=== PATIENT | female | born 1955 | race African-American/Black ===

== ENCOUNTER 2019-10-23 11:31 | Emergency (ER) | payer MEDICARE, SELFPAY ==
--- NOTE | ~2019-10-23 | XR_ITS ---
EXAMINATION: XR chest 2V DATE: 10/23/2019 12:40 INDICATION: Shortness of breath and chest pain. TECHNIQUE: Frontal and lateral views of the chest were obtained. COMPARISON: Chest 2 views 02/18/2019, chest CT 11/13/2018 FINDINGS: Again seen is a 5 mm nodule in right lower lobe, likely benign. There is mild atelectasis i n left lower lung zone. No pleural effusion or pneumothorax. The heart size is normal. There are craven ges of anterior fusion procedure in cervical spine. IMPRESSION: 1. Mild atelectasis in left lower lung zone. Reviewed, dictated and finalized at location A.
--- NOTE | ~2019-10-23 | NM_ITS ---
EXAMINATION: NM lung vent and perfusion DATE: 10/23/2019 14:29 INDICATION: Shortness of breath. TECHNIQUE: The patient breathed 15 mCi xenon-133 for ventilation images. 5.4 mCi Tc-99m MAA was admin istered intravenously for perfusion images. Scintigraphic images of the chest were obtained. COMPARISON: Chest 2 views 10/23/2019, ventilation perfusion scintigraphy 12/12/2018 FINDINGS: The single breath ventilation image demonstrates small defects in the upper lobes and lower lobes. Th ere is a moderate-sized defect in apicoposterior segment left upper lobe. Ventilation washout images show diffuse retention. Perfusion images show small defects in the upper lobes and lower lobes. Ther e is a moderate-sized defect in apicoposterior segment left upper lobe.. ] IMPRESSION: 1. Low probability for pulmonary embolism. Reviewed, dictated and finalized at location A.
[2019-10-23 11:34] VITALS: BP 146/74; PULSE 100; RESP 27; TEMP 36.4; O2SAT 96
--- NOTE | 2019-10-23 11:39 | ECG_ITS ---
Measurements Intervals [place] Rate: 92 P: 54 AR: 146 QRS: 39 QRSD: 88 T: 102 QT: 281 QTc: 348 Interpretive Statements SINUS RHYTHM VENTRICULAR PREMATURE COMPLEX BORDERLINE ST-T WAVE ABNORMALITY- ANT/INF LEADS BASELINE ARTIFACT- I, II, III, AVR, AVL, AVF BORDERLINE ECG Electronically Signed On 10-23-2019 11:48:45 CDT by Simeon Mistry D.O.
--- NOTE | 2019-10-23 11:43 | ED.SOB ---
HPI - SOB/Dyspnea General Chief Complaint: Shortness of Breath/Dyspnea Stated Complaint: chest pain Time Seen by Provider: 10/23/19 11:41 Source: patient Mode of arrival: ambulatory Limitations: no limitations History of Present Illness HPI Narrative: A 64 y/o female presents to the ED with c/o SOB. Pt states that she was getting dressed this morning when she suddenly had CP and was SOB. She used Symbicort and an inhaler with no relief. Pt is on home O2 when needed, but did not use her oxygen today. The CP is resolved in the ED, but she reports slight chest discomfort. She had a similar episode in November and was told it was an asthma attack. She has a PMHx of chronic seasonal allergies, COPD, asthma, and anxiety. Pt notes that her symptoms may be an anxiety attack. MD elicited complaint: shortness of breath Pertinent past history: COPD and asthma Onset (ago): hour(s) (Today) Timing: constant Severity: similar to previous episodes Relieving factors: nothing Known history of: COPD and asthma Associated symptoms: chest pain (Resolved) and other (Chest discomfort) Treatment prior to arrival: bronchodilator Related Data Home Medications Medication Instructions Recorded Confirmed albuterol sulfate 90 mcg/actuation 1 inhalation INHALATION Q4H 07/29/19 aerosol inhaler alprazolam 1 mg tablet 1 mg PO DAILY 07/29/19 budesonide-formoterol HFA 160 2 puff INHALATION Q12H 07/29/19 mcg-4.5 mcg/actuation aerosol inhaler cyclobenzaprine 10 mg tablet 10 mg PO TID 07/29/19 fluticasone propionate 50 1 spray NASAL DAILY 07/29/19 mcg/actuation nasal spray,suspension hydrochlorothiazide 25 mg tablet 25 mg PO DAILY 07/29/19 ibuprofen 800 mg tablet 800 mg PO TID 07/29/19 quinapril 40 mg tablet 40 mg PO DAILY 07/29/19 sertraline 50 mg tablet 50 mg PO DAILY 07/29/19 simvastatin 20 mg tablet 20 mg PO DAILY 07/29/19 ascorbate calcium (vitamin C) 500 500 mg PO DAILY 07/30/19 mg tablet herbal complex no.205 548 mg-558 tablet PO 07/30/19 mg tablet multivitamin 1 tablet PO DAILY 07/30/19 vitamin B complex 1 tablet PO DAILY 07/30/19 Allergies Allergy/AdvReac Type Severity Reaction Status Date / Time Macrolide Antibiotics Allergy Intermediate ITCHING Verified 10/23/19 11:40 amoxicillin Allergy Unknown ukn Verified 10/23/19 11:40 erythromycin base Allergy Unknown unk Verified 10/23/19 11:40 Penicillins Allergy Unknown unk Verified 10/23/19 11:40 Sulfa (Sulfonamide Allergy Unknown unk Verified 10/23/19 11:40 Antibiotics) iohexol Allergy Itching Verified 10/23/19 12:28 [From contrast - CT, X-RAY] Contrast Media Allergy Intermediate ITCHING Uncoded 02/18/19 15:39 NAPROXEN SODIUM Allergy Unknown rash Uncoded 02/18/19 15:39 Review of Systems Review of Systems: All systems reviewed & are unremarkable except as noted in HPI and below Constitutional: Constitutional: Denies chills, Denies fever(s) and Denies weakness Cardiovascular: Cardiovascular: Reports chest pain (Resolved) and Reports other (Chest discomfort) Respiratory: Respiratory: Reports dyspnea Psychiatric: Psychiatric: Reports anxiety PMFSH Past Medical History Medical History (Updated 10/23/19 @ 15:46 by Rosa Johnson MD) Anxiety Arthritis Asthma Bronchitis Chronic back pain Chronic obstructive pulmonary disease DDD (degenerative disc disease) Depression Essential hypertension Fibroids GERD (gastroesophageal reflux disease) Hiatal hernia Hyperlipidemia Hypoxia Ocular hypertension, unspecified eye On home O2 BETTY (obstructive sleep apnea) Post-menopausal Pulmonary embolism without acute cor pulmonale Pulmonary hypertension Seasonal allergies Sleep apnea Surgical History Surgical History (Updated 10/23/19 @ 11:52 by Alondra Cooley) History of cardiac catheterization History of dilatation and curettage History of hysterectomy History of spinal surgery Cervical fusion History of thyroidectomy Goiter removed History of tubal ligat
[2019-10-23 11:47] LABS: Basophils Percent Auto 0.5 % (0.2-1.2); Eosinophils Absolute Auto 0.2 K/mm3 (0-0.3); Eosinophils Percent Auto 2.8 % (0-4.4); Hematocrit 39.9 % (37.0-47.0); Hemoglobin 12.8 g/dL (12.0-15.0); Immature Granulocyte Absolute 0.01 K/mm3 (0.00-0.031); Immature Granulocyte Percent A 0.2 % (0-0.5); Lymphocytes Absolute Auto 2.65 K/mm3 (0.9-3.2); Mean Corpuscular HGB Conc 32.1 g/dl (32-36); Mean Corpuscular Hemoglobin 26.7 pg (26-34); Mean Corpuscular Volume 83.1 fl (80-100); Mean Platelet Volume 9.8 fl (7.4-10.4); Monocytes Absolute Auto 0.4 K/mm3 (0.1-0.6); Monocytes Percent Auto 6.1 % (2.6-8.5); Neutrophils Absolute Auto 2.8 K/mm3 (1.3-6.7); Neutrophils Percent Auto 46.4 % (45.5-73.1); Platelet Count Result 286 k/mm3 (150-375); Red Cell Distribution Width 13.7 % (11.5-14.5)
--- NOTE | 2019-10-23 11:56 | PC.NURSE ---
Called lab to add on Pt PTT INR D-Dimer. Called lab to add on Trop I Baseline BNP.
[2019-10-23 11:58] LABS: Blood Urea Nitrogen 20 mg/dL (7-17); Calcium 10.3 mg/dL (8.4-10.2); Carbon Dioxide 28 mmol/L (22-30); Chloride 99 mmol/L (98-107); Estimated CRCL calculation 44 ml/min; Estimated Glomerular Filt Rate > 60; Glucose 138 mg/dL (65-105); Potassium 3.1 mmol/L (3.4-5.0); Sodium 141 mmol/L (137-145)
[2019-10-23 12:12] LABS: Partial Thromboplastin Time 27.2 SECONDS (22.3-36.8); Prothrombin Time 12.5 Seconds (11.1-14.7)
[2019-10-23 12:15] LABS: D Dimer 0.53 ug/mL (<0.48)
[2019-10-23 12:19] LABS: NT Pro B Type Natriuretic Pept 21 PG/ML (5-100); Troponin I < 0.012 ng/mL (0.000-0.034)
[2019-10-23 12:22] LABS: Base Excess ABG 2.4 mEq/l (+/-2.0); Carboxyhemoglobin 0.3 % THb (0-2.0); Fractional Inspired Oxygen 21 %; HCO3 ABG 25.6 mEq/l (22.0-26.0); Methemoglobin ABG 0.2 %THb (0-1.5); Oxygen Saturation ABG 95.6 % (95.0-100.0); Oxyhemoglobin 94.1 % THb (90.0-100.0); PCO2 ABG 35.3 mmHg (35.0-45.0); PO2 ABG 72.5 mmHg (80.0-100.0); PO2 FiO2 Ratio Arterial Blood 3.45 %; Reduced Hemoglobin 5.4 %THb (0-5.0); Total Hemoglobin 12.8 g/dL (12.0-18.0); pH ABG 7.479 (7.350-7.450)
[2019-10-23 12:23] VITALS: BP 127/74; PULSE 89; RESP 12; O2SAT 96
[2019-10-23 12:23] LABS: Device ROOM AIR; Modified Allen's Test Pass; Site Drawn LEFT RADIAL
[2019-10-23] MEDS: LORAZEPAM INJ 2 MG/ML VIAL 0.5 MG IV PUSH (13:12)
[2019-10-23 15:10] VITALS: PULSE 91; RESP 11; O2SAT 97
[2019-10-23 15:11] LABS: Troponin I < 0.012 ng/mL (0.000-0.034)
== END 2019-10-23 16:11 | disposition home or self-care (01) ==
PROVIDERS: Emergency Provider General Practice; PCP Family Medicine
DX: R06.02 Shortness of breath (principal); J44.9 Chronic obstructive pulmonary disease, unspecified; F41.9 Anxiety disorder, unspecified; M19.90 Unspecified osteoarthritis, unspecified site; F32.9 Major depressive disorder, single episode, unspecified; K21.9 Gastro-esophageal reflux disease without esophagitis; I10 Essential (primary) hypertension; E78.5 Hyperlipidemia, unspecified; Z99.81 Dependence on supplemental oxygen; G47.33 Obstructive sleep apnea (adult) (pediatric); I27.20 Pulmonary hypertension, unspecified; H40.059 Ocular hypertension, unspecified eye; Z98.1 Arthrodesis status; E89.0 Postprocedural hypothyroidism; I49.3 Ventricular premature depolarization; R94.31 Abnormal electrocardiogram [ECG] [EKG]
CPT/HCPCS: 36415; 36600; 71046; 78582; 80048; 82375; 82805; 83050; 83880; 84484; 85025; 85380; 85610; 85730; 93005; 96374; 99284; A9540; A9558; J2060

== ENCOUNTER 2020-01-28 09:35 | Outpatient (CLI) | payer MEDICARE, SELFPAY ==
--- NOTE | ~2020-01-28 | XR_ITS ---
EXAMINATION: XR wrist LT min 3V DATE: 01/28/2020 10:14 INDICATION: Left wrist pain. TECHNIQUE: 4 views of left wrist were obtained. COMPARISON: Left wrist radiographs 12/10/2017 FINDINGS: Bone alignment is normal. No fracture. There is moderate osteoarthritis of triscaphe joint and mild osteoarthritis of first carpometacarpal joint. There is mild osteoarthritis of second throug h fifth metacarpophalangeal joints. IMPRESSION: 1. Stable polyarticular osteoarthritis. Reviewed, dictated and finalized at location A.
[2020-01-28 10:34] LABS: Alanine Aminotransferase 21 U/L (4-35); Albumin Level 4.7 g/dL (3.5-5.1); Alkaline Phosphatase 82 U/L (38-126); Aspartate Amino Transferase 29 U/L (14-36); Bilirubin,Total 0.4 mg/dL (0.2-1.3); Blood Urea Nitrogen 22 mg/dL (7-17); Calcium 9.7 mg/dL (8.4-10.2); Carbon Dioxide 33 mmol/L (22-30); Chloride 101 mmol/L (98-107); Cholesterol 196 mg/dL (0-200); Estimated Glomerular Filt Rate > 60; Glucose 103 mg/dL (65-105); HDL Direct 42 mg/dL; Potassium 3.7 mmol/L (3.4-5.0); Sodium 140 mmol/L (137-145); Triglycerides 139 mg/dL (<150)
[2020-01-28 10:45] LABS: LDL Cholesterol Direct 112 mg/dL
== END 2020-01-28 09:36 | disposition home or self-care (01) ==
LOC: ANHLAB 09:42
PROVIDERS: PCP Family Medicine; Visit Provider Family Medicine
DX: M19.032 Primary osteoarthritis, left wrist (principal); Z13.220 Encounter for screening for lipoid disorders; I10 Essential (primary) hypertension
CPT/HCPCS: 36415; 73110; 80053; 80061

== ENCOUNTER 2020-04-20 12:22 | Outpatient (CLI) | payer MEDICARE, SELFPAY ==
--- NOTE | ~2020-04-20 | DEXA_ITS ---
Bone Density Report Name: Krissy Oneal Age: 64 Sex: Female Ethnicity: Black Date of : 1955 Indication: postmenopausal; asthma or emphysema; hysterectomy; Referring Provider: Micha, Rosibel Lama Study: Bone densitometry was performed. Exam Date: April 20, 2020 Accession number: [id number] Bone Density: Region BMD T-score Z-score Classification AP Spine (L1, L2, L3) 1.129 1.0 2.1 Normal Femoral Neck (Left) 0.811 -0.3 0.3 Normal Total Hip (Left) 1.005 0.5 0.9 Normal Total Hip Bilateral Avg 1.008 0.6 0.9 Normal Femoral Neck (Right) 0.826 -0.2 0.4 Normal Total Hip (Right) 1.010 0.6 0.9 Normal World Health Organization criteria for BMD impression classify patients as: Normal (T-score at or above -1.0), Osteopenia (T-score between -1.0 and -2.5), or Osteoporosis (T-score at or below -2.5). 10-year Fracture Risk: FRAX not reported because: All T-scores for Spine Total, Hip Total, Femoral Neck at or above -1.0 Clinical Information Provided by Patient: Has used the following medications: Vitamin D Has the following medical conditions: Asthma or Emphysema, Hysterectomy Patient maximum height was 62 Menopause Age: 45 No regular weight bearing exercise Drinks caffeinated beverages Onset of menses at age 12 Number of children 2 Impression: The patient has normal bone mass. Discussion: BONE DENSITY IS ABOVE THE MINIMUM DESIRABLE LEVEL AT ALL SKELETAL SITES TESTED. This patient?s bone mineral density is above the minimum desirable level (T-score -1.0 or better) at all sites measured. The patient should follow a healthful lifestyle (good nutrition with adequate calcium and vitamin D, and appropriate weight-bearing exercise). Follow-Up: Consider repeating this study in 5 years or sooner if there is some new clinical indication. Reported by: ARIELLA on 04/20/2020 12:55:00 PM. Reviewed, dictated and finalized at location AAlina HU
--- NOTE | ~2020-04-20 | MM_ITS ---
EXAMINATION: MM screening [facility] BI w grady HISTORY: Screening TECHNIQUE: Craniocaudal and mediolateral oblique 3-D tomosynthesis images were obtained and synthetic 2-D images were generated. CAD analysis was submitted and interpreted. COMPARISON: Comparison to multiple prior studies sequentially, with oldest reviewed study dated 09/05. BREAST PARENCHYMAL COMPOSITION: There are scattered areas of fibroglandular density. FINDINGS: Stable appearance to bilateral breast masses. There is no evidence of suspicious mass, calc ification, or architectural distortion to suggest malignancy in either breast. There has been no susp icious interval change. IMPRESSION: 1. No mammographic evidence of malignancy. 2. Recommend routine screening mammography in one year. BI-RADS Category 2: Benign finding(s). Reviewed, dictated and finalized at location A.
== END 2020-04-20 12:23 | disposition home or self-care (01) ==
LOC: ANHIMG 12:24
PROVIDERS: PCP Family Medicine; Visit Provider Family Medicine
DX: Z12.31 Encounter for screening mammogram for malignant neoplasm of breast (principal); Z13.820 Encounter for screening for osteoporosis; M81.0 Age-related osteoporosis without current pathological fracture; Z78.0 Asymptomatic menopausal state
CPT/HCPCS: 77063; 77067; 77080

== ENCOUNTER 2020-09-11 12:31 | Emergency (ER) | payer MEDICARE, SELFPAY ==
[2020-09-11] VITALS (17 sets, daily range): BP systolic 111–135; BP diastolic 77–87; PULSE 78–94; RESP 14–31; TEMP 36.4; O2SAT 98–100
--- NOTE | ~2020-09-11 | XR_ITS ---
EXAMINATION: XR chest 1V DATE: 09/11/2020 14:10 INDICATION: Shortness of breath TECHNIQUE: frontal view of the chest was obtained. COMPARISON: Chest radiograph dated 10/23/2019 FINDINGS: The lungs are clear with no focal airspace opacities, pulmonary edema, pleural effusion or pneumothor ax. The cardiomediastinal silhouette is normal. Mild S-shaped curvature of the thoracolumbar spine wi th mild spondylosis. IMPRESSION: 1. No acute cardiopulmonary disease. Reviewed, dictated and finalized at location A. 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
--- NOTE | 2020-09-11 13:14 | ED.GENADULT ---
HPI - General Adult General Chief complaint: Upper Respiratory Infection <Jeanne Duarte PA-C - Last Filed: 09/11/20 15:26> Stated complaint: cough, dizzy <Jeanne Duarte PA-C - Last Filed: 09/11/20 15:26> Time Seen by Provider: 09/11/20 12:44 <Jeanne Duarte PA-C - Last Filed: 09/11/20 15:26> Source: patient <LUZ MARINA Louie Last Filed: 09/11/20 15:26> Mode of arrival: ambulatory <LUZ MARINA Louie Last Filed: 09/11/20 15:26> Limitations: no limitations <LUZ MARINA Louie Last Filed: 09/11/20 15:26> History of Present Illness HPI narrative: 65-year-old female who is here for evaluation of worsening shortness of breath. Started last week and became worse on Saturday. She has a history of asthma and has intermittent oxygen use at home. She states that she has a persistent cough, and is now unable to really walk across her small home without becoming short of breath. She also has loss of taste. Her was recently released from the hospital after having Covid, and her son-in-law is at home being treated for Covid. <Jeanne Duarte PA-C - Last Filed: 09/11/20 15:26> Onset (ago): day(s) <LUZ MARINA Louie Last Filed: 09/11/20 15:26> Associated symptoms: denies other symptoms <LUZ MARINA Louie Last Filed: 09/11/20 15:26> Related Data Home medications: Home Medications Medication Instructions Recorded Confirmed albuterol sulfate 90 mcg/actuation 1 inhalation INHALATION Q4H 07/29/19 01/28/20 aerosol inhaler alprazolam 1 mg tablet 1 mg PO DAILY 07/29/19 01/28/20 cyclobenzaprine 10 mg tablet 10 mg PO TID 07/29/19 01/28/20 fluticasone propionate 50 1 spray NASAL DAILY 07/29/19 01/28/20 mcg/actuation nasal spray,suspension hydrochlorothiazide 25 mg tablet 25 mg PO DAILY 07/29/19 01/28/20 ibuprofen 800 mg tablet 800 mg PO TID 07/29/19 01/28/20 quinapril 40 mg tablet 40 mg PO DAILY 07/29/19 01/28/20 sertraline 50 mg tablet 50 mg PO DAILY 07/29/19 01/28/20 simvastatin 20 mg tablet 20 mg PO DAILY 07/29/19 01/28/20 ascorbate calcium (vitamin C) 500 500 mg PO DAILY 07/30/19 01/28/20 mg tablet herbal complex no.205 548 mg-558 tablet PO 07/30/19 01/28/20 mg tablet multivitamin 1 tablet PO DAILY 07/30/19 01/28/20 vitamin B complex 1 tablet PO DAILY 07/30/19 01/28/20 <Jeanne Duarte PA-C - Last Filed: 09/11/20 15:26> Allergies/adverse reactions: Allergies Allergy/AdvReac Type Severity Reaction Status Date / Time Macrolide Antibiotics Allergy Intermediate ITCHING Verified 09/11/20 13:47 amoxicillin Allergy Unknown ukn Verified 09/11/20 13:47 erythromycin base Allergy Unknown unk Verified 09/11/20 13:47 naproxen Allergy Unknown Rash Verified 09/11/20 13:47 Penicillins Allergy Unknown unk Verified 09/11/20 13:47 Sulfa (Sulfonamide Allergy Unknown unk Verified 09/11/20 13:47 Antibiotics) iohexol Allergy Itching Verified 09/11/20 13:47 [From contrast - CT, X-RAY] Contrast Media Allergy Intermediate ITCHING Uncoded 01/28/20 11:05 <Jeanne Duarte PA-C - Last Filed: 09/11/20 15:26> Review of Systems Review of Systems: All systems reviewed & are unremarkable except as noted in HPI and below <Jeanne Duarte PA-C - Last Filed: 09/11/20 15:26> PMFSH Past Medical History Medical History: Medical History Anxiety Arthritis Asthma Bronchitis Chronic back pain Chronic obstructive pulmonary disease DDD (degenerative disc disease) Depression Essential hypertension Fibroids GERD (gastroesophageal reflux disease) Hiatal hernia Hyperlipidemia Hypoxia Ocular hypertension, unspecified eye On home O2 BETTY (obstructive sleep apnea) Post-menopausal Pulmonary embolism without acute cor pulmonale Pulmonary hypertension Seasonal allergies Sleep apnea <Jeanne Duarte PA-C - Last Filed: 09/11/20 15:26> Surgical History Surgical History: [place]
[2020-09-11] MEDS: ALBUTEROL SULFATE (*SP) AEROSOL 1 PUFF 4 PUFF INHALATION (13:53)
[2020-09-11] MEDS: ALBUTEROL SULFATE (*SP) INHALER 1 PUFF (13:53)
[2020-09-11 14:07] LABS: Basophils Percent Auto 0.4 % (0.2-1.2); Eosinophils Absolute Auto 0.1 K/mm3 (0-0.3); Eosinophils Percent Auto 2.1 % (0-4.4); Hematocrit 38.1 % (37.0-47.0); Hemoglobin 12.6 g/dL (12.0-15.0); Immature Granulocyte Absolute 0.03 K/mm3 (0.00-0.031); Immature Granulocyte Percent A 0.4 % (0-0.5); Lymphocytes Absolute Auto 2.19 K/mm3 (0.9-3.2); Lymphocytes Percent Auto 32.3 % (18.3-44.2); Mean Corpuscular HGB Conc 33.1 g/dl (32-36); Mean Corpuscular Volume 84.7 fl (80-100); Mean Platelet Volume 9.2 fl (7.4-10.4); Monocytes Absolute Auto 0.4 K/mm3 (0.1-0.6); Monocytes Percent Auto 5.9 % (2.6-8.5); Neutrophils Percent Auto 58.9 % (45.5-73.1); Platelet Count Result 302 k/mm3 (150-375); Red Cell Distribution Width 13.4 % (11.5-14.5); White Blood Count 6.8 K/mm3 (4.5-10.0)
[2020-09-11 14:19] LABS: Anion Gap 7 mmol/L (8-16); Blood Urea Nitrogen 14 mg/dL (7-17); Calcium 10.2 mg/dL (8.4-10.2); Carbon Dioxide 30 mmol/L (22-30); Chloride 98 mmol/L (98-107); Estimated CRCL calculation 55 ml/min; Estimated Glomerular Filt Rate > 60; Glucose 107 mg/dL (65-105); Potassium 3.3 mmol/L (3.4-5.0); Sodium 135 mmol/L (137-145)
[2020-09-13 19:18] LABS: SARS-CoV-2 RNA PCR Positive
== END 2020-09-11 16:02 | disposition home or self-care (01) ==
PROVIDERS: Physician Assistant; Emergency Provider General Practice; PCP Family Medicine
DX: U07.1 COVID-19 (principal); J32.9 Chronic sinusitis, unspecified; M19.90 Unspecified osteoarthritis, unspecified site; J44.9 Chronic obstructive pulmonary disease, unspecified; F32.9 Major depressive disorder, single episode, unspecified; F41.9 Anxiety disorder, unspecified; I10 Essential (primary) hypertension; K21.9 Gastro-esophageal reflux disease without esophagitis; E78.5 Hyperlipidemia, unspecified; G47.33 Obstructive sleep apnea (adult) (pediatric); Z86.711 Personal history of pulmonary embolism; H40.059 Ocular hypertension, unspecified eye; I27.20 Pulmonary hypertension, unspecified; Z98.1 Arthrodesis status; Z87.891 Personal history of nicotine dependence
CPT/HCPCS: 36415; 71045; 80048; 85025; 99283; A9270; C9803; U0003; U0005

== ENCOUNTER 2020-10-24 17:30 | Outpatient (CLI) | payer MEDICARE, SELFPAY | END 2020-10-24 17:31 | disposition home or self-care (01) | LOC: ANHCOVIDVC 17:31 | PROVIDERS: PCP Family Medicine | DX: Z23 Encounter for immunization (principal) | CPT/HCPCS: 0001A; 91300 ==

== ENCOUNTER 2020-11-14 17:21 | Outpatient (CLI) | payer MEDICARE, SELFPAY | END 2020-11-14 17:22 | disposition home or self-care (01) | LOC: ANHCOVIDVC 17:21 | PROVIDERS: PCP Family Medicine | DX: Z23 Encounter for immunization (principal) | CPT/HCPCS: 0002A; 91300 ==

== ENCOUNTER 2021-01-01 13:54 | Emergency (ER) | payer MEDICARE, SELFPAY ==
[2021-01-01 13:57] VITALS: BP 131/60; PULSE 97; RESP 16; TEMP 36.7; O2SAT 100
--- NOTE | 2021-01-01 13:58 | ED.EYEPROB ---
HPI - Eye Problem General Chief complaint: Eye Problems Stated complaint: R EYELID REDNESS/SWELLING Time Seen by Provider: 01/01/21 14:04 Source: patient and RN notes reviewed Mode of arrival: ambulatory Limitations: no limitations History of Present Illness HPI Narrative: 65 year old female presents with concern for right upper eyelid swelling. She reports a stye for which she has been using warm moist compresses and OTC stye medication, but the area keeps getting bigger. She denies any vision changes or drainage. She denies fever. MD chief complaint: eye redness Related Data Home Medications Medication Instructions Recorded Confirmed albuterol sulfate 90 mcg/actuation 1 inhalation INHALATION Q4H PRN 07/29/19 01/01/21 aerosol inhaler alprazolam 1 mg tablet 1 mg PO DAILY 07/29/19 01/01/21 cyclobenzaprine 10 mg tablet 10 mg PO TID 07/29/19 01/01/21 fluticasone propionate 50 1 spray NASAL DAILY 07/29/19 01/01/21 mcg/actuation nasal spray,suspension hydrochlorothiazide 25 mg tablet 25 mg PO DAILY 07/29/19 01/01/21 ibuprofen 800 mg tablet 800 mg PO TID 07/29/19 01/01/21 quinapril 40 mg tablet 40 mg PO DAILY 07/29/19 01/01/21 sertraline 50 mg tablet 50 mg PO DAILY 07/29/19 01/01/21 simvastatin 20 mg tablet 20 mg PO DAILY 07/29/19 01/01/21 ascorbate calcium (vitamin C) 500 500 mg PO DAILY 07/30/19 01/01/21 mg tablet multivitamin 1 tablet PO DAILY 07/30/19 01/01/21 vitamin B complex 1 tablet PO DAILY 07/30/19 01/01/21 Allergies Allergy/AdvReac Type Severity Reaction Status Date / Time Macrolide Antibiotics Allergy Intermediate ITCHING Verified 01/01/21 14:01 amoxicillin Allergy Unknown ukn Verified 01/01/21 14:01 erythromycin base Allergy Unknown unk Verified 01/01/21 14:01 naproxen Allergy Unknown Rash Verified 01/01/21 14:01 Penicillins Allergy Unknown unk Verified 01/01/21 14:01 Sulfa (Sulfonamide Allergy Unknown unk Verified 01/01/21 14:01 Antibiotics) iohexol Allergy Itching Verified 01/01/21 14:01 [From contrast - CT, X-RAY] Contrast Media Allergy Intermediate ITCHING Uncoded 01/01/21 14:01 Review of Systems Review of Systems: Narrative: CONSTITUTIONAL: Denies malaise, chills, sweats, or fever. EYES: Denies visual changes or discharge. She reports a stye on her right upper eyelid and eye redness. ENT: Denies rhinorrhea, congestion, sinus pain, otalgia or sore throat. CARDIOVASCULAR: Denies chest pain, palpitations, or edema. RESPIRATORY: Denies cough or dyspnea. SKIN: Denies rash or itching. MUSCULOSKELETAL: Denies myalgia. NEUROLOGIC: Denies headache. All systems reviewed & are unremarkable except as noted in HPI and below PMFSH Past Medical History Medical History Anxiety Arthritis Asthma Bronchitis Chronic back pain Chronic obstructive pulmonary disease DDD (degenerative disc disease) Depression Essential hypertension Fibroids GERD (gastroesophageal reflux disease) Hiatal hernia Hyperlipidemia Hypoxia Ocular hypertension, unspecified eye On home O2 BETTY (obstructive sleep apnea) Post-menopausal Pulmonary embolism without acute cor pulmonale Pulmonary hypertension Seasonal allergies Sleep apnea Surgical History Surgical History History of cardiac catheterization History of dilatation and curettage History of hysterectomy History of spinal surgery Cervical fusion History of thyroidectomy Goiter removed History of tubal ligation Family History Family History Father Family history of malignant neoplasm Mother Family history of kidney disease Social History Social History Years smoked: 30 Smoking status: Former smoker Tobacco type: cigarettes Second hand tobacco smoke exposure: No Smoking end date: 08/12/03 Gender identity (if verbalized by the
== END 2021-01-01 14:30 | disposition home or self-care (01) ==
PROVIDERS: Emergency Provider Nurse Practitioner; PCP Family Medicine
DX: H00.021 Hordeolum internum right upper eyelid (principal); Z87.891 Personal history of nicotine dependence; F41.9 Anxiety disorder, unspecified; M19.90 Unspecified osteoarthritis, unspecified site; J44.9 Chronic obstructive pulmonary disease, unspecified; F32.9 Major depressive disorder, single episode, unspecified; I10 Essential (primary) hypertension; K21.9 Gastro-esophageal reflux disease without esophagitis; E78.5 Hyperlipidemia, unspecified; G47.33 Obstructive sleep apnea (adult) (pediatric); Z86.711 Personal history of pulmonary embolism; Z99.81 Dependence on supplemental oxygen; E89.0 Postprocedural hypothyroidism
CPT/HCPCS: 99213; G0463

== ENCOUNTER 2021-03-07 10:11 | Emergency (ER) | payer MEDICARE, SELFPAY ==
--- NOTE | ~2021-03-07 | XR_ITS ---
XR finger 4th RT min 2V 03/07/2021 10:56 Indication: Right fourth finger pain Procedure: 4 views right fourth finger Comparison: No prior studies for comparison. Findings: There is a minimally displaced fracture dorsal base right fourth distal phalanx. Mild polya rticular osteoarthritis. Mild soft tissue swelling. No foreign bodies. Impression: 1: Minimally displaced fracture dorsal base right fourth distal phalanx. Reviewed, dictated and finalized at location A. Impression: 1: Minimally displaced fracture dorsal base right fourth distal phalanx.
[2021-03-07 10:36] VITALS: BP 123/81; PULSE 65; RESP 16; TEMP 36.2; O2SAT 100
--- NOTE | 2021-03-07 10:50 | ED.UPPEXIN ---
HPI - Extremity Injury (Upper) General Chief Complaint: Extremity Injury, Upper Stated Complaint: INJURED FINGER Time Seen by Provider: 03/07/21 11:28 Source: patient and RN notes reviewed Mode of arrival: ambulatory Limitations: no limitations History of Present Illness HPI narrative: 65-year-old female presents with concern for injury, pain to the fourth digit of the right hand. Reports 1 month ago she hit the finger on a trunk of a car, causing pain. Reports she had pain throughout the month. Reports she had the finger again on Saturday causing more pain and swelling. She reports difficulty bending the finger. She denies intervention. She denies decreased sensation, strength. Reports decreased range of motion. MD complaint: injury to: right and finger Related Data Home Medications Medication Instructions Recorded Confirmed albuterol sulfate 90 mcg/actuation 1 inhalation INHALATION Q4H PRN 07/29/19 01/01/21 aerosol inhaler alprazolam 1 mg tablet 1 mg PO DAILY 07/29/19 01/01/21 cyclobenzaprine 10 mg tablet 10 mg PO TID 07/29/19 01/01/21 fluticasone propionate 50 1 spray NASAL DAILY 07/29/19 01/01/21 mcg/actuation nasal spray,suspension hydrochlorothiazide 25 mg tablet 25 mg PO DAILY 07/29/19 01/01/21 ibuprofen 800 mg tablet 800 mg PO TID 07/29/19 01/01/21 quinapril 40 mg tablet 40 mg PO DAILY 07/29/19 01/01/21 sertraline 50 mg tablet 50 mg PO DAILY 07/29/19 01/01/21 simvastatin 20 mg tablet 20 mg PO DAILY 07/29/19 01/01/21 ascorbate calcium (vitamin C) 500 500 mg PO DAILY 07/30/19 01/01/21 mg tablet multivitamin 1 tablet PO DAILY 07/30/19 01/01/21 vitamin B complex 1 tablet PO DAILY 07/30/19 01/01/21 Allergies Allergy/AdvReac Type Severity Reaction Status Date / Time Macrolide Antibiotics Allergy Intermediate ITCHING Verified 01/01/21 14:01 amoxicillin Allergy Unknown ukn Verified 01/01/21 14:01 erythromycin base Allergy Unknown unk Verified 01/01/21 14:01 naproxen Allergy Unknown Rash Verified 01/01/21 14:01 Penicillins Allergy Unknown unk Verified 05/23/21 14:01 Sulfa (Sulfonamide Allergy Unknown unk Verified 01/01/21 14:01 Antibiotics) iohexol Allergy Itching Verified 01/01/21 14:01 [From contrast - CT, X-RAY] Contrast Media Allergy Intermediate ITCHING Uncoded 01/01/21 14:01 Review of Systems Review of Systems: Narrative: CONSTITUTIONAL: Denies malaise, chills, sweats, or fever. SKIN: Denies abrasions, abrasions MUSCULOSKELETAL: Reports pain, swelling, decreased range of motion to the distal fourth right digit NEUROLOGIC: Denies numbness, weakness All systems reviewed & are unremarkable except as noted in HPI and below PMFSH Past Medical History Medical History Anxiety Arthritis Asthma Bronchitis Chronic back pain Chronic obstructive pulmonary disease DDD (degenerative disc disease) Depression Essential hypertension Fibroids GERD (gastroesophageal reflux disease) Hiatal hernia Hyperlipidemia Hypoxia Ocular hypertension, unspecified eye On home O2 BETTY (obstructive sleep apnea) Post-menopausal Pulmonary embolism without acute cor pulmonale Pulmonary hypertension Seasonal allergies Sleep apnea Surgical History Surgical History History of cardiac catheterization History of dilatation and curettage History of hysterectomy History of spinal surgery Cervical fusion History of thyroidectomy Goiter removed History of tubal ligation Family History Family History Father Family history of malignant neoplasm Mother Family history of kidney disease Social History Social History Years smoked: 30 Smoking status: Former smoker Tobacco type: cigarettes Second hand tobacco smoke exposure: No Smoking end date: 08/12/03 Gender identity (if verbalized by the patie
== END 2021-03-07 11:43 | disposition home or self-care (01) ==
PROVIDERS: Emergency Provider Nurse Practitioner; PCP Family Medicine
DX: S62.634A Displaced fracture of distal phalanx of right ring finger, initial encounter for closed fracture (principal); W22.8XXA Striking against or struck by other objects, initial encounter; Z87.891 Personal history of nicotine dependence; F41.9 Anxiety disorder, unspecified; M19.90 Unspecified osteoarthritis, unspecified site; J44.9 Chronic obstructive pulmonary disease, unspecified; F32.9 Major depressive disorder, single episode, unspecified; I10 Essential (primary) hypertension; K21.9 Gastro-esophageal reflux disease without esophagitis; E78.5 Hyperlipidemia, unspecified; G47.33 Obstructive sleep apnea (adult) (pediatric); Z86.711 Personal history of pulmonary embolism; H40.059 Ocular hypertension, unspecified eye; I27.20 Pulmonary hypertension, unspecified
CPT/HCPCS: 29130; 73140; 99214; G0463

== ENCOUNTER 2021-03-12 13:11 | Emergency (ER) | payer MEDICARE, SELFPAY ==
[2021-03-12 13:14] VITALS: BP 107/76; PULSE 81; RESP 16; TEMP 36.8; O2SAT 100
--- NOTE | 2021-03-12 13:47 | ED.URI ---
HPI - URI/Sore Throat General Chief Complaint: Upper Respiratory Infection Stated Complaint: head congestion/cough Time Seen by Provider: 03/12/21 13:29 Source: patient and RN notes reviewed Mode of arrival: ambulatory Limitations: no limitations History of Present Illness HPI Narrative: Patient presents today complaining of a cough x10 days as been worsening since onset, postnasal drip. Patient believes the cough is worsened due to the postnasal drip. Denies shortness of breath. She does report some mild nasal congestion as well. She has been taking sinus medication as well as nasal spray, which does help her symptoms. History of asthma for which she uses Symbicort. She does have a rescue inhaler, but has not been using it. Denies fever. She has been vaccinated against COVID-19. MD elicited complaint: cough Related Data Home Medications Medication Instructions Recorded Confirmed albuterol sulfate 90 mcg/actuation 1 inhalation INHALATION Q4H PRN 07/29/19 03/12/21 aerosol inhaler alprazolam 1 mg tablet 1 mg PO DAILY 07/29/19 03/12/21 cyclobenzaprine 10 mg tablet 10 mg PO TID 07/29/19 03/12/21 fluticasone propionate 50 1 spray NASAL DAILY 07/29/19 03/12/21 mcg/actuation nasal spray,suspension hydrochlorothiazide 25 mg tablet 25 mg PO DAILY 07/29/19 03/12/21 ibuprofen 800 mg tablet 800 mg PO TID 07/29/19 03/12/21 quinapril 40 mg tablet 40 mg PO DAILY 07/29/19 03/12/21 sertraline 50 mg tablet 50 mg PO DAILY 07/29/19 03/12/21 simvastatin 20 mg tablet 20 mg PO DAILY 07/29/19 03/12/21 ascorbate calcium (vitamin C) 500 500 mg PO DAILY 07/30/19 03/12/21 mg tablet multivitamin 1 tablet PO DAILY 07/30/19 03/12/21 vitamin B complex 1 tablet PO DAILY 07/30/19 03/12/21 Allergies Allergy/AdvReac Type Severity Reaction Status Date / Time Macrolide Antibiotics Allergy Intermediate ITCHING Verified 03/08/21 14:18 amoxicillin Allergy Unknown ukn Verified 03/08/21 14:18 erythromycin base Allergy Unknown unk Verified 03/08/21 14:18 naproxen Allergy Unknown Rash Verified 03/08/21 14:18 Penicillins Allergy Unknown unk Verified 03/08/21 14:18 Sulfa (Sulfonamide Allergy Unknown unk Verified 03/08/21 14:18 Antibiotics) iohexol Allergy Itching Verified 03/08/21 14:18 [From contrast - CT, X-RAY] Contrast Media Allergy Intermediate ITCHING Uncoded 03/08/21 14:18 Review of Systems Review of Systems: CONSTITUTIONAL: Denies body aches, fever, chills, or sweats. EYES: Denies visual changes, redness, or discharge. ENT: Denies rhinorrhea, sore throat, or otalgia. + Congestion, postnasal drip CARDIOVASCULAR: Denies chest pain, palpitations, or edema. RESPIRATORY: Denies dyspnea. + Cough GASTROINTESTINAL: Denies abdominal pain, nausea, vomiting, or diarrhea. GENITOURINARY: Denies dysuria or hematuria. SKIN: Denies rash, itching, or wounds. MUSCULOSKELETAL: Denies back pain, joint pain, or myalgia. NEUROLOGIC: Denies headache, numbness, tingling, or weakness. PSYCH: Denies depression or anxiety. [facility] Past Medical History Medical History (Updated 03/12/21 @ 13:49 by Tressa Winkler, [facility], ) Anxiety Arthritis Asthma Bronchitis Chronic back pain Chronic obstructive pulmonary disease Coughing DDD (degenerative disc disease) Depression Essential hypertension Fibroids GERD (gastroesophageal reflux disease) Hiatal hernia High cholesterol Hyperlipidemia Hypertension Hypoxia Ocular hypertension, unspecified eye On home O2 BETTY (obstructive sleep apnea) Post-menopausal Pulmonary embolism without acute cor pulmonale Pulmonary hypertension Seasonal allergies Sleep apnea Wears glasses Surgical History Surgical History (Updated 03/08/21 @ 14:45 by Justina Baird, RT(R)) History of cardiac catheterization History of dilatation and curettage History of hysterectomy History of sinus surgery History of spinal surgery Cervical fusion History of thyroidectomy Goiter removed History of tubal ligation Family H
== END 2021-03-12 13:49 | disposition home or self-care (01) ==
PROVIDERS: Emergency Provider Nurse Practitioner; PCP Family Medicine
DX: J06.9 Acute upper respiratory infection, unspecified (principal); J45.901 Unspecified asthma with (acute) exacerbation; Z20.822 Contact with and (suspected) exposure to COVID-19; Z87.891 Personal history of nicotine dependence; M19.90 Unspecified osteoarthritis, unspecified site; J44.9 Chronic obstructive pulmonary disease, unspecified; I10 Essential (primary) hypertension; K21.9 Gastro-esophageal reflux disease without esophagitis; E78.00 Pure hypercholesterolemia, unspecified; E78.5 Hyperlipidemia, unspecified; H40.059 Ocular hypertension, unspecified eye; G47.33 Obstructive sleep apnea (adult) (pediatric); Z86.711 Personal history of pulmonary embolism; I27.20 Pulmonary hypertension, unspecified; F41.9 Anxiety disorder, unspecified; F32.9 Major depressive disorder, single episode, unspecified
CPT/HCPCS: 87426; 99213; C9803; G0463

== ENCOUNTER 2021-04-07 11:35 | Outpatient (CLI) | payer MEDICARE, SELFPAY ==
[2021-04-07 12:10] LABS: Basophils Percent Auto 0.7 % (0.2-1.2); Eosinophils Absolute Auto 0.2 K/mm3 (0-0.3); Eosinophils Percent Auto 2.8 % (0-4.4); Hematocrit 38.1 % (37.0-47.0); Hemoglobin 12.1 g/dL (12.0-15.0); Immature Granulocyte Absolute 0.02 K/mm3 (0.00-0.031); Immature Granulocyte Percent A 0.3 % (0-0.5); Lymphocytes Absolute Auto 2.17 K/mm3 (0.9-3.2); Lymphocytes Percent Auto 35.8 % (18.3-44.2); Mean Corpuscular HGB Conc 31.8 g/dl (32-36); Mean Corpuscular Hemoglobin 27.3 pg (26-34); Mean Platelet Volume 9.4 fl (7.4-10.4); Monocytes Absolute Auto 0.5 K/mm3 (0.1-0.6); Monocytes Percent Auto 7.4 % (2.6-8.5); Neutrophils Absolute Auto 3.2 K/mm3 (1.3-6.7); Platelet Count Result 308 k/mm3 (150-375); Red Blood Count 4.43 M/mm3 (4.2-5.4); Red Cell Distribution Width 13.5 % (11.5-14.5); White Blood Count 6.1 K/mm3 (4.5-10.0)
[2021-04-07 12:32] LABS: Alanine Aminotransferase 25 U/L (4-35); Albumin Level 4.8 g/dL (3.5-5.1); Alkaline Phosphatase 78 U/L (38-126); Anion Gap 9 mmol/L (8-16); Aspartate Amino Transferase 33 U/L (14-36); Bilirubin,Total 0.5 mg/dL (0.2-1.3); Blood Urea Nitrogen 17 mg/dL (7-17); Calcium 9.7 mg/dL (8.4-10.2); Carbon Dioxide 30 mmol/L (22-30); Chloride 96 mmol/L (98-107); Estimated Glomerular Filt Rate > 60; Glucose 114 mg/dL (65-110); Lipase 171 U/L (23-300); Potassium 4.2 mmol/L (3.4-5.0); Sodium 135 mmol/L (137-145)
== END 2021-04-07 11:36 | disposition home or self-care (01) ==
PROVIDERS: PCP Family Medicine; Visit Provider Family Medicine
DX: R19.7 Diarrhea, unspecified (principal); R10.13 Epigastric pain
CPT/HCPCS: 36415; 80053; 83690; 85025

== ENCOUNTER 2021-04-08 09:12 | Outpatient (CLI) | payer MEDICARE, SELFPAY | END 2021-04-08 09:13 | disposition home or self-care (01) | PROVIDERS: PCP Family Medicine; Visit Provider Family Medicine | DX: R19.7 Diarrhea, unspecified (principal) | CPT/HCPCS: 87045; 87324; 87427 ==

== ENCOUNTER 2021-04-12 10:28 | Outpatient (CLI) | payer MEDICARE, SELFPAY ==
[2021-04-15 04:48] LABS: H pylori Ag Stool Detected (Not Detected)
== END 2021-04-12 10:29 | disposition home or self-care (01) ==
PROVIDERS: PCP Family Medicine; Visit Provider Nurse Practitioner Family
DX: R76.8 Other specified abnormal immunological findings in serum (principal)
CPT/HCPCS: 87338

== ENCOUNTER 2021-05-18 13:36 | Inpatient (IN) | payer MEDICARE, SELFPAY ==
--- NOTE | ~2021-05-18 | CT_ITS ---
EXAMINATION: CT abdomen pelvis wo con DATE: 05/18/2021 15:25 INDICATION: Abdominal pain TECHNIQUE: Computed tomography (CT) of the abdomen and pelvis was performed without intravenous contr ast. Automated exposure control and iterative reconstruction technique were employed. The dose-length product was 444.48 mGy-cm. COMPARISON: None FINDINGS: Mild discoid atelectasis at the lingula. 7 mm nodule along the basilar left lower lobe. Heart size is normal. No pericardial or pleural effusion. There are a few fluid attenuation lesions, the 2 largest the right hepatic lobe measuring 4.2 cm and 3.2 cm most consistent with hepatic cysts or hemangiomas . There is intra and extra hepatic biliary ductal dilation with common bile duct measuring up to 1.7 cm in maximal diameter. Gallbladder mildly dilated to 3.5 cm in maximal diameter containing greater t west fluid attenuation bile and/or sludge. No pericholecystic inflammatory stranding to suggest acute cholecystitis. Pancreas, spleen, bilateral adrenal glands and kidneys are normal. Bowels including th e appendix are normal. Bladder is normal. The uterus is not identified and has likely been surgically resected. Minimal free fluid in the deep pelvis. No abscess or free intraperitoneal gas. No patholog ically enlarged abdominal or pelvic lymphadenopathy. Mild lumbar levoscoliosis with severe spondylosi s at L4-L5, otherwise mild thoracolumbar spondylosis. IMPRESSION: 1. Intra and extra hepatic biliary ductal dilation of indeterminate etiology. Correlate with liver fu nction tests and consider MRCP for further evaluation. 2. Indeterminate 7 mm nodule at the left lung base. Recommend 6-12 month follow-up low-dose noncontra st chest CT. Reviewed, dictated and finalized at location B. IMPRESSION: 1. Intra and extra hepatic biliary ductal dilation of indeterminate etiology. C orrelate with liver function tests and consider MRCP for further evaluation. 2. Indeterminate 7 mm nodule at the left lung base. Recommend 6-12 month follow -up low-dose noncontrast chest CT.
--- NOTE | ~2021-05-18 | MR_ITS ---
EXAMINATION: MR MRCP wo/w con/w 3D wo ind DATE: 05/19/2021 12:55 INDICATION: Acute pancreatitis. Dilated common duct. TECHNIQUE: Magnetic resonance imaging (MRI) of the abdomen was performed without and with 13 mL Multi Beena intravenous contrast. Sequences included coronal T2-weighted FS FSE, coronal T2-weighted FSE, a xial T1-weighted LAVA, coronal FS FIESTA, axial dual-echo T1-weighted SPGR, coronal lava-FLEX, sagitt al T2-weighted FSE, axial T2-weighted FSE, and axial DWI. Thick-slab T2-weighted FSE images were obta ined for magnetic resonance cholangiopancreatography (MRCP). Maximum intensity projection 3-D reconst ructions of the volumetric data were created by the technologist. Postcontrast sequences included cor onal LAVA-flex and time course of axial T1-weighted LAVA. COMPARISON: CT abdomen and pelvis 05/18/2021, ultrasound 05/19/2021 FINDINGS: ABDOMEN MRI: There are cysts in the liver measuring up to 3.9 cm. There is severe intrahepatic biliar y duct dilatation. The gallbladder is distended and contains sludge. No gallbladder wall thickening. There is extrahepatic biliary duct dilatation. The pancreatic duct is dilated to 6 mm. There is dilat ation of pancreatic duct sidechains. There is a 5 mm cystic lesion in the tail of the pancreas that l ikely communicates with the main duct. There is a 4.0 cm mass at the ampulla. There is an 11 mm cyst in the spleen. The adrenal glands are normal. There are cysts in the kidneys measuring up to 3 mm. Th ere are no dilated loops of bowel. ABDOMEN MRCP: The common duct is dilated to 1.7 cm. No choledocholithiasis. There is a mass in the paula ngs. IMPRESSION: 1. 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 Endoscopy is recommended. 2. 5 mm cystic lesion in the tail of the pancreas. The differential diagnosis includes pseudocyst, in traductal papillary mucinous neoplasm (IPMN), mucinous cystic neoplasm (MCN), serous cystadenoma, and neuroendocrine tumor. Consider abdomen MRI without and with contrast in one year. Reviewed, dictated and finalized at location A. IMPRESSION: 1. 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 Endoscopy is recommended. 2. 5 mm cystic lesion in the tail of the pancreas. The differential diagnosis i ncludes pseudocyst, intraductal papillary mucinous neoplasm (IPMN), mucinous cy stic neoplasm (MCN), serous cystadenoma, and neuroendocrine tumor. Consider abd omen MRI without and with contrast in one year.
--- NOTE | ~2021-05-18 | US_ITS ---
EXAMINATION: US abdomen limited EXAM DATE: 05/19/2021 11:47 INDICATION: Abdominal pain dilated gallbladder. TECHNIQUE: Multiple grayscale and Doppler images of the abdomen right upper quadrant were obtained (b y a technologist who performed the scan) and subsequently reviewed. Correlation is made to 05/18/2021. FINDINGS: Pancreatic body demonstrates mildly dilated pancreatic duct. The head and tail poorly visualized.. T he liver has normal echogenicity and contour. There are 2 liver lesions which are anechoic, consiste nt with cysts, measuring up to 3.8 cm. There is no evidence of intrahepatic biliary duct dilation. Portal venous flow was seen in the hepatopedal, normal direction and has normal Doppler waveform. No right-sided hydronephrosis. Common bile duct measures 18 mm, which is with severely distended. The gallbladder wall is normal in thickness, with expected amount of distention. No sonographic evidence of pericholecystic fluid. Th ere is no cholelithiases. Technologist performing exam reports patient did not demonstrate sonographi c May's sign. Please note that this sign is less reliable in patients who have received pain medi cation. IMPRESSION: Severely distended common bile duct. Mildly dilated pancreatic duct. Correlate with MRCP for possible pancreatic head mass. Reviewed, dictated and finalized at location G. IMPRESSION: Severely distended common bile duct. Mildly dilated pancreatic duct . Correlate with MRCP for possible pancreatic head mass.
[2021-05-18 13:39] VITALS: BP 116/78; PULSE 83; RESP 16; TEMP 36.8; O2SAT 100
[2021-05-18 14:00] LABS: Basophils Percent Auto 0.4 % (0.2-1.2); Eosinophils Absolute Auto 0.1 K/mm3 (0-0.3); Eosinophils Percent Auto 1.3 % (0-4.4); Hematocrit 36.1 % (37.0-47.0); Hemoglobin 11.7 g/dL (12.0-15.0); Immature Granulocyte Absolute 0.02 K/mm3 (0.00-0.031); Immature Granulocyte Percent A 0.3 % (0-0.5); Lymphocytes Absolute Auto 1.62 K/mm3 (0.9-3.2); Lymphocytes Percent Auto 21.8 % (18.3-44.2); Mean Corpuscular HGB Conc 32.4 g/dl (32-36); Mean Corpuscular Hemoglobin 27.3 pg (26-34); Mean Corpuscular Volume 84.1 fl (80-100); Mean Platelet Volume 9.1 fl (7.4-10.4); Monocytes Absolute Auto 0.5 K/mm3 (0.1-0.6); Monocytes Percent Auto 6.7 % (2.6-8.5); Neutrophils Absolute Auto 5.2 K/mm3 (1.3-6.7); Neutrophils Percent Auto 69.5 % (45.5-73.1); Platelet Count Result 355 k/mm3 (150-375); Red Blood Count 4.29 M/mm3 (4.2-5.4); Red Cell Distribution Width 13.6 % (11.5-14.5); White Blood Count 7.4 K/mm3 (4.5-10.0)
[2021-05-18 14:05] LABS: Alanine Aminotransferase 29 U/L (4-35); Albumin Level 5.1 g/dL (3.5-5.1); Alkaline Phosphatase 253 U/L (38-126); Anion Gap 12 mmol/L (8-16); Aspartate Amino Transferase 37 U/L (14-36); Bilirubin,Total 0.6 mg/dL (0.2-1.3); Blood Urea Nitrogen 11 mg/dL (7-17); Calcium 10.1 mg/dL (8.4-10.2); Carbon Dioxide 31 mmol/L (22-30); Chloride 98 mmol/L (98-107); Estimated CRCL calculation 48 ml/min; Estimated Glomerular Filt Rate > 60; Glucose 122 mg/dL (65-110); Potassium 2.9 mmol/L (3.4-5.0); Sodium 141 mmol/L (137-145)
[2021-05-18 14:35] LABS: Lipase 13689 U/L (23-300)
[2021-05-18 14:43] LABS: Add Urine Microscopic? NO; Appearance Urine Clear (Clear); Bilirubin Urine Negative (Negative); Blood Urine Negative (Negative); Color Urine Yellow (Yellow); Glucose Urine UA Negative (Negative); Ketones Urine Negative (Negative); Leukocyte Esterase Ur Negative LEU/UL (Negative); Nitrate Urine Negative (Negative); Protein Urine Negative (Negative); Specific Grav Ur 1.015 (1.001-1.035); Urobilinogen Urine Negative mg/dL (<2.0)
--- NOTE | 2021-05-18 15:04 | ED.ABDPAIN ---
HPI - Abdominal Pain General Chief Complaint: Abdominal Pain Stated Complaint: nausea, abd pain, diarrhea Time Seen by Provider: 05/18/21 15:00 Source: RN notes reviewed History of Present Illness HPI narrative: Patient presents emergency department from home for abdominal pain diarrhea. Patient she has had ongoing issues with abdominal pain for the past 6 months and is currently being followed by GI. She states that that for the past 4 days she has been having increasing diarrhea and that whenever she eats anything it goes straight through her as well as having abdominal pain in the epigastric region she denies any fevers or chills notes intermittent nausea but denies any vomiting denies any chest pain or shortness of breath Related Data Home Medications Medication Instructions Recorded Confirmed albuterol sulfate 90 mcg/actuation 1 inhalation INHALATION Q4H PRN 07/29/19 05/09/21 aerosol inhaler alprazolam 1 mg tablet 1 mg PO DAILY 07/29/19 05/09/21 fluticasone propionate 50 1 spray NASAL DAILY 07/29/19 05/09/21 mcg/actuation nasal spray,suspension hydrochlorothiazide 25 mg tablet 25 mg PO DAILY 07/29/19 05/09/21 ibuprofen 800 mg tablet 800 mg PO TID 07/29/19 05/09/21 quinapril 40 mg tablet 40 mg PO DAILY 07/29/19 05/09/21 sertraline 50 mg tablet 50 mg PO DAILY 07/29/19 05/09/21 simvastatin 20 mg tablet 20 mg PO DAILY 07/29/19 05/09/21 multivitamin 1 tablet PO DAILY 07/30/19 05/09/21 vitamin B complex 1 tablet PO DAILY 07/30/19 05/09/21 Allergies Allergy/AdvReac Type Severity Reaction Status Date / Time Macrolide Antibiotics Allergy Intermediate ITCHING Verified 05/18/21 14:59 amoxicillin Allergy Unknown ukn Verified 05/18/21 14:59 erythromycin base Allergy Unknown unk Verified 05/18/21 14:59 naproxen Allergy Unknown Rash Verified 05/18/21 14:59 Penicillins Allergy Unknown unk Verified 05/18/21 14:59 Sulfa (Sulfonamide Allergy Unknown unk Verified 05/18/21 14:59 Antibiotics) iohexol Allergy Itching Verified 05/18/21 14:59 [From contrast - CT, X-RAY] Contrast Media Allergy Intermediate ITCHING Uncoded 05/18/21 14:59 Review of Systems Review of Systems: Gen.: Denies fevers or chills ENT: Denies congestion Respiratory: Denies shortness of breath or cough CV: Denies chest pain or palpitations GI: See HPI denies burning, urgency, frequency or hematuria Musculoskeletal: Denies back pain or muscle pain Neuro: Denies numbness, tingling, weakness or focal weakness Skin: Denies rash Except as documented, all other systems reviewed and negative [facility] Past Medical History Medical History Abdominal bloating Anxiety Arthritis Asthma Bronchitis Chronic back pain Chronic obstructive pulmonary disease Coughing DDD (degenerative disc disease) Depression Essential hypertension Fibroids GERD (gastroesophageal reflux disease) Hiatal hernia High cholesterol Hyperlipidemia Hypertension Hypoxia Ocular hypertension, unspecified eye On home O2 BETTY (obstructive sleep apnea) Overweight (BMI 25.0-29.9) Post-menopausal Pulmonary embolism without acute cor pulmonale Pulmonary hypertension Seasonal allergies Sleep apnea Wears glasses Surgical History Surgical History History of cardiac catheterization History of dilatation and curettage History of hysterectomy History of sinus surgery History of spinal surgery Cervical fusion History of thyroidectomy Goiter removed History of tubal ligation Family History Family History Father Family history of malignant neoplasm Mother Family history of kidney disease Other Arthritis Hypertension Leukemia Social History Social History Years smoked: 30 Tobacco type: cigarettes Second hand tobacco smoke exposure: No Smoking end d
[2021-05-18 15:30] LABS: Magnesium 2.1 mg/dL (1.6-2.3)
[2021-05-18] MEDS: SODIUM CHLORIDE 0.9% IV 1,000 ML 999 ML IV CONT (15:46)
--- NOTE | 2021-05-18 17:15 | PM.IMHP ---
H&P: HPI History of Present Illness Date/Time: 05/18/21 17:15 [facility] Past Medical History Medical History (Updated 05/18/21 @ 17:16 by Taylor Rendon NP) Abdominal bloating Anxiety Arthritis Asthma Bronchitis Chronic back pain Coughing DDD (degenerative disc disease) Depression Essential hypertension Fibroids GERD (gastroesophageal reflux disease) Hiatal hernia High cholesterol Hyperlipidemia Hypertension Hypoxia On home O2 BETTY (obstructive sleep apnea) Overweight (BMI 25.0-29.9) Post-menopausal Pulmonary hypertension Seasonal allergies Sleep apnea Wears glasses Surgical History Surgical History History of cardiac catheterization History of dilatation and curettage History of hysterectomy History of sinus surgery History of spinal surgery Cervical fusion History of thyroidectomy Goiter removed History of tubal ligation Family History Family History Father Family history of malignant neoplasm Mother Family history of kidney disease Other Arthritis Hypertension Leukemia Social History Social History Years smoked: 30 Tobacco type: cigarettes Second hand tobacco smoke exposure: No Smoking end date: 08/12/03 Gender identity (if verbalized by the patient): Female Meds Home Medications and Allergies Home Medications Medication Instructions Recorded Confirmed Type albuterol sulfate 90 mcg/actuation 1 inhalation INHALATION Q4H PRN 07/29/19 05/09/21 History aerosol inhaler alprazolam 1 mg tablet 1 mg PO DAILY 07/29/19 05/09/21 History fluticasone propionate 50 1 spray NASAL DAILY 07/29/19 05/09/21 History mcg/actuation nasal spray,suspension hydrochlorothiazide 25 mg tablet 25 mg PO DAILY 07/29/19 05/09/21 History ibuprofen 800 mg tablet 800 mg PO TID 07/29/19 05/09/21 History quinapril 40 mg tablet 40 mg PO DAILY 07/29/19 05/09/21 History sertraline 50 mg tablet 50 mg PO DAILY 07/29/19 05/09/21 History simvastatin 20 mg tablet 20 mg PO DAILY 07/29/19 05/09/21 History multivitamin 1 tablet PO DAILY 07/30/19 05/09/21 History vitamin B complex 1 tablet PO DAILY 07/30/19 05/09/21 History budesonide-formoterol HFA 160 2 puff INHALATION Q12H #10.2 gm 01/28/20 05/09/21 Rx mcg-4.5 mcg/actuation aerosol inhaler omeprazole 40 mg capsule,delayed 40 mg PO DAILY #30 cap 04/11/21 05/09/21 Rx release Allergies Allergy/AdvReac Type Severity Reaction Status Date / Time Macrolide Antibiotics Allergy Intermediate ITCHING Verified 05/18/21 14:59 amoxicillin Allergy Unknown ukn Verified 05/18/21 14:59 erythromycin base Allergy Unknown unk Verified 05/18/21 14:59 naproxen Allergy Unknown Rash Verified 05/18/21 14:59 Penicillins Allergy Unknown unk Verified 05/18/21 14:59 Sulfa (Sulfonamide Allergy Unknown unk Verified 05/18/21 14:59 Antibiotics) iohexol Allergy Itching Verified 05/18/21 14:59 [From contrast - CT, X-RAY] Contrast Media Allergy Intermediate ITCHING Uncoded 05/18/21 14:59 Vital Signs Vital Signs - 24 hr 05/18/21 13:39 Temperature 36.8 C Pulse Rate 83 Respiratory Rate 16 Blood Pressure 116/78 Pulse Oximetry 100 H&P: Results Labs Labs: Short CBC 05/18/21 Range/Units 13:45 WBC 7.4 (4.5-10.0) K/mm3 Hgb 11.7 L (12.0-15.0) g/dL Hct 36.1 L (37.0-47.0) % Plt Count 355 (150-375) k/mm3 BMP 05/18/21 13:45 Sodium 141 Potassium 2.9 L Chloride 98 Carbon Dioxide 31 H BUN 11 D Creatinine 0.90 Glucose 122 H Calcium 10.1 Liver Function 05/18/21 Range/Units 13:45 Total Bilirubin 0.6 (0.2-1.3) mg/dL AST 37 H (14-36) U/L ALT 29 (4-35) U/L Alkaline Phosphatase 253 H (38-126) U/L Albumin 5.1 (3.5-5.1) g/dL Urine 05/18/21 Range/Units 14:22 Urine Color Yellow (Yellow) Urine Appearance Clear (Ashlie
[2021-05-18 17:42] VITALS: BP 112/78; PULSE 70; RESP 16; O2SAT 98
--- NOTE | 2021-05-18 17:46 | ADMGEN ---
This patient, Krissy Oneal, was admitted to Medical Room 349-01. Patient/family oriented to hospital policies and general routines including ID bracelet, bed and alarms, visiting hours, pain management, procedures, bathroom and other care routines, personal items, smoking policy, room service/diet, and visiting hours. Information on how to activate the Rapid Response Team has been discussed. Patient/Family are encouraged to report perceived risks to care and to ask questions if they do not understand what they are told or what they should do.
[2021-05-18 18:23] VITALS: BP 107/82; PULSE 80; RESP 18; TEMP 36.5
--- NOTE | 2021-05-18 19:16 | PM.IMHP ---
H&P: HPI History of Present Illness Date/Time: 05/18/21 19:16 this is a 65-year-old female patient who came to the emergency room due to nausea abdominal pain and diarrhea. The patient stated that she has been having issues for over 6 months. She stated that she was supposed to get scheduled for a colonoscopy and an EGD. The patient stated that she has been treated for possible H pylori eye. The patient stated over the last 4 days she has been having increasing diarrhea. She stated that every time she eats she has to go to the bathroom have diarrhea no matter what she eats. The patient is having some epigastric discomfort. She also feels very bloated. The patient stated that she has p.r.n. oxygen at home but does not use it very often. Abdominal CT was read as the following 1. Intra and extra hepatic biliary ductal dilation of indeterminate etiology. Correlate with liver function tests and consider MRCP for further evaluation. 2. Indeterminate 7 mm nodule at the left lung base. Recommend 6-12 month follow-up low-dose noncontrast chest CT. GI has been consulted. The patient was given IV fluids and supplement with potassium. Potassium 2.9. Alkaline phosphatase 253. Lipase 13,689. Potassium 2.9. Patient is admitted to observation status the date of service of 05/18/2021 Chief Complaint: =ABD PAIN Review of Systems Review of Systems: All systems reviewed & are unremarkable except as noted in HPI and below Constitutional: Constitutional: Reports as per HPI and Reports no additional constitutional complaints Eyes: Eyes: Reports as per HPI and Reports no additional eye complaints ENT: Reports system reviewed and no additional complaints, except as documented and Reports Normal hearing present Cardiovascular: Cardiovascular: Reports no additional cardiovascular complaints Respiratory: Respiratory: Reports no additional respiratory complaints and Reports no additional respiratory complaints Gastrointestinal: Gastrointestinal: Reports as per HPI and Reports no additional gastrointestinal complaints Musculoskeletal: Musculoskeletal: Reports no additional musculoskeletal complaints Integumentary/Breasts: Skin/Breast: Reports system reviewed and no additional complaints, except as docu and Reports as per HPI Neurologic: Reports system reviewed and no additional complaints, except as documented, Reports as per HPI and Reports Normal hearing present Psychiatric: Psychiatric: Reports no additional psychiatric complaints and Reports as per HPI Endocrine: Endocrine: Reports no additional endocrine complaints Hematologic/Lymphatic: Hematologic/Lymphatic: Reports no additional hematologic/lymphatic complaints Allergic/Immunologic: Allergic/Immunologic: Reports no additional allergic/immunologic complaints [facility] Past Medical History Medical History (Updated 05/18/21 @ 19:39 by Taylor Rendon NP) Abdominal bloating Anxiety Arthritis Asthma Bronchitis Chronic back pain Coughing DDD (degenerative disc disease) Depression Essential hypertension Fibroids GERD (gastroesophageal reflux disease) Hiatal hernia High cholesterol Hyperlipidemia Hypertension Hypoxia On home O2 BETTY (obstructive sleep apnea) No longer uses CPAP Overweight (BMI 25.0-29.9) Post-menopausal Pulmonary hypertension Seasonal allergies Sleep apnea Wears glasses Surgical History Surgical History History of cardiac catheterization History of dilatation and curettage History of hysterectomy History of sinus surgery History of spinal surgery Cervical fusion History of thyroidectomy Goiter removed History of tubal ligation Family History Family History Father Family history of malignant neoplasm Mother Family history of kidney disease Other Arthritis Hypertension Leukemia Social History Social History (Updated 05/18/21 @ 19:35 by Kassi
[2021-05-18 20:13] VITALS: BP 119/64; PULSE 68; RESP 18; TEMP 36.2; O2SAT 99
[2021-05-18] MEDS: MORPHINE SULFATE (*CRX) 2 MG/ML INJ IV PUSH (20:23)
[2021-05-18] MEDS: SODIUM CHLORIDE 0.9% IV 1,000 ML 125 ML IV CONT (22:31)
[2021-05-18] MEDS: LORazepam INJ (*CRX) 2 MG/ML VIAL 0.5 MG IV PUSH (22:32)
[2021-05-18 22:56] LABS: Anion Gap 10 mmol/L (8-16); Blood Urea Nitrogen 10 mg/dL (7-17); Calcium 9.7 mg/dL (8.4-10.2); Carbon Dioxide 25 mmol/L (22-30); Chloride 102 mmol/L (98-107); Estimated CRCL calculation 60 ml/min; Estimated Glomerular Filt Rate > 60; Glucose 121 mg/dL (65-110); Potassium 3.1 mmol/L (3.4-5.0); Sodium 137 mmol/L (137-145)
[2021-05-18 23:43] VITALS: O2SAT 97
[2021-05-19 03:52] VITALS: BP 119/70; PULSE 77; RESP 16; TEMP 36.3; O2SAT 99
[2021-05-19 05:55] LABS: Basophils Percent Auto 0.3 % (0.2-1.2); Eosinophils Absolute Auto 0.1 K/mm3 (0-0.3); Eosinophils Percent Auto 1.8 % (0-4.4); Hematocrit 30.7 % (37.0-47.0); Immature Granulocyte Absolute 0.02 K/mm3 (0.00-0.031); Immature Granulocyte Percent A 0.3 % (0-0.5); Lymphocytes Absolute Auto 1.52 K/mm3 (0.9-3.2); Lymphocytes Percent Auto 24.6 % (18.3-44.2); Mean Corpuscular HGB Conc 32.6 g/dl (32-36); Mean Corpuscular Hemoglobin 27.1 pg (26-34); Mean Corpuscular Volume 83.2 fl (80-100); Monocytes Absolute Auto 0.5 K/mm3 (0.1-0.6); Monocytes Percent Auto 7.3 % (2.6-8.5); Neutrophils Absolute Auto 4.1 K/mm3 (1.3-6.7); Neutrophils Percent Auto 65.7 % (45.5-73.1); Platelet Count Result 318 k/mm3 (150-375); Red Blood Count 3.69 M/mm3 (4.2-5.4); Red Cell Distribution Width 13.4 % (11.5-14.5); White Blood Count 6.2 K/mm3 (4.5-10.0)
[2021-05-19 06:04] LABS: Lactic Acid Reflex 0.6 mmol/L (0.7-2.1)
[2021-05-19 06:43] LABS: Alanine Aminotransferase 23 U/L (4-35); Albumin Level 4.1 g/dL (3.5-5.1); Alkaline Phosphatase 205 U/L (38-126); Anion Gap 8 mmol/L (8-16); Aspartate Amino Transferase 28 U/L (14-36); Bilirubin,Total 0.8 mg/dL (0.2-1.3); Blood Urea Nitrogen 8 mg/dL (7-17); Calcium 9.2 mg/dL (8.4-10.2); Carbon Dioxide 26 mmol/L (22-30); Chloride 104 mmol/L (98-107); Estimated CRCL calculation 60 ml/min; Estimated Glomerular Filt Rate > 60; Glucose 114 mg/dL (65-110); Lactate Dehydrogenase 302 U/L (313-618); Magnesium 1.7 mg/dL (1.6-2.3); Potassium 3.1 mmol/L (3.4-5.0); Sodium 138 mmol/L (137-145)
[2021-05-19 07:09] LABS: Lipase 9583 U/L (23-300)
[2021-05-19] MEDS: SODIUM CHLORIDE 0.9% IV 1,000 ML 125 ML IV CONT ×2 (08:40→08:41)
[2021-05-19 09:00] VITALS: O2SAT 92
--- NOTE | 2021-05-19 10:21 | PM.IMPN ---
Progress Note: A&P Assessment and Plan (1) Acute pancreatitis: Code(s): K85.90 - Acute pancreatitis without necrosis or infection, unspecified Status: Acute Assessment and Plan: Lipase [address]284-->9583 CT of the abdomen-->intra and extra hepatic biliary ductal dilation of indeterminate etiology Patient remains NPO at this time. Continue with anti nausea and pain medication GI following, recommendations appreciated MRCP-->mrcp revealed mass in ampulla but also extending into lumen. plan for EGD on Saturday may need ercp as well Clears (2) Acute hypokalemia: Code(s): E87.6 - Hypokalemia Status: Acute Assessment and Plan: K+ 3.1 Will replace Monitor an replace as necessary (3) BETTY (obstructive sleep apnea): Code(s): G47.33 - Obstructive sleep apnea (adult) (pediatric) Status: Acute Assessment and Plan: No longer uses a CPAP (4) Asthma: Code(s): J45.909 - Unspecified asthma, uncomplicated Status: Acute Assessment and Plan: Continue with home inhaler (5) Hyperlipidemia: Code(s): E78.5 - Hyperlipidemia, unspecified Status: Acute Assessment and Plan: Resume simvastatin (6) Hypertension: Code(s): I10 - Essential (primary) hypertension Status: Chronic Assessment and Plan: BP stable Resume home meds Monitor (7) Anxiety: Code(s): F41.9 - Anxiety disorder, unspecified Status: Chronic Assessment and Plan: P.r.n. Ativan Supportive care Subjective Date/time seen: 05/19/21 10:21 Review of Systems Review of Systems: All systems reviewed & are unremarkable except as noted in HPI and below Exam Const: General: no acute distress, alert and awake Orientation/consciousness: patient oriented x3 HENMT: Head: normocephalic and atraumatic Ears: hearing grossly normal bilaterally and external ears normal Face and sinus: face symmetric Mouth: Yes Normal oral and palatal mucosa present Neck: Neck: full ROM, trachea midline and no JVD Chest: Chest palpation & inspection: normal inspection of the chest Resp: Effort & Inspection: normal respiratory effort Auscultation: clear to auscultation bilaterally Cardio: Jugular venous distension: no JVD Rate: regular rate Rhythm: regular rhythm Heart sounds: S1 normal heart sound present and S2 normal heart sound present GI: GI Palp: Yes abdominal tenderness and Yes Soft to palpation Auscultation: normal bowel sounds Rectal Exam: deferred : General: Yes no CVA tenderness Back/Spine/Pelvis: Back: no CVA tenderness Skin: General skin exam: normal color Rashes: no rashes Neuro: General: patient oriented x3 and CN's II-XI intact bilaterally Speech: normal speech Psych: Appearance: grossly normal Affect: normal affect Judgement: Good judgement present (Psych) Objective Data Vital Signs Vital Signs: Vital Signs - 24 hr 05/18/21 13:39 05/18/21 17:42 05/18/21 18:23 Temperature 36.8 C 36.5 C Pulse Rate 83 70 80 Respiratory Rate 16 16 18 Blood Pressure 116/78 112/78 107/82 Pulse Oximetry 100 98 05/18/21 20:13 05/18/21 23:43 05/19/21 03:52 Temperature 36.2 C L 36.3 C L Pulse Rate 68 77 Respiratory Rate 18 16 Blood Pressure 119/64 119/70 Pulse Oximetry 99 97 99 05/19/21 09:00 Temperature Pulse Rate Respiratory Rate Blood Pressure Pulse Oximetry 92 Intake/Output Intake/Output: Intake & Output 05/16/21 05/17/21 05/18/21 05/19/21 23:59 23:59 23:59 23:59 Intake Total 1999 Balance 1999 Meds/Results Medications: Active Medications Generic Name Dose Route Start Last Admin Trade Name Freq PRN Reason Stop Dose Admin Albuterol 1 puff 05/18/21 21:57 Albuterol Sulfate (*Sp) Aerosol 1 Puff INHALATION Q4H PRN Shortness Of Breath Budesonide/Formoterol Fumarate 2 puff 05/19/21 08:00 05/19/21 08:57 Budesonide/Form 160-4.5 Mcg (*Sp) INHALATION 2 puff Q12HRT ETELVINA Administr
[2021-05-19 13:00] VITALS: BMI 27.0
[2021-05-19 14:00] VITALS: BP 138/70; PULSE 68; RESP 18; TEMP 36.8; O2SAT 94
--- NOTE | 2021-05-19 14:24 | WPDGICN ---
Assessment and Plan Assessment and plan (1) Acute pancreatitis: Code(s): K85.90 - Acute pancreatitis without necrosis or infection, unspecified Status: Acute Assessment and Plan: first episode, she has been symptomatic for over 3 months never had pancreatitis imaging mrcp revealed mass in ampulla but also extending into lumen. 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 pylori): Code(s): A04.8 - Other specified bacterial intestinal infections Status: Acute GI Consult Note Consult date/time: 05/19/21 14:24 Reason for consult: diarrhea, abdominal pain, pancreatitis, dilated bile duct HPI: Krissy Oneal is a 65 year old female who saw our nurse practitioner in the office about 10 days ago because epigastric pain and bloating that has been going on for more than three months. She also was having some nausea and vague upper abdominal pain, her PCP checked serology for H pylori that was positive also she used Pepto-bismo, tums and gasx with no relief and finally came to see us. We ordered stool antigen for H pylori that was positive and she completed 10 days therapy with Tetracycline, flagyl and bismuth along with omeprazole 40 mg daily. Her last EGD in 2019 with gastritis and duodenitis, colonoscopy 2013. She came here because diarrhea that started after she completed her treatment but also some nausea and still abdominal discomfort. Blood work revealed lipase 13k, transaminases 20-30, AP 200. She denies alcohol abuse, previous history of pancreatitis or liver disease. She had CT scan a/p that was reviewed and showed intra and extra hepatic biliary ductal dilation of indeterminate etiology and just completed MRCP. Review of Systems Constitutional: Constitutional: Denies chills Eyes: Eyes: Reports no additional eye complaints ENT: Reports Normal hearing present Cardiovascular: Cardiovascular: Reports no additional cardiovascular complaints Respiratory: Respiratory: Reports no additional respiratory complaints Gastrointestinal: Gastrointestinal: Reports abdominal pain and Reports nausea Genitourinary: Genitourinary: Denies hematuria Musculoskeletal: Musculoskeletal: Denies neck pain Integumentary/Breasts: Skin/Breast: Denies dry skin Neurologic: Reports system reviewed and no additional complaints, except as documented Psychiatric: Psychiatric: Reports no additional psychiatric complaints [facility] Past Medical History Medical History (Updated 05/19/21 @ 14:40 by Leeroy Lyle MD) Abdominal bloating Anxiety Arthritis Asthma Bronchitis Chronic back pain Coughing DDD (degenerative disc disease) Depression Diarrhea Essential hypertension Fibroids GERD (gastroesophageal reflux disease) Helicobacter pylori (H. pylori) Hiatal hernia High cholesterol Hyperlipidemia Hypertension Hypoxia Nausea On home O2 BETTY (obstructive sleep apnea) No longer uses CPAP Overweight (BMI 25.0-29.9) Ana-ampullary neoplasm Post-menopausal Pulmonary hypertension Seasonal allergies Sleep apnea Upper abdominal pain Wears glasses Surgical History Surgical History History of cardiac catheterization Histor
[2021-05-19] MEDS: SIMVASTATIN 20 MG TABLET PO (20:30)
[2021-05-19] MEDS: ALPRAZolam (*CRX) 0.5 MG TABLET 1 MG PO (20:31)
[2021-05-19] MEDS: SERTRALINE HCL 50 MG TABLET PO (20:31)
[2021-05-19 20:59] VITALS: BP 136/81; PULSE 72; RESP 16; TEMP 36.4; O2SAT 100
[2021-05-19 23:18] VITALS: O2SAT 94
[2021-05-20] MEDS: SODIUM CHLORIDE 0.9% IV 1,000 ML 125 ML IV CONT ×3 (01:40→18:15)
[2021-05-20 05:47] LABS: Hematocrit 30.4 % (37.0-47.0); Hemoglobin 9.9 g/dL (12.0-15.0); Mean Corpuscular HGB Conc 32.6 g/dl (32-36); Mean Corpuscular Hemoglobin 26.8 pg (26-34); Mean Corpuscular Volume 82.4 fl (80-100); Mean Platelet Volume 9.4 fl (7.4-10.4); Platelet Count Result 344 k/mm3 (150-375); Red Blood Count 3.69 M/mm3 (4.2-5.4); Red Cell Distribution Width 13.6 % (11.5-14.5); White Blood Count 5.5 K/mm3 (4.5-10.0)
[2021-05-20 05:55] VITALS: BP 139/73; PULSE 76; RESP 16; TEMP 36.2; O2SAT 99
[2021-05-20 07:18] LABS: Anion Gap 9 mmol/L (8-16); Blood Urea Nitrogen 5 mg/dL (7-17); Calcium 9.3 mg/dL (8.4-10.2); Carbon Dioxide 24 mmol/L (22-30); Chloride 110 mmol/L (98-107); Estimated CRCL calculation 60 ml/min; Estimated Glomerular Filt Rate > 60; Glucose 109 mg/dL (65-110); Potassium 3.4 mmol/L (3.4-5.0); Sodium 143 mmol/L (137-145)
[2021-05-20 07:32] LABS: Lipase 12227 U/L (23-300)
[2021-05-20] MEDS: FLUTICASONE PROPIONATE 0.05% NA SPR 16 GM BTL (*BKC) 1 SPRAY NASAL (08:28)
--- NOTE | 2021-05-20 10:35 | PM.IMPN ---
Progress Note: A&P Assessment and Plan (1) Acute pancreatitis: Code(s): K85.90 - Acute pancreatitis without necrosis or infection, unspecified Status: Acute Assessment and Plan: Lipase 58316-->9583-->11522 CT of the abdomen-->intra and extra hepatic biliary ductal dilation of indeterminate etiology Continue with anti nausea and pain medication GI following, recommendations appreciated MRCP-->mrcp revealed mass in ampulla but also extending into lumen. plan for EGD on Saturday may need ercp as well Clears (2) Acute hypokalemia: Code(s): E87.6 - Hypokalemia Status: Acute Assessment and Plan: K+ 3.1-->3.4 today Will replace Monitor an replace as necessary (3) BETTY (obstructive sleep apnea): Code(s): G47.33 - Obstructive sleep apnea (adult) (pediatric) Status: Acute Assessment and Plan: No longer uses a CPAP (4) Asthma: Code(s): J45.909 - Unspecified asthma, uncomplicated Status: Acute Assessment and Plan: Continue with home inhaler (5) Hyperlipidemia: Code(s): E78.5 - Hyperlipidemia, unspecified Status: Acute Assessment and Plan: Resume simvastatin (6) Hypertension: Code(s): I10 - Essential (primary) hypertension Status: Chronic Assessment and Plan: BP stable Resume home meds Monitor (7) Anxiety: Code(s): F41.9 - Anxiety disorder, unspecified Status: Chronic Assessment and Plan: P.r.n. Ativan Supportive care Subjective Date/time seen: 05/20/21 10:35 Interval history: 05/19 pt seen and evaluated; VS, labs and diagnostic reports reviewed; no acute events overnight; complains of abdominal tenderness, nausea and diarrhea / pt seen this a.m.; still complaints of mild abdominal tenderness; +nausea and diarrhea Review of Systems Review of Systems: All systems reviewed & are unremarkable except as noted in HPI and below Exam Const: General: no acute distress, alert and awake Orientation/consciousness: patient oriented x3 HENMT: Head: normocephalic and atraumatic Ears: hearing grossly normal bilaterally and external ears normal Face and sinus: face symmetric Mouth: Yes Normal oral and palatal mucosa present Neck: Neck: full ROM, trachea midline and no JVD Chest: Chest palpation & inspection: normal inspection of the chest Resp: Effort & Inspection: normal respiratory effort Auscultation: clear to auscultation bilaterally Cardio: Jugular venous distension: no JVD Rate: regular rate Rhythm: regular rhythm Heart sounds: S1 normal heart sound present and S2 normal heart sound present GI: Auscultation: normal bowel sounds Rectal Exam: deferred : General: Yes no CVA tenderness Back/Spine/Pelvis: Back: no CVA tenderness Skin: General skin exam: normal color Rashes: no rashes Neuro: General: patient oriented x3 and CN's II-XI intact bilaterally Speech: normal speech Psych: Appearance: grossly normal Affect: normal affect Judgement: Good judgement present (Psych) Objective Data Vital Signs Vital Signs: Vital Signs - 24 hr 05/19/21 14:00 05/19/21 20:59 05/19/21 23:18 Temperature 36.8 C 36.4 C L Pulse Rate 68 72 Respiratory Rate 18 16 Blood Pressure 138/70 136/81 Pulse Oximetry 94 100 94 05/20/21 05:55 Temperature 36.2 C L Pulse Rate 76 Respiratory Rate 16 Blood Pressure 139/73 Pulse Oximetry 99 Intake/Output Intake/Output: Intake & Output 05/17/21 05/18/21 05/19/21 05/20/21 23:59 23:59 23:59 23:59 Intake Total 2600 1560 Balance 2600 1560 Meds/Results Medications: Active Medications Generic Name Dose Route Start Last Admin Trade Name Freq PRN Reason Stop Dose Admin Albuterol 1 puff 05/18/21 21:57 Albuterol Sulfate (*Sp) Aerosol 1 Puff INHALATION Q4H PRN Shortness Of Breath Alprazolam 1 mg 05/19/21 21:00 05/19/21 20:31 Alprazolam (*Crx) 0.5 Mg Tablet PO 1 mg HS ETELVINA Administration Bu
[2021-05-20 14:00] VITALS: BP 130/70; PULSE 78; RESP 18; TEMP 36.6; O2SAT 100
[2021-05-20] MEDS: MORPHINE SULFATE (*CRX) 2 MG/ML INJ IV PUSH ×3 (14:06→23:27)
[2021-05-20] MEDS: LOPERAMIDE HCL 2 MG CAPSULE PO ×2 (17:05→23:27)
[2021-05-20 19:28] VITALS: BP 143/89; PULSE 69; RESP 16; TEMP 36.4; O2SAT 100
[2021-05-20] MEDS: SIMVASTATIN 20 MG TABLET PO (20:38)
[2021-05-20] MEDS: ALPRAZolam (*CRX) 0.5 MG TABLET 1 MG PO (20:38)
[2021-05-20] MEDS: SERTRALINE HCL 50 MG TABLET PO (20:38)
[2021-05-20 20:55] VITALS: O2SAT 99
[2021-05-21] MEDS: SODIUM CHLORIDE 0.9% IV 1,000 ML 125 ML IV CONT ×3 (01:54→19:52)
[2021-05-21] MEDS: MORPHINE SULFATE (*CRX) 2 MG/ML INJ IV PUSH ×3 (04:11→17:30)
[2021-05-21 06:00] VITALS: BP 140/77; PULSE 88; RESP 16; TEMP 36.4; O2SAT 100
[2021-05-21] MEDS: LOPERAMIDE HCL 2 MG CAPSULE PO ×2 (06:00→12:08)
[2021-05-21 06:04] LABS: Hematocrit 28.5 % (37.0-47.0); Hemoglobin 9.3 g/dL (12.0-15.0); Mean Corpuscular HGB Conc 32.6 g/dl (32-36); Mean Corpuscular Volume 82.6 fl (80-100); Mean Platelet Volume 8.9 fl (7.4-10.4); Platelet Count Result 303 k/mm3 (150-375); Red Blood Count 3.45 M/mm3 (4.2-5.4); Red Cell Distribution Width 13.7 % (11.5-14.5); White Blood Count 6.5 K/mm3 (4.5-10.0)
[2021-05-21 06:52] LABS: Anion Gap 7 mmol/L (8-16); Calcium 8.8 mg/dL (8.4-10.2); Carbon Dioxide 22 mmol/L (22-30); Chloride 111 mmol/L (98-107); Estimated CRCL calculation 69 ml/min; Estimated Glomerular Filt Rate > 60; Glucose 105 mg/dL (65-110); Potassium 3.4 mmol/L (3.4-5.0); Sodium 140 mmol/L (137-145)
[2021-05-21 06:57] LABS: Blood Urea Nitrogen < 2 mg/dL (7-17); Lipase 6463 U/L (23-300)
[2021-05-21 08:08] VITALS: PULSE 85; RESP 16; O2SAT 95
[2021-05-21] MEDS: FLUTICASONE PROPIONATE 0.05% NA SPR 16 GM BTL (*BKC) 1 SPRAY NASAL (09:08)
--- NOTE | 2021-05-21 09:39 | PM.IMPN ---
Progress Note: A&P Assessment and Plan (1) Acute pancreatitis: Code(s): K85.90 - Acute pancreatitis without necrosis or infection, unspecified Status: Acute Assessment and Plan: Lipase 98770-->9583 CT of the abdomen-->intra and extra hepatic biliary ductal dilation of indeterminate etiology Patient remains NPO at this time. Continue with anti nausea and pain medication GI following, recommendations appreciated MRCP-->mrcp revealed mass in ampulla but also extending into lumen. plan for EGD on Saturday may need ercp as well Clears Pain management Supporitive care (2) Acute hypokalemia: Code(s): E87.6 - Hypokalemia Status: Acute Assessment and Plan: K+ 3.1 Will replace Monitor an replace as necessary (3) BETTY (obstructive sleep apnea): Code(s): G47.33 - Obstructive sleep apnea (adult) (pediatric) Status: Acute Assessment and Plan: No longer uses a CPAP (4) Asthma: Code(s): J45.909 - Unspecified asthma, uncomplicated Status: Acute Assessment and Plan: Continue with home inhaler (5) Hyperlipidemia: Code(s): E78.5 - Hyperlipidemia, unspecified Status: Acute Assessment and Plan: Resume simvastatin (6) Hypertension: Code(s): I10 - Essential (primary) hypertension Status: Chronic Assessment and Plan: BP stable Resume home meds Monitor (7) Anxiety: Code(s): F41.9 - Anxiety disorder, unspecified Status: Chronic Assessment and Plan: P.r.n. Ativan Supportive care Subjective Date/time seen: 05/21/21 09:39 Interval history: 05/19 pt seen and evaluated; VS, labs and diagnostic reports reviewed; no acute events overnight; complains of abdominal tenderness, nausea and diarrhea 05/20 pt seen this a.m.; still complaints of mild abdominal tenderness; +nausea and diarrhea / pt reports increased pain and diarrhea last evening; this a.m. pain is controlled lipase trending down Review of Systems Review of Systems: All systems reviewed & are unremarkable except as noted in HPI and below Exam Const: General: no acute distress, alert and awake Orientation/consciousness: patient oriented x3 HENMT: Head: normocephalic and atraumatic Ears: hearing grossly normal bilaterally and external ears normal Face and sinus: face symmetric Mouth: Yes Normal oral and palatal mucosa present Neck: Neck: full ROM, trachea midline and no JVD Chest: Chest palpation & inspection: normal inspection of the chest Resp: Effort & Inspection: normal respiratory effort Auscultation: clear to auscultation bilaterally Cardio: Jugular venous distension: no JVD Rate: regular rate Rhythm: regular rhythm Heart sounds: S1 normal heart sound present and S2 normal heart sound present GI: Auscultation: normal bowel sounds Rectal Exam: deferred : General: Yes no CVA tenderness Back/Spine/Pelvis: Back: no CVA tenderness Skin: General skin exam: normal color Rashes: no rashes Neuro: General: patient oriented x3 and CN's II-XI intact bilaterally Speech: normal speech Psych: Appearance: grossly normal Affect: normal affect Judgement: Good judgement present (Psych) Objective Data Vital Signs Vital Signs: Vital Signs - 24 hr 05/20/21 14:00 05/20/21 19:28 05/20/21 20:55 Temperature 36.6 C 36.4 C L Pulse Rate 78 69 Respiratory Rate 18 16 Blood Pressure 130/70 143/89 H Pulse Oximetry 100 100 99 05/21/21 06:00 05/21/21 08:08 Temperature 36.4 C L Pulse Rate 88 85 Respiratory Rate 16 16 Blood Pressure 140/77 Pulse Oximetry 100 95 Intake/Output Intake/Output: Intake & Output 05/18/21 05/19/21 05/20/21 05/21/21 23:59 23:59 23:59 23:59 Intake Total 2600 4630 1000 Output Total 600 900 Balance 2600 4030 100 Meds/Results Medications: Active Medications Generic Name Dose Route Start Last Admin Trade Name Freq PRN Reason Stop Dose Admin Albuterol 1 puff 05/18/21
--- NOTE | 2021-05-21 13:28 | WPDGIPROGNO ---
Progress Note: A&P Additional Plan GI Bradly for Jed 21 May 2021 Denies AP, N, V. Diarrhea persists VSS soft/NT Hct 29. Lipase 12,227-> 6,463 Tumor markers and stool pending A/P A. Abnormal imaging-pancreas: - Concern for neoplasm - Await CA 19-9 - Lipase decreasing - ERCP tomorrow by Dr. Jed Mora. Chronic blood loss anemia: - No active bleed - Follow H+H; transfuse prn C. Altered bowel habits-diarrhea: - DDx extensive - Stool studies pending - Possibly due to meds - No improvement with Imodium overnight The procedure of ERCP, its indications, alternatives of barium studies/surgery and risks including perforation, bleeding, infection, reaction to medication as well as the possible need for blood or surgery and up to 10% risk of pancreatitis were discussed with the patient prior to the procedure. Patient voices understanding, agrees to proceed and provides informed consent. Further recommendations per Dr. Adkins Thanks, [facility] [phone] Subjective Date/time seen: 05/21/21 13:28 Objective Data Vital Signs Vital Signs: Vital Signs - 24 hr 05/20/21 14:00 05/20/21 19:28 05/20/21 20:55 Temperature 36.6 C 36.4 C L Pulse Rate 78 69 Respiratory Rate 18 16 Blood Pressure 130/70 143/89 H Pulse Oximetry 100 100 99 05/21/21 06:00 05/21/21 08:08 Temperature 36.4 C L Pulse Rate 88 85 Respiratory Rate 16 16 Blood Pressure 140/77 Pulse Oximetry 100 95 Intake/Output Intake/Output: Intake & Output 05/18/21 05/19/21 05/20/21 05/21/21 23:59 23:59 23:59 23:59 Intake Total 2600 4630 2660 Output Total 600 900 Balance 2600 4030 1760 Meds/Results Medications: Active Medications Generic Name Dose Route Start Last Admin Trade Name Freq PRN Reason Stop Dose Admin Albuterol 1 puff 05/18/21 21:57 Albuterol Sulfate (*Sp) Aerosol 1 Puff INHALATION Q4H PRN Shortness Of Breath Alprazolam 1 mg 05/19/21 21:00 05/20/21 20:38 Alprazolam (*Crx) 0.5 Mg Tablet PO 1 mg HS ETELVINA Administration Budesonide/Formoterol Fumarate 2 puff 05/19/21 08:00 05/21/21 08:07 Budesonide/Form 160-4.5 Mcg (*Sp) INHALATION 2 puff Q12HRT ETELVINA Administration Fluticasone Propionate 1 spray 05/19/21 09:00 05/21/21 09:08 Fluticasone Propionate 0.05% Na Spr 16 Gm Btl (*Bkc) NASAL 1 spray DAILY ETELVINA Administration Hydralazine HCl 10 mg 05/18/21 19:43 Hydralazine Hcl 20 Mg/Ml Vial IV PUSH Q8H PRN Blood Pressure - High Sodium Chloride 1,000 mls @ 125 mls/hr 05/18/21 15:55 05/21/21 10:50 Normal Saline Iv IV CONT 125 mls/hr .Q8H ETELVINA Administration Lorazepam 0.5 mg 05/18/21 19:45 05/18/21 22:32 Lorazepam Inj (*Crx) 2 Mg/Ml Vial IV PUSH 0.5 mg Q6H PRN Administration Anxiety Morphine Sulfate 2 mg 05/18/21 19:47 05/21/21 09:08 Morphine Sulfate (*Crx) 2 Mg/Ml Inj IV PUSH 2 mg Q4H PRN Administration Pain Rated 7-10 Ondansetron HCl 4 mg 05/21/21 10:30 Ondansetron Inj 4 Mg/2 Ml Vial IV PUSH Q6H PRN Nausea And Vomiting Sertraline HCl 50 mg 05/19/21 21:00 05/20/21 20:38 Sertraline Hcl 50 Mg Tablet PO 50 mg HS ETELVINA Administration Simvastatin 20 mg 05/19/21 21:00 05/20/21 20:38 Simvastatin 20 Mg Tablet PO 20 mg HS ETELVINA Administration Radiology Results: ITS Impressions Abdomen/Pelvis CT 05/18/21 15:28 IMPRESSION: 1. Intra and extra hepatic biliary ductal dilation of indeterminate etiology. Correlate with liver function tests and consider MRCP for further evaluation. 2. Indeterminate 7 mm nodule at the left lung base. Recommend 6-12 month follow-up low-dose noncontrast chest CT. Abdomen Ultrasound 05/19/21 11:50 IMPRESSION: Severely distended common bile duct. Mildly dilated pancreatic duct. Correlate with MRCP for possible pancreatic head mass. MRCP 05/19/21 12:56 IMPRESSION: 1. 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
[2021-05-21 14:00] VITALS: BP 145/82; PULSE 83; RESP 18; TEMP 37; O2SAT 99
[2021-05-21 19:59] VITALS: PULSE 80; RESP 18; O2SAT 97
[2021-05-21] MEDS: ALPRAZolam (*CRX) 0.5 MG TABLET 1 MG PO (20:02)
[2021-05-21] MEDS: SERTRALINE HCL 50 MG TABLET PO (20:02)
[2021-05-21] MEDS: SIMVASTATIN 20 MG TABLET PO (20:02)
[2021-05-21 22:00] VITALS: BP 156/90; PULSE 76; RESP 18; TEMP 36.9; O2SAT 98
[2021-05-22] VITALS (7 sets, daily range): BP systolic 127–159; BP diastolic 77–101; PULSE 74–100; RESP 17–28; TEMP 36.5–36.9; O2SAT 96–100
[2021-05-22] MEDS: SODIUM CHLORIDE 0.9% IV 1,000 ML 125 ML IV CONT ×3 (04:02→23:10)
[2021-05-22] MEDS: MORPHINE SULFATE (*CRX) 2 MG/ML INJ IV PUSH ×2 (04:04→20:27)
[2021-05-22 05:44] LABS: Anion Gap 9 mmol/L (8-16); Calcium 8.6 mg/dL (8.4-10.2); Carbon Dioxide 21 mmol/L (22-30); Chloride 111 mmol/L (98-107); Estimated CRCL calculation 69 ml/min; Estimated Glomerular Filt Rate > 60; Glucose 103 mg/dL (65-110); Potassium 3.1 mmol/L (3.4-5.0); Sodium 141 mmol/L (137-145)
[2021-05-22 05:53] LABS: Blood Urea Nitrogen < 2 mg/dL (7-17)
[2021-05-22] MEDS: FLUTICASONE PROPIONATE 0.05% NA SPR 16 GM BTL (*BKC) 1 SPRAY NASAL (09:23)
[2021-05-22 09:30] LABS: Lipase 3703 U/L (23-300)
--- NOTE | 2021-05-22 11:16 | PCNFU ---
Nutrition Follow-Up Complete: Altered GI function as related to Possible pancreatitis as evidenced by NPO Goal: Meet estimated nutritional needs Patient has limited progress towards goal. We will continue current goal. Pt current nutrition is NPO x 5 days. Last recorded weight is 67 kg, no new weight to report. Bowel Motility:+BM reported 05/22 Labs Reviewed:Cr 0.6, K 3.1 Meds Noted:NS,Zoloft, Symbicort,Morphine. Additional Notes: Patient seen today for nutrition follow up. Plans for EGD/ERCP today. Increased nutritional risk. If patient remains NPO greater than 7 days would recommend started IV nutrition. Monitoring: Will monitor every 3 days.
--- NOTE | 2021-05-22 12:32 | PM.IMPN ---
Progress Note: A&P Assessment and Plan (1) Acute pancreatitis: Code(s): K85.90 - Acute pancreatitis without necrosis or infection, unspecified Status: Acute Assessment and Plan: Lipase 37738-->9583-->69024-->6463-->3703 CT of the abdomen-->intra and extra hepatic biliary ductal dilation of indeterminate etiology Patient remains NPO at this time. Continue with anti nausea and pain medication GI following, recommendations appreciated MRCP-->mrcp revealed mass in ampulla but also extending into lumen. plan for EGD on Saturday may need ercp as well Clears Pain management Supportive care (2) Acute hypokalemia: Code(s): E87.6 - Hypokalemia Status: Acute Assessment and Plan: K+ 3.1-->3.4-->3.1 today Will replace Monitor an replace as necessary (3) BETTY (obstructive sleep apnea): Code(s): G47.33 - Obstructive sleep apnea (adult) (pediatric) Status: Acute Assessment and Plan: No longer uses a CPAP (4) Asthma: Code(s): J45.909 - Unspecified asthma, uncomplicated Status: Acute Assessment and Plan: Continue with home inhaler (5) Hyperlipidemia: Code(s): E78.5 - Hyperlipidemia, unspecified Status: Acute Assessment and Plan: Resume simvastatin (6) Hypertension: Code(s): I10 - Essential (primary) hypertension Status: Chronic Assessment and Plan: BP stable Resume home meds Monitor (7) Anxiety: Code(s): F41.9 - Anxiety disorder, unspecified Status: Chronic Assessment and Plan: P.r.n. Ativan Supportive care Subjective Date/time seen: 05/22/21 12:32 Interval history: 05/19 pt seen and evaluated; VS, labs and diagnostic reports reviewed; no acute events overnight; complains of abdominal tenderness, nausea and diarrhea 05/20 pt seen this a.m.; still complaints of mild abdominal tenderness; +nausea and diarrhea / pt reports increased pain and diarrhea last evening; this a.m. pain is controlled lipase trending down 05/22 pt seen and evaluated; no new complaints; plan for EGD and ERCP today Review of Systems Review of Systems: All systems reviewed & are unremarkable except as noted in HPI and below Exam Const: General: no acute distress, alert and awake Orientation/consciousness: patient oriented x3 HENMT: Head: normocephalic and atraumatic Ears: hearing grossly normal bilaterally and external ears normal Face and sinus: face symmetric Mouth: Yes Normal oral and palatal mucosa present Neck: Neck: full ROM, trachea midline and no JVD Chest: Chest palpation & inspection: normal inspection of the chest Resp: Effort & Inspection: normal respiratory effort Auscultation: clear to auscultation bilaterally Cardio: Jugular venous distension: no JVD Rate: regular rate Rhythm: regular rhythm Heart sounds: S1 normal heart sound present and S2 normal heart sound present GI: Auscultation: normal bowel sounds Rectal Exam: deferred : General: Yes no CVA tenderness Back/Spine/Pelvis: Back: no CVA tenderness Skin: General skin exam: normal color Rashes: no rashes Neuro: General: patient oriented x3 and CN's II-XI intact bilaterally Speech: normal speech Psych: Appearance: grossly normal Affect: normal affect Judgement: Good judgement present (Psych) Objective Data Vital Signs Vital Signs: Vital Signs - 24 hr 05/21/21 14:00 05/21/21 19:59 05/21/21 22:00 Temperature 37.0 C 36.9 C Pulse Rate 83 80 76 Respiratory Rate 18 18 18 Blood Pressure 145/82 H 156/90 H Pulse Oximetry 99 97 98 05/22/21 04:42 Temperature 36.9 C Pulse Rate 77 Respiratory Rate 18 Blood Pressure 145/81 H Pulse Oximetry 98 Intake/Output Intake/Output: Intake & Output 05/19/21 05/20/21 05/21/21 05/22/21 23:59 23:59 23:59 23:59 Intake Total 3100 4630 4570 1400 Output Total 600 1900 550 Balance 3100 4030 2670 850 Meds/Results Medications: Active Medications Generic Name Do
[2021-05-22] MEDS: LACTATED RINGERS 1,000 ML 150 ML IV CONT (14:02)
--- NOTE | 2021-05-22 14:35 | WPDANESEPPF ---
Anes - Initial Pre Proc Eval Procedure: Operation Date: 05/22/21 14:30 Proposed Procedures p Esophagogastroduodenoscopy - Leeroy Lyle MD Date/Time: 05/22/21 14:35 Surgeon: Erasmo Gorman MD Pre Op Diagnosis: pancreatitis,hypokalemia Patient Data Age: 65 Gender: F Height: 1.57 m Weight: 67 kg Last Vital Signs Temp 36.5 C 05/22/21 13:51 Pulse 74 05/22/21 13:51 Resp 20 05/22/21 13:51 BP 149/101 H 05/22/21 13:51 Pulse Ox 100 05/22/21 13:51 Allergies Allergy/AdvReac Type Severity Reaction Status Date / Time Macrolide Antibiotics Allergy Intermediate ITCHING Verified 05/22/21 13:49 amoxicillin Allergy Unknown ukn Verified 05/22/21 13:49 erythromycin base Allergy Unknown unk Verified 05/22/21 13:49 naproxen Allergy Unknown Rash Verified 05/22/21 13:49 Penicillins Allergy Unknown unk Verified 05/22/21 13:49 Sulfa (Sulfonamide Allergy Unknown unk Verified 05/22/21 13:49 Antibiotics) iohexol Allergy Itching Verified 05/22/21 13:49 [From contrast - CT, X-RAY] Contrast Media Allergy Intermediate ITCHING Uncoded 05/22/21 13:49 Home Medications Medication Instructions Recorded Confirmed Type albuterol sulfate 90 mcg/actuation 1 inhalation INHALATION Q4H PRN 07/29/19 05/18/21 History aerosol inhaler alprazolam 1 mg tablet 1 mg PO HS 07/29/19 05/19/21 History fluticasone propionate 50 1 spray NASAL DAILY 07/29/19 05/18/21 History mcg/actuation nasal spray,suspension hydrochlorothiazide 25 mg tablet 25 mg PO DAILY 07/29/19 05/18/21 History quinapril 40 mg tablet 40 mg PO DAILY 07/29/19 05/18/21 History sertraline 50 mg tablet 50 mg PO HS 07/29/19 05/19/21 History simvastatin 20 mg tablet 20 mg PO HS 07/29/19 05/19/21 History budesonide-formoterol HFA 160 2 puff INHALATION Q12H #10.2 gm 01/28/20 05/18/21 Rx mcg-4.5 mcg/actuation aerosol inhaler omeprazole 40 mg capsule,delayed 40 mg PO DAILY #30 cap 04/11/21 05/18/21 Rx release Laboratory Tests 05/22/21 05/22/21 05:08 05:11 Sodium 141 mmol/L mmol/L (137-145) Potassium 3.1 mmol/L L mmol/L (3.4-5.0) Chloride 111 mmol/L H mmol/L (98-107) Carbon Dioxide 21 mmol/L L mmol/L (22-30) Anion Gap 9 mmol/L mmol/L (8-16) BUN < 2 mg/dL L mg/dL (7-17) Creatinine 0.60 mg/dL L mg/dL (0.7-1.0) Estim Creat Clear Calc 69 ml/min ml/min Estimated GFR > 60 (59 - ) Glucose 103 mg/dL mg/dL (65-110) Calcium 8.6 mg/dL mg/dL (8.4-10.2) Lipase 3703 U/L H U/L (23-300) Patient hx anesthesia problems: none Family hx anesthesia problems: none Results Review: All pre-operative results and documents have been reviewed as part of the pre-operative evaluation. [facility] Past Medical History Medical History Abdominal bloating Anxiety Arthritis Asthma Bronchitis Chronic back pain Coughing DDD (degenerative disc disease) Depression Diarrhea Essential hypertension Fibroids GERD (gastroesophageal reflux disease) Helicobacter pylori (H. pylori) Hiatal hernia High cholesterol Hyperlipidemia Hypertension Hypoxia Nausea On home O2 BETTY (obstructive sleep apnea) No longer uses CPAP Overweight (BMI 25.0-29.9) Ana-ampullary neoplasm Post-menopausal Pulmonary hypertension Seasonal allergies Sleep apnea Upper abdominal pain Wears glasses Surgical History Surgical History History of cardiac catheterization History of dilatation and curettage History of hysterectomy History of sinus surgery History of spinal surgery Cervical fusion History of thyroidectomy Goiter removed History of tubal ligation Family History Family History Father Family history of malignant neoplasm Mother Family history of kidney disease Other Arthritis Hyper
[2021-05-22] MEDS: BENZOCAINE (*SP) 60 ML SPRAY CAN (HURRICAINE) 1 SPRAY MUCOUS MEM (14:50)
[2021-05-22] MEDS: ALPRAZolam (*CRX) 0.5 MG TABLET 1 MG PO (20:18)
[2021-05-22] MEDS: SIMVASTATIN 20 MG TABLET PO (20:19)
[2021-05-22] MEDS: SERTRALINE HCL 50 MG TABLET PO (20:19)
[2021-05-23 02:05] LABS: CA-125 5 U/mL (<35)
[2021-05-23 06:29] LABS: Hematocrit 27.6 % (37.0-47.0); Hemoglobin 9.2 g/dL (12.0-15.0); Mean Corpuscular HGB Conc 33.3 g/dl (32-36); Mean Corpuscular Hemoglobin 27.4 pg (26-34); Mean Corpuscular Volume 82.1 fl (80-100); Mean Platelet Volume 8.9 fl (7.4-10.4); Platelet Count Result 289 k/mm3 (150-375); Red Blood Count 3.36 M/mm3 (4.2-5.4); Red Cell Distribution Width 13.8 % (11.5-14.5); White Blood Count 4.1 K/mm3 (4.5-10.0)
[2021-05-23] MEDS: SODIUM CHLORIDE 0.9% IV 1,000 ML 125 ML IV CONT (06:58)
[2021-05-23 07:10] LABS: Anion Gap 8 mmol/L (8-16); Blood Urea Nitrogen 2 mg/dL (7-17); Calcium 8.7 mg/dL (8.4-10.2); Carbon Dioxide 22 mmol/L (22-30); Chloride 109 mmol/L (98-107); Estimated CRCL calculation 69 ml/min; Estimated Glomerular Filt Rate > 60; Glucose 119 mg/dL (65-110); Potassium 3.3 mmol/L (3.4-5.0); Sodium 139 mmol/L (137-145)
[2021-05-23 07:41] LABS: Lipase 3935 U/L (23-300)
[2021-05-23] MEDS: MORPHINE SULFATE (*CRX) 2 MG/ML INJ IV PUSH (08:19)
[2021-05-23] MEDS: PANTOPRAZOLE SODIUM IV 40 MG VIAL IV PUSH (08:21)
[2021-05-23 08:51] VITALS: PULSE 79; RESP 20; O2SAT 97
[2021-05-23 11:22] LABS: Magnesium 1.3 mg/dL (1.6-2.3)
[2021-05-23] MEDS: POTASSIUM CHLORIDE 20 MEQ TABLET 40 MEQ PO (11:45)
--- NOTE | 2021-05-23 12:34 | PM.IMPN ---
Progress Note: A&P Assessment and Plan (1) Acute pancreatitis: Code(s): K85.90 - Acute pancreatitis without necrosis or infection, unspecified Status: Acute Assessment and Plan: Lipase 13627-->9583-->86612-->6463-->3703--> 3935. CT of the abdomen-->intra and extra hepatic biliary ductal dilation of indeterminate etiology MRCP-->Revealed mass in ampulla but also extending into lumen. EGD showed malignant-appearing duodenal mass Oncology was consulted who evaluated the patient and recommended transfer to [facility] with a consult to Rickie Charles for possible Whipple Procedure. At this time the patient continues to have some pain with eating which is been constant over the last few months. I am trying to transition her to oral narcotics and IV only if severe pain. I have called [facility] who will not speak to me until a bed becomes available. I did explain to them consultation to the surgeon. They will call once a bed is available. Until then we will continue to treat symptoms as needed and appreciate input from specialists Continue monitoring. (2) Acute hypokalemia: Code(s): E87.6 - Hypokalemia Status: Acute Assessment and Plan: K+ 3.1-->3.4-->3.3 today. Mag low at 1.3. Will replenish with IV magnesium 4 g. Given p.o. potassium and will recheck on morning. Monitor an replace as necessary (3) BETTY (obstructive sleep apnea): Code(s): G47.33 - Obstructive sleep apnea (adult) (pediatric) Status: Acute Assessment and Plan: No longer uses a CPAP (4) Asthma: Code(s): J45.909 - Unspecified asthma, uncomplicated Status: Acute Assessment and Plan: Continue with home inhaler (5) Hyperlipidemia: Code(s): E78.5 - Hyperlipidemia, unspecified Status: Acute Assessment and Plan: Resume simvastatin (6) Hypertension: Code(s): I10 - Essential (primary) hypertension Status: Chronic Assessment and Plan: The patient's blood pressure was elevated last night 159/95 at 10:00 p.m. which was last documented in the computer. Continue home meds Monitor (7) Anxiety: Code(s): F41.9 - Anxiety disorder, unspecified Status: Chronic Assessment and Plan: P.r.n. Ativan Supportive care (8) Normocytic anemia: Code(s): D64.9 - Anemia, unspecified Status: Acute Assessment and Plan: Patient's hemoglobin on arrival was 11.7. She received copious IV fluids during her hospitalization the last 5 days and hemoglobin today is 9.2. She has no acute signs of bleeding currently. Will stop IV fluids at this time. Continue monitoring H&H. Time Spent With Patient Time with patient: 25 - 35 minutes Subjective Date/time seen: 05/23/21 12:34 Interval history: Date of Service 05/23/21: The patient continues to have epigastric pain worse with eating and radiates to her back. This is continued since prior to coming in. Denies any worsening symptoms while here. She has had some nausea. No vomiting. She denies any more diarrhea since taking Imodium but she does have some abdominal distension but is passing gas. She denies any fevers, chills, chest pain, shortness of breath, cough, leg swelling, calf pain, or any other symptoms at this time. Review of Systems Review of Systems: All systems reviewed & are unremarkable except as noted in HPI and below Exam Narrative: General: 65-year-old woman sitting up in bed watching TV. Appears comfortable. In no acute distress. Skin: No jaundice or cyanosis. Good skin turgor. Neck: Ful
[2021-05-23] MEDS: MAGNESIUM SULF 4 GM/WATER100ML 4 GM/100 ML BAG IVPB (12:45)
--- NOTE | 2021-05-23 13:00 | PDONCCN ---
HPI - Date of Consult Date/Time: 05/23/21 13:00 Requesting Physician: Diana Mireles PA-C Primary Care Provider: Rosibel MuseMD - Consult Narrative Reason for consult: Ampullary carcinoma Narrative: Krissy Oneal is a 65 year old female with history of hypertension hyperlipidemia and arthritis came into the hospital with intermittent abdominal bloating for 3-4 months duration. She has lost 20 lb weight in that time. She was treated for H pylori infection previously without any improvement. She denies any nausea vomiting and diarrhea. No melena hematochezia. CT abdomen done on May 18 showed intra and extrahepatic biliary ductal dilatation with 7 mm nodule at the lung base. MRCP was done that showed 4 cm mass of the ampulla Vater consistent with primary malignancy with 5 mm 6 lesion in the tail of the pancreas. EGD was done on May 22 that showed malignant-appearing duodenal mass and biopsies were taken. Patient is quite uncomfortable with abdominal pain. Review of Systems - Review of Systems All systems reviewed & are unremarkable except as noted in HPI and bel - Neurologic Reports system reviewed and no additional complaints, except as documented, Reports hearing normal [facility] Medical History: Medical History (Last Reviewed 05/22/21 @ 14:36 by Pavan Horta MD) Abdominal bloating Anxiety Arthritis Asthma Bronchitis Chronic back pain Coughing DDD (degenerative disc disease) Depression Diarrhea Essential hypertension Fibroids GERD (gastroesophageal reflux disease) Helicobacter pylori (H. pylori) Hiatal hernia High cholesterol Hyperlipidemia Hypertension Hypoxia Nausea On home O2 BETTY (obstructive sleep apnea) No longer uses CPAP Overweight (BMI 25.0-29.9) Ana-ampullary neoplasm Post-menopausal Pulmonary hypertension Seasonal allergies Sleep apnea Upper abdominal pain Wears glasses Surgical History: Surgical History (Last Reviewed 05/22/21 @ 14:36 by Pavan Horta MD) History of cardiac catheterization History of dilatation and curettage History of hysterectomy History of sinus surgery History of spinal surgery Cervical fusion History of thyroidectomy Goiter removed History of tubal ligation Family History: Family History (Last Reviewed 05/22/21 @ 14:36 by Pavan Horta MD) Father Family history of malignant neoplasm Mother Family history of kidney disease Other Arthritis Hypertension Leukemia - Social History Social History: Social History (Last Reviewed 05/22/21 @ 14:36 by Pavan Horta MD) Gender Identity: Gender identity (if verbalized by the patient): Female Alcohol Use: Alcohol intake: never Substance Use: Substance use: never Substance use type: does not use Others: Spiritual care concerns: No Oppucation/Education: Occupation/Education: retired Smoking Status: Smoking status: Former smoker Tobacco type: cigarettes Second hand tobacco smoke exposure: No Smoking end date: 08/12/03 Approximate Smoking End Date: 15 years ago Smoking Pack-years: Years smoked: 30 Meds Home Medications Medication Instructions Recorded Confirmed Type albuterol sulfate 90 mcg/actuation 1 inhalation INHALATION Q4H PRN 07/29/19 05/18/21 History aerosol inhaler alprazolam 1 mg tablet 1 mg PO HS 07/29/19 05/19/21 History fluticasone propionate 50 1 spray NASAL DAILY 07/29/19 05/18/21 History mcg/actuation nasal spray,suspension hydrochlorothiazide 25 mg tablet 25 mg PO DAILY 07/29/19 05/18/21 History quinapril 40 mg tablet 40 mg PO DAILY 07/29/19 05/18/21 History sertraline 50 mg tablet 50 mg PO HS 07/29/19 05/19/21 History simvastatin 20 mg tablet 20 mg PO HS 07/29/19 05/19/21 History budesonide-formoterol HFA 160 2 puff INHALATION Q12H #10.2 gm 01/28/20 05/18/21 Rx mcg-4.5 mcg/actuation aerosol inhaler omeprazole 40 mg capsule,delaye
[2021-05-23 13:55] LABS: CA 19-9 28 U/mL (<34)
[2021-05-23 14:00] VITALS: BP 164/94; PULSE 76; RESP 18; TEMP 36.7; O2SAT 100
--- NOTE | 2021-05-23 15:29 | PM.TDS ---
Transfer Discharge Sum: Prov Provider Date of admission: 05/19/21 11:59 Primary care physician: Rosibel Muse, Admitting clinician: Erasmo Gorman MD Consults: 05/18/21 Consult to Physician Routine Comment: Consulting Provider: Leeroy Lyle Reason for consultation: pancreatitis Has provider been notified: Yes 05/22/21 15:40 Consult to Physician Routine Comment: spoke with Dr Newell at 16:09 /[employer]GER Consulting Provider: Royal Newell square dance caller/MD group to consult: oncology Reason for consultation: ampullary mass Has provider been notified: Yes DS: Admitting Diagnosis Discharge Date 05/23/21 Admitting Diagnosis Epigastric pain DS: Discharge Diagnosis Discharge Diagnosis (1) Pancreatic mass: Code(s): K86.89 - Other specified diseases of pancreas Status: Acute Assessment and Plan: The patient is a 65 year old woman with a history of HTN, HLD, COPD, who presented to the ED with 4 months of epigastric pain, nausea and diarrhea concerned for diarrhea. Initial vitals showed stable blood pressure 116/78, normal heart rate, oxygenation on room air, afebrile. Initial labs showed normocytic anemia with a hemoglobin of 11, hematocrit 36%. Normal differential. Hypokalemia at 2.9, normal renal function with a creatinine of 0.9/BUN 11. Slight elevation in AST at 37, and alk-phos at 253. Elevated lipase at 13,689. Normal TSH. Normal urinalysis. CT abdomen pelvis without contrast showed Intra and extra hepatic biliary ductal dilation of indeterminate etiology. Correlate with liver function tests and consider MRCP for further evaluation. Indeterminate 7 mm nodule at the left lung base. Abd US showed Severely distended common bile duct. Mildly dilated pancreatic duct. Correlate with MRCP for possible pancreatic head mass. MRCP showed 4.0 cm mass at the ampulla of Vater, consistent with primary malignancy, with dilatation of the biliary tree and pancreatic duct. Endoscopy is recommended. 5 mm cystic lesion in the tail of the pancreas. The differential diagnosis includes pseudocyst, intraductal papillary mucinous neoplasm (IPMN), mucinous cystic neoplasm (MCN), serous cystadenoma, and neuroendocrine tumor. Patient was admitted to the hospital with a consult to GI who performed an EGD on 05/22/2021 which showed hiatal hernia, malignant appearing duodenal mass. Biopsies were taken. Recommends PPI with Protonix daily. GI consulted Oncology to see if the patient would be a candidate for a Whipple procedure Dr. Newell our oncologist evaluated the patient and called [facility] and talked to Dr Tomasz Charles Surgeon who will see the patient in consultation and determine if she would need a Whipple procedure. I talked to the hospitalist service at [facility] who accepted the patient to Dr. Rodriguez. The patient is going to be discharged in stable condition. Patient understands and agrees the plan all questions answered. Currently advanced to a low-fat diet but still having postprandial abdominal pain. Transition to oral narcotics with [place] p.r.n. and antiemetics p.r.n.. (2) Duodenal mass: Code(s): K31.89 - Other diseases of stomach and duodenum Status: Acute (3) Acute pancreatitis: Code(s): K85.90 - Acute pancreatitis without necrosis or infection, unspecified Status: Acute Assessment and Plan: (4) Acute hypokalemia: Code(s): E87.6 - Hypokalemia Status: Acute Assessment and Plan: K+ 3.1-->3.4-->3.3 today. Mag low at 1.3. Will replenish with IV magnesium 4 g. Given p.o. potassium. Recheck in the morning. (5) BETTY (obstructive sleep apnea): Code(s): G47.33 - Obstructive sleep apnea (adult) (pediatric) Status: Acute Assessment and Plan: No longer uses a CPAP
--- NOTE | 2021-05-23 16:02 | WPDGIPROGNO ---
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 - Neoplasm of unspecified behavior of digestive system Status: Acute Assessment and Plan: plan is to transfer to tertiary hospital to see if she would be a candidate for Whipple procedure given findings and also persistent symptom (3) Acute pancreatitis: Code(s): K85.90 - Acute pancreatitis without necrosis or infection, unspecified Status: Acute Assessment and Plan: from large ampullary lesion advance diet as tolerated (4) Nausea: Code(s): R11.0 - Nausea Status: Acute (5) Upper abdominal pain: Code(s): R10.10 - Upper abdominal pain, unspecified Status: Acute (6) Dilated intrahepatic bile duct: Code(s): K83.8 - Other specified diseases of biliary tract Status: Acute Subjective Date/time seen: 05/23/21 16:02 Interval history: pain improved after she woke up but after eating will have more discomfort. No major changes. Review of Systems Review of Systems: All systems reviewed & are unremarkable except as noted in HPI and below Exam Const: General: comfortable and no acute distress HENMT: General nose exam: Normal nares present Eyes: General: appearance normal, both eyes and all related structures Neck: Neck: no JVD Resp: Auscultation: clear to auscultation bilaterally Cardio: Rate: regular rate Rhythm: regular rhythm GI: Inspection: non-distended GI Palp: Yes Soft to palpation and Yes Tenderness to palpation present (GI) (mild ttp in epigastric, no rebound) Auscultation: normal bowel sounds Skin: General skin exam: normal color Neuro: Speech: normal speech Motor exam (neuro): Normal motor muscle tone present throughout Extrem: General: normal to inspection Psych: Mental Status: mental status grossly normal Objective Data Vital Signs Vital Signs: Vital Signs - 24 hr 05/22/21 20:13 05/22/21 22:00 05/23/21 08:51 Temperature 98.2 F Pulse Rate 75 77 79 Respiratory Rate 18 21 H 20 Blood Pressure 159/95 H Pulse Oximetry 96 100 97 05/23/21 14:00 Temperature 98.0 F Pulse Rate 76 Respiratory Rate 18 Blood Pressure 164/94 H Pulse Oximetry 100 Intake/Output Intake/Output: Intake & Output 05/20/21 05/21/21 05/22/21 05/23/21 23:59 23:59 23:59 23:59 Intake Total 4630 4570 4260 2710 Output Total 600 1900 3050 1000 Balance 4030 2670 1210 1710 Meds/Results Medications: Active Medications Generic Name Dose Route Start Last Admin Trade Name Freq PRN Reason Stop Dose Admin Hydrocodone Bitart/Acetaminophen 1 tab 05/23/21 12:36 Hydrocodone/Acetaminophen (*Crx) 5-325 Mg Tablet PO Q4H PRN Pain Rated 4-6 Hydrocodone Bitart/Acetaminophen 1 tab 05/23/21 12:36 Hydrocodone/Acetaminophen (*Crx) 7.5-325 Mg Tablet PO Q4H PRN Pain Rated 7-10 Albuterol 1 puff 05/18/21 21:57 Albuterol Sulfate (*Sp) Aerosol 1 Puff INHALATION Q4H PRN Shortness Of Breath Alprazolam 1 mg 05/19/21 21:00 05/22/21 20:18 Alprazolam (*Crx) 0.5 Mg Tablet PO 1 mg HS ETELVINA Administration Budesonide/Formoterol Fumarate 2 puff 05/19/21 08:00 05/23/21 08:51 Budesonide/Form 160-4.5 Mcg (*Sp) INHALATION 2 puff Q12HRT ETELVINA Administration Fluticasone Propionate 1 spray 05/19/21 09:00 05/23/21 08:22 Fluticasone Propionate 0.05% Na Spr 16 Gm Btl (*Bkc) NASAL Not Given DAILY ETELVINA Hydralazine HCl 10 mg 05/18/21 19:43 Hydralazine Hcl 20 Mg/Ml Vial IV PUSH Q8H PRN Blood Pressure - High Lorazepam 0.5 mg 05/18/21 19:45 05/18/21 22:32 Lorazepam Inj (*Crx) 2 Mg/Ml Vial IV PUSH 0.5 mg Q6H PRN Administration Anxiety Morphine Sul
[2021-05-23] MEDS: HYDROcodone/acetaminophen (*CRX) 7.5-325 MG TABLET 1 TAB PO (18:04)
--- NOTE | 2021-05-23 18:08 | PC.NURSE ---
Report called to JESSICA Kemp at [facility]
[2021-05-23 20:00] VITALS: PULSE 67; RESP 21; O2SAT 100
[2021-05-23] MEDS: SERTRALINE HCL 50 MG TABLET PO (20:54)
[2021-05-23] MEDS: ALPRAZolam (*CRX) 0.5 MG TABLET 1 MG PO (20:54)
[2021-05-23] MEDS: SIMVASTATIN 20 MG TABLET PO (20:54)
[2021-05-23 21:03] VITALS: PULSE 78; RESP 20; O2SAT 96
[2021-05-23 21:31] VITALS: BP 160/87; PULSE 67; RESP 21; TEMP 37; O2SAT 100
--- NOTE | 2021-05-23 23:22 | PCRCNOTE ---
Pt refused MDI treatment. Pt states the MDI causes a lump in their throat and doesnt want to do the treatment any more. Per patients wishes they ask the treatment be D/C. They dont want to take the treatment at all because they do not like the lump it makes and wishes it to no longer be ordered.
== END 2021-05-24 02:30 | disposition short-term general hospital (02) | DRG 440 ==
LOC: ANHED 16:30 → ANH3MED 16:37
PROVIDERS: Family Medicine; Internal Medicine Gastroenterology; Nurse Practitioner; Nurse Practitioner Adult Health; Admitting Provider Internal Medicine; Emergency Provider Emergency Medicine; PCP Family Medicine; Visit Provider Physician Assistant
PROC: 0DJ08ZZ Inspection of Upper Intestinal Tract, Via Natural or Artificial Opening Endoscopic (ICD-10-PCS; CPT 43235; principal; 2021-05-22 14:30)
DX: K86.89 Other specified diseases of pancreas (principal); K85.90 Acute pancreatitis without necrosis or infection, unspecified; K31.89 Other diseases of stomach and duodenum; K44.9 Diaphragmatic hernia without obstruction or gangrene; D64.9 Anemia, unspecified; E87.6 Hypokalemia; J44.9 Chronic obstructive pulmonary disease, unspecified; E78.5 Hyperlipidemia, unspecified; K21.9 Gastro-esophageal reflux disease without esophagitis; I27.20 Pulmonary hypertension, unspecified; R19.7 Diarrhea, unspecified; I10 Essential (primary) hypertension; F41.9 Anxiety disorder, unspecified; G47.33 Obstructive sleep apnea (adult) (pediatric); Z79.899 Other long term (current) drug therapy; Z87.891 Personal history of nicotine dependence
CPT/HCPCS: 36415; 74176; 74183; 76376; 76705; 80048; 80053; 81003; 81025; 83605; 83615; 83690; 83735; 84443; 85025; 85027; 86301; 86304; 87045; 87324; 87427; 88305; 88342; 89055; 94640; 96361; 96366; 96374; 96375; 99285; A9270; A9577; C9113; G0378; J2060; J2270; J2704; J3475; J3480; J7030; J7120

== ENCOUNTER 2021-06-09 12:26 | Outpatient (CLI) | payer MEDICARE, SELFPAY ==
[2021-06-09 13:12] LABS: Basophils Percent Auto 0.7 % (0.2-1.2); Eosinophils Absolute Auto 0.2 K/mm3 (0-0.3); Eosinophils Percent Auto 2.6 % (0-4.4); Hematocrit 34.1 % (37.0-47.0); Hemoglobin 10.7 g/dL (12.0-15.0); Immature Granulocyte Absolute 0.02 K/mm3 (0.00-0.031); Immature Granulocyte Percent A 0.3 % (0-0.5); Lymphocytes Absolute Auto 2.03 K/mm3 (0.9-3.2); Lymphocytes Percent Auto 34.8 % (18.3-44.2); Mean Corpuscular HGB Conc 31.4 g/dl (32-36); Mean Corpuscular Hemoglobin 26.6 pg (26-34); Mean Corpuscular Volume 84.8 fl (80-100); Mean Platelet Volume 8.2 fl (7.4-10.4); Monocytes Absolute Auto 0.3 K/mm3 (0.1-0.6); Monocytes Percent Auto 5.3 % (2.6-8.5); Neutrophils Absolute Auto 3.3 K/mm3 (1.3-6.7); Neutrophils Percent Auto 56.3 % (45.5-73.1); Platelet Count Result 651 k/mm3 (150-375); Red Blood Count 4.02 M/mm3 (4.2-5.4); Red Cell Distribution Width 14.2 % (11.5-14.5); White Blood Count 5.8 K/mm3 (4.5-10.0)
[2021-06-09 13:35] LABS: Iron 29 ug/dL (37-170)
[2021-06-09 13:37] LABS: Alanine Aminotransferase 24 U/L (4-35); Albumin Level 4.7 g/dL (3.5-5.1); Alkaline Phosphatase 178 U/L (38-126); Anion Gap 9 mmol/L (8-16); Aspartate Amino Transferase 30 U/L (14-36); Bilirubin,Total 0.5 mg/dL (0.2-1.3); Blood Urea Nitrogen 11 mg/dL (7-17); Calcium 10.3 mg/dL (8.4-10.2); Carbon Dioxide 33 mmol/L (22-30); Chloride 96 mmol/L (98-107); Estimated Glomerular Filt Rate > 60; Glucose 110 mg/dL (65-110); Potassium 4.3 mmol/L (3.4-5.0); Sodium 138 mmol/L (137-145)
[2021-06-09 13:44] LABS: Percent Iron Saturation 8 % (20-50)
[2021-06-09 14:30] LABS: Vitamin B12 > 1000.0 pg/mL (239-931)
== END 2021-06-09 12:27 | disposition home or self-care (01) ==
LOC: ANHLAB 12:32
PROVIDERS: PCP Family Medicine; Visit Provider Internal Medicine Hematology & Oncology
DX: C24.1 Malignant neoplasm of ampulla of Vater (principal)
CPT/HCPCS: 36415; 80053; 82607; 82728; 83540; 83550; 85025

== ENCOUNTER 2021-06-19 07:33 | Outpatient (CLI) | payer MEDICARE, SELFPAY ==
[2021-06-19 07:50] LABS: Basophils Absolute Auto 0.1 K/mm3 (0.0-0.1); Basophils Percent Auto 1.1 % (0.2-1.2); Eosinophils Absolute Auto 0.2 K/mm3 (0-0.3); Eosinophils Percent Auto 4.3 % (0-4.4); Hematocrit 34.2 % (37.0-47.0); Hemoglobin 10.8 g/dL (12.0-15.0); Immature Granulocyte Absolute 0.01 K/mm3 (0.00-0.031); Immature Granulocyte Percent A 0.2 % (0-0.5); Lymphocytes Absolute Auto 2.24 K/mm3 (0.9-3.2); Lymphocytes Percent Auto 40.5 % (18.3-44.2); Mean Corpuscular HGB Conc 31.6 g/dl (32-36); Mean Corpuscular Hemoglobin 25.9 pg (26-34); Mean Platelet Volume 8.8 fl (7.4-10.4); Monocytes Absolute Auto 0.4 K/mm3 (0.1-0.6); Monocytes Percent Auto 7.4 % (2.6-8.5); Neutrophils Absolute Auto 2.6 K/mm3 (1.3-6.7); Neutrophils Percent Auto 46.5 % (45.5-73.1); Platelet Count Result 391 k/mm3 (150-375); Red Blood Count 4.17 M/mm3 (4.2-5.4); Red Cell Distribution Width 14.4 % (11.5-14.5); White Blood Count 5.5 K/mm3 (4.5-10.0)
[2021-06-19 08:03] LABS: INR 0.9; Prothrombin Time 12.2 Seconds (11.1-14.7)
[2021-06-19 08:04] LABS: Partial Thromboplastin Time 26.9 SECONDS (22.3-36.8)
== END 2021-06-19 07:34 | disposition home or self-care (01) ==
PROVIDERS: PCP Family Medicine; Visit Provider Surgery
DX: K86.89 Other specified diseases of pancreas (principal); Z01.818 Encounter for other preprocedural examination
CPT/HCPCS: 36415; 85025; 85610; 85730

== ENCOUNTER 2021-06-21 02:51 | Day surgery (SDC) | payer MEDICARE, SELFPAY ==
[2021-06-16 08:24] VITALS: BMI 25.6
--- NOTE | 2021-06-16 08:46 | PC.NURSE ---
Report to the Outpatient Waiting Room, entrance under the green pavilion located off [facility], at time __1000__ on date _06/21/21__. OR Time: __1200__. - You and your visitor will be asked a series of questions to screen for COVID 19 for your protection. - A mask is required within the hospital. - Only one visitor is allowed at this time. Patient visitors will be guided where to wait when not with patient. Preoperative COVID Testing Requirements: No COVID Test needed if: (proof is required; if not received patient will have Rapid Test prior to entry) - Patient has received COVID Vaccine at least 14 days prior to procedure date or - Patient has positive COVID test result within last 90 days of surgery date. COVID Test needed if above criteria is not met If not COVID vaccinated a COVID test must be conducted within 72 hours of surgery and patient is asked to isolate self from time of testing until procedure. You will go to the [facility] for your COVID testing. The [facility] site is located at the corner [address] [facility]. You will only be called if COVID results are positive and your surgeon may reschedule your elective surgery date. Patients may have clear liquids (water, carbonated beverages, clear teas, apple juice) until 3 hours prior to surgery with a maximum of 20 ounces. - No food from midnight until time of surgery - Infants may have breast milk until 4 hours before surgery, infant formula 6 hours prior to surgery. - Children will be allowed to drink immediately following surgery. If applicable, please bring a bottle or sippy cup to assist with drinking. Juice, water, soda, and popsicles are readily available. For infants on formula, please bring formula the day of surgery. Pacifiers are allowed. Take the following medications with a SIP of water the morning of surgery: __INHALER, NASAL SPRAY IF NEEDED Medications to discontinue per physician Date to take last dose Please no make-up, nail greenlandic, hairspray, perfume, deodorant, or body powder the day of surgery. No jewelry (including any body piercings) or valuables the day of surgery, leave them at home. Please take a shower or bath the night before, or the morning of, surgery with an antibacterial soap. Wear comfortable, loose fitting clothing. Children are encouraged to wear pajamas. - Jewelry must be removed prior to entering the operating room. Rings and piercings that are not removed may be cut off. - The hospital will not accept responsibility for valuables. - Please leave all valuables, including medications, at home the day of surgery. If you are going home after surgery, a licensed interstate bus driver must drive you home. - NO public transportation without another adult. - We recommend that an adult stay with you for 24 hours following discharge. - We also recommend that you do not drive, make important decision, drink alcoholic beverages, or take any drugs that were not prescribed by your health care provider for at least 24 hours after your discharge time. For Pediatric surgeries, we recommend two adults accompany the child home (only one inside the building at this time). Follow any additional instructions given to you from your surgeon. Telephone instructions given to ____PT____and asked if any additional questions and then verbalized understanding. Patient advised to call surgeon office or pre surgery nurse liaison [phone] if any additional questions.
--- NOTE | ~2021-06-21 | XR_ITS ---
EXAMINATION: XR fl guide central line place INDICATION: Central line insertion TECHNIQUE: Two intraoperative fluoroscopic images are submitted for review. Total fluoroscopic time w as 42.7 seconds. COMPARISON: None available FINDINGS: There is a right internal jugular Port-A-Cath ending with its tip in the distal superior ve na cava. Please refer to procedure note for full details. IMPRESSION: 1. Right internal jugular Port-A-Cath ending with its tip in the distal superior vena cava. Reviewed, dictated and finalized at location [facility]. BOX ROUTE DRIVER IMPRESSION: 1. Right internal jugular Port-A-Cath ending with its tip in the distal superio r vena cava.
--- NOTE | ~2021-06-21 | XR_ITS ---
EXAMINATION: XR chest port-a-cath/central INDICATION: Port-A-Cath insertion TECHNIQUE: Portable AP chest at 1338 hours COMPARISON: 09/11/2020 FINDINGS: A right internal jugular Port-A-Cath has been inserted which ends with its tip in the dista l superior vena cava. There is no pleural effusion or pneumothorax. The lungs are free of acute opaci ties. The cardiomediastinal silhouette is normal. There are partially imaged changes of fusion proced ure in the lower cervical spine. IMPRESSION: 1. Right internal jugular Port-A-Cath insertion without acute cardiopulmonary abnormality. Reviewed, dictated and finalized at location [facility]. AL SERVICES DESIGNEE IMPRESSION: 1. Right internal jugular Port-A-Cath insertion without acute cardiopulmonary a bnormality.
[2021-06-21] MEDS: LACTATED RINGERS 1,000 ML 30 ML IV CONT (10:35)
--- NOTE | 2021-06-21 11:20 | WPDANESEPPF ---
Anes - Initial Pre Proc Eval Procedure: Operation Date: 06/21/21 12:00 Proposed Procedures p Port Placement - Sharad Pedroza MD Date/Time: 06/21/21 11:20 Surgeon: Sharad Pedroza MD Pre Op Diagnosis: Ampullary Carcinoma Patient Data Age: 65 Gender: F Height: 1.57 m Weight: 65.4 kg Allergies Allergy/AdvReac Type Severity Reaction Status Date / Time Macrolide Antibiotics Allergy Intermediate ITCHING Verified 06/21/21 10:01 amoxicillin Allergy Unknown Itching Verified 06/21/21 10:01 erythromycin base Allergy Unknown Itching Verified 06/21/21 10:01 naproxen Allergy Unknown Rash Verified 06/21/21 10:01 Penicillins Allergy Unknown Itching Verified 06/21/21 10:01 Sulfa (Sulfonamide Allergy Unknown Dizziness Verified 06/21/21 10:01 Antibiotics) iohexol Allergy Itching Verified 06/21/21 10:01 [From contrast - CT, X-RAY] Contrast Media Allergy Intermediate ITCHING Uncoded 06/21/21 10:01 Home Medications Medication Instructions Recorded Confirmed Type albuterol sulfate 90 mcg/actuation 1 inhalation INHALATION Q4H PRN 07/29/19 06/16/21 History aerosol inhaler alprazolam 1 mg tablet 1 mg PO HS 07/29/19 06/21/21 History fluticasone propionate 50 1 spray NASAL DAILY PRN 07/29/19 06/21/21 History mcg/actuation nasal spray,suspension hydrochlorothiazide 25 mg tablet 37.5 mg PO DAILY 07/29/19 06/21/21 History quinapril 40 mg tablet 80 mg PO DAILY 07/29/19 06/21/21 History sertraline 50 mg tablet 50 mg PO HS 07/29/19 06/21/21 History simvastatin 20 mg tablet 20 mg PO HS 07/29/19 06/21/21 History budesonide-formoterol HFA 160 2 puff INHALATION Q12H #10.2 gm 01/28/20 06/16/21 Rx mcg-4.5 mcg/actuation aerosol inhaler hydrocodone-acetaminophen 1 tablet PO Q6H PRN 06/21/21 06/21/21 History Patient hx anesthesia problems: none Family hx anesthesia problems: none Results Review: All pre-operative results and documents have been reviewed as part of the pre-operative evaluation. PMFSH Past Medical History Medical History Abdominal bloating Anxiety Arthritis Asthma Bronchitis Chronic back pain Coughing DDD (degenerative disc disease) Depression Diarrhea Dilated intrahepatic bile duct Essential hypertension Fibroids GERD (gastroesophageal reflux disease) Helicobacter pylori (H. pylori) Hiatal hernia High cholesterol Hyperlipidemia Hypertension Hypoxia Nausea On home O2 BETTY (obstructive sleep apnea) No longer uses CPAP Overweight (BMI 25.0-29.9) Ana-ampullary neoplasm Post-menopausal Pulmonary hypertension Seasonal allergies Sleep apnea Upper abdominal pain Wears glasses Surgical History Surgical History History of cardiac catheterization History of dilatation and curettage History of hysterectomy History of sinus surgery History of spinal surgery Cervical fusion History of thyroidectomy Goiter removed History of tubal ligation Family History Family History Father Family history of malignant neoplasm Mother Family history of kidney disease Other Arthritis Hypertension Leukemia Social History Social History Social History: The patient lives at home with her who is a durable power deputy commonwealth's attorney for healthcare. The patient is a full code. The patient has 2 children. 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 Patient is an ex-smoker she quit in 2003. She does not use any alcohol marijuana or illicit drugs. Years smoked: 30 Smoking status: Former smoker Tobacco type: cigarettes Second hand tobacco smoke exposure: No Smoking end date: 08/12/03 Additional smoking assessment comments: STATES 1PK TO 1 1/2PK/WEEK/30YRS, QUIT 2003 Alcohol intake: never Substance use: never Substance use
--- NOTE | 2021-06-21 11:34 | PM.HPGS ---
History of Present Illness History of Present Illness Consent: Risks, benefits, and alternatives Of placement of a Port-A-Cath have been discussed and questions answered. Patient agrees to proceed with procedure. 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 She has a pancreatic stent in place and is receiving neoadjuvant chemotherapy prior to any consideration for surgical resection of the pancreas/duodenum. Further chemotherapy is planned by Dr. Newell. Patient is gradually feeling better now that the stent is in place and biopsies have been done. Review of Systems Constitutional: Constitutional: Reports no additional constitutional complaints, Reports fatigue, Denies malaise and Reports weight loss Eyes: Eyes: Denies change in vision and Denies loss of vision ENT: Reports Normal hearing present, Denies change in voice, Denies dizziness, Denies hoarseness and Denies sore throat Comments: History of seasonal allergies history of previous thyroid surgery Cardiovascular: Cardiovascular: Denies chest pain, Denies leg edema and Denies dyspnea Comments: history of coronary artery disease History of hyperlipidemia Respiratory: Respiratory: Denies cough, Denies dyspnea and Denies wheezing Comments: History of sleep apnea, however since losing weight does not use the CPAP in longer. History of Asthma Gastrointestinal: Gastrointestinal: Denies hematochezia, Denies change in bowel habits and Denies heartburn Comments: Did have poor appetite but this is improving. With history of GERD History of H pylori positivity in 2020 Genitourinary: Genitourinary: Denies urinary frequency and Denies urinary incontinence Comments: History of uterine fibroids Neurologic: Reports Normal hearing present, Denies confusion, Denies dizziness, Denies loss of vision, Denies memory loss and Denies seizure-like activity Psychiatric: Psychiatric: Denies confusion, Denies depression and Denies memory loss Comments: History of depression. Endocrine: Endocrine: Denies cold intolerance and Reports fatigue Hematologic/Lymphatic: Hematologic/Lymphatic: Denies easy bleeding and Denies easy bruising Allergic/Immunologic: Allergic/Immunologic: Denies wheezing PMFSH Past Medical History Medical History Abdominal bloating Anxiety Arthritis Asthma Bronchitis Chronic back pain Coughing DDD (degenerative disc disease) Depression Diarrhea Dilated intrahepatic bile duct Essential hypertension Fibroids GERD (gastroesophageal reflux disease) Helicobacter pylori (H. pylori) Hiatal hernia High cholesterol Hyperlipidemia Hypertension Hypoxia Nausea On home O2 BETTY (obstructive sleep apnea) No longer uses CPAP Overweight (BMI 25.0-29.9) Ana-ampullary neoplasm Post-menopausal Pulmonary hypertension Seasonal allergies Sleep apnea Upper abdominal pain Wears glasses Surgical History Surgical History History of cardiac catheterization History of dilatation and curettage History of hysterectomy History of sinus surgery History of spinal surgery Cervical fusion History of thyroidectomy Goiter removed History of tubal ligation Family History Family History Father Family history of malignant neoplasm Mother Family history of kidney disease Other Arthritis Hypertension Leukemia Social History Social History Social History: The patient lives at home with her who is a durable power ip attorney for healthcare. The patient is a full code. The patient has 2 children. 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 Patient is an ex-smoker she quit in 2003. She does not use any alcohol
--- NOTE | 2021-06-21 12:12 | WPDHPUPDATE1 ---
History and Physical Update Update Date/Time: 06/21/21 12:12 History and Physical has been reviewed, including an updated exam of the patient. There are NO changes in the patient's condition. Risks, benefits, and alternatives of placement of a Gypsy-cath have been discussed and questions answered. Patient agrees to proceed with procedure.
[2021-06-21] MEDS: ceFAZolin 2 GM/D5W 50 ML 2 GM/50 ML BAG IVPB (12:20)
[2021-06-21] MEDS: HEPARIN SODIUM 5,000 UNITS/ML VIAL 5000 UNITS IRRIGATION (12:37)
[2021-06-21] MEDS: LIDO 2%/EPINEPHRINE 1:100,000 20 ML VIAL INFILTRATE (13:06)
[2021-06-21 13:22] VITALS: BP 120/77; PULSE 85; RESP 16; O2SAT 96
--- NOTE | 2021-06-21 13:42 | W.PM.PROC2 ---
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 She will be undergoing neoadjuvant chemotherapy prior to consideration for a Whipple procedure to remove the tumor and the head of the pancreas. Findings Normal anatomy of the vascular structures in the right neck. Description of Procedure Patient was seen and marked in the pre-op area prior to coming to the OR. Patient was brought to the operating room. Patient was placed supine on the operating table and general IV sedation was induced. The nurse destination specialist provided oxygen and IV sedation. Patient's head was carefully turned to the left side while in the supine position and the patient's entire neck and anterior chest on both sides was prepped and draped in the usual sterile fashion. Following this the appropriate time-out was completed confirming procedure and patient. We confirmed that all the needed equipment was present in the room. Following this the ultrasound probe was draped into the field and using the probe we carefully identified the carotid artery and jugular vein on the right neck. We then took a picture of the vascular anatomy of the neck and transferred from the ultrasound to the 6Waves chart. I marked the skin directly over the Rt. internal jugular vein. I then used an 11 blade knife to make a small nguyen in the skin. Following this, using the continuous ultrasound guidance, a Cook needle was placed through the skin incision and on into this vein. I then was able to draw back good dark blood. Once this was completed a guidewire using a J-tip was advanced through the needle and then the needle and the guidewire cover were withdrawn. C-arm fluoroscopy was used to confirm that the guidewire was nicely in the venous system. Once this was confirmed with the C - arm, I preceded on by making the pocket for the port on the patient's anterior right chest approximately 3 centimeters below the clavicle overlying the chest wall. Local anesthetic was infiltrated into the skin where there was a transverse incision marked out. Incision was made and we made a pocket inferior to the incision with just a little dissection superior. The Bard low-profile port was tried in the pocket and seemed to fit well. Following this the catheter which had been placed on a tunneling device was tunneled from the port site on the anterior right chest up to the right neck where the small incision had been made slightly larger with an #11 blade knife. Then the catheter was pulled through so that we would have 15 centimeters to put into the central venous system once the dilation took place. Following this we placed the dilator and sheath over the guidewire in the jugular vein and carefully dilated the tract into the central venous system. The guidewire and dilator were then removed, carefully covering the end of the sheath to prevent air embolus. The end of the catheter which had been removed from the tunneling device and the tip checked was then inserted into the sheath and into the neck. I then carefully pulled the 2 arms of the tear-away sheath away as the family service assistant held the catheter in position with a DeBakey forceps. Following this we checked the position of the catheter with C-arm fluoroscopy confirming that the tip seemed to be in the distal superior vena cava near the junction with the right atrium. I felt that it was in good position and so the rest of the catheter was pulled down toward the feet into the port site. We then measured to the appropriate position to cut the catheter to attach it to the port stem. Then the connector sea
[2021-06-21 13:50] VITALS: BP 130/78; PULSE 81; RESP 16; O2SAT 96
[2021-06-21 14:20] VITALS: BP 133/81; PULSE 72; RESP 16
== END 2021-06-21 14:30 | disposition home or self-care (01) ==
PROVIDERS: PCP Family Medicine; Visit Provider Surgery
PROC: (CPT 36561; principal; 2021-06-21 12:00)
DX: C24.1 Malignant neoplasm of ampulla of Vater (principal); Z79.51 Long term (current) use of inhaled steroids; I10 Essential (primary) hypertension; E78.5 Hyperlipidemia, unspecified; J45.909 Unspecified asthma, uncomplicated; F41.8 Other specified anxiety disorders; K21.9 Gastro-esophageal reflux disease without esophagitis; G47.33 Obstructive sleep apnea (adult) (pediatric); Z99.81 Dependence on supplemental oxygen; I27.20 Pulmonary hypertension, unspecified; Z98.1 Arthrodesis status; Z87.891 Personal history of nicotine dependence
CPT/HCPCS: 36561; 36415; 76937; 77001; 85025; 85610; 85730; C1788; J0690; J1644; J2250; J2704; J3010; J7030; J7120

== ENCOUNTER 2021-07-13 14:19 | Emergency (ER) | payer MEDICARE, SELFPAY ==
[2021-07-13 14:41] VITALS: BP 95/71; PULSE 106; RESP 20; TEMP 36.1; O2SAT 100
--- NOTE | 2021-07-13 16:40 | ED.NAVMDI ---
HPI - Nausea/Vomiting/Diarrhea General Chief complaint: Nausea/Vomiting/Diarrhea Stated complaint: low blood pressure Time Seen by Provider: 07/13/21 16:19 Source: patient Mode of arrival: ambulatory Limitations: no limitations History of Present Illness HPI Narrative: Patient is a 65-year-old female complaining of nausea and vomiting accompanied by weakness that started this morning. Patient states that she was recently diagnosed with pancreatic CA, had her first chemotherapy yesterday and this morning she started having nausea and vomiting. Patient also complaining of abdominal pain only when she turns a certain position but she states that it has been ongoing for the past 6 months and that is why he did a CT scan last month and found out she had pancreatic cancer. Patient denies chest pain, shortness of breath, diarrhea, urinary symptoms, fever or chills. Related Data Home Medications Medication Instructions Recorded Confirmed albuterol sulfate 90 mcg/actuation 1 inhalation INHALATION Q4H PRN 07/29/19 07/13/21 aerosol inhaler alprazolam 1 mg tablet 1 mg PO HS 07/29/19 07/13/21 fluticasone propionate 50 1 spray NASAL DAILY PRN 07/29/19 07/13/21 mcg/actuation nasal spray,suspension hydrochlorothiazide 25 mg tablet 37.5 mg PO DAILY 07/29/19 07/13/21 quinapril 40 mg tablet 80 mg PO DAILY 07/29/19 07/13/21 sertraline 50 mg tablet 50 mg PO HS 07/29/19 07/13/21 simvastatin 20 mg tablet 20 mg PO HS 07/29/19 07/13/21 hydrocodone-acetaminophen 1 tablet PO Q6H PRN 06/21/21 07/13/21 Allergies Allergy/AdvReac Type Severity Reaction Status Date / Time Macrolide Antibiotics Allergy Intermediate ITCHING Verified 07/13/21 13:38 amoxicillin Allergy Unknown Itching Verified 07/13/21 13:38 erythromycin base Allergy Unknown Itching Verified 07/13/21 13:38 naproxen Allergy Unknown Rash Verified 07/13/21 13:38 Penicillins Allergy Unknown Itching Verified 07/13/21 13:38 Sulfa (Sulfonamide Allergy Unknown Dizziness Verified 07/13/21 13:38 Antibiotics) iohexol Allergy Itching Verified 07/13/21 13:38 [From contrast - CT, X-RAY] Contrast Media Allergy Intermediate ITCHING Uncoded 07/13/21 13:38 Review of Systems Review of Systems: All systems reviewed & are unremarkable except as noted in HPI and below Constitutional: Constitutional: Denies body ache(s), Denies chills, Denies excessive sweating, Denies fatigue, Denies fever(s), Denies headache(s), Denies lethargy, Denies malaise, Denies weakness and Denies weight loss Eyes: Eyes: Denies blurry vision, Denies change in vision and Denies loss of vision ENT: Denies dizziness, Denies ear discharge, Denies headache(s), Denies lip swelling, Denies epistaxis, Denies nasal congestion, Denies neck pain, Denies throat swelling and Denies tongue swelling Cardiovascular: Cardiovascular: Denies chest pain, Denies chest pain at rest, Denies chest pain with activity, Denies diaphoresis, Denies rapid heart rate, Denies edema, Denies irregular heart rhythm, Denies lightheadedness, Denies palpitations, Denies dyspnea and Denies dyspnea on exertion Respiratory: Respiratory: Denies chest congestion, Denies cough, Denies hemoptysis, Denies dyspnea and Denies dyspnea on exertion Gastrointestinal: Gastrointestinal: Denies melena, Denies hematochezia, Denies diarrhea and Denies hematemesis Musculoskeletal: Musculoskeletal: Denies abnormal gait, Denies deformity, Denies joint swelling, Denies limited range of motion, Denies neck pain and Denies numbness Neurologic: Denies Abnormal speech present, Denies abnormal gait, Denies confusion, Denies dizziness, Denies headache(s), Denies focal weakness, Denies loss of vision, Denies numbness, Denies Other visual disturbances, Denies Sensory deficit (Neuro) and Denies weakness Psychiatric: Psychiatric: Denies confusion, Denies depression, Denies auditory hallucinations, Denies homicidal ideation and Denies suicidal ideation Endocrine: Endocrine: Denies cold intoleranc
[2021-07-13] MEDS: LACTATED RINGERS 1,000 ML 999 ML IV CONT (16:43)
[2021-07-13] MEDS: ONDANSETRON INJ 4 MG/2 ML VIAL IV PUSH (16:49)
--- NOTE | 2021-07-13 16:50 | PC.NURSE ---
pt states her first round of chemo was Saturday and she started to feel nauseous today after attempting to take a pain pill, she went to the cancer center today after a medication was completed and they instructed her to come to the ER
[2021-07-13 17:31] LABS: Basophils Percent Auto 0.4 % (0.2-1.2); Eosinophils Absolute Auto 0.1 K/mm3 (0-0.3); Eosinophils Percent Auto 1.1 % (0-4.4); Hematocrit 28.8 % (37.0-47.0); Hemoglobin 9.5 g/dL (12.0-15.0); Immature Granulocyte Absolute 0.01 K/mm3 (0.00-0.031); Immature Granulocyte Percent A 0.2 % (0-0.5); Lymphocytes Absolute Auto 1.21 K/mm3 (0.9-3.2); Lymphocytes Percent Auto 25.7 % (18.3-44.2); Mean Corpuscular Hemoglobin 26.2 pg (26-34); Mean Corpuscular Volume 79.3 fl (80-100); Mean Platelet Volume 8.7 fl (7.4-10.4); Monocytes Absolute Auto 0.2 K/mm3 (0.1-0.6); Monocytes Percent Auto 4.9 % (2.6-8.5); Neutrophils Absolute Auto 3.2 K/mm3 (1.3-6.7); Neutrophils Percent Auto 67.7 % (45.5-73.1); Platelet Count Result 374 k/mm3 (150-375); Red Blood Count 3.63 M/mm3 (4.2-5.4); Red Cell Distribution Width 14.1 % (11.5-14.5); White Blood Count 4.7 K/mm3 (4.5-10.0)
[2021-07-13 17:43] LABS: Alanine Aminotransferase 19 U/L (4-35); Albumin Level 4.2 g/dL (3.5-5.1); Alkaline Phosphatase 81 U/L (38-126); Anion Gap 8 mmol/L (8-16); Aspartate Amino Transferase 27 U/L (14-36); Bilirubin,Total 0.5 mg/dL (0.2-1.3); Blood Urea Nitrogen 14 mg/dL (7-17); Calcium 9.6 mg/dL (8.4-10.2); Carbon Dioxide 27 mmol/L (22-30); Chloride 94 mmol/L (98-107); Estimated CRCL calculation 53 ml/min; Estimated Glomerular Filt Rate > 60; Glucose 111 mg/dL (65-110); Lipase 129 U/L (23-300); Potassium 3.3 mmol/L (3.4-5.0); Sodium 129 mmol/L (137-145)
--- NOTE | 2021-07-13 18:00 | PC.NURSE ---
pt had episode of vomiting,
--- NOTE | 2021-07-13 18:00 | PC.NURSE ---
Dr. Ramirez aware states to hold potassium, ordered Phenergan
[2021-07-13] MEDS: SODIUM CHLORIDE 0.9% IV 1,000 ML 999 ML IV CONT (18:51)
[2021-07-13] MEDS: PROMETHAZINE HCL 25 MG/ML AMPUL 12.5 MG IV PUSH (18:51)
[2021-07-13 19:13] VITALS: BP 146/77; PULSE 80; RESP 14; TEMP 37.3; O2SAT 99
[2021-07-13] MEDS: HEPARIN SODIUM LOCK FLUSH 500 UNITS/5 ML VIAL (20:58)
[2021-07-13] MEDS: POTASSIUM CHLORIDE 20 MEQ TABLET PO (20:58)
[2021-07-13] MEDS: HYDROmorphone HCL INJ (*CRX) 1 MG/ML SYR 0.5 MG IV PUSH (20:58)
[2021-07-13 21:03] VITALS: BP 136/81; PULSE 88; RESP 15; O2SAT 100
== END 2021-07-13 21:06 | disposition home or self-care (01) ==
PROVIDERS: Emergency Provider Emergency Medicine; PCP Family Medicine
DX: E87.6 Hypokalemia (principal); R11.2 Nausea with vomiting, unspecified; C25.9 Malignant neoplasm of pancreas, unspecified; F41.9 Anxiety disorder, unspecified; M19.90 Unspecified osteoarthritis, unspecified site; G89.29 Other chronic pain; F32.A Depression, unspecified; I10 Essential (primary) hypertension; E78.00 Pure hypercholesterolemia, unspecified; E78.5 Hyperlipidemia, unspecified; G47.33 Obstructive sleep apnea (adult) (pediatric); Z87.09 Personal history of other diseases of the respiratory system; Z87.891 Personal history of nicotine dependence
CPT/HCPCS: 36415; 80053; 83690; 85025; 96361; 96374; 96375; 99213; 99284; A9270; G0463; J1170; J1642; J2405; J2550; J7030; J7120

== ENCOUNTER 2021-07-31 10:30 | Outpatient (RCR) | payer MEDICARE, SELFPAY ==
[2021-07-31] MEDS: diphenhydrAMINE HCl CAP 25 MG CAPSULE PO (11:55)
[2021-07-31] MEDS: SODIUM CHLORIDE 0.9% IV 250 ML 30 ML IV CONT (12:55)
[2021-07-31 12:58] VITALS: BP 133/79; PULSE 69; RESP 16; TEMP 36.2; O2SAT 99
[2021-07-31 13:13] VITALS: BP 126/75; PULSE 73; RESP 16; TEMP 36.6; O2SAT 98
[2021-07-31 14:13] VITALS: BP 124/78; BP 128/78; PULSE 67; RESP 17; RESP 18; TEMP 36.7; O2SAT 99
[2021-07-31 15:13] VITALS: BP 143/84; PULSE 74; RESP 16; TEMP 36.6; O2SAT 100
[2021-07-31 16:05] VITALS: BP 146/82; PULSE 73; RESP 16; TEMP 36.6; O2SAT 100
[2021-07-31] MEDS: HEPARIN SODIUM LOCK FLUSH 500 UNITS/5 ML VIAL (16:10)
== END 2021-10-29 23:59 | disposition home or self-care (01) ==
LOC: ANHCPCTRAN 10:30
PROVIDERS: PCP Family Medicine; Visit Provider Internal Medicine Hematology & Oncology
DX: C24.1 Malignant neoplasm of ampulla of Vater (principal)
CPT/HCPCS: 99199; 36415; 36430; 86850; 86900; 86901; 86920; A9270; J1642; J7050; P9016

== ENCOUNTER 2021-09-03 10:52 | Emergency (ER) | payer MEDICARE, MEDICAID, SELFPAY ==
[2021-09-03] VITALS (25 sets, daily range): BP systolic 98–129; BP diastolic 63–89; PULSE 71–118; RESP 13–21; TEMP 37.2; O2SAT 97–100
--- NOTE | ~2021-09-03 | XR_ITS ---
XR chest port-a-cath/central DATE: 09/03/2021 11:25 INDICATION: Port-A-Cath check. Persistent nausea. TECHNIQUE: Portable AP chest on 09/03/2021 at 1116 hours COMPARISON: 06/21/2021 portable AP chest FINDINGS: Right internal jugular Port-A-Cath is noted, catheter tip overlying the superior vena cava, unchanged in appearance since 06/21/2021. Status post lower anterior cervical spine surgical fusion. Normal heart size. No pulmonary infiltrate or consolidation, pleural effusion or pulmonary vascular c ongestion or pneumothorax. IMPRESSION: No active cardiac pulmonary disease Right Port-A-Cath Status post anterior lower cervical spine surgical fusion Reviewed, dictated and finalized at [facility]. Reviewed, dictated and finalized at [facility]. STRIPPER
[2021-09-03 12:07] LABS: Basophils Percent Auto 0.5 % (0.2-1.2); Eosinophils Absolute Auto 0.1 K/mm3 (0-0.3); Eosinophils Percent Auto 0.9 % (0-4.4); Hematocrit 35.9 % (37.0-47.0); Hemoglobin 11.7 g/dL (12.0-15.0); Immature Granulocyte Absolute 0.03 K/mm3 (0.00-0.031); Immature Granulocyte Percent A 0.4 % (0-0.5); Lymphocytes Absolute Auto 1.24 K/mm3 (0.9-3.2); Lymphocytes Percent Auto 15.9 % (18.3-44.2); Mean Corpuscular HGB Conc 32.6 g/dl (32-36); Mean Corpuscular Hemoglobin 26.9 pg (26-34); Mean Corpuscular Volume 82.5 fl (80-100); Mean Platelet Volume 8.7 fl (7.4-10.4); Monocytes Absolute Auto 0.1 K/mm3 (0.1-0.6); Monocytes Percent Auto 1.7 % (2.6-8.5); Neutrophils Absolute Auto 6.3 K/mm3 (1.3-6.7); Neutrophils Percent Auto 80.6 % (45.5-73.1); Platelet Count Result 355 k/mm3 (150-375); Red Blood Count 4.35 M/mm3 (4.2-5.4); Red Cell Distribution Width 15.7 % (11.5-14.5); White Blood Count 7.8 K/mm3 (4.5-10.0)
[2021-09-03 12:25] LABS: Alanine Aminotransferase 27 U/L (4-35); Albumin Level 4.8 g/dL (3.5-5.1); Alkaline Phosphatase 138 U/L (38-126); Anion Gap 12 mmol/L (8-16); Aspartate Amino Transferase 37 U/L (14-36); Bilirubin,Total 0.5 mg/dL (0.2-1.3); Blood Urea Nitrogen 19 mg/dL (7-17); Calcium 10.3 mg/dL (8.4-10.2); Carbon Dioxide 28 mmol/L (22-30); Chloride 96 mmol/L (98-107); Estimated Glomerular Filt Rate > 60; Glucose 113 mg/dL (65-110); Lipase 116 U/L (23-300); Potassium 3.8 mmol/L (3.4-5.0); Sodium 136 mmol/L (137-145)
[2021-09-03] MEDS: SODIUM CHLORIDE 0.9% IV 1,000 ML 999 ML IV CONT (12:33)
[2021-09-03] MEDS: ONDANSETRON INJ 4 MG/2 ML VIAL IV PUSH (12:33)
--- NOTE | 2021-09-03 14:02 | ED.NAVMDI ---
HPI - Nausea/Vomiting/Diarrhea General Chief complaint: Nausea/Vomiting/Diarrhea Stated complaint: chemo tx- n/v/d Time Seen by Provider: 09/03/21 10:59 History of Present Illness HPI Narrative: Patient is a 66-year-old female who presents ER with nausea and vomiting. Ongoing since she received her chemoinfusion 4 days ago. This is typical for her only is lasted longer than expected. She also reports she has developed diarrhea which is abnormal for her. No fevers or chills or sweats. Unable to control her emesis with Zofran at home. No chest pain or chest pressure. No abdominal pain. Patient has pancreatic cancer for which she is being treated by Dr. Newell. Related Data Home Medications Medication Instructions Recorded Confirmed albuterol sulfate 90 mcg/actuation 1 inhalation INHALATION Q4H PRN 07/29/19 08/30/21 aerosol inhaler alprazolam 1 mg tablet 1 mg PO HS 07/29/19 08/30/21 fluticasone propionate 50 1 spray NASAL DAILY PRN 07/29/19 08/30/21 mcg/actuation nasal spray,suspension hydrochlorothiazide 25 mg tablet 37.5 mg PO DAILY 07/29/19 08/30/21 quinapril 40 mg tablet 80 mg PO DAILY 07/29/19 08/30/21 sertraline 50 mg tablet 50 mg PO HS 07/29/19 08/30/21 simvastatin 20 mg tablet 20 mg PO HS 07/29/19 08/30/21 hydrocodone-acetaminophen 1 tablet PO Q6H PRN 06/21/21 08/30/21 prochlorperazine maleate 10 mg PO Q6H PRN 08/30/21 08/30/21 Allergies Allergy/AdvReac Type Severity Reaction Status Date / Time Macrolide Antibiotics Allergy Intermediate ITCHING Verified 08/30/21 08:46 amoxicillin Allergy Unknown Itching Verified 08/30/21 08:46 erythromycin base Allergy Unknown Itching Verified 08/30/21 08:46 naproxen Allergy Unknown Rash Verified 08/30/21 08:46 Penicillins Allergy Unknown Itching Verified 08/30/21 08:46 Sulfa (Sulfonamide Allergy Unknown Dizziness Verified 08/30/21 08:46 Antibiotics) iohexol Allergy Itching Verified 08/30/21 08:46 [From contrast - CT, X-RAY] Contrast Media Allergy Intermediate ITCHING Uncoded 08/30/21 08:46 Review of Systems Review of Systems: All systems reviewed & are unremarkable except as noted in HPI and below Constitutional: Constitutional: Denies chills, Denies fever(s) and Denies weakness ENT: Denies nasal congestion and Denies sore throat Cardiovascular: Cardiovascular: Denies chest pain, Denies rapid heart rate and Denies radiating jaw, neck or arm pain Gastrointestinal: Gastrointestinal: Denies abdominal pain, Reports diarrhea, Reports nausea and Reports vomiting Genitourinary: Genitourinary: Denies nocturia, Denies dysuria and Denies flank pain PMFSH Past Medical History Medical History Abdominal bloating Anxiety Arthritis Asthma Bronchitis Chronic back pain Coughing DDD (degenerative disc disease) Depression Diarrhea Dilated intrahepatic bile duct Essential hypertension Fibroids GERD (gastroesophageal reflux disease) Helicobacter pylori (H. pylori) Hiatal hernia High cholesterol Hyperlipidemia Hypertension Hypoxia Nausea On home O2 BETTY (obstructive sleep apnea) No longer uses CPAP Overweight (BMI 25.0-29.9) Ana-ampullary neoplasm Post-menopausal Pulmonary hypertension Seasonal allergies Sleep apnea Upper abdominal pain Wears glasses Surgical History Surgical History History of cardiac catheterization History of dilatation and curettage History of hysterectomy History of sinus surgery History of spinal surgery Cervical fusion History of thyroidectomy Goiter removed History of tubal ligation Family History Family History Father Family history of malignant neoplasm Mother Family history of kidney disease Other Arthritis Hypertension Leukemia Social History Social History Social History: The patient nevaeh
[2021-09-03] MEDS: PROMETHAZINE HCL 25 MG/ML AMPUL 12.5 MG IV PUSH (14:17)
[2021-09-03] MEDS: BELLADONNA ALK/PHENOB ELIX 10 ML, MAG HYDROX/ALUMINUM HYD/SIMETH 30 ML, LIDOCAINE HCL 2... PO (15:18)
[2021-09-03] MEDS: HEPARIN SODIUM LOCK FLUSH 500 UNITS/5 ML VIAL (16:33)
== END 2021-09-03 16:55 | disposition home or self-care (01) ==
PROVIDERS: Emergency Provider Emergency Medicine; PCP Family Medicine
DX: R11.2 Nausea with vomiting, unspecified (principal); K21.9 Gastro-esophageal reflux disease without esophagitis; C25.9 Malignant neoplasm of pancreas, unspecified; J45.909 Unspecified asthma, uncomplicated; I10 Essential (primary) hypertension; I27.20 Pulmonary hypertension, unspecified; E78.5 Hyperlipidemia, unspecified; K44.9 Diaphragmatic hernia without obstruction or gangrene; G47.33 Obstructive sleep apnea (adult) (pediatric); M19.90 Unspecified osteoarthritis, unspecified site; E66.3 Overweight; F32.A Depression, unspecified; F41.9 Anxiety disorder, unspecified; Z99.81 Dependence on supplemental oxygen; Z98.1 Arthrodesis status; Z87.891 Personal history of nicotine dependence; Z79.899 Other long term (current) drug therapy
CPT/HCPCS: 36415; 80053; 83690; 85025; 96361; 96374; 96375; 99284; A9270; J1642; J2405; J2550; J7030

== ENCOUNTER 2021-11-13 08:31 | Outpatient (CLI) | payer MEDICARE, MEDICAID, SELFPAY ==
--- NOTE | ~2021-11-13 | CT_ITS ---
EXAMINATION: CT chest abdomen pelvis w con EXAM DATE: 11/13/2021 09:01 INDICATION: Ampullary adenocarcinoma. TECHNIQUE: Spiral CT of the chest, abdomen and pelvis was performed following intravenous injection o f 100 mL Omnipaque 350. Axial, coronal and sagittal images chest, abdomen and pelvis were reviewed. Coronal maximum intensity pixel images of chest reviewed. The dose-length product (DLP) for this ex amination was 448.06 mGy-cm. The exposure was tailored according to patient size (auto mA exposure c ontrol), and iterative reconstruction (ASIR) was used as additional dose reduction technique. Compari son is made to prior examination from 05/18/2021. FINDINGS: CHEST: There is a right-sided portacatheter. Previously seen left basilar 7 mm nodule now measures ab out 5 mm, noncalcified granuloma. Several other scattered noncalcified granulomas unchanged, 4 mm or less. There are no pleural or pericardial effusions. Tracheobronchial tree is patent. There is n o mediastinal, hilar or axillary lymphadenopathy. There is no pneumothorax. There is cardiomegaly . There is mild coronary arterial calcification, arterial sclerosis. ABDOMEN PELVIS: Interval placement of a common bile duct and a pancreatic duct stent. Interval develo pment of pneumobilia. Patient's known ampullary cancer is not specifically identified. There are scat tered fluid density liver lesions measuring up to about 4.4 cm. There are several left liver lobe sub centimeter lesions too small to confidently characterize, indicated on axial images 86, 92. Pancreas, spleen, adrenal glands are unremarkable. Gas within the gallbladder but gallbladder otherwise unrema rkable. Portal and splenic veins are patent. Kidneys enhance symmetrically. There is no hydronephr osis. The uterus is not identified and has likely been surgically resected. The bladder is unremar kable. There is no retroperitoneal or pelvic lymphadenopathy. The appendix is normal. The stomach and small bowel are unremarkable. There is expected amount of c olonic stool. No free intraperitoneal gas. There are no osteoblastic or osteolytic lesions identi fied. There is mild lumbar levoscoliosis. IMPRESSION: 1. Couple of left liver lobe lesions which could be cyst but can't exclude metastatic disease. Other Liver Cyst unchanged. 2. Biliary, pancreatic stents in position. 3. Cardiomegaly. Reviewed, dictated and finalized at location A. IMPRESSION: 1. Couple of left liver lobe lesions which could be cyst but can't exclude met astatic disease. Other Liver Cyst unchanged. 2. Biliary, pancreatic stents in position. 3. Cardiomegaly.
== END 2021-11-13 08:32 | disposition home or self-care (01) ==
PROVIDERS: PCP Family Medicine; Visit Provider Internal Medicine Hematology & Oncology
DX: C24.1 Malignant neoplasm of ampulla of Vater (principal); K76.9 Liver disease, unspecified; I51.7 Cardiomegaly; Z96.89 Presence of other specified functional implants
CPT/HCPCS: 71260; 74177; Q9967

== ENCOUNTER 2021-11-30 12:17 | Outpatient (CLI) | payer MEDICARE, MEDICAID, SELFPAY ==
--- NOTE | ~2021-11-30 | MR_ITS ---
EXAMINATION: MR MRCP wo/w con/w 3D wo ind DATE: 11/30/2021 13:26 INDICATION: Pancreatic cyst TECHNIQUE: Magnetic resonance imaging (MRI) of the abdomen was performed without and with 13 mL Multi aguila intravenous contrast. Sequences included coronal T2-weighted SS-FSE, coronal T2-weighted FS SS- FSE, coronal T2-weighted FS FIESTA, axial T2-weighted FS FIESTA, axial T2-weighted FIESTA, sagittal T 2-weighted SS-FSE, axial T1-weighted dual-echo FSPGR, axial T2-weighted SS-FSE, axial T1-weighted LAV A, axial T2-weighted STIR FSE. Thick-slab T2-weighted FRFSE-XL images were obtained for magnetic reso nance cholangiopancreatography (MRCP). Rotating maximum intensity projection 3-D reconstructions of t he volumetric data were created by the technologist. Postcontrast sequences included a time course of axial T1-weighted LAVA. COMPARISON: CT dated 11/13/2021 and MRI dated 05/19/2021 FINDINGS: ABDOMEN MRI: Arch size is normal. No pericardial or pleural effusion. Extensive susceptibility artifact in the sub cutaneous fat at the right axilla corresponding to surgical clip in the prior axillary lymph node dis section. Again seen are multiple T2 hyperintense nonenhancing hepatic cysts, the largest 2 measuring 4.2 cm and 3.8 cm in maximal diameters. Small amount of pneumobilia in the nondependent aspect of the normal gallbladder. There is additional small amount of gas within the stented common bile duct. The re is mild/moderate mildly T2 hyperintense nonenhancing cyst at the tail of the pancreas. The previou sly seen hypoenhancing mass at the ampulla of the pancreas which extend into duodenum is not apprecia germán on the current study. No postoperative changes of Whipple procedure identified in the decreased l ikely reflects response to chemotherapy treatment. Liver, spleen, bilateral adrenal glands and right kidney are normal. 4 mm T2 hyperintense nonenhancing cysts at the upper pole of the left kidney. No p athologically enlarged abdominal adenopathy. The visualized bowels are unremarkable. Mild lumbar levo scoliosis . Severe left-sided predominant disc height loss with fibrofatty degenerative endplate craven ges at L4-L5. Otherwise mild spondylosis. ABDOMEN MRCP: Decreased dilation of the common bile duct which currently measures up to 8-9 mm in maximal diameter. No intrahepatic biliary ductal dilation. Main pancreatic duct is normal in caliber. IMPRESSION: 1. Resolution of prior intrahepatic biliary ductal dilation post stenting of the common bile duct. 2. resolution of a previously seen mass at the ampulla of Vater reportedly an ampullary carcinoma wit hout evident postoperative change of interval Whipple procedure suggesting this represents response t o chemotherapy. No evident residual or metastatic disease. 2. No significant change in a 6 mm cystic lesion at the tail of the pancreas. The differential diagno sis remains pseudocyst, intraductal papillary mucinous neoplasm (IPMN), mucinous cystic neoplasm (MCN ), and the less common serous cystadenoma and neuroendocrine tumor. Correlate for history of pancreat itis. Reviewed, dictated and finalized at location A. IMPRESSION: 1. Resolution of prior intrahepatic biliary ductal dilation post stenting of th e common bile duct. 2. resolution of a previously seen mass at the ampulla of Vater reportedly an a mpullary carcinoma without evident postoperative change of interval Whipple pro cedure suggesting this represents response to chemotherapy. No evident residual or metastatic disease. 2. No significant change in a 6 mm cystic lesion at the tail of the pancreas. T he differential diagnosis remains pseudocyst, intraductal papillary mucinous ne oplasm (IPMN), mucinous cystic neoplasm (MCN), and the less common serous cysta denoma a
== END 2021-11-30 12:18 | disposition home or self-care (01) ==
PROVIDERS: PCP Family Medicine; Visit Provider Internal Medicine Hematology & Oncology
DX: K86.2 Cyst of pancreas (principal)
CPT/HCPCS: 74183; 76376; A9577

== ENCOUNTER 2021-12-19 18:36 | Emergency (ER) | payer MEDICARE, MEDICAID, SELFPAY ==
--- NOTE | ~2021-12-19 | CT_ITS ---
EXAMINATION: CT abdomen pelvis wo con DATE: 12/19/2021 22:18 INDICATION: right flank pain TECHNIQUE: Computed tomography (CT) of the abdomen and pelvis was performed without intravenous contr ast. Automated exposure control and iterative reconstruction technique were employed. The dose-length product was 421.38 mGy-cm. COMPARISON: 11/13/2021 FINDINGS: Lower thorax: Unremarkable Liver: Multiple cysts. Multiple subcentimeter hypodensities are less well seen without contrast but g rossly stable. Pneumobilia. Biliary/Gallbladder: Gas-containing, otherwise normal. Patent biliary stent. Spleen: Normal. Pancreas: No mass or duct dilation. Pancreatic duct stent, in stable position. Adrenals:No mass. Kidneys: No mass, stone, or hydronephrosis. GI tract: No small or large bowel dilation. Normal appendix. Mesentery/Peritoneum: No ascites, mass, or free air. Retroperitoneum: No mass. Pelvis: Uterus is absent. Moderately bladder with wall thickening. Soft Tissues: Soft tissues and body wall unremarkable. Bones: No acute osseous finding. IMPRESSION: Possible cystitis in the appropriate clinical context. Otherwise no acute abdominopelvic process. Reviewed, dictated and finalized at location K. IMPRESSION: Possible cystitis in the appropriate clinical context. Otherwise no acute abdom inopelvic process.
[2021-12-19 18:51] VITALS: BP 140/79; PULSE 112; RESP 20; TEMP 37.6; O2SAT 100
[2021-12-19 20:08] LABS: Basophils Percent Auto 0.4 % (0.2-1.2); Eosinophils Percent Auto 0.4 % (0-4.4); Hematocrit 39.1 % (37.0-47.0); Hemoglobin 12.6 g/dL (12.0-15.0); Immature Granulocyte Absolute 0.04 K/mm3 (0.00-0.031); Immature Granulocyte Percent A 0.4 % (0-0.5); Lymphocytes Absolute Auto 1.31 K/mm3 (0.9-3.2); Lymphocytes Percent Auto 11.9 % (18.3-44.2); Mean Corpuscular HGB Conc 32.2 g/dl (32-36); Mean Corpuscular Hemoglobin 28.1 pg (26-34); Mean Corpuscular Volume 87.3 fl (80-100); Mean Platelet Volume 9.4 fl (7.4-10.4); Monocytes Absolute Auto 0.8 K/mm3 (0.1-0.6); Monocytes Percent Auto 7.1 % (2.6-8.5); Neutrophils Absolute Auto 8.8 K/mm3 (1.3-6.7); Neutrophils Percent Auto 79.8 % (45.5-73.1); Platelet Count Result 228 k/mm3 (150-375); Red Blood Count 4.48 M/mm3 (4.2-5.4); Red Cell Distribution Width 15.9 % (11.5-14.5)
[2021-12-19 20:17] LABS: Lactic Acid Reflex 1.7 mmol/L (0.7-2.0)
[2021-12-19 20:18] LABS: Alanine Aminotransferase 20 U/L (6-35); Albumin Level 4.6 g/dL (3.5-5.1); Alkaline Phosphatase 115 U/L (38-126); Anion Gap 8 mmol/L (8-16); Aspartate Amino Transferase 35 U/L (14-36); Bilirubin,Total 0.2 mg/dL (0.2-1.3); Blood Urea Nitrogen 17 mg/dL (7-17); Calcium 9.4 mg/dL (8.4-10.2); Carbon Dioxide 27 mmol/L (22-30); Chloride 101 mmol/L (98-107); Estimated CRCL calculation 42 ml/min; Estimated Glomerular Filt Rate > 60; Glucose 103 mg/dL (65-110); Lipase 243 U/L (23-300); Potassium 3.9 mmol/L (3.4-5.0); Sodium 136 mmol/L (137-145)
[2021-12-19 20:29] LABS: Appearance Urine Clear (Clear); Bilirubin Urine Negative (Negative); Color Urine Yellow (Yellow); Glucose Urine UA Negative (Negative); Ketones Urine Negative (Negative); Leukocyte Esterase Ur Negative LEU/UL (Negative); Nitrate Urine Negative (Negative); Protein Urine Negative (Negative); Urobilinogen Urine 0.2 mg/dL (<2.0); pH Urine 5.5 (5.0-9.0)
[2021-12-19 20:37] LABS: RBC Urine 0-2 /hpf (0-2)
[2021-12-19 20:41] LABS: Add Urine Microscopic? YES; Blood Urine Trace-Intact (Negative)
[2021-12-19 20:49] VITALS: BP 121/75; PULSE 100; TEMP 38.2; O2SAT 100
[2021-12-19 21:35] VITALS: PULSE 98; RESP 22; O2SAT 97
--- NOTE | 2021-12-19 22:01 | ED.GENADULT ---
HPI - General Adult General Chief complaint: Abdominal Pain Stated complaint: lower abd pain Time Seen by Provider: 12/19/21 21:36 Source: patient, family and RN notes reviewed Mode of arrival: ambulatory Limitations: no limitations History of Present Illness HPI narrative: 66-year-old female with history of pancreatic cancer presenting to the emergency department for evaluation of right flank pain and right-sided abdominal pain. Patient also describes right lower back pain that she feels is muscular in nature. Patient states she was standing by her sink when she had onset of the pain. Patient denies any falls or injuries. Patient denies any associated nausea vomiting or diarrhea. Patient states the pain has been persistent since it started. Patient is following up with Dr. Newell for pancreatic cancer. Patient had her last chemotherapy on October 31. Patient does have pending surgery with Dr. Champagne at [facility] for removal of the tumor. Related Data Home Medications Medication Instructions Recorded Confirmed albuterol sulfate 90 mcg/actuation 1 inhalation INHALATION Q4H PRN 07/29/19 10/31/21 aerosol inhaler alprazolam 1 mg tablet 1 mg PO HS 07/29/19 10/31/21 fluticasone propionate 50 1 spray NASAL DAILY PRN 07/29/19 10/31/21 mcg/actuation nasal spray,suspension hydrochlorothiazide 25 mg tablet 37.5 mg PO DAILY 07/29/19 10/31/21 quinapril 40 mg tablet 80 mg PO DAILY 07/29/19 10/31/21 sertraline 50 mg tablet 50 mg PO HS 07/29/19 10/31/21 simvastatin 20 mg tablet 20 mg PO HS 07/29/19 10/31/21 hydrocodone-acetaminophen 1 tablet PO Q6H PRN 06/21/21 10/31/21 prochlorperazine maleate 10 mg PO Q6H PRN 08/30/21 10/31/21 potassium chloride 20 meq PO DAILY 10/17/21 10/31/21 Allergies Allergy/AdvReac Type Severity Reaction Status Date / Time Macrolide Antibiotics Allergy Intermediate ITCHING Verified 10/31/21 09:13 amoxicillin Allergy Unknown Itching Verified 10/31/21 09:13 erythromycin base Allergy Unknown Itching Verified 10/31/21 09:13 naproxen Allergy Unknown Rash Verified 10/31/21 09:13 Penicillins Allergy Unknown Itching Verified 10/31/21 09:13 Sulfa (Sulfonamide Allergy Unknown Dizziness Verified 10/31/21 09:13 Antibiotics) iohexol Allergy Itching Verified 10/31/21 09:13 [From contrast - CT, X-RAY] Contrast Media Allergy Intermediate ITCHING Uncoded 10/31/21 09:13 Review of Systems Review of Systems: CONSTITUTIONAL: Denies fever, chills, or sweats. EYES: Denies visual changes, redness, or discharge. ENT: Denies rhinorrhea, congestion, sore throat, or otalgia. CARDIOVASCULAR: Denies chest pain, palpitations, or edema. RESPIRATORY: Denies cough or dyspnea. GASTROINTESTINAL: See HPI GENITOURINARY: Denies dysuria or hematuria. SKIN: Denies rash or itching. MUSCULOSKELETAL: Right lower back pain NEUROLOGIC: Denies headache, numbness, or weakness. [facility] Past Medical History Medical History Abdominal bloating Anxiety Arthritis Asthma Bronchitis Chronic back pain Coughing DDD (degenerative disc disease) Depression Diarrhea Dilated intrahepatic bile duct Essential hypertension Fibroids GERD (gastroesophageal reflux disease) Helicobacter pylori (H. pylori) Hiatal hernia High cholesterol Hyperlipidemia Hypertension Hypoxia Nausea On home O2 BETTY (obstructive sleep apnea) No longer uses CPAP Overweight (BMI 25.0-29.9) Ana-ampullary neoplasm Post-menopausal Pulmonary hypertension Seasonal allergies Sleep apnea Upper abdominal pain Wears glasses Surgical History Surgical History History of cardiac catheterization History of dilatation and curettage History of hysterectomy History of sinus surgery History of spinal surgery Cervical fusion History of thyroidectomy Goiter removed History of tubal ligation Family History Family History (Reviewed 07/13/21 @ 16:44 by Jewel Hall
--- NOTE | 2021-12-19 22:20 | PC.NURSE ---
THis RN talked to ED Charge nurse to make sure orders were correct for port access order and placement before use. Patient port accessed with no difficulty and had good pull back and flush at this time.
[2021-12-19 23:00] VITALS: PULSE 93; RESP 17; O2SAT 99
[2021-12-19] MEDS: SODIUM CHLORIDE 0.9% IV 1,000 ML 999 ML IV CONT (23:42)
[2021-12-19] MEDS: HYDROmorphone HCL INJ (*CRX) 1 MG/ML SYR IV PUSH (23:43)
[2021-12-19 23:55] VITALS: PULSE 101; RESP 20; O2SAT 95
[2021-12-20] VITALS (14 sets, daily range): BP systolic 112–132; BP diastolic 68–75; PULSE 72–102; RESP 16–26; O2SAT 93–100
[2021-12-20 01:06] LABS: Influenza A QL RT-PCR Negative (Negative); Influenza B QL RT-PCR Negative (Negative); SARS-CoV-2 RNA PCR Negative
[2021-12-20] MEDS: HEPARIN SODIUM LOCK FLUSH 500 UNITS/5 ML VIAL IV PUSH (02:08)
== END 2021-12-20 02:45 | disposition home or self-care (01) ==
PROVIDERS: Emergency Medicine; Emergency Provider Emergency Medicine; PCP Family Medicine
DX: R10.9 Unspecified abdominal pain (principal); C25.9 Malignant neoplasm of pancreas, unspecified; Z20.822 Contact with and (suspected) exposure to COVID-19; J45.909 Unspecified asthma, uncomplicated; I10 Essential (primary) hypertension; K21.9 Gastro-esophageal reflux disease without esophagitis; E78.5 Hyperlipidemia, unspecified; G47.33 Obstructive sleep apnea (adult) (pediatric); Z99.81 Dependence on supplemental oxygen; I27.20 Pulmonary hypertension, unspecified; E66.3 Overweight; Z68.25 Body mass index [BMI] 25.0-25.9, adult; F41.9 Anxiety disorder, unspecified; F32.A Depression, unspecified; Z92.21 Personal history of antineoplastic chemotherapy
CPT/HCPCS: 36415; 74176; 80053; 81001; 83605; 83690; 85025; 87502; 96361; 96374; 99284; C9803; J1170; J1642; J7030; U0003; U0005

== ENCOUNTER 2022-03-19 07:24 | Outpatient (CLI) | payer MEDICARE, MEDICAID, SELFPAY ==
--- NOTE | ~2022-03-19 | CT_ITS ---
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 Automated exposure control and iterative reconstruction technique were employe d. Exam dose: 383.30 mGy-cm total exam DLP. COMPARISON: 12/19/2021 CT abdomen pelvis FINDINGS: 3.7 mm calcified pleura-based nodule in the right lower lobe (series 4 image 3), likely a c alcified pulmonary granuloma. There is a nearby peripheral lateral right lower lobe 3.5 mm opacity (image 2). 4 mm pleurally-based opacity in the posterolateral right costophrenic gutter with calcification, like ly due to old pulmonary granulomatous disease (image 24). 7 mm calcified nodular density in the posterolateral left lung base, left lower lobe (image 26), like ly a calcified pulmonary granuloma. There is mild atelectasis at the right lung base. Scattered left and right hepatic cysts, measuring up to approximately 5.1 cm maximal dimension. No in terval suspicious hepatic space-occupying mass lesion compared to 12/19/2021 is noted. There is pneumobilia, likely due to Whipple procedure for reported ampulla of water carcinoma. The ga llbladder is surgically absent. The pancreatic head and neck have been resected. There is a stent catheter in the body of the pancrea s. Normal morphology of the adrenal glands. No renal mass lesion or urinary tract calculus or hydroureteronephrosis. There is atherosclerotic calcification but normal caliber of the abdominal aorta. No intraperitoneal or retroperitoneal or pelvic mass lesion or adenopathy or ascites is detected. The urinary bladder is relatively evacuated and not optimally evaluated. Normal appendix. There is a prominent amount of fecal material within the colon but no evidence of dave wel obstruction. Possible 3.5 cm soft tissue mass within the cecum; recommend colon workup if this has not been done r ecently.. There is a wide large left periumbilical hernia containing small bowel, with mild wall thickening. If there is concern for small bowel obstruction, consider small bowel series. Severe degenerative disc disease at L4-5. No suspicious osteolytic or osteoblastic lesions are noted. IMPRESSION: Status post pancreaticoduodenectomy (Whipple procedure) 4 ampulla of Vater carcinoma Status post cholecystectomy Wide left periumbilical hernia containing small bowel with some nonspecific small bowel wall thickeni ng; consider small bowel series Cannot exclude approximately 3 x 5 cm cecal soft tissue mass; recommend barium enema or colonoscopy i f this has not been done recently Multiple hepatic cysts Reviewed, dictated and finalized at Location A. Reviewed, dictated and finalized at location B. IMPRESSION: Status post pancreaticoduodenectomy (Whipple procedure) 4 ampulla of Vater carcinoma Status post cholecystectomy Wide left periumbilical hernia containing small bowel with some nonspecific sma ll bowel wall thickening; consider small bowel series Cannot exclude approximately 3 x 5 cm cecal soft tissue mass; recommend barium enema or colonoscopy if this has not been done recently Multiple hepatic cysts
[2022-03-19 07:57] LABS: Estimated Glomerular Filt Rate > 60
== END 2022-03-19 07:25 | disposition home or self-care (01) ==
PROVIDERS: PCP Family Medicine; Visit Provider Internal Medicine Hematology & Oncology
DX: C24.1 Malignant neoplasm of ampulla of Vater (principal); Z90.49 Acquired absence of other specified parts of digestive tract; K42.9 Umbilical hernia without obstruction or gangrene; K76.89 Other specified diseases of liver
CPT/HCPCS: 74177; Q9967

== ENCOUNTER 2022-04-09 02:02 | Day surgery (SDC) | payer MEDICARE, MEDICAID, SELFPAY ==
[2022-04-03 14:21] VITALS: BMI 27.5
[2022-04-09 09:54] VITALS: BP 137/80; PULSE 73; RESP 20; TEMP 36.1; O2SAT 100; BMI 27.5
--- NOTE | 2022-04-09 09:57 | WPDANESEPPF ---
Anes - Initial Pre Proc Eval Procedure: Operation Date: 04/09/22 10:30 Proposed Procedures p Colonoscopy - Lex Mesa MD Date/Time: 04/09/22 09:58 Surgeon: Lex Mesa MD Pre Op Diagnosis: Abnormal CAT scan Patient Data Age: 66 Gender: F Height: 1.57 m Weight: 68.3 kg Last Vital Signs Temp 36.1 C L 04/09/22 09:54 Pulse 73 04/09/22 09:54 Resp 20 04/09/22 09:54 BP 137/80 04/09/22 09:54 Pulse Ox 100 04/09/22 09:54 O2 Del Method Room Air 04/09/22 09:54 Allergies Allergy/AdvReac Type Severity Reaction Status Date / Time Macrolide Antibiotics Allergy Intermediate ITCHING Verified 04/09/22 09:53 amoxicillin Allergy Unknown Itching Verified 04/09/22 09:53 erythromycin base Allergy Unknown Itching Verified 04/09/22 09:53 naproxen Allergy Unknown Rash Verified 04/09/22 09:53 Penicillins Allergy Unknown Itching Verified 04/09/22 09:53 Sulfa (Sulfonamide Allergy Unknown Dizziness Verified 04/09/22 09:53 Antibiotics) iohexol Allergy Itching Verified 04/09/22 09:53 [From contrast - CT, X-RAY] Contrast Media Allergy Intermediate ITCHING Uncoded 04/09/22 09:53 Home Medications Medication Instructions Recorded Confirmed Type albuterol sulfate 90 mcg/actuation 1 inhalation inhalation Q4H PRN 07/29/19 04/03/22 History aerosol inhaler (ProAir HFA) Shortness Of Breath alprazolam 1 mg tablet 1 mg PO HS 07/29/19 04/03/22 History fluticasone propionate 50 1 spray intranasal DAILY PRN 07/29/19 04/03/22 History mcg/actuation nasal Congestion spray,suspension (Allergy Relief (fluticasone)) hydrochlorothiazide 25 mg tablet 37.5 mg PO DAILY 07/29/19 04/03/22 History quinapril 40 mg tablet 80 mg PO DAILY 07/29/19 04/03/22 History sertraline 50 mg tablet 50 mg PO HS 07/29/19 04/03/22 History simvastatin 20 mg tablet 20 mg PO HS 07/29/19 04/03/22 History budesonide-formoterol HFA 160 2 puff inhalation Q12H #10.2 grams 01/28/20 04/03/22 Rx mcg-4.5 mcg/actuation aerosol inhaler (Symbicort) potassium chloride 20 mEq 20 meq PO DAILY 10/17/21 04/03/22 History tablet,extended release amlodipine 5 mg tablet 5 mg PO DAILY 04/03/22 04/03/22 History Patient hx anesthesia problems: none Family hx anesthesia problems: none Results Review: All pre-operative results and documents have been reviewed as part of the pre-operative evaluation. [facility] Past Medical History Medical History Abdominal bloating Anxiety Arthritis Asthma Bronchitis Chronic back pain Coughing DDD (degenerative disc disease) Depression Diarrhea Dilated intrahepatic bile duct Essential hypertension Fibroids GERD (gastroesophageal reflux disease) Helicobacter pylori (H. pylori) Hiatal hernia High cholesterol Hyperlipidemia Hypertension Hypoxia Nausea On home O2 BETTY (obstructive sleep apnea) No longer uses CPAP Overweight (BMI 25.0-29.9) Ana-ampullary neoplasm Post-menopausal Pulmonary hypertension Seasonal allergies Sleep apnea Upper abdominal pain Wears glasses Surgical History Surgical History History of cardiac catheterization History of dilatation and curettage History of hysterectomy History of sinus surgery History of spinal surgery Cervical fusion History of thyroidectomy Goiter removed History of tubal ligation Family History Family History Father Family history of malignant neoplasm Mother Family history of kidney disease Other Arthritis Hypertension Leukemia Social History Social History (System 02/08/22 @ 14:26 by Kina Cotter) Social History: The patient lives at home with her who is a durable power estate attorney for healthcare. The patient is a full code. The patient has 2 children. 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 Patient is an ex-smoker
--- NOTE | 2022-04-09 10:33 | PM.IMHP ---
H&P: HPI History of Present Illness Date/Time: 04/09/22 10:33 Chief Complaint: Abnormal CT scan. Narrative: This is a 66-year-old female patient presents for colonoscopy. Patient has a history of carcinoma of the ampulla that was identified in spring. She underwent ERCP stent placement and subsequently Whipple's resection of the head of the pancreas in December of 2021. She currently is followed by Oncology. Surveillance CT scan was recently performed raising the question of a cecal colon lesion. Patient presents today for colonoscopy because of this finding. Patient's family history is noncontributory. Most recent colonoscopy 2013 Revealed benign hyperplastic colon polyps. Review of Systems Review of Systems: Review of systems noncontributory. [facility] Past Medical History Medical History Abdominal bloating Anxiety Arthritis Asthma Bronchitis Chronic back pain Coughing DDD (degenerative disc disease) Depression Diarrhea Dilated intrahepatic bile duct Essential hypertension Fibroids GERD (gastroesophageal reflux disease) Helicobacter pylori (H. pylori) Hiatal hernia High cholesterol Hyperlipidemia Hypertension Hypoxia Nausea On home O2 BETTY (obstructive sleep apnea) No longer uses CPAP Overweight (BMI 25.0-29.9) Ana-ampullary neoplasm Post-menopausal Pulmonary hypertension Seasonal allergies Sleep apnea Upper abdominal pain Wears glasses Surgical History Surgical History History of cardiac catheterization History of dilatation and curettage History of hysterectomy History of sinus surgery History of spinal surgery Cervical fusion History of thyroidectomy Goiter removed History of tubal ligation Family History Family History Father Family history of malignant neoplasm Mother Family history of kidney disease Other Arthritis Hypertension Leukemia Social History Social History (System 02/08/22 @ 14:26 by Kina Cotter) Social History: The patient lives at home with her who is a durable power corporate associate attorney for healthcare. The patient is a full code. The patient has 2 children. 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 Patient is an ex-smoker she quit in 2003. She does not use any alcohol marijuana or illicit drugs. Years smoked: 30 Smoking status: Former smoker Tobacco type: cigarettes Second hand tobacco smoke exposure: No Smoking end date: 05/21/03 Additional smoking assessment comments: STATES 1PK TO 1 1/2PK/WEEK/30YRS, QUIT 2003 Alcohol intake: never Substance use: never Substance use type: does not use Living arrangements: with family Gender identity (if verbalized by the patient): Female Spiritual care concerns: No Meds Home Medications and Allergies Home Medications Medication Instructions Recorded Confirmed Type albuterol sulfate 90 mcg/actuation 1 inhalation inhalation Q4H PRN 07/29/19 04/03/22 History aerosol inhaler (ProAir HFA) Shortness Of Breath alprazolam 1 mg tablet 1 mg PO HS 07/29/19 04/09/22 History fluticasone propionate 50 1 spray intranasal DAILY PRN 07/29/19 04/09/22 History mcg/actuation nasal Congestion spray,suspension (Allergy Relief (fluticasone)) hydrochlorothiazide 25 mg tablet 37.5 mg PO DAILY 07/29/19 04/09/22 History quinapril 40 mg tablet 80 mg PO DAILY 07/29/19 04/09/22 History sertraline 50 mg tablet 50 mg PO HS 07/29/19 04/09/22 History simvastatin 20 mg tablet 20 mg PO HS 07/29/19 04/09/22 History budesonide-formoterol HFA 160 2 puff inhalation Q12H #10.2 grams 01/28/20 04/09/22 Rx mcg-4.5 mcg/actuation aerosol inhaler (Symbicort) potassium chloride 20 mEq 20 meq PO DAILY 10/17/21 04/09/22 History tablet,extended release amlodipine 5 mg tablet 5 mg PO DAILY 04/03/22 04/09/22 H
[2022-04-09] MEDS: LACTATED RINGERS 1,000 ML 150 ML IV CONT (10:49)
[2022-04-09 11:12] VITALS: BP 109/64; PULSE 73; RESP 21; O2SAT 100
[2022-04-09 11:22] VITALS: BP 131/72; PULSE 67; RESP 23; O2SAT 100
[2022-04-09 11:32] VITALS: BP 135/77; PULSE 65; RESP 20; O2SAT 100
== END 2022-04-09 11:39 | disposition home or self-care (01) ==
PROVIDERS: PCP Family Medicine; Visit Provider Internal Medicine Gastroenterology
PROC: 0DJD8ZZ Inspection of Lower Intestinal Tract, Via Natural or Artificial Opening Endoscopic (ICD-10-PCS; CPT 45378; principal; 2022-04-09 10:30)
DX: Z12.11 Encounter for screening for malignant neoplasm of colon (principal); K64.8 Other hemorrhoids; F41.9 Anxiety disorder, unspecified; M19.90 Unspecified osteoarthritis, unspecified site; J45.909 Unspecified asthma, uncomplicated; I10 Essential (primary) hypertension; K21.9 Gastro-esophageal reflux disease without esophagitis; E78.00 Pure hypercholesterolemia, unspecified; G47.33 Obstructive sleep apnea (adult) (pediatric); I27.20 Pulmonary hypertension, unspecified; E78.5 Hyperlipidemia, unspecified; F32.A Depression, unspecified; K44.9 Diaphragmatic hernia without obstruction or gangrene; Z87.891 Personal history of nicotine dependence; Z79.51 Long term (current) use of inhaled steroids; Z90.410 Acquired total absence of pancreas
CPT/HCPCS: G0121; J2704; J7120

== ENCOUNTER 2022-07-17 08:57 | Outpatient (CLI) | payer MEDICARE, MEDICAID, SELFPAY ==
--- NOTE | ~2022-07-17 | CT_ITS ---
EXAMINATION: CT chest abdomen pelvis w con DATE: 07/17/2022 10:27 INDICATION: Pancreatic mass TECHNIQUE: Computed tomography (CT) of the chest, abdomen, and pelvis was performed with 100 CC Omnip aque 350 intravenous contrast. Automated exposure control and iterative reconstruction technique were employed. Exam dose: 595.87 mGy-cm total exam DLP. COMPARISON: 03/19/2022 CT abdomen pelvis 11/13/2021 CT chest abdomen pelvis FINDINGS: CHEST CT: Occasional very small peripheral pleural-based opacities are noted on the right, not changed since 03/19/2022. There is mild discoid atelectasis or scarring at the lung bases, primarily on the right. No pulmonary infiltrate or consolidation or suspicious pulmonary mass density is noted. Heart size is within normal range. No thoracic aortic aneurysm or dissection. No hilar or mediastinal mass lesion or lymphadenopathy. No pericardial or pleural effusion. ABDOMEN/PELVIS CT: There are multiple hepatic cysts of variable size, measuring up to 5.1 cm, stable since 03/19/2022. There were 2 indeterminate left hepatic lesions noted on November 13, 2021 CT abdomen pelvis examination. One situated anteriorly in the lateral left hepatic lobe is less circumscribed and well defined, latrice suring roughly 13 mm compared to 8 mm on 11/13/2021. The other left hepatic lesion measures approximate ly 5.5 mm dimension, appearing slightly smaller compared to November 13, 2021. These are indeterminate an d may represent metastatic lesions, with possible improvement considering that the larger lesion has assumed density closer to that of normal hepatic parenchyma and the other lesion appears to be slight ly smaller. Status post cholecystectomy. There is pneumobilia. Postoperative change from Whipple procedure is again noted. Stable approximately 4.2 mm cystic lesion at the tail of the pancreas, unchanged since 11/2021. Normal morphology of the adrenal glands. The kidneys are unremarkable. No urinary tract calculus or hydroureteronephrosis. The urinary bladder is unremarkable. Status post hysterectomy. Normal caliber of the abdominal aorta. No abdominal or pelvic lymphadenopathy or ascites is noted. Nonobstructed transverse colon and small bowel are noted within the wide ventral abdominal wall herni a. Status post lower anterior cervical spine surgical fusion. Degenerative changes of the thoracic and l umbar spine including severe degenerative disc disease at L4-5. No suspicious osteolytic or osteoblastic lesions are noted. IMPRESSION: Probable interval improvement of 2 suspected left hepatic possible metastases since 2021 Status post Whipple procedure Stable 4.2 mm pancreatic tail lesion since 11/13/2021 Wide ventral abdominal wall hernia containing transverse colon and small bowel without strangulation or obstruction Reviewed, dictated and finalized at [facility]. Reviewed, dictated and finalized at location B. WINDER TENDER IMPRESSION: Probable interval improvement of 2 suspected left hepatic possible metastases since 11/13/2021 Status post Whipple procedure Stable 4.2 mm pancreatic tail lesion since 11/13/2021 Wide ventral abdominal wall hernia containing transverse colon and small bowel without strangulation or obstruction
[2022-07-17 09:56] LABS: Estimated Glomerular Filt Rate > 60
== END 2022-07-17 08:58 | disposition home or self-care (01) ==
PROVIDERS: PCP Family Medicine; Visit Provider Internal Medicine Hematology & Oncology
DX: C24.1 Malignant neoplasm of ampulla of Vater (principal); K43.9 Ventral hernia without obstruction or gangrene; R93.5 Abnormal findings on diagnostic imaging of other abdominal regions, including retroperitoneum
CPT/HCPCS: 71260; 74177; Q9967

== ENCOUNTER 2022-08-29 12:35 | Outpatient (CLI) | payer MEDICARE, MEDICAID, SELFPAY ==
--- NOTE | ~2022-08-29 | MR_ITS ---
EXAMINATION: MR MRCP wo/w con/w 3D wo ind DATE: 08/29/2022 14:04 INDICATION: Primary cancer of ampulla of Vater. TECHNIQUE: Magnetic resonance imaging (MRI) of the abdomen was performed without and with 15 mL Multi Beena intravenous contrast. Sequences included coronal T2-weighted FS FSE, coronal T2-weighted FSE, a xial T1-weighted LAVA, coronal FS FIESTA, axial dual-echo T1-weighted SPGR, coronal lava-FLEX, sagitt al T2-weighted FSE, axial T2-weighted FSE, and axial DWI. Thick-slab T2-weighted FSE images were obta ined for magnetic resonance cholangiopancreatography (MRCP). Maximum intensity projection 3-D reconst ructions of the volumetric data were created by the technologist. Postcontrast sequences included cor onal LAVA-flex and time course of axial T1-weighted LAVA. COMPARISON: MRCP 11/30/2021, 05/19/21 FINDINGS: ABDOMEN MRI: There is diffuse hepatic steatosis. There are cysts in the liver measuring up to 5.4 cm. There are changes of Whipple procedure. There is a 6 mm cystic lesion in the tail of pancreas. The s pleen, adrenal glands, and right kidney are normal. There is a 3 mm cyst in left kidney. There is a v entral hernia containing nonobstructed small bowel. There are no pathologically enlarged lymph nodes. There is no free intraperitoneal fluid. ABDOMEN MRCP: There is no choledocholithiasis or abnormal biliary mass. IMPRESSION: 1. 6 mm cystic lesion in the tail of the pancreas, stable from 05/19/2021. The differential diagnosis includes pseudocyst, intraductal papillary mucinous neoplasm (IPMN), mucinous cystic neoplasm (MCN), serous cystadenoma, and neuroendocrine tumor. Abdomen MRI without and with contrast is recommended in 2 years. Reviewed, dictated and finalized at location A. LING SUPERVISOR IMPRESSION: 1. 6 mm cystic lesion in the tail of the pancreas, stable from 05/19/2021. The d ifferential diagnosis includes pseudocyst, intraductal papillary mucinous neopl asm (IPMN), mucinous cystic neoplasm (MCN), serous cystadenoma, and neuroendocr ine tumor. Abdomen MRI without and with contrast is recommended in 2 years.
[2022-09-04 21:16] LABS: CA 19-9 8 U/mL (<34)
== END 2022-08-29 12:36 | disposition home or self-care (01) ==
PROVIDERS: PCP Family Medicine
DX: C24.1 Malignant neoplasm of ampulla of Vater (principal); K86.89 Other specified diseases of pancreas; R97.8 Other abnormal tumor markers
CPT/HCPCS: 36415; 36592; 74183; 76376; 86301; A9577

== ENCOUNTER 2022-10-23 06:46 | Outpatient (CLI) | payer MEDICARE, MEDICAID, SELFPAY ==
--- NOTE | ~2022-10-23 | CT_ITS ---
CT of the Abdomen and Pelvis: Indication: Ampullary carcinoma Technique: 2.5 mm axial scans were obtained through the abdomen and pelvis following intravenous adm inistration of 100 cc of Omnipaque 350. Dose reduction technique was used on this scan by utilizing a utomated exposure control and iterative reconstruction technique. The dose-length product (DLP) was 6 15.29 mGy-cm. COMPARISON: 07/17/2022 Findings: Scans through the lung bases demonstrate stable ovoid left basilar pulmonary nodule (axial image 30).. Multiple hepatic cysts, cholecystectomy clips, and pneumobilia is similar to prior exam. Stable vague subtle hypodense area in the anterior left hepatic lobe (axial image 52 for example). There is a 5 m m cystic lesion in tail the pancreas (axial image 54), probably increased as compared to prior exam. The spleen, adrenals and kidneys are within normal limits. No evidence of aortic aneurysm. No lymph adenopathy. Large ventral hernia contains multiple small bowel loops. No bowel obstruction or bowel wall thickeni ng evident. Evidence of prior bowel surgery, stable from prior exam. Shotty retroperitoneal lymph nod es are stable from prior exam. Images through the pelvis were performed. Urinary bladder unremarkable. Patient is post hysterectomy. No adnexal mass seen. Impression: Subtle hypodense areas in the left hepatic lobe are similar to prior exam. Metastatic lesions are con sideration. Large widemouthed ventral hernia containing multiple small bowel loops. No bowel obstruction or bowel wall thickening. Evidence of prior bowel surgery/post procedure. 5 mm cystic lesion at the tail the pancreas, mildly increased as compared to prior exam. Stable small ovoid left basilar pulmonary nodule. Reviewed, dictated and finalized at location . Impression: Subtle hypodense areas in the left hepatic lobe are similar to prior exam. Andrew static lesions are consideration. Large widemouthed ventral hernia containing multiple small bowel loops. No wale l obstruction or bowel wall thickening. Evidence of prior bowel surgery/post pr ocedure. 5 mm cystic lesion at the tail the pancreas, mildly increased as compared to pr ior exam. Stable small ovoid left basilar pulmonary nodule.
[2022-10-23 07:27] LABS: Basophils Percent Auto 0.2 % (0.2-1.2); Hematocrit 35.8 % (37.0-47.0); Hemoglobin 11.9 g/dL (12.0-15.0); Immature Granulocyte Absolute 0.09 K/mm3 (0.00-0.031); Immature Granulocyte Percent A 0.7 % (0-0.5); Lymphocytes Absolute Auto 1.45 K/mm3 (0.9-3.2); Mean Corpuscular HGB Conc 33.2 g/dl (32-36); Mean Corpuscular Hemoglobin 27.5 pg (26-34); Mean Corpuscular Volume 82.7 fl (80-100); Mean Platelet Volume 9.4 fl (7.4-10.4); Monocytes Absolute Auto 0.2 K/mm3 (0.1-0.6); Monocytes Percent Auto 1.5 % (2.6-8.5); Neutrophils Absolute Auto 10.4 K/mm3 (1.3-6.7); Neutrophils Percent Auto 85.6 % (45.5-73.1); Platelet Count Result 262 k/mm3 (150-375); Red Blood Count 4.33 M/mm3 (4.2-5.4); Red Cell Distribution Width 13.6 % (11.5-14.5); White Blood Count 12.1 K/mm3 (4.5-10.0)
[2022-10-23 07:48] LABS: Alanine Aminotransferase 40 U/L (6-35); Alkaline Phosphatase 117 U/L (38-126); Anion Gap 7 mmol/L (8-16); Aspartate Amino Transferase 32 U/L (14-36); Bilirubin,Total 0.5 mg/dL (0.2-1.3); Blood Urea Nitrogen 13 mg/dL (7-17); Calcium 9.3 mg/dL (8.4-10.2); Carbon Dioxide 29 mmol/L (22-30); Chloride 100 mmol/L (98-107); Estimated Glomerular Filt Rate > 60; Glucose 260 mg/dL (65-110); Potassium 4.1 mmol/L (3.4-5.0); Sodium 136 mmol/L (137-145)
== END 2022-10-23 06:47 | disposition home or self-care (01) ==
PROVIDERS: PCP Family Medicine; Visit Provider Internal Medicine Hematology & Oncology
DX: C24.1 Malignant neoplasm of ampulla of Vater (principal); R91.8 Other nonspecific abnormal finding of lung field
CPT/HCPCS: 36415; 36592; 74177; 80053; 83735; 85025; Q9967

== ENCOUNTER 2022-11-09 09:45 | Outpatient (CLI) | payer MEDICARE, MEDICAID, SELFPAY ==
[2022-11-13 12:20] LABS: CA 19-9 13 U/mL (<34)
== END 2022-11-09 09:46 | disposition home or self-care (01) ==
PROVIDERS: PCP Family Medicine; Visit Provider Internal Medicine Hematology & Oncology
DX: C24.1 Malignant neoplasm of ampulla of Vater (principal)
CPT/HCPCS: 36415; 86301

== ENCOUNTER 2022-12-10 16:26 | Outpatient (CLI) | payer MEDICARE, MEDICAID, SELFPAY ==
--- NOTE | ~2022-12-10 | XR_ITS ---
Lumbosacral Spine: AP and lateral views Clinical History: Pain Findings: There is 25 degree levoscoliosis of the lumbar spine. There is moderate facet joint hypertr ophy throughout the lumbar spine. There is mild to moderate degenerative disc change, most notably at L3-L4 and L4-L5. The intervertebral disc spaces are preserved. The sacroiliac joints are normally o utlined. Impression: 25 degrees levoscoliosis with moderate degenerative change, as detailed above. Reviewed, dictated and finalized at location . Impression: 25 degrees levoscoliosis with moderate degenerative change, as detailed above.
== END 2022-12-10 16:27 | disposition home or self-care (01) ==
PROVIDERS: PCP Family Medicine; Visit Provider Family Medicine
DX: M54.50 Low back pain, unspecified (principal)
CPT/HCPCS: 72100

== ENCOUNTER 2022-12-15 12:29 | Outpatient (CLI) | payer MEDICARE, MEDICAID, SELFPAY ==
--- NOTE | ~2022-12-15 | MR_ITS ---
EXAMINATION: MR lumbar spine wo con DATE: 12/15/2022 13:11 INDICATION: Unspecified osteoarthritis, unspecified site. TECHNIQUE: Magnetic resonance imaging (MRI) of the lumbar spine was performed without intravenous con trast. Sequences included sagittal T2-weighted FSE, sagittal T2-weighted FS FSE, sagittal T1-weighted FSE, and axial T2-weighted FSE. COMPARISON: Lumbar spine MRI 04/05/2018 FINDINGS: There is 22 degrees levoscoliosis of thoracolumbar spine. There is 3 mm anterolisthesis of L3 on L4. Vertebral body heights are normal. There is mildly decreased disc height at L2-L3 and L3-L4 and severely decreased disc height at L4-L5. The distal spinal cord signal intensity is normal. The conus medullaris is at L1-L2. The following disc levels are specifically discussed: L1-L2: The disc does not extend beyond the endplate margin. There is severe right and moderate left f acet joint osteoarthritis. There is mild right neural foraminal stenosis. There is no central canal s tenosis. L2-L3: The disc is bulging and has an annular fissure. There is severe right and moderate left facet joint osteoarthritis. There is mild bilateral neural foraminal stenosis. There is mild central canal stenosis. L3-L4: The disc is bulging and has an annular fissure. There is severe bilateral facet joint osteoart hritis. There is mild bilateral neural foraminal stenosis. There is mild central canal stenosis. L4-L5: The disc is bulging and has an annular fissure. There is severe bilateral facet joint osteoart hritis. There is mild right and moderate left neural foraminal stenosis. There is mild central canal stenosis. L5-S1: The disc does not extend beyond the endplate margin. There is severe bilateral facet joint ost eoarthritis. There is mild bilateral neural foraminal stenosis. There is no central canal stenosis. IMPRESSION: 1. Severe lumbar spondylosis, stable from 04/05/2018. 2. Thoracolumbar levoscoliosis. Reviewed, dictated and finalized at location A.
== END 2022-12-15 12:30 | disposition home or self-care (01) ==
LOC: ANHIMG 12:31
PROVIDERS: PCP Family Medicine; Visit Provider Family Medicine
DX: M19.90 Unspecified osteoarthritis, unspecified site (principal); M47.896 Other spondylosis, lumbar region
CPT/HCPCS: 72148

== ENCOUNTER 2022-12-18 18:07 | Emergency (ER) | payer MEDICARE, MEDICAID, SELFPAY ==
--- NOTE | ~2022-12-18 | CT_ITS ---
EXAMINATION: CT abdomen pelvis wo con DATE: 12/18/2022 21:17 INDICATION: ventral hernia, pain TECHNIQUE: Computed tomography (CT) of the abdomen and pelvis was performed without intravenous contr ast. Automated exposure control and iterative reconstruction technique were employed. The dose-length product was 501.35 mGy-cm. COMPARISON: 10/23/2022, 07/17/2022. FINDINGS: Lower thorax: Stable left lower lobe pulmonary nodule. Liver: Enlarged. Multiple simple cysts. 1.5 cm left lobe lesion, isodense to normal liver but surroun ded by hypodense halo. Heterogeneous liver parenchyma. Stable pneumobilia. Biliary/Gallbladder: Gallbladder is absent. No bile duct dilation. Pancreas: Postoperative changes from a Whipple procedure. Mild atrophy. Stable pancreatic tail cyst. Spleen: Normal. Adrenals:No mass. Kidneys: No mass, stone, or hydronephrosis. GI tract: No small or large bowel dilation. Normal appendix. Mesentery/Peritoneum: No ascites, mass, or free air. Mild central mesenteric edema, a nonspecific fin ding, and unchanged. Unchanged prominent central mesenteric lymph nodes. Retroperitoneum: No mass. Atherosclerotic abdominal aortic and/or arterial calcifications. Pelvis: Surgically absent uterus. Partially distended urinary bladder with wall thickening. Soft Tissues: Large ventral abdominal wall hernia, partially enclosed by mesh. Large and small bowel loops are closely applied to the undersurface of the hernia mesh, without signs of obstruction. Bones: No acute osseous finding. IMPRESSION: 1. Hepatomegaly, with heterogeneous parenchymal density which may represent hepatic edema. Correlate with liver and biliary labs and consider hepatitis and cholangitis in the differential. 2. 1.5 cm left lobe lesion, concerning for metastasis. 3. Large ventral hernia containing large and small bowel, without evidence of obstruction. Reviewed, dictated and finalized at location K. IMPRESSION: 1. Hepatomegaly, with heterogeneous parenchymal density which may represent hep atic edema. Correlate with liver and biliary labs and consider hepatitis and ch olangitis in the differential. 2. 1.5 cm left lobe lesion, concerning for metastasis. 3. Large ventral hernia containing large and small bowel, without evidence of o bstruction.
[2022-12-18 18:25] VITALS: BP 139/78; PULSE 89; RESP 16; TEMP 36.8; O2SAT 100
--- NOTE | 2022-12-18 20:15 | ECG_ITS ---
Measurements Intervals [place] Rate: 77 P: 34 AK: 156 QRS: 3 QRSD: 79 T: 5 QT: 358 QTc: 406 Interpretive Statements SINUS RHYTHM BORDERLINE T WAVE ABNORMALITY- INFERIOR LEADS BORDERLINE ECG COMPARED TO ECG 10/23/2019 11:40:30 NO SIGNIFICANT CHANGES Electronically Signed On 12-18-2022 21:09:01 CDT by Simeon Mistry D.O.
[2022-12-18 20:31] LABS: Appearance Urine Clear (Clear); Bacteria Urine None Seen /hpf; Bilirubin Urine Negative (Negative); Blood Urine Negative (Negative); Color Urine Yellow (Yellow); Glucose Urine UA Negative (Negative); Ketones Urine Negative (Negative); Leukocyte Esterase Ur Trace LEU/UL (Negative); Nitrate Urine Negative (Negative); Non Pathogenic Casts 0-2; Protein Urine Negative (Negative); RBC Urine 0-2 /hpf (0-2); Specific Grav Ur 1.014 (1.001-1.035); Squamous Epithelial Cell Urine None seen /hpf (Few); WBC Urine 0-5 /hpf
[2022-12-18 20:39] LABS: Add Urine Microscopic? YES
[2022-12-18 21:01] LABS: Basophils Percent Auto 0.5 % (0.2-1.2); Eosinophils Absolute Auto 0.2 K/mm3 (0-0.3); Eosinophils Percent Auto 2.4 % (0-4.4); Hematocrit 35.8 % (37.0-47.0); Hemoglobin 11.8 g/dL (12.0-15.0); Immature Granulocyte Absolute 0.02 K/mm3 (0.00-0.031); Immature Granulocyte Percent A 0.3 % (0-0.5); Lymphocytes Absolute Auto 2.74 K/mm3 (0.9-3.2); Lymphocytes Percent Auto 36.7 % (18.3-44.2); Mean Corpuscular Hemoglobin 28.4 pg (26-34); Mean Corpuscular Volume 86.1 fl (80-100); Mean Platelet Volume 9.2 fl (7.4-10.4); Monocytes Absolute Auto 0.6 K/mm3 (0.1-0.6); Monocytes Percent Auto 8.2 % (2.6-8.5); Neutrophils Absolute Auto 3.9 K/mm3 (1.3-6.7); Neutrophils Percent Auto 51.9 % (45.5-73.1); Platelet Count Result 251 k/mm3 (150-375); Red Blood Count 4.16 M/mm3 (4.2-5.4); Red Cell Distribution Width 14.2 % (11.5-14.5); White Blood Count 7.5 K/mm3 (4.5-10.0)
--- NOTE | 2022-12-18 21:14 | ED.ABDPAIN ---
HPI - Abdominal Pain General Chief Complaint: Abdominal Pain Stated Complaint: Abdomen pain Time Seen by Provider: 12/18/22 20:07 Source: patient, RN notes reviewed and old records reviewed Mode of arrival: ambulatory Limitations: no limitations History of Present Illness HPI narrative: This is a 67 year old female with history of pancreatitic CA, s/p whipple procedure 1 year ago who presents for evaluation of right lower abdominal pain. Patient states she had whipple procedure done 12/2021 and she has noticed an enlarging ventral hernia along incision site. Her PCP diagnosed her hernia in July and she was evaluated by a surgeon at [facility]. She states she was scheduled for surgeon in September to repair her hernia but she decided to scheduled. She states she came to ER today because she noticed right lower abdominal pain today but it has resolved. She has been unable to get placed back on schedule to see her surgeon at [facility] regarding her hernia. She denies fever, chills, nausea, vomiting, constipation, dysuria or hematuria. Related Data Home Medications Medication Instructions Recorded Confirmed albuterol sulfate 90 mcg/actuation 1 inhalation inhalation Q4H PRN 07/29/19 04/03/22 aerosol inhaler (ProAir HFA) Shortness Of Breath alprazolam 1 mg tablet 1 mg PO HS 07/29/19 04/09/22 fluticasone propionate 50 1 spray intranasal DAILY PRN 07/29/19 04/09/22 mcg/actuation nasal Congestion spray,suspension (Allergy Relief (fluticasone)) hydrochlorothiazide 25 mg tablet 37.5 mg PO DAILY 07/29/19 04/09/22 quinapril 40 mg tablet 80 mg PO DAILY 07/29/19 04/09/22 sertraline 50 mg tablet 50 mg PO HS 07/29/19 04/09/22 simvastatin 20 mg tablet 20 mg PO HS 07/29/19 04/09/22 potassium chloride 20 mEq 20 meq PO DAILY 10/17/21 04/09/22 tablet,extended release amlodipine 5 mg tablet 5 mg PO DAILY 04/03/22 04/09/22 Allergies Allergy/AdvReac Type Severity Reaction Status Date / Time Macrolide Antibiotics Allergy Intermediate ITCHING Verified 04/09/22 09:53 amoxicillin Allergy Unknown Itching Verified 04/09/22 09:53 erythromycin base Allergy Unknown Itching Verified 04/09/22 09:53 naproxen Allergy Unknown Rash Verified 04/09/22 09:53 Penicillins Allergy Unknown Itching Verified 04/09/22 09:53 Sulfa (Sulfonamide Allergy Unknown Dizziness Verified 04/09/22 09:53 Antibiotics) iohexol Allergy Itching Verified 04/09/22 09:53 [From contrast - CT, X-RAY] Contrast Media Allergy Intermediate ITCHING Uncoded 04/09/22 09:53 Review of Systems Constitutional: Constitutional: Denies weakness Cardiovascular: Cardiovascular: Denies syncope, Denies rapid heart rate, Denies irregular heart rhythm, Denies leg edema and Denies dyspnea Respiratory: Respiratory: Denies chest congestion, Denies hemoptysis, Denies excessive phlegm production and Denies dyspnea Gastrointestinal: Gastrointestinal: Reports abdominal pain, Denies hematochezia, Denies diarrhea and Denies vomiting Genitourinary: Genitourinary: Denies hematuria and Denies dysuria Musculoskeletal: Musculoskeletal: Reports back pain (chronic), Denies joint swelling, Denies loss of height and Denies muscle weakness Neurologic: Denies syncope, Denies focal weakness and Denies weakness [facility] Past Medical History Medical History Abdominal bloating Anxiety Arthritis Asthma Bronchitis Chronic back pain Coughing DDD (degenerative disc disease) Depression Diarrhea Dilated intrahepatic bile duct Essential hypertension Fibroids GERD (gastroesophageal reflux disease) Helicobacter pylori (H. pylori) Hiatal hernia High cholesterol Hyperlipidemia Hypertension Hypoxia Nausea On home O2 BETTY (obstructive sleep apnea) No longer uses CPAP Overweight (BMI 25.0-29.9) Ana-ampullary neoplasm Post-menopausal Pulmonary hypertension Seasonal allergies Sleep apnea Upper abdominal pain Wears glasses Surgical History Surgic
[2022-12-18 21:25] LABS: Alanine Aminotransferase 63 U/L (6-35); Albumin Level 4.8 g/dL (3.5-5.1); Alkaline Phosphatase 122 U/L (38-126); Anion Gap 10 mmol/L (8-16); Aspartate Amino Transferase 59 U/L (14-36); Bilirubin,Total 0.4 mg/dL (0.2-1.3); Blood Urea Nitrogen 17 mg/dL (7-17); Calcium 9.5 mg/dL (8.4-10.2); Carbon Dioxide 27 mmol/L (22-30); Chloride 101 mmol/L (98-107); Estimated CRCL calculation 59 ml/min; Estimated Glomerular Filt Rate > 60; Glucose 115 mg/dL (65-110); Lipase 108 U/L (23-300); Potassium 3.7 mmol/L (3.4-5.0); Sodium 138 mmol/L (137-145)
[2022-12-19 09:29] LABS: Alanine Aminotransferase 60 U/L (6-35); Anion Gap 10 mmol/L (8-16); Aspartate Amino Transferase 49 U/L (14-36); Bilirubin,Total 0.4 mg/dL (0.2-1.3); Blood Urea Nitrogen 17 mg/dL (7-17); Calcium 9.6 mg/dL (8.4-10.2); Carbon Dioxide 26 mmol/L (22-30); Chloride 102 mmol/L (98-107); Estimated CRCL calculation 67 ml/min; Estimated Glomerular Filt Rate > 60; Glucose 120 mg/dL (65-110); Potassium 3.7 mmol/L (3.4-5.0); Sodium 138 mmol/L (137-145)
[2022-12-19 09:30] LABS: Albumin Level 4.6 g/dL (3.5-5.1); Alkaline Phosphatase 105 U/L (38-126); Lipase 86 U/L (23-300); Total Protein 7.5 g/dL (6.3-8.2)
== END 2022-12-19 06:23 | disposition home or self-care (01) ==
PROVIDERS: Family Medicine; Emergency Provider General Practice; PCP Family Medicine
DX: K76.9 Liver disease, unspecified (principal); K43.9 Ventral hernia without obstruction or gangrene; J45.909 Unspecified asthma, uncomplicated; I10 Essential (primary) hypertension; E78.00 Pure hypercholesterolemia, unspecified; I27.20 Pulmonary hypertension, unspecified; G47.33 Obstructive sleep apnea (adult) (pediatric); K21.9 Gastro-esophageal reflux disease without esophagitis; F41.9 Anxiety disorder, unspecified; F32.A Depression, unspecified; Z85.07 Personal history of malignant neoplasm of pancreas; Z99.81 Dependence on supplemental oxygen; Z90.710 Acquired absence of both cervix and uterus; Z98.1 Arthrodesis status; Z87.891 Personal history of nicotine dependence; R16.0 Hepatomegaly, not elsewhere classified
CPT/HCPCS: 36415; 74176; 80053; 81001; 83690; 85025; 93005; 99284; J1642

== ENCOUNTER 2023-02-08 08:32 | Outpatient (CLI) | payer MEDICARE, MEDICAID, SELFPAY ==
--- NOTE | ~2023-02-08 | CT_ITS ---
Clinical Indication: Cancer of ampulla of Vater CT Scan of the Chest, Abdomen, and Pelvis with Contrast: Technique: Contiguous sections were acquired throughout the chest, abdomen, and pelvis after intraven ous administration of 100 cc of Omnipaque 350. Dose reduction technique was used on this scan by uti lizing automated exposure control and iterative reconstruction technique. The dose-length product (DL P) was 908.09 mGy-cm. COMPARISON: 12/18/2022 and 07/17/2022 Findings: There is no evidence of any significant mediastinal, hilar or axillary lymphadenopathy. The mediastin al soft tissues and vascular structures appear normal. There is no evidence of pleural or pericardial effusion. Stable 4 mm left basilar pulmonary nodule (axial image 81). Stable small pleural-based nodule the rig ht lower lobe (axial image 54).. 2 dominant hypodense right hepatic lobe masses are similar to prior exam. There are several additiona l much smaller, subcentimeter hepatic masses, probably also similar to prior exam. There is mild back ground heterogeneity of the hepatic parenchyma otherwise. No intrahepatic biliary dilatation. There i s pneumobilia. Cholecystectomy clips are present. The spleen, adrenals and kidneys are within normal limits. Stable subcentimeter cystic lesion at the tail the pancreas. No evidence of aortic aneurysm. Stable [place] ventral hernia containing multiple small bowel loops. No bowel obstruction or bowel wall thickening evident. Urinary bladder is unremarkable. No pelvic mass evident. No ascites. Impression: Stable dominant cystic-appearing hepatic lesions artifact lobe. This could reflect benign cysts versu s possibly treated or necrotic neoplastic lesions. Additional much smaller hypodense hepatic lesions are similar to prior exam, and could reflect metast atic disease, or possibly cystic change. Background heterogeneous hepatic parenchyma is similar to prior exams. There is stable ventral hernia containing multiple small bowel loops. Stable subcentimeter pulmonary nodules, as above. Reviewed, dictated and finalized at location M. Impression: Stable dominant cystic-appearing hepatic lesions artifact lobe. This could refl ect benign cysts versus possibly treated or necrotic neoplastic lesions. Additional much smaller hypodense hepatic lesions are similar to prior exam, an d could reflect metastatic disease, or possibly cystic change. Background heterogeneous hepatic parenchyma is similar to prior exams. There is stable ventral hernia containing multiple small bowel loops. Stable subcentimeter pulmonary nodules, as above.
[2023-02-08 09:30] LABS: Basophils Percent Auto 0.3 % (0.2-1.2); Hematocrit 36.7 % (37.0-47.0); Hemoglobin 12.1 g/dL (12.0-15.0); Immature Granulocyte Absolute 0.11 K/mm3 (0.00-0.031); Immature Granulocyte Percent A 1.3 % (0-0.5); Lymphocytes Absolute Auto 1.58 K/mm3 (0.9-3.2); Mean Platelet Volume 8.9 fl (7.4-10.4); Monocytes Absolute Auto 0.1 K/mm3 (0.1-0.6); Monocytes Percent Auto 1.6 % (2.6-8.5); Neutrophils Absolute Auto 6.9 K/mm3 (1.3-6.7); Neutrophils Percent Auto 78.8 % (45.5-73.1); Platelet Count Result 254 k/mm3 (150-375); Red Blood Count 4.32 M/mm3 (4.2-5.4); Red Cell Distribution Width 13.7 % (11.5-14.5); White Blood Count 8.8 K/mm3 (4.5-10.0)
[2023-02-08 09:41] LABS: Alanine Aminotransferase 40 U/L (6-35); Alkaline Phosphatase 100 U/L (38-126); Anion Gap 13 mmol/L (8-16); Aspartate Amino Transferase 33 U/L (14-36); Bilirubin,Total 0.4 mg/dL (0.2-1.3); Blood Urea Nitrogen 20 mg/dL (7-17); Calcium 9.7 mg/dL (8.4-10.2); Carbon Dioxide 27 mmol/L (22-30); Chloride 96 mmol/L (98-107); Estimated Glomerular Filt Rate > 60; Glucose 326 mg/dL (65-110); Sodium 136 mmol/L (137-145)
[2023-02-08 09:53] LABS: Estimated Glomerular Filt Rate > 60
[2023-02-13 13:55] LABS: CA 19-9 15 U/mL (<34)
== END 2023-02-08 08:33 | disposition home or self-care (01) ==
PROVIDERS: PCP Family Medicine; Referring Provider Internal Medicine Hematology & Oncology
DX: C24.1 Malignant neoplasm of ampulla of Vater (principal)
CPT/HCPCS: 36415; 36592; 71260; 74177; 80053; 85025; 86301; Q9967

== ENCOUNTER 2023-03-03 09:17 | Emergency (ER) | payer MEDICARE, MEDICAID, SELFPAY ==
[2023-03-03 09:22] VITALS: BP 121/85; PULSE 75; RESP 16; TEMP 36.9; O2SAT 100
--- NOTE | 2023-03-03 11:24 | ED.GENADULT ---
HPI - General Adult General Chief complaint: Dental/Oral Stated complaint: tongue feels funny Time Seen by Provider: 03/03/23 09:27 History of Present Illness HPI narrative: 67-year-old female presented the emergency department for evaluation of dry mouth and sensation of tongue swelling. Patient was in [facility] on Saturday when she had onset of left-sided tongue swelling. Patient did provide a photograph which showed significant tongue swelling. Patient states that she was treated with steroids Benadryl and Pepcid and had significant improvement. Patient has since been on a steroid taper. Patient states that she does have dry mouth and felt like she was having a sensation of tongue swelling but states she does not have any actual tongue swelling. Patient denies any difficulty breathing or swallowing. Patient also states that she has been having the sensation of dry mouth intermittently over the course of the last 3 months. Patient states she did have her blood pressure medications changed and was started on losartan. Patient also states that she does take intermittent Benadryl for itching. Related Data Home Medications Medication Instructions Recorded Confirmed albuterol sulfate 90 mcg/actuation 1 inhalation inhalation Q4H PRN 07/29/19 04/03/22 aerosol inhaler (ProAir HFA) Shortness Of Breath alprazolam 1 mg tablet 1 mg PO HS 07/29/19 04/09/22 fluticasone propionate 50 1 spray intranasal DAILY PRN 07/29/19 04/09/22 mcg/actuation nasal Congestion spray,suspension (Allergy Relief (fluticasone)) hydrochlorothiazide 25 mg tablet 37.5 mg PO DAILY 07/29/19 04/09/22 quinapril 40 mg tablet 80 mg PO DAILY 07/29/19 04/09/22 sertraline 50 mg tablet 50 mg PO HS 07/29/19 04/09/22 simvastatin 20 mg tablet 20 mg PO HS 07/29/19 04/09/22 potassium chloride 20 mEq 20 meq PO DAILY 10/17/21 04/09/22 tablet,extended release amlodipine 5 mg tablet 5 mg PO DAILY 04/03/22 04/09/22 Allergies Allergy/AdvReac Type Severity Reaction Status Date / Time Macrolide Antibiotics Allergy Intermediate ITCHING Verified 04/09/22 09:53 amoxicillin Allergy Unknown Itching Verified 04/09/22 09:53 erythromycin base Allergy Unknown Itching Verified 04/09/22 09:53 naproxen Allergy Unknown Rash Verified 04/09/22 09:53 Penicillins Allergy Unknown Itching Verified 04/09/22 09:53 Sulfa (Sulfonamide Allergy Unknown Dizziness Verified 04/09/22 09:53 Antibiotics) iohexol Allergy Itching Verified 04/09/22 09:53 [From contrast - CT, X-RAY] Contrast Media Allergy Intermediate ITCHING Uncoded 04/09/22 09:53 Review of Systems Review of Systems: All systems reviewed & are unremarkable except as noted in HPI and below PMFSH Past Medical History Medical History Abdominal bloating Anxiety Arthritis Asthma Bronchitis Chronic back pain Coughing DDD (degenerative disc disease) Depression Diarrhea Dilated intrahepatic bile duct Essential hypertension Fibroids GERD (gastroesophageal reflux disease) Helicobacter pylori (H. pylori) Hiatal hernia High cholesterol Hyperlipidemia Hypertension Hypoxia Nausea On home O2 BETTY (obstructive sleep apnea) No longer uses CPAP Overweight (BMI 25.0-29.9) Ana-ampullary neoplasm Post-menopausal Pulmonary hypertension Seasonal allergies Sleep apnea Upper abdominal pain Wears glasses Surgical History Surgical History History of cardiac catheterization History of dilatation and curettage History of hysterectomy History of sinus surgery History of spinal surgery Cervical fusion History of thyroidectomy Goiter removed History of tubal ligation Family History Family History Father Family history of malignant neoplasm Mother Family history of kidney disease Other Arthritis Hypertension Leukemia Social History Social Hist
[2023-03-03 11:28] VITALS: PULSE 74; RESP 18; O2SAT 100
== END 2023-03-03 11:29 | disposition home or self-care (01) ==
PROVIDERS: Emergency Provider Emergency Medicine; PCP Family Medicine
DX: R68.2 Dry mouth, unspecified (principal); J45.909 Unspecified asthma, uncomplicated; I10 Essential (primary) hypertension; I27.20 Pulmonary hypertension, unspecified; E78.00 Pure hypercholesterolemia, unspecified; E89.0 Postprocedural hypothyroidism; E66.3 Overweight; Z68.30 Body mass index [BMI] 30.0-30.9, adult; G47.33 Obstructive sleep apnea (adult) (pediatric); K21.9 Gastro-esophageal reflux disease without esophagitis; M19.90 Unspecified osteoarthritis, unspecified site; F32.A Depression, unspecified; F41.9 Anxiety disorder, unspecified; Z99.81 Dependence on supplemental oxygen; Z87.891 Personal history of nicotine dependence; Z98.1 Arthrodesis status; Z90.710 Acquired absence of both cervix and uterus
CPT/HCPCS: 99281

== ENCOUNTER 2023-03-22 11:00 | Outpatient (RCR) | payer MEDICARE, MEDICAID, SELFPAY ==
--- NOTE | 2023-02-21 11:15 | OPREHPOC ---
Outpatient Therapy Plan of Care This is a Multidisciplinary Plan of Care that may contain components documented by all disciplines (PT, OT, and ST.) PT Problem 1 PT Problem #1 Knowledge Deficit PT Goal 1 Goal Pt to be IND with issued HEP Target Visit 8 PT Problem 2 PT Problem #2 Pain PT Goal 1 Goal Pt to report back pain no greater than 4/10 in the last week. Target Visit 8 PT Goal 2 Goal Pt to report 50% improvement in overall symptoms. PT Problem 3 PT Problem #3 Impaired Gait PT Goal 1 Goal Pt to improve 2min walk distance from 250ft to 320ft without deviations Target Visit 8 PT Goal 2 Goal Pt to be able to ambulate/stand for 30 mins without an increase in pain Target Visit 8 PT Problem 4 PT Problem #4 Impaired Strength PT Goal 1 Goal Pt to improve hip abduction strength to 3+/5 Target Visit 8 PT Goal 2 Goal Pt to demonstrate 5xSTS in less than 15s Target Visit 8
--- NOTE | 2023-02-21 11:15 | PTOPEVAL1 ---
Assessment and note entered by Cem Gordon, PT, DPT Evaluation Information Assessment Status Evaluation Diagnosis lumbar stenosis Onset years Subjective Information Pt states she has completed multiple rounds of therapy for her back in the past. She states she is unable to walk through the grocery store d/t back pain. She reports pain throughout her back and into her L leg, down to her knee. She received an injection and got some relief in her knee but not her back. She states she is limited to 10-15 mins of standing at a time. She reports no pain currently but this is determined by the surface she is sitting on. Pt states she assist with cooking and light household tasks, her does the rests. Reported Pain Level Pain Score 0: Self Report Assessment PT Clinical Summary Krissy presents to therapy today for her initial evaluation with a diagnosis of lumbar stenosis. Today she demonstrates decreased lumbar motion in all directions that is limited by pain, hip weakness, and postural abnormalities. Her gait speed and stair navigations is also affects by her weakness, pain, and mobility. Skilled therapy services are indicated to address the deficits noted above, to manage pain, to improve functional mobility, and to return to [facility]. Plan of Care Interventions Electrical Stimulation,Gait Training,Hot Pack/Cold Pack,Manual Therapy,Neuro Re-education,Patient/ Caregiver Educati,Therapeutic Activities, Therapeutic Exercise PT Services Indicated Yes Treatment Frequency and 2x/wk for 4 wks Duration These treatments will address the objective and functional deficits as defined above. The patient will be advanced safely and appropriately in order for the patient to progress towards his/her prior level of function. Additional exercises will be introduced and as well as a comprehensive home exercise program upon discharge, if needed, ?to ensure carryover of functional gains achieved in the clinic. This treatment plan has been reviewed and agreement upon by the patient.
--- NOTE | 2023-03-01 12:50 | PCPTNOTE ---
Patient called & cancelled scheduled appointment this date due to being out of town.
--- NOTE | 2023-03-13 10:15 | PCPTNOTE ---
Patient called to to cancel appointment this date due to illness.
--- NOTE | 2023-03-22 11:40 | PTOPDC ---
Assessment and note entered by Cem Gordon, PT, DPT Evaluation Information Assessment Status Discharge Diagnosis lumbar stenosis Onset years Subjective Information Pt states overall she is doing pretty good. She states occasionally she will get a little twitch of pain a few times a week. Reported Pain Level Pain Score 0: Self Report Pain Score 0: Self Report Assessment PT Clinical Summary Krissy presents to therapy today for her progress report following 6 visits of skilled therapy to treat her diagnosis of lumbar stenosis. Today she demonstrates improve lumbar ROM in all directions that is no longer limited by pain. She demonstrates improved body awareness, hip strength, and standing tolerance. She has met or progressed well towards her therapy goals and no longer requires skilled services. She will be discharged at this time. Plan of Care PT Services Indicated No
== END 2023-03-22 13:35 | disposition home or self-care (01) ==
LOC: ANHGOSHPT 11:00
PROVIDERS: PCP Family Medicine; Visit Provider Anesthesiology Pain Medicine
DX: M48.061 Spinal stenosis, lumbar region without neurogenic claudication (principal)
CPT/HCPCS: 97110; 97112; 97140; 97161; 97530

== ENCOUNTER 2023-05-10 08:28 | Outpatient (CLI) | payer MEDICARE, MEDICAID, SELFPAY ==
--- NOTE | ~2023-05-10 | CT_ITS ---
EXAMINATION: CT chest abdomen pelvis w con DATE: 05/10/2023 09:55 CDT INDICATION: Ampullary carcinoma. TECHNIQUE: Computed tomography (CT) of the chest, abdomen, and pelvis was performed with 100 cc Omnip aque 350 intravenous contrast. The dose-length product was 574.44 mGy-cm. Automated exposure control and iterative reconstruction technique were employed. COMPARISON: Comparison to multiple prior studies sequentially, with oldest reviewed study dated 10/23. FINDINGS: CHEST CT: Heart size normal. No significant pleural or pericardial effusion. No thoracic lymphadenopathy. There is atherosclerosis of the aorta. Heart size normal. There is a groundglass nodule in the right upper lobe adjacent to the fissure measuring 1.3 x 0.8 cm, new compared with prior examination. There is a new 9 x 6 mm irregular shaped nodule right upper lobe anteriorly, image 53. Central venous catheter tip in the condyle aspect of the SVC. There is lingular and bibasilar dependent atelectasis. There is a left lower lobe nodule measuring 10 x 7 mm compared with 8 x 5 mm on prior examination, image 74. ABDOMEN/PELVIS CT: There is an enlarging irregular shaped hypovascular mass left hepatic lobe, image 96, now measuring 2 .5 cm greatest axial dimension compared with 1.5 cm on 10/23/2022. There are enlarging predominantly c ystic masses in the liver. For example largest mass in the right hepatic lobe measures 5.8 x 4.6 cm g reatest axial dimension compared with 5.5 x 4 cm on prior examination. There are small low-density le sions in the spleen, unchanged from prior examination allowing for differences of technique. There is a ventral abdominal wall hernia containing nonobstructed bowel. There is pneumobilia status post cho lecystectomy, likely secondary to sphincterotomy. The pancreatic duct is mildly prominent. There is a duodenal diverticulum. The adrenal glands and kidneys are unremarkable. Nonobstructive bowel gas pat tern. Colonic diverticulosis without evidence for diverticulitis. No significant vascular abnormality . No lymphadenopathy. IMPRESSION: 1. New and enlarging bilateral pulmonary nodules and left hepatic lobe mass, concerning for metastati c disease. Consider correlation with pet/CT scan. Enlarging cystic masses of the liver may reflect be nign changes, although necrotic metastases are not excluded. Reviewed, dictated and finalized at location B. IMPRESSION: 1. New and enlarging bilateral pulmonary nodules and left hepatic lobe mass, co ncerning for metastatic disease. Consider correlation with pet/CT scan. Enlargi ng cystic masses of the liver may reflect benign changes, although necrotic met astases are not excluded.
[2023-05-10 09:38] LABS: Estimated Glomerular Filt Rate > 60
[2023-05-10 09:58] LABS: Basophils Percent Auto 0.3 % (0.2-1.2); Hematocrit 37.3 % (37.0-47.0); Hemoglobin 12.1 g/dL (12.0-15.0); Immature Granulocyte Absolute 0.25 K/mm3 (0.00-0.031); Immature Granulocyte Percent A 2.3 % (0-0.5); Lymphocytes Absolute Auto 1.61 K/mm3 (0.9-3.2); Lymphocytes Percent Auto 14.7 % (18.3-44.2); Mean Corpuscular HGB Conc 32.4 g/dl (32-36); Mean Corpuscular Hemoglobin 27.8 pg (26-34); Mean Corpuscular Volume 85.7 fl (80-100); Mean Platelet Volume 9.1 fl (7.4-10.4); Monocytes Absolute Auto 0.2 K/mm3 (0.1-0.6); Monocytes Percent Auto 1.4 % (2.6-8.5); Neutrophils Absolute Auto 8.9 K/mm3 (1.3-6.7); Neutrophils Percent Auto 81.3 % (45.5-73.1); Platelet Count Result 333 k/mm3 (150-375); Red Blood Count 4.35 M/mm3 (4.2-5.4); Red Cell Distribution Width 12.7 % (11.5-14.5); White Blood Count 10.9 K/mm3 (4.5-10.0)
[2023-05-10 10:07] LABS: Alkaline Phosphatase 64 U/L (38-126); Anion Gap 15 mmol/L (8-16); Aspartate Amino Transferase 26 U/L (14-36); Bilirubin,Total 0.5 mg/dL (0.2-1.3); Blood Urea Nitrogen 19 mg/dL (7-17); Calcium 9.8 mg/dL (8.4-10.2); Carbon Dioxide 24 mmol/L (22-30); Chloride 97 mmol/L (98-107); Estimated Glomerular Filt Rate > 60; Glucose 215 mg/dL (65-110); Potassium 3.7 mmol/L (3.4-5.0); Sodium 136 mmol/L (137-145)
[2023-05-10 10:13] LABS: Alanine Aminotransferase 33 U/L (6-35)
[2023-05-14 21:29] LABS: CA 19-9 16 U/mL (<34)
== END 2023-05-10 08:29 | disposition home or self-care (01) ==
PROVIDERS: PCP Family Medicine; Referring Provider Internal Medicine; Visit Provider Internal Medicine Hematology & Oncology
DX: C24.1 Malignant neoplasm of ampulla of Vater (principal)
CPT/HCPCS: 36592; 71260; 74177; 80053; 85025; 86301; 99212; G0463; Q9967

== ENCOUNTER 2023-05-28 11:53 | Outpatient (CLI) | payer MEDICARE, MEDICAID, SELFPAY ==
--- NOTE | ~2023-05-28 | PE_ITS ---
EXAMINATION: PET skull to mid thigh DATE: 05/28/2023 14:00 INDICATION: Ampullary carcinoma TECHNIQUE: Blood glucose level was 114 mg/dL. 10.609 mCi of 18-fluorodeoxyglucose (18-FDG) was admini stered i.v. Low dose computed tomography (CT) images were acquired from the base of the brain to the proximal thighs for attenuation correction and anatomic localization. Positron emission tomography (P ET) images were acquired in the same distribution beginning 64 minutes after injection. Images includ ing fused PET/CT images were reconstructed in axial, coronal, and sagittal planes. Automated exposure control technique was employed. The dose-length product was 709.17mGy-cm. COMPARISON: CT dated 05/10/2023 FINDINGS: Head/neck: There is symmetric increased activity in the oral cavity, laryngeal muscles and ocular muscles withou t CT correlate, likely physiologic. No pathologically enlarged cervical lymphadenopathy or suspicious foci of increased FDG uptake in the visualized head or neck. Chest: Right internal jugular central venous port catheter with distal tip at the caudal superior vena cava. The opacities of concern in the right upper lobe parotid sagittal and coronal reconstructions to cor respond to linear bands of discoid atelectasis without associated FDG uptake. There is additional mil d basilar atelectasis in the bilateral lower lobes and linear discoid atelectasis at the lingula. No evident FDG uptake associated with a few <4 mm pleural-based nodules at the periphery of the right mi ddle and lower lobes. No other suspicious pulmonary nodules or FDG avid pulmonary lesions. No pneumon ia, pulmonary edema or pleural effusion. Heart size is normal. No pericardial effusion. Thoracic aort a is normal in caliber. There are 6 FDG avid normal-sized left axillary lymph nodes with FDG value is ranging between 2.3 and 5.8. No other larger or FDG avid thoracic lymphadenopathy. Abdomen/pelvis/proximal thighs: Photopenic defects associated with a couple large cyst in the right hepatic lobe. Larger measuring 6 cm in maximal diameter. Increased FDG uptake with maximal SUV of 17.6 associated with the previous no germán 2.5 cm hypoenhancing nodule in the left hepatic lobe which is more subtle on the current noncontr ast CT images. Cholecystectomy clips the gallbladder fossa. Small amount of pneumobilia likely relate d to prior Whipple procedure with resection of the head of the pancreas. Again seen is a small duoden al diverticulum near the pancreaticoduodenal anastomosis. Pancreas is otherwise unremarkable. Physiol ogic renal accumulation and excretion of FDG activity in the kidneys, bladder and along portions of u reters. The spleen and bilateral adrenal glands are normal. Mild to moderate uptake scattered through out the bowels without radiologic correlate, also likely physiologic. Multiple loops of nonobstructed bowel including both colon and small bowel extend into a large wide mouthed ventral hernia. Linear d ensities at the periphery of the orifice of the hernia suggests prior attempted repair. Normal append ix. The uterus is not identified and has likely been surgically resected. No free intraperitoneal gas or fluid. No other abnormal foci of increased FDG uptake or pathologically enlarged lymphadenopathy in the abdomen, pelvis or proximal thighs. Musculoskeletal: C4-C6 instrumented anterior spinal fusion with anterior plate and screw fixation. Mild thoracolumbar levoscoliosis with moderate to severe lower lumbar spondylosis. No suspicious lytic, blastic or FDG a vid bone lesions. IMPRESSION: 1. Prominent FDG uptake associated with a 2.5 cm hypoenhancing lesion in segment 2 of the left hepati c lobe consistent with metastatic disease. 2. Mild FDG uptake associated with multiple still normal-sized left axillary lymph nodes. Although me tastatic disease cannot be absolutely excluded, the pattern of isolated left axillary lymphadenopathy w
[2023-05-28 12:19] LABS: Glucose Point of Care 114 mg/dl (65-105)
== END 2023-05-28 11:54 | disposition home or self-care (01) ==
PROVIDERS: PCP Family Medicine; Visit Provider Internal Medicine Hematology & Oncology
DX: C24.1 Malignant neoplasm of ampulla of Vater (principal)
CPT/HCPCS: 78815; A9552

== ENCOUNTER 2023-07-23 12:09 | Outpatient (CLI) | payer MEDICARE, MEDICAID, SELFPAY ==
--- NOTE | ~2023-07-23 | MR_ITS ---
EXAMINATION: MR abdomen wo/w con INDICATION: Liver metastases, history of ampullary carcinoma TECHNIQUE: Coronal SSFSE ARC, WATER:coronal LAVA-FLEX, Coronal 2D FIESTA FatSat, Axial SSFSE BH ARC, Axial 3D DualEcho BH, Axial SSFSE-IR, Axial DWI b=500, Axial 2D FIESTA FatSat, pre and dynamic postco ntrast Axial LAVA ARC, postcontrast Coronal In and Opposed phase LAVA FLEX COMPARISON: 08/29/2022; CT, 05/10/2023 CONTRAST: Multihance, 14 cc FINDINGS: There is a T1 hypointense mass with mixed T2 signal intensity in liver segment 2 which finn ures approximately 4.7 x 3.0 cm. The mass demonstrates restricted diffusion and gradual reticular int ernal enhancement after contrast administration. No additional suspicious liver mass is identified. C ysts of the liver measure up to 6.1 cm in the right hepatic lobe. There are changes of Whipple proced ure. There is a stable 6 mm cystic lesion in the tail of the pancreas with differential and follow-up recommendations previously described. The spleen, adrenal glands, and kidneys are normal. No patholo gically enlarged abdominal lymph nodes are identified. There are no dilated loops of bowel. IMPRESSION: 1. Enlarging mass in liver segment II, consistent with metastatic disease. Reviewed, dictated and finalized at location L. 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
== END 2023-07-23 12:10 | disposition home or self-care (01) ==
LOC: ANHIMG 12:22
PROVIDERS: PCP Family Medicine; Visit Provider Radiology Radiation Oncology
DX: C78.7 Secondary malignant neoplasm of liver and intrahepatic bile duct (principal)
CPT/HCPCS: 74183; A9577

== ENCOUNTER 2023-08-19 08:56 | Outpatient (CLI) | payer MEDICARE, MEDICAID, SELFPAY ==
--- NOTE | ~2023-08-19 | CT_ITS ---
Clinical Indication: Primary cancer ampulla of Vater CT Scan of the Chest, Abdomen, and Pelvis with Contrast: Technique: Contiguous sections were acquired throughout the chest, abdomen, and pelvis after intraven ous administration of 100 cc of Omnipaque 350. Dose reduction technique was used on this scan by uti lizing automated exposure control and iterative reconstruction technique. The dose-length product (DL P) was 533.49 mGy-cm. COMPARISON: 05/10/2023 Findings: There is no evidence of any significant mediastinal, hilar or axillary lymphadenopathy. The mediastin al soft tissues and vascular structures appear normal. There is no evidence of pleural or pericardial effusion. Subcentimeter right lower lobe pulmonary nodules are stable to minimally decreased from prior exam. 8 mm left lower lobe pulmonary nodule is similar to prior exam. There is an enlarging hypodense left hepatic lobe mass, now measuring 4.7 x 2.1 cm (axial image 99), suspicious for metastasis. Additional benign, simple appearing cystic hepatic lesions are present, si milar to prior exam. Cholecystectomy clips are present, with small amount of pneumobilia. Small cysti c lesions in the spleen and pancreas are similar appearance to prior exam. The adrenals and kidneys a re within normal limits. There are atherosclerotic calcifications of the aorta. No lymphadenopathy. No bowel obstruction or bowel wall thickening. Ventral/umbilical hernia contains multiple small bowel loops. There is no evidence to suggest acute appendicitis. Urinary bladder is unremarkable. No pelvic mass seen. No ascites. Impression: Enlarging left hepatic lobe metastasis condyle measuring 4.7 x 2.1 cm. Subcentimeter pulmonary nodules, similar to prior exam, indeterminate. Additional probable benign, simple appearing hepatic cysts, similar to prior exam. Ventral hernia containing multiple small bowel loops. No bowel obstruction or bowel wall thickening. There is stable small cystic lesions in the spleen and pancreas. Reviewed, dictated and finalized at location . 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 Subcentimeter pulmonary nodules, similar to prior exam, indeterminate. Additional probable benign, simple appearing hepatic cysts, similar to prior ex am. Ventral hernia containing multiple small bowel loops. No bowel obstruction or b owel wall thickening. There is stable small cystic lesions in the spleen and pa ncreas.
[2023-08-19 10:10] LABS: Estimated Glomerular Filt Rate > 60
[2023-08-21 21:39] LABS: CA 19-9 27 U/mL (<34)
== END 2023-08-19 08:57 | disposition home or self-care (01) ==
PROVIDERS: PCP Family Medicine
DX: C24.1 Malignant neoplasm of ampulla of Vater (principal); R91.8 Other nonspecific abnormal finding of lung field
CPT/HCPCS: 36415; 36591; 71260; 74177; 86301; Q9967

== ENCOUNTER 2023-09-06 16:27 | Outpatient (CLI) | payer MEDICARE, MEDICAID, SELFPAY ==
--- NOTE | ~2023-09-06 | MR_ITS ---
EXAMINATION: MR brain/brain stem wo/w con DATE: 09/06/2023 18:04 INDICATION: New dizziness. TECHNIQUE: Magnetic resonance imaging (MRI) of the brain and brainstem was performed without and with 13 mL MultiHance intravenous contrast. COMPARISON: None. FINDINGS: There are scattered areas of nonspecific increased T2-weighted signal intensity in the cere bral white matter, which is within normal limits for the patient's age. There is no intracranial hemo rrhage, acute infarction, or abnormal intracranial mass lesion. The ventricles are normal in size. Th ere is mild mucosal thickening in the paranasal sinuses. The mastoid air cells are normal. The orbits are normal. IMPRESSION: 1. Normal aging brain. Reviewed, dictated and finalized at location E. ULAR DISTRIBUTOR IMPRESSION: 1. Normal aging brain.
== END 2023-09-06 16:28 | disposition home or self-care (01) ==
PROVIDERS: PCP Family Medicine; Visit Provider Radiology Radiation Oncology
DX: C24.1 Malignant neoplasm of ampulla of Vater (principal)
CPT/HCPCS: 70553; A9577

== ENCOUNTER 2023-11-19 08:43 | Outpatient (CLI) | payer MEDICARE, MEDICAID, SELFPAY ==
[2023-11-19 11:31] LABS: Basophils Percent Auto 0.6 % (0.2-1.2); Eosinophils Absolute Auto 0.1 K/mm3 (0-0.3); Eosinophils Percent Auto 2.7 % (0-4.4); Hematocrit 41.4 % (37.0-47.0); Hemoglobin 13.2 g/dL (12.0-15.0); Immature Granulocyte Absolute 0.01 K/mm3 (0.00-0.031); Immature Granulocyte Percent A 0.2 % (0-0.5); Lymphocytes Absolute Auto 1.29 K/mm3 (0.9-3.2); Mean Corpuscular HGB Conc 31.9 g/dl (32-36); Mean Corpuscular Hemoglobin 27.3 pg (26-34); Mean Corpuscular Volume 85.7 fl (80-100); Mean Platelet Volume 9.5 fl (7.4-10.4); Monocytes Absolute Auto 0.4 K/mm3 (0.1-0.6); Monocytes Percent Auto 7.9 % (2.6-8.5); Neutrophils Absolute Auto 2.9 K/mm3 (1.3-6.7); Neutrophils Percent Auto 61.6 % (45.5-73.1); Platelet Count Result 265 k/mm3 (150-375); Red Blood Count 4.83 M/mm3 (4.2-5.4); White Blood Count 4.8 K/mm3 (4.5-10.0)
[2023-11-19 13:52] LABS: Iron 69 ug/dL (37-170); Percent Iron Saturation 17 % (20-50)
[2023-11-19 15:01] LABS: Folic Acid 7.7 ng/mL (2.76->20); Vitamin B12 > 1000.0 pg/mL (239-931)
== END 2023-11-19 08:44 | disposition home or self-care (01) ==
PROVIDERS: PCP Family Medicine; Visit Provider Internal Medicine Hematology & Oncology
DX: D50.9 Iron deficiency anemia, unspecified (principal)
CPT/HCPCS: 36415; 82607; 82728; 82746; 83540; 83550; 85025

== ENCOUNTER 2023-11-19 08:54 | Outpatient (CLI) | payer MEDICARE, MEDICAID, SELFPAY ==
--- NOTE | ~2023-11-19 | PE_ITS ---
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 9.463 mCi of 18-fluorodeoxyglucose (18-FDG) was adminis tered i.v. Low dose computed tomography (CT) images were acquired from the base of the brain to the p roximal thighs for attenuation correction and anatomic localization. Positron emission tomography (PE T) images were acquired in the same distribution beginning 64 minutes after injection. Images includi ng fused PET/CT images were reconstructed in axial, coronal, and sagittal planes. Automated exposure control technique was employed. The dose-length product was 752.47mGy-cm. COMPARISON: 08/19/2023 FINDINGS: Head/neck: There is symmetric increased activity in the oral cavity, palatine tonsils, parotid glands, submandi bular glands, laryngeal muscles and ocular muscles without CT correlate, likely physiologic. No patho logically enlarged cervical lymphadenopathy or suspicious foci of increased FDG uptake in the visuali zed head or neck. Chest: Right internal jugular central venous port catheter with distal tip at the caudal superior vena cava. Mild discoid atelectasis in the lingula and right lower lobe. No suspicious pulmonary nodules, pneum onia, pulmonary edema or pleural effusion. Heart size is normal. No pericardial effusion. Thoracic ao rta is normal in caliber. Interval decrease in size and resolution of the prior abnormal FDG uptake a ssociated with several left axillary lymph nodes which could represent either resolution of reactive lymphadenopathy or response to treatment of metastatic disease. No pathologically enlarged or FDG nata d thoracic lymphadenopathy. Small focus of contaminant activity on the material external to the patie nt superficial to the left breast. Abdomen/pelvis/proximal thighs: Again seen is some pneumobilia likely related to a prior Whipple procedure for reported ampullary can cer. There are photopenic defects associated with homogeneous fluid attenuation cystic lesions measur ing 6.3 cm the dome of the liver and 5.0 cm in the more caudal right hepatic lobe. Interval decrease in the degree of FDG uptake with current maximal SUV of 5.6 (previously 17.6) associated with a less well-defined approximately 4.3 x 2.2 cm lesion in the lateral segment of the left buttock lobe which is of lower density than the surrounding liver but greater than simple fluid attenuation consistent w ith response to treatment of metastatic disease. Small metallic density at the margin of the lesion w hich is new since the prior PET study potentially either a surgical clip or embolization coil. Cholec ystectomy clips the gallbladder fossa. Spleen, remaining pancreas and bilateral adrenal glands are no rmal. Physiologic renal accumulation and excretion of FDG activity in the kidneys, bladder and along portions of ureters. Mild to moderate uptake scattered throughout the bowels without radiologic corre late, also likely physiologic. Large wide mouthed ventral hernia containing portion of the transverse colon and multiple loops of nonobstructed small bowel. Normal appendix. No other abnormal foci of in creased FDG uptake or pathologically enlarged lymphadenopathy in the abdomen, pelvis or proximal thig hs. Musculoskeletal: C4-C6 instrumented anterior spinal fusion with anterior plate and screw fixation. Severe lower lumbar spondylosis and mild to moderate intervening thoracic spondylosis. No suspicious lytic, blastic or a bnormally FDG avid bone lesions. IMPRESSION: 1. Postoperative change of prior Whipple procedure for reported ampullary cancer. 2. Decrease in degree of elevated FDG uptake associated with a 4.3 x 2.2 cm lesion in the lateral seg ment of the left hepatic lobe consistent with response to treatment of metastatic disease. No other l esions suspicious for metastatic disease identified. 3. Decrease i
[2023-11-19 09:20] LABS: Glucose Point of Care 140 mg/dl (65-105)
== END 2023-11-19 08:55 | disposition home or self-care (01) ==
PROVIDERS: PCP Family Medicine; Visit Provider Radiology Radiation Oncology
DX: C24.1 Malignant neoplasm of ampulla of Vater (principal)
CPT/HCPCS: 36415; 78815; 82607; 82728; 82746; 83540; 83550; 85025; A9552

== ENCOUNTER 2024-01-29 13:14 | Emergency (ER) | payer MEDICARE, MEDICAID, SELFPAY ==
[2024-01-29 13:28] VITALS: BP 113/76; PULSE 82; RESP 18; TEMP 36.6; O2SAT 99
--- NOTE | 2024-01-29 14:17 | ED.GENADULT ---
HPI - General Adult General Chief complaint: Back Pain/Injury Stated complaint: Pain in rib cage Source: patient Mode of arrival: ambulatory Limitations: no limitations History of Present Illness HPI narrative: Patient presents for evaluation of left-sided abdominal pain. Symptom onset 1 week ago. Pain is intermittent, occurring several times per day. She cannot provide me with a frequency in which she is experiencing symptoms. She states that eating, drinking water, and certain movements make her symptoms worse. She tried taking Tylenol occasionally for symptoms. She has experienced chills and nausea without fever or vomiting. No change in bowel pattern. No urinary symptoms. She has an underlying history of pancreatic cancer status post Whipple procedure 2 years ago. She states that she was in remission and then a new lesion was identified on her liver earlier this year. She states she was treated with radiation. She has a planned CT scan of her abdomen and pelvis next month. She rates her pain as 7/10 but cannot provide me with a descriptive quality to the pain. Related Data Home Medications Medication Instructions Recorded Confirmed albuterol sulfate 90 mcg/actuation 1 inhalation inhalation Q4H PRN 07/29/19 01/29/24 aerosol inhaler (ProAir HFA) Shortness Of Breath alprazolam 1 mg tablet 1 mg PO HS 07/29/19 01/29/24 hydrochlorothiazide 25 mg tablet 37.5 mg PO DAILY 07/29/19 01/29/24 sertraline 50 mg tablet 50 mg PO HS 07/29/19 01/29/24 simvastatin 20 mg tablet 20 mg PO HS 07/29/19 01/29/24 potassium chloride 20 mEq 20 meq PO DAILY 10/17/21 01/29/24 tablet,extended release amlodipine 5 mg tablet 5 mg PO DAILY 04/03/22 01/29/24 metformin 500 mg tablet 500 mg PO BID 06/11/23 01/29/24 dapagliflozin propanediol 10 mg 10 mg PO DAILY 01/21/24 01/29/24 tablet (Farxiga) mecobalamin (vitamin B12) 500 mcg 500 mcg PO DAILY 01/21/24 01/29/24 chewable tablet Allergies Allergy/AdvReac Type Severity Reaction Status Date / Time Macrolide Antibiotics Allergy Intermediate ITCHING Verified 01/29/24 13:51 amoxicillin Allergy Unknown Itching Verified 01/29/24 13:51 erythromycin base Allergy Unknown Itching Verified 01/29/24 13:51 naproxen Allergy Unknown Rash Verified 01/29/24 13:51 Penicillins Allergy Unknown Itching Verified 01/29/24 13:51 Sulfa (Sulfonamide Allergy Unknown Dizziness Verified 01/29/24 13:51 Antibiotics) Iodinated Contrast Media Allergy Hives Verified 01/29/24 14:16 iohexol Allergy Itching Verified 01/29/24 13:51 [From contrast - CT, X-RAY] gadobenic acid AdvReac Itching Verified 01/29/24 14:12 [From contrast - MRI] Contrast Media Allergy Intermediate ITCHING Uncoded 01/29/24 13:51 Review of Systems Review of Systems: CONSTITUTIONAL: Reports chills. Denies fever. EYES: Denies visual changes, redness, or discharge. ENT: Denies rhinorrhea, congestion, sore throat, or otalgia. CARDIOVASCULAR: Denies chest pain, palpitations, or edema. RESPIRATORY: Denies cough or dyspnea. GASTROINTESTINAL: Reports abdominal pain and nausea. Denies vomiting or diarrhea. GENITOURINARY: Denies dysuria or hematuria. SKIN: Denies rash or itching. MUSCULOSKELETAL: Denies back pain, joint pain, or myalgia. NEUROLOGIC: Denies headache, numbness, dizziness, or weakness. PSYCHIATRIC: Denies anxiety or depression. [facility] Past Medical History Medical History Abdominal bloating Anxiety Arthritis Asthma Bronchitis Chronic back pain Coughing DDD (degenerative disc disease) Depression Diarrhea Dilated intrahepatic bile duct Essential hypertension Fibroids GERD (gastroesophageal reflux disease) Helicobacter pylori (H. pylori) Hiatal hernia High cholesterol Hyperlipidemia Hypertension Hypoxia Nausea On home O2 BETTY (obstructive sleep apnea) No longer uses CPAP Overweight (BMI 25.0-29.9) Pancreatic cancer Ana-ampullary neoplasm Post-menopau
== END 2024-01-29 14:10 | disposition short-term general hospital (02) ==
PROVIDERS: Emergency Provider Nurse Practitioner; PCP Family Medicine
DX: R10.12 Left upper quadrant pain (principal); Z87.891 Personal history of nicotine dependence; I10 Essential (primary) hypertension; K21.9 Gastro-esophageal reflux disease without esophagitis; E78.00 Pure hypercholesterolemia, unspecified; E78.5 Hyperlipidemia, unspecified; M19.90 Unspecified osteoarthritis, unspecified site; F41.9 Anxiety disorder, unspecified; F32.A Depression, unspecified; Z85.07 Personal history of malignant neoplasm of pancreas; Z85.05 Personal history of malignant neoplasm of liver; Z92.3 Personal history of irradiation
CPT/HCPCS: 99212; G0463

== ENCOUNTER 2024-01-29 14:33 | Emergency (ER) | payer MEDICARE, MEDICAID, SELFPAY ==
--- NOTE | ~2024-01-29 | CT_ITS ---
EXAMINATION: CT abdomen pelvis wo con DATE: 01/29/2024 15:46 INDICATION: Left-sided abdominal pain and nausea TECHNIQUE: Computed tomography (CT) of the abdomen and pelvis was performed without intravenous contr ast. Automated exposure control and iterative reconstruction technique were employed. The dose-length product was 561.80 mGy-cm. COMPARISON: CT dated 08/19/2023 and 12/19/2021 and PET/CT dated 11/29/2023 FINDINGS: Mild emphysema. No interval change since 12/19/2021 in a couple pulmonary nodules in the bilateral low er lobes the largest on the left measuring 6 x 4 mm consistent with sequela of old granulomatous dise ase. Heart size is normal. No pericardial or pleural effusion. Small density seen on the cephalad-mos t images at the superior cavoatrial junction likely representing the tip of a previously seen right i nternal jugular central venous port catheter. Pneumobilia in the nondependent left hepatic lobe likel y related to prior cholecystectomy with surgical clips the gallbladder fossa. Additional postoperativ e changes of Whipple procedure with additional pancreaticoduodenectomy, choledochojejunostomy and gas trojejunostomy. There are several unchanged large low-attenuation well-defined hepatic cysts, the lar gest measuring 8.9 cm. More subtle and less well-defined hypodense lesion in the lateral segment left hepatic lobe consistent with treated metastatic disease which does not appear significantly changed but is more difficult to delineate on the current noncontrast imaging. No interval change in chronic likely benign 8 mm cystic lesions at the spleen and tail of the pancreas. Bilateral adrenal glands an d kidneys are normal. Again seen is a large wide mouthed ventral hernia containing multiple loops of nonobstructed small bowel as well as a portion of the transverse colon. There are postoperative mayfield es with high attenuation suture lines along the peripheral margin of the hernia. Normal appendix. Harpreet dder is normal. The uterus is not identified and has likely been surgically resected. No free intrape ritoneal gas or fluid. No pathologically enlarged abdominal or pelvic lymphadenopathy. Severe lower l umbar spondylosis. IMPRESSION: 1. No acute intra-abdominal/pelvic process. 2. 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 3. No significant interval change accounting for differences in technique in a poorly defined hypoden se mass in the lateral segment left hepatic lobe likely related to treated metastatic disease. 4. Large ventral hernia containing several nonobstructed loops of large and small bowel. Reviewed, dictated and finalized at location A. IMPRESSION: 1. No acute intra-abdominal/pelvic process. 2. Persistent pneumobilia likely related to presence of a choledochojejunostomy performed as part of a Whipple procedure for reported history of the ampulla o f Vater. 3. No significant interval change accounting for differences in technique in a poorly defined hypodense mass in the lateral segment left hepatic lobe likely r elated to treated metastatic disease. 4. Large ventral hernia containing several nonobstructed loops of large and sma ll bowel.
[2024-01-29 14:34] VITALS: BP 119/83; PULSE 78; RESP 17; TEMP 36.7; O2SAT 100
--- NOTE | 2024-01-29 16:41 | ED.GENADULT ---
HPI - General Adult General Chief complaint: Abdominal Pain Stated complaint: abd pain Time Seen by Provider: 01/29/24 14:55 History of Present Illness HPI narrative: patient is a 5-year-old female who presents ER with left-sided abdominal pain. Cramping in nature. Will be sharp and dissipate. Ongoing over last week. No urinary frequency urgency or dysuria. No diarrhea. She is passing gas without issue. Has history of Whipple due to pancreatic cancer. She has had radiation to some liver metastases. Related Data Home Medications Medication Instructions Recorded Confirmed albuterol sulfate 90 mcg/actuation 1 inhalation inhalation Q4H PRN 07/29/19 01/29/24 aerosol inhaler (ProAir HFA) Shortness Of Breath alprazolam 1 mg tablet 1 mg PO HS 07/29/19 01/29/24 hydrochlorothiazide 25 mg tablet 37.5 mg PO DAILY 07/29/19 01/29/24 sertraline 50 mg tablet 50 mg PO HS 07/29/19 01/29/24 simvastatin 20 mg tablet 20 mg PO HS 07/29/19 01/29/24 potassium chloride 20 mEq 20 meq PO DAILY 10/17/21 01/29/24 tablet,extended release amlodipine 5 mg tablet 5 mg PO DAILY 04/03/22 01/29/24 metformin 500 mg tablet 500 mg PO BID 06/11/23 01/29/24 dapagliflozin propanediol 10 mg 10 mg PO DAILY 01/21/24 01/29/24 tablet (Farxiga) mecobalamin (vitamin B12) 500 mcg 500 mcg PO DAILY 01/21/24 01/29/24 chewable tablet Allergies Allergy/AdvReac Type Severity Reaction Status Date / Time Macrolide Antibiotics Allergy Intermediate ITCHING Verified 01/29/24 17:01 amoxicillin Allergy Unknown Itching Verified 01/29/24 17:01 erythromycin base Allergy Unknown Itching Verified 01/29/24 17:01 naproxen Allergy Unknown Rash Verified 01/29/24 17:01 Penicillins Allergy Unknown Itching Verified 01/29/24 17:01 Sulfa (Sulfonamide Allergy Unknown Dizziness Verified 01/29/24 17:01 Antibiotics) Iodinated Contrast Media Allergy Hives Verified 01/29/24 17:01 iohexol Allergy Itching Verified 01/29/24 17:01 [From contrast - CT, X-RAY] gadobenic acid AdvReac Itching Verified 01/29/24 17:01 [From contrast - MRI] Contrast Media Allergy Intermediate ITCHING Uncoded 01/29/24 17:01 Review of Systems Review of Systems: All systems reviewed & are unremarkable except as noted in HPI and below Constitutional: Constitutional: Reports no additional constitutional complaints ENT: Reports system reviewed and no additional complaints, except as documented Cardiovascular: Cardiovascular: Reports no additional cardiovascular complaints Respiratory: Respiratory: Reports no additional respiratory complaints Gastrointestinal: Gastrointestinal: Reports abdominal pain, Denies bloating, Denies constipation, Denies nausea and Denies vomiting Genitourinary: Genitourinary: Reports no additional female genitourinary complaints [facility] Past Medical History Medical History Abdominal bloating Anxiety Arthritis Asthma Bronchitis Chronic back pain Coughing DDD (degenerative disc disease) Depression Diarrhea Dilated intrahepatic bile duct Essential hypertension Fibroids GERD (gastroesophageal reflux disease) Helicobacter pylori (H. pylori) Hiatal hernia High cholesterol Hyperlipidemia Hypertension Hypoxia Nausea On home O2 BETTY (obstructive sleep apnea) No longer uses CPAP Overweight (BMI 25.0-29.9) Pancreatic cancer Ana-ampullary neoplasm Post-menopausal Pulmonary hypertension Seasonal allergies Sleep apnea Upper abdominal pain Wears glasses Surgical History Surgical History History of cardiac catheterization History of dilatation and curettage History of hysterectomy History of sinus surgery History of spinal surgery Cervical fusion History of thyroidectomy Goiter removed History of tubal ligation Family History Family History Father Family history of malignant ne
[2024-01-29 16:48] LABS: Basophils Percent Auto 0.4 % (0.2-1.2); Eosinophils Absolute Auto 0.1 K/mm3 (0-0.3); Eosinophils Percent Auto 0.9 % (0-4.4); Hematocrit 41.3 % (37.0-47.0); Hemoglobin 13.9 g/dL (12.0-15.0); Immature Granulocyte Absolute 0.02 K/mm3 (0.00-0.031); Immature Granulocyte Percent A 0.4 % (0-0.5); Lymphocytes Absolute Auto 1.73 K/mm3 (0.9-3.2); Lymphocytes Percent Auto 30.5 % (18.3-44.2); Mean Corpuscular HGB Conc 33.7 g/dl (32-36); Mean Corpuscular Hemoglobin 28.1 pg (26-34); Mean Corpuscular Volume 83.4 fl (80-100); Mean Platelet Volume 9.7 fl (7.4-10.4); Monocytes Absolute Auto 0.3 K/mm3 (0.1-0.6); Monocytes Percent Auto 5.6 % (2.6-8.5); Neutrophils Absolute Auto 3.5 K/mm3 (1.3-6.7); Neutrophils Percent Auto 62.2 % (45.5-73.1); Platelet Count Result 246 k/mm3 (150-375); Red Blood Count 4.95 M/mm3 (4.2-5.4); Red Cell Distribution Width 13.9 % (11.5-14.5); White Blood Count 5.7 K/mm3 (4.5-10.0)
[2024-01-29 16:51] LABS: Appearance Urine Clear (Clear); Bilirubin Urine Negative (Negative); Blood Urine Negative (Negative); Color Urine Yellow (Yellow); Glucose Urine UA 3+ mg/dL (Negative); Ketones Urine Negative (Negative); Leukocyte Esterase Ur Negative LEU/UL (Negative); Nitrate Urine Negative (Negative); Protein Urine Negative (Negative); Specific Grav Ur 1.015 (1.001-1.035); Urobilinogen Urine 0.2 mg/dL (<2.0)
[2024-01-29 17:11] LABS: Add Urine Microscopic? NO
== END 2024-01-29 18:47 | disposition home or self-care (01) ==
PROVIDERS: Emergency Provider Emergency Medicine; PCP Family Medicine
DX: R10.9 Unspecified abdominal pain (principal); J45.909 Unspecified asthma, uncomplicated; I10 Essential (primary) hypertension; I27.20 Pulmonary hypertension, unspecified; E78.00 Pure hypercholesterolemia, unspecified; E66.3 Overweight; Z68.28 Body mass index [BMI] 28.0-28.9, adult; E89.0 Postprocedural hypothyroidism; G47.33 Obstructive sleep apnea (adult) (pediatric); K44.9 Diaphragmatic hernia without obstruction or gangrene; K21.9 Gastro-esophageal reflux disease without esophagitis; F41.9 Anxiety disorder, unspecified; F32.A Depression, unspecified; Z99.81 Dependence on supplemental oxygen; Z85.07 Personal history of malignant neoplasm of pancreas; Z85.05 Personal history of malignant neoplasm of liver; Z92.3 Personal history of irradiation; Z87.891 Personal history of nicotine dependence; Z90.710 Acquired absence of both cervix and uterus; Z98.1 Arthrodesis status; Z79.84 Long term (current) use of oral hypoglycemic drugs; K43.9 Ventral hernia without obstruction or gangrene
CPT/HCPCS: 36415; 74176; 81003; 85025; 99284

== ENCOUNTER 2024-02-06 11:00 | Outpatient (CLI) | payer MEDICARE, MEDICAID, SELFPAY ==
[2024-02-06 11:41] LABS: Hematocrit 39.3 % (37.0-47.0); Mean Corpuscular HGB Conc 33.1 g/dl (32-36); Mean Corpuscular Hemoglobin 28.1 pg (26-34); Mean Corpuscular Volume 85.1 fl (80-100); Mean Platelet Volume 9.2 fl (7.4-10.4); Platelet Count Result 271 k/mm3 (150-375); Red Blood Count 4.62 M/mm3 (4.2-5.4); White Blood Count 4.6 K/mm3 (4.5-10.0)
[2024-02-06 12:03] LABS: Alanine Aminotransferase 37 U/L (6-35); Alkaline Phosphatase 68 U/L (38-126); Anion Gap 8 mmol/L (4-12); Aspartate Amino Transferase 35 U/L (14-36); Bilirubin,Total 0.4 mg/dL (0.2-1.3); Blood Urea Nitrogen 16 mg/dL (7-17); Calcium 9.9 mg/dL (8.4-10.2); Carbon Dioxide 32 mmol/L (22-30); Chloride 101 mmol/L (98-107); Estimated Glomerular Filt Rate > 60; Glucose 96 mg/dL (65-110); Potassium 4.1 mmol/L (3.4-5.0); Sodium 141 mmol/L (137-145)
[2024-02-06 12:22] LABS: Hemoglobin A1C 6.2 % (<5.7)
== END 2024-02-06 11:01 | disposition home or self-care (01) ==
LOC: ANHLAB 11:03
PROVIDERS: PCP Family Medicine; Visit Provider Family Medicine
DX: D64.9 Anemia, unspecified (principal); E11.9 Type 2 diabetes mellitus without complications; E78.5 Hyperlipidemia, unspecified; I10 Essential (primary) hypertension
CPT/HCPCS: 36415; 80053; 83036; 84443; 85027

== ENCOUNTER 2024-02-18 12:12 | Emergency (ER) | payer MEDICARE, MEDICAID, SELFPAY ==
--- NOTE | ~2024-02-18 | CT_ITS ---
EXAMINATION: CT abdomen pelvis wo con DATE: 02/18/2024 15:43 INDICATION: Abdominal pain. Hernia. TECHNIQUE: Computed tomography (CT) of the abdomen and pelvis was performed without intravenous contr ast. Automated exposure control and iterative reconstruction technique were employed. The dose-length product was 497.43 mGy-cm. COMPARISON: CT abdomen and pelvis 01/29/2024, PET/CT 11/19/23 FINDINGS: The visualized portions of the lung bases and inferior mild atelectasis. No pleural effusio n. The heart size is normal. No pericardial effusion. There is a catheter tip at superior cavoatrial junction. There are cysts in the liver measuring up to 6.9 cm. There is an ill-defined mass in left h epatic lobe measuring 3.9 x 1.9 cm. There are changes of Whipple procedure. The spleen, pancreas, adr enal glands, and kidneys are normal. There is no urolithiasis. There is a large ventral hernia contai brianda nonobstructed small and large bowel and stomach. Body wall edema is noted. Again seen is mild fa t stranding at the root of the small bowel mesentery. There are no pathologically enlarged lymph node s. There is severe lumbar spondylosis and moderate thoracic spondylosis. Thoracolumbar levoscoliosis is noted. IMPRESSION: 1. Stable mass in left hepatic lobe, consistent with metastatic disease. 2. Large ventral hernia containing nonobstructed small and large bowel and stomach. Reviewed, dictated and finalized at location E. IMPRESSION: 1. Stable mass in left hepatic lobe, consistent with metastatic disease. 2. Large ventral hernia containing nonobstructed small and large bowel and stom ach.
[2024-02-18 12:22] VITALS: BP 120/74; PULSE 75; RESP 18; TEMP 36.2; O2SAT 100
--- NOTE | 2024-02-18 15:17 | ECG_ITS ---
Test Date: 2024-02-18 16:04:38 Measurements Intervals [place] Rate: 64 P: 29 DE: 160 QRS: -12 QRSD: 106 T: 3 QT: 314 QTc: 324 Interpretive Statements SINUS RHYTHM DELAYED PRECORDIAL R/S TRANSITION VOLTAGE CRITERIA FOR LVH NONSPECIFIC T-WAVE ABNORMALITY- ANT/INF LEADS BORDERLINE ECG No previous ECG available for comparison Electronically Signed On 02-18-2024 18:29:36 CDT by Simeon Mistry D.O.
[2024-02-18] MEDS: BELLADONNA ALK/PHENOB ELIX 10 ML, MAG HYDROX/ALUMINUM HYD/SIMETH 30 ML, LIDOCAINE HCL 2... PO (15:21)
[2024-02-18] MEDS: FAMOTIDINE 20 MG/2 ML VIAL IV PUSH (15:21)
[2024-02-18 15:23] LABS: Basophils Percent Auto 0.5 % (0.2-1.2); Eosinophils Absolute Auto 0.2 K/mm3 (0-0.3); Eosinophils Percent Auto 3.5 % (0-4.4); Hematocrit 39.8 % (37.0-47.0); Hemoglobin 13.1 g/dL (12.0-15.0); Immature Granulocyte Absolute 0.01 K/mm3 (0.00-0.031); Immature Granulocyte Percent A 0.2 % (0-0.5); Lymphocytes Absolute Auto 1.85 K/mm3 (0.9-3.2); Lymphocytes Percent Auto 32.2 % (18.3-44.2); Mean Corpuscular HGB Conc 32.9 g/dl (32-36); Mean Platelet Volume 9.2 fl (7.4-10.4); Monocytes Absolute Auto 0.4 K/mm3 (0.1-0.6); Monocytes Percent Auto 6.6 % (2.6-8.5); Neutrophils Absolute Auto 3.3 K/mm3 (1.3-6.7); Platelet Count Result 261 k/mm3 (150-375); Red Blood Count 4.68 M/mm3 (4.2-5.4); Red Cell Distribution Width 14.1 % (11.5-14.5); White Blood Count 5.8 K/mm3 (4.5-10.0)
[2024-02-18 15:25] LABS: Appearance Urine Clear (Clear); Bilirubin Urine Negative (Negative); Blood Urine Negative (Negative); Color Urine Yellow (Yellow); Glucose Urine UA 2+ mg/dL (Negative); Ketones Urine Negative (Negative); Leukocyte Esterase Ur Negative LEU/UL (Negative); Nitrate Urine Negative (Negative); Protein Urine Negative (Negative); Specific Grav Ur 1.023 (1.001-1.035); Urobilinogen Urine 0.2 mg/dL (<2.0); pH Urine 5.5 (5.0-9.0)
[2024-02-18 15:28] LABS: Alanine Aminotransferase 31 U/L (6-35); Albumin Level 5.1 g/dL (3.5-5.1); Alkaline Phosphatase 79 U/L (38-126); Anion Gap 11 mmol/L (4-12); Aspartate Amino Transferase 35 U/L (14-36); Bilirubin,Total 0.8 mg/dL (0.2-1.3); Blood Urea Nitrogen 16 mg/dL (7-17); Calcium 9.3 mg/dL (8.4-10.2); Carbon Dioxide 29 mmol/L (22-30); Chloride 100 mmol/L (98-107); Estimated Glomerular Filt Rate > 60; Glucose 95 mg/dL (65-110); Lipase 35 U/L (23-300); Potassium 3.3 mmol/L (3.4-5.0); Sodium 140 mmol/L (137-145)
[2024-02-18 15:30] LABS: Add Urine Microscopic? YES
[2024-02-18 16:04] LABS: Troponin I < 0.012 ng/mL (0.000-0.034)
[2024-02-18 17:23] VITALS: BP 137/83; PULSE 67; RESP 17; O2SAT 99
--- NOTE | 2024-02-18 17:25 | ED.GENADULT ---
HPI - General Adult General Chief complaint: Abdominal Pain Stated complaint: abdominal pain Time Seen by Provider: 02/18/24 14:32 History of Present Illness HPI narrative: This is a 68-year-old female, with history of ventral hernia, pancreatic cancer status post Whipple and recent discovery of suspected metastases, who presents to the emergency department complaining of abdominal pain. The patient states this is occurred off and on for the past several days. She describes pain as sharp, in the epigastrium associated with intermittent swelling of the abdomen. The patient denies associated fevers, nausea or vomiting. She states she is able to pass gas and stool without blood or difficulty. She has no other complaints at this time. Related Data Home Medications Medication Instructions Recorded Confirmed albuterol sulfate 90 mcg/actuation 1 inhalation inhalation Q4H PRN 07/29/19 02/06/24 aerosol inhaler (ProAir HFA) Shortness Of Breath alprazolam 1 mg tablet 1 mg PO HS 07/29/19 02/06/24 hydrochlorothiazide 25 mg tablet 37.5 mg PO DAILY 07/29/19 02/06/24 sertraline 50 mg tablet 50 mg PO HS 07/29/19 02/06/24 simvastatin 20 mg tablet 20 mg PO HS 07/29/19 02/06/24 potassium chloride 20 mEq 20 meq PO DAILY 10/17/21 02/06/24 tablet,extended release amlodipine 5 mg tablet 5 mg PO DAILY 04/03/22 02/06/24 metformin 500 mg tablet 500 mg PO BID 06/11/23 02/06/24 dapagliflozin propanediol 10 mg 10 mg PO DAILY 01/21/24 02/06/24 tablet (Farxiga) mecobalamin (vitamin B12) 500 mcg 500 mcg PO DAILY 01/21/24 02/06/24 chewable tablet Allergies Allergy/AdvReac Type Severity Reaction Status Date / Time Macrolide Antibiotics Allergy Intermediate ITCHING Verified 02/18/24 15:08 amoxicillin Allergy Unknown Itching Verified 02/18/24 15:08 erythromycin base Allergy Unknown Itching Verified 02/18/24 15:08 naproxen Allergy Unknown Rash Verified 02/18/24 15:08 Penicillins Allergy Unknown Itching Verified 02/18/24 15:08 Sulfa (Sulfonamide Allergy Unknown Dizziness Verified 02/18/24 15:08 Antibiotics) Iodinated Contrast Media Allergy Hives Verified 02/18/24 15:08 iohexol Allergy Itching Verified 02/18/24 15:08 [From contrast - CT, X-RAY] gadobenic acid AdvReac Itching Verified 02/18/24 15:08 [From contrast - MRI] Contrast Media Allergy Intermediate ITCHING Uncoded 02/18/24 15:08 Review of Systems Review of Systems: All systems reviewed & are unremarkable except as noted in HPI and below PMFSH Past Medical History Medical History Abdominal bloating Anxiety Arthritis Asthma Bronchitis Chronic back pain Coughing DDD (degenerative disc disease) Depression Diarrhea Dilated intrahepatic bile duct Essential hypertension Fibroids GERD (gastroesophageal reflux disease) Helicobacter pylori (H. pylori) Hiatal hernia High cholesterol Hyperlipidemia Hypertension Hypoxia Nausea On home O2 BETTY (obstructive sleep apnea) No longer uses CPAP Overweight (BMI 25.0-29.9) Pancreatic cancer Ana-ampullary neoplasm Post-menopausal Pulmonary hypertension Seasonal allergies Sleep apnea Upper abdominal pain Wears glasses Surgical History Surgical History History of cardiac catheterization History of dilatation and curettage History of hysterectomy History of sinus surgery History of spinal surgery Cervical fusion History of thyroidectomy Goiter removed History of tubal ligation Family History Family History Father Family history of malignant neoplasm Leukemia Mother Liver cirrhosis Sibling Asthma Malignant neoplasm of prostate Diabetes mellitus Hypertension Other Arthritis Social History Social History Social History: The patient lives at home with her who is a durable power a
== END 2024-02-18 17:57 | disposition home or self-care (01) ==
PROVIDERS: Emergency Provider Preventive Medicine Aerospace Medicine; PCP Family Medicine
DX: K43.9 Ventral hernia without obstruction or gangrene (principal); J45.909 Unspecified asthma, uncomplicated; I10 Essential (primary) hypertension; I27.20 Pulmonary hypertension, unspecified; E78.00 Pure hypercholesterolemia, unspecified; E66.3 Overweight; Z68.28 Body mass index [BMI] 28.0-28.9, adult; E89.0 Postprocedural hypothyroidism; G47.33 Obstructive sleep apnea (adult) (pediatric); K44.9 Diaphragmatic hernia without obstruction or gangrene; K21.9 Gastro-esophageal reflux disease without esophagitis; F41.9 Anxiety disorder, unspecified; F32.A Depression, unspecified; Z99.81 Dependence on supplemental oxygen; Z85.07 Personal history of malignant neoplasm of pancreas; Z85.05 Personal history of malignant neoplasm of liver; Z92.3 Personal history of irradiation; Z87.891 Personal history of nicotine dependence; Z90.710 Acquired absence of both cervix and uterus; Z98.1 Arthrodesis status; Z79.84 Long term (current) use of oral hypoglycemic drugs; Z79.899 Other long term (current) drug therapy; R16.0 Hepatomegaly, not elsewhere classified; R94.31 Abnormal electrocardiogram [ECG] [EKG]
CPT/HCPCS: 36415; 74176; 80053; 81001; 83690; 84484; 85025; 93005; 96374; 99284; A9270

== ENCOUNTER 2024-02-19 12:21 | Outpatient (CLI) | payer MEDICARE, MEDICAID, SELFPAY ==
--- NOTE | ~2024-02-19 | CT_ITS ---
Clinical Indication: Ampullary carcinoma CT Scan of the Chest, Abdomen, and Pelvis with Contrast: Technique: Contiguous sections were acquired throughout the chest, abdomen, and pelvis after intraven ous administration of 100 cc of Omnipaque 350. Dose reduction technique was used on this scan by uti anjelicaing automated exposure control and iterative reconstruction technique. The dose-length product (DL P) was 600.44 mGy-cm. COMPARISON: 08/19/2023 Findings: There is no evidence of any significant mediastinal, hilar or axillary lymphadenopathy. The mediastin al soft tissues appear normal. There is no evidence of pleural or pericardial effusion. Several subcentimeter pulmonary nodules are unchanged, largest at the left lung base measuring 6 mm. Stable simple hepatic cysts are present. There is a hypodense solid mass in the left hepatic lobe, wh ich is decreased in size from prior exam, now measuring 3.4 cm in maximum diameter (4.4 cm on ). Status post cholecystectomy. The spleen, pancreas, adrenals and kidneys are within normal limits. No evidence of aortic aneurysm. No lymphadenopathy. Large umbilical hernia present, containing multiple small bowel loops and mesenteric fat. No bowel ob struction or bowel wall thickening evident. Urinary bladder is unremarkable. No pelvic mass seen. No ascites. Impression: 3.4 cm metastatic lesion left hepatic lobe, which is decreased in size since 08/19/2023, possibly repre senting treated disease. Correlate clinically. Stable postoperative changes. Stable large umbilical hernia containing multiple small bowel loops. No bowel obstruction or bowel wa ll thickening. Several subcentimeter pulmonary nodules are unchanged. Reviewed, dictated and finalized at [facility]. Impression: 3.4 cm metastatic lesion left hepatic lobe, which is decreased in size since 08/19/2023, possibly representing treated disease. Correlate clinically. Stable postoperative changes. Stable large umbilical hernia containing multiple small bowel loops. No bowel o bstruction or bowel wall thickening. Several subcentimeter pulmonary nodules are unchanged.
[2024-02-19 13:01] LABS: Basophils Percent Auto 0.2 % (0.2-1.2); Hematocrit 39.9 % (37.0-47.0); Hemoglobin 13.4 g/dL (12.0-15.0); Immature Granulocyte Absolute 0.04 K/mm3 (0.00-0.031); Immature Granulocyte Percent A 0.5 % (0-0.5); Lymphocytes Absolute Auto 0.94 K/mm3 (0.9-3.2); Lymphocytes Percent Auto 10.9 % (18.3-44.2); Mean Corpuscular HGB Conc 33.6 g/dl (32-36); Mean Corpuscular Hemoglobin 28.2 pg (26-34); Mean Corpuscular Volume 83.8 fl (80-100); Monocytes Absolute Auto 0.1 K/mm3 (0.1-0.6); Monocytes Percent Auto 1.6 % (2.6-8.5); Neutrophils Absolute Auto 7.5 K/mm3 (1.3-6.7); Neutrophils Percent Auto 86.8 % (45.5-73.1); Platelet Count Result 272 k/mm3 (150-375); Red Blood Count 4.76 M/mm3 (4.2-5.4); Red Cell Distribution Width 13.7 % (11.5-14.5); White Blood Count 8.6 K/mm3 (4.5-10.0)
[2024-02-19 13:23] LABS: Alanine Aminotransferase 30 U/L (6-35); Albumin Level 5.2 g/dL (3.5-5.1); Alkaline Phosphatase 80 U/L (38-126); Anion Gap 16 mmol/L (4-12); Aspartate Amino Transferase 28 U/L (14-36); Bilirubin,Total 0.5 mg/dL (0.2-1.3); Blood Urea Nitrogen 17 mg/dL (7-17); Calcium 9.6 mg/dL (8.4-10.2); Carbon Dioxide 26 mmol/L (22-30); Chloride 99 mmol/L (98-107); Estimated Glomerular Filt Rate > 60; Glucose 147 mg/dL (65-110); Potassium 3.5 mmol/L (3.4-5.0); Sodium 141 mmol/L (137-145)
[2024-02-20 15:02] LABS: CA 19-9 34 U/mL (<34)
== END 2024-02-19 12:22 | disposition home or self-care (01) ==
PROVIDERS: PCP Family Medicine; Visit Provider Internal Medicine Hematology & Oncology
DX: C24.1 Malignant neoplasm of ampulla of Vater (principal)
CPT/HCPCS: 36415; 71260; 74177; 80053; 85025; 86301; 99212; G0463; Q9967

== ENCOUNTER 2024-04-30 09:06 | Outpatient (CLI) | payer MEDICARE, MEDICAID, SELFPAY ==
[2024-04-30 10:08] LABS: Basophils Percent Auto 0.1 % (0.2-1.2); Hematocrit 39.3 % (37.0-47.0); Immature Granulocyte Absolute 0.05 K/mm3 (0.00-0.031); Immature Granulocyte Percent A 0.6 % (0-0.5); Lymphocytes Absolute Auto 1.16 K/mm3 (0.9-3.2); Lymphocytes Percent Auto 14.8 % (18.3-44.2); Mean Corpuscular HGB Conc 33.1 g/dl (32-36); Mean Corpuscular Hemoglobin 28.1 pg (26-34); Mean Corpuscular Volume 85.1 fl (80-100); Mean Platelet Volume 9.2 fl (7.4-10.4); Monocytes Absolute Auto 0.2 K/mm3 (0.1-0.6); Monocytes Percent Auto 2.4 % (2.6-8.5); Neutrophils Absolute Auto 6.4 K/mm3 (1.3-6.7); Neutrophils Percent Auto 82.1 % (45.5-73.1); Platelet Count Result 255 k/mm3 (150-375); Red Blood Count 4.62 M/mm3 (4.2-5.4); Red Cell Distribution Width 13.8 % (11.5-14.5); White Blood Count 7.9 K/mm3 (4.5-10.0)
[2024-04-30 10:15] LABS: Alanine Aminotransferase 25 U/L (6-35); Alkaline Phosphatase 71 U/L (38-126); Anion Gap 13 mmol/L (4-12); Aspartate Amino Transferase 26 U/L (14-36); Bilirubin,Total 0.3 mg/dL (0.2-1.3); Blood Urea Nitrogen 18 mg/dL (7-17); Carbon Dioxide 28 mmol/L (22-30); Chloride 98 mmol/L (98-107); Estimated Glomerular Filt Rate > 60; Glucose 156 mg/dL (65-110); Sodium 139 mmol/L (137-145)
[2024-05-01 12:19] LABS: CA 19-9 50 U/mL (<34)
== END 2024-04-30 09:07 | disposition home or self-care (01) ==
LOC: ANHIMG 09:10
PROVIDERS: PCP Family Medicine; Visit Provider Internal Medicine Hematology & Oncology
DX: C24.1 Malignant neoplasm of ampulla of Vater (principal)
CPT/HCPCS: 36415; 36591; 80053; 85025; 86301

== ENCOUNTER 2024-05-04 08:28 | Outpatient (CLI) | payer MEDICARE, MEDICAID, SELFPAY ==
--- NOTE | ~2024-05-04 | CT_ITS ---
Clinical Indication: Ampullary carcinoma CT Scan of the Chest, Abdomen, and Pelvis with Contrast: Technique: Contiguous sections were acquired throughout the chest, abdomen, and pelvis after intraven ous administration of 100 cc of Omnipaque 350. Dose reduction technique was used on this scan by lottie menjivar automated exposure control and iterative reconstruction technique. The dose-length product (DL P) was 579.57 mGy-cm. Comparison: 02/19/2024 Findings: There is no evidence of any significant mediastinal, hilar or axillary lymphadenopathy. The mediastin al soft tissues appear normal. There is no evidence of pleural or pericardial effusion. There is discoid atelectasis or scarring right lower lobe. Stable 6 mm left basilar pulmonary nodule. Stable large right hepatic lobe cysts. Stable hypodense mass in the left hepatic lobe measuring 3.4 x 2.0 cm. Cholecystectomy clips are present. The spleen, pancreas, adrenals and kidneys are within nor mal limits. There are atherosclerotic calcifications of the aorta. No lymphadenopathy. Large ventral hernia contains multiple small bowel loops, mesenteric fat, small portion of the transv erse colon. This is similar to prior exam. No bowel obstruction or bowel wall thickening. Urinary bladder is unremarkable. No pelvic mass seen. Status post hysterectomy. No ascites. Impression: Stable 3.4 x 2.0 cm hypodense solid mass in the left hepatic lobe, compatible with metastatic lesion. Stable large ventral hernia containing small and large bowel and mesenteric fat. No bowel obstruction or bowel wall thickening. Stable 6 mm left basilar pulmonary nodule. Reviewed, dictated and finalized at [facility]. Impression: Stable 3.4 x 2.0 cm hypodense solid mass in the left hepatic lobe, compatible w ith metastatic lesion. Stable large ventral hernia containing small and large bowel and mesenteric fat . No bowel obstruction or bowel wall thickening. Stable 6 mm left basilar pulmonary nodule.
== END 2024-05-04 08:29 | disposition home or self-care (01) ==
LOC: ANHIMG 08:31
PROVIDERS: PCP Family Medicine; Visit Provider Internal Medicine Hematology & Oncology
DX: C24.1 Malignant neoplasm of ampulla of Vater (principal); R91.1 Solitary pulmonary nodule; K43.9 Ventral hernia without obstruction or gangrene
CPT/HCPCS: 71260; 74177; Q9967

== ENCOUNTER 2024-08-10 07:41 | Outpatient (CLI) | payer MEDICARE, SELFPAY ==
--- NOTE | ~2024-08-10 | CT_ITS ---
EXAMINATION: CT chest abdomen pelvis w con DATE: 08/10/2024 09:21 INDICATION: Ampullary carcinoma. TECHNIQUE: Computed tomography (CT) of the chest, abdomen, and pelvis was performed with 100 mL Omnip aque 350 intravenous contrast. Automated exposure control and iterative reconstruction technique were employed. The dose-length product was 460.76 mGy-cm. COMPARISON: CT 05/04/2024, 07/17/22 FINDINGS: CHEST CT: The lungs demonstrate mild atelectasis. There is a 6 mm nodule in left lower lobe, stable from 2, likely benign. No pleural effusion. There is a right internal jugular port with tip at superior ca voatrial junction. The heart size is normal. No pericardial effusion. There are no pathologically enl arged lymph nodes. There is mild thoracic spondylosis. There are changes of anterior fusion procedure in cervical spine. ABDOMEN/PELVIS CT: There are cysts in the liver measuring up to 7.4 cm. There is a 3.7 x 2.0 cm mass in segment II of th e liver that previously measured 3.8 x 1.9 cm. There is new expansile thrombosis of the adjacent port al veins in segment II. Pneumobilia is noted, likely secondary to sphincterotomy. There are changes o f Whipple procedure. There is an 11 mm cyst in the spleen. There is a chronic 5 mm cyst in the pancre as. The adrenal glands, and kidneys are normal. There are no dilated loops of bowel. The appendix is normal. There are no pathologically enlarged lymph nodes. There is no free intraperitoneal fluid. The re is scarring in anterior abdominal wall. There is severe lumbar spondylosis. IMPRESSION: 1. Stable mass in segment II of liver, consistent with metastatic disease. New expansile thrombus of the feeding portal veins in segment II, which may be bland thrombus or tumor thrombus. Reviewed, dictated and finalized at location A. 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 Stable mass in segment II of liver, consistent with metastatic disease. New expansile thrombus of the feeding portal veins in segment II, which may be blan d thrombus or tumor thrombus.
[2024-08-10 08:56] LABS: Basophils Percent Auto 0.3 % (0.2-1.2); Hematocrit 39.3 % (37.0-47.0); Hemoglobin 12.9 g/dL (12.0-15.0); Immature Granulocyte Absolute 0.05 K/mm3 (0.00-0.031); Immature Granulocyte Percent A 0.8 % (0-0.5); Lymphocytes Absolute Auto 1.05 K/mm3 (0.9-3.2); Lymphocytes Percent Auto 17.2 % (18.3-44.2); Mean Corpuscular HGB Conc 32.8 g/dl (32-36); Mean Corpuscular Hemoglobin 27.2 pg (26-34); Mean Corpuscular Volume 82.7 fl (80-100); Mean Platelet Volume 9.2 fl (7.4-10.4); Monocytes Absolute Auto 0.1 K/mm3 (0.1-0.6); Neutrophils Absolute Auto 4.9 K/mm3 (1.3-6.7); Neutrophils Percent Auto 80.7 % (45.5-73.1); Platelet Count Result 271 k/mm3 (150-375); Red Blood Count 4.75 M/mm3 (4.2-5.4); Red Cell Distribution Width 13.6 % (11.5-14.5); White Blood Count 6.1 K/mm3 (4.5-10.0)
[2024-08-10 09:14] LABS: Alanine Aminotransferase 21 U/L (6-35); Alkaline Phosphatase 78 U/L (38-126); Anion Gap 9 mmol/L (4-12); Aspartate Amino Transferase 25 U/L (14-36); Bilirubin,Total 0.5 mg/dL (0.2-1.3); Blood Urea Nitrogen 12 mg/dL (7-17); Calcium 9.9 mg/dL (8.4-10.2); Carbon Dioxide 30 mmol/L (22-30); Chloride 99 mmol/L (98-107); Cholesterol 172 mg/dL (0-200); Estimated Glomerular Filt Rate > 60; Glucose 166 mg/dL (65-110); HDL Direct 53 mg/dL; Sodium 138 mmol/L (137-145); Triglycerides 89 mg/dL (<150)
[2024-08-10 09:16] LABS: Estimated Glomerular Filt Rate > 60
[2024-08-10 09:26] LABS: LDL Cholesterol Direct 82 mg/dL
[2024-08-10 09:39] LABS: Thyroid Stimulating Hormone 0.625 uIU/mL (0.465-4.680)
[2024-08-10 09:42] LABS: Creatinine Urine 251.3 mg/dL
[2024-08-10 10:01] LABS: Vitamin D 25 Hydroxy 17.3 ng/mL
[2024-08-10 10:20] LABS: Hemoglobin A1C 6.1 % (<5.7)
[2024-08-10 10:54] LABS: MALB Creatinine Ratio 327.9 mg/g (0-30); Microalbumin Urine Random 823.9 mg/L (0-16.7)
[2024-08-11 07:13] LABS: CA 19-9 33 U/mL (<34)
--- OUTSIDE RECORDS SUMMARY | 2024-08-17 08:45 | XMS_ITS ---
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 Past Plans No past plan information found. Radiation Treatments * No radiation treatments are documented for this patient in [facility]. Treatments may have been administered in another system. Lifetime Dose Tracking * Chemical Lifetime Dose Automatic Entry Manual Entr y Fluoro Time 0.179 minutes 0.179 minutes 0 minutes Air kerma at the reference point (Ka,r) 3.906 mGy 3 .906 mGy 0 mGy DLP 237 mGycm 237 mGycm 0 mGycm
--- OUTSIDE RECORDS SUMMARY | 2024-08-17 08:45 | XMS_ITS | Clinical Summary ---
Author Organization [facility] Address [address] [place] [address] Care Team Providers Care Furnace Firer Name Role Phone Sabino Luke MD Unavailable [phone] Kathya Orona DO Primary Care Provider [phone] Allergies Active Allergy Reactions Criticality Noted Date Comments Amoxicillin Itching Low 06/02/2018 Iodinated Contrast Media Itching Medium 06/23/2018 Kiwi Itching Low 06/23/2018 Macrolide Antibiotics Itching Low 06/02/2018 Naproxen Sodium Itching Low 06/02/2018 Nitrofurantoin Itching Low 04/21/2013 Itching Penicillins Itching Low 06/02/2018 Sulfadiazine Dizziness Low 06/02/2018 Medications Alcohol Prep Pads pads, medicated 4 Active Accu-Chek Guide test strips strip 4 Active Accu-Chek Softclix Lancets lancets 4 Active oxygenIndicatio ns:Dyspnea Administer 2 L/min into each nostril as needed (SOB) Active ALPRAZolam (XANAX) 0.5 mg tablet Take 1 tablet (0.5 mg total) by mouth 3 (three) times a day as needed for anxiety 10 tablet 4 Active budesonide-form oteroL (SYMBICORT) 160-4.5 mcg/actuation inhalerIndicati ons:Acute Asthma Attack Inhale 2 puffs 2 (two) times a day as needed (SOB) Rinse mouth with water after use. Do not swallow. 1 each 4 Active ciclesonide (Alvesco) 80 mcg/actuation inhalerIndicati ons:Maintenance Therapy for Asthma Inhale 1 puff 2 (two) times a day as needed (SOB) Rinse mouth with water after use. Do not swallow. 6.1 g 11 4 Active dicyclomine (BENTYL) 20 mg tabletIndicatio ns:Abdominal Pain with Cramps Take 1 tablet (20 mg total) by mouth 2 (two) times a day 60 tablet 4 Active Farxiga 10 mg tabletIndicatio ns:type 2 diabetes mellitus Take 1 tablet (10 mg total) by mouth band saw marker before breakfast 30 tablet 4 Active fluticasone propionate (FLONASE) 50 mcg/actuation nasal sprayIndication s:Allergic Rhinitis Administer 1 spray into each nostril daily as needed for allergies 1 each 4 Active hydrOXYzine (ATARAX) 25 mg tablet Take 1 tablet (25 mg total) by mouth every 6 (six) hours as needed for itching 30 tablet 4 Active metFORMIN (GLUCOPHAGE) 500 mg tabletIndicatio ns:type 2 diabetes mellitus Take 1 tablet (500 mg total) by mouth 2 (two) times a day with meals 60 tablet 4 Active albuterol HFA (PROVENTIL HFA,VENTOLIN HFA,PROAIR HFA) 90 mcg/actuation inhalerIndicati ons:Acute Asthma Attack Inhale 2 puffs every 6 (six) hours as needed for wheezing 1 each 4 Active amLODIPine (NORVASC) 10 mg tabletIndicatio ns:hypertension Take 1 tablet (10 mg total) by mouth band saw marker before breakfast 30 tablet 4 Active cyclobenzaprine (FLEXERIL) 10 mg tabletIndicatio ns:Muscle Spasm Take 1 tablet (10 mg total) by mouth 2 (two) times a day as needed for muscle spasms 30 tablet 4 Active hydroCHLOROthia zide (HYDRODIURIL) 25 mg tabletIndicatio ns:hypertension Take 1 tablet (25 mg total) by mouth band saw marker before breakfast 30 tablet 4 Active sertraline (ZOLOFT) 50 mg tabletIndicatio ns:Anxiety with Depression Take 1 tablet (50 mg total) by mouth nightly 30 tablet 4 Active simvastatin (ZOCOR) 20 mg tabletIndicatio ns:hyperlipidem ia Take 1 tablet (20 mg total) by mouth nightly 30 tablet 4 Active acetaminophen (TYLENOL) 500 mg tabletIndicatio ns:Pain Take 2 tablets (1,000 mg total) by mouth every 6 (six) hours as needed for pain 30 tablet 4 Active docusate sodium (COLACE) 100 mg capsuleIndicati ons:constipatio n Take 1 capsule (100 mg total) by mouth 2 (two) times a day 30 capsule 4 Active Active Problems Problem Noted Date Diagnosed Date Incisional hernia of anterio r abdominal wall without obstruction or gangrene 05/11/2024 Incarcerated incisional hernia 02/03/2024 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 Chronic obstructive pulmonar y disease, unspecified COPD type 01/21/2024 Spinal stenosis of lumbar re gion without neurogenic claudication 12/25/2022 Left lumbar radiculitis 12/25/2022 Encounters Date Type Department Care Team Description 07/03/2024 10:15 AM SLED MAKER Office Visit [place] [place] [facility] - [facility] Minimally Invasive Surgery [address], [place] [address] Sabino Luke MD History of incisional hernia repair (Primary Dx) 07/03/2024 Telephone [facility] - [facility] Minimally Invasive Surgery [address], [place] [address] Sabino Luke MD Medical Question/Miscellaneo us 06/26/2024 Telephone [facility]) - [facility] Minimally Invasive Surgery [address], [place] [address] Sabino Luke MD Medical Question/Miscellaneo us 05/27/2024 3:15 PM CDT Office Visit [facility] Minimally Invasive Surgery [address] [place] [address] Sabino Luke MD Postop check (Primary Dx); Incarcerated incisional hernia 05/11/2024 10:34 AM CDT - 05/19/2024 11:42 AM CDT Hospital Encounter [facility] [address] [place] [address] Sabino Luke MD Incarcerated incisional hernia [K43.0] (Primary Dx) Discharge Disposition: Discharge to SNF from Last 3 Months Immunizations Name Administration Dates Next Due Influenza, Trivalent, High D ose, Split, Preservative Free, Intramuscular 05/19/2024 Influenza, Unspecified 05/22/2017 Surgical History Surgery Date Site/Laterality Comments HYSTERECTOMY CERVICAL SPINE SURGERY SINUS SURGERY PANCREATICODUODENECTOMY 12/10/2021 - 01/09/2022 TUBAL LIGATION PORTACATH PLACEMENT Medical History Medical History Date Comments Anxiety Asthma Ear problems Depression Gastric reflux Hypertension Chronic kidney disease Lumbar stenosis Chronic cholecystitis Pancreatic cancer metastasized to liver (HCC) BETTY (obstructive sleep apnea) Family History Medical History Relation Name Comments Cancer Brother Cancer Father Relation Name Status Comments Brother Father Social History Tobacco Use Types Packs/Day Years Used Date Smoking Tobacco: Former Cigarettes 0.2 23 1 978 - 2001 Smokeless Tobacco: Never Tobacco Cessation:Counseling Given: Not Answered Alcohol Use Standard Drinks/Week Comments No 0 (1 standard drink = 0.6 oz pur e alcohol) AUDIT-C Answer Date Recorded Q1: How often do you have a drink containing alcohol? Never 04/16/2024 Q2: How many drinks containi ng alcohol do you have on a typical day when you are drinking? Patient does not drink Q3: How often do you have si x or more drinks on one occasion? Never 04/16/2024 Personal Safety Answer Date Recorded Have you ever been in or are you currently in a harmful physical or emotional relationship or is someone making you feel afraid or unsafe? Denies 05/11/2024 Comments No Sex and Gender Information Value Date Recorded Sex Assigned at Not on file Legal Sex Female 8:15 AM SLED MAKER Gender Identity Not on file Sexual Orientation Not on file Occupation Industry Job Start Date Job End Date Disability Not on file Not on file Not on file Obstetrics History Last Filed Vital Signs Vital Sign Reading Time Taken Comments Blood Pressure 130/86 07/03/2024 10:53 AM SLED MAKER Pulse 85 07/03/2024 10:53 AM SLED MAKER Temperature 36.6 ??C (97.9 ??F) 07/03/2024 10:[address] Respiratory Rate 16 07/03/2024 10:53 AM SLED MAKER Oxygen Saturation 97% 07/03/2024 10:53 AM SLED MAKER Inhaled Oxygen Concentration - - Weight 68.5 kg (151 lb) 07/03/2024 10:53 AM SLED MAKER Height 157.5 cm (5' 2 ) 07/03/2024 10:53 AM SLED MAKER Body Mass Index 27.62 07/03/2024 10:53 AM SLED MAKER Plan of Treatment Health Maintenance Due Date Last Done Comments Breast Cancer Screening-Mammogram 1953 Colon Cancer Screening-Colonoscopy 1955 Depression Screening 1953 Hepatitis C Screening 1953 Osteoporosis Screening-Bone Density Scan 1953 Pneumococcal vaccine 65+ (1 of 2 - PCV) 1959 DTaP/Tdap/Td Vaccine (1 - Tdap) 1964 Hepatitis B Screening 1971 Zoster Vaccine (1 of 2) 1972 Well Visit 65+ 2018 Covid-19 Vaccine (3 - Pfizer risk series) 12/12/2020 11/14/2020, 10/24/2020 Fall Risk Assessment 05/19/2025 05/19/2024, 06/23/2018, 06/02/2018 Influenza Vaccine Completed 05/19/2024, , 05/28/2018, Additional history exists Goals Goal Patient Goal Type Associated Problems Recent Progress Patient-Stated? Author Reduce the likelihood of falling Lifestyle Jeanne Pugh Note: Below are four things you can do to prevent falls: 1. Begin an exercise program to improve your leg strength & balance 2. Ask your doctor or pharmacist to review your medicines 3. Get annual eye check-ups & update your eyeglasses 4. Make your home safer by: ?? Removing clutter & tripping hazards ?? Putting railings on all stairs & adding grab bars in the bathroom ?? Having good lighting, especially on stairs Contact your local community or [facility] for information on exercise, fall prevention programs, or options for improving home safety. Medical Devices Implanted Type Area Director Of Materials Management Device Identifier Shelf Expiration Date Model / Serial / Lot [employer]/C R Bard [id number] Bard [id number] Monofilament Soft Lightweight Low Profile Square - [id number] - [id number] Implanted:Qty: 1 on 05/11/2024 by Sabino Luke MD at [facility] Mesh N/A: Abdomen [employer] Bard [id number] 11/06/2028 [id number] / [id number] / [id number] Procedures Procedure Name Priority Date/Time Associated Diagnosis Comments POCT GLUCOSE DEVICE Routine 05/19/2024 8:12 AM CDT POCT GLUCOSE DEVICE Routine 05/18/2024 8:00 PM CDT POCT GLUCOSE DEVICE Routine 05/18/2024 5:[address] CHEST PE W CONTRAST Timed 05/18/2024 4:15 PM CDT POCT GLUCOSE DEVICE Routine 05/18/2024 12:03 PM CDT POCT GLUCOSE DEVICE Routine 05/18/2024 8:01 AM CDT PEP THERAPY Routine 05/17/2024 10:00 PM CDT POCT GLUCOSE DEVICE Routine 05/17/2024 8:16 PM CDT PEP THERAPY Routine 05/17/2024 6:00 PM CDT POCT GLUCOSE DEVICE Routine 05/17/2024 5:30 PM CDT PEP THERAPY Routine 05/17/2024 1:00 PM CDT POCT GLUCOSE DEVICE Routine 05/17/2024 11:28 AM CDT ECG 12-LEAD Routine 05/17/2024 9:50 AM CDT XR CHEST 1 VIEW IP Routine 05/17/2024 9:14 AM CDT PEP THERAPY Routine 05/17/2024 8:00 AM CDT POCT GLUCOSE DEVICE Routine 05/17/2024 7:48 AM CDT from Last 3 Months Results * POCT glucose (05/19/2024 8:12 AM CDT) Glucose, POC 137 70 - 199 mg/dL Blood 05/19/2024 8:12 AM CDT 05/19/2024 8:12 AM CDT Sabino Luke MD LAB POCT ORDERABLES - DE VICE Final Result Performing Organization Address [facility] Co de Phone Number [facility] [place] [address] * POCT glucose (05/18/2024 8:00 PM CDT) Glucose, POC 192 70 - 199 mg/dL Blood 05/18/2024 8:00 PM CDT 05/18/2024 8:00 PM CDT Sabino Luke MD LAB POCT ORDERABLES - DE VICE Final Result Performing Organization Address City/[facility]/ZIP Co de Phone Number [facility] [place] [address] * POCT glucose (05/18/2024 5:06 PM CDT) Glucose, POC 177 70 - 199 mg/dL Blood 05/18/2024 5:06 PM CDT 05/18/2024 5:06 PM CDT us Sabino Luke MD LAB POCT ORDERABLES - DE VICE Final Result [facility] Department [place] [address] * CT Chest PE (CTA) W Contrast (05/18/2024 4:15 PM CDT) Anatomical Region Laterality Modality Body N/A Computed Tomogra phy 05/18/2024 5:00 PM CDT Impressions 05/18/2024 5:00 PM CDT 1. ??No pulmonary embolism. 2. ??Interval volume loss in the right lower and middle lobes, most consistent with atelectasis. ??Exclusion of underlying pneumonia is difficult given the early phase of contrast. Electronically signed by: William Wyatt M.D. Narrative 05/18/2024 5:00 PM CDT EXAMINATION: CT CHEST PE (CTA) W CONTRAST HISTORY: Suspected pulmonary embolism TECHNIQUE: Computed tomographic images were acquired using a chest angiographic protocol optimized for pulmonary embolism. ??Contrast enhanced transaxial images were obtained following the intravenous administration of 93 ml of nonionic contrast. ??Multiplanar reformatted images and three-dimensional images were obtained on the 3-D workstation and sent to the PACS archival system. ?? COMPARISON: 02/19/2024 FINDINGS: There is no pulmonary embolism. ??The heart is mildly enlarged. ??The thoracic aorta is normal in size. ??There is mild enlargement of the pulmonary arteries. There is no thoracic lymphadenopathy. ??A right internal jugular port catheter terminates at superior cavoatrial junction. There is new consolidation/collapse of the right posterior lower lobe. Given the uniform enhancement on the arterial phase within the collapsed lung, this is favored to represent passive atelectasis. There is mild dilation of the involved airways without filling defects centrally. No new pulmonary nodules are identified. ??Large, hypoattenuating/enhancing lesions in the liver are partially evaluated but grossly unchanged from prior exam. ??There is unchanged diaphragmatic eventration with upward protrusion of the liver on the lower right thorax. No acute or suspicious osseous findings. CT imaging evidence of right heart strain: No Procedure Note William Wyatt MD - 05/18/2024 EXAMINATION: CT CHEST PE (CTA) W CONTRAST HISTORY: Suspected pulmonary embolism TECHNIQUE: Computed tomographic images were acquired using a chest angiographic protocol optimized for pulmonary embolism. Contrast enhanced transaxial images were obtained following the intravenous administration of 93 ml of nonionic contrast. Multiplanar reformatted images and three-dimensional images were obtained on the 3-D workstation and sent to the PACS archival system. COMPARISON: 02/19/2024 FINDINGS: There is no pulmonary embolism. The heart is mildly enlarged. The thoracic aorta is normal in size. There is mild enlargement of the pulmonary arteries. There is no thoracic lymphadenopathy. A right internal jugular port catheter terminates at superior cavoatrial junction. There is new consolidation/collapse of the right posterior lower lobe. Given the uniform enhancement on the arterial phase within the collapsed lung, this is favored to represent passive atelectasis. There is mild dilation of the involved airways without filling defects centrally. No new pulmonary nodules are identified. Large, hypoattenuating/enhancing lesions in the liver are partially evaluated but grossly unchanged from prior exam. There is unchanged diaphragmatic eventration with upward protrusion of the liver on the lower right thorax. No acute or suspicious osseous findings. CT imaging evidence of right heart strain: No IMPRESSION: 1. No pulmonary embolism. 2. Interval volume loss in the right lower and middle lobes, most consistent with atelectasis. Exclusion of underlying pneumonia is difficult given the early phase of contrast. Electronically signed by: William Wyatt M.D. Hope Brito BONE PULLER IMG CT PROCEDURES Final Result * POCT glucose (05/18/2024 12:03 PM CDT) Glucose, POC 149 70 - 199 mg/dL Blood 05/18/2024 12:0 3 PM CDT 05/18/2024 12:03 PM CDT Sabino Luke MD LAB POCT ORDERABLES - [place] [address] * POCT glucose (05/18/2024 8:01 AM CDT) Glucose, POC 134 70 - 199 mg/dL Blood 05/18/2024 8:01 AM CDT 05/18/2024 8:01 AM CDT Sabino Luke MD LAB POCT ORDERABLES - DE VICE Final Result Performing Organization Address City/[facility] [place] [address] * POCT glucose (05/17/2024 8:16 PM CDT) Glucose, POC 131 70 - 199 mg/dL Blood 05/17/2024 8:16 PM CDT 05/17/2024 8:16 PM CDT Sabino Luke MD LAB POCT ORDERABLES - DE VICE Final Result Performing Organization Address City/[facility]/[place] [address] * POCT glucose (05/17/2024 5:30 PM CDT) Glucose, POC 174 70 - 199 mg/dL Blood 05/17/2024 5:30 PM CDT 05/17/2024 5:30 PM CDT Sabino Luke MD LAB POCT ORDERABLES - DE VICE Final Result Performing Organization Address City/[facility]/[place] [address] * POCT glucose (05/17/2024 11:28 AM CDT) Glucose, POC 149 70 - 199 mg/dL Blood 05/17/2024 11:2 8 AM CDT 05/17/2024 11:28 AM CDT Sabino Luke MD LAB POCT ORDERABLES - DE VICE Final Result Performing Organization Address [facility] Co de Phone Number [facility] Department [place] [address] * ECG 12 lead (05/17/2024 9:50 AM CDT) Pathologist [facility] Ventricular Rate EKG/Min [address] [facility] Atrial Rate 113 BPM [facility] DC-Interval (MSEC) 138 ms [facility] QRS-Interval (MSEC) 82 ms [facility] QT-Interval (MSEC) 334 ms [facility] QTc 458 ms [facility] P [place] 33 degrees [facility] R [place] -3 degrees [facility] T [place] 80 degrees [facility] Diagnosis Sinus tachycardia Minimal voltage criteria for LVH, may be normal variant Nonspecific T wave abnormality Abnormal ECG No previous ECGs available Confirmed by ALIREZA COX M.D ([id number]) on 05/19/2024 9:25:15 AM [facility] 05/17/2024 9:50 AM CDT 05/19/2024 9:25 AM CDT Sabino Luke MD ECG ORDERABLES Final Re sult Performing Organization Address [facility] Co de Phone Number [facility] * XR Chest 1 View (05/17/2024 9:14 AM CDT) Anatomical Region Laterality Modality Body, Chest N/A Computed Radiogr aphy 05/17/2024 11:3 1 AM CDT Impressions 05/17/2024 11:31 AM CDT Comparison 05/13/2024. ??Right internal jugular port catheter in place with tip overlying superior vena cava. Lung volumes are small. ??Mild bibasilar atelectasis again noted. ??No focal consolidation or pulmonary edema seen. There may be a small right basilar pleural effusion, unchanged. ??No pneumothorax seen. ??Cardiomediastinal silhouette stable. Electronically signed by: William Draper M.D. Narrative 05/17/2024 11:31 AM CDT EXAMINATION: 1 view chest radiograph Procedure Note William Draper MD - 05/17/2024 EXAMINATION: 1 view chest radiograph IMPRESSION: Comparison 05/13/2024. Right internal jugular port catheter in place with tip overlying superior vena cava. Lung volumes are small. Mild bibasilar atelectasis again noted. No focal consolidation or pulmonary edema seen. There may be a small right basilar pleural effusion, unchanged. No pneumothorax seen. Cardiomediastinal silhouette stable. Electronically signed by: William Draper M.D. Sabino Luke MD IMG XR PROCEDURES Final Result * POCT glucose (05/17/2024 7:48 AM CDT) Glucose, POC 140 70 - 199 mg/dL Blood 05/17/2024 7:48 AM CDT 05/17/2024 7:48 AM CDT Sabino Luke MD LAB POCT ORDERABLES - DE VICE Final Result [facility] Department [place] [address] from Last 3 Months Insurance MEDICARE SOLUTIONS MEDICARE SOLUTIONS IDPA MEDICARE SOLUTIONS IDPA Advance Directives For more information, please contact: [phone] * Full Code (Latest Code Status on File) Date Activated Date Inactivated Comments 05/11/2024 8:24 PM 05/19/2024 3:53 PM Care Teams Furnace Firer Relationship Specialty Start Date End Date Kathya Orona DO [facility] [place] [address] [address] PCP - General Family Medicine 05/12/24 Sabino Luke MD [address] [place] [address] Referring Physician General Surgery 12/06/23
--- OUTSIDE RECORDS SUMMARY | 2024-08-17 08:45 | XMS_ITS | Data Portability ---
Author Organization [facility] [employer], Main Office Address [address] [place] [address] Assessment No assessment recorded. Plan of Treatment Reminders Order Date Submit Date Provider Last Modified By Organization Details Last Modified Time Details Appointments None recorded. 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 Surgeries None recorded. Imaging XR, lumbosacral spine, 2 or 3 view 2022 023 [facility] ([facility]), [address], [place], [address], 3 07:23:32 Medication Orders cyclobenzap rine 10 mg tablet 2022 023 [facility], [address] , [place], [address], 3 15:13:53 metformin ER 500 mg 24 hr tablet,exte nded release (gastric retention) 2022 023 [email or web address] [facility], [address], [place], [address], 3 10:42:15 metformin ER 500 mg 24 hr tablet,exte nded release (gastric retention) 2022 023 [email or web address] [facility], [address], [place], [address], 3 10:42:15 Januvia 100 mg tablet 2022 023 [email or web address] [facility] [address] [facility], [address] [facility], [place], [address], 3 17:01:13 Patient TargetsNo targets recorded. 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 for Chronic urticaria Referring Physician: [facility], Encounter Date: 03/19/2023 Results Created Date Observation Date Name Description Value Unit Range Abnormal Flag Note LastModifiedBy Organization Detail LastModifiedTime 04/01/2004/01/2023 hemog lobin A1C, skip rsluciano k HgbA1C 14 Not Available [address] [place], [place], [address], 04/01/2023 12:27:07 07/17/20 23 07/17/2023 hemog lobin A1C, skip noriega k HgbA1C 7.3% Not Available [address] [place] [address], [place], [address], 07/17/2023 11:45:37 12/12/19 23 12/10/2022 XR, lumbo sacra l spine , 2 or 3 view No observ ation record ed. [address] [address], [place], [address], 12/11/2022 10:23:16 12/16/19 23 12/15/2022 MRI, lumba r spine , w/o contr ast No observ ation record ed. [address] [address], [place], [address], 12/17/2022 09:06:14 12/20/19 23 12/18/2022 CT, abdom en + pelvi s, w/o contr ast No observ ation record ed. [address] [address], [place], [address], 12/19/2022 09:06:54 02/09/20 23 02/08/2023 imagi ng/di agnos tic resul t No observ ation record ed. [address] [address], [place], [address], 02/11/2023 08:33:36 05/10/20 23 05/10/2023 CT, abdom en + pelvi s, w/ contr ast No observ ation record ed. [address] [address], [place], [address], 05/14/2023 09:26:03 05/28/20 23 05/28/2023 PET, skull base to mid-t high No observ ation record ed. [address] [address], [place], [address], 05/29/2023 12:47:13 07/23/20 23 07/23/2023 MRI, abdom en, w/o contr ast No observ ation record ed. [address] [address], [place], [address], 08/21/2023 16:04:02 08/19/19 24 08/19/2023 CT, abdom en + pelvi s, w/ contr ast No observ ation record ed. [address] [address], [place], [address], 08/21/2023 16:04:03 09/06/19 24 09/06/2023 MRI, brain + brain stem, w/wo contr ast No observ ation record ed. [address] [address], [place], [address], 09/10/2023 12:14:57 11/19/19 24 11/19/2023 PET, brain scan, metab olic evalu ation No observ ation record ed. [address] [address], [place], [address], 11/21/2023 10:45:08 Result Notes None recorded. Problems Name Problem SNOMED Code Status Onset Date Resolution Date Notes Provider Name and Address Organization Details Recorded Time Acute sinusitis 36701986 Active Not Available [facility] 3 16:21:40 Anxiety disorder 327627881 Active Not Available [facility] 3 16:21:40 Allergic contact dermatitis 909224215 Active Not Available [facility] 3 16:21:40 Eruption 376573001 Active Not Available [facility] 3 16:21:40 Low back pain 814403312 Active Not Available [facility] 3 16:21:40 Numbness of lower limb 737805463 Active Not Available [facility] 3 16:21:40 Depressive disorder 47536687 Active Not Available [facility] 3 16:21:40 Arthritis 6724946 Active Not Available [facility] 3 16:21:40 Hypertensive disorder 56555327 Active Not Available [facility] 3 16:21:40 Neuropathy 726930873 Active Not Available [facility] 3 16:21:40 Anxiety 39951696 Active Not Available [facility] 3 16:21:40 Hyperlipidemi a 12423667 Active Not Available [facility] 3 16:21:41 Allergic rhinitis 92747223 Active Not Available [facility] 3 16:21:41 Diarrhea 51282101 Active 2021 Not Available [facility] 3 16:21:41 Costal chondritis 91760590 Active 2016 Not Available [facility] 3 16:21:41 Spinal stenosis in cervical region 22451390 Active Not Available [facility] 3 16:21:41 Edema of lower extremity 300799632 Active 2022 Not Available [facility] 3 16:21:40 Ventral incisional hernia 814482235 Active 2022 Not Available [facility] 3 16:21:40 Spinal stenosis of lumbar region 24460393 Active 2022 Not Available [facility] 3 16:21:40 Umbilical hernia 280475526 Active 2022 Not Available [facility] 3 16:21:40 Chronic urticaria 86761012 Active 2022 Not Available [facility] 3 16:21:41 Uncontrolled type 2 diabetes mellitus 154457600 Active 2022 Not Available [facility] 3 16:21:40 Essential hypertension 58181981 Active 2022 Not Available [facility] 3 16:21:41 COVID-19 926669625 Active 2022 Nancy Ashford MD [address] [facility], [facility] [address], [place], [address] , [facility] [employer] [facility] [employer] 3 11:37:11 Type 2 diabetes mellitus 02739419 Active 2023 TRAVIS Samano [address] [facility], [facility] [address], [place], [address] , [employer] [facility] [employer] 4 11:23:31 Notes:Some problems listed i n Documents: #[id number], #[id number] could not be added to this patient's chart. Please review these documents and add these problems to the patient's chart manually as needed. Problem Notes None recorded. Procedures Surgical History None recorded. Imaging Results Imaging Date Name Status LastModified by Organiz ation Details LastModified Time 12/10/2022 XR, lumbosacral spine, 2 or 3 view [address], [address], 12/11/2022 10:23:16 12/15/2022 MRI, lumbar spine, w/o contrast completed [address], [address], 12/17/2022 09:06:14 12/18/2022 CT, abdomen + pelvis, w/o contrast completed [address], [address], 12/19/2022 09:06:54 02/08/2023 imaging/diagnos tic result completed [address], [address], 02/11/2023 08:33:36 05/10/2023 CT, abdomen + pelvis, w/ contrast completed [address], [address], 05/14/2023 09:26:03 05/28/2023 PET, skull base to mid-thigh completed [address], [address], 05/29/2023 12:47:13 07/23/2023 MRI, abdomen, w/o contrast completed [address], [address], 08/21/2023 16:04:02 08/19/2023 CT, abdomen + pelvis, w/ contrast completed [address], [address], 08/21/2023 16:04:03 09/06/2023 MRI, brain + brain stem, w/wo contrast completed [address], [address], 09/10/2023 12:14:57 11/19/2023 PET, brain scan, metabolic evaluation completed [address], [address], 11/21/2023 10:45:08 Procedure Notes None recorded. Medical Equipment None Reported. Allergies Allergen ID Allergen Name Allergen Category Reaction Reaction Severity Criticality Documentation Date Start Date Code Code System Note Provider Name and Address Organization Details Recorded Time 33567 Substance with sulfonami de structure and antibacte rial mechanism of action (substanc e) medicatio n vasculiti s moderate Not available 10/10/2022 15959 8003 SNOMED Not Available [facility] 3 08:53:14 79376 Medicinal product containin g penicilli n and acting as antibacte rial agent (product) medicatio n Not available Not available Not available 10/10/2022 55870 05 SNOMED Not Available [facility] 3 08:53:14 04855 erythromy rae medicatio n Not available Not available Not available 10/10/2022 4053 RxNorm Not Available [facility] 3 08:53:14 25447 amoxicill in medicatio n Not available Not available Not available 10/10/2022 723 RxNorm Not Available [facility] 3 08:53:14 Medications Name Sig Start Date Stop Date Status Note LastModified by Organization Details LastModified Time accu-chek guide w/device kit active Not Available Not Available Not Available tetracycl ine 500 mg capsule 11/16 completed Not Available Not Available Not Available cyclobenz aprine 10 mg tablet TAKE 1 TABLET BY MOUTH ONCE DAILY active Not Available Not Available No t Available fluconazo le 100 mg tablet 11/16 completed Not Available Not Available Not Available metformin 500 mg tablet active Not Available Not Available Not Available Xanax 0.5 mg tablet Take 1 tablet 3 times a day by oral route. active Not Available Not Available No t Available prednison e 10 mg tablet 4 tabs daily x 3 days , 3 tabs daily x 3 days than 2 tabs daily x 3 days then 1 tab daily x 3 days then d/c. 07/17 completed Not Available Not Available Not Available doxycycli ne hyclate 100 mg capsule TAKE 1 CAPSULE BY MOUTH TWICE A DAY 07/17 completed Not Available Not Available Not Available ibuprofen 800 mg tablet TAKE ONE TABLET BY MOUTH THREE TIMES A DAY NEEDED 07/17 completed Not Available Not Available Not Available alprazola m 1 mg tablet TAKE 1 TABLET BY MOUTH 3 TIMES DAILY NEEDED active Not Available Not Available No t Available ofloxacin 0.3 % eye drops 11/16 completed Not Available Not Available Not Available benzonata te 200 mg capsule TAKE 1 CAPSULE BY MOUTH THREE TIMES A DAY NEEDED 04/07 completed Not Available Not Available Not Available hydrocodo ne 5 mg-acetam inophen 325 mg tablet 11/07 completed Not Available Not Available Not Available ondansetr on HCl 8 mg tablet TAKE 1 TABLET BY MOUTH EVERY 6 HOURS NEEDED FOR NAUSEA 11/16 completed Not Available Not Available Not Available meloxicam 15 mg tablet TAKE 1 TABLET BY MOUTH EVERY DAY active Not Available Not Available No t Available ondansetr on HCl 4 mg tablet TAKE 1 TABLET BY MOUTH EVERY 8 HOURS NEEDED FOR NAUSEA AND VOMITING 11/16 completed Not Available Not Available Not Available methylpre dnisolone 32 mg tablet TAKE 1 TABLET BY MOUTH 12 HOURS PRIOR TO SCAN, THEN TAKE 1 TABLET 2 HOURS PRIOR TO SCAN 12/10 completed Not Available Not Available Not Available prednison e 20 mg tablet TAKE 2 TABLETS BY MOUTH DAILY FOR 5 DAYS 04/07 completed Not Available Not Available Not Available Accu-Chek Softclix Lancets USE DIRECTED . TEST ONCE DAILY active Not Available Not Available No t Available metronida zole 500 mg tablet 07/17 completed Not Available Not Available Not Available amlodipin e 5 mg tablet TAKE 1 TABLET BY MOUTH DAILY 04/25 completed Not Available Not Available Not Available prochlorp erazine maleate 10 mg tablet TAKE 1 TABLET BY MOUTH EVERY 6 HOURS NEEDED FOR NAUSEA/E MESIS 11/16 completed Not Available Not Available Not Available ciproflox acin 500 mg tablet Take 1 tablet every 12 hours by oral route for 7 days. active Not Available Not Available No t Available sulfameth oxazole 800 mg-trimet hoprim 160 mg tablet Take 1 tablet every 12 hours by oral route for 7 days. 01/03 completed Not Available Not Available Not Available hydrocodo ne 10 mg-acetam inophen 325 mg tablet TAKE 1 TABLET BY MOUTH EVERY 6 HOURS NEEDED FOR MODERATE PAIN MAX DAILY AMOUNT OF 4 TABLETS 11/16 completed Not Available Not Available Not Available omeprazol e 40 mg capsule,d elayed release TAKE 1 CAPSULE BY MOUTH DAILY active Not Available Not Available No t Available tramadol 50 mg tablet 11/07 completed Not Available Not Available Not Available quinapril 40 mg tablet TAKE 2 TABLETS BY MOUTH ONCE DAILY 12/10 completed Not Available Not Available Not Available ondansetr on 8 mg disintegr ating tablet PLEASE SEE ATTACHED FOR DETAILED DIRECTIO NS 11/16 completed Not Available Not Available Not Available Lipitor 20 mg tablet Take 1 tablet every day by oral route. 02/27 completed Not Available Not Available Not Available Depo-Medr ol 80 mg/mL suspensio n for injection active [facility]#[phone] Not Available Not Available Not Available potassium chloride ER 20 mEq tablet,ex tended release(p art/cryst ) TAKE 1 TABLET BY MOUTH DAILY active Not Available Not Available No t Available amlodipin e 10 mg tablet TAKE 1 TABLET BY MOUTH DAILY active Not Available Not Available No t Available cephalexi n 500 mg capsule 06/08 completed Not Available Not Available Not Available pantopraz ole 40 mg tablet,de layed release TAKE 1 TABLET BY MOUTH AT BEDTIME FOR 4 WEEKS 11/16 completed Not Available Not Available Not Available simvastat in 20 mg tablet TAKE 1 TABLET BY MOUTH DAILY active Not Available Not Available No t Available erythromy rae 5 mg/gram (0.5 %) eye ointment 11/07 completed Not Available Not Available Not Available prednison e 50 mg tablet TAKE 1 TABLET BY MOUTH 12 HOURS BEFORE TEST, 6 HOURS BEFORE TEST, AND 1 HOUR BEFORE TEST. 10/15 completed Not Available Not Available Not Available monteluka st 10 mg tablet active Not Available Not Available Not Available hydrochlo rothiazid e 25 mg tablet TAKE 1 AND 1/2 TABLETS BY MOUTH DAILY active Not Available Not Available No t Available Cheratuss in AC 10 mg-100 mg/5 mL oral liquid Take 10 mL every 4 hours by oral route as needed. 11/07 completed Not Available Not Available Not Available methylpre dnisolone 4 mg tablets in a dose pack 11/07 completed Not Available Not Available Not Available albuterol sulfate HFA 90 mcg/actua tion aerosol inhaler Inhale 2 puffs every 4 hours by inhalati on route as needed. active Not Available Not Available No t Available Zoloft 25 mg tablet Take 1 tablet every day by oral route. active Not Available Not Available No t Available ondansetr on 4 mg disintegr ating tablet PLEASE SEE ATTACHED FOR DETAILED DIRECTIO NS active Not Available Not Available No t Available losartan 100 mg tablet TAKE 1 TABLET BY MOUTH EVERY DAY active Not Available Not Available No t Available fluticaso ne propionat e 50 mcg/actua tion nasal spray,karin pension SPRAY ONE SPRAY INTO EACH NOSTRIL EVERY 12 HOURS 07/17 completed Not Available Not Available Not Available metformin ER 500 mg tablet,ex tended release 24 hr TAKE 2 TABLETS BY MOUTH DAILY active Not Available Not Available No t Available sertralin e 50 mg tablet TAKE 1 TABLET BY MOUTH ONCE DAILY active Not Available Not Available No t Available doxycycli ne hyclate 100 mg tablet TAKE 1 TABLET BY MOUTH TWICE A DAY FOR 7 DAYS 04/07 completed Not Available Not Available Not Available Atarax 25 mg tablet Take 1 tablet 4 times a day by oral route. active Not Available Not Available No t Available oxycodone 5 mg tablet 07/17 completed Not Available Not Available Not Available Lexapro 10 mg tablet Take 1 tablet every day by oral route. active Not Available Not Available No t Available Skelaxin 800 mg tablet Take 1 tablet 3 times a day by oral route. active Not Available Not Available No t Available Alcohol Prep Pads APPLY 1 PAD EVERY DAY BY TOPICAL ROUTE FOR 30 DAYS. active Not Available Not Available No t Available omeprazol e 10/15 completed Not Available Not Available Not Available ondansetr on 10/15 completed prior to radiatio n Not Available Not Available Not Available metformin ER 500 mg 24 hr tablet,ex tended release (gastric retention ) Take 2 tablets every day by oral route for 30 days. 07/22 completed Not Available Not Available Not Available Januvia 100 mg tablet Take 1 tablet every day by oral route in the morning for 30 days. active Not Available Not Available No t Available hydrochlo rothiazid e 12.5 mg tablet Take 1 tablet every day by oral route. 2012 active Not Available Not Available Not Avai lable Symbicort 160 mcg-4.5 mcg/actua tion HFA aerosol inhaler 10/15 completed Not Available Not Available Not Available Alvesco 80 mcg/actua tion aerosol inhaler Inhale 1 puff every day by inhalati on route. 2013 active Not Available Not Available Not Avai lable Alvesco 160 mcg/actua tion aerosol inhaler Inhale 1 puff twice a day by inhalati on route. active Not Available Not Available No t Available GaviLyte- G 236 gram-22.7 4 gram-6.74 gram-5.86 gram oral solution TAKE 240 ML BY MOUTH EVERY 10 MINUTES TAKE DIRECTED 07/17 completed Not Available Not Available Not Available Creon 12,000-38 ,000-60,0 00 unit capsule,d elayed release TAKE 1 CAPSULE BY MOUTH 3 TIMES DAILY WITH MEALS. active Not Available Not Available No t Available Prevnar 13 (PF) 0.5 mL intramusc ular syringe 10/05 completed Not Available Not Available Not Available Banophen 50 mg capsule TAKE 1 CAPSULE BY MOUTH 1 HOUR PRIOR TO SCAN 12/10 completed Not Available Not Available Not Available Farxiga 10 mg tablet TAKE 1 TABLET BY MOUTH DAILY IN THE MORNING active Not Available Not Available No t Available naloxone 4 mg/actuat ion nasal spray active Not Available Not Available Not Available Accu-Chek Guide test strips USE DIRECTED . TEST ONCE DAILY active Not Available Not Available No t Available Accu-Chek Guide Glucose Meter USE DIRECTED TO TEST ONCE DAILY active Not Available Not Available No t Available Fluad 65yr up(PF)45 mcg(15 mcgx3)/0. 5 mL intramusc ular syringe 10/05 completed Not Available Not Available Not Available Fluzone High-Dose Quad (PF) 240 mcg/0.7 mL IM syringe 04/07 completed Not Available Not Available Not Available Paxlovid 300 mg (150 mg x 2)-100 mg tablets in a dose pack PLEASE SEE ATTACHED FOR DETAILED DIRECTIO NS 10/15 completed Not Available Not Available Not Available Vitals Date Recorded Body height Body mass index (BMI) Body weight Body temperature Heart rate Oxygen saturation Oxygen saturation in Arterial blood by Pulse oximetry Systolic blood pressure Diastolic blood pressure Provider Name and Address Organization Details Last Updated DateTime 3 157.48 cm 30.4 kg/m2 90127.3 3 g 97.2 [degF] 112 /min 98 % 98 % 160 mm[Hg] 70 mm[Hg] VERONICA Ro [facility] [employer] [facility] 3 14:52:52 Date Recorded Body height Body mass index (BMI) Body weight Body temperature Heart rate Oxygen saturation Oxygen saturation in Arterial blood by Pulse oximetry Systolic blood pressure Diastolic blood pressure Provider Name and Address Organization Details Last Updated DateTime 3 157.48 cm 29.8 kg/m2 89374.5 6 g 98.1 [degF] 69 /min 97 % 97 % 140 mm[Hg] 86 mm[Hg] VERONICA Ro [facility] [employer] [facility] 3 16:18:55 Date Recorded Body height Body mass index (BMI) Body weight Body temperature Heart rate Oxygen saturation Oxygen saturation in Arterial blood by Pulse oximetry Systolic blood pressure Diastolic blood pressure Provider Name and Address Organization Details Last Updated DateTime 3 157.48 cm 30.2 kg/m2 82958.7 4 g 97.5 [degF] 90 /min 97 % 97 % 110 mm[Hg] 72 mm[Hg] Kayleigh ayon CMA [facility] [employer] [facility] 3 12:12:37 Date Recorded Body height Body mass index (BMI) Body weight Body temperature Heart rate Oxygen saturation Oxygen saturation in Arterial blood by Pulse oximetry Respiratory rate Systolic blood pressure Diastolic blood pressure Provider Name and Address Organization Details Last Updated DateTime 3 157.48 cm 29.3 kg/m2 11124.7 8 g 97.6 [degF] 89 /min 98 % 98 % 16 /min 136 mm[Hg] 84 mm[Hg] Merna Hernandez RN [facility] [employer] [facility] 3 11:30:35 Date Recorded Body height Body mass index (BMI) Body weight Respiratory rate Body temperature Heart rate Oxygen saturation Oxygen saturation in Arterial blood by Pulse oximetry Systolic blood pressure Diastolic blood pressure Provider Name and Address Organization Details Last Updated DateTime 4 157.48 cm 28.3 kg/m2 89924.8 2 g 16 /min 97.3 [degF] 83.99 /min 98 % 98 % 124 mm[Hg] 86 mm[Hg] Merna Hernandez RN [facility] [employer] [facility] 4 11:14:22 Social History None recorded. Functional Status None recorded. Mental Status None recorded. Family History Nothing Reported. Medical History No medical history recorded. Gynecological HistoryNo gynecological history recorded. Obstetrics History GPAL:G 0 P 0 0 0 0 Immunizations Vaccine Type Date Status Note Provider Nam e and Address Organization Details Recorded Time Influenza, split virus, quadrivalent, PF 05/28/2018 completed Not Available [facility] 3 08:53:10 Influenza, split virus, quadrivalent, PF 06/25/2017 completed Not Available [facility] 3 08:53:10 Past Encounters Encounter ID Performer Location Encounter Start Date Encounter Closed Date Diagnosis/Indication Diagnosis SNOMED-CT Code Diagnosis ICD10 Code Diagnosis Note [id number] [facility] [address] [place] [address] 01/03/2021 00:00:00 01/03/2021 20:10:24 [id number] [facility] [place] [address] [facility] [place] [address] 04/07/2021 00:00:00 04/08/2021 10:18:03 [id number] [facility] [place] [address] [facility] [place] [address] 06/08/2021 00:00:00 06/08/2021 13:20:50 [id number] [facility] [place] [address] [place] [address] [place] [address] 11/02/2021 00:00:00 11/02/2021 19:44:37 [id number] [facility] [place] [address] [place] [address] [place] [address] 11/16/2021 00:00:00 11/16/2021 21:32:45 [id number] Rosibel Muse MD [facility] [place] [address] [place] [address] [place] [address] 12/10/2022 14:41:31 12/10/2022 15:20:19 Edema of lower extremity 877124841 R60.0 Compressio n stockings. elevate legs. Watch salt in diet. Low back pain 999384307 M54.50 Ventral in cisional hernia 306294934 K43.2 [id number] Rosibel Muse MD [facility] [place] [address] [place] [address] [place] [address] 03/19/2023 16:12:31 03/19/2023 16:49:01 Chronic urticaria 99932476 L50.8 Use zyrtec. 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 New onset DM2. Will start metformin Will f/u in 3 months. Needs to watch carbs in diet and also pamphlets given out for DM. [id number] TRAVIS Samano [facility] [place] [address] [place] [address] 07/17/2023 11:25:10 07/17/2023 12:00:58 Uncontrolled type 2 diabetes mellitus 754085536 E11.65 [id number] TRAVIS Samano [facility] [place] [address] [place] [address] 10/16/2023 11:06:30 10/16/2023 11:28:23 Type 2 diabetes mellitus 07008141 E11.9 Allergic rhinitis 988786 04 J30.9 Anxiety 08818262 F41.9 Arthritis 6865280 M19.90 Depressive disorder 3548 9007 F32.A Essential hypertension 30348210 I10 Hyperlipidemia 90166953 E78.5 Low back pain 782947705 M54.50 Neuropathy [id number] G62 .9 Health Concerns Section Related Observation LastModified by Organization Detai ls LastModified Time None Recorded Concern Status LastModified by Organization Details LastModified Time None Recorded Advance Directives Directive None Recorded Payers Encounter Date Sequence Insurance Name Policy Number Policy Mcrae Covered Member ID Mcrae Member ID Guarantor Name 12/10/2022 1 [facility] (MEDICARE REPLACEMENT/A DVANTAGE - HMO) [id number] January White [id number] January White 12/10/2022 2 [place] [facility] Krissy White [id number] January White 03/19/2023 1 [facility] (MEDICARE REPLACEMENT/A DVANTAGE - HMO) [id number] January White [id number] January White 03/19/2023 2 [place] [facility] Krissy White [id number] January White 04/01/2023 1 [facility] (MEDICARE REPLACEMENT/A DVANTAGE - HMO) [id number] January White [id number] January White 04/01/2023 2 [place] [facility] Krissy White [id number] January White 07/17/2023 1 [facility] (MEDICARE REPLACEMENT/A DVANTAGE - HMO) [id number] Krissy White [id number] Krissy Oneal 07/17/2023 2 [place] [facility] A[facility] Krissy White [id number] Krissy Oneal 10/16/2023 1 [facility] (MEDICARE REPLACEMENT/A DVANTAGE - HMO) [id number] Krissy Oneal [id number] Krissy Oneal 10/16/2023 2 [place] [facility] Krissy Oneal [id number] Krissy Oneal Notes Date Note Type Note Provider Name and Address Organization Details Recorded Time 12/10/2022 text/html Here today .c/o swelling of ankles. They have been swelling. Taks 1 1/2 pills daily of HCTZ.Has a hernia of abdomen. Surgeon did not feel needed surgery. Has swelling and itching of navel. Has LBP and goes down leg and gets behind knee. Her leg feels numb and trouble walking on it. Going on x a couple of months. Pain is across back and down left leg. Can not walk and trying to deal with it. Is interested in a scooter. Can not use a walker since has back pain. Leg and back will continue to hurt. Has need for xray of L/S. Has a parking placard for LBP. Rosibel Muse MD [address], [place], [address], [employer] network [employer] 12/11/2022 06:23:51 03/19/2023 text/html Is breaking out with hives going on since 02/01. It comes and goes. The bumps do itch. Using benadryl and cortisone cream. Stopped losartan Has been taking 2 amlodipine. Went to ER and was given prednisone and taking benadryl. It makes her drowsy. Rosibel Muse MD [address], [place], [address], [employer] 03/19/2023 20:14:31 04/01/2023 text/html Here today for high BS up to 547 last week. Does not have DM and needs an A1C. Feels fine. Just a little winded. Is a little wobbly has tingling and numbness in feet since chemo for pancreatic cancer. Had a Whipple procedure. There fmhx of DM2. Has excessive thirst and mouth is dry. Has a lot of urination. Gets fatigued a lot. Rosibel Muse MD [address] [facility] [address], [place], [address], [employer] 04/01/2023 20:57:05 07/17/2023 text/html here for f/u TRAVIS Samano [address] [facility] [address] [address], [place], [address], [employer] 07/28/2023 09:50:11 10/16/2023 text/html no changes TRAVIS Samano [address] [address], [place], [address], [employer] 10/26/2023 21:20:45 OBGyn Episode No OBEpisode recorded.
--- OUTSIDE RECORDS SUMMARY | 2024-08-17 08:45 | XMS_ITS | Referral Summary ---
Author Organization [facility] Address [address] [place] [address] Care Team Providers Care Fashion Designer Name Role Phone Sabino Luke MD Unavailable Kathya Orona DO Primary Care Provider [phone] Encounters Date Type Department Care Team Description 07/03/2024 Telephone [facility]) - [facility] Minimally Invasive Surgery [address] [facility] 12th [address], [place] [address] Sabino Luke MD Medical Question/Miscellaneo us 07/03/2024 10:15 AM MULTIPLE SPINDLE ROUTER OPERATOR Office Visit [facility]) [facility] Minimally Invasive Surgery [address] [facility] [address]th [address], [place] [address] Sabino Luke MD History of incisional hernia repair (Primary Dx) 06/26/2024 Telephone [facility]) [facility] Minimally Invasive Surgery [address] [facility] [address], [place] [address] Sabino Luke MD Medical Question/Miscellaneo us 05/27/2024 3:15 PM CDT Office Visit [facility] Minimally Invasive Surgery [address] [facility] [address] [place] [address] Sabino Luke MD Postop check (Primary Dx); Incarcerated incisional hernia 05/11/2024 10:34 AM CDT - 05/19/2024 11:42 AM CDT Hospital Encounter [facility] 1 [facility] [place] [address] Sabino Luke MD Incarcerated incisional hernia [K43.0] (Primary Dx) Discharge Disposition: Discharge to SNF from Last 3 Months Allergies Active Allergy Reactions Criticality Noted Date [...] 1 tablet (10 mg total) by mouth director fundraising before breakfast 30 tablet 4 Active fluticasone [...] 1 tablet (10 mg total) by mouth director fundraising before breakfast 30 tablet 4 Active cyclobenzaprine (FLEXERIL) 10 mg tabletIndicatio ns:Muscle Spasm Take 1 tablet (10 mg total) by mouth 2 (two) times a day as needed for muscle spasms 30 tablet 4 Active hydroCHLOROthia zide (HYDRODIURIL) 25 mg tabletIndicatio ns:hypertension Take 1 tablet (25 mg total) by mouth director fundraising before breakfast 30 tablet 4 Active sertraline [...] neurogenic claudication 12/25/2022 Left lumbar radiculitis 12/25/2022 Immunizations Name Administration Dates Next Due Influenza, Trivalent, High D ose, Split, Preservative Free, Intramuscular 05/19/2024 Influenza, Unspecified 05/22/2017 Social History Tobacco Use Types Packs/Day Years Used Date Smoking Tobacco: Former Cigarettes 0.2 23 1 978 - 2000 Smokeless Tobacco: Never Tobacco Cessation:Counseling Given: Not [...] on file Legal Sex Female 8:15 AM MULTIPLE SPINDLE ROUTER OPERATOR Gender Identity Not on file Sexual Orientation Not on file Occupation Industry Job Start Date Job End Date Disability Not on file Not on file Not on file Last Filed Vital Signs Vital Sign Reading Time Taken Comments Blood Pressure 130/86 07/03/2024 10:53 AM MULTIPLE SPINDLE ROUTER OPERATOR Pulse 85 07/03/2024 10:53 AM MULTIPLE SPINDLE ROUTER OPERATOR Temperature 36.6 ??C (97.9 ??F) 07/03/2024 10:[address] Respiratory Rate 16 07/03/2024 10:53 AM MULTIPLE SPINDLE ROUTER OPERATOR Oxygen Saturation 97% 07/03/2024 10:53 AM MULTIPLE SPINDLE ROUTER OPERATOR Inhaled Oxygen Concentration - - Weight 68.5 kg (151 lb) 07/03/2024 10:53 AM MULTIPLE SPINDLE ROUTER OPERATOR Height 157.5 cm (5' 2 ) 07/03/2024 10:53 AM MULTIPLE SPINDLE ROUTER OPERATOR Body Mass Index 27.62 07/03/2024 10:53 AM MULTIPLE SPINDLE ROUTER OPERATOR Plan of Treatment Not on file Goals Goal Patient Goal Type Associated Problems [...] on stairs Contact your local community or [facility] for information on exercise, fall prevention programs, or options for improving home safety. Medical Devices Implanted Type Area Machine Setup Operator Device Identifier Shelf Expiration Date Model / Serial / Lot [employer]/C R Bard [id number] Bard [id number] Monofilament Soft Lightweight Low Profile Square - [id number] - [id number] Implanted:Qty: 1 on 05/11/2024 by Sabino Luke MD at [facility] Mesh N/A: Abdomen [employer]/C R Bard [id number] 11/06/2028 [id number] / [id number] / [id number] Procedures Procedure Name Priority Date/Time Associated Diagnosis [...] 8:12 AM CDT 05/19/2024 8:12 AM CDT us Sabino Luke MD LAB POCT ORDERABLES - DE VICE Final Result JASMIN [facility] One [facility] Department [place] [address] * POCT glucose (05/18/2024 8:00 PM CDT) Glucose, POC 192 70 - 199 mg/dL Blood 05/18/2024 8:00 PM CDT 05/18/2024 8:00 PM CDT Sabino Luke MD LAB POCT ORDERABLES - DE VICE Final Result Performing Organization Address [facility] Co de Phone Number [facility] Department [place] [address] * POCT glucose (05/18/2024 5:06 PM CDT) Glucose, POC 177 70 - 199 mg/dL Blood 05/18/2024 5:06 PM CDT 05/18/2024 5:06 PM CDT Sabino Luke MD LAB POCT ORDERABLES - DE VICE Final Result Performing Organization Address [facility] Phone Number [facility] [place] [address] * CT Chest PE (CTA) W Contrast [...] signed by: William Wyatt M.D. Hope Brito SENIOR SALES REPRESENTATIVE IMG CT PROCEDURES Final Result * POCT glucose (05/18/2024 12:03 PM CDT) Glucose, POC 149 70 - 199 mg/dL Blood 05/18/2024 12:0 3 PM CDT 05/18/2024 12:03 PM CDT Sabino Luke MD LAB POCT ORDERABLES - DE VICE Final Result Performing Organization Address [facility] Phone Number [facility] [place] [address] * POCT glucose (05/18/2024 8:01 AM CDT) Glucose, POC 134 70 - 199 mg/dL Blood 05/18/2024 8:01 AM CDT 05/18/2024 8:01 AM CDT Sabino Luke MD LAB POCT ORDERABLES - DE VICE Final Result Performing Organization Address [facility] Phone Number [facility] [place] [address] * POCT glucose (05/17/2024 8:16 PM CDT) Glucose, POC 131 70 - 199 mg/dL Blood 05/17/2024 8:16 PM CDT 05/17/2024 8:16 PM CDT Sabino Luke MD LAB POCT ORDERABLES - DE VICE Final Result Performing Organization Address [facility] Phone Number [facility] [place] [address] * POCT glucose (05/17/2024 5:30 PM CDT) Glucose, POC 174 70 - 199 mg/dL Blood 05/17/2024 5:30 PM CDT 05/17/2024 5:30 PM CDT Sabino Luke MD LAB POCT ORDERABLES - DE VICE Final Result Performing Organization Address City[facility] [place] [address] * POCT glucose (05/17/2024 11:28 AM CDT) [facility] Glucose, POC 149 70 - 199 mg/dL Blood 05/17/2024 11:2 8 AM CDT 05/17/2024 11:28 AM CDT Sbaino Luke MD LAB POCT ORDERABLES - DE VICE Final Result Performing Organization Address [facility] Co [place] [address] * ECG 12 lead (05/17/2024 9:50 AM CDT) [facility] Ventricular Rate EKG/Min 113 BPM [facility] Atrial Rate 113 BPM [facility] MN-Interval (MSEC) 138 ms [facility] QRS-Interval (MSEC) 82 ms [facility] QT-Interval (MSEC) 334 ms [facility] QTc 458 ms [facility] P [place] 33 degrees [facility] R [place] -3 degrees [facility] T [place] 80 degrees [facility] Diagnosis Sinus tachycardia Minimal voltage criteria for LVH, may be normal variant Nonspecific T wave abnormality Abnormal ECG No previous ECGs available Confirmed by ALIREZA COX M.D ([id number]) on 05/19/2024 9:25:15 AM [facility] 05/17/2024 9:50 AM CDT 05/19/2024 9:25 AM CDT Sabino Luke MD ECG ORDERABLES Final Re sult [facility] * XR Chest 1 View (05/17/2024 9:14 [...] 7:48 AM CDT 05/17/2024 7:48 AM CDT us Sabino Luke MD LAB POCT ORDERABLES - DE VICE Final Result JASMIN [facility] [place] [address] from Last 3 Months Insurance MEDICARE SOLUTIONS MEDICARE SOLUTIONS IDPA MEDICARE SOLUTIONS IDPA Advance Directives For more information, please contact: [phone] * Full Code (Latest Code Status on File) Date Activated Date Inactivated Comments 05/11/2024 8:24 PM 05/19/2024 3:53 PM Care Teams Fashion Designer Relationship Specialty Start Date End Date Kathya Orona DO [address] [place] [address] [address] PCP - General Family Medicine 05/12/24 Sabino [address] MD [address] [place] [address] Referring Physician General Surgery 12/06/23
--- OUTSIDE RECORDS SUMMARY | 2024-08-17 08:46 | XMS_ITS | Encounter Summary ---
Author Organization [facility] Address [address] [place] [address] Phone Care Team Providers Care Inventory Assistant Name Role Phone Sabino Luke MD Unavailable [phone] Kathya Orona DO Primary Care Provider [phone] Encounter Details Date Type Department Care Team (Late st Contact Info) Description 07/03/2024 10:15 AM BLOOD BANK TECHNOLOGIST Office Visit [facility] Advanced [facility] ([facility]) - [facility] Minimally Invasive Surgery [address] [facility] 12th [address] [place] [address] Sabino Luke MD [address] [place] [address] History of incisional hernia repair (Primary Dx) Social History Tobacco Use Types Packs/Day Years Used Date Smoking Tobacco: Former Cigarettes 0.2 23 1 978 - 2001 Smokeless Tobacco: Never Alcohol Use Standard Drinks/Week Comments No 0 [...] on file Legal Sex Female 8:15 AM BLOOD BANK TECHNOLOGIST Gender Identity Not on file Sexual Orientation Not on file Occupation Industry Job Start Date Job End Date Disability Not on file Not on file Not on file documented as of this encounter Last Filed Vital Signs Vital Sign Reading Time Taken Comments Blood Pressure 130/86 07/03/2024 10:53 AM BLOOD BANK TECHNOLOGIST Pulse 85 07/03/2024 10:53 AM BLOOD BANK TECHNOLOGIST Temperature 36.6 ??C (97.9 ??F) 07/03/2024 10:[address] Respiratory Rate 16 07/03/2024 10:53 AM BLOOD BANK TECHNOLOGIST Oxygen Saturation 97% 07/03/2024 10:53 AM BLOOD BANK TECHNOLOGIST Inhaled Oxygen Concentration - - Weight 68.5 kg (151 lb) 07/03/2024 10:53 AM BLOOD BANK TECHNOLOGIST Height 157.5 cm (5' 2 ) 07/03/2024 10:53 AM BLOOD BANK TECHNOLOGIST Body Mass Index 27.62 07/03/2024 10:53 AM BLOOD BANK TECHNOLOGIST documented in this encounter Patient Instructions * Patient Instructions* Sabino Luke MD - 07/03/2024 10:15 AM BLOOD BANK TECHNOLOGIST Images from the original note were not included. [facility] Were you happy with your care? We appreciate your feedback and review. Follow the steps below to submit an online review. Visit [email or web address] Search for Sabino Luke if doesn't come up (Scan with your phone) Click on Ratings 4. Click on Leave a review Thank you, and we appreciate your time. D BANK TECHNOLOGIST documented in this encounter Progress Notes * Sabino Luke MD - 07/03/2024 10:15 AM CST Images from the original note were not included. [facility] Minimally Invasive Surgery Established Patient Krissy Oneal : 1955 REFERRING PHYSICIAN - Kathya Orona DO PCP - Kathya Orona DO Reason for Visit: Ongoing follow-up Date of last visit: May 27 HPI: Krissy Oneal is a 68 y.o. female who is returning for ongoing follow-up after incisional hernia repair on February 08. She is overall doing well from a hernia standpoint. She is eating and drinking without any difficulty. Her incision is well healed. She is pending a CT scan with oncologist for next week. Her primary complaint is this chronic cough as well as some shortness of breath which is chronic in nature.. Physical Exam: Vitals BP 130/86 Pulse 85 Temp 36.6 ??C (97.9 ??F) Resp 16 Ht 157.5 cm (5' 2 ) Wt 68.5 kg (151 lb) SpO2 97% BMI 27.62 kg/m?? Physical Exam Constitutional: Appearance: She is well-developed. HENT: Nose: Nose normal. Eyes: Conjunctiva/sclera: Conjunctivae normal. Cardiovascular: Rate and Rhythm: Normal rate. Pulmonary: Effort: Pulmonary effort is normal. Abdominal: Palpations: Abdomen is soft. Tenderness: There is no abdominal tenderness. Hernia: No hernia is present. Comments: Well healed surgical scar Musculoskeletal: General: Normal range of motion. Cervical back: Normal range of motion. Skin: General: Skin is warm and dry. Neurological: Mental Status: She is alert and oriented to person, place, and time. Psychiatric: Mood and Affect: Mood normal. Assessment/Plan: 68 y.o. female presenting for ongoing follow-up after abdominal wall reconstruction in April. She is overall doing quite well without any evidence of hernia recurrence. Her incision is well healed. She is okay to continue with activity as tolerated. She is going to follow up with her PCP and oncologist. I will plan to see her back in 1 year sooner if she has any new issues. Sabino Luke MD, FACS Minimally Invasive GI Surgery & Abdominal Wall Reconstruction environmental safety specialist [facility] [phone] D BANK TECHNOLOGIST documented in this encounter Plan of Treatment Not on file documented as of this encounter Goals Goal Patient Goal Type Associated Problems [...] on stairs Contact your local community or [facility] for information on exercise, fall prevention programs, or options for improving home safety. documented as of this encounter Visit Diagnoses Diagnosis History of incisional hernia repair- Primary documented in this encounter Discontinued Medications Medication Sig Discontinue Reason Start Date End Da te polyethylene glycol (MIRALAX) 17 gram/dose bulk powderIndications:consti pation Take 17 g by mouth daily 05/18/2024 07/03/2024 oxyCODONE (ROXICODONE) 5 mg immediate release tabletIndications:Pain Take 1 tablet (5 mg total) by mouth every 4 (four) hours as needed for pain 05/18/2024 07/03/2024 documented as of this encounter Care Teams Inventory Assistant Relationship Specialty Start Date End Date Kathya Orona DO [facility] [address] [address] PCP - General Family Medicine 05/12/24 Sabino Luke MD [facility] [address] [place] [address] Referring Physician General Surgery 12/06/23 documented as of this encounter
--- OUTSIDE RECORDS SUMMARY | 2024-08-17 08:46 | XMS_ITS | Encounter Summary ---
Author Organization [facility] Address [address] [place] [address] Phone Care Team Providers Care Terrazzo Polisher Helper Name Role Phone Sabino Luke MD Unavailable [phone] Kathya Orona DO Primary Care Provider [phone] Reason for Visit * Consultation (Routine) - Pending Review Specialty Diagnoses / Procedures Referred By Contgabriella t Referred To Contact Minimally Invasive Surgery Diagnoses Incarcerated incisional hernia Rosibel Muse MD [address] [place] [address] [place] [address] Phone: tel: fax: Sabino Luke MD [address] [place] [address] Phone: tel: fax: Referral ID Status Reason Start Date Expiration Date Visits Requested Visits Authorized [id number] Pending Review Specialty Services Required 05/08/2024 06/07/2025 3 3 Encounter Details Date Type Department Care Team (Late st Contact Info) Description 05/27/2024 3:15 PM CDT Office Visit [facility] Minimally Invasive Surgery [address] [place] [address] Medical Office Building [address] [place] [address] Sabino Luke MD [address] [place] [address] Postop check (Primary Dx); Incarcerated incisional hernia Social History Tobacco Use Types Packs/Day Years [...] on file Legal Sex Female 8:15 AM PUBLIC TRANSIT SPECIALIST Gender Identity Not on file Sexual Orientation Not on file Occupation Industry Job Start Date Job End Date Disability Not on file Not on file Not on file documented as of this encounter Last Filed Vital Signs Vital Sign Reading Time Taken Comments Blood Pressure 123/84 05/27/2024 2:53 PM CDT Pulse 104 05/27/2024 2:53 PM CDT Temperature 36.4 ??C (97.5 ??F) 05/27/2024 2:53 PM CD T Respiratory Rate - - Oxygen Saturation 97% 05/27/2024 2:53 PM CDT Inhaled Oxygen Concentration - - Weight 68.5 kg (151 lb) 05/27/2024 2:53 PM CDT Height 157.5 cm (5' 2 ) 05/27/2024 2:53 PM CDT Body Mass Index 27.62 05/27/2024 2:53 PM CDT documented in this encounter Patient Instructions * Patient Instructions* Sabino Luke MD - 05/27/2024 3:15 PM CDT Images from the original note were not included. [email or web address] Were you happy with your care? We appreciate your feedback and review. Follow the steps below to submit an online review. Visit [email or web address] Search for Sabino Luke if doesn't come up (Scan with your phone) Click on Ratings 4. Click on Leave a review Thank you, and we appreciate your time. documented in this encounter Progress Notes * Sabino Luke MD - 05/27/2024 3:15 PM CDT Images from the original note were not included. [facility] Minimally Invasive Surgery Post-Operative Note Krissy Oneal : 1955 REFERRING PHYSICIAN - Rosibel Muse MD PCP - Kathya Orona DO DATE OF OPERATION: 05/11/2024 PROCEDURE PERFORMED: Repair Incisional Hernia and Reconstruction Abdominal Wall DATE OF DISCHARGE: 05/19/2024 HISTORY OF PRESENT ILLNESS: The patient is a 68 y.o. female presenting 2 weeks post-op from incisional hernia repair and abdominal wall reconstruction. She is overall doing well. She is tolerating a diet and moving her bowels regularly. Her incision is healing well PHYSICAL EXAM: Vitals BP 123/84 Pulse 104 Temp 36.4 ??C (97.5 ??F) Ht 157.5 cm (5' 2 ) Wt 68.5 kg (151 lb) SpO2 97% BMI 27.62 kg/m?? GENERAL: Well-appearing individual in no acute distress. NEURO: Alert and oriented x3. LUNGS: Breathing comfortably on room air. CARDIO: Regular rate and rhythm. ABDOMEN: Soft, non-tender. No evidence of hernia recurrence INCISION: Well healed without evidence of infection ASSESSMENT AND PLAN: 68 y.o. female who is 2 weeks following Repair Incisional Hernia and Reconstruction Abdominal Wall.We removed their herminia in the office today. She is ok to slowly increase her activity. I will plan to see her back in 1 month. Sabion Luke MD, FACS Minimally Invasive GI Surgery & Abdominal Wall Reconstruction shop steward [facility] [phone] documented in this encounter Plan of Treatment [...] on stairs Contact your local community or [facility] for information on exercise, fall prevention programs, or options for improving home safety. documented as of this encounter Visit Diagnoses Diagnosis Postop check- Primary Follow-up examination, following unspecified surgery Incarcerated incisional hernia Incisional hernia with obstruction documented in this encounter Orders Outpatient Referral Count Last Ordered Date Fir st Ordered Date AMB REFERRAL TO MINIMALLY INVASIVE SURGERY 1 05/27/2024 documented in this encounter Care Teams Terrazzo Polisher Helper Relationship Specialty Start Date End Date Kathya Orona DO [facility] [address] [place] [address] PCP - General Family Medicine 05/12/24 Sabino Luke MD [facility] [address] [place] [address] Referring Physician General Surgery 12/06/23 documented as of this encounter
--- OUTSIDE RECORDS SUMMARY | 2024-08-17 08:46 | XMS_ITS | Encounter Summary ---
Author Organization [facility] Address [address] [place] [address] Phone Care Team Providers Care Eye Surgeon Name Role Phone Sabino Luke MD Unavailable [phone] Kathya Orona DO Primary Care Provider [phone] Reason for Visit * Reason Onset Date Comments Medical Question/Miscellaneous 07/03/2024 Encounter Details Date Type Department Care Team (Late st Contact Info) Description 07/03/[address] [facility] Advanced Medicine ([facility]) - [facility] Minimally Invasive Surgery [address] [facility] Advanced Medicine [address]th Floor, [place] [address] Sabino Luke MD [address] [place] [address] Medical Question/Miscellaneous Social History Tobacco Use Types Packs/Day Years [...] on file Legal Sex Female 8:15 AM RN FIRST ASSISTANT Gender Identity Not on file Sexual Orientation Not on file Occupation Industry Job Start Date Job End Date Disability Not on file Not on file Not on file documented as of this encounter Miscellaneous Notes * Telephone Encounter - Vivian Eisenberg - 07/03/2024 9:41 AM CST Nurse at clinic was notified of message FIRST ASSISTANT * Telephone Encounter - Mp Guerra - 07/03/2024 9:27 AM CST Patient Query: Was an attempt to transfer to the assigned clinical staff or backline? Yes Reason for call?: Patient calling to inform us she may be 15- 20 mins late to her post op appt (Read message back to caller and ask them if there is anything else they'd like to add to the message) Who is the caller: January What is the best number for them to contact for a call back: [phone] FIRST ASSISTANT documented in this encounter Plan of Treatment [...] on stairs Contact your local community or [facility] for information on exercise, fall prevention programs, or options for improving home safety. documented as of this encounter Visit Diagnoses Not on filedocumented in this encounter Care Teams Eye Surgeon Relationship Specialty Start Date End Date Kathya Orona DO [facility] [address] [place] [id number] PCP - General Family Medicine 05/12/24 Sabino Luke MD [address] [place] [address] Referring Physician General Surgery 12/06/23 documented as of this encounter
--- OUTSIDE RECORDS SUMMARY | 2024-08-17 08:46 | XMS_ITS | Encounter Summary ---
Author Organization [facility] Healthcare Address [address] [place] [address] Care Team Providers Care Concrete Foreman Name Role Phone Rosibel Muse MD Primary Care Provider [phone] Sabino Luke MD Unavailable [phone] Kathya Orona DO Primary Care Provider [phone] Reason for Visit * Auth/Cert Specialty Diagnoses / Procedures Referred By Marlenyac t Referred To Contact Diagnoses Incarcerated incisional hernia Incarcerated incisional hernia [K43.0] Procedures [place] RPR AA HERNIA 1ST > 10 CM NCRC8/STRANGULATED [place] [facility] MYOCUTANEOUS/FASCIOCUTANEOUS FLAP TRUNK REPAIR INCISIONAL HERNIA RECONSTRUCTION ABDOMINAL WALL Referral ID Status Reason Start Date Expiration Date Visits Re quested Visits Authorized [id number] 1 1 Encounter Details Date Type Department Care Team (Latest Contact Info) Description 05/11/2024 10:34 AM CDT - 05/19/2024 11:42 AM CDT Hospital Encounter 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 Gender Identity Not on file Sexual Orientation Not on file Occupation Industry Job Start Date Job End Date Disability Not on file Not on file Not on file documented as of this encounter Last Filed Vital Signs Vital Sign Reading Time Taken Comments Blood Pressure 124/90 05/19/2024 8:51 AM CDT Pulse 104 05/19/2024 8:51 AM CDT Temperature 36.8 ??C (98.2 ??F) 05/19/2024 8:51 AM CD T Respiratory Rate 16 05/19/2024 8:51 AM CDT Oxygen Saturation 97% 05/19/2024 8:51 AM CDT Inhaled Oxygen Concentration - - Weight 70.8 kg (156 lb) 05/11/2024 11:34 PM CDT Height 157.5 cm (5' 2 ) 05/11/2024 11:34 PM CDT Body Mass Index 28.53 05/11/2024 11:34 PM CDT documented in this encounter Discharge Summaries * Hope Brito NP - 05/19/2024 8:18 AM CDT Inpatient Discharge Summary BRIEF OVERVIEW Admitting Provider: Sabino Luke MD Discharge Provider: Sabino Luke MD Primary Care Physician at Discharge: Kathya Orona DO [phone] Admission Date: 05/11/2024 Discharge Date: 05/19/2024 Primary Discharge Diagnosis: Incarcerated incisional hernia Secondary Discharge Diagnosis: Principal Problem: Incarcerated incisional hernia Active Problems: Incisional hernia of anterior abdominal wall without obstruction or gangrene Resolved Problems: No resolved hospital problems. DETAILS OF HOSPITAL STAY Presenting Problem/History of Present Illness: Incarcerated incisional hernia Krissy Oneal is a 68 y.o. female who was referred for evaluation of an enlarging increasingly symptomatic incisional hernia. She has a history of an open Whipple performed for pancreatic cancer and developed a large midline incisional hernia that has been increasing in size. She reports significantdiscomfort and impact on her daily living & presents for surgical repair with Dr Luke. Hospital Course: For full operative details, please dictated summary. The patient tolerated the procedure well and post operatively was admitted to the Minimally Invasive Surgery Service for further management. Diet was advanced as tolerated to diabetic diet. Pain was controlled on IV and oral medication. The patient had SOB with ambulation, the patient with an allergy to IV contrast Dye requiring premedication with IV steriods and Benadryl. CT Chest PE protocol was negative for PE. The patient was evaluated by PT/OT who recommended SNF. The patient was then discharged to SNF on postoperative day 8 in stable condition, tolerating a diabetic diet, voiding spontaneously, ambulating well and with pain controlled on oral pain medication. JAIME drains removed on day of discharge. Gypsy cath de- accessed on day of discharge. Active Issues Requiring Follow-up: Follow up with Dr Luke for staple removal Test Results Pending at Discharge: Pending Labs Order Current Status Lipid panel In process Operative Procedures Performed: Procedure(s): REPAIR INCISIONAL HERNIA RECONSTRUCTION ABDOMINAL WALL Other Procedures: See above Pertinent Test Results: See above Discharge Details Physical Exam at Discharge: Discharge Condition: stable Pulse: 104 Resp: 16 BP: 124/90 Temp: 36.8 ??C (98.2 ??F) Weight: 70.8 kg (156 lb) Pertinent Exam Findings at Discharge: Physical Exam: General: in no acute distress, alert HEENT: moist mucous Chest: non-labored breathing Heart: regular rate and rhythm Abdomen: soft, non-distended, appropriate tender Extremity: warm and well perfused Wound: clean, dry and intact Discharge Disposition: Discharge to SNF Code Status at Discharge: full Discharge Instructions: Activity Instructions Discharge Activity: Driving restrictions -Do not drive while taking pain medications. Discharge Activity: Lifting restrictions -Do NOT lift greater than 10 pounds for 4 weeks. Discharge Activity: Stairs -You may climb stairs as tolerated Discharge Activity: Walking -You may walk as tolerated. Diet Instructions Adult Discharge Diet Diet Type: Return to previous diet Diabetic diet Other Instructions Call provider for: increased temperature -Temperature greater than 101 degrees F Call provider for: nausea, vomiting, diarrhea -If you have persistent nausea, vomiting or diarrhea that does not stop Call provider for: redness, tenderness, or signs of infection (pain, swelling, redness, odor or green/yellow discharge around incision site) Call provider for: severe uncontrolled pain Call provider for: any other concerns or questions Call the doctor's officer at for questions or concerns. The office is open Saturday-Saturday from 8:00 AM - 4:00 PM. If you need to talk with a doctor after hours or on a weekend or holiday, call . Call provider if: you feel dizzy, very tired or like you may faint Care Instructions: Abdominal binder -Wear the abdominal binder day/night for 4 week(s). May remove to shower. May remove to wash the binder. Care Instructions: Incentive Spirometer - Continue to use your incentive spirometer Care Instructions: Incisions -Keep incisions clean and dry Care Instructions: No tub baths -No tub baths, whirlpools or swimming until your provider says it's ok. Care Instructions: Shower -You may shower in 2 days after surgery. Discharge Wound Type: Open to air -You may leave your incision open to air Discharge Wound Type: Stitches/Herminia -Stitches/herminia will be removed at your next appointment Special Instructions Use Oxygen O2 2 L NC as needed to keep Oxygen saturation above 90% Special Instructions PT/OT to evaluate and treat per facility protocol Discharge Medications: Your medication list START taking these medications acetaminophen 500 mg tablet Take 2 tablets (1,000 mg total) by mouth every 6 (six) hours as needed for pain Commonly known as: TYLENOL docusate sodium 100 mg capsule Take 1 capsule (100 mg total) by mouth 2 (two) times a day Commonly known as: COLACE oxyCODONE 5 mg immediate release tablet Take 1 tablet (5 mg total) by mouth every 4 (four) hours as needed for pain Commonly known as: ROXICODONE polyethylene glycol 17 gram/dose bulk powder Take 17 g by mouth daily Commonly known as: MIRALAX CHANGE how you take these medications ALPRAZolam 0.5 mg tablet Take 1 tablet (0.5 mg total) by mouth 3 (three) times a day as needed for anxiety Commonly known as: XANAX What changed: medication strength how much to take when to take this Alvesco 80 mcg/actuation inhaler Inhale 1 puff 2 (two) times a day as needed (SOB) Rinse mouth with water after use. Do not swallow. Generic drug: ciclesonide What changed: See the new instructions. budesonide-formoteroL 160-4.5 mcg/actuation inhaler Inhale 2 puffs 2 (two) times a day as needed (SOB) Rinse mouth with water after use. Do not swallow. Commonly known as: SYMBICORT What changed: See the new instructions. hydrOXYzine 25 mg tablet Take 1 tablet (25 mg total) by mouth every 6 (six) hours as needed for itching Commonly known as: ATARAX What changed: See the new instructions. Iron 100 Plus [phone] he-uv-nke-mg tablet Take 1 tablet/chew tab by mouth strapping machine tender before breakfast Generic drug: iron-vit C-vit D14-vptqn acid What changed: medication strength how much to take sertraline 50 mg tablet Take 1 tablet (50 mg total) by mouth nightly Commonly known as: ZOLOFT What changed: when to take this CONTINUE taking these medications Accu-Chek Guide test strips strip Generic drug: blood glucose diagnostic Accu-Chek Softclix Lancets lancets Generic drug: lancets albuterol HFA 90 mcg/actuation inhaler Inhale 2 puffs every 6 (six) hours as needed for wheezing Commonly known as: PROVENTIL HFA,VENTOLIN HFA,PROAIR HFA Alcohol Prep Pads pads, medicated Generic drug: alcohol swabs amLODIPine 10 mg tablet Take 1 tablet (10 mg total) by mouth strapping machine tender before breakfast Commonly known as: NORVASC cyanocobalamin (vitamin B-12) 5,000 mcg/mL drops Place 5,000 mcg under the tongue strapping machine tender before breakfast cyclobenzaprine 10 mg tablet Take 1 tablet (10 mg total) by mouth 2 (two) times a day as needed for muscle spasms Commonly known as: FLEXERIL dicyclomine 20 mg tablet Take 1 tablet (20 mg total) by mouth 2 (two) times a day Commonly known as: BENTYL Farxiga 10 mg tablet Take 1 tablet (10 mg total) by mouth strapping machine tender before breakfast Generic drug: dapagliflozin propanediol fluticasone propionate 50 mcg/actuation nasal spray Administer 1 spray into each nostril daily as needed for allergies Commonly known as: FLONASE hydroCHLOROthiazide 25 mg tablet Take 1 tablet (25 mg total) by mouth strapping machine tender before breakfast Commonly known as: HYDRODIURIL metFORMIN 500 mg tablet Take 1 tablet (500 mg total) by mouth 2 (two) times a day with meals Commonly known as: GLUCOPHAGE oxygen Administer 2 L/min into each nostril as needed (SOB) potassium chloride ER 20 mEq CR tablet Take 1 tablet (20 mEq total) by mouth every other day Commonly known as: KLOR-CON simvastatin 20 mg tablet Take 1 tablet (20 mg total) by mouth nightly Commonly known as: ZOCOR Outpatient Follow-Up: Future Appointments Date Time Provider Department Center 05/27/2024 3:15 PM Sabino Luke MD [id number] [facility] Cosigned by Sabino Luke MD at 05/20/2024 5:50 AM CDT documented in this encounter Medications at Time of Discharge oxygenIndication s:Dyspnea Administer 2 L/min into each nostril as needed (SOB) Accu-Chek Guide test strips strip 04/13/2024 Accu-Chek Softclix Lancets lancets 04/06/2024 acetaminophen (TYLENOL) 500 mg tabletIndication s:Pain Take 2 tablets (1,000 mg total) by mouth every 6 (six) hours as needed for pain 30 tablet 05/18/2024 albuterol HFA (PROVENTIL HFA,VENTOLIN HFA,PROAIR HFA) 90 mcg/actuation inhalerIndicatio ns:Acute Asthma Attack Inhale 2 puffs every 6 (six) hours as needed for wheezing 1 each 05/18/2024 Alcohol Prep Pads pads, medicated 03/30/2024 ALPRAZolam (XANAX) 0.5 mg tablet Take 1 tablet (0.5 mg total) by mouth 3 (three) times a day as needed for anxiety 10 tablet 05/18/2024 amLODIPine (NORVASC) 10 mg tabletIndication s:hypertension Take 1 tablet (10 mg total) by mouth strapping machine tender before breakfast 30 tablet 05/18/2024 budesonide-formo teroL (SYMBICORT) 160-4.5 mcg/actuation inhalerIndicatio ns:Acute Asthma Attack Inhale 2 puffs 2 (two) times a day as needed (SOB) Rinse mouth with water after use. Do not swallow. 1 each 05/18/2024 ciclesonide (Alvesco) 80 mcg/actuation inhalerIndicatio ns:Maintenance Therapy for Asthma Inhale 1 puff 2 (two) times a day as needed (SOB) Rinse mouth with water after use. Do not swallow. 6.1 g 11 05/18/2024 cyclobenzaprine (FLEXERIL) 10 mg tabletIndication s:Muscle Spasm Take 1 tablet (10 mg total) by mouth 2 (two) times a day as needed for muscle spasms 30 tablet 05/18/2024 dicyclomine (BENTYL) 20 mg tabletIndication s:Abdominal Pain with Cramps Take 1 tablet (20 mg total) by mouth 2 (two) times a day 60 tablet 05/18/2024 docusate sodium (COLACE) 100 mg capsuleIndicatio ns:constipation Take 1 capsule (100 mg total) by mouth 2 (two) times a day 30 capsule 05/19/2024 Farxiga 10 mg tabletIndication s:type 2 diabetes mellitus Take 1 tablet (10 mg total) by mouth strapping machine tender before breakfast 30 tablet 05/18/2024 fluticasone propionate (FLONASE) 50 mcg/actuation nasal sprayIndications :Allergic Rhinitis Administer 1 spray into each nostril daily as needed for allergies 1 each 05/18/2024 hydroCHLOROthiaz herman (HYDRODIURIL) 25 mg tabletIndication s:hypertension Take 1 tablet (25 mg total) by mouth strapping machine tender before breakfast 30 tablet 05/18/2024 hydrOXYzine (ATARAX) 25 mg tablet Take 1 tablet (25 mg total) by mouth every 6 (six) hours as needed for itching 30 tablet 05/18/2024 metFORMIN (GLUCOPHAGE) 500 mg tabletIndication s:type 2 diabetes mellitus Take 1 tablet (500 mg total) by mouth 2 (two) times a day with meals 60 tablet 05/18/2024 sertraline (ZOLOFT) 50 mg tabletIndication s:Anxiety with Depression Take 1 tablet (50 mg total) by mouth nightly 30 tablet 05/18/2024 simvastatin (ZOCOR) 20 mg tabletIndication s:hyperlipidemia Take 1 tablet (20 mg total) by mouth nightly 30 tablet 05/18/2024 cyanocobalamin, vitamin B-12, 5,000 mcg/mL dropsIndications :Prevention of Vitamin B12 [address] 5,000 mcg under the tongue strapping machine tender before breakfast 59 mL 05/18/2024 4 iron-vit C-vit E03-skyly acid (Iron 100 Plus) [phone] ik-af-vcq-mg tabletIndication s:supplement Take 1 tablet/chew tab by mouth strapping machine tender before breakfast 30 tablet 05/18/2024 4 potassium chloride ER 20 mEq CR tabletIndication s:supplement Take 1 tablet (20 mEq total) by mouth every other day 15 tablet 05/18/2024 4 oxyCODONE (ROXICODONE) 5 mg immediate release tabletIndication s:Pain Take 1 tablet (5 mg total) by mouth every 4 (four) hours as needed for pain 10 tablet 05/18/2024 4 polyethylene glycol (MIRALAX) 17 gram/dose bulk powderIndication s:constipation Take 17 g by mouth daily 116 g 05/18/2024 4 documented as of this encounter Ordered Prescriptions Prescription Sig Dispense Quantity Refills Last Filled Start Date End Date docusate sodium (COLACE) 100 mg capsuleIndications :constipation Take 1 capsule (100 mg total) by mouth 2 (two) times a day 30 capsule 05/19/2024 acetaminophen (TYLENOL) 500 mg tabletIndications: Pain Take 2 tablets (1,000 mg total) by mouth every 6 (six) hours as needed for pain 30 tablet 05/18/2024 simvastatin (ZOCOR) 20 mg tabletIndications: hyperlipidemia Take 1 tablet (20 mg total) by mouth nightly 30 tablet 05/18/2024 sertraline (ZOLOFT) 50 mg tabletIndications: Anxiety with Depression Take 1 tablet (50 mg total) by mouth nightly 30 tablet 05/18/2024 hydroCHLOROthiazid e (HYDRODIURIL) 25 mg tabletIndications: hypertension Take 1 tablet (25 mg total) by mouth strapping machine tender before breakfast 30 tablet 05/18/2024 cyclobenzaprine (FLEXERIL) 10 mg tabletIndications: Muscle Spasm Take 1 tablet (10 mg total) by mouth 2 (two) times a day as needed for muscle spasms 30 tablet 05/18/2024 amLODIPine (NORVASC) 10 mg tabletIndications: hypertension Take 1 tablet (10 mg total) by mouth strapping machine tender before breakfast 30 tablet 05/18/2024 albuterol HFA (PROVENTIL HFA,VENTOLIN HFA,PROAIR HFA) 90 mcg/actuation inhalerIndications :Acute Asthma Attack Inhale 2 puffs every 6 (six) hours as needed for wheezing 1 each 05/18/2024 metFORMIN (GLUCOPHAGE) 500 mg tabletIndications: type 2 diabetes mellitus Take 1 tablet (500 mg total) by mouth 2 (two) times a day with meals 60 tablet 05/18/2024 hydrOXYzine (ATARAX) 25 mg tablet Take 1 tablet (25 mg total) by mouth every 6 (six) hours as needed for itching 30 tablet 05/18/2024 fluticasone propionate (FLONASE) 50 mcg/actuation nasal sprayIndications:A llergic Rhinitis Administer 1 spray into each nostril daily as needed for allergies 1 each 05/18/2024 Farxiga 10 mg tabletIndications: type 2 diabetes mellitus Take 1 tablet (10 mg total) by mouth strapping machine tender before breakfast 30 tablet 05/18/2024 dicyclomine (BENTYL) 20 mg tabletIndications: Abdominal Pain with Cramps Take 1 tablet (20 mg total) by mouth 2 (two) times a day 60 tablet 05/18/2024 ciclesonide (Alvesco) 80 mcg/actuation inhalerIndications :Maintenance Therapy for Asthma Inhale 1 puff 2 (two) times a day as needed (SOB) Rinse mouth with water after use. Do not swallow. 6.1 g 11 05/18/2024 budesonide-formote roL (SYMBICORT) 160-4.5 mcg/actuation inhalerIndications :Acute Asthma Attack Inhale 2 puffs 2 (two) times a day as needed (SOB) Rinse mouth with water after use. Do not swallow. 1 each 05/18/2024 ALPRAZolam (XANAX) 0.5 mg tablet Take 1 tablet (0.5 mg total) by mouth 3 (three) times a day as needed for anxiety 10 tablet 05/18/2024 polyethylene glycol (MIRALAX) 17 gram/dose bulk powderIndications: constipation Take 17 g by mouth daily 116 g 05/18/2024 4 potassium chloride ER 20 mEq CR tabletIndications: supplement Take 1 tablet (20 mEq total) by mouth every other day 15 tablet 05/18/2024 4 iron-vit C-vit O40-lrgcn acid (Iron 100 Plus) [phone] lq-ju-acm-mg tabletIndications: supplement Take 1 tablet/chew tab by mouth strapping machine tender before breakfast 30 tablet 05/18/2024 4 cyanocobalamin, vitamin B-12, 5,000 mcg/mL dropsIndications:P revention of Vitamin B[address] 5,000 mcg under the tongue strapping machine tender before breakfast 59 mL 05/18/2024 4 ALPRAZolam (XANAX) 0.5 mg tablet Take 1 tablet (0.5 mg total) by mouth 3 (three) times a day as needed for anxiety 10 tablet 05/18/2024 4 oxyCODONE (ROXICODONE) 5 mg immediate release tabletIndications: Pain Take 1 tablet (5 mg total) by mouth every 4 (four) hours as needed for pain 10 tablet 05/18/2024 4 oxyCODONE (ROXICODONE) 5 mg immediate release tabletIndications: Pain Take 1 tablet (5 mg total) by mouth every 4 (four) hours as needed for pain 10 tablet 05/18/2024 4 docusate sodium (COLACE) 100 mg capsuleIndications :constipation Take 1 capsule (100 mg total) by mouth 2 (two) times a day 30 capsule 05/13/2024 4 acetaminophen 500 mg capsuleIndications :Pain Take 2 capsules (1,000 mg total) by mouth every 6 (six) hours as needed for pain 05/13/2024 4 documented in this encounter Discharge Disposition Disposition Code Departure Means Destination Comment s Discharge to SNF [facility] ([place], [place]) documented in this encounter Progress Notes * Germaine Cao RN - 05/19/2024 10:54 AM CDT 05/19/24 1054 Communications Important Message from Medicare notice given to patient? Yes YOUNG letter given? Not Applicable IM letter completed with patient/national account representative at bedside. Patient/national account representative were informed ofthe planned discharge date, the date the beneficiary's financial liability begins, the beneficiary's appeal rights, and how and when to initiate an appeal. Patient/national account representative were provided a copy of the IM letter and IM letter was placed in unit???s designated medical record bin to be uploaded into the patient???s chart. * Germaine Cao RN - 05/19/2024 10:54 AM CDT 05/19/24 1051 Discharge Summary Discharge Disposition intermediate facility (short term care) Specify Facility [facility] Facility Contact Number Mary Jo [phone]Hereah Stock Facility Attending Contact Number Discharge Records Transfer Form Completed Recommended Discharge Level of Care intermediate facility (short term care) Actual Discharge Level of Care intermediate facility (short term care) Does Actual Level of Care Match Care Team Recommendation? Yes Post Acute Care Plan Home Care Services N/A OP Services N/A DME N/A Post Acute Care Facility Yes Referral Status Accepted Accepted Post Acute Care Location and Contact [facility] [phone] [phone]/ Mary Jo [phone] Accepted Post Acute Care Discharge Additional Assistance Financial assistance Other (comment) (No financial needs identified.) Does the patient need discharge transport arranged? No (Pt's daughter to transport home) Post Discharge Care Provider Post Discharge Care Plan DC Summary has been faxed to next level of care provider (see Follow Up Providers) Per medical team, patient is medically stable for discharge at this time. [facility]. CM spoke with the patient/family, admissions, medical team, and RN regarding discharge planning, and all are agreeable to discharge. Post-acute care transfer packet completed and will be sent with the patient. RN provided with report number to nurses station. Room # 515Dprovided by facility. Mode of transport has been discussed with the patient/family, MD, nursing staff. All are agreeable to plan and understand their responsibilities to ensure the safe transfer. * Yaw Yee MD - 05/19/2024 6:38 AM CDT [facility]imally In[facility] Surgery Daily Progress Note SUBJECTIVE: Overnight Events: No acute events overnight Interval History: Patient remains stable. Patient is having appropriate post-surgical pain that is well controlled. No complaints of N/V. BMx3 yesterday. Patient has been ambulating without concern. CT PE without concern for acute pulmonary embolism. OBJECTIVE: Vitals / I/O: 24hr Min/Max: Vitals: 05/18/24 1932 05/18/24 2244 05/19/24 0234 05/19/24 0525 BP: 148/93 120/83 151/95 (S) 133/93 BP Location: Right arm Right arm Right arm Right arm Patient Position: Reclining Reclining Reclining Lying;HOB 30 degrees Pulse: 111 101 80 (S) 104 Resp: 16 16 16 Temp: 36.6 ??C (97.9 ??F) 36.6 ??C (97.9 ??F) 36.5 ??C (97.7 ??F) 36.6 ??C (97.9 ??F) TempSrc: Oral Oral Oral Oral SpO2: 96% 98% 95% 96% Weight: Height: I/O last 3 completed shifts: In: 660 [P.O.:650; I.V.:10] Out: 2133 [Urine:1820; Drains:313] Physical Exam: General NAD, awake, alert, oriented Neuro Moving all extremities, no focal deficits Psych Appropriate mood and affect HEENT EOMI, conjunctiva pink Cardio Regular rate and rhythm Pulm Breathing comfortably on room air no increased work of breathing. GI soft, non-distended, mildly tender Skin Incisions clean,dry, intact, with herminia in place no erythema, no drainage Drains Drains in place with thin serosanguineous output Extremities Warm, well perfused, No edema Labs: Lab Results Component Value Date WBC 7.2 05/15/2024 HGB 11.2 (L) 05/15/2024 HCT 32.9 (L) 05/15/2024 MCV 83.1 05/15/2024 LABPLAT 286 05/15/2024 Chemistry Lab Results Component Value Date SODIUM 132 (L) 05/15/2024 POTASSIUM 3.6 05/15/2024 CHLORIDE 95 (L) 05/15/2024 CO2 29 05/15/2024 ANIONGAP 8 05/15/2024 BUNSER 8 05/15/2024 CREATININE 0.65 05/15/2024 GLUCOSE 125 05/16/2024 CALCIUM 9.4 05/15/2024 BILITOT 0.3 04/16/2024 ALBUMIN 5.3 (H) 04/16/2024 GFRNAA >90 05/15/2024 ALKPHOS 89 04/16/2024 AST 32 04/16/2024 ALT 37 04/16/2024 MAGNESIUM 1.9 05/14/2024 Imaging: CT PE (05/18): 1. No pulmonary embolism. 2. Interval volume loss in the right lower and middle lobes, most consistent with atelectasis. Exclusion of underlying pneumonia is difficult given the early phase of contrast. ASSESSMENT/PLAN: 68 y.o. F with PSHx Whipple, HLD, HTN, s/p open AWR w/ B/L TAR on 05/11 05/19: Remove JAIME drains. Plan to discharge to SNF today. Neuro/Pain - Pain is well controlled on current regimen. Continue Tylenol, IV Dilaudid, and Oxycodone CV - Remains hemodynamically stable. Continue monitoring, no telemetry. Resume/continue home calcium channel ashley, HCTZ for home HTN Pulm - No post-op respiratory insufficiency, stable on RA, cont Q1H incentive spirometry. FEN - heplock IVF, fluid and electrolyte abnormalities being treated, evaluated or monitored are: no electrolyte disorders GI - Normal post-op bowel function/recovery, Carb consistent diet Renal/ - Cr WNL, adequate UOP. Continue strict I/O. Heme - H/H stable, no transfusion indicated ID - no indication for ABX Endo - DM2, sugars well controlled on SSI MSK - OOB with assist, PT/OT ordered PPX - SQH Dispo - DC to SNF per PT, COVID (-) for placement Patient d/w Attending Surgeon Dr Smita Yee MD Plastic & Reconstructive Surgery Resident, PGY1 [facility] in [facility] Cosigned by Sabino Luke MD at 05/20/2024 5:51 AM CDT Associated attestation - Sabino Luke MD - 05/20/2024 5:51 AM CDT The resident/fellow saw and examined the patient, we discussed their findings, and I am in agreement with the plan based on the discussion with the resident/fellow. I did not personally examine the patient. * Yaw Yee MD - 05/18/2024 6:01 AM CDT [facility] Minimally Invasive Surgery Daily Progress Note SUBJECTIVE: Overnight Events: No acute events overnight Interval History: Patient remains stable. Patient is having appropriate post-surgical pain that is well controlled. No complaints of N/V. BMx2 yesterday. Patient has been ambulating without concern. EKG + CXR iso tachycardia unremarkable. She tolerated her carb consistent diet without concern. Sheremains tachycardic but stable on RA. OBJECTIVE: Vitals / I/O: 24hr Min/Max: Vitals: 05/17/24 1653 05/17/24 1948 05/17/24 2310 05/18/24 0547 BP: 125/85 133/79 138/93 127/84 BP Location: Right arm Right arm Right arm Right arm Patient Position: Sitting Pulse: 117 116 108 104 Resp: 18 18 18 16 Temp: 36.8 ??C (98.2 ??F) 36.6 ??C (97.9 ??F) 36.6 ??C (97.9 ??F) 36.8 ??C (98.2 ??F) TempSrc: Oral Oral Oral Oral SpO2: 95% 95% 95% 96% Weight: Height: I/O last 3 completed shifts: In: 660 [P.O.:650; I.V.:10] Out: 2132 [Urine:1820; Drains:313] Physical Exam: General NAD, awake, alert, oriented Neuro Moving all extremities, no focal deficits Psych Appropriate mood and affect HEENT EOMI, conjunctiva pink Cardio Regular rate and rhythm Pulm Breathing comfortably on room air no increased work of breathing. GI soft, non-distended, mildly tender Skin Incisions clean,dry, intact, with herminia in place no erythema, no drainage Drains Drains in place with thin serosanguineous output Extremities Warm, well perfused, No edema Labs: Lab Results Component Value Date WBC 7.2 05/15/2024 HGB 11.2 (L) 05/15/2024 HCT 32.9 (L) 05/15/2024 MCV 83.1 05/15/2024 LABPLAT 286 05/15/2024 Chemistry Lab Results Component Value Date SODIUM 132 (L) 05/15/2024 POTASSIUM 3.6 05/15/2024 CHLORIDE 95 (L) 05/15/2024 CO2 29 05/15/2024 ANIONGAP 8 05/15/2024 BUNSER 8 05/15/2024 CREATININE 0.65 05/15/2024 GLUCOSE 125 05/16/2024 CALCIUM 9.4 05/15/2024 BILITOT 0.3 04/16/2024 ALBUMIN 5.3 (H) 04/16/2024 GFRNAA >90 05/15/2024 ALKPHOS 89 04/16/2024 AST 32 04/16/2024 ALT 37 04/16/2024 MAGNESIUM 1.9 05/14/2024 Imaging: CXR 05/17: Lung volumes are small. Mild bibasilar atelectasis again noted. No focal consolidation orpulmonary edema seen. There may be a small right basilar pleural effusion, unchanged. No pneumothorax seen. Cardiomediastinal silhouette stable. ASSESSMENT/PLAN: 68 y.o. F with PSHx Whipple, HLD, HTN, s/p open AWR w/ B/L TAR on 05/11 05/18: Remove JAIME drains. Plan to discharge to SNF today. Neuro/Pain - Pain is well controlled on current regimen. Continue Tylenol, IV Dilaudid, and Oxycodone CV - Remains hemodynamically stable. Continue monitoring, no telemetry. Resume/continue home calcium channel ashley, HCTZ for home HTN Pulm - No post-op respiratory insufficiency, stable on RA, cont Q1H incentive spirometry. FEN - heplock IVF, fluid and electrolyte abnormalities being treated, evaluated or monitored are: no electrolyte disorders GI - Normal post-op bowel function/recovery, Carb consistent diet Renal/ - Cr WNL, adequate UOP. Continue strict I/O. Heme - H/H stable, no transfusion indicated ID - no indication for ABX Endo - DM2, sugars well controlled on SSI MSK - OOB with assist, PT/OT ordered PPX - SQH Dispo - DC to SNF per LUCIO SAENZ (-) for placement Patient d/w Attending Surgeon Dr Smita Yee MD Plastic & Reconstructive Surgery Resident, PGY1 [facility] in [facility] Cosigned by Sabino Luke MD at 05/18/2024 10:27 AM CDT Associated attestation - Sabino Luke MD - 05/18/2024 10:27 AM CDT I have seen and examined the patient on 05/18/24. I agree with the findings and plan of care as documented in the resident's/fellow's note. Patient continues to report some subjective shortness of breath, especially with ambulating. Given her oncologic history and recent surgery, want to rule out a PE. Will plan CT PE protocol, but will need pre-medicated due to itching associated with contrast dye. * Yaw Yee MD - 05/17/2024 9:34 AM CDT [facility] Minimally Invasive Surgery Daily Progress Note SUBJECTIVE: Overnight Events: No acute events overnight Interval History: Patient remains stable. Patient is having appropriate post-surgical pain that is well controlled. No complaints of N/V. Still awaiting bowel function. Patient has been ambulating with shortness of breath. She is passing flatus. She continues to experience tachypnea and SOB with ambulation. Her O2 saturations remain above 96% during these episodes. COVID (-) for placement. OBJECTIVE: Vitals / I/O: 24hr Min/Max: Vitals: 05/17/24 0437 05/17/24 0527 05/17/24 0758 05/17/24 0800 BP: 134/94 141/98 125/92 BP Location: Right arm Left arm Left arm Patient Position: Lying;HOB 30 degrees Pulse: 111 108 112 108 Resp: 19 18 18 Temp: 36.6 ??C (97.9 ??F) 36.7 ??C (98.1 ??F) 36.8 ??C (98.2 ??F) TempSrc: Oral Oral Oral SpO2: 97% 97% 96% Weight: Height: I/O last 3 completed shifts: In: 660 [P.O.:650; I.V.:10] Out: 2133 [Urine:1820; Drains:313] Physical Exam: General NAD, awake, alert, oriented Neuro Moving all extremities, no focal deficits Psych Appropriate mood and affect HEENT EOMI, conjunctiva pink Cardio Regular rate and rhythm Pulm Breathing comfortably on room air no increased work of breathing. GI soft, non-distended, mildly tender Skin Incisions clean,dry, intact, with herminia in place no erythema, no drainage Drains Drains in place with thin serosanguineous output Extremities Warm, well perfused, No edema Labs: Lab Results Component Value Date WBC 7.2 05/15/2024 HGB 11.2 (L) 05/15/2024 HCT 32.9 (L) 05/15/2024 MCV 83.1 05/15/2024 LABPLAT 286 05/15/2024 Chemistry Lab Results Component Value Date SODIUM 132 (L) 05/15/2024 POTASSIUM 3.6 05/15/2024 CHLORIDE 95 (L) 05/15/2024 CO2 29 05/15/2024 ANIONGAP 8 05/15/2024 BUNSER 8 05/15/2024 CREATININE 0.65 05/15/2024 GLUCOSE 125 05/16/2024 CALCIUM 9.4 05/15/2024 BILITOT 0.3 04/16/2024 ALBUMIN 5.3 (H) 04/16/2024 GFRNAA >90 05/15/2024 ALKPHOS 89 04/16/2024 AST 32 04/16/2024 ALT 37 04/16/2024 MAGNESIUM 1.9 05/14/2024 Imaging: No new images to review. ASSESSMENT/PLAN: 68 y.o. F with PSHx Whipple, HLD, HTN, s/p open AWR w/ B/L TAR on 05/11 05/17: Advanced to carb consistent diet. EKG + CXR iso tachycardia and SOB with ambulation. Neuro/Pain - Pain is well controlled on current regimen. Continue Tylenol, IV Dilaudid, and Oxycodone CV - Remains hemodynamically stable. Continue monitoring, no telemetry. Resume/continue home calcium channel ashley, HCTZ for home HTN Pulm - No post-op respiratory insufficiency, stable on RA, cont Q1H incentive spirometry. FEN - heplock IVF, fluid and electrolyte abnormalities being treated, evaluated or monitored are: no electrolyte disorders GI - Normal post-op bowel function/recovery, Carb consistent diet Renal/ - Cr WNL, adequate UOP. Continue strict I/O. Heme - H/H stable, no transfusion indicated ID - WBC 7.9, no indication for ABX Endo - DM2, sugars well controlled on SSI MSK - OOB with assist, PT/OT ordered PPX - SQH Dispo - cont mgmt on RNF, will dc to SNF per PT, COVID (-) for placement Patient d/w Attending Surgeon Dr Smita Yee MD Plastic & Reconstructive Surgery Resident, PGY1 [facility] in [facility] Cosigned by Alonso Conroy MD at 05/19/2024 7:27 AM CDT Associated attestation - Alonso Conroy MD - 05/19/2024 7:27 AM CDT I have seen and examined the patient on 05/17/24. I agree with the findings and plan of care as documented in the resident's/fellow's note. Patient with some worsening subjective shortness of breath but saturating well on room air. Will obtain an EKG. If tachycardia and SOB continue, consider CT PE scan. Alonso Conroy MD Minimally Invasive Surgery [facility] [employer] * Nancy Llamas MD - 05/16/2024 11:52 AM CDT [facility] Minimally Invasive Surgery Daily Progress Note SUBJECTIVE: Overnight Events: No acute events overnight Interval History: Patient remains stable. Patient is having appropriate post-surgical pain that is well controlled. No complaints of N/V.. Still awaiting bowel function. She still has not passed gas. Patient has ambulating without issues. She has been weaned off N/C, breathing on RA. OBJECTIVE: Vitals / I/O: 24hr Min/Max: Temp Min: 36.3 ??C (97.3 ??F) Max: 36.8 ??C (98.2 ??F) Pulse Min: 99 Max: 128 BP Min: 119/84 Max: 152/91 Resp Min: 16 Max: 22 SpO2 Min: 92 % Max: 99 % Vitals: 05/15/24 2351 05/16/24 0344 05/16/24 0520 05/16/24 0830 BP: 120/93 128/95 152/91 119/84 BP Location: Right arm Left arm Right arm Right arm Patient Position: Lying;HOB 30 degrees Lying;HOB 30 degrees Sitting HOB 30 degrees Pulse: 106 99 117 105 Resp: 20 20 18 Temp: 36.3 ??C (97.3 ??F) 36.5 ??C (97.7 ??F) 36.6 ??C (97.9 ??F) TempSrc: Oral Oral Oral SpO2: 99% 99% 94% Weight: Height: I/O last 3 completed shifts: In: 660 [P.O.:650; I.V.:10] Out: 2133 [Urine:1820; Drains:313] Physical Exam: General NAD, awake, alert, oriented Neuro Moving all extremities, no focal deficits Psych Appropriate mood and affect HEENT EOMI, conjunctiva pink Cardio Regular rate and rhythm Pulm Breathing comfortably on room air no increased work of breathing. GI soft, non-distended, mildly tender Skin Incisions clean,dry, intact, with herminia in place no erythema, no drainage Drains Drains in place with thin serosanguineous output Extremities Warm, well perfused, No edema Labs: Lab Results Component Value Date WBC 7.2 05/15/2024 HGB 11.2 (L) 05/15/2024 HCT 32.9 (L) 05/15/2024 MCV 83.1 05/15/2024 LABPLAT 286 05/15/2024 Chemistry Lab Results Component Value Date SODIUM 132 (L) 05/15/2024 POTASSIUM 3.6 05/15/2024 CHLORIDE 95 (L) 05/15/2024 CO2 29 05/15/2024 ANIONGAP 8 05/15/2024 BUNSER 8 05/15/2024 CREATININE 0.65 05/15/2024 GLUCOSE 125 05/16/2024 CALCIUM 9.4 05/15/2024 BILITOT 0.3 04/16/2024 ALBUMIN 5.3 (H) 04/16/2024 GFRNAA >90 05/15/2024 ALKPHOS 89 04/16/2024 AST 32 04/16/2024 ALT 37 04/16/2024 MAGNESIUM 1.9 05/14/2024 Imaging: No new imaging studies available. ASSESSMENT/PLAN: 68 y.o. F with PSHx Whipple, HLD, HTN, s/p open AWR w/ B/L TAR on 05/11 05/16: Now on RA, AROBF. Maintain FLD - if patient has BM, can ADAT. Neuro/Pain - Pain is well controlled on current regimen. Continue Tylenol, IV Dilaudid, and Oxycodone CV - Remains hemodynamically stable. Continue monitoring, no telemetry. Resume/continue home calcium channel ashley, HCTZ for home HTN Pulm - No post-op respiratory insufficiency, stable on RA, cont Q1H incentive spirometry. FEN - heplock IVF, fluid and electrolyte abnormalities being treated, evaluated or monitored are: no electrolyte disorders GI - Normal post-op bowel function/recovery, FLD Renal/ - Cr WNL, adequate UOP. Continue strict I/O. Heme - H/H stable, no transfusion indicated ID - WBC 7.2, no indication for ABX Endo - DM2, sugars well controlled on SSI MSK - OOB with assist, PT/OT ordered PPX - SQH Dispo - cont mgmt on RNF, will dc to SNF per PT Patient d/w Attending Surgeon Dr Smita Alvarez MS4 MIS Surgery Addendum: This note has been written by the medical student under my supervision. I attest I've read it and made the necessary edits. Nancy Haile MD Cosigned by Alonso Conroy MD at 05/16/2024 4:55 PM CDT Associated attestation - Alonso Conroy MD - 05/16/2024 4:55 PM CDT I have seen and examined the patient on 05/16/24. I agree with the findings and plan of care as documented in the resident's/fellow's note. and as discussed with the resident/fellow. Awaiting return of bowel function. Continue fulls in the meantime. Alonso Conroy MD Minimally Invasive Surgery [facility] [employer] * Bessie Menjivar, PT - 05/15/2024 1:00 PM CDT Physical Therapy Physical Therapy Progress Note NOTE: This is a summary note of the grove components of the treatment session. For full details, review chart for all flowsheets documented on by this physical therapy clinician on this date. Vital signs documented in vital signs flowsheet. Care plan progress documented in Care Plan Activity. For questions, please review the treatment team and contact the PT or MANAGER MARKET DEVELOPMENT currently assigned to this patient. If a physical therapy clinician is not assigned to this patient, please call [phone]. 05/15/24 1300 PT Last Visit Session Type Treatment PT Received On 05/15/24 Safe Environment Arm band checked;Patient found standing in room or hallway (Patient ambulating with RN in hallway) Subjective Agreeable to Therapy Family/Caregiver Present No Precautions Precautions Abdominal;Fall risk;BETTY Activity Tolerance Activity Tolerance Comments Inge: hard Pain Assessment Pain Assessment No/denies pain Pain Score 0 - No pain Cognition Arousal/Alertness Alert;Appropriate responses to stimuli Orientation Oriented X4 (person, place, time, situation) Following Commands Follows all commands and directions without difficulty Safety Judgment Good awareness of safety precautions Compliance/Behavior Easy to engage Balance Balance Yes Static Sitting Balance Static Sitting-Balance Support No upper extremity supported;Feet supported Static Sitting-Sitting Surface Chair Static Sitting-Level of Assistance Independent Dynamic Sitting Balance Dynamic Sitting-Balance Support No upper extremity supported;Feet supported Dynamic Sitting-Balance Lateral lean;Forward lean;Reaching for objects Dynamic Sitting-Sitting Surface Chair Dynamic Sitting-Level of Assistance Distant supervision Dynamic Sitting-Comments safety Static Standing Balance Static Standing-Balance Support Bilateral upper extremity supported (WW) Static Standing-Standing Surface Floor Static Standing-Level of Assistance Distant supervision Static Standing-Comment/# of Minutes safety Dynamic Standing Balance Dynamic Standing-Balance Support Bilateral upper extremity supported (WW) Dynamic Standing-Balance Lateral lean;Forward lean Dynamic Standing-Standing Surface Floor Dynamic Standing-Level of Assistance Close supervision Dynamic Standing-Comments safety Bed Mobility Bed Mobility No (Patient found ambulating in hallway with RN) Transfers Transfer Yes Transfer 1 Transfer From 1 Sit Transfer Type 1 To and from Transfer to 1 Stand Technique 1 Sit to stand;Stand to sit Transfer Device 1 Wheeled walker Transfer Level of Assistance 1 Standby Assist Trials/Comments 1 assist for safety Ambulation Ambulation Yes Ambulation 1 Distance (ft) 1 90 (+90) Surface 1 Level tile Device 1 Wheeled walker Assistance 1 Standby Assist Gait: Requires verbal cues to 1 Utilize appropriate gait sequencing;Pace activity;Utilize pursed lip breathing Gait Deviations 1 Ronald - decreased;Posture - flexed;Step length - decreased Ambulation Comments 1 Patient with one standing rest break during ambulation due to increased dyspnea. Stairs Stairs No Stair Comments Deferred this date due to increased resting HR post ambulation. Other Comments Other PT Comments Patient found ambulating with RN in hallway. Once done ambulating patient notablyshort of breath, returned to room for rest break and vitals check prior to attempting stairs. SPO2 WNL however HR resting between 127-130. Stair negotiation deferred this date 2/2 increased resting HR. Basic Mobility - 6 Click How much difficulty does the patient have: Turning over in bed 4 How much difficulty does the patient currently have: Sitting down and standing up from a chair witharms? 3 How much difficulty does the patient have: Moving from lying on back to sitting on the side of the bed? 3 How much difficulty does the patient have: Moving to and from a bed to a chair including wheelchair? 3 How much help does the patient currently need: Walk in hospital room? 3 How much help from another person does the patient currently need: Climbing 3-5 steps with a railing? 2 Total 6 Click Score (range 6-24) 18 Score Interpretation 41.05 Safe Environment End of Therapy Session Safe Environment End of Therapy Session Patient left in recliner;RN notified;Call light within reach;Overbed table within reach Assessment Prognosis Good Problem List Gait deviations;Decreased endurance;Impaired balance;Decreased mobility Plan Plan Continue with current plan;If this is the last note, consider this the discharge summary Recommendation/Plan PT Recommendation/Plan Care Home Facility Patient at high risk for Falls;Readmission;Injury due to reduced functional status Recommend SNF due to Risk of injury at home;Skilled therapy needed to address functional deficits;Skilled therapy needed for patient to return to prior level of independence PT Frequency during current admission 3-5x/wk Treatment/Interventions during current admission Balance Training;Bed mobility;Endurance training;Equipment eval/education;Functional activity;Functional transfer training;Gait training;Neuromuscularre- education;Stair training;Strengthening;Therapeutic activity;Therapeutic exercise;Transfer training PT Equipment Recommended Other (Comment) (to be assessed at next level of care) Progress during current admission Slow progress, decreased activity tolerance PT - Next Appointment 05/18/24 Time Calculation Start Time 1300 Stop Time 1311 Time Calculation (min) 11 min Multi-Disciplinary Problems (from Physical Therapy) Active Problems Problem: Mobility Start Date: 05/12/24 Goal Start Date Expected End Date End Date LTG - Patient will demonstrate functional mobility with the following level of assist: indep 05/12/24 06/12/24 -- Goal Start Date Expected End Date End Date STG - Patient will ambulate 200 ft with LRAD sba 05/12/24 05/26/24 -- Goal Start Date Expected End Date End Date STG - Patient will ascend and descend a flight of stairs sba 05/12/24 05/26/24 -- Problem: Transfers Start Date: 05/12/24 Goal Start Date Expected End Date End Date STG - Patient to transfer to and from sit to supine sba 05/12/24 05/26/24 -- Goal Start Date Expected End Date End Date STG - Patient will transfer sit to and from stand sba 05/12/24 05/26/24 -- * Paula Andersen RN - 05/15/2024 9:23 AM CDT [facility] Oliver[facility] called, spoke to Bessy, unable to accept patient. Addendum 10:45- Spoke to patient and daughter at bedside, additional referrals sent to [facility]. Addendum: 11:34- Mary Jo with [facility], [place], [place] called ([phone]) to see if they had reviewed referral. She will review and call CM back today. * Yaw Yee MD - 05/15/2024 8:39 AM CDT [facility] Minimally Invasive Surgery Daily Progress Note SUBJECTIVE: Overnight Events: No acute events overnight Interval History: Patient remains stable. Patient is having appropriate post-surgical pain that is well controlled. No complaints of N/V.. Still awaiting bowel function. She is not passing flatus but is belching. Patient has ambulating without issues. K 3.0. Mg 1.9. Remains on 1L NC. OBJECTIVE: Vitals / I/O: 24hr Min/Max: Temp Min: 36.5 ??C (97.7 ??F) Max: 36.9 ??C (98.4 ??F) Pulse Min: 97 Max: 134 BP Min: 133/97 Max: 154/98 Resp Min: 15 Max: 22 SpO2 Min: 90 % Max: 99 % Vitals: 05/15/24 0000 05/15/24 0248 05/15/24 0605 05/15/24 0818 BP: 136/90 136/92 133/97 BP Location: Right arm Right arm Right arm Patient Position: Sitting;Reclining Reclining Reclining Pulse: 98 97 106 Resp: 15 16 Temp: 36.5 ??C (97.7 ??F) 36.6 ??C (97.9 ??F) TempSrc: Oral Oral SpO2: 93% 97% 95% 96% Weight: Height: I/O last 3 completed shifts: In: 1830 [P.O.:1820; I.V.:10] Out: 2429 [Urine:2049; Drains:380] Physical Exam: General NAD, awake, alert, oriented Neuro Moving all extremities, no focal deficits Psych Appropriate mood and affect HEENT EOMI, conjunctiva pink Cardio Regular rate and rhythm Pulm Breathing comfortably on 1L NC no increased work of breathing. GI soft, non-distended, mildly tender Skin Incisions clean,dry, intact, with herminia in place no erythema, no drainage Drains Drains in place with serosanguineous output Extremities Warm, well perfused, No edema Labs: Lab Results Component Value Date WBC 7.2 05/14/2024 HGB 11.1 (L) 05/14/2024 HCT 33.4 (L) 05/14/2024 MCV 83.7 05/14/2024 LABPLAT 260 05/14/2024 Chemistry Lab Results Component Value Date SODIUM 133 (L) 05/14/2024 POTASSIUM 3.0 (L) 05/14/2024 CHLORIDE 91 (L) 05/14/2024 CO2 27 05/14/2024 ANIONGAP 15 05/14/2024 BUNSER 7 05/14/2024 CREATININE 0.56 (L) 05/14/2024 GLUCOSE 146 05/15/2024 CALCIUM 9.1 05/14/2024 BILITOT 0.3 04/16/2024 ALBUMIN 5.3 (H) 04/16/2024 GFRNAA >90 05/14/2024 ALKPHOS 89 04/16/2024 AST 32 04/16/2024 ALT 37 04/16/2024 MAGNESIUM 1.9 05/14/2024 Imaging: No imaging studies available. ASSESSMENT/PLAN: 68 y.o. F with PSHx Whipple, HLD, HTN, s/p open AWR w/ B/L TAR on 05/11 05/15: Repleted Mg + K. AROBF. Maintain FLD - if patient has BM, can ADAT. Encourage IS. Neuro/Pain - Pain is well controlled on current regimen. Continue Tylenol, IV Dilaudid, and Oxycodone CV - Remains hemodynamically stable. Continue monitoring, no telemetry. Resume/continue home calcium channel ashley, HCTZ for home HTN Pulm - No post-op respiratory insufficiency, stable on 1L NC, cont Q1H incentive spirometry. FEN - heplock IVF, fluid and electrolyte abnormalities being treated, evaluated or monitored are: Hypokalemia--potassium replacement Hypomagnesemia--replace and monitor GI - Normal post-op bowel function/recovery, FLD Renal/ - Cr WNL, adequate UOP. Continue strict I/O. Heme - H/H stable, no transfusion indicated ID - WBC 7.2, no indication for ABX Endo - DM2, sugars well controlled on SSI MSK - OOB with assist, PT/OT ordered PPX - SQH Dispo - cont mgmt on RNF Patient d/w Attending Surgeon Dr Smita Yee MD Cosigned by Sabino Luke MD at 05/17/2024 6:02 PM CDT Associated attestation - Sabino Luke MD - 05/17/2024 6:02 PM CDT I have seen and examined the patient on 05/15/2024. I agree with the findings and plan of care as documented in the resident's/fellow's note.. * Kriss Angelo, PT - 05/14/2024 9:39 AM CDT Physical Therapy Physical Therapy Progress Note NOTE: This is a summary note of the grove components of the treatment session. For full details, review chart for all flowsheets documented on by this physical therapy clinician on this date. Vital signs documented in vital signs flowsheet. Care plan progress documented in Care Plan Activity. For questions, please review the treatment team and contact the PT or MANAGER MARKET DEVELOPMENT currently assigned to this patient. If a physical therapy clinician is not assigned to this patient, please call [phone]. 05/14/24 0902 PT Last Visit Session Type Treatment PT Received On 05/14/24 Safe Environment Arm band checked;Patient found in supine;Session completed bedside;Gait belt utilized for all out of bed mobility Subjective Agreeable to Therapy Family/Caregiver Present No Precautions Precautions Fall risk;Abdominal Braces/Orthoses Other (abdominal binder) Precaution Comments Instructed in abdominal binder and abdominal precautions. Will benefit from further instruction Activity Tolerance Activity Tolerance Comments INGE: SH Pain Assessment Pain Assessment 0-10 Pain Score 1 Pain Type Surgical pain Pain Location Abdomen Pain Interventions RN Notified;Therapy Cognition Arousal/Alertness Alert;Appropriate responses to stimuli Orientation Oriented X4 (person, place, time, situation) Following Commands Follows all commands and directions without difficulty Safety Judgment Good awareness of safety precautions Compliance/Behavior Easy to engage Static Sitting Balance Static Sitting-Balance Support No upper extremity supported;Feet supported Static Sitting-Sitting Surface Chair Static Sitting-Level of Assistance Distant supervision Static Sitting-Comment/# of Minutes safety Dynamic Sitting Balance Dynamic Sitting-Balance Support No upper extremity supported;Feet supported Dynamic Sitting-Balance Lateral lean;Forward lean;Head control activities (Comment);Trunk control activities Dynamic Sitting-Sitting Surface Chair Dynamic Sitting-Level of Assistance Distant supervision Dynamic Sitting-Comments safety Static Standing Balance Static Standing-Balance Support Bilateral upper extremity supported;No upper extremity supported Static Standing-Standing Surface Floor Static Standing-Level of Assistance Contact guard Static Standing-Comment/# of Minutes steadyinga sist, balnce,sa fety Dynamic Standing Balance Dynamic Standing-Balance Support Bilateral upper extremity supported (WW) Dynamic Standing-Balance (dynamic gait) Dynamic Standing-Standing Surface Floor Dynamic Standing-Level of Assistance Contact guard Dynamic Standing-Comments steadyaxel thelma constantino sa fety Bed Mobility Bed Mobility No (up in chair at beginning and end of session) Transfer 1 Transfer From 1 Sit Transfer Type 1 To and from Transfer to 1 Stand Technique 1 Sit to stand;Stand to sit Transfer Device 1 Wheeled walker Transfer Level of Assistance 1 Contact Guard Assist Trials/Comments 1 steadying thelma constantino s afety Ambulation 1 Distance (ft) 1 90 Surface 1 Level tile Device 1 Wheeled walker Assistance 1 Contact Guard Assist Gait: Requires assist with 1 Maintaining balance Gait: Requires verbal cues to 1 Use assistive device safely;Follow precautions/weight bearing status;Prevent bumping into environmental barriers (avelar/furniture);Utilize appropriate gait sequencing;Improve upright posture;Increase step length;Pace activity;Increase base of support;Utilize pursed lip breathing Gait Deviations 1 Base of support - decreased;Ronald - decreased;Antalgic;Heel strike - decreased;Posture - flexed;Stance time - decreased;Step length - decreased Quality of Gait 1 decreased ronald, flexed posture,d ecreased step length, cues for sequenicng, pacing Ambulation Comments 1 10 M = 30 sec = 0.33 M/sec, indicates high fall risk. Pt also amb on 2 L O2 with all mobility with PT this date Stairs Stairs No Stair Comments Pt with 10 steps into home, unable to assess this date 22/ uanble to amb to stair well and fatigue with amb Basic Mobility - 6 Click How much difficulty does the patient have: Turning over in bed 3 How much difficulty does the patient currently have: Sitting down and standing up from a chair witharms? 3 How much difficulty does the patient have: Moving from lying on back to sitting on the side of the bed? 3 How much difficulty does the patient have: Moving to and from a bed to a chair including wheelchair? 3 How much help does the patient currently need: Walk in hospital room? 3 How much help from another person does the patient currently need: Climbing 3-5 steps with a railing? 2 Total 6 Click Score (range 6-24) 17 Safe Environment End of Therapy Session Safe Environment End of Therapy Session Patient left in recliner;RN notified;Call light within reach;Overbed table within reach;Bed rails up per protocol;Bed in lowest position with wheels locked Assessment Prognosis Good Problem List Gait deviations;Decreased strength;Decreased range of motion;Decreased endurance;Impaired balance;Decreased mobility;Impaired judgement;Decreased safety awareness;Decreased skin integrity;Pain;Edema Barriers to Discharge Current Mobility Status;Decreased caregiver support;Decreased safety awareness Plan Plan Alter current plan;If this is the last note, consider this the discharge summary Plan Comments update dc rec Recommendation/Plan PT Recommendation/Plan Care Home Facility Patient at high risk for Falls;Readmission;Injury due to decreased ability to care for self;Injury due to reduced functional status;Injury due to impaired cognition;Injury due to balance deficits;Injury at home as patient has not returned to prior level of function;Developing impaired skin integrity;Cognitive decline due to decreased social participation;Mismanagement of medications;Prolonged dependence for self care tasks;Developing secondary complications: poor health management Recommend SNF due to Risk of injury at home;Unable to safely care for self in the home;Skilled therapy needed to address care for self in the home;Skilled therapy needed to address functional deficits;Skilled therapy needed for patient to return to prior level of independence PT Frequency during current admission 3-5x/wk Treatment/Interventions during current admission Balance Training;Bed mobility;Endurance training;Functional activity;Functional transfer training;Gait training;Neuromuscular re-education;Positioning;Parent/caregiver training and education;Range of motion;Stair training;Strengthening;Therapeutic activity;Therapeutic exercise;Transfer training PT Equipment Recommended None Progress during current admission Progressing toward goals PT - Next Appointment 05/15/24 Time Calculation Start Time 901 Stop Time 929 Time Calculation (min) 28 min Multi-Disciplinary Problems (from Physical Therapy) Active Problems Problem: Mobility Start Date: 05/12/24 Goal Start Date Expected End Date End Date LTG - Patient will demonstrate functional mobility with the following level of assist: indep 05/12/24 06/12/24 -- Goal Start Date Expected End Date End Date STG - Patient will ambulate 200 ft with LRAD sba 05/12/24 05/26/24 -- Goal Start Date Expected End Date End Date STG - Patient will ascend and descend a flight of stairs sba 05/12/24 05/26/24 -- Problem: Transfers Start Date: 05/12/24 Goal Start Date Expected End Date End Date STG - Patient to transfer to and from sit to supine sba 05/12/24 05/26/24 -- Goal Start Date Expected End Date End Date STG - Patient will transfer sit to and from stand sba 05/12/24 05/26/24 -- * Teresa Belcher, OT - 05/14/2024 8:04 AM CDT Occupational Therapy Occupational Therapy Progress Note NOTE: This is a summary note of the grove components of the treatment session. For full details, review chart for all flowsheets documented on by this occupational therapy clinician on this date. Vitalsigns documented in vital signs flowsheet. Care plan progress documented in Care Plan Activity. For questions, please review the treatment team and contact the occupational therapist currently assigned to this patient. If an occupational therapist is not assigned to this patient, please call [phone]. 05/14/24 0804 General Session Type Treatment OT Received On 05/14/24 Safe Environment Arm band checked;Patient found in supine;Gait belt not utilized, see comment (surgical site) Subjective Agreeable to Therapy Family/Caregiver Present No Precautions Precautions Abdominal;Fall risk;BETTY Braces/Orthoses Other (Abdominal binder) Precaution Comments Verbally reviewed abdominal precautions. Pt verbalized and demonstrated understanding Pain Assessment Pain Assessment No/denies pain Balance Balance Yes Static Sitting Balance Static Sitting-Balance Support Feet supported Static Sitting-Sitting Surface Bed Static Sitting-Level of Assistance Distant supervision Static Sitting-Comment/# of Minutes for safety Dynamic Sitting Balance Dynamic Sitting-Balance Support Feet supported Dynamic Sitting-Balance Lateral lean;Forward lean;Reaching for objects Dynamic Sitting-Sitting Surface Bed Dynamic Sitting-Level of Assistance Distant supervision Dynamic Sitting-Comments for safety Static Standing Balance Static Standing-Balance Support Bilateral upper extremity supported (on WW) Static Standing-Standing Surface Floor Static Standing-Level of Assistance Contact guard Static Standing-Comment/# of Minutes for safety and balance Dynamic Standing Balance Dynamic Standing-Balance Support Bilateral upper extremity supported (on WW) Dynamic Standing-Balance Lateral lean;Forward lean;Reaching for objects Dynamic Standing-Standing Surface Floor Dynamic Standing-Level of Assistance Contact guard Dynamic Standing-Comments for safety and balance ADL ADLS (WDL) X Grooming Grooming: Where assessed Standing at sink Grooming: Level of assistance Contact Guard Assist Grooming: Assistance with Balance;Safety LE Dressing LE Dressing: Where assessed Edge of bed LE Dressing: Level of assistance Minimum Assist LE Dressing: Assistance with Don/doff R sock;Don/doff L sock;Balance;Safety Toileting Toileting: Where assessed Chair (simulated task) Toileting: Level of assistance Contact Guard Assist Toileting: Assistance with Balance;Safety Room Mobility Room Mobility: Where assessed bed -> sink -> chair Health Management: Equipment Walker Room Mobility: Level of Assistance Contact Guard Assist Room Mobility comment for safety and balance Bed Mobility Bed Mobility Yes Bed Mobility 1 Bed Mobility From 1 Supine Bed Mobility Type 1 To Bed Mobility to 1 Edge of bed Level of Assistance 1 Minimum Assist Bed Mobility Comments 1 via logroll; assist for force production and LE management Transfers Transfer Yes Transfer 1 Transfer From 1 Sit Transfer Type 1 To and from Transfer to 1 Stand Technique 1 Sit to stand;Stand to sit Transfer Device 1 Wheeled walker Transfer Level of Assistance 1 Contact Guard Assist Trials/Comments 1 for safety and balance Toilet Transfers Toilet Transfer From Bed Toilet Transfer Type To Toilet Transfer to Standard bedside commode (simulated with chair) Toilet Transfer Technique Ambulating Toilet Transfer: Equipment Wheeled walker Toilet Transfers Contact guard Toilet Transfers Comments for safety and balance Cognition Arousal/Alertness Alert;Appropriate responses to stimuli Attention Span Appears intact Memory Appears intact Current communication Appears Intact Orientation Oriented X4 (person, place, time, situation) Following Commands Follows all commands and directions without difficulty Safety Judgment Good awareness of safety precautions Awareness of Errors Good awareness of errors made Insight Fully aware of deficits Problem Solving Able to problem solve independently Compliance/Behavior Easy to engage Perseveration Not present Other Comments Comments Pt requires increased time for all mobility tasks 2/2 anxiety. Pt educated on pursed lip breathing technique to control respirations. Daily Activity - 6 Clicks Putting on and taking off regular lower body clothing 3 Bathing 3 Toileting 3 Putting on and taking off upper body clothing 3 Personal Grooming 3 Eating Meals 4 Total Score (range 6-24) 19 Score Interpretation 40.22 Safe Environment End of Therapy Session Safe Environment End of Therapy Session Patient left in recliner;RN notified;Call light within reach;Overbed table within reach Assessment Problem List Decreased endurance;Decreased balance;Decreased functional mobility;Decreased ADL independence;Decreased IADL independence Barriers to Discharge Current Mobility Status;Current ADL Status;Decreased caregiver support Plan Plan Continue with current plan;If this is the last note, consider this the discharge summary Recommendation/Plan OT Recommendation Care Home Facility Patient at high risk for Falls;Readmission;Injury due to decreased ability to care for self;Injury due to reduced functional status;Injury due to balance deficits;Injury at home as patient has not returned to prior level of function Recommend SNF due to Risk of injury at home;Unable to safely care for self in the home;Skilled therapy needed to address care for self in the home;Skilled therapy needed to address functional deficits;Skilled therapy needed for patient to return to prior level of independence OT Frequency during current admission 3-5x/wk Treatment/Interventions during current admission ADL/IADL retraining;Balance Training;Bed mobility;Compensatory technique education;Endurance training;Functional activity;Functional mobility training;Functional transfer training;Relaxation techniques;Strengthening;Therapeutic activity;Therapeutic ex ercise;Transfer training Progress during current admission Progressing toward goals OT - Next Appointment 05/18/24 Time Calculation Start Time 803 Stop Time 830 Time Calculation (min) 27 min Multi-Disciplinary Problems (from Occupational Therapy) Active Problems Problem: Dressings Lower Extremities Start Date: 05/12/24 Goal Start Date Expected End Date End Date STG - Patient to complete lower body dressing with SBA 05/12/24 05/19/24 -- Problem: Grooming Start Date: 05/12/24 Goal Start Date Expected End Date End Date STG - Patient will complete grooming standing with SBA 05/12/24 05/19/24 -- Problem: Toileting Start Date: 05/12/24 Goal Start Date Expected End Date End Date STG - Patient will complete toileting on toilet with SBA 05/12/24 05/19/24 -- Problem: Precautions Start Date: 05/12/24 Goal Start Date Expected End Date End Date STG - Patient will demonstrate precautions consistently during ADL tasks/functional mobility. 05/12/24 05/19/24 -- Problem: OT Misc Start Date: 05/12/24 Goal Start Date Expected End Date End Date Pt will complete all ADLs with supervision 05/12/24 05/19/24 -- * Yaw Yee MD - 05/14/2024 7:10 AM CDT [facility] Daily Progress Note SUBJECTIVE: Overnight Events: No acute events overnight Interval History: Patient remains stable. Patient is having appropriate post-surgical pain that is well controlled. No complaints of N/V.. Still awaiting bowel function. She is not passing flatus but is belching. Patient has ambulating without issues. Patient continues to have episodes of anxiety associated with ambulating. She does not have shortness SOB or chest pain during these episodes. OBJECTIVE: Vitals / I/O: 24hr Min/Max: Temp Min: 36.5 ??C (97.7 ??F) Max: 37.2 ??C (99 ??F) Pulse Min: 97 Max: 121 BP Min: 135/82 Max: 146/92 Resp Min: 20 Max: 22 SpO2 Min: 94 % Max: 98 % Vitals: 05/13/24 1945 05/14/24 0000 05/14/24 0410 05/14/24 0527 BP: 135/82 140/94 139/89 144/99 BP Location: Left arm Left arm Left arm Patient Position: HOB 30 degrees HOB 30 degrees HOB 30 degrees Pulse: 97 99 102 121 Resp: 20 22 Temp: 36.7 ??C (98.1 ??F) 36.8 ??C (98.2 ??F) 36.5 ??C (97.7 ??F) TempSrc: Oral Oral Oral SpO2: 95% 98% 96% Weight: Height: I/O last 3 completed shifts: In: 2389.3 [P.O.:956; I.V.:1433.3] Out: 1969 [Urine:1400; Drains:570] Physical Exam: General NAD, awake, alert, oriented Neuro Moving all extremities, no focal deficits Psych Appropriate mood and affect HEENT EOMI, conjunctiva pink Cardio Regular rate and rhythm Pulm Breathing comfortably on 2L NC no increased work of breathing. GI soft, non-distended, mildly tender Skin Incisions clean,dry, intact, with herminia in place no erythema, no drainage Drains Drains in place with serosanguineous output Extremities Warm, well perfused, No edema Labs: Lab Results Component Value Date WBC 9.0 05/14/2024 HGB 10.6 (L) 05/14/2024 HCT 32.3 (L) 05/14/2024 MCV 85.2 05/14/2024 LABPLAT 206 05/14/2024 Chemistry Lab Results Component Value Date SODIUM 136 05/14/2024 POTASSIUM 3.9 05/14/2024 CHLORIDE 99 05/14/2024 CO2 32 05/14/2024 ANIONGAP 5 05/14/2024 BUNSER 7 05/14/2024 CREATININE 0.55 (L) 05/14/2024 GLUCOSE 119 05/14/2024 CALCIUM 9.0 05/14/2024 BILITOT 0.3 04/16/2024 ALBUMIN 5.3 (H) 04/16/2024 GFRNAA >90 05/14/2024 ALKPHOS 89 04/16/2024 AST 32 04/16/2024 ALT 37 04/16/2024 MAGNESIUM 2.3 05/14/2024 Imaging: No imaging studies available. ASSESSMENT/PLAN: 68 y.o. F with PSHx Whipple, HLD, HTN, s/p open AWR w/ B/L TAR on 05/11 05/14: AROBF. Increase Alprazolam to 0.5mg TID PRN. Encourage IS. Neuro/Pain - Pain is well controlled on current regimen. Continue RADIATION THERAPIST CV - Remains hemodynamically stable. Continue monitoring, no telemetry. Resume/continue home calcium channel ashley, HCTZ for home HTN Pulm - No post-op respiratory insufficiency, stable on 2L NC, cont Q1H incentive spirometry. FEN - heplock IVF, fluid and electrolyte abnormalities being treated, evaluated or monitored are: No fluid or electrolyte disorders GI - Normal post-op bowel function/recovery, FLD Renal/ - Cr WNL, adequate UOP. Continue strict I/O., DC wiggins (05/13_ Heme - H/H stable, no transfusion indicated ID - WBC 9.0, no indication for ABX Endo - DM2, sugars well controlled on SSI MSK - OOB with assist, PT/OT ordered PPX - SQH Dispo - cont mgmt on RNF Patient d/w Attending Surgeon Dr Smita Yee MD Cosigned by Sabino Luke MD at 05/17/2024 6:03 PM CDT * Yaw Yee MD - 05/13/2024 11:01 AM CDT [facility] Daily Progress Note SUBJECTIVE: Overnight Events: No acute events overnight Interval History: Patient remains stable. Patient is having appropriate post-surgical pain that is well controlled. No complaints of N/V.. Still awaiting bowel function. Patient has ambulating without issues. Requested home Xanax (takes 1mg nightly). Given 0.5mg nightly PRN. CXR this AM with underexpanded lungs with mild bilateral atelectasis. OBJECTIVE: Vitals / I/O: 24hr Min/Max: Temp Min: 36.6 ??C (97.9 ??F) Max: 37.2 ??C (99 ??F) Pulse Min: 99 Max: 118 BP Min: 128/78 Max: 159/100 Resp Min: 18 Max: 20 SpO2 Min: 91 % Max: 96 % Vitals: 05/12/24 2015 05/12/24 2340 05/13/24 0415 05/13/24 0827 BP: 143/91 130/92 151/92 144/93 BP Location: Right arm Right arm Patient Position: Sitting Pulse: 113 99 99 106 Resp: 20 20 20 20 Temp: 36.8 ??C (98.2 ??F) 36.8 ??C (98.2 ??F) 36.7 ??C (98.1 ??F) 37.2 ??C (99 ??F) TempSrc: Oral Oral Oral Oral SpO2: 93% 96% 94% 94% Weight: Height: I/O last 3 completed shifts: In: 4886.7 [P.O.:1420; I.V.:3466.7] Out: 1878 [Urine:1185; Drains:693] Physical Exam: General NAD, awake, alert, oriented Neuro Moving all extremities, no focal deficits Psych Appropriate mood and affect HEENT EOMI, conjunctiva pink Cardio Regular rate and rhythm Pulm Breathing comfortably on 1L NC no increased work of breathing. GI soft, non-distended, mildly tender Skin Incisions clean,dry, intact, with herminia in place no erythema, no drainage Drains Drains in place with serosanguineous output Extremities Warm, well perfused, No edema Labs: Lab Results Component Value Date WBC 10.9 (H) 05/12/2024 HGB 11.3 (L) 05/12/2024 HCT 34.9 (L) 05/12/2024 MCV 86.8 05/12/2024 LABPLAT 216 05/12/2024 Chemistry Lab Results Component Value Date SODIUM 139 05/12/2024 POTASSIUM 3.4 05/12/2024 CHLORIDE 101 05/12/2024 CO2 30 05/12/2024 ANIONGAP 8 05/12/2024 BUNSER 9 05/12/2024 CREATININE 0.68 05/12/2024 GLUCOSE 167 05/13/2024 CALCIUM 8.7 05/12/2024 BILITOT 0.3 04/16/2024 ALBUMIN 5.3 (H) 04/16/2024 GFRNAA >90 05/12/2024 ALKPHOS 89 04/16/2024 AST 32 04/16/2024 ALT 37 04/16/2024 MAGNESIUM 2.1 05/12/2024 Imaging: No imaging studies available. ASSESSMENT/PLAN: 68 y.o. F with PSHx Whipple, HLD, HTN, s/p open AWR w/ B/L TAR on 05/11 05/13: ADAT -> full liquids. Transition from RADIATION THERAPIST to oral pain regiment.. Restarted home HCTZ 25mgqAM. Discontinue wiggins. Neuro/Pain - Pain is well controlled on current regimen. Continue RADIATION THERAPIST CV - Remains hemodynamically stable. Continue monitoring, no telemetry. Resume/continue home calcium channel ashley, HCTZ for home HTN Pulm - No post-op respiratory insufficiency, stable on 1L NC, cont Q1H incentive spirometry. FEN - heplock IVF, fluid and electrolyte abnormalities being treated, evaluated or monitored are: No fluid or electrolyte disorders GI - Normal post-op bowel function/recovery, FLD Renal/ - Cr WNL, adequate UOP. Continue strict I/O., DC wiggnis (05/13_ Heme - H/H stable, no transfusion indicated ID - WBC 10.9, no indication for ABX Endo - DM2, sugars well controlled on SSI MSK - OOB with assist, PT/OT ordered PPX - SQH Dispo - cont mgmt on RNF Patient d/w Attending Surgeon Dr Smita Yee MD Cosigned by Sabino Luke MD at 05/17/2024 6:04 PM CDT * Viridiana Hearn - 05/12/2024 2:46 PM CDT Occupational Therapy Evaluation Note NOTE: This is a summary note of the grove components of the evaluation session. For full details, review chart for all flowsheets documented on by this occupational therapy clinician on this date. Vital signs are documented in vital signs flowsheet. For questions, please review the treatment team and contact the occupational therapist currently assigned to this patient. If an occupational therapist is not assigned to this patient, please call [phone]. 05/12/24 144 General Chart Reviewed Yes Session Type Evaluation OT Received On 05/12/24 Safe Environment Arm band checked;Patient found sitting at edge of bed;Gait belt not utilized, see comment (dt surgical incision) Subjective Agreeable to Therapy Family/Caregiver Present Yes () Occupational Therapy-Patient Goal Agreeable to POC Precautions Precautions Abdominal;Fall risk Braces/Orthoses Other (abdominal binder) Precaution Comments Pt. education on abdominal precautions. Pt verbalized understanding Home Living Type of Home House Home Layout One level Home Access Stairs to enter with rails Entrance Stairs-Rails Both Entrance Stairs-Number of Steps 10 Bathroom Shower/Tub Tub/shower unit Bathroom Toilet Standard Home Mobility Equipment-Available Walker;Single point cane Home Mobility Equipment-Currently Using None (uses cart for community outings) Home ADL Equipment-Available None Home ADL Equipment-Currently Using None Prior Function Level of [place] Independent with ADLs;Independent functional transfers;Independent with ambulation Lives With Spouse Receives Help From Spouse/Significant other ( in mornings, daughter/sister as needed) Driving Yes ADL Assistance Independent Instrumental ADL (IADL) Assistance Independent Vocational/Occupation Retired Fall within the last 6 months No ADL ADLS (WDL) X Grooming Grooming: Where assessed Other (Comment) (Sitting in recliner. Baseline standing) Grooming: Level of assistance Moderate Assist (dt sitting) LE Dressing LE Dressing: Where assessed Sitting LE Dressing: Level of assistance Moderate Assist (attempted figure-4 technique. unable to perform dt pain, faitgue, and drowziness) LE Dressing: Assistance with Safety (Min A balance, Dependent task) Toilet Transfers Toilet Transfer From Bed Toilet Transfer Type To Toilet Transfer to Standard bedside commode (simulated) Toilet Transfer Technique Stand and Step Toilet Transfer: Equipment Hand hold Toilet Transfers Minimal assistance Toilet Transfers Comments assist for force production to rise, steading assist when steping to chair, assist to control decent and verbal cues for hand placement on recliner Pain Assessment Pain Assessment 0-10 Pain Score 8 Pain Interventions RN Notified Cognition Overall Cognitive Status WFL Arousal/Alertness Alert;Appropriate responses to stimuli Attention Span Appears intact Memory Appears intact Current communication Appears Intact Orientation Oriented X4 (person, place, time, situation) Following Commands Follows all commands and directions without difficulty Safety Judgment Good awareness of safety precautions Awareness of Errors Good awareness of errors made Insight Fully aware of deficits Problem Solving Able to problem solve independently Compliance/Behavior Easy to engage Perseveration Not present Cognitive Tests Cognitive Tests Yes Short Blessed Test What year is it now? 0 What month is it now? 0 Repeat this name and address after me Lionel Camarena [address] [place] [address] Without looking at the clock, tell me what time it is 3 Count aloud backwards from 20-1 0 Say the months of the year backwards in reverse order 0 Repeat the name and address I asked you to remember 0 Short Blessed Total Score 3 Balance Tests Balance Tests Yes [place] Sitting Balance 1 Arises 1 Attempts to Arise 2 Immediate Standing Balance (First 5 Seconds) 1 Standing Balance 1 Nudged 1 Eyes Closed 0 Turned 360 Degrees: Steadiness 0 Turned 360 Degrees: Continuity of Steps 0 Sitting Down 1 Balance Score 8 Balance Balance Yes Static Sitting Balance Static Sitting-Balance Support Feet supported Static Sitting-Sitting Surface Bed Static Sitting-Level of Assistance Distant supervision Static Sitting-Comment/# of Minutes safety Dynamic Sitting Balance Dynamic Sitting-Balance Support Feet supported Dynamic Sitting-Balance Lateral lean;Forward lean Dynamic Sitting-Sitting Surface Chair Dynamic Sitting-Level of Assistance Distant supervision Dynamic Sitting-Comments safety Static Standing Balance Static Standing-Balance Support Bilateral upper extremity supported Static Standing-Standing Surface Floor Static Standing-Level of Assistance Minimum assistance Static Standing-Comment/# of Minutes steadying assist, balance, safety Dynamic Standing Balance Dynamic Standing-Balance Support Bilateral upper extremity supported Dynamic Standing-Balance Lateral lean;Forward lean Dynamic Standing-Standing Surface Floor Dynamic Standing-Level of Assistance Minimum assistance Dynamic Standing-Comments steadying assist, balance, safety Bed Mobility Bed Mobility No Transfers Transfer Yes Transfer 1 Transfer From 1 Sit Transfer Type 1 To Transfer to 1 Stand Technique 1 Sit to stand Transfer Device 1 Hand held assist Transfer Level of Assistance 1 Minimum Assist Trials/Comments 1 assist for force produciton, steadying assist for balance intitally upon standing Transfers 2 Transfer From 2 Bed Transfer Type 2 To Transfer to 2 Chair with arms Technique 2 Ambulation Transfer Device 2 Hand held assist Transfer Level of Assistance 2 Minimum Assist Trials/Comments 2 for balance, safety, and steadying support RUE Assessment RUE Assessment WFL LUE Assessment LUE Assessment WFL Daily Activity - 6 Clicks Putting on and taking off regular lower body clothing 2 Bathing 3 Toileting 3 Putting on and taking off upper body clothing 3 Personal Grooming 3 Eating Meals 4 Total Score (range 6-24) 18 Score Interpretation 38.66 Safe Environment End of Therapy Session Safe Environment End of Therapy Session Patient left in recliner;RN notified;Call light within reach;Overbed table within reach Assessment Problem List Decreased endurance;Decreased balance;Decreased functional mobility;Decreased ADL independence;Decreased IADL independence;Pain Barriers to Discharge Current Mobility Status;Current ADL Status;Decreased caregiver support Plan Plan Plan of care initiated;If this is the last note, consider this the discharge summary Recommendation/Plan OT Recommendation Care Home Facility Patient at high risk for Falls;Injury due to decreased ability to care for self;Injury due to reduced functional status;Injury due to balance deficits;Injury at home as patient has not returned to prior level of function Recommend SNF due to Skilled therapy needed for patient to return to prior level of independence;Skilled therapy needed to address functional deficits;Skilled therapy needed to address care for self in the home;Unable to safely care for self in the home;Risk of injury at home OT Frequency during current admission 3-5x/wk Treatment/Interventions during current admission ADL/IADL retraining;Balance Training;Bed mobility;Functional activity;Functional mobility training;Functional transfer training;Transfer training OT - Next Appointment 05/13/24 OT - OK to Discharge No OT Evaluation Complete Yes Time Calculation Start Time 1446 Stop Time 1520 Time Calculation (min) 34 min Multi-Disciplinary Problems (from Occupational Therapy) Active Problems Problem: Dressings Lower Extremities Start Date: 05/12/24 Goal Start Date Expected End Date End Date STG - Patient to complete lower body dressing with Sebastian 05/12/24 05/19/24 -- Problem: Grooming Start Date: 05/12/24 Goal Start Date Expected End Date End Date STG - Patient will complete grooming with Sebastian 05/12/24 05/19/24 -- Problem: Toileting Start Date: 05/12/24 Goal Start Date Expected End Date End Date STG - Patient will complete toilet tasks with Sebastian 05/12/24 05/19/24 -- Problem: Transfers Start Date: 05/12/24 Goal Start Date Expected End Date End Date STG - Patient will perform toilet transfer with Sebastian 05/12/24 05/19/24 -- Problem: Precautions Start Date: 05/12/24 Goal Start Date Expected End Date End Date STG - Patient will demonstrate precautions consistently during ADL tasks/functional mobility. 05/12/24 05/19/24 -- Problem: OT Misc Start Date: 05/12/24 Goal Start Date Expected End Date End Date Pt to complete all ADLs with Ariella 05/12/24 05/19/24 -- Cosigned by Manisha Bourne OT at 05/12/2024 4:15 PM CDT * Kriss Angelo, PT - 05/12/2024 10:17 AM CDT Physical Therapy Physical Therapy Evaluation Note NOTE: This is a summary note of the grove components of the evaluation session. For full details, review chart for all flowsheets documented on by this physical therapy clinician on this date. Vital signs are documented in the vital signs flowsheet. For questions, please review the treatment team and contact the PT or MANAGER MARKET DEVELOPMENT currently assigned to this patient. If a physical therapy clinician is not assigned to this patient, please call [phone]. 05/12/24 0815 General Chart Reviewed Yes Session Type Evaluation PT Received On 05/12/24 Safe Environment Arm band checked;Patient found in supine;Session completed bedside;Gait belt utilized for all out of bed mobility Subjective Agreeable to Therapy Family/Caregiver Present No Physical Therapy-Patient Goal to go home Precautions Precautions Fall risk;Abdominal Braces/Orthoses Other (abdominal binder) Precaution Comments Instructed in abodminal precuations. Demoes understnading with Cues. Will benefit from [id number] of educaiton Home Living Type of Home House Home Layout One level;Able to live on main level with bedroom/bathroom;Basement Home Access Stairs to enter with rails Entrance Stairs-Rails Both Entrance Stairs-Number of Steps 10 Bathroom Equipment Other (Comment) (none) Home Mobility Equipment-Available Wheeled walker;Single point cane;Scooter Home Mobility Equipment-Currently Using None Prior Function Level of [place] Independent with ADLs;Independent with ambulation;Independent functional transfers;Independent with homemaking with ambulation Lives With Spouse Receives Help From Spouse/Significant other;Family;wardrobe attendant (dtr paid cg 4 hrs/day, 4 day/wk, spouse, family FT assist) Driving Yes Vocational/Occupation Retired Fall within the last 6 months No Activity Tolerance Activity Tolerance Comments INGE: Hard Pain Assessment Pain Assessment 0-10 Pain Score 7 Pain Type Surgical pain Pain Location Abdomen Pain Interventions RN Notified;Therapy Cognition Arousal/Alertness Appropriate responses to stimuli;Alert Orientation Oriented X4 (person, place, time, situation) Following Commands Follows all commands and directions without difficulty Safety Judgment Decreased awareness of need for assistance Compliance/Behavior Easy to engage Balance Tests Balance Tests Yes [place] Balance Scale 1. Sitting to Standing 1 2. Standing Unsupported 0 3. Sitting with Back Unsupported but Feet Supported on Floor or on a Stool 4 4. Standing to Sitting 0 5. Transfers 1 6. Standing Unsupported with Eyes Closed 0 7. Standing Unsupported with Feet Together 0 8. Reach Forward with Outstretched Arm While Standing 0 9. Crematory Attendant Object from Floor from a Standing Position 0 10. Turning to Look Behind Over Left and Right Shoulders While Standing 0 11. Turn [address] Altern[address] Foot on Step or Stool While Standing Unsupported 0 13. Standing Unsupported One Foot in Front 0 14. Standing on One Leg 0 [place] Balance Score 6 Balance Balance Yes Static Sitting Balance Static Sitting-Balance Support No upper extremity supported;Feet supported Static Sitting-Sitting Surface Bed Static Sitting-Level of Assistance Distant supervision Static Sitting-Comment/# of Minutes safety Dynamic Sitting Balance Dynamic Sitting-Balance Support No upper extremity supported;Feet supported Dynamic Sitting-Balance Lateral lean;Forward lean;Head control activities (Comment);Trunk control activities Dynamic Sitting-Sitting Surface Bed Dynamic Sitting-Level of Assistance Distant supervision Dynamic Sitting-Comments safety Static Standing Balance Static Standing-Balance Support Bilateral upper extremity supported (WW) Static Standing-Standing Surface Floor Static Standing-Level of Assistance Minimum assistance Static Standing-Comment/# of Minutes steadyinga ssist, balance,s afety Dynamic Standing Balance Dynamic Standing-Balance Support Bilateral upper extremity supported (WW) Dynamic Standing-Balance (dynamic gait) Dynamic Standing-Standing Surface Floor Dynamic Standing-Level of Assistance Minimum assistance Dynamic Standing-Comments steayding assist, flaca renee Bed Mobility 1 Bed Mobility From 1 Supine Bed Mobility Type 1 To and from Bed Mobility to 1 Edge of bed Level of Assistance 1 Minimum Assist Bed Mobility Comments 1 assist for log roll, trunk eelvaiton, LEs off EOB Transfer 1 Transfer From 1 Sit Transfer Type 1 To and from Transfer to 1 Stand Technique 1 Sit to stand;Stand to sit Transfer Device 1 Wheeled walker Transfer Level of Assistance 1 Minimum Assist Trials/Comments 1 assist for force connie houston s teayding assist, balance intiiatlly upon stanidng, performed x 3 reps Ambulation 1 Distance (ft) 1 15 (15 ft x2) Surface 1 Level tile Device 1 Wheeled walker Assistance 1 Minimum Assist Gait: Requires assist with 1 Maintaining balance Gait: Requires verbal cues to 1 Utilize pursed lip breathing;Pace activity;Increase base of support;Increase step length;Improve upright posture;Utilize appropriate gait sequencing;Prevent bumping into environmental barriers (avelar/furniture);Follow precautions/weight bearing status;Use assistive device safely Gait Deviations 1 Base of support - decreased;Ronald - decreased;Antalgic;Heel strike - decreased;Posture - flexed;Stance time - decreased;Step length - decreased;Turns - difficulty Quality of Gait 1 decreased ronald, flexed posture, decreased step length, cues for paicng self, Ambulation Comments 1 noted blurry vision and dizziness iwth amb, did not resolve with sitting. returned to supine 2/2 to this. BRAILLE TRANSCRIBER made aware Stairs Stairs No RUE Assessment RUE Assessment WFL LUE Assessment LUE Assessment WFL RLE Assessment RLE Assessment WFL LLE Assessment LLE Assessment WFL Basic Mobility - 6 Click How much difficulty does the patient have: Turning over in bed 3 How much difficulty does the patient currently have: Sitting down and standing up from a chair witharms? 3 How much difficulty does the patient have: Moving from lying on back to sitting on the side of the bed? 3 How much difficulty does the patient have: Moving to and from a bed to a chair including wheelchair? 3 How much help does the patient currently need: Walk in hospital room? 3 How much help from another person does the patient currently need: Climbing 3-5 steps with a railing? 2 Total 6 Click Score (range 6-24) 17 Safe Environment End of Therapy Session Safe Environment End of Therapy Session Patient left supine in bed;RN notified;Call light within reach;Overbed table within reach;Bed in lowest position with wheels locked;Bed rails up per protocol Assessment Prognosis Good Problem List Gait deviations;Decreased strength;Decreased range of motion;Decreased endurance;Impaired balance;Decreased mobility;Impaired judgement;Decreased safety awareness;Decreased skin integrity;Pain;Edema Problem List Comments PT Diagnosis: Pt presents with REPAIR INCISIONAL HERNIA RECONSTRUCTION ABDOMINAL WALL PMH: HTN, T2DM, asthma, BETTY, pancreatic cancer w/mets to liver (s/p whipple, radiation and chemo), anxiety, derpession, HLD, OA, hyperthyroidism results in above listed activity deficits and impairments which prevent full participation in home and community mobility. Barriers to Discharge Current Mobility Status;Decreased caregiver support;Decreased safety awareness Plan Plan Plan of care initiated;If this is the last note, consider this the discharge summary Recommendation/Plan PT Recommendation/Plan Inpatient Rehab Facility Patient at high risk for Falls;Readmission;Injury due to decreased ability to care for self;Injury due to reduced functional status;Injury due to impaired cognition;Injury due to balance deficits;Injury at home as patient has not returned to prior level of function;Developing impaired skin integrity;Cognitive decline due to decreased social participation;Mismanagement of medications;Prolonged dependence for self care tasks;Developing secondary complications: poor health management Recommend Inpatient Rehab/Acute Rehab due to Ability to actively participate in intensive therapy 3hours/day, 5 days/week or 900 minutes per week;Highly motivated to participate in therapy;Not at baseline due to impaired ability to complete ADLs;Impaired ability to complete functional mobility;Likely to return to the community at discharge with support system in place;Requires greater than 25% physical assistance with most mobility tasks;Requires greater than 25% physical assistance with most ADL tasks;Requires multiple therapy disciplines to address functional deficits;Patient and caregiverrequire specialized skilled training due to new level of function/diagnosis;Requires skilled therapy interventions to address neurological deficits PT Frequency during current admission 3-5x/wk Treatment/Interventions during current admission Balance Training;Bed mobility;Endurance training;Functional activity;Functional transfer training;Gait training;Neuromuscular re-education;Positioning;Parent/caregiver training and education;Range of motion;Stair training;Strengthening;Therapeutic activity;Therapeutic exercise;Transfer training PT - Next Appointment 05/13/24 PT - OK to Discharge No PT Evaluation Complete Yes Time Calculation Start Time 0815 Stop Time 0855 Time Calculation (min) 40 min Multi-Disciplinary Problems (from Physical Therapy) Active Problems Problem: Mobility Start Date: 05/12/24 Goal Start Date Expected End Date End Date LTG - Patient will demonstrate functional mobility with the following level of assist: 05/12/24 05/19/24 -- Goal Start Date Expected End Date End Date STG - Patient will ambulate 05/12/24 05/19/24 -- Goal Start Date Expected End Date End Date STG - Patient will ascend and descend a flight of stairs 05/12/24 05/19/24 -- Problem: Transfers Start Date: 05/12/24 Goal Start Date Expected End Date End Date STG - Patient to transfer to and from sit to supine 05/12/24 05/19/24 -- Goal Start Date Expected End Date End Date STG - Patient will transfer sit to and from stand 05/12/24 05/19/24 -- * Yaw Yee MD - 05/12/2024 6:42 AM CDT [facility] Daily Progress Note SUBJECTIVE: Overnight Events: No acute events overnight Interval History: Patient remains stable. Patient is having appropriate post-surgical pain that is well controlled. No complaints of N/V.. Still awaiting bowel function. Patient has ambulating without issues. UOP low post-operatively 235cc. OBJECTIVE: Vitals / I/O: 24hr Min/Max: Temp Min: 36.4 ??C (97.5 ??F) Max: 37.1 ??C (98.8 ??F) Pulse Min: 65 Max: 95 BP Min: 116/82 Max: 133/86 Resp Min: 11 Max: 23 SpO2 Min: 94 % Max: 100 % Vitals: 05/11/24 2334 05/11/24 2335 05/12/24 0214 05/12/24 0548 BP: 120/90 126/84 126/77 BP Location: Right arm Patient Position: Lying Pulse: 95 93 90 Resp: 20 20 Temp: 37 ??C (98.6 ??F) 37.1 ??C (98.7 ??F) TempSrc: Oral Oral SpO2: 98% 94% Weight: 70.8 kg (156 lb) Height: 157.5 cm (5' 2 ) I/O last 3 completed shifts: In: 2600 [I.V.:2600] Out: 330 [Urine:175; Drains:55; Blood:100] Physical Exam: General NAD, awake, alert, oriented Neuro Moving all extremities, no focal deficits Psych Appropriate mood and affect HEENT EOMI, conjunctiva pink Cardio Regular rate and rhythm Pulm Breathing comfortably on 2L NC no increased work of breathing. GI soft, non-distended, mildly tender Skin Incisions clean,dry, intact, with Dermabond in place no erythema, no drainage Drains Drains in place with serosanguineous output Extremities Warm, well perfused, No edema Labs: Lab Results Component Value Date WBC 16.5 (H) 05/11/2024 HGB 12.3 05/11/2024 HCT 38.3 05/11/2024 MCV 85.5 05/11/2024 LABPLAT 251 05/11/2024 Chemistry Lab Results Component Value Date SODIUM 142 05/11/2024 POTASSIUM 3.5 05/11/2024 CHLORIDE 102 05/11/2024 CO2 27 05/11/2024 ANIONGAP 13 05/11/2024 BUNSER 14 05/11/2024 CREATININE 0.81 05/11/2024 GLUCOSE 159 05/11/2024 CALCIUM 8.6 05/11/2024 BILITOT 0.3 04/16/2024 ALBUMIN 5.3 (H) 04/16/2024 GFRNAA 78 05/11/2024 ALKPHOS 89 04/16/2024 AST 32 04/16/2024 ALT 37 04/16/2024 MAGNESIUM 1.5 05/11/2024 Imaging: No imaging studies available. ASSESSMENT/PLAN: 68 y.o. F with PSHx Whipple, HLD, HTN, s/p open AWR w/ B/L TAR on 05/11 05/12: ADAT, DC wiggins in PM if ambulating appropriately, 1L LR bolus for low UOP Neuro/Pain - Pain is well controlled on current regimen. Continue RADIATION THERAPIST CV - Remains hemodynamically stable. Continue monitoring, no telemetry. Resume/continue home calcium channel ashley for home HTN Pulm - No post-op respiratory insufficiency, stable on room 1L, cont Q1H incentive spirometry. FEN - LR 100/h, fluid and electrolyte abnormalities being treated, evaluated or monitored are: Dehydration-- IVF's and other No fluid or electrolyte disorders GI - Normal post-op bowel function/recovery, NPO Renal/ - Cr WNL, adequate UOP. Continue strict I/O., Heme - H/H stable, no transfusion indicated ID - WBC 16.5, no indication for ABX Endo - DM2, sugars well controlled on SSI MSK - OOB with assist, PT/OT ordered PPX - SQH Dispo - cont mgmt on RNF Patient d/w Attending Surgeon Dr Smita Yee MD Cosigned by Sabino Luke MD at 05/14/2024 10:52 AM CDT Associated attestation - Sabino Luke MD - 05/14/2024 10:52 AM CDT I have seen and examined the patient on 05/12/2024. I agree with the findings and plan of care as documented in the resident's/fellow's note.. documented in this encounter H&P Notes * Sabino Luke MD - 05/11/2024 11:55 AM CDT I have reviewed the H&P, examined the patient, and endorse the findings as written. Plan of Care : Based on the above findings, I consider Krissy Oneal to be an acceptable risk for : Procedure(s): REPAIR INCISIONAL HERNIA RECONSTRUCTION ABDOMINAL WALL Source Note - Paige Guaman NP - 04/16/2024 10:14 AM CDT Images from the original note were not included. [facility] Preoperative Assessment and Planning Preoperative Evaluation Record Evaluation type/location: CPAP [facility] Planned procedure site: [facility] PVT OR (Pod 1) Date: 04/16/24 Anesthesia Evaluation Krissy Oneal is a 68 y.o. female REPAIR INCISIONAL HERNIA (Abdomen) RECONSTRUCTION ABDOMINAL WALL (Abdomen) Pre-Op Diagnosis Codes: * Incarcerated incisional hernia [K43.0] HISTORY HPI Krissy Oneal is a 68 y.o. female with PMH of HTN, type 2 DM, asthma, BETTY, pancreatic cancer with mets to liver (s/p whipple, radiation & chemo) who is being evaluated prior to undergoing abdominal incisional hernia repair and abdominal wall reconstruction for incarcerated incisional hernia Past Medical History Information obtained from: patient and chart. Information obtained during: In Person Neurological + Psychiatric history - anxiety and depression Pertinent negatives: seizures; neuromuscular disease; CVA/stroke; TIA and carotid artery stent Cardiovascular + Hypertension Hypertension year diagnosed: 1995. Typical systolic BP - 125 Typical diastolic BP - 80 + Hyperlipidemia + Current valvular disease (per echo 2018) - TR - mild. Pertinent negatives: CAD ; MO ; CABG ; valve replacement; atrial fibrillation; pacemaker/ICD; PVD; DVT/PE and negative for CHF Respiratory + Asthma (rarely uses rescue inhaler; only when having sinus problems) Dyspnea frequency: 2 days/week or less. Rescue inhaler use: 2 days/week or less. Hospitalizations/ER in the last year: 0. Most recent exacerbation: 2021. + Sleep apnea (BETTY) Prescribed device: PAP non-compliant. + O2 use outside the hospital (uses PRN (very rarely); only when extremely SOB or having sinus problems) - Pertinent negatives: COPD; pulmonary hypertension; no history of oral steroid use; no prior intubation for respiratory failure due to asthma; non-smoker and no tracheostomy Hepatic / Heme + Liver disease (cancer) + History of anemia Pertinent negatives: history of thrombocytopenia Gastrointestinal Pertinent negatives: GERD and hiatal hernia Renal / + Renal disease - ARF / CKD Pertinent negatives: dialysis Musculoskeletal/Pain + Chronic pain (lumbar radiculopathy) - back pain. + Osteoarthritis (spine) Pertinent negatives: chronic opioid use and headaches Endocrine / Other + Diabetes mellitus - Diabetes type 2. Diagnosed: 2022. Diabetic complications: neuropathy. Outpatient insulin use: none. Pt reported low glucose range is 110. Pt reported high glucose range is 200. Pt reported HgA1c: 6.5%. Pt reported HgA1c date: 04/16/24. + Thyroid disease (s/p goiter removal at young age) - hyperthyroidism + Cancer history- current cancer, s/p chemo and s/p radiation. Cancer type: pancreatic, w/ mets to liver. Pertinent negatives: obesity (BMI >30); rheumatological disease; transplanted organ; infectious disease and pancreatitis Functional Capacity Functional capacity: 4-6 METs Functional capacity limited by a non-cardiovascular, non-pulmonary condition. Comments: \able to walk to the end of the street, climb up 1 flight of stairs without SOB/CP Review of Systems + pedal edema (intermittent, mild; chronic/stable) + previous transfusion + chronic pain (lumbar radiculopathy) + numbness/tingling (of feet since having chemotherapy) + vision loss (wears glasses) + dentures/partials (upper full) + chipped/loose teeth (left lower molar) Pertinent negatives: productive cough; wheezing; SOB; recent cold/flu; fever; chest pain; palpitations; orthopnea; PND; heavy menses; Sickle Cell disease/trait; transfusion reaction; melena/hematochezia; easy bruising; bleeding problems; syncope; dizziness; muscle weakness; hard of hearing; heartburn; nausea; dysphagia; diarrhea; abdominal pain; diaphoresis and no unexpected weight change PAT Summary and Plans Cardiac risk classification of planned procedure: intermediate cardiac risk. Preoperative assessment status: lab tests ordered. Initial preoperative evaluation discussed with: Roula Johnson MD Additional comments: Krissy Oneal is a 68 y.o. female who is being evaluated prior to undergoing anintermediate cardiac risk surgery. Revised Cardiac Risk Index factors are (none) for a total RCRI of 0 out of 6. Functional capacity is 4-6 METs. Obstructive sleep apnea (BETTY) screening status is HIGH RISK due to known BETTY Blood bank needs for day of procedure: Type and Screen only Pending labs/tests include: CBC CMP T&S Preoperative evaluation performed by Dayami Brito NP on 04/16/24 at 11:51 AM. I have interviewed and examined the patient and agree with this Pre-Procedural Assessment performedby the above primary evaluating BRAILLE TRANSCRIBER, who is currently in the CPAP BRAILLE TRANSCRIBER Orientation interval. Signed by: Paige Guaman NP on 04/16/24 at 1:49 PM . Follow up note Labs reviewed and are without significant findings. Surgeon's office reviews laboratory results independently. CPAP process complete. 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 Chronic obstructive pulmonary disease, unspecified COPD type (HCC) 01/21/2024 Spinal stenosis of lumbar region without neurogenic claudication 12/25/2022 Left lumbar radiculitis 12/25/2022 Past Medical History: Diagnosis Date Anxiety Asthma Chronic cholecystitis Chronic kidney disease Depression Ear problems Gastric reflux Hypertension Lumbar stenosis BETTY (obstructive sleep apnea) Pancreatic cancer metastasized to liver (HCC) Past Surgical History: Procedure Laterality Date CERVICAL SPINE SURGERY HYSTERECTOMY PANCREATICODUODENECTOMY 12/2021 PORTACATH PLACEMENT SINUS SURGERY TUBAL LIGATION OB History No obstetric history on file. Allergies Allergen Reactions Iv Contrast Dye [Iodinated Contrast Media] Itching Amoxicillin Itching Kiwi Itching Macrolide Antibiotics Itching Naproxen Sodium Itching Nitrofurantoin Itching Itching Penicillins Itching Sulfadiazine Dizziness Med List Status: Nurse Complete Set By: Rupali Marshall RN at 04/16/2024 10:44 AM Taking? Last Dose Start Date End Date Provider AccuSalChejose elias Guide test strips strip -- 04/13/24 -- Ramiro Sandoval MD Accu-Chek Softclix Lancets lancets -- 04/06/24 -- Ramiro Sandoval MD albuterol HFA (PROVENTIL HFA,VENTOLIN HFA,PROAIR HFA) 90 mcg/actuation inhaler Past Month -- -- Ramiro Sandoval MD Alcohol Prep Pads pads, medicated -- 03/30/24 -- Ramiro Sandoval MD ALPRAZolam (XANAX) 1 mg tablet 04/15/2024 -- -- Ramiro Sandoval MD amLODIPine (NORVASC) 10 mg tablet 04/16/2024 12/12/23 -- Ramiro Sandoval MD budesonide-formoteroL (SYMBICORT) 160-4.5 mcg/actuation inhaler Not Taking -- -- Ramiro Sandoval MD ciclesonide (Alvesco) 80 mcg/actuation inhaler -- 01/07/14 -- Ramiro Sandoval MD cyanocobalamin, vitamin B-12, 5,000 mcg/mL drops 04/16/2024 -- -- Ramiro Sandoval MD cyclobenzaprine (FLEXERIL) 10 mg tablet -- -- -- Ramiro Sandoval MD dicyclomine (BENTYL) 20 mg tablet 04/16/2024 02/06/24 -- Ramiro Sandoval MD Farxiga 10 mg tablet 04/16/2024 12/12/23 -- Ramiro Sandoval MD fluticasone propionate (FLONASE) 50 mcg/actuation nasal spray Past Month -- -- Ramiro Sandoval MD hydroCHLOROthiazide (HYDRODIURIL) 25 mg tablet 04/16/2024 -- -- Ramiro Sandoval MD hydrOXYzine (ATARAX) 25 mg tablet Not Taking -- -- Ramiro Sandoval MD iron,carb/vit C/vit B12/folic (IRON 100 PLUS ORAL) 04/16/2024 -- -- Ramiro Sandoval MD metFORMIN (GLUCOPHAGE) 500 mg tablet 04/16/2024 -- -- Ramiro Sandoval MD oxygen -- -- -- Ramiro Sandoval MD potassium chloride ER 20 mEq CR tablet 04/15/2024 01/08/23 -- Ramiro Sandoval MD sertraline (ZOLOFT) 50 mg tablet 04/15/2024 -- -- Ramiro Sandoval MD simvastatin (ZOCOR) 20 mg tablet 04/15/2024 05/08/18 -- Ramiro Sandoval MD -- -- -- -- -- -- -- -- -- -- -- -- Current Outpatient Medications: Accu-Chek Guide test strips strip Accu-Chek Softclix Lancets lancets albuterol HFA (PROVENTIL HFA,VENTOLIN HFA,PROAIR HFA) 90 mcg/actuation inhaler Alcohol Prep Pads pads, medicated ALPRAZolam (XANAX) 1 mg tablet amLODIPine (NORVASC) 10 mg tablet ciclesonide (Alvesco) 80 mcg/actuation inhaler cyanocobalamin, vitamin B-12, 5,000 mcg/mL drops cyclobenzaprine (FLEXERIL) 10 mg tablet dicyclomine (BENTYL) 20 mg tablet Farxiga 10 mg tablet fluticasone propionate (FLONASE) 50 mcg/actuation nasal spray hydroCHLOROthiazide (HYDRODIURIL) 25 mg tablet iron,carb/vit C/vit B12/folic (IRON 100 PLUS ORAL) metFORMIN (GLUCOPHAGE) 500 mg tablet oxygen potassium chloride ER 20 mEq CR tablet sertraline (ZOLOFT) 50 mg tablet simvastatin (ZOCOR) 20 mg tablet budesonide-formoteroL (SYMBICORT) 160-4.5 mcg/actuation inhaler hydrOXYzine (ATARAX) 25 mg tablet Social History Tobacco Use Smoking Status Former Current packs/day: 0.00 Average packs/day: 0.2 packs/day for 23.0 years (3.5 ttl pk-yrs) Types: Cigarettes Start date: 1977 Quit date: 2000 Years since quittin.6 Smokeless Tobacco Never Alcohol Use: Not At Risk (04/16/2024) AUDIT-C Frequency of Alcohol Consumption: Never Average Number of Drinks: Patient does not drink Frequency of Binge Drinking: Never Substance and Sexual Activity Drug Use No Family History Problem Relation Age of Onset Cancer Father Cancer Brother PAT Physical Exam Airway Exam: Mallampati: III Cervical ROM: limited extension TM distance: >4 (Limited neck extension d/t hardware present)Upper lip bite test class: 1 Cardiovascular Exam: Rate: regular Rhythm: regular Negative for Murmur No extra heart sounds appreciated Negative for peripheral edema JVD negative Pulmonary Exam: LCTA, bilat EENT Exam: trachea midline Dental Exam: Upper dentures and otherwise appears intact Skin Exam: Skin is warm and dry. Abdominal exam: Abdomen is soft. Bowel sounds are present. Current state: Patient's current state is cooperative and interactive. Line/Drains/Tubes/Devices: Lines in situ (Right upper chest): port Vitals: 04/16/24 1025 04/16/24 1030 BP: 123/82 126/79 Pulse: 74 Resp: 16 SpO2: 96% Relevant diagnostics: ECG(s): 12/25/21 Interpretive Statements Normal sinus rhythm, 79bpm Normal ECG Echocardiogram(s): TTE 11/13/18 PT: No results found for requested labs within last 30 days. INR: No results found for requested labs within last 30 days. APTT: No results found for requested labs within last 30 days. Hgb A1C: No results found for requested labs within last 30 days. CBC RBC: No results found for requested labs within last 30 days. RDW: No results found for requested labs within last 30 days. MCHC: No results found for requested labs within last 30 days. MCH: No results found for requested labs within last 30 days. MCV: No results found for requested labs within last 30 days. Hct: No results found for requested labs within last 30 days. Hgb: No results found for requested labs within last 30 days. WBC: No results found for requested labs within last 30 days. MPV: No results found for requested labs within last 30 days. Platelets: No results found for requested labs within last 30 days. RDW CV: No results found for requested labs within last 30 days. RDW Sd: No results found for requested labs within last 30 days. BMP Glucose: No results found for requested labs within last 30 days. Calcium: No results found for requested labs within last 30 days. Sodium: No results found for requested labs within last 30 days. Potassium: No results found for requested labs within last 30 days. CO2: No results found for requested labs within last 30 days. Chloride: No results found for requested labs within last 30 days. BUN: No results found for requested labs within last 30 days. Creatinine: No results found for requested labs within last 30 days. Shena index score: 100 AD8 Dementia Score: 0 Short Blessed Total Score: 2 documented in this encounter Nursing Notes * Ronda Lozano - 05/19/2024 11:37 AM CDT Patient to discharge with daughter at 1135. Discharge education given to patient. Patient verbally expressed understand.Report called to JESSICA Segovia at accepting facility at 1122. Patient left AOx4 and on RA. documented in this encounter Miscellaneous Notes * Plan of Care - Ronda Lozano - 05/19/2024 9:52 AM CDT Problem: Medication Goal: Agree to be compliant with medication regime, as prescribed and report medication side effects Outcome: Progressing Goal: Satisfaction with pain management medication regimen will improve Outcome: Progressing Problem: Sensory Goal: Ability to identify factors that increase pain levels will improve while working to decrease the patient's pain levels Outcome: Progressing Problem: Coping Goal: Ability to cope will improve Outcome: Progressing Problem: Health Behavior Goal: Identification of resources available to assist in meeting health care needs will improve Outcome: Progressing Problem: Activity Goal: Risk for activity intolerance and fatigue will decrease Outcome: Progressing Goal: Ability to tolerate increased activity will improve Outcome: Progressing Goal: Ability to avoid complications of mobility impairment will improve Outcome: Progressing Problem: Discharge Planning Goal: Understanding discharge needs will improve Outcome: Progressing Problem: Fluid Volume Goal: Ability to maintain a balanced intake and output will improve Outcome: Progressing Problem: Tissue Perfusion Goal: Adequacy of tissue perfusion will improve Outcome: Progressing Problem: Fall Risk Goal: Ability to state ways to decrease the risk of falls will improve Outcome: Progressing Goal: Will remain free from falls Outcome: Progressing Goal: Will remain free from injury from falls Outcome: Progressing Problem: Lack of Knowledge Goal: Ability to develop a pain control plan will improve Outcome: Progressing Problem: Coping Goal: Verbalization of decreased anxiety will be supported Outcome: Progressing Goal: Able to verbalize concerns and demonstrate effective coping strategies Outcome: Progressing Problem: Nutritional Goal: Nutrient intake appropriate for improving, restoring or maintaining nutritional needs Outcome: Progressing Goal: Implement dietary regimen as ordered Outcome: Progressing Problem: Self-Care Goal: Ability to participate in self-care as condition permits will improve Outcome: Progressing Problem: Sensory Goal: General experience of comfort will improve Outcome: Progressing Goals: Clinical Goals for the Shift: pain control, VSS,I&Os Care Home Patient Centered Goal for Treatment: Safe discharge planning Summary: * Plan of Care - Raquel Shipman RN - 05/19/2024 6:06 AM CDT Goals: Clinical Goals for the Shift: pain control, VSS,I&Os Manager Rn Patient Centered Goal for Treatment: Safe discharge planning Summary: Patient given emotional support. Patient pain controlled on current regimen. Patient wound and post operative teaching initiated and ongoing related to CHG daily, pain control,wound and post operative teaching. * Plan of Care - Ronda Lozano - 05/18/2024 4:05 PM CDT Problem: Medication Goal: Agree to be compliant with medication regime, as prescribed and report medication side effects Outcome: Progressing Goal: Satisfaction with pain management medication regimen will improve Outcome: Progressing Problem: Sensory Goal: Ability to identify factors that increase pain levels will improve while working to decrease the patient's pain levels Outcome: Progressing Problem: Coping Goal: Ability to cope will improve Outcome: Progressing Problem: Health Behavior Goal: Identification of resources available to assist in meeting health care needs will improve Outcome: Progressing Problem: Activity Goal: Risk for activity intolerance and fatigue will decrease Outcome: Progressing Goal: Ability to tolerate increased activity will improve Outcome: Progressing Goal: Ability to avoid complications of mobility impairment will improve Outcome: Progressing Problem: Discharge Planning Goal: Understanding discharge needs will improve Outcome: Progressing Problem: Fluid Volume Goal: Ability to maintain a balanced intake and output will improve Outcome: Progressing Problem: Tissue Perfusion Goal: Adequacy of tissue perfusion will improve Outcome: Progressing Problem: Fall Risk Goal: Ability to state ways to decrease the risk of falls will improve Outcome: Progressing Goal: Will remain free from falls Outcome: Progressing Goal: Will remain free from injury from falls Outcome: Progressing Problem: Lack of Knowledge Goal: Ability to develop a pain control plan will improve Outcome: Progressing Problem: Coping Goal: Verbalization of decreased anxiety will be supported Outcome: Progressing Goal: Able to verbalize concerns and demonstrate effective coping strategies Outcome: Progressing Problem: Nutritional Goal: Nutrient intake appropriate for improving, restoring or maintaining nutritional needs Outcome: Progressing Goal: Implement dietary regimen as ordered Outcome: Progressing Problem: Self-Care Goal: Ability to participate in self-care as condition permits will improve Outcome: Progressing Problem: Sensory Goal: General experience of comfort will improve Outcome: Progressing Goals: Clinical Goals for the Shift: pain control, VSS,I&Os Care Home Patient Centered Goal for Treatment: Safe discharge planning Summary: * Plan of Care - Germaine Cao RN - 05/18/2024 12:03 PM CDT 05/18/24 1201 Discharge Planning Support System Spouse/Significant Other;Family members Anticipated discharge level of care intermediate facility (short term care) Does the patient need discharge transport arranged? No (Family to transport home.) Post Acute Care Plan Home Care Services N/A OP Services N/A DME N/A Referral Status Accepted Accepted Post Acute Care Location and Contact Liliya Mchugh [facility] [address] [place] [address]/ [place] [phone] Accepted Post Acute Care CM Progression of Care Update Per Medical Chart/Rounds/IDR: Pt is not medically stable for discharge at this time. ADD: 05/19 Discharge Barriers: None noted Education Needs Identified (plan): Pt to discharge to [facility] when medically stable. Insurance auth has been obtained and is good thru 05/19/24. Accepting (Dr.Hereah Stock ) [address], [place] contact ([phone]) Report: [phone] Fax discharge summary: [phone] Fax COVID results: [phone] Pharmacy: [facility] F/U Appointments: To be scheduled. Patient's Identified Problem/Goal Problem:?Ensure acute medical needs are met and that patient has a safe discharge plan. Goal:?Secure a discharge plan that patient/family are agreeable with?and ensure patient has continuum of care. Patient and/or family are agreeable with plan. tooling manager will continue to follow and assist with discharge planning as needed. If any further discharge needs arise, please contact the covering case mgr. * Plan of Care - Stacey Johnson RN - 05/17/2024 7:29 PM CDT Goals: Clinical Goals for the Shift: VSS, pain control, ambulation, JAIME drain care, monitor I&Os, and safety Manager Rn Patient Centered Goal for Treatment: Safe discharge planning Summary: Pt progressing towards discharge goals. * Plan of Care - Saleem Espinosa RN - 05/17/2024 11:46 AM CDT Problem: Medication Goal: Agree to be compliant with medication regime, as prescribed and report medication side effects Outcome: Progressing Goal: Satisfaction with pain management medication regimen will improve Outcome: Progressing Problem: Sensory Goal: Ability to identify factors that increase pain levels will improve while working to decrease the patient's pain levels Outcome: Progressing Problem: Coping Goal: Ability to cope will improve Outcome: Progressing Problem: Health Behavior Goal: Identification of resources available to assist in meeting health care needs will improve Outcome: Progressing Problem: Activity Goal: Risk for activity intolerance and fatigue will decrease Outcome: Progressing Goal: Ability to tolerate increased activity will improve Outcome: Progressing Goal: Ability to avoid complications of mobility impairment will improve Outcome: Progressing Problem: Discharge Planning Goal: Understanding discharge needs will improve Outcome: Progressing Problem: Fluid Volume Goal: Ability to maintain a balanced intake and output will improve Outcome: Progressing Problem: Tissue Perfusion Goal: Adequacy of tissue perfusion will improve Outcome: Progressing Problem: Fall Risk Goal: Ability to state ways to decrease the risk of falls will improve Outcome: Progressing Goal: Will remain free from falls Outcome: Progressing Goal: Will remain free from injury from falls Outcome: Progressing Problem: Lack of Knowledge Goal: Ability to develop a pain control plan will improve Outcome: Progressing Problem: Coping Goal: Verbalization of decreased anxiety will be supported Outcome: Progressing Goal: Able to verbalize concerns and demonstrate effective coping strategies Outcome: Progressing Problem: Nutritional Goal: Nutrient intake appropriate for improving, restoring or maintaining nutritional needs Outcome: Progressing Goal: Implement dietary regimen as ordered Outcome: Progressing Problem: Self-Care Goal: Ability to participate in self-care as condition permits will improve Outcome: Progressing Problem: Sensory Goal: General experience of comfort will improve Outcome: Progressing Goals: Clinical Goals for the Shift: VSS, pain control, ambulation, JAIME drain care, monitor I&Os, and safety Care Home Patient Centered Goal for Treatment: Safe discharge planning Summary: VSS, pain control, ambulation, JAIME drain care, monitor I&Os, and safety. Call light within reach. * Plan of Care - Paige Dow RN - 05/17/2024 11:04 AM CDT Discharge plan discussed with Dr. Yee. Provider said that patient most likely not ready for d/c today; pending respiratory status. CM will continue to follow for discharge needs. For weekend assistance, please contact the on-call weekend case mgr. * Plan of Care - Stacey Johnson RN - 05/16/2024 7:23 PM CDT Goals: Clinical Goals for the Shift: Monitor VS, I&O, pain control, ambulate, wean o2, have BM. Care Home Patient Centered Goal for Treatment: Safe discharge Summary: Pt progressing towards discharge goals. * Medical Student - Bethanie Alvarez - 05/16/2024 9:58 AM CDT [facility] Daily Progress Note SUBJECTIVE: Overnight Events: No acute events overnight Interval History: Patient remains stable. Patient is having appropriate post-surgical pain that is well controlled. No complaints of N/V.. Still awaiting bowel function. She still has not passed gas. Patient has ambulating without issues. She has been weaned off N/C, breathing on RA. OBJECTIVE: Vitals / I/O: 24hr Min/Max: Temp Min: 36.3 ??C (97.3 ??F) Max: 36.8 ??C (98.2 ??F) Pulse Min: 99 Max: 128 BP Min: 119/84 Max: 152/91 Resp Min: 16 Max: 22 SpO2 Min: 92 % Max: 99 % Vitals: 05/15/24 2351 05/16/24 0344 05/16/24 0520 05/16/24 0830 BP: 120/93 128/95 152/91 119/84 BP Location: Right arm Left arm Right arm Right arm Patient Position: Lying;HOB 30 degrees Lying;HOB 30 degrees Sitting HOB 30 degrees Pulse: 106 99 117 105 Resp: 20 20 18 Temp: 36.3 ??C (97.3 ??F) 36.5 ??C (97.7 ??F) 36.6 ??C (97.9 ??F) TempSrc: Oral Oral Oral SpO2: 99% 99% 94% Weight: Height: I/O last 3 completed shifts: In: 660 [P.O.:650; I.V.:10] Out: 2133 [Urine:1820; Drains:313] Physical Exam: General NAD, awake, alert, oriented Neuro Moving all extremities, no focal deficits Psych Appropriate mood and affect HEENT EOMI, conjunctiva pink Cardio Regular rate and rhythm Pulm Breathing comfortably on room air no increased work of breathing. GI soft, non-distended, mildly tender Skin Incisions clean,dry, intact, with herminia in place no erythema, no drainage Drains Drains in place with thin serosanguineous output Extremities Warm, well perfused, No edema Labs: Lab Results Component Value Date WBC 7.2 05/15/2024 HGB 11.2 (L) 05/15/2024 HCT 32.9 (L) 05/15/2024 MCV 83.1 05/15/2024 LABPLAT 286 05/15/2024 Chemistry Lab Results Component Value Date SODIUM 132 (L) 05/15/2024 POTASSIUM 3.6 05/15/2024 CHLORIDE 95 (L) 05/15/2024 CO2 29 05/15/2024 ANIONGAP 8 05/15/2024 BUNSER 8 05/15/2024 CREATININE 0.65 05/15/2024 GLUCOSE 125 05/16/2024 CALCIUM 9.4 05/15/2024 BILITOT 0.3 04/16/2024 ALBUMIN 5.3 (H) 04/16/2024 GFRNAA >90 05/15/2024 ALKPHOS 89 04/16/2024 AST 32 04/16/2024 ALT 37 04/16/2024 MAGNESIUM 1.9 05/14/2024 Imaging: No new imaging studies available. ASSESSMENT/PLAN: 68 y.o. F with PSHx Whipple, HLD, HTN, s/p open AWR w/ B/L TAR on 05/11 05/16: Now on RA, AROBF. Maintain FLD - if patient has BM, can ADAT. Neuro/Pain - Pain is well controlled on current regimen. Continue Tylenol, IV Dilaudid, and Oxycodone CV - Remains hemodynamically stable. Continue monitoring, no telemetry. Resume/continue home calcium channel ashley, HCTZ for home HTN Pulm - No post-op respiratory insufficiency, stable on RA, cont Q1H incentive spirometry. FEN - heplock IVF, fluid and electrolyte abnormalities being treated, evaluated or monitored are: no electrolyte disorders GI - Normal post-op bowel function/recovery, FLD Renal/ - Cr WNL, adequate UOP. Continue strict I/O. Heme - H/H stable, no transfusion indicated ID - WBC 7.2, no indication for ABX Endo - DM2, sugars well controlled on SSI MSK - OOB with assist, PT/OT ordered PPX - SQH Dispo - cont mgmt on RNF, will dc to SNF per PT Patient d/w Attending Surgeon Dr Smita Alvarez MS4 MIS Surgery Cosigned by Nancy Llamas MD at 05/16/2024 11:52 AM CDT * Plan of Care - Teagan Long RN - 05/16/2024 8:43 AM CDT Goals: Clinical Goals for the Shift: Monitor VS, I&O, pain control, ambulate, wean o2, have BM. Care Home Patient Centered Goal for Treatment: Safe discharge Problem: Medication Goal: Agree to be compliant with medication regime, as prescribed and report medication side effects Outcome: Progressing Goal: Satisfaction with pain management medication regimen will improve Outcome: Progressing Problem: Sensory Goal: Ability to identify factors that increase pain levels will improve while working to decrease the patient's pain levels Outcome: Progressing Problem: Coping Goal: Ability to cope will improve Outcome: Progressing Problem: Health Behavior Goal: Identification of resources available to assist in meeting health care needs will improve Outcome: Progressing Problem: Lack of Knowledge Goal: Ability to develop a pain control plan will improve Outcome: Progressing Problem: Activity Goal: Risk for activity intolerance and fatigue will decrease Outcome: Progressing Goal: Ability to tolerate increased activity will improve Outcome: Progressing Goal: Ability to avoid complications of mobility impairment will improve Outcome: Progressing * Plan of Care - Lionel Boston RN - 05/16/2024 2:34 AM CDT Goals: Clinical Goals for the Shift: monitor v/s, pain control, nausea control, drain care, safety Manager Rn Patient Centered Goal for Treatment: safe discharge Summary: Problem: Medication Goal: Agree to be compliant with medication regime, as prescribed and report medication side effects Outcome: Progressing Goal: Satisfaction with pain management medication regimen will improve Outcome: Progressing Problem: Sensory Goal: Ability to identify factors that increase pain levels will improve while working to decrease the patient's pain levels Outcome: Progressing Problem: Coping Goal: Ability to cope will improve Outcome: Progressing Problem: Health Behavior Goal: Identification of resources available to assist in meeting health care needs will improve Outcome: Progressing Problem: Activity Goal: Risk for activity intolerance and fatigue will decrease Outcome: Progressing Goal: Ability to tolerate increased activity will improve Outcome: Progressing Goal: Ability to avoid complications of mobility impairment will improve Outcome: Progressing Problem: Discharge Planning Goal: Understanding discharge needs will improve Outcome: Progressing Problem: Fluid Volume Goal: Ability to maintain a balanced intake and output will improve Outcome: Progressing Problem: Tissue Perfusion Goal: Adequacy of tissue perfusion will improve Outcome: Progressing Problem: Fall Risk Goal: Ability to state ways to decrease the risk of falls will improve Outcome: Progressing Goal: Will remain free from falls Outcome: Progressing Goal: Will remain free from injury from falls Outcome: Progressing Problem: Lack of Knowledge Goal: Ability to develop a pain control plan will improve Outcome: Progressing Problem: Coping Goal: Verbalization of decreased anxiety will be supported Outcome: Progressing Goal: Able to verbalize concerns and demonstrate effective coping strategies Outcome: Progressing Problem: Nutritional Goal: Nutrient intake appropriate for improving, restoring or maintaining nutritional needs Outcome: Progressing Goal: Implement dietary regimen as ordered Outcome: Progressing Problem: Self-Care Goal: Ability to participate in self-care as condition permits will improve Outcome: Progressing Problem: Sensory Goal: General experience of comfort will improve Outcome: Progressing * Plan of Care - Paula Andersen RN - 05/15/2024 1:45 PM CDT 05/15/24 1717 Communications Important Message from Medicare notice given to patient? Yes YOUNG letter given? Not Applicable Patient choice (Home Health/Hospice) list given to patient/national account representative? Not Applicable Care Home Facility list given to patient/national account representative? Yes Notice of Non-Covered Continued Stay or Hospital Services Given to Patient Not Applicable IM letter completed with patient/national account representative at bedside. Patient/national account representative were informed ofthe planned discharge date, the date the beneficiary's financial liability begins, the beneficiary's appeal rights, and how and when to initiate an appeal. Patient/national account representative were provided a copy of the IM letter and IM letter was placed in unit???s designated medical record bin to be uploaded into the patient???s chart. * Plan of Care - Paula Andersen RN - 05/15/2024 12:46 PM CDT 05/15/24 1244 Discharge Planning Support System Spouse/Significant Other;Family members Anticipated discharge level of care intermediate facility (short term care) Does the patient need discharge transport arranged? No Post Acute Care Plan Home Care Services N/A OP Services N/A DME N/A Post Acute Care Facility Yes Referral Status Accepted Accepted Post Acute Care Location and Contact [facility] ([phone]) Accepted Post Acute Care Fax Number Fax dc summary to [phone] Per Medical Chart/Rounds/IDR: Patient is not medically ready for discharge, wean oxygen, ambulate, await return of bowel function, pulmonary toilet. ADD: 05/16 Plan/referrals made/in place: [place], [place] accepted, pending insurance authorization. Addendum: 13:43- Insurance authorization obtained [id number] 05/15-05/19 Support following discharge: Facility staff and family Transportation: Family F/U Appointments: per surgical team Plan for weekend discharge: Yes (auth obtained until 05/19), waiting on flatus, COVID test [facility] (facility ) Accepting (Dr.Hereah Stock ) [address], [place] Mary Jo contact for weekend ([phone]) Report: [phone] Fax discharge summary: [phone] Fax COVID results: [phone] Pharmacy: [facility] Please send narcotic script (if ordered) electronically to [facility] and also send hard copy in chart please. For weekend assistance, please check the treatment team in [facility] for the assigned case mgr or contact the weekend Case Management phone. * Plan of Care - Yani Marlow RN - 05/15/2024 11:41 AM CDT Goals: Clinical Goals for the Shift: VSS, pain control, nausea/vomiting control, drain care, ambulate safely Care Home Patient Centered Goal for Treatment: Safe discharge Problem: Medication Goal: Agree to be compliant with medication regime, as prescribed and report medication side effects Outcome: Progressing Goal: Satisfaction with pain management medication regimen will improve Outcome: Progressing Problem: Sensory Goal: Ability to identify factors that increase pain levels will improve while working to decrease the patient's pain levels Outcome: Progressing Problem: Coping Goal: Ability to cope will improve Outcome: Progressing Problem: Health Behavior Goal: Identification of resources available to assist in meeting health care needs will improve Outcome: Progressing Problem: Activity Goal: Risk for activity intolerance and fatigue will decrease Outcome: Progressing Goal: Ability to tolerate increased activity will improve Outcome: Progressing Goal: Ability to avoid complications of mobility impairment will improve Outcome: Progressing Problem: Discharge Planning Goal: Understanding discharge needs will improve Outcome: Progressing Problem: Fluid Volume Goal: Ability to maintain a balanced intake and output will improve Outcome: Progressing Problem: Tissue Perfusion Goal: Adequacy of tissue perfusion will improve Outcome: Progressing Problem: Fall Risk Goal: Ability to state ways to decrease the risk of falls will improve Outcome: Progressing Goal: Will remain free from falls Outcome: Progressing Goal: Will remain free from injury from falls Outcome: Progressing Problem: Lack of Knowledge Goal: Ability to develop a pain control plan will improve Outcome: Progressing Problem: Coping Goal: Verbalization of decreased anxiety will be supported Outcome: Progressing Goal: Able to verbalize concerns and demonstrate effective coping strategies Outcome: Progressing Problem: Nutritional Goal: Nutrient intake appropriate for improving, restoring or maintaining nutritional needs Outcome: Progressing Goal: Implement dietary regimen as ordered Outcome: Progressing Problem: Self-Care Goal: Ability to participate in self-care as condition permits will improve Outcome: Progressing Problem: Sensory Goal: General experience of comfort will improve Outcome: Progressing * Plan of Care - Clara Ramon RN - 05/14/2024 9:44 PM CDT Problem: Medication Goal: Agree to be compliant with medication regime, as prescribed and report medication side effects Outcome: Progressing Goal: Satisfaction with pain management medication regimen will improve Outcome: Progressing Problem: Sensory Goal: Ability to identify factors that increase pain levels will improve while working to decrease the patient's pain levels Outcome: Progressing Problem: Coping Goal: Ability to cope will improve Outcome: Progressing Problem: Health Behavior Goal: Identification of resources available to assist in meeting health care needs will improve Outcome: Progressing Problem: Activity Goal: Risk for activity intolerance and fatigue will decrease Outcome: Progressing Goal: Ability to tolerate increased activity will improve Outcome: Progressing Goal: Ability to avoid complications of mobility impairment will improve Outcome: Progressing Problem: Discharge Planning Goal: Understanding discharge needs will improve Outcome: Progressing Problem: Fluid Volume Goal: Ability to maintain a balanced intake and output will improve Outcome: Progressing Problem: Tissue Perfusion Goal: Adequacy of tissue perfusion will improve Outcome: Progressing Problem: Fall Risk Goal: Ability to state ways to decrease the risk of falls will improve Outcome: Progressing Goal: Will remain free from falls Outcome: Progressing Goal: Will remain free from injury from falls Outcome: Progressing Problem: Lack of Knowledge Goal: Ability to develop a pain control plan will improve Outcome: Progressing Problem: Coping Goal: Verbalization of decreased anxiety will be supported Outcome: Progressing Goal: Able to verbalize concerns and demonstrate effective coping strategies Outcome: Progressing Problem: Nutritional Goal: Nutrient intake appropriate for improving, restoring or maintaining nutritional needs Outcome: Progressing Goal: Implement dietary regimen as ordered Outcome: Progressing Problem: Self-Care Goal: Ability to participate in self-care as condition permits will improve Outcome: Progressing Problem: Sensory Goal: General experience of comfort will improve Outcome: Progressing Goals: Clinical Goals for the Shift: VSS, Pain control, Monitor Manager Rn Patient Centered Goal for Treatment: Safe discharge Summary: * Plan of Care - Jennifer Levi RN - 05/14/2024 2:55 PM CDT 05/14/24 1454 Discharge Planning Support System Spouse/Significant Other Anticipated discharge level of care intermediate facility (short term care) Does the patient need discharge transport arranged? No Post Acute Care Plan Post Acute Care Facility Yes Referral Status Started CM Progression of Care Update Per Medical Chart/Rounds/IDR: NOT MEDICALLY READY weaning oxygen and awaiting return of bowl function ADD: 05/16 Discharge Plan: Has improved with therapy - now with recs for snf - patient agreeable to snf Transportation: car/family Referrals: NO ACCEPTING SNFS at this time [facility] - no beds [place] - declined [facility] = UNDER REVIEW HH - proactive referral sent (still need ORDER) [facility] Contact Mariela Accepted for soc 05/16 for PT and OT Support at discharge: spouse Karina [phone] Discharge Barriers: awaiting return of bowel function F/U Appointments: Smita 05/27 Patient's Identified Problem/Goal Problem:?Ensure acute medical needs are met and that patient has a safe discharge plan. Goal:?Secure a discharge plan that patient/family are agreeable with?and ensure patient has continuum of care. Patient and/or family are agreeable with plan. tooling manager will continue to follow and assist with discharge planning as needed. If any further discharge needs arise, please contact the covering case mgr. * [facility]IN Note - Jennifer Levi RN - 05/14/2024 2:40 PM CDT Images from the original note were not included. Patient Information: OT Eval and Treat Last 72 Hours OT Evaluation Row Name 05/12/24 3301 Chart Reviewed Yes -MH (r) CK (c) Session Type Evaluation -MH (r) CK (c) OT Received On 05/12/24 -MH (r) CK (c) Safe Environment Arm band checked;Patient found sitting at edge of bed;Gait belt not utilized, see comment dt surgical incision -MH (r) CK (c) Subjective Agreeable to Therapy - (r) CK (c) Family/Caregiver Present Yes -MH (r) CK (c) Occupational Therapy-Patient Goal Agreeable to POC - (r) CK (c) Precautions Abdominal;Fall risk - (r) CK (c) Braces/Orthoses Other abdominal binder - (r) CK (c) Precaution Comments Pt. education on abdominal precautions. Pt verbalized understanding -MH (r) CK (c) Type of Home House -MH (r) CK (c) Home Layout One level - (r) CK (c) Home Access Stairs to enter with rails -MH (r) CK (c) Entrance Stairs-Rails Both -MH (r) CK (c) Entrance Stairs-Number of Steps 10 -MH (r) CK (c) Bathroom Shower/Tub Tub/shower unit - (r) CK (c) Bathroom Toilet Standard - (r) CK (c) Home Mobility Equipment-Available Walker;Single point cane - (r) CK (c) Home Mobility Equipment-Currently Using None uses cart for community outings - (r) CK (c) Home ADL Equipment-Available None - (r) CK (c) Home ADL Equipment-Currently Using None - (r) CK (c) Level of [place] Independent with ADLs;Independent functional transfers;Independent with ambulation - (r) CK (c) Lives With Spouse - (r) CK (c) Receives Help From Spouse/Significant other in mornings, daughter/sister as needed - (r) CK (c) Driving Yes -MH (r) CK (c) ADL Assistance Independent - (r) CK (c) Instrumental ADL (IADL) Assistance Independent - (r) CK (c) Vocational/Occupation Retired - (r) CK (c) Fall within the last 6 months No - (r) CK (c) ADLS (WDL) X - (r) CK (c) Grooming: Where assessed Other (Comment) Sitting in recliner. Baseline standing -MH (r) CK (c) Grooming: Level of assistance Moderate Assist dt sitting -MH (r) CK (c) LE Dressing: Where assessed Sitting - (r) CK (c) LE Dressing: Level of assistance Moderate Assist attempted figure-4 technique. unable to perform dtpain, faitgue, and drowziness -MH (r) CK (c) LE Dressing: Assistance with Safety Min A balance, Dependent task -MH (r) CK (c) Toilet Transfer From Bed -MH (r) CK (c) Toilet Transfer Type To - (r) CK (c) Toilet Transfer to Standard bedside commode simulated -MH (r) CK (c) Toilet Transfer Technique Stand and Step - (r) CK (c) Toilet Transfer: Equipment Hand hold -MH (r) CK (c) Toilet Transfers Minimal assistance -MH (r) CK (c) Toilet Transfers Comments assist for force production to rise, steading assist when steping to chair, assist to control decent and verbal cues for hand placement on recliner -MH (r) CK (c) Pain Assessment 0-10 -MH (r) CK (c) Pain Score 8 -MH (r) CK (c) Pain Interventions RN Notified -MH (r) CK (c) Overall Cognitive Status WFL -MH (r) CK (c) Arousal/Alertness Alert;Appropriate responses to stimuli -MH (r) CK (c) Attention Span Appears intact -MH (r) CK (c) Memory Appears intact -MH (r) CK (c) Current communication Appears Intact -MH (r) CK (c) Orientation Oriented X4 (person, place, time, situation) -MH (r) CK (c) Following Commands Follows all commands and directions without difficulty -MH (r) CK (c) Safety Judgment Good awareness of safety precautions -MH (r) CK (c) Awareness of Errors Good awareness of errors made -MH (r) CK (c) Insight Fully aware of deficits -MH (r) CK (c) Problem Solving Able to problem solve independently -MH (r) CK (c) Compliance/Behavior Easy to engage -MH (r) CK (c) Perseveration Not present -MH (r) CK (c) Cognitive Tests Yes -MH (r) CK (c) What year is it now? 0 -MH (r) CK (c) What month is it now? 0 -MH (r) CK (c) Repeat this name and address after me Lionel Camarena [address] [place] [address] -MH (r) CK (c) Without looking at the clock, tell me what time it is 3 -MH (r) CK (c) Count aloud backwards from 20-1 0 -MH (r) CK (c) Say the months of the year backwards in reverse order 0 -MH (r) CK (c) Repeat the name and address I asked you to remember 0 -MH (r) CK (c) Short Blessed Total Score 3 -MH Balance Tests Yes -MH (r) CK (c) Sitting Balance 1 -MH (r) CK (c) Arises 1 -MH (r) CK (c) Attempts to Arise 2 -MH (r) CK (c) Immediate Standing Balance (First 5 Seconds) 1 -MH (r) CK (c) Standing Balance 1 -MH (r) CK (c) Nudged 1 -MH (r) CK (c) Eyes Closed 0 -MH (r) CK (c) Turned 360 Degrees: Steadiness 0 -MH (r) CK (c) Turned 360 Degrees: Continuity of Steps 0 -MH (r) CK (c) Sitting Down 1 -MH (r) CK (c) Balance Score 8 -MH Balance Yes -MH (r) CK (c) Static Sitting-Balance Support Feet supported -MH (r) CK (c) Static Sitting-Sitting Surface Bed -MH (r) CK (c) Static Sitting-Level of Assistance Distant supervision -MH (r) CK (c) Static Sitting-Comment/# of Minutes safety -MH (r) CK (c) Dynamic Sitting-Balance Support Feet supported -MH (r) CK (c) Dynamic Sitting-Balance Lateral lean;Forward lean -MH (r) CK (c) Dynamic Sitting-Sitting Surface Chair -MH (r) CK (c) Dynamic Sitting-Level of Assistance Distant supervision -MH (r) CK (c) Dynamic Sitting-Comments safety -MH (r) CK (c) Static Standing-Balance Support Bilateral upper extremity supported -MH (r) CK (c) Static Standing-Standing Surface Floor -MH (r) CK (c) Static Standing-Level of Assistance Minimum assistance -MH (r) CK (c) Static Standing-Comment/# of Minutes steadying assist, balance, safety -MH (r) CK (c) Dynamic Standing-Balance Support Bilateral upper extremity supported -MH (r) CK (c) Dynamic Standing-Balance Lateral lean;Forward lean -MH (r) CK (c) Dynamic Standing-Standing Surface Floor -MH (r) CK (c) Dynamic Standing-Level of Assistance Minimum assistance -MH (r) CK (c) Dynamic Standing-Comments steadying assist, balance, safety -MH (r) CK (c) Bed Mobility No -MH (r) CK (c) Transfer Yes -MH (r) CK (c) Transfer From 1 Sit -MH (r) CK (c) Transfer Type 1 To -MH (r) CK (c) Transfer to 1 Stand -MH (r) CK (c) Technique 1 Sit to stand -MH (r) CK (c) Transfer Device 1 Hand held assist -MH (r) CK (c) Transfer Level of Assistance 1 Minimum Assist -MH (r) CK (c) Trials/Comments 1 assist for force produciton, steadying assist for balance intitally upon standing-MH (r) CK (c) Transfer From 2 Bed -MH (r) CK (c) Transfer Type 2 To -MH (r) CK (c) Transfer to 2 Chair with arms -MH (r) CK (c) Technique 2 Ambulation -MH (r) CK (c) Transfer Device 2 Hand held assist -MH (r) CK (c) Transfer Level of Assistance 2 Minimum Assist -MH (r) CK (c) Trials/Comments 2 for balance, safety, and steadying support -MH (r) CK (c) RUE Assessment WFL -MH (r) CK (c) LUE Assessment WFL -MH (r) CK (c) Putting on and taking off regular lower body clothing 2 -MH (r) CK (c) Bathing 3 -MH (r) CK (c) Toileting 3 -MH (r) CK (c) Putting on and taking off upper body clothing 3 -MH (r) CK (c) Personal Grooming 3 -MH (r) CK (c) Eating Meals 4 -MH (r) CK (c) Total Score (range 6-24) 18 -MH Score Interpretation 38.66 -MH (r) CK (c) Safe Environment End of Therapy Session Patient left in recliner;RN notified;Call light within reach;Overbed table within reach -MH (r) CK (c) Problem List Decreased endurance;Decreased balance;Decreased functional mobility;Decreased ADL independence;Decreased IADL independence;Pain - (r) CK (c) Barriers to Discharge Current Mobility Status;Current ADL Status;Decreased caregiver support - (r) CK (c) Plan Plan of care initiated;If this is the last note, consider this the discharge summary - (r) CK (c) OT Recommendation Care Home Facility - (r) CK (c) Patient at high risk for Falls;Injury due to decreased ability to care for self;Injury due to reduced functional status;Injury due to balance deficits;Injury at home as patient has not returned to prior level of function - (r) CK (c) Recommend SNF due to Skilled therapy needed for patient to return to prior level of independence;Skilled therapy needed to address functional deficits;Skilled therapy needed to address care for self in the home;Unable to safely care for self in the home;Risk of injury at home - (r) CK (c) OT Frequency during current admission 3-5x/wk - (r) CK (c) Treatment/Interventions during current admission ADL/IADL retraining;Balance Training;Bed mobility;Functional activity;Functional mobility training;Functional transfer training;Transfer training - (r) CK (c) OT - Next Appointment 05/13/24 - (r) CK (c) OT - OK to Discharge No - (r) CK (c) OT Evaluation Complete Yes - (r) CK (c) Start Time 1446 - (r) CK (c) Stop Time 1520 - (r) CK (c) Time Calculation (min) 34 min - User Grove (r) = Recorded By, (t) = Taken By, (c) = Cosigned By Initials Name Effective Dates Viridiana Hearn 05/09/24 - Mainsha Cortes OT 05/10/22 - OT Treatment Row Name 05/14/24 0804 Session Type Treatment -EP OT Received On 05/14/24 -EP Safe Environment Arm band checked;Patient found in supine;Gait belt not utilized, see comment surgical site -EP Subjective Agreeable to Therapy -EP Family/Caregiver Present No -EP Precautions Abdominal;Fall risk;BETTY -EP Braces/Orthoses Other Abdominal binder -EP Precaution Comments Verbally reviewed abdominal precautions. Pt verbalized and demonstrated understanding -EP Pain Assessment No/denies pain -EP Balance Yes -EP Static Sitting-Balance Support Feet supported -EP Static Sitting-Sitting Surface Bed -EP Static Sitting-Level of Assistance Distant supervision -EP Static Sitting-Comment/# of Minutes for safety -EP Dynamic Sitting-Balance Support Feet supported -EP Dynamic Sitting-Balance Lateral lean;Forward lean;Reaching for objects -EP Dynamic Sitting-Sitting Surface Bed -EP Dynamic Sitting-Level of Assistance Distant supervision -EP Dynamic Sitting-Comments for safety -EP Static Standing-Balance Support Bilateral upper extremity supported on WW -EP Static Standing-Standing Surface Floor -EP Static Standing-Level of Assistance Contact guard -EP Static Standing-Comment/# of Minutes for safety and balance -EP Dynamic Standing-Balance Support Bilateral upper extremity supported on WW -EP Dynamic Standing-Balance Lateral lean;Forward lean;Reaching for objects -EP Dynamic Standing-Standing Surface Floor -EP Dynamic Standing-Level of Assistance Contact guard -EP Dynamic Standing-Comments for safety and balance -EP ADLS (WDL) X -EP Grooming: Where assessed Standing at sink -EP Grooming: Level of assistance Contact Guard Assist -EP Grooming: Assistance with Balance;Safety -EP LE Dressing: Where assessed Edge of bed -EP LE Dressing: Level of assistance Minimum Assist -EP LE Dressing: Assistance with Don/doff R sock;Don/doff L sock;Balance;Safety -EP Toileting: Where assessed Chair simulated task -EP Toileting: Level of assistance Contact Guard Assist -EP Toileting: Assistance with Balance;Safety -EP Room Mobility: Where assessed bed -> sink -> chair -EP Health Management: Equipment Walker -EP Room Mobility: Level of Assistance Contact Guard Assist -EP Room Mobility comment for safety and balance -EP Bed Mobility Yes -EP Bed Mobility From 1 Supine -EP Bed Mobility Type 1 To -EP Bed Mobility to 1 Edge of bed -EP Level of Assistance 1 Minimum Assist -EP Bed Mobility Comments 1 via logroll; assist for force production and LE management -EP Transfer Yes -EP Transfer From 1 Sit -EP Transfer Type 1 To and from -EP Transfer to 1 Stand -EP Technique 1 Sit to stand;Stand to sit -EP Transfer Device 1 Wheeled walker -EP Transfer Level of Assistance 1 Contact Guard Assist -EP Trials/Comments 1 for safety and balance -EP Toilet Transfer From Bed -EP Toilet Transfer Type To -EP Toilet Transfer to Standard bedside commode simulated with chair -EP Toilet Transfer Technique Ambulating -EP Toilet Transfer: Equipment Wheeled walker -EP Toilet Transfers Contact guard -EP Toilet Transfers Comments for safety and balance -EP Arousal/Alertness Alert;Appropriate responses to stimuli -EP Attention Span Appears intact -EP Memory Appears intact -EP Current communication Appears Intact -EP Orientation Oriented X4 (person, place, time, situation) -EP Following Commands Follows all commands and directions without difficulty -EP Safety Judgment Good awareness of safety precautions -EP Awareness of Errors Good awareness of errors made -EP Insight Fully aware of deficits -EP Problem Solving Able to problem solve independently -EP Compliance/Behavior Easy to engage -EP Perseveration Not present -EP Comments Pt requires increased time for all mobility tasks 2/2 anxiety. Pt educated on pursed lip breathing technique to control respirations. -EP Putting on and taking off regular lower body clothing 3 -EP Bathing 3 -EP Toileting 3 -EP Putting on and taking off upper body clothing 3 -EP Personal Grooming 3 -EP Eating Meals 4 -EP Total Score (range 6-24) 19 -EP Score Interpretation 40.22 -EP Safe Environment End of Therapy Session Patient left in recliner;RN notified;Call light within reach;Overbed table within reach -EP Problem List Decreased endurance;Decreased balance;Decreased functional mobility;Decreased ADL independence;Decreased IADL independence -EP Barriers to Discharge Current Mobility Status;Current ADL Status;Decreased caregiver support -EP Plan Continue with current plan;If this is the last note, consider this the discharge summary -EP OT Recommendation Care Home Facility -EP Patient at high risk for Falls;Readmission;Injury due to decreased ability to care for self;Injury due to reduced functional status;Injury due to balance deficits;Injury at home as patient has not returned to prior level of function -EP Recommend SNF due to Risk of injury at home;Unable to safely care for self in the home;Skilled therapy needed to address care for self in the home;Skilled therapy needed to address functional deficits;Skilled therapy needed for patient to return to prior level of independence -EP OT Frequency during current admission 3-5x/wk -EP Treatment/Interventions during current admission ADL/IADL retraining;Balance Training;Bed mobility;Compensatory technique education;Endurance training;Functional activity;Functional mobility training;Functional transfer training;Relaxation techniques;Strengthening;Therapeutic activity;Therapeutic ex ercise;Transfer training -EP Progress during current admission Progressing toward goals -EP OT - Next Appointment 05/18/24 -EP Start Time 803 -EP Stop Time 830 -EP Time Calculation (min) 27 min -EP User Grove (r) = Recorded By, (t) = Taken By, (c) = Cosigned By Initials Name Effective Dates EP Teresa Belcher OT 01/15/24 - OT Notes 05/14/2024 9:18 AM Progress Notes signed by Teresa Belcher OT , PT Eval and Treat Last 72 Hours PT Evaluation Row Name 05/12/24 0815 Chart Reviewed Yes -BE Session Type Evaluation -BE Safe Environment Arm band checked;Patient found in supine;Session completed bedside;Gait belt utilized for all out of bed mobility -BE Subjective Agreeable to Therapy -BE Family/Caregiver Present No -BE Physical Therapy-Patient Goal to go home -BE Precautions Fall risk;Abdominal -BE Braces/Orthoses Other abdominal binder -BE Precaution Comments Instructed in abodminal precuations. Demoes understnading with Cues. Will benefit from [id number] of educaiton -BE Type of Home House -BE Home Layout One level;Able to live on main level with bedroom/bathroom;Basement -BE Home Access Stairs to enter with rails -BE Entrance Stairs-Rails Both -BE Entrance Stairs-Number of Steps 10 -BE Bathroom Equipment Other (Comment) none -BE Home Mobility Equipment-Available Wheeled walker;Single point cane;Scooter -BE Home Mobility Equipment-Currently Using None -BE Level of [place] Independent with ADLs;Independent with ambulation;Independent functional transfers;Independent with homemaking with ambulation -BE Lives With Spouse -BE Receives Help From Spouse/Significant other;Family;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, 4day/wk, spouse, family FT assist -BE Driving Yes -BE Vocational/Occupation Retired -BE Fall within the last 6 months No -BE Activity Tolerance Comments INGE: Hard -BE Pain Assessment 0-10 -BE Pain Score 7 -BE Pain Type Surgical pain -BE Pain Location Abdomen -BE Pain Interventions RN Notified;Therapy -BE Arousal/Alertness Appropriate responses to stimuli;Alert -BE Orientation Oriented X4 (person, place, time, situation) -BE Following Commands Follows all commands and directions without difficulty -BE Safety Judgment Decreased awareness of need for assistance -BE Compliance/Behavior Easy to engage -BE Balance Tests Yes -BE 1. Sitting to Standing 1 -BE 2. Standing Unsupported 0 -BE 3. Sitting with Back Unsupported but Feet Supported on Floor or on a Stool 4 -BE 4. Standing to Sitting 0 -BE 5. Transfers 1 -BE 6. Standing Unsupported with Eyes Closed 0 -BE 7. Standing Unsupported with Feet Together 0 -BE 8. Reach Forward with Outstretched Arm While Standing 0 -BE 9. Crematory Attendant Object from Floor from a Standing Position 0 -BE 10. Turning to Look Behind Over Left and Right Shoulders While Standing 0 -BE 11. Turn 360 Degrees 0 -BE 12. Place Alternate Foot on Step or Stool While Standing Unsupported 0 -BE 13. Standing Unsupported One Foot in Front 0 -BE 14. Standing on One Leg 0 -BE [place] Balance Score 6 -BE Balance Yes -BE Static Sitting-Balance Support No upper extremity supported;Feet supported -BE Static Sitting-Sitting Surface Bed -BE Static Sitting-Level of Assistance Distant supervision -BE Static Sitting-Comment/# of Minutes safety -BE Dynamic Sitting-Balance Support No upper extremity supported;Feet supported -BE Dynamic Sitting-Balance Lateral lean;Forward lean;Head control activities (Comment);Trunk control activities -BE Dynamic Sitting-Sitting Surface Bed -BE Dynamic Sitting-Level of Assistance Distant supervision -BE Dynamic Sitting-Comments safety -BE Static Standing-Balance Support Bilateral upper extremity supported WW -BE Static Standing-Standing Surface Floor -BE Static Standing-Level of Assistance Minimum assistance -BE Static Standing-Comment/# of Minutes steadyinga ssist, balance,s afety -BE Dynamic Standing-Balance Support Bilateral upper extremity supported WW -BE Dynamic Standing-Balance -- dynamic gait -BE Dynamic Standing-Standing Surface Floor -BE Dynamic Standing-Level of Assistance Minimum assistance -BE Dynamic Standing-Comments steayding assist, flaca renee afety -BE Bed Mobility From 1 Supine -BE Bed Mobility Type 1 To and from -BE Bed Mobility to 1 Edge of bed -BE Level of Assistance 1 Minimum Assist -BE Bed Mobility Comments 1 assist for log roll, trunk eelvaiton, LEs off EOB -BE Transfer From 1 Sit -BE Transfer Type 1 To and from -BE Transfer to 1 Stand -BE Technique 1 Sit to stand;Stand to sit -BE Transfer Device 1 Wheeled walker -BE Transfer Level of Assistance 1 Minimum Assist -BE Trials/Comments 1 assist for force connie houston s teayding assist, balance intiiatlly upon kevinng, performed x 3 reps -BE Distance (ft) 1 15 15 ft x2 -BE Surface 1 Level tile -BE Device 1 Wheeled walker -BE Assistance 1 Minimum Assist -BE Gait: Requires assist with 1 Maintaining balance -BE Gait: Requires verbal cues to 1 Utilize pursed lip breathing;Pace activity;Increase base of support;Increase step length;Improve upright posture;Utilize appropriate gait sequencing;Prevent bumping into environmental barriers (avelar/furniture);Follow precautions/weight bearing status;Use assistive device safely -BE Gait Deviations 1 Base of support - decreased;Ronald - decreased;Antalgic;Heel strike - decreased;Posture - flexed;Stance time - decreased;Step length - decreased;Turns - difficulty -BE Quality of Gait 1 decreased ronald, flexed posture, decreased step length, cues for paicng self, -BE Ambulation Comments 1 noted blurry vision and dizziness iwth amb, did not resolve with sitting. returned to supine 2/2 to this. BRAILLE TRANSCRIBER made aware -BE Stairs No -BE RUE Assessment WFL -BE LUE Assessment WFL -BE RLE Assessment WFL -BE LLE Assessment WFL -BE How much difficulty does the patient have: Turning over in bed 3 -BE How much difficulty does the patient currently have: Sitting down and standing up from a chair witharms? 3 -BE How much difficulty does the patient have: Moving from lying on back to sitting on the side of the bed? 3 -BE How much difficulty does the patient have: Moving to and from a bed to a chair including wheelchair? 3 -BE How much help does the patient currently need: Walk in hospital room? 3 -BE How much help from another person does the patient currently need: Climbing 3-5 steps with a railing? 2 -BE Total 6 Click Score (range 6-24) 17 -BE Safe Environment End of Therapy Session Patient left supine in bed;RN notified;Call light within reach;Overbed table within reach;Bed in lowest position with wheels locked;Bed rails up per protocol -BE Prognosis Good -BE Problem List Gait deviations;Decreased strength;Decreased range of motion;Decreased endurance;Impaired balance;Decreased mobility;Impaired judgement;Decreased safety awareness;Decreased skin integrity;Pain;Edema -BE Problem List Comments PT Diagnosis: Pt presents with REPAIR INCISIONAL HERNIA RECONSTRUCTION ABDOMINAL WALL PMH: HTN, T2DM, asthma, BETTY, pancreatic cancer w/mets to liver (s/p whipple, radiation andchemo), anxiety, derpession, HLD, OA, hyperthyroidism results in above listed activity deficits andimpairments which prevent full participation in home and community mobility. -BE Barriers to Discharge Current Mobility Status;Decreased caregiver support;Decreased safety awareness -BE Plan Plan of care initiated;If this is the last note, consider this the discharge summary -BE PT Recommendation/Plan Inpatient Rehab Facility -BE Patient at high risk for Falls;Readmission;Injury due to decreased ability to care for self;Injury due to reduced functional status;Injury due to impaired cognition;Injury due to balance deficits;Injury at home as patient has not returned to prior level of function;Developing impaired skin integrity;Cognitive decline due to decreased social participation;Mismanagement of medications;Prolonged dependence for self care tasks;Developing secondary complications: poor health management -BE Recommend Inpatient Rehab/Acute Rehab due to Ability to actively participate in intensive therapy 3hours/day, 5 days/week or 900 minutes per week;Highly motivated to participate in therapy;Not at baseline due to impaired ability to complete ADLs;Impaired ability to complete functional mobility;Likely to return to the community at discharge with support system in place;Requires greater than 25% physical assistance with most mobility tasks;Requires greater than 25% physical assistance with most ADL tasks;Requires multiple therapy disciplines to address functional deficits;Patient and caregiverrequire specialized skilled training due to new level of function/diagnosis;Requires skilled therapy interventions to address neurological deficits -BE PT Frequency during current admission 3-5x/wk -BE Treatment/Interventions during current admission Balance Training;Bed mobility;Endurance training;Functional activity;Functional transfer training;Gait training;Neuromuscular re-education;Positioning;Parent/caregiver training and education;Range of motion;Stair training;Strengthening;Therapeutic activity;Therapeutic exercise;Transfer training -BE PT - OK to Discharge No -BE PT Evaluation Complete Yes -BE Start Time 0815 -BE Stop Time 0855 -BE Time Calculation (min) 40 min -BE User [place] (r) = Recorded By, (t) = Taken By, (c) = Cosigned By Initials Name Effective Dates BE Kriss Angelo, PT 08/22/20 - PT TREATMENT (Last 168 Hours) PT Treatment Row Name 05/14/24 0902 PT Last Visit Session Type Treatment -BE Safe Environment Arm band checked;Patient found in supine;Session completed bedside;Gait belt utilized for all out of bed mobility -BE Subjective Agreeable to Therapy -BE Family/Caregiver Present No -BE Precautions Precautions Fall risk;Abdominal -BE Braces/Orthoses Other abdominal binder -BE Precaution Comments Instructed in abdominal binder and abdominal precautions. Will benefit from further instruction -BE Activity Tolerance Activity Tolerance Comments INGE: SH -BE Pain Assessment Pain Assessment 0-10 -BE Pain Score 1 -BE Pain Type Surgical pain -BE Pain Location Abdomen -BE Pain Interventions RN Notified;Therapy -BE Cognition Arousal/Alertness Alert;Appropriate responses to stimuli -BE Orientation Oriented X4 (person, place, time, situation) -BE Following Commands Follows all commands and directions without difficulty -BE Safety Judgment Good awareness of safety precautions -BE Compliance/Behavior Easy to engage -BE Static Sitting Balance Static Sitting-Balance Support No upper extremity supported;Feet supported -BE Static Sitting-Sitting Surface Chair -BE Static Sitting-Level of Assistance Distant supervision -BE Static Sitting-Comment/# of Minutes safety -BE Dynamic Sitting Balance Dynamic Sitting-Balance Support No upper extremity supported;Feet supported -BE Dynamic Sitting-Balance Lateral lean;Forward lean;Head control activities (Comment);Trunk control activities -BE Dynamic Sitting-Sitting Surface Chair -BE Dynamic Sitting-Level of Assistance Distant supervision -BE Dynamic Sitting-Comments safety -BE Static Standing Balance Static Standing-Balance Support Bilateral upper extremity supported;No upper extremity supported -BE Static Standing-Standing Surface Floor -BE Static Standing-Level of Assistance Contact guard -BE Static Standing-Comment/# of Minutes steadyinga sistthelma sa fety -BE Dynamic Standing Balance Dynamic Standing-Balance Support Bilateral upper extremity supported WW -BE Dynamic Standing-Balance -- dynamic gait -BE Dynamic Standing-Standing Surface Floor -BE Dynamic Standing-Level of Assistance Contact guard -BE Dynamic Standing-Comments steadying assitthelma sa fety -BE Bed Mobility Bed Mobility No up in chair at beginning and end of session -BE Transfer 1 Transfer From 1 Sit -BE Transfer Type 1 To and from -BE Transfer to 1 Stand -BE Technique 1 Sit to stand;Stand to sit -BE Transfer Device 1 Wheeled walker -BE Transfer Level of Assistance 1 Contact Guard Assist -BE Trials/Comments 1 steadying dougiethelma s afety -BE Ambulation 1 Distance (ft) 1 90 -BE Surface 1 Level tile -BE Device 1 Wheeled walker -BE Assistance 1 Contact Guard Assist -BE Gait: Requires assist with 1 Maintaining balance -BE Gait: Requires verbal cues to 1 Use assistive device safely;Follow precautions/weight bearing status;Prevent bumping into environmental barriers (avelar/furniture);Utilize appropriate gait sequencing;Improve upright posture;Increase step length;Pace activity;Increase base of support;Utilize pursed lip breathing -BE Gait Deviations 1 Base of support - decreased;Ronald - decreased;Antalgic;Heel strike - decreased;Posture - flexed;Stance time - decreased;Step length - decreased -BE Quality of Gait 1 decreased ronald, flexed posture,d ecreased step length, cues for sequenicng, pacing -BE Ambulation Comments 1 10 M = 30 sec = 0.33 M/sec, indicates high fall risk. Pt also amb on 2 L O2 with all mobility with PT this date -BE Stairs Stairs No -BE Stair Comments Pt with 10 steps into home, unable to assess this date 22/ uanble to amb to stair well and fatigue with amb -BE Basic Mobility - 6 Click How much difficulty does the patient have: Turning over in bed 3 -BE How much difficulty does the patient currently have: Sitting down and standing up from a chair witharms? 3 -BE How much difficulty does the patient have: Moving from lying on back to sitting on the side of the bed? 3 -BE How much difficulty does the patient have: Moving to and from a bed to a chair including wheelchair? 3 -BE How much help does the patient currently need: Walk in hospital room? 3 -BE How much help from another person does the patient currently need: Climbing 3-5 steps with a railing? 2 -BE Total 6 Click Score (range 6-24) 17 -BE Safe Environment End of Therapy Session Safe Environment End of Therapy Session Patient left in recliner;RN notified;Call light within reach;Overbed table within reach;Bed rails up per protocol;Bed in lowest position with wheels locked -BE Assessment Prognosis Good -BE Problem List Gait deviations;Decreased strength;Decreased range of motion;Decreased endurance;Impaired balance;Decreased mobility;Impaired judgement;Decreased safety awareness;Decreased skin integrity;Pain;Edema -BE Barriers to Discharge Current Mobility Status;Decreased caregiver support;Decreased safety awareness -BE Plan Plan Alter current plan;If this is the last note, consider this the discharge summary -BE Plan Comments update dc rec -BE Recommendation/Plan PT Recommendation/Plan Care Home Facility -BE Patient at high risk for Falls;Readmission;Injury due to decreased ability to care for self;Injury due to reduced functional status;Injury due to impaired cognition;Injury due to balance deficits;Injury at home as patient has not returned to prior level of function;Developing impaired skin integrity;Cognitive decline due to decreased social participation;Mismanagement of medications;Prolonged dependence for self care tasks;Developing secondary complications: poor health management -BE Recommend SNF due to Risk of injury at home;Unable to safely care for self in the home;Skilled therapy needed to address care for self in the home;Skilled therapy needed to address functional deficits;Skilled therapy needed for patient to return to prior level of independence -BE PT Frequency during current admission 3-5x/wk -BE Treatment/Interventions during current admission Balance Training;Bed mobility;Endurance training;Functional activity;Functional transfer training;Gait training;Neuromuscular re-education;Positioning;Parent/caregiver training and education;Range of motion;Stair training;Strengthening;Therapeutic activity;Therapeutic exercise;Transfer training -BE PT Equipment Recommended None -BE Progress during current admission Progressing toward goals -BE Time Calculation Start Time 0902 -BE Stop Time 0930 -BE Time Calculation (min) 28 min -BE User [place] (r) = Recorded By, (t) = Taken By, (c) = Cosigned By Initials Name Effective Dates BE Kriss Angelo, PT 08/22/20 - PT Notes 05/12/2024 10:17 AM Progress Notes signed by Kriss Angelo, DANY 05/14/2024 9:39 AM Progress Notes signed by Kriss Angelo, PT * Plan of Care - Nuzhat Mauricio RRT - 05/14/2024 12:35 PM CDT Toleration - Patient tolerated without issue.. Bronchial Hygiene Assessment Score - 7 Pulmonary Status Smoking Less Than 1 Pack Per Day Surgical Status Lower Abdominal Chest X-ray Infiltrates, Lung Mass, Atelectasis, Pleural Effusion Respiratory Pattern Regular, Respiratory Rate < 20 Mental Status Alert, Cooperative Cough Strong, Non-Productive Breath Sounds Decreased Bilaterllly Activity Level Ambulatory O2 Requirement No Oxygen Pt Score Level Suggested Frequency 1-12 1 Turn to bedside for RN to encourage deep breath and cough, IS, or OOB - TID 13-24 2 Implement chosen bronchial hygiene mode with a suggested frequency of - TID 25-36 3 Implement chosen bronchial hygiene mode with a suggested frequency of - TID to Q4 hours Note: Score gives a general indication of pulmonary risk. Clinical judgement may yield a different recommended therapy or frequency. Plan - Patient is able to use the device independently. Per the bronchial hygiene protocol, the ordered therapy will be turned to bedside for nursing to remind and chart * Plan of Care - Yani Marlow RN - 05/14/2024 10:06 AM CDT Problem: Medication Goal: Agree to be compliant with medication regime, as prescribed and report medication side effects Outcome: Progressing Goal: Satisfaction with pain management medication regimen will improve Outcome: Progressing Problem: Sensory Goal: Ability to identify factors that increase pain levels will improve while working to decrease the patient's pain levels Outcome: Progressing Problem: Coping Goal: Ability to cope will improve Outcome: Progressing Problem: Health Behavior Goal: Identification of resources available to assist in meeting health care needs will improve Outcome: Progressing Problem: Activity Goal: Risk for activity intolerance and fatigue will decrease Outcome: Progressing Goal: Ability to tolerate increased activity will improve Outcome: Progressing Goal: Ability to avoid complications of mobility impairment will improve Outcome: Progressing Problem: Discharge Planning Goal: Understanding discharge needs will improve Outcome: Progressing Problem: Fluid Volume Goal: Ability to maintain a balanced intake and output will improve Outcome: Progressing Problem: Tissue Perfusion Goal: Adequacy of tissue perfusion will improve Outcome: Progressing Problem: Fall Risk Goal: Ability to state ways to decrease the risk of falls will improve Outcome: Progressing Goal: Will remain free from falls Outcome: Progressing Goal: Will remain free from injury from falls Outcome: Progressing Problem: Lack of Knowledge Goal: Ability to develop a pain control plan will improve Outcome: Progressing Problem: Coping Goal: Verbalization of decreased anxiety will be supported Outcome: Progressing Goal: Able to verbalize concerns and demonstrate effective coping strategies Outcome: Progressing Problem: Nutritional Goal: Nutrient intake appropriate for improving, restoring or maintaining nutritional needs Outcome: Progressing Goal: Implement dietary regimen as ordered Outcome: Progressing Problem: Self-Care Goal: Ability to participate in self-care as condition permits will improve Outcome: Progressing Problem: Sensory Goal: General experience of comfort will improve Outcome: Progressing Goals: Clinical Goals for the Shift: VSS, pain control, nausea/vomiting control, drain care, ambulate safely Manager Rn Patient Centered Goal for Treatment: Safe discharge * Plan of Care - Myrna Ross RN - 05/13/2024 10:31 PM CDT Goals: Clinical Goals for the Shift: VSS, pain/nausea control, toleration of diet, I&O, drain care, safety. Manager Rn Patient Centered Goal for Treatment: Safe discharge Problem: Medication Goal: Agree to be compliant with medication regime, as prescribed and report medication side effects Outcome: Progressing Goal: Satisfaction with pain management medication regimen will improve Outcome: Progressing Problem: Sensory Goal: Ability to identify factors that increase pain levels will improve while working to decrease the patient's pain levels Outcome: Progressing Problem: Coping Goal: Ability to cope will improve Outcome: Progressing Problem: Health Behavior Goal: Identification of resources available to assist in meeting health care needs will improve Outcome: Progressing Problem: Activity Goal: Risk for activity intolerance and fatigue will decrease Outcome: Progressing Goal: Ability to tolerate increased activity will improve Outcome: Progressing Goal: Ability to avoid complications of mobility impairment will improve Outcome: Progressing Problem: Discharge Planning Goal: Understanding discharge needs will improve Outcome: Progressing Problem: Fluid Volume Goal: Ability to maintain a balanced intake and output will improve Outcome: Progressing Problem: Tissue Perfusion Goal: Adequacy of tissue perfusion will improve Outcome: Progressing Problem: Fall Risk Goal: Ability to state ways to decrease the risk of falls will improve Outcome: Progressing Goal: Will remain free from falls Outcome: Progressing Goal: Will remain free from injury from falls Outcome: Progressing Problem: Lack of Knowledge Goal: Ability to develop a pain control plan will improve Outcome: Progressing Problem: Coping Goal: Verbalization of decreased anxiety will be supported Outcome: Progressing Goal: Able to verbalize concerns and demonstrate effective coping strategies Outcome: Progressing Problem: Nutritional Goal: Nutrient intake appropriate for improving, restoring or maintaining nutritional needs Outcome: Progressing Goal: Implement dietary regimen as ordered Outcome: Progressing Problem: Self-Care Goal: Ability to participate in self-care as condition permits will improve Outcome: Progressing Problem: Sensory Goal: General experience of comfort will improve Outcome: Progressing * Plan of Care - Jennifer Levi RN - 05/13/2024 1:07 PM CDT 05/13/24 1307 Discharge Planning Support System Spouse/Significant Other Anticipated discharge level of care Acute Rehab Post Acute Care Plan Post Acute Care Facility Yes Referral Status Started CM Progression of Care Update Per Medical Chart/Rounds/IDR: NOT MEDICALLY READY awaiting return of bowel function ADD: 05/16 Discharge Plan:DC plan PENDING - prefers dc to acute rehab - if not approved may consider dc to snfvers home with Transportation: PENDING Referrals: REHAB -[facility] - Contact Aracelis [phone] SNF - Proactive referrals sent (after review of list and PENDING [facility] - proactive referral sent (still need ORDER) [facility] Contact Mariela Accepted for soc 05/16 for PT and OT Support at discharge: spouse Karina [phone] Discharge Barriers: awaiting return of bowel function F/U Appointments: smita 05/27 Patient's Identified Problem/Goal Problem:?Ensure acute medical needs are met and that patient has a safe discharge plan. Goal:?Secure a discharge plan that patient/family are agreeable with?and ensure patient has continuum of care. Patient and/or family are agreeable with plan. tooling manager will continue to follow and assist with discharge planning as needed. If any further discharge needs arise, please contact the covering case mgr. * [facility] Note - Jennifer Levi RN - 05/13/2024 1:03 PM CDT Images from the original note were not included. Patient Information: OT Eval and Treat Last 72 Hours OT Evaluation Row Name 05/12/24 1446 Chart Reviewed Yes -MH (r) CK (c) Session Type Evaluation - (r) CK (c) OT Received On 05/12/24 -MH (r) CK (c) Safe Environment Arm band checked;Patient found sitting at edge of bed;Gait belt not utilized, see comment dt surgical incision -MH (r) CK (c) Subjective Agreeable to Therapy -MH (r) CK (c) Family/Caregiver Present Yes -MH (r) CK (c) Occupational Therapy-Patient Goal Agreeable to POC - (r) CK (c) Precautions Abdominal;Fall risk -MH (r) CK (c) Braces/Orthoses Other abdominal binder - (r) CK (c) Precaution Comments Pt. education on abdominal precautions. Pt verbalized understanding -MH (r) CK (c) Type of Home House -MH (r) CK (c) Home Layout One level - (r) CK (c) Home Access Stairs to enter with rails -MH (r) CK (c) Entrance Stairs-Rails Both - (r) CK (c) Entrance Stairs-Number of Steps 10 -MH (r) CK (c) Bathroom Shower/Tub Tub/shower unit - (r) CK (c) Bathroom Toilet Standard - (r) CK (c) Home Mobility Equipment-Available Walker;Single point cane - (r) CK (c) Home Mobility Equipment-Currently Using None uses cart for community outings - (r) CK (c) Home ADL Equipment-Available None - (r) CK (c) Home ADL Equipment-Currently Using None - (r) CK (c) Level of [place] Independent with ADLs;Independent functional transfers;Independent with ambulation -MH (r) CK (c) Lives With Spouse -MH (r) CK (c) Receives Help From Spouse/Significant other in mornings, daughter/sister as needed -MH (r) CK (c) Driving Yes -MH (r) CK (c) ADL Assistance Independent - (r) CK (c) Instrumental ADL (IADL) Assistance Independent - (r) CK (c) Vocational/Occupation Retired - (r) CK (c) Fall within the last 6 months No - (r) CK (c) ADLS (WDL) X - (r) CK (c) Grooming: Where assessed Other (Comment) Sitting in recliner. Baseline standing - (r) CK (c) Grooming: Level of assistance Moderate Assist dt sitting - (r) CK (c) LE Dressing: Where assessed Sitting - (r) CK (c) LE Dressing: Level of assistance Moderate Assist attempted figure-4 technique. unable to perform dtpain, faitgue, and drowziness - (r) CK (c) LE Dressing: Assistance with Safety Min A balance, Dependent task - (r) CK (c) Toilet Transfer From Bed - (r) CK (c) Toilet Transfer Type To - (r) CK (c) Toilet Transfer to Standard bedside commode simulated - (r) CK (c) Toilet Transfer Technique Stand and Step - (r) CK (c) Toilet Transfer: Equipment Hand hold - (r) CK (c) Toilet Transfers Minimal assistance - (r) CK (c) Toilet Transfers Comments assist for force production to rise, steading assist when steping to chair, assist to control decent and verbal cues for hand placement on recliner - (r) CK (c) Pain Assessment 0-10 - (r) CK (c) Pain Score 8 - (r) CK (c) Pain Interventions RN Notified - (r) CK (c) Overall Cognitive Status WFL - (r) CK (c) Arousal/Alertness Alert;Appropriate responses to stimuli - (r) CK (c) Attention Span Appears intact - (r) CK (c) Memory Appears intact - (r) CK (c) Current communication Appears Intact - (r) CK (c) Orientation Oriented X4 (person, place, time, situation) - (r) CK (c) Following Commands Follows all commands and directions without difficulty -MH (r) CK (c) Safety Judgment Good awareness of safety precautions - (r) CK (c) Awareness of Errors Good awareness of errors made -MH (r) CK (c) Insight Fully aware of deficits -MH (r) CK (c) Problem Solving Able to problem solve independently -MH (r) CK (c) Compliance/Behavior Easy to engage -MH (r) CK (c) Perseveration Not present -MH (r) CK (c) Cognitive Tests Yes -MH (r) CK (c) What year is it now? 0 -MH (r) CK (c) What month is it now? 0 -MH (r) CK (c) Repeat this name and address after me [address]el [address] [place] [address] -MH (r) CK (c) Without looking at the clock, tell me what time it is 3 -MH (r) CK (c) Count aloud backwards from 20-1 0 -MH (r) CK (c) Say the months of the year backwards in reverse order 0 -MH (r) CK (c) Repeat the name and address I asked you to remember 0 -MH (r) CK (c) Short Blessed Total Score 3 -MH Balance Tests Yes -MH (r) CK (c) Sitting Balance 1 -MH (r) CK (c) Arises 1 -MH (r) CK (c) Attempts to Arise 2 -MH (r) CK (c) Immediate Standing Balance (First 5 Seconds) 1 -MH (r) CK (c) Standing Balance 1 -MH (r) CK (c) Nudged 1 -MH (r) CK (c) Eyes Closed 0 -MH (r) CK (c) Turned 360 Degrees: Steadiness 0 -MH (r) CK (c) Turned 360 Degrees: Continuity of Steps 0 -MH (r) CK (c) Sitting Down 1 -MH (r) CK (c) Balance Score 8 -MH Balance Yes -MH (r) CK (c) Static Sitting-Balance Support Feet supported -MH (r) CK (c) Static Sitting-Sitting Surface Bed -MH (r) CK (c) Static Sitting-Level of Assistance Distant supervision -MH (r) CK (c) Static Sitting-Comment/# of Minutes safety -MH (r) CK (c) Dynamic Sitting-Balance Support Feet supported -MH (r) CK (c) Dynamic Sitting-Balance Lateral lean;Forward lean -MH (r) CK (c) Dynamic Sitting-Sitting Surface Chair -MH (r) CK (c) Dynamic Sitting-Level of Assistance Distant supervision -MH (r) CK (c) Dynamic Sitting-Comments safety -MH (r) CK (c) Static Standing-Balance Support Bilateral upper extremity supported -MH (r) CK (c) Static Standing-Standing Surface Floor -MH (r) CK (c) Static Standing-Level of Assistance Minimum assistance -MH (r) CK (c) Static Standing-Comment/# of Minutes steadying assist, balance, safety -MH (r) CK (c) Dynamic Standing-Balance Support Bilateral upper extremity supported -MH (r) CK (c) Dynamic Standing-Balance Lateral lean;Forward lean -MH (r) CK (c) Dynamic Standing-Standing Surface Floor -MH (r) CK (c) Dynamic Standing-Level of Assistance Minimum assistance -MH (r) CK (c) Dynamic Standing-Comments steadying assist, balance, safety -MH (r) CK (c) Bed Mobility No -MH (r) CK (c) Transfer Yes -MH (r) CK (c) Transfer From 1 Sit -MH (r) CK (c) Transfer Type 1 To -MH (r) CK (c) Transfer to 1 Stand -MH (r) CK (c) Technique 1 Sit to stand -MH (r) CK (c) Transfer Device 1 Hand held assist -MH (r) CK (c) Transfer Level of Assistance 1 Minimum Assist -MH (r) CK (c) Trials/Comments 1 assist for force produciton, steadying assist for balance intitally upon standing-MH (r) CK (c) Transfer From 2 Bed -MH (r) CK (c) Transfer Type 2 To -MH (r) CK (c) Transfer to 2 Chair with arms -MH (r) CK (c) Technique 2 Ambulation -MH (r) CK (c) Transfer Device 2 Hand held assist -MH (r) CK (c) Transfer Level of Assistance 2 Minimum Assist -MH (r) CK (c) Trials/Comments 2 for balance, safety, and steadying support -MH (r) CK (c) RUE Assessment WFL -MH (r) CK (c) LUE Assessment WFL -MH (r) CK (c) Putting on and taking off regular lower body clothing 2 -MH (r) CK (c) Bathing 3 -MH (r) CK (c) Toileting 3 -MH (r) CK (c) Putting on and taking off upper body clothing 3 -MH (r) CK (c) Personal Grooming 3 -MH (r) CK (c) Eating Meals 4 -MH (r) CK (c) Total Score (range 6-24) 18 -MH Score Interpretation 38.66 - (r) CK (c) Safe Environment End of Therapy Session Patient left in recliner;RN notified;Call light within reach;Overbed table within reach - (r) CK (c) Problem List Decreased endurance;Decreased balance;Decreased functional mobility;Decreased ADL independence;Decreased IADL independence;Pain - (r) CK (c) Barriers to Discharge Current Mobility Status;Current ADL Status;Decreased caregiver support - (r) CK (c) Plan Plan of care initiated;If this is the last note, consider this the discharge summary - (r) CK (c) OT Recommendation Care Home Facility - (r) CK (c) Patient at high risk for Falls;Injury due to decreased ability to care for self;Injury due to reduced functional status;Injury due to balance deficits;Injury at home as patient has not returned to prior level of function - (r) CK (c) Recommend SNF due to Skilled therapy needed for patient to return to prior level of independence;Skilled therapy needed to address functional deficits;Skilled therapy needed to address care for self in the home;Unable to safely care for self in the home;Risk of injury at home - (r) CK (c) OT Frequency during current admission 3-5x/wk - (r) CK (c) Treatment/Interventions during current admission ADL/IADL retraining;Balance Training;Bed mobility;Functional activity;Functional mobility training;Functional transfer training;Transfer training - (r) CK (c) OT - Next Appointment 05/13/24 -MH (r) CK (c) OT - OK to Discharge No - (r) CK (c) OT Evaluation Complete Yes - (r) CK (c) Start Time 1446 -MH (r) CK (c) Stop Time 1520 -MH (r) CK (c) Time Calculation (min) 34 min - User [place] (r) = Recorded By, (t) = Taken By, (c) = Cosigned By Initials Name Effective Dates Viridiana Barajas 05/09/24 - CK Manisha Bourne, OT 05/10/22 - OT Treatment No documentation. OT Notes Notes from 05/11/24 through 05/13/24 No notes of this type exist for this encounter. * Plan of Care - Teagan Long RN - 05/13/2024 7:54 AM CDT Goals: Clinical Goals for the Shift: Monitor VS, I&O, pain control, up to chair, safety Care Home Patient Centered Goal for Treatment: Safe Discharge Problem: Medication Goal: Agree to be compliant with medication regime, as prescribed and report medication side effects Outcome: Progressing Goal: Satisfaction with pain management medication regimen will improve Outcome: Progressing Problem: Sensory Goal: Ability to identify factors that increase pain levels will improve while working to decrease the patient's pain levels Outcome: Progressing Problem: Coping Goal: Ability to cope will improve Outcome: Progressing Problem: Health Behavior Goal: Identification of resources available to assist in meeting health care needs will improve Outcome: Progressing Problem: Lack of Knowledge Goal: Ability to develop a pain control plan will improve Outcome: Progressing Problem: Activity Goal: Risk for activity intolerance and fatigue will decrease Outcome: Progressing Goal: Ability to tolerate increased activity will improve Outcome: Progressing Goal: Ability to avoid complications of mobility impairment will improve Outcome: Progressing Problem: Discharge Planning Goal: Understanding discharge needs will improve Outcome: Progressing Problem: Fluid Volume Goal: Ability to maintain a balanced intake and output will improve Outcome: Progressing * Plan of Care - Myrna Ross RN - 05/13/2024 12:07 AM CDT Goals: Clinical Goals for the Shift: VSS, pain/nausea control, drain care, I&O, tolerations of diet, ambulation, safety. Manager Rn Patient Centered Goal for Treatment: Safe discharge, toleration of diet. Problem: Medication Goal: Agree to be compliant with medication regime, as prescribed and report medication side effects 05/13/2024 0007 by Myrna Ross RN Outcome: Progressing 05/13/20246 by Myrna Ross RN Outcome: Progressing Goal: Satisfaction with pain management medication regimen will improve 05/13/20246 by Myrna Ross RN Outcome: Progressing 05/13/20246 by Myrna Ross RN Outcome: Progressing Problem: Sensory Goal: Ability to identify factors that increase pain levels will improve while working to decrease the patient's pain levels 05/13/20246 by Myrna Ross RN Outcome: Progressing 05/13/20246 by Myrna Ross RN Outcome: Progressing Problem: Coping Goal: Ability to cope will improve 05/13/20246 by Myrna Ross RN Outcome: Progressing 05/13/20246 by Myrna Ross RN Outcome: Progressing Problem: Health Behavior Goal: Identification of resources available to assist in meeting health care needs will improve 05/13/20246 by Myrna Ross RN Outcome: Progressing 05/13/20246 by Myrna Ross RN Outcome: Progressing Problem: Activity Goal: Risk for activity intolerance and fatigue will decrease 05/13/20246 by Myrna Ross RN Outcome: Progressing 05/13/20246 by Myrna Ross RN Outcome: Progressing Goal: Ability to tolerate increased activity will improve 05/13/20246 by Myrna Ross RN Outcome: Progressing 05/13/20246 by Myrna Ross RN Outcome: Progressing Goal: Ability to avoid complications of mobility impairment will improve 05/13/20246 by Myrna Ross RN Outcome: Progressing 05/13/20246 by Myrna Ross RN Outcome: Progressing Problem: Discharge Planning Goal: Understanding discharge needs will improve 05/13/20246 by Myrna Ross RN Outcome: Progressing 05/13/20246 by Myrna Ross RN Outcome: Progressing Problem: Fluid Volume Goal: Ability to maintain a balanced intake and output will improve 05/13/20246 by Myrna Ross RN Outcome: Progressing 05/13/20246 by Myrna Ross RN Outcome: Progressing Problem: Tissue Perfusion Goal: Adequacy of tissue perfusion will improve 05/13/20246 by Myrna Ross RN Outcome: Progressing 05/13/20246 by Myrna Ross RN Outcome: Progressing Problem: Fall Risk Goal: Ability to state ways to decrease the risk of falls will improve 05/13/20246 by Myrna Ross RN Outcome: Progressing 05/13/20246 by Myrna Ross RN Outcome: Progressing Goal: Will remain free from falls 05/13/20246 by Myrna Ross RN Outcome: Progressing 05/13/20246 by Myrna Ross RN Outcome: Progressing Goal: Will remain free from injury from falls 05/13/20246 by Myrna Ross RN Outcome: Progressing 05/13/20246 by Myrna Ross RN Outcome: Progressing Problem: Lack of Knowledge Goal: Ability to develop a pain control plan will improve 05/13/20246 by Myrna Ross RN Outcome: Progressing 05/13/20246 by Myrna Ross RN Outcome: Progressing Problem: Coping Goal: Verbalization of decreased anxiety will be supported 05/13/20246 by Myrna Ross RN Outcome: Progressing 05/13/20246 by Myrna Ross RN Outcome: Progressing Goal: Able to verbalize concerns and demonstrate effective coping strategies 05/13/20246 by Myrna Ross RN Outcome: Progressing 05/13/20246 by Myrna Ross RN Outcome: Progressing Problem: Nutritional Goal: Nutrient intake appropriate for improving, restoring or maintaining nutritional needs 05/13/20246 by Myrna Ross RN Outcome: Progressing 05/13/20246 by Myrna Ross RN Outcome: Progressing Goal: Implement dietary regimen as ordered 05/13/20246 by Myrna Ross RN Outcome: Progressing 05/13/20246 by Myrna Ross RN Outcome: Progressing Problem: Self-Care Goal: Ability to participate in self-care as condition permits will improve 05/13/20246 by Myrna Ross RN Outcome: Progressing 05/13/20246 by Myrna Ross RN Outcome: Progressing Problem: Sensory Goal: General experience of comfort will improve 05/13/20246 by Myrna Ross RN Outcome: Progressing 05/13/20246 by Myrna Ross RN Outcome: Progressing * ECIN Note - Jennifer Levi RN - 05/12/2024 11:31 AM CDT Images from the original note were not included. Patient Information: Comprehensive Nursing Documentation Attending Provider: Sabino Luke MD Allergies: Iv Contrast Dye [Iodinated Contrast Media], Amoxicillin, Kiwi, Macrolide Antibiotics, Naproxen Sodium, Nitrofurantoin, Penicillins, Sulfadiazine Isolation: None Infection: None Code Status: FULL Ht: 157.5 cm (5' 2 ) Wt: 70.8 kg (156 lb) Admission Cmt: None Principal Problem: Incarcerated incisional hernia [K43.0] Elopement Risk Date/Time Risk/Reason for Elopement User 05/12/24 0730 No risk HNH 05/11/24 2329 No risk MJ 05/11/24 1740 No risk CHARITO 05/11/24 1103 No risk SD Intake/Output 05/11/24 0700 - 05/12/24 0659 05/12/24 0700 - 05/13/24 0659 [id number] 1500-3075 7350-6089 Total 4699-8092 8193-8615 0166-0239 Total Intake (ml) 1300 1300 -- 2600 1615 -- -- 1615 Output (ml) 75 410 248 733 235 -- -- 235 Net (ml) 1225 890 -248 1867 1380 -- -- 1380 Last Weight -- -- 70.8 kg (156 lb) -- -- -- -- -- Patient Lines/Drains/Airways Status Active Airway / Central venous catheter / Drain / Epidural cathether / Intraosseous line / Peripherally inserted central catheter / Peripheral intravenous line / Arterial line Name Placement date Placement time Site Days Closed/Suction/Open Drain 1 Right RUQ Bulb 19 Fr. 05/11/24 1605 RUQ less than 1 Closed/Suction/Open Drain 2 Left LUQ Bulb 19 Fr. 05/11/24 1606 LUQ less than 1 Closed/Suction/Open Drain 3 Right RLQ Bulb 15 Fr. 05/11/24 1702 RLQ less than 1 Urethral Catheter Double-lumen;Non-latex;Straight-tip 05/11/24 1245 -- less than 1 Peripheral IV 05/11/24 20 G Left Hand 05/11/24 1103 Hand 1 Peripheral IV 05/11/24 20 G Left Forearm 05/11/24 1316 Forearm less than 1 Active Wound Assessment Active Wound / Pressure injury / Cespedes / Negative Pressure Wound / Incision Wound Incision Abdomen Mid-line Date First Assessed -- Site Abdomen Time First Assessed -- Days -- Primary Wound Type: Incision Location Orientation: Mid-line Assessments Row Name 05/12/24 0905/11/24201405/11/24 1900 05/11/24 1830 05/11/24 1800 Dressing Status Intact;Drainage shadowing Drainage shadowing;Clean/Dry/Intact Clean/Dry/Intact;Drainage shadowing Clean/Dry/Intact;Drainage shadowing Clean/Dry/Intact;Drainage shadowing Site Assessment AMBER Dressing in place AMBER AMBER AMBER AMBER Shape & Pattern Linear -- -- -- -- Ana-wound Assessment Dry;Intact Dry;Intact -- -- -- Interventions Site care -- -- -- -- [place] dressing -- Adhesive bandage;Other (Comment) airstrip Adhesive bandage;Other (Comment) airstrip Adhesive bandage;Other (Comment) airstrip Closure Unable to assess Dressing in place [place] -- -- -- Row Name 05/11/24 1740 Dressing Status Clean/Dry/Intact;Drainage shadowing Site Assessment AMBER Shape & Pattern -- Ana-wound Assessment -- Interventions -- Dressing Adhesive bandage;Other (Comment) airstrip Closure -- Surgical Site 06/02/18 Back Date First Assessed 06/02/18 Site Back Time First Assessed 1226 Days 2170 Assessments Surgical Site 06/23/18 Back Date First Assessed 06/23/18 Site Back Time First Assessed 0936 Days 2150 Assessments Bee Fall Risk Flowsheet Row Most Recent Value Prior Fall Event (Autopopulated from EMR) None found ............filed at 05/12/2024 09 History of Falling 0 ............filed at 05/12/2024 09 Secondary Diagnosis 15 ............filed at 05/12/2024 09 Ambulatory Aids 15 ............filed at 05/12/2024 09 Intravenous Therapy/Heparin/Saline Lock 20 ............filed at 05/12/2024 09 Gait/Transferring 10 ............filed at 05/12/2024 09 Mental Status 0 ............filed at 05/12/2024 09 Bee Fall Risk Score 60 ............filed at 05/12/2024 09 Vital Signs 05/11 0700 05/12 0659 05/12 0705/12 1131 Most Recent Temp (??C) 36.4 - 37.1 36.7 36.7 (98.1) 05/12 818 Pulse 65 - 95 93 - 120 108 05/12 0850 Resp 11 - 23 20 20 05/12 818 SpO2 (%) 94 - 100 90 - 97 90 05/12 0850 BP 116/82 - 133/87 114/72 - 143/90 140/82 05/12 0850 MAP (mmHg) 89 - 101 84 - 101 98 05/12 0850 Default Flowsheet Data (most recent) Endurance Tests No documentation. Nursing Nutrition None Nursing Mobility Activity 05/12 1035 Resting in bed 05/12 1014 Resting in bed 05/12 09 Resting in bed 05/12 0840 Ambulate in room 05/12 0818 Resting in bed 05/12 0730 Resting in bed 05/12 0000 Dangle;Ambulate in room;Stand at bedside Patient Assistance 05/12 08 Modified independent, requires aide device or extra time Assistive Device/Equipment Needed 05/12 08 Walker Ambulation Response 05/12 0840 Tolerated fairly well (Comment: Per PT, patient experienced dizziness and unsteady gait) 05/12 0000 Tolerated poorly (Comment: Pt felt unsteady) Patient Repositioned 05/12 1035 Turn self 05/12 1014 Turn self 05/12 09 Turn self 05/12 0818 Turn self 05/12 07 Turn self Bed Position 05/12 1035 HOB 30 05/12 1014 HOB 30 05/12 09 HOB 30 05/12 0840 HOB 30 05/12 0818 HOB < 20 05/12 0730 HOB 30 05/11 1900 HOB < 20 05/11 1830 HOB < 20 05/11 1800 HOB < 20 05/11 1740 HOB < 20 Range of Motion 05/12 1035 Active;All extremities 05/12 900 Active;All extremities 05/12 08 Active;All extremities 05/12 730 Active;All extremities Type of Device 05/12 103 Mechanical compression 05/12 900 Mechanical compression 05/12 08 Mechanical compression 05/12 07 Mechanical compression 05/11 1900 Mechanical compression 05/11 1830 Mechanical compression 05/11 1800 Mechanical compression 05/11 1740 Mechanical compression Mechanical Compression Site 05/12 1035 Bilateral 05/12 09 Bilateral 05/12 08 Bilateral 05/12 07 Bilateral Mechanical Compression Type 05/12 1035 IPC/SCD 05/12 900 IPC/SCD 05/12 08 IPC/SCD 05/12 730 IPC/SCD Mechanical Compression Status 05/12 1035 On 05/12 0900 On 05/12 0840 On 05/12 730 On , Vitals Info Only Vital Signs 05/11 0659 05/12 0705/12 1131 Most Recent Temp (??C) 36.4 - 37.1 36.7 36.7 (98.1) 05/12 0818 Pulse 65 - 95 93 - 120 108 05/12 0850 Resp 11 - 23 20 20 05/12 0818 SpO2 (%) 94 - 100 90 - 97 90 05/12 0850 BP 116/82 - 133/87 114/72 - 143/90 140/82 05/12 0850 MAP (mmHg) 89 - 101 84 - 101 98 05/12 0850 * ECIN Note - Jennifer Levi RN - 05/12/2024 11:31 AM CDT Current Facility-Administered Medications Medication Dose Route Frequency Provider Last Rate Last Admin acetaminophen (TYLENOL) tablet 1,000 mg 1,000 mg oral Q8H ETELVINA Roverto Mreino MD 1,000 mg at1 0548 albuterol HFA (PROVENTIL HFA,VENTOLIN HFA,PROAIR HFA) 90 mcg/actuation inhaler 2 puff 2 puff inhalation Q6H PRN (RT) Shola Phelan MD amLODIPine (NORVASC) tablet 10 mg 10 mg oral Daily - 0600 Roverto Merino MD 10 mg at 05/12/24 0548 Carrier Fluids for Secondary Infusion - 0.9% Sodium Chloride 30 mL intravenous PRN Delmi Merino MD cyclobenzaprine (FLEXERIL) tablet 10 mg 10 mg oral Q8H Josselin Read, BRAILLE TRANSCRIBER 10 mg at 05/12/24 0901 dextrose gel in packet 15 g 15 g oral Q15 Min PRN Roverto Merino MD Or dextrose (D10W) 10% bolus 250 mL 250 mL intravenous Q15 Min PRN Roverto Merino MD docusate sodium (COLACE) capsule 100 mg 100 mg oral BID Roverto Merino MD 100 mg at 05/12/24 0901 glucagon injection 1 mg 1 mg intramuscular Q30 Min PRN Roverto Merino MD heparin 5,000 unit/mL injection 5,000 Units 5,000 Units subcutaneous Q8H ETELVINA Roverto Merino MD 5,000 Units at 05/12/24 0548 HYDROmorphone in 0.9% sodium chloride (DILAUDID) 20 mg/100 mL (0.2 mg/mL) (premix) intravenous Continuous Roverto Merino MD New Syringe/Cartridge at 05/11/24 1748 insulin lispro (HumaLOG, ADMELOG) 100 unit/mL injection 0-4 Units 0-4 Units subcutaneous Nightly Roverto Merino MD insulin lispro (HumaLOG, ADMELOG) 100 unit/mL injection 0-5 Units 0-5 Units subcutaneous TID with meals Roverto Merino MD Lactated Ringer's (LR) infusion 100 mL/hr intravenous Continuous Roverto Merino MD 100 mL/hr at 05/12/24 0900 100 mL/hr at 05/12/24 0900 naloxone (NARCAN) 0.4 mg/mL injection 0.04-0.4 mg 0.04-0.4 mg intravenous Q10 Min PRN Roverto Merino MD ondansetron (ZOFRAN) injection 4 mg 4 mg intravenous Q6H PRN Roverto Merino MD prochlorperazine (COMPAZINE) injection 5 mg 5 mg intravenous Q6H PRN Roverto Merino MD sertraline (ZOLOFT) tablet 50 mg 50 mg oral Daily Roverto Merino MD simvastatin (ZOCOR) tablet 20 mg 20 mg oral Nightly Roverto Merino MD sodium chloride 0.9% flush 0.5-20 mL 0.5-20 mL intra-catheter Q8H ETELVINA Roverto Merino MD sodium chloride 0.9% flush 0.5-20 mL 0.5-20 mL intra-catheter PRN Roverto Merino MD * [facility]IN Note - Jennifer Levi RN - 05/12/2024 11:30 AM CDT Images from the original note were not included. Patient Information: PT Eval and Treat Last 72 Hours PT Evaluation Row Name 05/12/24 0815 Chart Reviewed Yes -BE Session Type Evaluation -BE Safe Environment Arm band checked;Patient found in supine;Session completed bedside;Gait belt utilized for all out of bed mobility -BE Subjective Agreeable to Therapy -BE Family/Caregiver Present No -BE Physical Therapy-Patient Goal to go home -BE Precautions Fall risk;Abdominal -BE Braces/Orthoses Other abdominal binder -BE Precaution Comments Instructed in abodminal precuations. Demoes understnading with Cues. Will benefit from [id number] of educaiton -BE Type of Home House -BE Home Layout One level;Able to live on main level with bedroom/bathroom;Basement -BE Home Access Stairs to enter with rails -BE Entrance Stairs-Rails Both -BE Entrance Stairs-Number of Steps 10 -BE Bathroom Equipment Other (Comment) none -BE Home Mobility Equipment-Available Wheeled walker;Single point cane;Scooter -BE Home Mobility Equipment-Currently Using None -BE Level of [place] Independent with ADLs;Independent with ambulation;Independent functional transfers;Independent with homemaking with ambulation -BE Lives With Spouse -BE Receives Help From Spouse/Significant other;Family;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, 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, spouse, family FT assist -BE Driving Yes -BE Vocational/Occupation Retired -BE Fall within the last 6 months No -BE Activity Tolerance Comments INGE: Hard -BE Pain Assessment 0-10 -BE Pain Score 7 -BE Pain Type Surgical pain -BE Pain Location Abdomen -BE Pain Interventions RN Notified;Therapy -BE Arousal/Alertness Appropriate responses to stimuli;Alert -BE Orientation Oriented X4 (person, place, time, situation) -BE Following Commands Follows all commands and directions without difficulty -BE Safety Judgment Decreased awareness of need for assistance -BE Compliance/Behavior Easy to engage -BE Balance Tests Yes -BE 1. Sitting to Standing 1 -BE 2. Standing Unsupported 0 -BE 3. Sitting with Back Unsupported but Feet Supported on Floor or on a Stool 4 -BE 4. Standing to Sitting 0 -BE 5. Transfers 1 -BE 6. Standing Unsupported with Eyes Closed 0 -BE 7. Standing Unsupported with Feet Together 0 -BE 8. Reach Forward with Outstretched Arm While Standing 0 -BE 9. Crematory Attendant Object from Floor from a Standing Position 0 -BE 10. Turning to Look Behind Over Left and Right Shoulders While Standing 0 -BE 11. Turn 360 Degrees 0 -BE 12. Place Alternate Foot on Step or Stool While Standing Unsupported 0 -BE 13. Standing Unsupported One Foot in Front 0 -BE 14. Standing on One Leg 0 -BE [place] Balance Score 6 -BE Balance Yes -BE Static Sitting-Balance Support No upper extremity supported;Feet supported -BE Static Sitting-Sitting Surface Bed -BE Static Sitting-Level of Assistance Distant supervision -BE Static Sitting-Comment/# of Minutes safety -BE Dynamic Sitting-Balance Support No upper extremity supported;Feet supported -BE Dynamic Sitting-Balance Lateral lean;Forward lean;Head control activities (Comment);Trunk control activities -BE Dynamic Sitting-Sitting Surface Bed -BE Dynamic Sitting-Level of Assistance Distant supervision -BE Dynamic Sitting-Comments safety -BE Static Standing-Balance Support Bilateral upper extremity supported WW -BE Static Standing-Standing Surface Floor -BE Static Standing-Level of Assistance Minimum assistance -BE Static Standing-Comment/# of Minutes steadyinga ssist, balance,s afety -BE Dynamic Standing-Balance Support Bilateral upper extremity supported WW -BE Dynamic Standing-Balance -- dynamic gait -BE Dynamic Standing-Standing Surface Floor -BE Dynamic Standing-Level of Assistance Minimum assistance -BE Dynamic Standing-Comments steayding assistthelma s afety -BE Bed Mobility From 1 Supine -BE Bed Mobility Type 1 To and from -BE Bed Mobility to 1 Edge of bed -BE Level of Assistance 1 Minimum Assist -BE Bed Mobility Comments 1 assist for log roll, trunk eelvaiton, LEs off EOB -BE Transfer From 1 Sit -BE Transfer Type 1 To and from -BE Transfer to 1 Stand -BE Technique 1 Sit to stand;Stand to sit -BE Transfer Device 1 Wheeled walker -BE Transfer Level of Assistance 1 Minimum Assist -BE Trials/Comments 1 assist for force connie houston s teayding assist, balance intiiatlly upon sharda, performed x 3 reps -BE Distance (ft) 1 15 15 ft x2 -BE Surface 1 Level tile -BE Device 1 Wheeled walker -BE Assistance 1 Minimum Assist -BE Gait: Requires assist with 1 Maintaining balance -BE Gait: Requires verbal cues to 1 Utilize pursed lip breathing;Pace activity;Increase base of support;Increase step length;Improve upright posture;Utilize appropriate gait sequencing;Prevent bumping into environmental barriers (avelar/furniture);Follow precautions/weight bearing status;Use assistive device safely -BE Gait Deviations 1 Base of support - decreased;Ronald - decreased;Antalgic;Heel strike - decreased;Posture - flexed;Stance time - decreased;Step length - decreased;Turns - difficulty -BE Quality of Gait 1 decreased ronald, flexed posture, decreased step length, cues for paicng self, -BE Ambulation Comments 1 noted blurry vision and dizziness iwth amb, did not resolve with sitting. returned to supine 2/2 to this. BRAILLE TRANSCRIBER made aware -BE Stairs No -BE RUE Assessment WFL -BE LUE Assessment WFL -BE RLE Assessment WFL -BE LLE Assessment WFL -BE How much difficulty does the patient have: Turning over in bed 3 -BE How much difficulty does the patient currently have: Sitting down and standing up from a chair witharms? 3 -BE How much difficulty does the patient have: Moving from lying on back to sitting on the side of the bed? 3 -BE How much difficulty does the patient have: Moving to and from a bed to a chair including wheelchair? 3 -BE How much help does the patient currently need: Walk in hospital room? 3 -BE How much help from another person does the patient currently need: Climbing 3-5 steps with a railing? 2 -BE Total 6 Click Score (range 6-24) 17 -BE Safe Environment End of Therapy Session Patient left supine in bed;RN notified;Call light within reach;Overbed table within reach;Bed in lowest position with wheels locked;Bed rails up per protocol -BE Prognosis Good -BE Problem List Gait deviations;Decreased strength;Decreased range of motion;Decreased endurance;Impaired balance;Decreased mobility;Impaired judgement;Decreased safety awareness;Decreased skin integrity;Pain;Edema -BE Problem List Comments PT Diagnosis: Pt presents with REPAIR INCISIONAL HERNIA RECONSTRUCTION ABDOMINAL WALL PMH: HTN, T2DM, asthma, BETTY, pancreatic cancer w/mets to liver (s/p whipple, radiation and chemo), anxiety, derpession, HLD, OA, hyperthyroidism results in above listed activity deficits and impairments which prevent full participation in home and community mobility. -BE Barriers to Discharge Current Mobility Status;Decreased caregiver support;Decreased safety awareness -BE Plan Plan of care initiated;If this is the last note, consider this the discharge summary -BE PT Recommendation/Plan Inpatient Rehab Facility -BE Patient at high risk for Falls;Readmission;Injury due to decreased ability to care for self;Injury due to reduced functional status;Injury due to impaired cognition;Injury due to balance deficits;Injury at home as patient has not returned to prior level of function;Developing impaired skin integrity;Cognitive decline due to decreased social participation;Mismanagement of medications;Prolonged dependence for self care tasks;Developing secondary complications: poor health management -BE Recommend Inpatient Rehab/Acute Rehab due to Ability to actively participate in intensive therapy 3hours/day, 5 days/week or 900 minutes per week;Highly motivated to participate in therapy;Not at baseline due to impaired ability to complete ADLs;Impaired ability to complete functional mobility;Likely to return to the community at discharge with support system in place;Requires greater than 25% physical assistance with most mobility tasks;Requires greater than 25% physical assistance with most ADL tasks;Requires multiple therapy disciplines to address functional deficits;Patient and caregiverrequire specialized skilled training due to new level of function/diagnosis;Requires skilled therapy interventions to address neurological deficits -BE PT Frequency during current admission 3-5x/wk -BE Treatment/Interventions during current admission Balance Training;Bed mobility;Endurance training;Functional activity;Functional transfer training;Gait training;Neuromuscular re-education;Positioning;Parent/caregiver training and education;Range of motion;Stair training;Strengthening;Therapeutic activity;Therapeutic exercise;Transfer training -BE PT - OK to Discharge No -BE PT Evaluation Complete Yes -BE Start Time 0815 -BE Stop Time 0855 -BE Time Calculation (min) 40 min -BE User [place] (r) = Recorded By, (t) = Taken By, (c) = Cosigned By Initials Name Effective Dates BE Kriss Angelo, PT 08/22/20 - PT TREATMENT (Last 168 Hours) PT Treatment No documentation. PT Notes 05/12/2024 10:17 AM Progress Notes signed by Kriss Angelo, PT * Plan of Care - Jennifer Levi RN - 05/12/2024 11:25 AM CDT Plastic Installer noted patient has been recommended for Inpatient Rehab by PT/OT. Plastic Installer proactively initiated a referral to [facility] preferred Inpatient Rehab Facility - [facility]. Plastic Installer met with the patient/family at bedside to discuss recommendations by therapy and to work on a potential discharge disposition plan. Plastic Installer provided education to patient/family on the rehabilitation process. Patient reported she was interested in placement for rehabilitation. tooling manager provided a list of additional potential Inpatient Rehab Facility choices to patient and family. Patient and family selected the following choices (preference order): [facility] tooling manager sent out additional referrals via [facility]. CM awaiting acceptance from an Inpatient RehabFacility and will continue to work on discharge planning with patient and family. Dc transportation: PENDING Patient is also agreeable to Proactive referral to [facility] Address [address] [place] [id number] Floor cm will continue to follow * Initial Assessments - Jennifer Levi RN - 05/12/2024 10:04 AM CDT CM Initial Assessment Interview Note Information Obtained From: Patient (05/12/241002) Admission Source: from home Impression: 68 year old s/p open AWR w/ B/L TAR on 05/11 Plan Includes: return home with 24 hour assist per spouse, no need for hh or dme - PENDING Therapy evals Primary Source of Transportation: Does the patient need discharge transport arranged?: No (05/12/241002) Health Insurance Coverage: [facility] Prescription Coverage: yes Pharmacy: [id number] [place], [place] - [address] [facility] [address] [facility] [id number] Primary Care Provider: Kathya Orona DO Prior to Admission: Functional Status: Independent with ADLs Primary Caregiver: Self Support System: Spouse/Significant Other Home Care Services: No Durable Medical Equipment: None Living Arrangements: Spouse/significant other Type of Residence: Private residence Medication management: Independent (05/12/241002) Potential discharge needs include: Home Health: None (05/12/241002) OP Services:na Dialysis: na Behavioral Health Services: Behavioral Health Services: No (05/12/241002) Anticipated Level of Care: Anticipated discharge level of care: Private residence Pt/Family agrees with Anticipated Level of Care: Yes (05/12/241002) Patient expects to be Discharged to: Private residence, (05/12/241002) Additional Information: 68 year old independent adl, lives with spouse Patient's Identified Problem/Goal Problem: Ensure acute medical needs are met and that patient has a safe discharge plan. Goal: Secure a discharge plan that patient/family are agreeable with and ensure patient has continuum of care. Case management will follow for discharge planning and send referrals as needed. Goals include: To assure continuity of care, To maximize coping skills, To assure patient is in a safe environment and To assure access to community resources. Plan includes: 1. Collaboration with Patient, Provider, Direct Care Nurse, Assurance Associate, and other members of theHealth Care Team to assure needed interventions completed. 2. Return patient to optimal level of self-care post discharge. 3. Plastic Installer will follow for Discharge Planning - interventions as needed 4. Anticipated level of care at discharge 5. Planned Discharge Disposition Jennifer Levi RN * Plan of Care - Juhi Mandujano RN - 05/12/2024 9:47 AM CDT Goals: Clinical Goals for the Shift: Pain control, monitor I/Os, JAIME drain care, wiggins care, ambulation, CHG bath Manager Rn Patient Centered Goal for Treatment: Safe discharge home with adequate discharge teaching Problem: Medication Goal: Agree to be compliant with medication regime, as prescribed and report medication side effects Outcome: Progressing Problem: Fall Risk Goal: Ability to state ways to decrease the risk of falls will improve Outcome: Progressing Goal: Will remain free from falls Outcome: Progressing Goal: Will remain free from injury from falls Outcome: Progressing Summary: Patient is progressing towards discharge required goals and interventions. Pain is tolerable with scheduled medication regimen, as well as PRN pain medications. Tolerating clear liquids dietappropriately with no complaints of nausea/vomiting. Plan for today is to walk 1-[address] Hourly rounds will be completed throughout the day. * Significant Event - Shola Phelan MD - 05/11/2024 9:23 PM CDT General Surgery Postoperative Progress Note: Attending Physician: Sabino Luke MD Diagnosis: Incarcerated incisional hernia Surgical Procedure: Procedure(s): REPAIR INCISIONAL HERNIA RECONSTRUCTION ABDOMINAL WALL Allergies Allergen Reactions Iv Contrast Dye [Iodinated Contrast Media] Itching Amoxicillin Itching Kiwi Itching Macrolide Antibiotics Itching Naproxen Sodium Itching Nitrofurantoin Itching Itching Penicillins Itching Sulfadiazine Dizziness Allergies reviewed. Subjective: No nausea/vomiting/chest pain/shortness of breath. Pain: -Location: abdominal -Pain scale: 3 Objective: BP 128/79 (BP Location: Right arm, Patient Position: Lying) Pulse 84 Temp 37.1 ??C (98.8 ??F) (Oral) Resp 20 SpO2 100% Physical Exam: General: Alert & Oriented x 3 and No acute distress CV: Normal S1, S2, no murmurs/rubs/gallops Respiratory:Nonlabored, CTAB Abdomen: Soft, non-distended, appropriately tender to palpation Incisions: Midline abdomen Dressing:Clean, dry and intact. Drains: JAIME x3 SS output : Indwelling wiggins draining clear yellow Extremities: Warm, no edema Peripheral Pulses: ++, SCDs in place and functioning Neuro: Grossly intact Assessment/Plan: Krissy Oneal is a 68 y.o. female with Incarcerated incisional hernia [K43.0], status post Procedure(s): REPAIR INCISIONAL HERNIA RECONSTRUCTION ABDOMINAL WALL Diet: NPO Diet Sips of clear liquids, Ice chips, Sips with meds Activity: Ambulate QID w/ assist the first time, Incentive spirometer x 10/hour while awake IVF: Lactated Ringers IVF at 75 mL/hr until tolerating PO AM labs: CBC, BMP Monitor: VS, I&O q4 hours, Pain management Consults: PT and OT Shola Phelan MD 05/11/24 9:31 PM * Op Note - Sabino Luke MD - 05/11/2024 1:05 PM CDT Operative Report SURGEON: Sabino Luke MD SURGICAL TEAM: Surgeons and Role: * Sabino Luke MD - Primary * Juliann Le MD - Resident - Assisting * Roverto Merino MD - Fellow DATE OF SURGERY : 05/11/2024 PREOPERATIVE DIAGNOSIS: Incarcerated incisional hernia POSTOPERATIVE DIAGNOSIS: Post-op Diagnosis * Incarcerated incisional hernia [K43.0] PROCEDURE: 1. Myofascial advancement flap of the posterior rectus sheath and transversus abdominis muscle on the right 2. Myofascial advancement flap of the posterior rectus sheath and transversus abdominis muscle on the left 3. Repair of incarcerated incisional hernia (20 x 15 cm) 4. Implantation of mesh (30x30 Bard Soft mesh) 5. Transversus abdominis plane block Hernia Specifics: - Initial - Total Size of Defect / Defects (cm): 20 x 15 - Incarcerated / Strangulated - Type of hernia: Incisional - Approach: Open - Previous Mesh: None INDICATION FOR PROCEDURE: Krissy Oneal is a 68 y.o. female who was referred for evaluation of an enlarging increasingly symptomatic incisional hernia. She has a history of an open Whipple performed for pancreatic cancer and developed a large midline incisional hernia that has been increasing in size. She reports significantdiscomfort and impact on her daily living. Given the patients surgical history, the size and location of the defect it was felt she would be best served with an open repair. Risks/benefits/alternatives to surgery were discussed with the patient and their family. The risks of the surgery discussed included but weren't limited to bleeding, infection, potential injury to surrounding structures and bowel, planned use of mesh, hernia recurrence and anesthesia associated complications. She was given the opportunity to ask any questions and they were all answered. She is in agreement with the plan. OPERATIVE FINDINGS: Patient had a very large 20 x 15 cm midline hernia defect including a significant amount of small bowel that was incarcerated within the very large broad defect. Once the adhesiolysis was completed we then turned our attention to hernia repair. Given the large size of the hernia defect and then significant tension of the abdominal wall in order to allow for adequate mesh overlap as well as medialization abdominal musculature we elected to proceed with a bilateral myofascial advancement flaps ofthe post rectus sheath and transversus abdominis muscle. We are able to get primary posterior sheath coverage, reinforced the entire midline with a 30 x 30 cm piece of Bard soft mesh and then obtain primary fascial closure. We excised some excess skin and hernia sac of the completion of the procedure. DESCRIPTION OF PROCEDURE: After obtaining written informed consent, the patient was brought to the operating room and placed on the table in the supine position. She received cefazolin for perioperative antibiotics. She received 5,000 units subcutaneous heparin and SCD's for perioperative DVT prophylaxis. After the induction of general endotracheal anesthesia a wiggins catheter was placed, and her abdomen was prepped and draped in the usual sterile fashion. We began by reopening her midline incision and dissecting down through the subcutaneous tissue until we encounter the remainder of the linea alba. This was then open sharply to enter the abdominal cavity. We encountered a significant amount of dense adhesions of omentum and small bowel to the anterior abdominal wall. There was also incarcerated within the hernia defect itself. These were all taken down with sharp dissection and minimal electrocautery. During adhesiolysis we encountered 2 small bowel serosal injuries that were over sewn with interrupted 3-0 vicryl lembert sutures. These were inherent to the density of the adhesions. Total adhesiolysis time was greater than 1 hour. After we were satisfied with all of the bowel work we placed a countable towel into the abdomen to protect theviscera and turned our attention to repairing the hernia defect. We measured the hernia defect to be 20 x 15 cm. We then attempted to bring the abdominal wall muscles back together and it was under significant tension. Given the large size of the hernia defect, its location and her previous surgical history in addition the increased abdominal tension we elected to proceed with bilateral myofascial advancement flaps of the posterior rectus sheath and transversus abdominis muscle in order to allow for adequate mesh overlap and midline medialization of the rectus muscles. We began on the patient's left side. After placing ananth clamps on the medial edge of the rectus muscle, we began by incising the posterior rectus sheath just lateral to the linea-alba. This plane was continued out lateral towards the linea-semiluminaris and the neurovascular perforators to the rectus muscle which were identified and preserved. We then incised the posterior sheath and divided the transversus abdominis muscle to enter into an extraperitoneal plane. This was necessary to allow for adequate midline medialization of the rectus muscle and adequate mesh overlap. This was continuedout laterally towards the retroperitoneum, under the costal margin and down towards the pelvis. This was a challenging dissection given the patients surgical history. Ultimately we were able to complete the dissection out laterally. However, it was still felt there was increased tension on the midline so we turned our attention to performing a similar release on the opposite side. After placing ananth clamps on the medial edge of the rectus muscle, we began by incising the posterior rectus sheath just lateral to the linea-alba. This plane was continued out lateral towards the linea-semiluminaris and the neurovascular perforators to the rectus muscle which were identified andpreserved. We then incised the posterior sheath and divided the transversus abdominis muscle to enter into an extraperitoneal plane. Again, this was necessary to allow for adequate midline medialization of the rectus muscle and adequate mesh overlap. This was continued out laterally towards the retroperitoneum, under the costal margin and down towards the pelvis. This was a challenging dissection. Ultimately we were able to complete the dissection out laterally. To complete the pelvic dissection, we were able pass a finger through the space of retzius, along the pubic symphysis to connect the pre-peritoneal dissection of the left and right side. The bladder complex was then freed from the overlying abdominal wall preserving the linea alba intact. This exposed down to the pubic symphysis to allow for adequate inferior mesh overlap. For the cranial dissection the falciform ligament had been previously removed, but we were able to utilize the pre-peritoneal fat pad to establish a plane under the xiphoid bone. This was then connected with the left and right pre- peritoneal dissection that had been performed by dividing the posterior rectus sheath and transversus abdominis muscle. This was then continued cranially by freeing theperitoneum off the diaphragm to allow for adequate cranial overlap. Once we were satisfied with the area of dissection, we then turned our attention to closing the posterior rectus sheath in the midline. There were a few holes in the peritoneum and posterior sheath. The holes were closed with 2-0 & 3-0 vicryl sutures. We then performed a sponge, instrument, needle count that was correct. The posterior rectus sheath was then closed in the midline primarily after removing the countable towel. We then performed a transversus abdominis plane block by injection 60 cc of 0.25% Marcaine divided between the left and right transversus abdominis muscle under direct visualization. We then placed a [id number] piece of Bard soft mesh placed in a bernadine fashion. This nicely covered from the below the pubic symphysis to the xiphoid bone. There lateral edges of the mesh were trimmed to allow the mesh to lay flat. We then placed two 19 gabonese abena drains to drain the space above the mesh. The anterior fascia was then closed with interrupted #1 PDS sutures around a reinforced tension line of 1. PDS suture. We then excised her excess skin and hernia sac. We placed a 15 Zambian Abena drain in the subcutaneous space. We closed the subcutaneous tissue with interrupted 3-0 vicryl suture. Skin was closed with herminia. A dry sterile dressing as then placed over the wound. Band- Aids were placed at the drain sites. ANESTHESIA: General Estimated Blood Loss: 100 mL Urine output : 110 mls Intraoperative Fluids: 2000 mls LR Blood/Blood Products Transfused: None Counts: Sponge, instrument and needle count was correct several times throughout the procedure. Specimens: * No specimens in log * Implants: Implant Name Type Inv. Item Serial No. Cut In Station Operator Lot No. [id number] No. Used Action [employer]/C R BARD [id number] Bard [id number] Monofilament Soft Lightweight Low Profile Square - [id number] Mesh [employer] BARD [id number] Bard [id number] Monofilament Soft Lightweight Low ProfileSquare [id number] [employer]/C R Bard [id number] N/A 1 Implanted Complications: None Condition on Discharge from the operating room was stable TEACHING ATTESTATION : I was present and directly participated in the entire procedure (including opening and closing). Date: 05/11/2024 Time: 4:58 PM Sabino Luke MD Minimally Invasive GI Surgery & Abdominal Wall Reconstruction chart calculator [facility] [phone] * Hospital Course - Hope Brito NP - 05/11/2024 11:23 AM CDT Krissy Oneal was admitted on 05/11/2024 and taken to the operating room for a Repair of incarceratedincisional hernia & abdominal wall reconstruction by Sabino Luke MD. For full operative details, please dictated summary. The patient tolerated the procedure well and post operatively was admitted to the Minimally Invasive Surgery Service for further management. Diet was advanced as tolerated to diabetic diet. Pain was controlled on IV and oral medication. The patient had SOB with ambulation, the patient with an allergy to IV contrast Dye requiring premedication with IV steriods and Benadryl. CT Chest PE protocol was negative for PE. The patient was evaluated by PT/OT who recommended SNF. The patient was then discharged to SNF on postoperative in stable condition, tolerating a diabetic diet, voiding spontaneously, ambulating well and with pain controlled on oral pain medication. JAIME drains removed on day of discharge. Port acath de- accessed on day of discharge. documented in this encounter Plan of Treatment Pending Results Name Type Priority Associated Diagnoses Date /Time Lipid panel Lab Routine 05/11/2024 9: 44 PM CDT Scheduled Orders Name Type Priority Associated Diagnoses Orde r Schedule Lipid panel Lab Routine Once for 1 Oc currences starting 05/11/2024 until 05/11/2024 documented as of this encounter Goals Goal [...] on stairs Contact your local community or [facility] for information on exercise, fall prevention programs, or options for improving home safety. documented as of this encounter Procedures Procedure Name Priority Date/Time Associated Diagnosis Comments POCT GLUCOSE DEVICE Routine 05/19/2024 8 :12 AM CDT POCT GLUCOSE DEVICE Routine 05/18/2024 8 :00 PM CDT POCT GLUCOSE DEVICE Routine 05/18/2024 5 :[address] CHEST PE W CONTRAST Timed 05/18/2024 4:15 PM CDT POCT GLUCOSE DEVICE Routine 05/18/2024 1 2:03 PM CDT POCT GLUCOSE DEVICE Routine 05/18/2024 8 :01 AM CDT PEP THERAPY Routine 05/17/2024 10:00 PM CDT POCT GLUCOSE DEVICE Routine 05/17/2024 8 :16 PM CDT PEP THERAPY Routine 05/17/2024 6:00 PM CDT POCT GLUCOSE DEVICE Routine 05/17/2024 5 :30 PM CDT PEP THERAPY Routine 05/17/2024 1:00 PM CDT POCT GLUCOSE DEVICE Routine 05/17/2024 1 1:28 AM CDT ECG 12-LEAD Routine 05/17/2024 9:50 AM CDT XR CHEST 1 VIEW IP Routine 05/17/2024 9:14 AM CDT PEP THERAPY Routine 05/17/2024 8:00 AM CDT POCT GLUCOSE DEVICE Routine 05/17/2024 7 :48 AM CDT COVID-19 CORONAVIRUS RNA Routine 05/16/2024 9:35 PM CDT EGFR Timed 05/16/2024 9:34 PM CDT CBC WITHOUT DIFFERENTIAL Timed 05/16/2024 9:34 PM CDT BASIC METABOLIC PANEL Timed 05/16/2024 9:34 PM CDT POCT GLUCOSE DEVICE Routine 05/16/2024 9 :04 PM CDT PEP THERAPY Routine 05/16/2024 6:00 PM CDT POCT GLUCOSE DEVICE Routine 05/16/2024 4 :58 PM CDT PEP THERAPY Routine 05/16/2024 1:00 PM CDT POCT GLUCOSE DEVICE Routine 05/16/2024 1 0:55 AM CDT POCT GLUCOSE DEVICE Routine 05/16/2024 8 :32 AM CDT PEP THERAPY Routine 05/16/2024 8:00 AM CDT EGFR Routine 05/15/2024 11:40 PM CDT CBC WITHOUT DIFFERENTIAL Routine 05/15/2024 11:40 PM CDT BASIC METABOLIC PANEL Routine 05/15/2024 11:40 PM CDT POCT GLUCOSE DEVICE Routine 05/15/2024 8 :35 PM CDT POCT GLUCOSE DEVICE Routine 05/15/2024 4 :43 PM CDT POCT GLUCOSE DEVICE Routine 05/15/2024 1 1:30 AM CDT POCT GLUCOSE DEVICE Routine 05/15/2024 8 :19 AM CDT EGFR Routine 05/14/2024 11:11 PM CDT CBC WITHOUT DIFFERENTIAL Routine 05/14/2024 11:11 PM CDT MAGNESIUM Routine 05/14/2024 11:11 PM CDT BASIC METABOLIC PANEL Routine 05/14/2024 11:11 PM CDT POCT GLUCOSE DEVICE Routine 05/14/2024 9 :05 PM CDT POCT GLUCOSE DEVICE Routine 05/14/2024 5 :00 PM CDT PEP THERAPY Routine 05/14/2024 12:37 PM CDT POCT GLUCOSE DEVICE Routine 05/14/2024 1 1:40 AM CDT POCT GLUCOSE DEVICE Routine 05/14/2024 7 :46 AM CDT EGFR Routine 05/14/2024 12:11 AM CDT CBC WITHOUT DIFFERENTIAL Routine 05/14/2024 12:11 AM CDT MAGNESIUM Routine 05/14/2024 12:11 AM CDT BASIC METABOLIC PANEL Routine 05/14/2024 12:11 AM CDT POCT GLUCOSE DEVICE Routine 05/13/2024 7 :52 PM CDT POCT GLUCOSE DEVICE Routine 05/13/2024 5 :26 PM CDT POCT GLUCOSE DEVICE Routine 05/13/2024 1 2:21 PM CDT XR CHEST 1 VIEW ED Urgent/IP Urgent 05/13/2024 9:40 AM CDT POCT GLUCOSE DEVICE Routine 05/13/2024 8 :20 AM CDT EGFR Routine 05/12/2024 10:14 PM CDT CBC WITHOUT DIFFERENTIAL Routine 05/12/2024 10:14 PM CDT MAGNESIUM Routine 05/12/2024 10:14 PM CDT BASIC METABOLIC PANEL Routine 05/12/2024 10:14 PM CDT POCT GLUCOSE DEVICE Routine 05/12/2024 8 :26 PM CDT POCT GLUCOSE DEVICE Routine 05/12/2024 5 :23 PM CDT POCT GLUCOSE DEVICE Routine 05/12/2024 1 2:20 PM CDT POCT GLUCOSE DEVICE Routine 05/12/2024 8 :18 AM CDT POCT GLUCOSE DEVICE Routine 05/11/2024 9 :55 PM CDT EGFR Routine 05/11/2024 9:44 PM CDT CBC WITHOUT DIFFERENTIAL Routine 05/11/2024 9:44 PM CDT MAGNESIUM Routine 05/11/2024 9:44 PM CDT LIPID PANEL Routine 05/11/2024 9:44 PM CDT BASIC METABOLIC PANEL Routine 05/11/2024 9:44 PM CDT POCT GLUCOSE DEVICE Routine 05/11/2024 6 :02 PM CDT POCT GLUCOSE DEVICE Routine 05/11/2024 3 :59 PM CDT POCT GLUCOSE DEVICE Routine 05/11/2024 1 :30 PM CDT RECONSTRUCTION ABDOMINAL WALL 05/11/2024 12:28 PM CDT Incarcerated incisional hernia Special Needs Dr. Luke needs 4 hours, mesh REPAIR INCISIONAL HERNIA 05/11/2024 12:28 PM CDT Incarcerated incisional hernia Special Needs Dr. Luke needs 4 hours, mesh POCT GLUCOSE DEVICE Routine 05/11/2024 1 1:29 AM CDT documented in this encounter Results * POCT glucose (05/19/2024 8:12 AM CDT) Glucose, POC 137 70 - 199 mg/dL Blood 05/19/2024 8:12 AM CDT 05/19/2024 8:12 AM CDT Sabino Luke MD LAB POCT ORDERABLES - DE VICE Final Result Performing Organization Address City/[facility]/ZIP Co de Phone Number [facility] [place] [address] * POCT glucose (05/18/2024 8:00 PM CDT) Glucose, POC 192 70 - 199 mg/dL Blood 05/18/2024 8:00 PM CDT 05/18/2024 8:00 PM CDT Sabino Luke MD LAB POCT ORDERABLES - DE VICE Final Result Performing Organization Address City/[facility]/ZIP Co de Phone Number [facility] [place] [address] * POCT glucose (05/18/2024 5:06 PM CDT) Glucose, POC 177 70 - 199 mg/dL Blood 05/18/2024 5:06 PM CDT 05/18/2024 5:06 PM CDT us Sabino Luke MD LAB POCT ORDERABLES - DE VICE Final Result JASMIN [facility] [place] [address] * CT Chest PE (CTA) W Contrast [...] signed by: William Wyatt M.D. Hope Brito [employer]IL[employer] TR[employer]CR[employer] IMG CT PROCEDURES Final Result * POCT glucose (05/18/2024 12:03 PM CDT) Glucose, POC 149 70 - 199 mg/dL Blood 05/18/2024 12:0 3 PM CDT 05/18/2024 12:03 PM CDT Sabino Luke MD LAB POCT ORDERABLES - DE VICE Final Result Performing Organization Address City/[facility]/ZIP Co de Phone Number [facility] [place] [address] * POCT glucose (05/18/2024 8:01 AM CDT) Glucose, POC 134 70 - 199 mg/dL Blood 05/18/2024 8:01 AM CDT 05/18/2024 8:01 AM CDT us Sabino Luke MD LAB POCT ORDERABLES - DE VICE Final Result Performing Organization Address [facility] Co de Phone Number [facility] [place] [address] * POCT glucose (05/17/2024 8:16 PM CDT) Glucose, POC 131 70 - 199 mg/dL Blood 05/17/2024 8:16 PM CDT 05/17/2024 8:16 PM CDT Sabino Luke MD LAB POCT ORDERABLES - DE VICE Final Result Performing Organization Address [facility] Co de Phone Number [facility] [place] [address] * POCT glucose (05/17/2024 5:30 PM CDT) Glucose, POC 174 70 - 199 mg/dL Blood 05/17/2024 5:30 PM CDT 05/17/2024 5:30 PM CDT Sabino Luke MD LAB POCT ORDERABLES - DE VICE Final Result Performing Organization Address City/[facility]/ZIP Co de Phone Number [facility] [place] [address] * POCT glucose (05/17/2024 11:28 AM CDT) Glucose, POC 149 70 - 199 mg/dL Blood 05/17/2024 11:2 8 AM CDT 05/17/2024 11:28 AM CDT Sabino Luke MD LAB POCT ORDERABLES - DE VICE Final Result JASMIN [facility] [place] [address] * ECG 12 lead (05/17/2024 9:50 AM CDT) Ventricular Rate EKG/Min 113 BPM [facility] Atrial Rate 113 BPM [facility] W[place]-Interval (MSEC) 138 ms [facility] QRS-Interval (MSEC) 82 ms [facility] QT-Interval (MSEC) 334 ms [facility] QTc 458 ms [facility] P [place] 33 degrees [facility] R [place] -3 degrees [facility] T [place] 80 degrees [facility] Diagnosis Sinus tachycardia Minimal voltage criteria for LVH, may be normal variant Nonspecific T wave abnormality Abnormal ECG No previous ECGs available Confirmed by ALIREZA COX M.D ([id number]) on 05/19/2024 9:25:15 AM [facility] 05/17/2024 9:50 AM CDT 05/19/2024 9:25 AM CDT Sabino Luke MD ECG ORDERABLES Final Re sult [facility] [employer] [facility] * XR Chest 1 View (05/17/2024 [...] * POCT glucose (05/17/2024 7:48 AM CDT) [facility] Glucose, POC 140 70 - 199 mg/dL Blood 05/17/2024 7:48 AM CDT 05/17/2024 7:48 AM CDT Sabino Luke MD LAB POCT ORDERABLES - DE VICE Final Result [facility] [place] [address] * COVID-19 Coronavirus RNA Nasopharyngeal (05/16/2024 9:35 PM CDT) [facility] COVID-19 RNA Negative Negative [facility] Nasopharyngeal 05/16/2024 9: 35 PM CDT 05/16/2024 10:14 PM CDT Narrative [facility] - 05/16/2024 10:48 PM CDT Is the patient experiencing any symptoms consistent with COVID (eg. Fever, cough, shortness of breath)?->No What is the reason for testing?->Screening for post-acute care placement ??Interpretive data Testing performed by [facility] ([phone]). This test is performed using the [employer] Xpert Xpress CoV-2 plus assay. This is a real-time RT-PCR test intended for the qualitative detection of nucleic acid from the SARS-CoV-2. This assay has been cleared by the [place] Food and Drug administration. The performance characteristics have been verified by the [facility]. ??Results must be considered in the clinical context, and a negative result does not rule out infection. Interpretive data last revised 2024. ??Interpretive data Testing performed by [facility] ([phone]). This test is performed using the [employer] Xpert Xpress CoV-2 plus assay. This is a real-time RT-PCR test intended for the qualitative detection of nucleic acid from the SARS-CoV-2. This assay has been cleared by the [place] Food and Drug administration. The performance characteristics have been verified by the [facility]. ??Results must be considered in the clinical context, and a negative result does not rule out infection. Interpretive data last revised 2024. Hope Brito NP LAB MICROBIOLOGY - [facility] AL ORDERABLES Final Result JASMIN [facility] [place] [address] [facility] * eGFR (05/16/2024 9:34 PM CDT) [facility] eGFR >90 >=60 mL/min/1. 73 m2 Comment: Interpretive Data Reference Interval Normal ?>/= 90 mL/min/1.73m2 Mildly decreased* ? 60 - 89 mL/min/1.73m2 Mildly to moderately decreased ?45 - 59 mL/min/1.73m2 Moderately to severely decreased ??30 - 44 mL/min/1.73m2 Severely decreased ?15 - 29 mL/min/1.73m2 Kidney Failure ?< 15 ??mL/min/1.73m2 *Relative to young adult level Estimated glomerular filtration rate is determined by the 2020 CKD-EPI equation recommended by the National Kidney Foundation (A Unifying Approach to GFR Estimation: Recommendations of the NKF-ASK Task Force on Reassessing the Inclusion of Race in Diagnosing Kidney Disease, JASN 2020). The CKD-EPI equation should not be used for patients with unstable renal function and has not been validated in children and those over 70. Current interpretive data was last reviewed 2021. Blood 05/16/2024 9:34 PM CDT 05/16/2024 10:14 PM CDT us Sabino Luke MD LAB BLOOD ORDERABLES Fin al Result [facility] [place] [address] * (ABNORMAL) CBC without differential (05/16/2024 9:34 PM CDT) WBC 7.9 3.8 - 9.9 K/cumm Hgb 11.4(L) 11.9 - 15.5 g/dL [facility] Hct 33.8(L) 35.6 - 45.5 % [facility] Plt 320 150 - 400 K/cumm [facility] MPV 9.4 9.1 - 12.3 fL [facility] RBC 4.08 3.90 - 5.20 M/cumm [facility] MCV 82.8 81.3 - 96.4 fL [facility] MCH 27.9 27.1 - 33.3 pg [facility] MCHC 33.7 32.3 - 35.7 g/dL [facility] RDW CV 14.4 11.1 - 14.9 % [facility] RDW SD 43.5 35.7 - 48.1 fL [facility] NRBC abs 0.00 0.00 - 0.01 K/cumm [facility] Blood 05/16/2024 9:34 PM CDT 05/16/2024 10:15 PM CDT Sabino Luke MD LAB BLOOD ORDERABLES Fin al Result [facility] [place] [address] * Basic metabolic panel (05/16/2024 9:34 PM CDT) Sodium 136 135 - 145 mmol/L Potassium, pl 3.5 3.3 - 4.9 mmol/L [facility] Chloride 97 97 - 110 mmol/L [facility] CO2 29 22 - 32 mmol/L [facility] Anion gap 10 2 - 15 mmol/L [facility] BUN 12 6 - 25 mg/dL [facility] Creatinine 0.64 0.60 - 1.10 mg/dL [facility] Glucose 121 70 - 199 mg/dL [facility] Comment: Interpretive Data Fasting glucose >/= 126 mg/dl is diagnostic for diabetes. ?? Fasting is defined as no caloric intake for at least 8 hours. Fasting glucose between 100 mg/dl to 125 mg/dl is diagnostic of prediabetes. In a patient with classic symptoms of hyperglycemia or hyperglycemic crisis, a random glucose >/= 200 mg/dl is diagnostic for diabetes. In the absence of unequivocal hyperglycemia, results should be confirmed by repeat testing. The classification and Diagnosis of Diabetes Diabetes Care 2021; 46: S19-S40. Current interpretive data was last revised 2022. Calcium 9.5 8.5 - 10.3 mg/dL [facility] Blood 05/16/2024 9:34 PM CDT 05/16/2024 10:14 PM CDT Sabino Luke MD LAB BLOOD ORDERABLES Fin al Result Performing Organization Address City/[facility] Co de Phone Number [facility] [place] [address] * POCT glucose (05/16/2024 9:04 PM CDT) Glucose, POC 133 70 - 199 mg/dL Blood 05/16/2024 9:04 PM CDT 05/16/2024 9:04 PM CDT Sabino Luke MD LAB POCT ORDERABLES - DE VICE Final Result Performing Organization Address [facility] Co mo Phone Number [facility] [place] [address] * POCT glucose (05/16/2024 4:58 PM CDT) Glucose, POC 177 70 - 199 mg/dL Blood 05/16/2024 4:58 PM CDT 05/16/2024 4:58 PM CDT Sabino Luke MD LAB POCT ORDERABLES - DE VICE Final Result Performing Organization Address [facility] Co de Phone Number [facility] [place] [address] * POCT glucose (05/16/2024 10:55 AM CDT) Glucose, POC 139 70 - 199 mg/dL Blood 05/16/2024 10:5 5 AM CDT 05/16/2024 10:55 AM CDT Sabino Luke MD LAB POCT ORDERABLES - DE VICE Final Result Performing Organization Address [facility] Co de Phone Number [facility] [place] [address] * POCT glucose (05/16/2024 8:32 AM CDT) Glucose, POC 125 70 - 199 mg/dL Blood 05/16/2024 8:32 AM CDT 05/16/2024 8:32 AM CDT Sabino Luke MD LAB POCT ORDERABLES - DE VICE Final Result JASMIN [facility] [place] [address] * eGFR (05/15/2024 11:40 PM CDT) eGFR >90 >=60 mL/min/1. 73 m2 Comment: Interpretive Data Reference Interval Normal ?>/= 90 mL/min/1.73m2 Mildly decreased* ? 60 - 89 mL/min/1.73m2 Mildly to moderately decreased ?45 - 59 mL/min/1.73m2 Moderately to severely decreased ??30 - 44 mL/min/1.73m2 Severely decreased ?15 - 29 mL/min/1.73m2 Kidney Failure ?< 15 ??mL/min/1.73m2 *Relative to young adult level Estimated glomerular filtration rate is determined by the 2020 CKD-EPI equation recommended by the National Kidney Foundation (A Unifying Approach to GFR Estimation: Recommendations of the NKF-ASK Task Force on Reassessing the Inclusion of Race in Diagnosing Kidney Disease, JASN 2020). The CKD-EPI equation should not be used for patients with unstable renal function and has not been validated in children and those over 70. Current interpretive data was last reviewed 2021. Blood 05/15/2024 11:4 0 PM CDT 05/16/2024 12:13 AM CDT Hope Brito NP LAB BLOOD ORDERABLES Fin al Result Performing Organization Address [facility] Co de Phone Number [facility] [place] [address] * (ABNORMAL) CBC without differential (05/15/2024 11:40 PM CDT) WBC 7.2 3.8 - 9.9 K/cumm Hgb 11.2(L) 11.9 - 15.5 g/dL [facility] Hct 32.9(L) 35.6 - 45.5 % [facility] Plt 286 150 - 400 K/cumm [facility] MPV 9.3 9.1 - 12.3 fL [facility] RBC 3.96 3.90 - 5.20 M/cumm [facility] MCV 83.1 81.3 - 96.4 fL [facility] MCH 28.3 27.1 - 33.3 pg [facility] MCHC 34.0 32.3 - 35.7 g/dL [facility] RDW CV 14.2 11.1 - 14.9 % [facility] RDW SD 42.7 35.7 - 48.1 fL [facility] NRBC abs 0.00 0.00 - 0.01 K/cumm [facility] Blood 05/15/2024 11:4 0 PM CDT 05/16/2024 12:13 AM CDT Sabino Luke MD LAB BLOOD ORDERABLES Fin al Result Performing Organization Address [facility] Co de Phone Number [facility] [place] [address] * (ABNORMAL) Basic metabolic panel (05/15/2024 11:40 PM CDT) Sodium 132(L) 135 - 145 mmol/L Potassium, pl 3.6 3.3 - 4.9 mmol/L [facility] Chloride 95(L) 97 - 110 mmol/L [facility] CO2 29 22 - 32 mmol/L [facility] Anion gap 8 2 - 15 mmol/L [facility] BUN 8 6 - 25 mg/dL [facility] Creatinine 0.65 0.60 - 1.10 mg/dL [facility] Glucose 120 70 - 199 mg/dL [facility] Comment: Interpretive Data Fasting glucose >/= 126 mg/dl is diagnostic for diabetes. ?? Fasting is defined as no caloric intake for at least 8 hours. Fasting glucose between 100 mg/dl to 125 mg/dl is diagnostic of prediabetes. In a patient with classic symptoms of hyperglycemia or hyperglycemic crisis, a random glucose >/= 200 mg/dl is diagnostic for diabetes. In the absence of unequivocal hyperglycemia, results should be confirmed by repeat testing. The classification and Diagnosis of Diabetes Diabetes Care 2021; 46: S19-S40. Current interpretive data was last revised 2022. Calcium 9.4 8.5 - 10.3 mg/dL [facility] Blood 05/15/2024 11:4 0 PM CDT 05/16/2024 12:13 AM CDT us Hope Brito NP LAB BLOOD ORDERABLES Fin al Result Performing Organization Address City/[facility]/ZIP Co de Phone Number [facility] [place] [address] * POCT glucose (05/15/2024 8:35 PM CDT) [facility] Glucose, POC 123 70 - 199 mg/dL Blood 05/15/2024 8:35 PM CDT 05/15/2024 8:35 PM CDT us Sabino Luke MD LAB POCT ORDERABLES - DE VICE Final Result Performing Organization Address City/[facility]/ZIP Co de Phone Number [facility] [place] [address] * POCT glucose (05/15/2024 4:43 PM CDT) Glucose, POC 115 70 - 199 mg/dL Blood 05/15/2024 4:43 PM CDT 05/15/2024 4:43 PM CDT Sabino Luke MD LAB POCT ORDERABLES - DE VICE Final Result Performing Organization Address [facility] Co de Phone Number [facility] [place] [address] * POCT glucose (05/15/2024 11:30 AM CDT) Glucose, POC 155 70 - 199 mg/dL Blood 05/15/2024 11:3 0 AM CDT 05/15/2024 11:30 AM CDT Sabino Luke MD LAB POCT ORDERABLES - DE VICE Final Result Performing Organization Address [facility] Co de Phone Number [facility] [place] [address] * POCT glucose (05/15/2024 8:19 AM CDT) Glucose, POC 146 70 - 199 mg/dL Blood 05/15/2024 8:19 AM CDT 05/15/2024 8:19 AM CDT Sabino Luke MD LAB POCT ORDERABLES - DE VICE Final Result Performing Organization Address [facility] Co de Phone Number [facility] [place] [address] * eGFR (05/14/2024 11:11 PM CDT) eGFR >90 >=60 mL/min/1. 73 m2 Comment: Interpretive Data Reference Interval Normal ?>/= 90 mL/min/1.73m2 Mildly decreased* ? 60 - 89 mL/min/1.73m2 Mildly to moderately decreased ?45 - 59 mL/min/1.73m2 Moderately to severely decreased ??30 - 44 mL/min/1.73m2 Severely decreased ?15 - 29 mL/min/1.73m2 Kidney Failure ?< 15 ??mL/min/1.73m2 *Relative to young adult level Estimated glomerular filtration rate is determined by the 2020 CKD-EPI equation recommended by the National Kidney Foundation (A Unifying Approach to GFR Estimation: Recommendations of the NKF-ASK Task Force on Reassessing the Inclusion of Race in Diagnosing Kidney Disease, JASN 2020). The CKD-EPI equation should not be used for patients with unstable renal function and has not been validated in children and those over 70. Current interpretive data was last reviewed 2021. Blood 05/14/2024 11:1 1 PM CDT 05/15/2024 4:35 AM CDT Hope Brito NP LAB BLOOD ORDERABLES Fin al Result Performing Organization Address [facility] de Phone Number JASMIN [facility] [place] [address] * Magnesium (05/14/2024 11:11 PM CDT) Magnesium 1.9 1.4 - 2.5 mg/dL Blood 05/14/2024 11:1 1 PM CDT 05/15/2024 4:35 AM CDT Hope Brito NP LAB BLOOD ORDERABLES Fin al Result JASMIN [facility] [place] [address] * (ABNORMAL) Basic metabolic panel (05/14/2024 11:11 PM CDT) Pathologist [facility] Sodium 133(L) 135 - 145 mmol/L Potassium, pl 3.0(L) 3.3 - 4.9 mmol/L [facility] Chloride 91(L) 97 - 110 mmol/L [facility] CO2 27 22 - 32 mmol/L [facility] Anion gap 15 2 - 15 mmol/L [facility] BUN 7 6 - 25 mg/dL [facility] Creatinine 0.56(L) 0.60 - 1.10 mg/dL [facility] Glucose 133 70 - 199 mg/dL [facility] Comment: Interpretive Data Fasting glucose >/= 126 mg/dl is diagnostic for diabetes. ?? Fasting is defined as no caloric intake for at least 8 hours. Fasting glucose between 100 mg/dl to 125 mg/dl is diagnostic of prediabetes. In a patient with classic symptoms of hyperglycemia or hyperglycemic crisis, a random glucose >/= 200 mg/dl is diagnostic for diabetes. In the absence of unequivocal hyperglycemia, results should be confirmed by repeat testing. The classification and Diagnosis of Diabetes Diabetes Care 2021; 46: S19-S40. Current interpretive data was last revised 2022. Calcium 9.1 8.5 - 10.3 mg/dL [facility] Blood 05/14/2024 11:1 1 PM CDT 05/15/2024 4:35 AM CDT us Hope Brito [employer] LAB BLOOD ORDERABLES Fin al Result JASMIN [facility] [place] [address] * (ABNORMAL) CBC without differential (05/14/2024 11:11 PM CDT) Pathologist [facility] WBC 7.2 3.8 - 9.9 K/cumm Hgb 11.1(L) 11.9 - 15.5 g/dL [facility] Hct 33.4(L) 35.6 - 45.5 % [facility] Plt 260 150 - 400 K/cumm [facility] MPV 10.1 9.1 - 12.3 fL [facility] RBC 3.99 3.90 - 5.20 M/cumm [facility] MCV 83.7 81.3 - 96.4 fL [facility] MCH 27.8 27.1 - 33.3 pg [facility] MCHC 33.2 32.3 - 35.7 g/dL [facility] RDW CV 14.2 11.1 - 14.9 % [facility] RDW SD 43.6 35.7 - 48.1 fL [facility] NRBC abs 0.00 0.00 - 0.01 K/cumm [facility] Blood 05/14/2024 11:1 1 PM CDT 05/15/2024 4:17 AM CDT Hope Brito NP LAB BLOOD ORDERABLES Fin al Result [facility] [place] [address] * POCT glucose (05/14/2024 9:05 PM CDT) Glucose, POC 130 70 - 199 mg/dL Blood 05/14/2024 9:05 PM CDT 05/14/2024 9:05 PM CDT Sabino Luke MD LAB POCT ORDERABLES - DE VICE Final Result [facility] [place] [address] * POCT glucose (05/14/2024 5:00 PM CDT) Glucose, POC 131 70 - 199 mg/dL Blood 05/14/2024 5:00 PM CDT 05/14/2024 5:00 PM CDT Sabino Luke MD LAB POCT ORDERABLES - DE VICE Final Result Performing Organization Address [facility] Phone Number [facility] [place] [address] * POCT glucose (05/14/2024 11:40 AM CDT) Glucose, POC 125 70 - 199 mg/dL Blood 05/14/2024 11:4 0 AM CDT 05/14/2024 11:40 AM CDT Sabino Luke MD LAB POCT ORDERABLES - DE VICE Final Result Performing Organization Address [facility] Phone Number [facility] [place] [address] * POCT glucose (05/14/2024 7:46 AM CDT) Glucose, POC 174 70 - 199 mg/dL Blood 05/14/2024 7:46 AM CDT 05/14/2024 7:46 AM CDT Sabino Luke MD LAB POCT ORDERABLES - DE VICE Final Result Performing Organization Address [facility] [place] [address] * eGFR (05/14/2024 12:11 AM CDT) eGFR >90 >=60 mL/min/1. 73 m2 Comment: Interpretive Data Reference Interval Normal ?>/= 90 mL/min/1.73m2 Mildly decreased* ? 60 - 89 mL/min/1.73m2 Mildly to moderately decreased ?45 - 59 mL/min/1.73m2 Moderately to severely decreased ??30 - 44 mL/min/1.73m2 Severely decreased ?15 - 29 mL/min/1.73m2 Kidney Failure ?< 15 ??mL/min/1.73m2 *Relative to young adult level Estimated glomerular filtration rate is determined by the 2020 CKD-EPI equation recommended by the National Kidney Foundation (A Unifying Approach to GFR Estimation: Recommendations of the NKF-ASK Task Force on Reassessing the Inclusion of Race in Diagnosing Kidney Disease, JASN 2020). The CKD-EPI equation should not be used for patients with unstable renal function and has not been validated in children and those over 70. Current interpretive data was last reviewed 2021. Blood 05/14/2024 12:1 1 AM CDT 05/14/2024 12:48 AM CDT Hope Brito NP LAB BLOOD ORDERABLES Fin al Result Performing Organization Address City/[facility] Co de Phone Number [facility] [place] [address] * Magnesium (05/14/2024 12:11 AM CDT) [facility] Magnesium 2.3 1.4 - 2.5 mg/dL Blood 05/14/2024 12:1 1 AM CDT 05/14/2024 12:48 AM CDT Hope Brito NP LAB BLOOD ORDERABLES Fin al Result Performing Organization Address [facility] Co de Phone Number JASMIN [facility] [place] [address] * (ABNORMAL) Basic metabolic panel (05/14/2024 12:11 AM CDT) [facility] Sodium 136 135 - 145 mmol/L Potassium, pl 3.9 3.3 - 4.9 mmol/L [facility] Chloride 99 97 - 110 mmol/L [facility] CO2 32 22 - 32 mmol/L [facility] Anion gap 5 2 - 15 mmol/L [facility] BUN 7 6 - 25 mg/dL [facility] Creatinine 0.55(L) 0.60 - 1.10 mg/dL [facility] Glucose 119 70 - 199 mg/dL [facility] Comment: Interpretive Data Fasting glucose >/= 126 mg/dl is diagnostic for diabetes. ?? Fasting is defined as no caloric intake for at least 8 hours. Fasting glucose between 100 mg/dl to 125 mg/dl is diagnostic of prediabetes. In a patient with classic symptoms of hyperglycemia or hyperglycemic crisis, a random glucose >/= 200 mg/dl is diagnostic for diabetes. In the absence of unequivocal hyperglycemia, results should be confirmed by repeat testing. The classification and Diagnosis of Diabetes Diabetes Care 2021; 46: S19-S40. Current interpretive data was last revised 2022. Calcium 9.0 8.5 - 10.3 mg/dL [facility] Blood 05/14/2024 12:1 1 AM CDT 05/14/2024 12:48 AM CDT us Hope Brito NP LAB BLOOD ORDERABLES Fin al Result [facility] [place] [address] * (ABNORMAL) CBC without differential (05/14/2024 12:11 AM CDT) [facility] WBC 9.0 3.8 - 9.9 K/cumm Hgb 10.6(L) 11.9 - 15.5 g/dL [facility] Hct 32.3(L) 35.6 - 45.5 % [facility] Plt 206 150 - 400 K/cumm [facility] MPV 9.5 9.1 - 12.3 fL [facility] RBC 3.79(L) 3.90 - 5.20 M/cumm [facility] MCV 85.2 81.3 - 96.4 fL [facility] MCH 28.0 27.1 - 33.3 pg [facility] MCHC 32.8 32.3 - 35.7 g/dL [facility] RDW CV 14.1 11.1 - 14.9 % [facility] RDW SD 44.1 35.7 - 48.1 fL [facility] NRBC abs 0.00 0.00 - 0.01 K/cumm [facility] Blood 05/14/2024 12:1 1 AM CDT 05/14/2024 12:48 AM CDT us Hope Brito NP LAB BLOOD ORDERABLES Fin al Result Performing Organization Address [facility] Co de Phone Number [facility] Department [place] [address] * (ABNORMAL) POCT glucose (05/13/2024 7:52 PM CDT) Glucose, POC 200(H) 70 - 199 mg/dL Blood 05/13/2024 7:52 PM CDT 05/13/2024 7:52 PM CDT us Sabino Luke MD LAB POCT ORDERABLES - DE VICE Final Result Performing Organization Address [facility] Co de Phone Number [facility] Department [place] [address] * (ABNORMAL) POCT glucose (05/13/2024 5:26 PM CDT) Glucose, POC 224(H) 70 - 199 mg/dL Blood 05/13/2024 5:26 PM CDT 05/13/2024 5:26 PM CDT Sabino Luke MD LAB POCT ORDERABLES - DE VICE Final Result JASMIN BJ [facility] [place] [address] * POCT glucose (05/13/2024 12:21 PM CDT) Glucose, POC 154 70 - 199 mg/dL Blood 05/13/2024 12:2 1 PM CDT 05/13/2024 12:21 PM CDT us Sabino Luke MD LAB POCT ORDERABLES - DE VICE Final Result Performing Organization Address City/[facility] Co de Phone Number JASMIN AREVALO [facility] [place] [address] * XR Chest 1 View (05/13/2024 9:40 AM CDT) Anatomical Region Laterality Modality Body, Chest N/A Computed Radiogr aphy 05/13/2024 10:4 1 AM CDT Impressions 05/13/2024 10:41 AM CDT Right internal jugular port catheter tip in superior vena cava. Anterior cervical spine fixation plate noted. Normal heart size and mediastinal contours. ??Underexpanded lungs with mild bibasilar atelectasis. ??No pneumothorax or definite pleural effusion. Electronically signed by: Omar Galvan M.D. Narrative 05/13/2024 10:41 AM CDT EXAMINATION: 1 view chest radiograph COMPARISON: No prior radiographs. Procedure Note Omar Galvan MD - 05/13/2024 EXAMINATION: 1 view chest radiograph COMPARISON: No prior radiographs. IMPRESSION: Right internal jugular port catheter tip in superior vena cava. Anterior cervical spine fixation plate noted. Normal heart size and mediastinal contours. Underexpanded lungs with mild bibasilar atelectasis. No pneumothorax or definite pleural effusion. Electronically signed by: Omar Galvan M.D. us Hope Brito [employer] IMG XR PROCEDURES Final Result * POCT glucose (05/13/2024 8:20 AM CDT) Glucose, POC 167 70 - 199 mg/dL Blood 05/13/2024 8:20 AM CDT 05/13/2024 8:20 AM CDT Sabino Luke MD LAB POCT ORDERABLES - DE VICE Final Result [facility] [place] [address] * eGFR (05/12/2024 10:14 PM CDT) eGFR >90 >=60 mL/min/1. 73 m2 Comment: Interpretive Data Reference Interval Normal ?>/= 90 mL/min/1.73m2 Mildly decreased* ? 60 - 89 mL/min/1.73m2 Mildly to moderately decreased ?45 - 59 mL/min/1.73m2 Moderately to severely decreased ??30 - 44 mL/min/1.73m2 Severely decreased ?15 - 29 mL/min/1.73m2 Kidney Failure ?< 15 ??mL/min/1.73m2 *Relative to young adult level Estimated glomerular filtration rate is determined by the 2020 CKD-EPI equation recommended by the National Kidney Foundation (A Unifying Approach to GFR Estimation: Recommendations of the NKF-ASK Task Force on Reassessing the Inclusion of Race in Diagnosing Kidney Disease, JASN 2020). The CKD-EPI equation should not be used for patients with unstable renal function and has not been validated in children and those over 70. Current interpretive data was last reviewed 2021. Blood 05/12/2024 10:1 4 PM CDT 05/12/2024 11:05 PM CDT Hope Brito NP LAB BLOOD ORDERABLES Fin al Result Performing Organization Address City/[facility] Co de Phone Number [facility] [place] [address] * Magnesium (05/12/2024 10:14 PM CDT) Pathologist [facility] Magnesium 2.1 1.4 - 2.5 mg/dL Blood 05/12/2024 10:1 4 PM CDT 05/12/2024 11:05 PM CDT Hope Brito NP LAB BLOOD ORDERABLES Fin al Result Performing Organization Address [facility] de Phone Number [facility] Department [place] [address] * Basic metabolic panel (05/12/2024 10:14 PM CDT) Pathologist [facility] Sodium 139 135 - 145 mmol/L Potassium, pl 3.4 3.3 - 4.9 mmol/L [facility] Chloride 101 97 - 110 mmol/L [facility] CO2 30 22 - 32 mmol/L [facility] Anion gap 8 2 - 15 mmol/L [facility] BUN 9 6 - 25 mg/dL [facility] Creatinine 0.68 0.60 - 1.10 mg/dL [facility] Glucose 151 70 - 199 mg/dL [facility] Comment: Interpretive Data Fasting glucose >/= 126 mg/dl is diagnostic for diabetes. ?? Fasting is defined as no caloric intake for at least 8 hours. Fasting glucose between 100 mg/dl to 125 mg/dl is diagnostic of prediabetes. In a patient with classic symptoms of hyperglycemia or hyperglycemic crisis, a random glucose >/= 200 mg/dl is diagnostic for diabetes. In the absence of unequivocal hyperglycemia, results should be confirmed by repeat testing. The classification and Diagnosis of Diabetes Diabetes Care 2021; 46: S19-S40. Current interpretive data was last revised 2022. Calcium 8.7 8.5 - 10.3 mg/dL [facility] Blood 05/12/2024 10:1 4 PM CDT 05/12/2024 11:05 PM CDT Hope Brito [employer]ER LAB BLOOD ORDERABLES Fin al Result Performing Organization Address City/[facility]/ZIP Co de Phone Number [facility] [place] [employer] [place] [address] * (ABNORMAL) CBC without differential (05/12/2024 10:14 PM CDT) [facility] WBC 10.9(H) 3.8 - 9.9 K/cumm Hgb 11.3(L) 11.9 - 15.5 g/dL [facility] Hct 34.9(L) 35.6 - 45.5 % [facility] Plt 216 150 - 400 K/cumm [facility] MPV 9.8 9.1 - 12.3 fL [facility] RBC 4.02 3.90 - 5.20 M/cumm [facility] MCV 86.8 81.3 - 96.4 fL [facility] MCH 28.1 27.1 - 33.3 pg [facility] MCHC 32.4 32.3 - 35.7 g/dL [facility] RDW CV 14.4 11.1 - 14.9 % [facility] RDW SD 46.5 35.7 - 48.1 fL [facility] NRBC abs 0.00 0.00 - 0.01 K/cumm [facility] Blood 05/12/2024 10:1 4 PM CDT 05/13/2024 12:16 AM CDT Hope Brito NP LAB BLOOD ORDERABLES Fin al Result [facility] [place] [address] * POCT glucose (05/12/2024 8:26 PM CDT) Glucose, POC 132 70 - 199 mg/dL Blood 05/12/2024 8:26 PM CDT 05/12/2024 8:26 PM CDT Sabino Luke MD LAB POCT ORDERABLES - DE VICE Final Result Performing Organization Address [facility] Co mo Phone Number [facility] [place] [address] * POCT glucose (05/12/2024 5:23 PM CDT) Glucose, POC 162 70 - 199 mg/dL Blood 05/12/2024 5:23 PM CDT 05/12/2024 5:23 PM CDT Sabino Luke MD LAB POCT ORDERABLES - DE VICE Final Result Performing Organization Address [facility] Co mo Phone Number [facility] [place] [address] * POCT glucose (05/12/2024 12:20 PM CDT) Glucose, POC 149 70 - 199 mg/dL Blood 05/12/2024 12:2 0 PM CDT 05/12/2024 12:20 PM CDT Sabino Luke MD LAB POCT ORDERABLES - DE VICE Final Result Performing Organization Address [facility] [place] [address] * POCT glucose (05/12/2024 8:18 AM CDT) Glucose, POC 144 70 - 199 mg/dL Blood 05/12/2024 8:18 AM CDT 05/12/2024 8:18 AM CDT Sabino Luke MD LAB POCT ORDERABLES - DE VICE Final Result Performing Organization Address [facility] Co de Phone Number [facility] Department [place] [address] * POCT glucose (05/11/2024 9:55 PM CDT) Glucose, POC 159 70 - 199 mg/dL Blood 05/11/2024 9:55 PM CDT 05/11/2024 9:55 PM CDT Sabino Luke MD LAB POCT ORDERABLES - DE VICE Final Result Performing Organization Address [facility] Phone Number [facility] [place] [address] * (ABNORMAL) Lipid panel (05/11/2024 9:44 PM CDT) Cholesterol 122 30 - 199 mg/dL Comment: Interpretive Data Ages < or = 19 years ??Acceptable: ? <170 mg/dL ??Borderline high: ??170-199 mg/dL ??High: ? >or= 200 mg/dL Ages > or = 20 years ??Desirable: ?<200 mg/dL ??Borderline high: ??200-239 mg/dL ??High: ? >or= 240 mg/dL Literature References: 1. Expert Panel on Integrated Guidelines for Cardiovascular Health and Risk Reduction in Children and Adolescents. Pediatrics 2011;128:S213 2. NCEP Expert Panel. Circulation 2004;110:227 Current Interpretive Data was last revised on 2018. Triglycerides 174(H) <=149 mg/dL [facility] Comment: Interpretive Data Ages < or = 9 years ??Acceptable: ? <75 mg/dL ??Borderline high: ??75-99 mg/dL ??High: ? >or= 100 mg/dL Ages 10 to 20 years ??Acceptable: ? <90 mg/dL ??Borderline high: ??90-129 mg/dL ??High: ? >or= 130 mg/dL Ages > or = 20 years ??Desirable: ?<150 mg/dL ??Borderline high: ??150-199 mg/dL ??High: ? 200-499 mg/dL ?Very high: ?? >or= 499 mg/dL Literature References: 1. Expert Panel on Integrated Guidelines for Cardiovascular Health and Risk Reduction in Children and Adolescents. Pediatrics 2011;128:S213 2. NCEP Expert Panel. Circulation 2004;110:227 Current Interpretive Data was last revised on 2018. HDL 40 >=40 mg/dL [facility] Comment: Interpretive Data Ages < or = 19 years ??Acceptable: ? >45 mg/dL ??Borderline low: ?? 40-45 mg/dL ??Low: ? <40 mg/dL Ages > or = 20 years ??Desirable: ?>or= 60 mg/dL ??Low: ? <40 mg/dL Literature References: 1. Expert Panel on Integrated Guidelines for Cardiovascular Health and Risk Reduction in Children and Adolescents. Pediatrics 2011;128:S213 2. NCEP Expert Panel. Circulation 2004;110:227 Current Interpretive Data was last revised on 2018. LDL, calculated 53 <=129 mg/dL [facility] Comment: Interpretive Data Ages < or = 19 years ??Acceptable: ? <110 mg/dL ??Borderline high: ??110-129 mg/dL ??High: ?>or= 130 mg/dL Ages > or = 20 years ??Optimal: ? <100 mg/dL ??Near optimal: ?100-129 mg/dL ??Borderline high: ?? 130-159 mg/dL ??High: ?>160 mg/dL Calculated using the Johnathan LDL-C estimating equation. This equation was implemented on 2024. Prior to this date LDL-C was estimated using the Friedewald equation. Literature References: 1. Expert Panel on Integrated Guidelines for Cardiovascular Health and Risk Reduction in Children and Adolescents. Pediatrics 2011;128:S213 2. NCEP Expert Panel. Circulation 2004;110:227 3. Johnathan Jaquez et al. JIHAN Cardiol. 2020 December 10;5(5):540-548. doi: 10.1001/jamacardio.2020.0013 Current Interpretive Data was last revised on 2024. Non-HDL Cholesterol 82 mg/dL JASMIN AREVALO Comment: Interpretive Data Ages < or = 19 years ??Acceptable: ?<120 mg/dL ??Borderline high: ??120-144 mg/dL ??High: ?>145 mg/dL Ages > or = 20 years ??When triglycerides are >200 mg/dL, Non-HDL cholesterol is a secondary target of ? therapy with treatment goals that are 30 mg/dL greater than the LDL cholesterol target. ? Literature References: 1. Expert Panel on Integrated Guidelines for Cardiovascular Health and Risk Reduction in Children and Adolescents. Pediatrics 2011;128:S213 2. NCEP Expert Panel. Circulation 2004;110:227 Current Interpretive Data was last revised on 2018. Chol/HDL ratio 3 [facility] Blood 05/11/2024 9:44 PM CDT 05/11/2024 10:45 PM CDT us Sabino Luke MD LAB BLOOD ORDERABLES Fin al Result JASMIN AREVALO [facility] [place] [address] * eGFR (05/11/2024 9:44 PM CDT) eGFR 78 >=60 mL/min/1. 73 m2 Comment: Interpretive Data Reference Interval Normal ?>/= 90 mL/min/1.73m2 Mildly decreased* ? 60 - 89 mL/min/1.73m2 Mildly to moderately decreased ?45 - 59 mL/min/1.73m2 Moderately to severely decreased ??30 - 44 mL/min/1.73m2 Severely decreased ?15 - 29 mL/min/1.73m2 Kidney Failure ?< 15 ??mL/min/1.73m2 *Relative to young adult level Estimated glomerular filtration rate is determined by the 2020 CKD-EPI equation recommended by the National Kidney Foundation (A Unifying Approach to GFR Estimation: Recommendations of the NKF-ASK Task Force on Reassessing the Inclusion of Race in Diagnosing Kidney Disease, JASN 2020). The CKD-EPI equation should not be used for patients with unstable renal function and has not been validated in children and those over 70. Current interpretive data was last reviewed 2021. Blood 05/11/2024 9:44 PM CDT 05/11/2024 10:45 PM CDT Roverto Merino MD LAB BLOOD ORDERABLES Fin al Result Performing Organization Address [facility] de Phone Number [facility] [place] [address] * Magnesium (05/11/2024 9:44 PM CDT) Magnesium 1.5 1.4 - 2.5 mg/dL Blood 05/11/2024 9:44 PM CDT 05/11/2024 10:45 PM CDT Roverto Merino MD LAB BLOOD ORDERABLES Fin al Result Performing Organization Address [facility]/ZIP Co de Phone Number [facility] [place] [address] * Basic metabolic panel (05/11/2024 9:44 PM CDT) Pathologist [facility] Sodium 142 135 - 145 mmol/L Potassium, pl 3.5 3.3 - 4.9 mmol/L [facility] Chloride 102 97 - 110 mmol/L [facility] CO2 27 22 - 32 mmol/L [facility] Anion gap 13 2 - 15 mmol/L [facility] BUN 14 6 - 25 mg/dL [facility] Creatinine 0.81 0.60 - 1.10 mg/dL [facility] Glucose 159 70 - 199 mg/dL [facility] Comment: Interpretive Data Fasting glucose >/= 126 mg/dl is diagnostic for diabetes. ?? Fasting is defined as no caloric intake for at least 8 hours. Fasting glucose between 100 mg/dl to 125 mg/dl is diagnostic of prediabetes. In a patient with classic symptoms of hyperglycemia or hyperglycemic crisis, a random glucose >/= 200 mg/dl is diagnostic for diabetes. In the absence of unequivocal hyperglycemia, results should be confirmed by repeat testing. The classification and Diagnosis of Diabetes Diabetes Care 2021; 46: S19-S40. Current interpretive data was last revised 2022. Calcium 8.6 8.5 - 10.3 mg/dL [facility] Blood 05/11/2024 9:44 PM CDT 05/11/2024 10:45 PM CDT us Roverto Merino MD LAB BLOOD ORDERABLES Fin al Result [facility] [place] [address] * (ABNORMAL) CBC without differential (05/11/2024 9:44 PM CDT) [facility] WBC 16.5(H) 3.8 - 9.9 K/cumm Hgb 12.3 11.9 - 15.5 g/dL [facility] Hct 38.3 35.6 - 45.5 % [facility] Plt 251 150 - 400 K/cumm [facility] MPV 9.3 9.1 - 12.3 fL [facility] RBC 4.48 3.90 - 5.20 M/cumm [facility] MCV 85.5 81.3 - 96.4 fL [facility] MCH 27.5 27.1 - 33.3 pg [facility] MCHC 32.1(L) 32.3 - 35.7 g/dL [facility] RDW CV 14.3 11.1 - 14.9 % [facility] RDW SD 44.3 35.7 - 48.1 fL [facility] NRBC abs 0.00 0.00 - 0.01 K/cumm [facility] Blood 05/11/2024 9:44 PM CDT 05/11/2024 10:47 PM CDT Roverto Merino MD LAB BLOOD ORDERABLES Fin al Result [facility] [place] [address] * POCT glucose (05/11/2024 6:02 PM CDT) Glucose, POC 149 70 - 199 mg/dL Blood 05/11/2024 6:02 PM CDT 05/11/2024 6:02 PM CDT Sabino Luke MD LAB POCT ORDERABLES - DE VICE Final Result [facility] [place] [address] * POCT glucose (05/11/2024 3:59 PM CDT) Glucose, POC 134 70 - 199 mg/dL Blood 05/11/2024 3:59 PM CDT 05/11/2024 3:59 PM CDT Sabino Luke MD LAB POCT ORDERABLES - DE VICE Final Result Performing Organization Address [facility] Co mo Phone Number [facility] [place] [address] * POCT glucose (05/11/2024 1:30 PM CDT) Glucose, POC 124 70 - 199 mg/dL Blood 05/11/2024 1:30 PM CDT 05/11/2024 1:30 PM CDT Sabino Luke MD LAB POCT ORDERABLES - DE VICE Final Result Performing Organization Address [facility] Co mo Phone Number [facility] [place] [address] * POCT glucose (05/11/2024 11:29 AM CDT) Glucose, POC 112 70 - 199 mg/dL Blood 05/11/2024 11:2 9 AM CDT 05/11/2024 11:29 AM CDT Sabino Luke MD LAB POCT ORDERABLES - DE VICE Final Result Performing Organization Address [facility] Co mo Phone Number [facility] [place] [address] documented in this encounter Visit Diagnoses Diagnosis Incarcerated incisional hernia- Primary Incisional hernia with obstruction Incarcerated incisional hernia [K43.0] Incisional hernia with obstruction Incisional hernia of anterior abdominal wall without obstruction or gangrene documented in this encounter Admitting Diagnoses Diagnosis Incarcerated incisional hernia Incisional hernia with obstruction Incisional hernia of anterior abdominal wall without obstruction or gangrene documented in this encounter Administered Medications Inactive Administered Medications - up to 3 most recent administrations Medication Order MAR Action Action Date Dose Rate Site acetaminophen (TYLENOL) tablet 1,000 mg 1,000 mg, oral, Once, On Sat05/11/24 at 1130, For 1 dose, Pre-Op Given 05/11/2024 11:16 AM CDT 1,000 mg acetaminophen (TYLENOL) tablet 1,000 mg 1,000 mg, oral, Every 8 hours scheduled, First dose on Sat05/11/24 at 2200, For 27 doses, Indications: PainIndications:Pain Given 05/19/2024 5:46 AM CDT 1,000 mg Given 05/18/2024 9:45 PM CDT 1,000 mg Given 05/18/2024 1:26 PM CDT 1,000 mg albuterol HFA (PROVENTIL HFA,VENTOLIN HFA,PROAIR HFA) 90 mcg/actuation inhaler 2 puff 2 puff, inhalation, Every 6 hours PRN (incident response consultant), wheezing, Starting on Sat05/12/24 at 0117, Indications: Acute Asthma AttackIndications:Acute Asthma Attack Given 05/17/2024 5:40 AM CDT 2 puff s ALPRAZolam (XANAX) tablet 0.5 mg 0.5 mg, oral, Nightly PRN, anxiety, Starting on Sat05/12/24 at 2120 Given 05/12/2024 9:58 PM CDT 0.5 mg ALPRAZolam (XANAX) tablet 0.5 mg 0.5 mg, oral, 2 times daily PRN, anxiety, Starting on Sat05/13/24 at 1443 Given 05/13/2024 8:40 PM CDT 0.5 mg Given 05/13/2024 2:59 PM CDT 0.5 mg ALPRAZolam (XANAX) tablet 0.5 mg 0.5 mg, oral, 3 times daily PRN, anxiety, Starting on Sat05/14/24 at 0710 Given 05/14/2024 9:49 PM CDT 0.5 mg Given 05/14/2024 8:51 AM CDT 0.5 mg amLODIPine (NORVASC) tablet 10 mg 10 mg, oral, Daily (early AM), First dose on Sat05/12/24 at 0600, Indications: hypertensionIndications:hypertension Given 05/19/2024 5:47 AM CDT 10 mg Given 05/18/2024 5:48 AM CDT 10 mg Given 05/17/2024 5:33 AM CDT 10 mg cyclobenzaprine (FLEXERIL) tablet 10 mg 10 mg, oral, Every 8 hours PRN, muscle spasms, Starting on Sat05/11/24 at 2023 Given 05/11/2024 8:53 PM CDT 10 mg cyclobenzaprine (FLEXERIL) tablet 10 mg 10 mg, oral, Every 8 hours, First dose (after last modification) on Sat05/12/24 at 0800 Given 05/19/2024 8:47 AM CDT 10 mg Given 05/19/2024 1:04 AM CDT 10 mg Given 05/18/2024 5:27 PM CDT 10 mg dextrose (D10W) 10% bolus 250 mL 250 mL, intravenous, at 1,000 mL/hr, Administer over 15 Minutes, Every 15 min PRN, blood glucose less than 70 mg/dL and UNABLE to swallow/take PO glucose/juice., Starting on Sat05/11/24 at 2023, After treatment for hypoglycemia, recheck BG followed by treatment every 15 minutes until the BG is greater than 100 mg/dL. Then check BG 1 hour post treatment. If BG is less than 100 mg/dL, repeat Q15 minute BG checks and treatment. Call MD for each episode of hypoglycemia., Indications: hypoglycemic disorderIndications:hypoglycemic disorder dextrose gel in packet 15 g 15 g, oral, Every 15 min PRN, low blood sugar, blood glucose less than 70 mg/dL, Starting on Sat05/11/24 at 2023, If patient is alert and able to eat/drink, give 15 gm glucose or one juice (4 fluid ounces) NOT ORANGE JUICE. After treatment for hypoglycemia, recheck BG followed by treatment every 15 minutes until the BG is greater than 100 mg/dL. Then check BG 1 hour post-treatment. If BG is less than 100 mg/dL, repeat Q15 minute BG checks and treatment. Call MD for each episode of hypoglycemia., Indications: hypoglycemic disorderIndications:hypoglycemic disorder diphenhydrAMINE (BENADRYL) 50 mg/mL injection 50 mg 50 mg, intravenous, Administer over 2 Minutes, Once, On Sat05/18/24 at 0830, For 1 dose, Give dose 1 hour prior to contrast media injection, Indications: IV Contrast Media Allergy PremedicationIndications:IV Contrast Media Allergy Premedication Given 05/18/2024 2:48 PM CDT 50 mg docusate sodium (COLACE) capsule 100 mg 100 mg, oral, 2 times daily, First dose on Sat05/11/24 at 2100, Hold for diarrhea., Indications: constipationIndications:constipation Given 05/19/2024 8:47 AM CDT 100 mg Given 05/18/2024 9:22 AM CDT 100 mg Given 05/17/2024 8:31 PM CDT 100 mg heparin 100 unit/mL injection 500 Units 500 Units (5 mL), intra-catheter, Once, On Sat05/19/24 at 1100, For 1 dose, For port decannulation., Indications: Maintain Patency of Indwelling Vascular CatheterIndications:Maintai n Patency of Indwelling Vascular Catheter Given 05/19/2024 10:58 AM CDT 500 Units heparin 5,000 unit/mL injection 5,000 Units 5,000 Units, subcutaneous, Once, On Sat05/11/24 at 1130, For 1 dose, Pre-Op, Indications: Deep Vein Thrombosis PreventionIndications:Deep Vein Thrombosis Prevention Given 05/11/2024 11:16 AM CDT 5,000 Units Left Lower Abdomen heparin 5,000 unit/mL injection 5,000 Units 5,000 Units, subcutaneous, Every 8 hours scheduled, First dose on Sat05/11/24 at 2200, Indications: Deep Vein Thrombosis PreventionIndications:Deep Vein Thrombosis Prevention Given 05/19/2024 5:46 AM CDT 5,000 Units Other (Comment) Given 05/18/2024 9:44 PM CDT 5,000 Units R ight Outer Thigh Given 05/18/2024 1:27 PM CDT 5,000 Units L eft Upper Arm hydroCHLOROthiazide (HYDRODIURIL) tablet 25 mg 25 mg, oral, Daily (early AM), First dose on Sat05/14/24 at 0600, Indications: hypertensionIndications:hypertension Given 05/19/2024 5:46 AM CDT 25 mg Given 05/18/2024 5:48 AM CDT 25 mg Given 05/17/2024 5:33 AM CDT 25 mg HYDROmorphone (DILAUDID) injection 0.2 mg 0.2 mg, intravenous, Administer over 2 Minutes, Every 3 hours PRN, breakthrough pain, Starting on Sat05/13/24 at 0729 HYDROmorphone in 0.9% sodium chloride (DILAUDID) 20 mg/100 mL (0.2 mg/mL) (premix) Continuous: none, RADIATION THERAPIST dose: 0.2 mg, RADIATION THERAPIST lockout: 10 Minutes, 1 hour limit: 1.2 mg, intravenous, Continuous, Starting on Sat05/11/24 at 1815, Until Sat05/13/24 at 0730, 100 mL, Indications: Pain, RoutineIndications:Pain New Syringe/Cartridge 05/11/2024 5:48 PM CDT influenza trivalent [id number] (FLUZONE HIGH DOSE) 180 mcg/0.5 mL vaccine (HIGH DOSE age 65 years and up) 0.5 mL 0.5 mL, intramuscular, During hospitalization, immunization, Starting on Sat05/12/24 at 1431, For 1 dose, Indications: influenza vaccinationIndications:in fluenza vaccination Given 05/19/2024 8:02 AM CDT 0.5 mL Left Deltoid insulin lispro (HumaLOG, ADMELOG) 100 unit/mL injection 0-4 Units 0-4 Units, subcutaneous, Nightly, First dose on Sat05/11/24 at 2100, Blood glucose mg/dL: 199 or less: No insulin 200-249: add 1 unit 250-299: add 2 units 300-349: add 3 units and notify physician for adjustment of insulin orders. 350-399: add 4 units and notify physician for adjustment of insulin orders. Over 400: Notify physician for adjustment of insulin orders. Do NOT hold for NPO Status, Indications: Diabetes MellitusIndications:Diabe shannan Mellitus Given 05/13/2024 8:00 PM CDT 1 Units Left Upper Arm insulin lispro (HumaLOG, ADMELOG) 100 unit/mL injection 0-5 Units 0-5 Units, subcutaneous, 3 times daily with meals, First dose on Sat05/12/24 at 0800, Blood glucose mg/dL: 149 or less: No insulin 150-199: add 1 unit 200-249: add 2 units 250-299: add 3 units 300-349: add 4 units and notify physician for adjustment of insulin orders. 350-399: add 5 units and notify physician for adjustment of insulin orders. Over 400: Notify physician for adjustment of insulin orders. Do NOT hold for NPO Status, Indications: Diabetes MellitusIndications:Diabe shannan Mellitus Given 05/18/2024 5:26 PM CDT 1 Units Right Upper Arm Given 05/17/2024 5:33 PM CDT 1 Units Le ft Upper Arm Given 05/16/2024 5:43 PM CDT 1 Units Le ft Upper Arm ioversoL (OPTIRAY 350) syringe 100 mL 100 mL, intravenous, Once in imaging, contrast, Starting on Sat05/18/24 at 1605, For 1 dose Contrast Given 05/18/2024 4:14 PM CDT 93 mL Lactated Ringer's (LR) bolus 1,000 mL 1,000 mL, intravenous, at 500 mL/hr, Administer over 2 Hours, Once, On Sat05/12/24 at 0800, For 1 dose New Bag 05/12/2024 9:01 AM CDT 1,000 mL 500 mL/hr Lactated Ringer's (LR) infusion 30 mL/hr, intravenous, Continuous, Starting on Sat05/11/24 at 1130, Pre-Op Restarted 05/11/2024 1:14 PM CDT Rate/Dose Verify 05/11/2024 12:24 PM CDT 30 mL/ hr New Bag 05/11/2024 11:16 AM CDT 30 mL/hr 30 mL/hr Lactated Ringer's (LR) infusion 100 mL/hr, intravenous, Continuous, Starting on Sat05/11/24 at 1815, Phase I & Post-op Floor, May discontinue when tolerating PO (more than 250 mL in 8 hours) New Bag 05/13/2024 8:22 AM CDT 100 mL/hr 100 mL/hr New Bag 05/12/2024 10:40 PM CDT 100 mL/hr 100 mL/hr Rate/Dose Verify 05/12/2024 5:15 PM CDT 100 mL/hr 100 mL/ hr magnesium oxide (MAG-OX) tablet 400 mg 400 mg, oral, Once, On Sat05/15/24 at 0615, For 1 dose, 1 tablet = Magnesium oxide 400 mg = 241.3 mg elemental magnesium, Indications: hypomagnesemiaIndications:hypomagnesemia Given 05/15/2024 6:13 AM CDT 400 mg magnesium sulfate 2 g/50 mL in water (premix) 2 g 2 g, intravenous, Administer over 60 Minutes, Once, On Sat05/12/24 at 0030, For 1 dose New Bag 05/12/2024 1:51 AM CDT 2 g methylPREDNISolone sodium succinate (SOLU-medrol) preservative free injection 40 mg 40 mg, intravenous, Administer over 3 Minutes, Every 4 hours, First dose on Sat05/18/24 at 0830, Administer immediately. If there is a delay beyond 4 hours then repeat dose every 4 hours until study is complete. Discontinue after contrast study completed., Indications: IV Contrast Media Allergy PremedicationIndications:IV Contrast Media Allergy Premedication Given 05/18/2024 1:27 PM CDT 40 mg Given 05/18/2024 9:21 AM CDT 40 mg naloxegoL (MOVANTIK) tablet 25 mg 25 mg, oral, Once, On Sat05/11/24 at 1130, For 1 dose, Pre-Op Given 05/11/2024 11:16 AM CDT 25 mg oxyCODONE (ROXICODONE) tablet 5 mg 5 mg, oral, Every 4 hours PRN, 2nd line for pain, Starting on Sat05/13/24 at 0729, May repeat in 1 hour if pain is uncontrolled or increasing. Max 2 doses within 1 dosing interval., Indications: PainIndications:Pain Given 05/17/2024 3:38 AM CDT 5 mg Given 05/16/2024 10:57 AM CDT 5 mg Given 05/15/2024 1:24 PM CDT 5 mg polyethylene glycol (MIRALAX) packet 17 g 17 g, oral, Daily, First dose on Sat05/13/24 at 0900, Indications: constipationIndications:constipation Given 05/18/2024 9:22 AM CDT 17 g Given 05/17/2024 8:07 AM CDT 17 g Given 05/16/2024 8:34 AM CDT 17 g potassium chloride (KLOR-CON) packet 20 mEq 20 mEq, oral, Every 4 hours, First dose on Sat05/15/24 at 0615, For 3 doses, Total dose = 60 mEq. Recommend to dilute each 15 mL with at least 6 ounces of water or juice prior to administration. Dissolve one packet in at least 120 mL of cold water or other beverage prior to administration. Given 05/15/2024 6:13 AM CDT 20 mEq potassium chloride 40 mEq/520 mL in sodium chloride 0.9% (premix) 40 mEq 40 mEq, intravenous, at 130 mL/hr, Administer over 4 Hours, Once, On Sat05/12/24 at 0030, For 1 dose, Indications: hypokalemiaIndications:hypokalemia New Bag 05/12/2024 3:26 AM CDT 40 mEq 130 mL/hr potassium chloride ER (KLOR-CON) extended release tablet 30 mEq 30 mEq, oral, Every 4 hours, First dose on Sat05/15/24 at 0730, For 2 doses, Total dose = 60 mEq Tablets should not be crushed, chewed, dissolved, or otherwise manipulated. Capsules may be opened and sprinkled on a spoonful of applesauce or pudding, but the contents of the capsule should not be crushed or chewed. Given 05/15/2024 11:29 AM CDT 30 mEq Given 05/15/2024 8:27 AM CDT 30 mEq potassium chloride ER (KLOR-CON) extended release tablet 40 mEq 40 mEq, oral, Once, On Sat05/13/24 at 1000, For 1 dose, Tablets should not be crushed, chewed, dissolved, or otherwise manipulated. Capsules may be opened and sprinkled on a spoonful of applesauce or pudding, but the contents of the capsule should not be crushed or chewed. Given 05/13/2024 9:28 AM CDT 40 mEq ramelteon (ROZEREM) tablet 8 mg 8 mg, oral, Once, On Sat05/17/24 at 2130, For 1 dose, Indications: Sleep-Onset InsomniaIndications:Sleep-Onset Insomnia Given 05/17/2024 9:02 PM CDT 8 m g sertraline (ZOLOFT) tablet 50 mg 50 mg, oral, Daily, First dose on Sat05/11/24 at 2100, Indications: Anxiety with DepressionIndications:Anxiety with Depression Given 05/18/2024 9:4 4 PM CDT 50 mg Given 05/17/2024 8:31 PM CDT 50 mg Given 05/16/2024 8:34 AM CDT 50 mg simvastatin (ZOCOR) tablet 20 mg 20 mg, oral, Nightly, First dose on Sat05/11/24 at 2100, Indications: hyperlipidemiaIndications:hyperlipidemia Given 05/18/2024 9:44 PM CDT 20 mg Given 05/17/2024 8:31 PM CDT 20 mg Given 05/16/2024 9:14 PM CDT 20 mg sodium chloride 0.9% flush 0.5-20 mL 0.5-20 mL, intra-catheter, Every 8 hours scheduled, First dose on Sat05/11/24 at 2200, Flush volume based on line type and size. Given 05/19/2024 5:51 AM CDT 10 mL Given 05/18/2024 9:50 PM CDT 10 mL Given 05/18/2024 6:03 AM CDT 10 mL sodium chloride tablet 1 g 1 g, oral, 3 times daily with meals, First dose on 05/16/24 at 0800, For 3 doses, Each 1 gram tablet contains 17 mEq of sodium. Given 05/16/2024 5:43 PM CDT 1 g Given 05/16/2024 11:26 AM CDT 1 g Given 05/16/2024 8:34 AM CDT 1 g documented in this encounter Discontinued Medications Medication Sig Discontinue Reason Start Date End Da te oxyCODONE (ROXICODONE) 5 mg immediate release tabletIndications:Huan n Take 1 tablet (5 mg total) by mouth every 4 (four) hours as needed for pain 05/18/2024 05/18/2024 ALPRAZolam (XANAX) 0.5 mg tablet Take 1 tablet (0.5 mg total) by mouth 3 (three) times a day as needed for anxiety 05/18/2024 05/18/2024 hydroCHLOROthiazide (HYDRODIURIL) 25 mg tabletIndications:hyp ertension Take 1 tablet (25 mg total) by mouth strapping machine tender before breakfast 05/18/2024 sertraline (ZOLOFT) 50 mg tabletIndications:Anx iety with Depression Take 1 tablet (50 mg total) by mouth every evening 05/18/2024 simvastatin (ZOCOR) 20 mg tabletIndications:hyp erlipidemia Take 1 tablet (20 mg total) by mouth nightly 05/08/2018 05/18/2024 budesonide-formoteroL (SYMBICORT) 160-4.5 mcg/actuation inhalerIndications:Ac ambler Asthma Attack Inhale 2 puffs 2 (two) times a day as needed (SOB) 05/18/2024 ciclesonide (Alvesco) 80 mcg/actuation inhalerIndications:Ma intenance Therapy for Asthma Inhale 1 puff 2 (two) times a day as needed (SOB) 01/07/2014 05/18/2024 fluticasone propionate (FLONASE) 50 mcg/actuation nasal sprayIndications:Jeremie rgic Rhinitis Administer 1 spray into each nostril daily as needed for allergies 05/18/2024 albuterol HFA (PROVENTIL HFA,VENTOLIN HFA,PROAIR HFA) 90 mcg/actuation inhalerIndications:Ac ambler Asthma Attack Inhale 2 puffs every 6 (six) hours as needed for wheezing 05/18/2024 potassium chloride ER 20 mEq CR tabletIndications:sup plement Take 1 tablet (20 mEq total) by mouth every other day 01/08/2023 05/18/2024 cyanocobalamin, vitamin B-12, 5,000 mcg/mL dropsIndications:Prev ention of Vitamin B12 Def[address] 5,000 mcg under the tongue strapping machine tender before breakfast 05/18/2024 iron,carb/vit C/vit B12/folic (IRON 100 PLUS ORAL)Indications:supp lement Take 100 mg by mouth strapping machine tender before breakfast 05/18/2024 metFORMIN (GLUCOPHAGE) 500 mg tabletIndications:typ e 2 diabetes mellitus Take 1 tablet (500 mg total) by mouth 2 (two) times a day with meals 05/18/2024 Farxiga 10 mg tabletIndications:typ e 2 diabetes mellitus Take 1 tablet (10 mg total) by mouth strapping machine tender before breakfast 12/12/2023 05/18/2024 amLODIPine (NORVASC) 10 mg tabletIndications:hyp ertension Take 1 tablet (10 mg total) by mouth strapping machine tender before breakfast 12/12/2023 05/18/2024 hydrOXYzine (ATARAX) 25 mg tablet Take 1 tablet 4 times a day by oral route. 05/18/2024 dicyclomine (BENTYL) 20 mg tabletIndications:Abd ominal Pain with Cramps Take 1 tablet (20 mg total) by mouth 2 (two) times a day 02/06/2024 05/18/2024 cyclobenzaprine (FLEXERIL) 10 mg tabletIndications:Mus yifan Spasm Take 1 tablet (10 mg total) by mouth 2 (two) times a day as needed for muscle spasms 05/18/2024 acetaminophen 500 mg capsuleIndications:Pa in Take 2 capsules (1,000 mg total) by mouth every 6 (six) hours as needed for pain 05/13/2024 05/18/2024 docusate sodium (COLACE) 100 mg capsuleIndications:co nstipation Take 1 capsule (100 mg total) by mouth 2 (two) times a day 05/13/2024 05/19/2024 ALPRAZolam (XANAX) 1 mg tabletIndications:anx iety Take 1 tablet (1 mg total) by mouth nightly as needed for anxiety Stop Taking at Discharge 05/19/2024 documented as of this encounter Active and Recently Administered Medications Times are shown in CDT. Scheduled Medication Order 05/17/2024 05/18/2024 05/19/2024 acetaminophen (TYLENOL) tablet 1,000 mg 1,000 mg, oral, Every 8 hours scheduled, First dose on Sat05/11/24 at 2200, For 27 doses, Indications: Pain 0533 (Given - Provider: Stacey Johnson RN)1333 (Given - Provider: Saleem Espinosa RN)2030 (Given - Provider: Stacey Johnson RN) 0548 (Given - Provider: Stacey Johnson RN)1326 (Given - Provider: Ronda Lozano)2144 (Given - Provider: Raquel Shipman, JESSICA) 0546 (Given - Provider: Raquel Shipman, JESSICA) amLODIPine (NORVASC) tablet 10 mg 10 mg, oral, Daily (early AM), First dose on Sat05/12/24 at 0600, Indications: hypertension 0533 (Given - Provider: Stacey Johnson RN) 0548 (Given - Provider: Stacey Johnson RN) 0547 (Given - Provider: Raquel Shipman, JESSICA) cyclobenzaprine (FLEXERIL) tablet 10 mg 10 mg, oral, Every 8 hours, First dose (after last modification) on Sat05/12/24 at 0800 0807 (Given - Provider: Saleem Espinosa RN)1504 (Given - Provider: Saleem Espinosa RN)2306 (Given - Provider: Stacey Johnson RN) 0922 (Given - Provider: Ronda Lozano)1727 (Given - Provider: Ronda Lozano) 0104 (Given - Provider: Noreen Oneill, JESSICA)0847 (Given - Provider: Ronda Lozano) diphenhydrAMINE (BENADRYL) 50 mg/mL injection 50 mg (COMPLETED) 50 mg, intravenous, Administer over 2 Minutes, Once, On Sat05/18/24 at 0830, For 1 dose, Give dose 1 hour prior to contrast media injection, Indications: IV Contrast Media Allergy Premedication 1448 (Given - Provider: Ronda Lozano - Comment: pt to recieve before CT) docusate sodium (COLACE) capsule 100 mg 100 mg, oral, 2 times daily, First dose on Sat05/11/24 at 2100, Hold for diarrhea., Indications: constipation 0807 (Given - Provider: Saleem Espinosa RN)2031 (Given - Provider: Stacey Johnson RN) 0922 (Given - Provider: Ronda Lozano)2127 (Not Given - Provider: Raquel Shipman RN - Reason: Patient/family refused) 0847 (Given - Provider: Ronda Lozano) heparin 100 unit/mL injection 500 Units (COMPLETED) 500 Units (5 mL), intra-catheter, Once, On Sat05/19/24 at 1100, For 1 dose, For port decannulation., Indications: Maintain Patency of Indwelling Vascular Catheter 1058 (Given - Provider: Juhi Mandujano, JESSICA) heparin 5,000 unit/mL injection 5,000 Units 5,000 Units, subcutaneous, Every 8 hours scheduled, First dose on Sat05/11/24 at 2200, Indications: Deep Vein Thrombosis Prevention 0533 (Given - Provider: Stacey Johnson RN)1333 (Given - Provider: Saleem Espinosa RN)2030 (Given - Provider: Stacey Johnson RN) 0548 (Given - Provider: Stacey Johnson RN)1327 (Given - Provider: Ronda Lozano)2144 (Given - Provider: Raquel Shipman, JESSICA) 0546 (Given - Provider: Raquel Shipman, JESSICA) hydroCHLOROthiazide (HYDRODIURIL) tablet 25 mg 25 mg, oral, Daily (early AM), First dose on Sat05/14/24 at 0600, Indications: hypertension 0533 (Given - Provider: Stacey Johnson RN) 0548 (Given - Provider: Stacey Johnson RN) 0546 (Given - Provider: Raquel Shipman, JESSICA) insulin lispro (HumaLOG, ADMELOG) 100 unit/mL injection 0-4 Units 0-4 Units, subcutaneous, Nightly, First dose on Sat05/11/24 at 2100, Blood glucose mg/dL: 199 or less: No insulin 200-249: add 1 unit 250-299: add 2 units 300-349: add 3 units and notify physician for adjustment of insulin orders. 350-399: add 4 units and notify physician for adjustment of insulin orders. Over 400: Notify physician for adjustment of insulin orders. Do NOT hold for NPO Status, Indications: Diabetes Mellitus 2016 (Not Given - Provider: Stacey Johnson RN - Reason: Order parameters not met) 2124 (Not Given - Provider: Raquel Shipman RN - Reason: Order parameters not met) insulin lispro (HumaLOG, ADMELOG) 100 unit/mL injection 0-5 Units 0-5 Units, subcutaneous, 3 times daily with meals, First dose on Sat05/12/24 at 0800, Blood glucose mg/dL: 149 or less: No insulin 150-199: add 1 unit 200-249: add 2 units 250-299: add 3 units 300-349: add 4 units and notify physician for adjustment of insulin orders. 350-399: add 5 units and notify physician for adjustment of insulin orders. Over 400: Notify physician for adjustment of insulin orders. Do NOT hold for NPO Status, Indications: Diabetes Mellitus 0753 (Not Given - Provider: Saleem Espinosa RN - Reason: Order parameters not met - Comment: [phone] (Not Given - Provider: Saleem Espinosa RN - Reason: Order parameters not met - Comment: [phone] (Given - Provider: Saleem Espinosa RN) 0927 (Not Given - Provider: Ronda Lozano - Reason: Order parameters not met)1214 (Not Given - Provider: Ronda Lozano - Reason: Order parameters not met)1726 (Given - Provider: Ronda Lozano) 0842 (Not Given - Provider: Ronda Lozano - Reason: Order parameters not met - Comment: BS 137) methylPREDNISolone sodium succinate (SOLU-medrol) preservative free injection 40 mg (CANCELED) 40 mg, intravenous, Administer over 3 Minutes, Every 4 hours, First dose on Sat05/18/24 at 0830, Administer immediately. If there is a delay beyond 4 hours then repeat dose every 4 hours until study is complete. Discontinue after contrast study completed., Indications: IV Contrast Media Allergy Premedication 0921 (Given - Provider: Ronda Lozano)1327 (Given - Provider: Ronda Lozano)1721 (Not Given - Provider: Ronda Lozano - Reason: Other - Comment: pt went to CT at 1530.) polyethylene glycol (MIRALAX) packet 17 g 17 g, oral, Daily, First dose on Sat05/13/24 at 0900, Indications: constipation 0807 (Given - Provider: Saleem Espinosa RN) 0922 (Given - Provider: Ronda Lozano) 0843 (Not Given - Provider: Ronda Lozano - Reason: Patient/family refused) ramelteon (ROZEREM) tablet 8 mg (COMPLETED) 8 mg, oral, Once, On Sat05/17/24 at 2130, For 1 dose, Indications: Sleep-Onset Insomnia 2101 (Given - Provider: Stacey Johnson, JESSICA) sertraline (ZOLOFT) tablet 50 mg 50 mg, oral, Daily, First dose on Sat05/11/24 at 2100, Indications: Anxiety with Depression 2030 (Given - Provider: Stacey Johnson, JESSICA) 2143 (Given - Provider: Raquel Shipman, JESSICA) simvastatin (ZOCOR) tablet 20 mg 20 mg, oral, Nightly, First dose on Sat05/11/24 at 2100, Indications: hyperlipidemia 2030 (Given - Provider: Stacey Johnson, JESSICA) 2144 (Given - Provider: Raquel Shipman, JESSICA) sodium chloride 0.9% flush 0.5-20 mL 0.5-20 mL, intra-catheter, Every 8 hours scheduled, First dose on Sat05/11/24 at 2200, Flush volume based on line type and size. 0523 (Given - Provider: Stacey Johnson, JESSICA)1333 (Given - Provider: Saleem Espinosa, JESSICA)2209 (Given - Provider: Stacey Johnson RN) 0603 (Given - Provider: Stacey Johnson, JESSICA)1428 (Not Given - Provider: Ronda Lozano - Reason: Order parameters not met)2150 (Given - Provider: Raquel Shipman RN) 0551 (Given - Provider: Raquel Shipman RN) sodium chloride 0.9% flush 10 mL 10 mL, intra-catheter, Once, On Sat05/19/24 at 1100, For 1 dose, Prior to heparin to decannulate port. 1100 (Due) PRN Medication Order 05/17/2024 05/18/2024 05/19/2024 albuterol HFA (PROVENTIL HFA,VENTOLIN HFA,PROAIR HFA) 90 mcg/actuation inhaler 2 puff 2 puff, inhalation, Every 6 hours PRN (incident response consultant), wheezing, Starting on Sat05/12/24 at 0117, Indications: Acute Asthma Attack 0540 (Given - Provider: Stacey Johnson, JESSICA) ALPRAZolam (XANAX) tablet 0.5 mg 0.5 mg, oral, 3 times daily PRN, anxiety, Starting on Avani 05/14/24 at 0710 Carrier Fluids for Secondary Infusion - 0.9% Sodium Chloride 30 mL, intravenous, As needed, For priming tubing and/or flushing, Starting on Sat05/11/24 at 2024, 0-250 ml/hr to flush line after IV infusions when no maintenance IV ordered. Infuse 30mL at the same rate as the secondary infusion. Run as primary IV, not intended for KVO. dextrose (D10W) 10% bolus 250 mL(Linked Group 1) 250 mL, intravenous, at 1,000 mL/hr, Administer over 15 Minutes, Every 15 min PRN, blood glucose less than 70 mg/dL and UNABLE to swallow/take PO glucose/juice., Starting on Sat05/11/24 at 2023, After treatment for hypoglycemia, recheck BG followed by treatment every 15 minutes until the BG is greater than 100 mg/dL. Then check BG 1 hour post treatment. If BG is less than 100 mg/dL, repeat Q15 minute BG checks and treatment. Call MD for each episode of hypoglycemia., Indications: hypoglycemic disorder dextrose gel in packet 15 g(Linked Group 1) 15 g, oral, Every 15 min PRN, low blood sugar, blood glucose less than 70 mg/dL, Starting on Sat05/11/24 at 2023, If patient is alert and able to eat/drink, give 15 gm glucose or one juice (4 fluid ounces) NOT ORANGE JUICE. After treatment for hypoglycemia, recheck BG followed by treatment every 15 minutes until the BG is greater than 100 mg/dL. Then check BG 1 hour post-treatment. If BG is less than 100 mg/dL, repeat Q15 minute BG checks and treatment. Call MD for each episode of hypoglycemia., Indications: hypoglycemic disorder glucagon injection 1 mg 1 mg, intramuscular, Every 30 min PRN, low blood sugar, blood glucose less than 70 mg/dL AND no IV access AND unable to take PO glucose/juice., Starting on Sat05/11/24 at 2023, After Glucagon is administered, position patient on side if possible to avoid aspiration. Obtain IV access. Follow glucagon treatment with glucose treatment or IV dextrose. After treatment for hypoglycemia, recheck BG followed by treatment every 15 minutes until the BG is greater than 100 mg/dL. Then check BG 1 hour post treatment. If BG is less than 100 mg/dL, repeat Q15 minute BG checks and treatment. Call MD for each episode of hypoglycemia. Reconstitute 1 mg vial with 1 mL SWFI. Use immediately following reconstitution. HYDROmorphone (DILAUDID) injection 0.2 mg 0.2 mg, intravenous, Administer over 2 Minutes, Every 3 hours PRN, breakthrough pain, Starting on Sat05/13/24 at 0729 influenza trivalent [id number] (FLUZONE HIGH DOSE) 180 mcg/0.5 mL vaccine (HIGH DOSE age 65 years and up) 0.5 mL (COMPLETED) 0.5 mL, intramuscular, During hospitalization, immunization, Starting on Sat05/12/24 at 1431, For 1 dose, Indications: influenza vaccination 0802 (Given - Provider: Raquel Shipman, RN) ioversoL (OPTIRAY 350) syringe 100 mL (COMPLETED) 100 mL, intravenous, Once in imaging, contrast, Starting on Sat05/18/24 at 1605, For 1 dose 1614 (Contrast Given - Provider: Ramo Cortés, RT) ondansetron (ZOFRAN) injection 4 mg 4 mg, intravenous, Administer over 2 Minutes, Every 6 hours PRN, nausea, vomiting, Starting on Sat05/11/24 at 2023, Proceed to prochlorperazine if no relief within 30 minutes. oxyCODONE (ROXICODONE) tablet 5 mg 5 mg, oral, Every 4 hours PRN, 2nd line for pain, Starting on Sat05/13/24 at 0729, May repeat in 1 hour if pain is uncontrolled or increasing. Max 2 doses within 1 dosing interval., Indications: Pain 0338 (Given - Provider: Stacey Johnson RN) prochlorperazine (COMPAZINE) injection 5 mg 5 mg, intravenous, Administer over 2 Minutes, Every 6 hours PRN, nausea, vomiting, Starting on Sat05/11/24 at 2023, If not relieved by ondansetron within 30 minutes. sodium chloride 0.9% flush 0.5-20 mL 0.5-20 mL, intra-catheter, As needed, line care, Starting on Sat05/11/24 at 2023, Flush volume based on line type and size. Flush before and after each use. Linked Groups Order Group 1: dextrose gel in packet 15 gJump to med 15 g, oral, Every 15 min PRN, low blood sugar, blood glucose less than 70 mg/dL, Starting on Sat05/11/24 at 2023, If patient is alert and able to eat/drink, give 15 gm glucose or one juice (4 fluid ounces) NOT ORANGE JUICE. After treatment for hypoglycemia, recheck BG followed by treatment every 15 minutes until the BG is greater than 100 mg/dL. Then check BG 1 hour post-treatment. If BG is less than 100 mg/dL, repeat Q15 minute BG checks and treatment. Call MD for each episode of hypoglycemia., Indications: hypoglycemic disorder Or dextrose (D10W) 10% bolus 250 mLJump to med 250 mL, intravenous, at 1,000 mL/hr, Administer over 15 Minutes, Every 15 min PRN, blood glucose less than 70 mg/dL and UNABLE to swallow/take PO glucose/juice., Starting on 05/11/24 at 2023, After treatment for hypoglycemia, recheck BG followed by treatment every 15 minutes until the BG is greater than 100 mg/dL. Then check BG 1 hour post treatment. If BG is less than 100 mg/dL, repeat Q15 minute BG checks and treatment. Call MD for each episode of hypoglycemia., Indications: hypoglycemic disorder documented in this encounter Orders Medications Ordered That James ht Not Have Been Administered Count Last Ordered Date First Ordered Date sodium chloride 0.9% flush 10 mL 1 05/19/20 HYDROmorphone (DILAUDID) injection 0.2 mg 2 05/13/2024 05/11/2024 albuterol HFA (PROVENTIL HFA ,VENTOLIN HFA,PROAIR HFA) 90 mcg/actuation inhaler 2 puff 05/11/2024 BUPivacaine (MARCAINE) 0.25 % (2.5 mg/mL) preservative free injection 05/11/2024 Carrier Fluids for Secondary Infusion - 0.9% Sodium Chloride 2 05/11/2024 ceFAZolin (ANCEF) 2,000 mg/2 0 mL in sterile water (premix) 2,000 mg 1 05/11/2024 dextrose (D10W) 10% bolus 250 mL 05/11/20 dextrose gel in packet 15 g 05/11/2024 fentaNYL (SUBLIMAZE) preserv ative free injection 50 mcg 1 05/11/2024 glucagon injection 1 mg 1 05/11/2024 HYDROmorphone (DILAUDID) injection 0.4 mg 1 05/11/2024 lidocaine (PF) (XYLOCAINE) 1 0 mg/mL (1 %) preservative free injection 2-10 mg 1 05/11/2024 naloxone (NARCAN) 0.4 mg/mL injection 0.04-0.4 mg 1 05/11/2024 ondansetron (ZOFRAN) injection 4 mg 2 05/11 prochlorperazine (COMPAZINE) injection 5 mg 1 05/11/2024 sodium chloride 0.9% flush 0.5-20 mL 2 04/14 sodium chloride 0.9% irrigation 1 sterile water irrigation 1 05/11/2024 Lab Orders Without Results Count Last Ordered D ate First Ordered Date POCT GLUCOSE DEVICE 27 05/19/2024 05/11/20 24 Imaging Orders Without Results Count Last Order ed Date First Ordered Date PEP THERAPY/AIRWAY CLEARANCE 8 05/17/2024 05/14/2024 General Supply Count Last Ordered Date First Or dered Date WALKER W/ WHEELS (LESS THAN 350 LBS.) 1 08/2023 Diet Count Last Ordered Date First Orde red Date ADULT DISCHARGE DIET 1 05/13/2024 Nursing Count Last Ordered Date First Orde red Date DISCHARGE INSTRUCTIONS 2 05/19/202405/18 DISCHARGE ACTIVITY 4 05/13/2024 DISCHARGE CALL PROVIDER 6 05/13/2024 DISCHARGE DRESSING 7 05/13/2024 WIGGINS CATHETER - DISCONTINUE 1 05/13/2024 NURSING COMMUNICATION 2 05/11/2024 Consult Count Last Ordered Date First Orde red Date AUTHORIZATION FOR POST-ACUTE CARE 1 024 IP CONSULT TO RESPIRATORY CARE 1 05/14/2024 Admission Count Last Ordered Date First Orde red Date ADMIT TO INPATIENT 1 05/11/2024 INITIATE OUTPATIENT IN A BED 1 05/11/2024 Discharge Count Last Ordered Date First Orde red Date DISCHARGE PATIENT 1 05/19/2024 ADT Patient Update Count Last Ordered Date Firs t Ordered Date PROVIDER TREATMENT TEAM 1 05/11/2024 documented in this encounter Care Teams Concrete Foreman Relationship Specialty Start Date End Date Rosibel Muse MD [address] [place] [address] [place] [address] PCP - General Family Medicine 03/22/23 05/11/24 Kathya Orona DO [facility] [address] [place] [address] PCP - General Family Medicine 05/12/24 Sabino Luke MD [address] [place] [address] Referring Physician General Surgery 12/06/23 documented as of this encounter
--- OUTSIDE RECORDS SUMMARY | 2024-08-17 08:46 | XMS_ITS | Encounter Summary ---
Author Organization [facility] Address [address] [place] [address] Phone Care Team Providers Care Main Entree Cook And Cashier Name Role Phone Sabino Luke MD Unavailable Kathya Orona DO Primary Care Provider [phone] Reason for Visit * Reason Onset Date Comments Medical Question/Miscellaneous 06/26/2024 Encounter Details Date Type Department Care Team (Late st Contact Info) Description 06/26/2024 Telephone [facility] Advanced Medicine ([facility]) - 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 Yes Reason for call?: Patient calling to reschedule her post op appt (Read message back to caller and ask them if there is anything else they'd like to add to the message) Who is the caller: January What is the best number for them to contact for a call back: [phone] PAPER JOURNALIST documented in this encounter Plan of Treatment [...] stairs Contact your local community or senior center for information on exercise, fall prevention programs, or options for improving home safety. documented as of this encounter Visit Diagnoses Not on filedocumented in this encounter Care Teams Main Entree Cook And Cashier Relationship Specialty Start Date End Date Kathya Orona DO [address] [facility] [address] [place] [id number] PCP - General Family Medicine 05/12/24 Sabino Luke MD [address] [place] [address] Referring Physician General Surgery 12/06/23 documented as of this encounter
--- OUTSIDE RECORDS SUMMARY | 2024-08-17 08:47 | XMS_ITS | Encounter Summary ---
Author Organization [facility] Address [address] [place] [address] Care Team Providers Care Manuscript Reader Name Role Phone No, Physician Primary Care Provider [phone] Encounter Details Date Type Department Care Team (Late st Contact Info) Description 02/08/2023 Telephone [facility] [address] [place], [place] [id number] [place] [id number] [place] [address] [address] [place], [place] [id number] Social History Tobacco Use Types Packs/Day Years Used Date Smoking Tobacco: Former Smokeless Tobacco: Never Alcohol Use Standard Drinks/Week Comments No 0 (1 standard drink = 0.6 oz pur e alcohol) Comments No Sex and Gender Information Value Date Recorded Sex Assigned at Not on file 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 Gender Identity Not on file Sexual Orientation Not on file Occupation Industry Job Start Date Job End Date Disability Not on file Not on file Not on file documented as of this encounter Miscellaneous Notes * Telephone Encounter - Sheila Wiseman - 02/08/2023 8:04 AM CDT PT CALLED AND STATED THAT ROSE IS STILL WAITING ON HER REF FOR PT documented in this encounter Plan of Treatment [...] as of this encounter Visit Diagnoses Diagnosis Spinal stenosis of lumbar region without neurogenic claudication- Primary documented in this encounter Care Teams Manuscript Reader Relationship Specialty Start Date End Date No, Physician PCP - General 04/24/18 03/21/23 documented as of this encounter
--- OUTSIDE RECORDS SUMMARY | 2024-08-17 08:47 | XMS_ITS | Encounter Summary ---
Author Organization [facility] Address [address] [place] [address] Care Team Providers Care Poker Supervisor Name Role Phone Rosibel Muse MD Primary Care Provider [phone] Sabino Luke MD Unavailable [phone] Encounter Details Date Type Department Care Team (Latest Contact Info) Description 04/16/2024 10:30 AM CDT Pre-Admission Testing [facility] Center for Preoperative Assessment and Planning [facility] ([facility]) [address] [place] [id number] Preoperative testing (Primary Dx) Anesthesia Record Procedure Summary Procedure Name Responsible Anesthesiologist Anesthesia Start Time Anesthesia Stop Time REPAIR INCISIONAL HERNIA (Abdomen) Naga Barbosa MD 05/11/24 1224 05/11/24 1738 Events Date Time Event Comment 05/11/2024 1050 In Preop 1205 1224 An Start 1228 An Start Data 1228 In Room 1247 An Induction The patient was reevaluated immediately before moderate or deep sedation use and before anesthesia induction. 1249 An Intubation 1253 Anesthesia Ready 1305 Proc Start 1305 Incision Start 1449 Quick Note Surgeon request ing further paralysis 1552 Local injected by surgeon TA P block 1719 Proc Fin 1725 An Extubation 1729 an stop data 1731 Out of Room 1738 Handoff to RN I completed my handoff to the receiving nurse during which we: 1. Patient identified 2. Responsible provider identified 3. Pertinent medical history reviewed 4. Procedure type and surgical course discussed 5. Intraoperative anesthetic management and any significant issues discussed 6. Expectations and concerns for postop period discussed 7. Questions solicited from receiving nurse 8. Patient disposition at the time of handoff: No value filed. 1738 An Stop Meds * Agents No agents on file. * Blood No blood administrations on file. Lines, Drains, and Airways Type Details Placement Removal Wound Incision; Abdomen; Mid-line 05/11/24 1404 by Implanted Port Orientation: Right; Location: Chest; Removal Time: 05/19/24; Removal Reason: 1050 04/16/24 1050 by 05/19/24 1050 by Ronda Lozano RETIRED Surgical Site 06/02/18; 1226; Sarkis ck; 07/14/24 (Retired LDA, Removed/Completed by [facility] with LDA Utility); 1213 (Retired LDA, Removed/Completed by [facility] with LDA Utility) 06/02/18 1226 by Monique Vallejo RN 07/14/24 1213 by Discharge Provider, Automatic RETIRED Surgical Site 06/23/18; 0936; Sarkis ck; 07/14/24 (Retired LDA, Removed/Completed by [facility] with LDA Utility); 1213 (Retired LDA, Removed/Completed by [facility] with LDA Utility) 06/23/18 0936 by Jennifer Wetzel RN 07/14/24 1213 by Discharge Provider, Automatic Peripheral IV Placement Date: 05/11/24; Placement Time: 1103; Catheter Size: 20 G; Orientation: Left; Location: Hand; Insertion Attempts: 1; Patient Tolerance: Tolerated well; Removal Date: 05/18/24; Removal Time: 215; Removal Reason: Other (Comment) 05/11/24 1103 by Raissa Lara 05/18/24 215 by Raquel Shipman RN Urethral Catheter Placement Date: 05/11/24; Placement Time: 1245; Inserted by: Rob Huber RN; Type: Double-lumen, Non-latex, Straight-tip; Balloon Size: 10 mL; Urine Returned: Yes; Removal Date: 05/13/24; Removal Time: 0830 05/11/24 1245 by Melly Renteria RN 05/13/24 0830 by Teagan Long RN ETT Placement Date: 05/11/24; Placement Time: 131 (created via procedure documentation); Mask Ventilation: 2; Technique: Video laryngoscopy; Type: ETT - single; Single Lumen Tube Size: 7 mm; Cuffed: Yes; Laryngoscope: Anh; Blade Size: 3; Location: Oral; Insertion Attempts: 1; Placement Verification: Auscultation, Capnometry; Removal Date: 05/11/24; Removal Time: 17205/11/24 1315 by Ganesh Ramirez MD 05/11/24 1725 by Ganesh Ramirez MD Peripheral IV Placement Date: 05/11/24; Placement Time: 131 (created via procedure documentation); Catheter Size: 20 G; Orientation: Left; Location: Forearm; Site Prep: Alcohol; Insertion Attempts: 1; Removal Date: 05/19/24; Removal Time: 10205/11/24 1316 by Ganesh Ramirez MD 05/19/24 1027 by Ronda Lozano Closed/Suction/Open Drain 05/11/24; 1605; No; 1; Right; RUQ; Bulb; 19 Fr.; 1 05/11/24 1605 by Melly Renteria RN 05/19/24 1027 by Ronda Lozano Closed/Suction/Open Drain 05/11/24; 1606; No; 2; Left; LUQ; Bulb; 19 Fr.; 1; Per order (removed by resident) 05/11/24 1606 by Melly Renteria RN 05/19/24 0000 by Ronda Lozano Closed/Suction/Open Drain 05/11/24; 1702; 3; Right; RLQ; Bulb; 15 Fr.; Per order (removed by resident) 05/11/24 1702 by Ayanna Warner RN 05/19/24 0000 by Ronda Lozano documented in this encounter Social History Tobacco Use Types Packs/Day Years [...] Never 04/16/2024 Personal Safety Answer Date Recorded Getting School Help Needed Not on file 07/26 Comments No Sex and Gender Information Value Date Recorded Sex Assigned at Not on file 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 Gender Identity Not on file Sexual Orientation Not on file Occupation Industry Job Start Date Job End Date Disability Not on file Not on file Not on file documented as of this encounter Last Filed Vital Signs Vital Sign Reading Time Taken Comments Blood Pressure 126/79 04/16/2024 10:30 AM CDT Pulse 74 04/16/2024 10:25 AM CDT Temperature - - Respiratory Rate 16 04/16/2024 10:2 5 AM CDT Oxygen Saturation 96% 04/16/2024 10: 25 AM CDT Inhaled Oxygen Concentration - - Weight 71.2 kg (156 lb 15.5 oz) 024 10:25 AM CDT Height 157.5 cm (5' 2 ) 04/16/2024 10:2 5 AM CDT Body Mass Index 28.71 04/16/2024 10:25 AM CDT documented in this encounter Miscellaneous Notes * Perioperative Nursing Note - Rupali Marshall, JESSICA - 04/16/2024 10:30 AM CDT Center for Preoperative Assessment and Planning Perioperative Nursing Note CPAP Clinic at [facility] ([facility]) Date: 04/16/24 This assessment was completed with the patient. Vitals: 04/16/24 1025 04/16/24 1030 BP: 123/82 126/79 BP Location: Right arm Left arm Patient Position: Sitting Sitting Pulse: 74 Resp: 16 SpO2: 96% Weight: 71.2 kg (156 lb 15.5 oz) Height: 157.5 cm (5' 2 ) CHEST CIRCUMFERENCE: n/a Social History Tobacco Use Smoking Status Former Current packs/day: 0.00 Average packs/day: 0.2 packs/day for 23.0 years (3.5 ttl pk-yrs) Types: Cigarettes Start date: 1977 Quit date: 2000 Years since quittin.6 Smokeless Tobacco Never Substance and Sexual Activity Drug Use No Alcohol Use Q1: How often do you have a drink containing alcohol?: Never Q2: How many drinks containing alcohol do you have on a typical day when you are drinking?: Patientdoes not drink Q3: How often do you have six or more drinks on one occasion?: Never Outpatient Medications Marked as Taking for the 04/16/24 encounter (Pre-Admission Testing) with [facility] CPAP NURSE Medication Sig Dispense Refill Accu-Chek Guide test strips strip Accu-Chek Softclix Lancets lancets albuterol HFA (PROVENTIL HFA,VENTOLIN HFA,PROAIR HFA) 90 mcg/actuation inhaler Inhale 2 puffs every6 (six) hours as needed for wheezing Alcohol Prep Pads pads, medicated ALPRAZolam (XANAX) 1 mg tablet Take 1 tablet (1 mg total) by mouth nightly as needed for anxiety amLODIPine (NORVASC) 10 mg tablet Take 1 tablet (10 mg total) by mouth supervisor ride assembly before breakfast ciclesonide (Alvesco) 80 mcg/actuation inhaler Inhale 1 puff 2 (two) times a day as needed (SOB) cyanocobalamin, vitamin B-12, 5,000 mcg/mL drops Place 5,000 mcg under the tongue supervisor ride assembly before breakfast cyclobenzaprine (FLEXERIL) 10 mg tablet Take 1 tablet (10 mg total) by mouth 2 (two) times a day asneeded for muscle spasms dicyclomine (BENTYL) 20 mg tablet Take 1 tablet (20 mg total) by mouth 2 (two) times a day Farxiga 10 mg tablet Take 1 tablet (10 mg total) by mouth supervisor ride assembly before breakfast fluticasone propionate (FLONASE) 50 mcg/actuation nasal spray Administer 1 spray into each nostril daily as needed for allergies hydroCHLOROthiazide (HYDRODIURIL) 25 mg tablet Take 1 tablet (25 mg total) by mouth supervisor ride assembly before breakfast iron,carb/vit C/vit B12/folic (IRON 100 PLUS ORAL) Take 100 mg by mouth supervisor ride assembly before breakfast metFORMIN (GLUCOPHAGE) 500 mg tablet Take 1 tablet (500 mg total) by mouth 2 (two) times a day withmeals oxygen Administer 2 L/min into each nostril as needed (SOB) potassium chloride ER 20 mEq CR tablet Take 1 tablet (20 mEq total) by mouth every other day sertraline (ZOLOFT) 50 mg tablet Take 1 tablet (50 mg total) by mouth every evening simvastatin (ZOCOR) 20 mg tablet Take 1 tablet (20 mg total) by mouth nightly [DISCONTINUED] oxyCODONE-acetaminophen (PERCOCET) 5-325 mg per tablet TAKE 1 TABLET BY MOUTH EVERY 12 HOURS NEEDED FOR PAIN, SEVERE Implants No active implants to display in this view. 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 : No Have you eaten < 50% of normal in the past 2 weeks without trying?: No Have you experienced any of the following in the past month?: No Symptom Score: 0 Has your activity level decreased over the past 6 months or do you use an assistive device such as a walker, cane, or wheelchair?: Yes Total Score: 1 PATIENT CARE PLANNING Advance Directives (For Healthcare) Have you reviewed your Advance Directive and is it valid for this stay?: No Advance Directive: Patient does not have advance directive, Patient would like information, Information provided Information Provided on Healthcare Directives: Yes Communication/Traffic Counter Needs Communication Needs: Glasses Assistive Devices/DME: Dentures upper, Eyeglasses, Oxygen Hearing - Right Ear: Functional Hearing - Left Ear: Functional Discharge Planning Type of Residence: Private residence Living Arrangements: Spouse/significant other Support Systems: Spouse/significant other, Children Assistance Needed: and daughter to be with pt DOS Patient expects to be discharged to: Private residence [employer] NO ADDITIONAL COMMENTS/ FOLLOW UP * Pre-Procedure Instructions - Rupali Marshall RN - 04/16/2024 10:30 AM CDT CENTER FOR PREOPERATIVE ASSESSMENT AND PLANNING (CPAP) PRE-SURGICAL NURSING INSTRUCTIONS Clinic Assessment General Information Discussed with Patient: Surgery location provided to patient. Arrival time and surgical time will be provided to the patient by their surgeon. You should wear clothing that is clean, loose, comfortable and easy to get in and out of on the dayof surgery. Remove nail coverings, artificial nails and nail maori prior to the day of surgery. This is to lower your risk of infection and to allow the day of surgery team to monitor your oxygen levels. You should leave your valuables and any jewelry at home. No metal or piercings are allowed in the operating room. You should bring your insurance card, a photo ID (example: Chemical Laboratory Technician's License) and a method of payment for any insurance copay, deductible or copay for discharge medications. You should bring a complete, up-to-date, list of all your medications on the day of surgery, including any over the counter medications or supplements you may take. Please note on your medication list, the last date & time you took each medication. The healthcare team, on the day of surgery, will ask for this information. You should bring your Advanced Directive and/or Living Will with you on the day of surgery if you have not verified a copy is already in your Epic Chart. PREVENTING INFECTION (DECOLONIZATION): Decolonization is the use of a topical antiseptic soap and sometimes a nasal ointment to remove bacteria (germs) from the skin's surface. Antiseptic soap: Chlorhexidine gluconate or CHG (brand name: Hibiclens??) Before surgery, your entire body must be thoroughly cleaned. CHG helps to reduce the bacteria on your skin. You may be given one or more bottles of CHG or you may be asked to obtain from your preferred pharmacy. Be sure to ask your pharmacist if you need help finding this product. SHOWERING WITH ANTISEPTIC SOAP (CHG) What You Need For Each Shower 60 mL (?? cup) of CHG 2 clean washcloths Below is the Pre-Surgical Bathing Protocol you should follow for your surgery. If your surgeon provides you different bathing instructions, please follow your surgeon's orders. 2 Day CHG Bathing Protocol (no nasal ointment) The following bathing instructions were discussed with the patient. Patient provided detailed scrubinstructions via A Guide for Patients Having Surgery: Your Pathway to Excellent Care, pages 7-10. Patients may also access the guide via the web link: [email or web address]. Patient stated understanding of the bathing instructions. Other Important Handouts/Education Discussed with Patient: Guide for Patients Having Surgery: Your Pathway to Excellent Care. Reviewed and provided document to patient. Patient stated understanding. Advanced Directive. Reviewed and provided document to patient. Patient stated understanding. Nutrition Education Handout, Fuel Up For Surgery. Reviewed and provided document to patient. Patient stated understanding. Travel/Exposure Screening: Travel Screening Have you traveled outside the [place] in the last 6 months?: No Exposure Screening Have you been exposed to anyone who is sick in the last 30 days?: No Have you been exposed to or tested positive for COVID-19 within the last 10 days?: No Infectious Disease Screening Are you having any of the following:: None As of 06/05/2022 any COVID TESTING required for surgery will be set up by your surgeon's office. Please reach out to your surgeon's office if you develop any COVID symptoms, test positive for COVID or are exposed to a COVID positive person. All patients should read below section: Information on [facility]: Please view [email or web address] (Patient & Visitor Information) for additional details regarding Advanced Directive forms, AWARE, directions, parking information, lodging, Internet access, dining and more. For MyChart information, to activate account or password recovery, please go to [email or web address] or call [phone] (toll-free: [phone]), Sat- Saturday 8am-5pm. Information for Suicide Prevention: National Suicide Prevention Lifeline (1-774-238-TALK (8522)) orcall or text 944. Chat resources: [email or web address]org. Surgery Times: For patients having surgery @ [facility] or [facility] ([facility]), if your surgeon's office has not notified you of your surgery time by NOON THE BUSINESS DAY BEFORE your surgery, please call [phone] and ask for your surgeon's office Dr. Vasquez The Center for Preoperative Assessment & Planning (CPAP) does not provide arrival times for theday of surgery or provide the duration of surgery. This information is provided by your surgeon's office or by the center where you are having surgery. We appreciate your understanding. * Pre-Procedure Instructions - Dayami Brito NP - 04/16/2024 10:30 AM CDT Center for Preoperative Assessment and Planning CPAP Clinic Location: [facility] The night before your surgery: * Do not eat anything after midnight the night before your procedure. The morning of your surgery: * You may have clear liquids on your surgery day. You must stop drinking two hours before you arrive to the surgery facility. Acceptable clear liquids include water, clear sports drinks, black coffee, tea, or clear soda. DO NOT drink any milk, creamer, or alcohol. * Your surgeon's office may have provided additional instructions or restrictions. Please follow those instructions. * You may brush your teeth and rinse your mouth out. * Do not glue your dentures. * Do not wear jewelry, body piercings, makeup, hairpins, false eyelashes or contact lenses to the hospital. * Leave any valuables at home or with your family. * If you use home oxygen, bring your portable oxygen tank with you on the day of surgery * If having surgery at [facility], you may want to bring a credit card if you want to use our Mobile Pharmacy for your discharge medications. Mobile pharmacy is not available at [facility], the Orthopedic Center, or the [facility]. If you have Sleep Apnea (BETTY): * Bring your CPAP/BiPAP/VPAP machine to the hospital the day of your surgery * For a few days after your surgery, you will need to wear your CPAP/ BiPAP/VPAP machine any time your are sleeping. This includes when you take a nap. If you have Diabetes: * If your blood sugar is low before you come to the hospital, drink a small amount of sugar water or clear juice like apple or cranberry juice. DO NOT drink orange or pineapple juice. These are not clear liquids. * Please call your surgeon and/or the CPAP Clinic if you have any questions. Instructions For Your Medications: Pre-Surgery Instructions: Medication Instructions albuterol HFA (PROVENTIL HFA,VENTOLIN HFA,PROAIR HFA) 90 mcg/actuation inhaler Take on day of surgery if needed ALPRAZolam (XANAX) 1 mg tablet Take the evening prior to surgery if needed amLODIPine (NORVASC) 10 mg tablet Take morning of surgery ciclesonide (Alvesco) 80 mcg/actuation inhaler Take morning of surgery cyanocobalamin, vitamin B-12, 5,000 mcg/mL drops Don't take on day of surgery cyclobenzaprine (FLEXERIL) 10 mg tablet Take on day of surgery if needed dicyclomine (BENTYL) 20 mg tablet Take on day of surgery if needed Farxiga 10 mg tablet Stop taking 4 days prior to surgery fluticasone propionate (FLONASE) 50 mcg/actuation nasal spray Don't take on day of surgery hydroCHLOROthiazide (HYDRODIURIL) 25 mg tablet Don't take on day of surgery iron,carb/vit C/vit B12/folic (IRON 100 PLUS ORAL) Don't take on day of surgery metFORMIN (GLUCOPHAGE) 500 mg tablet Don't take on day of surgery potassium chloride ER 20 mEq CR tablet Don't take on day of surgery sertraline (ZOLOFT) 50 mg tablet Take the evening prior to surgery simvastatin (ZOCOR) 20 mg tablet Take the evening prior to surgery budesonide-formoteroL (SYMBICORT) 160-4.5 mcg/actuation inhaler Take morning of surgery General Instructions For Medications: * Stop all of these medications 5 days prior to your surgery: excedrin, motrin, advil, ibuprofen, aleve, naproxen, meloxicam, celebrex, celecoxib. For medications that you are instructed to take on the morning of surgery, take the medications with a few sips of water. Stop all of these medications 7-14 days prior to your surgery: Vitamin E, Herbal medicines, Diet Pills If you use inhalers, please bring them with you on the day of your procedure. If you have pain, you may take tylenol (acetaminophen). Do not take more than 6 tablets or 3000 mg (3 g) within a 24 period. Call your surgeon and the CPAP clinic if any of the following happens before surgery: Any changes in your health You have a fever You have any signs of an infection (chest, urinary tract or tooth) You have been to the Emergency Room or were in the hospital You have started taking any new medications If laboratory testing was completed during your visit, we will only contact you regarding any results that require you to take additional action prior to your planned procedure. documented in this encounter Plan of Treatment [...] stairs Contact your local community or senior [place] for information on exercise, fall prevention programs, or options for improving home safety. documented as of this encounter Procedures Procedure Name Priority Date/Time Associated Diagnosis Comments TYPE AND SCREEN 14 DAY Routine 12:00 PM CDT Preoperative testing EGFR Routine 04/16/2024 12:00 PM CDT Preoperative testing DIFFERENTIAL AUTO Routine 04/16/2024 12: 00 PM CDT Preoperative testing CBC WITH AUTO DIFFERENTIAL Routine 04/16/2024 12:00 PM CDT Preoperative testing COMPREHENSIVE METABOLIC PANEL Routine 04/16/2024 12:00 PM CDT Preoperative testing POCT HEMOGLOBIN A1C Routine 04/16/2024 1 1:22 AM CDT documented in this encounter Results * eGFR (04/16/2024 12:00 PM CDT) eGFR 77 >=60 mL/min/1. 73 m2 Comment: Interpretive Data [...] interpretive data was last reviewed 2021. Blood 04/16/2024 12:0 0 PM CDT 04/16/2024 1:27 PM CDT us Dayami Brito NP LAB BLOOD ORDERABLES Final Result JASMIN AREVALO [facility] [place] [address] * Differential, auto (04/16/2024 12:00 PM CDT) Pathologist [facility] Neutrophil abs 3.8 1.5 - 6.5 K/cumm Imm gran abs 0.0 0.0 - 0.1 K/cumm [facility] Lymphocyte abs 1.6 0.8 - 3.3 K/cumm [facility] Monocyte abs 0.4 0.2 - 0.8 K/cumm [facility] Eosinophil abs 0.1 0.0 - 0.5 K/cumm [facility] Basophil abs 0.0 0.0 - 0.1 K/cumm [facility] Neutrophil pct 64.4 % [facility] Comment: Interpretive Data Percent cell count reference ranges are not reported, since discordance with absolute values may lead to misinterpretation of CBC data. Current Interpretive Data was last revised on 2017. Imm gran pct 0.5 % [facility] Comment: Interpretive Data Percent cell count reference ranges are not reported, since discordance with absolute values may lead to misinterpretation of CBC data. Current Interpretive Data was last revised on 2017. Lymphocyte pct 26.2 % [facility] Comment: Interpretive Data Percent cell count reference ranges are not reported, since discordance with absolute values may lead to misinterpretation of CBC data. Current Interpretive Data was last revised on 2017. Monocyte pct 6.4 % [facility] Comment: Interpretive Data Percent cell count reference ranges are not reported, since discordance with absolute values may lead to misinterpretation of CBC data. Current Interpretive Data was last revised on 2017. Eosinophil pct 2.0 % [facility] Comment: Interpretive Data Percent cell count reference ranges are not reported, since discordance with absolute values may lead to misinterpretation of CBC data. Current Interpretive Data was last revised on 2017. Basophil pct 0.5 % [facility] Comment: Interpretive Data Percent cell count reference ranges are not reported, since discordance with absolute values may lead to misinterpretation of CBC data. Current Interpretive Data was last revised on 2017. Blood 04/16/2024 12:0 0 PM CDT 04/16/2024 1:27 PM CDT Dayami Brito NP LAB BLOOD ORDERABLES Final Result [facility] Department [place] [address] * (ABNORMAL) Comprehensive metabolic panel (04/16/2024 12:00 PM CDT) Sodium 141 135 - 145 mmol/L Potassium, pl 4.2 3.3 - 4.9 mmol/L [facility] Chloride 99 97 - 110 mmol/L [facility] CO2 29 22 - 32 mmol/L [facility] Anion gap 13 2 - 15 mmol/L [facility] BUN 14 6 - 25 mg/dL [facility] Creatinine 0.82 0.60 - 1.10 mg/dL [facility] Glucose 95 70 - 199 mg/dL [facility] Comment: Interpretive Data Fasting glucose >/= 126 [...] interpretive data was last revised 2022. Calcium 10.6(H) 8.5 - 10.3 mg/dL [facility] Bilirubin, total 0.3 0.1 - 1.2 mg/dL [facility] Protein, pl 8.9(H) 6.5 - 8.5 g/dL [facility] Albumin 5.3(H) 3.5 - 5.0 g/dL [facility] Alk phos 89 40 - 130 Units/L [facility] ALT 37 7 - 45 Units/L [facility] AST 32 10 - 45 Units/L [facility] Blood 04/16/2024 12:0 0 PM CDT 04/16/2024 1:27 PM CDT Dayami Brito NP LAB BLOOD ORDERABLES Final Result [facility] Department [place] [address] * TYPE AND SCREEN 14 DAY (04/16/2024 12:00 PM CDT) [facility] ABO Rh B Positive Katherine, indirect Negative [facility] Blood 04/16/2024 12:0 0 PM CDT 04/16/2024 1:37 PM CDT Narrative [facility] - 04/16/2024 2:32 PM CDT Is this test being ordered in advance for a procedure?->Yes Expected date of procedure:->05/11/24 Has the patient been transfused in the past 3 months?->No Has the patient been in the past 3 months?->No Dayami Brito NP LAB BLOOD BANK TEST ORDERAB LES Final Result [facility] Department [place] [address] * CBC with auto differential (04/16/2024 12:00 PM CDT) [facility] WBC 5.9 3.8 - 9.9 K/cumm Hgb 13.3 11.9 - 15.5 g/dL [facility] Hct 40.7 35.6 - 45.5 % [facility] Plt 269 150 - 400 K/cumm [facility] MPV 9.6 9.1 - 12.3 fL [facility] RBC 4.80 3.90 - 5.20 M/cumm [facility] MCV 84.8 81.3 - 96.4 fL [facility] MCH 27.7 27.1 - 33.3 pg [facility] MCHC 32.7 32.3 - 35.7 g/dL [facility] RDW CV 14.1 11.1 - 14.9 % [facility] RDW SD 43.3 35.7 - 48.1 fL [facility] NRBC abs 0.00 0.00 - 0.01 K/cumm [facility] Blood 04/16/2024 12:0 0 PM CDT 04/16/2024 1:27 PM CDT Dayami Brito NP LAB BLOOD ORDERABLES Final Result Performing Organization Address [facility] Co de Phone Number [facility] Department [place] [address] * (ABNORMAL) POCT hemoglobin A1c (04/16/2024 11:22 AM CDT) Hgb A1C, POC 6.5(H) 4.0 - 5.6 % Est Average Gluc POC 140 mg/dL [facility] Comment: The ADA recommends reporting an estimated Average Glucose (eAG) with all Hemoglobin A1c results using the equation derived from a study of 507 normal and diabetic adults. ??Minority populations were underrepresented and children were not included. ?? (Diabetes Care 31:9020-8259, 2008). ??The eAG is not equivalent to a fasting glucose. Blood 04/16/2024 11:2 2 AM CDT 04/16/2024 11:22 AM CDT Sabino Luke MD POINT OF CARE TEST ORDER PHILIPP Final Result Performing Organization Address [facility] de Phone Number [facility] Department [place] [address] documented in this encounter Visit Diagnoses Diagnosis Preoperative testing- Primary Unspecified pre-operative examination documented in this encounter Discontinued Medications Medication Sig Discontinue Reason Start Date End Da te escitalopram (Lexapro) 10 mg tabletIndications:Anxiety with Depression Take 1 tablet (10 mg total) by mouth Alternate therapy 04/16/2024 losartan (COZAAR) 100 mg tabletIndications:hyperte nsion Take 1 tablet (100 mg total) by mouth daily Therapy completed 04/16/2024 meloxicam (MOBIC) 15 mg tablet meloxicam 15 mg tablet TAKE 1 TABLET BY MOUTH EVERY DAY Therapy completed 04/16/2024 metaxalone (Skelaxin) 800 mg tablet Take 1 tablet 3 times a day by oral route. Therapy completed 04/16/2024 methylPREDNISolone acetate (DEPO-MedroL) 80 mg/mL injection Therapy completed 04/16/2024 montelukast (SINGULAIR) 10 mg tablet Therapy completed 04/16/2024 naloxone (NARCAN) 4 mg/actuation spray,non-aerosol 1 spray Therapy completed 04/16/2024 omeprazole (PriLOSEC) 40 mg capsule Take 1 capsule (40 mg total) by mouth daily Therapy completed 04/16/2024 ondansetron ODT (ZOFRAN-ODT) 4 mg disintegrating tablet DISSOLVE 1 TABLET BY MOUTH EVERY 8 HOURS NEEDED FOR NAUSEA AND VOMITING Therapy completed 04/16/2024 oxyCODONE-acetaminophen (PERCOCET) 5-325 mg per tablet TAKE 1 TABLET BY MOUTH EVERY 12 HOURS NEEDED FOR PAIN, SEVERE Therapy completed 02/18/2024 04/16/2024 pancrelipase (Creon) 12,000 units of lipase capsule TAKE 1 CAPSULE BY MOUTH 3 TIMES DAILY WITH MEALS. Therapy completed 04/16/2024 SITagliptin phosphate (Januvia) 100 mg tablet Take 1 tablet every day by oral route in the morning for 30 days. Therapy completed 04/16/2024 documented as of this encounter Historical Medications * This list may reflect changes made after this encounter. oxygenIndications:D yspnea Administer 2 L/min into each nostril as needed (SOB) Accu-Chek Softclix Lancets lancets 04/06/2024 Accu-Chek Guide test strips strip 04/13/2024 Alcohol Prep Pads pads, medicated 03/30/2024 cyclobenzaprine (FLEXERIL) 10 mg tabletIndications:M uscle Spasm Take 1 tablet (10 mg total) by mouth 2 (two) times a day as needed for muscle spasms 4 dicyclomine (BENTYL) 20 mg tabletIndications:A bdominal Pain with Cramps Take 1 tablet (20 mg total) by mouth 2 (two) times a day 02/06/2024 4 escitalopram (Lexapro) 10 mg tabletIndications:A nxiety with Depression Take 1 tablet (10 mg total) by mouth 4 hydrOXYzine (ATARAX) 25 mg tablet Take 1 tablet 4 times a day by oral route. 4 pancrelipase (Creon) 12,000 units of lipase capsule TAKE 1 CAPSULE BY MOUTH 3 TIMES DAILY WITH MEALS. 4 losartan (COZAAR) 100 mg tabletIndications:h ypertension Take 1 tablet (100 mg total) by mouth daily 4 meloxicam (MOBIC) 15 mg tablet meloxicam 15 mg tablet TAKE 1 TABLET BY MOUTH EVERY DAY 4 metaxalone (Skelaxin) 800 mg tablet Take 1 tablet 3 times a day by oral route. 4 methylPREDNISolone acetate (DEPO-MedroL) 80 mg/mL injection 4 montelukast (SINGULAIR) 10 mg tablet 4 naloxone (NARCAN) 4 mg/actuation spray,non-aerosol 1 spray 02 4 omeprazole (PriLOSEC) 40 mg capsule Take 1 capsule (40 mg total) by mouth daily 4 ondansetron ODT (ZOFRAN-ODT) 4 mg disintegrating tablet DISSOLVE 1 TABLET BY MOUTH EVERY 8 HOURS NEEDED FOR NAUSEA AND VOMITING 4 oxyCODONE-acetamino phen (PERCOCET) 5-325 mg per tablet TAKE 1 TABLET BY MOUTH EVERY 12 HOURS NEEDED FOR PAIN, SEVERE 02/18/2024 4 SITagliptin phosphate (Januvia) 100 mg tablet Take 1 tablet every day by oral route in the morning for 30 days. 4 added in this encounter Care Teams Poker Supervisor Relationship Specialty Start Date End Date Rosibel Muse MD [facility] [place] [address] PCP - General Family Medicine 03/22/23 05/11/24 Sabino Luke MD [address] [place] [address] Referring Physician General Surgery 12/06/23 documented as of this encounter
--- OUTSIDE RECORDS SUMMARY | 2024-08-17 08:47 | XMS_ITS | Encounter Summary ---
Author Organization [facility] Address [address] [place] [address] Phone Care Team Providers Care Wireless Sales Expert Name Role Phone Rosibel Muse MD Primary Care Provider [phone] Sabino Luke MD Unavailable [phone] Reason for Visit * Consultation (Routine) - Closed Specialty Diagnoses / Procedures Referred By Contac t Referred To Contact Minimally Invasive Surgery Diagnoses Incisional hernia, without obstruction or gangrene Rosibel Muse MD [address] [place] [address] Phone: tel: fax: Sabino Luke MD [address] [place] [address] Phone: tel: fax: Referral ID Status Reason Start Date Expiration Date V isits Requested Visits Authorized [id number] Closed Specialty Services Required 09/12/2023 10/11/2024 1 1 Encounter Details Date Type Department Care Team (Late st Contact Info) Description 01/17/2024 9:00 AM CDT Office Visit [facility] ([facility]) - [facility] Minimally Invasive Surgery [address] [facility] 12th Floor, [place] [id number] Sabino Luke MD [address] [place] [address] Incisional hernia, without obstruction or gangrene (Primary Dx); Ampullary carcinoma (HCC); Chronic obstructive pulmonary disease, unspecified COPD type (HCC) Social History Tobacco Use Types Packs/Day Years Used Date Smoking Tobacco: Former Smokeless Tobacco: Never Tobacco Cessation:Counseling Given: Not Answered Alcohol Use Standard Drinks/Week Comments No 0 (1 standard drink = 0.6 oz pur e alcohol) Personal Safety Answer Date Recorded Getting School Help Needed Not on file 07/26 Comments No Sex and Gender Information Value Date Recorded Sex Assigned at Not on file 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 Gender Identity Not on file Sexual Orientation Not on file Occupation Industry Job Start Date Job End Date Disability Not on file Not on file Not on file documented as of this encounter Last Filed Vital Signs Vital Sign Reading Time Taken Comments Blood Pressure 122/78 01/17/2024 8:51 AM CDT Pulse 81 01/17/2024 8:51 AM CDT Temperature 36.7 ??C (98.1 ??F) 01/17/2024 8:51 AM CD T Respiratory Rate - - Oxygen Saturation - - Inhaled Oxygen Concentration - - Weight 71.7 kg (158 lb) 01/17/2024 8:51 AM CDT Height 157.5 cm (5' 2 ) 01/17/2024 8:51 AM CDT Body Mass Index 28.9 01/17/2024 8:51 AM CDT documented in this encounter Patient Instructions * Patient Instructions* Sabino Luke MD - 01/17/2024 9:00 AM CDT Scheduling surgery: You should expect a call from our office in the next 5-7 business days to schedule your operation.If you do not hear from us in that time please call us at [phone]. If your case is to be performed in combination with another surgeon this may take some increased time to coordinate. Anesthesia Evaluation (CPAP): You will receive information on your pre-admission anesthesia visit when we schedule your surgery. This will ideally occur 3-4 weeks before your surgery date. New / Worsening symptoms: If you have any acute problems between now and your surgery date such as worsening pain, vomiting or other concerns do not hesitate to contact our office. If it is an emergency, please call 911, or proceed to your nearest emergency room. documented in this encounter Progress Notes * Sabino Luke MD - 01/17/2024 9:00 AM CDT Images from the original note were not included. [facility] Minimally Invasive Surgery Established Patient Krissy Oneal : 1955 REFERRING PHYSICIAN - Rosibel Muse MD PCP - Rosibel Muse MD Reason for Visit: incisional ventral hernia Date of last visit: Jul 12 HPI: Krissy Oneal is a 68 y.o. female who is returning for follow-up of incisional ventral hernia after Whipple for pancreatic cancer in 2021. Last seen in clinic 07/13/23 at which time she was only mildly symptomatic. Moreover, a new metastatic lesion was identified on her liver and she was scheduled to undergo radiation. The plan was to wait for her outcomes from the treatment of her metastatic pancreatic cancer and determine further management from there. She returns today for ongoing follow-up of her large ventral incisional hernia. She completed SBRT treatment to the liver in August 2023. She last saw her oncologist 11/26/23. He suggested maintenance chemotherapy with 5-FU based regimenbut patient refused additional chemotherapy. She will have surveillance imaging in February. With regard to her hernia, she believes it has grown it size. It still causes her mild discomfort, with more focal pain at her umbilicus. It significantly limits her daily activities. She notes that it occasionally get hard but she denies any obstructive episodes. She is eating and drinking without nausea or vomiting and she is moving her bowels regularly. Physical Exam: Vitals BP 122/78 Pulse 81 Temp 36.7 ??C (98.1 ??F) Ht 157.5 cm (5' 2 ) Wt 71.7 kg (158 lb) BMI 28.90 kg/m?? GENERAL: No acute distress. NEURO: Alert and oriented x3, mood and affect appropriate. HEENT: Pupils equal. EOMs grossly normal. PULMONARY: Breathing comfortably on room air. CARDIO: Regular rate and rhythm. SKIN: Smooth and dry, no rash GI: soft, nontender, large ventral hernia, well-healed midline incision MUSCULOSKELETAL: Grossly normal range of motion. EXTREMITIES: Warm, well perfused. Assessment/Plan: 68 y.o. female with history of metastatic pancreatic cancer s/p neoadjuvant chemotherapy, Whipple, SBRT presenting for evaluation of large ventral incisional hernia. The patient very much wishes to have her hernia repaired. We will tentatively plan to move forward with surgery in the next few months. We will wait for the results of her surveillance imaging in February before finalizing a date. If thescan shows no evidence of disease progression, we will have her come back to the office for a more in depth discussion of the risks and benefits of what will be an open ventral hernia repair with abdominal reconstruction. We will have her see CPAP at that time as well. Patient and her expressed understanding. Steph [place] MD, MPH TEACHING ATTESTATION I have seen and examined the patient along with the resident and agree with their note and plan as documented above. Briefly, patient is a 68 y.o. female presenting for evaluation of a large abdominal wall hernia. Ather last visit she was pending additional oncology treatment. At this point she reports she is no longer undergoing therapy. She does have a pending CT scan in February. I think this will be critical to determine whether we should proceed with hernia repair and to understand her current disease state. From a hernia standpoint I think she would certainly require an open incisional hernia repair with abdominal wall reconstruction. We will work on tentatively setting hernia surgery date for this fall pending the results of her CT scan. Risks / benefits / alternatives to surgery were discussed with the patient and their family. The risks of the surgery discussed included but weren't limited to bleeding, infection, potential injury to surrounding structures and bowel, planned use of mesh, hernia recurrence, post-operative pain and anesthesia associated complications. She was given the opportunity to ask any questions and they were all answered. She is in agreement with the plan. Sabino Luke MD Minimally Invasive GI Surgery & Abdominal Wall Reconstruction geoscience technician [facility] [phone] * Sabino Luke MD - 01/17/2024 9:00 AM CDT Images from the original note were not included. [facility] Surgical Plan Form Minimally Invasive Surgery January White 1955 [id number] Surgeon: Ti Clinton: [x] PVT (POD 1) [] [facility] [] CAM (POD 4) [] [facility] [] [facility] (BMI <45) Patient class: [x] Outpatient In Bed [] Outpatient [] Surgery Admit [] Inpatient Postop Destination: [] Outpatient [x] Floor [] ICU Section I: Completed by the Surgeon Type: [x] Open [] Robotic [] Laparoscopic [] Endoscopic Laterality: [] Left [] Right [] Bilateral [x] N/A Anesthesia: [x] General [] MAC [] Consult [] Local Primary Procedure: Open incisional hernia ([id number]) and Abdominal wall reconstruction Secondary Surgeon / Procedure: N/A Diagnosis / CPT: Initial, >10 cm, incarcerated - 62030 and Open component separation - 85361 Postop Pain Request: None Case classification: [x] Elective [] Urgent [] Emergent Pre-op visit required: [x] PAT / CPAP BMI Goal Prior to Scheduling? [x] No [] Yes <40 [] Yes <35 Smoking Cessation? [x] No [] Yes - call 30d prior [] Yes - nicotine test Anticoagulation Clearance? No Medical Needs: None Research Case: [x] No [] Yes Radiology Needed? 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 amLODIPine (NORVASC) 10 mg tabletIndication s:hypertension Take 1 tablet (10 mg total) by mouth early learning teacher before breakfast 12/12/2023 4 Farxiga 10 mg tabletIndication s:type 2 diabetes mellitus Take 1 tablet (10 mg total) by mouth early learning teacher before breakfast 12/12/2023 4 added in this encounter Orders Outpatient Referral Count Last Ordered Date Fir st Ordered Date AMB REFERRAL TO MINIMALLY INVASIVE SURGERY 1 01/17/2024 documented in this encounter Care Teams Wireless Sales Expert Relationship Specialty Start Date End Date Rosibel Muse MD [address] [place] [address] PCP - General Family Medicine 03/22/23 05/11/24 Sabino Luke MD [address] [place] [address] Referring Physician General Surgery 12/06/23 documented as of this encounter
--- OUTSIDE RECORDS SUMMARY | 2024-08-17 08:47 | XMS_ITS | Encounter Summary ---
Author Organization [facility] Healthcare Address [address] [place] [address] Care Team Providers Care Test Preparation Tutor Name Role Phone No, Physician Primary Care Provider [phone] Reason for Referral * Diagnostic Imaging (Routine) - Closed Specialty Diagnoses / Procedures Referred By Contac t Referred To Contact Diagnoses Spinal stenosis of lumbar region without neurogenic claudication Left lumbar radiculitis Procedures Imaging Lumbar/Sacral Selective Nerve Root INJ (TFE) Left ([address]) [place] [address] [place] [address] Phone: tel: fax: [facility] [address] [address] Phone: tel: fax: Referral ID Status Reason Start Date Expiration Date Visits Re quested Visits Authorized [id number] Closed 01/23/2023 02/22/2024 1 1 Reason for Visit * Reason Comments Follow-up Encounter Details Date Type Department Care Team (Latest Contact Info) Description 01/23/2023 8:57 AM CDT - 01/23/2023 11:59 PM CDT Hospital Encounter [facility] [place] [id number] [place] [phone] [place] [address] [place] [address] Spinal stenosis of lumbar region without neurogenic claudication (Primary Dx); Left lumbar radiculitis Discharge Disposition: Discharge to home or self care Social History Tobacco Use Types Packs/Day Years Used Date Smoking Tobacco: Former Smokeless Tobacco: Never Alcohol Use Standard Drinks/Week Comments No 0 (1 standard drink = 0.6 oz pur e alcohol) Comments No Sex and Gender Information Value Date Recorded Sex Assigned at Not on file 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 Gender Identity Not on file Sexual Orientation Not on file Occupation Industry Job Start Date Job End Date Disability Not on file Not on file Not on file documented as of this encounter Last Filed Vital Signs Vital Sign Reading Time Taken Comments Blood Pressure 136/85 01/23/2023 9:15 AM CDT Pulse 75 01/23/2023 9:15 AM CDT Temperature - - Respiratory Rate 18 01/23/2023 9:15 AM CDT Oxygen Saturation 100% 01/23/2023 9:15 AM CDT Inhaled Oxygen Concentration - - Weight - - Height - - Body Mass Index - - documented in this encounter Medications at Time of Discharge ALPRAZolam (XANAX) 1 mg tabletIndication s:anxiety Take 1 tablet (1 mg total) by mouth nightly as needed for anxiety 4 fluticasone propionate (FLONASE) 50 mcg/actuation nasal sprayIndications :Allergic Rhinitis Administer 1 spray into each nostril daily as needed for allergies 4 hydroCHLOROthiaz herman (HYDRODIURIL) 25 mg tabletIndication s:hypertension Take 1 tablet (25 mg total) by mouth 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 4 potassium chloride ER 20 mEq CR tabletIndication s:supplement Take 1 tablet (20 mEq total) by mouth every other day 01/08/2023 4 sertraline (ZOLOFT) 50 mg tabletIndication s:Anxiety with Depression Take 1 tablet (50 mg total) by mouth every evening 4 simvastatin (ZOCOR) 20 mg tabletIndication s:hyperlipidemia Take 1 tablet (20 mg total) by mouth nightly 05/08/2018 4 albuterol (PROVENTIL,MISHEL JANETT) 2.5 mg /3 mL (0.083 %) nebulizer solution Take 3 mL (2.5 mg total) by nebulization every 6 (six) hours as needed for wheezing 3 amLODIPine (NORVASC) 5 mg tablet 05/16/2018 4 budesonide-formo teroL (SYMBICORT) 160-4.5 mcg/actuation inhalerIndicatio ns:Acute Asthma Attack Inhale 2 puffs 2 (two) times a day as needed (SOB) 4 ciclesonide (Alvesco) 80 mcg/actuation inhalerIndicatio ns:Maintenance Therapy for Asthma Inhale 1 puff 2 (two) times a day as needed (SOB) 01/07/2014 4 cyclobenzaprine (FLEXERIL) 10 mg tablet 04/04/2018 3 doxycycline (doxycycline hyclate) 100 mg capsule doxycycline hyclate 100 mg capsule TAKE 1 CAPSULE BY MOUTH TWICE A DAY 3 hydrOXYzine (ATARAX) 25 mg tablet Atarax 25 mg tablet Take 1 tablet 4 times a day by oral route. 3 ibuprofen (ADVIL,MOTRIN) 800 mg tabletIndication s:Anti-inflammat ory Take 1 tablet (800 mg total) by mouth every 6 (six) hours as needed for pain 3 losartan (COZAAR) 100 mg tablet Take 1 tablet (100 mg total) by mouth daily 12/02/2022 3 meloxicam (MOBIC) 15 mg tablet Take 1 tablet (15 mg total) by mouth daily 12/11/2022 3 pancrelipase (Creon) 12,000 units of lipase capsule Creon 12,000-38,000-60,0 00 unit capsule,delayed release TAKE 1 CAPSULE BY MOUTH 3 TIMES DAILY WITH MEALS. 3 quinapril (ACCUPRIL) 40 mg tablet Take 40 mg by mouth 2 (two) times a day. 3 documented as of this encounter Discharge Disposition Disposition Code Departure Means Destination Discharge to home or self care documented in this encounter Progress Notes * Kin Schafer, MILITARY EXCHANGE WIRELESS MANAGER - 01/23/2023 9:30 AM CDT Patient Name: Krissy Oneal : 1955 Today's Date: 01/23/2023 PCP: Bina, Physician Referring: Erasmo Luna* Chief Complaint Patient presents with Follow-up HPI Patient presents complaints of lower back pain. Pain described as deep and achy and stiff. She is following up regarding recent lumbar epidural injection which provided proximally 35% improvement with her lower back and lower extremity pain. She still has significant problems with standing or walking for a limited period of time. With this restrictions in activity of daily living she is seeking additional help to improve her overall function and mobility. She denies motor weakness or alterationbladder/bowel control. Allergies Allergen Reactions Iv Contrast Dye [Iodinated Contrast Media] Itching Amoxicillin Unknown Macrolide Antibiotics Unknown Naproxen Sodium Unknown Penicillins Unknown Kiwi Itching Nitrofurantoin Itching Itching Sulfadiazine Dizziness Past Medical History: Diagnosis Date Anxiety Asthma Cervical stenosis (uterine cervix) Chronic kidney disease Depression Ear problems Gastric reflux Hypertension Kidney infection Lumbar stenosis Past Surgical History: Procedure Laterality Date CERVICAL SPINE SURGERY HYSTERECTOMY SINUS SURGERY Social History Tobacco Use Smoking status: Former Smokeless tobacco: Never Substance and Sexual Activity Drug use: No Sexual activity: None Alcohol Use: Not on file Family History Problem Relation Age of Onset Cancer Father Cancer Brother HOME MEDICATIONS : albuterol (PROVENTIL,VENTOLIN) 2.5 mg /3 mL (0.083 %) nebulizer solution ALPRAZolam (XANAX) 1 mg tablet amLODIPine (NORVASC) 5 mg tablet budesonide-formoteroL (SYMBICORT) 160-4.5 mcg/actuation inhaler ciclesonide (Alvesco) 80 mcg/actuation inhaler cyclobenzaprine (FLEXERIL) 10 mg tablet doxycycline (doxycycline hyclate) 100 mg capsule fluticasone propionate (FLONASE) 50 mcg/actuation nasal spray hydroCHLOROthiazide (HYDRODIURIL) 25 mg tablet hydrOXYzine (ATARAX) 25 mg tablet losartan (COZAAR) 100 mg tablet pancrelipase (Creon) 12,000 units of lipase capsule sertraline (ZOLOFT) 50 mg tablet simvastatin (ZOCOR) 20 mg tablet ibuprofen (ADVIL,MOTRIN) 800 mg tablet meloxicam (MOBIC) 15 mg tablet quinapril (ACCUPRIL) 40 mg tablet Review of Systems Review of Systems Constitutional: Negative. HENT: Negative for congestion, ear pain, sinus pressure, sinus pain and sore throat. Eyes: Negative for pain and visual disturbance. Respiratory: Negative for cough, chest tightness, shortness of breath and wheezing. Cardiovascular: Negative for chest pain, palpitations and leg swelling. Gastrointestinal: Negative for abdominal pain, blood in stool, constipation, diarrhea, nausea and vomiting. Endocrine: Negative for cold intolerance, heat intolerance, polydipsia, polyphagia and polyuria. Genitourinary: Negative for difficulty urinating, dysuria, frequency, hematuria and pelvic pain. Musculoskeletal: Positive for arthralgias and back pain. Skin: Negative. Neurological: Positive for numbness. Negative for dizziness, syncope, weakness, light-headedness and headaches. Hematological: Negative. Psychiatric/Behavioral: Negative. Physical Exam Vitals: 01/23/23 0915 BP: 136/85 Pulse: 75 Resp: 18 SpO2: 100% There is no height or weight on file to calculate BMI. Physical Exam Vitals and nursing note reviewed. Constitutional: General: She is not in acute distress. Appearance: Normal appearance. She is well-developed. She is not diaphoretic. HENT: Head: Normocephalic and atraumatic. Eyes: Conjunctiva/sclera: Conjunctivae normal. Musculoskeletal: General: No tenderness or deformity. Right lower leg: No edema. Left lower leg: No edema. Skin: General: Skin is warm and dry. Neurological: General: No focal deficit present. Mental Status: She is alert and oriented to person, place, and time. Sensory: No sensory deficit. Motor: No weakness or abnormal muscle tone. Coordination: Coordination normal. Deep Tendon Reflexes: Reflexes normal. Psychiatric: Mood and Affect: Mood normal. Behavior: Behavior normal. Thought Content: Thought content normal. Judgment: Judgment normal. Review of Data: Clinical evaluation forms were reviewed including the PEG Scale Assessing Pain Intensity and Interference with score of 4 Assessment Problem List Neuro Spinal stenosis of lumbar region without neurogenic claudication - Primary Relevant Orders Imaging Lumbar/Sacral Selective Nerve Root INJ (TFE) Left (04936) Ambulatory referral order to Physical Therapy - Left lumbar radiculitis Relevant Orders Imaging Lumbar/Sacral Selective Nerve Root INJ (TFE) Left (52575) Ambulatory referral order to Physical Therapy - Plan Pre-hypertension/Hypertension: The patient has been informed that they may have pre-hypertension orhypertension based on a blood pressure reading in the office today. I recommend that the patient call their primary care provider or a physician of their choice this week to arrange follow up for further evaluation of possible pre-hypertension or hypertension. I have also recommended that they try weight loss and exercise for management. Presentation consistent with lumbar radiculitis. She did note bear improvement with recent interlaminar lumbar epidural approach. With her continued condition which affects her activities of daily living, her desire to avoid lumbar spine surgery we suggested re engaging in her at home exercise and provided her with a physical therapy prescription. In addition we will proceed with left L4/L5 lumbar transforaminal injection where she has significant foraminal stenosis which likely contributes to her pain. Plan discussed with patient and she wishes to proceed. This dictation was performed using M*Modal dictation. There may be some laminating machine operator helper variances which are not appreciated or corrected in this note. documented in this encounter Miscellaneous Notes * Addendum Note - Kin Schafer NP - 01/23/2023 9:30 AM CDTEncounter addended by: Kin Schafer NP on: 01/23/2023 10:24 AM Actions taken: Clinical Note Signed documented in this encounter Plan of Treatment [...] on stairs Contact your local community or [facility] for information on exercise, fall prevention programs, or options for improving home safety. documented as of this encounter Results * Imaging Lumbar/Sacral Selective Nerve Root INJ (TFE) Left ([id number]) (02/25/2023 11:39 AM CDT) Narrative [facility] - 02/25/2023 11:39 AM CDT The images from this study are not interpreted by Radiology. ??Please refer to the physician's procedure / OR operative note. Kin Schafer NP [facility] PROCEDURES Hannah nevaeh Result [facility] documented in this encounter Visit Diagnoses Diagnosis Spinal stenosis of lumbar region without neurogenic claudication- Primary Left lumbar radiculitis Spinal stenosis of lumbar region without neurogenic claudication Left lumbar radiculitis documented in this encounter Historical Medications * This list may reflect changes made after this encounter. fluticasone propionate (FLONASE) 50 mcg/actuation nasal sprayIndications :Allergic Rhinitis Administer 1 spray into each nostril daily as needed for allergies 4 hydrOXYzine (ATARAX) 25 mg tablet Atarax 25 mg tablet Take 1 tablet 4 times a day by oral route. 3 pancrelipase (Creon) 12,000 units of lipase capsule Creon 12,000-38,000-60, 000 unit capsule,delayed release TAKE 1 CAPSULE BY MOUTH 3 TIMES DAILY WITH MEALS. 3 doxycycline (doxycycline hyclate) 100 mg capsule doxycycline hyclate 100 mg capsule TAKE 1 CAPSULE BY MOUTH TWICE A DAY 3 ciclesonide (Alvesco) 80 mcg/actuation inhalerIndicatio ns:Maintenance Therapy for Asthma Inhale 1 puff 2 (two) times a day as needed (SOB) 01/07/2014 4 added in this encounter Care Teams Test Preparation Tutor Relationship Specialty Start Date End Date No, Physician PCP - General 04/24/18 03/21/23 documented as of this encounter
--- OUTSIDE RECORDS SUMMARY | 2024-08-17 08:47 | XMS_ITS | Encounter Summary ---
Author Organization [facility] Address [address] [place] [address] Phone Care Team Providers Care Driller Hand Name Role Phone Rosibel Muse MD Primary Care Provider [phone] Encounter Details Date Type Department Care Team (Late st Contact Info) Description 05/29/2023 Telephone [facility] [address] [place] [address] Medical Office [address] [place] [address] Ashley Rodríguez Social History Tobacco Use Types Packs/Day Years Used Date Smoking Tobacco: Former Smokeless Tobacco: Never Alcohol Use Standard Drinks/Week Comments No 0 (1 standard drink = 0.6 oz pur e alcohol) Comments No Sex and Gender Information Value Date Recorded Sex Assigned at Not on file 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 Luke. I called, there was no answer and her VM is not set up. documented in this encounter Plan of Treatment [...] on filedocumented in this encounter Care Teams Driller Hand Relationship Specialty Start Date End Date Rosibel Muse MD [address] [place] [address] [place] [address] PCP - General Family Medicine 03/22/23 05/11/24 documented as of this encounter
--- OUTSIDE RECORDS SUMMARY | 2024-08-17 08:47 | XMS_ITS | Encounter Summary ---
Author Organization [facility] Healthcare Address [address] [place] [address] Care Team Providers Care Micro Computer Data Processor Name Role Phone No, Physician Primary Care Provider [phone] Reason for Referral * Diagnostic Imaging (Routine) - Closed Specialty Diagnoses / Procedures Referred By Contac t Referred To Contact Diagnoses Spinal stenosis of lumbar region without neurogenic claudication Left lumbar radiculitis Procedures Imaging Lumbar/Caudal Epidural Steroid INJ ([id number]) [place] [address] [facility] [address] [place] [address] Phone: tel: fax: [facility] [address] [place] [address] Phone: tel: fax: Referral ID Status Reason Start Date Expiration Date Visits Re quested Visits Authorized [id number] Closed 12/26/2022 01/25/2024 1 1 Reason for Visit * Diagnostic Imaging (Routine) - Closed Specialty Diagnoses / Procedures Referred By Contac t Referred To Contact Diagnoses Spinal stenosis of lumbar region without neurogenic claudication Left lumbar radiculitis Procedures Imaging Lumbar/Caudal Epidural Steroid INJ ([id number]) [place] [address] [facility] [address] [place] [address] Phone: tel: fax: [facility] [address] [place] [address] Phone: tel: fax: Referral ID Status Reason Start Date Expiration Date Visits Re quested Visits Authorized [id number] Closed 12/26/2022 01/25/2024 1 1 Encounter Details Date Type Department Care Team (Late st Contact Info) Description 01/02/2023 6:46 AM CDT - 01/02/2023 11:59 PM CDT Hospital Encounter [facility] [id number] [place] [address] [place] [address] [facility] [address] [place] [address] Spinal stenosis of lumbar region without neurogenic claudication; Left lumbar radiculitis Discharge Disposition: Discharge to home or self care Social History Tobacco Use Types Packs/Day Years Used Date Smoking Tobacco: Former Smokeless Tobacco: Never Alcohol Use Standard Drinks/Week Comments No 0 (1 standard drink = 0.6 oz pur e alcohol) Comments No Sex and Gender Information Value Date Recorded Sex Assigned at Not on file 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 Gender Identity Not on file Sexual Orientation Not on file Occupation Industry Job Start Date Job End Date Disability Not on file Not on file Not on file documented as of this encounter Last Filed Vital Signs Vital Sign Reading Time Taken Comments Blood Pressure 126/92 01/02/2023 7:33 AM CDT Pulse 83 01/02/2023 7:33 AM CDT Temperature 36.4 ??C (97.5 ??F) 01/02/2023 7:09 AM CD T Respiratory Rate 16 01/02/2023 7:33 AM CDT Oxygen Saturation 98% 01/02/2023 7:33 AM CDT Inhaled Oxygen Concentration - - Weight - - Height - - Body Mass Index - - documented in this encounter Discharge Instructions * Discharge Instructions* Roula Charles RN - 01/02/2023 7:34 AM CDT You may notice a slight increase in pain after the procedure. This should start to improve within the next 24-48 hours. It may take as long as 72 hours before you notice a gradual improvement in your pain/symptoms. If you are taking pain medications you may continue to take them. You may restart your medications the day after the procedure. If you are going to physical therapy continue to do so. If you experience pain at the injection site, you may apply ice to the affected area for area for 20 minutes every 2 hours. No heat to the injection site for 24 hours. No tub bath or soaking in water(pools/jacuzzi, etc.) for 24 hours. If you develop ANY other symptoms, such as severe pain, headache, visual changes, new numbness or weakness any where on your body, loss of control of your bowels or bladder, or have signs of infection (temperature of 100.4 or greater, drainage at the injection site) Call the Pain Management Center i mmediately at [phone]. After hours, contact the [facility] Filing [facility] Registry Clerk at [phone] and she will reach your physician for you. In case of emergency call 911 documented in this encounter Medications at Time of Discharge ALPRAZolam (XANAX) 1 mg tabletIndication s:anxiety Take 1 tablet (1 mg total) by mouth nightly as needed for anxiety 4 hydroCHLOROthiaz herman (HYDRODIURIL) 25 mg tabletIndication s:hypertension Take 1 tablet (25 mg total) by mouth ore mixer before breakfast 4 sertraline (ZOLOFT) 50 mg tabletIndication s:Anxiety [...] cyclobenzaprine (FLEXERIL) 10 mg tablet 04/04/2018 3 ibuprofen (ADVIL,MOTRIN) 800 mg tabletIndication s:Anti-inflammat ory Take 1 tablet (800 mg total) by mouth every 6 (six) hours as needed for pain 3 losartan (COZAAR) 100 mg tablet Take 1 tablet (100 mg total) by mouth daily 12/02/2022 3 meloxicam (MOBIC) 15 mg tablet Take 1 tablet (15 mg total) by mouth daily 12/11/2022 3 quinapril (ACCUPRIL) 40 mg tablet Take 40 mg by mouth 2 (two) times a day. 3 documented as of this encounter Discharge Disposition Disposition Code Departure Means Destination Discharge to home or self care documented in this encounter H&P Notes * Erasmo Luna MD - 01/02/2023 7:15 AM CDT Patient Name: Krissy Oneal : 1955 Today's Date: 01/02/2023 PCP: No, Physician Most recent H&P reviewed, no changes noted. Encounter Diagnoses Name Primary? Spinal stenosis of lumbar region without neurogenic claudication Left lumbar radiculitis Vitals BP 126/92 Pulse 83 Temp 97.5 ??F (36.4 ??C) Resp 16 SpO2 98% Allergies Allergen Reactions Iv Contrast Dye [Iodinated [...] Sexual Activity Drug use: No Sexual activity: Not on file Alcohol Use: Not on file Family History Problem Relation Age of Onset Cancer Father Cancer Brother HOME MEDICATIONS : albuterol (PROVENTIL,VENTOLIN) 2.5 mg /3 mL (0.083 %) nebulizer solution ALPRAZolam (XANAX) 1 mg tablet amLODIPine (NORVASC) 5 mg tablet budesonide-formoteroL (SYMBICORT) 160-4.5 mcg/actuation inhaler cyclobenzaprine (FLEXERIL) 10 mg tablet hydroCHLOROthiazide (HYDRODIURIL) 25 mg tablet ibuprofen (ADVIL,MOTRIN) 800 mg tablet losartan (COZAAR) 100 mg tablet meloxicam (MOBIC) 15 mg tablet quinapril (ACCUPRIL) 40 mg tablet sertraline (ZOLOFT) 50 mg tablet simvastatin (ZOCOR) 20 mg tablet Plan: L4/5 Epidural Steroid Injection This note is prepared by Erik Camacho, acting as a scribe for Erasmo Luna MD. I electronically signed this note at 8:19 AM on 01/02/2023. I, Erasmo Luna MD, have personally performed the services described in the documentation,reviewed the documentation, as recorded by the scribe in my presence, and it accurately and completely records my words and actions. documented in this encounter Miscellaneous Notes * Op Note - Erasmo Luna MD - 01/02/2023 7:15 AM CDT Procedure: Lumbar Epidural Steroid Injection Diagnosis: Lumbago, Lumbar Spinal Stenosis, Lumbar Radiculopathy Indication for procedure: Please see office note detailing need for epidural steroid injection Surgeon: Abram Luna Anesthesia: Local Complications: None Informed Consent: Risks, benefits, complications, and alternatives to proceeding with the procedurewere discussed in detail with the patient. Questions were solicited and answered, and the patient endorsed explicit understanding and consent to proceed. The patient was informed risks included but are not limited to: serious infection, bleeding/bruising, allergic reaction, nerve or organ injury, paralysis, increased pain, worsening mobility, lack of pain relief, stroke, and . Description of Procedure: The patient was then allowed to place themselves in the prone position on the operating room table.The back was prepped with chlorhexidine and draped in the usual sterile fashion. Fluoroscopy was utilized to identify and number the lumbar vertebrae. The L4-5 interspace was optimized via fluoroscopy and the overlying skin and subcutaneous tissue was anesthetized with 1% lidocaine. Next, a Tuohy needle was advanced under fluoroscopic guidance and utilizing loss of resistance technique with saline until the tip lie within the lumbar epidural space. After negative aspiration, 0.5 ml of Omnipaquecontrast was injected, revealing an appropriate lumbar epidurogram. Additional fluoroscopic imagingfrom another angle showed appropriate spread as well. Again after negative aspiration, a solution consisting of 10mg of Decadron in quantity sufficient 7 ml PSF NS was injected. Aseptic technique was utilized throughout. Location/laterality were confirmed with the patient and staff during timeout. The patient tolerated the procedure well, and there were no apparent complications. There were no neurosensory changes. The patient was brought to the recovery area. Vital signs stable. Injection site clean, dry, and intact. Post procedure instructions were given to the patientand a follow up confirmed. 24-hour contact information provided. The patient was instructed to callin the event of severe pain, bleeding, neurological deficit, fever, or other significant concerns, and to call 911 if there is any concern for any emergency. The patient denies complaints and is discharged. documented in this encounter Plan of Treatment [...] Procedure Name Priority Date/Time Associated Diagnosis Comments PAIN MGMT IMAGING LUMBAR/CAUDAL EPIDURAL STEROID INJ Schedule Routine, Read Routine (OP Routine) 01/02/2023 7:38 AM CDT Spinal stenosis of lumbar region without neurogenic claudication Left lumbar radiculitis documented in this encounter Results * Imaging Lumbar/Caudal Epidural Steroid INJ ([id number]) (01/02/2023 7:38 AM CDT) Narrative [facility] - 01/02/2023 7:38 AM CDT The images from this study are not interpreted by Radiology. ??Please refer to the physician's procedure / OR operative note. Erasmo Luna MD IMG PAIN MGMT PROCEDU RES Final Result [facility] documented in this encounter Visit Diagnoses Diagnosis Spinal stenosis of lumbar region without neurogenic claudication Left lumbar radiculitis documented in this encounter Administered Medications Inactive Administered Medications - up to 3 most recent administrations Medication Order MAR Action Action Date Dose Rate Site dexAMETHasone (DECADRON) injection solution Administer over 2 Minutes, As needed, Starting on Sat01/02/23 at 0726, Intra-Op Given 01/02/2023 7:26 AM CDT 10 mg iohexoL (OMNIPAQUE) 240 mg iodine/mL injection solution As needed, Starting on Sat01/02/23 at 0726, Intra-Op Given 01/02/2023 7:26 AM CDT 1 mL sodium chloride 0.9% flush As needed, Starting on Sat01/02/23 at 07, Intra-Op Given 01/02/2023 7:26 AM CDT 5 mL documented in this encounter Care Teams Micro Computer Data Processor Relationship Specialty Start Date End Date No, Physician PCP - General 04/24/18 03/21/23 documented as of this encounter
--- OUTSIDE RECORDS SUMMARY | 2024-08-17 08:47 | XMS_ITS | Encounter Summary ---
Author Organization [facility] Healthcare Address [address] [place] [address] Care Team Providers Care Software Packaging Engineer Name Role Phone No, Physician Primary Care Provider [phone] Reason for Referral * Diagnostic Imaging (Routine) - Closed Specialty Diagnoses / Procedures Referred By Divina t Referred To Contact Diagnoses Spinal stenosis of lumbar region without neurogenic claudication Left lumbar radiculitis Procedures Imaging Lumbar/Sacral Selective Nerve Root INJ (TFE) Left ([id number]) [place] [address] [place] [address] Phone: tel: fax: [facility] [address] [place] [address] Phone: tel: fax: Referral ID Status Reason Start Date Expiration Date Visits Re quested Visits Authorized [id number] Closed 01/23/2023 02/22/2024 1 1 Reason for Visit * Diagnostic Imaging (Routine) - Closed Specialty Diagnoses / Procedures Referred By Contac t Referred To Contact Diagnoses Spinal stenosis of lumbar region without neurogenic claudication Left lumbar radiculitis Procedures Imaging Lumbar/Sacral Selective Nerve Root INJ (TFE) Left ([id number]) [place] [address] [place] [address] Phone: tel: fax: [facility] [address] [place] [address] Phone: tel: fax: Referral ID Status Reason Start Date Expiration Date Visits Re quested Visits Authorized [id number] Closed 01/23/2023 02/22/2024 1 1 Encounter Details Date Type Department Care Team (Late st Contact Info) Description 02/25/2023 11:07 AM CDT - 02/25/2023 11:59 PM CDT Hospital Encounter [facility] [address] [place] [address] [place] [address] [facility] [address] [place] [address] Spinal stenosis of lumbar region without neurogenic [...] on file 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 Gender Identity Not on file Sexual Orientation Not on file Occupation Industry Job Start Date Job End Date Disability Not on file Not on file Not on file documented as of this encounter Last Filed Vital Signs Vital Sign Reading Time Taken Comments Blood Pressure 126/73 02/25/2023 11:37 AM CDT Pulse 72 02/25/2023 11:37 AM CDT Temperature 36.3 ??C (97.3 ??F) 02/25/2023 11:21 AM C DT Respiratory Rate 15 02/25/2023 11:37 AM CDT Oxygen Saturation 100% 02/25/2023 11:37 AM CDT Inhaled Oxygen Concentration - - Weight - - Height - - Body Mass Index - - documented in this encounter Discharge Instructions * Discharge Instructions* Hilda Desai RN - 02/25/2023 12:46 PM CDT You may notice a slight increase [...] the Pain Management Center i mmediately at [phone]. After hours, contact the [facility] Piping Engineer at [phone] and she will reach your physician for [...] 1 tablet (25 mg total) by mouth real time analyst before breakfast 4 potassium chloride ER 20 [...] H&P Notes * Erasmo Luna MD - 02/25/2023 11:15 AM CDT Patient Name: Krissy Oneal : 1955 Today's Date: 02/25/2023 PCP: No, Physician Referring: Erasmo Luna* Most recent H&P reviewed, no changes noted. Vitals BP 133/83 Pulse 70 Temp 97.3 ??F (36.3 ??C) Resp 17 SpO2 100% Allergies Allergen Reactions Iv Contrast Dye [Iodinated [...] mg tablet hydrOXYzine (ATARAX) 25 mg tablet ibuprofen (ADVIL,MOTRIN) 800 mg tablet losartan (COZAAR) 100 mg tablet meloxicam (MOBIC) 15 mg tablet pancrelipase (Creon) 12,000 units of lipase capsule quinapril (ACCUPRIL) 40 mg tablet sertraline (ZOLOFT) 50 mg tablet simvastatin (ZOCOR) 20 mg tablet ROS: WNL for pt since last visit, including cardiorespiratory. No changes from prior visit appreciated. PE: WNL for pt since last visit, including cardiorespiratory. No changes from prior visit appreciated. Plan: left L4/5 TFESI documented in this encounter Miscellaneous Notes * Op Note - Erasmo Luna MD - 02/25/2023 11:15 AM CDT Procedure: Left Transforaminal Epidural Steroid Injection Diagnosis: Lumbar radiculopathy, spinal stenosis Indication for Procedure: Please see office note detailing need for epidural steroid injection. Surgeon: Abram Luna Anesthesia: Local Complications: None Description of Procedure: Informed Consent: Risks, benefits, complications, and alternatives [...] lack of pain relief, stroke, and . The patient was then allowed to place themself in the prone position on the operating room table. The back was prepped with chlorhexidine and draped in the usual sterile fashion. Fluoroscopy was utilized to identify and number the lumbar vertebrae. The C-arm was then obliqued to the left and an oblique view of the left L4/5 neuroforamen noted. Next, under AP, oblique, and lateral fluoro, a #22gauge spinal needle was advanced under fluoroscopic guidance until the tip lie at the neuroforamen. After negative aspiration, 0.5 ml Omnipaque contrast was injected, revealing appropriate spread. Again after negative aspiration, 10mg decadron in QS 2 ml PSF 1% Lidocaine was injected. Aseptic technique was utilized throughout. [...] The patient denies complaints and is discharged. * Addendum Note - Hilda Desai RN - 02/25/2023 11:15 AM CDTEncounter addended by: Hilda Desai RN on: 02/25/2023 12:46 PM Actions taken: Edited Discharge Instructions, Flowsheet accepted documented in this encounter Plan of Treatment [...] stairs Contact your local community or senior drifton for information on exercise, fall prevention programs, or options for improving home safety. documented as of this encounter Procedures Procedure Name Priority Date/Time Associated Diagnosis Comments PAIN MGMT IMAGING LUMBAR/SACRAL SELECTIVE NERVE ROOT INJ (TFE) LEFT Schedule Routine, Read Routine (OP Routine) 02/25/2023 11:39 AM CDT Spinal stenosis of lumbar region without neurogenic claudication Left lumbar radiculitis documented in this encounter Results * Imaging Lumbar/Sacral Selective Nerve Root INJ (TFE) Left ([id number]) (02/25/2023 11:39 AM CDT) Narrative [facility] - 02/25/2023 11:39 AM CDT The images from this study are not interpreted by Radiology. ??Please refer to the physician's procedure / OR operative note. Kin Schafer NP IMG PAIN MGMT PROCEDURES Hannah l Result [facility] documented in this encounter Visit Diagnoses Diagnosis Spinal stenosis of lumbar region without neurogenic claudication Left lumbar radiculitis documented in this encounter Administered Medications Inactive Administered Medications - up to 3 most recent administrations Medication Order MAR Action Action Date Dose Rate Site dexAMETHasone (DECADRON) injection solution Administer over 2 Minutes, As needed, Starting on Sat02/25/23 at 1130, Intra-Op Given 02/25/2023 11:30 AM CDT 10 mg iohexoL (OMNIPAQUE) 240 mg iodine/mL injection solution As needed, Starting on Sat02/25/23 at 1131, Intra-Op Given 02/25/2023 11:31 AM CDT 1 mL lidocaine (XYLOCAINE) 20 mg/mL (2 %) injection As needed, Starting on Sat02/25/23 at 1131, Intra-Op, Indications: Administration of Local AnesthesiaIndications:Administrati on of Local Anesthesia Given 02/25/2023 11:31 AM CDT 7 mL documented in this encounter Care Teams Software Packaging Engineer Relationship Specialty Start Date End Date No, Physician PCP - General 04/24/18 03/21/23 documented as of this encounter
--- OUTSIDE RECORDS SUMMARY | 2024-08-17 08:47 | XMS_ITS | Encounter Summary ---
Author Organization [facility] Healthcare Address [address] [place] [address] Care Team Providers Care Design Consultant Name Role Phone Rosibel Muse MD Primary Care Provider [phone] Sabino Luke MD Unavailable [phone] Reason for Visit * Auth/Cert Specialty Diagnoses / Procedures Referred By Divina t Referred To Contact Diagnoses Incarcerated incisional hernia Incarcerated incisional hernia [K43.0] Procedures PA RPR AA HERNIA 1ST > 10 CM NCRC8/STRANGULATED PA MUSC MYOCUTANEOUS/FASCIOCUTANEOUS FLAP TRUNK REPAIR INCISIONAL HERNIA RECONSTRUCTION ABDOMINAL WALL Referral ID Status Reason Start Date Expiration Date Visits Re quested Visits Authorized [id number] 1 1 Encounter Details Date Type Department Care Team (Late st Contact Info) Description 05/11/2024 12:24 PM CDT Anesthesia Event [facility] [address] [place] [id number] Naga Benavidez MD [address] [place] [address] Paige Quesada NP [address] [facility] [id number] [place] [address] Anesthesia Record Procedure Summary Procedure Name Responsible [...] No value filed. 1738 An Stop Meds Name Total lidocaine (cardiac) syringe 2 % 60 mg propofol 150 mg fentaNYL 100 mcg rocuronium 90 mg phenylephrine 100 mcg/mL 2.68 mg ondansetron PF (ZOFRAN) 2 mg/mL injectio n 4 mg ceFAZolin (ANCEF) 2,000 mg/20 mL in ster ile water (premix) 2,000 mg 4,000 mg methadone 10 mg/mL 10 mg sugammadex 200 mg LR 2,000 mL Lactated Ringer's (LR) infusion 600 mL * Agents Name O2% N2O O2 N2O Air Sevoflurane Inspired Sevoflurane * Blood No blood administrations on file. Lines, Drains, and Airways Type Details Placement Removal Wound Incision; Abdomen; Mid-line 05/11/24 1404 by Implanted Port Orientation: Right; Location: Chest; Removal Time: 05/19/24; Removal Reason: 1050 04/16/24 1050 by 05/19/24 1050 by Ronda Lozano RETIRED Surgical Site 06/02/18; 1226; Sarkis ck; 07/14/24 (Retired LDA, Removed/Completed by [facility] with LDA Utility); 1213 (Retired LDA, Removed/Completed by [facility] with LDA Utility) 06/02/18 1226 by Monique Vallejo RN 07/14/24 1213 by Discharge Provider, Automatic RETIRED Surgical Site 06/23/18; 0936; Ba ck; 07/14/24 (Retired LDA, Removed/Completed by [facility] with LDA Utility); 1213 (Retired LDA, Removed/Completed by [facility] with LDA Utility) 06/23/18 0936 by Jennifer Wetzel RN 07/14/24 1213 by Discharge Provider, Automatic Peripheral IV Placement Date: 05/11/24; Placement Time: 1103; Catheter Size: 20 G; Orientation: Left; Location: Hand; Insertion Attempts: 1; Patient Tolerance: Tolerated well; Removal Date: 05/18/24; Removal Time: 215; Removal Reason: Other (Comment) 05/11/24 110 by Raissa Lara 05/18/242155 by Raquel Shipman RN Urethral Catheter Placement Date: 05/11/24; Placement Time: 1245; Inserted by: Rob Huber RN; Type: Double-lumen, Non-latex, Straight-tip; Balloon Size: 10 mL; Urine Returned: Yes; Removal Date: 05/13/24; Removal Time: 0805/11/24 1245 by Melly Renteria RN 05/13/24 0830 by Teagan Long, RN ETT Placement Date: 05/11/24; Placement Time: [...] Attempts: 1; Removal Date: 05/19/24; Removal Time: 1027 05/11/24 1316 by Ganesh Ramirez MD 05/19/24 1027 [...] on file 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 Gender Identity Not on file Sexual Orientation Not on file Occupation Industry Job Start Date Job End Date Disability Not on file Not on file Not on file documented as of this encounter OR Notes * Anesthesia Postprocedure Evaluation - Torsten Vila MD - 05/11/2024 7:02 PM CDT Patient: Krissy Oneal Procedure Summary Date: 05/11/24 Room / Location: [facility] OR POD 1 ROOM [facility] / [facility] OR POD 1 Anesthesia Start: 1224 Anesthesia Stop: 1738 Procedures: REPAIR INCISIONAL HERNIA (Abdomen) RECONSTRUCTION ABDOMINAL WALL (Abdomen) Diagnosis: Incarcerated incisional hernia (Incarcerated incisional hernia [K43.0]) Surgeons: Sabino Luke MD Responsible Provider: Naga Barbosa MD Anesthesia Type: general ASA Status: 3 Anesthesia Type: general Last vitals BP 116/82 Pulse 76 Temp 36.6 ??C (97.9 ??F) (Oral) Resp 17 SpO2 99% Anesthesia Post Evaluation Patient location during evaluation: PACU Patient participation: complete - patient participated Level of consciousness: fully awake Pain score: 1 Pain management: satisfactory to patient Airway patency: adequate and patent Evidence of recall: no Cardiovascular status: acceptable and hemodynamically stable Respiratory status: acceptable and nasal cannula Hydration status: acceptable Pt is: normothermic Nausea/Vomiting status: none Comments: Will D/C to floor on 2 LPM NCO2. GH No notable events documented. * Anesthesia Procedure Notes - Ganesh Ramirez MD - 05/11/2024 1:15 PM CDT Associated Order(s): Peripheral IV Catheter Peripheral IV Catheter Patient location: OR Staff: Placed by: Anesthesiologist: Naga Barbosa MD Preprocedure prep: Prep solution: alcohol PPE: provider hat/mask and gloves PIV line: Laterality: left Site: forearm Catheter size: 20 g Technique: direct visualization Procedure details: good blood return Number of attempts: 1 Other sites attempted: R hand, R AC Assessment: Events: patient tolerated procedure well with no complications * Anesthesia Procedure Notes - Ganesh Ramirez MD - 05/11/2024 1:14 PM CDT Associated Order(s): Airway Airway Patient location: OR Urgency: elective Indications for airway management: anesthesia and airway protection Difficult airway: no Staff: Supervising provider: Naga Barbosa MD Placed by: Resident: Ganesh Ramirez MD Emergent airway documentation: Risks and benefits discussed: yes Consent obtained: yes Consent given by: patient Airway prep: Preoxygenated: yes Patient position: sniffing Mask difficulty assessment: 2 - vent by mask + OA or adjuvant Spontaneous ventilation during airway: absent Sedation level during airway: GA Final airway details: Final airway type: endotracheal airway Tube type: ETT ETT size: 7.0 mm Cuffed: yes Technique used for successful ETT placement: video laryngoscopy Devices/Methods used in placement: stylet Insertion site: oral Blade type: Anh Video blade type: Irvin Blade size: 3 Cormack-Lehane (video): grade IIa - partial view of glottis Initial cuff pressure: 29 cm H2O Cuff inflated with: air ETT to lips: 20 cm Placement verified by: auscultation and CO2 detection Airway secured with: silk tape Number of attempts: 1 Planned trial extubation: yes * Anesthesia Preprocedure Evaluation - Naga Barbosa MD - 04/16/2024 10:14 AM CDT Images from the original note were not included. [facility] Preoperative Evaluation Record Evaluation type/location: [facility] Planned procedure site: [facility] PVT OR (Pod 1) Date: 04/16/24 Anesthesia [...] TR - mild. Pertinent negatives: CAD ; VA ; CABG ; valve replacement; atrial fibrillation; [...] Pre-Procedural Assessment performedby the above primary evaluating PECAN CLEANER, who is currently in the CPAP PECAN CLEANER Orientation interval. Signed by: Paige Guaman NP [...] Last Dose Start Date End Date Provider Accu-Chejose elias Guide test strips strip -- 04/13/24 -- Ramiro Sandoval MD Accu-Chejose elias Softclix Lancets lancets -- 04/06/24 -- ProviderRamiro MD albuterol HFA (PROVENTIL HFA,VENTOLIN HFA,PROAIR HFA) 90 mcg/actuation inhaler Past Month -- -- Provider, MD Ramiro Alcohol Prep Pads pads, medicated -- 03/30/24 -- ProviderRamiro MD ALPRAZolam (XANAX) 1 mg tablet 04/15/2024 -- -- Ramiro Sandoval MD amLODIPine (NORVASC) 10 mg tablet 04/16/2024 12/12/23 -- Ramiro Sandoval MD budesonide-formoteroL (SYMBICORT) 160-4.5 mcg/actuation inhaler Not Taking -- -- ProviderRamiro MD ciclesonide (Alvesco) 80 mcg/actuation inhaler -- 01/07/14 -- ProviderRamiro MD cyanocobalamin, vitamin B-12, 5,000 mcg/mL drops [...] Score: 0 Short Blessed Total Score: 2 DOS Physical Exam Medical history, medications, and allergies reviewed. Attestation: With today's edits, I endorse the findings of the anesthesia pre-evaluation assessment dated: 04/16/2024. Airway Exam: Mallampati: II Cervical ROM: FROM TM distance: >4 Cardiovascular Exam: Rate: regular Rhythm: regular Pulmonary Exam: LCTA, bilat EENT Exam: trachea midline Dental Exam: Appears intact Skin Exam: Skin is warm and dry. Capillary refill is < 3 seconds. Turgor is normal. Abdominal Exam: Abdomen is soft. Bowel sounds are present. Current state: Patient's current state is cooperative. Anesthesia Plan ASA 3 My patient is approved for the Anesthesia Controlled Medication protocol when under care of a SPINNING OPERATOR Planned anesthesia: General Team communication plan: oral ET tube Induction: Induction: intravenous. Postoperative Plan: Postoperative administration opioids intended. No postoperative mechanical ventilation intended. Patient's planned disposition post procedure is Floor. Informed Consent: Discussed plan with resident. Anesthesia plan and risks discussed with patient. Consent and Attending signature: I and/or my designee have discussed the anesthesia plan, benefits, possible alternatives, parental presence at time of induction (if indicated), and clinically relevant risks that may include dental injury, unintentional awareness, and/or other complications. The patient and/or parent/legal guardian understand, and agree to proceed. All questions answered. documented in this encounter Plan of Treatment [...] on stairs Contact your local community or [facility] for information on exercise, fall prevention programs, or options for improving home safety. documented as of this encounter Procedures Procedure Name Priority Date/Time Associated Diagnosis Comments PERIPHERAL LINE Routine 05/11/2024 1:15 PM CDT ANESTHESIA INTUBATION Routine 05/11/2024 1:14 PM CDT documented in this encounter Results * Peripheral IV Catheter (05/11/2024 1:15 PM CDT) Narrative Ganesh Ramirez MD - 05/11/2024 1:15 PM CDT Ganesh Ramirez MD ? 05/11/2024 ??1:16 PM Peripheral IV Catheter Patient location: OR Staff: Placed by: Anesthesiologist: Naga Barbosa MD Preprocedure prep: Prep solution: alcohol PPE: provider hat/mask and gloves PIV line: Laterality: left Site: forearm Catheter size: 20 g Technique: direct visualization Procedure details: good blood return Number of attempts: 1 Other sites attempted: R hand, R AC Assessment: Events: patient tolerated procedure well with no complications us Naga Barbosa MD ANESTHESIA ORDERAB LES Edited Result - Final * Airway (05/11/2024 1:14 PM CDT) Narrative Ganesh Ramirez MD - 05/11/2024 1:14 PM CDT Ganesh Ramirez MD ? 05/11/2024 ??1:15 PM Airway Patient location: OR Urgency: elective Indications for airway management: anesthesia and airway protection Difficult airway: no Staff: Supervising provider: Naga Barbosa MD Placed by: Resident: Ganesh Ramirez MD Emergent airway documentation: Risks and benefits discussed: yes Consent obtained: yes Consent given by: patient Airway prep: Preoxygenated: yes Patient position: sniffing Mask difficulty assessment: 2 - vent by mask + OA or adjuvant Spontaneous ventilation during airway: absent Sedation level during airway: GA Final airway details: Final airway type: endotracheal airway Tube type: ETT ETT size: 7.0 mm Cuffed: yes Technique used for successful ETT placement: video laryngoscopy Devices/Methods used in placement: stylet Insertion site: oral Blade type: Anh Video blade type: Irvin Blade size: 3 Cormack-Lehane (video): grade IIa - partial view of glottis Initial cuff pressure: 29 cm H2O Cuff inflated with: air ETT to lips: 20 cm Placement verified by: auscultation and CO2 detection Airway secured with: silk tape Number of attempts: 1 Planned trial extubation: yes us Naga Barbosa MD ANESTHESIA ORDERAB LES Final Result documented in this encounter Visit Diagnoses Not on filedocumented in this encounter Administered Medications Inactive Administered Medications - up to 3 most recent administrations Medication Order MAR Action Action Date Dose Rate Site ceFAZolin (ANCEF) 2,000 mg/20 mL in sterile water (premix) 2,000 mg 2,000 mg, intravenous, at 400 mL/hr, Administer over 3 Minutes, Once, On 05/11/24 at 1130, For 1 dose, Pre-Op, Indications: Prophylaxis, SurgicalIndications:Prophylaxis, Surgical Given 05/11/2024 5:00 PM CDT 2,000 mg Given 05/11/2024 1:01 PM CDT 2,000 mg fentaNYL (SUBLIMAZE) preservative free injection intravenous, As needed, Starting on Sat05/11/24 at 1247, Anesthesia Intra-op Given 05/11/2024 12:47 PM CDT 100 mc g Lactated Ringer's (LR) infusion 30 mL/hr, intravenous, Continuous, Starting on Sat05/11/24 at 1130, Pre-Op Restarted 05/11/2024 1:14 PM CDT Rate/Dose Verify 05/11/2024 12:24 PM CDT 30 mL/ hr New Bag 05/11/2024 11:16 AM CDT 30 mL/hr 30 mL/hr Lactated Ringer's (LR) infusion intravenous, Continuous PRN, Starting on Sat05/11/24 at 1224, Anesthesia Intra-op New Bag 05/11/2024 5:03 PM CDT New Bag 05/11/2024 1:56 PM CDT New Bag 05/11/2024 12:24 PM CDT lidocaine (cardiac) (XYLOCAINE) preservative free injection intravenous, As needed, Starting on Sat05/11/24 at 1247, Anesthesia Intra-op, Indications: Ventricular ArrhythmiasIndications:Ventricular Arrhythmias Given 05/11/2024 12:47 PM CDT 60 mg methadone injection syringe intravenous, As needed, Starting on Sat05/11/24 at 1303, Anesthesia Intra-op Given 05/11/2024 1:09 PM CDT 5 mg Given 05/11/2024 1:03 PM CDT 5 mg ondansetron (ZOFRAN) injection intravenous, Administer over 2 Minutes, As needed, Starting on Sat05/11/24 at 1706, Anesthesia Intra-op Given 05/11/2024 5:06 PM CDT 4 mg phenylephrine (WILLAM-SYNEPHRINE) 1 mg/10 mL (100 mcg/mL) in sodium chloride 0.9% (premix) intravenous, Continuous PRN, Starting on Sat05/11/24 at 1326, Anesthesia Intra-op Given 05/11/2024 5:09 PM CDT 200 mcg Given 05/11/2024 4:25 PM CDT 100 mcg Given 05/11/2024 3:47 PM CDT 100 mcg propofoL (DIPRIVAN) 10 mg/mL IV intravenous, As needed, Starting on Sat05/11/24 at 1247, Anesthesia Intra-op Given 05/11/2024 12:47 PM CDT 150 mg rocuronium (ZEMURON) injection intravenous, As needed, Starting on Sat05/11/24 at 1248, Anesthesia Intra-op Given 05/11/2024 4:17 PM CDT 10 mg Given 05/11/2024 2:49 PM CDT 20 mg Given 05/11/2024 12:48 PM CDT 60 mg sugammadex (BRIDION) 100 mg/mL intravenous solution intravenous, As needed, Starting on Sat05/11/24 at 1716, Anesthesia Intra-op Given 05/11/2024 5:16 PM CDT 200 mg documented in this encounter Care Teams Design Consultant Relationship Specialty Start Date End Date Rosibel Muse MD [facility] [place] [address] PCP - General Family Medicine 03/22/23 05/11/24 Sabino Luke MD [address] [place] [address] Referring Physician General Surgery 12/06/23 documented as of this encounter
--- OUTSIDE RECORDS SUMMARY | 2024-08-17 08:47 | XMS_ITS | Encounter Summary ---
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 Gender Identity Not on file Sexual Orientation Not on file Occupation Industry Job Start Date Job End Date Disability Not on file Not on file Not on file documented as of this encounter Medications at Time of Discharge acetaminophen (TYLENOL) 500 mg tabletIndication s:Pain Take 2 tablets (1,000 mg total) by mouth every 6 (six) hours as needed for pain 30 tablet 05/18/2024 albuterol HFA (PROVENTIL HFA,VENTOLIN HFA,PROAIR HFA) 90 mcg/actuation inhalerIndicatio ns:Acute Asthma Attack Inhale 2 puffs every 6 (six) hours as needed for wheezing 1 each 05/18/2024 ALPRAZolam (XANAX) 0.5 mg tablet Take 1 tablet (0.5 mg total) by mouth 3 (three) times a day as needed for anxiety 10 tablet 05/18/2024 amLODIPine (NORVASC) 10 mg tabletIndication s:hypertension Take 1 tablet (10 mg total) by mouth deputy court clerk before breakfast 30 tablet 05/18/2024 budesonide-formo teroL [...] 1 tablet (10 mg total) by mouth deputy court clerk before breakfast 30 tablet 05/18/2024 fluticasone propionate (FLONASE) 50 mcg/actuation nasal sprayIndications :Allergic Rhinitis Administer 1 spray into each nostril daily as needed for allergies 1 each 05/18/2024 hydroCHLOROthiaz herman (HYDRODIURIL) 25 mg tabletIndication s:hypertension Take 1 tablet (25 mg total) by mouth deputy court clerk before breakfast 30 tablet 05/18/2024 hydrOXYzine (ATARAX) [...] total) by mouth nightly 30 tablet 05/18/2024 albuterol HFA (PROVENTIL HFA,VENTOLIN HFA,PROAIR HFA) 90 mcg/actuation inhalerIndicatio ns:Acute Asthma Attack Inhale 2 puffs every 6 (six) hours as needed for wheezing 4 ALPRAZolam (XANAX) 1 mg tabletIndication s:anxiety Take 1 tablet (1 mg total) by mouth nightly as needed for anxiety 4 amLODIPine (NORVASC) 10 mg tabletIndication s:hypertension Take 1 tablet (10 mg total) by mouth deputy court clerk before breakfast 12/12/2023 4 cyanocobalamin, vitamin B-12, 5,000 mcg/mL dropsIndications :Prevention of Vitamin B12 [address] 5,000 mcg under the tongue deputy court clerk before breakfast 4 dicyclomine (BENTYL) 20 mg tabletIndication s:Abdominal Pain with Cramps Take 1 tablet (20 mg total) by mouth 2 (two) times a day 02/06/2024 4 Farxiga 10 mg tabletIndication s:type 2 diabetes mellitus Take 1 tablet (10 mg total) by mouth deputy court clerk before breakfast 12/12/2023 4 fluticasone propionate (FLONASE) 50 mcg/actuation nasal sprayIndications :Allergic Rhinitis Administer 1 spray into each nostril daily as needed for allergies 4 hydroCHLOROthiaz herman (HYDRODIURIL) 25 mg tabletIndication s:hypertension Take 1 tablet (25 mg total) by mouth deputy court clerk before breakfast 4 iron,carb/vit C/vit B12/folic (IRON 100 PLUS ORAL)Indications :supplement Take 100 mg by mouth deputy court clerk before breakfast 4 metFORMIN (GLUCOPHAGE) 500 mg tabletIndication s:type 2 diabetes mellitus Take 1 tablet (500 mg total) by mouth 2 (two) times a day with meals 4 potassium chloride ER 20 mEq CR tabletIndication s:supplement Take 1 tablet (20 mEq total) by mouth every other day 01/08/2023 4 sertraline (ZOLOFT) 50 mg tabletIndication s:Anxiety with Depression Take 1 tablet (50 mg total) by mouth every evening 4 simvastatin (ZOCOR) 20 mg tabletIndication s:hyperlipidemia Take 1 tablet (20 mg total) by mouth nightly 05/08/2018 4 cyanocobalamin, vitamin B-12, 5,000 mcg/mL dropsIndications :Prevention of Vitamin B12 [address] 5,000 mcg under the tongue deputy court clerk before breakfast 59 mL 05/18/2024 4 iron-vit C-vit F42-vkxdj acid (Iron 100 Plus) [phone] st-wk-ohx-mg tabletIndication s:supplement Take 1 tablet/chew tab by mouth deputy court clerk before breakfast 30 tablet 05/18/2024 4 potassium chloride ER 20 mEq CR tabletIndication s:supplement Take 1 tablet (20 mEq total) by mouth every other day 15 tablet 05/18/2024 4 acetaminophen 500 mg capsuleIndicatio ns:Pain Take 2 capsules (1,000 mg total) by mouth every 6 (six) hours as needed for pain 05/13/2024 4 ALPRAZolam (XANAX) 0.5 mg tablet Take 1 tablet (0.5 mg total) by mouth 3 (three) times a day as needed for anxiety 10 tablet 05/18/2024 4 budesonide-formo teroL (SYMBICORT) 160-4.5 mcg/actuation inhalerIndicatio ns:Acute Asthma Attack Inhale 2 puffs 2 (two) times a day as needed (SOB) 10/07/202 4 ciclesonide (Alvesco) 80 mcg/actuation inhalerIndicatio ns:Maintenance Therapy for Asthma Inhale 1 puff 2 (two) times a day as needed (SOB) 01/07/2014 4 docusate sodium (COLACE) 100 mg capsuleIndicatio ns:constipation Take 1 capsule (100 mg total) by mouth 2 (two) times a day 30 capsule 05/13/2024 4 oxyCODONE (ROXICODONE) 5 mg immediate release tabletIndication s:Pain Take 1 tablet (5 mg total) by mouth every 4 (four) hours as needed for pain 10 tablet 05/18/2024 4 oxyCODONE (ROXICODONE) 5 mg immediate release tabletIndication s:Pain Take 1 tablet (5 mg total) by mouth every 4 (four) hours as needed for pain 10 tablet 05/18/2024 4 oxyCODONE-acetam inophen (PERCOCET) 5-325 mg per tablet TAKE 1 TABLET BY MOUTH EVERY 12 HOURS NEEDED FOR PAIN, SEVERE 02/18/2024 4 polyethylene glycol (MIRALAX) 17 gram/dose bulk powderIndication s:constipation Take 17 g by mouth daily 116 g 05/18/2024 4 documented as of this encounter Discharge Disposition Disposition Code Departure Means Destination Discharge to home or self care documented in this encounter Plan of Treatment [...] Procedure Name Priority Date/Time Associated Diagnosis Comments CT BODY OUTSIDE REFERENCE Routine 02/19/2024 10:14 PM CDT documented in this encounter Results * CT Body Outside Reference (02/19/2024 10:14 PM CDT) Impressions [facility] - 02/19/2024 10:14 PM CDT These images are for Reference purposes only and have not been reviewed by [facility] Radiology. ??There will be no report generated by a [facility] Radiologist. Narrative [facility] - 02/19/2024 10:14 PM CDT EXAMINATION: ??Images For Reference Purposes Only us Sabino Luke MD IMG CT PROCEDURES Final Result [facility] documented in this encounter Visit Diagnoses Not on filedocumented in this encounter Care Teams Carpet Renovator Relationship Specialty Start Date End Date Rosibel Muse MD [facility] [place] [address] PCP - General Family Medicine 03/22/23 05/11/24 Sabino Luke MD [address] [place] [address] Referring Physician General Surgery 12/06/23 documented as of this encounter
--- OUTSIDE RECORDS SUMMARY | 2024-08-17 08:47 | XMS_ITS | Encounter Summary ---
Author Organization [facility] Home Care Servic es Address [address] [place] [address] Phone Care Team Providers Care Fox Raiser Name Role Phone No, Physician Primary Care Provider [phone] Encounter Details Date Type Department Care Team (Late st Contact Info) Description 01/08/2022 Telephone [facility] Services [address] [place] [address] Aneta Orellana Social History Tobacco Use Types Packs/Day Years Used Date Smoking Tobacco: Former Smokeless Tobacco: Never Alcohol Use Standard Drinks/Week Comments No 0 (1 standard drink = 0.6 oz pur e alcohol) Comments No Sex and Gender Information Value Date Recorded Sex Assigned at Not on file 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 documented in this encounter Plan of Treatment Not on file documented as of this encounter Goals Goal Patient Goal Type Associated Problems Recent Progress Patient-Stated? Author Reduce the likelihood of falling Lifestyle No Jeanne Bucio Note: Below are four things you can [...] on stairs Contact your local community or [facility] for information on exercise, fall prevention programs, or options for improving home safety. documented as of this encounter Visit Diagnoses Not on filedocumented in this encounter Care Teams Fox Raiser Relationship Specialty Start Date End Date No, Physician PCP - General 04/24/18 03/21/23 documented as of this encounter
--- OUTSIDE RECORDS SUMMARY | 2024-08-17 08:47 | XMS_ITS | Encounter Summary ---
Author Organization [facility] Healthcare Address [address] [place] [address] Care Team Providers Care Rate Engineer Name Role Phone No, Physician Primary Care Provider [phone] Reason for Referral * Diagnostic Imaging (Routine) - Closed Specialty Diagnoses / Procedures Referred By Contac t Referred To Contact Diagnoses Spinal stenosis of lumbar region without neurogenic claudication Left lumbar radiculitis Procedures Imaging Lumbar/Caudal Epidural Steroid INJ ([id number]) [place] [id number] [facility] [address] [address] [place] [address] Phone: tel: fax: [facility] [address] [address] Phone: tel: fax: Referral ID Status Reason Start Date Expiration Date Visits Re quested Visits Authorized [id number] Closed 12/26/2022 01/25/2024 1 1 Encounter Details Date Type Department Care Team (Late st Contact Info) Description 12/26/[address] 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 documented as of this encounter Results * Imaging Lumbar/Caudal Epidural Steroid INJ (68598) (01/02/2023 7:38 AM CDT) Narrative [facility] - 01/02/2023 7:38 AM CDT The images from this study are not interpreted by Radiology. ??Please refer to the physician's procedure / OR operative note. us Erasmo Luna MD IMG PAIN MGMT PROCEDU RES Final Result RAD_PACS[facility] documented in this encounter Visit Diagnoses Diagnosis Spinal stenosis of lumbar region without neurogenic claudication- Primary Left lumbar radiculitis Spinal stenosis of lumbar region without neurogenic claudication Left lumbar radiculitis documented in this encounter Care Teams Rate Engineer Relationship Specialty Start Date End Date No, Physician PCP - General 04/24/18 03/21/23 documented as of this encounter
--- OUTSIDE RECORDS SUMMARY | 2024-08-17 08:47 | XMS_ITS | Encounter Summary ---
Author Organization [facility] Healthcare Address [address] [place] [address] Care Team Providers Care Furnace Mason Name Role Phone Rosibel Muse MD Primary Care Provider [phone] Reason for Visit * Reason Comments Follow-up Back Pain Encounter Details Date Type Department Care Team (Latest Contact Info) Description 03/25/2023 10:51 AM CDT - 03/25/2023 11:59 PM CDT Hospital Encounter [facility] [address] [place] [address] [place] [address] [facility] [address] [place] [address] Left lumbar radiculitis (Primary Dx); Spinal stenosis of lumbar region without neurogenic claudication Discharge Disposition: Discharge to home or self [...] on file 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 Gender Identity Not on file Sexual Orientation Not on file Occupation Industry Job Start Date Job End Date Disability Not on file Not on file Not on file documented as of this encounter Last Filed Vital Signs Vital Sign Reading Time Taken Comments Blood Pressure 116/87 03/25/2023 11:08 AM CDT Pulse 118 03/25/2023 11:08 AM CDT Temperature - - Respiratory Rate 16 03/25/2023 11:08 AM CDT Oxygen Saturation 99% 03/25/2023 11:08 AM CDT Inhaled Oxygen Concentration - - Weight - - Height - - Body Mass Index - - documented in this encounter Medications at Time of Discharge albuterol HFA (PROVENTIL HFA,VENTOLIN HFA,PROAIR HFA) 90 mcg/actuation inhalerIndicatio ns:Acute Asthma Attack Inhale 2 puffs every 6 (six) hours as needed for wheezing 4 ALPRAZolam (XANAX) 1 mg tabletIndication s:anxiety Take 1 tablet (1 mg total) by mouth nightly as needed for anxiety 4 cyanocobalamin, vitamin B-12, 5,000 mcg/mL dropsIndications :Prevention of Vitamin B12 [address] 5,000 mcg under the tongue rn house supervisor before breakfast 4 fluticasone propionate (FLONASE) 50 mcg/actuation nasal sprayIndications :Allergic Rhinitis Administer 1 spray into each nostril daily as needed for allergies 4 hydroCHLOROthiaz herman (HYDRODIURIL) 25 mg tabletIndication s:hypertension Take 1 tablet (25 mg total) by mouth rn house supervisor before breakfast 4 iron,carb/vit C/vit B12/folic (IRON 100 PLUS ORAL)Indications :supplement Take 100 mg by mouth rn house supervisor before breakfast 4 potassium chloride ER 20 [...] in this encounter Progress Notes * Kin Schafer NP - 03/25/2023 11:15 AM CDT Patient Name: Krissy Oneal : 1955 Today's Date: 03/25/2023 PCP: Rosibel Muse MD Referring: Erasmo Iftikhar Luna* Chief Complaint Patient presents with Follow-up Back Pain HPI Patient returned for follow-up regarding her chronic ongoing lower back pain in left lower extremity pain. She initially received lumbar epidural steroid injection which provided some benefit. Most recently she had a transforaminal injection on left lower lumbar spine at L4/L5 and reports significant improvement with her lower extremity pain. Her pain is very minimal and her activities of daily living and her function is greatly improved. She is very happy. Allergies Allergen Reactions Iv Contrast Dye [Iodinated [...] Father Cancer Brother HOME MEDICATIONS : albuterol HFA (PROVENTIL HFA,VENTOLIN HFA,PROAIR HFA) 90 mcg/actuation inhaler ALPRAZolam (XANAX) 1 mg tablet amLODIPine (NORVASC) 5 mg tablet budesonide-formoteroL (SYMBICORT) 160-4.5 mcg/actuation inhaler fluticasone propionate (FLONASE) 50 mcg/actuation nasal spray hydroCHLOROthiazide (HYDRODIURIL) 25 mg tablet iron,carb/vit C/vit B12/folic (IRON 100 PLUS ORAL) potassium chloride ER 20 mEq CR tablet sertraline (ZOLOFT) 50 mg tablet simvastatin (ZOCOR) 20 mg tablet albuterol (PROVENTIL,VENTOLIN) 2.5 mg /3 mL (0.083 %) nebulizer solution ciclesonide (Alvesco) 80 mcg/actuation inhaler cyanocobalamin, vitamin B-12, 5,000 mcg/mL drops cyclobenzaprine (FLEXERIL) 10 mg tablet doxycycline (doxycycline hyclate) 100 mg capsule hydrOXYzine (ATARAX) 25 mg tablet ibuprofen (ADVIL,MOTRIN) 800 mg tablet losartan (COZAAR) 100 mg tablet meloxicam (MOBIC) 15 mg tablet pancrelipase (Creon) 12,000 units of lipase capsule quinapril (ACCUPRIL) 40 mg tablet Review of Systems Review of Systems Musculoskeletal: Positive for arthralgias, back pain, joint swelling and myalgias. Physical Exam Vitals: 03/25/23 1108 BP: 116/87 BP Location: Right arm Patient Position: Sitting Pulse: 118 Resp: 16 SpO2: 99% There is no height or weight on file to calculate BMI. Physical Exam Vitals and nursing note reviewed. Constitutional: General: She is not in acute distress. Appearance: Normal appearance. She is well-developed. She is not diaphoretic. HENT: Head: Normocephalic and atraumatic. Eyes: Conjunctiva/sclera: Conjunctivae normal. Musculoskeletal: General: No tenderness or deformity. Right lower leg: No edema. Left lower leg: No edema. Comments: Straight leg raise negative, fabere Mp test negative. Skin: General: Skin is warm and dry. Neurological: General: No focal deficit present. Mental Status: She is alert and oriented to person, place, and time. Sensory: No sensory deficit. Motor: No weakness or abnormal muscle tone. Coordination: Coordination normal. Deep Tendon Reflexes: Reflexes normal. Comments: Patient stand on toes and heels without difficulty. Manual muscle testing reveals no noted weakness. Psychiatric: Mood and Affect: Mood normal. Behavior: Behavior normal. Thought Content: Thought content normal. Judgment: Judgment normal. Assessment Problem List Neuro Spinal stenosis of lumbar region without neurogenic claudication Left lumbar radiculitis - Primary Plan Pre-hypertension/Hypertension: The patient has been informed [...] try weight loss and exercise for management. Patient greatly improved symptomatic we and functionally. She is very happy with her status and herexam is unremarkable. She will return on as needed basis. This dictation was performed using M*Modal dictation. There may be some market development manager variances which are not appreciated or corrected in this note. Cosigned by Erasmo Luna MD at 03/25/2023 4:53 PM CDT documented in this encounter Miscellaneous Notes * Addendum Note - Roula Charles RN - 03/25/2023 11:15 AM CDTEncounter addended by: Roula Charles RN on: 03/25/2023 2:20 PM Actions taken: Charge Capture section accepted documented in this encounter Plan of [...] as of this encounter Visit Diagnoses Diagnosis Left lumbar radiculitis- Primary Spinal stenosis of lumbar region without neurogenic claudication documented in this encounter Historical Medications * This list may reflect changes made after this encounter. iron,carb/vit C/vit B12/folic (IRON 100 PLUS ORAL)Indications :supplement Take 100 mg by mouth rn house supervisor before breakfast 4 cyanocobalamin, vitamin B-12, 5,000 mcg/mL dropsIndications :Prevention of Vitamin B[address] 5,000 mcg under the tongue rn house supervisor before breakfast 4 potassium chloride ER 20 mEq CR tabletIndication s:supplement Take 1 tablet (20 mEq total) by mouth every other day 01/08/2023 4 albuterol HFA (PROVENTIL HFA,VENTOLIN HFA,PROAIR HFA) 90 mcg/actuation inhalerIndicatio ns:Acute Asthma Attack Inhale 2 puffs every 6 (six) hours as needed for wheezing 4 added in this encounter Care Teams Furnace Mason Relationship Specialty Start Date End Date Rosibel Muse MD [facility] [place] [address] PCP - General Family Medicine 03/22/23 05/11/24 documented as of this encounter
--- OUTSIDE RECORDS SUMMARY | 2024-08-17 08:47 | XMS_ITS | Encounter Summary ---
Author Organization [facility] Address [address] [place] [address] Phone Care Team Providers Care Customer Sales Consultant Name Role Phone Rosibel Muse MD Primary Care Provider [phone] Sabino Luke MD Unavailable [phone] Encounter Details Date Type Department Care Team (Late st Contact Info) Description 05/08/2024 Telephone [facility] Advanced Medicine ([facility]) - [facility] Minimally Invasive Surgery [address] [place] [address] Advanced Medicine 12th Floor, [place] [address] Vivian Eisenberg Social History Tobacco Use Types Packs/Day Years [...] on file 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 Advised nothing to eat or drink after midnight other than 0800 12-16 ounces of light color Gatorade between 5586-8244 am and have itfinished by their arrival to the hospital. I reminded them to bathe with Hibiclens the night beforeand morning of surgery and to sleep on clean linens the night before. documented in this encounter Plan of Treatment [...] on filedocumented in this encounter Care Teams Customer Sales Consultant Relationship Specialty Start Date End Date Rosibel Muse MD [address] [place] [address] [place] [address] PCP - General Family Medicine 03/22/23 05/11/24 Sabino Luke MD [facility] [address] [place] [address] Referring Physician General Surgery 12/06/23 documented as of this encounter
--- OUTSIDE RECORDS SUMMARY | 2024-08-17 08:47 | XMS_ITS | Encounter Summary ---
Author Organization [facility] Healthcare Address [address] [place] [address] Care Team Providers Care Technical Staff Assistant Name Role Phone Rosibel Muse MD Primary Care Provider [phone] Sabino Luke MD Unavailable [phone] Reason for Visit * Auth/Cert Specialty Diagnoses / Procedures Referred By Divina t Referred To Contact Diagnoses Incarcerated incisional hernia Incarcerated incisional hernia [K43.0] Procedures [place] RPR AA HERNIA 1ST > 10 CM NCRC8/STRANGULATED [place] MUSC MYOCUTANEOUS/FASCIOCUTANEOUS FLAP TRUNK REPAIR INCISIONAL HERNIA RECONSTRUCTION ABDOMINAL WALL Referral ID Status Reason Start Date Expiration Date Visits Re quested Visits Authorized [id number] 1 1 Encounter Details Date Type Department Care Team (Late st Contact Info) Description 05/11/2024 1:15 PM CDT - 05/11/2024 6:30 PM CDT Surgery [facility] Operating Room [address] [place] [address] Sabino Luke MD [address] [place] [address] REPAIR INCISIONAL HERNIA Surgery Details Date/Time Status Location OR Service Patient Class Case Class Case Type Trauma Case? 05/11/2024 1:15 PM Posted [facility] OR POD 1 331 Minimally Invasive Surgery Surgery Admit Elective Panel 1 Procedure LRB Anes Op Region Wound Class Comments REPAIR INCISIONAL HERNIA N/A General Abdomen Class I - Clean RECONSTRUCTION ABDOMINAL WALL N/A General Abdomen Class I - Clean Surgeon Surgeon Role Service Panel Sabino Luke MD Primary Minimally Invas imani Surgery 1 Roverto Merino MD Fellow Minimally Invas imani Surgery 1 Juliann Le MD Resident - Assisting General Surgery [address] 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 Gender Identity Not on file Sexual Orientation Not on file Occupation Industry Job Start Date Job End Date Disability Not on file Not on file Not on file documented as of this encounter Last Filed Vital Signs Vital Sign Reading Time Taken Comments Blood Pressure 128/82 05/11/2024 6:30 PM CDT Pulse 81 05/11/2024 6:30 PM CDT Temperature 36.6 ??C (97.9 ??F) 05/11/2024 6:30 PM CD T Respiratory Rate 16 05/11/2024 6:30 PM CDT Oxygen Saturation 99% 05/11/2024 6:30 PM CDT Inhaled Oxygen Concentration - - Weight - - Height - - Body Mass Index - - documented in this encounter Discharge Summaries * Hope Brito NP - 05/19/2024 8:18 AM CDT Inpatient Discharge Summary BRIEF OVERVIEW Admitting Provider: Sabino Luke MD Discharge Provider: Sabino Luke MD Primary Care Physician at Discharge: Kathya Orona DO [phone] Admission Date: 05/11/2024 Discharge Date: 05/19/2024 Primary [...] See the new instructions. Iron 100 Plus 024-158-41-1 bu-eg-qjp-mg tablet Take 1 tablet/chew tab by mouth php website developer before breakfast Generic drug: iron-vit C-vit P92-hvipw acid What changed: medication strength how much [...] 1 tablet (10 mg total) by mouth php website developer before breakfast Commonly known as: NORVASC cyanocobalamin (vitamin B-12) 5,000 mcg/mL drops Place 5,000 mcg under the tongue php website developer before breakfast cyclobenzaprine 10 mg tablet Take 1 tablet (10 mg total) by mouth 2 (two) times a day as needed for muscle spasms Commonly known as: FLEXERIL dicyclomine 20 mg tablet Take 1 tablet (20 mg total) by mouth 2 (two) times a day Commonly known as: BENTYL Farxiga 10 mg tablet Take 1 tablet (10 mg total) by mouth php website developer before breakfast Generic drug: dapagliflozin propanediol fluticasone propionate 50 mcg/actuation nasal spray Administer 1 spray into each nostril daily as needed for allergies Commonly known as: FLONASE hydroCHLOROthiazide 25 mg tablet Take 1 tablet (25 mg total) by mouth php website developer before breakfast Commonly known as: HYDRODIURIL metFORMIN [...] Center 05/27/2024 3:15 PM Sabino Luke MD [facility] [id number] Cosigned by Sabino Luke [...] 1 tablet (10 mg total) by mouth php website developer before breakfast 30 tablet 05/18/2024 budesonide-formo teroL [...] 1 tablet (10 mg total) by mouth php website developer before breakfast 30 tablet 05/18/2024 fluticasone propionate (FLONASE) 50 mcg/actuation nasal sprayIndications :Allergic Rhinitis Administer 1 spray into each nostril daily as needed for allergies 1 each 05/18/2024 hydroCHLOROthiaz herman (HYDRODIURIL) 25 mg tabletIndication s:hypertension Take 1 tablet (25 mg total) by mouth php website developer before breakfast 30 tablet 05/18/2024 hydrOXYzine (ATARAX) [...] Deficiency Place 5,000 mcg under the tongue php website developer before breakfast 59 mL 05/18/2024 4 iron-vit C-vit A71-ogypn acid (Iron 100 Plus) [phone] nj-ly-rao-mg tabletIndication s:supplement Take 1 tablet/chew tab by mouth php website developer before breakfast 30 tablet 05/18/2024 4 potassium [...] 1 tablet (25 mg total) by mouth php website developer before breakfast 30 tablet 05/18/2024 cyclobenzaprine (FLEXERIL) 10 mg tabletIndications: Muscle Spasm Take 1 tablet (10 mg total) by mouth 2 (two) times a day as needed for muscle spasms 30 tablet 05/18/2024 amLODIPine (NORVASC) 10 mg tabletIndications: hypertension Take 1 tablet (10 mg total) by mouth php website developer before breakfast 30 tablet 05/18/2024 albuterol HFA [...] 1 tablet (10 mg total) by mouth php website developer before breakfast 30 tablet 05/18/2024 dicyclomine (BENTYL) [...] day 15 tablet 05/18/2024 4 iron-vit C-vit K03-cpllj acid (Iron 100 Plus) [phone] ix-xs-dsb-mg tabletIndications: supplement Take 1 tablet/chew tab by mouth php website developer before breakfast 30 tablet 05/18/2024 4 cyanocobalamin, vitamin B-12, 5,000 mcg/mL dropsIndications:P revention of Vitamin B12 Deficiency Place 5,000 mcg under the tongue php website developer before breakfast 59 mL 05/18/2024 4 ALPRAZolam [...] Departure Means Destination Comment s Discharge to [facility] ([place], [place]) documented in this encounter Progress Notes * Germaine Cao RN - 05/19/2024 10:54 AM CDT 05/19/24 1054 Communications Important Message from Medicare notice given to patient? Yes YOUNG letter given? Not Applicable IM letter completed with patient/shipping services sales representative at bedside. Patient/shipping services sales representative were informed ofthe planned discharge date, the date the beneficiary's financial liability begins, the beneficiary's appeal rights, and how and when to initiate an appeal. Patient/shipping services sales representative were provided a copy of the IM letter and IM letter was placed in unit???s designated medical record bin to be uploaded into the patient???s chart. * Germaine Cao RN - 05/19/2024 10:54 AM CDT 05/19/24 1051 Discharge Summary Discharge Disposition correction facility (short term care) Specify Facility [facility] Facility Contact Number Mary Jo [phone]Hereah Stock Facility Attending Contact Number Discharge Records Transfer Form Completed Recommended Discharge Level of Care correction facility (short term care) Actual Discharge Level of Care correction facility (short term care) Does Actual Level of Care Match Care Team Recommendation? Yes Post Acute Care Plan Home Care Services N/A OP Services N/A DME N/A Post Acute Care Facility Yes Referral Status Accepted Accepted Post Acute Care Location and Contact [facility] [address] [place] [address]/ [place] Jo [phone] Accepted Post Acute Care Discharge Additional Assistance [...] at this time. [facility] CM spoke with the patient/family, [...] Yee MD - 05/19/2024 6:38 AM CDT [facility] Minimally Invasive Surgery Daily Progress Note SUBJECTIVE: [...] s/p open AWR w/ B/L TAR on 9/30 10/8: Remove JAIME drains. Plan to discharge to [...] MD Plastic & Reconstructive Surgery Resident, PGY1 [facility] in [facility] Cosigned by Sabino Luke MD at 05/20/2024 5:51 AM CDT Associated attestation - Sabino Luke MD - 05/20/2024 5:51 AM CDT The resident/fellow saw and examined the patient, we discussed their findings, and I am in agreement with the plan based on the discussion with the resident/fellow. I did not personally examine the patient. * Yaw Yee MD - 05/18/2024 6:01 AM CDT [facility] Minimally Invasive Surgery Daily Progress Note SUBJECTIVE: Overnight Events: No acute events overnight Interval History: Patient remains stable. Patient is having appropriate post-surgical pain that is well controlled. No complaints of N/V. BMx2 yesterday. Patient has been ambulating without concern. EKG + CXR iso tachycardia unremarkable. She tolerated her carb consistent diet without concern. Jaeemains tachycardic but stable on RA. OBJECTIVE: Vitals [...] MD Plastic & Reconstructive Surgery Resident, PGY1 [facility] in [facility] Cosigned by Sabino Luke MD at 05/18/2024 [...] Yee MD - 05/17/2024 9:34 AM CDT [facility] Minimally Invasive Surgery Daily Progress Note SUBJECTIVE: [...] on RNF, will dc to SNF per PTLUCIO (-) for placement Patient d/w Attending Surgeon Dr Smita Yee MD Plastic & Reconstructive Surgery Resident, PGY1 [facility] in [facility] Cosigned by Alonso Conroy MD at 05/19/2024 [...] scan. Alonso Conroy MD Minimally Invasive Surgery [facility] [employer] * Nancy Llamas MD - 05/16/2024 11:52 AM CDT [facility] Minimally Invasive Surgery Daily Progress Note SUBJECTIVE: [...] degrees Pulse: 106 99 117 105 Resp: Temp: 36.3 ??C (97.3 ??F) 36.5 ??C [...] studies available. ASSESSMENT/PLAN: 68 y.o. F with PSYCHIATRICx Whipple, HLD, HTN, s/p open AWR w/ B/L TAR on 05/11 10/5: Now on RA, AROBF. Maintain FLD - [...] meantime. Alonso Conroy MD Minimally Invasive Surgery [facility] * Bessie Menjivar, PT - 05/15/2024 1:00 [...] treatment team and contact the PT or SUPERVISOR FILES currently assigned to this patient. If a physical therapy clinician is not assigned to this patient, please call [phone]. 05/15/24 1300 PT Last Visit Session Type [...] this the discharge summary Recommendation/Plan PT Recommendation/Plan [facility] Facility Patient at high risk for Falls;Readmission;Injury [...] stand sba 05/12/24 05/26/24 -- * Paula Andersen, JESSICA - 05/15/2024 9:23 AM CDT Nena Oliveros called, spoke to Bessy, unable to accept patient. Addendum 10:45- Spoke to patient and daughter at bedside, additional referrals sent to [facility]. Addendum: 11:34- Mary Jo with [facility], [place], [place] called [phone]) to see if they had reviewed referral. She will review and call CM back today. * Yaw Yee MD - 05/15/2024 8:39 AM CDT [facility] Minimally Invasive Surgery Daily Progress Note SUBJECTIVE: [...] completed shifts: In: 1830 [P.O.:1820; I.V.:10] Out: 0 [Urine:2049; Drains:380] Physical Exam: General NAD, awake, [...] treatment team and contact the PT or SUPERVISOR FILES currently assigned to this patient. If a physical therapy clinician is not assigned to this patient, please call [phone]. 05/14/24 0902 PT Last Visit Session Type [...] Contact guard Static Standing-Comment/# of Minutes steadyinga mihirthelma sa fety Dynamic Standing Balance Dynamic Standing-Balance Support Bilateral upper extremity supported (WW) Dynamic Standing-Balance (dynamic gait) Dynamic Standing-Standing Surface Floor Dynamic Standing-Level of Assistance Contact guard Dynamic Standing-Comments steadying ghassanthelma patterson sa fety Bed Mobility Bed Mobility No [...] Comments update dc rec Recommendation/Plan PT Recommendation/Plan [facility] Facility Patient at high risk for Falls;Readmission;Injury [...] Next Appointment 05/15/24 Time Calculation Start Time 09 Stop Time 0930 Time Calculation (min) 28 min Multi-Disciplinary Problems [...] not assigned to this patient, please call [phone]. 05/14/24 0804 General Session Type Treatment OT [...] this the discharge summary Recommendation/Plan OT Recommendation [facility] Facility Patient at high risk for Falls;Readmission;Injury [...] Next Appointment 05/18/24 Time Calculation Start Time 08 Stop Time 830 Time Calculation (min) 27 [...] Yee MD - 05/14/2024 7:10 AM CDT [facility] Minimally Invasive Surgery Daily Progress Note SUBJECTIVE: [...] completed shifts: In: 2389.3 [P.O.:956; I.V.:1433.3] Out: 1970 [Urine:1400; Drains:570] Physical Exam: General NAD, awake, [...] is well controlled on current regimen. Continue BLOG WRITER CV - Remains hemodynamically stable. Continue monitoring, [...] Yee MD - 05/13/2024 11:01 AM CDT [facility] Minimally Invasive Surgery Daily Progress Note SUBJECTIVE: [...] Min: 91 % Max: 96 % Vitals: 05/12/24201405/12/24 2340 05/13/24 0415 05/13/24 0827 BP: 143/91 [...] completed shifts: In: 4886.7 [P.O.:1420; I.V.:3466.7] Out: 1877 [Urine:1185; Drains:693] Physical Exam: General NAD, awake, [...] 05/13: ADAT -> full liquids. Transition from BLOG WRITER to oral pain regiment.. Restarted home HCTZ 25mgqAM. Discontinue wiggins. Neuro/Pain - Pain is well controlled on current regimen. Continue BLOG WRITER CV - Remains hemodynamically stable. Continue monitoring, [...] not assigned to this patient, please call [phone]. 05/12/24 1446 General Chart Reviewed Yes Session Type Evaluation [...] Equipment-Currently Using None Prior Function Level of [place] Independent with ADLs;Independent functional transfers;Independent with ambulation [...] name and address after me Lionel Camarena [address] [place] [address] Without looking at the clock, tell me [...] this the discharge summary Recommendation/Plan OT Recommendation [facility] Facility Patient at high risk for Falls;Injury [...] treatment team and contact the PT or SUPERVISOR FILES currently assigned to this patient. If a physical therapy clinician is not assigned to this patient, please call [phone]. 05/12/24 0858 General Chart Reviewed Yes Session Type Evaluation PT Received On 05/12/24 Safe Environment Arm band checked;Patient found in supine;Session completed bedside;Gait belt utilized for all out of bed mobility Subjective Agreeable to Therapy Family/Caregiver Present No Physical Therapy-Patient Goal to go home Precautions Precautions Fall risk;Abdominal Braces/Orthoses Other (abdominal binder) Precaution Comments Instructed in abodminal precuations. Demoes understnading with Cues. Will benefit from [id number] of educaiton Home Living Type of Home House Home Layout One level;Able to live on main level with bedroom/bathroom;Basement Home Access Stairs to enter with rails Entrance Stairs-Rails Both Entrance Stairs-Number of Steps 10 Bathroom Equipment Other (Comment) (none) Home Mobility Equipment-Available Wheeled walker;Single point cane;Scooter Home Mobility Equipment-Currently Using None Prior Function Level of [place] Independent with ADLs;Independent with ambulation;Independent functional transfers;Independent with homemaking with ambulation Lives With Spouse Receives Help From Spouse/Significant other;Family;batch attendant (dtr paid cg 4 hrs/day, 4 [...] with Outstretched Arm While Standing 0 9. Cadmium Plater Object from Floor from a Standing Position [...] of Assistance Minimum assistance Dynamic Standing-Comments steayding assistthelma s afety Bed Mobility 1 Bed Mobility From 1 [...] sitting. returned to supine 2/2 to this. [employer] made aware Stairs Stairs No RUE Assessment [...] Yee MD - 05/12/2024 6:42 AM CDT [facility] Minimally Invasive Surgery Daily Progress Note SUBJECTIVE: [...] AWR w/ B/L TAR on 05/11 05/12: ADATRHONDA wiggins in PM if ambulating appropriately, 1L LR bolus for low UOP Neuro/Pain - Pain is well controlled on current regimen. Continue BLOG WRITER CV - Remains hemodynamically stable. Continue monitoring, [...] and Planning Preoperative Evaluation Record Evaluation type/location: [facility] Planned procedure site: [facility]T OR (Pod 1) Date: 04/16/24 Anesthesia [...] Pre-Procedural Assessment performedby the above primary evaluating [employer], who is currently in the CPAP [employer] Orientation interval. Signed by: Paige Guaman NP [...] elias Softclix Lancets lancets -- 04/06/24 -- Ramiro Sandoval MD albuterol HFA (PROVENTIL HFA,VENTOLIN HFA,PROAIR HFA) 90 mcg/actuation inhaler Past Month -- -- ProviderRamiro MD Alcohol Prep Pads pads, medicated -- [...] Goals for the Shift: pain control, VSS,I&Os Cake Knocker Patient Centered Goal for Treatment: Safe discharge planning Summary: * Plan of Care - Raquel Shipman RN - 05/19/2024 6:06 AM CDT Goals: Clinical Goals for the Shift: pain control, VSS,I&Os Cake Knocker Patient Centered Goal for Treatment: Safe discharge [...] Goals for the Shift: pain control, VSS,I&Os [facility] Patient Centered Goal for Treatment: Safe discharge planning Summary: * Plan of Care - Germaine Cao RN - 05/18/2024 12:03 PM CDT 05/18/24 1201 Discharge Planning Support System Spouse/Significant Other;Family members Anticipated discharge level of care correction facility (short term care) Does the patient need discharge transport arranged? No (Family to transport home.) Post Acute Care Plan Home Care Services N/A OP Services N/A DME N/A Referral Status Accepted Accepted Post Acute Care Location and Contact Liliya Mchugh [facility] [address] [place] [address]/ Mary Jo [phone] Accepted Post Acute Care CM Progression of Care Update Per Medical Chart/Rounds/IDR: Pt is not medically stable for discharge at this time. ADD: 05/19 Discharge Barriers: None noted Education Needs Identified (plan): Pt to discharge to [facility] when medically stable. Insurance auth has been obtained and is good thru 05/19/24. Accepting MD (Dr.Hereah Stock ) [address], [place] Mary Jo contact ([phone]) Report: [phone] Fax discharge summary: [phone] Fax COVID results: [phone] Pharmacy: [facility] F/U Appointments: To be scheduled. Patient's Identified Problem/Goal Problem:?Ensure acute medical needs are met and that patient has a safe discharge plan. Goal:?Secure a discharge plan that patient/family are agreeable with?and ensure patient has continuum of care. Patient and/or family are agreeable with plan. manager finance will continue to follow and assist with discharge planning as needed. If any further discharge needs arise, please contact the covering business case analyst. * Plan of Care - Stacey Johnson RN - 05/17/2024 7:29 PM CDT Goals: Clinical Goals for the Shift: VSS, pain control, ambulation, JAIME drain care, monitor I&Os, and safety Cake Knocker Patient Centered Goal for Treatment: Safe discharge [...] JAIME drain care, monitor I&Os, and safety [facility] Patient Centered Goal for Treatment: Safe discharge planning Summary: VSS, pain control, ambulation, JAIME drain care, monitor I&Os, and safety. Call light within reach. * Plan of Bartolo - Paige Dow RN - 05/17/2024 11:04 AM CDT Discharge plan discussed with Dr. Yee. Provider said that patient most likely not ready for d/c today; pending respiratory status. CM will continue to follow for discharge needs. For weekend assistance, please contact the on-call weekend business case analyst. * Plan of Care - Stacey Johnson RN - 05/16/2024 7:23 PM CDT Goals: Clinical Goals for the Shift: Monitor VS, I&O, pain control, ambulate, wean o2, have BM. Cake Knocker Patient Centered Goal for Treatment: Safe discharge Summary: Pt progressing towards discharge goals. * Medical Student - Bethanie Alvarez - 05/16/2024 9:58 AM CDT [facility] Minimally Invasive Surgery Daily Progress Note SUBJECTIVE: [...] pain control, ambulate, wean o2, have BM. Cake Knocker Patient Centered Goal for Treatment: Safe discharge [...] pain control, nausea control, drain care, safety [employer]ocker Patient Centered Goal for Treatment: safe discharge [...] RN - 05/15/2024 1:45 PM CDT 05/15/24 1344 Communications Important Message from Medicare notice given to patient? Yes YOUNG letter given? Not Applicable Patient choice (Home Health/Hospice) list given to patient/shipping services sales representative? Not Applicable Fpc Facility list given to patient/shipping services sales representative? Yes Notice of Non-Covered Continued Stay or Hospital Services Given to Patient Not Applicable IM letter completed with patient/shipping services sales representative at bedside. Patient/shipping services sales representative were informed ofthe planned discharge date, the date the beneficiary's financial liability begins, the beneficiary's appeal rights, and how and when to initiate an appeal. Patient/shipping services sales representative were provided a copy of the IM letter and IM letter was placed in unit???s designated medical record bin to be uploaded into the patient???s chart. * Plan of Care - Paula Andersen RN - 05/15/2024 12:46 PM CDT 05/15/24 1244 Discharge Planning Support System Spouse/Significant Other;Family members Anticipated discharge level of care correction facility (short term care) Does the patient need discharge transport arranged? No Post Acute Care Plan Home Care Services N/A OP Services N/A DME N/A Post Acute Care Facility Yes Referral Status Accepted Accepted Post Acute Care Location and Contact [facility] ([phone]) Accepted Post Acute Care Fax Number Fax dc summary to [phone] Per Medical Chart/Rounds/IDR: Patient is not medically ready for discharge, wean oxygen, ambulate, await return of bowel function, pulmonary toilet. ADD: 05/16 Plan/referrals made/in place: [place], [place] accepted, pending insurance authorization. Addendum: 13:43- Insurance authorization obtained [id number] 05/15-05/19 Support following discharge: Facility staff and family Transportation: Family F/U Appointments: per surgical team Plan for weekend discharge: Yes (auth obtained until 05/19), waiting on flatus, COVID test [facility] (facility ) Accepting (Dr.Hereah Stock ) [address], [place] Mary Jo contact for weekend ([phone]) Report: [phone] Fax discharge summary: [phone] Fax COVID results: [phone] Pharmacy: [facility] Please send narcotic script (if ordered) electronically to [facility] pharmacy and also send hard copy in chart please. For weekend assistance, please check the treatment team in Epic for the assigned business case analyst or contact the weekend Case Management phone. * Plan of Care - Yani Marlow RN - 05/15/2024 11:41 AM CDT Goals: Clinical Goals for the Shift: VSS, pain control, nausea/vomiting control, drain care, ambulate safely [facility] Patient Centered Goal for Treatment: Safe discharge [...] for the Shift: VSS, Pain control, Monitor [facility] Patient Centered Goal for Treatment: Safe discharge Summary: * Plan of Care - Jennifer Levi RN - 05/14/2024 2:55 PM CDT 05/14/24 3734 Discharge Planning Support System Spouse/Significant Other Anticipated discharge level of care correction facility (short term care) Does the patient [...] Referrals: NO ACCEPTING SNFS at this time [facility] - no beds [facility] - declined [facility] = UNDER REVIEW HH - proactive referral sent (still need ORDER) [facility] Contact Mariela Accepted for soc 05/16 for PT and OT Support at discharge: spouse Karina [phone] Discharge Barriers: awaiting return of bowel function F/U Appointments: Smita 05/27 Patient's Identified Problem/Goal Problem:?Ensure acute medical needs are met and that patient has a safe discharge plan. Goal:?Secure a discharge plan that patient/family are agreeable with?and ensure patient has continuum of care. Patient and/or family are agreeable with plan. manager finance will continue to follow and assist with discharge planning as needed. If any further discharge needs arise, please contact the covering business case analyst. * ECIN Note - Jennifer Levi RN - 05/14/2024 2:40 PM CDT Images from the original note were not included. Patient Information: OT Eval and Treat Last 72 Hours OT Evaluation Row Name 05/12/24 2891 Chart Reviewed Yes -MH (r) CK (c) Session Type Evaluation -MH (r) CK (c) OT Received On 05/12/24 - (r) CK (c) Safe Environment Arm band checked;Patient found sitting at edge of bed;Gait belt not utilized, see comment dt surgical incision - (r) CK (c) Subjective Agreeable to Therapy - (r) CK (c) Family/Caregiver Present Yes - (r) CK (c) Occupational Therapy-Patient Goal Agreeable to POC - (r) CK (c) Precautions Abdominal;Fall risk - (r) CK (c) Braces/Orthoses Other abdominal binder - (r) CK (c) Precaution Comments Pt. education on abdominal precautions. Pt verbalized understanding - (r) CK (c) Type of Home House - (r) CK (c) Home Layout One level - (r) CK (c) Home Access Stairs to enter with rails - (r) CK (c) Entrance Stairs-Rails Both - (r) CK (c) Entrance Stairs-Number of Steps 10 - (r) CK (c) Bathroom Shower/Tub Tub/shower unit - (r) CK (c) Bathroom Toilet Standard - (r) CK (c) Home Mobility Equipment-Available Walker;Single point cane - (r) CK (c) Home Mobility Equipment-Currently Using None uses cart for community outings - (r) CK (c) Home ADL Equipment-Available None - (r) CK (c) Home ADL Equipment-Currently Using None - (r) CK (c) Level of [place] Independent with ADLs;Independent functional transfers;Independent with ambulation - (r) CK (c) Lives With Spouse - (r) CK (c) Receives Help From Spouse/Significant other in mornings, daughter/sister as needed - (r) CK (c) Driving Yes - (r) CK (c) ADL Assistance Independent - [...] CK (c) LE Dressing: Where assessed Sitting -MH (r) CK (c) LE Dressing: Level of [...] -MH (r) CK (c) Pain Score 8 - [...] name and address after me Lionel Camarena [address] [place] [address] -MH (r) CK (c) Without looking at [...] summary - (r) CK (c) OT Recommendation [facility] Facility - (r) CK (c) Patient at [...] Name Effective Dates Viridiana Hearn 05/09/24 - Manisha Cortes OT 05/10/22 - OT Treatment Row [...] this the discharge summary -EP OT Recommendation [facility]pc Facility -EP Patient at high risk for [...] - Next Appointment 05/18/24 -EP Start Time 08 -EP Stop Time 830 -EP Time Calculation [...] Demoes understnading with Cues. Will benefit from [id number] of educaiton -BE Type of Home House -BE Home Layout One level;Able to live on main level with bedroom/bathroom;Basement -BE Home Access Stairs to enter with rails -BE Entrance Stairs-Rails Both -BE Entrance Stairs-Number of Steps 10 -BE Bathroom Equipment Other (Comment) none -BE Home Mobility Equipment-Available Wheeled walker;Single point cane;Scooter -BE Home Mobility Equipment-Currently Using None -BE Level of [place] Independent with ADLs;Independent with ambulation;Independent functional transfers;Independent with homemaking with ambulation -BE Lives With Spouse -BE Receives Help From Spouse/Significant other;Family;batch attendant dtr paid cg 4 hrs/day, 4day/wk, [...] Outstretched Arm While Standing 0 -BE 9. Cadmium Plater Object from Floor from a Standing Position [...] Minimum assistance -BE Dynamic Standing-Comments steayding assist, balnce,s afety -BE Bed Mobility From 1 Supine [...] Assist -BE Trials/Comments 1 assist for force nguyeniotconnie tinsley,flaca teayding assist, balance intiiatlly upon stanidng, performed x 3 reps -BE Distance (ft) [...] sitting. returned to supine 2/2 to this. [employer] made aware -BE Stairs No -BE RUE [...] guard -BE Static Standing-Comment/# of Minutes steadyinga thelma ash sa fety -BE Dynamic Standing Balance Dynamic Standing-Balance Support Bilateral upper extremity supported WW -BE Dynamic Standing-Balance -- dynamic gait -BE Dynamic Standing-Standing Surface Floor -BE Dynamic Standing-Level of Assistance Contact guard -BE Dynamic Standing-Comments steadying thelma constantino sa fety -BE Bed Mobility Bed Mobility No up in chair at beginning and end of session -BE Transfer 1 Transfer From 1 Sit -BE Transfer Type 1 To and from -BE Transfer to 1 Stand -BE Technique 1 Sit to stand;Stand to sit -BE Transfer Device 1 Wheeled walker -BE Transfer Level of Assistance 1 Contact Guard Assist -BE Trials/Comments 1 steadythelma hutchinsflaca afety -BE Ambulation 1 Distance (ft) 1 [...] update dc rec -BE Recommendation/Plan PT Recommendation/Plan Fpc Facility -BE Patient at high risk for [...] toward goals -BE Time Calculation Start Time 901 -BE Stop Time 929 -BE Time Calculation (min) 28 min -BE User Grove (r) = Recorded By, (t) = Taken By, (c) = Cosigned By Initials Name Effective Dates BE Kriss Angelo, PT 08/22/20 - PT Notes 05/12/2024 10:17 AM Progress Notes signed by Kriss Angelo, PT 05/14/2024 9:39 AM Progress Notes signed by [...] control, nausea/vomiting control, drain care, ambulate safely [employer] Patient Centered Goal for Treatment: Safe discharge * Plan of Care - Myrna Ross RN - 05/13/2024 10:31 PM CDT Goals: Clinical Goals for the Shift: VSS, pain/nausea control, toleration of diet, I&O, drain care, safety. [employer] Patient Centered Goal for Treatment: Safe discharge [...] if not approved may consider dc to snfversus home with Transportation: PENDING Referrals: REHAB -[facility] - Contact Aracelis [phone] SNF - Proactive referrals sent (after review of list and PENDING [facility] - proactive referral sent (still need ORDER) [facility] Contact Mariela Accepted for soc 05/16 for PT and OT Support at discharge: spouse Karina [phone] Discharge Barriers: awaiting return of bowel function F/U Appointments: smita 05/27 Patient's Identified Problem/Goal Problem:?Ensure acute medical needs are met and that patient has a safe discharge plan. Goal:?Secure a discharge plan that patient/family are agreeable with?and ensure patient has continuum of care. Patient and/or family are agreeable with plan. manager finance will continue to follow and assist with discharge planning as needed. If any further discharge needs arise, please contact the covering business case analyst. * ECIN Note - Jennifer Levi RN - 05/13/2024 1:03 PM CDT Images from the original note were not included. Patient Information: OT Eval and Treat Last 72 Hours OT Evaluation Row Name 05/12/24 1442 Chart Reviewed Yes -MH (r) CK (c) [...] (c) Occupational Therapy-Patient Goal Agreeable to POC -MH (r) CK (c) Precautions Abdominal;Fall risk -MH (r) CK (c) Braces/Orthoses Other abdominal binder -MH (r) CK (c) Precaution Comments Pt. education on abdominal precautions. Pt verbalized understanding -MH (r) CK (c) Type of Home House -MH (r) CK (c) Home Layout One level -MH (r) CK (c) Home Access Stairs to enter with rails -MH (r) CK (c) Entrance Stairs-Rails Both -MH (r) CK (c) Entrance Stairs-Number of Steps 10 -MH (r) CK (c) Bathroom Shower/Tub Tub/shower unit -MH (r) CK (c) Bathroom Toilet Standard -MH (r) CK (c) Home Mobility Equipment-Available Walker;Single point cane -MH (r) CK (c) Home Mobility Equipment-Currently Using None uses cart for community outings -MH (r) CK (c) Home ADL Equipment-Available None -MH (r) CK (c) Home ADL Equipment-Currently Using None -MH (r) CK (c) Level of [place] Independent with ADLs;Independent functional transfers;Independent with ambulation -MH (r) CK (c) Lives With Spouse -MH (r) CK (c) Receives Help From Spouse/Significant other in mornings, daughter/sister as needed - (r) CK (c) Driving Yes -MH (r) CK (c) ADL Assistance Independent -MH (r) CK (c) Instrumental ADL (IADL) Assistance Independent - (r) CK (c) Vocational/Occupation Retired -MH (r) CK (c) Fall within the last 6 months No - (r) CK (c) ADLS (WDL) X -MH (r) CK (c) Grooming: Where assessed Other (Comment) Sitting in recliner. Baseline standing -MH (r) CK (c) Grooming: Level of assistance Moderate Assist dt sitting -MH (r) CK (c) LE Dressing: Where assessed Sitting -MH (r) CK (c) LE Dressing: Level of [...] name and address after me Lionel Camarena [address] [place] [address] -MH (r) CK (c) Without looking at [...] -MH (r) CK (c) LUE Assessment WFL - (r) CK (c) Putting on and taking [...] summary - (r) CK (c) OT Recommendation Fpc Facility - (r) CK (c) Patient at [...] (c) OT Frequency during current admission 3-5x/wk -MH (r) CK (c) Treatment/Interventions during current admission ADL/IADL retraining;Balance Training;Bed mobility;Functional activity;Functional mobility training;Functional transfer training;Transfer training - (r) CK (c) OT - Next Appointment 05/13/24 - (r) CK (c) OT - OK to Discharge No -MH (r) CK (c) OT Evaluation Complete Yes -MH (r) CK (c) Start Time 1446 -MH (r) CK (c) Stop Time 1520 - (r) CK (c) Time Calculation (min) 34 min - User [place] (r) = Recorded By, (t) = Taken By, (c) = Cosigned By Initials Name Effective Dates VY Viridiana Heanr 05/09/24 - CK SteffenManisha de dios, RAS 05/10/22 - OT Treatment No documentation. OT Notes Notes from 05/11/24 through 05/13/24 No notes of this type exist for this encounter. * Plan of Care - Teagan Long RN - 05/13/2024 7:54 AM CDT Goals: Clinical Goals for the Shift: Monitor VS, I&O, pain control, up to chair, safety [employer] Patient Centered Goal for Treatment: Safe Discharge [...] care, I&O, tolerations of diet, ambulation, safety. [employer] Patient Centered Goal for Treatment: Safe discharge, toleration of diet. Problem: Medication Goal: Agree to be compliant with medication regime, as prescribed and report medication side effects 05/13/20246 by Myrna Ross RN Outcome: Progressing [...] 05/12/24 0659 05/12/24 0700 - 05/13/24 0659 [phone] Total [phone] 1825-5268 Total Intake (ml) 1300 1300 -- 2600 [...] Orientation: Mid-line Assessments Row Name 05/12/24 0905/11/24201405/11/24 19005/11/24 1830 05/11/24 1800 Dressing Status Intact;Drainage shadowing [...] Closure Unable to assess Dressing in place Herminia -- -- -- Row Name 05/11/24 1740 [...] (Autopopulated from EMR) None found ............filed at 05/12/2024899 History of Falling 0 ............filed at 05/12/2024899 Secondary Diagnosis 15 ............filed at 05/12/2024899 Ambulatory Aids 15 ............filed at 05/12/2024899 Intravenous Therapy/Heparin/Saline Lock 20 ............filed at 05/12/2024899 Gait/Transferring 10 ............filed at 05/12/2024899 Mental Status 0 ............filed at 05/12/2024899 Bee Fall Risk Score 60 ............filed at 05/12/2024899 Vital Signs 05/11 0700 05/12 0659 05/12 [...] Nursing Nutrition None Nursing Mobility Activity 05/12 103 Resting in bed 05/12 101 Resting in bed 05/12 900 Resting in bed 05/12 840 Ambulate in room 05/12 818 Resting in bed 05/12 07 Resting in bed 05/12 0000 Dangle;Ambulate in room;Stand at bedside Patient Assistance 05/12 840 Modified independent, requires aide device or extra time Assistive Device/Equipment Needed 05/12 840 Walker Ambulation Response 05/12 08 Tolerated fairly well (Comment: Per PT, patient experienced dizziness and unsteady gait) 05/12 0000 Tolerated poorly (Comment: Pt felt unsteady) Patient Repositioned 05/12 103 Turn self 05/12 1014 Turn self 05/12 900 Turn self 05/12 08 Turn self 05/12 730 Turn self Bed Position 05/12 1035 HOB 30 05/12 1014 HOB 30 05/12 09 HOB 30 05/12 0840 HOB 30 05/12 0818 HOB < 20 05/12 730 HOB 30 05/11 1900 HOB < 20 05/11 1830 HOB < 20 05/11 1800 HOB < 20 05/11 1740 HOB < 20 Range of Motion 05/12 1035 Active;All extremities 05/12 900 Active;All extremities 05/12 840 Active;All extremities 05/12 730 Active;All extremities Type of Device 05/12 1035 Mechanical compression 05/12 900 Mechanical compression 05/12 840 Mechanical compression 05/12 730 Mechanical compression 05/11 1900 Mechanical compression 05/11 1830 Mechanical compression 05/11 1800 Mechanical compression 05/11 1740 Mechanical compression Mechanical Compression Site 05/12 1035 Bilateral 05/12 900 Bilateral 05/12 840 Bilateral 05/12 730 Bilateral Mechanical Compression Type 05/12 1035 IPC/SCD 05/12 900 IPC/SCD 10/01 0840 IPC/SCD 05/12 730 IPC/SCD Mechanical Compression Status 05/12 1035 On 05/12 0900 On 05/12 0840 On 05/12 730 On , Vitals Info Only Vital Signs 05/11 0659 05/12 0705/12 1131 Most Recent Temp (??C) 36.4 - 37.1 36.7 36.7 (98.1) 05/12 818 Pulse 65 - 95 93 - 120 108 05/12 0850 Resp 11 - 23 20 20 05/12 08 SpO2 (%) 94 - 100 90 - [...] tablet 1,000 mg 1,000 mg oral Q8H [facility] Roverto Merino MD 1,000 mg at1 0548 albuterol HFA [...] mg 10 mg oral Q8H Josselin Read, [employer] 10 mg at 05/12/24 0901 dextrose gel in packet 15 g 15 g oral Q15 Min PRN Roverto eMrino MD Or dextrose (D10W) 10% bolus 250 [...] flush 0.5-20 mL 0.5-20 mL intra-catheter PRN Dixon Merinoley Aamir, MD * ECIN Note - Jennifer Levi [...] Demoes understnading with Cues. Will benefit from [id number] of educaiton -BE Type of Home House -BE Home Layout One level;Able to live on main level with bedroom/bathroom;Basement -BE Home Access Stairs to enter with rails -BE Entrance Stairs-Rails Both -BE Entrance Stairs-Number of Steps 10 -BE Bathroom Equipment Other (Comment) none -BE Home Mobility Equipment-Available Wheeled walker;Single point cane;Scooter -BE Home Mobility Equipment-Currently Using None -BE Level of [place] Independent with ADLs;Independent with ambulation;Independent functional transfers;Independent with homemaking with ambulation -BE Lives With Spouse -BE Receives Help From Spouse/Significant other;Family;batch attendant dtr paid cg 4 hrs/day, 4day/wk, [...] Outstretched Arm While Standing 0 -BE 9. Cadmium Plater Object from Floor from a Standing Position [...] Minimum assistance -BE Dynamic Standing-Comments steayding assist, radhance,s afety -BE Bed Mobility From 1 Supine [...] sitting. returned to supine 2/2 to this. [employer] made aware -BE Stairs No -BE RUE [...] 10:17 AM Progress Notes signed by Kriss Angelo PT * Plan of Care - Jennifer Levi RN - 05/12/2024 11:25 AM CDT Faculty Member noted patient has been recommended for Inpatient Rehab by PT/OT. Faculty Member proactively initiated a referral to [facility] preferred Inpatient Rehab Facility - [facility]. Faculty Member met with the patient/family at bedside to discuss recommendations by therapy and to work on a potential discharge disposition plan. Faculty Member provided education to patient/family on the rehabilitation process. Patient reported she was interested in placement for rehabilitation. manager finance provided a list of additional potential Inpatient Rehab Facility choices to patient and family. Patient and family selected the following choices (preference order): [facility] manager finance sent out additional referrals via ECIN. CM awaiting acceptance from an Inpatient RehabFacility and will continue to work on discharge planning with patient and family. Dc transportation: PENDING Patient is also agreeable to Proactive referral to [facility] Dc Address [address] [place] [id number] Floor cm will continue to follow * Initial Assessments - Jennifer Levi RN - 05/12/2024 10:04 AM CDT CM Initial Assessment Interview Note Information Obtained From: Patient (05/12/24 100) Admission Source: from home Impression: 68 year old s/p open AWR w/ B/L TAR on 05/11 Plan Includes: return home with 24 hour assist per spouse, no need for hh or dme - PENDING Therapy evals Primary Source of Transportation: Does the patient need discharge transport arranged?: No (05/12/24 100) Health Insurance Coverage: c/idpa Prescription Coverage: yes Pharmacy: [facility] [id number] IN [place], [place] - [address] [facility] [id number] Primary Care Provider: Kathya Orona DO Prior [...] Collaboration with Patient, Provider, Direct Care Nurse, Patient Companion, and other members of theHealth Care Team to assure needed interventions completed. 2. Return patient to optimal level of self-care post discharge. 3. Faculty Member will follow for Discharge Planning - interventions as needed 4. Anticipated level of care at discharge 5. Planned Discharge Disposition Jennifer Levi RN * Plan of Care - Juhi Mandujano RN - 05/12/2024 9:47 AM CDT Goals: Clinical Goals for the Shift: Pain control, monitor I/Os, JAIME drain care, wiggins care, ambulation, CHG bath [facility] Patient Centered Goal for Treatment: Safe discharge [...] under direct visualization. We then placed a [id number] piece of Bard soft mesh placed in a bernadine fashion. This nicely covered from the below the pubic symphysis to the xiphoid bone. There lateral edges of the mesh were trimmed to allow the mesh to lay flat. We then placed two 19 micronesian abena drains to drain the space above the mesh. The anterior fascia was then closed with interrupted #1 PDS sutures around a reinforced tension line of 1. PDS suture. We then excised her excess skin and hernia sac. We placed a 15 Swazi Abena drain in the subcutaneous space. We [...] Implant Name Type Inv. Item Serial No. Manufacturing Electrician Lot No. LRB No. Used Action [employer]/C R BARD [id number] Bard [id number] Monofilament Soft Lightweight Low Profile Square - [id number] Mesh [employer] BARD [id number] Bard [id number] Monofilament Soft Lightweight Low ProfileSquare [id number] [employer]/C R Bard [id number] N/A 1 Implanted Complications: None Condition on Discharge from the operating room was stable TEACHING ATTESTATION : I was present and directly participated in the entire procedure (including opening and closing). Date: 05/11/2024 Time: 4:58 PM Sabino Luke MD Minimally Invasive GI Surgery & Abdominal Wall Reconstruction features reporter [facility] [phone] * Hospital Course - Hope Brito NP [...] on stairs Contact your local community or [facility] for information on exercise, fall prevention [...] PM CDT POCT GLUCOSE DEVICE Routine 05/11/2024 3:59 PM CDT POCT GLUCOSE DEVICE Routine 05/11/2024 [...] Final Result Performing Organization Address [facility] Co de Phone Number [facility] [place] [address] * POCT glucose (05/18/2024 8:00 PM CDT) Glucose, POC 192 70 - 199 mg/dL Blood 05/18/2024 8:00 PM CDT 05/18/2024 8:00 PM CDT Sabino Luke MD LAB POCT ORDERABLES - DE VICE Final Result Performing Organization Address [facility] Co de Phone Number [facility] Department [place] [address] * POCT glucose (05/18/2024 5:06 PM CDT) Glucose, POC 177 70 - 199 mg/dL Blood 05/18/2024 5:06 PM CDT 05/18/2024 5:06 PM CDT us Sabino Luke MD LAB POCT ORDERABLES - DE VICE Final Result JASMIN [facility] [place] [address] * CT Chest PE (CTA) W Contrast [...] signed by: William Wyatt M.D. Hope Brito [employer] IMG CT PROCEDURES Final Result * POCT glucose (05/18/2024 12:03 PM CDT) Glucose, POC 149 70 - 199 mg/dL Blood 05/18/2024 12:0 3 PM CDT 05/18/2024 12:03 PM CDT Sabino Luke MD LAB POCT ORDERABLES - DE VICE Final Result Performing Organization Address [facility] Co de Phone Number [facility] [place] [address] * POCT glucose (05/18/2024 8:01 AM CDT) Glucose, POC 134 70 - 199 mg/dL Blood 05/18/2024 8:01 AM CDT 05/18/2024 8:01 AM CDT Sabino Luke MD LAB POCT ORDERABLES - DE VICE Final Result Performing Organization Address [facility] Co in Phone Number [facility] [place] [address] * POCT glucose (05/17/2024 8:16 PM CDT) Glucose, POC 131 70 - 199 mg/dL Blood 05/17/2024 8:16 PM CDT 05/17/2024 8:16 PM CDT Sabino Luke MD LAB POCT ORDERABLES - DE VICE Final Result Performing Organization Address [facility] Co de Phone Number [facility] [place] [address] * POCT glucose (05/17/2024 5:30 PM CDT) Glucose, POC 174 70 - 199 mg/dL Blood 05/17/2024 5:30 PM CDT 05/17/2024 5:30 PM CDT Sabino Luke MD LAB POCT ORDERABLES - DE VICE Final Result Performing Organization Address City/[facility]/ZIP Co de Phone Number [facility] [place] [address] * POCT glucose (05/17/2024 11:28 AM CDT) Glucose, POC 149 70 - 199 mg/dL Blood 05/17/2024 11:2 8 AM CDT 05/17/2024 11:28 AM CDT Sabino Luke MD LAB POCT ORDERABLES - DE VICE Final Result Performing Organization Address [facility] Phone Number JASMIN [facility] [place] [address] * ECG 12 lead (05/17/2024 9:50 AM CDT) Ventricular Rate EKG/Min 113 BPM [facility] Atrial Rate 113 BPM [facility] [place]-Interval (MSEC) 138 ms [facility] QRS-Interval (MSEC) 82 ms [facility] QT-Interval (MSEC) 334 ms [facility] QTc 458 ms [facility] P [place] 33 degrees [facility] R [place] -3 degrees [facility] T [place] 80 degrees [facility] Diagnosis Sinus tachycardia Minimal voltage criteria for LVH, may be normal variant Nonspecific T wave abnormality Abnormal ECG No previous ECGs available Confirmed by ALIREZA COX M.D ([id number]) on 05/19/2024 9:25:15 AM [facility] 05/17/2024 9:50 AM CDT 05/19/2024 9:25 AM CDT Sabino Luke MD ECG ORDERABLES Final Re sult Performing Organization Address [facility]/ZIP Co de Phone Number [facility] * XR Chest 1 View (05/17/2024 9:14 [...] * POCT glucose (05/17/2024 7:48 AM CDT) [facility] Glucose, POC 140 70 - 199 mg/dL Blood 05/17/2024 7:48 AM CDT 05/17/2024 7:48 AM CDT Sabino Luke MD LAB POCT ORDERABLES - DE VICE Final Result JASMIN [facility] [place] [address] * COVID-19 Coronavirus RNA Nasopharyngeal (05/16/2024 9:35 PM CDT) Pathologist [facility] COVID-19 RNA Negative Negative [facility] Nasopharyngeal 05/16/2024 9: 35 PM CDT 05/16/2024 10:14 PM CDT Sergio AREVALO - 05/16/2024 10:48 PM CDT Is the patient experiencing any symptoms consistent with COVID (eg. Fever, cough, shortness of breath)?->No What is the reason for testing?->Screening for post-acute care placement ??Interpretive data Testing performed by [facility] ([phone]). This test is performed using the [employer] Xpert Xpress CoV-2 plus assay. This is a real-time RT-PCR test intended for the qualitative detection of nucleic acid from the SARS-CoV-2. This assay has been cleared by the [place] Food and Drug administration. The performance characteristics have been verified by the [facility]. ??Results must be considered in the clinical context, and a negative result does not rule out infection. Interpretive data last revised 2024. ??Interpretive data Testing performed by [facility] ([phone]). This test is performed using the [employer] Xpert Xpress CoV-2 plus assay. This is a real-time RT-PCR test intended for the qualitative detection of nucleic acid from the SARS-CoV-2. This assay has been cleared by the [place] Food and Drug administration. The performance characteristics have been verified by the [facility]. ??Results must be considered in the clinical context, and a negative result does not rule out infection. Interpretive data last revised 2024. us Hope Brito NP LAB MICROBIOLOGY - GENER AL ORDERABLES Final Result [facility] [place] [address] [facility] * eGFR (05/16/2024 9:34 PM CDT) [facility] eGFR >90 >=60 mL/min/1. 73 m2 Comment: [...] ORDERABLES Fin al Result Performing Organization Address City/State/[facility] Co de Phone Number [facility] [place] [address] * (ABNORMAL) CBC without differential (05/16/2024 9:34 PM CDT) Pathologist [facility] WBC 7.9 3.8 - 9.9 K/cumm Hgb 11.4(L) 11.9 - 15.5 g/dL [facility] Hct 33.8(L) 35.6 - 45.5 % [facility] Plt 320 150 - 400 K/cumm [facility] MPV 9.4 9.1 - 12.3 fL [facility] RBC 4.08 3.90 - 5.20 M/cumm [facility] MCV 82.8 81.3 - 96.4 fL [facility] MCH 27.9 27.1 - 33.3 pg [facility] MCHC 33.7 32.3 - 35.7 g/dL [facility] RDW CV 14.4 11.1 - 14.9 % [facility] RDW SD 43.5 35.7 - 48.1 fL [facility] NRBC abs 0.00 0.00 - 0.01 K/cumm [facility] Blood 05/16/2024 9:34 PM CDT 05/16/2024 10:15 PM CDT Sabino Luke MD LAB BLOOD ORDERABLES Fin al Result [facility] [place] [address] * Basic metabolic panel (05/16/2024 9:34 PM CDT) Sodium 136 135 - 145 mmol/L Potassium, pl 3.5 3.3 - 4.9 mmol/L [facility] Chloride 97 97 - 110 mmol/L [facility] CO2 29 22 - 32 mmol/L [facility] Anion gap 10 2 - 15 mmol/L [facility] BUN 12 6 - 25 mg/dL [facility] Creatinine 0.64 0.60 - 1.10 mg/dL [facility] Glucose 121 70 - 199 mg/dL [facility] Comment: Interpretive Data Fasting glucose [...] 2022. Calcium 9.5 8.5 - 10.3 mg/dL [facility] Blood 05/16/2024 9:34 PM CDT 05/16/2024 10:14 PM CDT Sabino Luke MD LAB BLOOD ORDERABLES Fin al Result Performing Organization Address City/[facility] Co de Phone Number [facility] [place] [address] * POCT glucose (05/16/2024 9:04 PM CDT) Glucose, POC 133 70 - 199 mg/dL Blood 05/16/2024 9:04 PM CDT 05/16/2024 9:04 PM CDT Sabino Luke MD LAB POCT ORDERABLES - DE VICE Final Result Performing Organization Address City/[facility] Co de Phone Number [facility] [place] [address] * POCT glucose (05/16/2024 4:58 PM CDT) Glucose, POC 177 70 - 199 mg/dL Blood 05/16/2024 4:58 PM CDT 05/16/2024 4:58 PM CDT Sabino Luke MD LAB POCT ORDERABLES - DE VICE Final Result Performing Organization Address City/[facility] Co de Phone Number [facility] [place] [address] * POCT glucose (05/16/2024 10:55 AM CDT) Glucose, POC 139 70 - 199 mg/dL Blood 05/16/2024 10:5 5 AM CDT 05/16/2024 10:55 AM CDT us Sabino Luke MD LAB POCT ORDERABLES - DE VICE Final Result Performing Organization Address [facility] Co de Phone Number [facility] [place] [address] * POCT glucose (05/16/2024 8:32 AM CDT) Pathologist [facility] Glucose, POC 125 70 - 199 mg/dL Blood 05/16/2024 8:32 AM CDT 05/16/2024 8:32 AM CDT Sabino Luke MD LAB POCT ORDERABLES - DE VICE Final Result Performing Organization Address [facility] Phone Number [facility] [place] [address] * eGFR (05/15/2024 11:40 PM CDT) Pathologist [facility] eGFR >90 >=60 mL/min/1. 73 m2 Comment: [...] ORDERABLES Fin al Result Performing Organization Address City/[facility]/ZIP Co de Phone Number [facility] [place] [address] * (ABNORMAL) CBC without differential (05/15/2024 11:40 PM CDT) WBC 7.2 3.8 - 9.9 K/cumm Hgb 11.2(L) 11.9 - 15.5 g/dL [facility] Hct 32.9(L) 35.6 - 45.5 % [facility] Plt 286 150 - 400 K/cumm [facility] MPV 9.3 9.1 - 12.3 fL [facility] RBC 3.96 3.90 - 5.20 M/cumm [facility] MCV 83.1 81.3 - 96.4 fL [facility] MCH 28.3 27.1 - 33.3 pg [facility] MCHC 34.0 32.3 - 35.7 g/dL [facility] RDW CV 14.2 11.1 - 14.9 % [facility] RDW SD 42.7 35.7 - 48.1 fL [facility] NRBC abs 0.00 0.00 - 0.01 K/cumm [facility] Blood 05/15/2024 11:4 0 PM CDT 05/16/2024 12:13 AM CDT us Sabino Luke MD LAB BLOOD ORDERABLES Fin al Result Performing Organization Address City/[facility]/ZIP Co de Phone Number [facility] [place] [address] * (ABNORMAL) Basic metabolic panel (05/15/2024 11:40 PM CDT) Sodium 132(L) 135 - 145 mmol/L Potassium, pl 3.6 3.3 - 4.9 mmol/L [facility] Chloride 95(L) 97 - 110 mmol/L [facility] CO2 29 22 - 32 mmol/L [facility] Anion gap 8 2 - 15 mmol/L [facility] BUN 8 6 - 25 mg/dL [facility] Creatinine 0.65 0.60 - 1.10 mg/dL [facility] Glucose 120 70 - 199 mg/dL [facility] Comment: Interpretive Data Fasting glucose [...] 2022. Calcium 9.4 8.5 - 10.3 mg/dL [facility] Blood 05/15/2024 11:4 0 PM CDT 05/16/2024 12:13 AM CDT us Hope Brito [employer] LAB BLOOD ORDERABLES Fin al Result [facility] [place] [address] * POCT glucose (05/15/2024 8:35 PM CDT) Glucose, POC 123 70 - 199 mg/dL Blood 05/15/2024 8:35 PM CDT 05/15/2024 8:35 PM CDT us Sabino Luke MD LAB POCT ORDERABLES - DE VICE Final Result Performing Organization Address City/[facility]/ZIP Co de Phone Number [facility] [place] [address] * POCT glucose (05/15/2024 4:43 PM CDT) Glucose, POC 115 70 - 199 mg/dL Blood 05/15/2024 4:43 PM CDT 05/15/2024 4:43 PM CDT Sabino Luke MD LAB POCT ORDERABLES - DE VICE Final Result Performing Organization Address [facility] Co de Phone Number [facility] [place] [address] * POCT glucose (05/15/2024 11:30 AM CDT) Glucose, POC 155 70 - 199 mg/dL Blood 05/15/2024 11:3 0 AM CDT 05/15/2024 11:30 AM CDT Sabino Luke MD LAB POCT ORDERABLES - DE VICE Final Result Performing Organization Address City/[facility]/ZIP Co de Phone Number [facility] [place] [address] * POCT glucose (05/15/2024 8:19 AM CDT) Glucose, POC 146 70 - 199 mg/dL Blood 05/15/2024 8:19 AM CDT 05/15/2024 8:19 AM CDT Sabino Luke MD LAB POCT ORDERABLES - DE VICE Final Result Performing Organization Address City/[facility]/ZIP Co de Phone Number [facility] [place] [address] * eGFR (05/14/2024 11:11 PM CDT) eGFR [...] 05/15/2024 4:35 AM CDT us Hope Brito [employer] LAB BLOOD ORDERABLES Fin al Result [facility] Department [place] [address] * Magnesium (05/14/2024 11:11 PM CDT) Magnesium 1.9 1.4 - 2.5 mg/dL Blood 05/14/2024 11:1 1 PM CDT 05/15/2024 4:35 AM CDT Hope Brito NP LAB BLOOD ORDERABLES Fin al Result Performing Organization Address City/[facility]/ZIP Co de Phone Number [facility] Department [place] [address] * (ABNORMAL) Basic metabolic panel (05/14/2024 11:11 PM CDT) [facility] Sodium 133(L) 135 - 145 mmol/L Potassium, pl 3.0(L) 3.3 - 4.9 mmol/L [facility] Chloride 91(L) 97 - 110 mmol/L [facility] CO2 27 22 - 32 mmol/L [facility] Anion gap 15 2 - 15 mmol/L [facility] BUN 7 6 - 25 mg/dL [facility] Creatinine 0.56(L) 0.60 - 1.10 mg/dL [facility] Glucose 133 70 - 199 mg/dL [facility] Comment: Interpretive Data Fasting glucose [...] 2022. Calcium 9.1 8.5 - 10.3 mg/dL [facility] Blood 05/14/2024 11:1 1 PM CDT 05/15/2024 4:35 AM CDT Hope Brito NP LAB BLOOD ORDERABLES Fin al Result Performing Organization Address [facility]/ZIP Co de Phone Number [facility] [place] [address] * (ABNORMAL) CBC without differential (05/14/2024 11:11 PM CDT) [facility] WBC 7.2 3.8 - 9.9 K/cumm Hgb 11.1(L) 11.9 - 15.5 g/dL [facility] Hct 33.4(L) 35.6 - 45.5 % [facility] Plt 260 150 - 400 K/cumm [facility] MPV 10.1 9.1 - 12.3 fL [facility] RBC 3.99 3.90 - 5.20 M/cumm [facility] MCV 83.7 81.3 - 96.4 fL [facility] MCH 27.8 27.1 - 33.3 pg [facility] MCHC 33.2 32.3 - 35.7 g/dL [facility] RDW CV 14.2 11.1 - 14.9 % [facility] RDW SD 43.6 35.7 - 48.1 fL [facility] NRBC abs 0.00 0.00 - 0.01 K/cumm [facility] Blood 05/14/2024 11:1 1 PM CDT 05/15/2024 4:17 AM CDT Hope Brito NP LAB BLOOD ORDERABLES Fin al Result [facility] [place] [address] * POCT glucose (05/14/2024 9:05 PM CDT) [facility] Glucose, POC 130 70 - 199 mg/dL Blood 05/14/2024 9:05 PM CDT 05/14/2024 9:05 PM CDT us Sabino Luke MD LAB POCT ORDERABLES - DE VICE Final Result Performing Organization Address [facility]/ZIP Co de Phone Number [facility] [place] [address] * POCT glucose (05/14/2024 5:00 PM CDT) Glucose, POC 131 70 - 199 mg/dL Blood 05/14/2024 5:00 PM CDT 05/14/2024 5:00 PM CDT Sabino Luke MD LAB POCT ORDERABLES - DE VICE Final Result Performing Organization Address City/[facility] Co de Phone Number [facility] [place] [address] * POCT glucose (05/14/2024 11:40 AM CDT) Glucose, POC 125 70 - 199 mg/dL Blood 05/14/2024 11:4 0 AM CDT 05/14/2024 11:40 AM CDT Sabino Luke MD LAB POCT ORDERABLES - DE VICE Final Result Performing Organization Address [facility] Co de Phone Number [facility] [place] [address] * POCT glucose (05/14/2024 7:46 AM CDT) Glucose, POC 174 70 - 199 mg/dL Blood 05/14/2024 7:46 AM CDT 05/14/2024 7:46 AM CDT Sabino Luke MD LAB POCT ORDERABLES - DE VICE Final Result Performing Organization Address City/[facility] Co de Phone Number [facility] [place] [address] * eGFR (05/14/2024 12:11 AM CDT) eGFR [...] al Result Performing Organization Address [facility] de Phone Number [facility] [place] [address] * Magnesium (05/14/2024 12:11 AM CDT) Magnesium 2.3 1.4 - 2.5 mg/dL Blood 05/14/2024 12:1 1 AM CDT 05/14/2024 12:48 AM CDT Hope Brito NP LAB BLOOD ORDERABLES Fin al Result Performing Organization Address [facility]/ZIP Co de Phone Number [facility] [place] [address] * (ABNORMAL) Basic metabolic panel (05/14/2024 12:11 AM CDT) Pathologist [facility] Sodium 136 135 - 145 mmol/L Potassium, pl 3.9 3.3 - 4.9 mmol/L [facility] Chloride 99 97 - 110 mmol/L [facility] CO2 32 22 - 32 mmol/L [facility] Anion gap 5 2 - 15 mmol/L [facility] BUN 7 6 - 25 mg/dL [facility] Creatinine 0.55(L) 0.60 - 1.10 mg/dL [facility] Glucose 119 70 - 199 mg/dL [facility] Comment: Interpretive Data Fasting glucose [...] 2022. Calcium 9.0 8.5 - 10.3 mg/dL [facility] Blood 05/14/2024 12:1 1 AM CDT 05/14/2024 12:48 AM CDT us Hope Brito [employer] LAB BLOOD ORDERABLES Fin al Result [facility] [place] [address] * (ABNORMAL) CBC without differential (05/14/2024 12:11 AM CDT) [facility] WBC 9.0 3.8 - 9.9 K/cumm Hgb 10.6(L) 11.9 - 15.5 g/dL [facility] Hct 32.3(L) 35.6 - 45.5 % [facility] Plt 206 150 - 400 K/cumm [facility] MPV 9.5 9.1 - 12.3 fL [facility] RBC 3.79(L) 3.90 - 5.20 M/cumm [facility] MCV 85.2 81.3 - 96.4 fL [facility] MCH 28.0 27.1 - 33.3 pg [facility] MCHC 32.8 32.3 - 35.7 g/dL [facility] RDW CV 14.1 11.1 - 14.9 % [facility] RDW SD 44.1 35.7 - 48.1 fL [facility] NRBC abs 0.00 0.00 - 0.01 K/cumm [facility] Blood 05/14/2024 12:1 1 AM CDT 05/14/2024 12:48 AM CDT Hope Brito NP LAB BLOOD ORDERABLES Fin al Result [facility] [place] [address] * (ABNORMAL) POCT glucose (05/13/2024 7:52 PM CDT) Glucose, POC 200(H) 70 - 199 mg/dL Blood 05/13/2024 7:52 PM CDT 05/13/2024 7:52 PM CDT Sabino Luke MD LAB POCT ORDERABLES - DE VICE Final Result [facility] [place] [address] * (ABNORMAL) POCT glucose (05/13/2024 5:26 PM CDT) Glucose, POC 224(H) 70 - 199 mg/dL Blood 05/13/2024 5:26 PM CDT 05/13/2024 5:26 PM CDT Sabino Luke MD LAB POCT ORDERABLES - DE VICE Final Result Performing Organization Address City/[facility] Co de Phone Number [facility] [place] [address] * POCT glucose (05/13/2024 12:21 PM CDT) Glucose, POC 154 70 - 199 mg/dL Blood 05/13/2024 12:2 1 PM CDT 05/13/2024 12:21 PM CDT Sabino Luke MD LAB POCT ORDERABLES - DE VICE Final Result Performing Organization Address [facility] Phone Number [facility] [place] [address] * XR Chest 1 View (05/13/2024 9:40 [...] by: Omar Galvan M.D. us Hope Brito [employer] IMG XR PROCEDURES Final Result * POCT glucose (05/13/2024 8:20 AM CDT) Glucose, POC 167 70 - 199 mg/dL Blood 05/13/2024 8:20 AM CDT 05/13/2024 8:20 AM CDT us Sabino Luke MD LAB POCT ORDERABLES - DE VICE Final Result [facility] [place] [address] * eGFR (05/12/2024 10:14 PM CDT) eGFR [...] ORDERABLES Fin al Result Performing Organization Address City/[facility] Co de Phone Number [facility] [place] [address] * Magnesium (05/12/2024 10:14 PM CDT) Pathologist [facility] Magnesium 2.1 1.4 - 2.5 mg/dL Blood 05/12/2024 10:1 4 PM CDT 05/12/2024 11:05 PM CDT Hope Brito NP LAB BLOOD ORDERABLES Fin al Result Performing Organization Address [facility] de Phone Number [facility] [place] [address] * Basic metabolic panel (05/12/2024 10:14 PM CDT) Pathologist [facility] Sodium 139 135 - 145 mmol/L Potassium, pl 3.4 3.3 - 4.9 mmol/L [facility] Chloride 101 97 - 110 mmol/L [facility] CO2 30 22 - 32 mmol/L [facility] Anion gap 8 2 - 15 mmol/L [facility] BUN 9 6 - 25 mg/dL [facility] Creatinine 0.68 0.60 - 1.10 mg/dL [facility] Glucose 151 70 - 199 mg/dL [facility] Comment: Interpretive Data Fasting glucose [...] 2022. Calcium 8.7 8.5 - 10.3 mg/dL [facility] Blood 05/12/2024 10:1 4 PM CDT 05/12/2024 11:05 PM CDT Hope Brito NP LAB BLOOD ORDERABLES Fin al Result [facility] [place] [address] * (ABNORMAL) CBC without differential (05/12/2024 10:14 PM CDT) Pathologist [facility] WBC 10.9(H) 3.8 - 9.9 K/cumm Hgb 11.3(L) 11.9 - 15.5 g/dL [facility] Hct 34.9(L) 35.6 - 45.5 % [facility] Plt 216 150 - 400 K/cumm [facility] MPV 9.8 9.1 - 12.3 fL [facility] RBC 4.02 3.90 - 5.20 M/cumm [facility] MCV 86.8 81.3 - 96.4 fL [facility] MCH 28.1 27.1 - 33.3 pg [facility] MCHC 32.4 32.3 - 35.7 g/dL [facility] RDW CV 14.4 11.1 - 14.9 % [facility] RDW SD 46.5 35.7 - 48.1 fL [facility] NRBC abs 0.00 0.00 - 0.01 K/cumm [facility] Blood 05/12/2024 10:1 4 PM CDT 05/13/2024 12:16 AM CDT Hope Brito NP LAB BLOOD ORDERABLES Fin al Result [facility] [place] [address] * POCT glucose (05/12/2024 8:26 PM CDT) Glucose, POC 132 70 - 199 mg/dL Blood 05/12/2024 8:26 PM CDT 05/12/2024 8:26 PM CDT Sabino Luke MD LAB POCT ORDERABLES - DE VICE Final Result Performing Organization Address [facility] [place] [address] * POCT glucose (05/12/2024 5:23 PM CDT) Glucose, POC 162 70 - 199 mg/dL Blood 05/12/2024 5:23 PM CDT 05/12/2024 5:23 PM CDT Sabino Luke MD LAB POCT ORDERABLES - DE VICE Final Result Performing Organization Address [facility]/[place] [address] * POCT glucose (05/12/2024 12:20 PM CDT) Glucose, POC 149 70 - 199 mg/dL Blood 05/12/2024 12:2 0 PM CDT 05/12/2024 12:20 PM CDT Sabino Luke MD LAB POCT ORDERABLES - DE VICE Final Result Performing Organization Address City/[facility]/ZIP Co de Phone Number [facility] [place] [address] * POCT glucose (05/12/2024 8:18 AM CDT) Glucose, POC 144 70 - 199 mg/dL Blood 05/12/2024 8:18 AM CDT 05/12/2024 8:18 AM CDT Sabino Luke MD LAB POCT ORDERABLES - DE VICE Final Result Performing Organization Address [facility] Co in Phone Number [facility] [place] [address] * POCT glucose (05/11/2024 9:55 PM CDT) Glucose, POC 159 70 - 199 mg/dL Blood 05/11/2024 9:55 PM CDT 05/11/2024 9:55 PM CDT Sabino Luke MD LAB POCT ORDERABLES - DE VICE Final Result Performing Organization Address [facility] Phone Number [facility] [place] [address] * (ABNORMAL) Lipid panel (05/11/2024 9:44 PM [...] revised on 2018. Triglycerides 174(H) <=149 mg/dL [facility] Comment: Interpretive Data Ages < [...] revised on 2018. HDL 40 >=40 mg/dL [facility] Comment: Interpretive Data Ages < [...] on 2018. LDL, calculated 53 <=129 mg/dL [facility] Comment: Interpretive Data Ages < [...] on 2024. Non-HDL Cholesterol 82 mg/dL [facility] Comment: Interpretive Data Ages < or [...] last revised on 2018. Chol/HDL ratio 3 [facility] Blood 05/11/2024 9:44 PM CDT 05/11/2024 10:45 PM CDT us Sabino Luke MD LAB BLOOD ORDERABLES Fin al Result [facility] [place] [address] * eGFR (05/11/2024 9:44 PM CDT) eGFR [...] LAB BLOOD ORDERABLES Fin al Result [facility] [place] [address] * Magnesium (05/11/2024 9:44 PM CDT) Magnesium 1.5 1.4 - 2.5 mg/dL Blood 05/11/2024 9:44 PM CDT 05/11/2024 10:45 PM CDT Roverto Merino MD LAB BLOOD ORDERABLES Fin al Result Performing Organization Address City/[facility]/ZIP Co de Phone Number [facility] [place] [address] * Basic metabolic panel (05/11/2024 9:44 PM CDT) [facility] Sodium 142 135 - 145 mmol/L Potassium, pl 3.5 3.3 - 4.9 mmol/L [facility] Chloride 102 97 - 110 mmol/L [facility] CO2 27 22 - 32 mmol/L [facility] Anion gap 13 2 - 15 mmol/L [facility] BUN 14 6 - 25 mg/dL [facility] Creatinine 0.81 0.60 - 1.10 mg/dL [facility] Glucose 159 70 - 199 mg/dL [facility] Comment: Interpretive Data Fasting glucose [...] 2022. Calcium 8.6 8.5 - 10.3 mg/dL [facility] Blood 05/11/2024 9:44 PM CDT 05/11/2024 10:45 PM CDT Roverto Merino MD LAB BLOOD ORDERABLES Fin al Result Performing Organization Address [facility] Co de Phone Number [facility] [place] [address] * (ABNORMAL) CBC without differential (05/11/2024 9:44 PM CDT) [facility] WBC 16.5(H) 3.8 - 9.9 K/cumm Hgb 12.3 11.9 - 15.5 g/dL [facility] Hct 38.3 35.6 - 45.5 % [facility] Plt 251 150 - 400 K/cumm [facility] MPV 9.3 9.1 - 12.3 fL [facility] RBC 4.48 3.90 - 5.20 M/cumm [facility] MCV 85.5 81.3 - 96.4 fL [facility] MCH 27.5 27.1 - 33.3 pg [facility] MCHC 32.1(L) 32.3 - 35.7 g/dL [facility] RDW CV 14.3 11.1 - 14.9 % [facility] RDW SD 44.3 35.7 - 48.1 fL [facility] NRBC abs 0.00 0.00 - 0.01 K/cumm [facility] Blood 05/11/2024 9:44 PM CDT 05/11/2024 10:47 PM CDT Roverto Mreino MD LAB BLOOD ORDERABLES Fin al Result [facility] [place] [address] * POCT glucose (05/11/2024 6:02 PM CDT) [facility] Glucose, POC 149 70 - 199 mg/dL Blood 05/11/2024 6:02 PM CDT 05/11/2024 6:02 PM CDT Sabino Luke MD LAB POCT ORDERABLES - DE VICE Final Result [facility] [place] [address] * POCT glucose (05/11/2024 3:59 PM CDT) Glucose, POC 134 70 - 199 mg/dL Blood 05/11/2024 3:59 PM CDT 05/11/2024 3:59 PM CDT Sabino Luke MD LAB POCT ORDERABLES - DE VICE Final Result Performing Organization Address [facility] Co de Phone Number [facility] [place] [address] * POCT glucose (05/11/2024 1:30 PM CDT) Glucose, POC 124 70 - 199 mg/dL Blood 05/11/2024 1:30 PM CDT 05/11/2024 1:30 PM CDT Sabino Luke MD LAB POCT ORDERABLES - DE VICE Final Result Performing Organization Address [facility] Co de Phone Number [facility] [place] [address] * POCT glucose (05/11/2024 11:29 AM CDT) Glucose, POC 112 70 - 199 mg/dL Blood 05/11/2024 11:2 9 AM CDT 05/11/2024 11:29 AM CDT Sabino Luke MD LAB POCT ORDERABLES - DE VICE Final Result Performing Organization Address [facility] [facility] Co de Phone Number [facility] [place] [address] documented in this encounter Visit Diagnoses Diagnosis Incarcerated incisional hernia- Primary Incisional hernia with obstruction Incarcerated incisional hernia [K43.0] Incisional hernia with obstruction Incisional hernia of anterior abdominal wall without obstruction or gangrene Incarcerated incisional hernia Incisional hernia with obstruction documented in this encounter Admitting Diagnoses Diagnosis [...] 2 puff, inhalation, Every 6 hours PRN (manager social responsibility), wheezing, Starting on Sat05/12/24 at 0117, Indications: [...] Given 05/17/2024 5:33 AM CDT 10 mg BUPivacaine (MARCAINE) 0.25 % (2.5 mg/mL) preservative free injection As needed, Starting on Sat05/11/24 at 1553, Intra-Op Given 05/11/2024 3:53 PM CDT 60 mL Abdominal Tissue cyclobenzaprine (FLEXERIL) tablet 10 mg 10 mg, [...] episode of hypoglycemia., Indications: hypoglycemic disorderIndications:hypoglycemic disorder docusate sodium (COLACE) capsule 100 mg 100 mg, oral, 2 times daily, First dose on Sat05/11/24 at 2100, Hold for diarrhea., Indications: constipationIndications:constipation Given 05/19/2024 8:47 AM CDT 100 mg Given 05/18/2024 9:22 AM CDT 100 mg Given 05/17/2024 8:31 PM CDT 100 mg heparin 5,000 unit/mL injection 5,000 Units 5,000 [...] breakthrough pain, Starting on Sat05/13/24 at 0729 insulin lispro (HumaLOG, ADMELOG) 100 unit/mL injection [...] NOT hold for NPO Status, Indications: Diabetes MellitusIndications:Diabetes Mellitus Given 05/13/2024 8:00 PM CDT 1 [...] NOT hold for NPO Status, Indications: Diabetes MellitusIndications:Diabetes Mellitus Given 05/18/2024 5:26 PM CDT 1 Units Right Upper Arm Given 05/17/2024 5:33 PM CDT 1 Units Le ft Upper Arm Given 05/16/2024 5:43 PM CDT 1 Units Le ft Upper Arm oxyCODONE (ROXICODONE) tablet 5 mg 5 mg, [...] Given 05/16/2024 8:34 AM CDT 17 g sertraline (ZOLOFT) tablet 50 mg 50 [...] 6:03 AM CDT 10 mL sodium chloride 0.9% irrigation As needed, Starting on Sat05/11/24 at 1402, Intra-Op Given 05/11/2024 2:02 PM CDT 1,000 mL Surgical Site sterile water irrigation As needed, Starting on 05/11/24 at 1402, Intra-Op Given 05/11/2024 2:02 PM CDT 1,000 mL Other (Comment) documented in this encounter Discontinued Medications Medication [...] 1 tablet (25 mg total) by mouth php website developer before breakfast 05/18/2024 sertraline (ZOLOFT) 50 mg tabletIndications:Anx iety with Depression Take 1 tablet (50 mg total) by mouth every evening 05/18/2024 simvastatin (ZOCOR) 20 mg tabletIndications:hyp erlipidemia Take 1 tablet (20 mg total) by mouth nightly 05/08/2018 05/18/2024 budesonide-formoteroL (SYMBICORT) 160-4.5 mcg/actuation inhalerIndications:Ac native Asthma Attack Inhale 2 puffs 2 (two) [...] (PROVENTIL HFA,VENTOLIN HFA,PROAIR HFA) 90 mcg/actuation inhalerIndications:Ac native Asthma Attack Inhale 2 puffs every 6 (six) hours as needed for wheezing 05/18/2024 potassium chloride ER 20 mEq CR tabletIndications:sup plement Take 1 tablet (20 mEq total) by mouth every other day 01/08/2023 05/18/2024 cyanocobalamin, vitamin B-12, 5,000 mcg/mL dropsIndications:Prev ention of Vitamin B12 Deficiency [address] 5,000 mcg under the tongue php website developer before breakfast 05/18/2024 iron,carb/vit C/vit B12/folic (IRON 100 PLUS ORAL)Indications:supp lement Take 100 mg by mouth php website developer before breakfast 05/18/2024 metFORMIN (GLUCOPHAGE) 500 mg tabletIndications:typ e 2 diabetes mellitus Take 1 tablet (500 mg total) by mouth 2 (two) times a day with meals 05/18/2024 Farxiga 10 mg tabletIndications:typ e 2 diabetes mellitus Take 1 tablet (10 mg total) by mouth php website developer before breakfast 12/12/2023 05/18/2024 amLODIPine (NORVASC) 10 mg tabletIndications:hyp ertension Take 1 tablet (10 mg total) by mouth php website developer before breakfast 12/12/2023 05/18/2024 hydrOXYzine (ATARAX) 25 [...] Stacey Johnson RN)1333 (Given - Provider: Saleem Espinosa, JESSICA)2031 (Given - Provider: Stacey Johnson RN) 0548 (Given - Provider: Stacey Johnson RN)1326 (Given - Provider: Ronda Lozano)2145 (Given - Provider: Raquel Shipman, JESSICA) 0546 [...] at 0800 0807 (Given - Provider: Saleem Espinosa, JESSICA)1504 (Given - Provider: Saleme Espinosa, JESSICA)2306 (Given - Provider: Stacey Johnson RN) 0922 (Given - Provider: Ronda Lozano)1727 (Given - Provider: Ronda Lozano) 0104 (Given - Provider: Noreen Oneill RN)0847 (Given - Provider: Ronda Lozano) diphenhydrAMINE (BENADRYL) [...] Indications: constipation 0807 (Given - Provider: Saleem Espinosa, JESSICA)203 (Given - Provider: Stacey Johnson, JESSICA) 09 (Given - Provider: Ronda Lozano)2126 (Not Given - Provider: Raquel Shipman, JESSICA - Reason: Patient/family refused) 0847 (Given - Provider: Ronda Lozano) heparin 100 unit/mL injection 500 Units (COMPLETED) 500 Units (5 mL), intra-catheter, Once, On Sat05/19/24 at 1100, For 1 dose, For port decannulation., Indications: Maintain Patency of Indwelling Vascular Catheter 1058 (Given - Provider: Juhi Mandujano RN) heparin 5,000 unit/mL injection 5,000 Units 5,000 Units, subcutaneous, Every 8 hours scheduled, First dose on Sat05/11/24 at 2200, Indications: Deep Vein Thrombosis Prevention 0533 (Given - Provider: Stacey Johnson RN)1333 (Given - Provider: Saleem Espinosa, JESSICA)2030 (Given - Provider: Stacey Johnson, JESSICA) 0548 (Given - Provider: Stacey Johnson, JESSICA)1327 (Given - Provider: Ronda Lozano)2144 (Given - Provider: Raquel Shipman, JESSICA) 0546 (Given - Provider: Raquel Shipman, JESSICA) hydroCHLOROthiazide (HYDRODIURIL) tablet 25 mg 25 mg, oral, Daily (early AM), First dose on Sat05/14/24 at 0600, Indications: hypertension 0533 (Given - Provider: Stacey Johnson, JESSICA) 0548 (Given - Provider: Stacey Johnson, RN) 0546 (Given - Provider: Raquel Shipman, [...] hold for NPO Status, Indications: Diabetes Mellitus 2015 (Not Given - Provider: Stacey Johnson RN [...] Indications: constipation 0807 (Given - Provider: Saleem Espinosa, RN) 0922 (Given - Provider: Ronda Lozano) [...] 2143 (Given - Provider: Raquel Shipman, JESSICA) sodium chloride 0.9% flush 0.5-20 mL 0.5-20 mL, intra-catheter, Every 8 hours scheduled, First dose on Sat05/11/24 at 2200, Flush volume based on line type and size. 0523 (Given - Provider: Stacey Johnson RN)1333 (Given - Provider: Saleem Espinosa, RN)2209 (Given - Provider: Stacey Johnson, JESSICA) 0603 (Given - Provider: Stacey Johnson, JESSICA)1428 (Not Given - Provider: Ronda Lozano - Reason: Order parameters not met)2150 (Given - Provider: Raquel Shipman, JESSICA) 0551 (Given - Provider: Raquel Shipman, JESSICA) sodium chloride 0.9% flush 10 mL 10 mL, intra-catheter, Once, On Sat05/19/24 at 1100, For 1 dose, Prior to heparin to decannulate port. 1100 (Due) PRN Medication Order 05/17/2024 05/18/2024 05/19/2024 albuterol HFA (PROVENTIL HFA,VENTOLIN HFA,PROAIR HFA) 90 mcg/actuation inhaler 2 puff 2 puff, inhalation, Every 6 hours PRN (manager social responsibility), wheezing, Starting on Sat05/12/24 at 0117, Indications: Acute Asthma Attack 0540 (Given - Provider: Stacey Johnson RN) ALPRAZolam (XANAX) tablet 0.5 mg 0.5 mg, oral, 3 times daily PRN, anxiety, Starting on Avani 05/14/24 at 0710 Carrier Fluids for Secondary Infusion - 0.9% Sodium Chloride 30 mL, intravenous, As needed, For priming tubing and/or flushing, Starting on Sat05/11/24 at 2023, 0-250 ml/hr to flush line after IV [...] Starting on Sat05/13/24 at 0729 influenza trivalent [id number] (FLUZONE HIGH DOSE) 180 mcg/0.5 mL vaccine [...] Count Last Ordered Date First Ordered Date heparin 100 unit/mL injection 500 Units 1 1 sodium chloride 0.9% flush 10 mL 1 05/19/20 diphenhydrAMINE (BENADRYL) 5 0 mg/mL injection 50 mg 1 05/18/2024 ioversoL (OPTIRAY 350) syringe 100 mL 1 02/2024 methylPREDNISolone sodium doss ccinate (SOLU-medrol) preservative free injection 40 mg 1 05/18/2024 ramelteon (ROZEREM) tablet 8 mg 1 sodium chloride tablet 1 g 1 05/16/2024 magnesium oxide (MAG-OX) tablet 400 mg 1 potassium chloride (KLOR-CON ) packet 20 mEq 1 05/15/2024 potassium chloride ER (KLOR- CON) extended release tablet 30 mEq 1 05/15/2024 ALPRAZolam (XANAX) tablet 0.5 mg 3 05/14/20 24 05/12/2024 hydroCHLOROthiazide (HYDRODI URIL) tablet 25 mg 1 05/13/2024 HYDROmorphone (DILAUDID) injection 0.2 mg 2 05/13/2024 05/11/2024 oxyCODONE (ROXICODONE) tablet 5 mg 1 2023 polyethylene glycol (MIRALAX) packet 17 g 1 05/13/2024 potassium chloride ER (KLOR- CON) extended release tablet 40 mEq 1 05/13/2024 albuterol HFA (PROVENTIL HFA ,VENTOLIN HFA,PROAIR HFA) 90 mcg/actuation inhaler 2 puff 2 05/12/2024 05/11/2024 cyclobenzaprine (FLEXERIL) tablet 10 mg 2 1 05/11/2024 influenza trivalent 2023- 5 (FLUZONE HIGH DOSE) 180 mcg/0.5 mL vaccine (HIGH DOSE age 65 years and up) 0.5 mL 1 05/12/2024 Lactated Ringer's (LR) bolus 1,000 mL 1 08/2023 acetaminophen (TYLENOL) tablet 1,000 mg 2 0 05/11/2024 amLODIPine (NORVASC) tablet 10 mg 1 024 Carrier Fluids for Secondary Infusion - 0.9% Sodium Chloride 2 05/11/2024 ceFAZolin (ANCEF) 2,000 mg/2 0 mL in sterile water (premix) 2,000 mg 1 05/11/2024 dextrose (D10W) 10% bolus 250 mL 1 05/11/20 24 dextrose gel in packet 15 g 1 05/11/2024 docusate sodium (COLACE) capsule 100 mg 1 0 05/11/2024 fentaNYL (SUBLIMAZE) preserv ative free injection 50 mcg 1 05/11/2024 glucagon injection 1 mg 1 05/11/2024 heparin 5,000 unit/mL inject ion 5,000 Units 2 05/11/2024 HYDROmorphone (DILAUDID) injection 0.4 mg 1 05/11/2024 HYDROmorphone in 0.9% sodium chloride (DILAUDID) 20 mg/100 mL (0.2 mg/mL) (premix) 1 05/11/2024 insulin lispro (HumaLOG, ADM ELOG) 100 unit/mL injection 0-4 Units 1 05/11/2024 insulin lispro (HumaLOG, ADM ELOG) 100 unit/mL injection 0-5 Units 1 05/11/2024 Lactated Ringer's (LR) infusion 2 lidocaine (PF) (XYLOCAINE) 1 0 mg/mL (1 %) preservative free injection 2-10 mg 1 05/11/2024 magnesium sulfate 2 g/50 mL in water (premix) 2 g 1 05/11/2024 naloxegoL (MOVANTIK) tablet 25 mg 1 024 naloxone (NARCAN) 0.4 mg/mL injection 0.04-0.4 mg 1 05/11/2024 ondansetron (ZOFRAN) injection 4 mg 2 05/11 potassium chloride 40 mEq/52 0 mL in sodium chloride 0.9% (premix) 40 mEq 1 05/11/2024 prochlorperazine (COMPAZINE) injection 5 mg 1 05/11/2024 sertraline (ZOLOFT) tablet 50 mg 1 05/11/20 simvastatin (ZOCOR) tablet 20 mg 1 05/11/20 24 sodium chloride 0.9% flush 0.5-20 mL 3 04/14 Lab Orders Without Results Count Last Ordered D ate First Ordered Date POCT GLUCOSE DEVICE 27 05/19/2024 05/11/20 Imaging Orders Without Results Count Last Order [...] 05/11/2024 documented in this encounter Care Teams Technical Staff Assistant Relationship Specialty Start Date End Date Rosibel Muse MD [address] [place] [address] [place] [address] PCP - General Family Medicine 03/22/23 05/11/24 Sabino Luke MD [address] [place] [address] Referring Physician General Surgery 12/06/23 documented as of this encounter
--- OUTSIDE RECORDS SUMMARY | 2024-08-17 08:47 | XMS_ITS | Encounter Summary ---
Author Organization [facility] Healthcare Address [address] [place] [address] Care Team Providers Care Coffee Grinder Name Role Phone Rosibel Muse MD Primary Care Provider [phone] Encounter Details Date Type Department Care Team (Latest Contact Info) Description 04/08/2023 10:24 AM CDT - 04/08/2023 11:59 PM CDT Hospital Encounter [facility] [address] [place] [id number] Discharge Disposition: Discharge to home or self care Social History Tobacco Use Types Packs/Day Years Used Date Smoking Tobacco: Former Smokeless Tobacco: Never Alcohol Use Standard Drinks/Week Comments No 0 (1 standard drink = 0.6 oz pur e alcohol) Comments No Sex and Gender Information Value Date Recorded Sex Assigned at Not on file 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 Gender Identity Not on file Sexual [...] Deficiency Place 5,000 mcg under the tongue horn player before breakfast 4 fluticasone propionate (FLONASE) 50 mcg/actuation nasal sprayIndications :Allergic Rhinitis Administer 1 spray into each nostril daily as needed for allergies 4 hydroCHLOROthiaz herman (HYDRODIURIL) 25 mg tabletIndication s:hypertension Take 1 tablet (25 mg total) by mouth horn player before breakfast 4 iron,carb/vit C/vit B12/folic (IRON 100 PLUS ORAL)Indications :supplement Take 100 mg by mouth horn player before breakfast 4 potassium chloride ER 20 [...] on stairs Contact your local community or [facility] for information on exercise, fall prevention programs, or options for improving home safety. documented as of this encounter Procedures Procedure Name Priority Date/Time Associated Diagnosis Comments CT BODY OUTSIDE REFERENCE Routine 04/08/2023 10:24 AM CDT documented in this encounter Results * CT Body Outside Reference (04/08/2023 10:24 AM CDT) Impressions [facility] - 04/08/2023 10:24 AM CDT These images are for Reference purposes only and have not been reviewed by [facility] Radiology. ??There will be no report generated by a [facility] Radiologist. Narrative [facility] - 04/08/2023 10:24 AM CDT EXAMINATION: ??Images For Reference Purposes Only Sabino Luke MD IMG CT PROCEDURES Final Result [facility] documented in this encounter Visit Diagnoses Not on filedocumented in this encounter Care Teams Coffee Grinder Relationship Specialty Start Date End Date Rosibel Muse MD [address] [place] [address] [place] [address] PCP - General Family Medicine 03/22/23 05/11/24 documented as of this encounter
--- OUTSIDE RECORDS SUMMARY | 2024-08-17 08:47 | XMS_ITS | Encounter Summary ---
Author Organization [facility] Address [address] [facility] [address] [place] [address] Care Team Providers Care Coil Finisher Name Role Phone No, Physician Primary Care Provider [phone] Reason for Visit * Reason Comments New Patient Back pain Encounter Details Date Type Department Care Team (Late st Contact Info) Description 12/25/2022 8:00 AM CDT Office Visit [facility] Pain Management at [address] [address] Kin Schafer, VACUUM EXTRACTOR OPERATOR [id number] [place] [address] Left lumbar radiculitis (Primary Dx); Spinal stenosis of lumbar region without neurogenic claudication Social History Tobacco Use Types Packs/Day Years Used Date Smoking Tobacco: Former Smokeless Tobacco: Never Tobacco Cessation:Counseling Given: Not Answered Alcohol Use Standard Drinks/Week Comments No 0 (1 standard drink = 0.6 oz pur e alcohol) Comments No Sex and Gender Information Value Date Recorded Sex Assigned at Not on file 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 Gender Identity Not on file Sexual Orientation Not on file Occupation Industry Job Start Date Job End Date Disability Not on file Not on file Not on file documented as of this encounter Last Filed Vital Signs Vital Sign Reading Time Taken Comments Blood Pressure 129/79 12/25/2022 8:16 AM CDT Pulse 76 12/25/2022 8:16 AM CDT Temperature - - Respiratory Rate - - Oxygen Saturation 98% 12/25/2022 8:16 AM CDT Inhaled Oxygen Concentration - - Weight 76.2 kg (168 lb) 12/25/2022 8:16 AM CDT Height 157.5 cm (5' 2.01 ) 12/25/2022 8:16 AM CD T Body Mass Index 30.72 12/25/2022 8:16 AM CDT documented in this encounter Progress Notes * Kin Schafer NP - 12/25/2022 8:00 AM CDT Patient Name: Krissy Oneal : 1955 Today's Date: 12/25/2022 PCP: Bina, Physician Referring: Kin Schafer NP Chief Complaint Patient presents with New Patient Back pain HPI The patient, Krissy Oneal, is a very pleasant 67-year-old female who was referred by her primary carephysician, Dr. David Brar, for further evaluation and management of her chronic lower back pain and left lower extremity pain. Patient reports a history of lower back pain and stiffness for over 10 years. She states that most recently over the past 3-4 months she has developed increasing pain in bilateral lumbar spine left greater than right with pain extending into the left buttock posterior left thigh. She then experiences numbness and tingling mostly in the lateral aspect of the calf and grimes extending to the foot. Pain is present to some degree on a daily basis and is moderate in intensity. She denies any alteration bladder/bowel control, motor weakness, or problems with gait coordination. She does report that her mobility significantly restricted as walking can exacerbate this condition. Patient currently taking Tylenol, Flexeril which is slightly beneficial. She recently received MRI at [facility] along with plain film radiographs. Prior history of pancreatic cancer and Whipple procedure. She does have paresthesia in bilateral toes which she relates to her chemotherapy. Prior treatments: Chiropractic, physical therapy, injection therapy, activity modification, rest, [id number] medication. Allergies Allergen Reactions Iv Contrast Dye [Iodinated [...] mg tablet hydroCHLOROthiazide (HYDRODIURIL) 25 mg tablet losartan (COZAAR) 100 mg tablet sertraline (ZOLOFT) 50 mg tablet simvastatin (ZOCOR) 20 mg tablet ibuprofen (ADVIL,MOTRIN) 800 mg tablet meloxicam (MOBIC) 15 mg tablet quinapril (ACCUPRIL) 40 mg tablet Review of Systems Review of Systems Musculoskeletal: Positive for arthralgias, back pain, joint swelling and myalgias. Neurological: Positive for numbness. Physical Exam Vitals: 12/25/22 0816 BP: 129/79 BP Location: Right arm Patient Position: Sitting Pulse: 76 SpO2: 98% Weight: 76.2 kg (168 lb) Height: 157.5 cm (5' 2.01 ) Body mass index is 30.72 kg/m??. Physical Exam Vitals and nursing note reviewed. Constitutional: General: She is not in acute distress. Appearance: Normal appearance. She is well-developed. She is not diaphoretic. HENT: Head: Normocephalic and atraumatic. Eyes: Conjunctiva/sclera: Conjunctivae normal. Musculoskeletal: General: No tenderness or deformity. Right lower leg: No edema. Left lower leg: No edema. Comments: Patient able to rise on toes and heels without difficulty. It was noted that patient moves with a guarded movement when arising from seated position and initiating her gait. Active lumbar spine forward flexion was painful. Lumbar spine extension nonpainful. Steward's test positive on right ne gative on left. Straight leg raise negative bilaterally. Passive internal external rotation bilateral hips nonpainful. Mild tenderness in the right SI joint. Skin: General: Skin is warm and dry. Neurological: General: No focal deficit present. Mental Status: She is alert and oriented to person, place, and time. Sensory: No sensory deficit. Motor: No weakness or abnormal muscle tone. Coordination: Coordination normal. Deep Tendon Reflexes: Reflexes normal. Comments: Reflexes 2/2, muscle strength 5/5, sensation light touch grossly intact. Psychiatric: Mood and Affect: Mood normal. Behavior: [...] try weight loss and exercise for management. Based on subjective and objective findings patient suffers from lumbar radiculitis. Her pain pattern seems to follow an L5 dermatomal pattern the closest. [facility] This will help further dictate plan of care which may include injection therapy although important note that patient seems to be resistant to pursuing additional injections. Offered gabapentin but patient reports having experienced significant side effects with this medication in the past. She will continue with the Tylenol, muscle relaxer as needed. We will contact patient once results are reviewed to recommend our treatment plan. Based on review of most recent lumbar MRI, she does have moderate foraminal stenosis at L4/L5. I would recommend L4/L5 lumbar epidural with tip to the left. Staff will contact us patient informing her of our recommendations. Other options to consider would be physical therapy, surgical consult. Thank you Dr. David Brar, for the referral of this very pleasant patient to our office and for allowing me to participate in her care. Should you have any questions regarding her care, please feel free to contact me. This dictation was performed using M*Modal dictation. There may be some tile setter supervisor variances which are not appreciated or corrected in this note. documented in this encounter Plan of Treatment [...] on stairs Contact your local community or [facility] for information on exercise, fall prevention programs, or options for improving home safety. documented as of this encounter Visit Diagnoses Diagnosis Left lumbar radiculitis- Primary Spinal stenosis of lumbar region without neurogenic claudication documented in this encounter Historical Medications * This list may reflect changes made after this encounter. budesonide-formot Lucy (SYMBICORT) 160-4.5 mcg/actuation inhalerIndication s:Acute Asthma Attack Inhale 2 puffs 2 (two) times a day as needed (SOB) 05/18/2024 meloxicam (MOBIC) 15 mg tablet Take 1 tablet (15 mg total) by mouth daily 12/11/2022 07/11/2023 losartan (COZAAR) 100 mg tablet Take 1 tablet (100 mg total) by mouth daily 12/02/2022 07/11/2023 added in this encounter Care Teams Coil Finisher Relationship Specialty Start Date End Date No, Physician PCP - General 04/24/18 03/21/23 documented as of this encounter
--- OUTSIDE RECORDS SUMMARY | 2024-08-17 08:47 | XMS_ITS | Encounter Summary ---
Author Organization [facility] Healthcare Address [address] [place] [address] Care Team Providers Care Sludge Filtration Operator Name Role Phone No, Physician Primary Care Provider [phone] Encounter Details Date Type Department Care Team (Late st Contact Info) Description 12/26/2022 Telephone [facility] [address] [place], [place] [id number] [place]asmo [place] [id number] [place] [address] [address] [place], [place] [id number] Social History Tobacco Use Types Packs/Day Years Used Date Smoking Tobacco: Former Smokeless Tobacco: Never Alcohol Use Standard Drinks/Week Comments No 0 (1 standard drink = 0.6 oz pur e alcohol) Comments No Sex and Gender Information Value Date Recorded Sex Assigned at Not on file 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 Author Reduce the likelihood of falling Lifestyle No Deghelder, Jeanne Teresa Note: Below are four things you can [...] stairs Contact your local community or [facility] for information on exercise, fall prevention programs, or options for improving home safety. documented as of this encounter Visit Diagnoses Not on filedocumented in this encounter Care Teams Sludge Filtration Operator Relationship Specialty Start Date End Date No, Physician PCP - General 04/24/18 03/21/23 documented as of this encounter
--- OUTSIDE RECORDS SUMMARY | 2024-08-17 08:47 | XMS_ITS | Encounter Summary ---
Author Organization [facility] Address [address] [place] [address] Phone Care Team Providers Care Release Of Information Clerk Name Role Phone Rosibel Muse MD Primary Care Provider [phone] Reason for Visit * Consultation (Routine) - Closed Specialty Diagnoses / Procedures Referred By Contac t Referred To Contact Minimally Invasive Surgery Diagnoses Ventral hernia Bernie Ball MD [address] [place] [address] Phone: tel: fax: Sabino Luke MD [address] [place] [address] Phone: tel: fax: Referral ID Status Reason Start Date Expiration Date V isits Requested Visits Authorized [id number] Closed Specialty Services Required 03/22/2023 04/20/2024 1 1 Encounter Details Date Type Department Care Team (Late st Contact Info) Description 07/12/2023 11:30 AM FURNITURE UPHOLSTERER APPRENTICE Office Visit [facility] ([facility]) - [facility] Minimally Invasive Surgery [address] [facility] 12th Floor, [place] [address] Sabino Luke MD [address] [place] [address] Incisional hernia, without obstruction or gangrene Social History Tobacco Use Types Packs/Day Years Used Date Smoking Tobacco: Former Smokeless Tobacco: Never Tobacco Cessation:Counseling Given: Not Answered Alcohol Use Standard Drinks/Week Comments No 0 (1 standard drink = 0.6 oz pur e alcohol) Comments No Sex and Gender Information Value Date Recorded Sex Assigned at Not on file Legal Sex Female 8:15 AM FURNITURE UPHOLSTERER APPRENTICE Gender Identity Not on file Sexual Orientation Not on file Occupation Industry Job Start Date Job End Date Disability Not on file Not on file Not on file documented as of this encounter Last Filed Vital Signs Vital Sign Reading Time Taken Comments Blood Pressure 122/80 07/12/2023 11:00 AM FURNITURE UPHOLSTERER APPRENTICE Pulse 86 07/12/2023 11:00 AM FURNITURE UPHOLSTERER APPRENTICE Temperature 36.9 ??C (98.5 ??F) 07/12/2023 11:[address] Respiratory Rate - - Oxygen Saturation - - Inhaled Oxygen Concentration - - Weight 72.1 kg (159 lb) 07/12/2023 11:00 AM FURNITURE UPHOLSTERER APPRENTICE Height 157.5 cm (5' 2 ) 07/12/2023 11:00 AM FURNITURE UPHOLSTERER APPRENTICE Body Mass Index 29.08 07/12/2023 11:00 AM FURNITURE UPHOLSTERER APPRENTICE documented in this encounter Progress Notes * Sabino Luke MD - 07/12/2023 11:30 AM CST Images from the original note were not included. [facility] Minimally Invasive Surgery New Patient Evaluation Krissy Oneal : 1955 REFERRING PHYSICIAN - Bernie Ball MD PCP - Rosibel Muse MD Reason for Visit: Consult requested by Bernie Ball MD for evaluation of ventral incisional hernia HPI: Krissy Oneal is a 67 y.o. female with a complaint of incisional hernia. She underwent open Whipple for pancreatic cancer in 2021, and the current hernia has been around for 1 years. It has been enlarging. She reports having mild discomfort that has has remained the same. The discomfort is worse when she is up and moving around a lot throughout the day. She has not had this repaired in the past. Of note, she recently underwent biopsy of a liver mass which was consistent with metastatic pancreatic cancer. She is scheduled to undergo radiation to the liver in the coming weeks. Patient Factors: Smoking: She reports that she has quit smoking. She has never used smokeless tobacco. BMI: Body mass index is 29.08 kg/m??. Past Surgical History: open Whipple (2021), hysterectomy (~2003), cervical laminectomy, sinus surgery x2, thyroid surgery (age 8, for goiter) Previous Transplant: No Previous Cancer: Yes, describe and list age started: pancreatic cancer, diagnosed 66 yo; currently with recently diagnosed mets to liver Obstructions: No Previous SSI: No Diabetes: Yes - No results found for: HGBA1C History of MRSA: No Hernia Factors: Recurrent hernia: No Number of previous repairs: none Previous mesh: No Previous mesh removed: No Review of Symptoms: A comprehensive review of systems was completed by the patient and reviewed, signed and dated in [facility]. Past medical history, social history and family history were reviewed in the patients Core Review Physical Exam: Blood pressure 122/80, pulse 86, temperature 36.9 ??C (98.5 ??F), temperature source Oral, height 157.5 cm (5' 2 ), weight 72.1 kg (159 lb), not currently . Body mass index is 29.08 kg/m??. GENERAL: No acute distress. NEURO: Alert and oriented x3, mood and affect appropriate. HEENT: Pupils equal. EOMs grossly normal. PULMONARY: Breathing comfortably on room air. CARDIO: Regular rate and rhythm. SKIN: Smooth and dry, no rash GI: soft, nontender, large ventral hernia, midline scar from xiphoid to pubis MUSCULOSKELETAL: Grossly normal range of motion. EXTREMITIES: Warm, well perfused. Diagnostic studies reviewed include: I personally reviewed her most recent CT scan and reviewed it with the patient together which shows large ventral incisional hernia containing bowel. Assessment/Plan: 67 y.o. female presenting for evaluation of an incisional hernia following a Whipple procedure in 2021 for pancreatic cancer. She recently underwent liver biopsy and was found to have metastatic pancreatic cancer. She is scheduled to undergo radiation in the coming weeks. We discussed that repair of her hernia is non-urgent at this time, and she should focus on treatment of the metastatic pancreatic cancer at this time. We will plan to see her back in a few months following this treatment, if she is doing well from a cancer standpoint at that time, we can then discuss timing of hernia repair. Juhi Guthrie MD TEACHING ATTESTATION I have seen and examined the patient along with the resident and agree with their note and plan as documented above. Briefly, patient is a 67 y.o. female with a known history of recurrent and metastatic pancreatic cancer presenting for evaluation of a very large incisional hernia. At this point she is only having mild symptoms related to her hernia. I do think there is no urgency for surgical repair. She is planning to start radiation therapy for the newly identified metastatic lesion. With this point we will wait her outcomes from that treatment and can determine further management from there. This was discussed with the patient and her family and they are understanding of the planned approach. All their questions were answered. Sabino Luke MD Minimally Invasive GI Surgery & Abdominal Wall Reconstruction puttier [facility] [phone] ITURE UPHOLSTERER APPRENTICE documented in this encounter Plan of Treatment [...] Diagnoses Diagnosis Incisional hernia, without obstruction or gangrene documented in this encounter Discontinued Medications Medication Sig Discontinue Reason Start Date End Da te cyclobenzaprine (FLEXERIL) 10 mg tablet 04/04/2018 07/11/2023 doxycycline (doxycycline hyclate) 100 mg capsule doxycycline hyclate 100 mg capsule TAKE 1 CAPSULE BY MOUTH TWICE A DAY 07/11/2023 hydrOXYzine (ATARAX) 25 mg tablet Atarax 25 mg tablet Take 1 tablet 4 times a day by oral route. 07/11/2023 pancrelipase (Creon) 12,000 units of lipase capsule Creon 12,000-38,000-60,000 unit capsule,delayed release TAKE 1 CAPSULE BY MOUTH 3 TIMES DAILY WITH MEALS. 07/11/2023 losartan (COZAAR) 100 mg tablet Take 1 tablet (100 mg total) by mouth daily 12/02/2022 07/11/2023 meloxicam (MOBIC) 15 mg tablet Take 1 tablet (15 mg total) by mouth daily 12/11/2022 07/11/2023 albuterol (PROVENTIL,VENTOLIN) 2.5 mg /3 mL (0.083 %) nebulizer solution Take 3 mL (2.5 mg total) by nebulization every 6 (six) hours as needed for wheezing 07/11/2023 quinapril (ACCUPRIL) 40 mg tablet Take 40 mg by mouth 2 (two) times a day. 07/11/2023 ibuprofen (ADVIL,MOTRIN) 800 mg tabletIndications:Ant i-inflammatory Take 1 tablet (800 mg total) by mouth every 6 (six) hours as needed for pain 07/11/2023 documented as of this encounter Historical Medications * This list may reflect changes made after this encounter. metFORMIN (GLUCOPHAGE) 500 mg tabletIndications :type 2 diabetes mellitus Take 1 tablet (500 mg total) by mouth 2 (two) times a day with meals 05/18/2024 added in this encounter Orders Outpatient Referral Count Last Ordered Date Fir st Ordered Date AMB REFERRAL TO MINIMALLY INVASIVE SURGERY 1 07/12/2023 documented in this encounter Care Teams Release Of Information Clerk Relationship Specialty Start Date End Date Rosibel Muse MD [address] [place] [address] [place] [address] PCP - General Family Medicine 03/22/23 05/11/24 documented as of this encounter
--- OUTSIDE RECORDS SUMMARY | 2024-08-17 08:48 | XMS_ITS | Encounter Summary ---
Author Organization [facility] Address [address] [place] [address] Care Team Providers Care Director Of Annual Giving Name Role Phone No, Physician Primary Care Provider [phone] Encounter Details Date Type Department Care Team (Latest Contact Info) Description 05/22/2018 4:41 PM CDT Hospital Encounter [facility] [address] [place] [address] Discharge Disposition: Discharge to home or self care Social History Tobacco Use Types Packs/Day Years Used Date Smoking Tobacco: Former Smokeless Tobacco: Never Comments Unknown Sex and Gender Information Value Date Recorded Sex Assigned at Not on file 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 Gender Identity Not on file Sexual Orientation Not on file documented as of this encounter Medications at Time of Discharge simvastatin (ZOCOR) 20 mg tabletIndication s:hyperlipidemia Take 1 tablet (20 mg total) by mouth nightly 05/08/2018 05/18/2024 methylPREDNISolo ne (MEDROL DOSEPACK) 4 mg Dosepack Take as directed on package 1 packet 05/22/2018 05/28/2018 amLODIPine (NORVASC) 5 mg tablet 05/16/2018 01/17/2024 ciclesonide (Alvesco) 80 mcg/actuation inhalerIndicatio ns:Maintenance Therapy for Asthma Inhale 1 puff 2 (two) times a day as needed (SOB) 01/07/2014 05/18/2024 cyclobenzaprine (FLEXERIL) 10 mg tablet 04/04/2018 07/11/2023 documented as of this encounter Discharge Disposition Disposition Code Departure Means Destination Discharge to home or self care documented in this encounter Plan of Treatment Not on file documented as of this encounter Procedures Procedure Name Priority Date/Time Associated Diagnosis Comments NEURO CT MR OUTSIDE REFERENCE Routine 05/22/2018 4:41 PM CDT Diagnosis unknown documented in this encounter Results * Neuro CT MR Outside Reference (05/22/2018 4:41 PM CDT) Impressions [facility] - 05/22/2018 4:41 PM CDT These images are for Reference purposes only and have not been reviewed by [facility] Radiology. ??There will be no report generated by a [facility] Radiologist. Narrative [facility] - 05/22/2018 4:41 PM CDT EXAMINATION: ??Images For Reference Purposes Only Tono Eng MD IMG CT PROCEDURES Final Result [facility] documented in this encounter Visit Diagnoses Not on filedocumented in this encounter Care Teams Director Of Annual Giving Relationship Specialty Start Date End Date No, Physician PCP - General 04/24/18 03/21/23 documented as of this encounter
--- OUTSIDE RECORDS SUMMARY | 2024-08-17 08:48 | XMS_ITS | Encounter Summary ---
Author Organization [facility] Address [address] [place] [address] Care Team Providers Care Inbound Customer Service Representative Name Role Phone No, Physician Primary Care Provider [phone] Encounter Details Date Type Department Care Team (Late st Contact Info) Description 06/02/2018 7:50 AM CDT - 06/02/2018 8:10 AM CDT Surgery [facility] [address] [facility] [address] [place] [id number] Loc Huff MD [address] [facility] [address] [address] Injection Epidural Lumbar/Caudal 1 Level Pain Pump Trial W Imaging [address] Surgery Details Date/Time Status Location OR Service Patient Class Case Class Case Type Trauma Case? 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 Patient and family verbalized understanding. Patient discharged home to self care with family. documented in this encounter Medications at Time of Discharge ALPRAZolam (XANAX) 1 mg tabletIndication s:anxiety Take 1 tablet (1 mg total) by mouth nightly as needed for anxiety 4 hydroCHLOROthiaz herman (HYDRODIURIL) 25 mg tabletIndication s:hypertension Take 1 tablet (25 mg total) by mouth director call center sales before breakfast 4 sertraline (ZOLOFT) 50 mg [...] amLODIPine (NORVASC) 5 mg tablet 05/16/2018 4 ciclesonide (Alvesco) 80 mcg/actuation inhalerIndicatio ns:Maintenance Therapy for Asthma Inhale 1 puff 2 (two) times a day as needed (SOB) 01/07/2014 4 cyclobenzaprine (FLEXERIL) 10 mg tablet 04/04/2018 3 ibuprofen (ADVIL,MOTRIN) 800 mg tabletIndication s:Anti-inflammat ory Take 1 tablet (800 mg total) by mouth every 6 (six) hours as needed for pain 3 quinapril (ACCUPRIL) 40 mg tablet Take 40 mg by mouth 2 (two) times a day. 3 documented as of this encounter Discharge Disposition Disposition Code Departure Means Destination Discharge to home or self care documented in this encounter Miscellaneous Notes * Perioperative Nursing Note - Monique Vallejo RN - 06/02/2018 12:41 PM CDT Patient transferred to recovery with minimal assistance. Report given to Higinio Bucio RN * Op Note - Loc Huff MD - 06/02/2018 7:50 AM CDT EPIDURAL STEROID INJECTION [] Cervical [] Thoracic [x] Lumbar [] Caudal INDICATION: Radiating back pain PRE-PROCEDURE DIAGNOSIS: Lumbar radiculopathy POST-PROCEDURE DIAGNOSIS: Same INFORMED CONSENT The patient confirmed that they are not taking any anticoagulants. [] The patient has been prescribed plavix and stopped this medicine days ago. [] The patient has been prescribed Coumadin and stopped this medicine days ago; they had their labsobtained today and their PT and INR were in the normal range for our hospital. After reviewing the reason and purpose and risk of the procedure with the patient, informed consentto proceed with the injection was obtained. A procedural permit was also signed. DESCRIPTION OF PROCEDURE: The patient was placed in the prone position and monitors were applied. Fluoroscopy was used to identify landmarks as well as guide the needle. [] An IV was placed [] Sedation was given. [x] Sedation was not given. The injection area was sterile prepped and draped. Sterile technique was used throughout the procedure time. At the needle entry point, the skin and subcutaneous tissues were infiltrated with lidocaine. An 18-gauge Tuohy needle was advanced to the epidural space at the L4-5 level, using the loss of resistance technique. [] No radiographic contrast was injected due to history of contrast sensitivity. [x] Omnipaque 300 X 0.5 ml was injected, resulting in distribution of contrast in the epidural space. [] There was paresthesias in the . [x] No paresthesias were encountered during needle placement or injection of the solution. With the needle in the epidural space, aspiration was negative for blood or other fluid. 6 cc of medicines were injected consisting of the followincc 1 % [x] lidocaine [] 0.25% bupivacine 1 cc 80 mg [x] methylprednisolone [] triamcinalone [] dexamethasone cc mcg [] clonidine 3 cc normal saline The total amount of steroid injected was [x] 80 mg methylprednisolone [] mg triamcinalone [] mg dexamethasone [] The total amount of clonidine injected was mcg. The procedure was well tolerated, and there were no apparent complications. The patient had [] complete [x] noticeable [] no relief of pain from the injected local anesthetic. Pain intensity 5/10 before and 2/10 after the procedure. The patient was discharged once she fulfilled the hospital's discharge criteria. documented in this encounter Plan of Treatment [...] Procedure Name Priority Date/Time Associated Diagnosis Comments INJECTION EPIDURAL LUMBAR/CAUDAL 1 LEVEL PAIN PUMP TRIAL W IMAGING [id number] 06/02/2018 12:27 PM CDT BACK PAIN documented in this encounter Visit Diagnoses Not on filedocumented in this encounter Administered Medications Inactive Administered Medications - up to 3 most recent administrations Medication Order MAR Action Action Date Dose Rate Site iohexol (OMNIPAQUE) 300 mg iodine/mL injection solution As needed, Starting on Sat06/02/18 at 1238, Intra-Op Given 06/02/2018 12:38 PM CDT 2 mL lidocaine PF (XYLOCAINE) 10 mg/mL (1 %) preservative free injection As needed, Starting on Sat06/02/18 at 1237, Intra-Op Given 06/02/2018 12:37 PM CDT 5 mL methylPREDNISolone acetate (DEPO-medrol) injection As needed, Starting on Sat06/02/18 at 1239, Intra-Op Given 06/02/2018 12:39 PM CDT 80 mg sodium chloride 0.9% flush As needed, Starting on Sat06/02/18 at 1239, Intra-Op Given 06/02/2018 12:39 PM CDT 3 mL documented in this encounter Active and Recently Administered Medications Times are shown in CDT. PRN Medication Order 05/31/2018 06/01/2018 06/02/2018 iohexol (OMNIPAQUE) 300 mg iodine/mL injection solution (CANCELED) As needed, Starting on Sat06/02/18 at 1238, Intra-Op 1238 (Given - Provid er: Loc Huff MD - Comment: lot [id number]; expires 01-28-21) lidocaine PF (XYLOCAINE) 10 mg/mL (1 %) preservative free injection (CANCELED) As needed, Starting on Sat06/02/18 at 1237, Intra-Op 1237 (Given - Provid er: Loc Huff MD) methylPREDNISolone acetate (DEPO-medrol) injection (CANCELED) As needed, Starting on Sat06/02/18 at 1239, Intra-Op 1239 (Given - Provid er: Loc Huff MD) sodium chloride 0.9% flush (CANCELED) As needed, Starting on Sat06/02/18 at 1239, Intra-Op 1239 (Given - Provid er: Loc Huff MD) documented in this encounter Care Teams Inbound Customer Service Representative Relationship Specialty Start Date End Date No, Physician PCP - General 04/24/18 03/21/23 documented as of this encounter
--- OUTSIDE RECORDS SUMMARY | 2024-08-17 08:48 | XMS_ITS | Encounter Summary ---
Author Organization [facility] Healthcare Address [address] [place] [address] Care Team Providers Care Newspaper Inserter Name Role Phone No, Physician Primary Care Provider [phone] Reason for Referral * Diagnostic Imaging (Routine) - Closed Specialty Diagnoses / Procedures Referred By Contac t Referred To Contact Diagnoses Low back pain, non-specific Procedures XR Spine Lumbar Ap Lat Flex Ext min 4 Views Kayleigh Mulligan NP Phone: tel: fax: [facility] Referral ID Status Reason Start Date Expiration Date Visits Re quested Visits Authorized [id number] Closed 05/16/2018 11/25/2019 1 1 Reason for Visit * Diagnostic Imaging (Routine) - Closed Specialty Diagnoses / Procedures Referred By Contac t Referred To Contact Diagnoses Low back pain, non-specific Procedures XR Spine Lumbar Ap Lat Flex Ext min 4 Views Kayleigh Mulligan NP Phone: tel: fax: [facility] Referral ID Status Reason Start Date Expiration Date Visits Re quested Visits Authorized [id number] Closed 05/16/2018 11/25/2019 1 1 Encounter Details Date Type Department Care Team (Latest Contact Info) Description 05/22/2018 9:10 AM CDT - 05/22/2018 11:59 PM CDT Hospital Encounter [facility] [address] [place] [address] Kayleigh Mulligan NP [address] [facility] [address] [place] [address] Low back pain, non-specific Discharge Disposition: Discharge to home or self care Social History Tobacco Use Types Packs/Day Years Used Date Smoking Tobacco: Former Smokeless Tobacco: Never Comments Unknown Sex and Gender Information Value Date Recorded Sex Assigned at Not on file 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 ??Mild thoracolumbar levoscoliosis. 2. ??Moderate L3-L4 and L4-L5 degenerative disc disease. Electronically signed by: Kayleigh Cisneros M.D. Narrative 05/22/2018 9:45 AM CDT EXAMINATION: Lumbar spine minimum 4 views HISTORY: ??Lumbar spondylosis FINDINGS: AP, lateral, flexion, and extension views of the lumbar spine are performed without comparison. ??There is mild levoscoliosis of the thoracolumbar spine. ??Sagittal alignment is normal. ??Normal motion in flexion and extension. ??Vertebral body heights are normal. There is moderate L3-L4 and L4-L5 degenerative disc disease. Procedure Note Kayleigh Cisneros MD - 05/22/2018 EXAMINATION: Lumbar spine minimum 4 views HISTORY: Lumbar spondylosis FINDINGS: AP, lateral, flexion, and extension views of the lumbar spine are performed without comparison. There is mild levoscoliosis of the thoracolumbar spine. Sagittal alignment is normal. Normal motion in flexion and extension. Vertebral body heights are normal. There is moderate L3-L4 and L4-L5 degenerative disc disease. IMPRESSION: 1. Mild thoracolumbar levoscoliosis. 2. Moderate L3-L4 and L4-L5 degenerative disc disease. Electronically signed by: Kayleigh Cisneros M.D. Kayleigh Mulligan NP IMG XR PROCEDURES Hannah l Result documented in this encounter Visit Diagnoses Diagnosis Low back pain, non-specific documented in this encounter Care Teams Newspaper Inserter Relationship Specialty Start Date End Date No, Physician PCP - General 04/24/18 03/21/23 documented as of this encounter
--- OUTSIDE RECORDS SUMMARY | 2024-08-17 08:48 | XMS_ITS | Encounter Summary ---
Author Organization [facility] Healthcare Address [address] [place] [address] Care Team Providers Care Photo Equipment Technician Name Role Phone No, Physician Primary Care Provider [phone] Encounter Details Date Type Department Care Team (Latest Contact Info) Description 05/22/2018 4:43 PM CDT - 05/22/2018 11:59 PM CDT Hospital Encounter [facility] [address] [place] [address] Discharge Disposition: Discharge to home or self care Social History Tobacco Use Types Packs/Day Years Used Date Smoking Tobacco: Former Smokeless Tobacco: Never Comments Unknown Sex and Gender Information Value Date Recorded Sex Assigned at Not on file 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 ??There will be no report generated by a [facility] Radiologist. Narrative [facility] - 05/22/2018 4:43 PM CDT EXAMINATION: ??Images For Reference Purposes Only Tono Eng MD IMG CT PROCEDURES Final Result [facility] documented in this encounter Visit Diagnoses Not on filedocumented in this encounter Care Teams Photo Equipment Technician Relationship Specialty Start Date End Date No, Physician PCP - General 04/24/18 03/21/23 documented as of this encounter
--- OUTSIDE RECORDS SUMMARY | 2024-08-17 08:48 | XMS_ITS | Encounter Summary ---
Author Organization [facility] Address [address] [address] Care Team Providers Care Unit Manager [employer]venience Stores Name Role Phone No, Physician Primary Care Provider [phone] Encounter Details Date Type Department Care Team ([facility] st Contact Info) Description 08/29/2021 Telephone [facility] Out[facility] [address] [address] Axel Jaramillo NP [address] [place] [address] [address] [place] [address] Social History Tobacco Use Types Packs/Day Years Used Date Smoking Tobacco: Former Smokeless Tobacco: Never Alcohol Use Standard Drinks/Week Comments No 0 (1 standard drink = 0.6 oz pur e alcohol) Comments No Sex and Gender Information Value Date Recorded Sex Assigned at Not on file 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 I informed her this was negative. Also informed her of Axel Jaramillo NP order of If symptoms persist past 10-14 day or worsen at anytime follow up with CC or PCP. She voiced understanding. She would like a copy for her oncologist. She will have her pick this up. BUFFER documented in this encounter Plan of Treatment [...] stairs Contact your local community or senior [facility] for information on exercise, fall prevention programs, or options for improving home safety. documented as of this encounter Visit Diagnoses Not on filedocumented in this encounter Care Teams Unit Manager Convenience Stores Relationship Specialty Start Date End Date No, Physician PCP - General 04/24/18 03/21/23 documented as of this encounter
--- OUTSIDE RECORDS SUMMARY | 2024-08-17 08:48 | XMS_ITS | Encounter Summary ---
Author Organization [facility] Healthcare Address [address] [place] [address] Care Team Providers Care Poker Prop Player Name Role Phone No, Physician Primary Care Provider [phone] Encounter Details Date Type Department Care Team (Late st Contact Info) Description 2021 12:40 AM HOUSEHOLD APPLIANCES SERVICE TECHNICIAN Lab [address] [address] Acute nasopharyngitis Social History Tobacco Use Types Packs/Day Years Used Date Smoking Tobacco: Former Smokeless Tobacco: Never Alcohol Use Standard Drinks/Week Comments No 0 (1 standard drink = 0.6 oz pur e alcohol) Comments No Sex and Gender Information Value Date Recorded Sex Assigned at Not on file Legal Sex Female 8:15 AM HOUSEHOLD APPLIANCES SERVICE TECHNICIAN Gender Identity Not on file Sexual Orientation Not on file Occupation Industry Job Start Date Job End Date Disability Not on file Not on file Not on file documented as of this encounter Miscellaneous Notes * Result Encounter Note - Axel Jaramillo NP - 2021 7:21 PM CST Please notify patient of negative covid-19 results. If symptoms persist past 10- 14 days or worsen at anytime follow up with the [facility] or your Primary Care Provider. EHOLD APPLIANCES SERVICE TECHNICIAN documented in this encounter Plan of Treatment [...] on stairs Contact your local community or [facility] for information on exercise, fall prevention programs, or options for improving home safety. documented as of this encounter Procedures Procedure Name Priority Date/Time Associated Diagnosis Comments COVID-19 CORONAVIRUS RNA Routine 08/27/2021 3:52 PM HOUSEHOLD APPLIANCES SERVICE TECHNICIAN Acute nasopharyngitis documented in this encounter Results * COVID-19 Coronavirus RNA Nasopharyngeal (08/27/2021 3:52 PM HOUSEHOLD APPLIANCES SERVICE TECHNICIAN) COVID-19 RNA Not Detected [facility] Comment: Interpretive Data Synonyms for this test include: PCR and NAAT . ??Testing performed by the [facility] Molecular Infectious Disease [facility]. The 2019-Novel Coronavirus Assay (COVID-19) Real Time RT-PCR assay is for in vitro diagnostic use under FDA emergency use authorization only. A negative RT-PCR result does not preclude infection with COVID-19 and should not be used as the sole basis for treatment or other patient management decisions. ??Additional sample types have been validated according to CLIA regulations. ?? Current Interpretive Data was last revised on September 15, 2020. Testing performed by: [facility], [address] [place]., [address] First COVID-19 test? No [facility] Comment:Testing performed by : [facility], [address] [place]., [address] Employeed in healthcare? No [facility] Comment:Testing performed by : [facility], [address] [place]., [address] status? No [facility] Comment:Testing performed by : [facility], [address] [place]., [address] Group care resident? No [facility] Comment:Testing performed by : [facility], [address] [place]., [address] Hospitalized? No JASMIN Comment:Testing performed by : [facility], [address] [place]., [address] Is patient in ICU? No [facility] Comment:Testing performed by : [facility], [address] [facility], [address] Symptomatic as defined by CDC? Yes J[facility]MIN Comment:Testing performed by : [facility], [address] [facility], [address] Nasopharyngeal 08/27/2021 3: 52 PM HOUSEHOLD APPLIANCES SERVICE TECHNICIAN 2021 6:18 AM HOUSEHOLD APPLIANCES SERVICE TECHNICIAN Narrative JASMIN - 2021 7:05 PM HOUSEHOLD APPLIANCES SERVICE TECHNICIAN What is the reason for testing?->Symptoms of COVID-19 in high-risk group??(Batched) Date of Symptom Onset->08/25/21 us Axel Jaramillo NP LAB MICROBIOLOGY - GENERAL JAYNE DÍAZ Final Result JASMIN [address] Department of Laboratories [place], [place] [id number] documented in this encounter Visit Diagnoses Diagnosis Acute nasopharyngitis Acute nasopharyngitis (common cold) documented in this encounter Additional Health Concerns Infection Onset Date Last Indicated Resolved Time COVID: Suspected 08/27/2021 08/27/2021 2021 7:06 PM HOUSEHOLD APPLIANCES SERVICE TECHNICIAN documented as of this encounter Care Teams Poker Prop Player Relationship Specialty Start Date End Date No, Physician PCP - General 04/24/18 03/21/23 documented as of this encounter
--- OUTSIDE RECORDS SUMMARY | 2024-08-17 08:48 | XMS_ITS | Encounter Summary ---
Author Organization [facility] Healthcare Address [address] [place] [address] Care Team Providers Care Middle School Baseball Coach Name Role Phone No, Physician Primary Care Provider [phone] Encounter Details Date Type Department Care Team (Late st Contact Info) Description 06/23/2018 7:25 AM SHELTER CASE MANAGER - 06/23/2018 7:45 AM [facility] [address] [place] [id number] Loc Huff MD [address] [facility] [address] [address] Injection Epidural Lumbar/Caudal 1 Level Pain Pump Trial [facility] [address] Surgery Details Date/Time Status Location OR Service Patient Class Case Class Case Type Trauma Case? 06/23/2018 7:25 AM Posted [facility] Procedure Pain Management Outpatient Elective Panel 1 Procedure LRB Anes Op Region Wound Class Comments Injection Epidural Lumbar/Ca udal 1 Level Pain Pump Trial [facility] [address] N/A Surgeon Surgeon Role Service Panel Loc [...] on file Legal Sex Female 8:15 AM SHELTER CASE MANAGER Gender Identity Not on file Sexual Orientation Not on file Occupation Industry Job Start Date Job End Date Disability Not on file Not on file Not on file documented as of this encounter Discharge Instructions * Discharge Instructions* Nicolle Pineda, RN - 06/23/2018 10:01 AM SHELTER CASE MANAGER See discharge instruction sheet. TER CASE MANAGER documented in this encounter Medications at Time of Discharge ALPRAZolam (XANAX) 1 mg tabletIndication s:anxiety Take 1 tablet (1 mg total) by mouth nightly as needed for anxiety 4 hydroCHLOROthiaz herman (HYDRODIURIL) 25 mg tabletIndication s:hypertension Take 1 tablet (25 mg total) by mouth club lounge attendant before breakfast 4 sertraline (ZOLOFT) 50 mg [...] Miscellaneous Notes * Perioperative Nursing Note - Jennifer Wetzel RN - 06/23/2018 9:36 AM SHELTER CASE MANAGER Pt tolerated procedure well. Pt assisted to recovery room with minimal assist. Report given to Nicolle Pineda RN. TER CASE MANAGER * Perioperative Nursing Note - Jennifer Wetzel RN - 06/23/2018 9:30 AM SHELTER CASE MANAGER Pt states that she has an IV contrast allergy but had no reaction during the last LESI. TER CASE MANAGER * Op Note - Loc Huff MD - 06/23/2018 7:25 AM CST EPIDURAL STEROID INJECTION [] Cervical [] Thoracic [x] Lumbar [] Caudal ?? INDICATION: Radiating back pain ?? PRE-PROCEDURE DIAGNOSIS: Lumbar radiculopathy ?? POST-PROCEDURE DIAGNOSIS: Same ?? INFORMED CONSENT The patient confirmed that they are not taking any anticoagulants. [] The patient has been prescribed plavix and stopped this medicine days ago. [] The patient has been prescribed Coumadin and stopped this medicine days ago; they had their labsobtained today and their PT and INR were in the normal range for our hospital. ?? After reviewing the reason and purpose and risk of the procedure with the patient, informed consentto proceed with the injection was obtained. A procedural permit was also signed. ?? DESCRIPTION OF PROCEDURE: The patient was placed in the prone position and monitors were applied. Fluoroscopy was used to identify landmarks as well as guide the needle. ?? [] An IV was placed [] Sedation was given. [x] Sedation was not given. ?? The injection area was sterile prepped and draped. Sterile technique was used throughout the procedure time. At the needle entry point, the skin and subcutaneous tissues were infiltrated with lidocaine. An 18-gauge Tuohy needle was advanced to the epidural space at the L3-4 level, using the loss of resistance technique. ? [] No radiographic contrast was injected due to history of contrast sensitivity. [x] Omnipaque 300 X 0.5 ml was injected, resulting in distribution of contrast in the epidural space. ?? [] There was paresthesias in the . [x] No paresthesias were encountered during needle placement or injection of the solution. With the needle in the epidural space, aspiration was negative for blood or other fluid. ?? 6 cc of medicines were injected consisting of the followincc 1 % [x] lidocaine [] 0.25% bupivacine 1 cc 80 mg [x] methylprednisolone [] triamcinalone [] dexamethasone cc mcg [] clonidine 3 cc normal saline ?? The total amount of steroid injected was [x] 80 mg methylprednisolone [] mg triamcinalone [] mg dexamethasone [] The total amount of clonidine injected was mcg. ?? The procedure was well tolerated, and there were no apparent complications. ?? The patient had [x] complete [] noticeable [] no relief of pain from the injected local anesthetic. Pain intensity 3/10 before and 0/10 after the procedure. ?? The patient was discharged once she fulfilled the hospital's discharge criteria. ?? TER CASE MANAGER documented in this encounter Plan of Treatment [...] 1 LEVEL PAIN PUMP TRIAL W IMAGING [address] 06/23/2018 9:24 AM SHELTER CASE MANAGER lesi documented in this encounter Visit Diagnoses Not on filedocumented in this encounter Administered Medications Inactive Administered Medications - up to 3 most recent administrations Medication Order MAR Action Action Date Dose Rate Site iohexol (OMNIPAQUE) 300 mg iodine/mL injection solution As needed, Starting on 06/23/18 at 0933, Intra-Op Given 06/23/2018 9:33 AM SHELTER CASE MANAGER 2 mL lidocaine PF (XYLOCAINE) 10 mg/mL (1 %) preservative free injection As needed, Starting on 06/23/18 at 0933, Intra-Op Given 06/23/2018 9:33 AM SHELTER CASE MANAGER 2 mL methylPREDNISolone acetate (DEPO-medrol) injection As needed, Starting on 06/23/18 at 0934, Intra-Op Given 06/23/2018 9:34 AM SHELTER CASE MANAGER 80 mg documented in this encounter Active and Recently Administered Medications Times are shown in SHELTER CASE MANAGER. PRN Medication Order 06/21/2018 06/22/2018 06/23/2018 iohexol (OMNIPAQUE) 300 mg iodine/mL injection solution (CANCELED) As needed, Starting on 06/23/18 at 0933, Intra-Op 0933 (Given - Provid er: Loc Huff MD - Comment: lot [id number] exp 03/12/21) lidocaine PF (XYLOCAINE) 10 mg/mL (1 %) preservative free injection (CANCELED) As needed, Starting on 06/23/18 at 0933, Intra-Op 0933 (Given - Provid er: Loc Huff MD) methylPREDNISolone acetate (DEPO-medrol) injection (CANCELED) As needed, Starting on 06/23/18 at 0934, Intra-Op 0934 (Given - Provid er: Loc Huff MD) documented in this encounter Care Teams Middle [employer] Baseball Coach Relationship Specialty Start Date End Date No, Physician PCP - General 04/24/18 03/21/23 documented as of this encounter
--- OUTSIDE RECORDS SUMMARY | 2024-08-17 08:48 | XMS_ITS | Encounter Summary ---
Author Organization [facility] Healthcare Address [address] [place] [address] Care Team Providers Care Methodologist Name Role Phone No, Physician Primary Care Provider [phone] Encounter Details Date Type Department Care Team (Late st Contact Info) Description 07/08/2018 Telephone [facility] at [address] [place] [address] Loc Huff MD [address]22 [facility] [address] [address] Social History Tobacco Use Types Packs/Day Years Used Date Smoking Tobacco: Former Smokeless Tobacco: Never Alcohol Use Standard Drinks/Week Comments No 0 (1 standard drink = 0.6 oz pur e alcohol) Comments No Sex and Gender Information Value Date Recorded Sex Assigned at Not on file Legal Sex Female 8:15 AM CORRECTIONAL PROGRAM OFFICER Gender Identity Not on file Sexual Orientation Not on file Occupation Industry Job Start Date Job End Date Disability Not on file Not on file Not on file documented as of this encounter Miscellaneous Notes * Telephone Encounter - Kathleen العراقي RN - 07/17/2018 10:26 AM CST Pt has an appt scheduled 07-31-18 ECTIONAL PROGRAM OFFICER * Telephone Encounter - Kathleen العراقي RN - 07/15/2018 8:30 AM CST Left message for pt with response from Dr. Huff. ECTIONAL PROGRAM OFFICER * Telephone Encounter - Loc Huff MD - 07/11/2018 10:23 AM CORRECTIONAL PROGRAM OFFICER Repeat lesi Do PT ECTIONAL PROGRAM OFFICER * Telephone Encounter - Kathleen العراقي RN - 07/10/2018 2:56 PM CST Spoke with pt who states on 07-07-18 after lying down for a nap she awoke with LBP and lf hip pain.She states she had difficulty standing, difficulty sitting to standing position. He needed to assist her with walking. She went to the ER at [facility] in [place], [place]. She was given Prednisone and HC 5/325 mg #6. She was instructed to take the Hydrocodone for pain >6/10. She states she has on ly taken one tab since ER visit. She states her pain is 2-4/10 with walking. She did go to PT on 07-08-18 but states it is not helping. She has an appt scheduled for 07-31-18. She would like to know what the plan is now. ECTIONAL PROGRAM OFFICER * Telephone Encounter - Kathleen العراقي RN - 07/09/2018 1:36 PM CST Left message for pt to return call. ECTIONAL PROGRAM OFFICER * Telephone Encounter - Kristine Elias - 07/08/2018 11:02 AM CORRECTIONAL PROGRAM OFFICER Please call patient regarding left leg and back pain. ECTIONAL PROGRAM OFFICER documented in this encounter Plan of Treatment [...] stairs Contact your local community or senior [facility] for information on exercise, fall prevention programs, or options for improving home safety. documented as of this encounter Visit Diagnoses Not on filedocumented in this encounter Care Teams Methodologist Relationship Specialty Start Date End Date No, Physician PCP - General 04/24/18 03/21/23 documented as of this encounter
--- OUTSIDE RECORDS SUMMARY | 2024-08-17 08:48 | XMS_ITS | Encounter Summary ---
Author Organization [facility] Healthcare Address [address] [place] [address] Care Team Providers Care Kitchen Bath Designer Name Role Phone No, Physician Primary Care Provider [phone] Encounter Details Date Type Department Care Team (Late st Contact Info) Description 06/23/2018 8:19 AM DIGITAL SPECIALIST - 06/23/2018 10:08 AM DIGITAL SPECIALIST Hospital Encounter [facility] [address] [place] [address] Loc Huff MD 2022 [facility] [address] [address] Discharge Disposition: Discharge to home or self care Social History Tobacco Use Types Packs/Day Years Used Date Smoking Tobacco: Former Smokeless Tobacco: Never Alcohol Use Standard Drinks/Week Comments No 0 (1 standard drink = 0.6 oz pur e alcohol) Comments No Sex and Gender Information Value Date Recorded Sex Assigned at Not on file Legal Sex Female 8:15 AM DIGITAL SPECIALIST Gender Identity Not on file Sexual Orientation Not on file Occupation Industry Job Start Date Job End Date Disability Not on file Not on file Not on file documented as of this encounter Last Filed Vital Signs Vital Sign Reading Time Taken Comments Blood Pressure 123/81 06/23/2018 9:58 AM DIGITAL SPECIALIST Pulse 80 06/23/2018 9:58 AM DIGITAL SPECIALIST Temperature - - Respiratory Rate 16 06/23/2018 9:58 AM DIGITAL SPECIALIST Oxygen Saturation 100% 06/23/2018 9:58 AM DIGITAL SPECIALIST Inhaled Oxygen Concentration - - Weight - - Height - - Body Mass Index - - documented in this encounter Discharge Instructions * Discharge Instructions* Nicolle Pineda RN - 06/23/2018 10:01 AM DIGITAL SPECIALIST See discharge instruction sheet. TAL SPECIALIST documented in this encounter Medications at Time of Discharge ALPRAZolam (XANAX) 1 mg tabletIndication s:anxiety Take 1 tablet (1 mg total) by mouth nightly as needed for anxiety 4 hydroCHLOROthiaz herman (HYDRODIURIL) 25 mg tabletIndication s:hypertension Take 1 tablet (25 mg total) by mouth racket stringer before breakfast 4 sertraline (ZOLOFT) 50 mg [...] Jennifer Wetzel RN - 06/23/2018 9:36 AM DIGITAL SPECIALIST Pt tolerated procedure well. Pt assisted to recovery room with minimal assist. Report given to Nicolle Pineda RN. TAL SPECIALIST * Perioperative Nursing Note - Jennifer Wetzel RN - 06/23/2018 9:30 AM DIGITAL SPECIALIST Pt states that she has an IV contrast allergy but had no reaction during the last LESI. TAL SPECIALIST * Op Note - Loc Huff MD [...] she fulfilled the hospital's discharge criteria. ?? TAL SPECIALIST documented in this encounter Plan of Treatment [...] 1 LEVEL PAIN PUMP TRIAL W IMAGING [id number] 06/23/2018 9:24 AM DIGITAL SPECIALIST lesi documented in this encounter Visit Diagnoses Not on filedocumented in this encounter Active and Recently Administered Medications Times are shown in DIGITAL SPECIALIST. PRN Medication Order 06/21/2018 06/22/2018 06/23/2018 iohexol (OMNIPAQUE) 300 mg iodine/mL injection solution (CANCELED) As needed, Starting on 06/23/18 at 0933, Intra-Op 0933 (Given - Provid er: Loc Huff MD - Comment: lot [id number] exp 03/12/21) lidocaine PF (XYLOCAINE) 10 mg/mL (1 %) preservative free injection (CANCELED) As needed, Starting on 06/23/18 at 0933, Intra-Op 0933 (Given - Provid er: Loc Huff MD) methylPREDNISolone acetate (DEPO-medrol) injection (CANCELED) As needed, Starting on Sat06/23/18 at 0934, Intra-Op 0934 (Given - Provid er: Loc Huff MD) documented in this encounter Orders Medications Ordered That James ht Not Have Been Administered Count Last Ordered Date First Ordered Date iohexol (OMNIPAQUE) 300 mg i odine/mL injection solution 1 06/23/2018 lidocaine PF (XYLOCAINE) 10 mg/mL (1 %) preservative free injection 1 06/23/2018 methylPREDNISolone acetate ( DEPO-medrol) injection 1 06/23/2018 documented in this encounter Care Teams Kitchen Bath Designer Relationship Specialty Start Date End Date No, Physician PCP - General 04/24/18 03/21/23 documented as of this encounter
--- OUTSIDE RECORDS SUMMARY | 2024-08-17 08:48 | XMS_ITS | Encounter Summary ---
Author Organization [facility] Healthcare Address [address] [place] [address] Care Team Providers Care Batch Roller Operator Name Role Phone No, Physician Primary Care Provider [phone] Reason for Visit * Reason Comments Initial Consult * Pain Management (Routine) - Closed Specialty Diagnoses / Procedures Referred By Contact Referred To Contact Anesthesiology / Pain Management Diagnoses Back pain, unspecified back location, unspecified back pain laterality, unspecified chronicity Radicular low back pain NT EVAL + LESI (NBT) Procedures INITIAL VISIT AND PROCEDURE Rosibel Muse MD Phone: tel:[phone] fax:[phone] Loc Huff MD [address] [address] Phone: tel: fax: Referral ID Status Reason Start Date Expiration Date Visits Re quested Visits Authorized [id number] Closed 05/30/2018 11/26/2018 12 12 Encounter Details Date Type Department Care Team (Late st Contact Info) Description 06/02/2018 10:15 AM CDT Office Visit [facility] [place] [id number] [facility] [address] [place] [address] Kayleigh Mulligan, HARVEY [address] [facility] [address] [place] [address] Loc Huff MD [address] [place] [id number] Lumbar radiculopathy (Primary Dx); Back pain, unspecified back location, unspecified back pain laterality, unspecified chronicity; Radicular low back pain Discharge Disposition: Discharge to home or self care Social History Tobacco Use Types Packs/Day Years Used Date Smoking Tobacco: Former Smokeless Tobacco: Never Comments Unknown Sex and Gender Information Value Date Recorded Sex Assigned at Not on file Legal Sex Female 8:15 AM FUN HOUSE OPERATOR Gender Identity Not on file Sexual Orientation Not on file documented as of this encounter Last Filed Vital Signs Vital Sign Reading Time Taken Comments Blood Pressure 171/87 06/02/2018 10:00 AM CDT Pulse 72 06/02/2018 10:00 AM CDT Temperature 36.2 ??C (97.2 ??F) 06/02/2018 10:00 AM C DT Respiratory Rate 18 06/02/2018 10:00 AM CDT Oxygen Saturation 96% 06/02/2018 10:00 AM CDT Inhaled Oxygen Concentration - - Weight - - Height - - Body Mass Index - - documented in this encounter Discharge Disposition Disposition Code Departure Means Destination Discharge to home or self care documented in this encounter Progress Notes * Loc Huff MD - 06/02/2018 10:15 AM CDT S Refer from NSurg for consideration of LESI Disabled since 2013 Back, anxiety and depression LBP into anterior-lateral LLE to knee Worsens with walking and prolonged sitting Better with laying down 10+ years of back problems Never had back surgery Varying responses to spinal injections and PT She recalls an ablation giving her a month of relief meds MR Ibuprofen Lives with O CONSTITUTIONAL: [x] General appearance normal. [x] Nutrition appearance [] Under Nourished [] Appropriately Nourished [x] [place] Nourished ] [] Morbidly Obese [x] Good grooming EYES: [x] Normal conjunctivae and lids EARS / NOSE / MOUTH / THROAT: [x] External inspection of ears normal. RESPIRATORY: [x] Normal effort. No evidence of any distress. CHEST: [x] Symmetric GASTROINTESTINAL: [] No guarding [] No masses [] No tenderness [] No rebound tenderness MUSCULOSKELETAL EXAMINATION: [] Gait normal. [x] Antalgic gait. [x] Slow gait. [] Unsteady gait. [] Station normal. Motor Examination: [] Strength is 5/5 throughout upper and lower extremities. [] Strength is 5/5 in the upper extremities. [] Strength in the upper extremities is normal except [] Strength is 5/5 in the legs. [x] Strength is 5/5 in the legs except L hip flexor 4/5 Sensory Examination: [] Intact to gross touch to bilateral upper extremities. [] Intact to gross touch to bilateral lower extremities. [] Intact to gross touch in upper extremity except [] Intact to gross touch in lower extremity except Neck: Passive range of motion [] Normal extension. [] Incomplete extension with an approximation of the total range [] Normal flexion. [] Incomplete flexion with an approximation of the total range [] Normal lateral rotation [] Incomplete lateral rotation with an approximation of the total range exacerbated their typical pain [] No tenderness to palpation [] Tenderness was appreciated [] Paraspinal muscle spasm present Thorax: [] No thoracic spine tenderness. [] Thoracic paravertebral spasm noted [] No Kyphosis appreciated [] No Scoliosis appreciated Lumbar-Sacral Region: Passive range of motion [] Normal extension. [] Incomplete extension with an approximation of the total range [] Normal flexion. [] Incomplete flexion with an approximation of the total range [] Normal lateral bending [] Incomplete lateral bending with an approximation of the total range exacerbated their typical pain [] Paraspinous muscles normal. [] Paraspinous muscle spasm noted. Knee range of motion Flexion is Extension is [] Instability was not appreciated [] No tenderness found. REFLEXES: Left: Biceps: [] Absent [] Diminished [] Normal [] Hyper/Brisk [] Clonus Triceps [] Absent [] Diminished [] Normal [] Hyper/Brisk [] Clonus Knee: [] Absent [] Diminished [x] Normal [] Hyper/Brisk [] Clonus Ankle: [] Absent [] Diminished [x] Normal [] Hyper/Brisk [] Clonus Right: Biceps: [] Absent [] Diminished [] Normal [] Hyper/Brisk [] Clonus Triceps [] Absent [] Diminished [] Normal [] Hyper/Brisk [] Clonus Knee: [] Absent [] Diminished [x] Normal [] Hyper/Brisk [] Clonus Ankle: [] Absent [] Diminished [x] Normal [] Hyper/Brisk [] Clonus NEUROLOGIC EXAM: [] Cranial nerves 2-12 were intact. [] Finger to nose normal was normally bilaterally [] Romberg normal. PSYCHIATRIC: [x] Normal orientation. [x] Normal speech patterns. [x] Memory in general appeared to be intact. [x] Normal affect. [x] Normal insight and judgement. A LR P D/w Her the dx D/w her tx options She opted to follow NSurg rec lesi today Repeat in 3 weeks prn Told her to use a cane until her hip is strengthened documented in this encounter Plan of Treatment [...] stairs Contact your local community or senior [place] for information on exercise, fall prevention programs, or options for improving home safety. documented as of this encounter Visit Diagnoses Diagnosis Lumbar radiculopathy- Primary Thoracic or lumbosacral neuritis or radiculitis, unspecified Back pain, unspecified back location, unspecified back pain laterality, unspecified chronicity Radicular low back pain documented in this encounter Historical Medications * This list may reflect changes made after this encounter. albuterol (PROVENTIL,MISHEL JANETT) 2.5 mg /3 mL (0.083 %) nebulizer solution Take 3 mL (2.5 mg total) by nebulization every 6 (six) hours as needed for wheezing 3 quinapril (ACCUPRIL) 40 mg tablet Take 40 mg by mouth 2 (two) times a day. 3 ibuprofen (ADVIL,MOTRIN) 800 mg tabletIndication s:Anti-inflammat ory Take 1 tablet (800 mg total) by mouth every 6 (six) hours as needed for pain 3 ALPRAZolam (XANAX) 1 mg tabletIndication s:anxiety Take 1 tablet (1 mg total) by mouth nightly as needed for anxiety 4 simvastatin (ZOCOR) 20 mg tabletIndication s:hyperlipidemia Take 1 tablet (20 mg total) by mouth nightly 05/08/2018 4 sertraline (ZOLOFT) 50 mg tabletIndication s:Anxiety with Depression Take 1 tablet (50 mg total) by mouth every evening 4 hydroCHLOROthiaz herman (HYDRODIURIL) 25 mg tabletIndication s:hypertension Take 1 tablet (25 mg total) by mouth binder and box builder before breakfast 4 amLODIPine (NORVASC) 5 mg tablet 05/16/2018 4 added in this encounter Orders Outpatient Referral Count Last Ordered Date Fir st Ordered Date AMB REFERRAL TO PAIN MANAGEMENT 1 8 documented in this encounter Care Teams Batch Roller Operator Relationship Specialty Start Date End Date No, Physician PCP - General 04/24/18 03/21/23 documented as of this encounter
--- OUTSIDE RECORDS SUMMARY | 2024-08-17 08:48 | XMS_ITS | Encounter Summary ---
Author Organization [facility] Address [address] [place] [address] Phone Care Team Providers Care Small Offset Printer Name Role Phone No, Physician Primary Care Provider [phone] Reason for Referral * Consultation (Routine) - Closed Specialty Diagnoses / Procedures Referred By Contac t Referred To Contact Pain Management Diagnoses Back pain, unspecified back location, unspecified back pain laterality, unspecified chronicity Radicular low back pain Kayleigh Mulligan NP Phone: tel: fax: [address] [address] Referral ID Status Reason Start Date Expiration Date V isits Requested Visits Authorized [id number] Closed Specialty Services Required 05/22/2018 12/01/2019 1 1 Comments For Left SI joint Injection * Diagnostic Imaging (Routine) - Closed Specialty Diagnoses / Procedures Referred By Contac t Referred To Contact Diagnoses Low back pain, non-specific Procedures XR Spine Lumbar Ap Lat Flex Ext min 4 Views Kayleigh Mulligan NP Phone: tel: fax: [facility] Referral ID Status Reason Start Date Expiration Date Visits Re quested Visits Authorized [id number] Closed 05/16/2018 11/25/2019 1 1 Reason for Visit * Consultation (Routine) - Closed Specialty Diagnoses / Procedures Referred By Divina berman Referred To Contact Neurosurgery Diagnoses Back pain, unspecified back location, unspecified back pain laterality, unspecified chronicity Referral, Self Referral ID Status Reason Start Date Expiration Date V isits Requested Visits Authorized [id number] Closed Specialty Services Required 05/01/2018 10/28/2018 12 12 Encounter Details Date Type Department Care Team (Late st Contact Info) Description 05/22/2018 10:00 AM CDT Office Visit [facility] Neurosurgery [address] [facility] [address] [place] [address] [place] [address] Kayleigh Mulligan NP [address] [facility] [address] [place] [address] Low back pain, non-specific (Primary Dx); Back pain, unspecified back location, unspecified back pain laterality, unspecified chronicity; Radicular low back pain Social History Tobacco Use Types Packs/Day Years Used Date Smoking Tobacco: Former Smokeless Tobacco: Never Tobacco Cessation:Counseling Given: No Comments No Sex and Gender Information Value Date Recorded Sex Assigned at Not on file 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 Gender Identity Not on file Sexual Orientation Not on file Occupation Industry Job Start Date Job End Date Disability Not on file Not on file Not on file documented as of this encounter Last Filed Vital Signs Vital Sign Reading Time Taken Comments Blood Pressure 120/79 05/22/2018 10:41 AM CDT Pulse 77 05/22/2018 10:41 AM CDT Temperature - - Respiratory Rate - - Oxygen Saturation - - Inhaled Oxygen Concentration - - Weight 72.8 kg (160 lb 9.6 oz) 05/22/2018 10:41 AM CDT Height 157.5 cm (5' 2 ) 05/22/2018 10:41 AM CDT Body Mass Index 29.37 05/22/2018 10:41 AM CDT documented in this encounter Ordered Prescriptions Prescription Sig Dispense Quantity Refills Last Filled Start Date End Date methylPREDNISolone (MEDROL DOSEPACK) 4 mg Dosepack Take as directed on package 1 packet 05/22/2018 8 documented in this encounter Progress Notes * Isaak Kayleigharsenio Anne, MILL TENDER WASHING - 05/22/2018 10:00 AM CDT NEW PATIENT VISIT CHIEF COMPLAINT Left leg and groin pain HISTORY OF PRESENT ILLNESS Krissy Oneal presents to clinic today as a referral from Dr. Muse for evaluation of lumbar spine. She reports a several year history of back pain but over the last 3-4 months she has had worsening of her symptoms. She describes the pain as a burning, tingling sensation that radiates down her buttocks to leg left worse than right. Standing, sitting, walking for prolonged periods of time can excerbate the pain. She rates the pain 6/10 at its worst. She has tried physical therapy and injections in 2012 but has not tried anything recently. She does report some numbness to her left foot and toes. She denies any bowel or bladder difficulty. PAST MEDICAL HISTORY She has a past medical history of Anxiety; Asthma; Cervical stenosis (uterine cervix); Chronic kidney disease; Depression; Ear problems; Gastric reflux; Hypertension; Kidney infection; and Lumbar stenosis. PAST SURGICAL HISTORY She has a past surgical history that includes Hysterectomy; Cervical spine surgery; and Sinus surgery. FAMILY HISTORY Her family history includes Cancer in her brother and father. MEDICATIONS Current Outpatient Prescriptions: ??? amLODIPine (NORVASC) 5 mg tablet, , Disp: , Rfl: ??? cyclobenzaprine (FLEXERIL) 10 mg tablet, , Disp: , Rfl: ??? hydroCHLOROthiazide (HYDRODIURIL) 25 mg tablet, Take 25 mg by mouth daily., Disp: , Rfl: ??? ibuprofen (ADVIL,MOTRIN) 800 mg tablet, Take 800 mg by mouth every 6 (six) hours as needed for pain., Disp: , Rfl: ??? quinapril (ACCUPRIL) 40 mg tablet, Take 40 mg by mouth 2 (two) times a day., Disp: , Rfl: ??? sertraline (ZOLOFT) 50 mg tablet, Take 50 mg by mouth daily., Disp: , Rfl: ??? simvastatin (ZOCOR) 20 mg tablet, , Disp: , Rfl: ??? albuterol (PROVENTIL,VENTOLIN) 2.5 mg /3 mL (0.083 %) nebulizer solution, Take 2.5 mg by nebulization every 6 (six) hours as needed for wheezing., Disp: , Rfl: ??? ALPRAZolam (XANAX) 1 mg tablet, Take 1 mg by mouth nightly as needed for anxiety., Disp: , Rfl: ALLERGIES She is allergic to amoxicillin; macrolide antibiotics; naproxen sodium; penicillins; and sulfadiazine. SOCIAL HISTORY She reports that she has quit smoking. She has never used smokeless tobacco. REVIEW OF SYSTEMS Review of Systems Musculoskeletal: Positive for back pain and neck pain. Psychiatric/Behavioral: Positive for depression. The patient is nervous/anxious. A review of 10 systems was completed and negative unless noted above in history of present illness or intake questionnaire. Objective VITAL SIGNS BP 120/79 Pulse 77 Ht 157.5 cm (5' 2 ) Wt 72.8 kg (160 lb 9.6 oz) BMI 29.37 kg/m?? PHYSICAL EXAM Ortho Exam Physical Exam On physical examination the patient is a female in no apparent distress.. Cranial nerves 2-12 were grossly intact. The patient has 5/5 strength in deltoids, biceps, triceps, therapist's assistant, and intrinsic hand muscles. The patient has 5/5 strength in the iliopsoas, quads, hamstrings, gastrocnemius/soleus, anterior tibials, and extensor hallucis longus. ?? throughout with normal muscular bulk and tone. Sensation was intact to light touch pinprick and proprioception. . Deep tendon reflexes were 2+ throughout. Mandujano's or Babinski's reflexes were absent. her gait was Antalgic. Tandem gait and Romberg werewithin normal limits. Heel and toe walking were within normal limits. Normal range of motion on flex ion-extension and rotation of neck. Normal range of motion on flexion, extension and lateral bending of the lumbosacral spine. Straight leg raise positive on the left. No significant pain to palpation of her cervical thoracic or lumbar midline and paraspinous muscular. REVIEW OF IMAGES Lumbar x-rays completed today demonstrated degenerative changes worse at L3/4 and L4/5. Lumbar MRI completed on April 05, 2018 demonstrated foraminal stenosis at L4/5 with overall mild central stenosis through central canal. Plan I had a long discussion with Krissy Oneal regarding her complaints as well as imaging. I have recommended that she follow up with pain management for an injection and follow with some physical therapy. I stated I will send a referral to one of our pain management doctors whose office will contact her to arrange appointments. We will see her on as needed basis. TIME MANAGEMENT Time spent reviewing the patient was 60 minutes. Greater than 50% of total time was spent face to face counseling and coordinating care with the patient. HARVEY Valles NP Dictated but not reviewed; may be subject to public bath attendant variances. documented in this encounter Plan of Treatment Scheduled Referrals Name Type Priority Associated Diagnoses Order Schedule Ambulatory referral to Pain Management Outpatient Referral Routine Back pain, unspecified back location, unspecified back pain laterality, unspecified chronicity Radicular low back pain 1 Occurrences starting 05/22/2018 until 11/20/2018 documented as of this encounter Goals Goal [...] documented as of this encounter Results * XR Spine Lumbar [...] signed by: Kayleigh Cisneros M.D. Kayleigh Mulligan MILL TENDER WASHING IMG XR PROCEDURES Hannah l Result documented in this encounter Visit Diagnoses Diagnosis Low back pain, non-specific- Primary Back pain, unspecified back location, unspecified back pain laterality, unspecified chronicity Radicular low back pain Low back pain, non-specific documented in this encounter Historical Medications * This list may reflect changes made after this encounter. Medication Sig Dispense Quantity Refills Last Filled Start D ate End Date cyclobenzaprine (FLEXERIL) 10 mg tablet 04/04/2018 07/11/2023 added in this encounter Orders Outpatient Referral Count Last Ordered Date Fir st Ordered Date AMB REFERRAL TO NEUROSURGERY 1 05/22/2018 documented in this encounter Care Teams Small Offset Printer Relationship Specialty Start Date End Date No, Physician PCP - General 04/24/18 03/21/23 documented as of this encounter
--- OUTSIDE RECORDS SUMMARY | 2024-08-17 08:48 | XMS_ITS | Encounter Summary ---
Author Organization [facility] Address [address] [place] [address] Phone Care Team Providers Care Junior Sales Assistant Name Role Phone No, Physician Primary Care Provider [phone] Encounter Details Date Type Department Care Team (Late st Contact Info) Description 04/17/2018 Telephone [facility] Scheduling [address] [place] [address] Kenia Pineda BS Social History Tobacco Use Types Packs/Day Years Used Date Smoking Tobacco: Never Assessed Comments Unknown Sex and Gender Information Value Date Recorded Sex Assigned at Not on file 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 Nee referral with Regina WIRE WINDER name on it appt 05/22 * Telephone Encounter - Shania Boyd CNA - 05/14/2018 7:34 AM CDT Waiting on referral with Regina WIRE WINDER name- appt 05/22 * Telephone Encounter - Shania Boyd CNA - 05/02/2018 9:16 AM CDT Spoke to Sujatha with pcp office- she will submit a new referral with Regina WIRE WINDER name and NPI for appt- 05/22 10am * Telephone Encounter - Richelle Corley - 05/02/2018 7:54 AM CDT rcvd referral PS * Telephone Encounter - Shania Boyd CNA - 05/01/2018 4:25 PM CDT Spoke to pt Appt confirmed 05/22 10am- (pt was crying she was so happy, thank you) * Telephone Encounter - Kayleigh Mulligan NP - 05/01/2018 3:52 PM CDT How about 10 am on 05/22 * Telephone Encounter - Shania Boyd CNA - 05/01/2018 1:51 PM CDT Spoke to pt Appt 06/26 10:30am- PT TO BRING CD TO APPT AND ARRIVE 45 MINS EARLY POSS XRAYS (pt stated she fell yesterday down some stairs, if you are able to see sooner she can be there) * Telephone Encounter - Shania Boyd CNA - 05/01/2018 9:52 AM CDT lvm for pt to call us back- schedule with Pauline GABRIEL - need [facility] Auth- task complete until we hear frompt * Telephone Encounter - Shania Boyd CNA - 04/28/2018 11:23 AM CDT THO- Lvm for pt to call us back- need auth and scheule with Regina GABRIEL * Telephone Encounter - Kayleigh Mulligan NP - 04/25/2018 9:51 AM CDT I can see * Telephone Encounter - Roula Skinner CNA - 04/24/2018 11:11 AM CDT THO-PS. Pt. Called. Reg/intake updated and records in chart. Waiting on Insurance Auth. Sending forreview, will you see? * Telephone Encounter - Roula Skinner CNA - 04/24/2018 10:45 AM CDT Department of Neurological Surgery at [facility] Spine Intake 04/24/18 Krissy Oneal 1955 [id number] Cell Phone HT: 5'2 WT: 160 LBS BMI: 29.3 [id number] Physician No Referring physician: DR. SIENNA CARRASCO Office number: [phone] Office Caller Name: PATIENT Referred to: ELSA FUENTES MD Assigned to: Consult: YES Second Opinion: NO Diagnosis: LUMBAR SPONDYLOSIS Requested Timeframe: Location (Spinal Area): LUMBAR Incontinence: NO Weakness: YES, BACK Numbness: YES, TINGLING IN LEFT FOOT AND TOES Pain: YES, BACK AND LEFT LEG Duration of symptoms: YEARS Prior spine surgery: YES, CERVICAL-2001 Physical therapy YES Injections YES Are you a current smoker: NO Other surgeons seen: YES, EDMUNDO FUNK Litigation: NO MVA: NO W/C: NO [facility]. Imaging Done: YES, MRI-04/05/2018 Does the patient have any metal in their body? YES, CERVICAL PLATE Appointment scheduled: PT TO BRING CD AND ARRIVE 45 MINS EARLY * Telephone Encounter - Richelle Corley - 04/22/2018 1:24 PM CDT Rcvd notes, OP report, pain management, MRI 10/08/2013, physical therapy * Telephone Encounter - Kenia Pineda BS - 04/17/2018 1:37 PM CDT lvm for pt to call back * Telephone Encounter - Richelle Corley - 04/17/2018 11:09 AM CDT THO Rcvd notes and MRI 04/05/2018 documented in this encounter Plan of Treatment Not on file documented as of this encounter Visit Diagnoses Not on filedocumented in this encounter Care Teams Junior Sales Assistant Relationship Specialty Start Date End Date No, Physician PCP - General 04/24/18 03/21/23 documented as of this encounter
--- OUTSIDE RECORDS SUMMARY | 2024-08-17 08:48 | XMS_ITS | Encounter Summary ---
Author Organization [facility] Healthcare Address [address] [place] [address] Care Team Providers Care Oracle Webcenter Consultant Name Role Phone Unavailable Primary Care Provider Unavailabl e Encounter Details Date Type Department Care Team (Late st Contact Info) Description 12/03/2012 1:15 PM CDT - 12/03/2013 1:15 PM CDT Hospital Encounter [facility] OP Palomo Barnes MD [address] [place] [address] Social History Tobacco Use Types Packs/Day Years Used Date Smoking Tobacco: Never Assessed Comments Unknown Sex and Gender Information Value Date Recorded Sex Assigned at Not on file 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
--- OUTSIDE RECORDS SUMMARY | 2024-08-17 08:48 | XMS_ITS | Encounter Summary ---
Author Organization [facility] Healthcare Address [address] [place] [address] Care Team Providers Care Director Of State Name Role Phone No, Physician Primary Care Provider [phone] Encounter Details Date Type Department Care Team (Latest Contact Info) Description 05/22/2018 4:42 PM CDT Hospital Encounter [facility] [address] [place] [id number] Discharge Disposition: Discharge to home or self care Social History Tobacco Use Types Packs/Day Years Used Date Smoking Tobacco: Former Smokeless Tobacco: Never Comments Unknown Sex and Gender Information Value Date Recorded Sex Assigned at Not on file 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 Radiology. ??There will be no report generated by a [facility] Radiologist. Narrative [facility] - 05/22/2018 4:42 PM CDT EXAMINATION: ??Images For Reference Purposes Only Tono Eng MD IMG CT PROCEDURES Final Result [facility] documented in this encounter Visit Diagnoses Not on filedocumented in this encounter Care Teams Director Of State Relationship Specialty Start Date End Date No, Physician PCP - General 04/24/18 03/21/23 documented as of this encounter
--- OUTSIDE RECORDS SUMMARY | 2024-08-17 08:48 | XMS_ITS | Encounter Summary ---
Author Organization [facility] Healthcare Address [address] [place] [address] Care Team Providers Care Ballpoint Pen Assembly Machine Operator Name Role Phone No, Physician Primary Care Provider [phone] Reason for Visit * Pain Management (Routine) - Closed Specialty Diagnoses / Procedures Referred By Contact Referred To Contact Anesthesiology / Pain Management Diagnoses Back pain, unspecified back location, unspecified back pain laterality, unspecified chronicity Radicular low back pain NT EVAL + LESI (NBT) Procedures INITIAL VISIT AND PROCEDURE Rosibel Muse MD Phone: tel:[phone] fax:[phone] Loc Huff MD [address] [place] [address] Phone: tel: fax: Referral ID Status Reason Start Date Expiration Date Visits Re quested Visits Authorized [id number] Closed 05/30/2018 11/26/2018 12 12 Encounter Details Date Type Department Care Team (Late st Contact Info) Description 06/23/2018 8:45 AM ACCOUNTING MANAGER CONTROLLER Procedure visit [facility] at [address] [employer] [place] [address] Loc Huff MD [address] [place] [address] Lumbar radiculopathy (Primary Dx) Social History Tobacco Use Types Packs/Day Years Used Date Smoking Tobacco: Former Smokeless Tobacco: Never Alcohol Use Standard Drinks/Week Comments No 0 (1 standard drink = 0.6 oz pur e alcohol) Comments No Sex and Gender Information Value Date Recorded Sex Assigned at Not on file Legal Sex Female 8:15 AM ACCOUNTING MANAGER CONTROLLER Gender Identity Not on file Sexual Orientation Not on file Occupation Industry Job Start Date Job End Date Disability Not on file Not on file Not on file documented as of this encounter Last Filed Vital Signs Vital Sign Reading Time Taken Comments Blood Pressure 127/79 06/23/2018 8:28 AM ACCOUNTING MANAGER CONTROLLER Pulse 81 06/23/2018 8:28 AM ACCOUNTING MANAGER CONTROLLER Temperature 35.5 ??C (95.9 ??F) 06/23/2018 8:28 AM CS T Respiratory Rate 18 06/23/2018 8:28 AM ACCOUNTING MANAGER CONTROLLER Oxygen Saturation 100% 06/23/2018 8:28 AM ACCOUNTING MANAGER CONTROLLER Inhaled Oxygen Concentration - - Weight 72.6 kg (160 lb) 06/23/2018 8:28 AM ACCOUNTING MANAGER CONTROLLER Height 157.5 cm (5' 2 ) 06/23/2018 8:28 AM ACCOUNTING MANAGER CONTROLLER Body Mass Index 29.26 06/23/2018 8:28 AM ACCOUNTING MANAGER CONTROLLER documented in this encounter Progress Notes * Loc Huff MD - 06/23/2018 8:45 AM CST S ?? Refer from NSurg for consideration of LESI #1 06/02/18 LE resolved for a week then return Now senses pain in a wider area ?? Disabled since 2013 Back, anxiety and depression ?? LBP into anterior-lateral BLE to knee L>R Worsens with walking and prolonged sitting Better with laying down ?? 10+ years of back problems Never had back surgery Varying responses to spinal injections and PT She recalls an ablation giving her a month of relief Uses a cane which reduces her leg pain but not her back pain ?? meds MR Ibuprofen ?? Lives with ?? O ?? CONSTITUTIONAL: [x] General appearance normal. [x] Nutrition appearance [] Under Nourished [] Appropriately Nourished [x] [place] Nourished ] [] Morbidly Obese [x] Good grooming ?? EYES: [x] Normal conjunctivae and lids ?? EARS / NOSE / MOUTH / THROAT: [x] External inspection of ears normal. ?? RESPIRATORY: [x] Normal effort. No evidence of any distress. ?? CHEST: [x] Symmetric ?? GASTROINTESTINAL: [] No guarding [] No masses [] No tenderness [] No rebound tenderness ?? MUSCULOSKELETAL EXAMINATION: [] Gait normal. [x] Antalgic gait. [x] Slow gait. [x] Unsteady gait. [] Station normal. Motor Examination: [...] to gross touch in lower extremity except ?? Neck: Passive range of motion [] Normal [...] muscles normal. [] Paraspinous muscle spasm noted. ?? Knee range of motion Flexion is Extension is [] Instability was not appreciated [] No tenderness found. ?? REFLEXES: Left: Biceps: [] Absent [] Diminished [] Normal [] Hyper/Brisk [] Clonus Triceps [] Absent [] Diminished [] Normal [] Hyper/Brisk [] Clonus Knee: [] Absent [] Diminished [x] Normal [] Hyper/Brisk [] Clonus Ankle: [] Absent [] Diminished [x] Normal [] Hyper/Brisk [] Clonus ?? Right: Biceps: [] Absent [] Diminished [] Normal [] Hyper/Brisk [] Clonus Triceps [] Absent [] Diminished [] Normal [] Hyper/Brisk [] Clonus Knee: [] Absent [] Diminished [x] Normal [] Hyper/Brisk [] Clonus Ankle: [] Absent [] Diminished [x] Normal [] Hyper/Brisk [] Clonus ?? NEUROLOGIC EXAM: [] Cranial nerves 2-12 were intact. [] Finger to nose normal was normally bilaterally [] Romberg normal. ?? PSYCHIATRIC: [x] Normal orientation. [x] Normal speech patterns. [x] Memory in general appeared to be intact. [x] Normal affect. [x] Normal insight and judgement. ?? A ?? LR ?? P LESI #2 today Encouraged PT to strengthen LE fov 6 weeks UNTING MANAGER CONTROLLER documented in this encounter Plan of Treatment [...] Thoracic or lumbosacral neuritis or radiculitis, unspecified documented in this encounter Care Teams Ballpoint Pen Assembly Machine Operator Relationship Specialty Start Date End Date No, Physician PCP - General 04/24/18 03/21/23 documented as of this encounter
--- OUTSIDE RECORDS SUMMARY | 2024-08-17 08:48 | XMS_ITS | Encounter Summary ---
Author Organization [facility] Address [address] [address] Care Team Providers Care Defensive Driving Instructor Name Role Phone No, Physician Primary Care Provider [phone] Reason for Visit * Reason Comments Cough nasal congestion/sin us pressure and pain/CORRALES onset yesterday Nasal Congestion Chills Encounter Details Date Type Department Care Team (Latest Contact Info) Description 08/27/2021 3:15 PM PRESS HAND SUPERVISOR Office Visit [facility] Outpatient Center [address] [id number] Axel Jaramillo NP [address] [place] [id number] Acute nasopharyngitis (Primary Dx) Social History Tobacco Use Types Packs/Day Years Used Date Smoking Tobacco: Former Smokeless Tobacco: Never Alcohol Use Standard Drinks/Week Comments No 0 (1 standard drink = 0.6 oz pur e alcohol) Comments No Sex and Gender Information Value Date Recorded Sex Assigned at Not on file Legal Sex Female 8:15 AM PRESS HAND SUPERVISOR Gender Identity Not on file Sexual Orientation Not on file Occupation Industry Job Start Date Job End Date Disability Not on file Not on file Not on file documented as of this encounter Last Filed Vital Signs Vital Sign Reading Time Taken Comments Blood Pressure 145/88 08/27/2021 3:22 PM PRESS HAND SUPERVISOR Pulse 78 08/27/2021 3:22 PM PRESS HAND SUPERVISOR Temperature 36.5 ??C (97.7 ??F) 08/27/2021 3:22 PM CS T Respiratory Rate 16 08/27/2021 3:22 PM PRESS HAND SUPERVISOR Oxygen Saturation 97% 08/27/2021 4:01 PM PRESS HAND SUPERVISOR Inhaled Oxygen Concentration - - Weight 64.4 kg (142 lb) 08/27/2021 3:22 PM PRESS HAND SUPERVISOR Height 157.5 cm (5' 2 ) 08/27/2021 3:22 PM PRESS HAND SUPERVISOR Body Mass Index 25.97 08/27/2021 3:22 PM PRESS HAND SUPERVISOR documented in this encounter Patient Instructions * Patient Instructions* Viviana Granda MA - 08/27/2021 3:15 PM PRESS HAND SUPERVISOR Images from the original note were not included. Results for orders placed or performed in visit on 08/27/21 POC Influenza A/B, COVID-19 antigen Result Value Ref Range Inflenza A Ag, POC Negative Influenza B Ag, POC Negative COVID-19 Ag POC Presumptive Negative Presumptive Negative, Invalid Patient Education Upper Respiratory Infection SMASH PIECER: An upper respiratory infection is also called a common cold. It can affect your nose, throat, ears,and sinuses. Common signs and symptoms include the following: Cold symptoms are usually worst for the first 3 to5 days. You may have any of the following: ?? Runny or stuffy nose ?? Sneezing and coughing ?? Sore throat or hoarseness ?? Red, watery, and sore eyes ?? Fatigue ?? Chills and fever ?? Headache, body aches, or sore muscles Seek care immediately if: ?? You have chest pain or trouble breathing. Contact your healthcare provider if: ?? You have a fever over 102??F (39??C). ?? Your sore throat gets worse or you see white or yellow spots in your throat. ?? Your symptoms get worse after 3 to 5 days or your cold is not better in 14 days. ?? You have a rash anywhere on your skin. ?? You have large, tender lumps in your neck. ?? You have thick, green or yellow drainage from your nose. ?? You cough up thick yellow, green, or bloody mucus. ?? You have vomiting for more than 24 hours and cannot keep fluids down. ?? You have a bad earache. ?? You have questions or concerns about your condition or care. Treatment for a cold: There is no cure for the common cold. Colds are caused by viruses and do not get better with antibiotics. Most people get better in 7 to 14 days. You may continue to cough for 2to 3 weeks. The following may help decrease your symptoms: ?? Decongestants help reduce nasal congestion and help you breathe more easily. If you take decongestant pills, they may make you feel restless or not able to sleep. Do not use decongestant sprays for more than a few days. ?? Cough suppressants help reduce coughing. Ask your healthcare provider which type of cough medicine is best for you. ?? NSAIDs , such as ibuprofen, help decrease swelling, pain, and fever. NSAIDs can cause stomach bleeding or kidney problems in certain people. If you take blood thinner medicine, always ask your healthcare provider if NSAIDs are safe for you. Always read the medicine label and follow directions. ?? Acetaminophen decreases pain and fever. It is available without a doctor's order. Ask how much to take and how often to take it. Follow directions. Read the labels of all other medicines you are using to see if they also contain acetaminophen, or ask your doctor or pharmacist. Acetaminophen can cause liver damage if not taken correctly. Do not use more than 4 grams (4,000 milligrams) total of acetaminophen in one day. Manage your cold: ?? Rest as much as possible. Slowly start to do more each day. ?? Drink more liquids as directed. Liquids will help thin and loosen mucus so you can cough it up. Liquids will also help prevent dehydration. Liquids that help prevent dehydration include water, fruit juice, and broth. Do not drink liquids that contain caffeine. Caffeine can increase your risk fordehydration. Ask your healthcare provider how much liquid to drink each day. ?? Soothe a sore throat. Gargle with warm salt water. This helps your sore throat feel better. Makesalt water by dissolving ?? teaspoon salt in 1 cup warm water. You may also suck on hard candy or throat lozenges. You may use a sore throat spray. ?? Use a humidifier or vaporizer. Use a cool mist humidifier or a vaporizer to increase air moisture in your home. This may make it easier for you to breathe and help decrease your cough. ?? Use saline nasal drops as directed. These help relieve congestion. ?? Apply petroleum-based jelly around the outside of your nostrils. This can decrease irritation from blowing your nose. ?? Do not smoke. Nicotine and other chemicals in cigarettes and cigars can make your symptoms worse. They can also cause infections such as bronchitis or pneumonia. Ask your healthcare provider for information if you currently smoke and need help to quit. E-cigarettes or smokeless tobacco still contain nicotine. Talk to your healthcare provider before you use these products. Prevent spreading your cold to others: ?? Try to stay away from other people during the first 2 to 3 days of your cold when it is more easily spread. ?? Do not share food or drinks. ?? Do not share hand towels with household members. ?? Wash your hands often, especially after you blow your nose. Turn away from other people and cover your mouth and nose with a tissue when you sneeze or cough. Follow up with your healthcare provider as directed: Write down your questions so you remember to ask them during your visits. ?? 2017 [employer] Information is for End User's use only and may not be sold, redistributed or otherwise used for commercial purposes. All illustrations and images included in CareNotes?? are the copyrighted property of [employer]. or [employer]. The above information is an hearing aid assistant only. It is not intended as medical advice for individual conditions or treatments. Talk to your doctor, nurse or pharmacist before following any medical regimen to see if it is safe and effective for you. S HAND SUPERVISOR S HAND SUPERVISOR S HAND SUPERVISOR documented in this encounter Progress Notes * Axel Jaramillo NP - 08/27/2021 3:15 PM CST Images from the original note were not included. Subjective/Objective Patient ID: Krissy Oneal is a 65 y.o. female. Chief Complaint Cough (nasal congestion/sinus pressure and pain/CORRALES onset yesterday ), Nasal Congestion, and Chills URI This is a new problem. The current episode started yesterday. The problem has been waxing and waning. There has been no fever. Associated symptoms include coughing, ear pain, rhinorrhea (like hernormal allergies) and a sore throat (scratcy). Pertinent negatives include no abdominal pain, chest pain, congestion, diarrhea, headaches, nausea, neck pain, rash, shortness of breath, sinus pain, sneezing, vomiting or wheezing. Treatments tried: nasal spray and vaseline in nares. The treatment providedmild relief. Review of Systems Constitutional: Negative for appetite change, chills, diaphoresis, fatigue and fever. HENT: Positive for ear pain, postnasal drip, rhinorrhea (like hernormal allergies) and sore throat (scratcy). Negative for congestion, ear discharge, sinus pressure, sinus pain and sneezing. Respiratory: Positive for cough. Negative for chest tightness, shortness of breath and wheezing. Cardiovascular: Negative for chest pain. Gastrointestinal: Negative for abdominal pain, diarrhea, nausea and vomiting. Musculoskeletal: Negative for myalgias, neck pain and neck stiffness. Skin: Negative for rash. Neurological: Negative for dizziness and headaches. Hematological: Negative for adenopathy. Physical Exam Vitals and nursing note reviewed. Constitutional: General: She is awake. She is not in acute distress. Appearance: Normal appearance. HENT: Head: Normocephalic and atraumatic. Right Ear: Tympanic membrane and ear canal normal. Left Ear: Tympanic membrane and ear canal normal. Nose: Congestion and rhinorrhea present. Rhinorrhea is clear. Right Sinus: No maxillary sinus tenderness or frontal sinus tenderness. Left Sinus: No maxillary sinus tenderness or frontal sinus tenderness. Mouth/Throat: Lips: Manley. Mouth: Mucous membranes are moist. Tongue: Tongue does not deviate from midline. Pharynx: Uvula midline. No pharyngeal swelling, oropharyngeal exudate, posterior oropharyngeal erythema or uvula swelling. Tonsils: No tonsillar exudate or tonsillar abscesses. Comments: Post nasal drainage noted Eyes: General: Lids are normal. Pupils: Pupils are equal, round, and reactive to light. Cardiovascular: Rate and Rhythm: Normal rate and regular rhythm. Pulses: Normal pulses. Heart sounds: Normal heart sounds. Pulmonary: Effort: Pulmonary effort is normal. No respiratory distress. Breath sounds: Normal breath sounds. No decreased breath sounds, wheezing, rhonchi or rales. Musculoskeletal: Cervical back: Full passive range of motion without pain, normal range of motion and neck supple. Lymphadenopathy: Cervical: No cervical adenopathy. Skin: General: Skin is warm and dry. Neurological: Mental Status: She is alert and oriented to person, place, and time. Gait: Gait normal. Psychiatric: Behavior: Behavior is cooperative. Vitals: 08/27/21 1522 08/27/21 1601 BP: 145/88 BP Location: Left arm Patient Position: Sitting Pulse: 78 Resp: 16 Temp: 36.5 ??C (97.7 ??F) TempSrc: Oral SpO2: 95% 97% Weight: 64.4 kg (142 lb) Height: 157.5 cm (5' 2 ) No exam data present Past Medical History: Diagnosis Date ??? Anxiety ??? Asthma ??? Cervical stenosis (uterine cervix) ??? Chronic kidney disease ??? Depression ??? Ear problems ??? Gastric reflux ??? Hypertension ??? Kidney infection ??? Lumbar stenosis Current Outpatient Medications: ??? albuterol (PROVENTIL,VENTOLIN) 2.5 mg /3 mL (0.083 %) nebulizer solution, Take 2.5 mg by nebulization every 6 (six) hours as needed for wheezing., Disp: , Rfl: ??? ALPRAZolam (XANAX) 1 mg tablet, Take 1 mg by mouth nightly as needed for anxiety., Disp: , Rfl: ??? amLODIPine (NORVASC) 5 mg tablet, , [...] 20 mg tablet, , Disp: , Rfl: Social History Socioeconomic History ??? Marital status: Tobacco Use ??? Smoking status: Former Smoker ??? Smokeless tobacco: Never Used Substance and Sexual Activity ??? Alcohol use: No ??? Drug use: No Assessment/Plan Diagnoses and all orders for this visit: Acute nasopharyngitis (Primary) - POC Influenza A/B, COVID-19 antigen - COVID-19 Coronavirus RNA Nasopharyngeal; Future Recent Results (from the past 4 hour(s)) POC Influenza A/B, COVID-19 antigen Collection Time: 08/27/21 3:43 PM Result Value Ref Range Inflenza A Ag, POC Negative Influenza B Ag, POC Negative COVID-19 Ag POC Presumptive Negative Presumptive Negative, Invalid Patient Education: You have been diagnosed with a viral infection. -Viral infections do not improve with antibiotics. -Viral symptoms can linger from 7-14 days -The color of discharge does not always reflect the need for an antibiotic, even during a viral illness it is normal for drainage to change from yellow to green at times. -Please refer to the CDC Get Smart (cdc.gov/getsmart) campaign for more details. There are many OTC medications and supportive care measures you can try to treat your symptoms until your symptoms resolve. -Tylenol or Ibuprofen for aches, pains. Take per package directions -Antihistamines like Claritin or Benadryl as needed for drainage. Take per package directions -Delsym as needed for coughing. Follow package directions -Frequent cough drops and lozenges -Increase fluids, especially decaffeinated ones -Sleep with head of bed raised to promote drainage -Avoid spreading the virus by remaining at home and away from others until you are fever-free (temperature below 100) for 24 hours. Good handwashing and covering your mouth when coughing are also important. If you are not improving or worsening in the next 5-7 days you must RETURN to the clinic, go to your PCP, or Urgent Care/ER to be SEEN and reevaluated. No further prescriptions or refills will be given by phone without another evaluation. If you develop a high fever 103+, neck stiffness, trouble breathing, chest pain, or other life threatening symptoms GO TO THE ER IMMEDIATELY. While waiting for your COVID-19 test result or if your COVID-19 test is positive: ISOLATE: Stay home except to get medical care! Separate yourself from other people and pets in yourhome: ??? Do not go to work, school, or public areas, such as stores or social gatherings. ??? Do not use public transportation. ??? If available, stay in a separate bedroom and use a separate bathroom. ??? Ask others to care for your pets. (If possible) ??? Wear a facemask when around other people or pets. ??? Cover your mouth and nose with a tissue when you cough or sneeze. If a tissue is not available,cough or sneeze into your upper sleeve (not your hands). ??? Throw tissues away in trash-can that has a bag in it. Empty your trash daily. ??? Always wash your hands after you throw away the tissue or garbage. If you test Positive for COVID-19 Given what we currently know about COVID-19 and the Omicron variant, CDC is shortening the recommended time for isolation from 10 days for people with COVID-19 to 5 days, if asymptomatic, followed by5 days of wearing a mask when around others. The change is motivated by science demonstrating that the majority of SARS-CoV-2 transmission occurs early in the course of illness, generally in the 1-2 days prior to onset of symptoms and the 2-3 days after. Therefore, people who test positive should isolate for 5 days and, if asymptomatic at that time, they may leave isolation if they can continue to mask for 5 days to minimize the risk of infecting others. Quarantine for those exposed to COVID-19 Additionally, CDC is updating the recommended quarantine period for those exposed to COVID-19. For people who are unvaccinated or are more than six months out from their second mRNA dose (or more than 2 months after the J&J vaccine) and not yet boosted, CDC now recommends quarantine for 5 days followed by strict mask use for an additional 5 days. Alternatively, if a 5-day quarantine is not feasible, it is imperative that an exposed person wear a well-fitting mask at all times when around others for 10 days after exposure. Individuals who have received their booster shot do not need to quarantine following an exposure, but should wear a mask for 10 days after the exposure. For all those exposed, best practice would also include a test for SARS-CoV-2 at day 5 after exposure. If symptomsoccur, individuals should immediately quarantine until a negative test confirms symptoms are not attributable to COVID-19. Isolation relates to behavior after a confirmed infection. Isolation for 5 days followed by wearinga well-fitting mask will minimize the risk of spreading the virus to others. Quarantine refers to the time following exposure to the virus or close contact with someone known to have COVID-19. Both updates come as the Omicron variant continues to spread throughout the [place] and reflects the current science on when and for how long a person is maximally infectious. If You Were Exposed to Someone with COVID-19 (Quarantine) If you: Have been boosted OR Completed the primary series of Pfizer or Moderna vaccine within the last 6 months OR Completed the primary series of J&J vaccine within the last 2 months Wear a mask around others for 10 days. Test on day 5, if possible. If you develop symptoms get a test and stay home. If you: Completed the primary series of Pfizer or Moderna vaccine over 6 months ago and are not boosted OR Completed the primary series of J&J over 2 months ago and are not boosted OR Are unvaccinated Stay home for 5 days. After that continue to wear a mask around others for 5 additional days. If you can???t quarantine you must wear a mask for 10 days. Test on day 5 if possible. If you develop symptoms get a test and stay home If You Test Positive for COVID-19 (Isolate) Everyone, regardless of vaccination status. Stay home for 5 days. If you have no symptoms or your symptoms are resolving after 5 days, you can leave your house. Continue to wear a mask around others for 5 additional days. If you have a fever, continue to stay home until your fever resolves. Self-care: ??? Rest as much as possible. Slowly start to do more each day. ??? Take the medicines recommended by your doctor for fever, body aches, cough, or headaches. (Tylenol or Ibuprofen for aches/pains/fever as needed) (Antihistamines like Claritin or Benadryl as needed for drainage) (Delsym and cough drops/throat lozenges as needed for cough) ??? Drink more liquids as directed to help thin and loosen mucus so it is easier to cough up. Liquids such as water, fruit juice, and broth also help keep you hydrated. ??? Soothe a sore throat by gargling with warm salt water. Make salt water by dissolving ?? teaspoon salt in 1 cup warm water (8 ounces). Older children and adults can also use throat lozenges, ice chips, or sore throat spray. ??? Use a humidifier or vaporizer to increase air moisture in your home. This may make it easier tobreathe and help decrease coughing. ??? Use saline nasal drops as directed to relieve congestion. ??? Apply petroleum-based jelly around the outside of nostrils to decrease irritation from blowing your nose. ??? DO NOT smoke or vape. Nicotine and other chemicals in cigarettes and cigars can make your symptoms worse. Monitor your symptoms: ??? Seek medical attention right away if your symptoms get worse, such as if you are having difficulty breathing, shortness of breath, new confusion or inability to arouse, or bluish lips or face. ??? If you have a pulse ox monitor at home, monitor your oxygen saturations with this device. If you find your Oxygen Saturation is falling 92% or below please notify your PCP right away or seek medical attention. Or if you experience fever uncontrolled with antipyretics, shortness of breath, chestdiscomfort, uncontrolled n/v/d ??? If you have a medical emergency, call 911 and notify the EMS personnel that you have or are being evaluated for COVID-19. Put on a facemask before emergency medical services arrive -briefly discussed monoclonal antibody therapy, if you meet criteria, call your PCP for more information Disposition ??? Treatment plan including expectations, follow up, and return precautions discussed with patient/parent, verbalizes understanding. ??? Medication dosage, use, and potential adverse reactions discussed with patient/parent. ??? Advised to follow up with PCP if symptoms do not resolve as expected or sooner if condition worsens. ??? Signs/symptoms warranting ER evaluation reviewed. ??? Patient and/or guardian was given an opportunity to ask questions, questions answered. Axel Jaramillo NP S HAND SUPERVISOR documented in this encounter Plan of Treatment [...] on stairs Contact your local community or [facility] for information on exercise, fall prevention programs, or options for improving home safety. documented as of this encounter Procedures Procedure Name Priority Date/Time Associated Diagnosis Comments POC INFLUENZA A/B, COVID-19 ANTIGEN Routine 08/27/2021 3:43 PM PRESS HAND SUPERVISOR Acute nasopharyngitis documented in this encounter Results * COVID-19 Coronavirus RNA Nasopharyngeal (08/27/2021 3:52 PM PRESS HAND SUPERVISOR) COVID-19 RNA Not Detected JASMIN ANAND Comment: Interpretive Data Synonyms for this test include: PCR and NAAT . ??Testing performed by the [facility] Molecular Infectious Disease Laboratory. The 2019-Novel Coronavirus [...] on September 15, 2020. Testing performed by: [facility], [address] [place]., [address] First COVID-19 test? No CERNER Comment:Testing performed by : [facility], [address] [place]., [address] Employeed in healthcare? No CERNER Comment:Testing performed by : [facility], [address] [place]., [address] status? No CERNER Comment:Testing performed by : [facility], [address] [facility], [address] Group care resident? No CERNER CH Comment:Testing performed by : [facility], [address] [facility], [address] Hospitalized? No CERNER Comment:Testing performed by : [facility], [address] [facility], [address] Is patient in ICU? No CERNER Comment:Testing performed by : [facility], [address] [facility], [address] Symptomatic as defined by CDC? Yes CERNER Comment:Testing performed by : [facility], [address] [facility], [address] Nasopharyngeal 08/27/2021 3: 52 PM PRESS HAND SUPERVISOR 2021 6:18 AM PRESS HAND SUPERVISOR Narrative JASMIN - 2021 7:05 PM PRESS HAND SUPERVISOR What is the reason for testing?->Symptoms of COVID-19 in high-risk group??(Batched) Date of Symptom Onset->08/25/21 Axel Jaramillo NP LAB MICROBIOLOGY - [facility] Final Result Performing Organization Address City/State/[facility] Co de Phone Number [facility] [address] [place] [address] * POC Influenza A/B, COVID-19 antigen (08/27/2021 3:43 PM PRESS HAND SUPERVISOR) Influenza A Ag, POC Negative [facility] Influenza B Ag, POC Negative [facility] COVID-19 Ag POC Presumptive Negative Presumptive Negative, Invalid [facility] Nasal 08/27/2021 3:43 PM PRESS HAND SUPERVISOR Axel Jaramillo CELLARS SUPERVISOR POINT OF CARE TEST ORDERABLES F inal Result [facility] [address] [place] [address], [facility] documented in this encounter Visit Diagnoses Diagnosis Acute nasopharyngitis- Primary Acute nasopharyngitis (common cold) Acute nasopharyngitis Acute nasopharyngitis (common cold) documented in this encounter Additional Health Concerns Infection Onset Date Last Indicated Resolved Time COVID: Suspected 08/27/2021 08/27/2021 08/27/2021 3:46 PM PRESS HAND SUPERVISOR documented as of this encounter Care Teams Defensive Driving Instructor Relationship Specialty Start Date End Date No, Physician PCP - General 04/24/18 03/21/23 documented as of this encounter
--- OUTSIDE RECORDS SUMMARY | 2024-08-17 08:48 | XMS_ITS | Encounter Summary ---
Author Organization [facility] Healthcare Address [address] [place] [address] Care Team Providers Care Correctional Officer Chief Name Role Phone No, Physician Primary Care Provider [phone] Encounter Details Date Type Department Care Team (Late st Contact Info) Description 06/02/2018 9:18 AM CDT - 06/02/2018 1:13 PM CDT Hospital Encounter [facility] [address] [place] [address] Loc Huff MD 2022 [address] [facility] [address] [address] Discharge Disposition: Discharge to home or self care Social History Tobacco Use Types Packs/Day Years Used Date Smoking Tobacco: Former Smokeless Tobacco: Never Comments Unknown Sex and Gender Information Value Date Recorded Sex Assigned at Not on file 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 Gender Identity Not on file Sexual Orientation Not on file documented as of this encounter Last Filed Vital Signs Vital Sign Reading Time Taken Comments Blood Pressure 159/96 06/02/2018 12:45 PM CDT Pulse 65 06/02/2018 12:45 PM CDT Temperature - - Respiratory Rate 18 06/02/2018 12:45 PM CDT Oxygen Saturation 100% 06/02/2018 12:45 PM CDT Inhaled Oxygen Concentration - - [...] 1 tablet (25 mg total) by mouth spinning machine operator before breakfast 4 sertraline (ZOLOFT) 50 mg [...] Miscellaneous Notes * Perioperative Nursing Note - Vogt, Monique A., RN - 06/02/2018 12:41 PM CDT Patient [...] on stairs Contact your local community or [facility] for information on exercise, fall prevention programs, or options for improving home safety. documented as of this encounter Procedures Procedure Name Priority Date/Time Associated Diagnosis Comments INJECTION EPIDURAL LUMBAR/CAUDAL 1 LEVEL PAIN PUMP TRIAL W IMAGING 45199 06/02/2018 12:27 PM CDT BACK PAIN documented in this encounter Visit Diagnoses Not on filedocumented in this encounter Active and Recently Administered Medications Times are shown in CDT. PRN Medication Order 05/31/2018 06/01/2018 06/02/2018 iohexol (OMNIPAQUE) 300 mg iodine/mL injection solution (CANCELED) As needed, Starting on Sat06/02/18 at 1238, Intra-Op 1238 (Given - Provid er: Loc Huff MD - Comment: lot [id number]; expires 01-28-21) lidocaine PF (XYLOCAINE) 10 mg/mL [...] 300 mg i odine/mL injection solution 1 06/02/2018 lidocaine PF (XYLOCAINE) 10 mg/mL (1 %) preservative free injection 1 06/02/2018 methylPREDNISolone acetate ( DEPO-medrol) injection 1 06/02/2018 sodium chloride 0.9% flush 1 06/02/2018 documented in this encounter Care Teams Correctional Officer Chief Relationship Specialty Start Date End Date No, Physician PCP - General 04/24/18 03/21/23 documented as of this encounter
--- OUTSIDE RECORDS SUMMARY | 2024-08-17 08:48 | XMS_ITS | Encounter Summary ---
Author Organization [facility] Address [address] [address] Care Team Providers Care Accounts Payable Professional Name Role Phone No, Physician Primary Care Provider [phone] Reason for Referral * Diagnostic Imaging (Routine) - Canceled Specialty Diagnoses / Procedures Referred By Contac t Referred To Contact Diagnoses Unknown cause of injury Procedures Transthoracic Echo Complete W Doppler/CF No, Physician Phone: tel: Referral ID Status Reason Start Date Expiration Date V isits Requested Visits Authorized [id number] Canceled 11/19/2018 05/30/2020 1 1 Encounter Details Date Type Department Care Team (Late st Contact Info) Description 11/19/2018 Orders Only [facility] at [address] [phone] Ramiro Sandoval MD [address] [place] [address] Social History Tobacco Use Types Packs/Day Years Used Date Smoking Tobacco: Former Smokeless Tobacco: Never Alcohol Use Standard Drinks/Week Comments No 0 (1 standard drink = 0.6 oz pur e alcohol) Comments No Sex and Gender Information Value Date Recorded Sex Assigned at Not on file Legal Sex Female 8:15 AM 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 documented as of this encounter Procedures Procedure Name Priority Date/Time Associated Diagnosis Comments TRANSTHORACIC ECHO (TTE) COM PLETE W DOPPLER/CF Routine 11/13/2018 documented in this encounter Results * Transthoracic Echo Complete W Doppler/CF (11/13/2018) Anatomical Region Laterality Modality Ultrasound us Historical Provider MD ANDINO ECHO PROCEDURES Final Result documented in this encounter Visit Diagnoses Not on filedocumented in this encounter Care Teams Accounts Payable Professional Relationship Specialty Start Date End Date No, Physician PCP - General 04/24/18 03/21/23 documented as of this encounter
--- OUTSIDE RECORDS SUMMARY | 2024-08-17 08:48 | XMS_ITS | Encounter Summary ---
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
--- OUTSIDE RECORDS SUMMARY | 2024-08-17 08:49 | XMS_ITS | Encounter Summary ---
Author Organization [facility] Healthcare Address [address] [place] [address] Care Team Providers Care Implementation Specialist Name Role Phone Unavailable Primary Care Provider Unavailabl e Encounter Details Date Type Department Care Team (Latest Contact Info) Description 03/25/2013 1:37 PM CDT - 03/25/2013 3:07 PM CDT Hospital Encounter [facility] OP Palomo Barnes MD [address] [facility] [address] [place] [address] Lumbosacral spondylosis without myelopathy; Other chronic pain; Low back pain Social History Tobacco Use Types Packs/Day Years Used Date Smoking Tobacco: Never Assessed Comments Unknown Sex and Gender Information Value Date Recorded Sex Assigned at Not on file 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 Gender Identity Not on file Sexual Orientation Not on file documented as of this encounter Last Filed Vital Signs Vital Sign Reading Time Taken Comments Blood Pressure 141/89 03/25/2013 1:56 PM CDT Pulse 100 03/25/2013 1:56 PM CDT Temperature 36.6 ??C (97.9 ??F) 03/25/2013 1:56 PM CD T Respiratory Rate - - Oxygen Saturation 97% 03/25/2013 1:56 PM CDT Inhaled Oxygen Concentration - - Weight - - Height - - Body Mass Index - - documented in this encounter Plan of Treatment Not on file documented as of this encounter Visit Diagnoses Diagnosis Lumbosacral spondylosis without myelopathy Other chronic pain Low back pain Lumbago documented in this encounter
--- OUTSIDE RECORDS SUMMARY | 2024-08-17 08:49 | XMS_ITS | Encounter Summary ---
Author Organization [facility] Healthcare Address [address] [place] [address] Care Team Providers Care Kiln Car Repairer Name Role Phone Unavailable Primary Care Provider Unavailabl e Encounter Details Date Type Department Care Team (Late st Contact Info) Description 04/21/2013 8:59 AM CDT - 04/21/2013 9:43 AM CDT Hospital Encounter [facility] OP Palomo Barnes MD [address] [facility] [address] [place] [address] Low back pain Social History Tobacco Use Types Packs/Day Years Used Date Smoking Tobacco: Never Assessed Comments Unknown Sex and Gender Information Value Date Recorded Sex Assigned at Not on file 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
--- OUTSIDE RECORDS SUMMARY | 2024-08-17 08:49 | XMS_ITS | Encounter Summary ---
Author Organization [facility] Healthcare Address [address] [place] [address] Care Team Providers Care Data Entry Coordinator Name Role Phone Unavailable Primary Care Provider Unavailabl e Encounter Details Date Type Department Care Team (Latest Contact Info) Description 12/19/2012 8:12 AM CDT - 12/19/2012 9:37 AM CDT Hospital Encounter [facility] OP Palomo Barnes MD [address] [facility] [address] [place] [address] Other chronic pain; Lumbosacral spondylosis without myelopathy Social History Tobacco Use Types Packs/Day Years Used Date Smoking Tobacco: Never Assessed Comments Unknown Sex and Gender Information Value Date Recorded Sex Assigned at Not on file 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 Gender Identity Not on file Sexual Orientation Not on file documented as of this encounter Last Filed Vital Signs Vital Sign Reading Time Taken Comments Blood Pressure 159/88 12/19/2012 8:49 AM CDT Pulse 92 12/19/2012 8:49 AM CDT Temperature 36.8 ??C (98.3 ??F) 12/19/2012 8:49 AM CD T Respiratory Rate - - Oxygen Saturation 97% 12/19/2012 8:49 AM CDT Inhaled Oxygen Concentration - - Weight - - Height - - Body Mass Index - - documented in this encounter Plan of Treatment Not on file documented as of this encounter Visit Diagnoses Diagnosis Other chronic pain Lumbosacral spondylosis without myelopathy documented in this encounter
--- OUTSIDE RECORDS SUMMARY | 2024-08-17 08:49 | XMS_ITS | Encounter Summary ---
Author Organization [facility] Healthcare Address [address] [place] [address] Care Team Providers Care Informatica Developer Name Role Phone Unavailable Primary Care Provider Unavailabl e Encounter Details Date Type Department Care Team (Latest Contact Info) Description 02/04/2013 3:04 PM CDT - 02/04/2013 4:41 PM CDT Hospital Encounter [facility] OP Palomo Barnes MD [address] [facility] [address] [place] [address] Other chronic pain; Lumbosacral spondylosis without myelopathy; Low back pain Social History Tobacco Use Types Packs/Day Years Used Date Smoking Tobacco: Never Assessed Comments Unknown Sex and Gender Information Value Date Recorded Sex Assigned at Not on file 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 Gender Identity Not on file Sexual Orientation Not on file documented as of this encounter Last Filed Vital Signs Vital Sign Reading Time Taken Comments Blood Pressure 146/102 02/04/2013 3:16 PM CDT Pulse 83 02/04/2013 3:16 PM CDT Temperature 36.6 ??C (97.8 ??F) 02/04/2013 3:16 PM CD T Respiratory Rate - - Oxygen Saturation 93% 02/04/2013 3:16 PM CDT Inhaled Oxygen Concentration - - Weight - - Height - - Body Mass Index - - documented in this encounter Plan of Treatment Not on file documented as of this encounter Visit Diagnoses Diagnosis Other chronic pain Lumbosacral spondylosis without myelopathy Low back pain Lumbago documented in this encounter
--- OUTSIDE RECORDS SUMMARY | 2024-08-17 08:49 | XMS_ITS | Encounter Summary ---
Author Organization [facility] Healthcare Address [address] [place] [address] Care Team Providers Care Blacksmith Hammer Operator Name Role Phone Unavailable Primary Care Provider Unavailabl e Encounter Details Date Type Department Care Team (Late st Contact Info) Description 01/16/2013 2:30 PM CDT Hospital Encounter [facility] OP Palomo Barnes MD [address] 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
--- OUTSIDE RECORDS SUMMARY | 2024-08-17 08:49 | XMS_ITS | Encounter Summary ---
Author Organization [facility] Healthcare Address [address] [place] [address] Care Team Providers Care Food Service Team Member Name Role Phone Unavailable Primary Care Provider Unavailabl e Encounter Details Date Type Department Care Team (Latest Contact Info) Description 12/08/2012 7:31 AM CDT - 12/08/2012 8:47 AM CDT Hospital Encounter [facility] OP Palomo Barnes MD [address] [facility] [address] [place] [address] Displacement of lumbar intervertebral disc without myelopathy; Lumbosacral spondylosis without myelopathy; Thoracic or lumbosacral neuritis or radiculitis Social History Tobacco Use Types Packs/Day Years Used Date Smoking Tobacco: Never Assessed Comments Unknown Sex and Gender Information Value Date Recorded Sex Assigned at Not on file 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 Gender Identity Not on file Sexual Orientation Not on file documented as of this encounter Last Filed Vital Signs Vital Sign Reading Time Taken Comments Blood Pressure 141/97 12/08/2012 7:50 AM CDT Pulse 76 12/08/2012 7:50 AM CDT Temperature 36.8 ??C (98.2 ??F) 12/08/2012 7:50 AM CD T Respiratory Rate - - Oxygen Saturation 98% 12/08/2012 7:50 AM CDT Inhaled Oxygen Concentration - - Weight - - Height - - Body Mass Index - - documented in this encounter Plan of Treatment Not on file documented as of this encounter Visit Diagnoses Diagnosis Displacement of lumbar intervertebral disc without myelopathy Lumbosacral spondylosis without myelopathy Thoracic or lumbosacral neuritis or radiculitis Thoracic or lumbosacral neuritis or radiculitis, unspecified documented in this encounter
--- OUTSIDE RECORDS SUMMARY | 2024-08-17 08:49 | XMS_ITS | Encounter Summary ---
Author Organization [facility] Healthcare Address [address] [place] [address] Care Team Providers Care Green Hide Inspector Name Role Phone Unavailable Primary Care Provider Unavailabl e Encounter Details Date Type Department Care Team (Latest Contact Info) Description 03/11/2013 12:48 PM CDT - 03/11/2013 2:41 PM CDT Hospital Encounter [facility] OP Palomo Barnes MD [address] [facility] [address] [place] [address] Other chronic pain; Lumbosacral spondylosis without myelopathy Social History Tobacco Use Types Packs/Day Years Used Date Smoking Tobacco: Never Assessed Comments Unknown Sex and Gender Information Value Date Recorded Sex Assigned at Not on file 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 Gender Identity Not on file Sexual Orientation Not on file documented as of this encounter Last Filed Vital Signs Vital Sign Reading Time Taken Comments Blood Pressure 147/93 03/11/2013 1:06 PM CDT Pulse 81 03/11/2013 1:06 PM CDT Temperature 36.7 ??C (98.1 ??F) 03/11/2013 1:06 PM CD T Respiratory Rate - - Oxygen Saturation 99% 03/11/2013 1:06 PM CDT Inhaled Oxygen Concentration - - Weight - - Height - - Body Mass Index - - documented in this encounter Plan of Treatment Not on file documented as of this encounter Visit Diagnoses Diagnosis Other chronic pain Lumbosacral spondylosis without myelopathy documented in this encounter
--- OUTSIDE RECORDS SUMMARY | 2024-08-17 08:49 | XMS_ITS | Encounter Summary ---
Author Organization [facility] Healthcare Address [address] [place] [address] Care Team Providers Care Supervisor Dehydrogenation Name Role Phone Unavailable Primary Care Provider Unavailabl e Encounter Details Date Type Department Care Team (Latest Contact Info) Description 11/24/2012 7:54 AM CDT - 11/24/2012 9:40 AM CDT Hospital Encounter [facility] OP Palomo Barnes MD [address] [facility] [address] [place] [address] Displacement of lumbar intervertebral disc without myelopathy; Lumbosacral spondylosis without myelopathy Social History Tobacco Use Types Packs/Day Years Used Date Smoking Tobacco: Never Assessed Comments Unknown Sex and Gender Information Value Date Recorded Sex Assigned at Not on file 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 Gender Identity Not on file Sexual Orientation Not on file documented as of this encounter Last Filed Vital Signs Vital Sign Reading Time Taken Comments Blood Pressure 146/96 11/24/2012 8:18 AM CDT Pulse 88 11/24/2012 8:18 AM CDT Temperature 36.5 ??C (97.7 ??F) 11/24/2012 8:18 AM CD T Respiratory Rate - - Oxygen Saturation 98% 11/24/2012 8:18 AM CDT Inhaled Oxygen Concentration - - Weight - - Height - - Body Mass Index - - documented in this encounter Plan of Treatment Not on file documented as of this encounter Visit Diagnoses Diagnosis Displacement of lumbar intervertebral disc without myelopathy Lumbosacral spondylosis without myelopathy documented in this encounter
--- OUTSIDE RECORDS SUMMARY | 2024-08-17 08:49 | XMS_ITS | Encounter Summary ---
Author Organization [facility] Healthcare Address [address] [place] [address] Care Team Providers Care Vein Pumper Name Role Phone Unavailable Primary Care Provider Unavailabl e Encounter Details Date Type Department Care Team (Late st Contact Info) Description 12/16/2012 7:51 AM CDT - 12/16/2012 8:38 AM CDT Hospital Encounter [facility] OP Palomo Barnes MD [address] [facility] [address] [place] [address] Low back pain Social History Tobacco Use Types Packs/Day Years Used Date Smoking Tobacco: Never Assessed Comments Unknown Sex and Gender Information Value Date Recorded Sex Assigned at Not on file 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
--- OUTSIDE RECORDS SUMMARY | 2024-08-17 08:49 | XMS_ITS | Encounter Summary ---
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
--- OUTSIDE RECORDS SUMMARY | 2024-08-17 08:49 | XMS_ITS | Encounter Summary ---
Author Organization [facility] Healthcare Address [address] [place] [address] Care Team Providers Care Instructor Modeling Name Role Phone Unavailable Primary Care Provider Unavailabl e Encounter Details Date Type Department Care Team (Latest Contact Info) Description 11/10/2012 7:44 AM CDT - 11/10/2012 10:13 AM CDT Hospital Encounter [facility] OP Palomo Barnes MD [address] [facility] [address] [place] [address] Thoracic or lumbosacral neuritis or radiculitis; Spinal stenosis of lumbar region without neurogenic claudication; Displacement of lumbar intervertebral disc without myelopathy; Lumbosacral spondylosis without myelopathy Social History Tobacco Use Types Packs/Day Years Used Date Smoking Tobacco: Never Assessed Comments Unknown Sex and Gender Information Value Date Recorded Sex Assigned at Not on file 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 Gender Identity Not on file Sexual Orientation Not on file documented as of this encounter Last Filed Vital Signs Vital Sign Reading Time Taken Comments Blood Pressure 160/107 11/10/2012 8:04 AM CDT Pulse 75 11/10/2012 8:04 AM CDT Temperature 36.5 ??C (97.7 ??F) 11/10/2012 8:04 AM CD T Respiratory Rate - - Oxygen Saturation 98% 11/10/2012 8:04 AM CDT Inhaled Oxygen Concentration - - Weight - - Height - - Body Mass Index - - documented in this encounter Plan of Treatment Not on file documented as of this encounter Visit Diagnoses Diagnosis Thoracic or lumbosacral neuritis or radiculitis Thoracic or lumbosacral neuritis or radiculitis, unspecified Spinal stenosis of lumbar region without neurogenic claudication Displacement of lumbar intervertebral disc without myelopathy Lumbosacral spondylosis without myelopathy documented in this encounter
--- OUTSIDE RECORDS SUMMARY | 2024-08-17 08:49 | XMS_ITS | Encounter Summary ---
Author Organization [facility] Healthcare Address [address] [place] [address] Care Team Providers Care Electric Lineman Name Role Phone Unavailable Primary Care Provider Unavailabl e Encounter Details Date Type Department Care Team (Latest Contact Info) Description 01/02/2013 3:09 PM CDT - 01/02/2013 4:03 PM CDT Hospital Encounter [facility] OP Palomo Barnes MD [address] [facility] [address] [place] [address] Lumbosacral spondylosis without myelopathy; Other chronic pain; Low back pain Social History Tobacco Use Types Packs/Day Years Used Date Smoking Tobacco: Never Assessed Comments Unknown Sex and Gender Information Value Date Recorded Sex Assigned at Not on file 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 Gender Identity Not on file Sexual Orientation Not on file documented as of this encounter Last Filed Vital Signs Vital Sign Reading Time Taken Comments Blood Pressure 137/93 01/02/2013 3:21 PM CDT Pulse 69 01/02/2013 3:21 PM CDT Temperature 36.7 ??C (98.1 ??F) 01/02/2013 3:21 PM CD T Respiratory Rate - - Oxygen Saturation 98% 01/02/2013 3:21 PM CDT Inhaled Oxygen Concentration - - Weight - - Height - - Body Mass Index - - documented in this encounter Plan of Treatment Not on file documented as of this encounter Visit Diagnoses Diagnosis Lumbosacral spondylosis without myelopathy Other chronic pain Low back pain Lumbago documented in this encounter
--- OUTSIDE RECORDS SUMMARY | 2024-08-17 08:49 | XMS_ITS | Encounter Summary ---
Author Organization [facility] Healthcare Address [address] [place] [address] Care Team Providers Care List Of First Job Ideas Name Role Phone Unavailable Primary Care Provider Unavailabl e Encounter Details Date Type Department Care Team (Late st Contact Info) Description 11/06/2012 10:09 AM CDT - 11/06/2012 11:43 AM CDT Hospital Encounter [facility] OP Palomo Barnes MD [address] [facility] [address] [place] [address] Low back pain Social History Tobacco Use Types Packs/Day Years Used Date Smoking Tobacco: Never Assessed Comments Unknown Sex and Gender Information Value Date Recorded Sex Assigned at Not on file 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
--- OUTSIDE RECORDS SUMMARY | 2024-08-17 08:49 | XMS_ITS | Encounter Summary ---
Author Organization [facility] Healthcare Address [address] [place] [address] Care Team Providers Care Director Cardiology Name Role Phone Unavailable Primary Care Provider Unavailabl e Encounter Details Date Type Department Care Team (Latest Contact Info) Description 02/19/2013 1:18 PM CDT - 02/19/2013 2:22 PM CDT Hospital Encounter [facility] OP Palomo Barnes MD [address] [facility] [address] [place] [address] Lumbosacral spondylosis without myelopathy; Low back pain Social History Tobacco Use Types Packs/Day Years Used Date Smoking Tobacco: Never Assessed Comments Unknown Sex and Gender Information Value Date Recorded Sex Assigned at Not on file Legal Sex Female 8:15 AM BULB FILLER Gender Identity Not on file Sexual Orientation Not on file documented as of this encounter Last Filed Vital Signs Vital Sign Reading Time Taken Comments Blood Pressure 144/96 02/19/2013 1:29 PM CDT Pulse 81 02/19/2013 1:29 PM CDT Temperature 36.6 ??C (97.9 ??F) 02/19/2013 1:29 PM CD T Respiratory Rate - - Oxygen Saturation 99% 02/19/2013 1:29 PM CDT Inhaled Oxygen Concentration - - Weight 76 kg (167 lb 8 oz) 02/19/2013 1:29 PM CD T Height 156.2 cm (5' 1.5 ) 02/19/2013 1:29 PM CDT Body Mass Index 31.14 02/19/2013 1:29 PM CDT documented in this encounter Plan of Treatment Not on file documented as of this encounter Visit Diagnoses Diagnosis Lumbosacral spondylosis without myelopathy Low back pain Lumbago documented in this encounter
--- OUTSIDE RECORDS SUMMARY | 2024-08-17 08:53 | XMS_ITS | Clinical Summary ---
Author Organization [facility] Address [address] [place] [address] Phone Care Team Providers Care Travel Accommodation Inspector Name Role Phone Kathya Orona DO Primary Care Provider +1- [phone] Allergies Active Allergy Reactions Criticality Noted Date Comments Erythromycin Itching Low 05/25/2021 Iodinated Contrast Media Itching Medium 06/23/2018 Kiwi Rash,Itching Low 06/23/2018 Macrolide Antibiotics Itching Low 06/02/2018 Naproxen Sodium Itching Low 06/02/2018 Nitrofurantoin Itching Low 04/21/2013 Itching Penicillins Itching Low 06/02/2018 Sulfa (Sulfonamide Antibiotics) Dizziness,Itching Medium 06/02/2018 Medications Medication Sig Dispensed Refills Start Date End Date Status ALPRAZolam (XANAX) 1 mg tablet Take 1 mg by mouth nightly as needed for Anxiety. Active fluticasone propionate (FLONASE) 50 mcg/spray [place], Suspension nasal inhaler Administer 2 Sprays in each nostril 1 time daily as needed. Active hydroCHLOROthiaz herman 25 mg tablet Take 37.5 mg by mouth daily. Takes 1 1/2 tablets Active albuterol sulfate 90 mcg/Actuation inhaler Take 2 Puffs by inhalation every 4 hours as needed for Shortness of Breath. Active simvastatin (ZOCOR) 20 mg tablet Take 20 mg by mouth daily at bedtime. Active sertraline (ZOLOFT) 50 mg tablet Take 50 mg by mouth daily at bedtime. Active budesonide-formo teroL (SYMBICORT) 160-4.5 mcg/actuation HFA Aerosol Inhaler Take 2 Puffs by inhalation 2 times daily as needed. Active amLODIPine (NORVASC) 5 mg tablet Take 10 mg by mouth daily. 11/02/2021 Active cyanocobalamin, vitamin B-12, (Vitamin B-12) 5,000 mcg/mL Drops Place 5,000 mcg under tongue daily. Active iron,carb/vit C/vit B12/folic (IRON 100 PLUS ORAL) Take 100 mg by mouth daily. liquid Active naloxone (NARCAN) 4 mg/spray [place], Non-Aerosol EMERGENCY USE ONLY: Administer 1 spray (4 mg) in one nostril one time. May repeat in alternating nostrils every 2-3 min until responsive or EMS arrives. 2 Each 3 01/08/2022 Active losartan (COZAAR) 100 mg tablet Take 100 mg by mouth every 24 hours. Active metFORMIN (GLUMETZA) 500 mg Extended Release 24 hour tablet Take 2 tablets every day by oral route. 04/25/2023 Active ondansetron (ZOFRAN ODT) 4 mg Tablet, Rapid Dissolve Take 1 Tablet (4 mg) by mouth every 8 hours as needed for Nausea/Emesis. Dissolve tablet on top of tongue, then swallow with saliva. You can take 1 tablet 15-30 minutes prior to each radiation treatment. 30 Tablet 3 07/16/2023 Active omeprazole (PriLOSEC) 40 mg Capsule, Delayed Release(E.C.) Take 1 Capsule (40 mg) by mouth daily. 30 Capsule 3 07/16/2023 Active potassium chloride (KLOR-CON) 20 mEq Extended Release tablet take 1 tablet by mouth daily 100 Tablet 2 10/15/2023 Active dicyclomine (BENTYL) 20 mg tablet TAKE 1 TABLET BY MOUTH FOUR TIMES DAILY FOR 30 DAYS 02/06/2024 Active diphenhydrAMINE (BENADRYL) 50 mg capsule Take 1 tablet [address] scan. 1 Capsule 05/01/2024 Active predniSONE (DELTASONE) 50 mg tablet Take 1 tablet by mouth [address] scan, [address] scan, and [address] scan. 3 Tablet 08/06/2024 Active predniSONE (DELTASONE) 50 mg tablet Take 1 tablet by mouth [address] scan, [address] scan, and [address] scan. 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 On[facility] and Hematology - [place] [address] [place] [address] Royal Newell MD 08/13/2024 Orders Only [facility] - [place] [address] [place] [address] Royal Newell MD 08/10/2024 Orders Only 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 On[facility] and Hematology - [place] [address] [place] [address] Ti Castelan MD 05/26/2024 External Device Data STL ABSTRACTION Provider, Abstract from Last 3 Months Immunizations Name Administration Dates Next Due INFLUENZA VACCINE QUADRIVALENT 6 MOS UP PF IM ,06/25/2017 Influenza, Unspecified Formulation 05/22/2017 Family History Medical History Relation Name Comments Prostate Cancer Brother 1 Prostate Cancer Brother 3 Cancer Brother 4 Prostate Cancer Brother 4 Diabetes Brother 5 Cancer Father Kidney Disease Mother Harleen Rizzo Kidney failur e Relation Name Status Comments Brother 1 Alive Brother 2 Alive Brother 3 Alive Brother 4 Brother 5 Alive Brother 6 Alive Brother 7 Alive Daughter Alive Father Mother Harleen Rizzo Sister 1 Alive Sister 2 Alive Sister 3 Alive Sister 4 Alive Sister 5 Alive Son Alive Social History Tobacco Use Types Packs/Day Years Used Date Smoking Tobacco: Former Cigarettes 0.5 10 1 10/04/2003 - 08/03/2014 Smokeless Tobacco: Never Tobacco Cessation:Counseling Given: Not Answered Alcohol Use Standard Drinks/Week Comments Not Currently 0 (1 standard drink = 0.6 oz pur e alcohol) Sex and Gender Information Value Date Recorded Sex Assigned at Not on file Gender Identity Not on file Sexual Orientation Not on file Last Filed Vital Signs Vital Sign Reading Time Taken Comments Blood Pressure 129/76 05/07/2024 1:00 PM CDT Pulse 89 05/07/2024 1:00 PM CDT Temperature 36.7 ??C (98 ??F) 05/07/2024 1:00 PM CDT Respiratory Rate 15 05/07/2024 1:00 PM CDT Oxygen Saturation 93% 05/07/2024 1:00 PM CDT Inhaled Oxygen Concentration - - Weight 72.7 kg (160 lb 3.2 oz) 05/07/2024 1:00 P M CDT Height 157.5 cm (5' 2 ) 02/20/2023 10:31 AM CDT Body Mass Index 29.3 02/20/2023 10:31 AM CDT Plan of Treatment Upcoming Encounters Date Type Department Care Team (Late st Contact Info) Description 08/25/2024 2:00 PM HEEL SEAT SANDER Office Visit [facility] On[facility] and [facility]ematology - [place] [address] [facility] [address] [place] [address] Royal Newell MD [address] [facility] [address] [place] [address] Health Maintenance Due Date Last Done Comments PNEUMOCOCCAL VACCINE 65+ YEA RS (1 of 2 - PCV) 1959 DIABETES ANNUAL FOOT EXAM 1971 DIABETES ANNUAL RETINAL EXAM 1971 DIABETES MICROALBUMIN ANNUAL SCREEN 1971 LDL CHOLESTEROL ANNUAL 1971 DTAP/TDAP/TD VACCINES (1 - Tdap) 1972 BREAST CANCER SCREENING 1993 COLORECTAL SCREENING 1998 Colorectal Cancer Screening 1998 FIT-DNA Q 3 years 1998 FIT/FOBT Q 1 year 1998 Flex Sig/CT Colonography Q 5 years 1998 ZOSTER VACCINE (1 of 2) 2003 RSV VACCINE (60+ or ) (1 - Risk 60-74 years 1-dose series) 2013 OSTEOPOROSIS SCREENING 2018 INFLUENZA VACCINE (#1) 2024 05/28/2018, 2016 DIABETES HBA1C Q 6 MONTHS 10/14/2024 04/16/2024 Medical Devices Implanted Type Area Die Designer Device Identifier Shelf Expiration Date Model / Serial / Lot Clip Ligating Horizon Lg Ti [id number] - Csc - [id number] Implanted:Qty : 1 on 12/29/2021 by Phil Mejia MD at [facility] N/A: Abdomen TELEFLEX- WECK CLOSURE SYS [id number] / / Clip Ligating Horizon Ti Sm 24 [id number] Rp - [id number] Implanted:Qty : 2 on 12/29/2021 by Phil Mejia MD at [facility] N/A: Abdomen TELEFLEX- WECK CLOSURE SYS [id number] RP / / Tube Feed Kangaroo 5fr 16in [id number] - [id number] Implanted:Qty : 1 on 12/29/2021 by Phil Mejia MD at [facility] Feeding Device N/A: Abdomen CARDINAL - PATIENT RECOVERY [id number] / / Description:INSERTED INTO PA NCREATIC DUCT Tube Feed [place] [id number] - [id number] Implanted:Qty : 1 on 12/29/2021 by Phil Mejia MD at [facility] Feeding Device N/A: Abdomen CARDINAL - PATIENT RECOVERY 04/11/2026 [id number] / / [id number] Description:WRAPPER CHECKED BY R.NAlina 01/01/22 Hemostat Surg Snow 2x4in 2081 - [id number] Implanted:Qty : 1 on 12/29/2021 by Phil Mejia MD at [facility] Hemostatic N/A: Abdomen J&J- [employer] 09/11/20232081 / / [id number] Sealant Fibrin Vistaseal 10ml Vst10 - [id number] Implanted:Qty : 1 on 12/29/2021 by Phil Mjeia MD at [facility] Sealant N/A: Abdomen J&J- [employer] 02/07/2023 VST10 / [id number] / [id number] Description:BOX CHECKED BY Melisa Nowak 01/01/2022 Stent Pncrtc Geenen 7fr 9cm [id number] - [id number] Implanted:Qty : 1 on 05/25/2021 by Omar Gonzalez MD at [facility] Stent COOK- ENDOSCOPY - HALINA-COOK [id number] 09/12/2023 [id number] / / [id number] Stent Bili Wallflex Rx 10x40 [id number] - [id number] Implanted:Qty : 1 on 05/25/2021 by Omar Gonzalez MD at [facility] Stent BOSTON SCI- ENDOSCOPY [id number] 02/13/2023 [id number] / / [id number] Procedures Procedure Name Priority Date/Time Associated Diagnosis Comments COMPREHENSIVE METABOLIC PANEL Routine 08/10/2024 2:00 PM HE[address] SEAT SANDER CT CHEST ABDOMEN PELVIS W CONT Routine 08/10/2024 10:55 AM HEEL SEAT SANDER from Last 3 Months Results * COMPREHENSIVE METABOLIC PANEL (08/10/2024 2:00 PM HEEL SEAT SANDER) Blood Royal Newell MD CHEMISTRY ORDERABLES * CT CHEST ABDOMEN PELVIS W CONT (08/10/2024 10:55 AM HEEL SEAT SANDER) Anatomical Region Laterality Modality Chest Other Royal Newell MD CT ORDERABLES from Last 3 Months Advance Directives For more information, please contact: [phone] * Full Code (Latest Code Status on File) Date Activated Date Inactivated Comments 12/29/2021 8:18 PM 01/08/2022 8:26 PM * Full Code Date Activated Date Inactivated Comments 12/29/2021 5:49 AM 12/29/2021 8:17 PM * Full Code Date Activated Date Inactivated Comments 05/25/2021 12:46 PM 06/01/2021 9:14 PM * Full Code Date Activated Date Inactivated Comments 05/24/2021 5:14 AM 05/25/2021 12:46 PM Care Teams Travel Accommodation Inspector Relationship Specialty Start Date End Date Kathya Orona DO [address] [facility] [address] [place] [address] PCP - General Family Practice 05/07/24
--- OUTSIDE RECORDS SUMMARY | 2024-08-17 08:54 | XMS_ITS | Encounter Summary ---
Author Organization [facility] [employer] [facility] Address [address] [place] [address] Care Team Providers Care Mine Engineer Name Role Phone Kathya Orona Primary Care Provider +1- [phone] Reason for Visit * Reason Onset Date Comments Medication Refill 08/06/2024 Encounter Details Date Type Department Care Team (Late st Contact Info) Description 08/06/2024 Refill [facility] Oncology and Hematology - [place] [address] [place] [address] Ti Castelan MD [address] [place] [address] Social History Tobacco Use Types Packs/Day Years Used Date Smoking Tobacco: Former Cigarettes 0.5 10 1 10/04/2003 - 08/03/2014 Smokeless Tobacco: Never Alcohol Use Standard Drinks/Week Comments Not Currently 0 (1 standard drink = 0.6 oz pur e alcohol) Sex and Gender Information Value Date Recorded Sex Assigned at Not on file Gender Identity Not on file Sexual Orientation Not on file documented as of this encounter Miscellaneous Notes * Telephone Encounter - Candi Hutchinson - 08/06/2024 4:14 PM CST Patient has CT Scan on 08/10/24 and is allergic to contrast. Patient is aware that medication was sent over. She has Benadryl at home so does not need to have that sent in. She is aware to take 50 mg1 hour prior to CT Scan. SHINER documented in this encounter Plan of Treatment Upcoming Encounters Date Type Department Care Team (Late st Contact Info) Description 08/25/2024 2:00 PM SHOE SHINER Office Visit [facility] Oncology and Hematology [facility] [address] [facility] [address] [place] [address] Royal Newell MD [address] [facility] [address] [place] [address] documented as of this encounter Visit Diagnoses Not on filedocumented in this encounter Care Teams Mine Engineer Relationship Specialty Start Date End Date Kathya Orona DO [address] [facility] [address] [place] [address] PCP - General Family Practice 05/07/24 documented as of this encounter
--- OUTSIDE RECORDS SUMMARY | 2024-08-17 08:54 | XMS_ITS | Encounter Summary ---
Author Organization [facility] [email or web address] [facility] Address [address] [place] [address] Care Team Providers Care Mailroom Supervisor Name Role Phone Kathya Orona DO Primary Care Provider +1- [phone] Encounter Details Date Type Department Care Team (Late Contact Info) Description 05/04/2024 Orders Only [facility] Oncology and Hematology - [place] [address] [place] [address] Royal Newell MD [address] [place] [address] Social History Tobacco Use Types [...] as of this encounter Plan of Treatment Upcoming Encounters Date Type Department Care Team (Late Contact Info) Description 08/25/2024 2:00 PM DRAFTER DETAIL Office Visit [facility] Oncology and Hematology - [place] [address] [place] [address] Royal Newell MD [address] [place] [address] documented as of this encounter Procedures Procedure Name Priority Date/Time Associated Diagnosis Comments CT CHEST ABDOMEN PELVIS W CONT Routine 05/04/2024 10:56 AM CDT CHG CA 19 9 Routine 04/30/2024 12:01 PM CDT documented in this encounter Results * CT CHEST ABDOMEN PELVIS W CONT (05/04/2024 10:56 AM CDT) Anatomical Region Laterality Modality Chest Other Royal Newell MD CT ORDERABLES * CHG CA 19 9 (04/30/2024 12:01 PM CDT) Royal Newell MD [facility]G - LABORATORY documented in this encounter Visit Diagnoses Not on filedocumented in this encounter Care Teams Mailroom Supervisor Relationship Specialty Start Date End Date Kathya Orona DO [address] [facility] [address] [place] [address] PCP - General Family Practice 05/07/24 documented as of this encounter
--- OUTSIDE RECORDS SUMMARY | 2024-08-17 08:54 | XMS_ITS | Encounter Summary ---
Author Organization [facility] Address [address] [place] [address] Care Team Providers Care Software Administrator Name Role Phone Kathya Orona DO Primary Care Provider +1- [phone] Encounter Details Date Type Department Care Team (Late st Contact Info) Description 05/26/2024 External Device Data STL ABSTRACTION Provider, Abstract NO ADDRESS ON FILE Social History Tobacco Use Types Packs/Day Years [...] st Contact Info) Description 08/25/2024 2:00 PM DATABASE TESTER Office Visit [facility] Oncology and Hematology - [place] [address] [facility] [address] [place] [address] Royal Newell MD [address] [facility] [address] [place] [address] documented as of this encounter Visit Diagnoses Not on filedocumented in this encounter Care Teams Software Administrator Relationship Specialty Start Date End Date Kathya Orona DO [address] [place] [address] [address] [place] [address] PCP - General Family Practice 05/07/24 documented as of this encounter
--- OUTSIDE RECORDS SUMMARY | 2024-08-17 08:54 | XMS_ITS ---
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 Past Plans No past plan information found. Radiation Treatments * No radiation treatments are documented for this patient in [facility]. Treatments may have been administered in another system. Lifetime Dose Tracking * Chemical Lifetime Dose Automatic Entry Manual Entr y Effective Dose 74.66 mSv 74.66 mSv 0 mSv Total DLP 3,177.68 DLP 3,177.68 DLP 0 DLP CTDIvol Max 36.61 mGy 36.61 mGy 0 mGy CTDIvol Min 4.4 mGy 4.4 mGy 0 mGy
--- OUTSIDE RECORDS SUMMARY | 2024-08-17 08:54 | XMS_ITS | Encounter Summary ---
Author Organization [facility] Address [address] [place] [address] Care Team Providers Care Child Therapist Name Role Phone Kathya Orona DO Primary Care Provider [phone] Reason for Referral * CT Scan (Routine) - Closed Specialty Diagnoses / Procedures Referred By Contac t Referred To Contact Diagnoses Ampullary carcinoma Procedures CT ABDOMEN PELVIS W CONTRAST Royal Newell MD [address] [place] [address] [place] [address] Referral ID Status Reason Start Date Expiration Date V isits Requested Visits Authorized [id number] Closed [facility] CTS 05/07/2024 06/07/2025 1 1 Reason for Visit * Reason Comments Cancer Follow Up Encounter Details Date Type Department Care Team (Late st Contact Info) Description 05/07/2024 1:00 PM CDT Office Visit [facility] Oncology and Hematology [address] [place] [address] Royal Newell MD [address] [place] [address] Ampullary carcinoma (Primary Dx) Social History Tobacco Use Types [...] oz) 05/07/2024 1:00 P M CDT Height - - Body Mass Index 29.3 02/20/2023 10:31 AM CDT documented in this encounter Progress Notes * Royal Newell MD - 05/07/2024 2:42 PM CDT HEMATOLOGY / ONCOLOGY PROGRESS NOTE Patient Identification: Name: Krissy Jaquez White Age: 68 y.o. 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 EGD done on May 22 showed malignant appearing duodenal mass and biopsies were taken. Pathology came back positive for gastritis. [facility] where she had EUS and ERCP done with Dr. Medeiros. 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 Neoadjuvant chemotherapy with modified FOLFIRINOX regimen started 07/11/2021. Received cycle 8/8 onOctober 31, 2021 with 20% dose reduction due to toxicity. Pancreaticoduodenectomy done on December 29, 2021. Patient completed SBRT treatment for oligometastasis to the liver in August 2023. SUBJECTIVE Patient came to the office for follow-up visit after the CT scan. She has gained 4 pound weight. She is complaining of the left rib cage pain. No diarrhea constipation. No other new complaints. Review of system Constitutional: denies fevers, sweats, has any tiredness and fatigue, 4 pound weight gain HEENT: denies sinus congestion, hearing or vision problems Respiratory: denies cough, dyspnea, wheeze Cardiovascular: denies chest pain, exertional chest pressure/discomfort, nausea, syncope, shortnessof breath GI: Denies any nausea vomiting and diarrhea. , denies any abdominal pain : denies dysuria, frequency, incontinence, urgency Integumentary system: no lymphadenopathy, sweats, flushing Musculoskeletal: denies: myalgia, arthralgia, complain of left rib cage pain Neurological: denies blurry or disturbed vision, denies any neuropathy. Skin: No lumps, bumps or rashes. 12 point review of system was reviewed Objective: Vital signs in last 24 hours: As per nursing note Exam: General appearance: alert, cooperative, no distress, appears stated age Head: normocephalic, without obvious abnormality, atraumatic Eyes: conjunctivae/corneas clear, EOM's intact Ears: normal external ear canals AU Nose: Nares normal. Septum midline. Mucosa normal. No drainage or sinus tenderness Throat: Lips, mucosa, and tongue normal. Teeth and gums normal Neck: supple, symmetrical, trachea midline. Lungs: clear to auscultation bilaterally Heart: regular rate and rhythm, S1, S2 normal, no murmur, click, rub or gallop Abdomen: Abdomen slightly distended due to umbilical hernia, bowel sounds are positive Extremities: extremities normal, atraumatic, no cyanosis or edema Skin: Skin color, texture, turgor normal. No rashes or lesions Lymph nodes: No lymphadenopathy Exam as above ECOG performance status 1 PATH FINAL DIAGNOSIS Lymph node, right gastroepiploic, excision - Fibroadipose tissue with focal lymphoid collection - No evidence of malignancy Gallbladder, cholecystectomy - Chronic cholecystitis Lymph node, portal vein, excision - 1 lymph node no evidence of metastatic carcinoma (0/1) Foreign material/instrumentation, pancreatic stent, gross examination only - Consistent with stent (gross examination only) Small bowel and pancreas, Whipple procedure - Ampullary tubulovillous adenoma with high-grade dysplasia - Residual mucin pools, consistent with treatment effect - 16 lymph nodes with no evidence of metastatic carcinoma (0/16) LABS Labs from May 30 showed WBC 6.5 hemoglobin 9.9 platelet 371,000 creatinine 0.9 total bilirubin 0.9 alkaline phosphatase 314 AST 27 ALT 50 Labs from July 11 eight showed WBC 6.5 hemoglobin 9.9 platelet 408,000 creatinine 0.7 Labs from July 25 showed WBC 23.8 hemoglobin 8.8 platelet 259,000 creatinine 0.9 Labs from October 03 showed WBC 22.5 hemoglobin 11.3 platelet 129,000 creatinine 0.9 Labs from October 17 showed WBC 4.4 hemoglobin 10.1 platelet 168,000 creatinine 0.8 Labs from October 31 showed WBC 17.3 hemoglobin 11.1 platelet 133,000 ANC 11,024. Labs from November 29 showed creatinine 0.9 WBC 6.5 hemoglobin 12.8 platelet 200,000 CA 19-9 15 Labs from January 18 2 WBC 10.2 hemoglobin 9.9 platelet 572,000 creatinine 0.7 Labs from April 20 showed creatinine 0.8 total bilirubin 0.4 WBC 5.9 hemoglobin 11 platelet 274,000 Labs from July 25 showed WBC 6.5 hemoglobin 11.5 platelet 254,000 Labs from October 23 showed WBC 12.1 hemoglobin 11.9 platelet 262,000 total bilirubin 0.5 AST 32 ALT 40 Labs from May 10 showed creatinine 0.6 AST 26 ALT 33 hemoglobin 12.1 CA 19-9 16 Labs from November 18 showed iron 69 saturation 17 ferritin 55 B12 more than 1000 WBC 4.8 hemoglobin 13.2 platelet 265,000 Labs from February 18 showed creatinine 0.6 WBC 8.6 hemoglobin 13.4 total bilirubin 0.5 CA 19-9 34 Labs from April 30 showed creatinine 0.7 total bilirubin 0.3 hemoglobin 13 CEA 19-9 50 Assessment: Plan: Patient Active Problem List Diagnosis Date Noted Incarcerated incisional hernia 08/30/2022 Pancreatic fistula 01/09/2022 Bacteremia due to Klebsiella pneumoniae 05/29/2021 Elevated LFTs Primary cancer of ampulla of Vater 05/24/2021 Acute diarrhea 05/24/2021 COPD (chronic obstructive pulmonary disease) 05/24/2021 Acute pancreatitis without necrosis or infection, unspecified 05/24/2021 Benign hypertension 05/24/2021 Pancreatic mass Jaundice, non- Abdominal pain 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 Gonzalez. Patient had pancreatic stent placed and biopsies were taken. CT scanshowed 3.5 cm mass at the ampulla extending into the duodenum without evidence of distant metastasis. Patient received neoadjuvant chemotherapy with FOLFIRINOX regimen cycle 8/8 completed October 31, 2021. Patient had pancreaticoduodenectomy done on January 06, 2022. Final pathology reviewed that showed no evidence of malignancy. Labs including tumor marker stable. CT chest abdomen pelvis done on May 10 showed new and enlarging bilateral pulmonary nodules and left hepatic lobe mass concerning for metastatic disease progression. PET scan was performed on May 28 that showed 2.5 cm left hepatic lobe mass with 17.6 SUV. Multiple normal size left axilla lymph nodes had mild FDG uptake likely not metastatic disease. There wasno abnormal uptake in several small pulmonary nodules dating back to CT dated May 2021 likely old granulomatous disease. Patient completed SBRT treatment to the liver oligometastasis in August [address]23. CT scan from May 04 showed stable 3.4 x 2 cm mass in the left hepatic lobe and stable large ventral hernia and a stable 6 mm pulmonary nodule. Clinically she is asymptomatic other than some left rib cage pain likely musculoskeletal. I will order repeat CT scan in 3 months with repeat labs. Anemia. Resolved. Continue iron and vitamin B12. Abdominal hernia. She is going to have surgery next week. 05/07/2024 Royal Newell MD documented in this encounter Plan of Treatment Upcoming Encounters Date Type Department Care Team (Late st Contact Info) Description 08/25/2024 2:00 PM QUALITY ASSURANCE CALIBRATOR Office Visit [facility] Oncology and Hematology [facility] [address] [facility] [address] [place] [address] Royal Newell MD [address] [facility] [address] [place] [address] Scheduled Orders Name Type Priority Associated Diagnoses Orde r Schedule CBC WITH DIFFERENTIAL Lab Stat Ampullary carcinoma Expected: 07/30/2024, Expires: 05/07/2025 CANCER ANTIGEN 19-9 Lab Routine Ampullary carcinoma Expected: 07/30/2024, Expires: 05/07/2025 COMPREHENSIVE METABOLIC PANEL Lab Stat Ampullary carcinoma Expected: 07/30/2024, Expires: 05/07/2025 CT ABDOMEN PELVIS W CONTRAST Imaging Routine Ampullary carcinoma Expected: 08/06/2024, Expires: 05/07/2025 documented as of this encounter Visit Diagnoses Diagnosis Ampullary carcinoma- Primary Malignant neoplasm of ampulla of Vater documented in this encounter Care Teams Child Therapist Relationship Specialty Start Date End Date Kathya Orona DO [facility] [address] [place] [address] PCP - General Family Practice 05/07/24 documented as of this encounter
--- OUTSIDE RECORDS SUMMARY | 2024-08-17 08:55 | XMS_ITS | Encounter Summary ---
Author Organization [facility] [email or web address] [facility] Address [address] [place] [address] Care Team Providers Care Dyed Yarn Operator Name Role Phone Rosibel Muse MD Primary Care Provider [phone] Encounter Details Date Type Department Care Team (Late Contact Info) Description 05/01/2024 Orders Only [facility] Oncology and Hematology - [place] [address] [place] [address] Royal Newell MD [address] [place] [address] Social History Tobacco Use Types [...] (Late Contact Info) Description 08/25/2024 2:00 PM AIRLINE CUSTOMER SERVICE AGENT Office Visit [facility] Oncology and Hematology - [place] [address] [place] [address] Royal Newell MD [address] [place] [address] documented as of this encounter Procedures Procedure Name Priority Date/Time Associated Diagnosis Comments COMPREHENSIVE METABOLIC PANEL Routine 04/30/2024 2:18 PM CDT documented in this encounter Results * COMPREHENSIVE METABOLIC PANEL (04/30/2024 2:18 PM CDT) Blood Royal Newell MD CHEMISTRY ORDERABLES documented in this encounter Visit Diagnoses Not on filedocumented in this encounter Care Teams Dyed Yarn Operator Relationship Specialty Start Date End Date Rosibel Muse MD PCP - General Family Practice 05/24/21 05/06/24 documented as of this encounter
--- OUTSIDE RECORDS SUMMARY | 2024-08-17 08:55 | XMS_ITS | Encounter Summary ---
Author Organization [facility] [employer] [facility] Address [address] [place] [address] Care Team Providers Care Resident Care Manager Name Role Phone Rosibel Muse MD Primary Care Provider [phone] Reason for Visit * Reason Onset Date Comments Medication Refill 05/01/2024 Encounter Details Date Type Department Care Team (Late Contact Info) Description 05/01/2024 Refill [facility] Oncology and Hematology [place] [address] [place] [address] Royal Newell MD [address] [place] [address] Social History Tobacco Use Types Packs/Day [...] (Late Contact Info) Description 08/25/2024 2:00 PM CONTROL CLERK FOOD AND BEVERAGE Office Visit [facility] Oncology and Hematology [place] [address] [place] [address] Royal Newell MD [address] [address] [place] [address] documented as of this encounter Visit Diagnoses Not on filedocumented in this encounter Care Teams Resident Care Manager Relationship Specialty Start Date End Date Rosibel Muse MD PCP - General Family Practice 05/24/21 05/06/24 documented as of this encounter
--- OUTSIDE RECORDS SUMMARY | 2024-08-17 08:55 | XMS_ITS | Encounter Summary ---
Author Organization [facility] [employer] [facility] Address [address] [place] [address] Care Team Providers Care Braille Translator Name Role Phone Rosibel Muse MD Primary Care Provider [phone] Reason for Visit * Reason Onset Date Comments Medication Refill 04/30/2024 Encounter Details Date Type Department Care Team (Late Contact Info) Description 04/30/2024 Refill [facility] Oncology and Hematology [place] [address] [place] [address] Royal Newell MD [address] [place] [address] Social History Tobacco Use Types Packs/Day [...] (Late Contact Info) Description 08/25/2024 2:00 PM TREND INVESTIGATOR Office Visit [facility] Oncology and Hematology [place] [address] [place] [address] Royal Newell MD [address] [place] [address] documented as of this encounter Visit Diagnoses Not on filedocumented in this encounter Care Teams Braille Translator Relationship Specialty Start Date End Date Rosibel Muse MD PCP - General Family Practice 05/24/21 05/06/24 documented as of this encounter
--- OUTSIDE RECORDS SUMMARY | 2024-08-17 08:56 | XMS_ITS | Encounter Summary ---
Author Organization [facility] Address [address] [place] [address] Care Team Providers Care Ship'S Cook Name Role Phone Rosibel Muse MD Primary Care Provider [phone] Encounter Details Date Type Department Care Team (Late st Contact Info) Description 03/03/2024 External Device Data STL ABSTRACTION Provider, Abstract [...] st Contact Info) Description 08/25/2024 2:00 PM MANAGER CHEMISTRY Office Visit [facility] Oncology and Hematology - [place] [address] [place] [address] [facility] [address] [place] [address] Royal Newell MD [address] [facility] [address] [place] [address] documented as of this encounter Visit Diagnoses Not on filedocumented in this encounter Care Teams Ship'S Cook Relationship Specialty Start Date End Date Rosibel Muse MD PCP - General Family Practice 05/24/21 05/06/24 documented as of this encounter
--- OUTSIDE RECORDS SUMMARY | 2024-08-17 08:56 | XMS_ITS | Encounter Summary ---
Author Organization [facility] Address [address] [place] [address] Care Team Providers Care Field Staff Name Role Phone Rosibel Muse MD Primary Care Provider [phone] Encounter Details Date Type Department Care Team (Late st Contact Info) Description 07/16/2023 Orders Only [facility] Radiation Therapy [address] [place] [address] Rl Chavez MD [address] [facility] [address] [place] [address] Social History Tobacco Use Types Packs/Day Years [...] st Contact Info) Description 08/25/2024 2:00 PM DIGITAL ASSOCIATE MEDIA DIRECTOR Office Visit [facility] Oncology and Hematology - [place] [address] [place] [address] Royal Newell MD [address] [facility] [address] [place] [address] documented as of this encounter Visit Diagnoses Not on filedocumented in this encounter Care Teams Field Staff Relationship Specialty Start Date End Date Rosibel Muse MD PCP - General Family Practice 05/24/21 05/06/24 documented as of this encounter
--- OUTSIDE RECORDS SUMMARY | 2024-08-17 08:56 | XMS_ITS | Encounter Summary ---
Author Organization [facility] Address [address] [place] [address] Care Team Providers Care Commercial Or Institutional Cleaner Name Role Phone Rosibel Muse MD Primary Care Provider [phone] Reason for Visit * Reason Onset Date Comments Schedule F/U Appt. 08/26/2023 LVM to schedu le F/U appt. w/ patient Encounter Details Date Type Department Care Team (Late st Contact Info) Description 08/26/2023 Telephone [facility] Oncology and Hematology - [place] [address] [place] [address] [address] [place] [address] [place] [address] [address] [place] [address] Schedule F/U Appt. (LVM to schedule F/U appt. w/ patient) Social History Tobacco Use Types Packs/Day Years [...] encounter Miscellaneous Notes * Telephone Encounter - Fátima Franks - 08/26/2023 12:00 PM CST LVM to schedule F/U appt. w/ patient [place] LABORATORY HELPER documented in this encounter Plan of Treatment Upcoming Encounters Date Type Department Care Team (Late st Contact Info) Description 08/25/2024 2:00 PM ANIMAL LABORATORY HELPER Office Visit [facility] Oncology and Hematology - [place] [address] [facility] [address] [place] [address] Royal Newell MD [address] [facility] [address] [place] [address] documented as of this encounter Visit Diagnoses Not on filedocumented in this encounter Care Teams Commercial Or Institutional Cleaner Relationship Specialty Start Date End Date Rosibel Muse MD PCP - General Family Practice 05/24/21 05/06/24 documented as of this encounter
--- OUTSIDE RECORDS SUMMARY | 2024-08-17 08:56 | XMS_ITS | Encounter Summary ---
Author Organization [facility] [employer] [facility] Address [address] [place] [address] Care Team Providers Care Business Machines Teacher Name Role Phone Rosibel Muse MD Primary Care Provider [phone] Encounter Details Date Type Department Care Team (Late Contact Info) Description 11/20/2023 Orders Only [facility] Oncology and Hematology - [place] [address] [place] [address] Royal Newell MD [address] [place] [address] Social History Tobacco Use Types [...] (Late Contact Info) Description 08/25/2024 2:00 PM PLASTIC MOLDING OPERATOR Office Visit [facility] Oncology and Hematology - [place] [address] [place] [address] Royal Newell MD [address] [place] [address] documented as of this encounter Procedures Procedure Name Priority Date/Time Associated Diagnosis Comments CBC WITH DIFFERENTIAL Routine 11/19/2023 7:53 AM CDT IRON, TIBC, AND PERCENT SATURATION Routine 11/19/2023 7:45 AM CDT documented in this encounter Results * CBC WITH DIFFERENTIAL (11/19/2023 7:53 AM CDT) Blood Royal Newell MD HEMATOLOGY ORDERABLE S * IRON, TIBC, AND PERCENT SATURATION (11/19/2023 7:45 AM CDT) Blood Royal Newell MD CHEMISTRY ORDERABLES documented in this encounter Visit Diagnoses Not on filedocumented in this encounter Care Teams Business Machines Teacher Relationship Specialty Start Date End Date Rosibel Muse MD PCP - General Family Practice 05/24/21 05/06/24 documented as of this encounter
--- OUTSIDE RECORDS SUMMARY | 2024-08-17 08:56 | XMS_ITS | Encounter Summary ---
Author Organization [facility] Address [address] [place] [address] Care Team Providers Care Front Desk Manager Name Role Phone Rosibel Muse MD Primary Care Provider [phone] Encounter Details Date Type Department Care Team (Late st Contact Info) Description 08/13/2023 Orders Only [facility] [address] [facility] [address] [place] [address] Edie Arriaga PA-C [address] [facility] [address] [place] [address] Contrast media allergy (Primary Dx) Social History Tobacco Use Types [...] st Contact Info) Description 08/25/2024 2:00 PM PRE ASSEMBLY WIRER Office Visit [facility] Oncology and Hematology - [place] [address] [place] [address] [facility] [address] [place] [address] Royal Newell MD [address] [facility] [address] [place] [address] documented as of this encounter Visit Diagnoses Diagnosis Contrast media allergy- Primary Allergy, unspecified not elsewhere classified documented in this encounter Care Teams Front Desk Manager Relationship Specialty Start Date End Date Rosibel Muse MD PCP - General Family Practice 05/24/21 05/06/24 documented as of this encounter
--- OUTSIDE RECORDS SUMMARY | 2024-08-17 08:56 | XMS_ITS | Encounter Summary ---
Author Organization [facility] [employer] [facility] Address [address] [place] [address] Care Team Providers Care Grain Packer Name Role Phone Rosibel Muse MD Primary Care Provider [phone] Reason for Visit * Reason Comments Med Refill Encounter Details Date Type Department Care Team (Late Contact Info) Description 10/15/2023 Refill [facility] Oncology and Hematology - [place] [address] [place] [address] Royal Newell MD [address] [employer] [address] [place] [address] Social History Tobacco Use Types [...] (Late Contact Info) Description 08/25/2024 2:00 PM NUISANCE WILDLIFE TRAPPER Office Visit [facility] Oncology and Hematology - [place] [address] [place] [address] Royal Newell MD [address] [employer] [address] [place] [address] documented as of this encounter Visit Diagnoses Not on filedocumented in this encounter Care Teams Grain Packer Relationship Specialty Start Date End Date Rosibel Muse MD PCP - General Family Practice 05/24/21 05/06/24 documented as of this encounter
--- OUTSIDE RECORDS SUMMARY | 2024-08-17 08:56 | XMS_ITS | Encounter Summary ---
Author Organization [facility] [employer] Raul [facility] Address [address] [place] [address] Care Team Providers Care Salesperson Yard Goods Name Role Phone Rosibel Muse MD Primary Care Provider [phone] Reason for Referral * CT Scan (Routine) - Closed Specialty Diagnoses / Procedures Referred By Divina berman Referred To Contact Diagnoses Ampullary carcinoma Procedures CT CHEST ABDOMEN PELVIS W CONT Royal Newell MD [address] [place] [address] [place] [address] Referral ID Status Reason Start Date Expiration Date V isits Requested Visits Authorized [id number] Closed STL CTS 02/27/2024 03/29/2025 1 1 Reason for Visit * Reason Comments Cancer Follow Up Encounter Details Date Type Department Care Team (Late st Contact Info) Description 02/27/2024 11:15 AM CDT Office Visit [facility] Oncology and Hematology [facility] [address] [place] [address] [address] [place] [address] Royal Newell MD [address] [place] [address] Ampullary carcinoma (Primary Dx) Social [...] Sign Reading Time Taken Comments Blood Pressure 116/76 02/27/2024 11:25 AM CDT Pulse 71 02/27/2024 11:25 AM CDT Temperature 36.8 ??C (98.2 ??F) 02/27/2024 11:25 AM C DT Respiratory Rate 18 02/27/2024 11:25 AM CDT Oxygen Saturation 96% 02/27/2024 11:25 AM CDT Inhaled Oxygen Concentration - - Weight 70.8 kg (156 lb) 02/27/2024 11:25 AM CDT Height - - Body Mass Index 28.53 02/20/2023 10:31 AM CDT documented in this encounter Progress Notes * Royal Newell MD - 02/27/2024 12:58 PM CDT HEMATOLOGY / ONCOLOGY PROGRESS NOTE [...] taken. Pathology came back positive for gastritis. [facility] where she had EUS and ERCP done [...] office for follow-up visit after the CT scan was performed. She denies any abdominal pain and chest pain. Denies any bleeding and bruising. She has lost 3 pound weight. No other new complaints. Review of system Constitutional: denies fevers, sweats, denies any tiredness and fatigue. Weight and appetite stable. HEENT: denies sinus congestion, hearing or vision problems Respiratory: denies cough, dyspnea, wheeze Cardiovascular: denies chest pain, exertional chest pressure/discomfort, nausea, syncope, shortnessof breath GI: Denies any nausea vomiting and diarrhea. Occasional abdominal discomfort likely secondary to umbilical hernia : denies dysuria, frequency, incontinence, urgency Integumentary system: no lymphadenopathy, sweats, flushing Musculoskeletal: denies: myalgia, arthralgia Neurological: denies blurry or disturbed vision, denies [...] 13.4 total bilirubin 0.5 CA 19-9 34 Assessment: Plan: Patient Active Problem List Diagnosis [...] received neoadjuvant chemotherapy with FOLFIRINOX regimen cycle 03/19 completed October 31, 2021. Patient had pancreaticoduodenectomy [...] liver oligometastasis in August 2023. CT scan chest abdomen pelvis done on February 18 showed 3.4 cm left hepatic lobe lesion decreased in size likely treated disease with no evidence of progressive disease. Several subcentimeter pulmonary nodules are unchanged. I have discussed this finding with patient and again discussed maintenance chemotherapy with 5-FU based regimen but she absolutely does not want any treatment at this time. We will see her back in [address] scan and blood test. Anemia. Hemoglobin is stable. She will continue oral iron and vitamin B-12. Abdominal hernia. She has seen by the surgeon and planning to have hernia repair done in April. TOBACCO COUNSELING She is not a tobacco/nicotine user. 02/27/2024 Royal Newell MD documented in this encounter Plan of Treatment Upcoming Encounters Date Type Department Care Team (Late st Contact Info) Description 08/25/2024 2:00 PM PHP SOFTWARE ENGINEER Office Visit [facility] Oncology and Hematology [facility] [address] [facility] [address] [place] [address] Royal Nweell MD [address] [facility] [address] [place] [address] Scheduled Orders Name Type Priority Associated Diagnoses Orde r Schedule CBC WITH DIFFERENTIAL Lab Stat Ampullary carcinoma Expected: 05/21/2024, Expires: 02/26/2025 CANCER ANTIGEN 19-9 Lab Routine Ampullary carcinoma Expected: 05/21/2024, Expires: 02/26/2025 COMPREHENSIVE METABOLIC PANEL Lab Stat Ampullary carcinoma Expected: 05/21/2024, Expires: 02/26/2025 CT CHEST ABDOMEN PELVIS W CONT Imaging Routine Ampullary carcinoma Expected: 05/29/2024, Expires: 02/26/2025 documented as of this encounter Visit Diagnoses Diagnosis 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
--- OUTSIDE RECORDS SUMMARY | 2024-08-17 08:56 | XMS_ITS | Encounter Summary ---
Author Organization [facility] FREDER[employer]ontron Raul [facility] Address [address] [place] [address] Care Team Providers Care Senior Account Clerk Name Role Phone Rosibel Muse MD Primary Care Provider [phone] Reason for Referral * CT Scan (Routine) - Closed Specialty Diagnoses / Procedures Referred By Divina berman Referred To Contact Diagnoses Ampullary carcinoma Procedures CT CHEST ABDOMEN PELVIS W CONT Royal Newell MD [address] [place] [address] [place] [address] Referral ID Status Reason Start Date Expiration Date V isits Requested Visits Authorized [id number] Closed STL CTS 11/26/2023 12/26/2024 1 1 Reason for Visit * Reason Comments Follow Up Encounter Details Date Type Department Care Team (Late st Contact Info) Description 11/26/2023 11:15 AM CDT Office Visit [facility] Oncology and Hematology [facility] [address] [facility] [address] [place] [address] Royal Newell MD [address] [place] [address] Ampullary carcinoma (Primary Dx); Contrast media allergy Social History Tobacco Use Types Packs/Day Years [...] Reading Time Taken Comments Blood Pressure 123/81 11/26/2023 11:12 AM CDT Pulse 79 11/26/2023 11:12 AM CDT Temperature 35.8 ??C (96.5 ??F) 11/26/2023 11:12 AM C DT Respiratory Rate 14 11/26/2023 11:12 AM CDT Oxygen Saturation 96% 11/26/2023 11:12 AM CDT Inhaled Oxygen Concentration - - Weight 72.1 kg (159 lb) 11/26/2023 11:12 AM CDT Height - - Body Mass Index 29.08 02/20/2023 10:31 AM CDT documented in this encounter Progress Notes * Royal Newell MD - 11/26/2023 12:10 PM CDT HEMATOLOGY / ONCOLOGY PROGRESS NOTE [...] taken. Pathology came back positive for gastritis. [facility] where she had EUS and ERCP [...] liver in August 2023. SUBJECTIVE Patient came in the office for follow-up visit after the SBRT treatment to the liver was performed.She denies any chest pain but does have some occasional right upper quadrant abdominal pain. Deniesany bleeding and bruising. No nausea vomiting. No other new complaints. Review of system Constitutional: denies fevers, sweats, weight and stable, denies any tiredness and fatigue HEENT: denies sinus congestion, hearing or vision problems Respiratory: denies cough, dyspnea, wheeze Cardiovascular: denies chest pain, exertional chest pressure/discomfort, nausea, syncope, shortnessof breath GI: Denies any nausea vomiting and diarrhea., Complain of some lower abdominal discomfort : denies dysuria, frequency, incontinence, urgency Integumentary [...] murmur, click, rub or gallop Abdomen: Abdomen soft distended with some mild right upper quadrant tenderness. Bowel sounds are positive Extremities: extremities normal, atraumatic, [...] 1000 WBC 4.8 hemoglobin 13.2 platelet 265,000 Assessment: Plan: Patient Active Problem List Diagnosis [...] to the liver oligometastasis in August 2023. Clinically she is feeling good. I have suggested maintenance chemotherapy with 5-FU based regimen but she absolutely does not want any further chemotherapy at least at this point. I will continue to observe and see her back in [address] chest abdomen and pelvis along with repeat labs. Anemia. Hemoglobin normal. Continue iron and vitamin B12. TOBACCO COUNSELING She is not a tobacco/nicotine user. 11/26/2023 Royal Newell MD documented in this encounter Plan of Treatment Upcoming Encounters Date Type Department Care Team (Late st Contact Info) Description 08/25/2024 2:00 PM FINAL ASSEMBLER BOAT Office Visit [facility] Oncology and Hematology [facility] [address] [facility] [address] [place] [address] Royal Newell MD [address] [facility] [address] [place] [address] Scheduled Orders Name Type Priority Associated Diagnoses Orde r Schedule CBC WITH DIFFERENTIAL Lab Stat Ampullary carcinoma Expected: 02/18/2024, Expires: 11/25/2024 COMPREHENSIVE METABOLIC PANEL Lab Stat Ampullary carcinoma Expected: 02/18/2024, Expires: 11/25/2024 CANCER ANTIGEN 19-9 Lab Routine Ampullary carcinoma Expected: 02/18/2024, Expires: 11/25/2024 CT CHEST ABDOMEN PELVIS W CONT Imaging Routine Ampullary carcinoma Expected: 02/25/2024, Expires: 11/25/2024 documented as of this encounter Visit Diagnoses Diagnosis 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
--- OUTSIDE RECORDS SUMMARY | 2024-08-17 08:56 | XMS_ITS | Encounter Summary ---
Author Organization [facility] Address [address] [place] [address] Care Team Providers Care Core Fitter Name Role Phone Rosibel Muse MD Primary Care Provider [phone] Encounter Details Date Type Department Care Team (Latest Contact Info) Description 08/19/2023 3:40 PM BLOCK HACKER - 08/19/2023 11:59 PM [facility] Hospital Encounter [facility] Scan [address] [place] [address] [facility], External Provider [address] [place] [address] Discharge Disposition: Home or Self Care Social History Tobacco Use Types Packs/Day Years [...] this encounter Medications at Time of Discharge Medication Sig Dispensed Refills Start Date End Date ondansetron (ZOFRAN ODT) 4 mg Tablet, Rapid Dissolve Take 1 Tablet (4 mg) by mouth every 8 hours as needed for Nausea/Emesis. Dissolve tablet on top of tongue, then swallow with saliva. You can take 1 tablet 15-30 minutes prior to each radiation treatment. 30 Tablet 3 07/16/2023 omeprazole (PriLOSEC) 40 mg Capsule, Delayed Release(E.C.) Take 1 Capsule (40 mg) by mouth daily. 30 Capsule 3 07/16/2023 metFORMIN (GLUMETZA) 500 mg Extended Release 24 hour tablet Take 2 tablets every day by oral route. 04/25/2023 losartan (COZAAR) 100 mg tablet Take 100 mg by mouth every 24 hours. naloxone (NARCAN) 4 mg/spray [place], Non-Aerosol EMERGENCY USE ONLY: Administer 1 spray (4 mg) in one nostril one time. May repeat in alternating nostrils every 2-3 min until responsive or EMS arrives. 2 Each 3 01/08/2022 cyanocobalamin, vitamin B-12, (Vitamin B-12) 5,000 mcg/mL Drops Place 5,000 mcg under tongue daily. iron,carb/vit C/vit B12/folic (IRON 100 PLUS ORAL) Take 100 mg by mouth daily. liquid amLODIPine (NORVASC) 5 mg tablet Take 10 mg by mouth daily. 11/02/2021 ALPRAZolam (XANAX) 1 mg tablet Take 1 mg by mouth nightly as needed for Anxiety. fluticasone propionate (FLONASE) 50 mcg/spray [place], Suspension nasal inhaler Administer 2 Sprays in each nostril 1 time daily as needed. hydroCHLOROthiazide 25 mg tablet Take 37.5 mg by mouth daily. Takes 1 1/2 tablets albuterol sulfate 90 mcg/Actuation inhaler Take 2 Puffs by inhalation every 4 hours as needed for Shortness of Breath. simvastatin (ZOCOR) 20 mg tablet Take 20 mg by mouth daily at bedtime. sertraline (ZOLOFT) 50 mg tablet Take 50 mg by mouth daily at bedtime. budesonide-formoter oL (SYMBICORT) 160-4.5 mcg/actuation HFA Aerosol Inhaler Take 2 Puffs by inhalation 2 times daily as needed. predniSONE (DELTASONE) 50 mg tabletIndications:C ontrast allergy Take 1 Tablet (50 mg) by mouth see administration instructions. Take 1 tablet 2pm day before CT scan, take 1 tablet at 10pm night before CT scan and take 1 tablet 2 hours before test. Also take Benadryl (50mg) 10pm night before test and 2 hours before test 3 Tablet 08/13/2023 02/17/2024 potassium chloride (KLOR-CON) 20 mEq Extended Release tablet TAKE 1 TABLET BY MOUTH DAILY 100 Tablet 2 01/08/2023 10/15/2023 documented as of this encounter Plan of Treatment Upcoming Encounters Date Type Department Care Team (Late st Contact Info) Description 08/25/2024 2:00 PM BLOCK HACKER Office Visit [facility] Oncology and Hematology - [place] [address] [facility] [address] [place] [address] Royal Newell MD [address] [facility] [address] [place] [address] documented as of this encounter Procedures Procedure Name Priority Date/Time Associated Diagnosis Comments CT PRIOR STUDY Routine 08/19/2023 3:40 PM BLOCK HACKER Encounter for administrative examinations, unspecified documented in this encounter Results * CT PRIOR STUDY (08/19/2023 3:40 PM BLOCK HACKER) Narrative 08/21/2023 3:37 PM BLOCK HACKER This exam was auto finalized to allow images to be scanned to PACS. External Provider [facility] CT ORDERABLES documented in this encounter Visit Diagnoses Diagnosis Encounter for administrative examinations, unspecified documented in this encounter Care Teams Core Fitter Relationship Specialty Start Date End Date Rosibel Muse MD PCP - General Family Practice 05/24/21 05/06/24 documented as of this encounter
--- OUTSIDE RECORDS SUMMARY | 2024-08-17 08:56 | XMS_ITS | Encounter Summary ---
Author Organization [facility] Address [address] [place] [address] Care Team Providers Care Neurology Director Name Role Phone Rosibel Muse MD Primary Care Provider [phone] Encounter Details Date Type Department Care Team (Late st Contact Info) Description 09/04/2023 External Device Data STL ABSTRACTION Provider, Abstract [...] st Contact Info) Description 08/25/2024 2:00 PM JUNIOR ACCOUNTANT Office Visit [facility] Oncology and Hematology - [place] [address] [place] [address] [address] [place] [address] Royal Newell MD [address] [facility] [address] [place] [address] documented as of this encounter Visit Diagnoses Not on filedocumented in this encounter Care Teams Neurology Director Relationship Specialty Start Date End Date Rosibel Muse MD PCP - General Family Practice 05/24/21 05/06/24 documented as of this encounter
--- OUTSIDE RECORDS SUMMARY | 2024-08-17 08:56 | XMS_ITS | Encounter Summary ---
Author Organization [facility] [employer] [facility] Address [address] [place] [address] Care Team Providers Care First Dyer Name Role Phone Rosibel Muse MD Primary Care Provider Encounter Details Date Type Department Care Team (Late Contact Info) Description 02/19/[address] [facility] Oncology and Hematology - [place] [address] [place] [address] Royal Newell MD [address] [place] [address] Social History Tobacco Use Types [...] (Late Contact Info) Description 08/25/2024 2:00 PM RN EMERGENCY Office Visit [facility] Oncology and Hematology - [place] [address] [place] [address] Royal Newell MD [address] [place] [address] documented as of this encounter Procedures Procedure Name Priority Date/Time Associated Diagnosis Comments COMPREHENSIVE METABOLIC PANEL Routine 02/19/2024 4:[address] CHEST ABDOMEN PELVIS W CONT Routine 02/19/2024 1:28 PM CDT documented in this encounter Results * COMPREHENSIVE METABOLIC PANEL (02/19/2024 4:08 PM CDT) Blood Royal Newell MD CHEMISTRY ORDERABLES * CT CHEST ABDOMEN PELVIS W CONT (02/19/2024 1:28 PM CDT) Anatomical Region Laterality Modality Chest Other Royal Newell MD CT ORDERABLES documented in this encounter Visit Diagnoses Not on filedocumented in this encounter Care Teams First Dyer Relationship Specialty Start Date End Date Rosibel Muse MD PCP - General Family Practice 05/24/21 05/06/24 documented as of this encounter
--- OUTSIDE RECORDS SUMMARY | 2024-08-17 08:56 | XMS_ITS | Encounter Summary ---
Author Organization [facility] [facility] Address [address] [place] [address] Care Team Providers Care Manager Council Name Role Phone Rosibel Muse MD Primary Care Provider [phone] Encounter Details Date Type Department Care Team (Late Contact Info) Description 11/19/2023 Orders Only [facility] Oncology and Hematology [facility] [address] [place] [address] Royal Newell MD [facility] [place] [address] Iron deficiency anemia, unspecified iron deficiency anemia type (Primary Dx) Social History Tobacco Use Types [...] (Late Contact Info) Description 08/25/2024 2:00 PM WAFER PRODUCTION LEAD WORKER Office Visit [facility] Oncology and Hematology - [place] [address] [place] [address] Royal Newell MD [address] [place] [address] Scheduled Orders Name Type Priority Associated Diagnoses Orde r Schedule IRON, TIBC, AND PERCENT SATURATION Lab Routine Iron deficiency anemia, unspecified iron deficiency anemia type Expected: 11/19/2023, Expires: 11/18/2024 FERRITIN Lab Routine Iron deficiency anemia, unspecified iron deficiency anemia type Expected: 11/19/2023, Expires: 11/18/2024 VITAMIN B12 AND FOLATE Lab Routine Iron deficiency anemia, unspecified iron deficiency anemia type Expected: 11/19/2023, Expires: 11/18/2024 CBC WITH DIFFERENTIAL Lab Routine Iron deficiency anemia, unspecified iron deficiency anemia type Expected: 11/19/2023, Expires: 11/18/2024 documented as of this encounter Visit Diagnoses Diagnosis Iron deficiency anemia, unspecified iron deficiency anemia type- Primary documented in this encounter Care Teams Manager Council Relationship Specialty Start Date End Date Rosibel Muse MD PCP - General Family Practice 05/24/21 05/06/24 documented as of this encounter
--- OUTSIDE RECORDS SUMMARY | 2024-08-17 08:56 | XMS_ITS | Encounter Summary ---
Author Organization [facility] Address [address] [place] [address] Care Team Providers Care Forestry Patrolman Name Role Phone Rosibel Muse MD Primary Care Provider [phone] Encounter Details Date Type Department Care Team (Late st Contact Info) Description 07/09/2023 External Device Data STL ABSTRACTION Provider, Abstract [...] st Contact Info) Description 08/25/2024 2:00 PM SOUND ART INSTRUCTOR Office Visit [facility] Oncology and Hematology - [place] [address] [place] [address] [facility] [address] [place] [address] Royal Newell MD [address] [facility] [address] [place] [address] documented as of this encounter Visit Diagnoses Not on filedocumented in this encounter Care Teams Forestry Patrolman Relationship Specialty Start Date End Date Rosibel Muse MD PCP - General Family Practice 05/24/21 05/06/24 documented as of this encounter
--- OUTSIDE RECORDS SUMMARY | 2024-08-17 08:56 | XMS_ITS | Encounter Summary ---
Author Organization [facility] Address [address] [place] [address] Care Team Providers Care Corporate Bond Trader Name Role Phone Rosibel Muse MD Primary Care Provider [phone] Reason for Visit * Reason Onset Date Comments Patient want a telephone appmt 08/23/2023 Encounter Details Date Type Department Care Team (Late Contact Info) Description 08/23/2023 Telephone [facility] Surgical Specialists [facility] [address] [facility] [address] [place] [address] Az aLu Patient want a telephone appmt Social History Tobacco Use Types Packs/Day Years [...] encounter Miscellaneous Notes * Telephone Encounter - Az Lau - 08/23/2023 8:34 AM CHARGE ACCOUNT IDENTIFICATION CLERK Patient call to change her OVE to a Telephone Check up appmt. Same time 11am GE ACCOUNT IDENTIFICATION CLERK documented in this encounter Plan of Treatment Upcoming Encounters Date Type Department Care Team (Late Contact Info) Description 08/25/2024 2:00 PM CHARGE ACCOUNT IDENTIFICATION CLERK Office Visit [facility] Oncology and Hematology - [place] [address] [facility] [address] [place] [address] Royal Newell MD [address] [facility] [address] [place] [address] documented as of this encounter Visit Diagnoses Not on filedocumented in this encounter Care Teams Corporate Bond Trader Relationship Specialty Start Date End Date Rosibel Muse MD PCP - General Family Practice 05/24/21 05/06/24 documented as of this encounter
--- OUTSIDE RECORDS SUMMARY | 2024-08-17 08:56 | XMS_ITS | Encounter Summary ---
Author Organization [facility] Address [address] [place] [address] Care Team Providers Care Public Relations Senior Associate Name Role Phone Rosibel Muse MD Primary Care Provider [phone] Encounter Details Date Type Department Care Team (Late st Contact Info) Description 09/11/2023 External Device Data STL ABSTRACTION Provider, Abstract [...] st Contact Info) Description 08/25/2024 2:00 PM COMMUNICATIONS INTERN Office Visit [facility] Oncology and Hematology - [place] [address] [place] [address] [facility] [address] [place] [address] Royal Newell MD [address] [facility] [address] [place] [address] documented as of this encounter Visit Diagnoses Not on filedocumented in this encounter Care Teams Public Relations Senior Associate Relationship Specialty Start Date End Date Rosibel Muse MD PCP - General Family Practice 05/24/21 05/06/24 documented as of this encounter
--- OUTSIDE RECORDS SUMMARY | 2024-08-17 08:56 | XMS_ITS | Encounter Summary ---
Author Organization [facility] Address [address] [place] [address] Care Team Providers Care Fabric Machine Operator Name Role Phone Rosibel Muse MD Primary Care Provider [phone] Encounter Details Date Type Department Care Team (Late st Contact Info) Description 07/30/2023 Chart Note [facility] Radiation Therapy [address] [place] [address] Rl Chavez MD [address] [facility] [address] [place] [address] Social History Tobacco Use Types [...] st Contact Info) Description 08/25/2024 2:00 PM WEIGHT TRAINER Office Visit [facility] Oncology and Hematology - [place] [address] [facility] [address] [place] [address] Royal Newell MD [address] [facility] [address] [place] [address] documented as of this encounter Visit Diagnoses Not on filedocumented in this encounter Care Teams Fabric Machine Operator Relationship Specialty Start Date End Date Rosibel Muse MD PCP - General Family Practice 05/24/21 05/06/24 documented as of this encounter
--- OUTSIDE RECORDS SUMMARY | 2024-08-17 08:56 | XMS_ITS | Encounter Summary ---
Author Organization [facility] Address [address] [place] [address] Care Team Providers Care Combine Driver Name Role Phone Rosibel Muse MD Primary Care Provider [phone] Encounter Details Date Type Department Care Team (Late st Contact Info) Description 09/13/2023 External Device Data STL ABSTRACTION Provider, Abstract [...] st Contact Info) Description 08/25/2024 2:00 PM DECATOR OPERATOR Office Visit [facility] Oncology and Hematology - [place] [address] [place] [address] [facility] [address] [place] [address] Royal Newell MD [address] [facility] [address] [place] [address] documented as of this encounter Visit Diagnoses Not on filedocumented in this encounter Care Teams Combine Driver Relationship Specialty Start Date End Date Rosibel Muse MD PCP - General Family Practice 05/24/21 05/06/24 documented as of this encounter
--- OUTSIDE RECORDS SUMMARY | 2024-08-17 08:56 | XMS_ITS | Encounter Summary ---
Author Organization [facility] Address [address] [place] [address] Care Team Providers Care Rag Sorter Name Role Phone Rosibel Muse MD Primary Care Provider [phone] Reason for Visit * Reason Onset Date Comments Imaging Results 08/23/2023 Encounter Details Date Type Department Care Team (Late st Contact Info) Description 08/23/2023 Telephone [facility] Radiation Therapy [address] [place] [address] Rl Chavez MD [address] [facility] [address] [place] [address] Imaging Results Social History Tobacco Use Types Packs/Day Years [...] encounter Miscellaneous Notes * Telephone Encounter - Rl Chavez MD - 08/23/2023 2:43 PM CST I called and spoke with her. She had a recent restaging CT that was performed while she was undergoing liver SBRT (between 4/5 planned treatments). Her liver tumor was reported to have increased in size. I agree that her liver tumor has increased in size since her prior PET in 05/2023 however she underwent a radiation planning CT + MRI abdomen in 07/2023 at [facility]. Her liver tumor has beenstable since that time. I reassured her that I would repeat imaging in 3 months post-SBRT to help evaluate tumor response to treatment. Rl Chavez MD Radiation Oncology TAL ASSET MANAGER documented in this encounter Plan of Treatment Upcoming Encounters Date Type Department Care Team (Late st Contact Info) Description 08/25/2024 2:00 PM DIGITAL ASSET MANAGER Office Visit [facility] Oncology and Hematology [facility] [address] [facility] [address] [place] [address] Royal Newell MD [address] [facility] [address] [place] [address] documented as of this encounter Visit Diagnoses Not on filedocumented in this encounter Care Teams Rag Sorter Relationship Specialty Start Date End Date Rosibel Muse MD PCP - General Family Practice 05/24/21 05/06/24 documented as of this encounter
--- OUTSIDE RECORDS SUMMARY | 2024-08-17 08:56 | XMS_ITS | Encounter Summary ---
Author Organization [facility] Address [address] [place] [address] Care Team Providers Care Para Machine Operator Name Role Phone Rosibel Muse MD Primary Care Provider [phone] Encounter Details Date Type Department Care Team (Late st Contact Info) Description 08/13/2023 External Device Data STL ABSTRACTION Provider, Abstract [...] st Contact Info) Description 08/25/2024 2:00 PM RESIDENTIAL AIDE Office Visit [facility] Oncology and Hematology - [place] [address] [place] [address] [facility] [address] [place] [address] Royal Newell MD [address] [facility] [address] [place] [address] documented as of this encounter Visit Diagnoses Not on filedocumented in this encounter Care Teams Para Machine Operator Relationship Specialty Start Date End Date Rosibel Muse MD PCP - General Family Practice 05/24/21 05/06/24 documented as of this encounter
--- OUTSIDE RECORDS SUMMARY | 2024-08-17 08:56 | XMS_ITS | Encounter Summary ---
Author Organization [facility] Address [address] [place] [address] Care Team Providers Care Health Information Tech Name Role Phone Rosibel Muse MD Primary Care Provider [phone] Reason for Visit * Reason Onset Date Comments Medication Refill 02/17/2024 Encounter Details Date Type Department Care Team (Late Contact Info) Description 02/17/2024 Refill [facility] Oncology and Hematology [place] [address] [place] [address] Royal Newell MD [facility] [address] [place] [address] Contrast media allergy Social History Tobacco Use [...] (Late Contact Info) Description 08/25/2024 2:00 PM QUARTZ MOUNTER Office Visit [facility] Oncology and Hematology [place] [address] [place] [address] Royal Newell MD [address] [place] [address] documented as of this encounter Visit Diagnoses Diagnosis Contrast media allergy Allergy, unspecified not elsewhere classified documented in this encounter Care Teams Health Information Tech Relationship Specialty Start Date End Date Rosibel Muse MD PCP - General Family Practice 05/24/21 05/06/24 documented as of this encounter
--- OUTSIDE RECORDS SUMMARY | 2024-08-17 08:56 | XMS_ITS | Encounter Summary ---
Author Organization [facility] Address [address] [place] [address] Care Team Providers Care Clay Structure Builder And Servicer Name Role Phone Rosibel Muse MD Primary Care Provider Encounter Details Date Type Department Care Team (Late Contact Info) Description 02/21/2024 Orders Only [facility] Oncology and Hematology - [place] [address] [place] [address] Royal Newell MD [address] [place] [address] Social History Tobacco Use Types [...] (Late Contact Info) Description 08/25/2024 2:00 PM GREENS KEEPER Office Visit [facility] Oncology and Hematology - [place] [address] [place] [address] Royal Newell MD [address] [place] [address] documented as of this encounter Procedures Procedure Name Priority Date/Time Associated Diagnosis Comments CANCER ANTIGEN 19-9 Routine 02/19/2024 9:18 AM CDT documented in this encounter Results * CANCER ANTIGEN 19-9 (02/19/2024 9:18 AM CDT) Blood Royal Newell MD CHEMISTRY ORDERABLES documented in this encounter Visit Diagnoses Not on filedocumented in this encounter Care Teams Clay Structure Builder And Servicer Relationship Specialty Start Date End Date Rosibel Muse MD PCP - General Family Practice 05/24/21 05/06/24 documented as of this encounter
--- OUTSIDE RECORDS SUMMARY | 2024-08-17 08:56 | XMS_ITS | Encounter Summary ---
Author Organization [facility] Address [address] [place] [address] Care Team Providers Care Computer Security Specialist Name Role Phone Rosibel Muse MD Primary Care Provider [phone] Encounter Details Date Type Department Care Team (Late st Contact Info) Description 07/01/2023 External Device Data STL ABSTRACTION Provider, Abstract [...] st Contact Info) Description 08/25/2024 2:00 PM WATERWORKS EMPLOYEE Office Visit [facility] Oncology and Hematology - [place] [address] [place] [address] [facility] [address] [place] [address] Royal Newell MD [address] [facility] [address] [place] [address] documented as of this encounter Visit Diagnoses Not on filedocumented in this encounter Care Teams Computer Security Specialist Relationship Specialty Start Date End Date Rosibel Muse MD PCP - General Family Practice 05/24/21 05/06/24 documented as of this encounter
--- OUTSIDE RECORDS SUMMARY | 2024-08-17 08:56 | XMS_ITS | Encounter Summary ---
Author Organization [facility] Address [address] [place] [address] Care Team Providers Care Errand Runner Name Role Phone Rosibel Muse MD Primary Care Provider [phone] Encounter Details Date Type Department Care Team (Late st Contact Info) Description 12/10/2023 External Device Data STL ABSTRACTION Provider, Abstract [...] st Contact Info) Description 08/25/2024 2:00 PM HAND RIGGER Office Visit [facility] Oncology and Hematology - [place] [address] [place] [address] [address] [place] [address] Royal Newell MD [address] [facility] [address] [place] [address] documented as of this encounter Visit Diagnoses Not on filedocumented in this encounter Care Teams Errand Runner Relationship Specialty Start Date End Date Rosibel Muse MD PCP - General Family Practice 05/24/21 05/06/24 documented as of this encounter
--- OUTSIDE RECORDS SUMMARY | 2024-08-17 08:56 | XMS_ITS | Encounter Summary ---
Author Organization [facility] Address [address] [place] [address] Care Team Providers Care Reimbursement Auditor Name Role Phone Rosibel Muse MD Primary Care Provider [phone] Encounter Details Date Type Department Care Team (Late st Contact Info) Description 07/26/2023 External Device Data STL ABSTRACTION Provider, Abstract [...] st Contact Info) Description 08/25/2024 2:00 PM ATMOSPHERIC TECHNICIAN Office Visit [facility] Oncology and Hematology - [place] [address] [place] [address] [facility] [address] [place] [address] Royal Newell MD [address] [facility] [address] [place] [address] documented as of this encounter Visit Diagnoses Not on filedocumented in this encounter Care Teams Reimbursement Auditor Relationship Specialty Start Date End Date Rosibel Muse MD PCP - General Family Practice 05/24/21 05/06/24 documented as of this encounter
--- OUTSIDE RECORDS SUMMARY | 2024-08-17 08:56 | XMS_ITS | Encounter Summary ---
Author Organization [facility] Address [address] [place] [address] Care Team Providers Care Senior Technical Editor Name Role Phone Rosibel Muse MD Primary Care Provider [phone] Encounter Details Date Type Department Care Team (Late st Contact Info) Description 02/11/2024 External Device Data STL ABSTRACTION Provider, Abstract [...] st Contact Info) Description 08/25/2024 2:00 PM IMAGE ASSEMBLER Office Visit [facility] Oncology and Hematology - [place] [address] [place] [address] [facility] [address] [place] [address] Royal Newell MD [address] [facility] [address] [place] [address] documented as of this encounter Visit Diagnoses Not on filedocumented in this encounter Care Teams Senior Technical Editor Relationship Specialty Start Date End Date Rosibel Muse MD PCP - General Family Practice 05/24/21 05/06/24 documented as of this encounter
--- OUTSIDE RECORDS SUMMARY | 2024-08-17 08:56 | XMS_ITS | Encounter Summary ---
Author Organization [facility] Address [address] [place] [address] Care Team Providers Care Freezer Unloader Name Role Phone Rosibel Muse MD Primary Care Provider [phone] Reason for Visit * Reason Onset Date Comments Change appmt to VV 08/23/2023 Encounter Details Date Type Department Care Team (Late Contact Info) Description 08/23/2023 Telephone [facility] [id number] [place] [address] Az Lau Change appmt to VV Social History Tobacco Use Types Packs/Day Years [...] Telephone Encounter - Az Lau - 08/23/2023 8:47 AM SEAM TAPER MACHINE Change patient Telephone check up to VV. Same time 11:00am TAPER MACHINE documented in this encounter Plan of Treatment Upcoming Encounters Date Type Department Care Team (Late st Contact Info) Description 08/25/2024 2:00 PM SEAM TAPER MACHINE Office Visit [facility] Oncology and Hematology - [place] [address] [place] [address] Royal Newell MD [address] [facility] [address] [place] [address] documented as of this encounter Visit Diagnoses Not on filedocumented in this encounter Care Teams Freezer Unloader Relationship Specialty Start Date End Date Rosibel Muse MD PCP - General Family Practice 05/24/21 05/06/24 documented as of this encounter
--- OUTSIDE RECORDS SUMMARY | 2024-08-17 08:56 | XMS_ITS | Encounter Summary ---
Author Organization [facility] Address [address] [place] [address] Care Team Providers Care Transportation Consultant Name Role Phone Rosibel Muse MD Primary Care Provider [phone] Reason for Visit * Reason Comments Follow Up Whipple Encounter Details Date Type Department Care Team (Late st Contact Info) Description 08/23/2023 11:00 AM LUCERNE FARMER Video Visit [facility] Omar Jaquez [facility] [address] [facility] [address] [place] [address] Edie Arriaga PA-C [address] [facility] [address] [place] [address] Cancer, metastatic to liver (Primary Dx); Primary cancer of ampulla of Vater Social History Tobacco Use Types Packs/Day Years [...] on file documented as of this encounter Progress Notes * Edie Arriaga PA-C - 08/23/2023 10:50 AM CST Images from the original note were not included. HISTORY OF PRESENT ILLNESS Krissy Oneal is a 67 y.o. 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 Unfortunately since her last follow up she was found to have metastatic disease to the liver and radiation therapy was started. She just completed her last treatment earlier this week on 08/20.CT scan on 08/19 showed the left hepatic lobe met has grown in size to 4.7x2.1cm. Interval history 02/20/23January returns today as a routine follow up regarding ampullary carcinoma status post pancreaticoduodenectomy 12 months ago. Reports overall she is doing pretty well. Reports she would really like to get her hernia taken care of but Dr. Novoa's office no longer takes her insurance and she does not know what to do next. Denies nausea, vomiting, abdominal pain, early satiety, weight loss, or change in bowel function. Recent CT scan shows no evidence of recurrence and stability of the lesions of herleft liver. Interval history 08/14/22January returns today as a routine follow-up of ampullary carcinoma status post pancreaticoduodenectomy 6 months ago. Since last visit, she has done well, and all of her wound issues have long since resolved. She did noted increased symptomology of abdominal bloating and gassiness, when she visited medical oncology recently, she was prescribed Creon. She has this medication well, however, and is since stopped it. She does report having daily bowel movements, and is eating well, she has gained weight since last visit. Recent CT scan shows no evidence of recurrence though there are 2 indeterminatelesions of her left liver. Interval history 01/23/22January returns today as a routine follow up for drain removal. Her drain record has demonstrated low output and she has been feeling well. No drainage has occurred for several days from the midline incision. Interval history 01/17/22January returns today as a routine today as a routine post operative visit after recent pylorus preserving pancreaticoduodenectomy. The patient has had multiple episodes of her Prevena not holding suction as well as removing it all together this last weekend. Since then, she has had very little drainage out of her midline incision and states that she overall has been doing very well, and her energy levels as well. Interval history 01/09/22January returns today as a non--scheduled visit after recent hospitalization for pancreaticoduodenectomy. She states that her wound VAC became filled with serous fluid in rapid succession this afternoonand began beeping. On arrival, thin serous fluid was trapped underneath the sponge and after removal of this excess fluid the device held suction adequately. She states she has been doing very well at home has been eating well, and has been walking some without the walker. No reports of fever or chills. No other complaints. Interval history 12/07/21January returns today as a routine follow up after neoadjuvant chemotherapy for ampullary carcinoma. She reports that she has had considerable nausea and vomiting during her treatment and her last dose was October 31. She has felt better since that time. She is very motivated to pursue surgery at thistime and is interested in hearing about the surgery and what to expect. She is accompanied today byher Patrice and her daughter Brittni. HPI Krissy Oneal is a 65 y.o. female recently transferred from an outside hospital for a newly diagnosed mass of the ampulla of Vater. The patient states the relevant history for this began with several months of frequent, watery diarrhea. She reports having several clear bowel movements a day that slowly escalated to roughly 2 weeks ago where she was having multiple stools per hour. She spoke to hersister who recommended she go to the local emergency room. While there, she underwent work-up whichincluded imaging and identified a mass of the duodenum. The patient had a subsequent upper endoscopy which reported a 4 cm adenoma appearing mass at the ampulla. She underwent biopsy at this time, but the results are not back yet. Imaging at that hospital indicated obstruction of the common bile duct with intra and extrahepatic biliary ductal dilatation and the patient does have an elevated bilirubin of 2.5 at this time. In terms of other symptoms, the patient states she has had intermittent abdominal pain, but she thought this was related to a diagnosis of H. pylori which she underwent treatment in the last month. She really has had no other symptoms in terms of nausea and vomiting. She has lost weight over the last 3 months. Surgical history includes what appears to be a vaginal hysterectomy, but she is unsure exactly how they performed the procedure. This was performed for uterine fib roids. REVIEW OF SYSTEMS Review of Systems Constitutional: Negative for appetite change, chills, fatigue, fever and unexpected weight change. HENT: Negative for trouble swallowing and voice change. Respiratory: Negative for chest tightness, cough and shortness of breath. Cardiovascular: Negative for chest pain, leg swelling and palpitations. Gastrointestinal: Negative for abdominal pain, constipation, diarrhea, nausea and vomiting. Past Medical History: Diagnosis Date Allergy Arthritis 1970 Asthma Back pain bulging disc COPD (chronic obstructive pulmonary disease) pt. 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 Psychiatric disorder Wears dentures Past Surgical History: Procedure Laterality Date HX ERCP N/A 05/25/2021 CHOLANGIOPANCREATOGRAPHY RETROGRADE ENDOSCOPIC performed by Omar Gonzalez MD at [facility] HX ERCP 05/2021 at [facility] HX HEART CATHETERIZATION HX HYSTERECTOMY HX PANCREATICODUODENECTOMY N/A 12/29/2021 DIAGNOSTIC LAPAROSCOPY , EXPLORATORY LAPROTOMY PANCREATICODUODENECTOMY (WHIPPLE PROCEDURE) performed by Phil Mejia MD at [facility] OR HX PARTIAL THYROIDECTOMY goiter at age 8 y/o HX PORTACATH PLACEMENT HX SINUS SURGERY x 2 HX SPINAL SURGERY cervical laminectomy HX TUBAL LIGATION MD EDG US EXAM SURGICAL ALTER STOM DUODENUM/JEJUNUM N/A 05/25/2021 ULTRASOUND ENDOSCOPIC performed by Omar Gonzalez MD at [facility] MD ESOPHAGOGASTRODUODENOSCOPY TRANSORAL DIAGNOSTIC N/A 05/25/2021 ESOPHAGOGASTRODUODENOSCOPY performed by Omar Gonzalez MD at [facility] Social History Tobacco Use Smoking status: Former Packs/day: 0.50 Years: 10.00 Additional pack years: 0.00 Total pack years: 5.00 Types: Cigarettes Quit date: 08/03/2014 Years since quittin.0 Smokeless tobacco: Never Vaping Use Vaping Use: Never used Substance Use Topics Alcohol use: Not Currently Drug use: Not Currently Types: Marijuana Comment: Socially Family History Problem Relation Name Age of Onset Cancer Father Kidney Disease Mother Harleen Rizzo Kidney failure Prostate Cancer Brother Prostate Cancer Brother Prostate Cancer Brother Cancer Brother Diabetes Brother Current Outpatient Medications Medication Instructions albuterol sulfate 90 mcg/Actuation inhaler 2 Puffs, Inhalation, EVERY 4 HOURS PRN ALPRAZolam (XANAX) 1 mg, Oral, NIGHTLY PRN amLODIPine (NORVASC) 10 mg, Oral, DAILY budesonide-formoteroL (SYMBICORT) 160-4.5 mcg/actuation HFA Aerosol Inhaler 2 Puffs, Inhalation, TWO TIMES DAILY PRN fluticasone propionate (FLONASE) 50 mcg/spray [place], Suspension nasal inhaler 2 Sprays, Both Nostrils, DAILY PRN hydroCHLOROthiazide 37.5 mg, Oral, DAILY, Takes 1 1/2 tablets iron,carb/vit C/vit B12/folic (IRON 100 PLUS ORAL) 100 mg, Oral, DAILY, liquid losartan (COZAAR) 100 mg, Oral, EVERY 24 HOURS metFORMIN (GLUMETZA) 500 mg Extended Release 24 hour tablet Take 2 tablets every day by oral route. naloxone (NARCAN) 4 mg/spray [place], Non-Aerosol EMERGENCY USE ONLY: Administer 1 spray (4 mg) in one nostril one time. May repeat in alternating nostrils every 2-3 min until responsive or EMS arrives. omeprazole (PRILOSEC) 40 mg, Oral, DAILY ondansetron (ZOFRAN ODT) 4 mg, Oral, EVERY 8 HOURS PRN, Dissolve tablet on top of tongue, then swallow with saliva. You can take 1 tablet 15-30 minutes prior to each radiation treatment. potassium chloride (KLOR-CON) 20 mEq Extended Release tablet TAKE 1 TABLET BY MOUTH DAILY predniSONE (DELTASONE) 50 mg, Oral, SEE ADMIN INSTRUCTIONS, Take 1 tablet 2pm day before CT scan, take 1 tablet at 10pm night before CT scan and take 1 tablet 2 hours before test. Also take Benadryl (50mg) 10pm night before test and 2 hours before test sertraline (ZOLOFT) 50 mg, Oral, DAILY AT BEDTIME simvastatin (ZOCOR) 20 mg, Oral, DAILY AT BEDTIME Vitamin B-12 5,000 mcg, Sublingual, DAILY Allergies Allergen Reactions Iodinated Contrast Media Itching Sulfa (Sulfonamide Antibiotics) Dizziness and Itching Erythromycin Itching Kiwi Rash and Itching Macrolide Antibiotics Itching Naproxen Sodium Itching Nitrofurantoin Itching Itching Penicillins Itching Objective PHYSICAL EXAM Limited due to nature of video visit There were no vitals filed for this visit. Physical Exam Vitals reviewed. Constitutional: General: She is not in acute distress. Appearance: Normal appearance. She is not ill-appearing or toxic-appearing. HENT: Head: Normocephalic and atraumatic. Eyes: General: No scleral icterus. Conjunctiva/sclera: Conjunctivae normal. Pulmonary: Effort: Pulmonary effort is normal. Skin: Coloration: Skin is not jaundiced. Neurological: General: No focal deficit present. Mental Status: She is alert and oriented to person, place, and time. Mental status is at baseline. Psychiatric: Mood and Affect: Mood normal. Behavior: Behavior normal. Thought Content: Thought content normal. Judgment: Judgment normal. IMAGING: ASSESSMENT and PLAN: ICD-10-CM ICD-9-CM 1. Cancer, metastatic to liver C78.7 197.7 2. 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 156.2 67 y.o. female with history of ampullary carcinoma status post pancreaticoduodenectomy in 12/2021 with metastatic liver lesion noted in April 2023 scan (confirmed by biopsy in 06/2023) now statuspost radiation therapy. Recent CT scan from 08/19/2023 shows increase in size of left hepatic lobe met to 4.7cm, otherwise stable findings. Discussed these results with the patient in length today. Also, reviewed findings with Dr. Mejia and no surgical recommendations at this time. Recommend patient follow up with Dr. Chavez (Rad Onc) and Dr. Newell (Med Onc) for consideration of additional therapy.Will reach out to ensure appropriate follow up is scheduled for the patient. All questions were answered to her satisfaction and she is comfortable with the plan. in kind regards, Edie Arriaga PA-C Surgical Oncology and Endocrine Surgery [facility] Patient's identity confirmed yes Patient gave verbal consent to have these services billed to their insurance and expressed understanding that co-insurance and deductible may apply: yes This encounter was completed via two-way synchronous audio and video communication. Total Time: 20 minutes, over 15 of which were spent in direct conversation and the remainder spent in preparation for today's visit. RNE FARMER documented in this encounter Plan of Treatment Upcoming Encounters Date Type Department Care Team (Late st Contact Info) Description 08/25/2024 2:00 PM LUCERNE FARMER Office Visit [facility] Oncology and Hematology - [place] [address] [place] [address] [address] Royal Newell MD [address] [facility] [address] [place] [address] documented as of this encounter Visit Diagnoses Diagnosis Cancer, metastatic to liver- Primary Secondary malignant neoplasm of liver Primary cancer of ampulla of Vater documented in this encounter Care Teams Transportation Consultant Relationship Specialty Start Date End Date Rosibel Muse MD PCP - General Family Practice 05/24/21 05/06/24 documented as of this encounter
--- OUTSIDE RECORDS SUMMARY | 2024-08-17 08:56 | XMS_ITS | Encounter Summary ---
Author Organization [facility] Address [address] [place] [address] Care Team Providers Care Machine Accountant Name Role Phone Rosibel Muse MD Primary Care Provider Encounter Details Date Type Department Care Team (Late st Contact Info) Description 09/30/2023 External Device Data STL ABSTRACTION Provider, Abstract [...] st Contact Info) Description 08/25/2024 2:00 PM AUTOMOTIVE HARDWARE ENGINEER Office Visit [facility] Oncology and Hematology - [place] [address] [place] [address] [facility] [address] [place] [address] Royal Newell MD [address] [facility] [address] [place] [address] documented as of this encounter Visit Diagnoses Not on filedocumented in this encounter Care Teams Machine Accountant Relationship Specialty Start Date End Date Rosibel Muse MD PCP - General Family Practice 05/24/21 05/06/24 documented as of this encounter
--- OUTSIDE RECORDS SUMMARY | 2024-08-17 08:56 | XMS_ITS | Encounter Summary ---
Author Organization [facility] [employer] [facility] Address [address] [place] [address] Care Team Providers Care Director Water And Waste Services Name Role Phone Rosibel Muse MD Primary Care Provider [phone] Reason for Visit * Reason Onset Date Comments Increased Pain 04/28/2024 Encounter Details Date Type Department Care Team (Late st Contact Info) Description 04/28/[address] [facility] Oncology and Hematology - [place] [address] [place] [address] [facility] [address] [place] [address] Royal Newell MD [address] [facility] [address] [place] [address] Increased Pain Social History Tobacco Use Types Packs/Day Years [...] encounter Miscellaneous Notes * Telephone Encounter - Jasper Candi M - 04/28/2024 8:02 AM CDT Patient is aware of recommendations. I have moved her CT scan up to 04/30 and her follow up appointment with Dr. Newell to 05/07. Patient reminded me that she is allergic to contrast. I will send in prednisone for her to take before the procedure. * Telephone Encounter - Candi Hutchinson - 04/28/2024 8:02 AM CDT ----- Message from Dr. Royal Newell sent at 04/27/2024 4:24 PM CDT ----- Regarding: RE: Pain Please move CT scan chest abdomen pelvis anytime now and follow-up with me after that. ----- Message ----- From: Candi Hutchinson Sent: 04/27/2024 3:52 PM CDT To: Royal Newell MD Subject: Pain Patient called and stated that she is having a lot of pain in her left side right under her ribs. She says that it comes and goes but when it comes it feels like a tightness. She is not having any shortness of breath. She was taking the dicyclomine but it does not seem to help anymore. She did takesome tylenol but it really did not relieve any of the pain. Patient would like to know if there is anything else that she can take. Please advise. documented in this encounter Plan of Treatment Upcoming Encounters Date Type Department Care Team (Late st Contact Info) Description 08/25/2024 2:00 PM CASTING MACHINE SERVICE OPERATOR Office Visit [facility] Oncology and Hematology - [place] [address] [place] [address] [place] [id number] Royal Newell MD [address] [facility] [address] [place] [address] documented as of this encounter Visit Diagnoses Diagnosis Contrast media allergy Allergy, unspecified not elsewhere classified documented in this encounter Care Teams Director Water And Waste Services Relationship Specialty Start Date End Date Rosibel Muse MD PCP - General Family Practice 05/24/21 05/06/24 documented as of this encounter
--- OUTSIDE RECORDS SUMMARY | 2024-08-17 08:56 | XMS_ITS | Encounter Summary ---
Author Organization [facility] Address [address] [place] [address] Care Team Providers Care Seamer Panty Hose Name Role Phone Rosibel Muse MD Primary Care Provider [phone] Reason for Visit * Reason Onset Date Comments Advice Only 07/03/2023 Encounter Details Date Type Department Care Team (Late Contact Info) Description 07/03/2023 Telephone [facility] Radiation Therapy [address] [place] [address] Rl Chavez MD [address] [facility] [address] [place] [address] Advice Only Social History Tobacco Use Types Packs/Day Years [...] (Late Contact Info) Description 08/25/2024 2:00 PM CHAR CONVEYOR TENDER CELLAR Office Visit [facility] Oncology and Hematology - [place] [address] [facility] [address] [place] [address] Royal Newell MD [address] [facility] [address] [place] [address] documented as of this encounter Visit Diagnoses Not on filedocumented in this encounter Care Teams Seamer Panty Hose Relationship Specialty Start Date End Date Rosibel Muse MD PCP - General Family Practice 05/24/21 05/06/24 documented as of this encounter
--- OUTSIDE RECORDS SUMMARY | 2024-08-17 08:56 | XMS_ITS | Encounter Summary ---
Author Organization [facility] Address [address] [place] [address] Care Team Providers Care Metal Mine Inspector Name Role Phone Rosibel Muse MD Primary Care Provider [phone] Encounter Details Date Type Department Care Team (Late st Contact Info) Description 08/20/2023 Chart Note [facility] Radiation Therapy [address] [place] [address] Rl Chavez MD [address] [facility] [address] [place] [address] Social History Tobacco Use Types [...] st Contact Info) Description 08/25/2024 2:00 PM HIGHER EDUCATION ADMINISTRATOR Office Visit [facility] Oncology and Hematology - [place] [address] [facility] [address] [place] [address] Royal Newell MD [address] [facility] [address] [place] [address] documented as of this encounter Visit Diagnoses Not on filedocumented in this encounter Care Teams Metal Mine Inspector Relationship Specialty Start Date End Date Rosibel Muse MD PCP - General Family Practice 05/24/21 05/06/24 documented as of this encounter
--- OUTSIDE RECORDS SUMMARY | 2024-08-17 08:57 | XMS_ITS | Encounter Summary ---
Author Organization [facility] Address [address] [place] [address] Care Team Providers Care Tuber Machine Operator Name Role Phone Rosibel Muse MD Primary Care Provider [phone] Encounter Details Date Type Department Care Team (Late st Contact Info) Description 06/11/2023 Chart Note [facility] Radiation Therapy [address] [place] [address] Rl Chavez MD [address] [facility] [address] [place] [address] Social History Tobacco Use Types [...] st Contact Info) Description 08/25/2024 2:00 PM LANGUAGE PATHOLOGIST Office Visit [facility] Oncology and Hematology - [place] [address] [facility] [address] [place] [address] Royal Newell MD [address] [facility] [address] [place] [address] documented as of this encounter Visit Diagnoses Not on filedocumented in this encounter Care Teams Tuber Machine Operator Relationship Specialty Start Date End Date Rosibel Muse MD PCP - General Family Practice 05/24/21 05/06/24 documented as of this encounter
--- OUTSIDE RECORDS SUMMARY | 2024-08-17 08:57 | XMS_ITS | Encounter Summary ---
Author Organization [facility] Address [address] [place] [address] Care Team Providers Care Issuing Operator Name Role Phone Rosibel Muse MD Primary Care Provider [phone] Reason for Referral * Radiation Therapy (Routine) - Closed Specialty Diagnoses / Procedures Referred By Contac t Referred To Contact Diagnoses Ampullary carcinoma Procedures [place] OFFICE/OUTPATIENT ESTABLISHED MOD MDM 30-39 MIN [place] OFFICE/OUTPATIENT NEW MODERATE MDM 45-59 MINUTES Rl Chavez MD [address] [facility] [address] [place] [address] Referral ID Status Reason Start Date Expiration Date V isits Requested Visits Authorized [id number] Closed ST[facility] CTS 06/04/2023 06/03/2024 1 1 Encounter Details Date Type Department Care Team (Late st Contact Info) Description 06/04/2023 4:00 PM CDT Telephone Check Up [facility] Oncology and Hematology - [place] [address] [facility] [address] [place] [address] Royal Newell MD [address] [facility] [address] [place] [address] Ampullary carcinoma (Primary Dx) Social [...] as of this encounter Progress Notes * Royal Newell MD - 06/04/2023 4:54 PM CDT HEMATOLOGY / ONCOLOGY PROGRESS NOTE Patient Identification: Name: Krissy Jaquez White Age: 67 y.o. 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 EGD done on May 22 showed malignant appearing duodenal mass and biopsies were taken. Pathology came back positive for gastritis. [facility] where she had EUS and ERCP done with Dr. Medeiros. 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 Neoadjuvant chemotherapy with modified FOLFIRINOX regimen started 07/11/2021. Received cycle 8/8 onOctober 31, 2021 with 20% dose reduction due to toxicity. Pancreaticoduodenectomy done on December 29, 2021. SUBJECTIVE This is a audio visit with patient to discuss the PET scan. She denies any abdominal pain. No diarrhea and constipation. No other new complaint. Review of system Constitutional: denies fevers, sweats, weight and appetite stable. HEENT: denies sinus congestion, [...] 24 hours: As per nursing note Exam: This is a audio visit ECOG performance status 1 PATH FINAL DIAGNOSIS [...] ALT 33 hemoglobin 12.1 CA 19-9 16 Assessment: Plan: Patient Active Problem List Diagnosis [...] dated May 2021 likely old granulomatous disease. I will refer her to Dr. Chavez for radiation oncology consultation for solitary liver metastasis. Follow-up with me in 2 to 3 months after completion of radiation therapy treatment with repeat imaging studies. Anemia. Continue iron and vitamin B12. 06/04/2023 This encounter was completed via audio-only two way synchronous communication. Patient's identity confirmed yes Patient gave verbal consent to have these services billed to their insurance and expressed understanding that co-insurance and deductible may apply: yes Time spent by the provider delivering the care documented in this encounter 25 minutes. Royal Newell MD This encounter was completed via audio-only two way synchronous communication. Patient's identity confirmed yes Patient gave verbal consent to have these services billed to their insurance and expressed understanding that co-insurance and deductible may apply: yes Time spent by the provider delivering the care documented in this encounter 15 minutes. documented in this encounter Plan of Treatment Upcoming Encounters Date Type Department Care Team (Late st Contact Info) Description 08/25/2024 2:00 PM BUTTER GRADER Office Visit [facility] Oncology and Hematology [facility] [address] [facility] [address] [place] [address] Royal Newell MD [address] [facility] [address] [place] [address] Scheduled Referrals Name Type Priority Associated Diagnoses Orde r Schedule AMB REFERRAL TO RADIATION ONCOLOGY Outpatient Referral Routine Ampullary carcinoma Ordered: 06/04/2023 documented as of this encounter Visit Diagnoses Diagnosis Ampullary carcinoma- Primary Malignant neoplasm of ampulla of Vater documented in this encounter Care Teams Issuing Operator Relationship Specialty Start Date End Date Rosibel Muse MD PCP - General Family Practice 05/24/21 05/06/24 documented as of this encounter
--- OUTSIDE RECORDS SUMMARY | 2024-08-17 08:57 | XMS_ITS | Encounter Summary ---
Author Organization [email or web address] Address [address] [place] [address] Care Team Providers Care Clinical Courier Name Role Phone Rosibel Muse MD Primary Care Provider [phone] Reason for Visit * Reason Onset Date Comments Advice Only 06/28/2023 Encounter Details Date Type Department Care Team (Late st Contact Info) Description 06/28/2023 Telephone [facility] Radiation Therapy [address] [place] [address] Rl Chavez MD [address] [facility] [address] [place] [address] Advice Only Social History Tobacco [...] Telephone Encounter - Rl Chavez MD - 06/28/2023 8:40 AM CST I spoke with her on the phone. I reviewed the results of her liver biopsy confirming metastatic cancer. I told her that we will schedule her for CT/MR simulation ~2 weeks post- biopsy/fiducial placement. This will be the planning session for liver SBRT. Rl Chavez MD Radiation Oncology ERIES ENFORCEMENT OFFICER documented in this encounter Plan of Treatment Upcoming Encounters Date Type Department Care Team (Late st Contact Info) Description 08/25/2024 2:00 PM FISHERIES ENFORCEMENT OFFICER Office Visit [facility] Oncology and Hematology - [place] [address] [facility] [address] [place] [address] Royal Newell MD [address] [facility] [address] [place] [address] documented as of this encounter Visit Diagnoses Not on filedocumented in this encounter Care Teams Clinical Courier Relationship Specialty Start Date End Date Rosibel Muse MD PCP - General Family Practice 05/24/21 05/06/24 documented as of this encounter
--- OUTSIDE RECORDS SUMMARY | 2024-08-17 08:57 | XMS_ITS | Encounter Summary ---
Author Organization [facility] [employer] [facility] Address [address] [place] [address] Care Team Providers Care Microbiology Soil Scientist Name Role Phone Rosibel Muse MD Primary Care Provider Encounter Details Date Type Department Care Team (Late Contact Info) Description 05/15/2023 Orders Only [facility] Oncology and Hematology - [place] [address] [place] [address] Royal Newell MD [address] [address] [place] [address] Social History Tobacco Use Types [...] (Late Contact Info) Description 08/25/2024 2:00 PM NET APPLICATIONS DEVELOPER Office Visit [facility] Oncology and Hematology - [place] [address] [place] [address] Royal Newell MD [address] [place] [address] documented as of this encounter Procedures Procedure Name Priority Date/Time Associated Diagnosis Comments CANCER ANTIGEN 19-9 Routine 05/14/2023 9:35 AM CDT documented in this encounter Results * CANCER ANTIGEN 19-9 (05/14/2023 9:35 AM CDT) Blood Royal Newell MD CHEMISTRY ORDERABLES documented in this encounter Visit Diagnoses Not on filedocumented in this encounter Care Teams Microbiology Soil Scientist Relationship Specialty Start Date End Date Rosibel Muse MD PCP - General Family Practice 05/24/21 05/06/24 documented as of this encounter
--- OUTSIDE RECORDS SUMMARY | 2024-08-17 08:57 | XMS_ITS | Encounter Summary ---
Author Organization [facility] [employer] [facility] Address [address] [place] [address] Care Team Providers Care Blasting Miner Name Role Phone Rosibel Muse MD Primary Care Provider [phone] Encounter Details Date Type Department Care Team (Late Contact Info) Description 05/29/2023 Orders Only [facility] Oncology and Hematology - [place] [address] [place] [address] Royal Newell MD [address] [place] [address] Social History Tobacco Use Types [...] (Late Contact Info) Description 08/25/2024 2:00 PM BORING MILL OPERATOR Office Visit [facility] Oncology and Hematology - [place] [address] [place] [address] Royal Newell MD [address] [place] [address] documented as of this encounter Procedures Procedure Name Priority Date/Time Associated Diagnosis Comments PET BONE IMG W CT SKL BSE MID THG Routine 05/28/2023 12:58 PM CDT documented in this encounter Results * PET BONE IMG W CT SKB MDTH (05/28/2023 12:58 PM CDT) Anatomical Region Laterality Modality Other Royal Newell MD PE ORDERABLES documented in this encounter Visit Diagnoses Not on filedocumented in this encounter Care Teams Blasting Miner Relationship Specialty Start Date End Date Rosibel Muse MD PCP - General Family Practice 05/24/21 05/06/24 documented as of this encounter
--- OUTSIDE RECORDS SUMMARY | 2024-08-17 08:57 | XMS_ITS | Encounter Summary ---
Author Organization [facility] [employer] [facility] Address [address] [place] [address] Care Team Providers Care Distribution A Class Lineman Name Role Phone Rosibel Muse MD Primary Care Provider [phone] Encounter Details Date Type Department Care Team (Late Contact Info) Description 04/01/2023 Orders Only [facility] Oncology and Hematology [place] [address] [place] [address] Royal Newell MD [address] [place] [address] Iron deficiency anemia, unspecified iron deficiency anemia type Social History Tobacco Use Types Packs/Day Years [...] (Late Contact Info) Description 08/25/2024 2:00 PM DONOR TECHNICIAN Office Visit [facility] Oncology and Hematology - [place] [address] [place] [address] Royal Newell MD [address] [place] [address] documented as of this encounter Visit Diagnoses Diagnosis Iron deficiency anemia, unspecified iron deficiency anemia type documented in this encounter Care Teams Distribution A Class Lineman Relationship Specialty Start Date End Date Rosibel Muse MD PCP - General Family Practice 05/24/21 05/06/24 documented as of this encounter
--- OUTSIDE RECORDS SUMMARY | 2024-08-17 08:57 | XMS_ITS | Encounter Summary ---
Author Organization [facility] [employer] [facility] Address [address] [place] [address] Care Team Providers Care Inspector Hot Forgings Name Role Phone Rosibel Muse MD Primary Care Provider Encounter Details Date Type Department Care Team ([facility] Contact Info) Description 03/07/2023 Orders Only [facility] Oncology and Hematology - [place] [address] [place] [address] Bambi Catherine RN Contrast media allergy Social History Tobacco Use [...] Upcoming Encounters Date Type Department Care Team ([facility] Contact Info) Description 08/25/2024 2:00 PM CONSTRUCTION FRAMER Office Visit [facility] Oncology and Hematology - [place] [address] [place] [address] Royal Newell MD [address] [facility] [address] [place] [address] documented as of this encounter Visit Diagnoses Diagnosis Contrast media allergy Allergy, unspecified not elsewhere classified documented in this encounter Care Teams Inspector Hot Forgings Relationship Specialty Start Date End Date Rosibel Muse MD PCP - General Family Practice 05/24/21 05/06/24 documented as of this encounter
--- OUTSIDE RECORDS SUMMARY | 2024-08-17 08:57 | XMS_ITS | Encounter Summary ---
Author Organization [employer] [facility] Address [address] [place] [address] Care Team Providers Care Iron Erector Name Role Phone Rosibel Muse MD Primary Care Provider [phone] Reason for Referral * CT Scan (Routine) - Closed Specialty Diagnoses / Procedures Referred By Contact Referred To Contact Interventional Radiology Diagnoses Cancer, metastatic to liver Procedures CT GUIDED BIOPSY Rl Chavez MD [address] [address] [facility] Interventional Radiology [address] [place] [address] Referral ID Status Reason Start Date Expiration Date Visits Re quested Visits Authorized [id number] Closed 06/17/2023 07/17/2024 1 1 OGRAPHIC PRINTER Encounter Details Date Type Department Care Team (Late st Contact Info) Description 06/17/2023 Orders Only [facility] Radiation Therapy [address] [place] [address] Rl Chavez MD [address] [address] Cancer, metastatic to liver (Primary Dx) Social History Tobacco Use Types [...] st Contact Info) Description 08/25/2024 2:00 PM PHOTOGRAPHIC PRINTER Office Visit [facility] Oncology and Hematology - [place] [address] [facility] [address] [place] [address] Royal Newell MD [address] [facility] [address] [place] [address] documented as of this encounter Results * CT GUIDED BIOPSY (06/26/2023 8:58 AM PHOTOGRAPHIC PRINTER) Anatomical Region Laterality Modality Other, Computed Tomography 06/26/2023 8:29 AM PHOTOGRAPHIC PRINTER Impressions 06/26/2023 4:41 PM PHOTOGRAPHIC PRINTER IMPRESSION: ?? 1. Successful percutaneous placement of intra-abdominal interstitial device for radiation therapy guidance using CT guidance. 2. Successful core needle biopsy of liver using CT guidance. DICTATION LOCATION: Location 1 - [facility] Narrative 06/26/2023 4:41 PM PHOTOGRAPHIC PRINTER PROCEDURES: 1. PERCUTANEOUS PLACEMENT OF INTERSTITIAL DEVICE FOR RADIATION THERAPY GUIDANCE IN LIVER USING CT GUIDANCE 2. CORE NEEDLE BIOPSY OF LIVER USING CT GUIDANCE DATE: 06/26/2023 8:58 AM HISTORY: 67 years-old Female with past medical history of ampullary carcinoma and new FDG avid left hepatic lesion. ANESTHESIA: The procedure was performed with local anesthesia. IR: Darius Max M.D. PROCEDURE: The risks, benefits and alternatives were discussed and informed consent was obtained. Prior to beginning the procedure, [place]pton Protocol was performed to confirm the patient's identity and the planned procedure. Sterile barriers including hand hygiene, sterile gloves, and sterile drape were used. 2% chlorhexidine was used for cutaneous antisepsis. The patient was placed in the supine position. An appropriate biopsy site was selected and marked on the skin. The skin was infiltrated with 1% lidocaine. An 18-gauge device was used. Under intermittent CT guidance, an outer coaxial needle was advanced adjacent to the target and multiple core biopsies were obtained. A gold fiducial interstitial device was subsequently placed through the trocar for radiation therapy guidance. ?? Hemostasis was achieved with manual compression. A sterile dressing was applied. ESTIMATED BLOOD LOSS: 5 cc. FINDINGS: ?? Initial images show a safe percutaneous path to the hypodense left hemiliver lesion. Subsequent images show the biopsy device at the targeted lesion and interstitial device for radiation therapy guidance within the intended target. No CT evidence of complication following the procedure. Procedure Note Himanshu Max MD - 06/26/2023 PROCEDURES: 1. PERCUTANEOUS PLACEMENT OF INTERSTITIAL DEVICE FOR RADIATION THERAPY GUIDANCE IN LIVER USING CT GUIDANCE 2. CORE NEEDLE BIOPSY OF LIVER USING CT GUIDANCE DATE: 06/26/2023 8:58 AM HISTORY: 67 years-old Female with past medical history of ampullary carcinoma and new FDG avid left hepatic lesion. ANESTHESIA: The procedure was performed with local anesthesia. IR: Darius Max M.D. PROCEDURE: The risks, benefits and alternatives were discussed and informed consent was obtained. Prior to beginning the procedure, Upton Protocol was performed to confirm the patient's identity and the planned procedure. Sterile barriers including hand hygiene, sterile gloves, and sterile drape were used. 2% chlorhexidine was used for cutaneous antisepsis. The patient was placed in the supine position. An appropriate biopsy site was selected and marked on the skin. The skin was infiltrated with 1% lidocaine. An 18-gauge device was used. Under intermittent CT guidance, an outer coaxial needle was advanced adjacent to the target and multiple core biopsies were obtained. A gold fiducial interstitial device was subsequently placed through the trocar for radiation therapy guidance. Hemostasis was achieved with manual compression. A sterile dressing was applied. ESTIMATED BLOOD LOSS: 5 cc. FINDINGS: Initial images show a safe percutaneous path to the hypodense left hemiliver lesion. Subsequent images show the biopsy device at the targeted lesion and interstitial device for radiation therapy guidance within the intended target. No CT evidence of complication following the procedure. IMPRESSION: 1. Successful percutaneous placement of intra-abdominal interstitial device for radiation therapy guidance using CT guidance. 2. Successful core needle biopsy of liver using CT guidance. DICTATION LOCATION: Location 1 - [facility] Rl Chavez MD CT ORDERABLES documented in this encounter Visit Diagnoses Diagnosis Cancer, metastatic to liver- Primary Secondary malignant neoplasm of liver Cancer, metastatic to liver Secondary malignant neoplasm of liver documented in this encounter Care Teams Iron Erector Relationship Specialty Start Date End Date Rosibel Muse MD PCP - General Family Practice 05/24/21 05/06/24 documented as of this encounter
--- OUTSIDE RECORDS SUMMARY | 2024-08-17 08:57 | XMS_ITS | Encounter Summary ---
Author Organization [facility] [facility] Address [address] [place] [address] Care Team Providers Care Mail Order Sorter Name Role Phone Rosibel Muse MD Primary Care Provider [phone] Reason for Visit * Reason Comments Follow Up Encounter Details Date Type Department Care Team (Late st Contact Info) Description 05/17/2023 9:00 AM CDT Office Visit [facility] Oncology and Hematology - [place] [address] [place] [address] [address] [place] [address] Royal Newell MD [address] [facility] [address] [place] [address] Ampullary carcinoma (Primary Dx) Social [...] Sign Reading Time Taken Comments Blood Pressure 129/80 05/17/2023 9:00 AM CDT Pulse 74 05/17/2023 9:00 AM CDT Temperature 36.4 ??C (97.5 ??F) 05/17/2023 9:00 AM CD T Respiratory Rate 10 05/17/2023 9:00 AM CDT Oxygen Saturation 100% 05/17/2023 9:00 AM CDT Inhaled Oxygen Concentration - - Weight 71.7 kg (158 lb) 05/17/2023 9:00 AM CDT Height - - Body Mass Index 28.9 02/20/2023 10:31 AM CDT documented in this encounter Progress Notes * Royal Newell MD - 05/17/2023 9:39 AM CDT HEMATOLOGY / ONCOLOGY PROGRESS NOTE Patient [...] taken. Pathology came back positive for gastritis. [facility] where she had EUS and ERCP done with Dr. Medeiros. 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 Neoadjuvant chemotherapy with modified FOLFIRINOX regimen started 07/11/2021. Received cycle 8/8 onOctober 31, 2021 with 20% dose reduction due to toxicity. Pancreaticoduodenectomy done on December 29, 2021. SUBJECTIVE Patient came to the office for follow-up visit. She has some lower abdominal discomfort likely secondary to hernia. Denies any diarrhea and constipation. No melena hematochezia. Weight and appetite stable. No other new complaints. Review of system [...] rashes or lesions Lymph nodes: No lymphadenopathy Neuro: No obvious focal deficit Exam as above ECOG performance status 1 [...] of malignancy. Labs including tumor marker stable. Clinically she is not much symptomatic other than lower abdominal pain which is likely secondary to hernia. CT chest abdomen pelvis done on May 10 showed newand enlarging bilateral pulmonary nodules and left hepatic lobe mass concerning for metastatic disease progression. We will order PET scan now. Follow-up with me on video visit in 2 weeks to discuss findings and further recommendations. Anemia. Hemoglobin stable. Continue vitamin B12 and iron supplements. 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
--- OUTSIDE RECORDS SUMMARY | 2024-08-17 08:57 | XMS_ITS | Encounter Summary ---
Author Organization [employer] Address [address] [place] [address] Care Team Providers Care Retail Department Manager Name Role Phone Rosibel Muse MD Primary Care Provider [phone] Reason for Referral * CT Scan (Routine) - Closed Specialty Diagnoses / Procedures Referred By Contact Referred To Contact Interventional Radiology Diagnoses Cancer, metastatic to liver Procedures CT GUIDED BIOPSY Rl Chavez MD [address] [place] [id number] [place] [address] [facility] Interventional Radiology [address] [place] [address] Referral ID Status Reason Start Date Expiration Date Visits Re quested Visits Authorized [id number] Closed 06/17/2023 07/17/2024 1 1 TRUCTION PROJECT ADMINISTRATOR Reason for Visit * Auth/Cert (Routine) Specialty Diagnoses / Procedures Referred By Contgabriella t Referred To Contact General Surgery Diagnoses Cancer, metastatic to liver Procedures CT GUIDED BIOPSY Rl Chavez MD [address] [place] [id number] [place] [address] [facility] Care Int Unit [place] [address] [place] [address] Referral ID Status Reason Start Date Expiration Date Visits Re quested Visits Authorized [id number] 1 1 Encounter Details Date Type Department Care Team (Latest Contact Info) Description 06/26/2023 6:08 AM CONSTRUCTION PROJECT ADMINISTRATOR - 06/26/2023 12:46 PM CONSTRUCTION PROJECT ADMINISTRATOR Hospital Encounter [facility] Interventional Unit [place] [address] [place] [place] [address] Rl Chavez MD [address] [place] [address] 1, [facility] [place], [facility] Ct Cancer, metastatic to liver Discharge Disposition: Home or Self Care Social [...] Sign Reading Time Taken Comments Blood Pressure 124/80 06/26/2023 11:00 AM CONSTRUCTION PROJECT ADMINISTRATOR Pulse 64 06/26/2023 11:00 AM CONSTRUCTION PROJECT ADMINISTRATOR Temperature 36.3 ??C (97.4 ??F) 06/26/2023 6:39 AM CS T Respiratory Rate 18 06/26/2023 8:22 AM CONSTRUCTION PROJECT ADMINISTRATOR Oxygen Saturation 97% 06/26/2023 11:00 AM CONSTRUCTION PROJECT ADMINISTRATOR Inhaled Oxygen Concentration - - Weight 72.1 kg (159 lb) 06/26/2023 6:39 AM CONSTRUCTION PROJECT ADMINISTRATOR Height - - Body Mass Index 29.08 02/20/2023 10:31 AM CDT documented in this encounter Discharge Instructions * Discharge Instructions* Lionel Stubbs RN - 06/26/2023 9:00 AM CONSTRUCTION PROJECT ADMINISTRATOR [facility] Percutaneous Biopsy: What to Expect at Home Your Recovery Percutaneous biopsy is a procedure to take a tiny sample (biopsy) of your tissue. Percutaneous (say cvk-skb-HKM-millie-us) means through the skin. The procedure is also called aspiration biopsy or fine-needle aspiration. The tissue sample is looked at under a microscope. Your doctor can look for infection or other problems. You may have some pain where the biopsy needle entered your skin (the puncture site). You may also have what is called referred pain. It is caused by pain traveling along a nerve near the biopsy site. The referred pain usually lasts less than 12 hours. You may have a small amount of bleeding from the puncture site. You will need to take it easy at home for 1 or 2 days after the procedure. You will probably be able to return to work and most of your usual activities after that. This care sheet gives you a general idea about how long it will take for you to recover. But each person recovers at a different pace. Follow the steps below to get better as quickly as possible. How can you care for yourself at home? Activity Rest when you feel tired. Getting enough sleep will help you recover. Try to walk each day. Start by walking a little more than you did the day before. Bit by bit, increase the amount you walk. Walking boosts blood flow and helps prevent pneumonia and constipation. Avoid exercises that use your belly muscles and strenuous activities, such as bicycle riding, jogging, weight lifting, or aerobic exercise, for 1 week or until your doctor says it is okay. Ask your doctor when you can drive again. You will probably need to take 1 or 2 days off from work. It depends on the type of work you do andhow you feel. You may shower 48 hours after the procedure, if your doctor says it is okay. Pat the puncture site dry. Do not take a bath for the first week, or until your doctor tells you it is okay. Diet You can eat your normal diet. If your stomach is upset, try bland, low-fat foods like plain rice, broiled chicken, toast, and yogurt. Drink plenty of fluids (unless your doctor tells you not to). Medicines This document includes your current and historical medications prescribed by your physician(s). Continue to take your current medicines and any new medications exactly as prescribed. Call your doctorwho prescribed the medication if you have any questions or if you think you are having a problem with your medicine. Take pain medicines exactly as directed. If the doctor gave you a prescription medicine for pain, take it as prescribed. If you are not taking a prescription pain medicine, take an rmmz-qyz-aotegak medicine that your doctor recommends. Read and follow all instructions on the label. Do not take aspirin, ibuprofen (Advil, Motrin), naproxen (Aleve), or other nonsteroidal anti-inflammatory drugs (NSAIDs) unless your doctor says it is okay. Do not take two or more pain medicines at the same time unless the doctor told you to. Many pain medicines have acetaminophen, which is Tylenol. Too much acetaminophen (Tylenol) can be harmful. If you think your pain medicine is making you sick to your stomach: Take your medicine after meals (unless your doctor has told you not to). Ask your doctor for a different kind of pain medicine. Care of the puncture site Keep a bandage over the puncture site for the first 1 or 2 days. Follow-up care is a grove part of your treatment and safety. Be sure to make and go to all appointments, and call your doctor if you are having problems. It???s also a good idea to know your test results and keep a list of the medicines you take. When should you call for help? Call 911 anytime you think you may need emergency care. For example, call if: You pass out (lose consciousness). You have severe trouble breathing. You have sudden chest pain and shortness of breath, or you cough up blood. You have severe pain in your chest, shoulder, or belly. Call your doctor now or seek immediate medical care if: You have new or worse shortness of breath. Bright red blood has soaked through the bandage over the puncture site. You have pain that does not get better after you take your pain medicine. You are sick to your stomach or cannot keep fluids down. You have a fever, chills, or body aches. You have signs of infection, such as: Increased pain, swelling, warmth, or redness. Red streaks leading from the incision. Pus draining from the incision. Swollen lymph nodes in your neck, armpits, or groin. A fever. You have new or worse pain at the puncture site. You have new or worse belly swelling or bloating. You have trouble passing urine or stool. Your stools are black and tarlike or have streaks of blood. You have pale-colored stools along with dark urine and itching. Watch closely for changes in your health, and be sure to contact your doctor if you have any problems. TRUCTION PROJECT ADMINISTRATOR documented in this encounter Medications at Time of Discharge Medication Sig Dispensed Refills Start Date End Date metFORMIN (GLUMETZA) 500 mg Extended Release 24 hour tablet Take 2 tablets every day by oral route. 04/25/2023 losartan (COZAAR) 100 mg tablet Take 100 mg by mouth every 24 hours. naloxone (NARCAN) 4 mg/spray [place], Non-Aerosol EMERGENCY USE ONLY: Administer 1 spray [...] for Anxiety. fluticasone propionate (FLONASE) 50 mcg/spray [place], Suspension nasal inhaler Administer 2 Sprays in [...] mouth see administration instructions. Take 1 tablet 12 hours before test, 6 hours before test and 1 hour before test. 3 Tablet 03/07/2023 08/13/2023 potassium chloride (KLOR-CON) 20 mEq Extended Release tablet TAKE 1 TABLET BY MOUTH DAILY 100 Tablet 2 01/08/2023 10/15/2023 documented as of this encounter Progress Notes * Lionel Stubbs RN - 06/26/2023 9:03 AM CST Procedure completed. Pressure held & dressing applied by RN. Specimen collected/labeled and sent to lab. Pt transferred to bed. Portable monitor applied. Pt transported to [facility] Report given to [facility] RN. TRUCTION PROJECT ADMINISTRATOR * Lionel Stubbs RN - 06/26/2023 8:00 AM CST In [facility] to see patient. Pt's history, meds, allergies, labs, NPO status & order reviewed. Pt's family at bedside. Dr Max in to explain procedure to pt. Informed consent obtained. Pt transportedto IPCT1 . Pt transferred to procedure table. Monitors applied.Outer Diameter Grinder Tool scan started TRUCTION PROJECT ADMINISTRATOR documented in this encounter H&P Notes * Himanshu Max MD - 06/26/2023 8:30 AM CST INTERVENTIONAL RADIOLOGY HISTORY & PHYSICAL / PRE-PROCEDURE NOTE Chief Complaint Liver lesion History of Present Illness Krissy M Jm is a 67 y.o. female with liver lesion. Past Medical History: Diagnosis Date Allergy Arthritis 1971 Asthma Back pain bulging disc COPD (chronic [...] ENDOSCOPIC performed by Omar Gonzalez MD at [facility] GI LAB HX ERCP 05/2021 at [facility] HX HEART CATHETERIZATION HX HYSTERECTOMY HX PANCREATICODUODENECTOMY N/A 12/29/2021 DIAGNOSTIC LAPAROSCOPY , EXPLORATORY LAPROTOMY PANCREATICODUODENECTOMY (WHIPPLE PROCEDURE) performed by Phil Mejia MD at [facility] OR HX PARTIAL THYROIDECTOMY goiter at age 8 y/o HX PORTACATH PLACEMENT HX SINUS SURGERY x 2 HX SPINAL SURGERY cervical laminectomy HX TUBAL LIGATION AR EDG US EXAM SURGICAL ALTER STOM DUODENUM/JEJUNUM N/A 05/25/2021 ULTRASOUND ENDOSCOPIC performed by Omar Gonzalez MD at [facility] GI LAB AR ESOPHAGOGASTRODUODENOSCOPY TRANSORAL DIAGNOSTIC N/A 05/25/2021 ESOPHAGOGASTRODUODENOSCOPY performed by Omar Gonzalez MD at [facility] GI LAB Medications Prior to Admission Medication Sig Dispense Refill Last Dose metFORMIN (GLUMETZA) 500 mg Extended Release 24 hour tablet Take 2 tablets every day by oral route.06/25/2023 potassium chloride (KLOR-CON) 20 mEq Extended Release tablet TAKE 1 TABLET BY MOUTH DAILY 100 Tablet 2 06/25/2023 cyanocobalamin, vitamin B-12, (Vitamin B-12) 5,000 mcg/mL Drops Place 5,000 mcg under tongue daily.06/25/2023 iron,carb/vit C/vit B12/folic (IRON 100 PLUS ORAL) Take 100 mg by mouth daily. liquid 06/25/2023 amLODIPine (NORVASC) 5 mg tablet Take 10 mg by mouth daily. 06/25/2023 ALPRAZolam (XANAX) 1 mg tablet Take 1 mg by mouth nightly as needed for Anxiety. 06/25/2023 fluticasone propionate (FLONASE) 50 mcg/spray [place], Suspension nasal inhaler Administer 2 Sprays in each nostril 1 time daily as needed. Past Month hydroCHLOROthiazide 25 mg tablet Take 37.5 mg by mouth daily. Takes 1 1/2 tablets 06/25/2023 albuterol sulfate 90 mcg/Actuation inhaler Take 2 Puffs by inhalation every 4 hours as needed for Shortness of Breath. Past Month simvastatin (ZOCOR) 20 mg tablet Take 20 mg by mouth daily at bedtime. 06/25/2023 sertraline (ZOLOFT) 50 mg tablet Take 50 mg by mouth daily at bedtime. 06/25/2023 budesonide-formoteroL (SYMBICORT) 160-4.5 mcg/actuation HFA Aerosol Inhaler Take 2 Puffs by inhalation 2 times daily as needed. Past Month predniSONE (DELTASONE) 50 mg tablet Take 1 Tablet (50 mg) by mouth see administration instructions.Take 1 tablet 12 hours before test, 6 hours before test and 1 hour before test. 3 Tablet 0 > Month losartan (COZAAR) 100 mg tablet Take 100 mg by mouth every 24 hours. naloxone (NARCAN) 4 mg/spray [place], Non-Aerosol EMERGENCY USE ONLY: Administer 1 spray (4 mg) in one nostril one time. May repeat in alternating nostrils every 2-3 min until responsive or EMS arrives. 2 Each 3 Allergies Allergen Reactions Iodinated Contrast Media Itching Sulfa (Sulfonamide Antibiotics) Dizziness and Itching Erythromycin Itching Kiwi Rash and Itching Macrolide Antibiotics Itching Naproxen Sodium Itching Nitrofurantoin Itching Itching Penicillins Itching Social History Tobacco Use Smoking status: Former Packs/day: 0.50 Years: 10.00 Additional pack years: 0.00 Total pack years: 5.00 Types: Cigarettes Quit date: 08/03/2014 Years since quittin.9 Smokeless tobacco: Never Substance Use Topics Alcohol use: Not Currently Family History Problem Relation Name Age of Onset Cancer Father Kidney Disease Mother Harleen Rizzo Kidney failure Prostate Cancer Brother Prostate Cancer Brother Prostate Cancer Brother Cancer Brother Diabetes Brother Patient Vitals for the past 8 hrs: BP Temp Pulse Resp SpO2 Weight 06/26/23 0822 139/82 -- 71 18 100 % -- 06/26/23 0639 128/80 97.4 ??F (36.3 ??C) 72 18 98 % 72.1 kg (159 lb) Lab Results Component Value Date PT 12.9 06/26/2023 INR 1.0 06/26/2023 PLT 237 06/26/2023 WBC 6.8 06/26/2023 HGB 11.1 (L) 06/26/2023 AST 10 01/03/2022 ALT 15 01/03/2022 ALKPHOS 79 01/03/2022 BILITOTAL 0.2 01/03/2022 CREAT 0.70 01/08/2022 Imaging I reviewed relevant available imaging studies. Patient Exam Gen: NAD, alert and oriented Resp: Non-labored respirations, no cyanosis CV: regular rate Neuro: NFD Assessment / Plan Krissy Oneal is a 67 y.o. female with liver lesion. Plan for image guided biopsy and fiducial placement. The alternatives, benefits, and risks (including but not limited to infection, bleeding, and organ damage) of the procedure were discussed with the patient and informed consent was obtained according to protocol after the patient expressed the wish to proceed with the procedure. No sedation will administered by the interventional radiology team. TRUCTION PROJECT ADMINISTRATOR documented in this encounter Plan of Treatment Upcoming Encounters Date Type Department Care Team (Late st Contact Info) Description 08/25/2024 2:00 PM CONSTRUCTION PROJECT ADMINISTRATOR Office Visit [facility] Oncology and Hematology - [place] [address] [facility] [address] [place] [address] Royal Newell MD [address] [facility] [facility] [address] [place] [address] documented as of this encounter Procedures Procedure Name Priority Date/Time Associated Diagnosis Comments CT GUIDED BIOPSY Routine 06/26/2023 8:58 AM CONSTRUCTION PROJECT ADMINISTRATOR Cancer, metastatic to liver PATHOLOGY Pathology 06/26/2023 8:55 AM CONSTRUCTION PROJECT ADMINISTRATOR CBC WITH DIFFERENTIAL Stat 06/26/2023 6:57 AM CONSTRUCTION PROJECT ADMINISTRATOR PROTIME-INR Stat 06/26/2023 6:57 AM CONSTRUCTION PROJECT ADMINISTRATOR documented in this encounter Results * CT GUIDED BIOPSY (06/26/2023 8:58 AM CONSTRUCTION PROJECT ADMINISTRATOR) Anatomical Region Laterality Modality Other, Computed Tomography 06/26/2023 8:29 AM CONSTRUCTION PROJECT ADMINISTRATOR Impressions 06/26/2023 4:41 PM CONSTRUCTION PROJECT ADMINISTRATOR IMPRESSION: ?? 1. Successful percutaneous placement of intra-abdominal interstitial device for radiation therapy guidance using CT guidance. 2. Successful core needle biopsy of liver using CT guidance. DICTATION LOCATION: Location 1 - [facility] Narrative 06/26/2023 4:41 PM CONSTRUCTION PROJECT ADMINISTRATOR PROCEDURES: 1. PERCUTANEOUS PLACEMENT OF INTERSTITIAL DEVICE [...] was obtained. Prior to beginning the procedure, [place] Protocol was performed to confirm the patient's [...] was obtained. Prior to beginning the procedure, [place]orn Protocol was performed to confirm the patient's [...] CT guidance. DICTATION LOCATION: Location 1 - [facility] Rl Chavez MD CT ORDERABLES * PATHOLOGY (06/26/2023 8:55 AM CONSTRUCTION PROJECT ADMINISTRATOR) CASE REPORT Surgical Pathology Report ? Case: [id number] ? Authorizing Provider: ??Himanshu Max MD Collected: ? 06/26/2023 08:55 AM ? Ordering Location: ? [facility] Amb ? Received: ?06/26/2023 01:53 PM ? Care Interventional Unit ? North ? Pathologist: ? Taiwo Wynn DO ? Specimen: ?Liver, liver mass biopsy ? 3 5:59 PM [facility] [employer] [facility] FINAL DIAGNOSIS Liver, mass, core biopsy: - Metastatic adenocarcinoma, consistent with ampullary origin. 3 5:59 PM [facility] [employer] [facility] S DESCRIPTION Received in one container labeled Krissy M White and liver mass biopsy are more than 10 pale-cuello fragmented tissue cores ranging from 0.1 to 0.7 cm in greatest dimension. Entirely submitted in cassettes labeled A1 and A2. SMB 3 5:59 PM [facility] [employer] [facility] MICROSCOPIC DESCRIPTION The slides are labeled [id number] and Krissy Oneal. Sections of the liver mass biopsy show fragmented cores of liver parenchyma involved by metastatic adenocarcinoma. The tumor is composed of architecturally complex glands lined by malignant epithelial cells. There is significant nuclear pleomorphism, and scattered mitotic figures are noted. Areas of necrosis are present. Admixed with the tumor cells there are collections of extracellular mucinous material admixed with inflammatory debris. Areas of fibrosis are noted. A small amount of benign background liver parenchyma with areas of atrophy are present. The tumor cells display strong positive staining for CK7, CK20 and CDX2. The morphology and immunophenotype are nonspecific, but are compatible with a metastatic adenocarcinoma of ampullary origin given the patient's history. 3 5:59 PM [facility] [employer] [facility] OPERATIVE PROCEDURE Liver mass biopsy 3 5:59 PM [facility] CLINICAL INFORMATION Liver mass biopsy 3 5:59 PM CONSTRUCTION PROJECT ADMINISTRATOR [facility] COMMENT Special stain, immunohistochemical, and/or in situ hybridization results are interpreted with controls that demonstrate appropriate staining reactions. Note on use of immunohistochemistry reagents and in situ hybridization probes: These tests were developed and their performance characteristics determined by [facility], Department of Laboratory Medicine. It has not been cleared or approved by the U.S. Food and Drug Administration. The FDA has determined that such clearance or approval is not necessary. The test is used for clinical purposes. It should not be regarded as investigational or for research. This laboratory is certified to perform high complexity testing. Frozen section/operating room consultation, gross examination and dissection, and case sign out may have been performed in part or completely in the following laboratories: [facility], CLIA #[id number] [address] [place] [address] [facility], [place] #[id number] [address] [place] [address] [facility]/[place], [place] #[id number] [address] [place] [address] This report was created with the [employer] voice-activated dictation system. Inherent to this system is the possibility of syntax, grammar, punctuation and other errors that could impact the interpretation of the report. If there are interpretative questions about aspects of this report, please contact the performing pathologist. 3 5:59 PM CONSTRUCTION PROJECT ADMINISTRATOR [facility] Tissue ENTIRE LIVER / Unknown Collection / Unknown 06/26/2023 8:55 AM CONSTRUCTION PROJECT ADMINISTRATOR 06/26/2023 1:53 PM CONSTRUCTION PROJECT ADMINISTRATOR Comment:Liver mass biopsy Himanshu Max MD PATHOLOGY/CYTOL OGY ORDERABLES [facility] CLIA# [id number] [facility] [place] [address] * PROTIME-INR (06/26/2023 6:57 AM CONSTRUCTION PROJECT ADMINISTRATOR) PROTIME 12.9 12.7 - 15.1 Seconds 06/26/2023 7:23 AM [facility] SERVICES - [facility] INR 1.0 0.9 - 1.1 06/26/2023 7:23 AM [facility] [employer] [facility] - . [facility] Blood Venipuncture / Unknown 06/26/2023 6:57 AM CONSTRUCTION PROJECT ADMINISTRATOR 06/26/2023 7:04 AM CONSTRUCTION PROJECT ADMINISTRATOR Narrative [facility]ORY [facility] - . [place] - 06/26/2023 7:23 AM CONSTRUCTION PROJECT ADMINISTRATOR INR Therapeutic Range: Adult: ?? 2.0 - 3.0 for pulmonary embolism or prophylaxis against venous ?thrombosis or systemic embolization. 2.0 - 3.0 for patients with tissue heart valves. 2.5 - 3.5 for patients with mechanical heart valves or post DE. Pediatric ??(12 years and under): 1.5 - 3.0 Although the target range in children is not well established, ?INR values of 1.5 - 3.0 are recommended for most patients. ?Higher values have been used in children with prosthetic ?cardiac valves and hereditary clotting disorders. (<3 days) therapeutic ranges have not been established. Rl Chavez MD HEMATOLOGY ORDERABLE S [facility] [employer] [facility]# [id number] [address] [address] [phone] * (ABNORMAL) CBC WITH DIFFERENTIAL (06/26/2023 6:57 AM CONSTRUCTION PROJECT ADMINISTRATOR) [facility] WBC 6.8 4.0 - 9.8 K/uL 06/26/2023 7:13 AM [facility] - [facility] RBC 4.09 3.90 - 4.90 M/uL 06/26/2023 7:13 AM [facility] LABORATORY [facility] - [facility] HEMOGLOBIN 11.1(L) 11.8 - 14.8 g/dL 06/26/2023 7:13 AM [facility] LABORATORY [facility] - [facility] HEMATOCRIT 34.6(L) 35.5 - 44.0 % 06/26/2023 7:13 AM CONSTRUCTION PROJECT ADMINISTRATOR [employer] MCV 84.6 82.0 - 99.0 fL 06/26/2023 7:13 AM CONSTRUCTION PROJECT ADMINISTRATOR [employer] MCH 27.1(L) 27.2 - 32.6 pg 06/26/2023 7:13 AM CONSTRUCTION PROJECT ADMINISTRATOR [employer] MCHC 32.1 31.5 - 35.5 g/dL 06/26/2023 7:13 AM CONSTRUCTION PROJECT ADMINISTRATOR [employer] RDW 13.7 11.5 - 14.5 % 06/26/2023 7:13 AM CONSTRUCTION PROJECT ADMINISTRATOR [employer] RDW-STDEV 41.9 37.1 - 48.7 fL 06/26/2023 7:13 AM CONSTRUCTION PROJECT ADMINISTRATOR [employer] PLATELETS 237 140 - 350 K/uL 06/26/2023 7:13 AM CONSTRUCTION PROJECT ADMINISTRATOR [employer] MPV 9.2(L) 9.3 - 12.4 fL 06/26/2023 7:13 AM CONSTRUCTION PROJECT ADMINISTRATOR [employer] NEUTROPHILS 50 % 06/26/2023 7:13 AM CONSTRUCTION PROJECT ADMINISTRATOR [employer] LYMPHOCYTES 41 % 06/26/2023 7:13 AM CONSTRUCTION PROJECT ADMINISTRATOR [employer] MONOCYTES 6 % 06/26/2023 7:13 AM CONSTRUCTION PROJECT ADMINISTRATOR [employer] EOSINOPHILS 2 % 06/26/2023 7:13 AM CONSTRUCTION PROJECT ADMINISTRATOR [employer] BASOPHILS 1 % 06/26/2023 7:13 AM CONSTRUCTION PROJECT ADMINISTRATOR [employer] IMMATURE GRANULOCYTES 0 % 06/26/2023 7:13 AM CONSTRUCTION PROJECT ADMINISTRATOR [employer] NEUTROPHIL ABSOLUTE 3.36 1.90 - 7.00 K/uL 06/26/2023 7:13 AM CONSTRUCTION PROJECT ADMINISTRATOR [employer] LYMPHOCYTE ABSOLUTE 2.79 0.70 - 4.50 K/uL 06/26/2023 7:13 AM CONSTRUCTION PROJECT ADMINISTRATOR [employer] MONOCYTE ABSOLUTE 0.43 0.10 - 1.30 K/uL 06/26/2023 7:13 AM CONSTRUCTION PROJECT ADMINISTRATOR [employer] - [facility] EOSINOPHIL ABSOLUTE 0.14 0.00 - 0.70 K/uL 06/26/2023 7:13 AM CONSTRUCTION PROJECT ADMINISTRATOR [facility] - [facility] BASOPHILS ABSOLUTE 0.04 0.00 - 0.20 K/uL 06/26/2023 7:13 AM CONSTRUCTION PROJECT ADMINISTRATOR [facility] - . [facility] IMMATURE GRANULOCYTES ABSOLUTE 0.02 0.00 - 0.03 K/uL 06/26/2023 7:13 AM CONSTRUCTION PROJECT ADMINISTRATOR [facility] - [facility] Blood Venipuncture / Unknown 06/26/2023 6:57 AM CONSTRUCTION PROJECT ADMINISTRATOR 06/26/2023 7:04 AM CONSTRUCTION PROJECT ADMINISTRATOR Rl Chavez MD HEMATOLOGY ORDERABLE S [facility] CLIA# [id number] [address] [place] [address] documented in this encounter Visit Diagnoses Diagnosis Cancer, metastatic to liver Secondary malignant neoplasm of liver documented in this encounter Administered Medications Inactive Administered Medications - up to 3 most recent administrations Medication Order MAR Action Action Date Dose Rate Site fentaNYL PF (SUBLIMAZE) 50 mcg/mL injection 50 mcg 50 mcg, IV, INTRA-PROCEDURE EVERY 3 MINUTES PRN, Starting on Sat06/26/23 at 0846, Until Sat06/26/23 at 1456, Pain (See admin instructions), Routine, Intra-Procedure Given 06/26/2023 8:43 AM CONSTRUCTION PROJECT ADMINISTRATOR 50 mcg heparin, porcine (pf) 10 unit/mL IV syringe 50-150 Units 50-150 Units, IV, SEE ADMIN INSTRUCTIONS, Starting on Sat06/26/23 at 0834, Until Sat06/26/23 at 1456, Routine Given 06/26/2023 11:53 AM CONSTRUCTION PROJECT ADMINISTRATOR 50 Units sodium chloride flush injection 10-30 mL 10-30 mL, IV, SEE ADMIN INSTRUCTIONS, Starting on Sat06/26/23 at 0834, Until Sat06/26/23 at 1456, Routine Given 06/26/2023 11:53 AM CONSTRUCTION PROJECT ADMINISTRATOR 10 mL documented in this encounter Active and Recently Administered Medications Times are shown in CONSTRUCTION PROJECT ADMINISTRATOR. Scheduled Medication Order 06/24/2023 06/25/2023 06/26/2023 heparin, porcine (pf) 10 unit/mL IV syringe 50-150 Units 50-150 Units, IV, SEE ADMIN INSTRUCTIONS, Starting on Sat06/26/23 at 0834, Until Sat06/26/23 at 1456, Routine 1153 (Given - Provid er: Romina Ca RN) sodium chloride flush injection 10-30 mL 10-30 mL, IV, SEE ADMIN INSTRUCTIONS, Starting on Sat06/26/23 at 0834, Until Sat06/26/23 at 1456, Routine 1153 (Given - Provid er: Romina Ca RN) PRN Medication Order 06/24/2023 06/25/2023 06/26/2023 fentaNYL PF (SUBLIMAZE) 50 mcg/mL injection 50 mcg 50 mcg, IV, INTRA-PROCEDURE EVERY 3 MINUTES PRN, Starting on Sat06/26/23 at 0846, Until Sat06/26/23 at 1456, Pain (See admin instructions), Routine, Intra-Procedure 0843 (Given - Provid er: Lionel Stubbs RN) documented in this encounter Care Teams Retail Department Manager Relationship Specialty Start Date End Date Rosibel Muse MD PCP - General Family Practice 05/24/21 05/06/24 documented as of this encounter
--- OUTSIDE RECORDS SUMMARY | 2024-08-17 08:57 | XMS_ITS | Encounter Summary ---
Author Organization [facility] Address [address] [place] [address] Care Team Providers Care Supervisor Powdered Sugar Name Role Phone Rosibel Muse MD Primary Care Provider [phone] Encounter Details Date Type Department Care Team (Late st Contact Info) Description 06/27/2023 External Device Data STL ABSTRACTION Provider, Abstract [...] st Contact Info) Description 08/25/2024 2:00 PM DESIGN ENGINEER Office Visit [facility] Oncology and Hematology - [place] [address] [place] [address] [facility] [address] [place] [address] Royal Newell MD [address] [facility] [address] [place] [address] documented as of this encounter Visit Diagnoses Not on filedocumented in this encounter Care Teams Supervisor Powdered Sugar Relationship Specialty Start Date End Date Rosibel Muse MD PCP - General Family Practice 05/24/21 05/06/24 documented as of this encounter
--- OUTSIDE RECORDS SUMMARY | 2024-08-17 08:57 | XMS_ITS | Encounter Summary ---
Author Organization [facility] Built In [facility] Address [address] [place] [address] Care Team Providers Care Card Decorator Name Role Phone Rosibel Muse MD Primary Care Provider [phone] Encounter Details Date Type Department Care Team (Late Contact Info) Description 03/18/2023 Orders Only [facility] Oncology and Hematology [place] [address] [place] [address] Royal Newell MD [address] [place] [address] Iron deficiency anemia, unspecified iron deficiency [...] (Late Contact Info) Description 08/25/2024 2:00 PM CURATOR MEDICAL MUSEUM Office Visit [facility] Oncology and Hematology - [place] [address] [place] [address] Royal Newell MD [address] [place] [address] documented as of this encounter Visit Diagnoses Diagnosis Iron deficiency anemia, unspecified iron deficiency anemia type documented in this encounter Care Teams Card Decorator Relationship Specialty Start Date End Date Rosibel Muse MD PCP - General Family Practice 05/24/21 05/06/24 documented as of this encounter
--- OUTSIDE RECORDS SUMMARY | 2024-08-17 08:57 | XMS_ITS | Encounter Summary ---
Author Organization [facility] [facility] Address [address] [place] [address] Care Team Providers Care Cash Register Balancer Name Role Phone Rosibel Muse MD Primary Care Provider [phone] Encounter Details Date Type Department Care Team (Late Contact Info) Description 05/13/2023 Orders Only [facility] Oncology and Hematology - [place] [address] [place] [address] Royal Newell MD [address] [place] [address] Social History Tobacco Use Types [...] (Late Contact Info) Description 08/25/2024 2:00 PM PRODUCT MARKETING INTERN Office Visit [facility] Oncology and Hematology - [place] [address] [place] [address] Royal Newell MD [address] [place] [address] documented as of this encounter Procedures Procedure Name Priority Date/Time Associated Diagnosis Comments COMPREHENSIVE METABOLIC PANEL Routine 05/10/2023 10:[address] CHEST ABDOMEN PELVIS W CONT Routine 05/10/2023 10:24 AM CDT documented in this encounter Results * COMPREHENSIVE METABOLIC PANEL (05/10/2023 10:42 AM CDT) Blood Royal Newell MD CHEMISTRY ORDERABLES * CT CHEST ABDOMEN PELVIS W CONT (05/10/2023 10:24 AM CDT) Anatomical Region Laterality Modality Chest Other Royal Newell MD CT ORDERABLES documented in this encounter Visit Diagnoses Not on filedocumented in this encounter Care Teams Cash Register Balancer Relationship Specialty Start Date End Date Rosibel Muse MD PCP - General Family Practice 05/24/21 05/06/24 documented as of this encounter
--- OUTSIDE RECORDS SUMMARY | 2024-08-17 08:58 | XMS_ITS | Encounter Summary ---
Author Organization [facility] [employer] [facility] Address [address] [place] [address] Care Team Providers Care Water Taxi Driver Name Role Phone Rosibel Muse MD Primary Care Provider [phone] Encounter Details Date Type Department Care Team (Late Contact Info) Description 12/24/2022 Orders Only [facility] Oncology and Hematology [facility] [address] [place] [address] Royal Newell MD [address] [place] [address] Iron deficiency anemia, unspecified iron deficiency [...] (Late Contact Info) Description 08/25/2024 2:00 PM MAGNETIC RESONANCE IMAGING COORDINATOR Office Visit [facility] Oncology and Hematology - [place] [address] [place] [address] Royal Newell MD [address] [place] [address] documented as of this encounter Visit Diagnoses Diagnosis Iron deficiency anemia, unspecified iron deficiency anemia type documented in this encounter Care Teams Water Taxi Driver Relationship Specialty Start Date End Date Rosibel Muse MD PCP - General Family Practice 05/24/21 05/06/24 documented as of this encounter
--- OUTSIDE RECORDS SUMMARY | 2024-08-17 08:58 | XMS_ITS | Encounter Summary ---
Author Organization [facility] [employer] [facility] Address [address] [place] [address] Care Team Providers Care Business Systems Architect Name Role Phone Rosibel Muse MD Primary Care Provider [phone] Encounter Details Date Type Department Care Team (Late Contact Info) Description 02/18/2023 Orders Only [facility] Oncology and Hematology [place] [address] [place] [address] Royal Newell MD [address] [place] [address] Iron deficiency anemia, unspecified iron deficiency [...] (Late Contact Info) Description 08/25/2024 2:00 PM RATE MARKER Office Visit [facility] Oncology and Hematology - [place] [address] [place] [address] Royal Newell MD [address] [place] [address] documented as of this encounter Visit Diagnoses Diagnosis Iron deficiency anemia, unspecified iron deficiency anemia type documented in this encounter Care Teams Business Systems Architect Relationship Specialty Start Date End Date Rosibel Muse MD PCP - General Family Practice 05/24/21 05/06/24 documented as of this encounter
--- OUTSIDE RECORDS SUMMARY | 2024-08-17 08:58 | XMS_ITS | Encounter Summary ---
Author Organization [facility] [employer] [facility] Address [address] [place] [address] Care Team Providers Care Program Rep Name Role Phone Rosibel Muse MD Primary Care Provider [phone] Reason for Visit * Reason Comments Med Refill Encounter Details Date Type Department Care Team (Late Contact Info) Description 01/07/2023 Refill [facility] Oncology and Hematology - [place] [address] [place] [address] Royal Newell MD [address] [place] [address] Social History Tobacco Use Types [...] (Late Contact Info) Description 08/25/2024 2:00 PM BIOMEDICAL EQUIPMENT TECH Office Visit [facility] Oncology and Hematology - [place] [address] [place] [address] Royal Newell MD [address] [place] [address] documented as of this encounter Visit Diagnoses Not on filedocumented in this encounter Care Teams Program Rep Relationship Specialty Start Date End Date Rosibel Muse MD PCP - General Family Practice 05/24/21 05/06/24 documented as of this encounter
--- OUTSIDE RECORDS SUMMARY | 2024-08-17 08:58 | XMS_ITS | Encounter Summary ---
Author Organization [facility] Phase III Development [facility] Address [address] [place] [address] Care Team Providers Care Associate Professor Of Literature Name Role Phone Rosibel Muse MD Primary Care Provider [phone] Encounter Details Date Type Department Care Team (Late Contact Info) Description 02/04/2023 Orders Only [facility] Oncology and Hematology [facility] [address] [place] [address] Royal Newell MD [address] [place] [address] Iron deficiency anemia, unspecified iron deficiency [...] (Late Contact Info) Description 08/25/2024 2:00 PM DIPPER AND DRIER Office Visit [facility] Oncology and Hematology - [place] [address] [place] [address] Royal Newell MD [address] [place] [address] documented as of this encounter Visit Diagnoses Diagnosis Iron deficiency anemia, unspecified iron deficiency anemia type documented in this encounter Care Teams Associate Professor Of Literature Relationship Specialty Start Date End Date Rosibel Muse MD PCP - General Family Practice 05/24/21 05/06/24 documented as of this encounter
--- OUTSIDE RECORDS SUMMARY | 2024-08-17 08:58 | XMS_ITS | Encounter Summary ---
Author Organization [facility] [employer] [facility] Address [address] [place] [address] Care Team Providers Care Court Monitor Name Role Phone Rosibel Muse MD Primary Care Provider [phone] Encounter Details Date Type Department Care Team (Late Contact Info) Description 12/10/2022 Orders Only [facility] Oncology and Hematology [facility] [address] [place] [address] Royal Newell MD [address] [place] [phone] Iron deficiency anemia, unspecified iron deficiency [...] (Late Contact Info) Description 08/25/2024 2:00 PM ESCORT CAR DRIVER Office Visit [facility] Oncology and Hematology - [place] [address] [place] [address] Royal Newell MD [address] [place] [address] documented as of this encounter Visit Diagnoses Diagnosis Iron deficiency anemia, unspecified iron deficiency anemia type documented in this encounter Care Teams Court Monitor Relationship Specialty Start Date End Date Rosibel Muse MD PCP - General Family Practice 05/24/21 05/06/24 documented as of this encounter
--- OUTSIDE RECORDS SUMMARY | 2024-08-17 08:58 | XMS_ITS | Encounter Summary ---
Author Organization [facility] [employer] [facility] Address [address] [place] [address] Care Team Providers Care Professional Services Consultant Name Role Phone Rosibel Muse MD Primary Care Provider [phone] Encounter Details Date Type Department Care Team (Late Contact Info) Description 01/21/2023 Orders Only [facility] Oncology and Hematology [facility] [address] [place] [address] Royal Newell MD [address] [place] [phone] Iron deficiency anemia, unspecified iron deficiency [...] (Late Contact Info) Description 08/25/2024 2:00 PM ACCOUNT COORDINATOR Office Visit [facility] Oncology and Hematology - [place] [address] [place] [address] Royal Newell MD [address] [place] [phone] documented as of this encounter Visit Diagnoses Diagnosis Iron deficiency anemia, unspecified iron deficiency anemia type documented in this encounter Care Teams Professional Services Consultant Relationship Specialty Start Date End Date Rosibel Muse MD PCP - General Family Practice 05/24/21 05/06/24 documented as of this encounter
--- OUTSIDE RECORDS SUMMARY | 2024-08-17 08:58 | XMS_ITS | Encounter Summary ---
Author Organization [facility] [employer] [facility] Address [address] [place] [address] Care Team Providers Care Clinical Dietitian Name Role Phone Rosibel Muse MD Primary Care Provider [phone] Encounter Details Date Type Department Care Team ([facility] Contact Info) Description 10/25/2022 Orders Only [facility] Oncology and Hematology [facility] [address] [place] [address] Candi Hutchinson Ampullary carcinoma Social History Tobacco Use Types Packs/Day Years [...] Upcoming Encounters Date Type Department Care Team ([facility] Contact Info) Description 08/25/2024 2:00 PM SENIOR MOBILE SOLUTIONS ARCHITECT Office Visit [facility] Oncology and Hematology [facility] [address] [place] [address] Royal Newell MD [address] 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
--- OUTSIDE RECORDS SUMMARY | 2024-08-17 08:58 | XMS_ITS | Encounter Summary ---
Author Organization [facility] Address [address] [place] [address] Care Team Providers Care Metalsmith Name Role Phone Rosibel Muse MD Primary Care Provider [phone] Encounter Details Date Type Department Care Team (Late st Contact Info) Description 02/20/2023 Orders Only [facility] [address] [facility] [address] [place] [address] [place] [address] [facility] [address] [place] [address] Primary cancer of ampulla of Vater (Primary Dx) Social History Tobacco Use Types [...] st Contact Info) Description 08/25/2024 2:00 PM ARCHITECTURE ANALYST Office Visit [facility]3] Oncology and Hematology - [place] [address] [facility] [address] [place] [address] Royal Newell MD [address] [facility] [address] [place] [address] documented as of this encounter Visit Diagnoses Diagnosis Primary cancer of ampulla of Vater- Primary documented in this encounter Care Teams Metalsmith Relationship Specialty Start Date End Date Rosibel Muse MD PCP - General Family Practice 05/24/21 05/06/24 documented as of this encounter
--- OUTSIDE RECORDS SUMMARY | 2024-08-17 08:58 | XMS_ITS | Encounter Summary ---
Author Organization [facility] Address [address] [place] [address] Care Team Providers Care Electronic Industrial Controls Mechanic Name Role Phone Rosibel Muse MD Primary Care Provider [phone] Reason for Visit * Reason Comments Follow Up Encounter Details Date Type Department Care Team (Late st Contact Info) Description 03/07/2023 10:30 AM CDT Office Visit [facility] Oncology and Hematology - [place] [address] [place] [address] Bernie Gil MD [address] [place] [address] Ampullary carcinoma (Primary Dx) Social [...] Sign Reading Time Taken Comments Blood Pressure 129/84 03/07/2023 10:08 AM CDT Pulse 78 03/07/2023 10:08 AM CDT Temperature 36.7 ??C (98 ??F) 03/07/2023 10:08 AM CDT Respiratory Rate 10 03/07/2023 10:08 AM CDT Oxygen Saturation 99% 03/07/2023 10:08 AM CDT Inhaled Oxygen Concentration - - Weight 71.7 kg (158 lb) 03/07/2023 10:08 AM CDT Height - - Body Mass Index 28.9 02/20/2023 10:31 AM CDT documented in this encounter Progress Notes * Roosevelt-Bernie Lutz MD - 03/07/2023 10:29 AM CDT HEMATOLOGY / ONCOLOGY PROGRESS NOTE Patient Identification: Name: Krissy Jaquez White Age: 67 y.o. 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 EGD done on May 22, 2021 showed malignant appearing duodenal mass and biopsies were taken. Pathology came back positive for gastritis. [facility] where she had EUS and ERCP done with Dr. Medeiros. 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 Neoadjuvant chemotherapy with modified FOLFIRINOX regimen started 07/11/2021. Received cycle 8/8 onOctober 31, 2021 with 20% dose reduction due to toxicity. Pancreaticoduodenectomy done on December 29, 2021. SUBJECTIVE Patient came into the office for follow-up visit. She feels well without any abdominal pain. She denies weight loss. No food intolerance. No melena hematochezia. Denies any excessive tiredness and fatigue. No other new complaints. ROS Constitutional: denies fevers, sweats, 1 pound weight gain with mild tiredness and fatigue HEENT: denies sinus congestion, hearing or vision problems Respiratory: denies cough, dyspnea, wheeze Cardiovascular: denies chest pain, exertional chest pressure/discomfort, nausea, syncope, shortnessof breath GI: Complain of mild lower abdominal discomfort denies any nausea vomiting and diarrhea. : deniesdysuria, frequency, incontinence, urgency Integumentary system: no lymphadenopathy, sweats, flushing Musculoskeletal: denies: myalgia, arthralgia Neurological: denies blurry or disturbed vision, denies any neuropathy. Skin: No lumps, bumps or rashes. 12 point review system was reviewed PHYSICAL EXAMINATION: BP 129/84 (BP Location: Left arm, Patient Position (BP): Sitting) Pulse 78 Temp 98 ??F (36.7 ??C) Resp 10 Wt 71.7 kg (158 lb) SpO2 99% BMI 28.90 kg/m?? 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 Gonzalez. Patient had pancreatic stent placed and biopsies were taken. CT scan showed 3.5 cm mass at the ampulla extending into the duodenum without evidence of distant metastasis. Patient received neoadjuvant chemotherapy with FOLFIRINOX regimen cycle 03/19 completed 2021. Patient had pancreaticoduodenectomy done on January 06, 2022. Final pathology reviewed that showed no evidence of malignancy. A surveillance CT abdomen and pelvis done on 02/08/23 shows stable dominant cystic-appearing hepaticlesions in right hepatic lobe. These has been stable and will observe with another CT scan in 3 months. . 2. Anemia: Resolved. Continue iron and vitamin B12. TOBACCO COUNSELING She is not a tobacco user. documented in this encounter Plan of Treatment Upcoming Encounters Date Type Department Care Team (Late st Contact Info) Description 08/25/2024 2:00 PM LINE PERSON Office Visit [facility] Oncology and Hematology [facility] [address] [facility] [address] [place] [address] Royal Newell MD [address] [facility] [address] [place] [address] Scheduled Orders Name Type Priority Associated Diagnoses Orde r Schedule CBC WITH DIFFERENTIAL Lab Routine Ampullary carcinoma Expected: 03/07/2023, Expires: 03/07/2024 COMPREHENSIVE METABOLIC PANEL Lab Routine Ampullary carcinoma Expected: 03/07/2023, Expires: 03/07/2024 CANCER ANTIGEN 19-9 Lab Routine Ampullary carcinoma Expected: 03/07/2023, Expires: 03/07/2024 documented as of this encounter Visit Diagnoses Diagnosis Ampullary carcinoma- Primary Malignant neoplasm of ampulla of Vater documented in this encounter Care Teams Electronic Industrial Controls Mechanic Relationship Specialty Start Date End Date Rosibel Muse MD PCP - General Family Practice 05/24/21 05/06/24 documented as of this encounter
--- OUTSIDE RECORDS SUMMARY | 2024-08-17 08:58 | XMS_ITS | Encounter Summary ---
Author Organization [facility] [employer] [facility] Address [address] [place] [address] Care Team Providers Care Ornamental Iron Worker Apprentice Name Role Phone Rosibel Muse MD Primary Care Provider [phone] Encounter Details Date Type Department Care Team (Late Contact Info) Description 11/15/2022 Orders Only [facility] Oncology and Hematology [facility] [address] [place] [address] Alice Bui Primary cancer of ampulla of Vater; Pancreatic fistula Social History Tobacco Use Types Packs/Day Years Used Date Smoking Tobacco: Former Cigarettes 0.5 10 1 10/04/2003 - 08/03/2014 Smokeless Tobacco: Never Alcohol Use Standard Drinks/Week Comments Not Currently 0 (1 standard drink = 0.6 oz pur e alcohol) Sex and Gender Information Value Date Recorded Sex Assigned at Not on file Gender Identity Not on file Sexual Orientation Not on file COVID-19 Exposure Response Date Recorded In the last 10 days, have yo u been in contact with someone who was confirmed or suspected to have Coronavirus/COVID-19? No / Unsure 11/09/2022 8:58 AM CDT documented as of this encounter Plan of Treatment Upcoming Encounters Date Type Department Care Team ([facility] Contact Info) Description 08/25/2024 2:00 PM MARINE RESOURCE ECONOMIST Office Visit [facility] Oncology and Hematology - [place] [address] [place] [address] Royal Newell MD [address] [facility] [address] [place] [address] documented as of this encounter Visit Diagnoses Diagnosis Primary cancer of ampulla of Vater Pancreatic fistula Other specified disease of pancreas documented in this encounter Care Teams Ornamental Iron Worker Apprentice Relationship Specialty Start Date End Date Rosibel Muse MD PCP - General Family Practice 05/24/21 05/06/24 documented as of this encounter
--- OUTSIDE RECORDS SUMMARY | 2024-08-17 08:58 | XMS_ITS | Encounter Summary ---
Author Organization [facility] Address [address] [place] [address] Care Team Providers Care Skin Care Therapist Name Role Phone Rosibel Muse MD Primary Care Provider [phone] Reason for Visit * Reason Comments Follow Up [place] Encounter Details Date Type Department Care Team (Late st Contact Info) Description 02/20/2023 10:30 AM CDT Office Visit [facility] Omar Jaquez [facility] [address] [facility] [address] [place] [address] Edie Arriaga PA-C [address] [facility] [address] [place] [address] Primary cancer of ampulla of [...] Sign Reading Time Taken Comments Blood Pressure 120/68 02/20/2023 10:31 AM CDT Pulse 84 02/20/2023 10:31 AM CDT Temperature 36.7 ??C (98.1 ??F) 02/20/2023 1 0:31 AM CDT Respiratory Rate - - Oxygen Saturation 97% 02/20/2023 10: 31 AM CDT Inhaled Oxygen Concentration - - Weight 75.6 kg (166 lb 11.2 oz) 023 10:31 AM CDT Height 157.5 cm (5' 2 ) 02/20/2023 10:3 1 AM CDT Body Mass Index 30.49 02/20/2023 10:31 AM CDT documented in this encounter Progress Notes * Edie Arriaga PA-C - 02/20/2023 10:39 AM CDT Images from the original note were not included. HISTORY OF PRESENT ILLNESS Krissy Oneal is a 67 y.o. female presents with chief complaint of Follow Up ([place]) Subjective Interval history 02/20/23January returns today as a [...] Patrice and her daughter Brittni. HPI Krissy Leonid Oneal is a 65 y.o. female recently [...] ENDOSCOPIC performed by Omar Gonzalez MD at [facility] HX ERCP 05/2021 at [facility] HX HEART CATHETERIZATION HX HYSTERECTOMY HX PANCREATICODUODENECTOMY N/A 12/29/2021 DIAGNOSTIC LAPAROSCOPY , EXPLORATORY LAPROTOMY PANCREATICODUODENECTOMY (WHIPPLE PROCEDURE) performed by Phil Mejia MD at [facility] OR HX PARTIAL THYROIDECTOMY goiter at age 8 y/o HX PORTACATH PLACEMENT HX SINUS SURGERY x 2 HX SPINAL SURGERY cervical laminectomy HX TUBAL LIGATION TN EDG US EXAM SURGICAL ALTER STOM DUODENUM/JEJUNUM N/A 05/25/2021 ULTRASOUND ENDOSCOPIC performed by Omar Gonzalez MD at [facility] TN ESOPHAGOGASTRODUODENOSCOPY TRANSORAL DIAGNOSTIC N/A 05/25/2021 ESOPHAGOGASTRODUODENOSCOPY performed by Omar Gonzalez MD at [facility] Social History Tobacco Use Smoking status: Former Packs/day: 0.50 Years: 10.00 Pack years: 5.00 Types: Cigarettes Quit date: 08/03/2014 Years since quittin.5 Smokeless tobacco: Never Vaping Use Vaping Use: [...] 1 mg, Oral, NIGHTLY PRN amLODIPine (NORVASC) 5 mg, Oral, DAILY budesonide-formoteroL (SYMBICORT) 160-4.5 mcg/actuation HFA Aerosol Inhaler 2 Puffs, Inhalation, TWO TIMES DAILY PRN fluticasone propionate (FLONASE) 50 mcg/spray [place], Suspension nasal inhaler 2 Sprays, Both Nostrils, DAILY PRN hydroCHLOROthiazide 37.5 mg, Oral, DAILY, Takes 1 1/2 tablets iron,carb/vit C/vit B12/folic (IRON 100 PLUS ORAL) 100 mg, Oral, DAILY, liquid losartan (COZAAR) 100 mg, Oral, EVERY 24 HOURS naloxone (NARCAN) 4 mg/spray [place], Non-Aerosol EMERGENCY USE ONLY: Administer 1 spray (4 mg) in one nostril one time. May repeat in alternating nostrils every 2-3 min until responsive or EMS arrives. potassium chloride (KLOR-CON) 20 mEq Extended Release tablet TAKE 1 TABLET BY MOUTH DAILY predniSONE (DELTASONE) 50 mg, Oral, SEE ADMIN INSTRUCTIONS, Take 1 tablet 12 hours before test, 6 hours before test and 1 hour before test. sertraline (ZOLOFT) 50 mg, Oral, DAILY AT BEDTIME simvastatin (ZOCOR) 20 mg, Oral, DAILY AT BEDTIME Vitamin B-12 5,000 mcg, Sublingual, DAILY Allergies Allergen Reactions Iodinated Contrast Media Itching Sulfa (Sulfonamide Antibiotics) Dizziness and Itching Erythromycin Itching Kiwi Rash and Itching Macrolide Antibiotics Itching Naproxen Sodium Itching Nitrofurantoin Itching Itching Penicillins Itching Objective PHYSICAL EXAM Vitals: 02/20/23 1031 BP: 120/68 Pulse: 84 Temp: 98.1 ??F (36.7 ??C) SpO2: 97% Physical Exam Vitals reviewed. Constitutional: General: She is not in acute distress. Appearance: Normal appearance. She is normal weight. She is not ill-appearing or toxic-appearing. HENT: Head: Normocephalic and atraumatic. Eyes: General: No scleral icterus. Conjunctiva/sclera: Conjunctivae normal. Cardiovascular: Rate and Rhythm: Normal rate. Pulmonary: Effort: Pulmonary effort is normal. Abdominal: General: Abdomen is flat and protuberant. A surgical scar is present. Bowel sounds are increased. Palpations: Abdomen is soft. Tenderness: There is no abdominal tenderness. Hernia: A hernia is present. Hernia is present in the ventral area. Skin: Coloration: Skin is not jaundiced. Neurological: General: No focal deficit present. Mental Status: She is alert and oriented to person, place, and time. Mental status is at baseline. Psychiatric: Mood and Affect: Mood normal. Behavior: Behavior normal. Thought Content: Thought content normal. Judgment: Judgment normal. IMAGING: ASSESSMENT and PLAN: ICD-10-CM ICD-9-CM 1. 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 CHEST ABDOMEN PELVIS W WO CONT CANCELED: CANCER ANTIGEN 19-9 67 y.o. female status post pancreaticoduodenectomy without overt evidence of recurrence at today's visit. Recent CT findings show stability of hepatic lesions. Recommend she follow up with her PCP regarding recommendations for local general surgeons for hernia repair given Dr. Novoa (and his partners) do not take her insurance. I recommend she return to clinic in [address] chest and pelviswith IV contrast and CA 19-9 for active surveillance. All questions were answered to her satisfaction and she is comfortable with the plan. in kind regards, Edie Arriaga PA-C Surgical Oncology and Endocrine Surgery [facility] Total Time: 20 minutes, over 15 of which were spent in direct conversation and the remainder spent in preparation for today's visit. documented in this encounter Plan of Treatment Upcoming Encounters Date Type Department Care Team (Late st Contact Info) Description 08/25/2024 2:00 PM SHOESHINER Office Visit [facility] Oncology and Hematology - [place] [address] [place] [address] [facility] [address] [place] [address] Royal Newell MD [address] [facility] [address] [place] [address] documented as of this encounter Visit Diagnoses Diagnosis Primary cancer of ampulla of Vater- Primary documented in this encounter Care Teams Skin Care Therapist Relationship Specialty Start Date End Date Rosibel Muse MD PCP - General Family Practice 05/24/21 05/06/24 documented as of this encounter
--- OUTSIDE RECORDS SUMMARY | 2024-08-17 08:58 | XMS_ITS | Encounter Summary ---
Author Organization [facility] [employer] [facility] Address [address] [place] [address] Care Team Providers Care Behavioral Intervention Specialist Name Role Phone Rosibel Muse MD Primary Care Provider [phone] Encounter Details Date Type Department Care Team (Late Contact Info) Description 01/07/2023 Orders Only [facility] Oncology and Hematology [facility] [address] [place] [address] Royal Newell MD [address] [place] [address] Iron deficiency anemia, unspecified iron deficiency [...] (Late Contact Info) Description 08/25/2024 2:00 PM TOURS HOSTESS Office Visit [facility] Oncology and Hematology - [place] [address] [place] [address] Royal Newell MD [address] [place] [address] documented as of this encounter Visit Diagnoses Diagnosis Iron deficiency anemia, unspecified iron deficiency anemia type documented in this encounter Care Teams Behavioral Intervention Specialist Relationship Specialty Start Date End Date Rosibel Muse MD PCP - General Family Practice 05/24/21 05/06/24 documented as of this encounter
--- OUTSIDE RECORDS SUMMARY | 2024-08-17 08:58 | XMS_ITS | Encounter Summary ---
Author Organization [facility] Address [address] [facility] Attn: Epic Prelude ADT [place] [address] Care Team Providers Care Hand Woven Carpet And Rug Mender Name Role Phone Rosibel Muse MD Primary Care Provider [phone] Encounter Details Date Type Department Care Team (Latest Contact Info) Description 11/09/2022 Travel Social History Tobacco Use Types Packs/Day Years [...] st Contact Info) Description 08/25/2024 2:00 PM TIN TIE MACHINE OPERATOR AUTOMATIC Office Visit [facility] Oncology and Hematology - [place] [address] [place] [address] Royal Newell MD [address] [facility] [address] [place] [address] documented as of this encounter Visit Diagnoses Not on filedocumented in this encounter Care Teams Hand Woven Carpet And Rug Mender Relationship Specialty Start Date End Date Rosibel Muse MD PCP - General Family Practice 05/24/21 05/06/24 documented as of this encounter
--- OUTSIDE RECORDS SUMMARY | 2024-08-17 08:58 | XMS_ITS | Encounter Summary ---
Author Organization [facility] [employer] [facility] Address [address] [place] [address] Care Team Providers Care Fresh Food Manager Name Role Phone Rosibel Muse MD Primary Care Provider [phone] Encounter Details Date Type Department Care Team (Late Contact Info) Description 11/26/2022 Orders Only [facility] Oncology and Hematology - [place] [address] [place] [address] Royal Newell MD [address] [facility] [address] [place] [address] Iron deficiency anemia, unspecified iron deficiency [...] (Late Contact Info) Description 08/25/2024 2:00 PM MANAGER FLEET Office Visit [facility] Oncology and Hematology - [place] [address] [place] [address] Royal Newell MD [address] [facility] [address] [place] [address] documented as of this encounter Visit Diagnoses Diagnosis Iron deficiency anemia, unspecified iron deficiency anemia type documented in this encounter Care Teams Fresh Food Manager Relationship Specialty Start Date End Date Rosibel Muse MD PCP - General Family Practice 05/24/21 05/06/24 documented as of this encounter
--- OUTSIDE RECORDS SUMMARY | 2024-08-17 08:58 | XMS_ITS | Encounter Summary ---
Author Organization [facility] Address [address] [place] [address] Care Team Providers Care Cloth Picker Name Role Phone Rosibel Muse MD Primary Care Provider [phone] Encounter Details Date Type Department Care Team (Latest Contact Info) Description 02/08/2023 11:25 AM CDT - 02/08/2023 11:59 PM CDT Hospital Encounter [facility] [place] [address] [place] [address] [facility], External Provider [address] [place] [address] Discharge Disposition: Home or Self Care Social [...] Sig Dispensed Refills Start Date End Date losartan (COZAAR) 100 mg tablet Take 100 mg by mouth every 24 hours. naloxone (NARCAN) 4 mg/spray [place], Non-Aerosol EMERGENCY USE ONLY: Administer 1 spray [...] for Anxiety. fluticasone propionate (FLONASE) 50 mcg/spray [place], Suspension nasal inhaler Administer 2 Sprays in [...] and 1 hour before test. 3 Tablet 01/15/2023 03/07/2023 potassium chloride (KLOR-CON) 20 mEq Extended Release tablet TAKE 1 TABLET BY MOUTH DAILY 100 Tablet 2 01/08/2023 10/15/2023 documented as of this encounter Plan of Treatment Upcoming Encounters Date Type Department Care Team (Late st Contact Info) Description 08/25/2024 2:00 PM CLINICAL AUDITOR Office Visit [facility] Oncology and Hematology - [place] [address] [facility] [address] [place] [address] Royal Newell MD [address] [facility] [address] [place] [address] documented as of this encounter Procedures Procedure Name Priority Date/Time Associated Diagnosis Comments CT PRIOR STUDY Routine 02/08/2023 11:25 AM CDT Encounter for administrative examinations, unspecified documented in this encounter Results * CT PRIOR STUDY (02/08/2023 11:25 AM CDT) Narrative 02/13/2023 11:24 AM CDT This exam was auto finalized to allow images to be scanned to PACS. External Provider [facility] CT ORDERABLES documented in this encounter Visit Diagnoses Diagnosis Encounter for administrative examinations, unspecified documented in this encounter Care Teams Cloth Picker Relationship Specialty Start Date End Date Rosibel Muse MD PCP - General Family Practice 05/24/21 05/06/24 documented as of this encounter
--- OUTSIDE RECORDS SUMMARY | 2024-08-17 08:58 | XMS_ITS | Encounter Summary ---
Author Organization [facility] [employer] [facility] Address [address] [place] [address] Care Team Providers Care Glass Sander Belt Name Role Phone Rosibel Muse MD Primary Care Provider [phone] Encounter Details Date Type Department Care Team (Late Contact Info) Description 03/04/2023 Orders Only [facility] Oncology and Hematology [facility] [address] [place] [address] Royal Newell MD [address] [employer] [address] [place] [address] Iron deficiency anemia, unspecified iron deficiency [...] (Late Contact Info) Description 08/25/2024 2:00 PM GAS ADJUSTER Office Visit [facility] Oncology and Hematology - [place] [address] [place] [address] Royal Newell MD [address] [place] [address] documented as of this encounter Visit Diagnoses Diagnosis Iron deficiency anemia, unspecified iron deficiency anemia type documented in this encounter Care Teams Glass Sander Belt Relationship Specialty Start Date End Date Rosibel Muse MD PCP - General Family Practice 05/24/21 05/06/24 documented as of this encounter
--- OUTSIDE RECORDS SUMMARY | 2024-08-17 08:58 | XMS_ITS | Encounter Summary ---
Author Organization [facility] [employer] [facility] Address [address] [place] [address] Care Team Providers Care Fountain Operator Name Role Phone Rosibel Muse MD Primary Care Provider [phone] Encounter Details Date Type Department Care Team (Late Contact Info) Description 11/12/2022 Orders Only [facility] Oncology and Hematology - [place] [address] [place] [address] Royal Newell MD [address] [facility] [address] [place] [address] Iron deficiency anemia, unspecified iron [...] (Late Contact Info) Description 08/25/2024 2:00 PM CHECKERER HAND Office Visit [facility] Oncology and Hematology - [place] [address] [place] [address] Royal Newell MD [address] [facility] [address] [place] [address] documented as of this encounter Visit Diagnoses Diagnosis Iron deficiency anemia, unspecified iron deficiency anemia type documented in this encounter Care Teams Fountain Operator Relationship Specialty Start Date End Date Rosibel Muse MD PCP - General Family Practice 05/24/21 05/06/24 documented as of this encounter
--- OUTSIDE RECORDS SUMMARY | 2024-08-17 08:58 | XMS_ITS | Encounter Summary ---
Author Organization [facility] [email or web address] [facility] Address [address] [place] [address] Care Team Providers Care Yard Caller Name Role Phone Rosibel Muse MD Primary Care Provider [phone] Reason for Visit * Reason Onset Date Comments Medication Refill 10/17/2022 Encounter Details Date Type Department Care Team (Late Contact Info) Description 10/17/2022 Refill [facility] Oncology and Hematology [place] [address] [place] [address] Royal Newell MD [address] [employer] [address] [place] [address] Social History Tobacco Use Types Packs/Day [...] (Late Contact Info) Description 08/25/2024 2:00 PM DOG SHOW JUDGE Office Visit [facility] Oncology and Hematology [place] [address] [place] [address] Royal Newell MD [address] [employer] [address] [place] [address] documented as of this encounter Visit Diagnoses Not on filedocumented in this encounter Care Teams Yard Caller Relationship Specialty Start Date End Date Rosibel Muse MD PCP - General Family Practice 05/24/21 05/06/24 documented as of this encounter
--- OUTSIDE RECORDS SUMMARY | 2024-08-17 08:58 | XMS_ITS | Encounter Summary ---
Author Organization [facility] [employer] [facility] Address [address] [place] [address] Care Team Providers Care Surgery Attendant Name Role Phone Rosibel Muse MD Primary Care Provider [phone] Encounter Details Date Type Department Care Team ([facility] Contact Info) Description 10/23/2022 Orders Only [facility] Oncology and Hematology - [place] [address] [place] [address] Candi Hutchinson Iron deficiency anemia, unspecified iron deficiency anemia [...] Encounters Date Type Department Care Team ([facility] Contact Info) Description 08/25/2024 2:00 PM COMMERCIAL SHRIMPING CAPTAIN Office Visit [facility] Oncology and Hematology - [place] [address] [place] [address] Royal Newell MD [address] [facility] [address] [place] [address] documented as of this encounter Visit Diagnoses Diagnosis Iron deficiency anemia, unspecified iron deficiency anemia type documented in this encounter Care Teams Surgery Attendant Relationship Specialty Start Date End Date Rosibel Muse MD PCP - General Family Practice 05/24/21 05/06/24 documented as of this encounter
--- OUTSIDE RECORDS SUMMARY | 2024-08-17 08:58 | XMS_ITS | Encounter Summary ---
Author Organization [facility] [employer] [facility] Address [address] [place] [address] Care Team Providers Care Cushion Sewer Name Role Phone Rosibel Muse MD Primary Care Provider [phone] Reason for Visit * Reason Comments Follow Up Encounter Details Date Type Department Care Team (Late st Contact Info) Description 11/09/2022 9:30 AM CDT Office Visit [facility] Oncology and Hematology - [place] [address] [place] [address] [address] [place] [address] Royal Newell MD [address] [facility] [address] [place] [address] Ampullary carcinoma (Primary Dx) Social [...] AM CDT documented as of this encounter Last Filed Vital Signs Vital Sign Reading Time Taken Comments Blood Pressure 129/73 11/09/2022 9:04 AM CDT Pulse 80 11/09/2022 9:04 AM CDT Temperature 36.2 ??C (97.1 ??F) 11/09/2022 9:04 AM CD T Respiratory Rate 10 11/09/2022 9:04 AM CDT Oxygen Saturation 95% 11/09/2022 9:04 AM CDT Inhaled Oxygen Concentration - - Weight 75.8 kg (167 lb) 11/09/2022 9:04 AM CDT Height - - Body Mass Index 30.54 08/30/2022 10:31 AM RN SUPPLEMENTAL documented in this encounter Progress Notes * Royal Newell MD - 11/09/2022 9:47 AM CDT HEMATOLOGY / ONCOLOGY PROGRESS NOTE [...] taken. Pathology came back positive for gastritis. [facility] where she had EUS and ERCP done with Dr. Medeiros. 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 Neoadjuvant chemotherapy with modified FOLFIRINOX regimen started 07/11/2021. Received cycle 8/8 onOctober 31, 2021 with 20% dose reduction due to toxicity. Pancreaticoduodenectomy done on December 29, 2021. SUBJECTIVE Patient came into the office for follow-up visit. She has some mild abdominal discomfort. She has gained 1 pound weight. No melena hematochezia. Denies any excessive tiredness and fatigue. No other new complaints. Review of system Constitutional: denies fevers, sweats, 1 pound weight [...] rashes. 12 point review system was reviewed Objective: Vital signs in [...] total bilirubin 0.5 AST 32 ALT 40 Assessment: Plan: Patient Active Problem List Diagnosis [...] reviewed that showed no evidence of malignancy. Patient had CT abdomen and pelvis done on October 23 that showed stable left hepatic density and 5 mmcystic lesion at the tail of the pancreas mildly increased from the prior study. I will repeat CT abdomen and pelvis in 3 months. We will order CA 19-9 today and then again in 3 months. There is no evidence of relapse of disease at this time. Anemia. Hemoglobin has improved. Continue iron and vitamin B12. TOBACCO COUNSELING She is not a tobacco user. 11/09/2022 Royal Newell MD documented in this encounter Plan of Treatment Upcoming Encounters Date Type Department Care Team (Late st Contact Info) Description 08/25/2024 2:00 PM RN SUPPLEMENTAL Office Visit [facility] Oncology and Hematology - [place] [address] [facility] [address] [place] [address] Royal Newell MD [address] [facility] [address] [place] [address] documented as of this encounter Visit Diagnoses Diagnosis Ampullary carcinoma- Primary Malignant neoplasm of ampulla of Vater documented in this encounter Care Teams Cushion Sewer Relationship Specialty Start Date End Date Rosibel Muse MD PCP - General Family Practice 05/24/21 05/06/24 documented as of this encounter
--- OUTSIDE RECORDS SUMMARY | 2024-08-17 09:00 | XMS_ITS | Encounter Summary ---
Author Organization [facility] [employer] [facility] Address [address] [place] [address] Care Team Providers Care Technical Producer Name Role Phone Rosibel Muse MD Primary Care Provider [phone] Encounter Details Date Type Department Care Team (Late Contact Info) Description 07/25/2022 Orders Only [facility] Oncology and [facility]ology [facility] [address] [place] [address] Candi Hutchinson Ampullary carcinoma Social History Tobacco Use Types Packs/Day Years Used Date Smoking Tobacco: Former Cigarettes 1 30 0 08/12/1973 - 08/12/2003 Smokeless Tobacco: Never Alcohol Use Standard Drinks/Week [...] suspected to have Coronavirus/COVID-19? No / Unsure 07/25/2022 11:05 AM LOOM FIXER documented as of this encounter Plan of Treatment Upcoming Encounters Date Type Department Care Team (Late Contact Info) Description 08/25/2024 2:00 PM LOOM FIXER Office Visit [facility] Oncology and Hematology - [place] [address] [place] [address] Royal Newell MD [address] [facility] [address] [place] [address] documented as of this encounter Procedures Procedure Name Priority Date/Time Associated Diagnosis Comments BASIC METABOLIC PANEL Routine 07/25/2022 documented in this encounter Results * BASIC METABOLIC PANEL (07/25/2022) Blood Royal Newell MD CHEMISTRY ORDERABLES documented in this encounter Visit Diagnoses Diagnosis Ampullary carcinoma Malignant neoplasm of ampulla of Vater documented in this encounter Care Teams Technical Producer Relationship Specialty Start Date End Date Rosibel Muse MD PCP - General Family Practice 05/24/21 05/06/24 documented as of this encounter
--- OUTSIDE RECORDS SUMMARY | 2024-08-17 09:00 | XMS_ITS | Encounter Summary ---
Author Organization [facility] Address [address] [facility] Attn: Epic Prelude ADT NIK DUMONT [address] Care Team Providers Care Business Support Name Role Phone Rosibel Muse MD Primary Care Provider [phone] Encounter Details Date Type Department Care Team (Latest Contact Info) Description 07/25/2022 Travel Social History Tobacco Use Types Packs/Day [...] Coronavirus/COVID-19? No / Unsure 07/25/2022 11:05 AM BOXING INSTRUCTOR documented as of this encounter Plan of Treatment Upcoming Encounters Date Type Department Care Team (Late st Contact Info) Description 08/25/2024 2:00 PM BOXING INSTRUCTOR Office Visit [facility] Oncology and Hematology - [place] [address] [place] [address] Royal Newell MD [address] [facility] [address] [place] [address] documented as of this encounter Visit Diagnoses Not on filedocumented in this encounter Care Teams Business Support Relationship Specialty Start Date End Date Rosibel Muse MD PCP - General Family Practice 05/24/21 05/06/24 documented as of this encounter
--- OUTSIDE RECORDS SUMMARY | 2024-08-17 09:00 | XMS_ITS | Encounter Summary ---
Author Organization [facility] Address [address] [place] [address] Care Team Providers Care Nremt Name Role Phone Rosibel Muse MD Primary Care Provider [phone] Encounter Details Date Type Department Care Team (Late Contact Info) Description 08/15/2022 Orders Only [facility] Surgical Specialists [facility] [address] [facility] [address] [place] [address] [place] [address] [facility] [address] [place] [address] Primary cancer of ampulla of [...] suspected to have Coronavirus/COVID-19? No / Unsure 08/14/2022 2:03 PM DYNAMIC ETCHING PROCESSOR documented as of this encounter Plan of Treatment Upcoming Encounters Date Type Department Care Team (Late st Contact Info) Description 08/25/2024 2:00 PM DYNAMIC ETCHING PROCESSOR Office Visit [facility] Oncology and Hematology - Erick [facility] [address] [place] [address] Royal Newell MD [facility] [facility] [address] [place] [address] documented as of this encounter Visit Diagnoses Diagnosis Primary cancer of ampulla of Vater- Primary documented in this encounter Care Teams Nremt Relationship Specialty Start Date End Date Rosibel Muse MD PCP - General Family Practice 05/24/21 05/06/24 documented as of this encounter
--- OUTSIDE RECORDS SUMMARY | 2024-08-17 09:00 | XMS_ITS | Encounter Summary ---
Author Organization [facility] [employer] Address [address] [place] [address] Care Team Providers Care Turkish Line Attendant Name Role Phone Rosibel Muse MD Primary Care Provider [phone] Encounter Details Date Type Department Care Team ([facility] Contact Info) Description 07/19/2022 Orders Only [facility] Oncology and Hematology [facility] [address] [place] [address] Bambi Catherine, RN Primary cancer of ampulla of Vater; Pancreatic [...] suspected to have Coronavirus/COVID-19? 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
--- OUTSIDE RECORDS SUMMARY | 2024-08-17 09:00 | XMS_ITS | Encounter Summary ---
Author Organization [facility] Address [address] [place] [address] Care Team Providers Care Talent Engineer Name Role Phone Rosibel Muse MD Primary Care Provider [phone] Encounter Details Date Type Department Care Team (Late st Contact Info) Description 08/27/2022 Orders Only [facility] Surgical Specialists [facility] [address] [facility] [address] [place] [address] [place] [address] [facility] [address] [place] [address] Pancreatic fistula (Primary Dx) Social History Tobacco Use Types [...] Coronavirus/COVID-19? No / Unsure 08/14/2022 2:03 PM LEAF TIER documented as of this encounter Plan of Treatment Upcoming Encounters Date Type Department Care Team (Late st Contact Info) Description 08/25/2024 2:00 PM LEAF TIER Office Visit [facility] Oncology and Hematology - [place] [facility] [address] [place] [address] Royal Newell MD [address] [place] [address] documented as of this encounter Visit Diagnoses Diagnosis Pancreatic fistula- Primary Other specified disease of pancreas documented in this encounter Care Teams Talent Engineer Relationship Specialty Start Date End Date Rosibel Muse MD PCP - General Family Practice 05/24/21 05/06/24 documented as of this encounter
--- OUTSIDE RECORDS SUMMARY | 2024-08-17 09:00 | XMS_ITS | Encounter Summary ---
Author Organization [facility] Address [address] [place] [address] Care Team Providers Care Station Worker Name Role Phone Rosibel Muse MD Primary Care Provider [phone] Reason for Visit * Reason Onset Date Comments Surgery 09/10/2022 Encounter Details Date Type Department Care Team (Late st Contact Info) Description 09/10/2022 Telephone [facility] General Surgery - [address] [place] [address] [place] [address] [address] Surgery Social History Tobacco Use Types Packs/Day Years [...] suspected to have Coronavirus/COVID-19? No / Unsure 08/30/2022 10:23 AM MANAGER PRESENTATION documented as of this encounter Miscellaneous Notes * Telephone Encounter - Laurenyaneli Long - 09/10/2022 9:04 AM CST Patient would like to cancel surgery at this time and try to lose weight and wear an abdominal binder for a while to try and manage symptoms and keep hernia from getting any bigger. Will call us to reschedule GER PRESENTATION documented in this encounter Plan of Treatment Upcoming Encounters Date Type Department Care Team (Late st Contact Info) Description 08/25/2024 2:00 PM MANAGER PRESENTATION Office Visit [facility] Oncology and Hematology - [place] [address] [facility] [address] [place] [address] Royal Newell MD [address] [facility] [address] [place] [address] documented as of this encounter Visit Diagnoses Not on filedocumented in this encounter Care Teams Station Worker Relationship Specialty Start Date End Date Rosibel Muse MD PCP - General Family Practice 05/24/21 05/06/24 documented as of this encounter
--- OUTSIDE RECORDS SUMMARY | 2024-08-17 09:00 | XMS_ITS | Encounter Summary ---
Author Organization [facility] Address [address] [place] [address] Care Team Providers Care Roofing Apprentice Name Role Phone Rosibel Muse MD Primary Care Provider [phone] Encounter Details Date Type Department Care Team (Late Contact Info) Description 09/10/2022 Orders Only [facility] Oncology and Hematology - [place] [address] [facility] [address] [place] [address] Royal Newell MD [address] [facility] [address] [place] [address] Iron deficiency anemia, unspecified iron deficiency anemia type; Primary cancer of ampulla of Vater; Ampullary carcinoma Social History Tobacco Use Types [...] Coronavirus/COVID-19? No / Unsure 08/30/2022 10:23 AM RESTAURANT DELIVERY DRIVER documented as of this encounter Plan of Treatment Upcoming Encounters Date Type Department Care Team (Late Contact Info) Description 08/25/2024 2:00 PM RESTAURANT DELIVERY DRIVER Office Visit [facility] Oncology and Hematology - [place] [address] 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
--- OUTSIDE RECORDS SUMMARY | 2024-08-17 09:00 | XMS_ITS | Encounter Summary ---
Author Organization [facility] Address [address] [facility] Attn: Epic Prelude ADT NIK DUMONT [address] Care Team Providers Care Mushroom Farmer Name Role Phone Rosibel Muse MD Primary Care Provider [phone] Encounter Details Date Type Department Care Team (Latest Contact Info) Description 08/30/2022 Travel Social History Tobacco Use Types Packs/Day [...] Coronavirus/COVID-19? No / Unsure 08/30/2022 10:23 AM HOGSHEAD WEIGHER documented as of this encounter Plan of Treatment Upcoming Encounters Date Type Department Care Team (Late st Contact Info) Description 08/25/2024 2:00 PM HOGSHEAD WEIGHER Office Visit [facility] Oncology and Hematology - [place] [address] [place] [address] Royal Newell MD [address] [facility] [address] [place] [address] documented as of this encounter Visit Diagnoses Not on filedocumented in this encounter Care Teams Mushroom Farmer Relationship Specialty Start Date End Date Rosibel Muse MD PCP - General Family Practice 05/24/21 05/06/24 documented as of this encounter
--- OUTSIDE RECORDS SUMMARY | 2024-08-17 09:00 | XMS_ITS | Encounter Summary ---
Author Organization [facility] Address [address] [place] [address] Care Team Providers Care Chief Scientist Name Role Phone Rosibel Muse MD Primary Care Provider Encounter Details Date Type Department Care Team (Late Contact Info) Description 08/06/[address] [facility] Oncology and Hematology - [place] [address] [place] [address] Royal Newell MD [address] [facility] [address] [place] [address] Iron deficiency anemia, unspecified iron [...] Coronavirus/COVID-19? No / Unsure 07/25/2022 11:05 AM LOCOMOTIVE INSPECTOR documented as of this encounter Plan of Treatment Upcoming Encounters Date Type Department Care Team (Late Contact Info) Description 08/25/2024 2:00 PM LOCOMOTIVE INSPECTOR Office Visit [facility] Oncology and Hematology - [place] [address] [place] [address] Royal Newell MD [facility] [address] [place] [address] documented as of this encounter Visit Diagnoses Diagnosis Iron deficiency anemia, unspecified iron deficiency anemia type documented in this encounter Care Teams Chief Scientist Relationship Specialty Start Date End Date Rosibel Muse MD PCP - General Family Practice 05/24/21 05/06/24 documented as of this encounter
--- OUTSIDE RECORDS SUMMARY | 2024-08-17 09:00 | XMS_ITS | Encounter Summary ---
Author Organization [facility] Address [address] [place] [address] Care Team Providers Care Supply Chain Analyst Name Role Phone Rosibel Muse MD Primary Care Provider Encounter Details Date Type Department Care Team (Late Contact Info) Description 2022 Orders Only [facility] Surgical Specialists [facility] [address] [facility] [address] [place] [address] [place] [address] [facility] [address] [place] [address] Primary cancer of ampulla of [...] Coronavirus/COVID-19? No / Unsure 08/14/2022 2:03 PM COACH BUILDER documented as of this encounter Plan of Treatment Upcoming Encounters Date Type Department Care Team (Late st Contact Info) Description 08/25/2024 2:00 PM COACH BUILDER Office Visit [facility] Oncology and Hematology - [place] [facility] [address] [place] [address] Royal Newell MD [facility] [address] [place] [address] documented as of this encounter Visit Diagnoses Diagnosis Primary cancer of ampulla of Vater- Primary documented in this encounter Care Teams Supply Chain Analyst Relationship Specialty Start Date End Date Rosibel Muse MD PCP - General Family Practice 05/24/21 05/06/24 documented as of this encounter
--- OUTSIDE RECORDS SUMMARY | 2024-08-17 09:00 | XMS_ITS | Encounter Summary ---
Author Organization [facility] Address [address] [place] [address] Care Team Providers Care Screen Printing Machine Operator Helper Name Role Phone Rosibel Muse MD Primary Care Provider [phone] Encounter Details Date Type Department Care Team (Late Contact Info) Description 09/24/2022 Orders Only [facility] Oncology and Hematology - [place] [address] [facility] [address] [place] [address] Royal Newell MD [address] [facility] [address] [place] [address] Iron deficiency anemia, unspecified iron [...] No / Unsure 08/30/2022 10:23 AM MANAGER TERMINAL documented as of this encounter Plan of Treatment Upcoming Encounters Date Type Department Care Team (Late Contact Info) Description 08/25/2024 2:00 PM MANAGER TERMINAL Office Visit [facility] Oncology and Hematology - [place] [address] [facility] [address] [place] [address] Royal Newell MD [address] [facility] [address] [place] [address] documented as of this encounter Visit Diagnoses Diagnosis Iron deficiency anemia, unspecified iron deficiency anemia type 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
--- OUTSIDE RECORDS SUMMARY | 2024-08-17 09:00 | XMS_ITS | Encounter Summary ---
Author Organization [facility] [employer] [facility] Address [address] [place] [address] Care Team Providers Care Intelligence Intern Name Role Phone Rosibel Muse MD Primary Care Provider Encounter Details Date Type Department Care Team (Late Contact Info) Description 07/30/2022 Orders Only [facility] Oncology and Hematology - [place] [address] [facility] [address] [place] [address] Royal Newell MD [address] [facility] [address] [place] [address] Iron deficiency anemia, unspecified iron [...] Coronavirus/COVID-19? 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
--- OUTSIDE RECORDS SUMMARY | 2024-08-17 09:00 | XMS_ITS | Encounter Summary ---
Author Organization [facility] Address [address] [place] [address] Care Team Providers Care Order Checker Packer Processer Name Role Phone Rosibel Muse MD Primary Care Provider Encounter Details Date Type Department Care Team (Late Contact Info) Description 08/14/2022 Orders Only [facility] Surgical Specialists [facility] [address] [facility] [address] [place] [address] [place] [address] [facility] [address] [place] [address] Pancreatic fistula (Primary Dx); Other abnormal tumor markers Social History Tobacco Use Types Packs/Day Years [...] Coronavirus/COVID-19? No / Unsure 08/14/2022 2:03 PM PARKING MANAGER documented as of this encounter Plan of Treatment Upcoming Encounters Date Type Department Care Team (Late Contact Info) Description 08/25/2024 2:00 PM PARKING MANAGER Office Visit [facility] Oncology and Hematology - [place] [address] [place] [address] Royal Newell MD [address] [facility] [address] [place] [address] documented as of this encounter Visit Diagnoses Diagnosis Pancreatic fistula- Primary Other specified disease of pancreas Other abnormal tumor markers documented in this encounter Care Teams Order Checker Packer Processer Relationship Specialty Start Date End Date Rosibel Muse MD PCP - General Family Practice 05/24/21 05/06/24 documented as of this encounter
--- OUTSIDE RECORDS SUMMARY | 2024-08-17 09:00 | XMS_ITS | Encounter Summary ---
Author Organization [facility] [employer] [facility] Address [address] [place] [address] Care Team Providers Care Boats Renter Name Role Phone Rosibel Muse MD Primary Care Provider [phone] Encounter Details Date Type Department Care Team (Late Contact Info) Description 09/17/2022 Orders Only [facility] Oncology and Hematology - Erick [address] [place] [address] Royal Newell MD [address] [facility] [employer] [address] [place] [address] Iron deficiency anemia, unspecified iron [...] Coronavirus/COVID-19? No / Unsure 08/30/2022 10:23 AM HEEL SEAT SANDER documented as of this encounter Plan of Treatment Upcoming Encounters Date Type Department Care Team (Late Contact Info) Description 08/25/2024 2:00 PM HEEL SEAT SANDER Office Visit [facility] Oncology and Hematology - [place] [address] [place] [address] Royal Newell MD [address] [facility] [address] [place] [address] documented as of this encounter Visit Diagnoses Diagnosis Iron deficiency anemia, unspecified iron deficiency anemia type documented in this encounter Care Teams Boats Renter Relationship Specialty Start Date End Date Rosibel Muse MD PCP - General Family Practice 05/24/21 05/06/24 documented as of this encounter
--- OUTSIDE RECORDS SUMMARY | 2024-08-17 09:00 | XMS_ITS | Encounter Summary ---
Author Organization [facility] Address [address] [place] [address] Care Team Providers Care Hydraulic Press Servicer Name Role Phone Rosibel Muse MD Primary Care Provider Reason for Visit * Reason Onset Date Comments Results 09/06/2022 Encounter Details Date Type Department Care Team ([facility] st Contact Info) Description 09/06/2022 Telephone [facility] Surgical Specialists [address] [address] Ronda Worrell, RN Results Social History Tobacco Use Types Packs/Day [...] Coronavirus/COVID-19? No / Unsure 08/30/2022 10:23 AM SUPERVISOR INSECTICIDE documented as of this encounter Miscellaneous Notes * Telephone Encounter - Ronda Worrell, RN - 09/06/2022 10:04 AM CST Office staff receive call from patient inquiring about her recent MRI results. Dr. Ken reviewedreport/scans and no new lesions were identified. Office staff provide update to patient who is relieved that the results are good. Patient aware and verbalize understanding. RVISOR INSECTICIDE documented in this encounter Plan of Treatment Upcoming Encounters Date Type Department Care Team (Late st Contact Info) Description 08/25/2024 2:00 PM SUPERVISOR INSECTICIDE Office Visit [facility] Oncology and Hematology - [place] [address] [facility] [address] [place] [address] Royal Newell MD [address] [facility] [address] [place] [address] documented as of this encounter Visit Diagnoses Not on filedocumented in this encounter Care Teams Hydraulic Press Servicer Relationship Specialty Start Date End Date Rosibel Muse MD PCP - General Family Practice 05/24/21 05/06/24 documented as of this encounter
--- OUTSIDE RECORDS SUMMARY | 2024-08-17 09:00 | XMS_ITS | Encounter Summary ---
Author Organization [facility] Address [address] [place] [address] Care Team Providers Care Missile Inspector Name Role Phone Rosibel Muse MD Primary Care Provider [phone] Encounter Details Date Type Department Care Team (Latest Contact Info) Description 07/17/2022 11:50 AM CANDLE WRAPPER - 07/17/2022 11:59 PM CANDLE WRAPPER Hospital Encounter [facility] [place] [address] [place] [address] [facility], External Provider [address] [place] [address] Discharge Disposition: Home or Self Care Social [...] Coronavirus/COVID-19? No / Unsure 07/12/2022 1:33 PM CANDLE WRAPPER documented as of this encounter Medications at Time of Discharge Medication Sig Dispensed Refills Start Date End Date naloxone (NARCAN) 4 mg/spray [place], Non-Aerosol EMERGENCY USE ONLY: Administer 1 spray [...] for Anxiety. fluticasone propionate (FLONASE) 50 mcg/spray [place], Suspension nasal inhaler Administer 2 Sprays in [...] 50 mg by mouth daily at bedtime. budesonide-formoteroL (SYMBICORT) 160-4.5 mcg/actuation HFA Aerosol Inhaler Take 2 Puffs by inhalation 2 times daily as needed. potassium chloride (KLOR-CON) 20 mEq Extended Release tablet TAKE 1 TABLET BY MOUTH DAILY 100 Tablet 2 02/27/2022 01/08/2023 documented as of this encounter Plan of Treatment Upcoming Encounters Date Type Department Care Team (Late st Contact Info) Description 08/25/2024 2:00 PM CANDLE WRAPPER Office Visit [facility] Oncology and Hematology - [place] [address] [facility] [address] [place] [address] Royal Newell MD [address] [facility] [address] [place] [address] documented as of this encounter Procedures Procedure Name Priority Date/Time Associated Diagnosis Comments CT PRIOR STUDY Routine 07/17/2022 11:50 AM CANDLE WRAPPER Equivocal imaging test findings documented in this encounter Results * CT PRIOR STUDY (07/17/2022 11:50 AM CANDLE WRAPPER) Narrative 07/20/2022 11:48 AM CANDLE WRAPPER This exam was auto finalized to allow images to be scanned to PACS. External Provider [facility] CT ORDERABLES documented in this encounter Visit Diagnoses Diagnosis Equivocal imaging test findings Other nonspecific (abnormal) findings on radiological and other examinations of body structure documented in this encounter Care Teams Missile Inspector Relationship Specialty Start Date End Date Rosibel Muse MD PCP - General Family Practice 05/24/21 05/06/24 documented as of this encounter
--- OUTSIDE RECORDS SUMMARY | 2024-08-17 09:00 | XMS_ITS | Encounter Summary ---
Author Organization [facility] Address [address] [place] [address] Care Team Providers Care Civil Engineering Specialist Name Role Phone Rosibel Muse MD Primary Care Provider [phone] Encounter Details Date Type Department Care Team (Late Contact Info) Description 08/20/2022 Orders Only [facility] Oncology and Hematology - [place] [address] [place] [address] Royal Newell MD [address] [facility] [employer] [address] [place] [address] Iron deficiency anemia, unspecified iron [...] Coronavirus/COVID-19? No / Unsure 08/14/2022 2:03 PM CLIENT APPLICATION SUPPORT SPECIALIST documented as of this encounter Plan of Treatment Upcoming Encounters Date Type Department Care Team (Late Contact Info) Description 08/25/2024 2:00 PM CLIENT APPLICATION SUPPORT SPECIALIST Office Visit [facility] Oncology and Hematology - [place] [address] [place] [address] Royal Newell MD [facility] [facility] [address] [place] [address] documented as of this encounter Visit Diagnoses Diagnosis Iron deficiency anemia, unspecified iron deficiency anemia type documented in this encounter Care Teams Civil Engineering Specialist Relationship Specialty Start Date End Date Rosibel Muse MD PCP - General Family Practice 05/24/21 05/06/24 documented as of this encounter
--- OUTSIDE RECORDS SUMMARY | 2024-08-17 09:00 | XMS_ITS | Encounter Summary ---
Author Organization [facility] Address [address] [place] [address] Care Team Providers Care Furniture Fabricator Name Role Phone Rosibel Muse MD Primary Care Provider [phone] Reason for Visit * Reason Comments Follow Up [place] Encounter Details Date Type Department Care Team (Late st Contact Info) Description 08/14/2022 2:45 PM AVIATION SUPPORT EQUIPMENT REPAIRER Office Visit [facility] Omar Leonid [facility] [address] [facility] [address] [place] [id number] [place] [id number] [facility] [address] [place] [address] Primary cancer of ampulla of Vater (Primary Dx) Social History Tobacco Use Types Packs/Day Years Used Date Smoking Tobacco: Former Cigarettes 1 30 0 08/12/1973 - 08/12/2003 Smokeless Tobacco: Never Tobacco Cessation:Counseling Given: Not [...] Coronavirus/COVID-19? No / Unsure 08/14/2022 2:03 PM AVIATION SUPPORT EQUIPMENT REPAIRER documented as of this encounter Last Filed Vital Signs Vital Sign Reading Time Taken Comments Blood Pressure 112/70 08/14/2022 2:55 PM AVIATION SUPPORT EQUIPMENT REPAIRER Pulse 90 08/14/2022 2:55 PM AVIATION SUPPORT EQUIPMENT REPAIRER Temperature 36.9 ??C (98.4 ??F) 08/14/2022 2:55 PM CS T Respiratory Rate - - Oxygen Saturation 98% 08/14/2022 2:55 PM AVIATION SUPPORT EQUIPMENT REPAIRER Inhaled Oxygen Concentration - - Weight 75.5 kg (166 lb 6.4 oz) 08/14/2022 2:55 P M AVIATION SUPPORT EQUIPMENT REPAIRER Height - - Body Mass Index 30.43 04/27/2022 9:26 AM CDT documented in this encounter Progress Notes * Phil Mejia MD - 08/14/2022 3:13 PM CST Images from the original note were not included. HISTORY OF PRESENT ILLNESS Krissy Oneal is a 66 y.o. female presents with chief complaint of Follow Up (Whipple) Subjective Interval history 08/14/22January returns today as a [...] byher Patrice and her daughter Brittni. HPI January Leonid Oneal is a 65 y.o. female [...] and vomiting. Past Medical History: Diagnosis Date Asthma Back pain bulging disc COPD (chronic obstructive pulmonary disease) pt. 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 Malignant neoplasm pancreas Obstructive sleep apnea CPAP- no longer using didn't work Pancreatic fistula 01/09/2022 Psychiatric disorder Wears dentures Past Surgical History: Procedure Laterality Date HX ERCP N/A 05/25/2021 CHOLANGIOPANCREATOGRAPHY RETROGRADE ENDOSCOPIC performed by Omar Gonzalez MD at [facility] HX ERCP 05/2021 at [facility] HX HEART CATHETERIZATION HX HYSTERECTOMY HX PANCREATICODUODENECTOMY N/A 12/29/2021 DIAGNOSTIC LAPAROSCOPY , EXPLORATORY LAPROTOMY PANCREATICODUODENECTOMY (WHIPPLE PROCEDURE) performed by Phil Mejia MD at [facility] OR HX PARTIAL THYROIDECTOMY goiter at age 8 y/o HX PORTACATH PLACEMENT HX SINUS SURGERY x 2 HX SPINAL SURGERY cervical laminectomy HX TUBAL LIGATION MD EDG US EXAM SURGICAL ALTER STOM DUODENUM/JEJUNUM N/A 05/25/2021 ULTRASOUND ENDOSCOPIC performed by Omar Gonzalez MD at [facility] MD ESOPHAGOGASTRODUODENOSCOPY TRANSORAL DIAGNOSTIC N/A 05/25/2021 ESOPHAGOGASTRODUODENOSCOPY performed by Omar Gonzalez MD at [facility] Social History Tobacco Use Smoking status: Former Packs/day: 1.00 Years: 30.00 Pack years: 30.00 Types: Cigarettes Quit date: 08/12/2003 Years since quittin.0 Smokeless tobacco: Never Vaping Use Vaping Use: Never used Substance Use Topics Alcohol use: Not Currently Drug use: Not Currently Types: Marijuana Comment: 20 years ago Family History Problem Relation Name Age of Onset Cancer Father Kidney Disease Mother Prostate Cancer Brother Prostate Cancer Brother Prostate Cancer Brother Cancer Brother Diabetes Brother Current Outpatient Medications Medication Instructions albuterol sulfate 90 mcg/Actuation inhaler 2 Puffs, Inhalation, EVERY 4 HOURS PRN ALPRAZolam (XANAX) 1 mg, Oral, NIGHTLY PRN amLODIPine (NORVASC) 5 mg, Oral, DAILY budesonide-formoteroL (SYMBICORT) 160-4.5 mcg/actuation HFA Aerosol Inhaler 2 Puffs, Inhalation, TWO TIMES DAILY PRN diphenhydrAMINE (BENADRYL) 50 mg, Oral, EVERY 6 HOURS PRN, Take 1 tablet 1hour prior to scan fluticasone propionate (FLONASE) 50 mcg/spray [place], Suspension nasal inhaler 2 Sprays, Both Nostrils, DAILY PRN hydroCHLOROthiazide 37.5 mg, Oral, DAILY, Takes 1 1/2 tablets iron,carb/vit C/vit B12/folic (IRON 100 PLUS ORAL) 100 mg, Oral, DAILY, liquid losartan (COZAAR) 100 mg, Oral, EVERY 24 HOURS methylPREDNISolone (MEDROL) 32 mg, Oral, DAILY, Take 1 tablet 12hours prior to scan. Take 1 tablet 2hours prior to scan naloxone (NARCAN) 4 mg/spray [place], Non-Aerosol EMERGENCY USE ONLY: Administer 1 spray (4 mg) in one nostril one time. May repeat in alternating nostrils every 2-3 min until responsive or EMS arrives. oxyCODONE (ROXICODONE) 5 mg, Oral, EVERY 6 HOURS PRN potassium chloride (KLOR-CON) 20 mEq Extended Release tablet TAKE 1 TABLET BY MOUTH DAILY predniSONE (DELTASONE) 50 mg tablet Take 1 tablet by mouth 12 hours before scan, 6 hours before scan, and 1 hour before scan. sertraline (ZOLOFT) 50 mg, Oral, DAILY AT BEDTIME simvastatin (ZOCOR) 20 mg, Oral, DAILY AT BEDTIME Vitamin B-12 5,000 mcg, Sublingual, DAILY Allergies Allergen Reactions Iodinated Contrast Media Itching Sulfa (Sulfonamide Antibiotics) Dizziness and Itching Erythromycin Itching Kiwi Rash and Itching Macrolide Antibiotics Itching Naproxen Sodium Itching Nitrofurantoin Itching Itching Penicillins Itching Objective PHYSICAL EXAM Vitals: 08/14/22 1455 BP: 112/70 Pulse: 90 Temp: 98.4 ??F (36.9 ??C) SpO2: 98% Physical Exam Vitals reviewed. Constitutional: General: She [...] Thought content normal. Judgment: Judgment normal. IMAGING: EXAMINATION: CT chest abdomen pelvis w con DATE: 07/17/2022 10:27 INDICATION: Pancreatic mass TECHNIQUE: Computed tomography (CT) of the chest, abdomen, and pelvis was performed with 100 CC Omnipaque 350 intravenous contrast. Automated exposure control and iterative reconstruction technique were employed. Exam dose: 595.87 mGy-cm total exam DLP. COMPARISON: 03/19/2022 CT abdomen pelvis 11/13/2021 CT chest abdomen pelvis FINDINGS: CHEST CT: Occasional very small peripheral pleural-based opacities are noted on the right, not changed since 03/19/2022. There is mild discoid atelectasis or scarring at the lung bases, primarily on the right. No pulmonary infiltrate or consolidation or suspicious pulmonary mass density is noted. Heart size is within normal range. No thoracic aortic aneurysm or dissection. No hilar or mediastinal mass lesion or lymphadenopathy. No pericardial or pleural effusion. ABDOMEN/PELVIS CT: There are multiple hepatic cysts of variable size, measuring up to 5.1 cm, stable since 03/19/2022. There were 2 indeterminate left hepatic lesions noted on November 13, 2021 CT abdomen pelvis examination. One situated anteriorly in the lateral left hepatic lobe is less circumscribed and well defined, measuring roughly 13 mm compared to 8 mm on 11/13/2021. The other left hepatic lesion measures approximately 5.5 mm dimension, appearing slightly smaller compared to November 13, 2021. These are indeterminate and may represent metastatic lesions, with possible improvement considering that the larger lesion has assumed density closer to that of normal hepatic parenchyma and the other lesion appears to be slightly smaller. Status post cholecystectomy. There is pneumobilia. Postoperative change from Whipple procedure is again noted. Stable approximately 4.2 mm cystic lesion at the tail of the pancreas, unchanged since 11/2021. Normal morphology of the adrenal glands. The kidneys are unremarkable. No urinary tract calculus or hydroureteronephrosis. The urinary bladder is unremarkable. Status post hysterectomy. Normal caliber of the abdominal aorta. No abdominal or pelvic lymphadenopathy or ascites is noted. Nonobstructed transverse colon and small bowel are noted within the wide ventral abdominal wall hernia. Status post lower anterior cervical spine surgical fusion. Degenerative changes of the thoracic and lumbar spine including severe degenerative disc disease at L4-5. No suspicious osteolytic or osteoblastic lesions are noted. IMPRESSION: Probable interval improvement of 2 suspected left hepatic possible metastases since 11/13/2021 Status post Whipple procedure Stable 4.2 mm pancreatic tail lesion since 11/13/2021 Wide ventral abdominal wall hernia containing transverse colon and small bowel without strangulation or obstruction ASSESSMENT and PLAN: ICD-10-CM ICD-9-CM 1. 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 156.2 66 y.o. female status post pancreaticoduodenectomy without overt evidence of recurrence at today's visit. Recent CT findings appear to represent artifact, and I have recommended MRI liver with Eovistto further characterize these findings. I have also recommended general surgery referral for herniarepair as this is the source of her abdominal complaints. Beyond that, I recommend she return to clinic in [address] chest and pelvis with IV contrast for active surveillance. in kind regards, Phil Mejia MD, FACS, [facility] Surgical Oncology and Endocrine Surgery [facility] Total Time: 20 minutes, over 15 of which were spent in direct conversation and the remainder spent in preparation for today's visit. TION SUPPORT EQUIPMENT REPAIRER documented in this encounter Plan of Treatment Upcoming Encounters Date Type Department Care Team (Late st Contact Info) Description 08/25/2024 2:00 PM AVIATION SUPPORT EQUIPMENT REPAIRER Office Visit [facility] Oncology and Hematology - [place] [address] [facility] [address] [place] [address] Royal Newell MD [address] [facility] [address] [place] [address] documented as of this encounter Visit Diagnoses Diagnosis Primary cancer of ampulla of Vater- Primary documented in this encounter Care Teams Furniture Fabricator Relationship Specialty Start Date End Date Rosibel Muse MD PCP - General Family Practice 05/24/21 05/06/24 documented as of this encounter
--- OUTSIDE RECORDS SUMMARY | 2024-08-17 09:00 | XMS_ITS | Encounter Summary ---
Author Organization [facility] Address [address] [place] [address] Care Team Providers Care Automotive Shop Foreman Name Role Phone Rosibel Muse MD Primary Care Provider Reason for Visit * Reason Comments Surgical Consult Pancreatic fistula r ef by Dr Mejia , patient also referred by Dr Muse forhiatal hernia * Eval and Treat (5-7 Days) - Closed Specialty Diagnoses / Procedures Referred By Divina t Referred To Contact Surgery / General Surgery Diagnoses [place] [address] [address] [place] [address] [address] Referral ID Status Reason Start Date Expiration Date V isits Requested Visits Authorized [id number] Closed CRS to Schedule 08/14/2022 08/14/2023 1 1 Encounter Details Date Type Department Care Team (Late st Contact Info) Description 08/30/2022 10:30 AM FIELD SAMPLING TECHNICIAN Office Visit [facility] General Surgery - [address] [place] [address] [facility] [address] [place] [address] [place] [address] [address] Incarcerated incisional hernia (Primary Dx) Social History Tobacco Use Types [...] Coronavirus/COVID-19? No / Unsure 08/30/2022 10:23 AM FIELD SAMPLING TECHNICIAN documented as of this encounter Last Filed Vital Signs Vital Sign Reading Time Taken Comments Blood Pressure 129/84 08/30/2022 10:31 AM FIELD SAMPLING TECHNICIAN Pulse - - Temperature 36.3 ??C (97.3 ??F) 08/30/2022 10:[address] Respiratory Rate - - Oxygen Saturation - - Inhaled Oxygen Concentration - - Weight 75.3 kg (166 lb) 08/30/2022 10:31 AM FIELD SAMPLING TECHNICIAN Height 157.5 cm (5' 2 ) 08/30/2022 10:31 AM FIELD SAMPLING TECHNICIAN Body Mass Index 30.36 08/30/2022 10:31 AM FIELD SAMPLING TECHNICIAN documented in this encounter Patient Instructions * Attachments The following attachments cannot be sent through Care Everywhere. * BMI: Body Mass Index: Pediatric (Yemeni) documented in this encounter Progress Notes * Lex Novoa, DO - 08/30/2022 8:58 PM CST Patient: Krissy Oneal / 67 y.o. / female : 1955 Chief Complaint: Chief Complaint Patient presents with Surgical Consult Pancreatic fistula ref by Dr Mejia , patient also referred by Dr Muse for hiatal hernia History of Present Illness: Krissy Oneal is a 67 y.o. year-old female who presents with a large incarcerated incisional hernia patient reports that she has had this for several months its progressively getting larger she has near loss of abdominal domain with a large protrusion containing small and large bowel she denies any bowel obstructive type symptoms but describes difficulty with bending twisting even sleeping due to this protrusion and her associated discomfort patient underwent a very complex and difficult Whippleprocedure has completed her chemotherapy and has done quite well in her postoperative phase despitethe complexity and difficulty of her surgery she has undergone a CT scan which I have personally reviewed which does demonstrate significant lateral retraction of her rectus muscle and incisional hernia defect measuring in excess of 13 cm with incarcerated viscera patient is here to assess potential surgical options Patient Active Problem List Diagnosis Code 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 Acute diarrhea R19.7 COPD (chronic obstructive pulmonary disease) J44.9 Acute pancreatitis without necrosis or infection, unspecified K85.90 Benign hypertension I10 Pancreatic mass K86.89 Jaundice, non- R17 Abdominal pain R10.9 Elevated LFTs R79.89 Bacteremia due to Klebsiella pneumoniae R78.81, B96.1 Pancreatic fistula K86.89 Incarcerated incisional hernia K43.0 Past Medical Hx: Past Medical History: Diagnosis Date Allergy Arthritis [...] 01/09/2022 Psychiatric disorder Wears dentures Past Surgical Hx: Past Surgical History: Procedure Laterality Date HX ERCP N/A 05/25/2021 CHOLANGIOPANCREATOGRAPHY RETROGRADE ENDOSCOPIC performed by Omar Gonzalez MD at [facility] GI [facility] HX ERCP 05/2021 at [facility] HX HEART CATHETERIZATION HX HYSTERECTOMY HX PANCREATICODUODENECTOMY N/A 12/29/2021 DIAGNOSTIC LAPAROSCOPY , EXPLORATORY LAPROTOMY PANCREATICODUODENECTOMY (WHIPPLE PROCEDURE) performed by Phil Mejia MD at [facility] OR HX PARTIAL THYROIDECTOMY goiter at age 8 y/o HX PORTACATH PLACEMENT HX SINUS SURGERY x 2 HX SPINAL SURGERY cervical laminectomy HX TUBAL LIGATION MI EDG US EXAM SURGICAL ALTER STOM DUODENUM/JEJUNUM N/A 05/25/2021 ULTRASOUND ENDOSCOPIC performed by Omar Gonzalez MD at [facility] GI LAB MI ESOPHAGOGASTRODUODENOSCOPY TRANSORAL DIAGNOSTIC N/A 05/25/2021 ESOPHAGOGASTRODUODENOSCOPY performed by Omar Gonzalez MD at [facility] Home Medications: Current Outpatient Medications Medication Sig Dispense Refill losartan (COZAAR) 100 mg tablet Take 100 mg by mouth every 24 hours. potassium chloride (KLOR-CON) 20 mEq Extended Release tablet TAKE 1 TABLET BY MOUTH DAILY 100 Tablet 2 naloxone (NARCAN) 4 mg/spray Merrill, Non-Aerosol EMERGENCY USE ONLY: Administer 1 spray (4 mg) in one nostril one time. May repeat in alternating nostrils every 2-3 min until responsive or EMS arrives. 2 Each 3 cyanocobalamin, vitamin B-12, (Vitamin B-12) 5,000 mcg/mL Drops Place 5,000 mcg under tongue daily. iron,carb/vit C/vit B12/folic (IRON 100 PLUS ORAL) Take 100 mg by mouth daily. liquid amLODIPine (NORVASC) 5 mg tablet Take 5 mg by mouth daily. ALPRAZolam (XANAX) 1 mg tablet Take 1 mg by mouth nightly as needed for Anxiety. fluticasone propionate (FLONASE) 50 mcg/spray Merrill, Suspension nasal inhaler Administer 2 Sprays in [...] by inhalation 2 times daily as needed. No current facility-administered medications for this visit. Allergies: Allergies Allergen Reactions Iodinated Contrast Media Itching Sulfa (Sulfonamide Antibiotics) Dizziness and Itching Erythromycin Itching Kiwi Rash and Itching Macrolide Antibiotics Itching Naproxen Sodium Itching Nitrofurantoin Itching Itching Penicillins Itching Family Hx: Family History Problem Relation Name Age of Onset Cancer Father Kidney Disease Mother Harleen Rizzo Kidney failure Prostate Cancer Brother Prostate Cancer Brother Prostate Cancer Brother Cancer Brother Diabetes Brother Social Hx: Social History Socioeconomic History Marital status: Spouse name: Not on file Number of children: Not on file Years of education: Not on file Highest education level: Not on file Occupational History Not on file Tobacco Use Smoking status: Former Packs/day: 0.50 Years: 10.00 Pack years: 5.00 Types: Cigarettes Quit date: 08/03/2014 Years since quittin.0 Smokeless tobacco: Never Vaping Use Vaping Use: Never used Substance and Sexual Activity Alcohol use: Not Currently Drug use: Not Currently Types: Marijuana Comment: Socially Sexual activity: Not Currently Partners: Male control/protection: None Other Topics Concern Not on file Social History Narrative Not on file Social Determinants of Health Financial Resource Strain: Not on file Food Insecurity: Not on file Transportation Needs: Not on file Social Connections: Not on file Intimate Partner Violence: Not on file Housing Stability: Not on file TOBACCO COUNSELING She is not a tobacco user. Review of Systems: Constitutional: negative for fevers, chills, anorexia, weight loss. Skin: no new rashes, no skin lesions HEENT: negative for double vision, hearing loss, epistaxis, sore throat Respiratory: negative for cough, SOB or hemoptysis. Cardiovascular: negative for chest pain, PLASCENCIA Gastrointestinal: negative for blood in stool, constipation, diarrhea Genitourinary: negative for dysuria and hematuria. Musculoskeletal: negative for myalgias, arthralgias Hematologic/lymphatic: negative for easy bruising and bleeding Neurological: negative for dizziness, double vision, headache Psychiatric: negative for anxiety and depression Immunological: Denies hx of TB, Hepatitis, HIV Endocrine: No heat or cold intolerance, no polyuria or polydipsia Physical Exam: BP 129/84 Temp 97.3 ??F (36.3 ??C) Ht 5' 2 (1.575 m) Wt 75.3 kg (166 lb) BMI 30.36 kg/m?? General appearance: Well developed, well nourished female in no acute distress. Patient is awake, alert, oriented, and answers questions appropriately. Head: atraumatic, normocephalic, without obvious abnormality Eyes: conjunctivae/corneas clear, sclera non icteric Neck: trachea is midline, no palpable neck masses, no palpable adenopathy in his james basins Lungs: normal respiratory effort, with normal excursion on inspiration Heart: normal rate, normal PMI Abdomen: Patient has a well-healed midline cicatrix with slight contracture a very large fascial defect with incarcerated intra-abdominal viscera there are no peritoneal signs rebound rigidity or guarding noted hernia is nonreducible Genital: Deferred Extremities: extremities grossly normal, no cyanosis or edema Neurologic: Grossly normal, no focal deficits. Musculoskeletal: no obvious deformity or swelling Labs: Lab Results Component Value Date WBC 9.8 01/08/2022 HGB 8.5 (L) 01/08/2022 HGBPOC 11.5 (L) 12/29/2021 HGBPOC 11.5 (L) 12/29/2021 HGBPOC 11.5 (L) 12/29/2021 HGBPOC 11.5 (L) 12/29/2021 HCT 26.7 (L) 01/08/2022 HCTPOC 35 12/29/2021 PLT 451 (H) 01/08/2022 MCV 84.8 01/08/2022 Lab Results Component Value Date NA 134 (L) 01/08/2022 K 4.1 01/08/2022 CL 99 01/08/2022 CO2 23 01/08/2022 CA 8.4 (L) 01/08/2022 BUN 7 01/08/2022 CREAT 0.70 01/08/2022 GLUCOSE 81 01/08/2022 TOTALPROTEIN 6.3 01/03/2022 ALBUMIN 2.9 (L) 01/03/2022 BILITOTAL 0.2 01/03/2022 ALKPHOS 79 01/03/2022 AST 10 01/03/2022 ALT 15 01/03/2022 ANIONGAP 12 01/08/2022 Assessment: Large incarcerated incisional hernia in excess of 13 cm with significant diastases and loss of abdominal domain Plan: A lengthy discussion was held with patient and patient's spouse regarding her options which do include nonoperative intervention and observation versus hernia repair. Given the size of her defect andprevious operative intervention this will require an open bilateral transverse abdominis and rectusabdominis release with a component separation technique with biologic or bioabsorbable mesh possibly even a bridging technique. I did discuss with patient that this operation is fraught with complications primarily visceral injuries due to anticipated tenacious adhesion formation we thoroughly discussed the risk to benefit ratio of both options. At this juncture patient is electing for surgical repair. This surgery its complexity with all associated underlying complications and risks were thoroughly discussed she is understanding and agreeable and I will proceed with my usual preoperative preparations Signed: Hung Gómez 08/30/2022, 8:58 PM D SAMPLING TECHNICIAN documented in this encounter Plan of Treatment Upcoming Encounters Date Type Department Care Team (Late st Contact Info) Description 08/25/2024 2:00 PM FIELD SAMPLING TECHNICIAN Office Visit [facility] Oncology and Hematology - [place] [address] [facility] [address] [place] [address] Royal Newell MD [address] [facility] [address] [place] [address] documented as of this encounter Visit Diagnoses Diagnosis Incarcerated incisional hernia- Primary Incisional hernia with obstruction documented in this encounter Care Teams Automotive Shop Foreman Relationship Specialty Start Date End Date Rosibel Muse MD PCP - General Family Practice 05/24/21 05/06/24 documented as of this encounter
--- OUTSIDE RECORDS SUMMARY | 2024-08-17 09:00 | XMS_ITS | Encounter Summary ---
Author Organization [facility] [employer] [facility] Address [address] [place] [address] Care Team Providers Care Public Works Supervisor Name Role Phone Rosibel Muse MD Primary Care Provider [phone] Encounter Details Date Type Department Care Team (Late Contact Info) Description 08/13/2022 Orders Only [facility] Oncology and Hematology - [place] [address] [facility] [address] [place] [address] Royal Newell MD [address] [facility] [address] [place] [address] Iron deficiency anemia, unspecified iron [...] Coronavirus/COVID-19? No / Unsure 08/14/2022 2:03 PM OPERATIONS AND MAINTENANCE SPECIALIST documented as of this encounter Plan of Treatment Upcoming Encounters Date Type Department Care Team (Late Contact Info) Description 08/25/2024 2:00 PM OPERATIONS AND MAINTENANCE SPECIALIST Office Visit [facility] Oncology and Hematology - [place] [address] 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
--- OUTSIDE RECORDS SUMMARY | 2024-08-17 09:00 | XMS_ITS | Encounter Summary ---
Author Organization [facility] Address [address] [facility] Attn: Epic Prelude ADT [place] [address] Care Team Providers Care Venetian Blind Machine Operator Name Role Phone Rosibel Muse MD Primary Care Provider [phone] Encounter Details Date Type Department Care Team (Latest Contact Info) Description 08/14/2022 Travel Social History Tobacco Use Types Packs/Day [...] Coronavirus/COVID-19? No / Unsure 08/14/2022 2:03 PM LAUNDRETTE OWNER documented as of this encounter Plan of Treatment Upcoming Encounters Date Type Department Care Team (Late st Contact Info) Description 08/25/2024 2:00 PM LAUNDRETTE OWNER Office Visit [facility] Oncology and Hematology - [place] [address] [facility] [address] [place] [address] Royal Newell MD [address] [facility] [address] [place] [address] documented as of this encounter Visit Diagnoses Not on filedocumented in this encounter Care Teams Venetian Blind Machine Operator Relationship Specialty Start Date End Date Rosibel Muse MD PCP - General Family Practice 05/24/21 05/06/24 documented as of this encounter
--- OUTSIDE RECORDS SUMMARY | 2024-08-17 09:00 | XMS_ITS | Encounter Summary ---
Author Organization [facility] Address [address] [place] [address] Care Team Providers Care Service Line Coordinator Name Role Phone Rosibel Muse MD Primary Care Provider [phone] Reason for Referral * Eval and Treat (5-7 Days) - Closed Specialty Diagnoses / Procedures Referred By Contgabriella t Referred To Contact Surgery / General Surgery Diagnoses [place] [address] [facility] [address] [place] [address] [place] [address] [facility] [address] [place] [address] Referral ID Status Reason Start Date Expiration Date V isits Requested Visits Authorized [id number] Closed CRS to Schedule 08/14/2022 08/14/2023 1 1 OPERATOR Encounter Details Date Type Department Care Team (Late st Contact Info) Description 08/14/2022 Orders Only [facility] Surgical Specialists [facility] [address] [facility] [address] [place] [address] [place] [address] [facility] [address] [place] [address] Pancreatic fistula (Primary Dx) Social [...] Coronavirus/COVID-19? No / Unsure 08/14/2022 2:03 PM CAT OPERATOR documented as of this encounter Plan of Treatment Upcoming Encounters Date Type Department Care Team (Late st Contact Info) Description 08/25/2024 2:00 PM CAT OPERATOR Office Visit [facility] Oncology and Hematology - [place] [address] [facility] [address] [place] [address] Royal Newell MD [address] [facility] [address] [place] [address] Scheduled Referrals Name Type Priority Associated Diagnoses Orde r Schedule AMB REFERRAL TO GENERAL SURGERY Outpatient Referral Routine Pancreatic fistula Ordered: 08/14/2022 documented as of this encounter Visit Diagnoses Diagnosis Pancreatic fistula- Primary Other specified disease of pancreas documented in this encounter Care Teams Service Line Coordinator Relationship Specialty Start Date End Date Rosibel Muse MD PCP - General Family Practice 05/24/21 05/06/24 documented as of this encounter
--- OUTSIDE RECORDS SUMMARY | 2024-08-17 09:00 | XMS_ITS | Encounter Summary ---
Author Organization [facility] [employer] [facility] [facility] Address [address] [place] [address] Care Team Providers Care Business Account Manager Name Role Phone Rosibel Muse MD Primary Care Provider [phone] Reason for Visit * Reason Comments Cancer Encounter Details Date Type Department Care Team (Late st Contact Info) Description 07/25/2022 11:45 AM DIRECTOR OF SOFTWARE ENGINEERING Office Visit [facility] Oncology and Hematology - [place] [address] [place] [address] [address] [place] [address] Royal Newell MD [address] [facility] [address] [place] [address] Ampullary carcinoma (Primary Dx) Social [...] Coronavirus/COVID-19? No / Unsure 07/25/2022 11:05 AM DIRECTOR OF SOFTWARE ENGINEERING documented as of this encounter Last Filed Vital Signs Vital Sign Reading Time Taken Comments Blood Pressure 137/82 07/25/2022 11:29 AM DIRECTOR OF SOFTWARE ENGINEERING Pulse 94 07/25/2022 11:29 AM DIRECTOR OF SOFTWARE ENGINEERING Temperature 36.7 ??C (98 ??F) 07/25/2022 11: 29 AM DIRECTOR OF SOFTWARE ENGINEERING Respiratory Rate 16 07/25/2022 11:2 9 AM DIRECTOR OF SOFTWARE ENGINEERING Oxygen Saturation 95% 07/25/2022 11: 29 AM DIRECTOR OF SOFTWARE ENGINEERING Inhaled Oxygen Concentration - - Weight 73.8 kg (162 lb 11.2 oz) 022 11:29 AM DIRECTOR OF SOFTWARE ENGINEERING Height - - Body Mass Index 29.76 04/27/2022 9:26 AM CDT documented in this encounter Progress Notes * Royal Newell MD - 07/25/2022 12:14 PM CST HEMATOLOGY / ONCOLOGY PROGRESS NOTE Patient Identification: Name: Krissy Jaquez White Age: 66 y.o. 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 EGD done on May 22 showed malignant appearing duodenal mass and biopsies were taken. Pathology came back positive for gastritis. [facility] where she had EUS and ERCP done with Dr. Medeiros. 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 Neoadjuvant chemotherapy with modified FOLFIRINOX regimen started 07/11/2021. Received cycle 8/8 onOctober 31, 2021 with 20% dose reduction due to toxicity. Pancreaticoduodenectomy done on December 29, 2021. SUBJECTIVE Patient came into the office for follow-up visit. She is complaining of some abdominal distention and bloating. She has some indigestion. Denies any nausea vomiting. Denies any diarrhea. No other newcomplaints. Review of system Constitutional: denies fevers, sweats, patient has gained 10 pound weight. Mild tiredness and fatigue. HEENT: denies sinus congestion, hearing or vision problems Respiratory: denies cough, dyspnea, wheeze Cardiovascular: denies chest pain, exertional chest pressure/discomfort, nausea, syncope, shortnessof breath GI: Complain of indigestion with gas and bloating. Denies any nausea vomiting and diarrhea. : denies dysuria, frequency, incontinence, urgency Integumentary system: no lymphadenopathy, sweats, flushing Musculoskeletal: denies: myalgia, arthralgia Neurological: denies blurry or disturbed vision, denies any neuropathy. Skin: No lumps, bumps or rashes. 12 point review system was reviewed and as above Objective: Vital signs in last 24 hours: [...] No lymphadenopathy Neuro: No obvious focal deficit Examination as above ECOG performance status 1 PATH [...] showed WBC 6.5 hemoglobin 11.5 platelet 254,000 Assessment: Plan: Patient Active Problem List Diagnosis Date Noted Pancreatic fistula 01/09/2022 Bacteremia due to Klebsiella [...] reviewed that showed no evidence of malignancy. CT scan done on July 17 showed improvement and possible liver metastasis and a stable findings otherwise. Labs are stable with improvement in hemoglobin. I plan to see her back in [address] scan. Bloating and indigestion. I will start her on Creon. Anemia. Hemoglobin has improved. She will continue vitamin B12 and oral iron. Follow-up in 3 months. TOBACCO COUNSELING She is not a tobacco user. 07/25/2022 Royal Newell MD CTOR OF SOFTWARE ENGINEERING documented in this encounter Plan of Treatment Upcoming Encounters Date Type Department Care Team (Late st Contact Info) Description 08/25/2024 2:00 PM DIRECTOR OF SOFTWARE ENGINEERING Office Visit [facility] Oncology and Hematology [facility] [address] [place] [id number] Royal Newell MD [facility] [address] [place] [address] documented as of this encounter Visit Diagnoses Diagnosis Ampullary carcinoma- Primary Malignant neoplasm of ampulla of Vater documented in this encounter Care Teams Business Account Manager Relationship Specialty Start Date End Date Rosibel Muse MD PCP - General Family Practice 05/24/21 05/06/24 documented as of this encounter
--- OUTSIDE RECORDS SUMMARY | 2024-08-17 09:00 | XMS_ITS | Encounter Summary ---
Author Organization [facility] [employer] [facility] Address [address] [place] [address] Care Team Providers Care A Operator Name Role Phone Rosibel Muse MD Primary Care Provider [phone] Encounter Details Date Type Department Care Team (Late Contact Info) Description 09/03/2022 Orders Only [facility] Oncology and Hematology - [place] [address] [place] [address] Royal Newell MD [address] [facility] [employer] [address] [place] [address] Iron deficiency anemia, unspecified iron [...] Coronavirus/COVID-19? No / Unsure 08/30/2022 10:23 AM WELDER PRODUCTION LINE COMBINATION documented as of this encounter Plan of Treatment Upcoming Encounters Date Type Department Care Team (Late Contact Info) Description 08/25/2024 2:00 PM WELDER PRODUCTION LINE COMBINATION Office Visit [facility] Oncology and Hematology - [place] [address] [place] [address] Royal Newell MD [address] [facility] [address] [place] [address] documented as of this encounter Visit Diagnoses Diagnosis Iron deficiency anemia, unspecified iron deficiency anemia type documented in this encounter Care Teams A Operator Relationship Specialty Start Date End Date Rosibel Muse MD PCP - General Family Practice 05/24/21 05/06/24 documented as of this encounter
--- OUTSIDE RECORDS SUMMARY | 2024-08-17 09:00 | XMS_ITS | Encounter Summary ---
Author Organization [facility] [employer] [facility] Address [address] [place] [address] Care Team Providers Care Magnesium Mill Operator Name Role Phone Rosibel Muse MD Primary Care Provider [phone] Encounter Details Date Type Department Care Team (Late Contact Info) Description 08/27/2022 Orders Only [facility] Oncology and Hematology - [place] [address] [facility] [address] [place] [address] Royal Newell MD [address] [facility] [address] [place] [address] Iron deficiency anemia, unspecified iron [...] Coronavirus/COVID-19? No / Unsure 08/30/2022 10:23 AM CURRENCY EXCHANGE SPECIALIST documented as of this encounter Plan of Treatment Upcoming Encounters Date Type Department Care Team (Late Contact Info) Description 08/25/2024 2:00 PM CURRENCY EXCHANGE SPECIALIST Office Visit [facility] Oncology and Hematology - [place] [address] [facility] [address] [place] [address] Royal Newell MD [address] [facility] [address] [place] [address] documented as of this encounter Visit Diagnoses Diagnosis Iron deficiency anemia, unspecified iron deficiency anemia type Primary cancer of ampulla of Vater Ampullary carcinoma Malignant neoplasm of ampulla of Vater documented in this encounter Care Teams Magnesium Mill Operator Relationship Specialty Start Date End Date Rosibel Muse MD PCP - General Family Practice 05/24/21 05/06/24 documented as of this encounter
--- OUTSIDE RECORDS SUMMARY | 2024-08-17 09:00 | XMS_ITS | Encounter Summary ---
Author Organization [facility] [employer] [facility] Address [address] [place] [address] Care Team Providers Care Skimmer Reverberatory Name Role Phone Rosibel Muse MD Primary Care Provider [phone] Encounter Details Date Type Department Care Team (Late Contact Info) Description 10/01/2022 Orders Only [facility] Oncology and Hematology [place] [address] [place] [address] Royal Newell MD [address] [place] [address] Iron deficiency anemia, unspecified iron deficiency [...] (Late Contact Info) Description 08/25/2024 2:00 PM DISABILITY BENEFITS SPECIALIST Office Visit [facility] Oncology and Hematology - [place] [address] [place] [address] Royal Newell MD [address] [place] [address] documented as of this encounter Visit Diagnoses Diagnosis Iron deficiency anemia, unspecified iron deficiency anemia type documented in this encounter Care Teams Skimmer Reverberatory Relationship Specialty Start Date End Date Rosibel Muse MD PCP - General Family Practice 05/24/21 05/06/24 documented as of this encounter
--- OUTSIDE RECORDS SUMMARY | 2024-08-17 09:00 | XMS_ITS | Encounter Summary ---
Author Organization [facility] [employer] [facility] Address [address] [place] [address] Care Team Providers Care Apartment Rental Agent Name Role Phone Rosibel Muse MD Primary Care Provider [phone] Encounter Details Date Type Department Care Team (Late Contact Info) Description 07/23/2022 Orders Only [facility] Oncology and Hematology - [place] [address] [place] [address] Royal Newell MD [address] [facility] [employer] [address] [place] [address] Ampullary carcinoma; Iron deficiency anemia, unspecified iron deficiency anemia [...] Coronavirus/COVID-19? No / Unsure 07/25/2022 11:05 AM MONEY ROOM SUPERVISOR documented as of this encounter Plan of Treatment Upcoming Encounters Date Type Department Care Team (Late Contact Info) Description 08/25/2024 2:00 PM MONEY ROOM SUPERVISOR Office Visit [facility] Oncology and Hematology - [place] [address] [place] [address] Royal Newell MD [address] [facility] [address] [place] [address] documented as of this encounter Visit Diagnoses Diagnosis Ampullary carcinoma Malignant neoplasm of ampulla of Vater Iron deficiency anemia, unspecified iron deficiency anemia type documented in this encounter Care Teams Apartment Rental Agent Relationship Specialty Start Date End Date Rosibel Muse MD PCP - General Family Practice 05/24/21 05/06/24 documented as of this encounter
--- OUTSIDE RECORDS SUMMARY | 2024-08-17 09:01 | XMS_ITS | Encounter Summary ---
Author Organization [facility] [employer] [facility] Address [address] [place] [address] Care Team Providers Care Event Manager Name Role Phone Rosibel Muse MD Primary Care Provider [phone] Encounter Details Date Type Department Care Team ([facility] Contact Info) Description 07/17/2022 Orders Only [facility] Oncology and Hematology - [place] [address] [place] [address] Royal Newell MD [address] [facility] [employer] [address] [place] [address] Social History Tobacco Use Types [...] Coronavirus/COVID-19? No / Unsure 07/12/2022 1:33 PM HEALTH CARE ASSISTANT documented as of this encounter Plan of Treatment Upcoming Encounters Date Type Department Care Team (Late Contact Info) Description 08/25/2024 2:00 PM HEALTH CARE ASSISTANT Office Visit [facility] Oncology and Hematology - [place] [address] [place] [address] Royal Newell MD [address] [facility] [address] [place] [address] documented as of this encounter Procedures Procedure Name Priority Date/Time Associated Diagnosis Comments CREATININE Routine 07/17/2022 documented in this encounter Results * CREATININE (07/17/2022) Blood Royal Newell MD CHEMISTRY ORDERABLES documented in this encounter Visit Diagnoses Not on filedocumented in this encounter Care Teams Event Manager Relationship Specialty Start Date End Date Rosibel Muse MD PCP - General Family Practice 05/24/21 05/06/24 documented as of this encounter
--- OUTSIDE RECORDS SUMMARY | 2024-08-17 09:02 | XMS_ITS | Encounter Summary ---
Author Organization [facility] [employer] [facility] Address [address] [place] [address] Care Team Providers Care Woodwind Reeds Cutter Name Role Phone Rosibel Muse MD Primary Care Provider [phone] Encounter Details Date Type Department Care Team (Late Contact Info) Description 02/26/2022 Orders Only [facility] Oncology and Hematology [facility] [address] [place] [address] Royal Newell MD [facility] [email or web address] [address] [place] [address] Iron deficiency anemia, unspecified iron deficiency [...] (Late Contact Info) Description 08/25/2024 2:00 PM CAKE PRESS OPERATOR HELPER Office Visit [facility] Oncology and Hematology [facility] [address] [place] [address] Royal Newell MD [address] [email or web address] [address] [place] [address] documented as of this encounter Visit Diagnoses Diagnosis Iron deficiency anemia, unspecified iron deficiency anemia type Primary cancer of ampulla of Vater Ampullary carcinoma Malignant neoplasm of ampulla of Vater documented in this encounter Care Teams Woodwind Reeds Cutter Relationship Specialty Start Date End Date Rosibel Muse MD PCP - General Family Practice 05/24/21 05/06/24 documented as of this encounter
--- OUTSIDE RECORDS SUMMARY | 2024-08-17 09:02 | XMS_ITS | Encounter Summary ---
Author Organization [facility] Address [address] [place] [address] Care Team Providers Care Cemetery Keeper Name Role Phone Rosibel Muse MD Primary Care Provider [phone] Reason for Visit * Reason Comments Dressing Change Encounter Details Date Type Department Care Team (Latest Contact Info) Description 01/12/2022 9:00 AM CDT Clinical Support [facility] [address] [address] Ronda Worrell, RN Primary cancer of ampulla of Vater (Primary Dx); Pancreatic fistula Social History Tobacco Use Types [...] suspected to have Coronavirus/COVID-19? No / Unsure 01/12/2022 8:53 AM CDT documented as of this encounter Progress Notes * Ronda Worrell, RN - 01/12/2022 9:46 AM CDT Patient arrive to office accompanied by family with complaint of dressing change. Upon assessment patient Prevena wound vac off per request of Dr. Mejia. RN examine collection of fluid to bottom ofwound vac dressing to be serosanguinous in nature. RN, with assist of Yohana, remove wound vac dressing and provide cleansing to skin. Patient incision appears to be healing; no pus/skin breakdown/erythema noted. Wound only appears to be weeping around navel and towards the top of her incision. RN place call to Dr. Mejia in the OR for confirmation on how to proceed. RN provide MD with full assessment who then recommended reapplication of Prevena wound vac. RN noted and new Prevena wound vac reapplied with assist of Yohana. Patient tolerate application well and denies any pain. Prevena woundvac turned on and working; suction noted, but no output as of yet. RN provided patient with supplies for wound vac and JAIME drain care. Patient verbalize understanding of all instructions and confirm follow up appt with Dr. Mejia on Saturday at 1:30pm. documented in this encounter Plan of Treatment Upcoming Encounters Date Type Department Care Team (Late st Contact Info) Description 08/25/2024 2:00 PM CAREER DEVELOPMENT MANAGER Office Visit [facility] Oncology and Hematology - [place] [address] [facility] [address] [place] [address] Royal Newell MD [address] [facility] [address] [place] [address] documented as of this encounter Visit Diagnoses Diagnosis Primary cancer of ampulla of Vater- Primary Pancreatic fistula Other specified disease of pancreas documented in this encounter Care Teams Cemetery Keeper Relationship Specialty Start Date End Date Rosibel Muse MD PCP - General Family Practice 05/24/21 05/06/24 documented as of this encounter
--- OUTSIDE RECORDS SUMMARY | 2024-08-17 09:02 | XMS_ITS | Encounter Summary ---
Author Organization [facility] Address [address] [facility] [address] [place]: Epic Prelude ADT [place] [address] Care Team Providers Care Research Program Manager Name Role Phone Rosibel Muse MD Primary Care Provider Encounter Details Date Type Department Care Team (Latest Contact Info) Description 01/16/2022 Travel Social History Tobacco Use Types Packs/Day [...] st Contact Info) Description 08/25/2024 2:00 PM BLOWER FEEDER DYED RAW STOCK Office Visit [facility] Oncology and Hematology - [place] [address] [facility] [address] [place] [address] Royal Newell MD [address] [facility] [address] [place] [address] documented as of this encounter Visit Diagnoses Not on filedocumented in this encounter Care Teams Research Program Manager Relationship Specialty Start Date End Date Rosibel Muse MD PCP - General Family Practice 05/24/21 05/06/24 documented as of this encounter
--- OUTSIDE RECORDS SUMMARY | 2024-08-17 09:02 | XMS_ITS | Encounter Summary ---
Author Organization [facility] Address [address] [place] [address] Care Team Providers Care Outside Cutter Name Role Phone Rosibel Muse MD Primary Care Provider [phone] Reason for Visit * Reason Comments Post-op Visit Encounter Details Date Type Department Care Team (Late st Contact Info) Description 01/09/2022 3:30 PM CDT Office Visit [facility] Surgical Special[facility] [address] [facility] [address] [place] [address] [place] [address] [facility] [address] [place] [address] Primary cancer of ampulla of [...] suspected to have Coronavirus/COVID-19? No / Unsure 01/09/2022 3:31 PM CDT documented as of this encounter Last Filed Vital Signs Vital Sign Reading Time Taken Comments Blood Pressure - - Pulse 93 01/09/2022 3:38 PM CDT Temperature 36.6 ??C (97.8 ??F) 01/09/2022 3:38 PM CD T Respiratory Rate - - Oxygen Saturation 99% 01/09/2022 3:38 PM CDT Inhaled Oxygen Concentration - - Weight 67.1 kg (148 lb) 01/09/2022 3:38 PM CDT Height 157.5 cm (5' 2 ) 01/09/2022 3:38 PM CDT Body Mass Index 27.07 01/09/2022 3:38 PM CDT documented in this encounter Progress Notes * Phil Mejia MD - 01/09/2022 6:01 PM CDT Images from the original note were not included. HISTORY OF PRESENT ILLNESS Krissy Oneal is a 66 y.o. female presents with chief complaint of Post-op Visit Subjective Interval history 01/09/22January returns today as a [...] REVIEW OF SYSTEMS Review of Systems Constitutional: Positive for appetite change, fatigue and unexpected weight change. Negative for chills and fever. HENT: Negative for trouble swallowing and voice change. Respiratory: Negative for chest tightness, cough and shortness of breath. Cardiovascular: Negative for chest pain, leg swelling and palpitations. Gastrointestinal: Negative for abdominal pain, constipation, diarrhea, nausea and vomiting. Past Medical History: Diagnosis Date ??? Asthma ??? Back pain bulging disc ??? COPD (chronic obstructive pulmonary disease) pt. denies ??? HTN (hypertension) ??? Hyperlipidemia ??? Hyperthyroidism goiter as a achild ??? Latex sensitivity kiwi ??? Malignant neoplasm pancreas ??? Obstructive sleep apnea CPAP- no longer using didn't work ??? 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 Psychiatric disorder ??? Wears dentures Past Surgical History: Procedure Laterality Date ??? HX ERCP N/A 05/25/2021 CHOLANGIOPANCREATOGRAPHY RETROGRADE ENDOSCOPIC performed by Omar Gonzalez MD at [facility] ??? HX ERCP 05/2021 [facility] ??? HX HEART CATHETERIZATION ??? HX HYSTERECTOMY ??? HX PANCREATICODUODENECTOMY N/A 12/29/2021 DIAGNOSTIC LAPAROSCOPY , EXPLORATORY LAPROTOMY PANCREATICODUODENECTOMY (WHIPPLE PROCEDURE) performed by Phil Mejia MD at [facility] OR ??? HX PARTIAL THYROIDECTOMY goiter at age 8 y/o ??? HX PORTACATH PLACEMENT ??? HX SINUS SURGERY x 2 ??? HX SPINAL SURGERY cervical laminectomy ??? HX TUBAL LIGATION ??? MO EDG US EXAM SURGICAL ALTER STOM DUODENUM/JEJUNUM N/A 05/25/2021 ULTRASOUND ENDOSCOPIC performed by Omar Gonzalez MD at [facility] ??? MO ESOPHAGOGASTRODUODENOSCOPY TRANSORAL DIAGNOSTIC N/A 05/25/2021 ESOPHAGOGASTRODUODENOSCOPY performed by Omar Gonzalez MD at [facility] Social History Tobacco Use ??? Smoking status: Former Smoker Packs/day: 1.00 Years: 30.00 Pack years: 30.00 Types: Cigarettes Quit date: 08/12/2003 Years since quittin.4 ??? Smokeless tobacco: Never Used Vaping Use ??? Vaping Use: Never used Substance Use Topics ??? Alcohol use: Not Currently ??? Drug use: Not Currently Types: Marijuana Comment: 20 years ago Family History Problem Relation Name Age of Onset ??? Cancer Father ??? Kidney Disease Mother ??? Prostate Cancer Brother ??? Prostate Cancer Brother ??? Prostate Cancer Brother ??? Cancer Brother ??? Diabetes Brother Current Outpatient Medications Medication Instructions ??? acetaminophen (TYLENOL) 650 mg, Oral, EVERY 6 HOURS ??? albuterol sulfate 90 mcg/Actuation inhaler 2 Puffs, Inhalation, EVERY 4 HOURS PRN ??? ALPRAZolam (XANAX) 1 mg, Oral, NIGHTLY PRN ??? amLODIPine (NORVASC) 5 mg, Oral, DAILY ??? budesonide-formoteroL (SYMBICORT) 160-4.5 mcg/actuation HFA Aerosol Inhaler 2 Puffs, Inhalation, TWO TIMES DAILY PRN ??? fluticasone propionate (FLONASE) 50 mcg/spray Pomerene, Suspension nasal inhaler 2 Sprays, Both Nostrils, DAILY PRN ??? hydroCHLOROthiazide 37.5 mg, Oral, DAILY, Takes 1 1/2 tablets ??? iron,carb/vit C/vit B12/folic (IRON 100 PLUS ORAL) 100 mg, Oral, DAILY, liquid ??? naloxone (NARCAN) 4 mg/spray Pomerene, Non-Aerosol EMERGENCY USE ONLY: Administer 1 spray (4 mg) in one nostril one time. May repeat in alternating nostrils every 2-3 min until responsive or EMS arrives. ??? oxyCODONE (ROXICODONE) 5 mg, Oral, EVERY 6 HOURS PRN ??? potassium chloride (KLOR-CON) 20 mEq Extended Release tablet 20 mEq, Oral, DAILY ??? quinapriL (ACCUPRIL) 80 mg, Oral, DAILY ??? sertraline (ZOLOFT) 50 mg, Oral, DAILY AT BEDTIME ??? simvastatin (ZOCOR) 20 mg, Oral, DAILY AT BEDTIME ??? Vitamin B-12 5,000 mcg, Sublingual, DAILY Allergies Allergen Reactions ??? Iodinated Contrast Media Itching ??? Sulfa (Sulfonamide Antibiotics) Dizziness and Itching ??? Erythromycin Itching ??? Kiwi Rash and Itching ??? Macrolide Antibiotics Itching ??? Naproxen Sodium Itching ??? Nitrofurantoin Itching Itching ??? Penicillins Itching Objective PHYSICAL EXAM Vitals: 01/09/22 1538 Pulse: 93 Temp: 97.8 ??F (36.6 ??C) SpO2: 99% Physical Exam Vitals reviewed. Constitutional: General: She is not in acute distress. Appearance: Normal appearance. She is normal weight. She is not ill-appearing or toxic-appearing. HENT: Head: Normocephalic and atraumatic. Eyes: General: No scleral icterus. Conjunctiva/sclera: Conjunctivae normal. Cardiovascular: Rate and Rhythm: Normal rate. Pulmonary: Effort: Pulmonary effort is normal. Abdominal: General: Abdomen is flat. Skin: Coloration: Skin is not jaundiced. Neurological: General: No focal deficit present. Mental Status: She is alert and oriented to person, place, and time. Mental status is at baseline. Psychiatric: Mood and Affect: Mood normal. Behavior: Behavior normal. Thought Content: Thought content normal. Judgment: Judgment normal. IMAGING: Outside imaging reviewed. No evidence of distant disease and stent observed in place. ASSESSMENT and PLAN: ICD-10-CM ICD-9-CM 1. 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 Pancreatic fistula K86.89 577.8 66 y.o. female status post pancreaticoduodenectomy with grade a pancreatic fistula. Midline incision draining serous fluid either consistent with seroma or pinhole fascial dehiscence as volume has been overall low. Continue local wound therapy with close suction vacuum-assisted drain. Patient to follow-up shortly. Continue JAIME drainage of pancreatic fistula at this time. in kind regards, Phil Mejia MD, FACS, [facility] Surgical Oncology and Endocrine Surgery [facility] Total Time: 20 minutes, over 15 of which were spent in direct conversation and the remainder spent in preparation for today's visit. documented in this encounter Plan of Treatment Upcoming Encounters Date Type Department Care Team (Late st Contact Info) Description 08/25/2024 2:00 PM AUTOCLAVE OPERATOR Office Visit [facility] Oncology and Hematology - [place] [address] [facility] [address] [place] [address] Royal Newell MD [address] [facility] [address] [place] [address] documented as of this encounter Visit Diagnoses Diagnosis Primary cancer of ampulla of Vater- Primary Pancreatic fistula Other specified disease of pancreas documented in this encounter Care Teams Outside Cutter Relationship Specialty Start Date End Date Rosibel Muse MD PCP - General Family Practice 05/24/21 05/06/24 documented as of this encounter
--- OUTSIDE RECORDS SUMMARY | 2024-08-17 09:02 | XMS_ITS | Encounter Summary ---
Author Organization [facility] Address [address] [place] [address] Care Team Providers Care Supervisor Publications Name Role Phone Rosibel Muse MD Primary Care Provider [phone] Reason for Visit * Reason Onset Date Comments Dressing Change 01/15/2022 Encounter Details Date Type Department Care Team (Late st Contact Info) Description 01/15/2022 Telephone [facility] [address] [address] Ronda Worrell, RN Dressing Change Social History Tobacco Use Types Packs/Day Years [...] AM CDT documented as of this encounter Miscellaneous Notes * Telephone Encounter - Ronda Worrell, RN - 01/15/2022 8:[address] call to patient per Dr. Mejia request. Patient reports gauze dressing has remained in place with very little drainage to navel area. Output remains serosanguinous in nature. Patient deniesany pain or fever. Dr. Mejia updated at this time. ----- Message from Phil Mejia MD sent at 01/14/2022 8:50 PM CDT ----- Vac filled up Saturday night and she called Saturday afternoon. I told her to take it off and just use gauze dressings to catch the fluid. Please check on her tomorrow morning, Thanks! -Smooth documented in this encounter Plan of Treatment Upcoming Encounters Date Type Department Care Team (Late st Contact Info) Description 08/25/2024 2:00 PM COMPLETIONS ENGINEER Office Visit [facility] Oncology and Hematology - [place] [address] [place] [address] [facility] [address] [place] [address] Royal Newell MD [address] [facility] [address] [place] [address] documented as of this encounter Visit Diagnoses Not on filedocumented in this encounter Care Teams Supervisor Publications Relationship Specialty Start Date End Date Rosibel Muse MD PCP - General Family Practice 05/24/21 05/06/24 documented as of this encounter
--- OUTSIDE RECORDS SUMMARY | 2024-08-17 09:02 | XMS_ITS | Encounter Summary ---
Author Organization [facility] [employer] [facility] Address [address] [place] [address] Care Team Providers Care Harvest Worker Name Role Phone Rosibel Muse MD Primary Care Provider [phone] Encounter Details Date Type Department Care Team (Late Contact Info) Description 04/24/2022 Orders Only [facility] Oncology and Hematology - [place] [address] [place] [address] Royal Newell MD [address] [facility] [employer] [address] [place] [address] Ampullary carcinoma; Iron deficiency anemia, [...] suspected to have Coronavirus/COVID-19? 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
--- OUTSIDE RECORDS SUMMARY | 2024-08-17 09:02 | XMS_ITS | Encounter Summary ---
Author Organization [facility] [employer] [facility] Address [address] [place] [address] Care Team Providers Care Day Care Teacher Name Role Phone Rosibel Muse MD Primary Care Provider [phone] Encounter Details Date Type Department Care Team (Late Contact Info) Description 06/25/2022 Orders Only [facility] Oncology and Hematology - [place] [address] [place] [address] Royal Newell MD [address] [facility] [address] [place] [address] Ampullary carcinoma; Iron deficiency anemia, [...] was confirmed or suspected to have Coronavirus/COVID-19? 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
--- OUTSIDE RECORDS SUMMARY | 2024-08-17 09:02 | XMS_ITS | Encounter Summary ---
Author Organization [facility] Address [address] [place] [address] Care Team Providers Care Mobile Marketing Specialist Name Role Phone Rosibel Muse MD Primary Care Provider [phone] Reason for Referral * CT Scan (Routine) - Closed Specialty Diagnoses / Procedures Referred By Contac t Referred To Contact Radiology Diagnoses Primary cancer of ampulla of Vater Pancreatic fistula Procedures CT CHEST [place] [address] [address] [facility] [address] Scan [address] [address] [place] [address] Referral ID Status Reason Start Date Expiration Date Visits Re quested Visits Authorized [id number] Closed 01/23/2022 02/23/2023 1 1 Encounter Details Date Type Department Care Team (Late st Contact Info) Description 01/23/2022 Orders Only [facility] Surgical Specialists [facility] [address] [facility] [address] [place] [address] [place] [address] [facility] [address] [place] [address] Primary cancer of ampulla of [...] suspected to have Coronavirus/COVID-19? No / Unsure 01/23/2022 1:27 PM CDT documented as of this encounter Plan of Treatment Upcoming Encounters Date Type Department Care Team (Late st Contact Info) Description 08/25/2024 2:00 PM LENS AND FRAMES PRESCRIPTION CLERK Office Visit [facility] Oncology and Hematology [facility] [address] [facility] [address] [place] [address] Royal Newell MD [address] [facility] [address] [place] [address] Scheduled Orders Name Type Priority Associated Diagnoses Orde r Schedule CT CHEST ABDOMEN PELVIS W CONT Imaging Routine Primary cancer of ampulla of Vater Pancreatic fistula Expected: 07/16/2022, Expires: 01/23/2023 CANCER ANTIGEN 19-9 Lab Routine Primary cancer of ampulla of Vater Pancreatic fistula Expected: 07/16/2022, Expires: 01/23/2023 documented as of this encounter Visit Diagnoses Diagnosis Primary cancer of ampulla of Vater- Primary Pancreatic fistula Other specified disease of pancreas documented in this encounter Care Teams Mobile Marketing Specialist Relationship Specialty Start Date End Date Rosibel Muse MD PCP - General Family Practice 05/24/21 05/06/24 documented as of this encounter
--- OUTSIDE RECORDS SUMMARY | 2024-08-17 09:02 | XMS_ITS | Encounter Summary ---
Author Organization [facility] Address [address] [facility] Attn: Epic Prelude ADT NIK [place] [address] Care Team Providers Care Budget Analyst Name Role Phone Rosibel Muse MD Primary Care Provider [phone] Encounter Details Date Type Department Care Team (Latest Contact Info) Description 07/12/2022 Travel Social History Tobacco Use Types Packs/Day [...] Coronavirus/COVID-19? No / Unsure 07/12/2022 1:33 PM REFERRAL SPECIALIST documented as of this encounter Plan of Treatment Upcoming Encounters Date Type Department Care Team (Late st Contact Info) Description 08/25/2024 2:00 PM REFERRAL SPECIALIST Office Visit [facility] Oncology and Hematology - [place] [address] [facility] [address] [place] [address] Royal Newell MD [address] [facility] [address] [place] [address] documented as of this encounter Visit Diagnoses Not on filedocumented in this encounter Care Teams Budget Analyst Relationship Specialty Start Date End Date Rosibel Muse MD PCP - General Family Practice 05/24/21 05/06/24 documented as of this encounter
--- OUTSIDE RECORDS SUMMARY | 2024-08-17 09:02 | XMS_ITS | Encounter Summary ---
Author Organization [facility] [employer] [facility] Address [address] [place] [address] Care Team Providers Care Retail Loss Prevention Investigator Name Role Phone Rosibel Muse MD Primary Care Provider [phone] Encounter Details Date Type Department Care Team (Late Contact Info) Description 07/16/2022 Orders Only [facility] Oncology and Hematology - [place] [address] [email or web address] [address] [place] [address] Royal Newell MD [address] [facility] [address] [place] [address] Iron deficiency anemia, unspecified iron [...] Coronavirus/COVID-19? No / Unsure 07/12/2022 1:33 PM FINISHING TUNNEL OPERATOR documented as of this encounter Plan of Treatment Upcoming Encounters Date Type Department Care Team (Late Contact Info) Description 08/25/2024 2:00 PM FINISHING TUNNEL OPERATOR Office Visit [facility] Oncology and Hematology - [place] [address] [email or web address] [address] [place] [address] Royal Newell MD [address] [facility] [address] [place] [address] documented as of this encounter Visit Diagnoses Diagnosis Iron deficiency anemia, unspecified iron deficiency anemia type 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
--- OUTSIDE RECORDS SUMMARY | 2024-08-17 09:02 | XMS_ITS | Encounter Summary ---
Author Organization [facility] [employer] [facility] Address [address] [place] [address] Care Team Providers Care Taper Printed Circuit Layout Name Role Phone Rosibel Muse MD Primary Care Provider [phone] Encounter Details Date Type Department Care Team ([facility] Contact Info) Description 01/08/2022 Orders Only [facility] Oncology and Hematology - [place] [address] [place] [address] Royal Newell MD [address] [facility] [employer] [address] [place] [address] Ampullary carcinoma Social History Tobacco Use Types [...] suspected to have Coronavirus/COVID-19? 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
--- OUTSIDE RECORDS SUMMARY | 2024-08-17 09:02 | XMS_ITS | Encounter Summary ---
Author Organization [facility] [employer] [facility] Address [address] [place] [address] Care Team Providers Care Store Sales Leader Name Role Phone Rosibel Muse MD Primary Care Provider [phone] Encounter Details Date Type Department Care Team ([facility] Contact Info) Description 01/22/2022 Orders Only [facility] Oncology and Hematology - [place] [address] [place] [address] Royal Newell MD [address] [facility] [address] [place] [address] Ampullary carcinoma Social History Tobacco [...] (Late Contact Info) Description 08/25/2024 2:00 PM CABLE TELEVISION INSTALLER Office Visit [facility] Oncology and Hematology - [place] [address] [place] [address] Royal Newell MD [address] [facility] [address] [place] [address] documented as of this encounter Visit Diagnoses Diagnosis 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
--- OUTSIDE RECORDS SUMMARY | 2024-08-17 09:02 | XMS_ITS | Encounter Summary ---
Author Organization [facility] [employer] [facility] Address [address] [place] [address] Care Team Providers Care Refractory Furnace Designer Name Role Phone Rosibel Muse MD Primary Care Provider [phone] Reason for Visit * Reason Comments Medication Refill Encounter Details Date Type Department Care Team (Late Contact Info) Description 02/26/2022 Refill [facility] Oncology and Hematology - [place] [address] [place] [address] Royal Newell MD [facility] [employer] [address] [place] [address] Social History Tobacco Use Types Packs/Day [...] Contact Info) Description 08/25/2024 2:00 PM MANAGER CLINIC Office Visit [facility] Oncology and Hematology - [place] [address] [place] [address] Royal Newell MD [address] [employer] [address] [place] [address] documented as of this encounter Visit Diagnoses Not on filedocumented in this encounter Care Teams Refractory Furnace Designer Relationship Specialty Start Date End Date Rosibel Muse MD PCP - General Family Practice 05/24/21 05/06/24 documented as of this encounter
--- OUTSIDE RECORDS SUMMARY | 2024-08-17 09:02 | XMS_ITS | Encounter Summary ---
Author Organization [facility] [employer] [facility] Address [address] [place] [address] Care Team Providers Care Tennis Coach Name Role Phone Rosibel Muse MD Primary Care Provider [phone] Encounter Details Date Type Department Care Team (Late Contact Info) Description 01/15/2022 Orders Only [facility] Oncology and Hematology - [place] [address] [facility] [address] [place] [address] Royal Newell MD [address] [facility] [address] [place] [address] Iron deficiency anemia, unspecified iron [...] suspected to have Coronavirus/COVID-19? No / Unsure 01/18/2022 2:23 PM CDT documented as of this encounter Plan of Treatment Upcoming Encounters Date Type Department Care Team (Late Contact Info) Description 08/25/2024 2:00 PM COMMUNITY SERVICE ORGANIZATION DIRECTOR Office Visit [facility] Oncology and Hematology - [place] [address] [facility] [address] [place] [address] Royal Newell MD [address] [facility] [address] [place] [address] documented as of this encounter Visit Diagnoses Diagnosis Iron deficiency anemia, unspecified iron deficiency anemia type 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
--- OUTSIDE RECORDS SUMMARY | 2024-08-17 09:02 | XMS_ITS | Encounter Summary ---
Author Organization [facility] Address [address] [place] [address] Care Team Providers Care Printing Manager Name Role Phone Rosibel Muse MD Primary Care Provider [phone] Reason for Visit * Reason Onset Date Comments Wound VAC 01/09/2022 Encounter Details Date Type Department Care Team (Late st Contact Info) Description 01/09/2022 Telephone [facility]ists [address] [address] Ronda Worrell, sharepoint specialist VAC Social History Tobacco Use Types Packs/Day Years [...] PM CDT documented as of this encounter Miscellaneous Notes * Telephone Encounter - Ronda Worrell RN - 01/09/2022 2:53 PM CDT RN receive call from patient in regards to wound vac issues. Patient reports the wound vac continuously beeps because it is full. RN attempt to trouble shoot over the phone with no success. RN spoke to Dr. Mejia and many colleagues in the hospital setting. Dr. Mejia recommend to have patient come in to clinic for removal and reapplication of Prevena. RN noted and place call back to patient with update. Patient aware and is making her way to the office. documented in this encounter Plan of Treatment Upcoming Encounters Date Type Department Care Team (Late st Contact Info) Description 08/25/2024 2:00 PM SENIOR QUALITY MANAGER Office Visit [facility] Oncology and Hematology - [place] [address] [facility] [address] [place] [address] Royal Newell MD [address] [facility] [address] [place] [address] documented as of this encounter Visit Diagnoses Not on filedocumented in this encounter Care Teams Printing Manager Relationship Specialty Start Date End Date Rosibel Muse MD PCP - General Family Practice 05/24/21 05/06/24 documented as of this encounter
--- OUTSIDE RECORDS SUMMARY | 2024-08-17 09:02 | XMS_ITS | Encounter Summary ---
Author Organization [facility] [employer] [facility] Address [address] [place] [address] Care Team Providers Care Ice Rink Attendant Name Role Phone Rosibel Muse MD Primary Care Provider [phone] Encounter Details Date Type Department Care Team (Late Contact Info) Description 06/18/2022 Orders Only [facility] Oncology and Hematology - [place] [address] [address] Royal Newell MD [address] [facility] [address] [place] [address] Iron deficiency anemia, unspecified iron [...] Coronavirus/COVID-19? 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
--- OUTSIDE RECORDS SUMMARY | 2024-08-17 09:02 | XMS_ITS | Encounter Summary ---
Author Organization [facility] Address [address] [place] [address] Care Team Providers Care Forest Ranger Technician Name Role Phone Rosibel Muse MD Primary Care Provider [phone] Reason for Referral * CT Scan (Routine) - Closed Specialty Diagnoses / Procedures Referred By Contac t Referred To Contact Diagnoses Primary cancer of ampulla of Vater Procedures CT [place] [address] [place] [address] [place] [address] Referral ID Status Reason Start Date Expiration Date V isits Requested Visits Authorized [id number] Closed [facility] CTS 03/12/2022 04/11/2022 1 1 Reason for Visit * Reason Comments Follow Up 4 week f/u with labs * Eval and Treat (Routine) - Closed Specialty Diagnoses / Procedures Referred By Contac t Referred To Contact Oncology Diagnoses Malignant neoplasm of ampulla of Vater (CMS/HCC) Procedures Office Visit 3-5 Nancy Ashford MD [address] [place] [address] [facility] Oncology And Hematology [place] [address] [place] [address] Referral ID Status Reason Start Date Expiration Date Visits Re quested Visits Authorized [id number] Closed 08/24/2021 02/20/2022 12 12 Encounter Details Date Type Department Care Team (Late st Contact Info) Description 01/18/2022 2:30 PM CDT Office Visit [facility] Oncology and Hematology - [place] [address] [facility] [address] [place] [address] Royal Newell MD [address] [facility] [address] [place] [address] Primary cancer of ampulla of Vater (Primary [...] Sign Reading Time Taken Comments Blood Pressure 123/76 01/18/2022 2:44 PM CDT Pulse 86 01/18/2022 2:44 PM CDT Temperature 36.4 ??C (97.6 ??F) 01/18/2022 2:44 PM CD T Respiratory Rate - - Oxygen Saturation 97% 01/18/2022 2:44 PM CDT Inhaled Oxygen Concentration - - Weight 64.1 kg (141 lb 4.8 oz) 01/18/2022 2:44 P M CDT Height 157.5 cm (5' 2 ) 01/18/2022 2:44 PM CDT Body Mass Index 25.84 01/18/2022 2:44 PM CDT documented in this encounter Progress Notes * Royal Newell MD - 01/18/2022 5:41 PM CDT HEMATOLOGY / ONCOLOGY PROGRESS NOTE Patient Identification: Name: Krissy M White Age: 66 y.o. 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 EGD done on May 22 showed malignant appearing duodenal mass and biopsies were taken. Pathology came back positive for gastritis. where she had EUS and ERCP done with Dr. Medeiros. 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 Neoadjuvant chemotherapy with modified FOLFIRINOX regimen started 07/11/2021. Received cycle 8/8 onOctober 31, 2021 with 20% dose reduction due to toxicity. Pancreaticoduodenectomy done on December 29, 2021. SUBJECTIVE Patient given the office for follow-up visit after her surgery. She is recovering well from surgerybut is still have couple of drainage tube placed with minimal drainage. She has been feeling some tiredness and fatigue but slowly improving and eating better. She still has peripheral neuropathy but improving. No other new complaints. Review of system Constitutional: denies fevers, sweats, improvement in tiredness and fatigue HEENT: denies sinus congestion, hearing or vision problems Respiratory: denies cough, dyspnea, wheeze Cardiovascular: denies chest pain, exertional chest pressure/discomfort, nausea, syncope, shortnessof breath GI: Denies any diarrhea and constipation denies any nausea vomiting. : denies dysuria, frequency,incontinence, urgency Integumentary system: no lymphadenopathy, sweats, flushing Musculoskeletal: denies: myalgia, arthralgia Neurological: denies blurry or disturbed vision, minimal peripheral neuropathy Skin: No lumps, bumps or rashes. 12 [...] no murmur, click, rub or gallop Abdomen: soft, non-tender. Bowel sounds normal. No masses, No organomegaly Extremities: extremities normal, atraumatic, no cyanosis or [...] 10.2 hemoglobin 9.9 platelet 572,000 creatinine 0.7 Assessment: Plan: Patient Active Problem List Diagnosis Date Noted ??? 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 Bacteremia due to Klebsiella pneumoniae 05/29/2021 ??? Elevated LFTs ??? 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 Acute diarrhea 05/24/2021 ??? COPD (chronic obstructive pulmonary disease) 05/24/2021 ??? Acute pancreatitis without necrosis or infection, unspecified 05/24/2021 ??? Benign hypertension 05/24/2021 ??? Pancreatic mass ??? Jaundice, non- ??? Abdominal pain Moderately differentiated ampullary adenocarcinoma T3b [...] reviewed that showed no evidence of malignancy. At this point I will see her back in 2 months with repeat labs and CT abdomen and pelvis. She will continue to follow-up with surgery for removal of the drainage tube. Anemia. I have instructed her to start taking oral iron and vitamin B12 daily. Follow-up with me in 2 months. TOBACCO COUNSELING She is not a tobacco user. 01/18/2022 Royal Newell MD documented in this encounter Plan of Treatment Upcoming Encounters Date Type Department Care Team (Late st Contact Info) Description 08/25/2024 2:00 PM LEVERS LACE MACHINE OPERATOR Office Visit [facility] Oncology and Hematology - [place] [address] [place] [address] [facility] [address] [place] [address] Royal Newell MD [address] [facility] [address] [place] [address] Scheduled Orders Name Type Priority Associated Diagnoses Orde r Schedule CBC WITH DIFFERENTIAL Lab Stat Primary cancer of ampulla of Vater Expected: 03/15/2022, Expires: 01/18/2023 COMPREHENSIVE METABOLIC PANEL Lab Stat Primary cancer of ampulla of Vater Expected: 03/15/2022, Expires: 01/18/2023 CT ABDOMEN PELVIS W CONTRAST Imaging Routine Primary cancer of ampulla of Vater Expected: 03/20/2022, Expires: 01/18/2023 documented as of this encounter Visit Diagnoses Diagnosis Primary cancer of ampulla of Vater- Primary documented in this encounter Care Teams Forest Ranger Technician Relationship Specialty Start Date End Date Rosibel Muse MD PCP - General Family Practice 05/24/21 05/06/24 documented as of this encounter
--- OUTSIDE RECORDS SUMMARY | 2024-08-17 09:02 | XMS_ITS | Encounter Summary ---
Author Organization [facility] Address [address] [place] [address] Care Team Providers Care Laundromat Worker Name Role Phone Rosibel Muse MD Primary Care Provider [phone] Reason for Visit * Reason Comments Post-op Visit Encounter Details Date Type Department Care Team (Late st Contact Info) Description 01/23/2022 1:30 PM CDT Office Visit [facility] Surgical Specialists Omar Leonid [facility] [address] [facility] [address] [place] [id number] [place] [address] [facility] [address] [place] [address] Primary cancer of ampulla of [...] Sign Reading Time Taken Comments Blood Pressure 126/72 01/23/2022 1:48 PM CDT Pulse 89 01/23/2022 1:48 PM CDT Temperature 36.6 ??C (97.9 ??F) 01/23/2022 1:48 PM CD T Respiratory Rate - - Oxygen Saturation 96% 01/23/2022 1:48 PM CDT Inhaled Oxygen Concentration - - Weight 64.2 kg (141 lb 8 oz) 01/23/2022 1:48 PM CDT Height 157.5 cm (5' 2 ) 01/23/2022 1:48 PM CDT Body Mass Index 25.88 01/23/2022 1:48 PM CDT documented in this encounter Progress Notes * Phil Mejia MD - 01/29/2022 9:18 PM CDT Images from the original note were not included. HISTORY OF PRESENT ILLNESS Krissy Oneal is a 66 y.o. female presents with chief complaint of Post-op Visit Subjective Interval history 01/23/22January returns today as a [...] ENDOSCOPIC performed by Omar Gonzalez MD at [facility] ??? HX ERCP 05/2021 at [facility] ??? HX HEART CATHETERIZATION ??? HX HYSTERECTOMY ??? HX PANCREATICODUODENECTOMY N/A 12/29/2021 DIAGNOSTIC LAPAROSCOPY , EXPLORATORY LAPROTOMY PANCREATICODUODENECTOMY (WHIPPLE PROCEDURE) performed by Phil Mejia MD at [facility] ??? HX PARTIAL THYROIDECTOMY goiter at age 8 y/o ??? HX PORTACATH PLACEMENT ??? HX SINUS SURGERY x 2 ??? HX SPINAL SURGERY cervical laminectomy ??? HX TUBAL LIGATION ??? AR EDG US EXAM SURGICAL ALTER STOM DUODENUM/JEJUNUM N/A 05/25/2021 ULTRASOUND ENDOSCOPIC performed by Omar Gonzalez MD at [facility] ??? AR ESOPHAGOGASTRODUODENOSCOPY TRANSORAL DIAGNOSTIC N/A 05/25/2021 ESOPHAGOGASTRODUODENOSCOPY performed by Omar Gonzalez MD at [facility] Social History Tobacco Use ??? [...] Brother Current Outpatient Medications Medication Instructions ??? albuterol sulfate 90 mcg/Actuation inhaler 2 Puffs, Inhalation, EVERY 4 HOURS PRN ??? ALPRAZolam (XANAX) 1 mg, Oral, NIGHTLY PRN ??? amLODIPine (NORVASC) 5 mg, Oral, DAILY ??? budesonide-formoteroL (SYMBICORT) 160-4.5 mcg/actuation HFA Aerosol Inhaler 2 Puffs, Inhalation, TWO TIMES DAILY PRN ??? fluticasone propionate (FLONASE) 50 mcg/spray Dresher, Suspension nasal inhaler 2 Sprays, Both Nostrils, DAILY PRN ??? hydroCHLOROthiazide 37.5 mg, Oral, DAILY, Takes 1 1/2 tablets ??? iron,carb/vit C/vit B12/folic (IRON 100 PLUS ORAL) 100 mg, Oral, DAILY, liquid ??? naloxone (NARCAN) 4 mg/spray Dresher, Non-Aerosol EMERGENCY USE ONLY: Administer 1 spray [...] ??? Penicillins Itching Objective PHYSICAL EXAM Vitals: 01/23/22 1348 BP: 126/72 Pulse: 89 Temp: 97.9 ??F (36.6 ??C) SpO2: 96% Physical Exam Vitals reviewed. Constitutional: General: She [...] Thought content normal. Judgment: Judgment normal. IMAGING: None provided at this visit. ASSESSMENT and PLAN: ICD-10-CM ICD-9-CM 1. 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 156.2 66 y.o. female status post pancreaticoduodenectomy with grade A pancreatic fistula, resolved clinically. JAMIE drains removed today. Return to clinic in [address] C/A/P w/ IV contrast for active surveillance. in kind regards, Phil Mejia MD, FACS, [facility] Surgical Oncology and Endocrine Surgery [facility] Total Time: 20 minutes, over 15 of which were spent in direct conversation and the remainder spent in preparation for today's visit. documented in this encounter Plan of Treatment Upcoming Encounters Date Type Department Care Team (Late st Contact Info) Description 08/25/2024 2:00 PM TREE DEADENER Office Visit [facility] Oncology and Hematology - [address] [facility] [address] [place] [address] Royal Newell MD [address] [facility] [address] [place] [address] documented as of this encounter Visit Diagnoses Diagnosis Primary cancer of ampulla of Vater- Primary documented in this encounter Care Teams Laundromat Worker Relationship Specialty Start Date End Date Rosibel Muse MD PCP - General Family Practice 05/24/21 05/06/24 documented as of this encounter
--- OUTSIDE RECORDS SUMMARY | 2024-08-17 09:02 | XMS_ITS | Encounter Summary ---
Author Organization [facility] Address [address] [facility] Attn: Epic Prelude ADT [place] [address] Care Team Providers Care Acid Supervisor Name Role Phone Rosibel Muse MD Primary Care Provider [phone] Encounter Details Date Type Department Care Team (Latest Contact Info) Description 01/09/2022 Travel Social History Tobacco Use Types Packs/Day [...] st Contact Info) Description 08/25/2024 2:00 PM MATTRESS RENOVATOR Office Visit [facility] Oncology and Hematology - [place] [address] [place] [address] Royal Newell MD [address] [facility] [address] [place] [address] documented as of this encounter Visit Diagnoses Not on filedocumented in this encounter Care Teams Acid Supervisor Relationship Specialty Start Date End Date Rosibel Muse MD PCP - General Family Practice 05/24/21 05/06/24 documented as of this encounter
--- OUTSIDE RECORDS SUMMARY | 2024-08-17 09:02 | XMS_ITS | Encounter Summary ---
Author Organization [facility] [employer] [facility] Address [address] [place] [address] Care Team Providers Care Manager Branch Name Role Phone Rosibel Muse MD Primary Care Provider Encounter Details Date Type Department Care Team (Late Contact Info) Description 03/05/2022 Orders Only [facility] Oncology and Hematology - [place] [place] [address] Royal Newell MD [address] [place] [address] Ampullary carcinoma Social History Tobacco [...] (Late Contact Info) Description 08/25/2024 2:00 PM DOCUMENT CONTROL MANAGER Office Visit [facility] Oncology and Hematology - [place] [place] [address] Royal Newell MD [address] [place] [address] documented as of this encounter Visit Diagnoses Diagnosis 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
--- OUTSIDE RECORDS SUMMARY | 2024-08-17 09:02 | XMS_ITS | Encounter Summary ---
Author Organization [facility] [employer] [facility] Address [address] [place] [address] Care Team Providers Care Associate Name Role Phone Rosibel Muse MD Primary Care Provider [phone] Encounter Details Date Type Department Care Team (Late Contact Info) Description 02/12/2022 Orders Only [facility] Oncology and Hematology - [place] [facility] [address] [place] [address] Royal Newell MD [address] [facility] [address] [place] [address] Iron deficiency anemia, unspecified iron [...] (Late Contact Info) Description 08/25/2024 2:00 PM CERTIFIED PERFORMANCE TECHNOLOGIST Office Visit [facility] Oncology and Hematology - [place] [address] [facility] [address] [place] [address] Royal Newell MD [address] [facility] [address] [place] [address] documented as of this encounter Visit Diagnoses Diagnosis Iron deficiency anemia, unspecified iron deficiency anemia type 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
--- OUTSIDE RECORDS SUMMARY | 2024-08-17 09:02 | XMS_ITS | Encounter Summary ---
Author Organization [facility] Address [address] [place] [address] Care Team Providers Care Manager Document Name Role Phone Rosibel Muse MD Primary Care Provider [phone] Reason for Referral * CT Scan (Routine) - Closed Specialty Diagnoses / Procedures Referred By Divina berman Referred To Contact Diagnoses Ampullary carcinoma Procedures CT [place]OM[place] [address] [place] [address] [place] [address] Referral ID Status Reason Start Date Expiration Date V isits Requested Visits Authorized [id number] Closed [facility] CTS 04/27/2022 05/28/2023 1 1 Reason for Visit * Reason Comments Cancer Follow Up * Eval and Treat (Routine) - Closed Specialty Diagnoses / Procedures Referred By Divina berman Referred To Contact Oncology Diagnoses Malignant neoplasm of ampulla of Vater (CMS/HCC) Procedures Office Visit Level 3-5 Rosibel Muse MD [facility] Oncology And Hematology [address] [address] Referral ID Status Reason Start Date Expiration Date Visits Re quested Visits Authorized [id number] Closed 04/17/2022 10/14/2022 12 15 Encounter Details Date Type Department Care Team (Late st Contact Info) Description 04/27/2022 9:15 AM CDT Office Visit [facility] Oncology and Hematology - [place] [address] [facility] [address] [place] [address] Royal Newell MD [address] [facility] [address] [place] [address] Ampullary carcinoma (Primary Dx) Social [...] Sign Reading Time Taken Comments Blood Pressure 115/65 04/27/2022 9:26 AM CDT Pulse 65 04/27/2022 9:26 AM CDT Temperature 36.2 ??C (97.1 ??F) 04/27/2022 9:26 AM CD T Respiratory Rate - - Oxygen Saturation 98% 04/27/2022 9:26 AM CDT Inhaled Oxygen Concentration - - Weight 68.9 kg (152 lb) 04/27/2022 9:26 AM CDT Height 157.5 cm (5' 2 ) 04/27/2022 9:26 AM CDT Body Mass Index 27.8 04/27/2022 9:26 AM CDT documented in this encounter Progress Notes * Royal Newell MD - 04/27/2022 9:48 AM CDT HEMATOLOGY / ONCOLOGY PROGRESS NOTE Patient Identification: Name: Krissy Oneal Age: 66 y.o. 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 EGD done on May 22 showed malignant appearing duodenal mass and biopsies were taken. Pathology came back positive for gastritis. [facility] where she had EUS and ERCP done with Dr. Medeiros. 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 Neoadjuvant chemotherapy with modified FOLFIRINOX regimen started 07/11/2021. Received cycle 8/8 onOctober 31, 2021 with 20% dose reduction due to toxicity. Pancreaticoduodenectomy done on December 29, 2021. SUBJECTIVE Patient came into the office for follow-up visit. She denies any abdominal pain. She denies any melena hematochezia. She has gained 11 pound weight. No other new complaint. Review of system Constitutional: denies fevers, sweats, 11 pound weight gain with improvement in tiredness and fatigue HEENT: denies [...] 0.4 WBC 5.9 hemoglobin 11 platelet 274,000 Assessment: Plan: Patient Active Problem List Diagnosis [...] received neoadjuvant chemotherapy with FOLFIRINOX regimen cycle / completed October 31, 2021. Patient had pancreaticoduodenectomy done on January 06, 2022. Final pathology reviewed that showed no evidence of malignancy. CT scan on March 19 showed 3 x 5 cm cecal soft tissue mass. Colonoscopy was performed on April 09 that showed internal hemorrhoids otherwise normal findings. Clinically she is feeling better and gaining weight. I will order repeat CT scan in 3 months. Follow-up in 3 months. Anemia. Continue iron and vitamin B12 daily. Follow-up in 3 months. TOBACCO COUNSELING She is not a tobacco user. 04/27/2022 Royal Newell MD documented in this encounter Plan of Treatment Upcoming Encounters Date Type Department Care Team (Late st Contact Info) Description 08/25/2024 2:00 PM PLUG AND MOLD FINISHER Office Visit [facility] Oncology and Hematology [facility] [address] [place] [address] [facility] [address] [place] [address] [place] [address] [place] [address] [address] [place] [address] Scheduled Orders Name Type Priority Associated Diagnoses Orde r Schedule COMPREHENSIVE METABOLIC PANEL Lab Stat Ampullary carcinoma Expected: 07/20/2022, Expires: 04/27/2023 CT ABDOMEN PELVIS W CONTRAST Imaging Routine Ampullary carcinoma Expected: 07/27/2022, Expires: 04/27/2023 documented as of this encounter Visit Diagnoses Diagnosis Ampullary carcinoma- Primary Malignant neoplasm of ampulla of Vater documented in this encounter Care Teams Manager Document Relationship Specialty Start Date End Date Rosibel Muse MD PCP - General Family Practice 05/24/21 05/06/24 documented as of this encounter
--- OUTSIDE RECORDS SUMMARY | 2024-08-17 09:02 | XMS_ITS | Encounter Summary ---
Author Organization [facility] Address [address] [place]: Epic Prelude ADT [place] [address] Care Team Providers Care Catering Server Name Role Phone Rosibel Muse MD Primary Care Provider [phone] Encounter Details Date Type Department Care Team (Latest Contact Info) Description 01/18/2022 Travel Social History Tobacco Use Types Packs/Day [...] st Contact Info) Description 08/25/2024 2:00 PM RESIDENCE MANAGER Office Visit [facility] Oncology and Hematology - [place] [address] [facility] [address] [place] [address] Royal Newell MD [address] [facility] [address] [place] [address] documented as of this encounter Visit Diagnoses Not on filedocumented in this encounter Care Teams Catering Server Relationship Specialty Start Date End Date Rosibel Muse MD PCP - General Family Practice 05/24/21 05/06/24 documented as of this encounter
--- OUTSIDE RECORDS SUMMARY | 2024-08-17 09:02 | XMS_ITS | Encounter Summary ---
Author Organization [facility] Address [address] [place]: Epic Prelude ADT [place] [address] Care Team Providers Care Munitions Handler Name Role Phone Rosibel uMse MD Primary Care Provider [phone] Encounter Details Date Type Department Care Team (Latest Contact Info) Description 04/27/2022 Travel Social History Tobacco Use Types Packs/Day [...] st Contact Info) Description 08/25/2024 2:00 PM SEMICONDUCTOR PACKAGE SYMBOL STAMPER Office Visit [facility] Oncology and Hematology - [place] [address] [place] [address] Royal Newell MD [address] [facility] [address] [place] [address] documented as of this encounter Visit Diagnoses Not on filedocumented in this encounter Care Teams Munitions Handler Relationship Specialty Start Date End Date Rosibel Muse MD PCP - General Family Practice 05/24/21 05/06/24 documented as of this encounter
--- OUTSIDE RECORDS SUMMARY | 2024-08-17 09:02 | XMS_ITS | Encounter Summary ---
Author Organization [facility] [employer] [address] [facility] Address [address] [place] [address] Care Team Providers Care Imager Name Role Phone Rosibel Muse MD Primary Care Provider [phone] Encounter Details Date Type Department Care Team (Late Contact Info) Description 01/29/2022 Orders Only [facility] Oncology and Hematology - [place] [address] [facility] [address] [place] [address] Royal Newell MD [address] [facility] [address] [place] [address] Iron deficiency anemia, unspecified iron [...] (Late Contact Info) Description 08/25/2024 2:00 PM LOG CHECK SCALER Office Visit [facility] Oncology and Hematology - [place] [address] [facility] [address] [place] [address] Royal Newell MD [address] [facility] [address] [place] [address] documented as of this encounter Visit Diagnoses Diagnosis Iron deficiency anemia, unspecified iron deficiency anemia type 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
--- OUTSIDE RECORDS SUMMARY | 2024-08-17 09:02 | XMS_ITS | Encounter Summary ---
Author Organization [facility] [employer] [facility] Address [address] [place] [address] Care Team Providers Care Machine Icer Name Role Phone Rosibel Muse MD Primary Care Provider [phone] Reason for Visit * Reason Onset Date Comments lab orders 03/27/2022 Encounter Details Date Type Department Care Team (Late Contact Info) Description 03/27/2022 Telephone [facility] Oncology and Hematology [facility] [address] [place] [address] Royal Newell MD [address] [employer] [address] [place] [address] lab orders Social History Tobacco Use Types Packs/Day Years [...] Contact Info) Description 08/25/2024 2:00 PM PRODUCT SAFETY ENGINEER Office Visit [facility] Oncology [facility] Hematology [facility] [address] [place] [address] Royal Newell MD [address] [employer] [address] [place] [address] Scheduled Orders Name Type Priority Associated Diagnoses Orde r Schedule COMPREHENSIVE METABOLIC PANEL Lab Routine Iron deficiency anemia, unspecified iron deficiency anemia type Every Two Weeks for 99 Occurrences starting 04/02/2022 until 04/02/2023 documented as of this encounter Visit Diagnoses Diagnosis Iron deficiency anemia, unspecified iron deficiency anemia type- Primary documented in this encounter Care Teams Machine Icer Relationship Specialty Start Date End Date Rosibel Muse MD PCP - General Family Practice 05/24/21 05/06/24 documented as of this encounter
--- OUTSIDE RECORDS SUMMARY | 2024-08-17 09:02 | XMS_ITS | Encounter Summary ---
Author Organization [facility] Address [address] [place] [address] Care Team Providers Care Popcorn Attendant Name Role Phone Rosibel Muse MD Primary Care Provider [phone] Reason for Visit * Reason Onset Date Comments Wound Vac 01/10/2022 Encounter Details Date Type Department Care Team (Late st Contact Info) Description 01/10/2022 Telephone [facility] [address] [address] Ronda Worrell, hearing impaired teacher Vac Social History Tobacco Use Types Packs/Day Years [...] Telephone Encounter - Ronda Worrell RN - 01/10/2022 9:53 AM CDT RN receive call from patient with update on wound vac output per Dr. Mejia request. Patient reports 25mL has been connected since she was seen in the office yesterday. RN noted and send update to Dr. Mejia. documented in this encounter Plan of Treatment Upcoming Encounters Date Type Department Care Team (Late st Contact Info) Description 08/25/2024 2:00 PM CONTINUOUS DRYOUT OPERATOR Office Visit [facility] Oncology and Hematology - [place] [address] [facility] [address] [place] [address] Royal Newell MD [address] [facility] [address] [place] [address] documented as of this encounter Visit Diagnoses Not on filedocumented in this encounter Care Teams Popcorn Attendant Relationship Specialty Start Date End Date Rosibel Muse MD PCP - General Family Practice 05/24/21 05/06/24 documented as of this encounter
--- OUTSIDE RECORDS SUMMARY | 2024-08-17 09:02 | XMS_ITS | Encounter Summary ---
Author Organization [facility] Address [address] [place] [address] Care Team Providers Care Silverware Supervisor Name Role Phone Rosibel Muse MD Primary Care Provider [phone] Encounter Details Date Type Department Care Team (Late st Contact Info) Description 06/19/2022 Orders Only [facility] Surgical Specialists [facility] [address] [facility] [address] [place] [phone] [place] [address] [facility] [address] [place] [address] Social History Tobacco Use Types Packs/Day Years [...] (Late Contact Info) Description 08/25/2024 2:00 PM CERAMIC PAINTER Office Visit [facility] Oncology and Hematology - [place] [place] [address] Royal Newell MD [address] [facility] [address] [place] [address] documented as of this encounter Visit Diagnoses Not on filedocumented in this encounter Care Teams Silverware Supervisor Relationship Specialty Start Date End Date Rosibel Muse MD PCP - General Family Practice 05/24/21 05/06/24 documented as of this encounter
--- OUTSIDE RECORDS SUMMARY | 2024-08-17 09:02 | XMS_ITS | Encounter Summary ---
Author Organization [facility] [employer] [facility] Address [address] [place] [address] Care Team Providers Care Vba Programmer Name Role Phone Rosibel Muse MD Primary Care Provider [phone] Encounter Details Date Type Department Care Team (Late Contact Info) Description 05/21/2022 Orders Only [facility] Oncology and Hematology - [place] [address] [facility] [address] [place] [address] Royal Newell MD [address] [facility] [address] [place] [address] Iron deficiency anemia, unspecified iron [...] (Late Contact Info) Description 08/25/2024 2:00 PM ACCESS CLERK Office Visit [facility] Oncology and Hematology - [place] [address] [facility] [address] [place] [address] Royal Newell MD [address] [facility] [address] [place] [address] documented as of this encounter Visit Diagnoses Diagnosis Iron deficiency anemia, unspecified iron deficiency anemia type 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
--- OUTSIDE RECORDS SUMMARY | 2024-08-17 09:02 | XMS_ITS | Encounter Summary ---
Author Organization [facility] [employer] [facility] Address [address] [place] [address] Care Team Providers Care Grease Man Name Role Phone Rosibel Muse MD Primary Care Provider [phone] Encounter Details Date Type Department Care Team (Late Contact Info) Description 04/23/2022 Orders Only [facility] Oncology and Hematology [facility] [address] [place] [address] Royal Newell MD [facility] [employer] [address] [place] [address] Iron deficiency anemia, unspecified iron deficiency [...] (Late Contact Info) Description 08/25/2024 2:00 PM MEMBERSHIP CORRESPONDENT Office Visit [facility] Oncology and Hematology [facility] [address] [place] [address] oRyal Newell MD [address] [employer] [address] [place] [address] documented as of this encounter Visit Diagnoses Diagnosis Iron deficiency anemia, unspecified iron deficiency anemia type 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
--- OUTSIDE RECORDS SUMMARY | 2024-08-17 09:02 | XMS_ITS | Encounter Summary ---
Author Organization [facility] [employer] [facility] Address [address] [place] [address] Care Team Providers Care Beach Patrol Lieutenant Name Role Phone Rosibel Muse MD Primary Care Provider [phone] Encounter Details Date Type Department Care Team ([facility] Contact Info) Description 05/28/2022 Abstract [facility] Oncology and Hematology [facility] [address] [place] [address] Bambi Catherine RN Social History Tobacco Use Types Packs/Day Years [...] Upcoming Encounters Date Type Department Care Team ([facility] Contact Info) Description 08/25/2024 2:00 PM EXHIBITION CARVER Office Visit [facility] Oncology and Hematology [place] [address] [place] [address] [place] [address] [place] [address] [address] [place] [address] documented as of this encounter Visit Diagnoses Not on filedocumented in this encounter Care Teams Beach Patrol Lieutenant Relationship Specialty Start Date End Date Rosibel Muse MD PCP - General Family Practice 05/24/21 05/06/24 documented as of this encounter
--- OUTSIDE RECORDS SUMMARY | 2024-08-17 09:02 | XMS_ITS | Encounter Summary ---
Author Organization [facility] [employer] [facility] Address [address] [place] [address] Care Team Providers Care Blown Film Extrusion Operator Name Role Phone Roisbel Muse MD Primary Care Provider [phone] Encounter Details Date Type Department Care Team ([facility] Contact Info) Description 02/19/2022 Orders Only [facility] Oncology and Hematology - [place] [address] [place] [address] Royal Newell MD [address] [facility] [address] [place] [address] Ampullary carcinoma Social History Tobacco [...] (Late Contact Info) Description 08/25/2024 2:00 PM PLASTICS SPREADING MACHINE OPERATOR Office Visit [facility] Oncology and Hematology - [place] [address] [place] [address] Royal Newell MD [address] [facility] [address] [place] [address] documented as of this encounter Visit Diagnoses Diagnosis 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
--- OUTSIDE RECORDS SUMMARY | 2024-08-17 09:02 | XMS_ITS | Encounter Summary ---
Author Organization [facility] [employer] [facility] Address [address] [place] [address] Care Team Providers Care Cook Fish And Chips Name Role Phone Rosibel Muse MD Primary Care Provider [phone] Encounter Details Date Type Department Care Team ([facility] Contact Info) Description 02/05/2022 Orders Only [facility] Oncology and Hematology - [place] [address] [place] [address] Royal Newell MD [address] [facility] [address] [place] [address] Ampullary carcinoma Social History Tobacco [...] (Late Contact Info) Description 08/25/2024 2:00 PM TRAFFIC CONTROL OFFICER Office Visit [facility] Oncology and Hematology - [place] [address] [place] [address] Royal Newell MD [address] [facility] [address] [place] [address] documented as of this encounter Visit Diagnoses Diagnosis 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
--- OUTSIDE RECORDS SUMMARY | 2024-08-17 09:02 | XMS_ITS | Encounter Summary ---
Author Organization [facility] [employer] [facility] Address [address] [place] [address] Care Team Providers Care Paving Plant Operator Name Role Phone Rosibel Muse MD Primary Care Provider [phone] Encounter Details Date Type Department Care Team (Late Contact Info) Description 03/26/2022 Orders Only [facility] Oncology and Hematology [facility] [address] [place] [address] Royal Newell MD [facility] [employer] [address] [place] [address] Iron deficiency anemia, unspecified iron deficiency [...] (Late Contact Info) Description 08/25/2024 2:00 PM CUSTOMER SERVICE RECEPTIONIST Office Visit [facility] Oncology and Hematology [facility] [address] [place] [address] Royal Newell MD [address] [place] [address] documented as of this encounter Procedures Procedure Name Priority Date/Time Associated Diagnosis Comments CREATININE Routine 03/19/2022 documented in this encounter Results * CREATININE (03/19/2022) Blood Abstract Provider CHEMISTRY ORDERABLES documented in this encounter Visit Diagnoses Diagnosis Iron deficiency anemia, unspecified iron deficiency anemia type 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
--- OUTSIDE RECORDS SUMMARY | 2024-08-17 09:02 | XMS_ITS | Encounter Summary ---
Author Organization [facility] [employer] [facility] Address [address] [place] [address] Care Team Providers Care Cut File Clerk Name Role Phone Rosibel Muse MD Primary Care Provider [phone] Encounter Details Date Type Department Care Team (Late Contact Info) Description 03/27/2022 Orders Only [facility] Oncology and Hematology [facility] [address] [place] [address] Royal Newell MD [address] [employer] [address] [place] [address] Malignant neoplasm of ampulla of Vater; Primary cancer of ampulla of Vater Social [...] (Late Contact Info) Description 08/25/2024 2:00 PM KILN FEEDER Office Visit [facility]3] Oncology and Hematology - [place] [address] [place] [address] Royal Newell MD [address] [place] [address] documented as of this encounter Visit Diagnoses Diagnosis 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
--- OUTSIDE RECORDS SUMMARY | 2024-08-17 09:02 | XMS_ITS | Encounter Summary ---
Author Organization [facility] [employer] [facility] Address [address] [place] [address] Care Team Providers Care Gear Generator Set Up Operator Name Role Phone Rosibel Muse MD Primary Care Provider [phone] Encounter Details Date Type Department Care Team (Late Contact Info) Description 04/16/2022 Orders Only [facility] Oncology and Hematology [facility] [address] [place] [address] Royal Newell MD [facility] [employer] [address] [place] [address] Ampullary carcinoma; Iron deficiency anemia, unspecified [...] (Late Contact Info) Description 08/25/2024 2:00 PM BATCH OR CONTINUOUS STILL OPERATOR Office Visit [facility] Oncology and Hematology - [place] [address] [place] [address] Royal Newell MD [address] [employer] [address] [place] [address] documented as of this encounter Visit Diagnoses Diagnosis 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
--- OUTSIDE RECORDS SUMMARY | 2024-08-17 09:02 | XMS_ITS | Encounter Summary ---
Author Organization [facility] [employer] [facility] Address [address] [place] [address] Care Team Providers Care Suppository Molding Machine Operator Name Role Phone Rosibel Muse MD Primary Care Provider [phone] Encounter Details Date Type Department Care Team (Late Contact Info) Description 04/09/2022 Orders Only [facility] Oncology and Hematology [facility] [address] [place] [address] Royal Newell MD [facility] [employer] [address] [place] [address] Iron deficiency anemia, unspecified iron deficiency [...] (Late Contact Info) Description 08/25/2024 2:00 PM SELF PAY SPECIALIST Office Visit [facility] Oncology and Hematology [facility] [address] [place] [address] Royal Newell MD [address] [employer] [address] [place] [address] documented as of this encounter Visit Diagnoses Diagnosis Iron deficiency anemia, unspecified iron deficiency anemia type 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
--- OUTSIDE RECORDS SUMMARY | 2024-08-17 09:02 | XMS_ITS | Encounter Summary ---
Author Organization [facility] [employer] [facility] Address [address] [place] [address] Care Team Providers Care Assembler Camper Name Role Phone Rosibel Muse MD Primary Care Provider [phone] Encounter Details Date Type Department Care Team (Late Contact Info) Description 03/12/2022 Orders Only [facility] Oncology and Hematology [facility] [address] [place] [address] Royal Newell MD [facility] [employer] [address] [place] [address] Iron deficiency anemia, unspecified iron deficiency [...] (Late Contact Info) Description 08/25/2024 2:00 PM BID MANAGER Office Visit [facility] Oncology and Hematology 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
--- OUTSIDE RECORDS SUMMARY | 2024-08-17 09:02 | XMS_ITS | Encounter Summary ---
Author Organization [facility] [employer] [facility] Address [address] [place] [address] Care Team Providers Care Catering Convention Services Manager Name Role Phone Rosibel Muse MD Primary Care Provider [phone] Encounter Details Date Type Department Care Team (Late Contact Info) Description 06/04/2022 Orders Only [facility] Oncology and Hematology [facility] [address] [place] [address] Royal Newell MD [facility] [employer] [address] [place] [address] Iron deficiency anemia, unspecified iron deficiency [...] (Late Contact Info) Description 08/25/2024 2:00 PM CHARACTER ACTOR Office Visit [facility] Oncology and Hematology [facility] [address] [place] [address] Royal Newell MD [address] [employer] [address] [place] [address] documented as of this encounter Visit Diagnoses Diagnosis Iron deficiency anemia, unspecified iron deficiency anemia type 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
--- OUTSIDE RECORDS SUMMARY | 2024-08-17 09:02 | XMS_ITS | Encounter Summary ---
Author Organization [facility] Address [address] [place]: Epic Prelude ADT [place] [address] Care Team Providers Care Animal Behaviorist Name Role Phone Rosibel Muse MD Primary Care Provider [phone] Encounter Details Date Type Department Care Team (Latest Contact Info) Description 01/23/2022 Travel Social History Tobacco Use Types Packs/Day [...] st Contact Info) Description 08/25/2024 2:00 PM CERTIFIED TECHNICIAN SPECIALIST Office Visit [facility] Oncology and Hematology - [place] [address] [place] [address] Royal Newell MD [address] [facility] [address] [place] [address] documented as of this encounter Visit Diagnoses Not on filedocumented in this encounter Care Teams Animal Behaviorist Relationship Specialty Start Date End Date Rosibel Msue MD PCP - General Family Practice 05/24/21 05/06/24 documented as of this encounter
--- OUTSIDE RECORDS SUMMARY | 2024-08-17 09:02 | XMS_ITS | Encounter Summary ---
Author Organization [facility] [employer] [facility] Address [address] [place] [address] Care Team Providers Care Candles Pourer Name Role Phone Rosibel Muse MD Primary Care Provider [phone] Reason for Visit * Reason Onset Date Comments CT order needed. 07/16/2022 Encounter Details Date Type Department Care Team (Late st Contact Info) Description 07/16/2022 Telephone [facility] Oncology and Hematology - [place] [address] [facility] [address] [place] [address] Royal Newell MD [address] [facility] [address] [place] [address] CT order needed. Social History Tobacco Use Types Packs/Day Years [...] Coronavirus/COVID-19? No / Unsure 07/12/2022 1:33 PM ARCHEOLOGY PROFESSOR documented as of this encounter Miscellaneous Notes * Telephone Encounter - Bambi Catherine RN - 07/18/2022 2:02 PM CST Patient called wanting to know if Dr. Newell would also order a CT chest with due to her surgeon needing one. Order completed and faxed. EOLOGY PROFESSOR documented in this encounter Plan of Treatment Upcoming Encounters Date Type Department Care Team (Late st Contact Info) Description 08/25/2024 2:00 PM ARCHEOLOGY PROFESSOR Office Visit [facility] Oncology and Hematology - [place] [address] [facility] [address] [place] [address] Royal Newell MD [address] [facility] [place] [address] documented as of this encounter Visit Diagnoses Diagnosis Allergic reaction to contrast dye, initial encounter documented in this encounter Care Teams Candles Pourer Relationship Specialty Start Date End Date Rosibel Muse MD PCP - General Family Practice 05/24/21 05/06/24 documented as of this encounter
--- OUTSIDE RECORDS SUMMARY | 2024-08-17 09:02 | XMS_ITS | Encounter Summary ---
Author Organization [facility] [employer] [facility] Address [address] [place] [address] Care Team Providers Care Aquaculture Farmer Name Role Phone Rosibel Muse MD Primary Care Provider [phone] Encounter Details Date Type Department Care Team (Late Contact Info) Description 02/02/2022 Orders Only [facility] Oncology and Hematology - [place] [address] [place] [address] Royal Newell MD [address] [facility] [employer] [address] [place] [address] Malignant neoplasm of ampulla of Vater Social History Tobacco [...] (Late Contact Info) Description 08/25/2024 2:00 PM HOME RESTORATION SERVICE SUPERVISOR Office Visit [facility] Oncology and Hematology - [place] [address] [place] [address] Royal Newell MD [address] [facility] [address] [place] [address] documented as of this encounter Visit Diagnoses Diagnosis Malignant neoplasm of ampulla of Vater documented in this encounter Care Teams Aquaculture Farmer Relationship Specialty Start Date End Date Rosibel Muse MD PCP - General Family Practice 05/24/21 05/06/24 documented as of this encounter
--- OUTSIDE RECORDS SUMMARY | 2024-08-17 09:02 | XMS_ITS | Encounter Summary ---
Author Organization [facility] Address [address] [place]: Epic Prelude ADT [place] [address] Care Team Providers Care Wildlife Ecologist Name Role Phone Rosibel Muse MD Primary Care Provider [phone] Encounter Details Date Type Department Care Team (Latest Contact Info) Description 01/11/2022 Travel Social History Tobacco Use Types Packs/Day [...] st Contact Info) Description 08/25/2024 2:00 PM GINNER HELPER Office Visit [facility] Oncology and Hematology - [place] [address] [place] [address] Royal Newell MD [address] [facility] [address] [place] [address] documented as of this encounter Visit Diagnoses Not on filedocumented in this encounter Care Teams Wildlife Ecologist Relationship Specialty Start Date End Date Rosibel Muse MD PCP - General Family Practice 05/24/21 05/06/24 documented as of this encounter
--- OUTSIDE RECORDS SUMMARY | 2024-08-17 09:02 | XMS_ITS | Encounter Summary ---
Author Organization [facility] Address [address] [place] [address] Care Team Providers Care Full Fashioned Garment Knitter Name Role Phone Rosibel Muse MD Primary Care Provider [phone] Reason for Visit * Reason Comments nurse visit Encounter Details Date Type Department Care Team (Latest Contact Info) Description 01/11/2022 11:00 AM CDT Clinical Support [facility] [address] [place] [address] Ronda Worrell, RN Primary cancer of [...] Taken Comments Blood Pressure - - Pulse - - Temperature - - Respiratory Rate - - Oxygen Saturation - - Inhaled Oxygen Concentration - - Weight 67.1 kg (148 lb) 01/11/2022 10:51 AM CDT Height 157.5 cm (5' 2 ) 01/11/2022 10:51 AM CDT Body Mass Index 27.07 01/11/2022 10:51 AM CDT documented in this encounter Plan of Treatment Upcoming Encounters Date Type Department Care Team (Late st Contact Info) Description 08/25/2024 2:00 PM GUEST SERVICE AIDE Office Visit [facility] Oncology and Hematology [facility] [address] [facility] [address] [place] [address] Royal Newell MD [address] [facility] [address] [place] [address] documented as of this encounter Visit Diagnoses Diagnosis 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
--- OUTSIDE RECORDS SUMMARY | 2024-08-17 09:02 | XMS_ITS | Encounter Summary ---
Author Organization [facility] [employer] [facility] Address [address] [place] [address] Care Team Providers Care Catechist Name Role Phone Rosibel Muse MD Primary Care Provider [phone] Encounter Details Date Type Department Care Team (Late Contact Info) Description 02/04/2022 Orders Only [facility] Oncology and Hematology - [place] [address] [place] [address] Royal Newell MD [address] [facility] [employer] [address] [place] [address] Primary cancer of ampulla of Vater Social [...] (Late Contact Info) Description 08/25/2024 2:00 PM BERRY PICKER MACHINE OPERATOR Office Visit [facility] Oncology and Hematology - [place] [address] [place] [address] Royal Newell MD [address] [facility] [address] [place] [address] documented as of this encounter Visit Diagnoses Diagnosis Primary cancer of ampulla of Vater documented in this encounter Care Teams Catechist Relationship Specialty Start Date End Date Rosibel Muse MD PCP - General Family Practice 05/24/21 05/06/24 documented as of this encounter
--- OUTSIDE RECORDS SUMMARY | 2024-08-17 09:02 | XMS_ITS | Encounter Summary ---
Author Organization [facility] [employer] [facility] Address [address] [place] [address] Care Team Providers Care Hatch Supervisor Name Role Phone Rosibel Muse MD Primary Care Provider [phone] Encounter Details Date Type Department Care Team ([facility] Contact Info) Description 03/19/2022 Orders Only [facility] Oncology and Hematology [facility] [address] [place] [address] Beverley Heath Primary cancer of ampulla of Vater Social [...] Upcoming Encounters Date Type Department Care Team ([facility] Contact Info) Description 08/25/2024 2:00 PM CLIP LOADING MACHINE FEEDER Office Visit [facility] Oncology and Hematology [place] [address] [place] [address] Royal Newell MD [address] [facility] [address] [place] [address] documented as of this encounter Visit Diagnoses Diagnosis Primary cancer of ampulla of Vater documented in this encounter Care Teams Hatch Supervisor Relationship Specialty Start Date End Date Rosibel Muse MD PCP - General Family Practice 05/24/21 05/06/24 documented as of this encounter
--- OUTSIDE RECORDS SUMMARY | 2024-08-17 09:02 | XMS_ITS | Encounter Summary ---
Author Organization [facility] [employer] [facility] Address [address] [place] [address] Care Team Providers Care Commercial Fisherman Name Role Phone Rosibel Muse MD Primary Care Provider [phone] Encounter Details Date Type Department Care Team (Late Contact Info) Description 05/28/[address] [facility] Oncology and Hematology [facility] [address] [place] [address] Royal Newell MD [facility] [place] [address] Ampullary carcinoma; Iron deficiency anemia, unspecified [...] (Late Contact Info) Description 08/25/2024 2:00 PM CORPORATE SALES TRAINER Office Visit 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
--- OUTSIDE RECORDS SUMMARY | 2024-08-17 09:02 | XMS_ITS | Encounter Summary ---
Author Organization [facility] Address [address] [place]: Epic Prelude ADT [place] [address] Care Team Providers Care Bonsai Tender Name Role Phone Rosibel Muse MD Primary Care Provider [phone] Encounter Details Date Type Department Care Team (Latest Contact Info) Description 06/19/2022 Travel Social History Tobacco Use Types Packs/Day [...] Coronavirus/COVID-19? Unable to assess 06/19/2022 10:28 AM ASSOCIATE PROFESSOR OF BIOSTATISTICS documented as of this encounter Plan of Treatment Upcoming Encounters Date Type Department Care Team (Late st Contact Info) Description 08/25/2024 2:00 PM ASSOCIATE PROFESSOR OF BIOSTATISTICS Office Visit [facility] Oncology and Hematology - [place] [address] [place] [address] Royal Newell MD [address] [facility] [address] [place] [address] documented as of this encounter Visit Diagnoses Not on filedocumented in this encounter Care Teams Bonsai Tender Relationship Specialty Start Date End Date Rosibel Muse MD PCP - General Family Practice 05/24/21 05/06/24 documented as of this encounter
--- OUTSIDE RECORDS SUMMARY | 2024-08-17 09:02 | XMS_ITS | Encounter Summary ---
Author Organization [facility] [employer] [facility] Address [address] [place] [address] Care Team Providers Care Risk Control Representative Name Role Phone Rosibel Muse MD Primary Care Provider [phone] Encounter Details Date Type Department Care Team (Late Contact Info) Description 01/18/2022 Abstract [facility] Oncology and Hematology [facility] [address] [place] [address] Usman Johnson, RN Social History Tobacco Use Types Packs/Day [...] Encounters Date Type Department Care Team ([facility] Contact Info) Description 08/25/2024 2:00 PM DOCUMENTATION WRITER Office Visit [facility] Oncology and Hematology [facility] [address] [place] [address] Royal Newell MD [address] [facility] [address] [place] [address] documented as of this encounter Visit Diagnoses Not on filedocumented in this encounter Care Teams Risk Control Representative Relationship Specialty Start Date End Date Rosibel Muse MD PCP - General Family Practice 05/24/21 05/06/24 documented as of this encounter
--- OUTSIDE RECORDS SUMMARY | 2024-08-17 09:02 | XMS_ITS | Encounter Summary ---
Author Organization [facility] Address [address] [place]: Epic Prelude ADT [place] [address] Care Team Providers Care Office Admin Name Role Phone Rosibel Muse MD Primary Care Provider [phone] Encounter Details Date Type Department Care Team (Latest Contact Info) Description 01/12/2022 Travel Social History Tobacco Use Types Packs/Day [...] st Contact Info) Description 08/25/2024 2:00 PM VENETIAN BLIND INSTALLER Office Visit [facility] Oncology and Hematology - [place] [address] [place] [address] Royal Newell MD [address] [facility] [address] [place] [address] documented as of this encounter Visit Diagnoses Not on filedocumented in this encounter Care Teams Office Admin Relationship Specialty Start Date End Date Rosibel Muse MD PCP - General Family Practice 05/24/21 05/06/24 documented as of this encounter
--- OUTSIDE RECORDS SUMMARY | 2024-08-17 09:02 | XMS_ITS | Encounter Summary ---
Author Organization [facility] Address [address] [place] [address] Care Team Providers Care Engine Cleaner Name Role Phone Rosibel Muse MD Primary Care Provider [phone] Encounter Details Date Type Department Care Team (Late Contact Info) Description 03/29/2022 Orders Only [facility] Oncology and Hematology - [place] [address] [place] [address] Provider, Abstract NO ADDRESS ON FILE Social [...] Upcoming Encounters Date Type Department Care Team ([facility] Contact Info) Description 08/25/2024 2:00 PM COUNCILLOR ABORIGINAL LAND COUNCIL Office Visit [facility] Oncology and Hematology - [place] [address] [place] [address] Royal Newell MD [address] [facility] [address] [place] [address] documented as of this encounter Procedures Procedure Name Priority Date/Time Associated Diagnosis Comments COMPREHENSIVE METABOLIC PANEL Routine 03/27/2022 documented in this encounter Results * COMPREHENSIVE METABOLIC PANEL (03/27/2022) Blood Abstract Provider CHEMISTRY ORDERABLES documented in this encounter Visit Diagnoses Not on filedocumented in this encounter Care Teams Engine Cleaner Relationship Specialty Start Date End Date Rosibel Muse MD PCP - General Family Practice 05/24/21 05/06/24 documented as of this encounter
--- OUTSIDE RECORDS SUMMARY | 2024-08-17 09:02 | XMS_ITS | Encounter Summary ---
Author Organization [facility] Address [address] [place] [address] Care Team Providers Care Resistance Welding Machine Operator Name Role Phone Rosibel Muse MD Primary Care Provider [phone] Reason for Visit * Reason Onset Date Comments Home Health Care Update 01/11/2022 Encounter Details Date Type Department Care Team (Late st Contact Info) Description 01/11/2022 Telephone [facility] [id number] [place] [address] Ronda Worrell, RN Home Health Care Update Social History Tobacco Use Types Packs/Day Years [...] Telephone Encounter - Ronda Worrell, RN - 01/11/2022 11:48 AM CDT RN receive update from public health social workerJillian, that is working on establishing home health care for the patient. Home Health care will be providing drain and supportive care for the patient. Patient will be seen either Jaylin or Saturday depending on home health care schedule. RN noted and place call to patient with update. Patient aware and verbalize understanding. documented in this encounter Plan of Treatment Upcoming Encounters Date Type Department Care Team (Late st Contact Info) Description 08/25/2024 2:00 PM CONTINUITY EDITOR Office Visit [facility] Oncology and Hematology - [place] [address] [facility] [address] [place] [address] Royal Newell MD [address] [facility] [address] [place] [address] documented as of this encounter Visit Diagnoses Not on filedocumented in this encounter Care Teams Resistance Welding Machine Operator Relationship Specialty Start Date End Date Rosibel Muse MD PCP - General Family Practice 05/24/21 05/06/24 documented as of this encounter
--- OUTSIDE RECORDS SUMMARY | 2024-08-17 09:02 | XMS_ITS | Encounter Summary ---
Author Organization [facility] [employer] [facility] Address [address] [place] [address] Care Team Providers Care Brim Stiffener Name Role Phone Rosibel Muse MD Primary Care Provider [phone] Encounter Details Date Type Department Care Team (Late Contact Info) Description 05/14/2022 Orders Only [facility] Oncology and Hematology - [place] [address] [place] [address] Royal Newell MD [address] [facility] [employer] [address] [place] [address] Ampullary carcinoma; Iron deficiency anemia, [...] (Late Contact Info) Description 08/25/2024 2:00 PM SWISS TYPE SCREW MACHINE OPERATOR Office Visit [facility] Oncology and Hematology - [place] [address] [place] [address] Royal Newell MD [address] [facility] [address] [place] [address] documented as of this encounter Visit Diagnoses Diagnosis 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
--- OUTSIDE RECORDS SUMMARY | 2024-08-17 09:02 | XMS_ITS | Encounter Summary ---
Author Organization [facility] [employer] [facility] Address [address] [place] [address] Care Team Providers Care Greaser Helper Name Role Phone Rosibel Muse MD Primary Care Provider [phone] Encounter Details Date Type Department Care Team (Late Contact Info) Description 05/07/2022 Orders Only [facility] Oncology and Hematology - [place] [address] [facility] [address] [place] [address] Royal Newell MD [address] [facility] [address] [place] [address] Iron deficiency anemia, unspecified iron [...] (Late Contact Info) Description 08/25/2024 2:00 PM GUEST SERVICES AMBASSADOR Office Visit [facility] Oncology and Hematology - [place] [address] [facility] [address] [place] [address] Royal Newell MD [address] 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
--- OUTSIDE RECORDS SUMMARY | 2024-08-17 09:02 | XMS_ITS | Encounter Summary ---
Author Organization [facility] [employer] [facility] Address [address] [place] [address] Care Team Providers Care Pump Rebuilder Name Role Phone Rosibel Muse MD Primary Care Provider [phone] Encounter Details Date Type Department Care Team (Late Contact Info) Description 06/11/2022 Orders Only [facility] Oncology and Hematology 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
--- OUTSIDE RECORDS SUMMARY | 2024-08-17 09:02 | XMS_ITS | Encounter Summary ---
Author Organization [facility] [employer] [facility] Address [address] [place] [address] Care Team Providers Care Bail Bond Agent Name Role Phone Rosibel Muse MD Primary Care Provider [phone] Encounter Details Date Type Department Care Team (Late Contact Info) Description 07/02/2022 Orders Only [facility] Oncology and Hematology - [place] [address] [address] Royal Newell MD [address] [facility] [address] [place] [address] Iron deficiency anemia, unspecified iron [...] Coronavirus/COVID-19? 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
--- OUTSIDE RECORDS SUMMARY | 2024-08-17 09:02 | XMS_ITS | Encounter Summary ---
Author Organization [facility] [employer] [facility] Address [address] [place] [address] Care Team Providers Care Metal Machine Operator Name Role Phone Rosibel Muse MD Primary Care Provider [phone] Encounter Details Date Type Department Care Team (Late Contact Info) Description 01/16/2022 Abstract [facility] Oncology and Hematology [facility] [address] [place] [address] Usman Johnson, RN Social History [...] Upcoming Encounters Date Type Department Care Team ([facility] Contact Info) Description 08/25/2024 2:00 PM THREAD WINDER Office Visit [facility] Oncology and Hematology [facility] [address] [place] [address] Royal Newell MD [address] [facility] [address] [place] [address] documented as of this encounter Visit Diagnoses Not on filedocumented in this encounter Care Teams Metal Machine Operator Relationship Specialty Start Date End Date Rosibel Muse MD PCP - General Family Practice 05/24/21 05/06/24 documented as of this encounter
--- OUTSIDE RECORDS SUMMARY | 2024-08-17 09:02 | XMS_ITS | Encounter Summary ---
Author Organization [facility] [employer] [facility] Address [address] [place] [address] Care Team Providers Care Textile Science Technician Name Role Phone Rosibel Muse MD Primary Care Provider [phone] Encounter Details Date Type Department Care Team (Late Contact Info) Description 07/09/2022 Orders Only [facility] Oncology and Hematology - [place] [address] [place] [address] Royal Newell MD [address] [facility] [employer] [address] [place] [address] Ampullary carcinoma; Iron deficiency anemia, [...] Coronavirus/COVID-19? 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
--- OUTSIDE RECORDS SUMMARY | 2024-08-17 09:02 | XMS_ITS | Encounter Summary ---
Author Organization [facility] [facility] Address [address] [place] [address] Care Team Providers Care Oracle Financials Consultant Name Role Phone Rosibel Muse MD Primary Care Provider [phone] Reason for Visit * Reason Onset Date Comments Cancer 07/16/2022 Encounter Details Date Type Department Care Team (Late st Contact Info) Description 07/16/2022 Telephone [facility] Oncology and Hematology - [place] [address] [place] [address] [address] [place] [address] Royal Newell MD [address] [facility] [address] [place] [address] Cancer Social History Tobacco Use Types Packs/Day Years [...] Coronavirus/COVID-19? No / Unsure 07/12/2022 1:33 PM SPARE FIXER documented as of this encounter Miscellaneous Notes * Telephone Encounter - Bambi Catherine RN - 07/16/2022 12:29 PM SPARE FIXER Patients surgeon wanted a ct chest with contrast. Patient tried to get it somewhere else but they did not have the capacity to care for her if she had an allergic reaction. She is asking if we can order it all here for her scheduled CT tomorrow. E FIXER documented in this encounter Plan of Treatment Upcoming Encounters Date Type Department Care Team (Late st Contact Info) Description 08/25/2024 2:00 PM SPARE FIXER Office Visit [facility] Oncology and Hematology - [place] [address] [facility] [address] [place] [address] Royal Newell MD [address] [facility] [address] [place] [address] documented as of this encounter Visit Diagnoses Diagnosis Pancreatic mass- Primary Unspecified disease of pancreas documented in this encounter Care Teams Oracle Financials Consultant Relationship Specialty Start Date End Date Rosibel Muse MD PCP - General Family Practice 05/24/21 05/06/24 documented as of this encounter
--- OUTSIDE RECORDS SUMMARY | 2024-08-17 09:02 | XMS_ITS | Encounter Summary ---
Author Organization [facility] Address [address] [place] [address] Care Team Providers Care Wood Preparation Supervisor Name Role Phone Rosibel Muse MD Primary Care Provider [phone] Reason for Visit * Reason Comments Post-op Visit Encounter Details Date Type Department Care Team (Late st Contact Info) Description 01/16/2022 1:30 PM CDT Office Visit [facility] Omar Leonid [facility] [id number] [facility] [address] [place] [phone] [place] [address] [facility] [address] [place] [address] Primary cancer of ampulla of [...] Sign Reading Time Taken Comments Blood Pressure 110/70 01/16/2022 1:23 PM CDT Pulse 78 01/16/2022 1:23 PM CDT Temperature 36.6 ??C (97.9 ??F) 01/16/2022 1:23 PM CD T Respiratory Rate - - Oxygen Saturation 97% 01/16/2022 1:23 PM CDT Inhaled Oxygen Concentration - - Weight 64.3 kg (141 lb 12.8 oz) 01/16/2022 1:23 PM CDT Height 157.5 cm (5' 2 ) 01/16/2022 1:23 PM CDT Body Mass Index 25.94 01/16/2022 1:23 PM CDT documented in this encounter Progress Notes * Phil Mejia MD - 01/17/2022 11:43 PM CDT Images from the original note were not included. HISTORY OF PRESENT ILLNESS Krissy Oneal is a 66 y.o. female presents with chief complaint of Post-op Visit Subjective Interval history 01/17/22January returns today as a [...] ENDOSCOPIC performed by Omar Gonzalez MD at [facility] ??? HX ERCP 05/2021 at [facility] ??? HX HEART CATHETERIZATION ??? HX HYSTERECTOMY ??? HX PANCREATICODUODENECTOMY N/A 12/29/2021 DIAGNOSTIC LAPAROSCOPY , EXPLORATORY LAPROTOMY PANCREATICODUODENECTOMY (WHIPPLE PROCEDURE) performed by Phil Mejia MD at [facility] OR ??? HX PARTIAL THYROIDECTOMY goiter at age 8 y/o ??? HX PORTACATH PLACEMENT ??? HX SINUS SURGERY x 2 ??? HX SPINAL SURGERY cervical laminectomy ??? HX TUBAL LIGATION ??? NC EDG US EXAM SURGICAL ALTER STOM DUODENUM/JEJUNUM N/A 05/25/2021 ULTRASOUND ENDOSCOPIC performed by Omar Gonzalez MD at [facility] ??? NC ESOPHAGOGASTRODUODENOSCOPY TRANSORAL DIAGNOSTIC N/A 05/25/2021 ESOPHAGOGASTRODUODENOSCOPY performed by Omar Gonzalez MD at [facility] Social History Tobacco Use [...] PRN ??? fluticasone propionate (FLONASE) 50 mcg/spray [place], Suspension nasal inhaler 2 Sprays, Both Nostrils, DAILY PRN ??? hydroCHLOROthiazide 37.5 mg, Oral, DAILY, Takes 1 1/2 tablets ??? iron,carb/vit C/vit B12/folic (IRON 100 PLUS ORAL) 100 mg, Oral, DAILY, liquid ??? naloxone (NARCAN) 4 mg/spray [place], Non-Aerosol EMERGENCY USE ONLY: Administer 1 spray [...] ??? Penicillins Itching Objective PHYSICAL EXAM Vitals: 01/16/22 1323 BP: 110/70 Pulse: 78 Temp: 97.9 ??F (36.6 ??C) SpO2: 97% Physical Exam Vitals reviewed. [...] with grade a pancreatic fistula. Midline incision still draining minimal serous fluid. Prevena removed today. Patient to follow-up shortly. ContinueJP drainage of pancreatic fistula at this time. in kind regards, Phil Mejia MD, FACS, FS Surgical Oncology and Endocrine Surgery [facility] Total Time: 20 minutes, over 15 of which were spent in direct conversation and the remainder spent in preparation for today's visit. documented in this encounter Plan of Treatment Upcoming Encounters Date Type Department Care Team (Late st Contact Info) Description 08/25/2024 2:00 PM BRICK KILN BURNER Office Visit [facility] Oncology and Hematology - [place] [address] [facility] [address] [place] [address] Royal Newell MD [address] [facility] [address] [place] [address] documented as of this encounter Visit Diagnoses Diagnosis Primary cancer of ampulla of Vater- Primary documented in this encounter Care Teams Wood Preparation Supervisor Relationship Specialty Start Date End Date Rosibel Muse MD PCP - General Family Practice 05/24/21 05/06/24 documented as of this encounter
--- OUTSIDE RECORDS SUMMARY | 2024-08-17 09:03 | XMS_ITS | Encounter Summary ---
Author Organization [facility] Address [address] [place] [address] Care Team Providers Care [employer] Professor Name Role Phone Rosibel Muse MD Primary Care Provider [phone] Reason for Visit * Auth/Cert Specialty Diagnoses / Procedures Referred By Contac t Referred To Contact Diagnoses PANCREATIC CYST Procedures ID PART REMV PANC,PROX+REMV DUOD+[place] [address] [address] Referral ID Status Reason Start Date Expiration Date Visits Re quested Visits Authorized [id number] 12/08/2021 1 1 Encounter Details Date Type Department Care Team (Latest Contact Info) Description 12/29/2021 5:36 AM CDT - 01/08/2022 6:20 PM CDT Hospital Encounter [facility] [address] [place] [address] [place] [address] [facility] [place] [address] [place] [address] Primary cancer of ampulla of Vater Discharge Disposition: Home or Self Care Social [...] Recorded In the last 10 days, have radhika u been in contact with someone who was confirmed or suspected to have Coronavirus/COVID-19? No / Unsure 12/25/2021 10:16 AM CDT documented as of this encounter Last Filed Vital Signs Vital Sign Reading Time Taken Comments Blood Pressure 118/67 01/08/2022 8:00 AM CDT Pulse 75 01/08/2022 8:00 AM CDT Temperature 36.6 ??C (97.8 ??F) 01/08/2022 8:00 AM CD T Respiratory Rate 18 01/08/2022 8:00 AM CDT Oxygen Saturation 97% 01/08/2022 8:00 AM CDT Inhaled Oxygen Concentration - - Weight 70 kg (154 lb 6.4 oz) 01/07/2022 11:45 PM CDT Height 157.5 cm (5' 2 ) 01/04/2022 7:28 PM CDT Body Mass Index 28.24 01/04/2022 7:28 PM CDT documented in this encounter Discharge Summaries * Thelma Ken MD - 01/07/2022 9:00 AM CDT Surgical Discharge Summary Patient Name Krissy Dillon Age 66 y.o. Gender female Date of 1955 [facility] [id number] Attending Physician No att. providers found Discharging Physician Thelma Ken MD PCP Rosibel Muse MD Admit Date 12/29/2021 Discharge Date 01/08/2022 Length of Stay LOS: 10 days Follow-up & Outstanding Issues/Tests: Follow-up with Thelma Ken MD in 2 week(s). Hospital Course: Krissy Dillon is a 66 y.o. female who was admitted to (Insert hospital name) on 12/29/2021 and found to have a principle diagnosis of pancreatic cancer status post neoadjuvant chemotherapy. The patient was admitted routinely after pancreaticoduodenectomy to the surgical stepdown unit. While there, she had pain controlled by epidural analgesia and Marroquin catheterization for the first3 days of her stay. She also had routine nasogastric decompression for the first 5 days until she underwent an upper GI swallow study which showed no evidence of leak at the duodenal jejunal anastomosis. The patient was resumed on a diet and had slow advancement of bowel function from that point forward. 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 It was attempted to set up home health for her discharge over the ,but this was not possible. Additionally she began leaking some serous fluid from her midline incision for which a close suction wound VAC product was placed to control the drainage. She was discharged on this in good condition on january 08. Problems Addressed (Secondary Diagnoses): Active Hospital Problems Diagnosis ??? Primary cancer of ampulla of Vater ??? COPD (chronic obstructive pulmonary disease) ??? Benign hypertension Resolved Hospital Problems No resolved problems to display. Procedures performed: Procedure(s) (LRB): DIAGNOSTIC LAPAROSCOPY , EXPLORATORY LAPROTOMY PANCREATICODUODENECTOMY (WHIPPLE PROCEDURE) (N/A) MEDICATIONS Prior to admission: No medications prior to admission. Discharge medications and new prescriptions: Medication List START taking these medications acetaminophen 325 mg tablet Commonly known as: TYLENOL Take 2 Tablets (650 mg) by mouth every 6 hours for 7 days. Signed by: Dr. Thelma Ken MD Quantity: 56 Tablet Refills: 0 naloxone 4 mg/spray [place], Non-Aerosol Commonly known as: NARCAN EMERGENCY USE ONLY: Administer 1 spray (4 mg) in one nostril one time. May repeat in alternating nostrils every 2-3 min until responsive or EMS arrives. Signed by: Dr. Thelma Ken MD Quantity: 2 Each Refills: 3 oxyCODONE 5 mg tablet Commonly known as: ROXICODONE Take 1 Tablet (5 mg) by mouth every 6 hours as needed for Pain. Max Daily Amount: 20 mg Signed by: Dr. Thelma Ken MD Quantity: 28 Tablet Refills: 0 CONTINUE taking these medications albuterol sulfate 90 mcg/Actuation inhaler Take 2 Puffs by inhalation every 4 hours as needed for Shortness of Breath. Refills: 0 ALPRAZolam 1 mg tablet Commonly known as: XANAX Take 1 mg by mouth nightly as needed for Anxiety. Refills: 0 amLODIPine 5 mg tablet Commonly known as: NORVASC Take 5 mg by mouth daily. Refills: 0 budesonide-formoteroL 160-4.5 mcg/actuation HFA Aerosol Inhaler Commonly known as: SYMBICORT Take 2 Puffs by inhalation 2 times daily as needed. Refills: 0 fluticasone propionate 50 mcg/spray [place], Suspension nasal inhaler Commonly known as: FLONASE Administer 2 Sprays in each nostril 1 time daily as needed. Refills: 0 hydroCHLOROthiazide 25 mg tablet Take 37.5 mg by mouth daily. Takes 1 1/2 tablets Refills: 0 IRON 100 PLUS ORAL Take 100 mg by mouth daily. liquid Refills: 0 potassium chloride 20 mEq Extended Release tablet Commonly known as: KLOR-CON Take 1 Tablet (20 mEq) by mouth daily. Signed by: Dr. Royal Newell MD Quantity: 30 Tablet Refills: 3 quinapriL 40 mg tablet Commonly known as: ACCUPRIL Take 80 mg by mouth daily. Refills: 0 sertraline 50 mg tablet Commonly known as: ZOLOFT Take 50 mg by mouth daily at bedtime. Refills: 0 simvastatin 20 mg tablet Commonly known as: ZOCOR Take 20 mg by mouth daily at bedtime. Refills: 0 Vitamin B-12 5,000 mcg/mL Drops Place 5,000 mcg under tongue daily. Refills: 0 Generic drug: cyanocobalamin (vitamin B-12) STOP taking these medications ibuprofen 800 mg tablet Commonly known as: MOTRIN Where to Get Your Medications These medications were sent to [facility] [place] [id number] Hours: Saturday - Saturday 7AM - 8PM. Saturday - Saturday 9AM - 7PM ?? acetaminophen 325 mg tablet ?? naloxone 4 mg/spray [place], Non-Aerosol ?? oxyCODONE 5 mg tablet Discharged Condition: improved to baseline Disposition: Home Patient Instructions: Activity: no heavy lifting for 6 weeks Diet is: No diet orders on file Wound Care: As directed, Ice to area for comfort and Keep wound clean and dry. Signed: Thelma Ken MD 01/09/2022, 5:47 PM This discharge took less than 30 minutes of time to prepare documented in this encounter Discharge Instructions * Discharge Instructions* Anastacia Jackson RN - 01/08/2022 11:14 AM CDT PRESCRIPTIONS Prescriptions given? Yes SIGNS AND SYMPTOMS TO REPORT Contact your health care provider if you experience any of the following symptoms: increase in pain, increase in redness, swelling, or warmth of incision site, persistent bleeding or drainage, temperature greater than 101 degrees or unable to keep food or fluids down. ACTIVITY Your activity level is: increase activity as tolerated, no smoking and sponge bathing until Prevenaremoved one week after placement. If you smoke you are advised to quit. Ask your health care provider for advice if you need assistance to stop smoking. Avoid second-hand smoke exposure and do not let people smoke in your home. Follow-up care is a grove part of your treatment and safety. Be sure to make/go to all appointments. DIET Your diet is: Gastric soft. No soda, no added sugar, no orange juice. WOUND CARE For your wound/incision: Keep wounds clean and dry. Sponge bathe unil Prevena removed. Strip JAIME drains and record output on provided logs. Bring output log in with you to your follow-up appointment. * Attachments The following attachments cannot be sent through Care Everywhere. * Surgical Drain Care (Vincentian) documented in this encounter Medications at Time of Discharge Medication Sig Dispensed Refills Start Date End Date naloxone (NARCAN) 4 mg/spray [place], Non-Aerosol EMERGENCY USE ONLY: Administer 1 spray [...] for Anxiety. fluticasone propionate (FLONASE) 50 mcg/spray [place], Suspension nasal inhaler Administer 2 Sprays in [...] by inhalation 2 times daily as needed. acetaminophen (TYLENOL) 325 mg tablet Take 2 Tablets (650 mg) by mouth every 6 hours for 7 days. 56 Tablet 01/08/2022 01/15/2022 potassium chloride (KLOR-CON) 20 mEq Extended Release tablet Take 1 Tablet (20 mEq) by mouth daily. 30 Tablet 3 07/11/2021 02/27/2022 documented as of this encounter Progress Notes * Thelma Ken MD - 01/07/2022 9:17 AM CDT Surgical Oncology Daily Progress Note - 01/07/2022 Subjective: Patient feels well, tolerated soft diet without significant nausea or vomiting. Having flatus and bowel movements. No further drainage since Prevena placed. Walking well. Denies shortness of breath. Practicing incentive spirometry to ~1,000ml. Wants to go home. Objective: Vitals: 01/06/22 0732 01/06/22 1537 01/07/22 0015 01/07/22 0736 BP: 133/78 (!) 146/79 (!) 143/78 129/69 BP Location: Right arm Right arm Right arm Right arm Patient Position (BP): Sitting Sitting Supine Supine Pulse: 81 94 90 77 Resp: 18 18 18 18 Temp: 98.8 ??F (37.1 ??C) 98.3 ??F (36.8 ??C) 98.8 ??F (37.1 ??C) 98.7 ??F (37.1 ??C) TempSrc: Oral Oral Oral Oral SpO2: 97% 99% 96% 95% Weight: Height: Vitals: afebrile I&O: adequate General appearance: alert, in no distress Psych: appropriate affect HEENT: anicteric Pulm: no stridor CV: RRR Abdomen: soft; ND; appropriately tender, Incision dressed with Prevena JAIME #1 (above pancreatic anastomosis): 90 ml, cuello JAIME #2 (below pancreatic anastomosis): 15 ml, cuello Prevena: scant output, serous Results for orders placed or performed during the hospital encounter of 12/29/21 (from the past 24 hour(s)) CBC WITHOUT DIFFERENTIAL Result Value Ref Range WBC 11.7 (H) 4.5 - 10.5 K/uL RBC 3.24 (L) 3.90 - 4.90 M/uL HEMOGLOBIN 8.9 (L) 11.8 - 14.8 g/dL HEMATOCRIT 27.2 (L) 35.5 - 44.0 % MCV 84.0 82.0 - 99.0 fL MCH 27.4 (L) 27.8 - 34.5 pg MCHC 32.6 32.5 - 35.5 g/dL PLATELETS 421 (H) 160 - 420 K/uL MPV 7.6 (L) 8.7 - 12.7 fL RDW 16.9 (H) 11.5 - 14.5 % BASIC METABOLIC PANEL Result Value Ref Range SODIUM 140 136 - 145 mmol/L POTASSIUM 3.3 (L) 3.4 - 5.1 mmol/L CHLORIDE 102 98 - 107 mmol/L CO2 24 22 - 29 mmol/L CALCIUM 8.6 8.6 - 10.4 mg/dL BUN 13 6 - 20 mg/dL CREATININE 0.63 0.51 - 0.95 mg/dL GLUCOSE 103 (H) 74 - 99 mg/dL GFR >60 >=60 mL/min/1.73 sq meter ANION GAP 14 8 - 16 mmol/L BASIC METABOLIC PANEL Result Value Ref Range SODIUM 135 (L) 136 - 145 mmol/L POTASSIUM 3.4 3.4 - 5.1 mmol/L CHLORIDE 99 98 - 107 mmol/L CO2 25 22 - 29 mmol/L CALCIUM 8.2 (L) 8.6 - 10.4 mg/dL BUN 9 6 - 20 mg/dL CREATININE 0.66 0.51 - 0.95 mg/dL GLUCOSE 102 (H) 74 - 99 mg/dL GFR >60 >=60 mL/min/1.73 sq meter ANION GAP 11 8 - 16 mmol/L CBC WITHOUT DIFFERENTIAL Result Value Ref Range WBC 10.7 (H) 4.5 - 10.5 K/uL RBC 2.81 (L) 3.90 - 4.90 M/uL HEMOGLOBIN 8.0 (L) 11.8 - 14.8 g/dL HEMATOCRIT 23.2 (L) 35.5 - 44.0 % MCV 82.5 82.0 - 99.0 fL MCH 28.3 27.8 - 34.5 pg MCHC 34.4 32.5 - 35.5 g/dL PLATELETS 385 160 - 420 K/uL MPV 7.3 (L) 8.7 - 12.7 fL RDW 17.2 (H) 11.5 - 14.5 % Assessment: Active Hospital Problems Diagnosis ??? Primary cancer of ampulla of Vater ??? COPD (chronic obstructive pulmonary disease) ??? Benign hypertension Resolved Hospital Problems No resolved problems to display. Plan: POD 9 66 year old female status post pylorus preserving pancreaticoduodenectomy for ampullary carcinoma - replace K+ - change q8 heparin to Lovenox, pharmacy to adjust dose as necessary - resume home HCTZ - continue Prevena on Midline incision to capture drainage - patient prefers not to wait until Saturday for HH discharge, will discharge home tomorrow if continued good progress of recovery - encourage PO intake - encouraged ambulation and incentive spirometry use Thelma Ken MD 01/07/2022 * Thelma Ken MD - 01/06/2022 9:39 AM CDT Surgical Oncology Daily Progress Note - 01/06/2022 Subjective: Patient feels well, tolerated soft diet without significant nausea or vomiting. Having flatus and bowel movements. Started leaking moderate serosanguinous fluid from midline incision overnight. no fevers or pain associated with that. Walking well. Denies shortness of breath. Practicing incentive spirometry to ~1,000ml. Objective: Vitals: 01/05/22202101/06/22 0015 01/06/22 0419 01/06/22 0732 BP: (!) 150/73 119/63 (!) 145/81 133/78 BP Location: Right arm Right arm Right arm Patient Position (BP): Supine Supine Sitting Pulse: 94 97 88 81 Resp: 18 18 18 18 Temp: 99.4 ??F (37.4 ??C) 99.4 ??F (37.4 ??C) 99.5 ??F (37.5 ??C) 98.8 ??F (37.1 ??C) TempSrc: Oral Oral Oral Oral SpO2: 96% 100% 99% 97% Weight: Height: Vitals: afebrile I&O: adequate General appearance: alert, in no distress Psych: appropriate affect HEENT: anicteric Pulm: no stridor CV: RRR Abdomen: soft; ND; appropriately tender, Incision intact with Serosanguinous drainage between upperand middle third JAIME #1 (above pancreatic anastomosis): 70 ml, cuello JAIME #2 (below pancreatic anastomosis): 10 ml, cuello No results found for this visit on 12/29/21 (from the past 24 hour(s)). Assessment: Active Hospital Problems Diagnosis ??? Primary cancer of ampulla of Vater ??? COPD (chronic obstructive pulmonary disease) ??? Benign hypertension Resolved Hospital Problems No resolved problems to display. Plan: POD 8 66 year old female status post pylorus preserving pancreaticoduodenectomy for ampullary carcinoma - await labs today - Midline demonstrating seroma versus pancreatic fistula necessitation; will place Prevena on Midline incision to capture drainage - no discharge today, Home Health not set up - encourage PO intake - encouraged ambulation and incentive spirometry use Thelma Ken MD 01/06/2022 * Thelma Ken MD - 01/05/2022 8:08 AM CDT Surgical Oncology Daily Progress Note - 01/05/2022 Subjective: Patient feels well, tolerated clear liquid diet without nausea or vomiting. Having flatus and bowelmovements. Walking well. Denies shortness of breath. Wants to stay one additional night. Practicingincentive spirometry to ~1,000ml. Objective: Vitals: 01/04/22 1646 01/04/22 1928 01/05/22 0100 01/05/22 0400 BP: (!) 155/92 (!) 144/79 133/86 135/75 BP Location: Right arm Right arm Right arm Right arm Patient Position (BP): Sitting Supine Supine Supine Pulse: 85 88 Resp: 17 18 18 18 Temp: 98.6 ??F (37 ??C) 98.2 ??F (36.8 ??C) 98.3 ??F (36.8 ??C) 98.9 ??F (37.2 ??C) TempSrc: Oral Oral Oral Oral SpO2: 99% 100% 97% 94% Weight: 67.3 kg (148 lb 5.9 oz) Height: 5' 2 (1.575 m) Vitals: afebrile I&O: adequate General appearance: alert, in no distress Psych: appropriate affect HEENT: anicteric Pulm: no stridor CV: RRR Abdomen: soft; ND; appropriately tender, Incision clean, dry and intact JAIME #1 (above pancreatic anastomosis): 80 ml, cuello JAIME #2 (below pancreatic anastomosis): 15 ml, cuello Results for orders placed or performed during the hospital encounter of 12/29/21 (from the past 24 hour(s)) POC GLUCOSE Result Value Ref Range GLUCOSE POC 118 (H) 74 - 99 mg/dL POC GLUCOSE Result Value Ref Range GLUCOSE POC 105 (H) 74 - 99 mg/dL POC GLUCOSE Result Value Ref Range GLUCOSE POC 73 (L) 74 - 99 mg/dL POC GLUCOSE Result Value Ref Range GLUCOSE POC 124 (H) 74 - 99 mg/dL POC GLUCOSE Result Value Ref Range GLUCOSE POC 104 (H) 74 - 99 mg/dL CBC WITHOUT DIFFERENTIAL Result Value Ref Range WBC 8.9 4.5 - 10.5 K/uL RBC 3.54 (L) 3.90 - 4.90 M/uL HEMOGLOBIN 9.6 (L) 11.8 - 14.8 g/dL HEMATOCRIT 29.7 (L) 35.5 - 44.0 % MCV 84.0 82.0 - 99.0 fL MCH 27.1 (L) 27.8 - 34.5 pg MCHC 32.2 (L) 32.5 - 35.5 g/dL PLATELETS 376 160 - 420 K/uL MPV 7.8 (L) 8.7 - 12.7 fL RDW 17.2 (H) 11.5 - 14.5 % BASIC METABOLIC PANEL Result Value Ref Range SODIUM 139 136 - 145 mmol/L POTASSIUM 2.9 (L) 3.4 - 5.1 mmol/L CHLORIDE 100 98 - 107 mmol/L CO2 24 22 - 29 mmol/L CALCIUM 8.7 8.6 - 10.4 mg/dL BUN 12 6 - 20 mg/dL CREATININE 0.67 0.51 - 0.95 mg/dL GLUCOSE 108 (H) 74 - 99 mg/dL GFR >60 >=60 mL/min/1.73 sq meter ANION GAP 15 8 - 16 mmol/L Assessment: Active Hospital Problems Diagnosis ??? Primary cancer of ampulla of Vater ??? COPD (chronic obstructive pulmonary disease) ??? Benign hypertension Resolved Hospital Problems No resolved problems to display. Plan: POD 7 66 year old female status post pylorus preserving pancreaticoduodenectomy for ampullary carcinoma - replace K+ - drain output appropriate - advance diet to soft - hold HCTZ for now - potential discharge Saturday - encouraged ambulation and incentive spirometry use Thelma Ken MD 01/05/2022 * Beatriz Self RN - 01/04/2022 6:17 PM CDT Report called to Anastacia LOPEZ, pt will be going to room 0. * Thelma Ken MD - 01/04/2022 9:22 AM CDT Surgical Oncology Daily Progress Note - 01/04/2022 Subjective: Patient feels good today, though had some nausea and vomiting overnight. She thinks she took the liquids too quickly. Feeling better this morning. Had two large, loose bowel movements overnight. Wants to talk. Practicing incentive spirometry to ~1,000ml. Objective: Vitals: 01/03/22 2000 01/04/22 0008 01/04/22 0400 01/04/22 0823 BP: (!) 146/87 128/71 (!) 157/90 (!) 144/76 BP Location: Right arm Right arm Right arm Left arm Patient Position (BP): Sitting Supine Supine Supine Pulse: 91 90 94 Resp: 16 18 18 16 Temp: 98.4 ??F (36.9 ??C) 97.8 ??F (36.6 ??C) 97.9 ??F (36.6 ??C) 99 ??F (37.2 ??C) TempSrc: Axillary Axillary Oral Oral SpO2: 100% 100% 100% 100% Weight: Height: Vitals: afebrile I&O: adequate General appearance: alert, in no distress Psych: appropriate affect HEENT: anicteric Pulm: no stridor CV: RRR Abdomen: soft; ND; appropriately tender, Incision clean, dry and intact JAIME #1 (above pancreatic anastomosis): 70 ml, cuello JAIME #2 (below pancreatic anastomosis): 10 ml, cuello Results for orders placed or performed during the hospital encounter of 12/29/21 (from the past 24 hour(s)) POC GLUCOSE Result Value Ref Range GLUCOSE POC 91 74 - 99 mg/dL POC GLUCOSE Result Value Ref Range GLUCOSE POC 102 (H) 74 - 99 mg/dL POC GLUCOSE Result Value Ref Range GLUCOSE POC 102 (H) 74 - 99 mg/dL POC GLUCOSE Result Value Ref Range GLUCOSE POC 117 (H) 74 - 99 mg/dL CBC WITHOUT DIFFERENTIAL Result Value Ref Range WBC 8.7 4.5 - 10.5 K/uL RBC 3.16 (L) 3.90 - 4.90 M/uL HEMOGLOBIN 8.8 (L) 11.8 - 14.8 g/dL HEMATOCRIT 26.4 (L) 35.5 - 44.0 % MCV 83.6 82.0 - 99.0 fL MCH 27.7 (L) 27.8 - 34.5 pg MCHC 33.2 32.5 - 35.5 g/dL PLATELETS 334 160 - 420 K/uL MPV 7.2 (L) 8.7 - 12.7 fL RDW 17.3 (H) 11.5 - 14.5 % BASIC METABOLIC PANEL Result Value Ref Range SODIUM 145 136 - 145 mmol/L POTASSIUM 2.7 (L) 3.4 - 5.1 mmol/L CHLORIDE 106 98 - 107 mmol/L CO2 27 22 - 29 mmol/L CALCIUM 9.1 8.6 - 10.4 mg/dL BUN 17 6 - 20 mg/dL CREATININE 0.72 0.51 - 0.95 mg/dL GLUCOSE 138 (H) 74 - 99 mg/dL GFR >60 >=60 mL/min/1.73 sq meter ANION GAP 12 8 - 16 mmol/L Assessment: Active Hospital Problems Diagnosis ??? Primary cancer of ampulla of Vater ??? COPD (chronic obstructive pulmonary disease) ??? Benign hypertension Resolved Hospital Problems No resolved problems to display. Plan: POD 6 66 year old female status post pylorus preserving pancreaticoduodenectomy for ampullary carcinoma - no evidence of leak on UGI yesterday - continue clear liquid diet for now, patient encouraged to go slowly - replace K+ - drain output appropriate - potential discharge Saturday - encouraged ambulation and incentive spirometry use Thelma Ken MD 01/04/2022 * Thelma Ken MD - 01/03/2022 10:20 AM CDT Surgical Oncology Daily Progress Note - 01/03/2022 Subjective: Patient feels great today. Pain is controlled. Denies shortness of breath. Has only walked to the chair and some in the room. Reports she has had no flatus, no bowel movement yet. Practicing incentive spirometry to ~1,000ml. Encouraged to have nasogastric tube removed. Objective: Vitals: 01/02/22 2227 01/03/22 0049 01/03/22 0421 01/03/22 0809 BP: 139/83 (!) 142/91 138/73 (!) 158/87 BP Location: Left arm Left arm Left arm Right arm Patient Position (BP): Supine Supine Supine Supine Pulse: 97 77 79 Resp: 16 16 16 17 Temp: 98.7 ??F (37.1 ??C) 98.4 ??F (36.9 ??C) 98.3 ??F (36.8 ??C) 98.2 ??F (36.8 ??C) TempSrc: Oral Oral Oral Oral SpO2: 100% 100% 93% 95% Weight: Height: Vitals: afebrile I&O: adequate General appearance: alert, in no distress Psych: appropriate affect HEENT: anicteric Pulm: no stridor CV: RRR Abdomen: soft; ND; appropriately tender, Incision clean, dry and intact JAIME #1 (above pancreatic anastomosis): 50 ml, cuello JAIME #2 (below pancreatic anastomosis): 85 ml, cuello NGT: 700 ml bilious output in canister Results for orders placed or performed during the hospital encounter of 12/29/21 (from the past 24 hour(s)) POC GLUCOSE Result Value Ref Range GLUCOSE POC 143 (H) 74 - 99 mg/dL POC GLUCOSE Result Value Ref Range GLUCOSE POC 131 (H) 74 - 99 mg/dL POC GLUCOSE Result Value Ref Range GLUCOSE POC 125 (H) 74 - 99 mg/dL POC GLUCOSE Result Value Ref Range GLUCOSE POC 126 (H) 74 - 99 mg/dL POC GLUCOSE Result Value Ref Range GLUCOSE POC 135 (H) 74 - 99 mg/dL CBC WITHOUT DIFFERENTIAL Result Value Ref Range WBC 8.3 4.5 - 10.5 K/uL RBC 2.98 (L) 3.90 - 4.90 M/uL HEMOGLOBIN 8.2 (L) 11.8 - 14.8 g/dL HEMATOCRIT 25.4 (L) 35.5 - 44.0 % MCV 85.2 82.0 - 99.0 fL MCH 27.4 (L) 27.8 - 34.5 pg MCHC 32.1 (L) 32.5 - 35.5 g/dL PLATELETS 276 160 - 420 K/uL MPV 6.8 (L) 8.7 - 12.7 fL RDW 17.2 (H) 11.5 - 14.5 % COMPREHENSIVE METABOLIC PANEL Result Value Ref Range SODIUM 149 (H) 136 - 145 mmol/L POTASSIUM 3.6 3.4 - 5.1 mmol/L CHLORIDE 111 (H) 98 - 107 mmol/L CO2 29 22 - 29 mmol/L CALCIUM 8.9 8.6 - 10.4 mg/dL BUN 12 6 - 20 mg/dL CREATININE 0.60 0.51 - 0.95 mg/dL GLUCOSE 128 (H) 74 - 99 mg/dL TOTAL PROTEIN 6.3 6.3 - 8.7 g/dL ALBUMIN 2.9 (L) 3.5 - 5.2 g/dL BILIRUBIN TOTAL 0.2 0.2 - 1.1 mg/dL ALKALINE PHOSPHATASE 79 40 - 150 U/L AST 10 0 - 33 U/L ALT 15 0 - 33 U/L GFR >60 >=60 mL/min/1.73 sq meter ANION GAP 9 8 - 16 mmol/L POC GLUCOSE Result Value Ref Range GLUCOSE POC 118 (H) 74 - 99 mg/dL Assessment: Active Hospital Problems Diagnosis ??? Primary cancer of ampulla of Vater ??? COPD (chronic obstructive pulmonary disease) ??? Benign hypertension Resolved Hospital Problems No resolved problems to display. Plan: POD 5 66 year old female status post pylorus preserving pancreaticoduodenectomy for ampullary carcinoma - continue NGT/NPO until UGI study today. If negative for leak, will remove nasogastric tube and start CLD with supplements - continue IVP Morphine for breakthrough - Drain output appropriate, consistency appears to demonstrate pancreatic fistula (asymptomatic) - Marroquin to be removed this afternoon - potential discharge Saturday - encouraged ambulation and incentive spirometry use Thelma Ken MD 01/03/2022 * Halina Shafer RN - 01/03/2022 7:57 AM CDT Acute Pain Progress Note This patient was seen and examined by Dr. Dr. Hardy Epidural Day: 6 Patient Name: Krissy Dillon SUBJECTIVE: Pruritus No; N/VNo; slept well overnight Yes; NPO Pain: 2 Location: midlineincisional OBJECTIVE: BP (!) 158/87 (BP Location: Right arm, Patient Position (BP): Supine) Pulse 79 Temp 98.2 ??F (36.8 ??C) (Oral) Resp 17 Ht 5' 2 (1.575 m) Wt 67.3 kg (148 lb 5.9 oz) SpO2 95% BMI 27.14 kg/m?? Temp (24hrs), Av.4 ??F (36.9 ??C), Min:98.2 ??F (36.8 ??C), Max:98.7 ??F (37.1 ??C) Gen: alert, oriented x 3 Neuro:no focal motor/sensory deficits Site: dressing clean, dry and intact;no erythema,drainage, or tenderness to palpation Lab Results Component Value Date/Time INR 0.9 12/25/2021 11:04 AM PT 12.5 12/25/2021 11:04 AM Lab Results Component Value Date/Time WBC 8.3 01/03/2022 04:14 AM HGB 8.2 (L) 01/03/2022 04:14 AM HGBPOC 11.5 (L) 12/29/2021 02:59 PM HGBPOC 11.5 (L) 12/29/2021 02:59 PM HGBPOC 11.5 (L) 12/29/2021 02:59 PM HGBPOC 11.5 (L) 12/29/2021 02:59 PM HCT 25.4 (L) 01/03/2022 04:14 AM HCTPOC 35 12/29/2021 02:59 PM PLT 276 01/03/2022 04:14 AM MCV 85.2 01/03/2022 04:14 AM Lab Results Component Value Date/Time CREAT 0.60 01/03/2022 04:14 AM ASSESSMENT: Adequate Pain Control Yes PLAN: Epidural # 6 . S/p Procedure(s): DIAGNOSTIC LAPAROSCOPY , EXPLORATORY LAPROTOMY PANCREATICODUODENECTOMY (WHIPPLE PROCEDURE) Epidural: Catheter removed with tip intact. Pain medication per primary service Continue current management. Call with questions. Halina Shafer RN 01/03/2022 9:08 AM * Mac Caldera RN - 01/03/2022 6:08 AM CDT Bedside shift report given. RN at bedside hourly for safety checks throughout shift. Sleep hygiene was promoted and pt was turned q2h with pillow support utilized. I&O's were monitored and documented within flowsheet accordingly. Pt pain was adressed with medications and repositioning. Comfort measure were taken with clean linens and warm blankets. Pulmonary hygiene was promoted with cough and deep breathing. Pt VS were stable throughout shift and WDL for pt status and history. No deviations noted from baseline assessment. Education was provided to pt regarding medications and plan of care. Pt oriented and stated they understood education provided and agreed with plan of care/care provided. Pt ambulation promoted with ROM exercises. Hygiene maintained with chlorhexidine scrub and oralcare provided. Safety measure taken with fall precautions, education, and all alarms active and audible. Pt overall progressing toward goals and recommendations will be provided to oncoming nurse during bedside shift report. * Thelma Ken MD - 01/02/2022 5:59 PM CDT Surgical Oncology Daily Progress Note - 01/02/2022 Subjective: Patient feels great today. Pain is controlled. Denies shortness of breath. Has only walked to the chair and some in the room. Feels she has passed some flatus, no bowel movement yet. Practicing incentive spirometry to ~1,000ml. Objective: Vitals: 01/01/22 2343 01/02/22 0413 01/02/22 0809 01/02/22 1144 BP: 139/79 (!) 144/89 132/73 129/66 BP Location: Left arm Left arm Left arm Left arm Patient Position (BP): Supine Supine Supine Sitting Pulse: 100 99 86 Resp: 19 16 20 Temp: 98.9 ??F (37.2 ??C) 98.5 ??F (36.9 ??C) 98.3 ??F (36.8 ??C) 98.5 ??F (36.9 ??C) TempSrc: Oral Oral Oral Oral SpO2: 98% 98% 94% 100% Weight: Height: Vitals: afebrile I&O: adequate General appearance: alert, in no distress Psych: appropriate affect HEENT: anicteric Pulm: no stridor CV: RRR Abdomen: soft; ND; appropriately tender, Incision clean, dry and intact JAIME #1 (above pancreatic anastomosis): 27 ml, Serosanguinous JAIME #2 (below pancreatic anastomosis): 25 ml, Serosanguinous NGT: Not recorded. 245 ml bilious output in canister Results for orders placed or performed during the hospital encounter of 12/29/21 (from the past 24 hour(s)) POC GLUCOSE Result Value Ref Range GLUCOSE POC 131 (H) 74 - 99 mg/dL POC GLUCOSE Result Value Ref Range GLUCOSE POC 132 (H) 74 - 99 mg/dL POC GLUCOSE Result Value Ref Range GLUCOSE POC 125 (H) 74 - 99 mg/dL POC GLUCOSE Result Value Ref Range GLUCOSE POC 157 (H) 74 - 99 mg/dL CBC WITHOUT DIFFERENTIAL Result Value Ref Range WBC 10.7 (H) 4.5 - 10.5 K/uL RBC 2.99 (L) 3.90 - 4.90 M/uL HEMOGLOBIN 8.3 (L) 11.8 - 14.8 g/dL HEMATOCRIT 25.4 (L) 35.5 - 44.0 % MCV 84.9 82.0 - 99.0 fL MCH 27.8 27.8 - 34.5 pg MCHC 32.8 32.5 - 35.5 g/dL PLATELETS 267 160 - 420 K/uL MPV 7.5 (L) 8.7 - 12.7 fL RDW 16.4 (H) 11.5 - 14.5 % COMPREHENSIVE METABOLIC PANEL Result Value Ref Range SODIUM 149 (H) 136 - 145 mmol/L POTASSIUM 3.7 3.4 - 5.1 mmol/L CHLORIDE 109 (H) 98 - 107 mmol/L CO2 29 22 - 29 mmol/L CALCIUM 8.9 8.6 - 10.4 mg/dL BUN 11 6 - 20 mg/dL CREATININE 0.65 0.51 - 0.95 mg/dL GLUCOSE 148 (H) 74 - 99 mg/dL TOTAL PROTEIN 6.1 (L) 6.3 - 8.7 g/dL ALBUMIN 3.1 (L) 3.5 - 5.2 g/dL BILIRUBIN TOTAL 0.4 0.2 - 1.1 mg/dL ALKALINE PHOSPHATASE 79 40 - 150 U/L AST 13 0 - 33 U/L ALT 18 0 - 33 U/L GFR >60 >=60 mL/min/1.73 sq meter ANION GAP 11 8 - 16 mmol/L POC GLUCOSE Result Value Ref Range GLUCOSE POC 160 (H) 74 - 99 mg/dL POC GLUCOSE Result Value Ref Range GLUCOSE POC 143 (H) 74 - 99 mg/dL POC GLUCOSE Result Value Ref Range GLUCOSE POC 131 (H) 74 - 99 mg/dL Assessment: Active Hospital Problems Diagnosis ??? Primary cancer of ampulla of Vater ??? COPD (chronic obstructive pulmonary disease) ??? Benign hypertension Resolved Hospital Problems No resolved problems to display. 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 Dr eTjeda Epidural Day: 5 Patient Name: Krissy Dillon SUBJECTIVE: Pruritus No; N/VNo; slept well overnight Yes; NPO Pain: 2 Location: midlineincisional OBJECTIVE: BP 132/73 (BP Location: Left arm, Patient Position (BP): Supine) Pulse 99 Temp 98.3 ??F (36.8 ??C) (Oral) Resp 16 Ht 5' 2 (1.575 m) Wt 67.3 kg (148 lb 5.9 oz) SpO2 94% BMI 27.14 kg/m?? Temp (24hrs), Av.4 ??F (36.9 ??C), Min:98 ??F (36.7 ??C), Max:98.9 ??F (37.2 ??C) Gen: alert, oriented x 3 Neuro:no focal motor/sensory deficits Site: dressing clean, dry and intact;no erythema,drainage, or tenderness to palpation Lab Results Component Value Date/Time INR 0.9 12/25/2021 11:04 AM PT 12.5 12/25/2021 11:04 AM Lab Results Component Value Date/Time WBC 10.7 (H) 01/02/2022 06:31 AM HGB 8.3 (L) 01/02/2022 06:31 AM HGBPOC 11.5 (L) 12/29/2021 02:59 PM HGBPOC 11.5 (L) 12/29/2021 02:59 PM HGBPOC 11.5 (L) 12/29/2021 02:59 PM HGBPOC 11.5 (L) 12/29/2021 02:59 PM HCT 25.4 (L) 01/02/2022 06:31 AM HCTPOC 35 12/29/2021 02:59 PM PLT 267 01/02/2022 06:31 AM MCV 84.9 01/02/2022 06:31 AM Lab Results Component Value Date/Time CREAT 0.65 01/02/2022 06:31 AM ASSESSMENT: Adequate Pain Control Yes PLAN: Epidural # 5 . S/p Procedure(s): DIAGNOSTIC LAPAROSCOPY , EXPLORATORY LAPROTOMY PANCREATICODUODENECTOMY (WHIPPLE PROCEDURE) Plan to remove Epidural catheter tomorrow 01/03 Epidural: Infusion:Ropivacaine 0.0625% with 20mcg/mL dilaudid @ 10 mL/hr Continue current management. Call with questions. Halina Shafer RN 01/02/2022 9:49 AM * Ammy Avalos, JESSICA - 01/02/2022 2:56 AM CDT 190-BSSR received from JOSE Angel. Pt in bed alert and awake, on NC 3.5L, no signs of acute distress. Pt has an NGT for gastric content aspiration. Has ropivacaine and KCL infusion. VSS, pain assessed, toileting addressed, call light within reach and bed alarm activated. * Crystal Mahan - 01/01/2022 10:45 AM CDT Pastoral Care Note Brand Lead: CRYSTAL MAHAN Patient: Krissy Dillon RM: [id number] Tenriism: Sikhism Referral (BPA) Routine, initial visit Brand Lead found patient awake and propped up in bed. Her daughter was nearby. Patient has a very positive outlook and stated that she is feeling good today. Brand Lead introduced the pastoral services to patient and let her know how to reach a solid propellant processor. Brand Lead will remain available at X [phone]. * Thelma Ken MD - 01/01/2022 8:30 AM CDT Surgical Oncology Daily Progress Note - 01/01/2022 Subjective: Patient feels better today than yesterday, states she was a little sleepy and confused Saturday but got some rest last night and no longer feels that way. Pain is controlled. Denies shortness of breath. Has only walked to the chair. Practicing incentive spirometry to ~1,000ml. Objective: Vitals: 12/31/21201312/31/21 2344 01/01/22 0400 01/01/22 0815 BP: 119/70 133/81 (!) 117/93 137/75 BP Location: Left arm Right arm Left arm Left arm Patient Position (BP): Sitting Supine Supine Supine Pulse: (!) 112 (!) 101 (!) 102 93 Resp: Temp: 98.6 ??F (37 ??C) 98 ??F (36.7 ??C) 98.5 ??F (36.9 ??C) 98.7 ??F (37.1 ??C) TempSrc: Oral Axillary Axillary Oral SpO2: 99% 100% 97% 97% Weight: Height: Vitals: afebrile I&O: adequate General appearance: alert, in no distress Psych: appropriate affect HEENT: anicteric Pulm: no stridor CV: RRR Abdomen: soft; ND; appropriately tender, Incision clean, dry and intact JAIME #1 (above pancreatic anastomosis): 25 ml, Serosanguinous JAIME #2 (below pancreatic anastomosis): 15 ml, Serosanguinous NGT: Not recorded. 440 ml bilious output in canister Results for orders placed or performed during the hospital encounter of 12/29/21 (from the past 24 hour(s)) POC GLUCOSE Result Value Ref Range GLUCOSE POC 127 (H) 74 - 99 mg/dL POC GLUCOSE Result Value Ref Range GLUCOSE POC 130 (H) 74 - 99 mg/dL POC GLUCOSE Result Value Ref Range GLUCOSE POC 152 (H) 74 - 99 mg/dL POC GLUCOSE Result Value Ref Range GLUCOSE POC 142 (H) 74 - 99 mg/dL POC GLUCOSE Result Value Ref Range GLUCOSE POC 133 (H) 74 - 99 mg/dL POC GLUCOSE Result Value Ref Range GLUCOSE POC 140 (H) 74 - 99 mg/dL CBC WITHOUT DIFFERENTIAL Result Value Ref Range WBC 10.1 4.5 - 10.5 K/uL RBC 3.12 (L) 3.90 - 4.90 M/uL HEMOGLOBIN 8.5 (L) 11.8 - 14.8 g/dL HEMATOCRIT 26.6 (L) 35.5 - 44.0 % MCV 85.2 82.0 - 99.0 fL MCH 27.4 (L) 27.8 - 34.5 pg MCHC 32.2 (L) 32.5 - 35.5 g/dL PLATELETS 227 160 - 420 K/uL MPV 6.8 (L) 8.7 - 12.7 fL RDW 16.5 (H) 11.5 - 14.5 % COMPREHENSIVE METABOLIC PANEL Result Value Ref Range SODIUM 145 136 - 145 mmol/L POTASSIUM 3.9 3.4 - 5.1 mmol/L CHLORIDE 109 (H) 98 - 107 mmol/L CO2 28 22 - 29 mmol/L CALCIUM 9.2 8.6 - 10.4 mg/dL BUN 13 6 - 20 mg/dL CREATININE 0.63 0.51 - 0.95 mg/dL GLUCOSE 145 (H) 74 - 99 mg/dL TOTAL PROTEIN 6.3 6.3 - 8.7 g/dL ALBUMIN 3.3 (L) 3.5 - 5.2 g/dL BILIRUBIN TOTAL 0.3 0.2 - 1.1 mg/dL ALKALINE PHOSPHATASE 75 40 - 150 U/L AST 21 0 - 33 U/L ALT 28 0 - 33 U/L GFR >60 >=60 mL/min/1.73 sq meter ANION GAP 8 8 - 16 mmol/L Assessment: Active Hospital Problems Diagnosis Primary cancer of ampulla of Vater COPD (chronic obstructive pulmonary disease) Benign hypertension Resolved Hospital Problems No resolved problems to display. 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 Dr Tejeda Epidural Day: 4 Patient Name: Krissy Dillon SUBJECTIVE: Pruritus No; N/VNo; slept well overnight Yes; NPO Pain: 3 Location: midlineincisional OBJECTIVE: BP 137/75 (BP Location: Left arm, Patient Position (BP): Supine) Pulse 93 Temp 98.7 ??F (37.1 ??C) (Oral) Resp 20 Ht 5' 2 (1.575 m) Wt 67.3 kg (148 lb 5.9 oz) SpO2 97% BMI 27.14 kg/m?? Temp (24hrs), Av.5 ??F (36.9 ??C), Min:98 ??F (36.7 ??C), Max:98.7 ??F (37.1 ??C) Gen: alert, oriented x 3 Neuro:no focal motor/sensory deficits Site: dressing clean, dry and intact;no erythema,drainage, or tenderness to palpation Lab Results Component Value Date/Time INR 0.9 12/25/2021 11:04 AM PT 12.5 12/25/2021 11:04 AM Lab Results Component Value Date/Time WBC 10.1 01/01/2022 04:18 AM HGB 8.5 (L) 01/01/2022 04:18 AM HGBPOC 11.5 (L) 12/29/2021 02:59 PM HGBPOC 11.5 (L) 12/29/2021 02:59 PM HGBPOC 11.5 (L) 12/29/2021 02:59 PM HGBPOC 11.5 (L) 12/29/2021 02:59 PM HCT 26.6 (L) 01/01/2022 04:18 AM HCTPOC 35 12/29/2021 02:59 PM PLT 227 01/01/2022 04:18 AM MCV 85.2 01/01/2022 04:18 AM Lab Results Component Value Date/Time CREAT 0.63 01/01/2022 04:18 AM ASSESSMENT: Adequate Pain Control Yes PLAN: Epidural # 4 . S/p Procedure(s): DIAGNOSTIC LAPAROSCOPY , EXPLORATORY LAPROTOMY PANCREATICODUODENECTOMY (WHIPPLE PROCEDURE) Epidural: Infusion:Ropivacaine 0.0625% with 20mcg/mL dilaudid @ 10 mL/hr Continue current management. Call with questions. Halina Shafer RN 01/01/2022 8:30 AM * Susanne Oleary MD - 12/31/2021 8:34 AM CDT Acute Pain Progress Note This patient was seen and examined by Dr. Dr Clark Epidural Day: 2 Patient Name: Krissy Dillon SUBJECTIVE: Pruritus No; N/VNo; slept well overnight Yes; NPO Pain: 3 Location: bilateralincisional OBJECTIVE: BP 123/79 (BP Location: Left arm, Patient Position (BP): Supine) Pulse 95 Temp 36.6 ??C (Axillary) Resp 18 Ht 5' 2 (1.575 m) Wt 67.3 kg (148 lb 5.9 oz) SpO2 100% BMI 27.14 kg/m?? Temp (24hrs), Av.9 ??C, Min:36.6 ??C, Max:37.2 ??C Gen: alert, oriented x 3 Neuro:no focal motor/sensory deficits Site: dressing clean, dry and intact;no erythema,drainage, or tenderness to palpation Lab Results Component Value Date/Time INR 0.9 12/25/2021 11:04 AM PT 12.5 12/25/2021 11:04 AM Lab Results Component Value Date/Time WBC 12.9 (H) 12/31/2021 05:23 AM HGB 9.5 (L) 12/31/2021 05:23 AM HGBPOC 11.5 (L) 12/29/2021 02:59 PM HGBPOC 11.5 (L) 12/29/2021 02:59 PM HGBPOC 11.5 (L) 12/29/2021 02:59 PM HGBPOC 11.5 (L) 12/29/2021 02:59 PM HCT 29.3 (L) 12/31/2021 05:23 AM HCTPOC 35 12/29/2021 02:59 PM PLT 243 12/31/2021 05:23 AM MCV 85.1 12/31/2021 05:23 AM Lab Results Component Value Date/Time CREAT 0.79 12/31/2021 05:23 AM ASSESSMENT: Adequate Pain Control Yes PLAN: Epidural # 2 . S/p Procedure(s): DIAGNOSTIC LAPAROSCOPY , EXPLORATORY LAPROTOMY PANCREATICODUODENECTOMY (WHIPPLE PROCEDURE) Epidural: Infusion:Ropivacaine 0.0625% with 20mcg/mL dilaudid @ 10 mL/hr Continue current management. Call with questions. Susanne Oleary MD 12/31/2021 8:34 AM * Thelma Ken MD - 12/30/2021 11:32 AM CDT Surgical Oncology Daily Progress Note - 12/30/2021 Subjective: Patient feels sore this morning and states that her pain is not completely controlled. She has not been visited by anesthesia yet to adjust the epidural. She is up in the chair, and says it feels good to sit upright. She has not practiced incentive spirometry yet, but will do so. She is encouraged to hear of the positive findings from the surgery and the completion of the resection yesterday as planned. Denies nausea or vomiting, shortness of breath, or other complaints. Objective: Vitals: 12/30/21 0000 12/30/21 0536 12/30/21 0845 12/30/21 1003 BP: 120/74 116/78 104/72 BP Location: Right arm Right arm Right arm Patient Position (BP): Supine Supine Sitting Pulse: (!) 114 (!) 111 (!) 103 Resp: 14 14 18 Temp: 97.7 ??F (36.5 ??C) 98.5 ??F (36.9 ??C) 98.9 ??F (37.2 ??C) TempSrc: Oral Oral Axillary SpO2: 93% 96% 97% 97% Weight: Height: Vitals: afebrile I&O: adequate General appearance: alert, in no distress Psych: appropriate affect HEENT: anicteric Pulm: no stridor CV: RRR Abdomen: soft; ND; appropriately tender, Incision clean, dry and intact JAIME #1 (above pancreatic anastomosis): 50 ml, Serosanguinous JAIME #2 (below pancreatic anastomosis): 75 ml, Serosanguinous NGT: Not recorded. ~250ml bilious output in canister Results for orders placed or performed during the hospital encounter of 12/29/21 (from the past 24 hour(s)) BLOOD GAS,(INCL. H+H, LYTES, GLUC) Result Value Ref Range PH BLOOD POC 7.38 7.35 - 7.45 PCO2 POC 33 (L) 35 - 48 mm Hg PO2 POC 203 (H) 83 - 108 mm Hg HCO3 (CALC) POC 20 (L) 22 - 26 mmol/L O2 SATURATION POC 100 (H) 94 - 98 % BASE EXCESS POC -5 (L) -2 - 3 mmol/L HEMOGLOBIN POC 12.2 11.8 - 14.8 g/dL HEMATOCRIT POC 37 35 - 44 % GLUCOSE POC 172 (H) 74 - 99 mg/dL SODIUM POC 136 135 - 145 mmol/L POTASSIUM POC 3.4 (L) 3.5 - 4.9 mmol/L CHLORIDE POC 106 98 - 107 mmol/L CALCIUM IONIZED POC 5.0 4.8 - 5.2 mg/dL PH TEMP CORRECT 7.38 7.35 - 7.45 PCO2 TEMP CORRECT 33 (L) 35 - 48 mm Hg PO2 TEMP CORRECT 203 (H) 83 - 108 mm Hg SPECIMEN SOURCE, GASES POC Arterial PATIENT'S TEMPERATURE POC 37.0 degrees OXYGEN CONTENT POC 17.3 mL/dL CARBOXYHEMOGLOBIN Result Value Ref Range CARBOXYHEMOGLOBIN POC 1.0 <=7.0 % HEMOGLOBIN POC 12.2 11.8 - 14.8 g/dL METHEMOGLOBIN QUANTITATIVE Result Value Ref Range METHEMOGLOBIN QUANT POC 0.2 <=1.5 % HEMOGLOBIN POC 12.2 11.8 - 14.8 g/dL OXIMETRY Result Value Ref Range OXYHEMOGLOBIN POC 98.3 (H) 94.0 - 97.0 % HEMOGLOBIN POC 12.2 11.8 - 14.8 g/dL OXYGEN CONTENT POC 17.3 mL/dL O2 SATURATION POC 100 (H) 94 - 98 % SPECIMEN SOURCE, GASES POC Arterial SAMPLE SITE, GASES POC N-SY POC LACTIC ACID Result Value Ref Range LACTIC ACID POC 4.8 (H) <=2.0 mmol/L SPECIMEN SOURCE, GASES POC Arterial BLOOD GAS,(INCL. H+H, LYTES, GLUC) Result Value Ref Range PH BLOOD POC 7.42 7.35 - 7.45 PCO2 POC 27 (L) 35 - 48 mm Hg PO2 POC 207 (H) 83 - 108 mm Hg HCO3 (CALC) POC 18 (L) 22 - 26 mmol/L O2 SATURATION POC 100 (H) 94 - 98 % BASE EXCESS POC -6 (L) -2 - 3 mmol/L HEMOGLOBIN POC 11.5 (L) 11.8 - 14.8 g/dL HEMATOCRIT POC 35 35 - 44 % GLUCOSE POC 185 (H) 74 - 99 mg/dL SODIUM POC 135 135 - 145 mmol/L POTASSIUM POC 3.7 3.5 - 4.9 mmol/L CHLORIDE POC 106 98 - 107 mmol/L CALCIUM IONIZED POC 4.7 (L) 4.8 - 5.2 mg/dL PH TEMP CORRECT 7.42 7.35 - 7.45 PCO2 TEMP CORRECT 27 (L) 35 - 48 mm Hg PO2 TEMP CORRECT 207 (H) 83 - 108 mm Hg SPECIMEN SOURCE, GASES POC Arterial PATIENT'S TEMPERATURE POC 37.0 degrees OXYGEN CONTENT POC 16.3 mL/dL CARBOXYHEMOGLOBIN Result Value Ref Range CARBOXYHEMOGLOBIN POC 1.4 <=7.0 % HEMOGLOBIN POC 11.5 (L) 11.8 - 14.8 g/dL METHEMOGLOBIN QUANTITATIVE Result Value Ref Range METHEMOGLOBIN QUANT POC 0.0 <=1.5 % HEMOGLOBIN POC 11.5 (L) 11.8 - 14.8 g/dL OXIMETRY Result Value Ref Range OXYHEMOGLOBIN POC 98.2 (H) 94.0 - 97.0 % HEMOGLOBIN POC 11.5 (L) 11.8 - 14.8 g/dL OXYGEN CONTENT POC 16.3 mL/dL O2 SATURATION POC 100 (H) 94 - 98 % SPECIMEN SOURCE, GASES POC Arterial SAMPLE SITE, GASES POC N-SY POC LACTIC ACID Result Value Ref Range LACTIC ACID POC 6.1 (H) <=2.0 mmol/L SPECIMEN SOURCE, GASES POC Arterial CBC WITH DIFFERENTIAL Result Value Ref Range WBC 12.0 (H) 4.5 - 10.5 K/uL RBC 4.21 3.90 - 4.90 M/uL HEMOGLOBIN 11.5 (L) 11.8 - 14.8 g/dL HEMATOCRIT 35.2 (L) 35.5 - 44.0 % MCV 83.5 82.0 - 99.0 fL MCH 27.2 (L) 27.8 - 34.5 pg MCHC 32.6 32.5 - 35.5 g/dL RDW 16.5 (H) 11.5 - 14.5 % PLATELETS 314 160 - 420 K/uL MPV 7.3 (L) 8.7 - 12.7 fL NEUTROPHILS 86 % LYMPHOCYTES 8 % MONOCYTES 6 % EOSINOPHILS 0 % BASOPHILS 0 % NEUTROPHIL ABSOLUTE 10.30 (H) 1.90 - 7.00 K/uL LYMPHOCYTE ABSOLUTE 0.90 0.70 - 4.50 K/uL MONOCYTE ABSOLUTE 0.70 0.10 - 1.30 K/uL EOSINOPHIL ABSOLUTE 0.00 0.00 - 0.70 K/uL BASOPHILS ABSOLUTE 0.00 0.00 - 0.20 K/uL BASIC METABOLIC PANEL Result Value Ref Range SODIUM 141 136 - 145 mmol/L POTASSIUM 4.5 3.4 - 5.1 mmol/L CHLORIDE 107 98 - 107 mmol/L CO2 19 (L) 22 - 29 mmol/L CALCIUM 9.6 8.6 - 10.4 mg/dL BUN 19 6 - 20 mg/dL CREATININE 0.87 0.51 - 0.95 mg/dL GLUCOSE 169 (H) 74 - 99 mg/dL GFR >60 >=60 mL/min/1.73 sq meter ANION GAP 15 8 - 16 mmol/L POC GLUCOSE Result Value Ref Range GLUCOSE POC 159 (H) 74 - 99 mg/dL POC GLUCOSE Result Value Ref Range GLUCOSE POC 160 (H) 74 - 99 mg/dL POC GLUCOSE Result Value Ref Range GLUCOSE POC 155 (H) 74 - 99 mg/dL POC GLUCOSE Result Value Ref Range GLUCOSE POC 151 (H) 74 - 99 mg/dL POC GLUCOSE Result Value Ref Range GLUCOSE POC 153 (H) 74 - 99 mg/dL CBC WITHOUT DIFFERENTIAL Result Value Ref Range WBC 14.1 (H) 4.5 - 10.5 K/uL RBC 4.03 3.90 - 4.90 M/uL HEMOGLOBIN 10.9 (L) 11.8 - 14.8 g/dL HEMATOCRIT 34.2 (L) 35.5 - 44.0 % MCV 84.9 82.0 - 99.0 fL MCH 27.0 (L) 27.8 - 34.5 pg MCHC 31.9 (L) 32.5 - 35.5 g/dL PLATELETS 300 160 - 420 K/uL MPV 7.1 (L) 8.7 - 12.7 fL RDW 16.9 (H) 11.5 - 14.5 % COMPREHENSIVE METABOLIC PANEL Result Value Ref Range SODIUM 141 136 - 145 mmol/L POTASSIUM 4.5 3.4 - 5.1 mmol/L CHLORIDE 105 98 - 107 mmol/L CO2 23 22 - 29 mmol/L CALCIUM 9.1 8.6 - 10.4 mg/dL BUN 21 (H) 6 - 20 mg/dL CREATININE 0.90 0.51 - 0.95 mg/dL GLUCOSE 156 (H) 74 - 99 mg/dL TOTAL PROTEIN 6.4 6.3 - 8.7 g/dL ALBUMIN 3.8 3.5 - 5.2 g/dL BILIRUBIN TOTAL 0.3 0.2 - 1.1 mg/dL ALKALINE PHOSPHATASE 81 40 - 150 U/L AST 59 (H) 0 - 33 U/L ALT 55 (H) 0 - 33 U/L GFR >60 >=60 mL/min/1.73 sq meter ANION GAP 13 8 - 16 mmol/L POC GLUCOSE Result Value Ref Range GLUCOSE POC 153 (H) 74 - 99 mg/dL Assessment: Active Hospital Problems Diagnosis ??? Primary cancer of ampulla of Vater ??? COPD (chronic obstructive pulmonary disease) ??? Benign hypertension Resolved Hospital Problems No resolved problems to display. 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 Dr Clark Epidural Day: 1 Patient Name: Krissy Dillon SUBJECTIVE: Pruritus No; N/VNo; slept well overnight No; NPO Pain: 5 Location: bilateralincisional OBJECTIVE: BP 116/78 (BP Location: Right arm, Patient Position (BP): Supine) Pulse (!) 111 Temp 36.9 ??C (Oral) Resp 14 Ht 5' 2 (1.575 m) Wt 67.3 kg (148 lb 5.9 oz) SpO2 96% BMI 27.14 kg/m?? Temp (24hrs), Av ??C, Min:36.5 ??C, Max:37.2 ??C Gen: alert, oriented x 3 Neuro:no focal motor/sensory deficits Site: dressing clean, dry and intact;no erythema,drainage, or tenderness to palpation Lab Results Component Value Date/Time INR 0.9 12/25/2021 11:04 AM PT 12.5 12/25/2021 11:04 AM Lab Results Component Value Date/Time WBC 14.1 (H) 12/30/2021 05:04 AM HGB 10.9 (L) 12/30/2021 05:04 AM HGBPOC 11.5 (L) 12/29/2021 02:59 PM HGBPOC 11.5 (L) 12/29/2021 02:59 PM HGBPOC 11.5 (L) 12/29/2021 02:59 PM HGBPOC 11.5 (L) 12/29/2021 02:59 PM HCT 34.2 (L) 12/30/2021 05:04 AM HCTPOC 35 12/29/2021 02:59 PM PLT 300 12/30/2021 05:04 AM MCV 84.9 12/30/2021 05:04 AM Lab Results Component Value Date/Time CREAT 0.90 12/30/2021 05:04 AM ASSESSMENT: Adequate Pain Control Yes PLAN: Epidural # 1 . S/p Procedure(s): DIAGNOSTIC LAPAROSCOPY , EXPLORATORY LAPROTOMY PANCREATICODUODENECTOMY (WHIPPLE PROCEDURE) Epidural: Infusion:Ropivacaine 0.0625% with 20mcg/mL dilaudid @ 6 mL/hr Will increase the infusion to 10 ml and follow Continue current management. Call with questions. Susanne Oleary MD 12/30/2021 8:36 AM documented in this encounter H&P Notes * Thelma Ken MD - 12/29/2021 7:25 AM CDT I have reviewed the last H&P and examined the patient today and there are no changes. CV exam: normal rate and regular rhythm. Pulm exam: normal pulmonary effort. To OR today for pylorus preserving pancreaticoduodenectomy. documented in this encounter OR Notes * Operative Report - Sabiha Orellana RN - 01/03/2022 11:30 AM CDT duplicate * Ana-OP - Serenity Mahan RN - 12/29/2021 7:25 PM CDT Daughter @ BS. * Operative Report - Thelma Ken MD - 12/29/2021 5:52 PM CDT [facility]PER[facility] - [id number] Date of Procedure: 12/29/2021 Name: Krissy Dillon : 1955 Sex: Female Admit Date: 12/29/2021 Admitting Physician: THELMA KEN Attending Physician: THELMA KEN Proceduralist/Surgeon: THELMA KEN PRE-OPERATIVE DIAGNOSES: Neoplasm of pancreas Malignant; Head POST-OPERATIVE DIAGNOSES: Neoplasm of pancreas Malignant; Head Location: PROCEDURES PERFORMED: Diagnostic laparoscopy; abdomen, peritoneum, pelvis and omentum Whipple; proximal subtotal pancreatectomy with near-total duodenectomy, choledochoenterostomy and duodenojejunostomy with Pancreatojejunostomy ASSISTANTS: Knowledge Engineer - SABIHA MEADE Knowledge Engineer - CONRADO NELSON Knowledge Engineer - KIT MELGAR ESTIMATED BLOOD LOSS: 400 mL FINDINGS: 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 Multiple liver cysts. Otherwise normal anatomy. SPECIMEN REMOVED: Lymph node-Right gastroepiploic lymph nodes Gallbladder- Lymph node-Portal vein lymph node Other, specify-Pancreatic stent, gross only Pancreas-whipple COMPLICATIONS: No complications were noted ANESTHESIA: General General endotracheal tube IMPLANTS: HEMOSTAT SURG SNOW 2X4IN 2081 (QTY - 1) (QTY - 1) SPONGE, NEEDLE AND INSTRUMENT COUNT: All needle, sponge, and instrument counts were correct throughout the entirety of the case. DRAINS / LINES / AIRWAYS: Jaime-Loza Jaime-Loza INDICATIONS: Krissy Dillon is a 66 year old female referred by Dr. 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 She presents today for surgical management of the same. TECHNIQUE: After informed consent was confirmed, the patient was brought to the operating theater, placed on the operating table and general Anesthesia was induced without difficulty. The patient was then placed supine position and prepped and draped in the standard sterile fashion. Local anesthetic was instilled slightly above the umbilicus in the midline and a 5mm optical trocar was used to enter the peritoneal cavity. Pneumoperitoneum was achieved without difficulty to 15mm Hg. On inspection, no evidence of entry injury was found and there was no evidence of metastatic disease. A midline incision was created from xiphoid process to below the umbilicus with a number 10 scalpel. The subcutaneous tissues were divided with Bovie Electrocautery until the linea alba was identified. This was divided with the cut function of the Bovie Electrocautery and the pre-peritoneal fat was divided to reveal the peritoneal lining. The peritoneum was divided sharply and the abdominal cavity was entered. The falciform ligament was divided at the level of the umbilicus and the stalk was dircted above the liver. The Ritter self-retaining retractor was placed to provide adequate exposure. The hepatic flexure of the colon was taken down and a generous Ronak maneuver was performed until the left lateral border of the aorta was palpable below the aortic adventitia. The mass was readily palpable in the c-loop of the duodenum. The gastrocolic ligament was divided with the Ligasure device to allow mobilization of the transverse mesocolon away from the inferior border of the pancreas. The middle colic vein was traced down to its origin from the central mesentery and the superior mesenteric vein was identified as it exited from underneath the neck of the pancreas the right gastroepiploic artery and vein were divided with a 45mm Gold load EndoGIA stapler firing. Blunt dissection allowed the initiation of a tunnel from below the pancreas above the superior mesenteric vein to the point roughly skilled nursing across the gland. We then advanced to the portal triad incising the peritoneum over the anterior surface and sweeping all lymph node bearing tissue towards the specimen. The origin of the gastroduodenal artery was identified off of the hepatic artery and it was divided with a 45mm Gold load EndoGIA stapler firing. The right gastric artery was also identified and divided with the use of the LigaSure device. A cholecystectomy was performed in a dome down technique, dividing the gallbladder wall off of the liver surface with Bovie electrocautery. As we near the infundibulum, or dissection narrowed down to identifying the cystic duct and tracing up towards its origin on the biliary tree. This was divided between 3 clips and subsequent dissection allowed identification of the cystic artery entering directly into the gallbladder wall this was similarly divided the gallbladder was freed from the operative bed and passed off the field. The remainder of the common bile duct was dissected to permit freedom from the proper hepatic as well as the portal vein below. Dissection of the anterior surface of the portal vein under the neck of the pancreas from above allowed a tunnel to be created ensuring resectability of the specimen. A 60 mm Purple load EndoGIA was used to divide the duodenum just past the pylorus the stomach was packed in the left upper quadrant bile duct was divided with the Metzenbaum scissors. The lumen measured roughly 1.5 cm and brisk bleeding was identified from the bilateral vessels. This was controlled with precision Bovie coagulation. The handle of a [employer] forcep was placed underneath the neck of the pancreas and 2-0 silk sutures were placed at its superior and inferior border for control of the vasculature. Using a combination of the LigaSure, Bovie electrocautery, and centrally, 15 blade scalpel, the pancreas was divided to expose the pancreatic duct dissection continued on the specimen side, freeing all small venous tributary to the anterior and lateral surfaces of the portal vein. Dissection continued posteriorly using the LigaSure device to separate the remainder of the uncinate off the palpable superior mesenteric artery and into the retroperitoneum. Next, the proximal jejunum was divided roughly after the ligament of Treitz, and the mesentery was divided off the bowel such that the entirety of the duodenum could be rotated through the tunnel in the retroperitoneum and delivered a specimen. The cut end of the distal jejunum was passed through a defect created in the transverse mesocolon and aligned for reconstruction. A dunk technique was utilized to create a pancreaticoduodenal anastomosis. A running suture line of 4-0 Prolene was initiated on the posterior margin of the pancreatic capsule attached to the seromuscular wall of the antimesenteric border of the jejunum approximately 5 cm from its division. An enterotomy was created to match the width of the pancreatic duct. A 6-0 PDS was used to act as a hem stitch and provide serosal to mucosal apposition on the enterotomy. A 5 Tanzanian pediatric feeding tube was advanced into the pancreatic duct and affixed with a 5-0 PDS suture that was positioned within the pancreatic duct and the enterotomy. 5-0 PDS suture was then used to create a running duct to mucosa anastomosis around the stent. The previously placed 4-0 Prolene sutures were then continued to complete the 2 layer anastomosis. A similar technique was used to perform a choledocho jejunal anastomosis using a running 5-0 PDS suture and a 10 Tanzanian biliary stent. Finally an antecolic duodenal jejunal anastomosis was created in an end-to-side fashion using a running 3-0 Polysorb full-thickness layer and finished with interrupted 3-0 silk imbricating sutures circumferentially. The abdomen was copiously irrigated, 19 Tanzanian fully fluted drains were placed above and below the pancreatic anastomosis and draped above and below the biliary anastomosis as well. These exited through stab incisions in the right upper quadrant and were affixed with 2-0 silk sutures. Vistaseal was placed about the pancreatic anastomosis prior to closure. A #1 strata fix was used to provide fascial closure, and 2-0 Polysorb's were used to reapproximate the thick adipose layer of the subcutaneous tissues. 3-0 Polysorb's were used for a deep dermal layer, and 4-0 Biosyn was used for a subcuticular layer prior to closure with Dermabond Preneo. DISPOSITION: The patient was awoken and taken in good condition to the recovery room. [id number] by THELMA KEN MD, 12/29/2021 17:52 CDT (Approved) Created in [facility] * Ana-OP - Yessenia Serrato RN - 12/11/2021 1:21 PM CDT Screening Call for upcoming surgery, if needed a Pre-Surgical Assessment appointment will be made. This RN has verified the following: Name, Date of , Surgery (in their own words)? Yes PCP :Yes, IF YES - VERIFY CORRECT PCP UNDER CARE TEAMS if no, gave patient referral line [phone] Vein Pumper: YES, IF YES - VERIFY CORRECT ROLL CLAMP OPERATOR UNDER CARE TEAMS Labs in the past 30 days? Yes if yes, date/location: 12/01/21 CMP from [facility] CXR in the past 12 months? Yes if yes, date/location: 05/28/21 in [facility] EKG in the past 12 months? No, if yes, date/location: n/a Stress Test, ECHO, or Cardiac Cath in past 24 months? No if yes, date/location: n/a Pacemaker? No, AICD? NO Vendor? if yes, date/location: n/a CIED Form sent: NO Any Surgery at [facility] (no other locations) in the past 12 months? No, any anesthesia complications (ie:malignant hyperthermia, and/or coded r/t anesthesia)? N/A Long Term patient: No, if yes, facility name and phone number: Are you currently experiencing any COVID19 s/s, or have you had a known exposure? No, if yes, COVIDPCR TEST ordered and scheduled? N/A Finish Grinder Needed: No, if yes, Finish Grinder Info Noted in Case Entry, under Additional Information Per Anesthesia guidelines, patient needs to be seen? Yes if yes, appt scheduled. PSA CALL completed, scheduled for PSA Appt, 12/25, at 1100. Reviewed medications, health and surgical history, and allergies. Reiterated patient, and any visitors must mask. Does the patient have any cuts, sores, open wounds or rashes? No FEMALE Patients: in past 3 months? NO Has the patient had blood products in past 3 months? Yes when had Chemotherapy- not sure would havebeen at [facility] in [place], [place] TB Screen: Complete the TB screening by asking your patient/family about symptoms/risk factors. Symptoms/complaints: ??? 5=Hemoptysis ??? 3=Cough (prolonged 3 weeks or more) ? ? 2=Unexplained weight loss (>10 lbs) ??? 2=Fever, chills, and/or night sweats ??? 0=None Risk Factors: ??? 4=Active TB now or any time in the past (even if on medication) ??? 2=Homeless ??? 2=Foreign born ??? 2=New TB skin test positive (within 2 years) or history of recent TB exposure ??? 0=None Total symptom/risk factor values= 0 documented in this encounter Miscellaneous Notes * Care Plan - Jillian Hawkins MSW - 01/11/2022 10:06 AM CDT 01/08/2022 D/C Orders Noted: Home Care, RN for Welfare & Drain Check. Patient resides in [facility] multiple home care referrals made, however likely discharge barrier today Due to the Holiday. Pt's nurse made aware of same. 01/10/22: 8155 ?? Home Care Referral made to Home Care, VIELKA spoke to Jj in intake , stated no nursing availability until Saturday or Saturday of next week, VIELKA confirmed with Patti with [facility] that is acceptable. 01/11/22: 1000 VIELKA spoke to Jj with [facility], she stated Home Care Referral has been accepted, start of care Tuesday 01/16 or Wednesday 01/17 SW spoke to Patti with [facility] making heraware of same, she stated patient has an appointment in the office today and she will inform patient of aforementioned. FRANTZ Cobos Pharmaceutical Officer Care Management Ext. [phone] * Care Plan - Jillian Hawkins MSW - 01/08/2022 11:54 AM CDT D/C Orders Noted: Home Care, RN for Welfare & Drain Check. Patient resides in [facility] multiple home care referrals made, however likely discharge barrier today Due to the Hol. Pt's nurse made aware of same. FRANTZ Cobos Pharmaceutical Officer Care Management Ext. [phone] Day 1 - Current ([facility]) Patient, family, or healthcare designee is participating in individual care plan process Outcome: Met Problem: Discharge Planning Goal: Identify discharge needs upon admission and through discharge Description: Outcome: Progressing * Care Plan - Anastacia Jackson RN - 01/08/2022 10:59 AM CDT 1058- OK for pt to DC home to self care with family to assist. No home healthcare set up needed at this time per Dr. Ken. 1150- Pt's daughter ([place]) called, states that she still wants home health set up with the understanding that it would not be set up until sometime this week (per care management). Dr. Ken messaged/made aware. * Care Plan - Lorri Segal, Twister Tender Paper - 01/08/2022 9:37 AM CDT Problem: Self-Care Deficit Goal: Self care goal: Improve ability to perform self care activities by discharge Description: Patient will complete bed mobility at Modified independent level log roll - Patient will complete grooming standing at SBA level. - Patient will complete functional toilet transfers with rolling walker at Modified independent level. - Patient will complete functional chair transfers with rolling walker at Modified independent level. - Patient will Ambulation to bathroom, Ambulation to sink and Item retrieval with rolling walker atSBA level. - Patient will complete toileting at SBA level. - Patient will complete upper extremity dressing at SBA level. - Patient will complete lower extremity dressing at MOD assist level. Outcome: Progressing Weekly Therapy Plan of Care: 4-5x Based on today's session: OT Current Discharge Recommendation: Post acute care Occupational Therapy Progress Note Patient: Krissy Dillon Date of : 1955 Length Of Stay: 10 Primary reason for admission: ICD-10-CM ICD-9-CM 1. 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 Pancreatic cyst K86.2 577.2 Therapy Eval Date: 12/30/21 OT Treatment Start Time : 918 OT Treatment Stop Time : 932 Total Timed Treatment (min): 14 Activity order/ Restrictions: OT Treatment Precautions: Fall, none Lines/ tubes: drain Vision: WFL Supplemental O2: RA Past Medical History: Diagnosis Date Asthma Back pain bulging disc COPD (chronic obstructive pulmonary disease) pt. 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 Malignant neoplasm pancreas Obstructive sleep apnea CPAP- no longer using didn't work Psychiatric disorder Wears dentures Past Surgical History: Procedure Laterality Date HX ERCP N/A 05/25/2021 CHOLANGIOPANCREATOGRAPHY RETROGRADE ENDOSCOPIC performed by Omar Gonzalez MD at [facility] HX ERCP 05/2021 at [facility] HX HEART CATHETERIZATION HX HYSTERECTOMY HX PANCREATICODUODENECTOMY N/A 12/29/2021 DIAGNOSTIC LAPAROSCOPY , EXPLORATORY LAPROTOMY PANCREATICODUODENECTOMY (WHIPPLE PROCEDURE) performed by Thelma Ken MD at [facility] OR HX PARTIAL THYROIDECTOMY goiter at age 8 y/o HX PORTACATH PLACEMENT HX SINUS SURGERY x 2 HX SPINAL SURGERY cervical laminectomy HX TUBAL LIGATION ID EDG US EXAM SURGICAL ALTER STOM DUODENUM/JEJUNUM N/A 05/25/2021 ULTRASOUND ENDOSCOPIC performed by Omar Gonzalez MD at [facility] ID ESOPHAGOGASTRODUODENOSCOPY TRANSORAL DIAGNOSTIC N/A 05/25/2021 ESOPHAGOGASTRODUODENOSCOPY performed by Omar Gonzalez MD at [facility] Subjective Subjective: Pt agreed to therapy Pain Level: Patient reports 0/10 pain. Objective: Cognition: Ox4 Level of alertness: alert/responsive Command follow: Follows commands appropriately Safety judgment: intact FUNCTIONAL ACTIVITIES ASSESSMENT: ADLs Grooming/Hygiene: Pt reports having completed grooming tasks this morning Upper Extremity Dressing: supervision with off/ek gown while seated in recliner/chair Lower Extremity Dressing: dependent with doff/ke socks while seated in recliner/chair. D/t discomfort in abdomen Functional Mobility Sit to stand: SBA Chair/ ReclinerTransfer: SBA with wheeled walker Functional Room Mobility: few feet from bed to recliner SBA with wheeled walker Out of bed mobility deferred secondary to: Not applicable- Out of bed mobility performed as indicated above Therapeutic Intervention: Patient/Family Education: Walker safety, Energy conservation, and role of OT Patient response to therapy: Pt pleasant and agreed to therapy. Progressing towards goals. Pt sitting EOB upon therapy arrival. Pt transferred to recliner for ADLs tasks. No c/o pain or SOB. Pt able to unhook/reclasp safety pin to drain from gown independently. Assessment Assessment: decreased ADL status, decreased functional mobility, decreased endurance, and decreasedUE function Rehab potential/ prognosis: good Plan Treatment: OT to see patient for: ADL Training, Functional Mobility Training, and UE ROM/Strengthening End of session: Chair/bed alarm in place and activated: yes Call light within reach: yes Patient's location: Recliner/Chair Nursing notified of patient status: yes Patient will continue with above plan of care unless discharged or has change in status. Plan of care developed as indicated by initial assessment and patient???s current status. Lorri ATKINSON/Femi * Care Plan - Patrica Smith RN - 01/07/2022 7:52 AM CDT Assessment per flowsheet. Resting comfortably at this time. No c/o. 1200- Resting with no c/o. 1450- Oxycodone 5 mg po given for pain. 1550- Resting comfortably at this time. 1730- Denies needs at this time. * Care Plan - Stella Chappell RN - 01/07/2022 2:46 AM CDT Report received from Patrica LOPEZ. Pt resting in bed at this time. Has received scheduled medicationsand as needed medications, see MAR. Up times one assist. Wound dressing in place. JAIME drains intact and site was cleansed. Pt rested in bed throughout the night. Report given to Patrica LOPEZ. Problem: Infection Risk/Actual Goal: Infection Risk/Actual: Infection prevention, control, or resolution by discharge Description: Outcome: Variance Problem: Gastrointestinal Goal: Achieve optimal gastrointestinal function by discharge or maintain baseline function Outcome: Variance * Care Plan - Patrica Smith RN - 01/06/2022 9:42 AM CDT Assessment per flowsheet. Resting comfortably at this time. No c/o. 1120- Oxycodone 5 mg po given for pain. 1220- Resting with no c/o. 1730- Denies needs at this time. * Care Plan - Trinity Lucas RN - 01/06/2022 6:50 AM CDT Problem: Infection Risk/Actual Goal: Infection Risk/Actual: Infection prevention, control, or resolution by discharge Description: Outcome: Variance Problem: Gastrointestinal Goal: Achieve optimal gastrointestinal function by discharge or maintain baseline function Outcome: Variance Problem: Skin Goal: Maintain skin integrity and/or promote wound healing by discharge Outcome: Variance Patient rested well this shift. Patient required no PRN pain intervention this shift. Midline incision at the bottom of the incision site had small-moderate amount of drainage until 0600. Dressing changed at 0600 to include an ABD pad. During bedside shift report, both RNs viewing site--active draining large amount of serosanguineous fluid. No acute events to report this shift. * Care Plan - Jacob, Thuy M, RD - 01/05/2022 1:10 PM CDT Medical Nutrition Therapy Krissy Dillon is a 66 y.o. female patient. Nutrition Diagnosis: 1. Increased nutrient need (specify) (NI-5.1): protein, calories related to healing, surgery, cancer as evidenced by assessed needs below, physical finding 2. Inadequate oral intake (NI-2.1) related to whipple surgery as evidenced by diet order ( NPO --> clears) Intervention/Recommendations: 1. Continue GI soft diet, advance per MD 2. Briefly discussed anticipated gradual diet advance; discussed advancement from liquids to GI soft to regular as tolerated. 3. Discontinue Medical Food Supplement Glucerna Shake TID (220 calories, 10 Gm protein per serving)to enhance oral intake. Encouraged adequate nutrient intake to maintain strength and aid in recovery. 4. Monitor weight/labs. Noted hypokalemia, being replaced 5. Monitor PO intake. Patient at risk for malnutrition Monitor and Evaluate: 1. Total energy intake goal: 60-100 pts 2. Weight goal: stable 3. Nutrition related labs goal: WNL Glucose: 70-140 mg/dL 4. Nutrition focused physical findings Digestive goal: tolerate nutrition source, + BM Skin goal: no breakdown/surgical healing RD to reassess according to Nutrition Policy and Procedures at severe risk. Nutrition Assessment: Diet: GI soft Subjective Findings: Patient S/P Whipple; proximal subtotal pancreatectomy with near-total duodenectomy, choledochoenterostomy and duodenojejunostomy with Pancreatojejunostomy on 12/29/21 forpancreatic cancer. 01/05 Diet advanced to GI soft today. Patient c/o breakfast ( stated biscuit was hard). States appetite is off/on. Noted episode of emesis yesterday. Denies feeling nauseous at time of encounter. Does not meet 2/2 criteria for malnutrition, but at risk d/t poor PO intakes. Encouragement provided. Patientto discharge tomorrow. No further needs voiced at this time. 01/03 Patient seen up in recliner today, NG to suction, 700 mL output in past 24 hours. Patient denies having any feelings of abdominal gas. Last BM was 12/28/21. Patient describes her weight history below. She says she had consumed Boost at home in an effort tore-gain weight, but got tired of it. Current PO intake: 10x1 Height: 5' 2 (157.5 cm) (01/04/221927) Weight: 67.3 kg (148 lb 5.9 oz) (01/04/221927) IBW +/- 10%: 110# %IBW: 135% Body mass index is 27.14 kg/m??. Weight Changes: Patient reports 20 lb weight loss between 02/2021 - 05/2021 (from 165-145 lbs) then an additional ~ 15 lbs during chemo therapy. Since being off chemo, she has gradually re-gained someof her weight. Wt Readings from Last 8 Encounters: 01/04/22 67.3 kg (148 lb 5.9 oz) 12/25/21 67.9 kg (149 lb 9.6 oz) 12/14/21 67.4 kg (148 lb 8 oz) 12/07/21 66.2 kg (146 lb) 11/20/21 63.8 kg (140 lb 9.6 oz) 10/31/21 62.9 kg (138 lb 9.6 oz) 10/17/21 64.3 kg (141 lb 11.2 oz) 10/03/21 62.6 kg (137 lb 14.4 oz) Estimation of Nutrition Needs Based on admit body weight of 67 kg. Calories: 1809 (27 kcal/kg) Protein: 80 (1.2 grams/kg) Fluid: 1809 (27 ml/kg) Nutrition Focused Physical Findings: Edema: none noted Last Bowel Movement (mm/dd/yyyy): 01/04/22 (01/04/22 0800) Wounds/Potential for Skin Breakdown: abdomen incision, drains Matt Score: 17 (01/04/221950) Food Allergies: kiwi Subcutaneous Fat Assessment Orbital: Slightly dark circles, somewhat hollow (moderate) (01/05/22 1300) Facial cheeks (buccal pads): Slightly depressed inward (mild) (01/05/22 1300) Subcutaneous Fat Loss Assessment: Mild fat loss (01/05/22 1300) Muscle Wasting Assessment Temporal: Slight depression or shadowing (mild) (01/05/22 1300) Muscle Wasting Assessment: No findings (01/05/22 1300) Patient Active Problem List: Active Problems: Primary cancer of ampulla of Vater COPD (chronic obstructive pulmonary disease) Benign hypertension Past Medical History: Past Medical History: Diagnosis Date ??? Asthma ??? Back pain bulging disc ??? COPD (chronic obstructive pulmonary disease) pt. denies ??? HTN (hypertension) ??? Hyperlipidemia ??? Hyperthyroidism goiter as a achild ??? Latex sensitivity kiwi ??? Malignant neoplasm pancreas ??? Obstructive sleep apnea CPAP- no longer using didn't work ??? Psychiatric disorder ??? Wears dentures Allergies Allergen Reactions ??? Iodinated Contrast Media Itching ??? Sulfa (Sulfonamide Antibiotics) Dizziness and Itching ??? Erythromycin Itching ??? Kiwi Rash and Itching ??? Macrolide Antibiotics Itching ??? Naproxen Sodium Itching ??? Nitrofurantoin Itching Itching ??? Penicillins Itching Pertinent Labs: GLUCOSE and POC GLUCOSE Lab Results Component Value Date/Time GLUCOSE 108 (H) 01/05/2022 04:55 AM GLUCPOC 104 (H) 01/05/2022 04:07 AM GLUCPOC 124 (H) 01/04/2022 11:46 PM GLUCPOC 73 (L) 01/04/2022 09:43 PM GLUCPOC 105 (H) 01/04/2022 06:50 PM Lab Results Component Value Date/Time NA 139 01/05/2022 04:55 AM NA 145 01/04/2022 06:05 AM NA 149 (H) 01/03/2022 04:14 AM K 2.9 (L) 01/05/2022 04:55 AM K 2.7 (L) 01/04/2022 06:05 AM K 3.6 01/03/2022 04:14 AM CL 100 01/05/2022 04:55 AM CL 106 01/04/2022 06:05 AM CL 111 (H) 01/03/2022 04:14 AM CO2 24 01/05/2022 04:55 AM CO2 27 01/04/2022 06:05 AM CO2 29 01/03/2022 04:14 AM BUN 12 01/05/2022 04:55 AM BUN 17 01/04/2022 06:05 AM BUN 12 01/03/2022 04:14 AM CREAT 0.67 01/05/2022 04:55 AM CREAT 0.72 01/04/2022 06:05 AM CREAT 0.60 01/03/2022 04:14 AM CA 8.7 01/05/2022 04:55 AM CA 9.1 01/04/2022 06:05 AM CA 8.9 01/03/2022 04:14 AM GFR >60 01/05/2022 04:55 AM GFR >60 01/04/2022 06:05 AM GFR >60 01/03/2022 04:14 AM MG 1.8 05/29/2021 05:29 AM ALKPHOS 79 01/03/2022 04:14 AM ALKPHOS 79 01/02/2022 06:31 AM ALKPHOS 75 01/01/2022 04:18 AM Lab Results Component Value Date/Time CA 8.7 01/05/2022 04:55 AM LIPID panel: No results found for: CHOLTOT, HDL, LDLCALC, LDLDIRECT, TRIGLYCERIDE HEPATIC function panel result (most recent): Lab Results Component Value Date/Time ALT 15 01/03/2022 04:14 AM AST 10 01/03/2022 04:14 AM ALKPHOS 79 01/03/2022 04:14 AM Hemoglobin A1C result (most recent): No results found for: HGBA1C, [id number] Thuy James RD, LD Time spent: 15 minutes * Care Plan - Anastacia Jackson RN - 01/05/2022 12:53 PM CDT 1100- Attempted to give IV Zofran for c/o nausea, IV access lost. Pt now denies nausea at this time/states nausea is resolved. Attempted to obtain IV access, unable to obtain. Dr. Ken messaged per patient request for order to access port. Charge nurse (Toya) and patient/daughter updated. 1253- Ok to access port per Dr. Ken. Per Dr. Ken, pt will need [facility] for planned DC tomorrow;care management (November) made aware/added to conversation with Dr. Ken for facilitation of communication/DC planning. 1323- Charge nurse (Toya) at bedside to access port. 1355- steffen house supervisor to attempt port access/IV access. 1535- Pt states abd site drained some blood tinged drainage and she cleaned it up. Dr. Ken messaged/made aware. * Care Plan - Renetta Pineda, [employer] - 01/05/2022 11:08 AM CDT Problem: Physical Mobility, Impaired Goal: Mobility goal: Improve ambulation by discharge Description: Goals - Patient will complete bed mobility at Independent level. - Patient will complete sit<>stand at Independent level. Met 01/05 - Patient will complete bed<>chair transfers at Modified independent level with most appropriate device. - Patient will ambulate 100 feet at Modified independent level with wheeled walker on level surface, so patient can navigate discharge environment. - Patient will complete 10 stairs with 2rail/s at MIN assist level with none assistive device,when appropriate. - Patient will tolerate 10-15 reps range of motion and strengthening exercises. Outcome: Progressing Weekly Therapy Plan of Care: 4-5x Based on today's session: current discharge home with family assist Physical Therapy Progress Note Patient: Krissy Dillon Date of : 1955 Length Of Stay: 7 Primary reason for admission: ICD-10-CM ICD-9-CM 1. 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 Pancreatic cyst K86.2 577.2 Therapy Eval Date: 12/30/21 PT Treatment Start Time : 1035 PT Treatment Stop Time : 1058 Total Timed Treatment (min): 23 Activity order/ restrictions: PT Precautions: Fall, high fall risk Lines/ tubes: drain Supplemental O2:0 Past Medical History: Diagnosis Date Asthma Back pain bulging disc COPD (chronic obstructive pulmonary disease) pt. 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 Malignant neoplasm pancreas Obstructive sleep apnea CPAP- no longer using didn't work Psychiatric disorder Wears dentures Past Surgical History: Procedure Laterality Date HX ERCP N/A 05/25/2021 CHOLANGIOPANCREATOGRAPHY RETROGRADE ENDOSCOPIC performed by Omar Gonzalez MD at [facility] HX ERCP 05/2021 at [facility] HX HEART CATHETERIZATION HX HYSTERECTOMY HX PARTIAL THYROIDECTOMY goiter at age 8 y/o HX PORTACATH PLACEMENT HX SINUS SURGERY x 2 HX SPINAL SURGERY cervical laminectomy HX TUBAL LIGATION ID EDG US EXAM SURGICAL ALTER STOM DUODENUM/JEJUNUM N/A 05/25/2021 ULTRASOUND ENDOSCOPIC performed by Omar Gonzalez MD at [facility] ID ESOPHAGOGASTRODUODENOSCOPY TRANSORAL DIAGNOSTIC N/A 05/25/2021 ESOPHAGOGASTRODUODENOSCOPY performed by Omar Gonzalez MD at [facility] Subjective Subjective: Pt agreed to therapy up in recliner when therapy arrived Pain Level: Patient reports 0/10 pain. Objective Cognition: Ox4 Level of alertness: alert/responsive Command follow: Follows commands appropriately Lower Extremity Function: Left LE: ROM: WNL Strength: adequate ROM, adequate strength, WFL Right LE: ROM: WNL Strength: adequate ROM, adequate strength, WFL MOBILITY ASSESSMENT: Bed Mobility Rolling: Not assessed Supine to sit: Not assessed Sit to supine:Not assessed Transfers Sit to stand: Independent Transfers: to left wheeled walker Level of assist:SBA Gait level of assist: SBA Assistive device: wheeled walker Distance: 100 ft Gait pattern: endurance fair Balance Sittin/5- Moves/ returns trunkal midpoint in all planes >2 inches Standing: Good- Patient is able to maintain balance without hand-held support, limited postural sway (static). Accepts moderate challenge- able to maintain balance while picking object off floor (dynamic). Out of bed mobility deferred secondary to: Not applicable- Out of bed mobility performed as indicated above Therapeutic Intervention: Therapeutic exercise: 15 reps sitting Patient/Family Education: Walker safety, gait, transfers exercises Patient response to therapy: Pt working on improving gait, transfers endurance , safety , strength Assessment Impairments: decreased endurance Functional mobility limitations: impaired gait Rehab potential/ prognosis: good PT Recommended DME: To be determined Plan Treatment: PT to see patient for: endurance and functional mobility training End of session Chair/bed alarm in place and activated: yes Call light within reach: yes Patient's location: Recliner/Chair Nursing notified of patient status: yes Patient will continue with above plan of care unless discharged or has change in status. Plan of care developed as indicated by initial assessment and patient???s current status. Renetta Pineda HEAD OF PHYSICS [id number] * Care Plan - Akilah Champagne RN - 01/05/2022 4:42 AM CDT [facility] - Current (INTERDIS PW: HYPERGLYCEMIA, ADULT) Metabolic: Maintain glucose between 110-180 mg/dL when receiving subcutaneous insulin and between 110-160 mg/dL when receiving IV insulin. Outcome: Met Problem: Cognitive/Perceptual/Neuro Goal: Achieve optimal cognitive/perceptual/neurological function by discharge or maintain baseline function Outcome: Variance- Slightly confused at the beginning of shift requiring reorientation from this nurse. Moved to [id number] to be closer to nurse's station. Problem: Mobility Goal: Absence of/Reduce Fall Risk r/t Mobility Deficits Description: Patient is a fall risk because of mobility deficits. A patient with mobility deficits is automatically at high risk for falls. Potential Interventions: 1. Schedule patient toileting to avoid emergency trips to the bathroom 2. If available, use floor mats next to bed or in front of chair when up 3. If applicable, remove floor mats when getting patient up and replace when leaving patient 4. Assistive devices as required, educate patient on correct use of device (walkers, shower chairs,lift equipment, etc.) 5. Exit bed on patient's strongest side 6. Gait belt easily accessible 7. Activate bed or chair alarm while in bed or up in chair 8. Get order for PT consult if appropriate 9. Patient requires 2 assist - bedpan and bed bath if 2 staff not available, bedside commode if 2 staff are available entire time 10. Slow progressive position changes if patient experiencing dizziness Outcome: Variance- Requires one assist and a walker to ambulate to bathroom. Gait remains slightly unsteady. Problem: Pain, Potential/Actual Goal: Verbalizes/displays acceptable comfort level or baseline comfort level Description: Outcome: Progressing Problem: Safety/Fall Goal: Safety/Fall: Absence of fall, injury, harm during hospitalization Description: Outcome: Progressing- Utilizing bed alarm. No alarms this shift. Uses call light appropriately. Problem: Respiratory Goal: Achieve optimal respiratory function by discharge and/or maintain baseline function Outcome: Progressing- No SOB noted. Remains on room air with SPO2 above 90% this shift. * Care Plan - Renetta Pineda, [employer] - 01/04/2022 3:23 PM CDT Problem: Physical Mobility, Impaired Goal: Mobility goal: Improve ambulation by discharge Description: Goals - Patient will complete bed mobility at Independent level. - Patient will complete sit<>stand at Independent level. - Patient will complete bed<>chair transfers at Modified independent level with most appropriate device. - Patient will ambulate 100 feet at Modified independent level with wheeled walker on level surface, so patient can navigate discharge environment. - Patient will complete 10 stairs with 2rail/s at MIN assist level with none assistive device,when appropriate. - Patient will tolerate 10-15 reps range of motion and strengthening exercises. Outcome: Progressing Weekly Therapy Plan of Care: 4-5x Based on today's session: PT Current Discharge Recommendation: Post acute care Physical Therapy Progress Note Patient: Krissy M White Date of : 1955 Length Of Stay: 6 Primary reason for admission: ICD-10-CM ICD-9-CM 1. 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 Pancreatic cyst K86.2 577.2 Therapy Eval Date: 12/30/21 PT Treatment Start Time : 1335 PT Treatment Stop Time : 1400 Total Timed Treatment (min): 25 Activity order/ restrictions: PT Precautions: Fall, high fall risk Lines/ tubes: none Supplemental O2:yes Past Medical History: Diagnosis Date Asthma Back pain bulging disc COPD (chronic obstructive pulmonary disease) pt. 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 Malignant neoplasm pancreas Obstructive sleep apnea CPAP- no longer using didn't work Psychiatric disorder Wears dentures Past Surgical History: Procedure Laterality Date HX ERCP N/A 05/25/2021 CHOLANGIOPANCREATOGRAPHY RETROGRADE ENDOSCOPIC performed by Omar Gonzalez MD at [facility] HX ERCP 05/2021 at [facility] HX HEART CATHETERIZATION HX HYSTERECTOMY HX PARTIAL THYROIDECTOMY goiter at age 8 y/o HX PORTACATH PLACEMENT HX SINUS SURGERY x 2 HX SPINAL SURGERY cervical laminectomy HX TUBAL LIGATION ID EDG US EXAM SURGICAL ALTER STOM DUODENUM/JEJUNUM N/A 05/25/2021 ULTRASOUND ENDOSCOPIC performed by Omar Gonzalez MD at [facility] ID ESOPHAGOGASTRODUODENOSCOPY TRANSORAL DIAGNOSTIC N/A 05/25/2021 ESOPHAGOGASTRODUODENOSCOPY performed by Omar Gonzalez MD at [facility] Subjective Subjective: Pt agreed to therapy Pain Level: Patient reports 0/10 pain. Objective Cognition: Ox4 Level of alertness: alert/responsive Command follow: Follows commands appropriately MOBILITY ASSESSMENT: Bed Mobility Rolling: Not assessed Supine to sit: Not assessed Sit to supine:Not assessed Transfers Sit to stand: Independent Transfers: to left wheeled walker Level of assist:SBA Gait level of assist: SBA Assistive device: wheeled walker Distance: 80 ft Gait pattern: improved endurance Up and down 4 steps 2 rails independent Balance Sittin/5- Moves/ returns trunkal midpoint in all planes >2 inches Standing: Good- Patient is able to maintain balance without hand-held support, limited postural sway (static). Accepts moderate challenge- able to maintain balance while picking object off floor (dynamic). Out of bed mobility deferred secondary to: Not applicable- Out of bed mobility performed as indicated above Therapeutic Intervention: Therapeutic exercise: Patient/Family Education: gait, transfers, step climbing balance endurance and safety Patient response to therapy: Pt agreed to therapy once finished pt sitting on edge of bed with traytable near her . Improvement noted with endurance and assist level with mobility Assessment Impairments: decreased endurance Functional mobility limitations: impaired gait Rehab potential/ prognosis: good PT Recommended DME: To be determined Plan Treatment: PT to see patient for: ROM, strengthening, endurance, and functional mobility training End of session Chair/bed alarm in place and activated: yes Call light within reach: yes Patient's location: Bed (sitting on edge of bed ) Nursing notified of patient status: yes Patient will continue with above plan of care unless discharged or has change in status. Plan of care developed as indicated by initial assessment and patient???s current status. Renetta Pineda HEAD OF PHYSICS [id number] * Care Plan - Edie Jean-Baptiste, Occupational Therapist - 01/04/2022 11:18 AM CDT Problem: Self-Care Deficit Goal: Self care goal: Improve ability to perform self care activities by discharge Description: Patient will complete bed mobility at Modified independent level log roll - Patient will complete grooming standing at SBA level. - Patient will complete functional toilet transfers with rolling walker at Modified independent level. - Patient will complete functional chair transfers with rolling walker at Modified independent level. - Patient will Ambulation to bathroom, Ambulation to sink and Item retrieval with rolling walker atSBA level. - Patient will complete toileting at SBA level. - Patient will complete upper extremity dressing at SBA level. - Patient will complete lower extremity dressing at MOD assist level. Outcome: Progressing Weekly Therapy Plan of Care: 4-5x Based on today's session: OT Current Discharge Recommendation: Post acute care Occupational Therapy Progress Note Patient: Krissy Dillon Date of : 1955 Length Of Stay: 6 Primary reason for admission: ICD-10-CM ICD-9-CM 1. 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 Pancreatic cyst K86.2 577.2 Therapy Eval Date: 12/30/21 OT Treatment Start Time : 1052 OT Treatment Stop Time : 1116 Total Timed Treatment (min): 24 Activity order/ Restrictions: OT eval/tx Precautions: Fall Lines/ tubes: IV lines and drain Vision: unchanged Supplemental O2: 2L at end of session Past Medical History: Diagnosis Date ??? Asthma ??? Back pain bulging disc ??? COPD (chronic obstructive pulmonary disease) pt. denies ??? HTN (hypertension) ??? Hyperlipidemia ??? Hyperthyroidism goiter as a achild ??? Latex sensitivity kiwi ??? Malignant neoplasm pancreas ??? Obstructive sleep apnea CPAP- no longer using didn't work ??? Psychiatric disorder ??? Wears dentures Past Surgical History: Procedure Laterality Date ??? HX ERCP N/A 05/25/2021 CHOLANGIOPANCREATOGRAPHY RETROGRADE ENDOSCOPIC performed by Omar Gonzalez MD at [facility] ??? HX ERCP 05/2021 at [facility] ??? HX HEART CATHETERIZATION ??? HX HYSTERECTOMY ??? HX PARTIAL THYROIDECTOMY goiter at age 8 y/o ??? HX PORTACATH PLACEMENT ??? HX SINUS SURGERY x 2 ??? HX SPINAL SURGERY cervical laminectomy ??? HX TUBAL LIGATION ??? ID EDG US EXAM SURGICAL ALTER STOM DUODENUM/JEJUNUM N/A 05/25/2021 ULTRASOUND ENDOSCOPIC performed by Omar Gonzalez MD at [facility] ??? ID ESOPHAGOGASTRODUODENOSCOPY TRANSORAL DIAGNOSTIC N/A 05/25/2021 ESOPHAGOGASTRODUODENOSCOPY performed by Omar Gonzalez MD at [facility] Subjective Subjective: I want to walk. Alert, agreeable to therapy. Pain Level: Patient reports no pain. Objective: Cognition: Ox4 Level of alertness: alert/responsive Command follow: Follows commands appropriately Safety judgment: intact FUNCTIONAL ACTIVITIES ASSESSMENT: ADLs Grooming/Hygiene: supervision with oral and facial hygiene while standing at sink Lower Extremity Dressing: supervision with donning slippers while seated in recliner/chair. Functional Mobility Rolling: SBA Sit to supine: SBA Sit to stand: SBA Functional Room Mobility: Ambulation to bathroom and Ambulated in hallway 2x SBA with wheeled walker Out of bed mobility deferred secondary to: Not applicable- Out of bed mobility performed as indicated above Therapeutic Intervention: Therapeutic exercise: Functional mobility Patient/Family Education: WW safety, POC Patient response to therapy: Pt tolerates well until end of session when pt presents with emesis when standing at sink during grooming tasks. Pt assisted back to bed, RN notified. Pt requesting to beput back on oxygen d/t SOB and fatiguing easily this date. Assessment Assessment: decreased ADL status, decreased functional mobility and decreased endurance Rehab potential/ prognosis: good Plan Treatment: OT to see patient for: ADL Training, Functional Mobility Training and Patient Education End of session: Chair/bed alarm in place and activated: yes Call light within reach: yes Patient's location: Bed Nursing notified of patient status: yes Patient will continue with above plan of care unless discharged or has change in status. Plan of care developed as indicated by initial assessment and patient???s current status. Edie Jean-Baptiste, OTR/L * Care Plan - Kayleigh Elizabeth RN - 01/04/2022 12:47 AM CDT 1929 Report received from off going RN. Patient in bed, A&Ox4, denies pain at this time. No needs, call light in reach bed alarm on.. 1999 Moderate amount of emesis noted, clear, Zofran administered, CHG bath given with all linens changed 2299 Large clear emesis noted at this time, patient cleaned, oral care complete, no further needs, call light in reach 0000 Patient resting in bed, call light in reach, bed alarm on 0200 Patient Ax1 with gait belt to RR and back to bed. 0400 Patient sitting up in bed, requesting to walk hallways. Jello given per request. Call light inreach, bed alarm on * Care Plan - Nancy Morton, Occupational Therapist - 01/03/2022 3:37 PM CDT Problem: Self-Care Deficit Goal: Self care goal: Improve ability to perform self care activities by discharge Description: Patient will complete bed mobility at Modified independent level log roll - Patient will complete grooming standing at SBA level. - Patient will complete functional toilet transfers with rolling walker at Modified independent level. - Patient will complete functional chair transfers with rolling walker at Modified independent level. - Patient will Ambulation to bathroom, Ambulation to sink and Item retrieval with rolling walker atSBA level. - Patient will complete toileting at SBA level. - Patient will complete upper extremity dressing at SBA level. - Patient will complete lower extremity dressing at MOD assist level. Outcome: Progressing Weekly Therapy Plan of Care: 4-5x Based on today's session: OT Current Discharge Recommendation: Post acute care Occupational Therapy Progress Note Patient: Krissy M Jm Date of : 1955 Length Of Stay: 5 Primary reason for admission: ICD-10-CM ICD-9-CM 1. 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 Pancreatic cyst K86.2 577.2 Therapy Eval Date: 12/30/21 OT Treatment Start Time : 1510 OT Treatment Stop Time : 1535 Total Timed Treatment (min): 25 Precautions: Fall, Lines/ tubes: IV lines, catheter, drain, telemetry, and NG Past Medical History: Diagnosis Date Asthma Back pain bulging disc COPD (chronic obstructive pulmonary disease) pt. 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 Malignant neoplasm pancreas Obstructive sleep apnea CPAP- no longer using didn't work Psychiatric disorder Wears dentures Past Surgical History: Procedure Laterality Date HX ERCP N/A 05/25/2021 CHOLANGIOPANCREATOGRAPHY RETROGRADE ENDOSCOPIC performed by Omar Gonzalez MD at [facility] HX ERCP 05/2021 at [facility] HX HEART CATHETERIZATION HX HYSTERECTOMY HX PARTIAL THYROIDECTOMY goiter at age 8 y/o HX PORTACATH PLACEMENT HX SINUS SURGERY x 2 HX SPINAL SURGERY cervical laminectomy HX TUBAL LIGATION ID EDG US EXAM SURGICAL ALTER STOM DUODENUM/JEJUNUM N/A 05/25/2021 ULTRASOUND ENDOSCOPIC performed by Omar Gonzalez MD at [facility] ID ESOPHAGOGASTRODUODENOSCOPY TRANSORAL DIAGNOSTIC N/A 05/25/2021 ESOPHAGOGASTRODUODENOSCOPY performed by Omar Gonzalez MD at [facility] Subjective Subjective: agreed to OT Pain Level: Patient reports 0/10 pain. Objective: Cognition: Ox4 Level of alertness: alert/responsive Command follow: Follows multi step commands Safety judgment: intact FUNCTIONAL ACTIVITIES ASSESSMENT: ADLs Eating: NPO Grooming/Hygiene: SBA with hand, oral, facial, and hair hygiene while seated in recliner/chair Functional Mobility Rolling: SBA Supine to sit: SBA Sit to supine: Not assessed Sit to stand: SBA Chair/ ReclinerTransfer: SBA with wheeled walker, hung catheter and tubing on walker Functional Room Mobility: moved within constraints of tubing, marched in place SBA with wheeled walker Out of bed mobility deferred secondary to: Not applicable- Out of bed mobility performed as indicated above Therapeutic Intervention: Patient response to therapy: good, nurse arrived end of session to remove NG Assessment Assessment: decreased ADL status, decreased functional mobility, and decreased endurance Rehab potential/ prognosis: good Plan Treatment: OT to see patient for: ADL Training, Functional Mobility Training, UE ROM/Strengthening,and Patient Education End of session: Chair/bed alarm in place and activated: yes Call light within reach: yes Patient's location: Recliner/Chair Nursing notified of patient status: yes Patient will continue with above plan of care unless discharged or has change in status. Plan of care developed as indicated by initial assessment and patient???s current status. Nancy Morton OT ascom [phone] * Care Plan - Renetta Pineda, [employer] - 01/03/2022 12:19 PM CDT Problem: Physical Mobility, Impaired Goal: Mobility goal: Improve ambulation by discharge Description: Goals - Patient will complete bed mobility at Independent level. - Patient will complete sit<>stand at Independent level. - Patient will complete bed<>chair transfers at Modified independent level with most appropriate device. - Patient will ambulate 100 feet at Modified independent level with wheeled walker on level surface, so patient can navigate discharge environment. - Patient will complete 10 stairs with 2rail/s at MIN assist level with none assistive device,when appropriate. - Patient will tolerate 10-15 reps range of motion and strengthening exercises. Outcome: Progressing Weekly Therapy Plan of Care: 4-5x Based on today's session: PT Current Discharge Recommendation: Post acute care Physical Therapy Progress Note Patient: Krissy M Jm Date of : 1955 Length Of Stay: 5 Primary reason for admission: ICD-10-CM ICD-9-CM 1. 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 Pancreatic cyst K86.2 577.2 Therapy Eval Date: 12/30/21 PT Treatment Start Time : 0900 PT Treatment Stop Time : 929 Total Timed Treatment (min): 30 Activity order/ restrictions: PT. Precautions: Fall, Lines/ tubes: IV lines, catheter, and NG tube connected to suction and unable to be disconnected Supplemental O2:0 Past Medical History: Diagnosis Date Asthma Back pain bulging disc COPD (chronic obstructive pulmonary disease) pt. 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 Malignant neoplasm pancreas Obstructive sleep apnea CPAP- no longer using didn't work Psychiatric disorder Wears dentures Past Surgical History: Procedure Laterality Date HX ERCP N/A 05/25/2021 CHOLANGIOPANCREATOGRAPHY RETROGRADE ENDOSCOPIC performed by Omar Gonzalez MD at [facility] HX ERCP 05/2021 at [facility] HX HEART CATHETERIZATION HX HYSTERECTOMY HX PARTIAL THYROIDECTOMY goiter at age 8 y/o HX PORTACATH PLACEMENT HX SINUS SURGERY x 2 HX SPINAL SURGERY cervical laminectomy HX TUBAL LIGATION ID EDG US EXAM SURGICAL ALTER STOM DUODENUM/JEJUNUM N/A 05/25/2021 ULTRASOUND ENDOSCOPIC performed by Omar Gonzalez MD at [facility] ID ESOPHAGOGASTRODUODENOSCOPY TRANSORAL DIAGNOSTIC N/A 05/25/2021 ESOPHAGOGASTRODUODENOSCOPY performed by Omar Gonzalez MD at [facility] Subjective Subjective: Pt agreed to therapy Pain Level: Patient reports 0/10 pain. Objective Cognition: Ox4 Level of alertness: alert/responsive Command follow: Follows commands appropriately Lower Extremity Function: Left LE: ROM: WNL Strength: adequate ROM, adequate strength, WFL Right LE: ROM: WNL Strength: adequate ROM, adequate strength, WFL MOBILITY ASSESSMENT: Bed Mobility Rolling: Modified independent Supine to sit: Modified independent Sit to supine:Not assessed Transfers Sit to stand: SBA Transfers: to right wheeled walker Level of assist:SBA Gait level of assist: SBA Assistive device: wheeled walker Distance: standing marching and 10 ft forward and backwards as line would reach x 4 Gait pattern: good endurance and safety Balance Sittin/5- Moves/ returns trunkal midpoint in all planes >2 inches Standing: Good- Patient is able to maintain balance without hand-held support, limited postural sway (static). Accepts moderate challenge- able to maintain balance while picking object off floor (dynamic). Out of bed mobility deferred secondary to: Not applicable- Out of bed mobility performed as indicated above Therapeutic Intervention: Therapeutic exercise: 15 reps Patient/Family Education: Walker safety gait, transfers, exercises standing balance weight shifting Patient response to therapy: Pt exhibits good endurance and safety . Endurance limited due to pt onNG tube connected to suction and can't be take off. Pt appears to do well and motivated . Assessment Impairments: decreased endurance Functional mobility limitations: impaired gait Rehab potential/ prognosis: good PT Recommended DME: To be determined Plan Treatment: PT to see patient for: ROM, strengthening, endurance, and functional mobility training End of session Chair/bed alarm in place and activated: yes Call light within reach: yes Patient's location: Recliner/Chair Nursing notified of patient status: yes Patient will continue with above plan of care unless discharged or has change in status. Plan of care developed as indicated by initial assessment and patient???s current status. Renetta Pineda HEAD OF PHYSICS [id number] * Care Plan - Jeimy Ritter, RD - 01/03/2022 9:58 AM CDT Medical Nutrition Therapy Krissy Dillon is a 66 y.o. female patient. Nutrition Diagnosis: 1. Increased nutrient need (specify) (NI-5.1): protein, calories related to healing, surgery as evidenced by assessed needs below. 2. Inadequate oral intake (NI-2.1) related to whipple surgery as evidenced by NPO status, now day 5. Intervention/Recommendations: 1. NPO per plan of care. Day 5 NPO places patient at severe nutrition risk. 2. Briefly discussed anticipated gradual diet advance; recommend clamping NG tube when medically appropriate. 3. If unable to address enteral nutrition in next 48 hours, recommend parenteral nutrition support. Via central line, recommend: Clinimix 12/24 (1800 ml) @ 75 ml/hr + 50 Gm fat yields: 270 Gm CHO 918 CHO cals 52% CHO 90 Gm protein 360 protein cals 20% prot 50 Gm fat 500 fat cals 28% fat 1778 total cals 14.4 grams nitrogen; 98:1 non-protein calories: nitrogen 4. Monitor weight/labs. Monitor and Evaluate: 1. Total energy intake goal: address nutrition by day 5-7 NPO 2. Weight goal: stable 3. Nutrition related labs goal: WNL Glucose: 70-140 mg/dL 4. Nutrition focused physical findings Digestive goal: tolerate nutrition source, + BM Skin goal: no breakdown/surgical healing RD to reassess according to Nutrition Policy and Procedures at severe risk. Nutrition Assessment: Diet: NPO Subjective Findings: Patient S/P Whipple; proximal subtotal pancreatectomy with near-total duodenectomy, choledochoenterostomy and duodenojejunostomy with Pancreatojejunostomy on 12/29/21 forpancreatic cancer. Patient seen up in recliner today, NG to suction, 700 mL output in past 24 hours. Patient denies having any feelings of abdominal gas. Last BM was 12/28/21. Patient describes her weight history below. She says she had consumed Boost at home in an effort tore-gain weight, but got tired of it. Current PO intake: na Height: 5' 2 (157.5 cm) (12/29/211999) Weight: 67.3 kg (148 lb 5.9 oz) (12/29/211999) IBW +/- 10%: 110# %IBW: 135% Body mass index is 27.14 kg/m??. Weight Changes: Patient reports 20 lb weight loss between 02/2021 - 05/2021 (from 165-145 lbs) then an additional ~ 15 lbs during chemo therapy. Since being off chemo, she has gradually re-gained someof her weight. Wt Readings from Last 8 Encounters: 12/29/21 67.3 kg (148 lb 5.9 oz) 12/25/21 67.9 kg (149 lb 9.6 oz) 12/14/21 67.4 kg (148 lb 8 oz) 12/07/21 66.2 kg (146 lb) 11/20/21 63.8 kg (140 lb 9.6 oz) 10/31/21 62.9 kg (138 lb 9.6 oz) 10/17/21 64.3 kg (141 lb 11.2 oz) 10/03/21 62.6 kg (137 lb 14.4 oz) Estimation of Nutrition Needs Based on admit body weight of 67 kg. Calories: 1809 (27 kcal/kg) Protein: 80 (1.2 grams/kg) Fluid: 1809 (27 ml/kg) Nutrition Focused Physical Findings: Edema: none noted Last Bowel Movement (mm/dd/yyyy): 12/28/21 (01/02/22 1900) Wounds/Potential for Skin Breakdown: abdomen incision, drains Matt Score: 14 (01/02/22 1900) Food Allergies: kiwi Subcutaneous Fat Assessment Facial cheeks (buccal pads): Slightly depressed inward (mild) (12/30/21 1200) Muscle Wasting Assessment Temporal: Slight depression or shadowing (mild) (12/30/21 1200) Patient Active Problem List: Active Problems: Primary cancer of ampulla of Vater COPD (chronic obstructive pulmonary disease) Benign hypertension Past Medical History: Past Medical History: Diagnosis Date ??? Asthma ??? Back pain bulging disc ??? COPD (chronic obstructive pulmonary disease) pt. denies ??? HTN (hypertension) ??? Hyperlipidemia ??? Hyperthyroidism goiter as a achild ??? Latex sensitivity kiwi ??? Malignant neoplasm pancreas ??? Obstructive sleep apnea CPAP- no longer using didn't work ??? Psychiatric disorder ??? Wears dentures Allergies Allergen Reactions ??? Iodinated Contrast Media Itching ??? Sulfa (Sulfonamide Antibiotics) Dizziness and Itching ??? Erythromycin Itching ??? Kiwi Rash and Itching ??? Macrolide Antibiotics Itching ??? Naproxen Sodium Itching ??? Nitrofurantoin Itching Itching ??? Penicillins Itching Pertinent Labs: GLUCOSE and POC GLUCOSE Lab Results Component Value Date/Time GLUCOSE 128 (H) 01/03/2022 04:14 AM GLUCPOC 118 (H) 01/03/2022 07:48 AM GLUCPOC 135 (H) 01/03/2022 03:49 AM GLUCPOC 126 (H) 01/03/2022 12:32 AM GLUCPOC 125 (H) 01/02/2022 09:38 PM GLUCPOC 131 (H) 01/02/2022 03:05 PM GLUCPOC 143 (H) 01/02/2022 11:58 AM Lab Results Component Value Date/Time NA 149 (H) 01/03/2022 04:14 AM NA 149 (H) 01/02/2022 06:31 AM NA 145 01/01/2022 04:18 AM K 3.6 01/03/2022 04:14 AM K 3.7 01/02/2022 06:31 AM K 3.9 01/01/2022 04:18 AM CL 111 (H) 01/03/2022 04:14 AM CL 109 (H) 01/02/2022 06:31 AM CL 109 (H) 01/01/2022 04:18 AM CO2 29 01/03/2022 04:14 AM CO2 29 01/02/2022 06:31 AM CO2 28 01/01/2022 04:18 AM BUN 12 01/03/2022 04:14 AM BUN 11 01/02/2022 06:31 AM BUN 13 01/01/2022 04:18 AM CREAT 0.60 01/03/2022 04:14 AM CREAT 0.65 01/02/2022 06:31 AM CREAT 0.63 01/01/2022 04:18 AM CA 8.9 01/03/2022 04:14 AM CA 8.9 01/02/2022 06:31 AM CA 9.2 01/01/2022 04:18 AM GFR >60 01/03/2022 04:14 AM GFR >60 01/02/2022 06:31 AM GFR >60 01/01/2022 04:18 AM MG 1.8 05/29/2021 05:29 AM ALKPHOS 79 01/03/2022 04:14 AM ALKPHOS 79 01/02/2022 06:31 AM ALKPHOS 75 01/01/2022 04:18 AM Lab Results Component Value Date/Time CA 8.9 01/03/2022 04:14 AM LIPID panel: No results found for: CHOLTOT, HDL, LDLCALC, LDLDIRECT, TRIGLYCERIDE HEPATIC function panel result (most recent): Lab Results Component Value Date/Time ALT 15 01/03/2022 04:14 AM AST 10 01/03/2022 04:14 AM ALKPHOS 79 01/03/2022 04:14 AM Hemoglobin A1C result (most recent): No results found for: HGBA1C, [id number] Jeimy Ritter RD, LD Time spent: 15 minutes * Care Plan - Mac Caldera RN - 01/03/2022 5:34 AM CDT Problem: Pain, Potential/Actual Goal: Verbalizes/displays acceptable comfort level or baseline comfort level Description: Outcome: Progressing * Care Plan - Ashley Tabares, [employer] - 01/02/2022 3:38 PM CDT Problem: Physical Mobility, Impaired Goal: Mobility goal: Improve ambulation by discharge Description: Goals - Patient will complete bed mobility at Independent level. - Patient will complete sit<>stand at Independent level. - Patient will complete bed<>chair transfers at Modified independent level with most appropriate device. - Patient will ambulate 100 feet at Modified independent level with wheeled walker on level surface, so patient can navigate discharge environment. - Patient will complete 10 stairs with 2rail/s at MIN assist level with none assistive device,when appropriate. - Patient will tolerate 10-15 reps range of motion and strengthening exercises. Outcome: Progressing Weekly Therapy Plan of Care: 4-5x Based on today's session: PT Current Discharge Recommendation: Post acute care Physical Therapy Progress Note Patient: Krissy Dillon Date of : 1955 Length Of Stay: 4 Primary reason for admission: ICD-10-CM ICD-9-CM 1. 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 Pancreatic cyst K86.2 577.2 Therapy Eval Date: 12/30/21 PT Treatment Start Time : 1500 PT Treatment Stop Time : 1527 Total Timed Treatment (min): 27 Activity order/ restrictions: as tolerated Precautions: Fall, none Lines/ tubes: IV lines, catheter, drain, epidural, and telemetry Supplemental O2:yes Past Medical History: Diagnosis Date Asthma Back pain bulging disc COPD (chronic obstructive pulmonary disease) pt. 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 Malignant neoplasm pancreas Obstructive sleep apnea CPAP- no longer using didn't work Psychiatric disorder Wears dentures Past Surgical History: Procedure Laterality Date HX ERCP N/A 05/25/2021 CHOLANGIOPANCREATOGRAPHY RETROGRADE ENDOSCOPIC performed by Omar Gonzalez MD at [facility] HX ERCP 05/2021 at [facility] HX HEART CATHETERIZATION HX HYSTERECTOMY HX PARTIAL THYROIDECTOMY goiter at age 8 y/o HX PORTACATH PLACEMENT HX SINUS SURGERY x 2 HX SPINAL SURGERY cervical laminectomy HX TUBAL LIGATION ID EDG US EXAM SURGICAL ALTER STOM DUODENUM/JEJUNUM N/A 05/25/2021 ULTRASOUND ENDOSCOPIC performed by Omar Gonzalez MD at [facility] ID ESOPHAGOGASTRODUODENOSCOPY TRANSORAL DIAGNOSTIC N/A 05/25/2021 ESOPHAGOGASTRODUODENOSCOPY performed by Omar Gonzalez MD at [facility] Subjective Subjective: Patient willing to participate Pain Level: Patient reports 0/10 pain. Location: Type: none Objective Cognition: Ox4 Level of alertness: alert/responsive Command follow: Follows commands appropriately MOBILITY ASSESSMENT: Bed Mobility Rolling: Not assessed Supine to sit: MIN assist Sit to supine:MIN assist Transfers Sit to stand: MIN assist Transfers: Level of assist:Not assessed Gait level of assist: MIN assist Assistive device: wheeled walker Distance: 5 steps x 5 forward and backward, bed to recliner and back to bed Gait pattern: slightly unsteady, distance limited by continuous NG tube to suction Balance Sittin+/5- sits without UE support for >30 seconds Standing: Fair- Patient is able to maintain balance with hand-hold support- may require occasional minimal assistance (static). Out of bed mobility deferred secondary to: Therapeutic Intervention: Therapeutic exercise: bilateral LE exercises x 10 reps Patient/Family Education: Walker safety and Home exercise program Patient response to therapy: tolerated well Assessment Impairments: decreased strength and decreased endurance Functional mobility limitations: impaired bed mobility, impaired transfers, and impaired gait Rehab potential/ prognosis: good PT Recommended DME: To be determined Plan Treatment: PT to see patient for: strengthening and functional mobility training End of session Chair/bed alarm in place and activated: yes Call light within reach: yes Patient's location: Bed Nursing notified of patient status: yes Patient will continue with above plan of care unless discharged or has change in status. Plan of care developed as indicated by initial assessment and patient???s current status. Ashley Tabares, HEAD OF PHYSICS Ascom#[id number] * Care Plan - Edie Jean-Baptiste, Occupational Therapist - 01/02/2022 11:03 AM CDT Problem: Self-Care Deficit Goal: Self care goal: Improve ability to perform self care activities by discharge Description: Patient will complete bed mobility at Modified independent level log roll - Patient will complete grooming standing at SBA level. - Patient will complete functional toilet transfers with rolling walker at Modified independent level. - Patient will complete functional chair transfers with rolling walker at Modified independent level. - Patient will Ambulation to bathroom, Ambulation to sink and Item retrieval with rolling walker atSBA level. - Patient will complete toileting at SBA level. - Patient will complete upper extremity dressing at SBA level. - Patient will complete lower extremity dressing at MOD assist level. Outcome: Progressing Weekly Therapy Plan of Care: 4-5x Based on today's session: OT Current Discharge Recommendation: Post acute care Occupational Therapy Progress Note Patient: Krissy Dillon Date of : 1955 Length Of Stay: 4 Primary reason for admission: ICD-10-CM ICD-9-CM 1. 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 Pancreatic cyst K86.2 577.2 Therapy Eval Date: 12/30/21 OT Treatment Start Time : 1022 OT Treatment Stop Time : 1058 Total Timed Treatment (min): 36 Activity order/ Restrictions: OT eval/tx Precautions: Fall, NPO Lines/ tubes: IV lines, catheter and epidural, NG tube, and two drains Vision: unchanged Supplemental O2: nc Past Medical History: Diagnosis Date ??? Asthma ??? Back pain bulging disc ??? COPD (chronic obstructive pulmonary disease) pt. denies ??? HTN (hypertension) ??? Hyperlipidemia ??? Hyperthyroidism goiter as a achild ??? Latex sensitivity kiwi ??? Malignant neoplasm pancreas ??? Obstructive sleep apnea CPAP- no longer using didn't work ??? Psychiatric disorder ??? Wears dentures Past Surgical History: Procedure Laterality Date ??? HX ERCP N/A 05/25/2021 CHOLANGIOPANCREATOGRAPHY RETROGRADE ENDOSCOPIC performed by Omar Gonzalez MD at [facility] ??? HX ERCP 05/2021 at [facility] ??? HX HEART CATHETERIZATION ??? HX HYSTERECTOMY ??? HX PARTIAL THYROIDECTOMY goiter at age 8 y/o ??? HX PORTACATH PLACEMENT ??? HX SINUS SURGERY x 2 ??? HX SPINAL SURGERY cervical laminectomy ??? HX TUBAL LIGATION ??? ID EDG US EXAM SURGICAL ALTER STOM DUODENUM/JEJUNUM N/A 05/25/2021 ULTRASOUND ENDOSCOPIC performed by Omar Gonzalez MD at [facility] ??? ID ESOPHAGOGASTRODUODENOSCOPY TRANSORAL DIAGNOSTIC N/A 05/25/2021 ESOPHAGOGASTRODUODENOSCOPY performed by Omar Gonzalez MD at [facility] Subjective Subjective: Alert, agreeable to therapy Pain Level: Patient reports no pain. Objective: Cognition: Ox4 Level of alertness: alert/responsive Command follow: Follows commands appropriately Safety judgment: intact FUNCTIONAL ACTIVITIES ASSESSMENT: ADLs Grooming/Hygiene: supervision with oral (swab) hygiene while seated in recliner/chair Functional Mobility Supine to sit: MIN assist Sit to stand: SBA and MIN assist Chair/ ReclinerTransfer: MIN assist with wheeled walker Functional Room Mobility: Ambulated to recliner MIN assist with wheeled walker; assist for managinglines and tubing Out of bed mobility deferred secondary to: Not applicable- Out of bed mobility performed as indicated above Therapeutic Intervention: Therapeutic exercise: Sit>stands from recliner to FWW, pt progressed from Min A-->SBA 5 reps.Standing marches 5R x 4 with support of WW. Pt has no LOB, cues for WW safety. Patient/Family Education: Walker safety and Home Safety Patient response to therapy: Pt tolerates well Assessment Assessment: decreased ADL status, decreased functional mobility and decreased endurance Rehab potential/ prognosis: good Plan Treatment: OT to see patient for: ADL Training, Functional Mobility Training and Patient Education End of session: Chair/bed alarm in place and activated: yes Call light within reach: yes Patient's location: Recliner/Chair Nursing notified of patient status: yes Patient will continue with above plan of care unless discharged or has change in status. Plan of care developed as indicated by initial assessment and patient???s current status. Edie Jean-Baptiste, OTR/L * Care Plan - Ammy Avalos RN - 01/02/2022 5:58 AM CDT Problem: Infection Risk/Actual Goal: Infection Risk/Actual: Infection prevention, control, or resolution by discharge Description: Outcome: Variance Problem: Safety/Fall Goal: Safety/Fall: Absence of fall, injury, harm during hospitalization Description: Outcome: Variance Problem: Cognitive/Perceptual/Neuro Goal: Achieve optimal cognitive/perceptual/neurological function by discharge or maintain baseline function Outcome: Variance Problem: Medications Goal: Absence of/Reduce Fall Risk r/t Medications Description: Patient is a fall risk because of medications (i.e. - BP meds, CV/MACHINE HELPER meds, seizure meds, diuretics, pain meds, psych meds, current chemotherapy). Potential Interventions: 1. Orthostatic VS q day; educate to dangle before rising 2. Educate patient and family on how medications increase patient's fall risk (may make dizzy, lower BP, etc) 3. Do first dose education with all med/dosage changes. Document education 4.Reassess fall risk whenever a medication is changed/added (sleeping pill, pain med, BP med dose adjustment, etc) 5. Activate bed or chair alarm while in bed or up in chair 6. Limit combination of PRN meds whenever possible (i.e. - space out narcs and benzos) 7. Schedule frequent toileting for patients on diuretic to help prevent emergencies 8. Consult pharmacy to review meds and make recommendations (determine best timing, possible dosingadjustments, or identify other education that might be appropriate for patient) 9. Use floor mats next to bed and in front of chair when patient left unattended 10.Do not leave patient unattended while toileting or showering 11.Use appropriate assistive equipment (walker, shower chair, etc) 12. Include information on high risk medications, last doses, and patient tolerance in hand-off communication Outcome: Variance Problem: Toileting Needs Goal: Absence of/Reduce Fall Risk r/t Toileting Needs Description: Patient is a fall risk because of toileting needs (i.e. - IV fluids, UTI, diuretics, frequency, diarrhea). Potential Interventions: 1. Schedule toileting at frequent intervals based on patient's needs (i.e. - hourly, every 2 hours) 2. Frequent rounding between toileting 3. Bedside Commode 4. Activate bed or chair alarm while in bed or up in chair 5. Encourage male patients to use urinal 6. Educate patient on fall risk, use of grab bars, and to call for assistance 7. Assess length of IV and/or O2 tubing if applicable 8. Use bedpan or lift equipment if patient also has other fall risk factors (i.e. - mobility) Outcome: Variance Problem: Gastrointestinal Goal: Achieve optimal gastrointestinal function by discharge or maintain baseline function Outcome: Variance Problem: Genitourinary/Renal Goal: Achieve optimal genitourinary and renal function by discharge or maintain baseline function Outcome: Variance Problem: Skin Goal: Maintain skin integrity and/or promote wound healing by discharge Outcome: Variance * Care Plan - Ashley Tabares, [employer] - 01/01/2022 3:49 PM CDT Problem: Physical Mobility, Impaired Goal: Mobility goal: Improve ambulation by discharge Description: Goals - Patient will complete bed mobility at Independent level. - Patient will complete sit<>stand at Independent level. - Patient will complete bed<>chair transfers at Modified independent level with most appropriate device. - Patient will ambulate 100 feet at Modified independent level with wheeled walker on level surface, so patient can navigate discharge environment. - Patient will complete 10 stairs with 2rail/s at MIN assist level with none assistive device,when appropriate. - Patient will tolerate 10-15 reps range of motion and strengthening exercises. Outcome: Progressing Weekly Therapy Plan of Care: 4-5x Based on today's session: PT Current Discharge Recommendation: Post acute care Physical Therapy Progress Note Patient: Krissy Dillon Date of : 1955 Length Of Stay: 3 Primary reason for admission: ICD-10-CM ICD-9-CM 1. 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 Pancreatic cyst K86.2 577.2 Therapy Eval Date: 12/30/21 PT Treatment Start Time : 1523 PT Treatment Stop Time : 1546 Total Timed Treatment (min): 23 Activity order/ restrictions: as tolerated Precautions: Fall, none Lines/ tubes: IV lines, catheter, epidural, and NG tube ad 2 drains Supplemental O2: Past Medical History: Diagnosis Date Asthma Back pain bulging disc COPD (chronic obstructive pulmonary disease) pt. 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 Malignant neoplasm pancreas Obstructive sleep apnea CPAP- no longer using didn't work Psychiatric disorder Wears dentures Past Surgical History: Procedure Laterality Date HX ERCP N/A 05/25/2021 CHOLANGIOPANCREATOGRAPHY RETROGRADE ENDOSCOPIC performed by Omar Gonzalez MD at [facility] HX ERCP 05/2021 at [facility] HX HEART CATHETERIZATION HX HYSTERECTOMY HX PARTIAL THYROIDECTOMY goiter at age 8 y/o HX PORTACATH PLACEMENT HX SINUS SURGERY x 2 HX SPINAL SURGERY cervical laminectomy HX TUBAL LIGATION ID EDG US EXAM SURGICAL ALTER STOM DUODENUM/JEJUNUM N/A 05/25/2021 ULTRASOUND ENDOSCOPIC performed by Omar Gonzalez MD at [facility] ID ESOPHAGOGASTRODUODENOSCOPY TRANSORAL DIAGNOSTIC N/A 05/25/2021 ESOPHAGOGASTRODUODENOSCOPY performed by Omar Gonzalez MD at [facility] Subjective Subjective: Patient willing to participate Pain Level: Patient reports 4/10 pain. Location: stomach Type: surgical Objective Cognition: Ox4 Level of alertness: alert/responsive Command follow: Follows commands appropriately MOBILITY ASSESSMENT: Bed Mobility Rolling: Not assessed Supine to sit: Not assessed Sit to supine:Not assessed Transfers Sit to stand: MIN assist Transfers: Level of assist:Not assessed Gait level of assist: MIN assist Assistive device: wheeled walker Distance: few steps forward and backwards and marched in place (limited by NG tube) Gait pattern: slightly unsteady Balance Sittin+/5- sits without UE support for >30 seconds Standing: Fair- Patient is able to maintain balance with hand-hold support- may require occasional minimal assistance (static). Out of bed mobility deferred secondary to: Not applicable- Out of bed mobility performed as indicated above Therapeutic Intervention: Therapeutic exercise: seated LE exercises x 10 reps Patient/Family Education: Walker safety and Home exercise program Patient response to therapy: tolerated well Assessment Impairments: decreased strength and decreased endurance Functional mobility limitations: impaired bed mobility, impaired transfers, and impaired gait Rehab potential/ prognosis: good PT Recommended DME: To be determined Plan Treatment: PT to see patient for: strengthening and functional mobility training End of session Chair/bed alarm in place and activated: yes Call light within reach: yes Patient's location: Recliner/Chair Nursing notified of patient status: yes Patient will continue with above plan of care unless discharged or has change in status. Plan of care developed as indicated by initial assessment and patient???s current status. Ashley Tabares, HEAD OF PHYSICS Ascom#[id number] * Care Plan - Sabiha Orellana, RN - 01/01/2022 10:21 AM CDT Care Management Initial Assessment Initial Discharge Planning Assessment completed. Discussed Care Management's role and Discharge planning. Discharge Plan: home with HHC/Family assist Comments: [place] [facility] [place], from home with spouse. No DME HEAD OF PHYSICS. Plan: HHC/Fam assist. Patient Discharge Planning Goal: TBD Patient will potentially discharge to a SNF/NH? No Care Management visited with: patient via in person. Prior to admission, patient resides at: own home. Prior to admission, living arrangements: spouse. Prior to admission, patient's functional level:independent; uses N/A for mobility; needs assistancewith iADLs: N/A Prior to admission, the patient has the following DME? Yes BP cuff every day Services in the home: none Serviced by Receives hemodialysis? No Emergency contact(s): Extended Emergency Contact Information Primary Emergency Contact: Brittni Taylor Mobile Relation: Daughter Secondary Emergency Contact: pat dillon Mobile Relation: Spouse Preferred language: Vincentian Finish Grinder needed? No Insurance coverage verified: Payor: [employer] MEDICARE ADVANTAGE / Plan: [employer] HMO [facility] [id number] / Product Type: HMO / Prescription coverage: no Preferred Pharmacy verified: [id number] [place], [place] - [address] Employment Status: not employed Has VA Benefits: no PCP verified as: Rosibel Muse MD Patient has not had a stay at an acute care hospital in the last 30 days. Recent Falls?: Last Known Fall: No falls Plan for transportation at discharge: or daughter in personal vehicle Care Management contact information provided. Care Management will continue to follow and assist asneeded. * Care Plan - Jeanne Alonso GN - 01/01/2022 10:11 AM CDT 1010 Discovered NG tube disconnected from patient upon rounding. Family at bedside , noticed the sound for a few minutes. * Care Plan - Rani Bcuk GN - 01/01/2022 6:28 AM CDT Problem: Infection Risk/Actual Goal: Infection Risk/Actual: Infection prevention, control, or resolution by discharge Description: Outcome: Variance Problem: Safety/Fall Goal: Safety/Fall: Absence of fall, injury, harm during hospitalization Description: Outcome: Variance Problem: Cognitive/Perceptual/Neuro Goal: Achieve optimal cognitive/perceptual/neurological function by discharge or maintain baseline function Outcome: Variance Problem: Mobility Goal: Absence of/Reduce Fall Risk r/t Mobility Deficits Description: Patient is a fall risk because of mobility deficits. A patient with mobility deficits is automatically at high risk for falls. Potential Interventions: 1. Schedule patient toileting to avoid emergency trips to the bathroom 2. If available, use floor mats next to bed or in front of chair when up 3. If applicable, remove floor mats when getting patient up and replace when leaving patient 4. Assistive devices as required, educate patient on correct use of device (walkers, shower chairs,lift equipment, etc.) 5. Exit bed on patient's strongest side 6. Gait belt easily accessible 7. Activate bed or chair alarm while in bed or up in chair 8. Get order for PT consult if appropriate 9. Patient requires 2 assist - bedpan and bed bath if 2 staff not available, bedside commode if 2 staff are available entire time 10. Slow progressive position changes if patient experiencing dizziness Outcome: Variance Problem: Medications Goal: Absence of/Reduce Fall Risk r/t Medications Description: Patient is a fall risk because of medications (i.e. - BP meds, CV/MACHINE HELPER meds, seizure meds, diuretics, pain meds, psych meds, current chemotherapy). Potential Interventions: 1. Orthostatic VS q day; educate to dangle before rising 2. Educate patient and family on how medications increase patient's fall risk (may make dizzy, lower BP, etc) 3. Do first dose education with all med/dosage changes. Document education 4.Reassess fall risk whenever a medication is changed/added (sleeping pill, pain med, BP med dose adjustment, etc) 5. Activate bed or chair alarm while in bed or up in chair 6. Limit combination of PRN meds whenever possible (i.e. - space out narcs and benzos) 7. Schedule frequent toileting for patients on diuretic to help prevent emergencies 8. Consult pharmacy to review meds and make recommendations (determine best timing, possible dosingadjustments, or identify other education that might be appropriate for patient) 9. Use floor mats next to bed and in front of chair when patient left unattended 10.Do not leave patient unattended while toileting or showering 11.Use appropriate assistive equipment (walker, shower chair, etc) 12. Include information on high risk medications, last doses, and patient tolerance in hand-off communication Outcome: Variance Problem: Toileting Needs Goal: Absence of/Reduce Fall Risk r/t Toileting Needs Description: Patient is a fall risk because of toileting needs (i.e. - IV fluids, UTI, diuretics, frequency, diarrhea). Potential Interventions: 1. Schedule toileting at frequent intervals based on patient's needs (i.e. - hourly, every 2 hours) 2. Frequent rounding between toileting 3. Bedside Commode 4. Activate bed or chair alarm while in bed or up in chair 5. Encourage male patients to use urinal 6. Educate patient on fall risk, use of grab bars, and to call for assistance 7. Assess length of IV and/or O2 tubing if applicable 8. Use bedpan or lift equipment if patient also has other fall risk factors (i.e. - mobility) Outcome: Variance Problem: Nutrition/Endocrine Goal: Achieve optimal nutrition and fluid status to meet metabolic needs throughout hospitalization Outcome: Variance Problem: Gastrointestinal Goal: Achieve optimal gastrointestinal function by discharge or maintain baseline function Outcome: Variance Problem: Genitourinary/Renal Goal: Achieve optimal genitourinary and renal function by discharge or maintain baseline function Outcome: Variance Problem: Skin Goal: Maintain skin integrity and/or promote wound healing by discharge Outcome: Variance Problem: Physical Mobility, Impaired Goal: Mobility goal: Improve ambulation by discharge Description: Goals - Patient will complete bed mobility at Independent level. - Patient will complete sit<>stand at Independent level. - Patient will complete bed<>chair transfers at Modified independent level with most appropriate device. - Patient will ambulate 100 feet at Modified independent level with wheeled walker on level surface, so patient can navigate discharge environment. - Patient will complete 10 stairs with 2rail/s at MIN assist level with none assistive device,when appropriate. - Patient will tolerate 10-15 reps range of motion and strengthening exercises. Outcome: Variance * Care Plan - Rani Buck GN - 12/31/2021 11:08 PM CDT 1900: BSSR with JESSICA Christopher. Pt resting in bed, watching tv, call light within reach, alarms active. Epidural infusing. No needs at this time. * Care Plan - Rani Buck GN - 12/31/2021 6:23 AM CDT Problem: Infection Risk/Actual Goal: Infection Risk/Actual: Infection prevention, control, or resolution by discharge Description: Outcome: Variance Problem: Mobility Goal: Absence of/Reduce Fall Risk r/t Mobility Deficits Description: Patient is a fall risk because of mobility deficits. A patient with mobility deficits is automatically at high risk for falls. Potential Interventions: 1. Schedule patient toileting to avoid emergency trips to the bathroom 2. If available, use floor mats next to bed or in front of chair when up 3. If applicable, remove floor mats when getting patient up and replace when leaving patient 4. Assistive devices as required, educate patient on correct use of device (walkers, shower chairs,lift equipment, etc.) 5. Exit bed on patient's strongest side 6. Gait belt easily accessible 7. Activate bed or chair alarm while in bed or up in chair 8. Get order for PT consult if appropriate 9. Patient requires 2 assist - bedpan and bed bath if 2 staff not available, bedside commode if 2 staff are available entire time 10. Slow progressive position changes if patient experiencing dizziness Outcome: Variance Problem: Medications Goal: Absence of/Reduce Fall Risk r/t Medications Description: Patient is a fall risk because of medications (i.e. - BP meds, CV/MACHINE HELPER meds, seizure meds, diuretics, pain meds, psych meds, current chemotherapy). Potential Interventions: 1. Orthostatic VS q day; educate to dangle before rising 2. Educate patient and family on how medications increase patient's fall risk (may make dizzy, lower BP, etc) 3. Do first dose education with all med/dosage changes. Document education 4.Reassess fall risk whenever a medication is changed/added (sleeping pill, pain med, BP med dose adjustment, etc) 5. Activate bed or chair alarm while in bed or up in chair 6. Limit combination of PRN meds whenever possible (i.e. - space out narcs and benzos) 7. Schedule frequent toileting for patients on diuretic to help prevent emergencies 8. Consult pharmacy to review meds and make recommendations (determine best timing, possible dosingadjustments, or identify other education that might be appropriate for patient) 9. Use floor mats next to bed and in front of chair when patient left unattended 10.Do not leave patient unattended while toileting or showering 11.Use appropriate assistive equipment (walker, shower chair, etc) 12. Include information on high risk medications, last doses, and patient tolerance in hand-off communication Outcome: Variance Problem: Toileting Needs Goal: Absence of/Reduce Fall Risk r/t Toileting Needs Description: Patient is a fall risk because of toileting needs (i.e. - IV fluids, UTI, diuretics, frequency, diarrhea). Potential Interventions: 1. Schedule toileting at frequent intervals based on patient's needs (i.e. - hourly, every 2 hours) 2. Frequent rounding between toileting 3. Bedside Commode 4. Activate bed or chair alarm while in bed or up in chair 5. Encourage male patients to use urinal 6. Educate patient on fall risk, use of grab bars, and to call for assistance 7. Assess length of IV and/or O2 tubing if applicable 8. Use bedpan or lift equipment if patient also has other fall risk factors (i.e. - mobility) Outcome: Variance Problem: Nutrition/Endocrine Goal: Achieve optimal nutrition and fluid status to meet metabolic needs throughout hospitalization Outcome: Variance Problem: Gastrointestinal Goal: Achieve optimal gastrointestinal function by discharge or maintain baseline function Outcome: Variance Problem: Genitourinary/Renal Goal: Achieve optimal genitourinary and renal function by discharge or maintain baseline function Outcome: Variance Problem: Skin Goal: Maintain skin integrity and/or promote wound healing by discharge Outcome: Variance * Care Plan - Rani Buck GN - 12/30/2021 11:23 PM CDT 1909: BSSR with JESSICA Mcgill. Pt resting in bed, no needs at this time, IV infusing. Alarms active 2112: Medications given, assessment completed. * Therapy Evaluation - Nuzhat Chavez, Physical Therapist - 12/30/2021 2:28 PM CDT Physical Therapy order received, chart reviewed, and evaluation completed. Please see full evaluation below for details. Daily PT notes will be located in Care Plan notes. Thank You. Weekly Therapy Plan of Care: 4-5x Based on today's session PT Current Discharge Recommendation: Post acute care Physical Therapy Evaluation Patient: Krissy Dillon Date of : 1955 Length Of Stay: 1 Primary reason for admission: ICD-10-CM ICD-9-CM 1. 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 Pancreatic cyst K86.2 577.2 PT Evaluation Start Time : 1319 PT Evaluation Stop Time : 1342 PT Evaluation Total Minutes: 23 Activity order/ restrictions: PT eval. Precautions: Fall Lines/ tubes: IV lines, drain, epidural and telemetry, 2 drains, NG tube Supplemental O2: 4 LPM Past Medical History: Diagnosis Date ??? Asthma ??? Back pain bulging disc ??? COPD (chronic obstructive pulmonary disease) pt. denies ??? HTN (hypertension) ??? Hyperlipidemia ??? Hyperthyroidism goiter as a achild ??? Latex sensitivity kiwi ??? Malignant neoplasm pancreas ??? Obstructive sleep apnea CPAP- no longer using didn't work ??? Psychiatric disorder ??? Wears dentures Past Surgical History: Procedure Laterality Date ??? HX ERCP N/A 05/25/2021 CHOLANGIOPANCREATOGRAPHY RETROGRADE ENDOSCOPIC performed by Omar Gonzalez MD at [facility] ??? HX ERCP 05/2021 at [facility] ??? HX HEART CATHETERIZATION ??? HX HYSTERECTOMY ??? HX PARTIAL THYROIDECTOMY goiter at age 8 y/o ??? HX PORTACATH PLACEMENT ??? HX SINUS SURGERY x 2 ??? HX SPINAL SURGERY cervical laminectomy ??? HX TUBAL LIGATION ??? ID EDG US EXAM SURGICAL ALTER STOM DUODENUM/JEJUNUM N/A 05/25/2021 ULTRASOUND ENDOSCOPIC performed by Omar Gonzalez MD at [facility] ??? ID ESOPHAGOGASTRODUODENOSCOPY TRANSORAL DIAGNOSTIC N/A 05/25/2021 ESOPHAGOGASTRODUODENOSCOPY performed by Omar Gonzalez MD at [facility] Subjective Subjective: Agreed to participate. Pt demonstrates delayed responses when answering questions. Pain Level: Patient reports 0/10 pain. Type of home: private residence Stairs: 10-12 steps. Home Equipment: Cane Living Situation: with . Daughter to also stay with her, per chart. Prior level of function: Independent mobility. History obtained from: patient. Objective Cognition: oriented to person and oriented to place Level of alertness: alert/responsive Command follow: Follows commands with increased time MOBILITY ASSESSMENT: Bed Mobility Rolling: MIN assist Supine to sit: Not assessed Sit to supine:MIN assist x 1-2; (2 staff utilized for pt comfort) Transfers Sit to stand: MOD assist Transfers: to left wheeled walker Level of assist:MIN assist Gait level of assist: MIN assist Assistive device: wheeled walker Distance: 2 feet Gait pattern: Flexed posture, slow movement Out of bed mobility deferred secondary to: Not applicable- Out of bed mobility performed as indicated above Balance Sittin+/5- Support self with >50% effort using UE, requires therapist assistance Standing: Fair- Patient is able to maintain balance with hand-hold support- may require occasional minimal assistance (static). Therapeutic Intervention: Patient/Family Education: PT plan of care, techniques to improve ease and lessen pain on sit to stand, log roll. Patient response to therapy: Pt demonstrates weakness and balance deficits. Continue PT to advance mobility as tolerated. Assessment Impairments: decreased strength, decreased endurance and decreased balance Functional mobility limitations: impaired bed mobility, impaired transfers, impaired gait and impaired stairs/curb Rehab potential/ prognosis: good Clinical Presentation: Evolving with changing characteristics Evaluation Complexity:Low Complexity *These findings are based on patient's self reporting, therapist's objective findings and professional determinations. PT Recommended DME: To be determined Plan Treatment: PT to see patient for: functional mobility training Goals - Patient will complete bed mobility at Independent level. - Patient will complete sit<>stand at Independent level. - Patient will complete bed<>chair transfers at Modified independent level with most appropriate device. - Patient will ambulate 100 feet at Modified independent level with wheeled walker on level surface, so patient can navigate discharge environment. - Patient will complete 10 stairs with 2rail/s at MIN assist level with none assistive device,when appropriate. - Patient will tolerate 10-15 reps range of motion and strengthening exercises. Patient/Family involved in goal setting: yes End of session Chair/bed alarm in place and activated: yes Call light within reach: yes Patient's location: Bed Nursing notified of patient status: yes Patient will continue with above plan of care unless discharged or has change in status. Plan of care developed as indicated by initial assessment and patient???s current status. Nuzhat Chavez DPT [facility] #[id number] * Care Plan - Sameera Workman, RD - 12/30/2021 12:24 PM CDT Medical Nutrition Therapy Krissy Dillon is a 66 y.o. female patient. Nutrition Diagnosis: 1. Increased nutrient need (specify) (NI-5.1): protein, calories related to healing, surgery as evidenced by assessed needs below. Intervention/Recommendations: 1. NPO. Recommend address nutrition by day 5 NPO/clear liquid. 2. Briefly discussed anticipated gradual diet advance. 3. Monitor weight/labs. Monitor and Evaluate: 1. Total energy intake goal: address nutrition by day 5 NPO 2. Weight goal: stable 3. Nutrition related labs goal: WNL Glucose: 70-140 mg/dL 4. Nutrition focused physical findings Digestive goal: tolerate nutrition source, + BM Skin goal: no breakdown/surgical healing RD to reassess according to Nutrition Policy and Procedures at moderate risk. Nutrition Assessment: Diet: NPO Subjective Findings: Patient S/P Whipple; proximal subtotal pancreatectomy with near-total duodenectomy, choledochoenterostomy and duodenojejunostomy with Pancreatojejunostomy For pancreaticcancer. Patient seen up in recliner today, NG to suction. Patient nods off during RD visit. She reports previous good appetite and stable weight. ?? Current PO intake: na Height: 5' 2 (157.5 cm) (12/29/211999) Weight: 67.3 kg (148 lb 5.9 oz) (12/29/211999) IBW +/- 10%: 110# %IBW: 135% Body mass index is 27.14 kg/m??. Weight Changes: denies Wt Readings from Last 8 Encounters: 12/29/21 67.3 kg (148 lb 5.9 oz) 12/25/21 67.9 kg (149 lb 9.6 oz) 12/14/21 67.4 kg (148 lb 8 oz) 12/07/21 66.2 kg (146 lb) 11/20/21 63.8 kg (140 lb 9.6 oz) 10/31/21 62.9 kg (138 lb 9.6 oz) 10/17/21 64.3 kg (141 lb 11.2 oz) 10/03/21 62.6 kg (137 lb 14.4 oz) Estimation of Nutrition Needs Based on admit body weight of 67 kg. Calories: 1809 (27 kcal/kg) Protein: 80 (1.2 grams/kg) Fluid: 1809 (27 ml/kg) Nutrition Focused Physical Findings: Edema: none noted Last Bowel Movement (mm/dd/yyyy): 12/28/21 (12/30/21 0800) Wounds/Potential for Skin Breakdown: abdomen incision, drains Matt Score: 20 (12/30/21 0800) Food Allergies: kiwi Subcutaneous Fat Assessment Facial cheeks (buccal pads): Slightly depressed inward (mild) (12/30/21 1200) Muscle Wasting Assessment Temporal: Slight depression or shadowing (mild) (12/30/21 1200) Patient Active Problem List: Active Problems: Primary cancer of ampulla of Vater COPD (chronic obstructive pulmonary disease) Benign hypertension Past Medical History: Past Medical History: Diagnosis Date ??? Asthma ??? Back pain bulging disc ??? COPD (chronic obstructive pulmonary disease) pt. denies ??? HTN (hypertension) ??? Hyperlipidemia ??? Hyperthyroidism goiter as a achild ??? Latex sensitivity kiwi ??? Malignant neoplasm pancreas ??? Obstructive sleep apnea CPAP- no longer using didn't work ??? Psychiatric disorder ??? Wears dentures Allergies Allergen Reactions ??? Iodinated Contrast Media Itching ??? Sulfa (Sulfonamide Antibiotics) Dizziness and Itching ??? Erythromycin Itching ??? Kiwi Rash and Itching ??? Macrolide Antibiotics Itching ??? Naproxen Sodium Itching ??? Nitrofurantoin Itching Itching ??? Penicillins Itching Pertinent Labs: GLUCOSE and POC GLUCOSE Lab Results Component Value Date/Time GLUCOSE 156 (H) 12/30/2021 05:04 AM GLUCPOC 153 (H) 12/30/2021 09:56 AM GLUCPOC 153 (H) 12/30/2021 05:02 AM GLUCPOC 151 (H) 12/30/2021 02:49 AM GLUCPOC 155 (H) 12/29/2021 11:18 PM GLUCPOC 160 (H) 12/29/2021 09:52 PM GLUCPOC 159 (H) 12/29/2021 09:01 PM GLUCPOC 185 (H) 12/29/2021 02:59 PM GLUCPOC 172 (H) 12/29/2021 01:05 PM Lab Results Component Value Date/Time NA 141 12/30/2021 05:04 AM NA 141 12/29/2021 05:54 PM NA 139 12/25/2021 11:04 AM K 4.5 12/30/2021 05:04 AM K 4.5 12/29/2021 05:54 PM K 4.7 12/25/2021 11:04 AM CL 105 12/30/2021 05:04 AM CL 107 12/29/2021 05:54 PM CL 99 12/25/2021 11:04 AM CO2 23 12/30/2021 05:04 AM CO2 19 (L) 12/29/2021 05:54 PM CO2 26 12/25/2021 11:04 AM BUN 21 (H) 12/30/2021 05:04 AM BUN 19 12/29/2021 05:54 PM BUN 17 12/25/2021 11:04 AM CREAT 0.90 12/30/2021 05:04 AM CREAT 0.87 12/29/2021 05:54 PM CREAT 0.82 12/25/2021 11:04 AM CA 9.1 12/30/2021 05:04 AM CA 9.6 12/29/2021 05:54 PM CA 10.4 12/25/2021 11:04 AM GFR >60 12/30/2021 05:04 AM GFR >60 12/29/2021 05:54 PM GFR >60 12/25/2021 11:04 AM MG 1.8 05/29/2021 05:29 AM ALKPHOS 81 12/30/2021 05:04 AM ALKPHOS 132 12/25/2021 11:04 AM ALKPHOS 314 (H) 05/29/2021 05:29 AM Lab Results Component Value Date/Time CA 9.1 12/30/2021 05:04 AM LIPID panel: No results found for: CHOLTOT, HDL, LDLCALC, LDLDIRECT, TRIGLYCERIDE HEPATIC function panel result (most recent): Lab Results Component Value Date/Time ALT 55 (H) 12/30/2021 05:04 AM AST 59 (H) 12/30/2021 05:04 AM ALKPHOS 81 12/30/2021 05:04 AM Hemoglobin A1C result (most recent): No results found for: HGBA1C, [id number] Sameera Workman RD, LD Time spent: 15 minutes * Therapy Evaluation - Sherry Andres, Occupational Therapist - 12/30/2021 9:43 AM CDT Occupational Therapy order received, chart reviewed, and evaluation completed. Please see full evaluation below for details. Daily OT notes will be located in Care Plan notes. Thank You. Weekly Therapy Plan of Care: 4-5x Based on today's session: OT Current Discharge Recommendation: Post acute care Occupational Therapy Evaluation Patient: Krissy Dillon Date of : 1955 Length Of Stay: 1 Primary reason for admission: ICD-10-CM ICD-9-CM 1. 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 Pancreatic cyst K86.2 577.2 OT Evaluation Start Time : 08 OT Evaluation Stop Time : 845 OT Evaluation Total Minutes: 41 Activity order/ Restrictions: Ot ordered Precautions: Fall, none Lines/ tubes: IV lines, catheter, drain x2, epidural, telemetry and NG tube for suction Vision: [facility] Supplemental O2: 3L Past Medical History: Diagnosis Date ??? Asthma ??? Back pain bulging disc ??? COPD (chronic obstructive pulmonary disease) pt. denies ??? HTN (hypertension) ??? Hyperlipidemia ??? Hyperthyroidism goiter as a achild ??? Latex sensitivity kiwi ??? Malignant neoplasm pancreas ??? Obstructive sleep apnea CPAP- no longer using didn't work ??? Psychiatric disorder ??? Wears dentures Past Surgical History: Procedure Laterality Date ??? HX ERCP N/A 05/25/2021 CHOLANGIOPANCREATOGRAPHY RETROGRADE ENDOSCOPIC performed by Omar Gonzalez MD at [facility] ??? HX ERCP 05/2021 at [facility] ??? HX HEART CATHETERIZATION ??? HX HYSTERECTOMY ??? HX PARTIAL THYROIDECTOMY goiter at age 8 y/o ??? HX PORTACATH PLACEMENT ??? HX SINUS SURGERY x 2 ??? HX SPINAL SURGERY cervical laminectomy ??? HX TUBAL LIGATION ??? ID EDG US EXAM SURGICAL ALTER STOM DUODENUM/JEJUNUM N/A 05/25/2021 ULTRASOUND ENDOSCOPIC performed by Omar Gonzalez MD at [facility] ??? ID ESOPHAGOGASTRODUODENOSCOPY TRANSORAL DIAGNOSTIC N/A 05/25/2021 ESOPHAGOGASTRODUODENOSCOPY performed by Omar Gonzalez MD at [facility] Subjective Subjective: I want to get out of the bed Pain Level: Patient reports 0/10 pain. Prior Level Information Type of home: private residence Home layout:one level Stairs: 10-12 steps to enter Home Equipment: cane Living Situation: lives with but her daughter is going to stay with her too Prior level of function: Independent with ADLs, transfers and IADLs, she still drives Objective: Cognition: Ox4 Level of alertness: alert/responsive Command follow: Follows commands appropriately Safety judgment: intact UE ROM: [facility] UE Strength: [facility] 5/5 shoulder flexion, 5/5 elbow flexion and 5/5 clinical research nurse strength in both arms Coordination: [facility] FUNCTIONAL ACTIVITIES ASSESSMENT: ADLs Grooming/Hygiene: supervision with oral(swab) and facial hygiene while seated in recliner/chair Upper Extremity Dressing: moderate assistance with gown while supine in the bed Toileting Hygiene: Dependent--catheter Functional Mobility Rolling: MIN assist Supine to sit: MIN assist log roll Sit to supine: Not assessed Sit to stand: MIN assist Toilet Transfer: Not assessed with none Chair/ ReclinerTransfer: MIN assist with hand held assistance Pt was able to sit at the edge the bed with SBA to minimal assistance. Pt did get dizzy at the edgeof the bed. The therapist offered to lay her back down in the bed but the Pt declined to lay back down. Pt requested that she be able to sit there for a little while. The therapist could not leave her at the edge of the bed to get the vitals machine due to safety concerns and the RN was not available at that time. The Pt sat at the edge of the bed for a long period of time due to the dizziness. After a while she finally felt better and transferred to the chair with Minimal assistance. Once the Pt was in the chair her vitals were BP 113/75, 97% for O2 and 115 for HR. RN notified. Pt stated she felt better in the chair and her dizziness was better. Out of bed mobility deferred secondary to: Not applicable- Out of bed mobility performed as indicated above Therapeutic Intervention: Patient/Family Education: Energy conservation and Pursed-lip breathing Patient response to therapy: Pt did well with therapy. Her biggest barrier was her dizziness but itdid get better. She did well with purse lip breathing and energy conservation techniques. Assessment Assessment: decreased ADL status, decreased functional mobility and decreased endurance Rehab potential/ prognosis: good Clinical Presentation: Stable and/or uncomplicated EVALUATION COMPLEXITY: Low Complexity *These findings are based on patient's self-reporting, therapist's objective findings and professional determinations. Plan Treatment: OT to see patient for: ADL Training, Functional Mobility Training and Patient Education Goals - Patient will complete bed mobility at Modified independent level log roll - Patient will complete grooming standing at SBA level. - Patient will complete functional toilet transfers with rolling walker at Modified independent level. - Patient will complete functional chair transfers with rolling walker at Modified independent level. - Patient will Ambulation to bathroom, Ambulation to sink and Item retrieval with rolling walker atSBA level. - Patient will complete toileting at SBA level. - Patient will complete upper extremity dressing at SBA level. - Patient will complete lower extremity dressing at MOD assist level. Patient involved in goal setting: yes End of session: Chair/bed alarm in place and activated: yes Call light within reach: yes Patient's location: Recliner/Chair Nursing notified of patient status: yes Patient will continue with above plan of care unless discharged or has change in status. Plan of care developed as indicated by initial assessment and patient???s current status. 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 Office Visit [facility] Oncology and Hematology - Erick [address] [facility] [address] [place] [address] Royal Newell MD [address] [facility] [address] [place] [address] Scheduled Orders Name Type Priority Associated Diagnoses Orde r Schedule PREPARE RED BLOOD CELLS Blood Bank Routine Once for 1 Occur rences starting 12/29/2021 until 12/29/2021 documented as of this encounter Procedures Procedure Name Priority Date/Time Associated Diagnosis Comments CBC WITHOUT DIFFERENTIAL Routine 01/08/2022 5:25 AM CDT BASIC METABOLIC PANEL Routine 01/08/2022 5:25 AM CDT CBC WITHOUT DIFFERENTIAL Routine 01/07/2022 5:37 AM CDT BASIC METABOLIC PANEL Routine 01/07/2022 5:37 AM CDT CBC WITHOUT DIFFERENTIAL Routine 01/06/2022 9:45 AM CDT BASIC METABOLIC PANEL Routine 01/06/2022 9:45 AM CDT BASIC METABOLIC PANEL Routine 01/05/2022 4:55 AM CDT CBC WITHOUT DIFFERENTIAL Routine 01/05/2022 4:54 AM CDT POC GLUCOSE Routine 01/05/2022 4:07 AM CDT POC GLUCOSE Routine 01/04/2022 11:46 PM CDT POC GLUCOSE Routine 01/04/2022 9:43 PM CDT POC GLUCOSE Routine 01/04/2022 6:50 PM CDT POC GLUCOSE Routine 01/04/2022 12:26 PM CDT CBC WITHOUT DIFFERENTIAL Routine 01/04/2022 6:05 AM CDT BASIC METABOLIC PANEL Routine 01/04/2022 6:05 AM CDT POC GLUCOSE Routine 01/04/2022 4:01 AM CDT POC GLUCOSE Routine 01/03/2022 11:44 PM CDT POC GLUCOSE Routine 01/03/2022 9:14 PM CDT POC GLUCOSE Routine 01/03/2022 4:42 PM CDT XR UPR GI WATER MARÍA CONTRAST Routine 01/03/2022 11:01 AM CDT POC GLUCOSE Routine 01/03/2022 7:48 AM CDT CBC WITHOUT DIFFERENTIAL Routine 01/03/2022 4:14 AM CDT COMPREHENSIVE METABOLIC PANEL Routine 01/03/2022 4:14 AM CDT POC GLUCOSE Routine 01/03/2022 3:49 AM CDT POC GLUCOSE Routine 01/03/2022 12:32 AM CDT POC GLUCOSE Routine 01/02/2022 9:38 PM CDT POC GLUCOSE Routine 01/02/2022 3:05 PM CDT POC GLUCOSE Routine 01/02/2022 11:58 AM CDT POC GLUCOSE Routine 01/02/2022 8:10 AM CDT CBC WITHOUT DIFFERENTIAL Routine 01/02/2022 6:31 AM CDT COMPREHENSIVE METABOLIC PANEL Routine 01/02/2022 6:31 AM CDT POC GLUCOSE Routine 01/02/2022 4:11 AM CDT POC GLUCOSE Routine 01/02/2022 12:17 AM CDT POC GLUCOSE Routine 01/01/2022 8:04 PM CDT POC GLUCOSE Routine 01/01/2022 6:01 PM CDT POC GLUCOSE Routine 01/01/2022 12:28 PM CDT POC GLUCOSE Routine 01/01/2022 10:31 AM CDT CBC WITHOUT DIFFERENTIAL Routine 01/01/2022 4:18 AM CDT COMPREHENSIVE METABOLIC PANEL Routine 01/01/2022 4:18 AM CDT POC GLUCOSE Routine 01/01/2022 4:07 AM CDT POC GLUCOSE Routine 12/31/2021 11:44 PM CDT POC GLUCOSE Routine 12/31/2021 8:27 PM CDT POC GLUCOSE Routine 12/31/2021 3:56 PM CDT POC GLUCOSE Routine 12/31/2021 1:20 PM CDT POC GLUCOSE Routine 12/31/2021 8:54 AM CDT CBC WITHOUT DIFFERENTIAL Routine 12/31/2021 5:23 AM CDT COMPREHENSIVE METABOLIC PANEL Routine 12/31/2021 5:23 AM CDT POC GLUCOSE Routine 12/31/2021 5:17 AM CDT POC GLUCOSE Routine 12/31/2021 3:03 AM CDT POC GLUCOSE Routine 12/30/2021 11:55 PM CDT POC GLUCOSE Routine 12/30/2021 9:12 PM CDT POC GLUCOSE Routine 12/30/2021 4:08 PM CDT POC GLUCOSE Routine 12/30/2021 1:36 PM CDT POC GLUCOSE Routine 12/30/2021 9:56 AM CDT CBC WITHOUT DIFFERENTIAL Routine 12/30/2021 5:04 AM CDT COMPREHENSIVE METABOLIC PANEL Routine 12/30/2021 5:04 AM CDT POC GLUCOSE Routine 12/30/2021 5:02 AM CDT POC GLUCOSE Routine 12/30/2021 2:49 AM CDT POC GLUCOSE Routine 12/29/2021 11:18 PM CDT POC GLUCOSE Routine 12/29/2021 9:52 PM CDT POC GLUCOSE Routine 12/29/2021 9:01 PM CDT CBC WITH DIFFERENTIAL Routine 12/29/2021 5:54 PM CDT BASIC METABOLIC PANEL Routine 12/29/2021 5:54 PM CDT POC LACTIC ACID Routine 12/29/2021 2:59 PM CDT BLOOD GAS,(INCL. H+H, LYTES, GLUC) Routine 12/29/2021 2:59 PM CDT OXIMETRY Routine 12/29/2021 2:59 PM CDT METHEMOGLOBIN QUANTITATIVE Routine 12/29/2021 2:59 PM CDT CARBOXYHEMOGLOBIN Routine 12/29/2021 2:5 9 PM CDT POC LACTIC ACID Routine 12/29/2021 1:05 PM CDT BLOOD GAS,(INCL. H+H, LYTES, GLUC) Routine 12/29/2021 1:05 PM CDT OXIMETRY Routine 12/29/2021 1:05 PM CDT METHEMOGLOBIN QUANTITATIVE Routine 12/29/2021 1:05 PM CDT CARBOXYHEMOGLOBIN Routine 12/29/2021 1:0 5 PM CDT POC LACTIC ACID Routine 12/29/2021 11:11 AM CDT BLOOD GAS,(INCL. H+H, LYTES, GLUC) Routine 12/29/2021 11:11 AM CDT OXIMETRY Routine 12/29/2021 11:11 AM CDT METHEMOGLOBIN QUANTITATIVE Routine 12/29/2021 11:11 AM CDT CARBOXYHEMOGLOBIN Routine 12/29/2021 11:11 AM CDT PATHOLOGY Pathology 12/29/2021 9:44 AM CDT POC LACTIC ACID Routine 12/29/2021 8:57 AM CDT BLOOD GAS,(INCL. 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 DR CAMERON 8 HRS FOR CASE. PT'S INSURANCE [facility] MEDICARE ADVANTAGE / MEDICAID OF [place]LL. ETELVINA'D PER PATTI Pt. has KIWI allergy- denies Latex allergy. PROC CARD UPDATED PER M,N. NOTIFIED RACHEL / CASE CARTS OF CHANGE. documented in this encounter Results * (ABNORMAL) CBC WITHOUT DIFFERENTIAL (01/08/2022 5:25 AM CDT) Pathologist [facility] WBC 9.8 4.5 - 10.5 K/uL 01/08/2022 6:26 AM CDT [facility] RBC 3.15(L) 3.90 - 4.90 M/uL 01/08/2022 6:26 AM CDT [facility] HEMOGLOBIN 8.5(L) 11.8 - 14.8 g/dL 01/08/2022 6:26 AM CDT [facility] HEMATOCRIT 26.7(L) 35.5 - 44.0 % 01/08/2022 6:26 AM CDT [facility] MCV 84.8 82.0 - 99.0 fL 01/08/2022 6:26 AM CDT [facility] MCH 27.1(L) 27.8 - 34.5 pg 01/08/2022 6:26 AM CDT [facility] MCHC 32.0(L) 32.5 - 35.5 g/dL 01/08/2022 6:26 AM CDT [facility] PLATELETS 451(H) 160 - 420 K/uL 01/08/2022 6:26 AM CDT [facility] MPV 7.7(L) 8.7 - 12.7 fL 01/08/2022 6:26 AM CDT [facility] RDW 17.2(H) 11.5 - 14.5 % 01/08/2022 6:26 AM CDT [facility] Blood Venipuncture / Unknown 01/08/2022 5:25 AM CDT 01/08/2022 6:22 AM CDT Thelma Ken MD HEMATOLOGY ORDER PHILIPP [facility] CLIA# [id number] [place] [address] * (ABNORMAL) BASIC METABOLIC PANEL (01/08/2022 5:25 AM CDT) SODIUM 134(L) 136 - 145 mmol/L 01/08/2022 6:49 AM CDT [facility] POTASSIUM 4.1 3.4 - 5.1 mmol/L 01/08/2022 6:49 AM CDT [facility] CHLORIDE 99 98 - 107 mmol/L 01/08/2022 6:49 AM CDT [facility] CO2 23 22 - 29 mmol/L 01/08/2022 6:49 AM CDT [facility] CALCIUM 8.4(L) 8.6 - 10.4 mg/dL 01/08/2022 6:49 AM CDT [facility] BUN 7 6 - 20 mg/dL 01/08/2022 6:49 AM CDT [facility] CREATININE 0.70 0.51 - 0.95 mg/dL 01/08/2022 6:49 AM CDT [facility] GLUCOSE 81 74 - 99 mg/dL 01/08/2022 6:49 AM CDT [facility] GFR >60 >=60 mL/min/1.7 3 sq meter 01/08/2022 6:49 AM CDT [facility] Comment:eGFR calculated with 2020 CKD-EPI equation. Vegetarian diet, extremely high or low muscle mass, and may affect results. Cystatin C with Glomerular Filtration Rate is a suitable alternative for these patients. ANION GAP 12 8 - 16 mmol/L 01/08/2022 6:49 AM CDT [facility] Blood Venipuncture / Unknown 01/08/2022 5:25 AM CDT 01/08/2022 6:21 AM CDT Thelma Ken MD CHEMISTRY ORDERA BLES [facility] CLIA# [id number] [place] [address] * (ABNORMAL) CBC WITHOUT DIFFERENTIAL (01/07/2022 5:37 AM CDT) WBC 10.7(H) 4.5 - 10.5 K/uL 01/07/2022 6:10 AM CDT [facility] RBC 2.81(L) 3.90 - 4.90 M/uL 01/07/2022 6:10 AM T [facility] HEMOGLOBIN 8.0(L) 11.8 - 14.8 g/dL 01/07/2022 6:10 AM T [facility] HEMATOCRIT 23.2(L) 35.5 - 44.0 % 01/07/2022 6:10 AM CDT [facility] MCV 82.5 82.0 - 99.0 fL 01/07/2022 6:10 AM CDT [facility] MCH 28.3 27.8 - 34.5 pg 01/07/2022 6:10 AM CDT [facility] MCHC 34.4 32.5 - 35.5 g/dL 01/07/2022 6:10 AM CDT [facility] PLATELETS 385 160 - 420 K/uL 01/07/2022 6:10 AM CDT [facility] MPV 7.3(L) 8.7 - 12.7 fL 01/07/2022 6:10 AM CDT [facility] RDW 17.2(H) 11.5 - 14.5 % 01/07/2022 6:10 AM CDT [facility] Blood Collection / Unknown 01/07/2022 5:37 AM CDT 01/07/2022 6:01 AM CDT Thelma Ken MD HEMATOLOGY ORDER PHILIPP [facility] CLIA# [id number] [place] [address] * (ABNORMAL) BASIC METABOLIC PANEL (01/07/2022 5:37 AM CDT) SODIUM 135(L) 136 - 145 mmol/L 01/07/2022 6:33 AM CDT [facility] POTASSIUM 3.4 3.4 - 5.1 mmol/L 01/07/2022 6:33 AM T [facility] CHLORIDE 99 98 - 107 mmol/L 01/07/2022 6:33 AM T [facility] CO2 25 22 - 29 mmol/L 01/07/2022 6:33 AM T [facility] CALCIUM 8.2(L) 8.6 - 10.4 mg/dL 01/07/2022 6:33 AM T [facility] BUN 9 6 - 20 mg/dL 01/07/2022 6:33 AM T [facility] CREATININE 0.66 0.51 - 0.95 mg/dL 01/07/2022 6:33 AM T [facility] GLUCOSE 102(H) 74 - 99 mg/dL 01/07/2022 6:33 AM T [facility] GFR >60 >=60 mL/min/1.7 3 sq meter 01/07/2022 6:33 AM [facility] Comment:eGFR calculated with 2020 CKD-EPI equation. Vegetarian diet, extremely high or low muscle mass, and may affect results. Cystatin C with Glomerular Filtration Rate is a suitable alternative for these patients. ANION GAP 11 8 - 16 mmol/L 01/07/2022 6:33 AM T [facility] Blood Collection / Unknown 01/07/2022 5:37 AM CDT 01/07/2022 6:01 AM CDT Thelma Ken MD CHEMISTRY ORDERA BLES [facility] CLIA# [id number] [place] [address] * (ABNORMAL) BASIC METABOLIC PANEL (01/06/2022 9:45 AM CDT) SODIUM 140 136 - 145 mmol/L 01/06/2022 12:01 PM [facility] POTASSIUM 3.3(L) 3.4 - 5.1 mmol/L 01/06/2022 12:01 PM [facility] CHLORIDE 102 98 - 107 mmol/L 01/06/2022 12:01 PM [facility] CO2 24 22 - 29 mmol/L 01/06/2022 12:01 PM [facility] CALCIUM 8.6 8.6 - 10.4 mg/dL 01/06/2022 12:01 PM [facility] BUN 13 6 - 20 mg/dL 01/06/2022 12:01 PM [facility] CREATININE 0.63 0.51 - 0.95 mg/dL 01/06/2022 12:01 PM [facility] GLUCOSE 103(H) 74 - 99 mg/dL 01/06/2022 12:01 PM [facility] GFR >60 >=60 mL/min/1.7 3 sq meter 01/06/2022 12:01 PM [facility] Comment:eGFR calculated with 2020 CKD-EPI equation. Vegetarian diet, extremely high or low muscle mass, and may affect results. Cystatin C with Glomerular Filtration Rate is a suitable alternative for these patients. ANION GAP 14 8 - 16 mmol/L 01/06/2022 12:01 PM CDT [facility] Blood Venipuncture / Unknown 01/06/2022 9:45 AM CDT 01/06/2022 11:22 AM CDT Thelma Ken MD CHEMISTRY ORDERA BLES [facility] CLIA# [id number] [place] [address] * (ABNORMAL) CBC WITHOUT DIFFERENTIAL (01/06/2022 9:45 AM CDT) WBC 11.7(H) 4.5 - 10.5 K/uL 01/06/2022 11:15 AM CDT [facility] RBC 3.24(L) 3.90 - 4.90 M/uL 01/06/2022 11:15 AM T [facility] HEMOGLOBIN 8.9(L) 11.8 - 14.8 g/dL 01/06/2022 11:15 AM T [facility] HEMATOCRIT 27.2(L) 35.5 - 44.0 % 01/06/2022 11:15 AM CDT [facility] MCV 84.0 82.0 - 99.0 fL 01/06/2022 11:15 AM CDT [facility] MCH 27.4(L) 27.8 - 34.5 pg 01/06/2022 11:15 AM CDT [facility] MCHC 32.6 32.5 - 35.5 g/dL 01/06/2022 11:15 AM T [facility] PLATELETS 421(H) 160 - 420 K/uL 01/06/2022 11:15 AM CDT [facility] MPV 7.6(L) 8.7 - 12.7 fL 01/06/2022 11:15 AM CDT [facility] RDW 16.9(H) 11.5 - 14.5 % 01/06/2022 11:15 AM CDT [facility] Blood Venipuncture / Unknown 01/06/2022 9:45 AM CDT 01/06/2022 11:14 AM CDT Thelma Ken MD HEMATOLOGY ORDER PHILIPP [facility] CLIA# [id number] [place] [address] * (ABNORMAL) BASIC METABOLIC PANEL (01/05/2022 4:55 AM CDT) SODIUM 139 136 - 145 mmol/L 01/05/2022 6:16 AM T [facility] POTASSIUM 2.9(L) 3.4 - 5.1 mmol/L 01/05/2022 6:16 AM T [facility] CHLORIDE 100 98 - 107 mmol/L 01/05/2022 6:16 AM T [facility] CO2 24 22 - 29 mmol/L 01/05/2022 6:16 AM T [facility] CALCIUM 8.7 8.6 - 10.4 mg/dL 01/05/2022 6:16 AM T [facility] BUN 12 6 - 20 mg/dL 01/05/2022 6:16 AM T [facility] CREATININE 0.67 0.51 - 0.95 mg/dL 01/05/2022 6:16 AM T [facility] GLUCOSE 108(H) 74 - 99 mg/dL 01/05/2022 6:16 AM T [facility] GFR >60 >=60 mL/min/1.7 3 sq meter 01/05/2022 6:16 AM T [facility] Comment:eGFR calculated with 2020 CKD-EPI equation. Vegetarian diet, extremely high or low muscle mass, and may affect results. Cystatin C with Glomerular Filtration Rate is a suitable alternative for these patients. ANION GAP 15 8 - 16 mmol/L 01/05/2022 6:16 AM CDT [facility] Blood Venipuncture / Unknown 01/05/2022 4:55 AM CDT 01/05/2022 5:36 AM CDT Thelma Ken MD CHEMISTRY ORDERA BLES [facility] CLIA# [id number] [place] [address] * (ABNORMAL) CBC WITHOUT DIFFERENTIAL (01/05/2022 4:54 AM CDT) WBC 8.9 4.5 - 10.5 K/uL 01/05/2022 5:45 AM CDT [facility] RBC 3.54(L) 3.90 - 4.90 M/uL 01/05/2022 5:45 AM T [facility] HEMOGLOBIN 9.6(L) 11.8 - 14.8 g/dL 01/05/2022 5:45 AM T [facility] HEMATOCRIT 29.7(L) 35.5 - 44.0 % 01/05/2022 5:45 AM CDT [facility] MCV 84.0 82.0 - 99.0 fL 01/05/2022 5:45 AM CDT [facility] MCH 27.1(L) 27.8 - 34.5 pg 01/05/2022 5:45 AM CDT [facility] MCHC 32.2(L) 32.5 - 35.5 g/dL 01/05/2022 5:45 AM CDT [facility] PLATELETS 376 160 - 420 K/uL 01/05/2022 5:45 AM CDT [facility] MPV 7.8(L) 8.7 - 12.7 fL 01/05/2022 5:45 AM CDT [facility] - [facility] RDW 17.2(H) 11.5 - 14.5 % 01/05/2022 5:45 AM CDT [facility] Blood Venipuncture / Unknown 01/05/2022 4:54 AM CDT 01/05/2022 5:41 AM CDT Thelma Ken MD HEMATOLOGY ORDER PHILIPP [facility] CLIA# [id number] [place] [address] * (ABNORMAL) POC GLUCOSE (01/05/2022 4:07 AM CDT) GLUCOSE POC 104(H) 74 - 99 mg/dL 01/05/2022 4:07 AM CDT [facility] POINT OF CARE Blood, whole 01/05/2022 4:07 AM CDT 01/05/2022 4:12 AM CDT Thelma Ken MD POINT OF CARE TE STING Performing Organization Address [facility] Co de Phone Number [facility] POINT OF CARE CLIA # [id number] [place] [address] * (ABNORMAL) POC GLUCOSE (01/04/2022 11:46 PM CDT) GLUCOSE POC 124(H) 74 - 99 mg/dL 01/04/2022 11:46 PM CDT [facility] POINT OF CARE Blood, whole 01/04/2022 11:4 6 PM CDT 01/04/2022 11:48 PM CDT Thelma Ken MD POINT OF CARE TE STING Performing Organization Address City/[facility]/ZIP Co de Phone Number [facility] POINT OF CARE CLIA # [id number] [place] [address] * (ABNORMAL) POC GLUCOSE (01/04/2022 9:43 PM CDT) GLUCOSE POC 73(L) 74 - 99 mg/dL 01/04/2022 9:43 PM CDT [facility] POINT OF CARE Blood, whole 01/04/2022 9:43 PM CDT 01/04/2022 9:45 PM CDT Thelma Ken MD POINT OF CARE TE STING Performing Organization Address City/[facility]/ZIP Co de Phone Number [facility] POINT OF CARE CLIA # [id number] [place], [place] [id number] * (ABNORMAL) POC GLUCOSE (01/04/2022 6:50 PM CDT) GLUCOSE POC 105(H) 74 - 99 mg/dL 01/04/2022 6:50 PM CDT [facility] POINT OF CARE Blood, whole 01/04/2022 6:50 PM CDT 01/04/2022 6:51 PM CDT Thelma Ken MD POINT OF CARE TE STING Performing Organization Address [facility]/ZIP Co de Phone Number [facility] POINT OF CARE CLIA # [id number] [place] [address] * (ABNORMAL) POC GLUCOSE (01/04/2022 12:26 PM CDT) GLUCOSE POC 118(H) 74 - 99 mg/dL 01/04/2022 12:26 PM CDT [facility] POINT OF CARE Blood, whole 01/04/2022 12:2 6 PM CDT 01/04/2022 12:39 PM CDT Thelma Ken MD POINT OF CARE TE STING Performing Organization Address City/[facility]/ZIP Co de Phone Number [facility] POINT OF CARE CLIA # [id number] [place], [place] [id number] * (ABNORMAL) BASIC METABOLIC PANEL (01/04/2022 6:05 AM CDT) SODIUM 145 136 - 145 mmol/L 01/04/2022 6:58 AM CDT [facility] POTASSIUM 2.7(L) 3.4 - 5.1 mmol/L 01/04/2022 6:58 AM CDT [facility] CHLORIDE 106 98 - 107 mmol/L 01/04/2022 6:58 AM CDT [facility] CO2 27 22 - 29 mmol/L 01/04/2022 6:58 AM CDT [facility] CALCIUM 9.1 8.6 - 10.4 mg/dL 01/04/2022 6:58 AM CDT [facility] BUN 17 6 - 20 mg/dL 01/04/2022 6:58 AM T [facility] CREATININE 0.72 0.51 - 0.95 mg/dL 01/04/2022 6:58 AM CDT [facility] GLUCOSE 138(H) 74 - 99 mg/dL 01/04/2022 6:58 AM T [facility] GFR >60 >=60 mL/min/1.7 3 sq meter 01/04/2022 6:58 AM T [facility] Comment:eGFR calculated with 2020 CKD-EPI equation. Vegetarian diet, extremely high or low muscle mass, and may affect results. Cystatin C with Glomerular Filtration Rate is a suitable alternative for these patients. ANION GAP 12 8 - 16 mmol/L 01/04/2022 6:58 AM CDT [facility] Blood Venipuncture / Unknown 01/04/2022 6:05 AM CDT 01/04/2022 6:20 AM CDT Thelma Ken MD CHEMISTRY ORDERA BLES [facility] CLIA# [id number] [place] [address] * (ABNORMAL) CBC WITHOUT DIFFERENTIAL (01/04/2022 6:05 AM CDT) WBC 8.7 4.5 - 10.5 K/uL 01/04/2022 6:29 AM CDT [facility] RBC 3.16(L) 3.90 - 4.90 M/uL 01/04/2022 6:29 AM CDT [facility] HEMOGLOBIN 8.8(L) 11.8 - 14.8 g/dL 01/04/2022 6:29 AM CDT [facility] HEMATOCRIT 26.4(L) 35.5 - 44.0 % 01/04/2022 6:29 AM CDT [facility] MCV 83.6 82.0 - 99.0 fL 01/04/2022 6:29 AM CDT [facility] MCH 27.7(L) 27.8 - 34.5 pg 01/04/2022 6:29 AM CDT [facility] MCHC 33.2 32.5 - 35.5 g/dL 01/04/2022 6:29 AM CDT [facility] PLATELETS 334 160 - 420 K/uL 01/04/2022 6:29 AM CDT [facility] MPV 7.2(L) 8.7 - 12.7 fL 01/04/2022 6:29 AM CDT [facility] RDW 17.3(H) 11.5 - 14.5 % 01/04/2022 6:29 AM CDT [facility] Blood Venipuncture / Unknown 01/04/2022 6:05 AM CDT 01/04/2022 6:23 AM CDT Thelma Ken MD HEMATOLOGY ORDER PHILIPP [facility] CLIA# [id number] [place] [address] * (ABNORMAL) POC GLUCOSE (01/04/2022 4:01 AM CDT) GLUCOSE POC 117(H) 74 - 99 mg/dL 01/04/2022 4:01 AM CDT [facility] POINT OF CARE Blood, whole 01/04/2022 4:01 AM CDT 01/04/2022 4:07 AM CDT Thelma Ken MD POINT OF CARE TE STING Performing Organization Address City/[facility]/ZIP Co de Phone Number [facility] POINT OF CARE CLIA # [id number] [place] [address] * (ABNORMAL) POC GLUCOSE (01/03/2022 11:44 PM CDT) GLUCOSE POC 102(H) 74 - 99 mg/dL 01/03/2022 11:44 PM CDT [facility] POINT OF CARE Blood, whole 01/03/2022 11:4 4 PM CDT 01/03/2022 11:46 PM CDT Thelma Ken MD POINT OF CARE TE STING Performing Organization Address [facility]/ZIP Co de Phone Number [facility] POINT OF CARE CLIA # [id number] [place] [address] * (ABNORMAL) POC GLUCOSE (01/03/2022 9:14 PM CDT) GLUCOSE POC 102(H) 74 - 99 mg/dL 01/03/2022 9:14 PM CDT [facility] POINT OF CARE Blood, whole 01/03/2022 9:14 PM CDT 01/03/2022 9:15 PM CDT Thelma Ken MD POINT OF CARE TE STING Performing Organization Address City/[facility]/ZIP Co de Phone Number [facility] POINT OF CARE CLIA # [id number] [place] [address] * POC GLUCOSE (01/03/2022 4:42 PM CDT) GLUCOSE POC 91 74 - 99 mg/dL 01/03/2022 4:42 PM CDT [facility] POINT OF CARE Blood, whole 01/03/2022 4:42 PM CDT 01/03/2022 4:46 PM CDT Thelma Ken MD POINT OF CARE TE STING [facility] POINT OF CARE CLIA # [id number] [place] [address] * XR UPR GI WATER MARÍA CONTRAST (01/03/2022 11:01 AM CDT) Anatomical Region Laterality Modality Abdomen Computed Radiogr aphy 01/03/2022 11:0 7 AM CDT Impressions 01/03/2022 2:32 PM CDT IMPRESSION: 1. Gastroesophageal narrowing probably due to spasm. This results in reflux of administered contrast from the distal esophagus to the hypopharynx and aspiration to the right mainstem bronchus. 2. When contrast does pass into the stomach, there is good filling of the stomach and duodenal C-loop without evidence of extravasation. DICTATION LOCATION: Location 7 - [facility] Narrative 01/03/2022 2:32 PM CDT WATER-SOLUBLE UPPER GI DATE: ??01/03/2022 11:01 AM HISTORY: Other - Please see comments, Comment: ??29.00 mGy. ?? Malignant neoplasm of ampulla of Vater; Pancreatic cyst ?? COMPARISON: None TECHNIQUE: Patient was administered water-soluble contrast with fluoroscopic spot radiographs obtained during swallowing and passage of contrast through the stomach and duodenum. Fluoroscopy time: 1.6 minutes. Dose: 29 mGy. Number of images: 16. FINDINGS: These images show gastroesophageal spasm. The full column of contrast in the esophagus results in aspiration of contrast into the right lower lobe bronchus. Eventually, the esophageal spasm relaxes and contrast passes into the stomach. There is no evidence of extravasation from the stomach or duodenum. There is a nasogastric tube in the stomach. Procedure Note Rovreto Vázquez MD - 01/03/2022 WATER-SOLUBLE UPPER GI DATE: 01/03/2022 11:01 AM HISTORY: Other - Please see comments, Comment: 29.00 mGy. Malignant neoplasm of ampulla of Vater; Pancreatic cyst COMPARISON: None TECHNIQUE: Patient was administered water-soluble contrast with fluoroscopic spot radiographs obtained during swallowing and passage of contrast through the stomach and duodenum. Fluoroscopy time: 1.6 minutes. Dose: 29 mGy. Number of images: 16. FINDINGS: These images show gastroesophageal spasm. The full column of contrast in the esophagus results in aspiration of contrast into the right lower lobe bronchus. Eventually, the esophageal spasm relaxes and contrast passes into the stomach. There is no evidence of extravasation from the stomach or duodenum. There is a nasogastric tube in the stomach. IMPRESSION: 1. Gastroesophageal narrowing probably due to spasm. This results in reflux of administered contrast from the distal esophagus to the hypopharynx and aspiration to the right mainstem bronchus. 2. When contrast does pass into the stomach, there is good filling of the stomach and duodenal C-loop without evidence of extravasation. DICTATION LOCATION: Location [address] [place] [address] Thelma Ken MD DIAGNOSTIC IMAGI NG ORDERABLES * (ABNORMAL) POC GLUCOSE (01/03/2022 7:48 AM CDT) [facility] GLUCOSE POC 118(H) 74 - 99 mg/dL 01/03/2022 7:48 AM CDT [facility] POINT OF CARE Blood, whole 01/03/2022 7:48 AM CDT 01/03/2022 7:54 AM CDT Thelma Ken MD POINT OF CARE TE STING [facility] POINT OF CARE CLIA # [id number] [place] [address] * (ABNORMAL) COMPREHENSIVE METABOLIC PANEL (01/03/2022 4:14 AM CDT) [facility] SODIUM 149(H) 136 - 145 mmol/L 01/03/2022 4:53 AM CDT [facility] LAB[facility]ATORY SERVICES - [facility] POTASSIUM 3.6 3.4 - 5.1 mmol/L 01/03/2022 4:53 AM [facility] CHLORIDE 111(H) 98 - 107 mmol/L 01/03/2022 4:53 AM [facility] CO2 29 22 - 29 mmol/L 01/03/2022 4:53 AM [facility] CALCIUM 8.9 8.6 - 10.4 mg/dL 01/03/2022 4:53 AM [facility] BUN 12 6 - 20 mg/dL 01/03/2022 4:53 AM [facility] CREATININE 0.60 0.51 - 0.95 mg/dL 01/03/2022 4:53 AM [facility] GLUCOSE 128(H) 74 - 99 mg/dL 01/03/2022 4:53 AM [facility] TOTAL PROTEIN 6.3 6.3 - 8.7 g/dL 01/03/2022 4:53 AM [facility] ALBUMIN 2.9(L) 3.5 - 5.2 g/dL 01/03/2022 4:53 AM [facility] BILIRUBIN TOTAL 0.2 0.2 - 1.1 mg/dL 01/03/2022 4:53 AM [facility] ALKALINE PHOSPHATASE 79 40 - 150 U/L 01/03/2022 4:53 AM [facility] AST 10 0 - 33 U/L 01/03/2022 4:53 AM [facility] ALT 15 0 - 33 U/L 01/03/2022 4:53 AM [facility] GFR >60 >=60 mL/min/1.7 3 sq meter 01/03/2022 4:53 AM [facility] Comment:eGFR calculated with 2020 CKD-EPI equation. Vegetarian diet, extremely high or low muscle mass, and may affect results. Cystatin C with Glomerular Filtration Rate is a suitable alternative for these patients. ANION GAP 9 8 - 16 mmol/L 01/03/2022 4:53 AM CDT [facility] Blood Venipuncture / Unknown 01/03/2022 4:14 AM CDT 01/03/2022 4:20 AM CDT Thelma Ken MD CHEMISTRY ORDERA BLES [facility] CLIA# [id number] [place] [address] * (ABNORMAL) CBC WITHOUT DIFFERENTIAL (01/03/2022 4:14 AM CDT) WBC 8.3 4.5 - 10.5 K/uL 01/03/2022 4:24 AM CDT [facility] RBC 2.98(L) 3.90 - 4.90 M/uL 01/03/2022 4:24 AM CDT [facility] HEMOGLOBIN 8.2(L) 11.8 - 14.8 g/dL 01/03/2022 4:24 AM CDT [facility] HEMATOCRIT 25.4(L) 35.5 - 44.0 % 01/03/2022 4:24 AM CDT [facility] MCV 85.2 82.0 - 99.0 fL 01/03/2022 4:24 AM CDT [facility] MCH 27.4(L) 27.8 - 34.5 pg 01/03/2022 4:24 AM CDT [facility] MCHC 32.1(L) 32.5 - 35.5 g/dL 01/03/2022 4:24 AM CDT [facility] PLATELETS 276 160 - 420 K/uL 01/03/2022 4:24 AM CDT [facility] MPV 6.8(L) 8.7 - 12.7 fL 01/03/2022 4:24 AM CDT [facility] RDW 17.2(H) 11.5 - 14.5 % 01/03/2022 4:24 AM CDT [facility] Blood Venipuncture / Unknown 01/03/2022 4:14 AM CDT 01/03/2022 4:20 AM CDT Thelma Ken MD HEMATOLOGY ORDER PHILIPP [facility] CLIA# [id number] [place] [address] * (ABNORMAL) POC GLUCOSE (01/03/2022 3:49 AM CDT) GLUCOSE POC 135(H) 74 - 99 mg/dL 01/03/2022 3:49 AM CDT [facility] POINT OF CARE Blood, whole 01/03/2022 3:49 AM CDT 01/03/2022 3:51 AM CDT Thelma Ken MD POINT OF CARE TE STING Performing Organization Address City/[facility]/ZIP Co de Phone Number [facility] POINT OF CARE CLIA # [id number] [place] [address] * (ABNORMAL) POC GLUCOSE (01/03/2022 12:32 AM CDT) GLUCOSE POC 126(H) 74 - 99 mg/dL 01/03/2022 12:32 AM CDT [facility] POINT OF CARE Blood, whole 01/03/2022 12:3 2 AM CDT 01/03/2022 12:34 AM CDT Thelma Ken MD POINT OF CARE TE STING Performing Organization Address City/[facility]/ZIP Co de Phone Number [facility] POINT OF CARE CLIA # [id number] [place] [address] * (ABNORMAL) POC GLUCOSE (01/02/2022 9:38 PM CDT) GLUCOSE POC 125(H) 74 - 99 mg/dL 01/02/2022 9:38 PM CDT [facility] POINT OF CARE Blood, whole 01/02/2022 9:38 PM CDT 01/02/2022 9:40 PM CDT Thelma Ken MD POINT OF CARE TE STING Performing Organization Address [facility]/ZIP Co de Phone Number [facility] POINT OF CARE CLIA # [id number] [place] [address] * (ABNORMAL) POC GLUCOSE (01/02/2022 3:05 PM CDT) GLUCOSE POC 131(H) 74 - 99 mg/dL 01/02/2022 3:05 PM CDT [facility] POINT OF CARE Blood, whole 01/02/2022 3:05 PM CDT 01/02/2022 3:06 PM CDT Thelma Ken MD POINT OF CARE TE STING Performing Organization Address [facility] Co de Phone Number [facility] POINT OF CARE CLIA # [id number] [place] [address] * (ABNORMAL) POC GLUCOSE (01/02/2022 11:58 AM CDT) GLUCOSE POC 143(H) 74 - 99 mg/dL 01/02/2022 11:58 AM CDT [facility] POINT OF CARE Blood, whole 01/02/2022 11:5 8 AM CDT 01/02/2022 12:00 PM CDT Thelma Ken MD POINT OF CARE TE STING Performing Organization Address [facility] Co de Phone Number [facility] POINT OF CARE CLIA # [id number] [place] [address] * (ABNORMAL) POC GLUCOSE (01/02/2022 8:10 AM CDT) GLUCOSE POC 160(H) 74 - 99 mg/dL 01/02/2022 8:10 AM [facility] POINT OF CARE Blood, whole 01/02/2022 8:10 AM CDT 01/02/2022 8:14 AM CDT Thelma Ken MD POINT OF CARE TE STING [facility] POINT OF CARE CLIA # [id number] [place] [address] * (ABNORMAL) COMPREHENSIVE METABOLIC PANEL (01/02/2022 6:31 AM CDT) SODIUM 149(H) 136 - 145 mmol/L 01/02/2022 7:41 AM T [facility] LABORATORY SERVICES - [facility] POTASSIUM 3.7 3.4 - 5.1 mmol/L 01/02/2022 7:41 AM [facility] LABORATORY [facility] - [facility] CHLORIDE 109(H) 98 - 107 mmol/L 01/02/2022 7:41 AM T [facility] LABORATORY SERVICES - [facility] CO2 29 22 - 29 mmol/L 01/02/2022 7:41 AM T [facility] LABORATORY SERVICES - [facility] CALCIUM 8.9 8.6 - 10.4 mg/dL 01/02/2022 7:41 AM [facility] LABORATORY SERVICES - [facility] BUN 11 6 - 20 mg/dL 01/02/2022 7:41 AM [facility]AT[facility] CREATININE 0.65 0.51 - 0.95 mg/dL 01/02/2022 7:41 AM T [facility] LABORATORY SERVICES - [facility] GLUCOSE 148(H) 74 - 99 mg/dL 01/02/2022 7:41 AM [facility]ORATORY [facility] TOTAL PROTEIN 6.1(L) 6.3 - 8.7 g/dL 01/02/2022 7:41 AM T [facility] LABORATORY [facility] - [facility] ALBUMIN 3.1(L) 3.5 - 5.2 g/dL 01/02/2022 7:41 AM T [facility] LABORATORY [facility] - [facility] BILIRUBIN TOTAL 0.4 0.2 - 1.1 mg/dL 01/02/2022 7:41 AM [facility] ALKALINE PHOSPHATASE 79 40 - 150 U/L 01/02/2022 7:41 AM T [facility] AST 13 0 - 33 U/L 01/02/2022 7:41 AM T [facility] ALT 18 0 - 33 U/L 01/02/2022 7:41 AM T [facility] GFR >60 >=60 mL/min/1.7 3 sq meter 01/02/2022 7:41 AM T [facility] Comment:eGFR calculated with 2020 CKD-EPI equation. Vegetarian diet, extremely high or low muscle mass, and may affect results. Cystatin C with Glomerular Filtration Rate is a suitable alternative for these patients. ANION GAP 11 8 - 16 mmol/L 01/02/2022 7:41 AM T [facility] Blood Venipuncture / Unknown 01/02/2022 6:31 AM CDT 01/02/2022 7:09 AM CDT Thelma Ken MD CHEMISTRY ORDERA BLES [facility] CLIA# [id number] [place] [address] * (ABNORMAL) CBC WITHOUT DIFFERENTIAL (01/02/2022 6:31 AM CDT) WBC 10.7(H) 4.5 - 10.5 K/uL 01/02/2022 7:20 AM T [facility] RBC 2.99(L) 3.90 - 4.90 M/uL 01/02/2022 7:20 AM T [facility] HEMOGLOBIN 8.3(L) 11.8 - 14.8 g/dL 01/02/2022 7:20 AM T [facility] HEMATOCRIT 25.4(L) 35.5 - 44.0 % 01/02/2022 7:20 AM T [facility] MCV 84.9 82.0 - 99.0 fL 01/02/2022 7:20 AM CDT [facility] LABORATORY [facility] MCH 27.8 27.8 - 34.5 pg 01/02/2022 7:20 AM CDT [facility] LABORATORY [facility] MCHC 32.8 32.5 - 35.5 g/dL 01/02/2022 7:20 AM CDT [facility] LABORATORY [facility] PLATELETS 267 160 - 420 K/uL 01/02/2022 7:20 AM CDT [facility] LABORATORY [facility] MPV 7.5(L) 8.7 - 12.7 fL 01/02/2022 7:20 AM CDT [facility] LABORATORY [facility] RDW 16.4(H) 11.5 - 14.5 % 01/02/2022 7:20 AM CDT [facility] LABORATORY [facility] Blood Venipuncture / Unknown 01/02/2022 6:31 AM CDT 01/02/2022 7:13 AM CDT Thelma Ken MD HEMATOLOGY ORDER PHILIPP [facility] CLIA# [id number] [place] [address] * (ABNORMAL) POC GLUCOSE (01/02/2022 4:11 AM CDT) GLUCOSE POC 157(H) 74 - 99 mg/dL 01/02/2022 4:11 AM CDT [facility] POINT OF CARE Blood, whole 01/02/2022 4:11 AM CDT 01/02/2022 4:17 AM CDT Thelma Ken MD POINT OF CARE TE STING [facility] POINT OF CARE CLIA # [id number] [place] [address] * (ABNORMAL) POC GLUCOSE (01/02/2022 12:17 AM CDT) GLUCOSE POC 125(H) 74 - 99 mg/dL 01/02/2022 12:17 AM CDT [facility] POINT OF CARE Blood, whole 01/02/2022 12:1 7 AM CDT 01/02/2022 12:22 AM CDT Thelma Ken MD POINT OF CARE TE STING Performing Organization Address City/[facility]/ZIP Co de Phone Number [facility] POINT OF CARE CLIA # [id number] [place] [address] * (ABNORMAL) POC GLUCOSE (01/01/2022 8:04 PM CDT) GLUCOSE POC 132(H) 74 - 99 mg/dL 01/01/2022 8:04 PM CDT [facility] POINT OF CARE Blood, whole 01/01/2022 8:04 PM CDT 01/01/2022 8:07 PM CDT Thelma Ken MD POINT OF CARE TE STING Performing Organization Address [facility]/ZIP Co de Phone Number [facility] POINT OF CARE CLIA # [id number] [place] [address] * (ABNORMAL) POC GLUCOSE (01/01/2022 6:01 PM CDT) GLUCOSE POC 131(H) 74 - 99 mg/dL 01/01/2022 6:01 PM CDT [facility] POINT OF CARE Blood, whole 01/01/2022 6:01 PM CDT 01/01/2022 6:02 PM CDT Thelma Ken MD POINT OF CARE TE STING Performing Organization Address City/[facility]/ZIP Co de Phone Number [facility] POINT OF CARE CLIA # [id number] [place] [address] * (ABNORMAL) POC GLUCOSE (01/01/2022 12:28 PM CDT) GLUCOSE POC 119(H) 74 - 99 mg/dL 01/01/2022 12:28 PM CDT [facility] POINT OF CARE Blood, whole 01/01/2022 12:2 8 PM CDT 01/01/2022 12:32 PM CDT Thelma Ken MD POINT OF CARE TE STING Performing Organization Address City/[facility]/ZIP Co de Phone Number [facility] POINT OF CARE CLIA # [id number] [place] [address] * (ABNORMAL) POC GLUCOSE (01/01/2022 10:31 AM CDT) GLUCOSE POC 137(H) 74 - 99 mg/dL 01/01/2022 10:31 AM CDT [facility] POINT OF CARE Blood, whole 01/01/2022 10:3 1 AM CDT 01/01/2022 10:31 AM CDT Thelma Ken MD POINT OF CARE TE STING Performing Organization Address [facility]/ZIP Co de Phone Number [facility] POINT OF CARE CLIA # [id number] [place] [address] * (ABNORMAL) COMPREHENSIVE METABOLIC PANEL (01/01/2022 4:18 AM CDT) SODIUM 145 136 - 145 mmol/L 01/01/2022 4:53 AM CDT [facility] [facility] LABORATORY SERVICES - [facility] POTASSIUM 3.9 3.4 - 5.1 mmol/L 01/01/2022 4:53 AM CDT [employer] LABORATORY SERVICES - [facility] CHLORIDE 109(H) 98 - 107 mmol/L 01/01/2022 4:53 AM CDT [employer] LABORATORY SERVICES - [facility] CO2 28 22 - 29 mmol/L 01/01/2022 4:53 AM CDT [employer] LABORATORY SERVICES - [facility] CALCIUM 9.2 8.6 - 10.4 mg/dL 01/01/2022 4:53 AM CDT [employer] LABORATORY SERVICES - [facility] BUN 13 6 - 20 mg/dL 01/01/2022 4:53 AM CDT [facility] CREATININE 0.63 0.51 - 0.95 mg/dL 01/01/2022 4:53 AM T [facility] GLUCOSE 145(H) 74 - 99 mg/dL 01/01/2022 4:53 AM CDT [facility] TOTAL PROTEIN 6.3 6.3 - 8.7 g/dL 01/01/2022 4:53 AM T [facility] ALBUMIN 3.3(L) 3.5 - 5.2 g/dL 01/01/2022 4:53 AM CDT [facility] BILIRUBIN TOTAL 0.3 0.2 - 1.1 mg/dL 01/01/2022 4:53 AM T [facility] ALKALINE PHOSPHATASE 75 40 - 150 U/L 01/01/2022 4:53 AM T [facility] AST 21 0 - 33 U/L 01/01/2022 4:53 AM T [facility] ALT 28 0 - 33 U/L 01/01/2022 4:53 AM T [facility] GFR >60 >=60 mL/min/1.7 3 sq meter 01/01/2022 4:53 AM T [facility] Comment:eGFR calculated with 2020 CKD-EPI equation. Vegetarian diet, extremely high or low muscle mass, and may affect results. Cystatin C with Glomerular Filtration Rate is a suitable alternative for these patients. ANION GAP 8 8 - 16 mmol/L 01/01/2022 4:53 AM CDT [facility] Blood Venipuncture / Unknown 01/01/2022 4:18 AM CDT 01/01/2022 4:24 AM CDT Thelma Ken MD CHEMISTRY ORDERA BLES [facility] CLIA# [id number] [place] [address] * (ABNORMAL) CBC WITHOUT DIFFERENTIAL (01/01/2022 4:18 AM CDT) WBC 10.1 4.5 - 10.5 K/uL 01/01/2022 4:24 AM CDT [facility] RBC 3.12(L) 3.90 - 4.90 M/uL 01/01/2022 4:24 AM CDT [facility] HEMOGLOBIN 8.5(L) 11.8 - 14.8 g/dL 01/01/2022 4:24 AM CDT [facility] HEMATOCRIT 26.6(L) 35.5 - 44.0 % 01/01/2022 4:24 AM CDT [facility] MCV 85.2 82.0 - 99.0 fL 01/01/2022 4:24 AM CDT [facility] MCH 27.4(L) 27.8 - 34.5 pg 01/01/2022 4:24 AM CDT [facility] MCHC 32.2(L) 32.5 - 35.5 g/dL 01/01/2022 4:24 AM CDT [facility] PLATELETS 227 160 - 420 K/uL 01/01/2022 4:24 AM CDT [facility] MPV 6.8(L) 8.7 - 12.7 fL 01/01/2022 4:24 AM CDT [facility] RDW 16.5(H) 11.5 - 14.5 % 01/01/2022 4:24 AM CDT [facility] Blood Venipuncture / Unknown 01/01/2022 4:18 AM CDT 01/01/2022 4:23 AM CDT Thelma Ken MD HEMATOLOGY ORDER PHILIPP [facility] CLIA# [id number] [place] [address] * (ABNORMAL) POC GLUCOSE (01/01/2022 4:07 AM CDT) GLUCOSE POC 140(H) 74 - 99 mg/dL 01/01/2022 4:07 AM CDT [facility] POINT OF CARE Blood, whole 01/01/2022 4:07 AM CDT 01/01/2022 4:08 AM CDT Thelma Ken MD POINT OF CARE TE STING Performing Organization Address City/[facility]/ZIP Co de Phone Number [facility] POINT OF CARE CLIA # [id number] [place] [address] * (ABNORMAL) POC GLUCOSE (12/31/2021 11:44 PM CDT) GLUCOSE POC 133(H) 74 - 99 mg/dL 12/31/2021 11:44 PM CDT [facility] POINT OF CARE Blood, whole 12/31/2021 11:4 4 PM CDT 12/31/2021 11:44 PM CDT Thelma Ken MD POINT OF CARE TE STING Performing Organization Address [facility] Co de Phone Number [facility] POINT OF CARE CLIA # [id number] [place] [address] * (ABNORMAL) POC GLUCOSE (12/31/2021 8:27 PM CDT) GLUCOSE POC 142(H) 74 - 99 mg/dL 12/31/2021 8:27 PM CDT [facility] POINT OF CARE Blood, whole 12/31/2021 8:27 PM CDT 12/31/2021 8:29 PM CDT Thelma Ken MD POINT OF CARE TE STING Performing Organization Address City/[facility]/ZIP Co de Phone Number [facility] POINT OF CARE CLIA # [id number] [place] [address] * (ABNORMAL) POC GLUCOSE (12/31/2021 3:56 PM CDT) GLUCOSE POC 152(H) 74 - 99 mg/dL 12/31/2021 3:56 PM CDT [facility] POINT OF CARE Blood, whole 12/31/2021 3:56 PM CDT 12/31/2021 4:07 PM CDT Thelma Ken MD POINT OF CARE TE STING Performing Organization Address City/[facility]/ZIP Co de Phone Number [facility] POINT OF CARE CLIA # [id number] [place] [address] * (ABNORMAL) POC GLUCOSE (12/31/2021 1:20 PM CDT) GLUCOSE POC 130(H) 74 - 99 mg/dL 12/31/2021 1:20 PM CDT [facility] POINT OF CARE Blood, whole 12/31/2021 1:20 PM CDT 12/31/2021 1:22 PM CDT Thelma Ken MD POINT OF CARE TE STING Performing Organization Address [facility]/ZIP Co de Phone Number [facility] POINT OF CARE CLIA # [id number] [place] [address] * (ABNORMAL) POC GLUCOSE (12/31/2021 8:54 AM CDT) GLUCOSE POC 127(H) 74 - 99 mg/dL 12/31/2021 8:54 AM CDT [facility] POINT OF CARE Blood, whole 12/31/2021 8:54 AM CDT 12/31/2021 9:02 AM CDT Thelma Ken MD POINT OF CARE TE STING Performing Organization Address City/[facility]/ZIP Co de Phone Number [facility] POINT OF CARE CLIA # [id number] [place] [address] * (ABNORMAL) COMPREHENSIVE METABOLIC PANEL (12/31/2021 5:23 AM CDT) [facility] SODIUM 141 136 - 145 mmol/L 12/31/2021 6:22 AM [facility]AT[facility] POTASSIUM 4.1 3.4 - 5.1 mmol/L 12/31/2021 6:22 AM [facility] CHLORIDE 105 98 - 107 mmol/L 12/31/2021 6:22 AM [facility] CO2 26 22 - 29 mmol/L 12/31/2021 6:22 AM [facility] CALCIUM 8.9 8.6 - 10.4 mg/dL 12/31/2021 6:22 AM [facility] BUN 20 6 - 20 mg/dL 12/31/2021 6:22 AM [facility] CREATININE 0.79 0.51 - 0.95 mg/dL 12/31/2021 6:22 AM [facility] GLUCOSE 168(H) 74 - 99 mg/dL 12/31/2021 6:22 AM [facility] TOTAL PROTEIN 6.4 6.3 - 8.7 g/dL 12/31/2021 6:22 AM [facility] ALBUMIN 3.6 3.5 - 5.2 g/dL 12/31/2021 6:22 AM [facility] BILIRUBIN TOTAL 0.3 0.2 - 1.1 mg/dL 12/31/2021 6:22 AM [facility] ALKALINE PHOSPHATASE 77 40 - 150 U/L 12/31/2021 6:22 AM [facility] AST 35(H) 0 - 33 U/L 12/31/2021 6:22 AM [facility] ALT 38(H) 0 - 33 U/L 12/31/2021 6:22 AM [facility] GFR >60 >=60 mL/min/1.7 3 sq meter 12/31/2021 6:22 AM [facility] Comment:eGFR calculated with 2020 CKD-EPI equation. Vegetarian diet, extremely high or low muscle mass, and may affect results. Cystatin C with Glomerular Filtration Rate is a suitable alternative for these patients. ANION GAP 10 8 - 16 mmol/L 12/31/2021 6:22 AM CDT [facility] Blood Venipuncture / Unknown 12/31/2021 5:23 AM CDT 12/31/2021 5:52 AM CDT Thelma Ken MD CHEMISTRY ORDERA BLES [facility] CLIA# [id number] [place] [address] * (ABNORMAL) CBC WITHOUT DIFFERENTIAL (12/31/2021 5:23 AM CDT) WBC 12.9(H) 4.5 - 10.5 K/uL 12/31/2021 5:54 AM CDT [facility] RBC 3.44(L) 3.90 - 4.90 M/uL 12/31/2021 5:54 AM CDT [facility] HEMOGLOBIN 9.5(L) 11.8 - 14.8 g/dL 12/31/2021 5:54 AM T [facility] HEMATOCRIT 29.3(L) 35.5 - 44.0 % 12/31/2021 5:54 AM CDT [facility] MCV 85.1 82.0 - 99.0 fL 12/31/2021 5:54 AM CDT [facility] MCH 27.6(L) 27.8 - 34.5 pg 12/31/2021 5:54 AM CDT [facility] MCHC 32.4(L) 32.5 - 35.5 g/dL 12/31/2021 5:54 AM CDT [facility] PLATELETS 243 160 - 420 K/uL 12/31/2021 5:54 AM CDT [facility] MPV 7.3(L) 8.7 - 12.7 fL 12/31/2021 5:54 AM CDT [facility] RDW 16.6(H) 11.5 - 14.5 % 12/31/2021 5:54 AM CDT [facility] Blood Venipuncture / Unknown 12/31/2021 5:23 AM CDT 12/31/2021 5:49 AM CDT Thelma Ken MD HEMATOLOGY ORDER [facility] CLIA# [id number] [place] [address] * (ABNORMAL) POC GLUCOSE (12/31/2021 5:17 AM CDT) GLUCOSE POC 162(H) 74 - 99 mg/dL 12/31/2021 5:17 AM CDT [facility] POINT OF CARE Blood, whole 12/31/2021 5:17 AM CDT 12/31/2021 5:25 AM CDT Thelma Ken MD POINT OF CARE TE STING Performing Organization Address [facility] Co de Phone Number [facility] POINT OF CARE CLIA # [id number] [place] [address] * (ABNORMAL) POC GLUCOSE (12/31/2021 3:03 AM CDT) GLUCOSE POC 187(H) 74 - 99 mg/dL 12/31/2021 3:03 AM CDT [facility] POINT OF CARE Blood, whole 12/31/2021 3:03 AM CDT 12/31/2021 3:07 AM CDT Thelma Ken MD POINT OF CARE TE STING Performing Organization Address [facility]/ZIP Co de Phone Number [facility] POINT OF CARE CLIA # [id number] [place] [address] * (ABNORMAL) POC GLUCOSE (12/30/2021 11:55 PM CDT) GLUCOSE POC 164(H) 74 - 99 mg/dL 12/30/2021 11:55 PM CDT [facility] POINT OF CARE Blood, whole 12/30/2021 11:5 5 PM CDT 12/30/2021 11:57 PM CDT Thelma Ken MD POINT OF CARE TE STING Performing Organization Address [facility]/ZIP Co de Phone Number [facility] POINT OF CARE CLIA # [id number] [place] [address] * (ABNORMAL) POC GLUCOSE (12/30/2021 9:12 PM CDT) GLUCOSE POC 150(H) 74 - 99 mg/dL 12/30/2021 9:12 PM CDT [facility] POINT OF CARE Blood, whole 12/30/2021 9:12 PM CDT 12/30/2021 9:23 PM CDT Thelma Ken MD POINT OF CARE TE STING Performing Organization Address [facility] Co de Phone Number [facility] POINT OF CARE CLIA # [id number] [place] [address] * (ABNORMAL) POC GLUCOSE (12/30/2021 4:08 PM CDT) GLUCOSE POC 145(H) 74 - 99 mg/dL 12/30/2021 4:08 PM CDT [facility] POINT OF CARE Blood, whole 12/30/2021 4:08 PM CDT 12/30/2021 4:19 PM CDT Thelma Ken MD POINT OF CARE TE STING Performing Organization Address [facility]/ZIP Co de Phone Number [facility] POINT OF CARE CLIA # [id number] [place] [address] * (ABNORMAL) POC GLUCOSE (12/30/2021 1:36 PM CDT) GLUCOSE POC 156(H) 74 - 99 mg/dL 12/30/2021 1:36 PM CDT [facility] POINT OF CARE Blood, whole 12/30/2021 1:36 PM CDT 12/30/2021 1:47 PM CDT Thelma Ken MD POINT OF CARE TE STING Performing Organization Address [facility]/ZIP Co de Phone Number [facility] POINT OF CARE CLIA # [id number] [place] [address] * (ABNORMAL) POC GLUCOSE (12/30/2021 9:56 AM CDT) GLUCOSE POC 153(H) 74 - 99 mg/dL 12/30/2021 9:56 AM CDT [facility] POINT OF CARE Blood, whole 12/30/2021 9:56 AM CDT 12/30/2021 10:07 AM CDT Thelma Ken MD POINT OF CARE TE STING Performing Organization Address [facility]/ZIP Co de Phone Number [facility] POINT OF CARE CLIA # [id number] [place] [address] * (ABNORMAL) COMPREHENSIVE METABOLIC PANEL (12/30/2021 5:04 AM CDT) SODIUM 141 136 - 145 mmol/L 12/30/2021 5:49 AM CDT [facility] SERVICES - [facility] POTASSIUM 4.5 3.4 - 5.1 mmol/L 12/30/2021 5:49 AM CDT [facility] SERVICES - [facility] CHLORIDE 105 98 - 107 mmol/L 12/30/2021 5:49 AM CDT [facility] - [facility] CO2 23 22 - 29 mmol/L 12/30/2021 5:49 AM CDT [facility] SERVICES - [facility] CALCIUM 9.1 8.6 - 10.4 mg/dL 12/30/2021 5:49 AM CDT [facility] BUN 21(H) 6 - 20 mg/dL 12/30/2021 5:49 AM T [facility] CREATININE 0.90 0.51 - 0.95 mg/dL 12/30/2021 5:49 AM T [facility] GLUCOSE 156(H) 74 - 99 mg/dL 12/30/2021 5:49 AM T [facility] TOTAL PROTEIN 6.4 6.3 - 8.7 g/dL 12/30/2021 5:49 AM T [facility] ALBUMIN 3.8 3.5 - 5.2 g/dL 12/30/2021 5:49 AM T [facility] BILIRUBIN TOTAL 0.3 0.2 - 1.1 mg/dL 12/30/2021 5:49 AM T [facility] ALKALINE PHOSPHATASE 81 40 - 150 U/L 12/30/2021 5:49 AM T [facility] AST 59(H) 0 - 33 U/L 12/30/2021 5:49 AM [facility] ALT 55(H) 0 - 33 U/L 12/30/2021 5:49 AM T [facility] GFR >60 >=60 mL/min/1.7 3 sq meter 12/30/2021 5:49 AM [facility] Comment:eGFR calculated with 2020 CKD-EPI equation. Vegetarian diet, extremely high or low muscle mass, and may affect results. Cystatin C with Glomerular Filtration Rate is a suitable alternative for these patients. ANION GAP 13 8 - 16 mmol/L 12/30/2021 5:49 AM T [facility] Blood Venipuncture / Unknown 12/30/2021 5:04 AM CDT 12/30/2021 5:19 AM CDT Thelma Ken MD CHEMISTRY ORDERA BLES [facility] CLIA# [id number] [place] [address] * (ABNORMAL) CBC WITHOUT DIFFERENTIAL (12/30/2021 5:04 AM CDT) [facility] Signature WBC 14.1(H) 4.5 - 10.5 K/uL 12/30/2021 5:22 AM CDT [facility] RBC 4.03 3.90 - 4.90 M/uL 12/30/2021 5:22 AM CDT [facility] HEMOGLOBIN 10.9(L) 11.8 - 14.8 g/dL 12/30/2021 5:22 AM CDT [facility] HEMATOCRIT 34.2(L) 35.5 - 44.0 % 12/30/2021 5:22 AM CDT [facility] MCV 84.9 82.0 - 99.0 fL 12/30/2021 5:22 AM CDT [facility] MCH 27.0(L) 27.8 - 34.5 pg 12/30/2021 5:22 AM CDT [facility] MCHC 31.9(L) 32.5 - 35.5 g/dL 12/30/2021 5:22 AM CDT [facility] PLATELETS 300 160 - 420 K/uL 12/30/2021 5:22 AM CDT [facility] MPV 7.1(L) 8.7 - 12.7 fL 12/30/2021 5:22 AM CDT [facility] RDW 16.9(H) 11.5 - 14.5 % 12/30/2021 5:22 AM CDT [facility] Blood Venipuncture / Unknown 12/30/2021 5:04 AM CDT 12/30/2021 5:20 AM CDT Thelma Ken MD HEMATOLOGY ORDER PHILIPP [facility] CLIA# [id number] [place] [address] * (ABNORMAL) POC GLUCOSE (12/30/2021 5:02 AM CDT) GLUCOSE POC 153(H) 74 - 99 mg/dL 12/30/2021 5:02 AM CDT [facility] POINT OF CARE Blood, whole 12/30/2021 5:02 AM CDT 12/30/2021 5:04 AM CDT Thelma Ken MD POINT OF CARE TE STING Performing Organization Address City/[facility]/ZIP Co de Phone Number [facility] POINT OF CARE CLIA # [id number] [place] [address] * (ABNORMAL) POC GLUCOSE (12/30/2021 2:49 AM CDT) GLUCOSE POC 151(H) 74 - 99 mg/dL 12/30/2021 2:49 AM CDT [facility] POINT OF CARE Blood, whole 12/30/2021 2:49 AM CDT 12/30/2021 2:50 AM CDT Thelma Ken MD POINT OF CARE TE STING Performing Organization Address City/[facility]/ZIP Co de Phone Number [facility] POINT OF CARE CLIA # [id number] [place] [address] * (ABNORMAL) POC GLUCOSE (12/29/2021 11:18 PM CDT) GLUCOSE POC 155(H) 74 - 99 mg/dL 12/29/2021 11:18 PM CDT [facility] POINT OF CARE Blood, whole 12/29/2021 11:1 8 PM CDT 12/29/2021 11:19 PM CDT Thelma Ken MD POINT OF CARE TE STING [facility] POINT OF CARE CLIA # [id number] [place] [address] * (ABNORMAL) POC GLUCOSE (12/29/2021 9:52 PM CDT) GLUCOSE POC 160(H) 74 - 99 mg/dL 12/29/2021 9:52 PM CDT [facility] POINT OF CARE Blood, whole 12/29/2021 9:52 PM CDT 12/29/2021 9:53 PM CDT Thelma Ken MD POINT OF CARE TE STING Performing Organization Address City/[facility]/ZIP Co de Phone Number [facility] POINT OF CARE CLIA # [id number] [place] [address] * (ABNORMAL) POC GLUCOSE (12/29/2021 9:01 PM CDT) GLUCOSE POC 159(H) 74 - 99 mg/dL 12/29/2021 9:01 PM CDT [facility] POINT OF CARE Blood, whole 12/29/2021 9:01 PM CDT 12/29/2021 9:02 PM CDT Thelma Ken MD POINT OF CARE TE STING [facility] POINT OF CARE CLIA # [id number] [place] [address] * (ABNORMAL) BASIC METABOLIC PANEL (12/29/2021 5:54 PM CDT) SODIUM 141 136 - 145 mmol/L 12/29/2021 8:01 PM CDT [facility] - [facility] POTASSIUM 4.5 3.4 - 5.1 mmol/L 12/29/2021 8:01 PM CDT [facility] - [facility] CHLORIDE 107 98 - 107 mmol/L 12/29/2021 8:01 PM CDT [facility] - [facility] CO2 19(L) 22 - 29 mmol/L 12/29/2021 8:01 PM CDT [facility]ATORY [facility] CALCIUM 9.6 8.6 - 10.4 mg/dL 12/29/2021 8:01 PM CDT [facility] BUN 19 6 - 20 mg/dL 12/29/2021 8:01 PM T [facility] CREATININE 0.87 0.51 - 0.95 mg/dL 12/29/2021 8:01 PM T [facility] GLUCOSE 169(H) 74 - 99 mg/dL 12/29/2021 8:01 PM CDT [facility] GFR >60 >=60 mL/min/1.7 3 sq meter 12/29/2021 8:01 PM T [facility] Comment:eGFR calculated with 2020 CKD-EPI equation. Vegetarian diet, extremely high or low muscle mass, and may affect results. Cystatin C with Glomerular Filtration Rate is a suitable alternative for these patients. ANION GAP 15 8 - 16 mmol/L 12/29/2021 8:01 PM T [facility] Blood Venipuncture / Unknown 12/29/2021 5:54 PM CDT 12/29/2021 7:24 PM CDT Omar Dias MD CHEMISTRY ORDERABLES [facility] CLIA# [id number] [place] [address] * (ABNORMAL) CBC WITH DIFFERENTIAL (12/29/2021 5:54 PM CDT) WBC 12.0(H) 4.5 - 10.5 K/uL 12/29/2021 7:35 PM CDT [facility] RBC 4.21 3.90 - 4.90 M/uL 12/29/2021 7:35 PM CDT [facility] HEMOGLOBIN 11.5(L) 11.8 - 14.8 g/dL 12/29/2021 7:35 PM CDT [facility] HEMATOCRIT 35.2(L) 35.5 - 44.0 % 12/29/2021 7:35 PM CDT [facility]ORATORY SERVICES [facility] MCV 83.5 82.0 - 99.0 fL 12/29/2021 7:35 PM CDT [facility] SERVICES [facility] MCH 27.2(L) 27.8 - 34.5 pg 12/29/2021 7:35 PM CDT [facility]OR[facility] SERVICES [facility] MCHC 32.6 32.5 - 35.5 g/dL 12/29/2021 7:35 PM CDT [facility]ORATORY SERVICES [facility] RDW 16.5(H) 11.5 - 14.5 % 12/29/2021 7:35 PM CDT [facility] LABORATORY SERVICES [facility] PLATELETS 314 160 - 420 K/uL 12/29/2021 7:35 PM CDT [facility]ORATORY SERVICES [facility] MPV 7.3(L) 8.7 - 12.7 fL 12/29/2021 7:35 PM CDT [facility]AT[facility] SERVICES [facility] NEUTROPHILS 86 % 12/29/2021 7:35 PM CDT [facility] LABORATORY SERVICES [facility] LYMPHOCYTES 8 % 12/29/2021 7:35 PM CDT [facility]ORATORY SERVICES [facility] MONOCYTES 6 % 12/29/2021 7:35 PM CDT [facility]ATORY SERVICES [facility] EOSINOPHILS 0 % 12/29/2021 7:35 PM CDT [facility] SERVICES [facility] BASOPHILS 0 % 12/29/2021 7:35 PM CDT [facility]AT[facility] SERVICES [facility] NEUTROPHIL ABSOLUTE 10.30(H) 1.90 - 7.00 K/uL 12/29/2021 7:35 PM CDT [facility]ORATORY SERVICES [facility] LYMPHOCYTE ABSOLUTE 0.90 0.70 - 4.50 K/uL 12/29/2021 7:35 PM CDT [facility] SERVICES [facility] MONOCYTE ABSOLUTE 0.70 0.10 - 1.30 K/uL 12/29/2021 7:35 PM CDT [facility] SERVICES [facility] EOSINOPHIL ABSOLUTE 0.00 0.00 - 0.70 K/uL 12/29/2021 7:35 PM CDT [facility] SERVICES [facility] BASOPHILS ABSOLUTE 0.00 0.00 - 0.20 K/uL 12/29/2021 7:35 PM CDT [facility] Blood Venipuncture / Unknown 12/29/2021 5:54 PM CDT 12/29/2021 7:24 PM CDT Omar Dias MD HEMATOLOGY ORDERABLE S Performing Organization Address City/[facility]/ZIP Co de Phone Number [facility] CLIA# [id number] [place] [address] * (ABNORMAL) POC LACTIC ACID (12/29/2021 2:59 PM CDT) LACTIC ACID POC 6.1(H) <=2.0 mmol/L 12/29/2021 2:59 PM CDT [facility] SPECIMEN SOURCE, GASES POC Arterial 12/29/2021 2:59 PM CDT [facility] Blood 12/29/2021 2:59 PM CDT 12/29/2021 3:01 PM CDT Thelma Ken MD POINT OF CARE TE STING [facility] CLIA# [id number] [place] [address] * (ABNORMAL) OXIMETRY (12/29/2021 2:59 PM CDT) OXYHEMOGLOBIN POC 98.2(H) 94.0 - 97.0 % 12/29/2021 2:59 PM CDT [facility] HEMOGLOBIN POC 11.5(L) 11.8 - 14.8 g/dL 12/29/2021 2:59 PM CDT [facility] OXYGEN CONTENT POC 16.3 mL/dL 12/29/2021 2:59 PM CDT [facility] O2 SATURATION POC 100(H) 94 - 98 % 022 2:59 PM CDT [facility] SPECIMEN SOURCE, GASES POC Arterial 12/29/2021 2:59 PM CDT [facility] SAMPLE SITE, GASES POC N-SY 12/29/2021 2:59 PM CDT [facility] Blood 12/29/2021 2:59 PM CDT 12/29/2021 3:01 PM CDT Thelma Ken MD ABG ORDERABLES [facility] CLIA# [id number] [place] [address] * (ABNORMAL) METHEMOGLOBIN QUANTITATIVE (12/29/2021 2:59 PM CDT) METHEMOGLOBIN QUANT POC 0.0 <=1.5 % 12/29/2021 2:59 PM CDT [facility] HEMOGLOBIN POC 11.5(L) 11.8 - 14.8 g/dL 12/29/2021 2:59 PM CDT [facility] Blood 12/29/2021 2:59 PM CDT 12/29/2021 3:01 PM CDT Thelma Ken MD ABG ORDERABLES [facility] CLIA# [id number] [place] [address] * (ABNORMAL) CARBOXYHEMOGLOBIN (12/29/2021 2:59 PM CDT) CARBOXYHEMOGLOBIN POC 1.4 <=7.0 % 2:59 PM CDT [facility] HEMOGLOBIN POC 11.5(L) 11.8 - 14.8 g/dL 12/29/2021 2:59 PM CDT [facility] Blood 12/29/2021 2:59 PM CDT 12/29/2021 3:01 PM CDT Thelma Ken MD ABG ORDERABLES [facility] CLIA# [id number] [place] [address] * (ABNORMAL) BLOOD GAS,(INCL. H+H, LYTES, GLUC) (12/29/2021 2:59 PM CDT) PH BLOOD POC 7.42 7.35 - 7.45 12/29/2021 2:59 PM CDT [facility] PCO2 POC 27(L) 35 - 48 mm Hg 12/29/2021 2:59 PM CDT [facility] PO2 POC 207(H) 83 - 108 mm Hg 12/29/2021 2:59 PM CDT [facility] HCO3 (CALC) POC 18(L) 22 - 26 mmol/L 12/29/2021 2:59 PM CDT [facility] O2 SATURATION POC 100(H) 94 - 98 % 12/29/2021 2:59 PM CDT [facility] BASE EXCESS POC -6(L) -2 - 3 mmol/L 12/29/2021 2:59 PM CDT [facility] HEMOGLOBIN POC 11.5(L) 11.8 - 14.8 g/dL 12/29/2021 2:59 PM CDT [facility] HEMATOCRIT POC 35 35 - 44 % 12/29/2021 2:59 PM CDT [facility] Comment:Estimated Value GLUCOSE POC 185(H) 74 - 99 mg/dL 12/29/2021 2:59 PM CDT [facility] SODIUM POC 135 135 - 145 mmol/L 12/29/2021 2:59 PM CDT [facility] POTASSIUM POC 3.7 3.5 - 4.9 mmol/L 12/29/2021 2:59 PM CDT [facility] CHLORIDE POC 106 98 - 107 mmol/L 12/29/2021 2:59 PM CDT [facility] CALCIUM IONIZED POC 4.7(L) 4.8 - 5.2 mg/dL 12/29/2021 2:59 PM CDT [facility] PH TEMP CORRECT 7.42 7.35 - 7.45 12/30/19 2:59 PM CDT [facility] PCO2 TEMP CORRECT 27(L) 35 - 48 mm Hg 12/29/2021 2:59 PM CDT [facility] PO2 TEMP CORRECT 207(H) 83 - 108 mm Hg 12/29/2021 2:59 PM CDT [facility] SPECIMEN SOURCE, GASES POC Arterial 12/29/2021 2:59 PM CDT [facility] PATIENT'S TEMPERATURE POC 37.0 degrees 12/29/2021 2:59 PM CDT [facility] OXYGEN CONTENT POC 16.3 mL/dL 12/29/2021 2:59 PM CDT [facility] Blood, arterial 12/29/2021 2 :59 PM CDT 12/29/2021 3:01 PM CDT Thelma Ken MD ABG ORDERABLES [facility] CLIA# [id number] [place] [address] * (ABNORMAL) POC LACTIC ACID (12/29/2021 1:05 PM CDT) LACTIC ACID POC 4.8(H) <=2.0 mmol/L 12/29/2021 1:05 PM CDT [facility] SPECIMEN SOURCE, GASES POC Arterial 12/29/2021 1:05 PM CDT [facility] Blood 12/29/2021 1:05 PM CDT 12/29/2021 1:06 PM CDT Thelma Ken MD POINT OF CARE TE STING [facility] CLIA# [id number] [place] [address] * (ABNORMAL) OXIMETRY (12/29/2021 1:05 PM CDT) OXYHEMOGLOBIN POC 98.3(H) 94.0 - 97.0 % 12/29/2021 1:05 PM CDT [facility] HEMOGLOBIN POC 12.2 11.8 - 14.8 g/dL 12/29/2021 1:05 PM CDT [facility] OXYGEN CONTENT POC 17.3 mL/dL 12/29/2021 1:05 PM CDT [facility] O2 SATURATION POC 100(H) 94 - 98 % 022 1:05 PM CDT [facility] SPECIMEN SOURCE, GASES POC Arterial 12/29/2021 1:05 PM CDT [facility] SAMPLE SITE, GASES POC N-SY 12/29/2021 1:05 PM CDT [facility] Blood 12/29/2021 1:05 PM CDT 12/29/2021 1:06 PM CDT Thelma Ken MD ABG ORDERABLES Performing Organization Address City/State/[facility] Co de Phone Number [facility]# [id number] [place] [address] * METHEMOGLOBIN QUANTITATIVE (12/29/2021 1:05 PM CDT) [facility] METHEMOGLOBIN QUANT POC 0.2 <=1.5 % 12/29/2021 1:05 PM CDT [facility] HEMOGLOBIN POC 12.2 11.8 - 14.8 g/dL 12/29/2021 1:05 PM CDT [facility] Blood 12/29/2021 1:05 PM CDT 12/29/2021 1:06 PM CDT Thelma Ken MD [facility]ABLES [id number] [place] [address] * CARBOXYHEMOGLOBIN (12/29/2021 1:05 PM CDT) CARBOXYHEMOGLOBIN POC 1.0 <=7.0 % 1:05 PM CDT [facility] HEMOGLOBIN POC 12.2 11.8 - 14.8 g/dL 12/29/2021 1:05 PM CDT [facility] Blood 12/29/2021 1:05 PM CDT 12/29/2021 1:06 PM CDT Thelma Ken MD ABG ORDERABLES Performing Organization Address [facility]/ZIP Co de Phone Number [facility] CLIA# [id number] [place] [address] * (ABNORMAL) BLOOD GAS,(INCL. H+H, LYTES, GLUC) (12/29/2021 1:05 PM CDT) PH BLOOD POC 7.38 7.35 - 7.45 12/29/2021 1:05 PM CDT [facility] PCO2 POC 33(L) 35 - 48 mm Hg 12/29/2021 1:05 PM CDT [facility] PO2 POC 203(H) 83 - 108 mm Hg 12/29/2021 1:05 PM CDT [facility] HCO3 (CALC) POC 20(L) 22 - 26 mmol/L 12/29/2021 1:05 PM CDT [facility] O2 SATURATION POC 100(H) 94 - 98 % 12/29/2021 1:05 PM CDT [facility] BASE EXCESS POC -5(L) -2 - 3 mmol/L 12/29/2021 1:05 PM CDT [facility] HEMOGLOBIN POC 12.2 11.8 - 14.8 g/dL 12/29/2021 1:05 PM T [facility] HEMATOCRIT POC 37 35 - 44 % 12/29/2021 1:05 PM [facility] Comment:Estimated Value GLUCOSE POC 172(H) 74 - 99 mg/dL 12/29/2021 1:05 PM [facility] SODIUM POC 136 135 - 145 mmol/L 12/29/2021 1:05 PM [facility] POTASSIUM POC 3.4(L) 3.5 - 4.9 mmol/L 12/29/2021 1:05 PM [facility] CHLORIDE POC 106 98 - 107 mmol/L 12/29/2021 1:05 PM [facility] CALCIUM IONIZED POC 5.0 4.8 - 5.2 mg/dL 12/29/2021 1:05 PM [facility] PH TEMP CORRECT 7.38 7.35 - 7.45 12/30/19 1:05 PM T [facility] PCO2 TEMP CORRECT 33(L) 35 - 48 mm Hg 12/29/2021 1:05 PM [facility] PO2 TEMP CORRECT 203(H) 83 - 108 mm Hg 12/29/2021 1:05 PM [facility] SPECIMEN SOURCE, GASES POC Arterial 12/29/2021 1:05 PM [facility] PATIENT'S TEMPERATURE POC 37.0 degrees 12/29/2021 1:05 PM T [facility] OXYGEN CONTENT POC 17.3 mL/dL 12/29/2021 1:05 PM [facility] Blood, arterial 12/29/2021 1 :05 PM CDT 12/29/2021 1:06 PM CDT Thelma Ken MD ABG ORDERABLES [facility] CLIA# [id number] [place] [address] * (ABNORMAL) POC LACTIC ACID (12/29/2021 11:11 AM CDT) LACTIC ACID POC 5.0(H) <=2.0 mmol/L 12/29/2021 11:11 AM CDT [facility] SPECIMEN SOURCE, GASES POC Arterial 12/29/2021 11:11 AM CDT [facility] Blood 12/29/2021 11:1 1 AM CDT 12/29/2021 11:13 AM CDT Thelma Ken MD POINT OF CARE TE STING [facility] CLIA# [id number] [place] [address] * (ABNORMAL) OXIMETRY (12/29/2021 11:11 AM CDT) OXYHEMOGLOBIN POC 97.8(H) 94.0 - 97.0 % 12/29/2021 11:11 AM CDT [facility] HEMOGLOBIN POC 12.6 11.8 - 14.8 g/dL 12/29/2021 11:11 AM CDT [facility] OXYGEN CONTENT POC 17.8 mL/dL 12/29/2021 11:11 AM CDT [facility] O2 SATURATION POC 99(H) 94 - 98 % 022 11:11 AM CDT [facility] [employer] [facility] SPECIMEN SOURCE, GASES POC Arterial 12/29/2021 11:11 AM CDT [facility] [employer] [facility] SAMPLE SITE, GASES POC N-SY 12/29/2021 11:11 AM CDT [facility] Blood 12/29/2021 11:1 1 AM CDT 12/29/2021 11:13 AM CDT Thelma Ken MD ABG ORDERABLES [facility] [id number] [place] [address] * METHEMOGLOBIN QUANTITATIVE (12/29/2021 11:11 AM CDT) [facility] METHEMOGLOBIN QUANT POC 0.6 <=1.5 % 12/29/2021 11:11 AM CDT [facility] HEMOGLOBIN POC 12.6 11.8 - 14.8 g/dL 12/29/2021 11:11 AM CDT [facility] Blood 12/29/2021 11:1 1 AM CDT 12/29/2021 11:13 AM CDT Thelma Ken MD ABG ORDERABLES [facility] [id number] [place] [address] * CARBOXYHEMOGLOBIN (12/29/2021 11:11 AM CDT) [facility] CARBOXYHEMOGLOBIN POC 0.5 <=7.0 % 11:11 AM CDT [facility] HEMOGLOBIN POC 12.6 11.8 - 14.8 g/dL 12/29/2021 11:11 AM CDT [facility] Blood 12/29/2021 11:1 1 AM CDT 12/29/2021 11:13 AM CDT Thelma Ken MD ABG ORDERABLES [facility] [id number] [place] [address] * (ABNORMAL) BLOOD GAS,(INCL. H+H, LYTES, GLUC) (12/29/2021 11:11 AM CDT) [facility] PH BLOOD POC 7.47(H) 7.35 - 7.45 12/29/2021 11:11 AM [facility] PCO2 POC 27(L) 35 - 48 mm Hg 12/29/2021 11:11 AM [facility] PO2 POC 198(H) 83 - 108 mm Hg 12/29/2021 11:11 AM [facility] HCO3 (CALC) POC 20(L) 22 - 26 mmol/L 12/29/2021 11:11 AM [facility] O2 SATURATION POC 99(H) 94 - 98 % 12/29/2021 11:11 AM [facility] BASE EXCESS POC -3(L) -2 - 3 mmol/L 12/29/2021 11:11 AM [facility] HEMOGLOBIN POC 12.6 11.8 - 14.8 g/dL 12/29/2021 11:11 AM [facility] HEMATOCRIT POC 38 35 - 44 % 12/29/2021 11:11 AM [facility] Comment:Estimated Value GLUCOSE POC 167(H) 74 - 99 mg/dL 12/29/2021 11:11 AM [facility] SODIUM POC 136 135 - 145 mmol/L 12/29/2021 11:11 AM [facility] POTASSIUM POC 3.1(L) 3.5 - 4.9 mmol/L 12/29/2021 11:11 AM [facility] CHLORIDE POC 106 98 - 107 mmol/L 12/29/2021 11:11 AM [facility] CALCIUM IONIZED POC 4.4(L) 4.8 - 5.2 mg/dL 12/29/2021 11:11 AM [facility] PH TEMP CORRECT 7.47(H) 7.35 - 7.45 12/30/19 11:11 AM [facility] PCO2 TEMP CORRECT 27(L) 35 - 48 mm Hg 12/29/2021 11:11 AM [facility] PO2 TEMP CORRECT 198(H) 83 - 108 mm Hg 12/29/2021 11:11 AM CDT [facility] SPECIMEN SOURCE, GASES POC Arterial 12/29/2021 11:11 AM CDT [facility] PATIENT'S TEMPERATURE POC 37.0 degrees 12/29/2021 11:11 AM CDT [facility] OXYGEN CONTENT POC 17.8 mL/dL 12/29/2021 11:11 AM CDT [facility] Blood, arterial 12/29/2021 1 1:11 AM CDT 12/29/2021 11:13 AM CDT Thelma Ken MD ABG ORDERABLES [facility] CLIA# [id number] [place] [address] * PATHOLOGY (12/29/2021 9:44 AM CDT) CASE REPORT Surgical Pathology Report ? Case: [id number] ? Authorizing Provider: ??Thelma Ken MD ??Collected: ? 12/29/2021 09:44 AM ? [facility] ? Received: ?12/29/2021 04:35 PM ? Operating Room ? Pathologist: ? Nicolle Read MD ? Specimens: ?? A) - Lymph node, Right gastroepiploic lymph nodes ? B) - Gallbladder ? C) - Lymph node, Portal vein lymph node ? D) - Other, specify, Pancreatic stent, gross only ? E) - Pancreas, whipple ? 2 4:12 PM T [facility] [employer] - [facility] FINAL DIAGNOSIS Lymph node, right gastroepiploic, excision - Fibroadipose tissue with focal lymphoid collection - No evidence of malignancy Gallbladder, cholecystectomy - Chronic cholecystitis Lymph node, portal vein, excision - 1 lymph node no evidence of metastatic carcinoma (0/1) Foreign material/instrumentation , pancreatic stent, gross examination only - Consistent with stent (gross examination only) Small bowel and pancreas, Whipple procedure - Ampullary tubulovillous adenoma with high-grade dysplasia - Residual mucin pools, consistent with treatment effect - 16 lymph nodes with no evidence of metastatic carcinoma (0/16) 4:12 PM CDT [facility] LABORATORY SERVICES [facility] S DESCRIPTION Received in formalin labeled with the patient's name and right gastroepiploic lymph nodes is a 5.5 x 3.5 x 2 cm fragment of yellow-cuello lobulated soft tissue. Sectioning through the specimen shows 3 possible lymph nodes ranging from 0.2 to 0.3 cm. The possible lymph nodes are entirely submitted in A1. Received in formalin labeled with the patient's name and gallbladder is a 9 x 3 x 2 cm gallbladder. The specimen is opened to show approximately 5 mL of bile. No definitive calculi are identified within the specimen or the specimen container. The gallbladder mucosa is granular. The specimen has a maximal wall thickness of 0.3 cm. Program Professional sections of the gallbladder and cystic duct are submitted in B1. Received in formalin labeled with the patient's name and portal vein lymph node is a 1.5 x 1 x 0.5 cm lymph node. The specimen is bisected and entirely submitted in C1. Received in formalin labeled with the patient's name and pancreatic stent, gross only is a 10 cm in length and 0.2 cm in diameter portion of loop plastic tubing with multiple circular openings (0.1 cm in greatest dimension) is grossly consistent with a stent. The specimen is submitted for gross examination only. Received in formalin labeled with the patient's name and Whipple is a 15 cm in length portion of small bowel with 2 stapled resection margins and attached 5 x 5 x 4 cm portion of pancreas. The pancreas is inked as follows: Uncinate process/retroperitoneal margin-green, pancreatic neck-black, portal vein groove-blue, posterior aspect-yellow the small bowel is opened to show a stent within the ampulla. The small bowel mucosa surrounding the ampulla is polypoid, 3.5 x 2.5 cm. The ampulla is opened and the mucosa is overlaid with orange ink. The pancreatic duct is only able to be probed 3 cm and is not probe patent through the ampulla. The pancreatic duct mucosa is inked red. The pancreas is sectioned to show a 1 x 1 x 0.9 cm area of induration that corresponds to the ampulla. The pancreatic tissue surrounding the area of induration is pale-cuello and slightly fibrotic. This area comes to within 0.2 cm probable pancreatic duct, 0.1 cm from the mucosal surface of the small bowel, 0.1 cm from the bile duct mucosa 4.2 cm from the pancreatic neck resection margin, 3 cm from the vascular groove, 2 cm from the uncinate/retroperitoneal margin and 1 cm from the posterior aspect of the pancreas. The area of induration/pale-cuello fibrotic tissue within the pancreas is 4.5 cm from the bile duct resection margin, 4.7 cm from the proximal small bowel resection margin and 8 cm from the distal small bowel resection margin. The remainder of the pancreas is yellow-cuello and lobulated and grossly unremarkable (no additional lesions or masses are able to be identified). Sectioning through the small bowel polypoid mucosa shows no gross evidence of invasion. The polypoid mucosa comes to within 4.7 cm from the proximal small bowel resection margin and 8 cm from the distal resection margin. The remainder of the mucosa of the small bowel is unremarkable. Sectioning through the attached adipose tissue shows multiple possible lymph nodes ranging from 0.2 to 2 cm. Program Professional sections are submitted as follows: E1-proximal small bowel resection margin en face E2-distal small bowel resection margin en face E3-bile duct resection margin en face E4-pancreatic resection margin en face E5-E8 contiguous section of area of induration and fibrotic cut surface including probable pancreatic duct, bile duct, vascular groove, ampulla, area of uncinate/retroperitoneal margin and posterior aspect of pancreas E9-E13 contiguous section of pancreas including ampulla with surrounding polypoid mucosa from small bowel, vascular groove, uncinate/retroperitoneal margin bile duct and pancreatic duct E14-E16 polypoid mucosa small bowel with adjacent pancreas including remainder of fibrotic appearing tissue E17-E18 remainder of polypoid mucosa small bowel E19-E20 unremarkable pancreas E21-3 possible lymph nodes E22-3 possible lymph nodes E23-E24 2 lymph node sectioned The remaining fat is entirely submitted in E25-E29. 2 4:12 PM T [facility] Ebook [employer] [facility] MICROSCOPIC DESCRIPTION The ampullary mass shows a tubulovillous adenoma with high-grade dysplasia. Between the small bowel mass and the pancreas are small pools of acellular mucin, consistent with foci of treatment effect. The pools of acellular mucin are seen within the muscularis propria of the small bowel, adjacent to pancreas, and around nerves. Residual viable invasive adenocarcinoma is not identified. A pancytokeratin immunostain is performed on one of the blocks with mucin pools and is negative for infiltrative cells. The pancreatic duct shows marked reactive/regenerative changes and associated chronic inflammation. Dr. Trujillo has reviewed slides E11, E14 and E17 and concurs with the findings in these blocks. 2 4:12 PM [facility] OPERATIVE PROCEDURE 1: WHIPPLE 2 4:12 PM [facility] CLINICAL INFORMATION PANCREATIC CYST 2 4:12 PM [facility] SYNOPTIC REPORT AMPULLA OF VATER AMPULLA OF VATER: AMPULLECTOMY, PANCREATICODUODENECTOMY - All Specimens 8th Edition - Protocol posted: 02/08/2021 SPECIMEN ?? Procedure: ?Pancreaticoduodenectom y (Whipple resection) TUMOR ?? Tumor Site: ?Not specified ?? Histologic Type: ?Carcinoma, not otherwise specified ?? Histologic Grade: ?GX, cannot be assessed: no tumor remaining ?? Tumor Size: ?Cannot be determined: no tumor remaining ?? Tumor Extent: ?No evidence of primary tumor ?? Lymphovascular Invasion: ?Not identified MARGINS ?? Margin Status for Invasive Carcinoma: ?All margins negative for invasive carcinoma ?? Margin Status for Dysplasia and Intraepithelial Neoplasia: ?All margins negative for dysplasia and intraepithelial neoplasia REGIONAL LYMPH NODES ?? Regional Lymph Node Status: ? : ?All regional lymph nodes negative for tumor ? Number of Lymph Nodes Examined: ?17 PATHOLOGIC STAGE CLASSIFICATION (pTNM, AJCC 8th Edition) ?? Reporting of pT, pN, and (when applicable) pM categories is based on information available to the pathologist at the time the report is issued. As per the AJCC (Chapter 1, 8th Ed.) it is the managing physician? s responsibility to establish the final pathologic stage based upon all pertinent information, including but potentially not limited to this pathology report. ?? TNM Descriptors: ?y (post-treatment) ?? pT Category: ?pT0 ?? pN Category: ?pN0 4:12 PM CDT [facility] COMMENT Immunohistochemical stains were performed, if any, and interpreted at [facility]) Laboratory with appropriately staining controls. This test was developed and its performance characteristics determined by [facility] Lab. It has not been cleared or approved by the US Food and Drug Administration. The FDA does not require this test to go through premarket FDA review. This test is used for clinical purposes, and should not be regarded as investigational or for research. This lab is certified under CLIA to perform high complexity testing. Estrogen and progesterone receptor staining has not been validated in our lab on decalcified tissue; decalcification may decrease immunoreactivity for these and other antigens. 2 4:12 PM CDT [facility] Tissue ENTIRE LYMPH NODE / Unknown Collection / Unknown 12/29/2021 9:44 AM CDT 12/29/2021 4:35 PM CDT Tissue specimen (specimen) ENTIRE GALLBLADDER / Unknown 12/29/2021 10:36 AM CDT 12/29/2021 4:35 PM CDT Tissue specimen (specimen) ENTIRE LYMPH NODE / Unknown 12/29/2021 11:15 AM CDT 12/29/2021 4:35 PM CDT Tissue specimen (specimen) (Other, specify) 12/29/2021 12:14 PM CDT 12/29/2021 4:35 PM CDT Tissue specimen (specimen) ENTIRE PANCREAS / Unknown 12/29/2021 12:47 PM CDT 12/29/2021 4:35 PM CDT Thelma Ken MD PATHOLOGY/CYTOLO GY ORDERABLES [facility] CLIA# [id number] [place] [address] * (ABNORMAL) POC LACTIC ACID (12/29/2021 8:57 AM CDT) LACTIC ACID POC 2.3(H) <=2.0 mmol/L 12/29/2021 8:57 AM CDT [facility] SPECIMEN SOURCE, GASES POC Arterial 12/29/2021 8:57 AM CDT [facility] Blood 12/29/2021 8:57 AM CDT 12/29/2021 8:59 AM CDT Thelma Ken MD POINT OF CARE TE STING [facility] CLIA# [id number] [place] [address] * (ABNORMAL) OXIMETRY (12/29/2021 8:57 AM CDT) Pathologist [facility] OXYHEMOGLOBIN POC 98.2(H) 94.0 - 97.0 % 12/29/2021 8:57 AM CDT [facility] HEMOGLOBIN POC 12.0 11.8 - 14.8 g/dL 12/29/2021 8:57 AM CDT [facility] OXYGEN CONTENT POC 16.9 mL/dL 12/29/2021 8:57 AM CDT [facility] O2 SATURATION POC 99(H) 94 - 98 % 022 8:57 AM CDT [facility] SPECIMEN SOURCE, GASES POC Arterial 12/29/2021 8:57 AM CDT [facility] SAMPLE SITE, GASES POC N-SY 12/29/2021 8:57 AM CDT [facility] Blood 12/29/2021 8:57 AM CDT 12/29/2021 8:59 AM CDT Thelma Ken MD ABG ORDERABLES [facility] CLIA# [id number] [place] [address] * METHEMOGLOBIN QUANTITATIVE (12/29/2021 8:57 AM CDT) METHEMOGLOBIN QUANT POC 0.2 <=1.5 % 12/29/2021 8:57 AM CDT [facility] HEMOGLOBIN POC 12.0 11.8 - 14.8 g/dL 12/29/2021 8:57 AM CDT [facility] Blood 12/29/2021 8:57 AM CDT 12/29/2021 8:59 AM CDT [facility] Ken [id number] [place] [address] * CARBOXYHEMOGLOBIN (12/29/2021 8:57 AM CDT) CARBOXYHEMOGLOBIN POC 0.9 <=7.0 % 8:57 AM CDT [facility] HEMOGLOBIN POC 12.0 11.8 - 14.8 g/dL 12/29/2021 8:57 AM CDT [facility] Blood 12/29/2021 8:57 AM CDT 12/29/2021 8:59 AM CDT Thelma Ken MD ABG ORDERABLES [facility]# [id number] [place] [address] * (ABNORMAL) BLOOD GAS,(INCL. H+H, LYTES, GLUC) (12/29/2021 8:57 AM CDT) PH BLOOD POC 7.51(H) 7.35 - 7.45 12/29/2021 8:57 AM CDT [facility] PCO2 POC 30(L) 35 - 48 mm Hg 12/29/2021 8:57 AM CDT [facility] PO2 POC 178(H) 83 - 108 mm Hg 12/29/2021 8:57 AM T [facility] HCO3 (CALC) POC 24 22 - 26 mmol/L 12/29/2021 8:57 AM T [facility] O2 SATURATION POC 99(H) 94 - 98 % 12/29/2021 8:57 AM T [facility] BASE EXCESS POC 2 -2 - 3 mmol/L 12/29/2021 8:57 AM T [facility] HEMOGLOBIN POC 12.0 11.8 - 14.8 g/dL 12/29/2021 8:57 AM [facility] HEMATOCRIT POC 36 35 - 44 % 12/29/2021 8:57 AM [facility] Comment:Estimated Value GLUCOSE POC 155(H) 74 - 99 mg/dL 12/29/2021 8:57 AM [facility] SODIUM POC 136 135 - 145 mmol/L 12/29/2021 8:57 AM [facility] POTASSIUM POC 2.6(L) 3.5 - 4.9 mmol/L 12/29/2021 8:57 AM [facility] CHLORIDE POC 103 98 - 107 mmol/L 12/29/2021 8:57 AM [facility] CALCIUM IONIZED POC 4.6(L) 4.8 - 5.2 mg/dL 12/29/2021 8:57 AM [facility] PH TEMP CORRECT 7.51(H) 7.35 - 7.45 12/30/19 8:57 AM [facility] PCO2 TEMP CORRECT 30(L) 35 - 48 mm Hg 12/29/2021 8:57 AM [facility] PO2 TEMP CORRECT 178(H) 83 - 108 mm Hg 12/29/2021 8:57 AM [facility] SPECIMEN SOURCE, GASES POC Arterial 12/29/2021 8:57 AM [facility] PATIENT'S TEMPERATURE POC 37.0 degrees 12/29/2021 8:57 AM CDT [facility] OXYGEN CONTENT POC 16.9 mL/dL 12/29/2021 8:57 AM CDT [facility] Blood, arterial 12/29/2021 8 :57 AM CDT 12/29/2021 8:59 AM CDT Thelma Ken MD ABG ORDERABLES [facility] CLIA# [id number] [place] [address] documented in this encounter Visit Diagnoses Diagnosis 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 Pancreatic cyst Cyst and pseudocyst of 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 COPD (chronic obstructive pulmonary disease) Chronic airway obstruction, not elsewhere classified Benign hypertension Essential hypertension, benign documented in this encounter Administered Medications Inactive Administered Medications - up to 3 most recent administrations Medication Order MAR Action Action Date Dose Rate Site acetaminophen (TYLENOL) tablet 650 mg 650 mg, Oral, EVERY 6 HOURS, First dose on 01/06/22 at 1200, Until Discontinued, Routine Given 01/08/2022 5:26 AM CDT 650 mg Given 01/07/2022 11:37 PM CDT 650 mg Given 01/07/2022 5:46 AM CDT 650 mg albuterol sulfate 90 mcg/Actuation inhaler 2 Puff 2 Puff, Inhalation, EVERY 4 HOURS RESPIRATORY, First dose on Sat12/29/21 at 2030, Until Discontinued, Routine, Previous Med: albuterol sulfate 90 mcg/Actuation inhaler - Orig Sig - Take 2 Puffs by inhalation every 4 hours as needed for Shortness of Breath. Given 01/08/2022 7:00 AM CDT 2 Puffs Given 01/07/2022 11:00 PM CDT 2 Puffs Given 01/07/2022 5:47 AM CDT 2 Puffs ALPRAZolam (XANAX) tablet 1 mg 1 mg, Oral, NIGHTLY PRN, Starting on [facility] 01/04/22 at 1746, Until 01/08/22 at 2020, Anxiety, Routine, Previous Med: ALPRAZolam (XANAX) 1 mg tablet - Orig Sig - Take 1 mg by mouth nightly as needed for Anxiety. Given 01/07/2022 8:23 PM CDT 1 mg Given 01/06/2022 8:25 PM CDT 1 mg Given 01/05/2022 11:24 PM CDT 1 mg aluminum-magnesium hydroxide (MAALOX) 200-200 mg/5 mL oral suspension 30 mL 30 mL, Oral, ONE TIME ONLY, 1 dose, On Sat01/04/22 at 0915, Routine Given 01/04/2022 9:57 AM CDT 30 mL aluminum-magnesium hydroxide (MAALOX) 200-200 mg/5 mL oral suspension 30 mL 30 mL, Oral, ONE TIME ONLY, 1 dose, On Sat01/04/22 at 2000, Routine Given 01/04/2022 9:51 PM CDT 30 mL aluminum-magnesium hydroxide (MAALOX) 200-200 mg/5 mL oral suspension 30 mL 30 mL, Oral, EVERY 4 HOURS, 2 doses, First dose (after last reorder) on Sat01/05/22 at 0815, Last dose on Sat01/05/22 at 1200, Routine Given 01/05/2022 2:08 PM CDT 30 mL Given 01/05/2022 8:28 AM CDT 30 mL aluminum-magnesium hydroxide (MAALOX) 200-200 mg/5 mL oral suspension 30 mL 30 mL, Oral, EVERY 4 HOURS, 2 doses, First dose on [facility] 01/06/22 at 1745, Last dose on [facility] 01/06/22 at 2000, Routine Given 01/06/2022 11:48 PM CDT 30 mL Given 01/06/2022 6:04 PM CDT 30 mL aluminum-magnesium hydroxide (MAALOX) 200-200 mg/5 mL oral suspension 30 mL 30 mL, Oral, ONE TIME ONLY, 1 dose, On [place] 01/07/22 at 0930, Routine Given 01/07/2022 9:56 AM CDT 30 mL amLODIPine (NORVASC) tablet 5 mg 5 mg, Oral, DAILY, First dose on [facility] 01/04/22 at 0900, Until Discontinued, Routine Given 01/08/2022 9:44 AM CDT 5 mg Given 01/07/2022 8:06 AM CDT 5 mg Given 01/06/2022 9:31 AM CDT 5 mg dextrose 5 % in water 250 mL flush bag 25 mL 25 mL, IV, SEE ADMIN INSTRUCTIONS, Starting on Sat01/05/22 at 1533, Until Sat01/08/22 at 2020, Routine diphenhydrAMINE (BENADRYL) injection 12.5 mg 12.5 mg, IV, POST-PROCEDURE Q 4 HOURS PRN, Starting on Sat12/29/21 at 2017, Until Sat01/08/22 at 2020, Itching, Routine, Post-op - Floor enoxaparin (LOVENOX) injection 40 mg 40 mg, subCUT, EVERY 24 HOURS, First dose on Sat01/07/22 at 0930, Until Discontinued, Routine, Indication: Prophylaxis of VTE Given 01/08/2022 9:44 AM CDT 40 mg Abdominal Tissue Given 01/07/2022 9:56 AM CDT 40 mg Ab dominal Tissue fentaNYL PF (SUBLIMAZE) 50 mcg/mL injection 25 mcg 25 mcg, IV, POST-PROCEDURE Q 5 MINUTES PRN, 4 doses, Starting on Sat12/29/21 at 0705, Until Sat12/29/21 at 1958, Pain, Routine, PACU Given 12/29/2021 7:58 PM CDT 25 mcg Given 12/29/2021 7:50 PM CDT 25 mcg Given 12/29/2021 7:45 PM CDT 25 mcg fluticasone furoate-vilanteroL (BREO ELLIPTA) 200-25 mcg/dose inhaler 1 Puff 1 Puff, Inhalation, DAILY RESPIRATORY, First dose on Sat12/30/21 at 0800, Until Discontinued, Routine Given 01/08/2022 9:47 AM CDT 1 Puff Given 01/07/2022 8:07 AM CDT 1 Puff Given 01/06/2022 9:31 AM CDT 1 Puff fluticasone propionate (FLONASE) 50 mcg/spray nasal inhaler 2 [place] 2 [place], Both Nostrils, DAILY PRN, Starting on Sat12/29/21 at 2017, Until Sat01/08/22 at 2020, Allergies, Rhinitis, Routine, Previous Med: fluticasone propionate (FLONASE) 50 mcg/spray [place], Suspension nasal inhaler - Orig Sig - Administer 2 Sprays in each nostril 1 time daily as needed. Given 01/04/2022 9:57 AM CDT 2 Sprays furosemide (LASIX) injection 20 mg 20 mg, IV, ONE TIME ONLY, 1 dose, On Sat12/31/21 at 0900, Routine Given 12/31/2021 8:55 AM CDT 20 mg furosemide (LASIX) injection 20 mg 20 mg, IV, ONE TIME ONLY, 1 dose, On 01/01/22 at 0845, Routine Given 01/01/2022 10:08 AM CDT 20 mg heparin injection 5,000 Units 5,000 Units, subCUT, EVERY 8 HOURS, First dose on Sat12/30/21 at 1200, Until Discontinued, Routine, Post-op - Floor Given 01/07/2022 5:44 AM CDT 5,000 Units Abdominal Tissue Given 01/06/2022 8:27 PM CDT 5,000 Units A bdominal Tissue Given 01/06/2022 12:25 PM CDT 5,000 Units Abdominal Tissue heparin, porcine (pf) 10 unit/mL IV syringe 50-150 Units 50-150 Units, IV, EVERY 12 HOURS, First dose on Sat01/05/22 at 1545, Until Discontinued, Routine Given 01/08/2022 2:57 AM CDT 50 Units Given 01/07/2022 2:49 PM CDT 50 Units Given 01/07/2022 5:43 AM CDT 50 Units heparin, porcine (pf) 10 unit/mL IV syringe 50-150 Units 50-150 Units, IV, SEE ADMIN INSTRUCTIONS, Starting on Sat01/05/22 at 1533, Until Sat01/08/22 at 2020, Routine Given 01/08/2022 12:12 PM CDT 50 Units hydroCHLOROthiazide tablet 25 mg 25 mg, Oral, DAILY, First dose on Sat01/03/22 at 1515, Until Discontinued, Routine Given 01/08/2022 9:44 AM CDT 25 mg Given 01/04/2022 9:57 AM CDT 25 mg Given 01/03/2022 4:42 PM CDT 25 mg HYDROmorphone (DILAUDID) 2 mg/mL injection 0.4 mg 0.4 mg, IV, POST-PROCEDURE Q 5 MINUTES PRN, 10 doses, Starting on Sat12/29/21 at 0705, Until Sat12/29/21 at 2015, Pain, Routine, PACU Given 12/29/2021 6:23 PM CDT 0.4 mg Given 12/29/2021 6:05 PM CDT 0.4 mg HYDROmorphone (PF) (DILAUDID) 20 mcg/mL, ropivacaine (PF) (NAROPIN) 0.0625 % in sodium chloride 0.9% 250 mL EPIDURAL 250 mL, Epidural, at 10 mL/hr, CONTINUOUS, Starting on Sat12/29/21 at 1900, Until Sat01/02/22 at 0744, Intra-op New Bag 01/01/2022 9:40 PM CDT 10 mL/hr New Bag 01/01/2022 12:52 AM CDT 10 mL/hr New Bag 12/31/2021 1:10 AM CDT 10 mL/hr HYDROmorphone (PF) (DILAUDID) 20 mcg/mL, ropivacaine (PF) (NAROPIN) 0.0625 % in sodium chloride 0.9% 250 mL EPIDURAL 250 mL, Epidural, at 10 mL/hr, CONTINUOUS, Starting on Sat01/02/22 at 1100, Until Sat01/03/22 at 1024, Intra-op New Bag 01/03/2022 3:20 AM CDT 10 mL /hr iopamidoL (ISOVUE-300) 61% for oral use (DOSE LESS THAN 200 ML) 100 mL 100 mL, Oral, INTRA-PROCEDURE ONCE, 1 dose, Starting on Sat01/03/22 at 1106, Until Sat01/03/22 at 1106, Routine Contrast Given 01/03/2022 11:06 AM CDT 100 mL lactated ringers infusion IV, at 100 mL/hr, CONTINUOUS, Starting on Sat12/29/21 at 0600, Until Sat12/29/21 at 2017, Routine, Pre-op New Bag 12/29/2021 5:16 PM CDT New Bag 12/29/2021 11:23 AM CDT Restarted 12/29/2021 7:45 AM CDT lactated ringers infusion IV, at 100 mL/hr, CONTINUOUS, Starting on Sat12/29/21 at 2030, Until Sat12/30/21 at 2029, Routine, Post-op - Floor New Bag 12/30/2021 4:32 PM CDT 100 mL/hr New Bag 12/29/2021 8:26 PM CDT 100 mL/hr metoclopramide (REGLAN) 5 mg/mL injection 10 mg 10 mg, IV, POST-PROCEDURE ONCE PRN, 1 dose, Starting on Sat12/29/21 at 2017, Until 12/31/21 at 0006, Nausea/Emesis, Routine, Post-op - Floor Given 12/31/2021 12:06 AM CDT 10 mg metoclopramide (REGLAN) 5 mg/mL injection 10 mg 10 mg, IV, EVERY 6 HOURS, First dose on Sat12/29/21 at 2100, Until Discontinued, Routine Given 01/07/2022 11:3 7 PM CDT 10 mg Given 01/07/2022 5:41 AM CDT 10 mg Given 01/06/2022 11:48 PM CDT 10 mg morphine 4 mg/mL injection 1 mg 1 mg, IV, EVERY 2 HOURS PRN, Starting on Sat12/29/21 at 2251, Until 12/30/21 at 0839, Pain, Routine Given 12/30/2021 5:30 AM CDT 1 mg Given 12/29/2021 11:02 PM CDT 1 mg morphine 4 mg/mL injection 4 mg 4 mg, IV, EVERY 4 HOURS PRN, Starting on 12/30/21 at 0838, Until Sat01/08/22 at 2020, Pain (See admin instructions), Routine Given 01/06/2022 11:48 PM CDT 4 mg Push 01/05/2022 3:34 PM CDT 4 mg Given 01/03/2022 11:53 PM CDT 4 mg nalbuphine (NUBAIN) injection 2.5 mg 2.5 mg, IV, POST-PROCEDURE Q 4 HOURS PRN, 2 doses, Starting on Sat12/29/21 at 2017, Until Sat01/08/22 at 2020, Itching, Routine, Post-op - Floor naloxone (NARCAN) 0.4 mg/mL injection 0.4 mg 0.4 mg, IV, POST-PROCEDURE ONCE PRN, 1 dose, Starting on Sat12/29/21 at 2017, Until 01/08/22 at 2020, Other (See Comment), If respiratory rate is less than 6 breaths per minute or patient is difficult to arouse, Routine, Post-op - Floor ondansetron (ZOFRAN) 4 mg/2 mL injection 4 mg 4 mg, IV, POST-PROCEDURE ONCE PRN, 1 dose, Starting on Sat12/29/21 at 2017, Until Sat01/08/22 at 2020, Nausea/Emesis, Routine, Post-op - Floor ondansetron (ZOFRAN) 4 mg/2 mL injection 4 mg 4 mg, IV, EVERY 6 HOURS PRN, Starting on Sat12/29/21 at 2018, Until Sat01/08/22 at 2020, Nausea/Emesis, Routine, Post-op - Floor Given 01/05/2022 4:02 AM CDT 4 mg Given 01/04/2022 7:51 PM CDT 4 mg Given 01/03/2022 9:25 PM CDT 4 mg oxyCODONE (ROXICODONE) tablet 5 mg 5 mg, Oral, EVERY 6 HOURS PRN, Starting on Sat01/06/22 at 1100, Until Sat01/08/22 at 2020, Pain (See admin instructions), Routine Given 01/07/2022 11:37 PM CDT 5 mg Given 01/07/2022 2:49 PM CDT 5 mg Given 01/06/2022 8:25 PM CDT 5 mg potassium chloride (KLOR-CON) SR tablet 40 mEq 40 mEq, Oral, ONE TIME ONLY, 1 dose, On [facility] 01/04/22 at 0915, Routine Given 01/04/2022 9:57 AM CDT 40 mEq potassium chloride (KLOR-CON) SR tablet 40 mEq 40 mEq, Oral, ONE TIME ONLY, 1 dose, On [place] 01/04/22 at 2000, Routine Given 01/04/2022 10:55 PM CDT 40 mEq potassium chloride (KLOR-CON) SR tablet 40 mEq 40 mEq, Oral, EVERY 4 HOURS, 2 doses, First dose (after last reorder) on Sat01/05/22 at 0815, Last dose on Sat01/05/22 at 1200, Routine Given 01/05/2022 2:08 PM CDT 40 mEq Given 01/05/2022 8:28 AM CDT 40 mEq potassium chloride (KLOR-CON) SR tablet 40 mEq 40 mEq, Oral, EVERY 4 HOURS, 2 doses, First dose on 01/06/22 at 1745, Last dose on [facility] 01/06/22 at 2000, Routine Given 01/06/2022 11:47 PM CDT 40 mEq Given 01/06/2022 6:04 PM CDT 40 mEq potassium chloride (KLOR-CON) SR tablet 40 mEq 40 mEq, Oral, ONE TIME ONLY, 1 dose, On [place] 01/07/22 at 0930, Routine Given 01/07/2022 9:56 AM CDT 40 mEq potassium CHLORIDE 20 mEq/100 mL IVPB 20 mEq 20 mEq, IV, ONE TIME ONLY, 1 dose, On [place] 12/31/21 at 0830, Routine New Bag 12/31/2021 8:57 AM CDT 20 mEq 50 mL/hr potassium CHLORIDE 20 mEq/100 mL IVPB 20 mEq 20 mEq, IV, ONE TIME ONLY, 1 dose, On [place] 12/31/21 at 1030, Routine New Bag 12/31/2021 11:13 AM CDT 20 mEq 50 mL/hr potassium CHLORIDE 20 mEq/100 mL IVPB 20 mEq 20 mEq, IV, ONE TIME ONLY, 1 dose, On Sat01/01/22 at 0845, Routine New Bag 01/01/2022 10:11 AM CDT 20 mEq 50 mL/hr potassium CHLORIDE 20 mEq/100 mL IVPB 20 mEq 20 mEq, IV, ONE TIME ONLY, 1 dose, On Sat01/01/22 at 1045, Routine New Bag 01/01/2022 12:31 PM CDT 20 mEq 50 mL/hr potassium Cl in dextrose 5% - NaCl 0.9% 1,000 mL 20 mEq/L infusion IV, at 40 mL/hr, CONTINUOUS, Starting on 12/30/21 at 1800, Until Sat01/03/22 at 1513, Routine Rate Change 01/03/2022 12:06 PM CDT 40 mL/hr New Bag 01/02/2022 7:40 PM CDT 100 mL/hr New Bag 01/02/2022 5:46 AM CDT 100 mL/hr quinapriL (ACCUPRIL) tablet 40 mg 40 mg, Oral, DAILY, First dose on [facility] 01/04/22 at 0900, Until Discontinued, Routine Given 01/08/2022 9:45 AM CDT 40 mg Given 01/07/2022 8:06 AM CDT 40 mg Given 01/06/2022 9:31 AM CDT 40 mg ropivacaine (PF) (NAROPIN) 0.0625 %, HYDROmorphone (PF) (DILAUDID) 20 mcg/mL in sodium chloride 0.9% 250 mL EPIDURAL 250 mL, Epidural, at 6 mL/hr, CONTINUOUS, Starting on Sat12/29/21 at 0745, Until Sat12/29/21 at 1847, Intra-op New Bag 12/29/2021 6:39 PM CDT 6 mL/hr scopolamine (TRANSDERM-SCOP) 1 mg/72 hr transdermal patch 1 Patch 1 Patch, Transdermal, EVERY 72 HOURS, First dose on [facility] 01/04/22 at 1000, Until Discontinued, Routine Applied 01/04/2022 10:02 AM CDT 1 Patch Ear, Right sertraline (ZOLOFT) tablet 50 mg 50 mg, Oral, DAILY AT BEDTIME, First dose on Sat01/04/22 at 2100, Until Discontinued, Routine, Previous Med: sertraline (ZOLOFT) 50 mg tablet - Orig Sig - Take 50 mg by mouth daily at bedtime. Given 01/07/2022 8:20 PM CDT 50 mg Given 01/06/2022 11:44 PM CDT 50 mg Given 01/05/2022 11:24 PM CDT 50 mg sodium chloride 0.9 % 250 mL flush bag 25 mL 25 mL, IV, SEE ADMIN INSTRUCTIONS, Starting on Sat01/05/22 at 1533, Until Sat01/08/22 at 2020, Routine sodium chloride flush injection 10-30 mL 10-30 mL, IV, EVERY 12 HOURS, First dose on Sat01/05/22 at 1545, Until Discontinued, Routine Given 01/08/2022 2:58 AM CDT 10 mL Given 01/07/2022 2:49 PM CDT 10 mL Given 01/07/2022 5:48 AM CDT 10 mL sodium chloride flush injection 10-30 mL 10-30 mL, IV, SEE ADMIN INSTRUCTIONS, Starting on Sat01/05/22 at 1533, Until Sat01/08/22 at 2020, Routine Given 01/08/2022 12:12 PM CDT 10 mL documented in this encounter Active and Recently Administered Medications Times are shown in CDT. Scheduled Medication Order 01/06/2022 01/07/2022 01/08/2022 acetaminophen (TYLENOL) tablet 650 mg 650 mg, Oral, EVERY 6 HOURS, First dose on Sat01/06/22 at 1200, Until Discontinued, Routine 1117 (Given - Provider: Patrica Smith RN)1800 (Refused - Provider: Patrica Smith RN)2344 (Given - Provider: Stella Chappell, RN) 0546 (Given - Provider: Stella Chappell RN)1200 (Refused - Provider: Patrica Smith RN)1800 (Refused - Provider: Patrica Smith RN)2337 (Given - Provider: Lisandra Alvarenga RN) 0526 (Given - Provider: Lisandra Alvarenga RN)1200 (Due)1800 (Due) albuterol sulfate 90 mcg/Actuation inhaler 2 Puff 2 Puff, Inhalation, EVERY 4 HOURS RESPIRATORY, First dose on Sat12/29/21 at 2030, Until Discontinued, Routine, Previous Med: albuterol sulfate 90 mcg/Actuation inhaler - Orig Sig - Take 2 Puffs by inhalation every 4 hours as needed for Shortness of Breath. 0300 (Refused - Provider: Trinity Lucas RN)0700 (Refused - Provider: Trinity Lucas RN)1100 (Given - Provider: Patrica Smith RN)1500 (Refused - Provider: Patrica Smith RN)1900 (Given - Provider: Stella Chappell, JESSICA)2300 (Refused - Provider: Stella Chappell RN) 0547 (Given - Provider: Stella Chappell, JESSICA)0700 (Not Given - Provider: Patrica Smith RN - Reason: Other - See Comment)1100 (Refused - Provider: Patrica Smith RN)1500 (Refused - Provider: Patrica Smith RN)1900 (Not Given - Provider: Lisandra Alvarenga RN - Reason: Patient asleep)2300 (Given - Provider: Lisandra Alvarenga RN) 0300 (Not Given - Provider: Lisandra Alvarenga RN - Reason: Patient asleep)0700 (Given - Provider: Lisandra Alvarenga RN)1100 (Refused - Provider: Anastacia Jackson RN)1500 (Due) aluminum-magnesium hydroxide (MAALOX) 200-200 mg/5 mL oral suspension 30 mL (COMPLETED) 30 mL, Oral, EVERY 4 HOURS, 2 doses, First dose on 01/06/22 at 1745, Last dose on 01/06/22 at 2000, Routine 1804 (Given - Provider: Patrica Smith RN)2348 (Given - Provider: Stella Chappell, RN) aluminum-magnesium hydroxide (MAALOX) 200-200 mg/5 mL oral suspension 30 mL (COMPLETED) 30 mL, Oral, ONE TIME ONLY, 1 dose, On 01/07/22 at 0930, Routine 0956 (Given - Provider: Patrica Smith RN) amLODIPine (NORVASC) tablet 5 mg 5 mg, Oral, DAILY, First dose on Avani 01/04/22 at 0900, Until Discontinued, Routine 0931 (Given - Provider: Patrica Smith RN) 08 (Given - Provider: Patrica Smith RN) 0944 (Given - Provider: Anastacia Jackson, JESSICA) dextrose 5 % in water 250 mL flush bag 25 mL 25 mL, IV, SEE ADMIN INSTRUCTIONS, Starting on Sat01/05/22 at 1533, Until 01/08/22 at 2020, Routine enoxaparin (LOVENOX) injection 40 mg 40 mg, subCUT, EVERY 24 HOURS, First dose on 01/07/22 at 0930, Until Discontinued, Routine, Indication: Prophylaxis of VTE 0956 (Given - Provider: Patrica Smith RN) 0944 (Given - Provider: Anastacia Jackson, JESSICA) fluticasone furoate-vilanteroL (BREO ELLIPTA) 200-25 mcg/dose inhaler 1 Puff 1 Puff, Inhalation, DAILY RESPIRATORY, First dose on 12/30/21 at 0800, Until Discontinued, Routine 0931 (Given - Provider: Patrica Smith RN) 0807 (Given - Provider: Patrica Smith, RN) 0947 (Given - Provider: Anastacia Jackson, JESSICA) heparin injection 5,000 Units (CANCELED) 5,000 Units, subCUT, EVERY 8 HOURS, First dose on 12/30/21 at 1200, Until Discontinued, Routine, Post-op - Floor 0601 (Given - Provider: Trinity Lucas RN)1225 (Given - Provider: Patrica Smith RN)2026 (Given - Provider: Stella Chappell RN) 0544 (Given - Provider: Stella Chappell RN) heparin, porcine (pf) 10 unit/mL IV syringe 50-150 Units 50-150 Units, IV, EVERY 12 HOURS, First dose on Sat01/05/22 at 1545, Until Discontinued, Routine 0602 (Given - Provider: Trinity Lucas RN)1534 (Given - Provider: Patrica Smith, RN) 0543 (Given - Provider: Stella Chappell, JESSICA)1449 (Given - Provider: Patrica Smith RN) 0257 (Given - Provider: Lisandra Alvarenga, RN)1545 (Due) heparin, porcine (pf) 10 unit/mL IV syringe 50-150 Units 50-150 Units, IV, SEE ADMIN INSTRUCTIONS, Starting on Sat01/05/22 at 1533, Until Sat01/08/22 at 2021, Routine 1212 (Given - Provider: Anastacia Jackson RN) hydroCHLOROthiazide tablet 25 mg 25 mg, Oral, DAILY, First dose on Sat01/03/22 at 1515, Until Discontinued, Routine 0900 (Automatically Held - Provider: Thelma Ken MD) 0900 (Automatically Held - Provider: Thelma Ken MD)0917 (Order Unhold - Provider: Thelma Ken MD) 0944 (Given - Provider: Anastacia Jackson, JESSICA) metoclopramide (REGLAN) 5 mg/mL injection 10 mg 10 mg, IV, EVERY 6 HOURS, First dose on Sat12/29/21 at 2100, Until Discontinued, Routine 0533 (Given - Provider: Maria L Morales RN)1116 (Given - Provider: Patrica Smith, JESSICA)1800 (Refused - Provider: Patrica Smith RN)2348 (Given - Provider: Stella Chappell, JESSICA) 0541 (Given - Provider: Stella Chappell, RN)1200 (Refused - Provider: Patrica Smith, JESSICA)1800 (Refused - Provider: Patrica Smith, JESSICA)2337 (Given - Provider: Lisandra Alvarenga, RN) 0600 (Refused - Provider: Lisandra Alvarenga, JESSICA)1200 (Due)1800 (Due) naloxone (NARCAN) 0.4 mg/mL injection 0.1 mg 0.1 mg, IV, SEE ADMIN INSTRUCTIONS, Starting on Sat12/29/21 at 2018, Until Sat01/08/22 at 2020, Routine, Post-op - Floor potassium chloride (KLOR-CON) SR tablet 40 mEq (COMPLETED) 40 mEq, Oral, EVERY 4 HOURS, 2 doses, First dose on 01/06/22 at 1745, Last dose on 01/06/22 at 2000, Routine 1804 (Given - Provider: Patrica Smith RN)2347 (Given - Provider: Stella Chappell RN) potassium chloride (KLOR-CON) SR tablet 40 mEq (COMPLETED) 40 mEq, Oral, ONE TIME ONLY, 1 dose, On 01/07/22 at 0930, Routine 0956 (Given - Provider: Patrica Smith RN) quinapriL (ACCUPRIL) tablet 40 mg 40 mg, Oral, DAILY, First dose on Avani 01/04/22 at 0900, Until Discontinued, Routine 0931 (Given - Provider: Patrica Smith RN) 0806 (Given - Provider: Patrica Smith RN) 0945 (Given - Provider: Anastacia Jackson RN) scopolamine (TRANSDERM-SCOP) 1 mg/72 hr transdermal patch 1 Patch 1 Patch, Transdermal, EVERY 72 HOURS, First dose on Avani 01/04/22 at 1000, Until Discontinued, Routine 0959 (Removed - Provider: Patrica Smith RN)1000 (Refused - Provider: Patrica Smith RN) sertraline (ZOLOFT) tablet 50 mg 50 mg, Oral, DAILY AT BEDTIME, First dose on Avani 01/04/22 at 2100, Until Discontinued, Routine, Previous Med: sertraline (ZOLOFT) 50 mg tablet - Orig Sig - Take 50 mg by mouth daily at bedtime. 2344 (Given - Provider: Stella Chappell, JESSICA) 2019 (Given - Provider: Lisandra Alvarenga RN) sodium chloride 0.9 % 250 mL flush bag 25 mL 25 mL, IV, SEE ADMIN INSTRUCTIONS, Starting on Sat01/05/22 at 1533, Until Sat01/08/22 at 2020, Routine sodium chloride flush injection 10-30 mL 10-30 mL, IV, EVERY 12 HOURS, First dose on Sat01/05/22 at 1545, Until Discontinued, Routine 0604 (Given - Provider: Trinity Lucas RN)1534 (Given - Provider: Patrica Smith RN) 0575 (Given - Provider: Stella Chappell RN)1449 (Given - Provider: Patrica Smith RN) 0258 (Given - Provider: Lisandra Alvarenga, JESSICA)1545 (Due) sodium chloride flush injection 10-30 mL 10-30 mL, IV, SEE ADMIN INSTRUCTIONS, Starting on Sat01/05/22 at 1533, Until Sat01/08/22 at 2020, Routine 1212 (Given - Provider: Anastacia Jackson RN) Continuous Medication Order 01/06/2022 01/07/2022 01/08/2022 HYDROmorphone (PF) (DILAUDID) 20 mcg/mL, ropivacaine (PF) (NAROPIN) 0.0625 % in sodium chloride 0.9% 250 mL EPIDURAL 250 mL, Epidural, at 10 mL/hr, CONTINUOUS, Starting on Sat12/29/21 at 1900, Until Sat01/02/22 at 0744, Intra-op PRN Medication Order 01/06/2022 01/07/2022 01/08/2022 ALPRAZolam (XANAX) tablet 1 mg 1 mg, Oral, NIGHTLY PRN, Starting on Sat01/04/22 at 1746, Until Sat01/08/22 at 2020, Anxiety, Routine, Previous Med: ALPRAZolam (XANAX) 1 mg tablet - Orig Sig - Take 1 mg by mouth nightly as needed for Anxiety. 2024 (Given - Provider: Stella Chappell RN) 2022 (Given - Provider: Lisandra Alvarenga, JESSICA) diphenhydrAMINE (BENADRYL) injection 12.5 mg 12.5 mg, IV, POST-PROCEDURE Q 4 HOURS PRN, Starting on Sat12/29/21 at 2017, Until Sat01/08/22 at 2020, Itching, Routine, Post-op - Floor fluticasone propionate (FLONASE) 50 mcg/spray nasal inhaler 2 [place] 2 [place], Both Nostrils, DAILY PRN, Starting on Sat12/29/21 at 2017, Until Sat01/08/22 at 2020, Allergies, Rhinitis, Routine, Previous Med: fluticasone propionate (FLONASE) 50 mcg/spray [place], Suspension nasal inhaler - Orig Sig - Administer 2 Sprays in each nostril 1 time daily as needed. morphine 4 mg/mL injection 4 mg 4 mg, IV, EVERY 4 HOURS PRN, Starting on 12/30/21 at 0838, Until Sat01/08/22 at 2020, Pain (See admin instructions), Routine 2348 (Given - Provider: Stella Chappell RN) nalbuphine (NUBAIN) injection 2.5 mg 2.5 mg, IV, POST-PROCEDURE Q 4 HOURS PRN, 2 doses, Starting on Sat12/29/21 at 2017, Until Sat01/08/22 at 2020, Itching, Routine, Post-op - Floor naloxone (NARCAN) 0.4 mg/mL injection 0.4 mg 0.4 mg, IV, POST-PROCEDURE ONCE PRN, 1 dose, Starting on Sat12/29/21 at 2017, Until Sat01/08/22 at 2020, Other (See Comment), If respiratory rate is less than 6 breaths per minute or patient is difficult to arouse, Routine, Post-op - Floor ondansetron (ZOFRAN) 4 mg/2 mL injection 4 mg 4 mg, IV, POST-PROCEDURE ONCE PRN, 1 dose, Starting on Sat12/29/21 at 2017, Until Sat01/08/22 at 2020, Nausea/Emesis, Routine, Post-op - Floor ondansetron (ZOFRAN) 4 mg/2 mL injection 4 mg 4 mg, IV, EVERY 6 HOURS PRN, Starting on Sat12/29/21 at 2018, Until Sat01/08/22 at 2020, Nausea/Emesis, Routine, Post-op - Floor oxyCODONE (ROXICODONE) tablet 5 mg 5 mg, Oral, EVERY 6 HOURS PRN, Starting on Sat01/06/22 at 1100, Until Sat01/08/22 at 2020, Pain (See admin instructions), Routine 1117 (Given - Provider: Patrica Smith RN)2025 (Given - Provider: Stella Chappell RN) 0535 (Return to Cabinet - Provider: Stella Chappell RN)1449 (Given - Provider: Patrica Smith RN)2337 (Given - Provider: Lisandra Alvarenga RN) documented in this encounter Care Teams [employer] Management Professor Relationship Specialty Start Date End Date Rosibel Muse MD PCP - General Family Practice 05/24/21 05/06/24 documented as of this encounter
--- OUTSIDE RECORDS SUMMARY | 2024-08-17 09:03 | XMS_ITS | Encounter Summary ---
Author Organization [facility] nVoq [facility] Address [address] [place] [address] Care Team Providers Care Instructor Dramatic Arts Name Role Phone Rosibel Muse MD Primary Care Provider [phone] Encounter Details Date Type Department Care Team (Late Contact Info) Description 01/01/2022 Orders Only [facility] Oncology and Hematology - [place] [address] [facility] [address] [place] [address] Royal Newell MD [address] [facility] [address] [place] [address] Iron deficiency anemia, unspecified iron [...] (Late Contact Info) Description 08/25/2024 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 [facility] Oncology and Hematology - [place] [address] [facility] [address] [place] [address] Royal Newell MD [address] [facility] [address] [place] [address] documented as of this encounter Visit Diagnoses Diagnosis Iron deficiency anemia, unspecified iron deficiency anemia type 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
--- OUTSIDE RECORDS SUMMARY | 2024-08-17 09:04 | XMS_ITS | Encounter Summary ---
Author Organization [facility] Address [address] [place] [address] Care Team Providers Care Head Athletic Trainer/Strength Coach Name Role Phone Rosibel Muse MD Primary Care Provider [phone] Reason for Visit * Reason Comments Establish Care Encounter Details Date Type Department Care Team (Late st Contact Info) Description 12/07/2021 3:30 PM CDT Office Visit [facility] [address] [facility] [address] [place] [address] [place] [address] [facility] [address] [place] [address] Primary cancer of ampulla of [...] suspected to have Coronavirus/COVID-19? No / Unsure 12/14/2021 3:09 PM CDT documented as of this encounter Last Filed Vital Signs Vital Sign Reading Time Taken Comments Blood Pressure 124/80 12/07/2021 3:28 PM CDT Pulse 101 12/07/2021 3:28 PM CDT Temperature 36.5 ??C (97.7 ??F) 12/07/2021 3:28 PM CD T Respiratory Rate - - Oxygen Saturation 96% 12/07/2021 3:28 PM CDT Inhaled Oxygen Concentration - - Weight 66.2 kg (146 lb) 12/07/2021 3:28 PM CDT Height 157.5 cm (5' 2 ) 12/07/2021 3:28 PM CDT Body Mass Index 26.7 12/07/2021 3:28 PM CDT documented in this encounter Progress Notes * Phil Mejia MD - 12/07/2021 3:55 PM CDT Images from the original note were not included. HISTORY OF PRESENT ILLNESS Krissy Oneal is a 66 y.o. female presents with chief complaint of Establish Care Subjective Interval history 12/07/21 Krissy returns today as a routine follow up [...] emergency room. While there, she underwent work-up which included imaging and identified a mass of the [...] the procedure. This was performed for uterine fi broids. REVIEW OF SYSTEMS Review of Systems Constitutional: Positive for appetite change, fatigue and unexpected weight change. Negative for chills and fever. HENT: Negative for trouble swallowing and voice change. Respiratory: Negative for chest tightness, cough and shortness of breath. Cardiovascular: Negative for chest pain, leg swelling and palpitations. Gastrointestinal: Positive for nausea and vomiting. Negative for abdominal pain, constipation and diarrhea. Past Medical History: Diagnosis Date ??? Asthma ??? COPD (chronic obstructive pulmonary disease) pt. denies ??? HTN (hypertension) ??? Hyperlipidemia ??? Hyperthyroidism goiter as a achild ??? Latex sensitivity kiwi ??? Malignant neoplasm pancreas ??? Obstructive sleep apnea CPAP- no longer using didn't work ??? Psychiatric disorder Past Surgical History: Procedure Laterality Date ??? HX ERCP N/A 05/25/2021 CHOLANGIOPANCREATOGRAPHY RETROGRADE ENDOSCOPIC performed by Omar Gonzalez MD at [facility] ??? HX ERCP 05/2021 at [facility] ??? HX HEART CATHETERIZATION ??? [...] Types: Cigarettes Quit date: 08/12/2003 Years since quittin.3 ??? Smokeless tobacco: Never Used Vaping Use [...] Puffs, Inhalation, TWO TIMES DAILY PRN ??? Ciclesonide (Alvesco) 160 mcg/actuation HFA Aerosol Inhaler TWO TIMES DAILY ??? flu vaccine quadrivalent 2020-,65 yr+,,PF, (Fluzone HighDose Quad 20-21 PF) 240 mcg/0.7 mL Syringe syringe Fluzone High-Dose Quad (PF) 240 mcg/0.7 mL IM syringe ??? fluticasone propionate (FLONASE) 50 mcg/spray [place], Suspension nasal inhaler 2 Sprays, Both Nostrils, DAILY PRN ??? hydroCHLOROthiazide 37.5 mg, Oral, DAILY, Takes 1 1/2 tablets ??? HYDROcodone-acetaminophen (NORCO) 10-325 mg Tablet 1 Tablet, Oral, EVERY 6 HOURS PRN, hydrocodone 10 mg-acetaminophen 325 mg tablet ??? ibuprofen (MOTRIN) 800 mg, Oral, EVERY 8 HOURS PRN ??? iron,carb/vit C/vit B12/folic (IRON 100 PLUS ORAL) 100 mg, Oral, DAILY, liquid ??? lidocaine-prilocaine (EMLA) 2.5-2.5 % Cream Apply to port site 45-60 mins prior to use daily orprn, cover with plastic wrap ??? naloxone (NARCAN) 4 mg/spray [place], Non-Aerosol EMERGENCY USE ONLY: Administer 1 spray (4 mg) in one nostril one time. May repeat in alternating nostrils every 2-3 min until responsive or EMS arrives. ??? ondansetron (ZOFRAN ODT) 8 mg Tablet, Rapid Dissolve Dissolve 1 tablet on top of tongue then swallow with saliva every 8 hours as needed for nausea or vomiting ??? ondansetron (ZOFRAN) 8 mg Tablet No dose, route, or frequency recorded. ??? pantoprazole (PROTONIX) 40 mg Tablet, Delayed Release (E.C.) TAKE 1 TABLET BY MOUTH AT BEDTIME FOR 4 WEEKS ??? potassium chloride (KLOR-CON) 20 mEq Extended Release tablet 20 mEq, Oral, DAILY ??? predniSONE (DELTASONE) 50 mg tablet TAKE 1 TABLET 12 HOURS BEFORE, 6 HOURS BEFORE AND [address] SCAN ??? prochlorperazine maleate (COMPAZINE) 10 mg, Oral, EVERY 6 HOURS PRN ??? quinapriL (ACCUPRIL) 80 mg, Oral, DAILY [...] ??? Penicillins Itching Objective PHYSICAL EXAM Vitals: 12/07/21 1528 BP: 124/80 Pulse: (!) 101 Temp: 97.7 ??F (36.5 ??C) SpO2: 96% Physical Exam Vitals reviewed. [...] cancer of ampulla of Vater C24.1 156.2 Mrs. Oneal had a lengthy discussion with me about the nature of ampullary cancer, including the etiology, presentation, workup, treatment strategies, and expected outcomes. Specifically, we also discussed that she is an excellent candidate for pylorus preserving pancreaticoduodenectomy as a curative option for her disease. All relevant risks and benefits of the procedure were covered in detail for her, and surgical consent was obtained in the office today. All of her insightful questions were answered to her satisfaction. Thank you for the opportunity to provide this surgical consultation to January, and I look forward to my continued participation in her care. in kind regards, Phil Mejia MD, FACS, [facility] Surgical Oncology and Endocrine Surgery [facility] Total Time: 60 minutes, over 50 of which were spent in direct conversation and the remainder spent in preparation for today's visit. documented in this encounter Plan of Treatment Upcoming Encounters Date Type Department Care Team (Late st Contact Info) Description 08/25/2024 2:00 PM IVORY CARVER Office Visit [facility] On[facility] and Hematology - [place] [address] [facility] [address] [place] [address] Royal Newell MD [address] [facility] [address] [place] [address] documented as of this encounter Visit Diagnoses Diagnosis Primary cancer of ampulla of Vater- Primary documented in this encounter Care Teams Head Athletic Trainer/Strength Coach Relationship Specialty Start Date End Date Rosibel Muse MD PCP - General Family Practice 05/24/21 05/06/24 documented as of this encounter
--- OUTSIDE RECORDS SUMMARY | 2024-08-17 09:04 | XMS_ITS | Encounter Summary ---
Author Organization [facility] Address [address] [place] [address] Care Team Providers Care Tile Molder Hand Name Role Phone Rosibel Muse MD Primary Care Provider [phone] Reason for Visit * Reason Comments Follow Up 3 week f/u * Eval and Treat (Routine) - Closed Specialty Diagnoses / Procedures Referred By Contgabrielal t Referred To Contact Oncology Diagnoses Malignant neoplasm of ampulla of Vater (CMS/HCC) Procedures Office Visit 3-5 Nancy Ashford MD [address] [place] [phone] [facility] Oncology And Hematology [place] [address] [place] [address] Referral ID Status Reason Start Date Expiration Date Visits Re quested Visits Authorized [id number] Closed 08/24/2021 02/20/2022 12 12 Encounter Details Date Type Department Care Team (Late st Contact Info) Description 12/14/2021 3:30 PM CDT Office Visit [facility] Oncology and Hematology - [place] [address] [place] [address] [place] [address] [place] [address] [address] [place] [address] Malignant neoplasm of ampulla of Vater (Primary Dx) Social [...] Sign Reading Time Taken Comments Blood Pressure 117/74 12/14/2021 3:25 PM CDT Pulse 90 12/14/2021 3:25 PM CDT Temperature 36.6 ??C (97.8 ??F) 12/14/2021 3:25 PM CD T Respiratory Rate - - Oxygen Saturation 99% 12/14/2021 3:25 PM CDT Inhaled Oxygen Concentration - - Weight 67.4 kg (148 lb 8 oz) 12/14/2021 3:25 PM CDT Height 157.5 cm (5' 2 ) 12/14/2021 3:25 PM CDT Body Mass Index 27.16 12/14/2021 3:25 PM CDT documented in this encounter Progress Notes * Royal Newell MD - 12/14/2021 5:30 PM CDT HEMATOLOGY / ONCOLOGY PROGRESS NOTE [...] taken. Pathology came back positive for gastritis. [facility] where she had EUS and ERCP done with Dr. Medeiros. 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 Neoadjuvant chemotherapy with modified FOLFIRINOX regimen started 07/11/2021. Received cycle 8/8 onOctober 31, 2021 with 20% dose reduction due to toxicity. SUBJECTIVE Patient came into the office for follow-up visit after the MRI was performed. She is feeling much better and claimed that she is almost feeling back to normal. Denies any abdominal pain. Denies any neuropathy. She has been gaining weight. No other new complaints. Review of system Constitutional: denies fevers, sweats, 2 pound weight gain with improvement in tiredness [...] denies blurry or disturbed vision, denies any neuropathy Skin: No lumps, bumps or rashes. [...] as above ECOG performance status 1 [facility] Labs from May 30 showed WBC [...] hemoglobin 12.8 platelet 200,000 CA 19-9 15 Assessment: Plan: Patient Active Problem List Diagnosis Date Noted ??? Bacteremia due to Klebsiella pneumoniae 05/29/2021 [...] duodenum without evidence of distant metastasis. Patient was evaluated by Dr. Ken and surgery. Recommendation was made for neoadjuvant chemotherapy. Patient started neoadjuvant chemotherapy with modified FOLFIRINOX regimen on July 11. Completed cycle 8/8 with 20% dose reduction on October 31, 2021. MR MRCP done on November 30 showed resolution of previously seen mass at the ampulla Vater with no evidence of residual or metastatic disease. Patient is going to have Whipple's procedure in 2 weeks. I will see her back in 4 weeks. Anemia. Hemoglobin now is normal. She will continue iron and vitamin B12. History of elevated liver enzymes status post pancreatic stent placement. Stable. TOBACCO COUNSELING She is not a tobacco user. 12/14/2021 Royal Newell MD documented in this encounter Plan of Treatment Upcoming Encounters Date Type Department Care Team (Late st Contact Info) Description 08/25/2024 2:00 PM JUNIOR TECHNICAL WRITER Office Visit [facility] Oncology and Hematology [facility] [address] [place] [address] Royal Newell MD [address] [facility] [address] [place] [address] Scheduled Orders Name Type Priority Associated Diagnoses Orde r Schedule COMPREHENSIVE METABOLIC PANEL Lab Stat Malignant neoplasm of ampulla of Vater Expected: 01/11/2022, Expires: 12/14/2022 CBC WITH DIFFERENTIAL Lab Stat Malignant neoplasm of ampulla of Vater Expected: 01/11/2022, Expires: 12/14/2022 documented as of this encounter Visit Diagnoses Diagnosis 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
--- OUTSIDE RECORDS SUMMARY | 2024-08-17 09:04 | XMS_ITS | Encounter Summary ---
Author Organization [facility] Address [address] [place] [address] Care Team Providers Care Weasand Trimmer Name Role Phone Rosibel Muse MD Primary Care Provider [phone] Reason for Visit * Auth/Cert Specialty Diagnoses / Procedures Referred By Contac t Referred To Contact Diagnoses PANCREATIC CYST Procedures MD PART REMV PANC,PROX+REMV [place] [id number] [facility] [address] [place] [address] Referral ID Status Reason Start Date Expiration Date Visits Re quested Visits Authorized [id number] 12/08/2021 1 1 Encounter Details Date Type Department Care Team (Latest Contact Info) Description 12/29/2021 7:30 AM CDT - 12/29/2021 4:00 PM CDT Surgery [facility] Operating Room [address] [place] [address] [place] [id number] [facility] [address] [place] [address] DIAGNOSTIC LAPAROSCOPY , EXPLORATORY LAPROTOMY PANCREATICODUODENECTOMY (WHIPPLE PROCEDURE) Surgery Details Date/Time Status Location OR Service Patient Class Case Class Case Type Trauma Case? 12/29/2021 7:30 AM Posted [facility] OR OR 19 General Surgery Surgery Admit Elective No Panel 1 Procedure LRB Anes Op Region Wound Class Comments DIAGNOSTIC LAPAROSCOPY , EXP LORATORY LAPROTOMY PANCREATICODUODENECTOMY (WHIPPLE PROCEDURE) N/A General Abdomen Clean Contaminated-II Surgeon Surgeon Role Service Panel Thelma Ken MD Primary General Surgery [address] CAMERON 8 HRS FOR CASE. PT'S INSURANCE [facility] MEDICARE ADVANTAGE / MEDICAID OF [place]LL. ETELVINA'D PER PATTI Pt. has KIWI allergy- denies Latex allergy. PROC CARD UPDATED PER Tio Jaquez NOTIFIED RACHEL / RICKY CARTS OF CHANGE. documented in this encounter Social History Tobacco [...] Sign Reading Time Taken Comments Blood Pressure 120/74 12/29/2021 6:31 AM CDT Pulse 72 12/29/2021 6:31 AM CDT Temperature 36.3 ??C (97.3 ??F) 12/29/2021 6:31 AM CD T Respiratory Rate 18 12/29/2021 6:31 AM CDT Oxygen Saturation 99% 12/29/2021 6:31 AM CDT Inhaled Oxygen Concentration - - Weight 67.3 kg (148 lb 6.4 oz) 12/29/2021 6:31 A M CDT Height - - Body Mass Index 28.24 01/04/2022 7:28 PM CDT documented in this encounter Discharge Summaries * Thelma Ken MD - 01/07/2022 9:00 AM CDT Surgical Discharge Summary Patient Name Krissy Dillon Age 66 y.o. Gender female Date of 1955 CSN [id number] Attending Physician No att. providers found Discharging [...] home health for her discharge over the weekend, but this was not possible. Additionally she began leaking some serous fluid from her midline incision for which a close suction wound VAC product was placed to control the drainage. She was discharged on this in good condition on Saturday, january 08. Problems Addressed (Secondary Diagnoses): Active [...] 56 Tablet Refills: 0 naloxone 4 mg/spray Dulac, Non-Aerosol Commonly known as: NARCAN EMERGENCY USE [...] needed. Refills: 0 fluticasone propionate 50 mcg/spray [place], Suspension nasal inhaler Commonly known as: FLONASE [...] Your Medications These medications were sent to [facility] [place] [address] Hours: Saturday - Saturday 7AM - 8PM. Saturday - Saturday 9AM - 7PM ?? acetaminophen 325 mg tablet ?? naloxone 4 mg/spray Dulac, Non-Aerosol ?? oxyCODONE 5 mg tablet Discharged [...] encounter Discharge Instructions * Discharge Instructions* Anastacia Jackson, RN - 01/08/2022 11:14 AM CDT PRESCRIPTIONS [...] through Care Everywhere. * Surgical Drain Care (Tunisian) documented in this encounter Medications at Time of Discharge Medication Sig Dispensed Refills Start Date End Date naloxone (NARCAN) 4 mg/spray Dulac, Non-Aerosol EMERGENCY USE ONLY: Administer 1 spray [...] for Anxiety. fluticasone propionate (FLONASE) 50 mcg/spray Dulac, Suspension nasal inhaler Administer 2 Sprays in [...] LOPEZ, pt will be going to room 2119. * Thelma Ken MD - 01/04/2022 9:22 AM CDT Surgical Oncology Daily Progress Note - 01/04/2022 Subjective: Patient feels good today, though had some nausea and vomiting overnight. She thinks she took the liquids too quickly. Feeling better this morning. Had two large, loose bowel movements overnight. Wants to talk. Practicing incentive spirometry to ~1,000ml. Objective: Vitals: 01/03/22199901/04/22 0008 01/04/22 0400 01/04/22 0823 BP: (!) [...] Supine Sitting Pulse: 100 99 86 Resp: 16 20 Temp: 98.9 ??F (37.2 ??C) [...] examined by Dr. Dr Tejeda Epidural Day: 5 Patient Name: Krissy Dillon [...] Shafer RN 01/02/2022 9:49 AM * Ammy Avalos RN - 01/02/2022 2:56 AM CDT [id number] received from JOSE Angel. Pt in bed alert and awake, on NC 3.5L, no signs of acute distress. Pt has an NGT for gastric content aspiration. Has ropivacaine and KCL infusion. VSS, pain assessed, toileting addressed, call light within reach and bed alarm activated. * Crystal Mahan - 01/01/2022 10:45 AM CDT Pastoral Care Note Parachute Cushion Installer: CRYSTAL MAHAN Patient: Krissy Dillon RM: 6302/01 Anabaptist: Druze Referral (BPA) Routine, initial visit Parachute Cushion Installer found patient awake and propped up in bed. Her daughter was nearby. Patient has a very positive outlook and stated that she is feeling good today. Parachute Cushion Installer introduced the pastoral services to patient and let her know how to reach a bulk system operator. Parachute Cushion Installer will remain available at X [phone]. * Thelma Ken MD - 01/01/2022 8:30 [...] 112 (!) 101 (!) 102 93 Resp: 19 17 18 20 Temp: 98.6 ??F (37 ??C) 98 ??F [...] appropriate - Lasix to promote diuresis (holding PUPPET MAKER HCTZ due to NPO status) - K+ replacement attendant to lasix - Marroquin to remain until epidural removed [...] Clark Epidural Day: 2 Patient Name: Krissy Leonid Dillon SUBJECTIVE: Pruritus No; N/VNo; slept well [...] (!) 114 (!) 111 (!) 103 Resp: Temp: 97.7 ??F (36.5 ??C) 98.5 ??F [...] Ken MD - 12/29/2021 5:52 PM CDT [facility] OPERATIVE REPORT - [id number] Date of Procedure: 12/29/2021 Name: Krissy Dillon : 1955 Sex: Female Admit Date: 12/29/2021 Admitting Physician: THELMA KEN Attending Physician: THELMA KEN Proceduralist/Surgeon: THELMA KEN PRE-OPERATIVE DIAGNOSES: Neoplasm of pancreas Malignant; Head POST-OPERATIVE DIAGNOSES: Neoplasm of pancreas Malignant; Head Location: PROCEDURES PERFORMED: Diagnostic laparoscopy; abdomen, peritoneum, pelvis and omentum Whipple; proximal subtotal pancreatectomy with near-total duodenectomy, choledochoenterostomy and duodenojejunostomy with Pancreatojejunostomy ASSISTANTS: Predatory Animal Trapper - SABIHA MEADE Predatory Animal Trapper - CONRADO NELSON Predatory Animal Trapper - KIT MELGAR ESTIMATED BLOOD LOSS: 400 [...] superior mesenteric vein to the point roughly residential across the gland. We then advanced to [...] precision Bovie coagulation. The handle of a Peppercoin forcep was placed underneath the neck of [...] mucosal apposition on the enterotomy. A 5 Emirati pediatric feeding tube was advanced into the [...] running 5-0 PDS suture and a 10 Emirati biliary stent. Finally an antecolic duodenal jejunal anastomosis was created in an end-to-side fashion using a running 3-0 Polysorb full-thickness layer and finished with interrupted 3-0 silk imbricating sutures circumferentially. The abdomen was copiously irrigated, 19 Emirati fully fluted drains were placed above and [...] in good condition to the recovery room. [id number] by THELMA KEN MD, 12/29/2021 17:52 CDT (Approved) Created in [facility] * Ana-OP - Yessenia Serrato RN - 12/11/2021 1:21 PM CDT Screening Call for upcoming surgery, if needed a Pre-Surgical Assessment appointment will be made. This RN has verified the following: Name, Date of , Surgery (in their own words)? Yes PCP :Yes, IF YES - VERIFY CORRECT PCP UNDER CARE TEAMS if no, gave patient referral line [phone] Surgery Manager: YES, IF YES - VERIFY CORRECT VISION IMPAIRED TEACHER UNDER CARE TEAMS Labs in the past 30 days? Yes if yes, date/location: 12/01/21 CMP from [facility] in Lab tab of [facility] [...] CIED Form sent: NO Any Surgery at [facility] (no other locations) in the past 12 months? No, any anesthesia complications (ie:malignant hyperthermia, and/or coded r/t anesthesia)? N/A Halfway patient: No, if yes, facility name and phone number: Are you currently experiencing any COVID19 s/s, or have you had a known exposure? No, if yes, COVIDPCR TEST ordered and scheduled? N/A Rides Attendant Needed: No, if yes, Rides Attendant Info Noted in Case Entry, under Additional [...] had Chemotherapy- not sure would havebeen at [facility] in [place], [place] TB Screen: Complete the TB screening [...] Welfare & Drain Check. Patient resides in [facility] multiple home care referrals made, however likely discharge barrier today Due to the Holiday. Pt's nurse made aware of same. 01/10/22: 1415 ?? Home Care Referral made to Home Care, SW spoke to Jj in intake , stated no nursing availability until Saturday or Saturday of next week, SW confirmed with Patti with [facility] that is acceptable. 01/11/22: 1000 VIELKA spoke to Jj with Home Health, she stated Home Care Referral has been accepted, start of care Tuesday 01/16 or Wednesday 01/17 VIELKA spoke to Patti with [facility] making heraware of same, she stated patient has an appointment in the office today and she will inform patient of aforementioned. FRANTZ [employer] [facility] Ext. [phone] * Care Plan - Jillian Hawkins MSW - 01/08/2022 11:54 AM CDT D/C Orders Noted: Home Care, RN for Welfare & Drain Check. Patient resides in [facility] multiple home care referrals made, however likely discharge barrier today Due to the Holiday. Pt's nurse made aware of same. FRANTZ [employer] [facility] Care Management Ext. [phone] Day 1 - Current ([facility]: Adult and Obstetrics) Patient, family, or [...] aware. * Care Plan - Lorri Segal, Medical Pathologist - 01/08/2022 9:37 AM CDT Problem: Self-Care [...] ENDOSCOPIC performed by Omar Gonzalez MD at [facility] HX ERCP 05/2021 at [facility] HX HEART CATHETERIZATION HX HYSTERECTOMY HX PANCREATICODUODENECTOMY N/A 12/29/2021 DIAGNOSTIC LAPAROSCOPY , EXPLORATORY LAPROTOMY PANCREATICODUODENECTOMY (WHIPPLE PROCEDURE) performed by Thelma Ken MD at [facility] OR HX PARTIAL THYROIDECTOMY goiter at age 8 y/o HX PORTACATH PLACEMENT HX SINUS SURGERY x 2 HX SPINAL SURGERY cervical laminectomy HX TUBAL LIGATION MD EDG US EXAM SURGICAL ALTER STOM DUODENUM/JEJUNUM N/A 05/25/2021 ULTRASOUND ENDOSCOPIC performed by Omar Gonzalez MD at [facility] MD ESOPHAGOGASTRODUODENOSCOPY TRANSORAL DIAGNOSTIC N/A 05/25/2021 ESOPHAGOGASTRODUODENOSCOPY performed by Omar Gonzalez MD at [facility] Subjective Subjective: Pt agreed to therapy Pain Level: Patient reports 0/10 pain. Objective: Cognition: Ox4 Level of alertness: alert/responsive Command follow: Follows commands appropriately Safety judgment: intact FUNCTIONAL ACTIVITIES ASSESSMENT: ADLs Grooming/Hygiene: Pt reports having completed grooming tasks this morning Upper Extremity Dressing: supervision with off/ke gown while seated in recliner/chair Lower Extremity [...] report this shift. * Care Plan - Thuy James RD - 01/05/2022 1:10 PM CDT Medical [...] Breakdown: abdomen incision, drains Matt Score: 17 (01/04/22 195) Food Allergies: kiwi Subcutaneous Fat Assessment Orbital: [...] (most recent): No results found for: HGBA1C, [id number] Thuy James, RD, LD Time spent: 15 minutes * Care Plan - Anastacia Jackson, RN - 01/05/2022 12:53 PM CDT 1100- [...] Ken. Per Dr. Ken, pt will need [facility] for planned DC tomorrow;care management (November) made aware/added to conversation with Dr. Ken for facilitation of communication/DC planning. 1323- Charge nurse (Toya) at bedside to access port. 1355- booking supervisor to attempt port access/IV access. 1535- Pt states abd site drained some blood tinged drainage and she cleaned it up. Dr. Ken messaged/made aware. * Care Plan - Renetta Pineda, Commercial Decorator - 01/05/2022 11:08 AM CDT Problem: Physical [...] ENDOSCOPIC performed by Omar Gonzalez MD at [facility] HX ERCP 05/2021 at [facility] HX HEART CATHETERIZATION HX HYSTERECTOMY HX PARTIAL THYROIDECTOMY goiter at age 8 y/o HX PORTACATH PLACEMENT HX SINUS SURGERY x 2 HX SPINAL SURGERY cervical laminectomy HX TUBAL LIGATION MD EDG US EXAM SURGICAL ALTER STOM DUODENUM/JEJUNUM N/A 05/25/2021 ULTRASOUND ENDOSCOPIC performed by Omar Gonzalez MD at [facility] MD ESOPHAGOGASTRODUODENOSCOPY TRANSORAL DIAGNOSTIC N/A 05/25/2021 ESOPHAGOGASTRODUODENOSCOPY performed by Omar Gonzalez MD at [facility] Subjective Subjective: Pt agreed to [...] assessment and patient???s current status. Renetta Pineda PUPPET MAKER [id number] * Care Plan - Akilah Champagne [...] shift. * Care Plan - Renetta Pineda, Commercial Decorator - 01/04/2022 3:23 PM CDT Problem: Physical [...] ENDOSCOPIC performed by Omar Gonzalez MD at [facility] HX ERCP 05/2021 at [facility] HX HEART CATHETERIZATION HX HYSTERECTOMY HX PARTIAL THYROIDECTOMY goiter at age 8 y/o HX PORTACATH PLACEMENT HX SINUS SURGERY x 2 HX SPINAL SURGERY cervical laminectomy HX TUBAL LIGATION MD EDG US EXAM SURGICAL ALTER STOM DUODENUM/JEJUNUM N/A 05/25/2021 ULTRASOUND ENDOSCOPIC performed by Omar Gonzalez MD at [facility] MD ESOPHAGOGASTRODUODENOSCOPY TRANSORAL DIAGNOSTIC N/A 05/25/2021 ESOPHAGOGASTRODUODENOSCOPY performed by Omar Gonzalez MD at [facility] Subjective Subjective: Pt agreed to [...] assessment and patient???s current status. Renetta Pineda PUPPET MAKER [id number] * Care Plan - Edie Jean-Baptiste, Occupational [...] ENDOSCOPIC performed by Omar Gonzalez MD at [facility] ??? HX ERCP 05/2021 at [facility] ??? HX HEART CATHETERIZATION ??? HX HYSTERECTOMY ??? HX PARTIAL THYROIDECTOMY goiter at age 8 y/o ??? HX PORTACATH PLACEMENT ??? HX SINUS SURGERY x 2 ??? HX SPINAL SURGERY cervical laminectomy ??? HX TUBAL LIGATION ??? MD EDG US EXAM SURGICAL ALTER STOM DUODENUM/JEJUNUM N/A 05/25/2021 ULTRASOUND ENDOSCOPIC performed by Omar Gonzalez MD at [facility] ??? MD ESOPHAGOGASTRODUODENOSCOPY TRANSORAL DIAGNOSTIC N/A 05/25/2021 ESOPHAGOGASTRODUODENOSCOPY performed by Omar Gonzalez MD at [facility] Subjective Subjective: I want to [...] alarm on * Care Plan - Nancy Morton Occupational Therapist - 01/03/2022 3:37 PM CDT [...] Date: 12/30/21 OT Treatment Start Time : 1509 OT Treatment Stop Time : 153 Total Timed Treatment (min): 25 Precautions: Fall, [...] ENDOSCOPIC performed by Omar Gonzalez MD at [facility] HX ERCP 05/2021 at [facility] HX HEART CATHETERIZATION HX HYSTERECTOMY HX PARTIAL THYROIDECTOMY goiter at age 8 y/o HX PORTACATH PLACEMENT HX SINUS SURGERY x 2 HX SPINAL SURGERY cervical laminectomy HX TUBAL LIGATION MD EDG US EXAM SURGICAL ALTER STOM DUODENUM/JEJUNUM N/A 05/25/2021 ULTRASOUND ENDOSCOPIC performed by Omar Gonzalez MD at [facility] MD ESOPHAGOGASTRODUODENOSCOPY TRANSORAL DIAGNOSTIC N/A 05/25/2021 ESOPHAGOGASTRODUODENOSCOPY performed by Omar Gonzalez MD at [facility] Subjective Subjective: agreed to OT [...] patient???s current status. Nancy Morton OT ascom [phone] * Care Plan - Renetta Pineda, Commercial Decorator - 01/03/2022 12:19 PM CDT Problem: Physical [...] ENDOSCOPIC performed by Omar Gonzalez MD at [facility] HX ERCP 05/2021 at [facility] HX HEART CATHETERIZATION HX HYSTERECTOMY HX PARTIAL THYROIDECTOMY goiter at age 8 y/o HX PORTACATH PLACEMENT HX SINUS SURGERY x 2 HX SPINAL SURGERY cervical laminectomy HX TUBAL LIGATION MD EDG US EXAM SURGICAL ALTER STOM DUODENUM/JEJUNUM N/A 05/25/2021 ULTRASOUND ENDOSCOPIC performed by Omar Gonzalez MD at [facility] MD ESOPHAGOGASTRODUODENOSCOPY TRANSORAL DIAGNOSTIC N/A 05/25/2021 ESOPHAGOGASTRODUODENOSCOPY performed by Omar Gonzalez MD at [facility] Subjective Subjective: Pt agreed to [...] assessment and patient???s current status. Renetta Pineda PUPPET MAKER [phone] * Care Plan - Jeimy Ritter, [...] nutrition support. Via central line, recommend: Clinimix 5/15 (1800 ml) @ 75 ml/hr + 50 [...] (most recent): No results found for: HGBA1C, [id number] Jeimy Ritter RD, LD Time spent: 15 minutes * Care Plan - Mac Caldera RN - 01/03/2022 5:34 AM CDT Problem: Pain, Potential/Actual Goal: Verbalizes/displays acceptable comfort level or baseline comfort level Description: Outcome: Progressing * Care Plan - Ashley Tabares, Commercial Decorator - 01/02/2022 3:38 PM CDT Problem: Physical [...] ENDOSCOPIC performed by Omar Gonzalez MD at [facility] HX ERCP 05/2021 at [facility] HX HEART CATHETERIZATION HX HYSTERECTOMY HX PARTIAL THYROIDECTOMY goiter at age 8 y/o HX PORTACATH PLACEMENT HX SINUS SURGERY x 2 HX SPINAL SURGERY cervical laminectomy HX TUBAL LIGATION MD EDG US EXAM SURGICAL ALTER STOM DUODENUM/JEJUNUM N/A 05/25/2021 ULTRASOUND ENDOSCOPIC performed by Omar Gonzalez MD at [facility] MD ESOPHAGOGASTRODUODENOSCOPY TRANSORAL DIAGNOSTIC N/A 05/25/2021 ESOPHAGOGASTRODUODENOSCOPY performed by Omar Gonzalez MD at [facility] Subjective Subjective: Patient willing to [...] assessment and patient???s current status. Ashley Tabares, PUPPET MAKER Ascom#[phone] * Care Plan - Edie Jean-Baptiste, Occupational [...] ENDOSCOPIC performed by Omar Gonzalez MD at [facility] ??? HX ERCP 05/2021 at [facility] ??? HX HEART CATHETERIZATION ??? HX HYSTERECTOMY ??? HX PARTIAL THYROIDECTOMY goiter at age 8 y/o ??? HX PORTACATH PLACEMENT ??? HX SINUS SURGERY x 2 ??? HX SPINAL SURGERY cervical laminectomy ??? HX TUBAL LIGATION ??? MD EDG US EXAM SURGICAL ALTER STOM DUODENUM/JEJUNUM N/A 05/25/2021 ULTRASOUND ENDOSCOPIC performed by Omar Gonzalez MD at [facility] ??? MD ESOPHAGOGASTRODUODENOSCOPY TRANSORAL DIAGNOSTIC N/A 05/25/2021 ESOPHAGOGASTRODUODENOSCOPY performed by Omar Gonzalez MD at [facility] Subjective Subjective: Alert, agreeable to [...] because of medications (i.e. - BP meds, CV/STORE PROMOTER meds, seizure meds, diuretics, pain meds, psych [...] Variance * Care Plan - Ashley Tabares, Commercial Decorator - 01/01/2022 3:49 PM CDT Problem: Physical [...] ENDOSCOPIC performed by Omar Gonzalez MD at [facility] HX ERCP 05/2021 at [facility] HX HEART CATHETERIZATION HX HYSTERECTOMY HX PARTIAL THYROIDECTOMY goiter at age 8 y/o HX PORTACATH PLACEMENT HX SINUS SURGERY x 2 HX SPINAL SURGERY cervical laminectomy HX TUBAL LIGATION MD EDG US EXAM SURGICAL ALTER STOM DUODENUM/JEJUNUM N/A 05/25/2021 ULTRASOUND ENDOSCOPIC performed by Omar Gonzalez MD at [facility] MD ESOPHAGOGASTRODUODENOSCOPY TRANSORAL DIAGNOSTIC N/A 05/25/2021 ESOPHAGOGASTRODUODENOSCOPY performed by Omar Gonzalez MD at [facility] Subjective Subjective: Patient willing to [...] assessment and patient???s current status. Ashley Tabares, PUPPET MAKER Ascom#[phone] * Care Plan - Sabiha Orellana, RN - 01/01/2022 10:21 AM CDT Care Management Initial Assessment Initial Discharge Planning Assessment completed. Discussed Care Management's role and Discharge planning. Discharge Plan: home with HHC/Family assist Comments: [place], from home with spouse. No DME PUPPET MAKER. Plan: HHC/Fam assist. Patient Discharge Planning Goal: [...] the following DME? Yes BP cuff every ot day Services in the home: none Serviced by Receives hemodialysis? No Emergency contact(s): Extended Emergency Contact Information Primary Emergency Contact: Brittni Taylor Mobile Relation: Daughter Secondary Emergency Contact: pat dillon Mobile Relation: Spouse Preferred language: Tunisian Rides Attendant needed? No Insurance coverage verified: Payor: [employer] MEDICARE ADVANTAGE / Plan: [employer] HMO [facility] [id number] / Product Type: HMO / Prescription coverage: no Preferred Pharmacy verified: [id number] IN [place], [place] - [address] Employment Status: [...] few minutes. * Care Plan - Rani Buck GN - 01/01/2022 6:28 AM CDT Problem: [...] because of medications (i.e. - BP meds, CV/STORE PROMOTER meds, seizure meds, diuretics, pain meds, psych [...] because of medications (i.e. - BP meds, CV/STORE PROMOTER meds, seizure meds, diuretics, pain meds, psych [...] ENDOSCOPIC performed by Omar Gonzalez MD at [facility] ??? HX ERCP 05/2021 at [facility] ??? HX HEART CATHETERIZATION ??? HX HYSTERECTOMY ??? HX PARTIAL THYROIDECTOMY goiter at age 8 y/o ??? HX PORTACATH PLACEMENT ??? HX SINUS SURGERY x 2 ??? HX SPINAL SURGERY cervical laminectomy ??? HX TUBAL LIGATION ??? MD EDG US EXAM SURGICAL ALTER STOM DUODENUM/JEJUNUM N/A 05/25/2021 ULTRASOUND ENDOSCOPIC performed by Omar Gonzalez MD at [facility] ??? MD ESOPHAGOGASTRODUODENOSCOPY TRANSORAL DIAGNOSTIC N/A 05/25/2021 ESOPHAGOGASTRODUODENOSCOPY performed by Omar Gonzalez MD at [facility] Subjective Subjective: Agreed to participate. [...] patient???s current status. Nuzhat Chavez DPT Ascom #[phone] * Care Plan - Sameera Workman RD - 12/30/2021 12:24 PM CDT Medical [...] (most recent): No results found for: HGBA1C, [id number] Sameera Workman RD, LD Time spent: 15 [...] K86.2 577.2 OT Evaluation Start Time : 804 OT Evaluation Stop Time : 845 OT Evaluation Total Minutes: 41 Activity order/ Restrictions: Ot ordered Precautions: Fall, none Lines/ tubes: IV lines, catheter, drain x2, epidural, telemetry and NG tube for suction Vision: WFL Supplemental O2: 3L Past Medical History: Diagnosis [...] ENDOSCOPIC performed by Omar Gonzalez MD at [facility] ??? HX ERCP 05/2021 at [facility] ??? HX HEART CATHETERIZATION ??? HX HYSTERECTOMY ??? HX PARTIAL THYROIDECTOMY goiter at age 8 y/o ??? HX PORTACATH PLACEMENT ??? HX SINUS SURGERY x 2 ??? HX SPINAL SURGERY cervical laminectomy ??? HX TUBAL LIGATION ??? MD EDG US EXAM SURGICAL ALTER STOM DUODENUM/JEJUNUM N/A 05/25/2021 ULTRASOUND ENDOSCOPIC performed by Omar Gonzalez MD at [facility] ??? MD ESOPHAGOGASTRODUODENOSCOPY TRANSORAL DIAGNOSTIC N/A 05/25/2021 ESOPHAGOGASTRODUODENOSCOPY performed by Omar Gonzalez MD at [facility] Subjective Subjective: I want to [...] commands appropriately Safety judgment: intact UE ROM: WFL UE Strength: WF 5/5 shoulder flexion, 5/5 elbow flexion and 5/5 bar catcher strength in both arms Coordination: [facility] FUNCTIONAL ACTIVITIES ASSESSMENT: ADLs Grooming/Hygiene: supervision with [...] st Contact Info) Description 08/25/2024 2:00 PM CUFF SLITTER Office Visit [facility] Oncology and Hematology - [place] [address] [facility] [facility] [address] [place] [address] Royal Newell MD [address] [facility] [address] [place] [address] Scheduled Orders Name Type Priority [...] CAMERON 8 HRS FOR CASE. PT'S INSURANCE [facility] MEDICARE ADVANTAGE / MEDICAID OF ILL. ETELVINA'D PER PATTI Pt. has KIWI allergy- denies Latex allergy. PROC CARD UPDATED PER M,N. NOTIFIED RACHEL / CASE CARTS OF CHANGE. documented in this encounter Results * (ABNORMAL) CBC WITHOUT DIFFERENTIAL (01/08/2022 5:25 AM CDT) WBC 9.8 4.5 - 10.5 K/uL 01/08/2022 6:26 AM CDT [facility] RBC 3.15(L) 3.90 - 4.90 M/uL 01/08/2022 6:26 AM CDT [facility] HEMOGLOBIN 8.5(L) 11.8 - 14.8 g/dL 01/08/2022 6:26 AM CDT [facility] HEMATOCRIT 26.7(L) 35.5 - 44.0 % 01/08/2022 6:26 AM CDT [facility] MCV 84.8 82.0 - 99.0 fL 01/08/2022 6:26 AM CDT [facility] MCH 27.1(L) 27.8 - 34.5 pg 01/08/2022 6:26 AM CDT [facility] MCHC 32.0(L) 32.5 - 35.5 g/dL 01/08/2022 6:26 AM CDT [facility] PLATELETS 451(H) 160 - 420 K/uL 01/08/2022 6:26 AM CDT [facility] MPV 7.7(L) 8.7 - 12.7 fL 01/08/2022 6:26 AM CDT [facility] RDW 17.2(H) 11.5 - 14.5 % 01/08/2022 6:26 AM CDT [facility] Blood Venipuncture / Unknown 01/08/2022 5:25 AM CDT 01/08/2022 6:22 AM CDT Thelma Ken MD HEMATOLOGY ORDER PHILIPP [facility] CLIA# [id number] [place] [address] * (ABNORMAL) BASIC METABOLIC PANEL (01/08/2022 5:25 AM CDT) SODIUM 134(L) 136 - 145 mmol/L 01/08/2022 6:49 AM CDT [facility] POTASSIUM 4.1 3.4 - 5.1 mmol/L 01/08/2022 6:49 AM CDT [facility] CHLORIDE 99 98 - 107 mmol/L 01/08/2022 6:49 AM CDT [facility] CO2 23 22 - 29 mmol/L 01/08/2022 6:49 AM CDT [facility] CALCIUM 8.4(L) 8.6 - 10.4 mg/dL 01/08/2022 6:49 AM T [facility] BUN 7 6 - 20 mg/dL 01/08/2022 6:49 AM T [facility] CREATININE 0.70 0.51 - 0.95 mg/dL 01/08/2022 6:49 AM T [facility] GLUCOSE 81 74 - 99 mg/dL 01/08/2022 6:49 AM T [facility] GFR >60 >=60 mL/min/1.7 3 sq meter 01/08/2022 6:49 AM T [facility] Comment:eGFR calculated with 2020 CKD-EPI equation. Vegetarian diet, extremely high or low muscle mass, and may affect results. Cystatin C with Glomerular Filtration Rate is a suitable alternative for these patients. ANION GAP 12 8 - 16 mmol/L 01/08/2022 6:49 AM T [facility] Blood Venipuncture / Unknown 01/08/2022 5:25 AM CDT 01/08/2022 6:21 AM CDT Thelma Ken MD CHEMISTRY ORDERA [facility] CLIA# [id number] [place] [address] * (ABNORMAL) CBC WITHOUT DIFFERENTIAL (01/07/2022 5:37 AM CDT) WBC 10.7(H) 4.5 - 10.5 K/uL 01/07/2022 6:10 AM CDT [facility] RBC 2.81(L) 3.90 - 4.90 M/uL 01/07/2022 6:10 AM T [facility] HEMOGLOBIN 8.0(L) 11.8 - 14.8 g/dL 01/07/2022 6:10 AM T [facility] HEMATOCRIT 23.2(L) 35.5 - 44.0 % 01/07/2022 6:10 AM CDT [facility] MCV 82.5 82.0 - 99.0 fL 01/07/2022 6:10 AM CDT [facility] MCH 28.3 27.8 - 34.5 pg 01/07/2022 6:10 AM CDT [facility] MCHC 34.4 32.5 - 35.5 g/dL 01/07/2022 6:10 AM CDT [facility] PLATELETS 385 160 - 420 K/uL 01/07/2022 6:10 AM CDT [facility] MPV 7.3(L) 8.7 - 12.7 fL 01/07/2022 6:10 AM CDT [facility] RDW 17.2(H) 11.5 - 14.5 % 01/07/2022 6:10 AM T [facility] Blood Collection / Unknown 01/07/2022 5:37 AM CDT 01/07/2022 6:01 AM CDT Thelma Ken MD HEMATOLOGY ORDER PHILIPP [facility] CLIA# [id number] [place] [address] * (ABNORMAL) BASIC METABOLIC PANEL (01/07/2022 5:37 AM CDT) SODIUM 135(L) 136 - 145 mmol/L 01/07/2022 6:33 AM CDT [facility] POTASSIUM 3.4 3.4 - 5.1 mmol/L 01/07/2022 6:33 AM CDT [facility] CHLORIDE 99 98 - 107 mmol/L 01/07/2022 6:33 AM CDT [facility] CO2 25 22 - 29 mmol/L 01/07/2022 6:33 AM CDT [facility] CALCIUM 8.2(L) 8.6 - 10.4 mg/dL 01/07/2022 6:33 AM CDT [facility] BUN 9 6 - 20 mg/dL 01/07/2022 6:33 AM T [facility] CREATININE 0.66 0.51 - 0.95 mg/dL 01/07/2022 6:33 AM T [facility] GLUCOSE 102(H) 74 - 99 mg/dL 01/07/2022 6:33 AM T [facility] GFR >60 >=60 mL/min/1.7 3 sq meter 01/07/2022 6:33 AM T [facility] Comment:eGFR calculated with 2020 CKD-EPI equation. Vegetarian diet, extremely high or low muscle mass, and may affect results. Cystatin C with Glomerular Filtration Rate is a suitable alternative for these patients. ANION GAP 11 8 - 16 mmol/L 01/07/2022 6:33 AM T [facility] Blood Collection / Unknown 01/07/2022 5:37 AM CDT 01/07/2022 6:01 AM CDT Thelma Ken MD CHEMISTRY ORDERA [facility] CLIA# [id number] [place] [address] * (ABNORMAL) BASIC METABOLIC PANEL (01/06/2022 9:45 AM CDT) SODIUM 140 136 - 145 mmol/L 01/06/2022 12:01 PM T [facility] POTASSIUM 3.3(L) 3.4 - 5.1 mmol/L 01/06/2022 12:01 PM T [facility] CHLORIDE 102 98 - 107 mmol/L 01/06/2022 12:01 PM T [facility] CO2 24 22 - 29 mmol/L 01/06/2022 12:01 PM T [facility] CALCIUM 8.6 8.6 - 10.4 mg/dL 01/06/2022 12:01 PM CDT [facility] BUN 13 6 - 20 mg/dL 01/06/2022 12:01 PM T [facility] CREATININE 0.63 0.51 - 0.95 mg/dL 01/06/2022 12:01 PM T [facility] GLUCOSE 103(H) 74 - 99 mg/dL 01/06/2022 12:01 PM T [facility] GFR >60 >=60 mL/min/1.7 3 sq meter 01/06/2022 12:01 PM T [facility] Comment:eGFR calculated with 2020 CKD-EPI equation. Vegetarian diet, extremely high or low muscle mass, and may affect results. Cystatin C with Glomerular Filtration Rate is a suitable alternative for these patients. ANION GAP 14 8 - 16 mmol/L 01/06/2022 12:01 PM T [facility] Blood Venipuncture / Unknown 01/06/2022 9:45 AM CDT 01/06/2022 11:22 AM CDT Thelma Ken MD CHEMISTRY ORDERA [facility] CLIA# [id number] [place] [address] * (ABNORMAL) CBC WITHOUT DIFFERENTIAL (01/06/2022 9:45 AM CDT) WBC 11.7(H) 4.5 - 10.5 K/uL 01/06/2022 11:15 AM CDT [facility] RBC 3.24(L) 3.90 - 4.90 M/uL 01/06/2022 11:15 AM T [facility] HEMOGLOBIN 8.9(L) 11.8 - 14.8 g/dL 01/06/2022 11:15 AM T [facility] HEMATOCRIT 27.2(L) 35.5 - 44.0 % 01/06/2022 11:15 AM CDT [facility] MCV 84.0 82.0 - 99.0 fL 01/06/2022 11:15 AM CDT [facility] MCH 27.4(L) 27.8 - 34.5 pg 01/06/2022 11:15 AM CDT [facility] MCHC 32.6 32.5 - 35.5 g/dL 01/06/2022 11:15 AM CDT [facility] PLATELETS 421(H) 160 - 420 K/uL 01/06/2022 11:15 AM CDT [facility] MPV 7.6(L) 8.7 - 12.7 fL 01/06/2022 11:15 AM CDT [facility] RDW 16.9(H) 11.5 - 14.5 % 01/06/2022 11:15 AM CDT [facility] Blood Venipuncture / Unknown 01/06/2022 9:45 AM CDT 01/06/2022 11:14 AM CDT Thelma Ken MD HEMATOLOGY ORDER PHILIPP [facility] CLIA# [id number] [place] [address] * (ABNORMAL) BASIC METABOLIC PANEL (01/05/2022 4:55 AM CDT) SODIUM 139 136 - 145 mmol/L 01/05/2022 6:16 AM CDT [facility] POTASSIUM 2.9(L) 3.4 - 5.1 mmol/L 01/05/2022 6:16 AM CDT [facility] CHLORIDE 100 98 - 107 mmol/L 01/05/2022 6:16 AM CDT [facility] CO2 24 22 - 29 mmol/L 01/05/2022 6:16 AM CDT [facility] CALCIUM 8.7 8.6 - 10.4 mg/dL 01/05/2022 6:16 AM CDT [facility] BUN 12 6 - 20 mg/dL 01/05/2022 6:16 AM T [facility] CREATININE 0.67 0.51 - 0.95 mg/dL 01/05/2022 6:16 AM T [facility] GLUCOSE 108(H) 74 - 99 mg/dL 01/05/2022 6:16 AM T [facility] GFR >60 >=60 mL/min/1.7 3 sq meter 01/05/2022 6:16 AM T [facility] Comment:eGFR calculated with 2020 CKD-EPI equation. Vegetarian diet, extremely high or low muscle mass, and may affect results. Cystatin C with Glomerular Filtration Rate is a suitable alternative for these patients. ANION GAP 15 8 - 16 mmol/L 01/05/2022 6:16 AM T [facility] Blood Venipuncture / Unknown 01/05/2022 4:55 AM CDT 01/05/2022 5:36 AM CDT Thelma Ken MD CHEMISTRY ORDERA BLES [facility] CLIA# [id number] [place] [address] * (ABNORMAL) CBC WITHOUT DIFFERENTIAL (01/05/2022 4:54 AM CDT) WBC 8.9 4.5 - 10.5 K/uL 01/05/2022 5:45 AM T [facility] RBC 3.54(L) 3.90 - 4.90 M/uL 01/05/2022 5:45 AM T [facility] HEMOGLOBIN 9.6(L) 11.8 - 14.8 g/dL 01/05/2022 5:45 AM T [facility] HEMATOCRIT 29.7(L) 35.5 - 44.0 % 01/05/2022 5:45 AM T [facility] MCV 84.0 82.0 - 99.0 fL 01/05/2022 5:45 AM CDT [facility] MCH 27.1(L) 27.8 - 34.5 pg 01/05/2022 5:45 AM CDT [facility] MCHC 32.2(L) 32.5 - 35.5 g/dL 01/05/2022 5:45 AM CDT [facility] PLATELETS 376 160 - 420 K/uL 01/05/2022 5:45 AM CDT [facility] MPV 7.8(L) 8.7 - 12.7 fL 01/05/2022 5:45 AM CDT [facility] RDW 17.2(H) 11.5 - 14.5 % 01/05/2022 5:45 AM CDT [facility] Blood Venipuncture / Unknown 01/05/2022 4:54 AM CDT 01/05/2022 5:41 AM CDT Thelma Ken MD HEMATOLOGY ORDER PHILIPP [facility] CLIA# [id number] [place] [address] * (ABNORMAL) POC GLUCOSE (01/05/2022 4:07 AM CDT) [facility] Signature GLUCOSE POC 104(H) 74 - 99 mg/dL 01/05/2022 4:07 AM CDT [facility] POINT OF CARE Blood, whole 01/05/2022 4:07 AM CDT 01/05/2022 4:12 AM CDT Thelma Ken MD POINT OF CARE TE STING Performing Organization Address City/[facility]/ZIP Co de Phone Number [facility] POINT OF CARE CLIA # [id number] [place] [address] * (ABNORMAL) POC GLUCOSE (01/04/2022 11:46 PM CDT) GLUCOSE POC 124(H) 74 - 99 mg/dL 01/04/2022 11:46 PM CDT [facility] POINT [facility] CARE Blood, whole 01/04/2022 11:4 6 PM CDT 01/04/2022 11:48 PM CDT Thelma Ken MD POINT OF CARE TE STING Performing Organization Address City/[facility]/ZIP Co de Phone Number [facility] POINT OF CARE CLIA # [id number] [place] [address] * (ABNORMAL) POC GLUCOSE (01/04/2022 9:43 PM CDT) GLUCOSE POC 73(L) 74 - 99 mg/dL 01/04/2022 9:43 PM CDT [facility] POINT [facility] CARE Blood, whole 01/04/2022 9:43 PM CDT 01/04/2022 9:45 PM CDT Thelma Ken MD POINT OF CARE TE STING Performing Organization Address [facility]/ZIP Co de Phone Number [facility] POINT OF CARE CLIA # [id number] [place] [address] * (ABNORMAL) POC GLUCOSE (01/04/2022 6:50 PM CDT) GLUCOSE POC 105(H) 74 - 99 mg/dL 01/04/2022 6:50 PM CDT [facility] POINT [facility] CARE Blood, whole 01/04/2022 6:50 PM CDT 01/04/2022 6:51 PM CDT Thelma Ken MD POINT OF CARE TE STING Performing Organization Address City/[facility]/ZIP Co de Phone Number [facility] POINT OF CARE CLIA # [id number] [place] [address] * (ABNORMAL) POC GLUCOSE (01/04/2022 12:26 PM CDT) Pathologist [facility] GLUCOSE POC 118(H) 74 - 99 mg/dL 01/04/2022 12:26 PM CDT [facility] POINT OF CARE Blood, whole 01/04/2022 12:2 6 PM CDT 01/04/2022 12:39 PM CDT Thelma Ken MD POINT OF CARE TE STING [facility] POINT [facility] CARE CLIA # [id number] [place] [address] * (ABNORMAL) BASIC METABOLIC PANEL (01/04/2022 6:05 AM CDT) [facility] SODIUM 145 136 - 145 mmol/L 01/04/2022 6:58 AM T [facility] POTASSIUM 2.7(L) 3.4 - 5.1 mmol/L 01/04/2022 6:58 AM T [facility] CHLORIDE 106 98 - 107 mmol/L 01/04/2022 6:58 AM T [facility] CO2 27 22 - 29 mmol/L 01/04/2022 6:58 AM T [facility] CALCIUM 9.1 8.6 - 10.4 mg/dL 01/04/2022 6:58 AM T [facility] BUN 17 6 - 20 mg/dL 01/04/2022 6:58 AM T [facility] CREATININE 0.72 0.51 - 0.95 mg/dL 01/04/2022 6:58 AM T [facility] GLUCOSE 138(H) 74 - 99 mg/dL 01/04/2022 6:58 AM T [facility] GFR >60 >=60 mL/min/1.7 3 sq meter 01/04/2022 6:58 AM T [facility] Comment:eGFR calculated with 2020 CKD-EPI equation. Vegetarian diet, extremely high or low muscle mass, and may affect results. Cystatin C with Glomerular Filtration Rate is a suitable alternative for these patients. ANION GAP 12 8 - 16 mmol/L 01/04/2022 6:58 AM CDT [facility] Blood Venipuncture / Unknown 01/04/2022 6:05 AM CDT 01/04/2022 6:20 AM CDT Thelma Ken MD CHEMISTRY ORDERA BLES [facility] CLIA# [id number] [place] [address] * (ABNORMAL) CBC WITHOUT DIFFERENTIAL (01/04/2022 6:05 AM CDT) WBC 8.7 4.5 - 10.5 K/uL 01/04/2022 6:29 AM T [facility] RBC 3.16(L) 3.90 - 4.90 M/uL 01/04/2022 6:29 AM T [facility] HEMOGLOBIN 8.8(L) 11.8 - 14.8 g/dL 01/04/2022 6:29 AM T [facility] HEMATOCRIT 26.4(L) 35.5 - 44.0 % 01/04/2022 6:29 AM T [facility] MCV 83.6 82.0 - 99.0 fL 01/04/2022 6:29 AM T [facility] MCH 27.7(L) 27.8 - 34.5 pg 01/04/2022 6:29 AM T [facility] MCHC 33.2 32.5 - 35.5 g/dL 01/04/2022 6:29 AM CDT [facility] PLATELETS 334 160 - 420 K/uL 01/04/2022 6:29 AM T [facility] MPV 7.2(L) 8.7 - 12.7 fL 01/04/2022 6:29 AM T [facility] RDW 17.3(H) 11.5 - 14.5 % 01/04/2022 6:29 AM CDT [facility] Blood Venipuncture / Unknown 01/04/2022 6:05 AM CDT 01/04/2022 6:23 AM CDT Thelma Ken MD HEMATOLOGY ORDER PHILIPP [facility] CLIA# [id number] [place] [address] * (ABNORMAL) POC GLUCOSE (01/04/2022 4:01 AM CDT) GLUCOSE POC 117(H) 74 - 99 mg/dL 01/04/2022 4:01 AM CDT [facility] POINT OF CARE Blood, whole 01/04/2022 4:01 AM CDT 01/04/2022 4:07 AM CDT Thelma Ken MD POINT OF CARE TE STING Performing Organization Address [facility] Co de Phone Number [facility] POINT OF CARE CLIA # [id number] [place] [address] * (ABNORMAL) POC GLUCOSE (01/03/2022 11:44 PM CDT) GLUCOSE POC 102(H) 74 - 99 mg/dL 01/03/2022 11:44 PM CDT [facility] POINT OF CARE Blood, whole 01/03/2022 11:4 4 PM CDT 01/03/2022 11:46 PM CDT Thelma Ken MD POINT OF CARE TE STING Performing Organization Address City/[facility]/ZIP Co de Phone Number [facility] POINT OF CARE CLIA # [id number] [place] [address] * (ABNORMAL) POC GLUCOSE (01/03/2022 9:14 PM CDT) GLUCOSE POC 102(H) 74 - 99 mg/dL 01/03/2022 9:14 PM CDT [facility] POINT OF CARE Blood, whole 01/03/2022 9:14 PM CDT 01/03/2022 9:15 PM CDT Thelma Ken MD POINT OF CARE TE STING Performing Organization Address City/[facility]/ZIP Co de Phone Number [facility] POINT [facility] CARE CLIA # [id number] [place] [address] * POC GLUCOSE (01/03/2022 4:42 PM CDT) GLUCOSE POC 91 74 - 99 mg/dL 01/03/2022 4:42 PM CDT [facility] POINT OF CARE Blood, whole 01/03/2022 4:42 PM CDT 01/03/2022 4:46 PM CDT Thelma Ken MD POINT OF CARE TE STING Performing Organization Address [facility]/ZIP Co de Phone Number [facility] POINT OF CARE CLIA # [id number] [place] [address] * XR UPR GI WATER MARÍA CONTRAST [...] of extravasation. DICTATION LOCATION: Location 7 - [facility] Narrative 01/03/2022 2:32 PM CDT WATER-SOLUBLE UPPER [...] nasogastric tube in the stomach. Procedure Note Roverto Vázquez MD - 01/03/2022 WATER-SOLUBLE UPPER GI [...] without evidence of extravasation. DICTATION LOCATION: Location [address] [place] [address] Thelma Ken MD DIAGNOSTIC IMAGI NG ORDERABLES * (ABNORMAL) POC GLUCOSE (01/03/2022 7:48 AM CDT) GLUCOSE POC 118(H) 74 - 99 mg/dL 01/03/2022 7:48 AM CDT [facility] POINT OF CARE Blood, whole 01/03/2022 7:48 AM CDT 01/03/2022 7:54 AM CDT Thelma Ken MD POINT OF CARE TE STING [facility] POINT OF CARE CLIA # [id number] [place] [address] * (ABNORMAL) COMPREHENSIVE METABOLIC PANEL (01/03/2022 4:14 AM CDT) SODIUM 149(H) 136 - 145 mmol/L 01/03/2022 4:53 AM CDT [facility] POTASSIUM 3.6 3.4 - 5.1 mmol/L 01/03/2022 4:53 AM CDT [facility] CHLORIDE 111(H) 98 - 107 mmol/L 01/03/2022 4:53 AM CDT [facility] CO2 29 22 - 29 mmol/L 01/03/2022 4:53 AM CDT [facility] CALCIUM 8.9 8.6 - 10.4 mg/dL 01/03/2022 4:53 AM CDT [facility] BUN 12 6 - 20 mg/dL 01/03/2022 4:53 AM CDT [facility] CREATININE 0.60 0.51 - 0.95 mg/dL 01/03/2022 4:53 AM CDT [facility] GLUCOSE 128(H) 74 - 99 mg/dL 01/03/2022 4:53 AM CDT [facility] TOTAL PROTEIN 6.3 6.3 - 8.7 g/dL 01/03/2022 4:53 AM CDT [facility] ALBUMIN 2.9(L) 3.5 - 5.2 g/dL 01/03/2022 4:53 AM CDT [facility] BILIRUBIN TOTAL 0.2 0.2 - 1.1 mg/dL 01/03/2022 4:53 AM CDT [facility] ALKALINE PHOSPHATASE 79 40 - 150 U/L 01/03/2022 4:53 AM CDT [facility] AST 10 0 - 33 U/L 01/03/2022 4:53 AM CDT [facility] ALT 15 0 - 33 U/L 01/03/2022 4:53 AM CDT [facility] GFR >60 >=60 mL/min/1.7 3 sq meter 01/03/2022 4:53 AM CDT [facility] Comment:eGFR calculated with 2020 CKD-EPI equation. Vegetarian diet, extremely high or low muscle mass, and may affect results. Cystatin C with Glomerular Filtration Rate is a suitable alternative for these patients. ANION GAP 9 8 - 16 mmol/L 01/03/2022 4:53 AM CDT [facility] Blood Venipuncture / Unknown 01/03/2022 4:14 AM CDT 01/03/2022 4:20 AM CDT Thelma Ken MD CHEMISTRY ORDERA BLES [facility] CLIA# [id number] [place] [address] * (ABNORMAL) CBC WITHOUT DIFFERENTIAL (01/03/2022 4:14 AM CDT) WBC 8.3 4.5 - 10.5 K/uL 01/03/2022 4:24 AM T [facility] RBC 2.98(L) 3.90 - 4.90 M/uL 01/03/2022 4:24 AM T [facility] HEMOGLOBIN 8.2(L) 11.8 - 14.8 g/dL 01/03/2022 4:24 AM T [facility] HEMATOCRIT 25.4(L) 35.5 - 44.0 % 01/03/2022 4:24 AM CDT [facility] MCV 85.2 82.0 - 99.0 fL 01/03/2022 4:24 AM CDT [facility] MCH 27.4(L) 27.8 - 34.5 pg 01/03/2022 4:24 AM CDT [facility] MCHC 32.1(L) 32.5 - 35.5 g/dL 01/03/2022 4:24 AM CDT [facility] PLATELETS 276 160 - 420 K/uL 01/03/2022 4:24 AM CDT [facility] MPV 6.8(L) 8.7 - 12.7 fL 01/03/2022 4:24 AM CDT [facility] RDW 17.2(H) 11.5 - 14.5 % 01/03/2022 4:24 AM CDT [facility] Blood Venipuncture / Unknown 01/03/2022 4:14 AM CDT 01/03/2022 4:20 AM CDT Thelma Ken MD HEMATOLOGY ORDER PHILIPP Performing Organization Address City/[facility]/ZIP Co de Phone Number [facility] CLIA# [id number] [place] [address] * (ABNORMAL) POC GLUCOSE (01/03/2022 3:49 AM CDT) GLUCOSE POC 135(H) 74 - 99 mg/dL 01/03/2022 3:49 AM CDT [facility] POINT [facility] CARE Blood, whole 01/03/2022 3:49 AM CDT 01/03/2022 3:51 AM CDT Thelma Ken MD POINT OF CARE TE STING [facility] POINT [facility]ARE CLIA # [id number] [place] [address] * (ABNORMAL) POC GLUCOSE (01/03/2022 12:32 AM CDT) GLUCOSE POC 126(H) 74 - 99 mg/dL 01/03/2022 12:32 AM CDT [facility] POINT [facility] CARE Blood, whole 01/03/2022 12:3 2 AM CDT 01/03/2022 12:34 AM CDT Thelma Ken MD POINT OF CARE TE STING Performing Organization Address City/[facility]/ZIP Co de Phone Number [facility]INT [facility]ARE CLIA # [id number] [place] [address] * (ABNORMAL) POC GLUCOSE (01/02/2022 9:38 PM CDT) GLUCOSE POC 125(H) 74 - 99 mg/dL 01/02/2022 9:38 PM CDT [facility] POINT [facility]ARE Blood, whole 01/02/2022 9:38 PM CDT 01/02/2022 9:40 PM CDT Thelma Ken MD POINT OF CARE TE STING Performing Organization Address [facility] Co de Phone Number [facility] POINT [facility] CARE CLIA # [id number] [place] [address] * (ABNORMAL) POC GLUCOSE (01/02/2022 3:05 PM CDT) GLUCOSE POC 131(H) 74 - 99 mg/dL 01/02/2022 3:05 PM CDT [facility] POINT [facility] CARE Blood, whole 01/02/2022 3:05 PM CDT 01/02/2022 3:06 PM CDT Thelma Ken MD POINT OF CARE TE STING Performing Organization Address [facility]/ZIP Co de Phone Number [facility] POINT [facility] CARE CLIA # [id number] [place] [address] * (ABNORMAL) POC GLUCOSE (01/02/2022 11:58 AM CDT) GLUCOSE POC 143(H) 74 - 99 mg/dL 01/02/2022 11:58 AM CDT [facility] POINT OF CARE Blood, whole 01/02/2022 11:5 8 AM CDT 01/02/2022 12:00 PM CDT Thelma Ken MD POINT OF CARE ORA STING [facility] POINT OF CARE CLIA # [id number] [place] [address] * (ABNORMAL) POC GLUCOSE (01/02/2022 8:10 AM CDT) GLUCOSE POC 160(H) 74 - 99 mg/dL 01/02/2022 8:10 AM CDT [facility] POINT OF CARE Blood, whole 01/02/2022 8:10 AM CDT 01/02/2022 8:14 AM CDT Thelma Ken MD POINT OF CARE ORA STING Performing Organization Address [facility]/ZIP Co de Phone Number [facility] POINT OF CARE CLIA # [id number] [place] [address] * (ABNORMAL) COMPREHENSIVE METABOLIC PANEL (01/02/2022 6:31 AM CDT) SODIUM 149(H) 136 - 145 mmol/L 01/02/2022 7:41 AM CDT [facility] POTASSIUM 3.7 3.4 - 5.1 mmol/L 01/02/2022 7:41 AM CDT [facility] CHLORIDE 109(H) 98 - 107 mmol/L 01/02/2022 7:41 AM CDT [facility] CO2 29 22 - 29 mmol/L 01/02/2022 7:41 AM CDT [facility] CALCIUM 8.9 8.6 - 10.4 mg/dL 01/02/2022 7:41 AM CDT [facility] BUN 11 6 - 20 mg/dL 01/02/2022 7:41 AM CDT [facility] CREATININE 0.65 0.51 - 0.95 mg/dL 01/02/2022 7:41 AM CDT [facility] GLUCOSE 148(H) 74 - 99 mg/dL 01/02/2022 7:41 AM T [facility] TOTAL PROTEIN 6.1(L) 6.3 - 8.7 g/dL 01/02/2022 7:41 AM [facility] ALBUMIN 3.1(L) 3.5 - 5.2 g/dL 01/02/2022 7:41 AM T [facility] BILIRUBIN TOTAL 0.4 0.2 - 1.1 mg/dL 01/02/2022 7:41 AM T [facility] ALKALINE PHOSPHATASE 79 40 - 150 U/L 01/02/2022 7:41 AM T [facility] AST 13 0 - 33 U/L 01/02/2022 7:41 AM [facility] ALT 18 0 - 33 U/L 01/02/2022 7:41 AM T [facility] GFR >60 >=60 mL/min/1.7 3 sq meter 01/02/2022 7:41 AM T [facility] Comment:eGFR calculated with 2020 CKD-EPI equation. Vegetarian diet, extremely high or low muscle mass, and may affect results. Cystatin C with Glomerular Filtration Rate is a suitable alternative for these patients. ANION GAP 11 8 - 16 mmol/L 01/02/2022 7:41 AM T [facility] Blood Venipuncture / Unknown 01/02/2022 6:31 AM CDT 01/02/2022 7:09 AM CDT Thelma Ken MD CHEMISTRY ORDERA BLES [facility] CLIA# [id number] [place] [address] * (ABNORMAL) CBC WITHOUT DIFFERENTIAL (01/02/2022 6:31 AM CDT) WBC 10.7(H) 4.5 - 10.5 K/uL 01/02/2022 7:20 AM CDT [facility] RBC 2.99(L) 3.90 - 4.90 M/uL 01/02/2022 7:20 AM T [facility] HEMOGLOBIN 8.3(L) 11.8 - 14.8 g/dL 01/02/2022 7:20 AM T [facility] HEMATOCRIT 25.4(L) 35.5 - 44.0 % 01/02/2022 7:20 AM CDT [facility] MCV 84.9 82.0 - 99.0 fL 01/02/2022 7:20 AM CDT [facility] MCH 27.8 27.8 - 34.5 pg 01/02/2022 7:20 AM T [facility] MCHC 32.8 32.5 - 35.5 g/dL 01/02/2022 7:20 AM T [facility] PLATELETS 267 160 - 420 K/uL 01/02/2022 7:20 AM T [facility] MPV 7.5(L) 8.7 - 12.7 fL 01/02/2022 7:20 AM T [facility] RDW 16.4(H) 11.5 - 14.5 % 01/02/2022 7:20 AM T [facility] Blood Venipuncture / Unknown 01/02/2022 6:31 AM CDT 01/02/2022 7:13 AM CDT Thelma Ken MD HEMATOLOGY ORDER PHILIPP [facility] CLIA# [id number] [place] [address] * (ABNORMAL) POC GLUCOSE (01/02/2022 4:11 AM CDT) GLUCOSE POC 157(H) 74 - 99 mg/dL 01/02/2022 4:11 AM CDT [facility] POINT OF CARE Blood, whole 01/02/2022 4:11 AM CDT 01/02/2022 4:17 AM CDT Thelma Ken MD POINT OF CARE TE STING Performing Organization Address City/[facility]/ZIP Co de Phone Number [facility] POINT OF CARE CLIA # [id number] [place] [address] * (ABNORMAL) POC GLUCOSE (01/02/2022 12:17 AM CDT) GLUCOSE POC 125(H) 74 - 99 mg/dL 01/02/2022 12:17 AM CDT [facility] POINT OF CARE Blood, whole 01/02/2022 12:1 7 AM CDT 01/02/2022 12:22 AM CDT Thelma Ken MD POINT OF CARE TE STING Performing Organization Address [facility] Co de Phone Number [facility] POINT OF CARE CLIA # [id number] [place] [address] * (ABNORMAL) POC GLUCOSE (01/01/2022 8:04 PM CDT) GLUCOSE POC 132(H) 74 - 99 mg/dL 01/01/2022 8:04 PM CDT [facility] POINT OF CARE Blood, whole 01/01/2022 8:04 PM CDT 01/01/2022 8:07 PM CDT Thelma Ken MD POINT OF CARE TE STING Performing Organization Address [facility]/ZIP Co de Phone Number [facility] POINT OF CARE CLIA # [id number] [place] [address] * (ABNORMAL) POC GLUCOSE (01/01/2022 6:01 PM CDT) GLUCOSE POC 131(H) 74 - 99 mg/dL 01/01/2022 6:01 PM CDT [facility] POINT OF CARE Blood, whole 01/01/2022 6:01 PM CDT 01/01/2022 6:02 PM CDT Thelma Ken MD POINT OF CARE TE STING Performing Organization Address [facility]/ZIP Co de Phone Number [facility] POINT OF CARE CLIA # [id number] [place] [address] * (ABNORMAL) POC GLUCOSE (01/01/2022 12:28 PM CDT) GLUCOSE POC 119(H) 74 - 99 mg/dL 01/01/2022 12:28 PM CDT [facility] POINT OF CARE Blood, whole 01/01/2022 12:2 8 PM CDT 01/01/2022 12:32 PM CDT Thelma Ken MD POINT OF CARE TE STING Performing Organization Address [facility] Co de Phone Number [facility] POINT OF CARE CLIA # [id number] [place] [address] * (ABNORMAL) POC GLUCOSE (01/01/2022 10:31 AM CDT) GLUCOSE POC 137(H) 74 - 99 mg/dL 01/01/2022 10:31 AM CDT [facility] POINT OF CARE Blood, whole 01/01/2022 10:3 1 AM CDT 01/01/2022 10:31 AM CDT Thelma Ken MD POINT OF CARE TE STING Performing Organization Address City/[facility]/ZIP Co de Phone Number [facility] POINT OF CARE CLIA # [id number] [phone] [place] [address] * (ABNORMAL) COMPREHENSIVE METABOLIC PANEL (01/01/2022 4:18 AM CDT) SODIUM 145 136 - 145 mmol/L [facility] 3.9 3.4 - 5.1 mmol/L 01/01/2022 4:53 AM [facility] CHLORIDE 109(H) 98 - 107 mmol/L 01/01/2022 4:53 AM [facility] CO2 28 22 - 29 mmol/L 01/01/2022 4:53 AM [facility] CALCIUM 9.2 8.6 - 10.4 mg/dL 01/01/2022 4:53 AM [facility] BUN 13 6 - 20 mg/dL 01/01/2022 4:53 AM [facility] CREATININE 0.63 0.51 - 0.95 mg/dL 01/01/2022 4:53 AM [facility] GLUCOSE 145(H) 74 - 99 mg/dL 01/01/2022 4:53 AM [facility] TOTAL PROTEIN 6.3 6.3 - 8.7 g/dL 01/01/2022 4:53 AM [facility] ALBUMIN 3.3(L) 3.5 - 5.2 g/dL 01/01/2022 4:53 AM [facility] BILIRUBIN TOTAL 0.3 0.2 - 1.1 mg/dL 01/01/2022 4:53 AM [facility] ALKALINE PHOSPHATASE 75 40 - 150 U/L 01/01/2022 4:53 AM [facility] AST 21 0 - 33 U/L 01/01/2022 4:53 AM [facility] ALT 28 0 - 33 U/L 01/01/2022 4:53 AM [facility] GFR >60 >=60 mL/min/1.7 3 sq meter 01/01/2022 4:53 AM [facility] Comment:eGFR calculated with 2020 CKD-EPI equation. Vegetarian diet, extremely high or low muscle mass, and may affect results. Cystatin C with Glomerular Filtration Rate is a suitable alternative for these patients. ANION GAP 8 8 - 16 mmol/L 01/01/2022 4:53 AM CDT [facility] Blood Venipuncture / Unknown 01/01/2022 4:18 AM CDT 01/01/2022 4:24 AM CDT Thelma Ken MD CHEMISTRY ORDERA BLES [facility] CLIA# [id number] [place] [address] * (ABNORMAL) CBC WITHOUT DIFFERENTIAL (01/01/2022 4:18 AM CDT) WBC 10.1 4.5 - 10.5 K/uL 01/01/2022 4:24 AM CDT [facility] RBC 3.12(L) 3.90 - 4.90 M/uL 01/01/2022 4:24 AM CDT [facility] HEMOGLOBIN 8.5(L) 11.8 - 14.8 g/dL 01/01/2022 4:24 AM CDT [facility] HEMATOCRIT 26.6(L) 35.5 - 44.0 % 01/01/2022 4:24 AM CDT [facility] MCV 85.2 82.0 - 99.0 fL 01/01/2022 4:24 AM CDT [facility] MCH 27.4(L) 27.8 - 34.5 pg 01/01/2022 4:24 AM CDT [facility] MCHC 32.2(L) 32.5 - 35.5 g/dL 01/01/2022 4:24 AM CDT [facility] PLATELETS 227 160 - 420 K/uL 01/01/2022 4:24 AM CDT [facility] MPV 6.8(L) 8.7 - 12.7 fL 01/01/2022 4:24 AM CDT [facility] RDW 16.5(H) 11.5 - 14.5 % 01/01/2022 4:24 AM CDT [facility] Blood Venipuncture / Unknown 01/01/2022 4:18 AM CDT 01/01/2022 4:23 AM CDT Thelma Ken MD HEMATOLOGY ORDER PHILIPP Performing Organization Address City/[facility]/ZIP Co de Phone Number [facility] CLIA# [id number] [place] [address] * (ABNORMAL) POC GLUCOSE (01/01/2022 4:07 AM CDT) GLUCOSE POC 140(H) 74 - 99 mg/dL 01/01/2022 4:07 AM CDT [facility] POINT OF CARE Blood, whole 01/01/2022 4:07 AM CDT 01/01/2022 4:08 AM CDT Thelma Ken MD POINT OF CARE TE STING Performing Organization Address [facility] Co de Phone Number [facility] POINT OF CARE CLIA # [id number] [place] [address] * (ABNORMAL) POC GLUCOSE (12/31/2021 11:44 PM CDT) GLUCOSE POC 133(H) 74 - 99 mg/dL 12/31/2021 11:44 PM CDT [facility] POINT OF CARE Blood, whole 12/31/2021 11:4 4 PM CDT 12/31/2021 11:44 PM CDT Thelma Ken MD POINT OF CARE TE STING Performing Organization Address [facility]/ZIP Co de Phone Number [facility] POINT OF CARE CLIA # [id number] [place] [address] * (ABNORMAL) POC GLUCOSE (12/31/2021 8:27 PM CDT) GLUCOSE POC 142(H) 74 - 99 mg/dL 12/31/2021 8:27 PM CDT [facility] POINT OF CARE Blood, whole 12/31/2021 8:27 PM CDT 12/31/2021 8:29 PM CDT Thelma Ken MD POINT OF CARE TE STING Performing Organization Address City/[facility]/ZIP Co de Phone Number [facility] POINT OF CARE CLIA # [id number] [place] [address] * (ABNORMAL) POC GLUCOSE (12/31/2021 3:56 PM CDT) GLUCOSE POC 152(H) 74 - 99 mg/dL 12/31/2021 3:56 PM CDT [facility] POINT OF CARE Blood, whole 12/31/2021 3:56 PM CDT 12/31/2021 4:07 PM CDT Thelma Ken MD POINT OF CARE TE STING Performing Organization Address [facility] Co de Phone Number [facility] POINT OF CARE CLIA # [id number] [place] [address] * (ABNORMAL) POC GLUCOSE (12/31/2021 1:20 PM CDT) GLUCOSE POC 130(H) 74 - 99 mg/dL 12/31/2021 1:20 PM CDT [facility] POINT OF CARE Blood, whole 12/31/2021 1:20 PM CDT 12/31/2021 1:22 PM CDT Thelma Ken MD POINT OF CARE TE STING Performing Organization Address City/[facility]/ZIP Co de Phone Number [facility] POINT OF CARE CLIA # [id number] [place] [address] * (ABNORMAL) POC GLUCOSE (12/31/2021 8:54 AM CDT) GLUCOSE POC 127(H) 74 - 99 mg/dL 12/31/2021 8:54 AM CDT [facility] POINT OF CARE Blood, whole 12/31/2021 8:54 AM CDT 12/31/2021 9:02 AM CDT Thelma Ken MD POINT OF CARE TE STING [facility] POINT OF CARE CLIA # [id number] [place] [address] * (ABNORMAL) COMPREHENSIVE METABOLIC PANEL (12/31/2021 5:23 AM CDT) SODIUM 141 136 - 145 mmol/L 12/31/2021 6:22 AM CDT [facility] POTASSIUM 4.1 3.4 - 5.1 mmol/L 12/31/2021 6:22 AM CDT [facility] CHLORIDE 105 98 - 107 mmol/L 12/31/2021 6:22 AM CDT [facility] CO2 26 22 - 29 mmol/L 12/31/2021 6:22 AM CDT [facility] CALCIUM 8.9 8.6 - 10.4 mg/dL 12/31/2021 6:22 AM CDT [facility] BUN 20 6 - 20 mg/dL 12/31/2021 6:22 AM CDT [facility] CREATININE 0.79 0.51 - 0.95 mg/dL 12/31/2021 6:22 AM CDT [facility] GLUCOSE 168(H) 74 - 99 mg/dL 12/31/2021 6:22 AM CDT [facility] TOTAL PROTEIN 6.4 6.3 - 8.7 g/dL 12/31/2021 6:22 AM CDT [facility] ALBUMIN 3.6 3.5 - 5.2 g/dL 12/31/2021 6:22 AM CDT [facility] BILIRUBIN TOTAL 0.3 0.2 - 1.1 mg/dL 12/31/2021 6:22 AM CDT [facility] ALKALINE PHOSPHATASE 77 40 - 150 U/L 12/31/2021 6:22 AM T [facility] AST 35(H) 0 - 33 U/L 12/31/2021 6:22 AM T [facility] ALT 38(H) 0 - 33 U/L 12/31/2021 6:22 AM T [facility] GFR >60 >=60 mL/min/1.7 3 sq meter 12/31/2021 6:22 AM T [facility] Comment:eGFR calculated with 2020 CKD-EPI equation. Vegetarian diet, extremely high or low muscle mass, and may affect results. Cystatin C with Glomerular Filtration Rate is a suitable alternative for these patients. ANION GAP 10 8 - 16 mmol/L 12/31/2021 6:22 AM [facility] Blood Venipuncture / Unknown 12/31/2021 5:23 AM CDT 12/31/2021 5:52 AM CDT Thelma Ken MD CHEMISTRY ORDERA BLES [facility] CLIA# [id number] [place] [address] * (ABNORMAL) CBC WITHOUT DIFFERENTIAL (12/31/2021 5:23 AM CDT) WBC 12.9(H) 4.5 - 10.5 K/uL 12/31/2021 5:54 AM T [facility] RBC 3.44(L) 3.90 - 4.90 M/uL 12/31/2021 5:54 AM T [facility] HEMOGLOBIN 9.5(L) 11.8 - 14.8 g/dL 12/31/2021 5:54 AM T [facility] HEMATOCRIT 29.3(L) 35.5 - 44.0 % 12/31/2021 5:54 AM T [facility] MCV 85.1 82.0 - 99.0 fL 12/31/2021 5:54 AM CDT [facility] MCH 27.6(L) 27.8 - 34.5 pg 12/31/2021 5:54 AM CDT [facility] MCHC 32.4(L) 32.5 - 35.5 g/dL 12/31/2021 5:54 AM CDT [facility] PLATELETS 243 160 - 420 K/uL 12/31/2021 5:54 AM CDT [facility] MPV 7.3(L) 8.7 - 12.7 fL 12/31/2021 5:54 AM CDT [facility] RDW 16.6(H) 11.5 - 14.5 % 12/31/2021 5:54 AM CDT [facility] Blood Venipuncture / Unknown 12/31/2021 5:23 AM CDT 12/31/2021 5:49 AM CDT Thelma Ken MD HEMATOLOGY ORDER PHILIPP [facility] CLIA# [id number] [place] [address] * (ABNORMAL) POC GLUCOSE (12/31/2021 5:17 AM CDT) GLUCOSE POC 162(H) 74 - 99 mg/dL 12/31/2021 5:17 AM CDT [facility] POINT OF CARE Blood, whole 12/31/2021 5:17 AM CDT 12/31/2021 5:25 AM CDT Thelma Ken MD POINT OF CARE TE STING [facility] POINT OF CARE CLIA # [id number] [place] [address] * (ABNORMAL) POC GLUCOSE (12/31/2021 3:03 AM CDT) GLUCOSE POC 187(H) 74 - 99 mg/dL 12/31/2021 3:03 AM CDT [facility] POINT OF CARE Blood, whole 12/31/2021 3:03 AM CDT 12/31/2021 3:07 AM CDT Thelma Ken MD POINT OF CARE TE STING Performing Organization Address City/[facility]/ZIP Co de Phone Number [facility] POINT OF CARE CLIA # [id number] [place] [address] * (ABNORMAL) POC GLUCOSE (12/30/2021 11:55 PM CDT) GLUCOSE POC 164(H) 74 - 99 mg/dL 12/30/2021 11:55 PM CDT [facility] POINT OF CARE Blood, whole 12/30/2021 11:5 5 PM CDT 12/30/2021 11:57 PM CDT Thelma Ken MD POINT OF CARE TE STING Performing Organization Address [facility] Co de Phone Number [facility] POINT OF CARE CLIA # [id number] [place] [address] * (ABNORMAL) POC GLUCOSE (12/30/2021 9:12 PM CDT) GLUCOSE POC 150(H) 74 - 99 mg/dL 12/30/2021 9:12 PM CDT [facility] POINT OF CARE Blood, whole 12/30/2021 9:12 PM CDT 12/30/2021 9:23 PM CDT Thelma Ken MD POINT OF CARE TE STING Performing Organization Address City/[facility]/ZIP Co de Phone Number [facility] POINT OF CARE CLIA # [id number] [place] [address] * (ABNORMAL) POC GLUCOSE (12/30/2021 4:08 PM CDT) GLUCOSE POC 145(H) 74 - 99 mg/dL 12/30/2021 4:08 PM CDT [facility] POINT OF CARE Blood, whole 12/30/2021 4:08 PM CDT 12/30/2021 4:19 PM CDT Thelma Ken MD POINT OF CARE TE STING Performing Organization Address City/[facility]/ZIP Co de Phone Number [facility] POINT OF CARE CLIA # [id number] [place] [address] * (ABNORMAL) POC GLUCOSE (12/30/2021 1:36 PM CDT) GLUCOSE POC 156(H) 74 - 99 mg/dL 12/30/2021 1:36 PM CDT [facility] POINT OF CARE Blood, whole 12/30/2021 1:36 PM CDT 12/30/2021 1:47 PM CDT Thelma Ken MD POINT OF CARE TE STING Performing Organization Address [facility]/ZIP Co de Phone Number [facility] POINT OF CARE CLIA # [id number] [place] [address] * (ABNORMAL) POC GLUCOSE (12/30/2021 9:56 AM CDT) GLUCOSE POC 153(H) 74 - 99 mg/dL 12/30/2021 9:56 AM CDT [facility] POINT OF CARE Blood, whole 12/30/2021 9:56 AM CDT 12/30/2021 10:07 AM CDT Thelma Ken MD POINT OF CARE TE STING Performing Organization Address City/[facility]/ZIP Co de Phone Number [facility] POINT OF CARE CLIA # [id number] [place] [address] * (ABNORMAL) COMPREHENSIVE METABOLIC PANEL (12/30/2021 5:04 AM CDT) [facility] SODIUM 141 136 - 145 mmol/L 12/30/2021 5:49 AM T [facility] POTASSIUM 4.5 3.4 - 5.1 mmol/L 12/30/2021 5:49 AM [facility] CHLORIDE 105 98 - 107 mmol/L 12/30/2021 5:49 AM [facility] CO2 23 22 - 29 mmol/L 12/30/2021 5:49 AM T [facility] CALCIUM 9.1 8.6 - 10.4 mg/dL 12/30/2021 5:49 AM [facility] BUN 21(H) 6 - 20 mg/dL 12/30/2021 5:49 AM [facility] CREATININE 0.90 0.51 - 0.95 mg/dL 12/30/2021 5:49 AM [facility] GLUCOSE 156(H) 74 - 99 mg/dL 12/30/2021 5:49 AM [facility] TOTAL PROTEIN 6.4 6.3 - 8.7 g/dL 12/30/2021 5:49 AM [facility] ALBUMIN 3.8 3.5 - 5.2 g/dL 12/30/2021 5:49 AM [facility] BILIRUBIN TOTAL 0.3 0.2 - 1.1 mg/dL 12/30/2021 5:49 AM [facility] ALKALINE PHOSPHATASE 81 40 - 150 U/L 12/30/2021 5:49 AM [facility] AST 59(H) 0 - 33 U/L 12/30/2021 5:49 AM [facility] ALT 55(H) 0 - 33 U/L 12/30/2021 5:49 AM [facility] GFR >60 >=60 mL/min/1.7 3 sq meter 12/30/2021 5:49 AM T [facility] Comment:eGFR calculated with 2021 CKD-EPI equation. Vegetarian diet, extremely high or low muscle mass, and may affect results. Cystatin C with Glomerular Filtration Rate is a suitable alternative for these patients. ANION GAP 13 8 - 16 mmol/L 12/30/2021 5:49 AM CDT [facility] Blood Venipuncture / Unknown 12/30/2021 5:04 AM CDT 12/30/2021 5:19 AM CDT Thelma Ken MD CHEMISTRY ORDERA BLES [facility] CLIA# [id number] [place] [address] * (ABNORMAL) CBC WITHOUT DIFFERENTIAL (12/30/2021 5:04 AM CDT) WBC 14.1(H) 4.5 - 10.5 K/uL 12/30/2021 5:22 AM CDT [facility] RBC 4.03 3.90 - 4.90 M/uL 12/30/2021 5:22 AM T [facility] HEMOGLOBIN 10.9(L) 11.8 - 14.8 g/dL 12/30/2021 5:22 AM T [facility] HEMATOCRIT 34.2(L) 35.5 - 44.0 % 12/30/2021 5:22 AM T [facility] MCV 84.9 82.0 - 99.0 fL 12/30/2021 5:22 AM T [facility] MCH 27.0(L) 27.8 - 34.5 pg 12/30/2021 5:22 AM T [facility] MCHC 31.9(L) 32.5 - 35.5 g/dL 12/30/2021 5:22 AM T [facility] PLATELETS 300 160 - 420 K/uL 12/30/2021 5:22 AM T [facility] MPV 7.1(L) 8.7 - 12.7 fL 12/30/2021 5:22 AM CDT [facility] RDW 16.9(H) 11.5 - 14.5 % 12/30/2021 5:22 AM CDT [facility] Blood Venipuncture / Unknown 12/30/2021 5:04 AM CDT 12/30/2021 5:20 AM CDT Thelma Ken MD HEMATOLOGY ORDER PHILIPP [facility] CLIA# [id number] [place] [address] * (ABNORMAL) POC GLUCOSE (12/30/2021 5:02 AM CDT) GLUCOSE POC 153(H) 74 - 99 mg/dL 12/30/2021 5:02 AM CDT [facility] POINT OF CARE Blood, whole 12/30/2021 5:02 AM CDT 12/30/2021 5:04 AM CDT Thelma Ken MD POINT OF CARE TE STING Performing Organization Address [facility] Co de Phone Number [facility] POINT OF CARE CLIA # [id number] [place] [address] * (ABNORMAL) POC GLUCOSE (12/30/2021 2:49 AM CDT) GLUCOSE POC 151(H) 74 - 99 mg/dL 12/30/2021 2:49 AM CDT [facility] POINT [facility] CARE Blood, whole 12/30/2021 2:49 AM CDT 12/30/2021 2:50 AM CDT Thelma Ken MD POINT OF CARE TE STING Performing Organization Address City/[facility]/ZIP Co de Phone Number [facility] POINT [facility] CARE CLIA # [id number] [place] [address] * (ABNORMAL) POC GLUCOSE (12/29/2021 11:18 PM CDT) GLUCOSE POC 155(H) 74 - 99 mg/dL 12/29/2021 11:18 PM CDT [facility] POINT [facility] CARE Blood, whole 12/29/2021 11:1 8 PM CDT 12/29/2021 11:19 PM CDT Thelma Ken MD POINT OF CARE TE STING Performing Organization Address [facility]/ZIP Co de Phone Number [facility] POINT OF CARE CLIA # [id number] [place] [address] * (ABNORMAL) POC GLUCOSE (12/29/2021 9:52 PM CDT) GLUCOSE POC 160(H) 74 - 99 mg/dL 12/29/2021 9:52 PM CDT [facility] POINT OF CARE Blood, whole 12/29/2021 9:52 PM CDT 12/29/2021 9:53 PM CDT Thelma Ken MD POINT OF CARE TE STING Performing Organization Address [facility] Co de Phone Number [facility] POINT OF CARE CLIA # [id number] [place] [address] * (ABNORMAL) POC GLUCOSE (12/29/2021 9:01 PM CDT) GLUCOSE POC 159(H) 74 - 99 mg/dL 12/29/2021 9:01 PM CDT [facility] POINT OF CARE Blood, whole 12/29/2021 9:01 PM CDT 12/29/2021 9:02 PM CDT Thelma Ken MD POINT OF CARE TE STING Performing Organization Address City/[facility]/ZIP Co de Phone Number [facility] POINT OF CARE CLIA # [id number] [place] [address] * (ABNORMAL) BASIC METABOLIC PANEL (12/29/2021 5:54 PM CDT) SODIUM 141 136 - 145 mmol/L 12/29/2021 8:01 PM CDT [facility] POTASSIUM 4.5 3.4 - 5.1 mmol/L 12/29/2021 8:01 PM T [facility] CHLORIDE 107 98 - 107 mmol/L 12/29/2021 8:01 PM CDT [facility] CO2 19(L) 22 - 29 mmol/L 12/29/2021 8:01 PM T [facility] CALCIUM 9.6 8.6 - 10.4 mg/dL 12/29/2021 8:01 PM T [facility] BUN 19 6 - 20 mg/dL 12/29/2021 8:01 PM T [facility] CREATININE 0.87 0.51 - 0.95 mg/dL 12/29/2021 8:01 PM T [facility] GLUCOSE 169(H) 74 - 99 mg/dL 12/29/2021 8:01 PM T [facility] GFR >60 >=60 mL/min/1.7 3 sq meter 12/29/2021 8:01 PM T [facility] Comment:eGFR calculated with 2020 CKD-EPI equation. Vegetarian diet, extremely high or low muscle mass, and may affect results. Cystatin C with Glomerular Filtration Rate is a suitable alternative for these patients. ANION GAP 15 8 - 16 mmol/L 12/29/2021 8:01 PM CDT [facility] Blood Venipuncture / Unknown 12/29/2021 5:54 PM CDT 12/29/2021 7:24 PM CDT Omar Dias MD CHEMISTRY ORDERABLES [facility] CLIA# [id number] [place] [address] * (ABNORMAL) CBC WITH DIFFERENTIAL (12/29/2021 5:54 PM CDT) [facility] WBC 12.0(H) 4.5 - 10.5 K/uL 12/29/2021 7:35 PM CDT [facility] RBC 4.21 3.90 - 4.90 M/uL 12/29/2021 7:35 PM CDT [facility] HEMOGLOBIN 11.5(L) 11.8 - 14.8 g/dL 12/29/2021 7:35 PM CDT [facility] HEMATOCRIT 35.2(L) 35.5 - 44.0 % 12/29/2021 7:35 PM CDT [facility] MCV 83.5 82.0 - 99.0 fL 12/29/2021 7:35 PM CDT [facility] MCH 27.2(L) 27.8 - 34.5 pg 12/29/2021 7:35 PM CDT [facility] MCHC 32.6 32.5 - 35.5 g/dL 12/29/2021 7:35 PM CDT [facility] RDW 16.5(H) 11.5 - 14.5 % 12/29/2021 7:35 PM CDT [facility] PLATELETS 314 160 - 420 K/uL 12/29/2021 7:35 PM CDT [facility] MPV 7.3(L) 8.7 - 12.7 fL 12/29/2021 7:35 PM CDT [facility] NEUTROPHILS 86 % 12/29/2021 7:35 PM CDT [facility] LYMPHOCYTES 8 % 12/29/2021 7:35 PM CDT [facility] MONOCYTES 6 % 12/29/2021 7:35 PM CDT [facility] EOSINOPHILS 0 % 12/29/2021 7:35 PM CDT [facility] BASOPHILS 0 % 12/29/2021 7:35 PM CDT [facility] NEUTROPHIL ABSOLUTE 10.30(H) 1.90 - 7.00 K/uL 12/29/2021 7:35 PM CDT [facility] LYMPHOCYTE ABSOLUTE 0.90 0.70 - 4.50 K/uL 12/29/2021 7:35 PM CDT [facility] - [facility] MONOCYTE ABSOLUTE 0.70 0.10 - 1.30 K/uL 12/29/2021 7:35 PM CDT [facility] EOSINOPHIL ABSOLUTE 0.00 0.00 - 0.70 K/uL 12/29/2021 7:35 PM CDT [facility] BASOPHILS ABSOLUTE 0.00 0.00 - 0.20 K/uL 12/29/2021 7:35 PM CDT [facility] Blood Venipuncture / Unknown 12/29/2021 5:54 PM CDT 12/29/2021 7:24 PM CDT Omar Dias MD HEMATOLOGY ORDERABLE S [facility]# [id number] [place] [address] * (ABNORMAL) POC LACTIC ACID (12/29/2021 2:59 PM CDT) [facility] LACTIC ACID POC 6.1(H) <=2.0 mmol/L 12/29/2021 2:59 PM CDT [facility] SPECIMEN SOURCE, GASES POC Arterial 12/29/2021 2:59 PM CDT [facility] Blood 12/29/2021 2:59 PM CDT 12/29/2021 3:01 PM CDT Thelma Ken MD POINT OF CARE TE STING [facility] CLIA# [id number] [place] [address] * (ABNORMAL) OXIMETRY (12/29/2021 2:59 PM CDT) OXYHEMOGLOBIN POC 98.2(H) 94.0 - 97.0 % 12/29/2021 2:59 PM CDT [facility] HEMOGLOBIN POC 11.5(L) 11.8 - 14.8 g/dL 12/29/2021 2:59 PM CDT [facility] OXYGEN CONTENT POC 16.3 mL/dL 12/29/2021 2:59 PM CDT [facility] O2 SATURATION POC 100(H) 94 - 98 % 022 2:59 PM CDT [facility] SPECIMEN SOURCE, GASES POC Arterial 12/29/2021 2:59 PM CDT [facility] SAMPLE SITE, GASES POC N-SY 12/29/2021 2:59 PM CDT [facility] Blood 12/29/2021 2:59 PM CDT 12/29/2021 3:01 PM CDT Thelma Ken MD ABG ORDERABLES [facility] CLIA# [id number] [place], [place] [id number] * (ABNORMAL) METHEMOGLOBIN QUANTITATIVE (12/29/2021 2:59 PM CDT) METHEMOGLOBIN QUANT POC 0.0 <=1.5 % 12/29/2021 2:59 PM CDT [facility] HEMOGLOBIN POC 11.5(L) 11.8 - 14.8 g/dL 12/29/2021 2:59 PM CDT [facility] Blood 12/29/2021 2:59 PM CDT 12/29/2021 3:01 PM CDT Thelma Ken MD ABG ORDERABLES [facility] CLIA# [id number] [place] [address] * (ABNORMAL) CARBOXYHEMOGLOBIN (12/29/2021 2:59 PM CDT) CARBOXYHEMOGLOBIN POC 1.4 <=7.0 % 2:59 PM CDT [facility] HEMOGLOBIN POC 11.5(L) 11.8 - 14.8 g/dL 12/29/2021 2:59 PM CDT [facility] Blood 12/29/2021 2:59 PM CDT 12/29/2021 3:01 PM CDT Thelma Ken MD ABG ORDERABLES [facility] CLIA# [id number] [place] [address] * (ABNORMAL) BLOOD GAS,(INCL. H+H, LYTES, GLUC) (12/29/2021 2:59 PM CDT) PH BLOOD POC 7.42 7.35 - 7.45 12/29/2021 2:59 PM CDT [facility] PCO2 POC 27(L) 35 - 48 mm Hg 12/29/2021 2:59 PM CDT [facility] PO2 POC 207(H) 83 - 108 mm Hg 12/29/2021 2:59 PM CDT [facility] HCO3 (CALC) POC 18(L) 22 - 26 mmol/L 12/29/2021 2:59 PM CDT [facility] O2 SATURATION POC 100(H) 94 - 98 % 12/29/2021 2:59 PM CDT [facility] BASE EXCESS POC -6(L) -2 - 3 mmol/L 12/29/2021 2:59 PM CDT [facility] HEMOGLOBIN POC 11.5(L) 11.8 - 14.8 g/dL 12/29/2021 2:59 PM CDT [facility] HEMATOCRIT POC 35 35 - 44 % 12/29/2021 2:59 PM CDT [facility] Comment:Estimated Value GLUCOSE POC 185(H) 74 - 99 mg/dL 12/29/2021 2:59 PM CDT [facility] SODIUM POC 135 135 - 145 mmol/L 12/29/2021 2:59 PM CDT [facility] POTASSIUM POC 3.7 3.5 - 4.9 mmol/L 12/29/2021 2:59 PM CDT [facility] CHLORIDE POC 106 98 - 107 mmol/L 12/29/2021 2:59 PM CDT [facility] CALCIUM IONIZED POC 4.7(L) 4.8 - 5.2 mg/dL 12/29/2021 2:59 PM CDT [facility] PH TEMP CORRECT 7.42 7.35 - 7.45 12/30/19 2:59 PM CDT [facility] PCO2 TEMP CORRECT 27(L) 35 - 48 mm Hg 12/29/2021 2:59 PM CDT [facility] PO2 TEMP CORRECT 207(H) 83 - 108 mm Hg 12/29/2021 2:59 PM CDT [facility] SPECIMEN SOURCE, GASES POC Arterial 12/29/2021 2:59 PM CDT [facility] PATIENT'S TEMPERATURE POC 37.0 degrees 12/29/2021 2:59 PM CDT [facility] OXYGEN CONTENT POC 16.3 mL/dL 12/29/2021 2:59 PM CDT [facility] Blood, arterial 12/29/2021 2 :59 PM CDT 12/29/2021 3:01 PM CDT Thelma Ken MD ABG ORDERABLES [facility] CLIA# [id number] [place] [address] * (ABNORMAL) POC LACTIC ACID (12/29/2021 1:05 PM CDT) LACTIC ACID POC 4.8(H) <=2.0 mmol/L 12/29/2021 1:05 PM CDT [facility] SPECIMEN SOURCE, GASES POC Arterial 12/29/2021 1:05 PM CDT [facility] Blood 12/29/2021 1:05 PM CDT 12/29/2021 1:06 PM CDT Thelma Ken MD POINT OF CARE TE STING [facility] CLIA# [id number] [place] [address] * (ABNORMAL) OXIMETRY (12/29/2021 1:05 PM CDT) OXYHEMOGLOBIN POC 98.3(H) 94.0 - 97.0 % 12/29/2021 1:05 PM CDT [facility] HEMOGLOBIN POC 12.2 11.8 - 14.8 g/dL 12/29/2021 1:05 PM CDT [facility] OXYGEN CONTENT POC 17.3 mL/dL 12/29/2021 1:05 PM CDT [facility] O2 SATURATION POC 100(H) 94 - 98 % 022 1:05 PM CDT [facility] SPECIMEN SOURCE, GASES POC Arterial 12/29/2021 1:05 PM CDT [facility] SAMPLE SITE, GASES POC N-SY 12/29/2021 1:05 PM CDT [facility] Blood 12/29/2021 1:05 PM CDT 12/29/2021 1:06 PM CDT Thelma Ken MD ABG ORDERABLES [facility]# [id number] [place] [address] * METHEMOGLOBIN QUANTITATIVE (12/29/2021 1:05 PM CDT) METHEMOGLOBIN QUANT POC 0.2 <=1.5 % 12/29/2021 1:05 PM CDT [facility] HEMOGLOBIN POC 12.2 11.8 - 14.8 g/dL 12/29/2021 1:05 PM CDT [facility] Blood 12/29/2021 1:05 PM CDT 12/29/2021 1:06 PM CDT Thelma Ken MD ABG ORDERABLES Performing Organization Address City/[facility]/ZIP Co de Phone Number [facility]# [id number] [place], [place] [id number] * CARBOXYHEMOGLOBIN (12/29/2021 1:05 PM CDT) [facility] CARBOXYHEMOGLOBIN POC 1.0 <=7.0 % 1:05 PM CDT [facility] HEMOGLOBIN POC 12.2 11.8 - 14.8 g/dL 12/29/2021 1:05 PM CDT [facility] Blood 12/29/2021 1:05 PM CDT 12/29/2021 1:06 PM CDT Thelma Ken MD ABG ORDERABLES Performing Organization Address City/[facility]/ZIP Co de Phone Number [facility]# [id number] [place] [address] * (ABNORMAL) BLOOD GAS,(INCL. H+H, LYTES, GLUC) (12/29/2021 1:05 PM CDT) Pathologist [facility] PH BLOOD POC 7.38 7.35 - 7.45 12/29/2021 1:05 PM CDT [facility] PCO2 POC 33(L) 35 - 48 mm Hg 12/29/2021 1:[address] [facility] PO2 POC 203(H) 83 - 108 mm Hg 12/29/2021 1:05 PM [facility] HCO3 (CALC) POC 20(L) 22 - 26 mmol/L 12/29/2021 1:05 PM [facility] O2 SATURATION POC 100(H) 94 - 98 % 12/29/2021 1:05 PM [facility] BASE EXCESS POC -5(L) -2 - 3 mmol/L 12/29/2021 1:05 PM [facility] HEMOGLOBIN POC 12.2 11.8 - 14.8 g/dL 12/29/2021 1:05 PM [facility] HEMATOCRIT POC 37 35 - 44 % 12/29/2021 1:05 PM [facility] Comment:Estimated Value GLUCOSE POC 172(H) 74 - 99 mg/dL 12/29/2021 1:05 PM [facility] SODIUM POC 136 135 - 145 mmol/L 12/29/2021 1:05 PM [facility] POTASSIUM POC 3.4(L) 3.5 - 4.9 mmol/L 12/29/2021 1:05 PM [facility] CHLORIDE POC 106 98 - 107 mmol/L 12/29/2021 1:05 PM [facility] CALCIUM IONIZED POC 5.0 4.8 - 5.2 mg/dL 12/29/2021 1:05 PM [facility] PH TEMP CORRECT 7.38 7.35 - 7.45 12/30/19 1:05 PM [facility] PCO2 TEMP CORRECT 33(L) 35 - 48 mm Hg 12/29/2021 1:05 PM [facility] PO2 TEMP CORRECT 203(H) 83 - 108 mm Hg 12/29/2021 1:05 PM [facility] SPECIMEN SOURCE, GASES POC Arterial 12/29/2021 1:05 PM [facility] PATIENT'S TEMPERATURE POC 37.0 degrees 12/29/2021 1:05 PM CDT [facility] OXYGEN CONTENT POC 17.3 mL/dL 12/29/2021 1:05 PM CDT [facility] Blood, arterial 12/29/2021 1 :05 PM CDT 12/29/2021 1:06 PM CDT Thelma Ken MD ABG ORDERABLES [facility]# [id number] [place] [address] * (ABNORMAL) POC LACTIC ACID (12/29/2021 11:11 AM CDT) LACTIC ACID POC 5.0(H) <=2.0 mmol/L 12/29/2021 11:11 AM CDT [facility] SPECIMEN SOURCE, GASES POC Arterial 12/29/2021 11:11 AM CDT [facility] Blood 12/29/2021 11:1 1 AM CDT 12/29/2021 11:13 AM CDT Thelma Ken MD POINT OF CARE TE STING Performing Organization Address City/[facility]/ZIP Co de Phone Number [facility]# [id number] [place] [address] * (ABNORMAL) OXIMETRY (12/29/2021 11:11 AM CDT) OXYHEMOGLOBIN POC 97.8(H) 94.0 - 97.0 % 12/29/2021 11:11 AM CDT [facility] HEMOGLOBIN POC 12.6 11.8 - 14.8 g/dL 12/29/2021 11:11 AM CDT [facility] OXYGEN CONTENT POC 17.8 mL/dL 12/29/2021 11:11 AM CDT [facility] O2 SATURATION POC 99(H) 94 - 98 % 022 11:11 AM CDT [facility] SPECIMEN SOURCE, GASES POC Arterial 12/29/2021 11:11 AM CDT [facility] SAMPLE SITE, GASES POC N-SY 12/29/2021 11:11 AM CDT [facility] Blood 12/29/2021 11:1 1 AM CDT 12/29/2021 11:13 AM CDT Thelma Ken MD ABG ORDERABLES [facility] CLIA# [id number] [place] [address] * METHEMOGLOBIN QUANTITATIVE (12/29/2021 11:11 AM CDT) METHEMOGLOBIN QUANT POC 0.6 <=1.5 % 12/29/2021 11:11 AM CDT [facility] HEMOGLOBIN POC 12.6 11.8 - 14.8 g/dL 12/29/2021 11:11 AM CDT [facility] Blood 12/29/2021 11:1 1 AM CDT 12/29/2021 11:13 AM CDT Thelma Ken MD ABG ORDERABLES [facility] CLIA# [id number] [place] [address] * CARBOXYHEMOGLOBIN (12/29/2021 11:11 AM CDT) CARBOXYHEMOGLOBIN POC 0.5 <=7.0 % 11:11 AM CDT [facility] HEMOGLOBIN POC 12.6 11.8 - 14.8 g/dL 12/29/2021 11:11 AM CDT [facility] Blood 12/29/2021 11:1 1 AM CDT 12/29/2021 11:13 AM CDT Thelma Ken MD ABG ORDERABLES [facility] CLIA# [id number] [place] [address] * (ABNORMAL) BLOOD GAS,(INCL. H+H, LYTES, GLUC) (12/29/2021 11:11 AM CDT) [facility] PH BLOOD POC 7.47(H) 7.35 - 7.45 12/29/2021 11:11 AM CDT [facility] PCO2 POC 27(L) 35 - 48 mm Hg 12/29/2021 11:11 AM CDT [facility] PO2 POC 198(H) 83 - 108 mm Hg 12/29/2021 11:11 AM CDT [facility] HCO3 (CALC) POC 20(L) 22 - 26 mmol/L 12/29/2021 11:11 AM CDT [facility] O2 SATURATION POC 99(H) 94 - 98 % 12/29/2021 11:11 AM CDT [facility] BASE EXCESS POC -3(L) -2 - 3 mmol/L 12/29/2021 11:11 AM T [facility] HEMOGLOBIN POC 12.6 11.8 - 14.8 g/dL 12/29/2021 11:11 AM CDT [facility] HEMATOCRIT POC 38 35 - 44 % 12/29/2021 11:11 AM T [facility] Comment:Estimated Value GLUCOSE POC 167(H) 74 - 99 mg/dL 12/29/2021 11:11 AM CDT [facility] SODIUM POC 136 135 - 145 mmol/L 12/29/2021 11:11 AM CDT [facility] POTASSIUM POC 3.1(L) 3.5 - 4.9 mmol/L 12/29/2021 11:11 AM CDT [facility] CHLORIDE POC 106 98 - 107 mmol/L 12/29/2021 11:11 AM CDT [facility] CALCIUM IONIZED POC 4.4(L) 4.8 - 5.2 mg/dL 12/29/2021 11:11 AM CDT [facility] PH TEMP CORRECT 7.47(H) 7.35 - 7.45 12/30/19 11:11 AM CDT [facility] PCO2 TEMP CORRECT 27(L) 35 - 48 mm Hg 12/29/2021 11:11 AM CDT [facility] PO2 TEMP CORRECT 198(H) 83 - 108 mm Hg 12/29/2021 11:11 AM CDT [facility] SPECIMEN SOURCE, GASES POC Arterial 12/29/2021 11:11 AM T [facility] PATIENT'S TEMPERATURE POC 37.0 degrees 12/29/2021 11:11 AM T [facility] OXYGEN CONTENT POC 17.8 mL/dL 12/29/2021 11:11 AM CDT [facility] Blood, arterial 12/29/2021 1 1:11 AM CDT 12/29/2021 11:13 AM CDT Thelma Ken MD ABG ORDERABLES [facility]# [id number] [place] [address] * PATHOLOGY (12/29/2021 9:44 AM CDT) CASE REPORT Surgical Pathology Report ? Case: [id number] ? Authorizing Provider: ??Thelma Ken MD ??Collected: ? 12/29/2021 09:44 AM ? Ordering Location: ? [facility] ? Received: ?12/29/2021 04:35 PM ? Operating Room ? Pathologist: ? Leathersich, Nicolle M, MD ? Specimens: ?? A) - Lymph node, Right gastroepiploic lymph nodes ? B) - Gallbladder ? C) - Lymph node, Portal vein lymph node ? D) - Other, specify, Pancreatic stent, gross only ? E) - Pancreas, whipple ? 2 4:12 PM [facility] FINAL DIAGNOSIS Lymph node, right gastroepiploic, [...] with no evidence of metastatic carcinoma (0/16) 2 4:12 PM [facility] S DESCRIPTION Received in formalin labeled [...] a maximal wall thickness of 0.3 cm. [place] sections of the gallbladder and cystic duct [...] nodes ranging from 0.2 to 2 cm. [place] sections are submitted as follows: E1-proximal small [...] entirely submitted in [id number]. 2 4:12 PM [facility] MICROSCOPIC DESCRIPTION The ampullary mass shows a [...] findings in these blocks. 2 4:12 PM [facility] OPERATIVE PROCEDURE 1: WHIPPLE 2 4:12 PM [facility] CLINICAL INFORMATION PANCREATIC CYST 2 4:12 PM [facility] SYNOPTIC REPORT AMPULLA OF VATER AMPULLA OF [...] pT Category: ?pT0 ?? pN Category: ?pN0 2 4:12 PM CDT [facility] COMMENT Immunohistochemical stains were performed, if any, and interpreted at [facility] ([facility]) Laboratory with appropriately staining controls. This test was developed and its performance characteristics determined by [facility] Lab. It has not been cleared or [...] and other antigens. 2 4:12 PM CDT [facility] Tissue ENTIRE LYMPH NODE / Unknown Collection [...] CDT Thelma Ken MD PATHOLOGY/CYTOLO GY ORDERABLES [facility] CLIA# [id number] [place] [address] * (ABNORMAL) POC LACTIC ACID (12/29/2021 8:57 AM CDT) LACTIC ACID POC 2.3(H) <=2.0 mmol/L 12/29/2021 8:57 AM CDT [facility] SPECIMEN SOURCE, GASES POC Arterial 12/29/2021 8:57 AM CDT [facility] Blood 12/29/2021 8:57 AM CDT 12/29/2021 8:59 AM CDT Thelma Ken MD POINT OF CARE TE STING [facility] CLIA# [id number] [place] [address] * (ABNORMAL) OXIMETRY (12/29/2021 8:57 AM CDT) OXYHEMOGLOBIN POC 98.2(H) 94.0 - 97.0 % 12/29/2021 8:57 AM CDT [facility] HEMOGLOBIN POC 12.0 11.8 - 14.8 g/dL 12/29/2021 8:57 AM CDT [facility] OXYGEN CONTENT POC 16.9 mL/dL 12/29/2021 8:57 AM CDT [facility] O2 SATURATION POC 99(H) 94 - 98 % 022 8:57 AM CDT [facility] SPECIMEN SOURCE, GASES POC Arterial 12/29/2021 8:57 AM CDT [facility] SAMPLE SITE, GASES POC N-SY 12/29/2021 8:57 AM CDT [facility] Blood 12/29/2021 8:57 AM CDT 12/29/2021 8:59 AM CDT Thelma Ken MD ABG ORDERABLES Performing Organization Address City/[facility]/ZIP Co de Phone Number [facility]# [id number] [place] [address] * METHEMOGLOBIN QUANTITATIVE (12/29/2021 8:57 AM CDT) METHEMOGLOBIN QUANT POC 0.2 <=1.5 % 12/29/2021 8:57 AM CDT [facility] HEMOGLOBIN POC 12.0 11.8 - 14.8 g/dL 12/29/2021 8:57 AM CDT [facility] Blood 12/29/2021 8:57 AM CDT 12/29/2021 8:59 AM CDT Thelma Ken MD ABG ORDERABLES Performing Organization Address City/[facility]/ZIP Co de Phone Number [facility]# [id number] [place] [address] * CARBOXYHEMOGLOBIN (12/29/2021 8:57 AM CDT) CARBOXYHEMOGLOBIN POC 0.9 <=7.0 % 8:57 AM CDT [facility] HEMOGLOBIN POC 12.0 11.8 - 14.8 g/dL 12/29/2021 8:57 AM CDT [facility] Blood 12/29/2021 8:57 AM CDT 12/29/2021 8:59 AM CDT Thelma Ken MD ABG ORDERABLES [facility] CLIA# [id number] [place] [address] * (ABNORMAL) BLOOD GAS,(INCL. H+H, LYTES, GLUC) (12/29/2021 8:57 AM CDT) [facility] Signature PH BLOOD POC 7.51(H) 7.35 - 7.45 12/29/2021 8:57 AM CDT [facility] PCO2 POC 30(L) 35 - 48 mm Hg 12/29/2021 8:57 AM CDT [facility] PO2 POC 178(H) 83 - 108 mm Hg 12/29/2021 8:57 AM CDT [facility] HCO3 (CALC) POC 24 22 - 26 mmol/L 12/29/2021 8:57 AM CDT [facility] O2 SATURATION POC 99(H) 94 - 98 % 12/29/2021 8:57 AM CDT [facility] BASE EXCESS POC 2 -2 - 3 mmol/L 12/29/2021 8:57 AM CDT [facility] HEMOGLOBIN POC 12.0 11.8 - 14.8 g/dL 12/29/2021 8:57 AM CDT [facility] [facility] HEMATOCRIT POC 36 35 - 44 % 12/29/2021 8:57 AM CDT [facility] Comment:Estimated Value GLUCOSE POC 155(H) 74 - 99 mg/dL 12/29/2021 8:57 AM CDT [facility] SODIUM POC 136 135 - 145 mmol/L 12/29/2021 8:57 AM CDT [facility] POTASSIUM POC 2.6(L) 3.5 - 4.9 mmol/L 12/29/2021 8:57 AM CDT [facility] CHLORIDE POC 103 98 - 107 mmol/L 12/29/2021 8:57 AM CDT [facility] CALCIUM IONIZED POC 4.6(L) 4.8 - 5.2 mg/dL 12/29/2021 8:57 AM CDT [facility] PH TEMP CORRECT 7.51(H) 7.35 - 7.45 12/30/19 8:57 AM CDT [facility] PCO2 TEMP CORRECT 30(L) 35 - 48 mm Hg 12/29/2021 8:57 AM CDT [facility] PO2 TEMP CORRECT 178(H) 83 - 108 mm Hg 12/29/2021 8:57 AM CDT [facility] SPECIMEN SOURCE, GASES POC Arterial 12/29/2021 8:57 AM CDT [facility] PATIENT'S TEMPERATURE POC 37.0 degrees 12/29/2021 8:57 AM CDT [facility] OXYGEN CONTENT POC 16.9 mL/dL 12/29/2021 8:57 AM CDT [facility] Blood, arterial 12/29/2021 8 :57 AM CDT 12/29/2021 8:59 AM CDT Thelma Ken MD ABG ORDERABLES [facility] CLIA# [id number] [facility] [place] [address] documented in this encounter Visit Diagnoses Not on filedocumented in this encounter Administered Medications Inactive Administered Medications - up to 3 most recent administrations Medication Order MAR Action Action Date Dose Rate Site acetaminophen (TYLENOL) tablet 650 mg 650 mg, Oral, EVERY 6 HOURS, First dose on Sat01/06/22 at 1200, Until Discontinued, Routine Given 01/08/2022 [...] Given 01/05/2022 11:24 PM CDT 1 mg amLODIPine (NORVASC) tablet 5 mg 5 mg, [...] AM CDT 40 mg Ab dominal Tissue fluticasone furoate-vilanteroL (BREO ELLIPTA) 200-25 mcg/dose inhaler 1 Puff 1 Puff, Inhalation, DAILY RESPIRATORY, First dose on 12/30/21 at 0800, Until Discontinued, Routine Given 01/08/2022 9:47 AM CDT 1 Puff Given 01/07/2022 8:07 AM CDT 1 Puff Given 01/06/2022 9:31 AM CDT 1 Puff fluticasone propionate (FLONASE) 50 mcg/spray nasal inhaler 2 Dulac 2 Dulac, Both Nostrils, DAILY PRN, Starting on Sat12/29/21 at 2017, Until Sat01/08/22 at 2020, Allergies, Rhinitis, Routine, Previous Med: fluticasone propionate (FLONASE) 50 mcg/spray Dulac, Suspension nasal inhaler - Orig Sig - Administer 2 Sprays in each nostril 1 time daily as needed. Given 01/04/2022 9:57 AM CDT 2 Sprays heparin, porcine (pf) 10 unit/mL IV syringe [...] Given 01/03/2022 4:42 PM CDT 25 mg metoclopramide (REGLAN) 5 mg/mL injection 10 mg 10 mg, IV, EVERY 6 HOURS, First dose on Sat12/29/21 at 2100, Until Discontinued, Routine Given 01/07/2022 11:3 7 PM CDT 10 mg Given 01/07/2022 5:41 AM CDT 10 mg Given 01/06/2022 11:48 PM CDT 10 mg morphine 4 mg/mL injection 4 mg 4 mg, IV, EVERY 4 HOURS PRN, Starting on Sat12/30/21 at 0838, Until Sat01/08/22 at 2020, Pain [...] PRN, 1 dose, Starting on Sat12/29/21 at 2016, Until Sat01/08/22 at 2020, Other (See Comment), [...] Given 01/06/2022 8:25 PM CDT 5 mg quinapriL (ACCUPRIL) tablet 40 mg 40 mg, Oral, DAILY, First dose on Sat01/04/22 at 0900, Until Discontinued, Routine Given 01/08/2022 9:45 AM CDT 40 mg Given 01/07/2022 8:06 AM CDT 40 mg Given 01/06/2022 9:31 AM CDT 40 mg scopolamine (TRANSDERM-SCOP) 1 mg/72 hr transdermal patch 1 Patch 1 Patch, Transdermal, EVERY 72 HOURS, First dose on Sat01/04/22 at 1000, Until Discontinued, Routine Applied 01/04/2022 [...] Oral, EVERY 6 HOURS, First dose on 5/28/22 at 1200, Until Discontinued, Routine 1117 (Given - Provider: Patrica Smith RN)1800 (Refused - Provider: Patrica Smith RN)2344 (Given - Provider: Stella Chappell, RN) 0546 (Given - Provider: Stella Chappell RN)1200 (Refused - Provider: Patrica Smith RN)1800 (Refused - Provider: Patrica Smith RN)2337 (Given - Provider: Lisandra Alvarenga, JESSICA) 0526 (Given - Provider: Lisandra Alvarenga RN)1200 [...] Patrica Smith RN)1900 (Given - Provider: Stella Chappell RN)2300 (Refused - Provider: Stella Chappell RN) 0547 (Given - Provider: Stella Chappell RN)0700 (Not Given - Provider: Patrica Smith RN [...] Provider: Patrica Smith RN)2348 (Given - Provider: Stelal Chappell, RN) aluminum-magnesium hydroxide (MAALOX) 200-200 mg/5 [...] 0806 (Given - Provider: Patrica Smith RN) 0944 (Given - Provider: Anastacia Jackson, JESSICA) dextrose 5 % in water 250 mL flush bag 25 mL 25 mL, IV, SEE ADMIN INSTRUCTIONS, Starting on Sat01/05/22 at 1533, Until 01/08/22 at 202, Routine enoxaparin (LOVENOX) injection 40 mg 40 [...] Smith RN) 0807 (Given - Provider: Patrica Smith RN) 0947 (Given - Provider: Anastacia Jackson, JESSICA) heparin injection 5,000 Units (CANCELED) 5,000 Units, subCUT, EVERY 8 HOURS, First dose on 12/30/21 at 1200, Until Discontinued, Routine, Post-op - Floor 06 (Given - Provider: Trinity Lucas RN)122 (Given - Provider: Patrica Smith RN)2026 (Given - Provider: Stella Chappell, RN) 0544 (Given - Provider: Stella Chappell, RN) heparin, porcine (pf) 10 unit/mL IV syringe 50-150 Units 50-150 Units, IV, EVERY 12 HOURS, First dose on Sat01/05/22 at 1545, Until Discontinued, Routine 0602 (Given - Provider: Trinity Lucas, RN)1534 (Given - Provider: Patrica Smith, JESSICA) 0543 (Given - Provider: Stella Chappell RN)1449 (Given - Provider: Patrica Smith, JESSICA) 0257 (Given - Provider: Lisandra Alvarenga, RN)1545 (Due) heparin, porcine (pf) 10 unit/mL IV syringe 50-150 Units 50-150 Units, IV, SEE ADMIN INSTRUCTIONS, Starting on Sat01/05/22 at 1533, Until Sat01/08/22 at 2020, Routine 1212 (Given - Provider: Anastacia Jackson, JESSICA) hydroCHLOROthiazide tablet 25 mg 25 mg, Oral, [...] L Morales RN)1116 (Given - Provider: Patrica Smith RN)1800 (Refused - Provider: Patrica Smith RN)2348 (Given - Provider: Stella Chappell RN) 0541 (Given - Provider: Stelal Chappell RN)1200 (Refused - Provider: Patrica Smith RN)1800 (Refused - Provider: Patrica Smith, JESSICA)2337 (Given - Provider: Liasndra Alvarenga, JESSICA) 0600 (Refused - Provider: Lisandra Alvarenga, JESSICA)1200 [...] Patrica Smith RN)2347 (Given - Provider: Stella Chappell, JESSICA) potassium chloride (KLOR-CON) SR tablet 40 mEq [...] Chappell, JESSICA) 2019 (Given - Provider: Lisandra Alvarenga, JESSICA) sodium chloride 0.9 % 250 mL flush bag 25 mL 25 mL, IV, SEE ADMIN INSTRUCTIONS, Starting on Sat01/05/22 at 1533, Until Sat01/08/22 at 2021, Routine sodium chloride flush injection 10-30 mL 10-30 mL, IV, EVERY 12 HOURS, First dose on Sat01/05/22 at 1545, Until Discontinued, Routine 0604 (Given - Provider: Trinity Lucas, JESSICA)1534 (Given - Provider: Patrica Smith RN) 0548 (Given - Provider: Stella Chappell, RN)1449 (Given - Provider: Patrica Smith RN) 0258 (Given - Provider: Lisandra Alvarenga RN)1545 (Due) sodium chloride flush injection 10-30 mL [...] Starting on Avani 01/04/22 at 1746, Until Sat01/08/22 at 2020, Anxiety, Routine, Previous Med: ALPRAZolam (XANAX) 1 mg tablet - Orig Sig - Take 1 mg by mouth nightly as needed for Anxiety. 2024 (Given - Provider: Stella Chappell RN) 2022 (Given - Provider: Lisandra Alvarenga RN) diphenhydrAMINE (BENADRYL) injection 12.5 mg 12.5 mg, IV, POST-PROCEDURE Q 4 HOURS PRN, Starting on Sat12/29/21 at 2017, Until Sat01/08/22 at 2020, Itching, Routine, Post-op - Floor fluticasone propionate (FLONASE) 50 mcg/spray nasal inhaler 2 Dulac 2 Dulac, Both Nostrils, DAILY PRN, Starting on Sat12/29/21 at 2017, Until Sat01/08/22 at 2020, Allergies, Rhinitis, Routine, Previous Med: fluticasone propionate (FLONASE) 50 mcg/spray Dulac, Suspension nasal inhaler - Orig Sig - Administer 2 Sprays in each nostril 1 time daily as needed. morphine 4 mg/mL injection 4 mg 4 mg, IV, EVERY 4 HOURS PRN, Starting on Sat12/30/21 at 0838, Until Sat01/08/22 at 2020, Pain [...] instructions), Routine 1117 (Given - Provider: Patrica Smith, JESSICA)2025 (Given - Provider: Stella Chappell RN) 0535 (Return to Cabinet - Provider: Stella Chappell RN)1449 (Given - Provider: Patrica Smith RN)2337 (Given - Provider: Lisandra Alvarenga RN) documented in this encounter Care Teams Weasand Trimmer Relationship Specialty Start Date End Date Rosibel Muse MD PCP - General Family Practice 05/24/21 05/06/24 documented as of this encounter
--- OUTSIDE RECORDS SUMMARY | 2024-08-17 09:04 | XMS_ITS | Encounter Summary ---
Author Organization [facility] [employer] [facility] Address [address] [place] [address] Care Team Providers Care Covered Button Maker Name Role Phone Rosibel Muse MD Primary Care Provider [phone] Encounter Details Date Type Department Care Team (Late Contact Info) Description 12/04/2021 Orders Only [facility] Oncology and Hematology - [place] [address] [facility] [address] [place] [address] Royal Newell MD [address] [facility] [address] [place] [address] Iron deficiency anemia, unspecified iron [...] suspected to have Coronavirus/COVID-19? 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
--- OUTSIDE RECORDS SUMMARY | 2024-08-17 09:04 | XMS_ITS | Encounter Summary ---
Author Organization [facility] [employer] [facility] Address [address] [place] [address] Care Team Providers Care Ebd Teacher Name Role Phone Rosibel Muse MD Primary Care Provider [phone] Encounter Details Date Type Department Care Team (Late Contact Info) Description 12/06/2021 Abstract [facility] Oncology and Hematology [facility] [address] [place] [address] Usman Johnson, RN Social History [...] Exposure Response Date Recorded In the last month, have you been in contact with someone who was confirmed or suspected to have Coronavirus / COVID-19? No / Unsure 11/20/2021 9:55 AM CDT documented as of this encounter Plan of Treatment Upcoming Encounters Date Type Department Care Team ([facility] Contact Info) Description 08/25/2024 2:00 PM HOTEL BREAKFAST ATTENDANT Office Visit [facility] Oncology and Hematology [facility] [address] [place] [address] Royal Newell MD [address] [facility] [address] [place] [address] documented as of this encounter Visit Diagnoses Not on filedocumented in this encounter Care Teams Ebd Teacher Relationship Specialty Start Date End Date Rosibel Muse MD PCP - General Family Practice 05/24/21 05/06/24 documented as of this encounter
--- OUTSIDE RECORDS SUMMARY | 2024-08-17 09:04 | XMS_ITS | Encounter Summary ---
Author Organization [facility] Address [address] [place] [address] Care Team Providers Care Biometrician Name Role Phone Rosibel Muse MD Primary Care Provider [phone] Reason for Visit * Auth/Cert Specialty Diagnoses / Procedures Referred By Contac t Referred To Contact Diagnoses PANCREATIC CYST Procedures [place] PART REMV PANC,PROX+RE[place] [address] [facility] [address] [place] [address] Referral ID Status Reason Start Date Expiration Date Visits Re quested Visits Authorized [id number] 12/08/2021 1 1 Encounter Details Date Type Department Care Team (Late st Contact Info) Description 12/29/2021 7:44 AM CDT Anesthesia Event [facility] Operating Room [address] [place] [address] [place] [address] [place] [address] Gloria Griffin, HOT [employer] [address] Anesthesia Record Procedure Summary Procedure Name Responsible Anesthesiologist Anesthesia Start Time Anesthesia Stop Time DIAGNOSTIC LAPAROSCOPY , EXPLORATORY LAPROTOMY PANCREATICODUODENECTOMY (WHIPPLE PROCEDURE) (Abdomen) Sabino Rodriguez MD 12/29/21 0744 12/29/21 1733 Events Date Time Event Comment 12/29/2021 0704 0717 Intended Opioids 0744 An Start 0744 An Start Data 0744 In Room This event disp lays the In Room time documented in the Surgical Log. Deleting this event will not remove it from the log but will remove it from the Grid and Graph timeline. 0749 Pre-Induction Immediate pre- induction anesthetic assessment performed. Vital signs as noted on graphic. 0752 An Induction 0754 An Intubation 0826 Anesthesia Ready 0842 Procedure Start This event d isplays the Procedure Start time documented in the Surgical Log. Deleting this event will not remove it from the log but will remove it from the Grid and Graph timeline. 1706 Procedure Stop This event di splays the Procedure Stop time documented in the Surgical Log. Deleting this event will not remove it from the log but will remove it from the Grid and Graph timeline. 1718 An Extubation Emergence unev entful Awake, spontaneous respirations. Adequate muscle strength demonstrated Adequate tidal volume. Orapharynx suctioned. Extubated with positive pressure ventilation. 1723 an stop data 1723 Out of Room This event disp lays the Out of Room time documented in the Surgical Log. Deleting this event will not remove it from the log but will remove it from the Grid and Graph timeline. 1733 An Stop Meds Name Total lidocaine PF (XYLOCAINE MPF) 2% injectio n 3 mL rocuronium (ZEMURON) 10??mg/mL injection 190 mg propofol (DIPRIVAN) injection 240 mg succinycholine (ANECTINE) 140 mg/7 mL iv syringe 120 mg midazolam (VERSED) 2??mg/mL oral solutio n 2 mg clindamycin (CLEOCIN) 600 mg in dextrose 5% 50 mL IVPB 1,200 mg phenylephrine (WILLAM-SYNEPHRINE) 100 mcg/m L injection 2,000 mcg hydromorPHONE (DILAUDID) 2??mg/mL inject ion 1.2 mg phenylephrine (WILLAM-SYNEPHRIN E) 50 mg in 0.9% sodium chloride 250 mL infusion 22.65 mg dexamethasone (DECADRON) 4 mg/mL injecti on 4 mg ropivacaine PF (NAROPIN) 5??mg/mL inject ion 10 mL calcium CHLORIDE 100??mg/mL IV syringe 1 ,000 mg albumin, human (BUMINATE) 25% injection 25 Gram sodium bicarbonate 1??mEq/mL injection ( vial) 25 mEq ondansetron (ZOFRAN) 4 mg/2 mL injection 4 mg sugammadex (BRIDION) 100 mg/mL injection 200 mg lactated ringers infusion 1,500 mL sodium chloride 0.9% 1,600 mL * Agents Name Air Desflurane % Desflurane O2 N2O Inspired N2O O2 * Blood No blood administrations on file. Lines, Drains, and Airways Type Details Placement Removal Epidural 12/29/21 07 by Susanne Oleary MD Drain Present on Admission : No; Tube Number: #1; Orientation: Right:; Location: upper quadrant; Type: Jaime-Loza; Size (Fr): 19 Fr 12/29/21 1537 by Gloria Snow RN Drain Tube Number: #2; Orientation: Right:; Location: upper quadrant; Type: Jaime-Loza; Size (Fr): 19 Fr 12/29/21 1539 by Gloria Snow RN Peripheral IV Orientation: Left; Location: Hand; Device: Angiocath; Gauge: 18 gauge; Insertion Attempts: 1; Patient Tolerance: tolerated well; Pain Prevention: intradermal injection; Removal Indication: (leaking); Removal Interventions: direct pressure, catheter intact 12/29/21 05 by Cary Ramírez RN 01/05/22 1030 by Anastacia Jackson RN Endotracheal Airway Type: ETT, Oral; Cuf f Pressure: cuff inflated; Size: 7; Site: mouth; Attempts: 1; FOV: I; cm: 19; Device: Straight Blade, Stylet; Blade: 2; Secured: secured with tape; Verification: Auscultated bilateral breath sounds, Equal chest movement, Continuous waveform capnography 12/29/21 0754 by Steve Cruz AA 12/29/21 171 by Steve Cruz AA ART Line Orientation: Right:; Location: radial artery; Size (Ga): 20 Ga; Patient Tolerance: tolerated well; Pain Prevention: (GA); Removal Indication: no longer indicated, removed per policy; Removal Interventions: pressure dressing, direct pressure, catheter intact 12/29/21 0754 by Steve Cruz AA 12/29/21 191 by Jody Wynn RN Adult Central Line: Quad Lumen Orientation: Right:; Location: internal jugular vein; Size: 8.5 Fr 12/29/21 0800 by Steve Cruz AA 01/03/22 1745 by Kriss Islas RN Indwelling Urethral Catheter 12/29/21; 0808; No; Indwelling double lumen catheter; 100% silicone; 16 Fr; inserted; 2; 10; 10; 01/03/22; 1530 12/29/21 0808 by Lili Cesar RN 01/03/22 1530 by Kriss Islas RN NG/OG Tube Location: left nostril 12/29/21 1340 by Nano Barker RN 01/03/22 1535 by Kriss Islas RN Incision 12/29/21; 1607; surgical incision; other (comment); abdomen; 01/09/22; 0621 12/29/21 1607 by Gloria Snow RN 01/09/22 0621 by PROVIDER, DISCHARGE PATIENT documented in this encounter Social History Tobacco [...] AM CDT documented as of this encounter OR Notes * Anesthesia Postprocedure Evaluation - Rater, Bhupinder Jaquez MD - 12/29/2021 6:46 PM CDT Post Anesthesia Evaluation Vitals: Vitals Value Taken Time BP 120/81 12/29/21 1832 Temp 37.2 ??C 12/29/21 1733 Resp 15 12/29/21 1733 SpO2 99 % 12/29/21 1846 Pulse 101 12/29/21 1846 Heart Rate 102 bpm 12/29/21 1846 Vitals shown include unvalidated device data. Pain Rating: Pain Rating: Rest: 4 (12/29/211829) Pain Rating: Activity: 4 (12/29/211829) Anesthesia Post Evaluation Patient location during evaluation: PACU Patient participation: patient was able to participate in the post op evaluation Level of consciousness: 0 = alert, responsive, answers simple questions appropriately, able to perform simple tasks Pain management: adequate Airway patency: patent Nausea or Vomiting: none Cardiovascular status: regular rate and rhythm Respiratory status: no respiratory symptoms Hydration status: well hydrated No complications documented. Bhupinder Alas MD * Anesthesia Handoff - Steve Mclaughlin AA-C - 12/29/2021 5:34 PM CDT Post-Anesthetic transfer of care report elements to appropriate post-anesthesia recovery environment completed in accordance with procedure. I completed my handoff to the receiving nurse during which we: 1. Identified the patient 2. Identified the responsible provider 3. Reviewed the pertinent medical history 4. Discussed the surgical course 5. Reviewed intra-op anesthesia management and issues during anesthesia 6. Set expectations for post-procedure period 7. Orders as necessary and appropriate for continuation of care are present in Epic. 8. Allowed opportunity for questions and acknowledgement of understanding. Vital Signs: BP: 126/73 (12/29/2021 5:33 PM) Pulse: (!) 101 (12/29/2021 5:33 PM) Temp: 37.2 ??C (12/29/2021 5:33 PM) Resp: 15 (12/29/2021 5:33 PM) SpO2: 100 % (12/29/2021 5:33 PM) 5:34 PM ELIOT Martinez * Anesthesia Procedure Notes - Steve Mclaughlin AA-C - 12/29/2021 9:05 AM CDT Associated Order(s): Central Line Insertion Central Line Insertion Start Time: 12/29/2021 8:00 AM End Time: 12/29/2021 8:15 AM Patient location during procedure: ORPerformed By: Anesthesiologist: Sabino Rodriguez MD Assisted By: Indications: IV medication, vascular access and vasoactive infusions Local anesthetic: GA. Sedation: Patient sedated: yes Sedatives: see MAR for details Analgesia: see MAR for details Vitals: Vital signs were monitored during sedation. Procedure details: Sterile techniques used: hand hygiene performed prior to central venous catheter insertion, antiseptic used, cap, gloves, gown, mask, sterile sheet and eye protection Preparation: Skin prepped with ChloraPrep Patient position: Trendelenburg Location Side: Right Location: Internal jugular vein Catheter type: Quad lumen Catheter size: 8.5 Fr Graball Identification: palpation technique Number of attempts: 1 Successful placement: yes x-ray will be performed Guidewire removed Complications: none Breath sounds/airway entry unchanged Procedure uneventful Post-procedure: line secured, line sutured and dressing applied * Anesthesia Procedure Notes - Steve Mclaughlin AA-C - 12/29/2021 8:09 AM CDT Associated Order(s): Airway Airway Date/Time: 12/29/2021 7:54 AM Location: OR Plan: routine intubation Patient Identity Confirmed by: Verbally with patient and armband Indications and Patient Condition: Indications for Airway Management: Anesthesia Preoxygenated: Yes Patient Position: Sniffing Mask Difficulty Assessment: 0 - not attempted Plan to extubate at end of case: Yes Final Airway Details: Final Airway Type: Endotracheal airway Final Endotracheal Airway: ETT Cuffed: Yes Cuff Volume (mL): 7 Technique Used for Successful ETT Placement: Direct laryngoscopy Devices/Methods Used in Placement: Straight blade and intubating stylet Insertion Site: Oral Laryngoscope Blade/Videolaryngoscope Blade Size: 2 ETT Size (mm): 7.0 Measured from: Teeth ETT to Teeth (cm): 19 Tube secured with: Tape Placement Verified by: auscultation, end tidal CO2 and chest rise Cormack-Lehane Classification: Grade I - full view of glottis Number of Attempts at Approach: 1 Additional Comments: Monitors applied to patient. VSS. Patient preoxygenated with 100% O2. Standard, uneventful induction. Eyes taped closed. BMV not attempted. DL with Schreiber 2 with Grade 1 view. Tube passed through VC with ease. Placement of ETT confirmed with chest rise, condensation, compliance, EtCo2, and auscultation with breath sounds heard bilaterally and equally. Atraumatic intubation with dentition remaining in preoperative state. * Anesthesia Procedure Notes - Susanne Oleary MD - 12/29/2021 7:33 AM CDTAssociated Order(s): Epidural Block Epidural Block Patient location during procedure: pre-op Start time: 12/29/2021 7:15 AM Reason for block: at surgeon's request Staffing Performed By: Anesthesiologist: Susanne Oleary MD and Halina Shafer RN Assisted By: Preanesthetic Checklist Completed: patient identified, IV checked, site marked, risks and benefits discussed, surgical consent, monitors and equipment checked, pre-op evaluation and timeout performed Epidural Hand hygiene performed prior to procedure Patient was prepped and draped in usual sterile fashion Time out performed Mask worn Patient position: sitting Prep: ChloraPrep Local Anesthetic: Lidocaine 1% without epinephrine Patient monitoring: continuous pulse oximetry, EKG, heart rate and non-invasive blood pressure Approach: midline Graball Identification: palpation technique Number of Attempts: 1 Epidural Needle Identification Technique: GILBERT air Needle Type: Tuohy Needle Gauge: 18 G Needle Length: 3.5 in Needle Insertion Depth (cm): 6 Location: thoracic (1-12) and T8-9 Catheter Catheter Type: end hole Catheter Size: 20 G Skin Depth (cm): 10 Test dose: lidocaine 1.5% with epinephrine 1-to-200,000 and negative Test dose: 3 Secured with: Tape and Tegaderm Test Dose Time: 12/29/2021 7:22 AM * Anesthesia Preprocedure Evaluation - Sabino Rodriguez MD - 12/25/2021 10:48 AM CDT Location of Pre-Procedure Assessment: PSA-Authorization for Anesthetic. Anesthesia History: anesthesia history negative. Negative: Anesthetic complications. Endocrine History: History of: Thyroid problem. Thyroid disease type: hypothyroidism. 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 Pulmonary History: History of: Asthma. Severity:mild History of: COPD. History of: Sleep Apnea. Sleep apnea interventions: obstructive.History: Former Tobacco User Years smoked: quit in 2003. Cardiovascular History: HLDSlight SOB w/ exertion or FOS. No CP. Exercise tolerance: poor.History of: Hypertension. HTN is: well controlled. GI/Hepatic History: negative GI/hepatic ROS. Neuro/Psych History: Musculoskeletal History: negative musculoskeletal ROS. Hematologic/Oncologic History: CancerReceived chemotherapy, not currently treating and 10/31/2021. Type of cancer: Pancreas . Obstetric History: Nutrition Status: Other Findings: [facility] PHYSICAL EXAM: PHYSICAL EXAM: Habitus: Average Mental Status: Awake, Alert, Full Affect and Oriented Mallampati:: II TM distance:: >3 FB Neck ROM:: Full Rhythm:: Regular Rate:: Normal Partial lower Breath sounds clear to auscultation Anesthesia Plan ASA Final: 3 General Anesthetic plan and risks discussed with Patient and Spouse. [facility] FINAL DOS EXAM: ASA score (Day of Surgery): 3 Mallampati:: II Cardiovascular: HLD Rhythm:regular Rate: normal breath sounds clear to auscultation Plan: General WITH:: Epidural for postop pain control Discussed:: Invasive monitoring I have reviewed the patient's labs, EKG, and consult information. documented in this encounter Plan of Treatment Upcoming Encounters Date Type Department Care Team (Late st Contact Info) Description 08/25/2024 2:00 PM PATHOLOGIST Office Visit [facility] Oncology and Hematology - [place] [address] [place] [address] Royal Newell MD [address] [place] [address] documented as of this encounter Procedures Procedure Name Priority Date/Time Associated Diagnosis Comments CENTRAL LINE ADULT QUAD LUMEN Routine 12/29/2021 9:05 AM CDT [place] ANES INSERT TUNNELED CV CATH W/O PORT OR PUMP Routine 12/29/2021 9:05 AM CDT [place] ANES INSERT ENDOTRACHEAL AIRWAY Routine 12/29/2021 7:54 AM CDT [place] ANESTHESIA BLOCK PB PLACEHOLDER CHARGE Routine 12/29/2021 7:33 AM CDT documented in this encounter Results * [place] ANES INSERT TUNNELED CV CATH W/O PORT OR PUMP, CENTRAL LINE ADULT QUAD LUMEN (12/29/2021 9:05 AMCDT) Narrative Steve Mclaughlin AA-C - 12/29/2021 9:05 AM CDT Steve Mclaughlin AA-C ? 12/29/2021 ??9:48 AM Central Line Insertion Start Time: 12/29/2021 8:00 AM End Time: 12/29/2021 8:15 AM Patient location during procedure: ORPerformed By: Anesthesiologist: Sabino Rodriguez MD Assisted By: Indications: IV medication, vascular access and vasoactive infusions Local anesthetic: GA. Sedation: Patient sedated: yes Sedatives: see MAR for details Analgesia: see MAR for details Vitals: Vital signs were monitored during sedation. Procedure details: Sterile techniques used: ??hand hygiene performed prior to central venous catheter insertion, antiseptic used, cap, gloves, gown, mask, sterile sheet and eye protection Preparation: Skin prepped with ChloraPrep Patient position: Trendelenburg Location Side: Right Location: Internal jugular vein Catheter type: Quad lumen Catheter size: 8.5 Fr Graball Identification: palpation technique Number of attempts: 1 Successful placement: yes x-ray will be performed Guidewire removed Complications: none Breath sounds/airway entry unchanged Procedure uneventful Post-procedure: line secured, ??line sutured and dressing applied Sabino Rodriguez MD PROCEDURE/MINOR S URGICAL ORDERABLES * [place] ANES INSERT ENDOTRACHEAL AIRWAY (12/29/2021 7:54 AM CDT) Narrative Steve Mclaughlin AA-C - 12/29/2021 7:54 AM CDT Steve Mclaughlin AA-C ? 12/29/2021 ??8:10 AM Airway Date/Time: 12/29/2021 7:54 AM Location: OR Plan: routine intubation Patient Identity Confirmed by: ??Verbally with patient and armband Indications and Patient Condition: ??Indications for Airway Management: ??Anesthesia ??Preoxygenated: Yes ?Patient Position: ??Sniffing ??Mask Difficulty Assessment: ??0 - not attempted ??Plan to extubate at end of case: Yes ?? Final Airway Details: ??Final Airway Type: ??Endotracheal airway ??Final Endotracheal Airway: ??ETT ??Cuffed: Yes ?Cuff Volume (mL): ??7 ??Technique Used for Successful ETT Placement: ??Direct laryngoscopy ??Devices/Methods Used in Placement: ??Straight blade and intubating stylet ??Insertion Site: ??Oral ??Laryngoscope Blade/Videolaryngoscope Blade Size: ??2 ??ETT Size (mm): ??7.0 ??Measured from: ??Teeth ??ETT to Teeth (cm): ??19 ??Tube secured with: ??Tape ??Placement Verified by: auscultation, end tidal CO2 and chest rise ?Cormack-Lehane Classification: ??Grade I - full view of glottis ??Number of Attempts at Approach: ??1 Additional Comments: ?? Monitors applied to patient. VSS. Patient preoxygenated with 100% O2. Standard, uneventful induction. Eyes taped closed. BMV not attempted. DL with Schreiber 2 with Grade 1 view. Tube passed through VC with ease. Placement of ETT confirmed with chest rise, condensation, compliance, EtCo2, and auscultation with breath sounds heard bilaterally and equally. Atraumatic intubation with dentition remaining in preoperative state. Sabino Rodriguez MD PROCEDURE/MINOR S URGICAL ORDERABLES * [place] ANESTHESIA BLOCK PB PLACEHOLDER CHARGE (12/29/2021 7:33 AM CDT) Narrative Susanne Oleary MD - 12/29/2021 7:33 AM CDT Susanne Oleary MD ? 12/29/2021 ??7:34 AM Epidural Block Patient location during procedure: pre-op Start time: 12/29/2021 7:15 AM Reason for block: at surgeon's request Staffing Performed By: Anesthesiologist: Susanne lOeary MD and Halina Shafer RN Assisted By: Preanesthetic Checklist Completed: patient identified, IV checked, site marked, risks and benefits discussed, surgical consent, monitors and equipment checked, pre-op evaluation and timeout performed Epidural Hand hygiene performed prior to procedure Patient was prepped and draped in usual sterile fashion Time out performed Mask worn Patient position: sitting Prep: ChloraPrep Local Anesthetic: Lidocaine 1% without epinephrine Patient monitoring: continuous pulse oximetry, EKG, heart rate and non-invasive blood pressure Approach: midline Graball Identification: palpation technique Number of Attempts: 1 Epidural Needle Identification Technique: GILBERT air Needle Type: Tuohy Needle Gauge: 18 G Needle Length: 3.5 in Needle Insertion Depth (cm): 6 Location: thoracic (1-12) and T8-9 Catheter Catheter Type: end hole Catheter Size: 20 G Skin Depth (cm): 10 Test dose: lidocaine 1.5% with epinephrine 1-to-200,000 and negative ?? Test dose: 3 Secured with: Tape and Tegaderm Test Dose Time: 12/29/2021 7:22 AM Susanne Oleary MD PROCEDU RE/MINOR SURGICAL ORDERABLES documented in this encounter Visit Diagnoses Not on filedocumented in this encounter Administered Medications Inactive Administered Medications - up to 3 most recent administrations Medication Order MAR Action Action Date Dose Rate Site albumin, human 25 % injection IV, INTRA-PROCEDURE PRN, Starting on Sat12/29/21 at 1333, Until Sat12/29/21 at 1733, Routine, Anesthesia Intra-op Given 12/29/2021 1:33 PM CDT 25 Grams calcium CHLORIDE 100 mg/mL (10%) IV syringe IV, INTRA-PROCEDURE PRN, Starting on Sat12/29/21 at 1209, Until Sat12/29/21 at 1733, Routine, Anesthesia Intra-op Given 12/29/2021 3:05 PM CDT 500 mg Given 12/29/2021 12:09 PM CDT 500 mg clindamycin (CLEOCIN) 600 mg in dextrose 5% 50 mL IVPB 600 mg, IV, ONE TIME ONLY, 1 dose, On Sat12/29/21 at 0730, Routine, Antibiotic Indication: Surgical prophylaxis Given 12/29/2021 2:22 PM CDT 600 mg Given 12/29/2021 8:26 AM CDT 600 mg dexamethasone (DECADRON) injection IV, INTRA-PROCEDURE PRN, Starting on Sat12/29/21 at 0803, Until Sat12/29/21 at 1733, Routine, Anesthesia Intra-op Given 12/29/2021 8:03 AM CDT 4 mg HYDROmorphone (DILAUDID) 2 mg/mL injection IV, INTRA-PROCEDURE PRN, Starting on Sat12/29/21 at 0842, Until Sat12/29/21 at 1733, Routine, Anesthesia Intra-op Given 12/29/2021 4:32 PM CDT 0.4 mg Given 12/29/2021 3:22 PM CDT 0.2 mg Given 12/29/2021 1:16 PM CDT 0.2 mg lactated ringers infusion IV, at 100 mL/hr, CONTINUOUS, Starting on Sat12/29/21 at 0600, Until Sat12/29/21 at 2017, Routine, Pre-op New Bag 12/29/2021 5:16 PM CDT New Bag 12/29/2021 11:23 AM CDT Restarted 12/29/2021 7:45 AM CDT lidocaine PF 2% (XYLOCAINE MPF) injection IV, INTRA-PROCEDURE PRN, Starting on Sat12/29/21 at 0752, Until Sat12/29/21 at 1733, Routine, Anesthesia Intra-op Given 12/29/2021 7:52 AM CDT 3 mL midazolam (VERSED) 2 mg/mL oral solution Oral, INTRA-PROCEDURE PRN, Starting on Sat12/29/21 at 0715, Until Sat12/29/21 at 1733, Routine, Anesthesia Intra-op Given 12/29/2021 7:15 AM CDT 2 mg ondansetron (ZOFRAN) 4 mg/2 mL injection IV, INTRA-PROCEDURE PRN, Starting on Sat12/29/21 at 1611, Until Sat12/29/21 at 1733, Routine, Anesthesia Intra-op Given 12/29/2021 4:11 PM CDT 4 mg phenylephrine 1 mg/10 mL (100 mcg/mL) injection IV, INTRA-PROCEDURE PRN, Starting on Sat12/29/21 at 0802, Until Sat12/29/21 at 1733, Routine, Anesthesia Intra-op Given 12/29/2021 4:47 PM CDT 200 mcg Given 12/29/2021 4:38 PM CDT 100 mcg Given 12/29/2021 4:07 PM CDT 100 mcg phenylephrine in 0.9% sodium chloride (NEOSYNEPHRINE) 50 mg/250 mL (200 mcg/mL) infusion IV, INTRA-PROCEDURE CONTINUOUS PRN, Starting on Sat12/29/21 at 0847, Until Sat12/29/21 at 1733, Anesthesia Intra-op Rate Change 12/29/2021 5:03 PM CDT 0.3 mcg/kg/min 6.057 mL/hr Rate Change 12/29/2021 4:38 PM CDT 0.4 mcg/kg/min 8.076 mL /hr Rate Change 12/29/2021 3:28 PM CDT 0.3 mcg/kg/min 6.057 mL /hr propofoL (DIPRIVAN) injection IV, INTRA-PROCEDURE PRN, Starting on Sat12/29/21 at 0752, Until Sat12/29/21 at 1733, Anesthesia Intra-op Given 12/29/2021 4:32 PM CDT 40 mg Given 12/29/2021 4:20 PM CDT 50 mg Given 12/29/2021 7:57 AM CDT 50 mg rocuronium injection IV, INTRA-PROCEDURE PRN, Starting on Sat12/29/21 at 0752, Until Sat12/29/21 at 1733, Routine, Anesthesia Intra-op Given 12/29/2021 2:38 PM CDT 20 mg Given 12/29/2021 1:50 PM CDT 20 mg Given 12/29/2021 12:33 PM CDT 30 mg ropivacaine (PF) (NAROPIN) 5 mg/mL (0.5 %) injection Epidural, INTRA-PROCEDURE PRN, Starting on Sat12/29/21 at 0944, Until Sat12/29/21 at 1733, Routine, Anesthesia Intra-op Given 12/29/2021 4:34 PM CDT 4 mL Given 12/29/2021 3:15 PM CDT 2 mL Given 12/29/2021 1:13 PM CDT 1 mL sodium bicarbonate 1 mEq/mL (8.4 %) vial IV, INTRA-PROCEDURE PRN, Starting on Sat12/29/21 at 1505, Until Sat12/29/21 at 1733, Routine, Anesthesia Intra-op Given 12/29/2021 3:05 PM CDT 25 mEq sodium chloride 0.9% infusion IV, INTRA-PROCEDURE CONTINUOUS PRN, Starting on Sat12/29/21 at 0813, Until Sat12/29/21 at 1733, Routine, Anesthesia Intra-op New Bag 12/29/2021 11:54 AM CDT New Bag 12/29/2021 8:13 AM CDT succinylcholine Chloride (ANECTINE) 140 mg/7 mL (20 mg/mL) injection IV, INTRA-PROCEDURE PRN, Starting on Sat12/29/21 at 0752, Until Sat12/29/21 at 1733, Routine, Anesthesia Intra-op Given 12/29/2021 7:52 AM CDT 120 mg sugammadex (BRIDION) 100 mg/mL injection IV, INTRA-PROCEDURE PRN, Starting on Sat12/29/21 at 1621, Until Sat12/29/21 at 1733, Routine, Anesthesia Intra-op Given 12/29/2021 4:21 PM CDT 200 mg documented in this encounter Care Teams Biometrician Relationship Specialty Start Date End Date Rosibel Muse MD PCP - General Family Practice 05/24/21 05/06/24 documented as of this encounter
--- OUTSIDE RECORDS SUMMARY | 2024-08-17 09:04 | XMS_ITS | Encounter Summary ---
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 [place] [address] Royal Newell MD [address] [facility] [address] [place] [address] documented as of this encounter Visit Diagnoses Not on filedocumented in this encounter Care Teams Emergency Medicine Relationship Specialty Start Date End Date Rosibel Muse MD PCP - General Family Practice 05/24/21 05/06/24 documented as of this encounter
--- OUTSIDE RECORDS SUMMARY | 2024-08-17 09:04 | XMS_ITS | Encounter Summary ---
Author Organization [facility] Address [address] [place] [address] Care Team Providers Care Agricultural Equipment Mechanic Name Role Phone Rosibel Muse MD Primary Care Provider [phone] Encounter Details Date Type Department Care Team (Late Contact Info) Description 12/18/[address] [facility] Oncology and Hematology - Erick [address] [facility] [address] [place] [address] Royal Newell MD [address] [facility] [address] [place] [address] Iron deficiency anemia, unspecified iron [...] (Late Contact Info) Description 08/25/2024 2:00 PM MASTER PLANNER Office Visit 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
--- OUTSIDE RECORDS SUMMARY | 2024-08-17 09:04 | XMS_ITS | Encounter Summary ---
Author Organization [facility] Address [address] [place]: Epic Prelude ADT NIK [place] [address] Care Team Providers Care School Curriculum Developer Name Role Phone Rosibel Muse MD Primary Care Provider [phone] Encounter Details Date Type Department Care Team (Latest Contact Info) Description 12/07/2021 Travel Social History Tobacco Use Types Packs/Day [...] st Contact Info) Description 08/25/2024 2:00 PM BRIM STITCHER Office Visit [facility] Oncology and Hematology - Erick [address] [place] [address] Royal Newell MD [address] [facility] [address] [place] [address] documented as of this encounter Visit Diagnoses Not on filedocumented in this encounter Care Teams School Curriculum Developer Relationship Specialty Start Date End Date Rosibel Muse MD PCP - General Family Practice 05/24/21 05/06/24 documented as of this encounter
--- OUTSIDE RECORDS SUMMARY | 2024-08-17 09:04 | XMS_ITS | Encounter Summary ---
Author Organization [facility] [employer] [facility] Address [address] [place] [address] Care Team Providers Care Information Assistant Name Role Phone Rosibel Muse MD Primary Care Provider [phone] Encounter Details Date Type Department Care Team (Late Contact Info) Description 12/04/2021 Orders Only [facility] Oncology and Hematology [facility] [address] [place] [address] Janeth Dubon Pancreatic cyst Social History Tobacco Use Types Packs/Day Years [...] (Late Contact Info) Description 08/25/2024 2:00 PM ECONOMICS LECTURER Office Visit [facility] Oncology and Hematology [facility] [address] [place] [address] Royal Newell MD [address] [facility] [address] [place] [address] documented as of this encounter Procedures Procedure Name Priority Date/Time Associated Diagnosis Comments CANCER ANTIGEN 19-9 Routine 11/29/2021 documented in this encounter Results * CANCER ANTIGEN 19-9 (11/29/2021) Blood Abstract Provider CHEMISTRY ORDERABLES documented in this encounter Visit Diagnoses Diagnosis Pancreatic cyst Cyst and pseudocyst of pancreas documented in this encounter Care Teams Information Assistant Relationship Specialty Start Date End Date Rosibel Muse MD PCP - General Family Practice 05/24/21 05/06/24 documented as of this encounter
--- OUTSIDE RECORDS SUMMARY | 2024-08-17 09:04 | XMS_ITS | Encounter Summary ---
Author Organization [facility] Address [address] [place] [address] Care Team Providers Care Watch Repairer Name Role Phone Rosibel Muse MD Primary Care Provider Encounter Details Date Type Department Care Team (Latest Contact Info) Description 12/25/2021 10:17 AM CDT - 12/25/2021 11:59 PM CDT Hospital Encounter [facility] Pre Surgical Assessment [address] [place] [address] [place] [address] [facility] [place] [address] [address] Discharge Disposition: Home or Self Care Anesthesia Record Procedure Summary Procedure Name Responsible [...] and Graph timeline. 1733 An Stop Meds * Agents No agents on file. * Blood No blood administrations on file. Lines, Drains, and Airways Type Details Placement Removal Epidural 12/29/21 0715 by Susanne Oleary MD Drain Present on [...] Removal Interventions: direct pressure, catheter intact 12/29/21 0558 by Cary Ramírez RN 01/05/22 1030 by Anastacia Jackson RN Endotracheal Airway Type: ETT, Oral; Cuf f Pressure: cuff inflated; Size: 7; Site: mouth; Attempts: 1; FOV: I; cm: 19; Device: Straight Blade, Stylet; Blade: 2; Secured: secured with tape; Verification: Auscultated bilateral breath sounds, Equal chest movement, Continuous waveform capnography 12/29/21 0754 by Steve Cruz AA 12/29/21 1718 by Steve Cruz AA ART Line Orientation: Right:; Location: radial artery; Size (Ga): 20 Ga; Patient Tolerance: tolerated well; Pain Prevention: (GA); Removal Indication: no longer indicated, removed per policy; Removal Interventions: pressure dressing, direct pressure, catheter intact 12/29/21 0754 by Steve Cruz, AA 12/29/21 1910 by Jody Wynn RN Adult Central Line: Quad Lumen Orientation: Right:; Location: internal jugular vein; Size: 8.5 Fr 12/29/21 0800 by Steve Cruz, AA 01/03/22 1745 by Kriss Islas RN [...] Sign Reading Time Taken Comments Blood Pressure 98/68 12/25/2021 10:39 AM CDT Pulse 83 12/25/2021 10:39 AM CDT Temperature - - Respiratory Rate - - Oxygen Saturation 97% 12/25/2021 10:39 AM CDT Inhaled Oxygen Concentration - - Weight 67.9 kg (149 lb 9.6 oz) 12/25/2021 10:39 AM CDT Height 158.5 cm (5' 2.4 ) 12/25/2021 10:39 AM CD T Body Mass Index 27.01 12/25/2021 10:39 AM CDT documented in this encounter Medications at Time of Discharge Medication Sig Dispensed Refills Start Date End Date naloxone (NARCAN) 4 mg/spray [place], Non-Aerosol EMERGENCY USE ONLY: Administer 1 spray [...] for Anxiety. fluticasone propionate (FLONASE) 50 mcg/spray [place], Suspension nasal inhaler Administer 2 Sprays in [...] mouth daily. 30 Tablet 3 07/11/2021 02/27/2022 ibuprofen (MOTRIN) 800 mg tablet Take 800 mg by mouth every 8 hours as needed. 01/08/2022 documented as of this encounter Plan of Treatment Upcoming Encounters Date Type Department Care Team (Late st Contact Info) Description 08/25/2024 2:00 PM BEEF CATTLE FARMER Office Visit [facility] Oncology and Hematology - Erick [address] [facility] [address] [place] [address] Royal Newell MD [address] [facility] [address] [place] [address] documented as of this encounter Procedures Procedure Name Priority Date/Time Associated Diagnosis Comments CBC WITH DIFFERENTIAL Routine 12/25/2021 11:04 AM CDT Pancreatic cyst Malignant neoplasm of ampulla of Vater PROTIME-INR Routine 12/25/2021 11:04 AM CDT Pancreatic cyst Malignant neoplasm of ampulla of Vater COMPREHENSIVE METABOLIC PANEL Routine 12/25/2021 11:04 AM CDT Pancreatic cyst Malignant neoplasm of ampulla of Vater TYPE AND SCREEN Routine 12/25/2021 11:03 AM CDT Pancreatic cyst Malignant neoplasm of ampulla of Vater EKG 12-LEAD Routine 12/25/2021 10:21 AM CDT Pancreatic cyst Malignant neoplasm of ampulla of Vater documented in this encounter Results * PROTIME-INR (12/25/2021 11:04 AM CDT) PROTIME 12.5 11.5 - 14.7 Seconds 12/25/2021 12:21 PM CDT [facility] INR 0.9 0.9 - 1.1 12/25/2021 12:21 PM CDT [facility] Blood Venipuncture / Unknown 12/25/2021 11:04 AM CDT 12/25/2021 12:06 PM CDT Thelma Prasad MD HEMATOLOGY ORDER PHILIPP [facility] CLIA# [id number] [place] [address] * COMPREHENSIVE METABOLIC PANEL (12/25/2021 11:04 AM CDT) SODIUM 139 136 - 145 mmol/L 12/25/2021 1:05 PM CDT [facility] POTASSIUM 4.7 3.4 - 5.1 mmol/L 12/25/2021 1:05 PM CDT [facility] CHLORIDE 99 98 - 107 mmol/L 12/25/2021 1:05 PM CDT [facility] CO2 26 22 - 29 mmol/L 12/25/2021 1:05 PM CDT [facility] CALCIUM 10.4 8.6 - 10.4 mg/dL 12/25/2021 1:05 PM CDT [facility] BUN 17 6 - 20 mg/dL 12/25/2021 1:05 PM CDT [facility] CREATININE 0.82 0.51 - 0.95 mg/dL 12/25/2021 1:05 PM CDT [facility] GLUCOSE 82 74 - 99 mg/dL 12/25/2021 1:05 PM CDT [facility] TOTAL PROTEIN 7.9 6.3 - 8.7 g/dL 12/25/2021 1:05 PM CDT [facility] ALBUMIN 4.7 3.5 - 5.2 g/dL 12/25/2021 1:05 PM CDT [facility] BILIRUBIN TOTAL 0.2 0.2 - 1.1 mg/dL 12/25/2021 1:05 PM CDT [facility] ALKALINE PHOSPHATASE 132 40 - 150 U/L 12/25/2021 1:05 PM CDT [facility] AST 20 0 - 33 U/L 12/25/2021 1:05 PM [facility] ALT 18 0 - 33 U/L 12/25/2021 1:05 PM [facility] GFR >60 >=60 mL/min/1.7 3 sq meter 12/25/2021 1:05 PM [facility] Comment:eGFR calculated with 2020 CKD-EPI equation. Vegetarian diet, extremely high or low muscle mass, and may affect results. Cystatin C with Glomerular Filtration Rate is a suitable alternative for these patients. ANION GAP 14 8 - 16 mmol/L 12/25/2021 1:05 PM [facility] Blood Venipuncture / Unknown 12/25/2021 11:04 AM CDT 12/25/2021 12:03 PM CDT Thelma Prasad MD CHEMISTRY ORDERA BLES [facility] CLWI# [id number] [place] [address] * (ABNORMAL) CBC WITH DIFFERENTIAL (12/25/2021 11:04 AM CDT) WBC 4.2(L) 4.5 - 10.5 K/uL 12/25/2021 12:08 PM [facility] RBC 4.53 3.90 - 4.90 M/uL 12/25/2021 12:08 PM [facility] HEMOGLOBIN 12.6 11.8 - 14.8 g/dL 12/25/2021 12:08 PM [facility] HEMATOCRIT 38.3 35.5 - 44.0 % 12/25/2021 12:08 PM [facility] MCV 84.5 82.0 - 99.0 fL 12/25/2021 12:08 PM [facility] MCH 27.9 27.8 - 34.5 pg 12/25/2021 12:08 PM [facility] MCHC 33.0 32.5 - 35.5 g/dL 12/25/2021 12:08 PM CDT [facility] RDW 16.4(H) 11.5 - 14.5 % 12/25/2021 12:08 PM CDT [facility] PLATELETS 276 160 - 420 K/uL 12/25/2021 12:08 PM CDT [facility] MPV 7.6(L) 8.7 - 12.7 fL 12/25/2021 12:08 PM CDT [facility] NEUTROPHILS 50 % 12/25/2021 12:08 PM CDT [facility] LYMPHOCYTES 37 % 12/25/2021 12:08 PM CDT [facility] MONOCYTES 9 % 12/25/2021 12:08 PM CDT [facility] EOSINOPHILS 3 % 12/25/2021 12:08 PM CDT [facility] BASOPHILS 1 % 12/25/2021 12:08 PM CDT [facility] NEUTROPHIL ABSOLUTE 2.10 1.90 - 7.00 K/uL 12/25/2021 12:08 PM CDT [facility] LYMPHOCYTE ABSOLUTE 1.50 0.70 - 4.50 K/uL 12/25/2021 12:08 PM CDT [facility] MONOCYTE ABSOLUTE 0.40 0.10 - 1.30 K/uL 12/25/2021 12:08 PM CDT [facility] EOSINOPHIL ABSOLUTE 0.10 0.00 - 0.70 K/uL 12/25/2021 12:08 PM CDT [facility] BASOPHILS ABSOLUTE 0.00 0.00 - 0.20 K/uL 12/25/2021 12:08 PM CDT [facility] Blood Venipuncture / Unknown 12/25/2021 11:04 AM CDT 12/25/2021 12:03 PM CDT Thelma Prasad MD HEMATOLOGY ORDER PHILIPP [facility] CLIA# [id number] [address] [place] [address] * TYPE AND SCREEN (12/25/2021 11:03 AM CDT) ABO GROUP B 12/25/2021 12:51 PM CDT [facility] RH (D) TYPE Positive 12/25/2021 12:51 PM CDT [facility] ANTIBODY SCREEN Negative 12:51 PM CDT [facility] Comment:T&S exp 01/01/2022. Verification needed. Blood Venipuncture / Unknown 12/25/2021 11:03 AM CDT 12/25/2021 12:02 PM CDT Susanne Oleary MD BLOOD B ANK ORDERABLES [facility] CLIA# [id number] [place] [address] * EKG 12-LEAD (12/25/2021 10:21 AM CDT) 12/25/2021 10:2 1 AM CDT Narrative INTERFACE SYSTEM - 12/25/2021 6:39 PM CDT ? Stationary ECG Study ? [facility] ? Test Date: ?12/25/2021 10:21 AM Pat Name: ? KRISSY WHITE ? Department: ?? 60 ?Room: ? Gender: ? F ?Marketing Intelligence Analyst: ?? PK : ?1955 ? Requested By: THELMA PRASAD JASMINA Order Number: [id number] ?Reading MD: ?? Tyler Martir ? Measurements Intervals ?[place] ? Rate: ? 79 ? P: ?45 SD: ? 144 ?QRS: ?14 QRSD: ? 76 ? T: ?17 QT: ? 378 ? QTc: ?433 ? Interpretive Statements ? Normal sinus rhythm Normal ECG NO PREVIOUS ECG AVAILABLE FOR COMPARISON Electronically Signed On 12-25-2021 18:39:04 CDT by Tyler Mcmahan Procedure Note Tyler Mcmahan MD - 12/25/2021 Stationary ECG Study [facility] Test Date: 12/25/2021 10:21 AM Pat Name: KRISSY ONEAL Department: 60 Room: Gender: F Marketing Intelligence Analyst: NAVYA : 1955 Requested By: THELMA FREEDMAN Order Number: [id number] Reading MD: Tyler Mcmahan Measurements Intervals [place] Rate: 79 P: 45 SD: 144 QRS: 14 QRSD: 76 T: 17 QT: 378 QTc: 433 Interpretive Statements Normal sinus rhythm Normal ECG NO PREVIOUS ECG AVAILABLE FOR COMPARISON Electronically Signed On 12-25-2021 18:39:04 CDT by Tyler Mcmahan Thelma Prasad MD ECG ORDERABLES Performing Organization Address City/State/[facility] Co de Phone Number INTERFACE SYSTEM Refer to clinic/hospital department documented in this encounter Visit Diagnoses Diagnosis Pancreatic cyst Cyst and pseudocyst of pancreas 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
--- OUTSIDE RECORDS SUMMARY | 2024-08-17 09:04 | XMS_ITS | Encounter Summary ---
Author Organization [facility] [employer] [facility] Address [address] [place] [address] Care Team Providers Care Jig And Fixture Repairer Name Role Phone Rosibel Muse MD Primary Care Provider [phone] Encounter Details Date Type Department Care Team (Late Contact Info) Description 12/04/[address] [facility] [place] [facility] Oncology and Hematology [facility] [address] [place] [address] Beverley Heath Pancreatic cyst; Malignant neoplasm of ampulla of Vater Social [...] (Late Contact Info) Description 08/25/2024 2:00 PM RECORDS TECH Office Visit 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
--- OUTSIDE RECORDS SUMMARY | 2024-08-17 09:04 | XMS_ITS | Encounter Summary ---
Author Organization [facility] [employer] [facility] Address [address] [place] [address] Care Team Providers Care Boss Miner Name Role Phone Rosibel Muse MD Primary Care Provider [phone] Encounter Details Date Type Department Care Team ([facility] Contact Info) Description 12/25/2021 Orders Only [facility] Oncology and Hematology - Erick [address] [place] [address] Royal Newell MD [address] [facility] [address] [place] [address] Ampullary carcinoma Social History Tobacco [...] (Late Contact Info) Description 08/25/2024 2:00 PM AIR POLLUTION COMPLIANCE INSPECTOR Office Visit [facility] Oncology and Hematology - Erick [address] [place] [address] Royal Newell MD [address] [facility] [address] [place] [address] documented as of this encounter Visit Diagnoses Diagnosis 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
--- OUTSIDE RECORDS SUMMARY | 2024-08-17 09:05 | XMS_ITS | Encounter Summary ---
Author Organization [facility] [employer] [facility] Address [address] [place] [address] Care Team Providers Care Sewing Machine Mechanic Name Role Phone Rosibel Muse MD Primary Care Provider [phone] Encounter Details Date Type Department Care Team (Late Contact Info) Description 12/01/2021 Abstract [facility] Oncology and Hematology [facility] [address] [place] [address] Usman Johnson, RN Social History [...] Upcoming Encounters Date Type Department Care Team ([facility] Contact Info) Description 08/25/2024 2:00 PM LIMITED RADIOLOGY TECHNICIAN Office Visit [facility] Oncology and Hematology [facility] [address] [place] [address] Royal Newell MD [address] [facility] [address] [place] [address] documented as of this encounter Visit Diagnoses Not on filedocumented in this encounter Care Teams Sewing Machine Mechanic Relationship Specialty Start Date End Date Rosibel Muse MD PCP - General Family Practice 05/24/21 05/06/24 documented as of this encounter
--- OUTSIDE RECORDS SUMMARY | 2024-08-17 09:06 | XMS_ITS | Encounter Summary ---
Author Organization [facility] [employer] [facility] Address [address] [place] [address] Care Team Providers Care Upper Extremity Surgeon Name Role Phone Rosibel Muse MD Primary Care Provider [phone] Reason for Referral * MRI (Routine) - Closed Specialty Diagnoses / Procedures Referred By Contac t Referred To Contact Diagnoses Pancreatic cyst Procedures MRI MRCP W AND WO CONTRAST Royal Newell MD [address] [place] [address] [place] [address] Referral ID Status Reason Start Date Expiration Date V isits Requested Visits Authorized [id number] Closed [facility] CTS 11/23/2021 01/06/2022 1 1 Reason for Visit * Reason Onset Date Comments ampullary ca 11/23/2021 Encounter Details Date Type Department Care Team (Late st Contact Info) Description 11/23/[address] [facility] Oncology and Hematology [facility] [address] [facility] [address] [place] [address] Royal Newell MD [address] [place] [address] ampullary ca Social History Tobacco Use Types Packs/Day Years [...] st Contact Info) Description 08/25/2024 2:00 PM EGG PROCESSING SUPERVISOR Office Visit [facility] Oncology and Hematology - [place] [address] [facility] [address] [place] [address] Royal Newell MD [address] [facility] [address] [place] [address] Scheduled Orders Name Type Priority Associated Diagnoses Orde r Schedule MRI MRCP W AND WO CONTRAST Imaging Routine Pancreatic cyst 1 Occurrences starting 11/23/2021 until 11/23/2022 documented as of this encounter Visit Diagnoses Diagnosis Pancreatic cyst Cyst and pseudocyst of pancreas documented in this encounter Care Teams Upper Extremity Surgeon Relationship Specialty Start Date End Date Rosibel Muse MD PCP - General Family Practice 05/24/21 05/06/24 documented as of this encounter
--- OUTSIDE RECORDS SUMMARY | 2024-08-17 09:06 | XMS_ITS | Encounter Summary ---
Author Organization [facility] [employer] [facility] Address [address] [place] [address] Care Team Providers Care Nuclear Engineering Technician Name Role Phone Rosibel Muse MD Primary Care Provider [phone] Encounter Details Date Type Department Care Team (Late Contact Info) Description 11/06/[address] [facility] Oncology and Hematology [facility] [address] [place] [address] Beverley Heath Social History Tobacco Use Types Packs/Day Years [...] have Coronavirus / COVID-19? No / Unsure 10/31/2021 8:32 AM CDT documented as of this encounter Plan of Treatment Upcoming Encounters Date Type Department Care Team ([facility] Contact Info) Description 08/25/2024 2:00 PM BARGE MASTER Office Visit [facility] Oncology and Hematology [facility] [address] [place] [address] Royal Newell MD [address] [facility] [address] [place] [address] documented as of this encounter Visit Diagnoses Not on filedocumented in this encounter Care Teams Nuclear Engineering Technician Relationship Specialty Start Date End Date Rosibel Muse MD PCP - General Family Practice 05/24/21 05/06/24 documented as of this encounter
--- OUTSIDE RECORDS SUMMARY | 2024-08-17 09:06 | XMS_ITS | Encounter Summary ---
Author Organization [facility] [employer] [facility] Address [address] [place] [address] Care Team Providers Care Buyer Tobacco Head Name Role Phone Rosibel Muse MD Primary Care Provider [phone] Encounter Details Date Type Department Care Team (Late Contact Info) Description 11/06/2021 Orders Only [facility] Oncology and Hematology - [place] [address] [address] Royal Newell MD [address] [facility] [place] [facility] [address] [place] [address] Iron deficiency anemia, unspecified iron [...] (Late Contact Info) Description 08/25/2024 2:00 PM PLANT TECHNICIAN Office Visit [facility] Oncology and Hematology - [place] [address] [place] [address] Royal Newell MD [address] [facility] [place] [facility] [address] [place] [address] documented as of this encounter Visit Diagnoses Diagnosis Iron deficiency anemia, unspecified iron deficiency anemia type 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
--- OUTSIDE RECORDS SUMMARY | 2024-08-17 09:06 | XMS_ITS | Encounter Summary ---
Author Organization [facility] [employer] [facility] Address [address] [place] [address] Care Team Providers Care Drill Hand Name Role Phone Rosibel Muse MD Primary Care Provider [phone] Encounter Details Date Type Department Care Team ([facility] Contact Info) Description 11/27/[address] [facility] Oncology and Hematology - [place] [address] [place] [address] Royal Newell MD [address] [facility] [employer] [address] [place] [address] Ampullary carcinoma Social History Tobacco [...] Contact Info) Description 08/25/2024 2:00 PM RESTAURANT LINE COOK Office Visit 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
--- OUTSIDE RECORDS SUMMARY | 2024-08-17 09:06 | XMS_ITS | Encounter Summary ---
Author Organization [facility] [employer] [facility] Address [address] [place] [address] Care Team Providers Care Fisher Spear Name Role Phone Rosibel Muse MD Primary Care Provider [phone] Reason for Visit * Reason Onset Date Comments Auth cert for MRI and 3D rendering 11/29/2021 Encounter Details Date Type Department Care Team (Late st Contact Info) Description 11/29/2021 Telephone [facility] Oncology and Hematology - [place] [address] [facility] [address] [place] [address] Royal Newell MD [address] [facility] [address] [place] [address] Auth cert for MRI and 3D rendering Social History Tobacco Use Types Packs/Day Years [...] encounter Miscellaneous Notes * Telephone Encounter - Usman Johnson RN - 11/29/2021 3:21 PM CDT In regards to previous scan labeled [facility] Denial for Echo Dr. Mejia... Yohana calling from Dr. Mejia's office stating she is not sure what to do with this denial letterany more than this RN does. This RN Called number listed in denial letter and spoke with a nurse specialist, Ms. Gamboa, who reviewed letter sent and reasoning for denial. Alina Cooper explains to this RN that the surgeon office should be talking to them about this proceduresince he is the one needing the MRI. Dr. Newell did not order the 3 D rendering. This RN then called Yohana back to let her know she needs to contact [facility] per Ms. Gamboa instruction to discuss redetermination for MRI and 3D rendering. Yohana verbalizes understanding and states she will contact [facility]. documented in this encounter Plan of Treatment Upcoming Encounters Date Type Department Care Team (Late st Contact Info) Description 08/25/2024 2:00 PM VICE PRESIDENT DIGITAL STRATEGIST Office Visit [facility] Oncology and Hematology - [place] [address] [place] [address] [facility] [address] [place] [id number] Royal Newell MD [address] [facility] [address] [place] [address] documented as of this encounter Visit Diagnoses Not on filedocumented in this encounter Care Teams Fisher Spear Relationship Specialty Start Date End Date Rosibel Muse MD PCP - General Family Practice 05/24/21 05/06/24 documented as of this encounter
--- OUTSIDE RECORDS SUMMARY | 2024-08-17 09:06 | XMS_ITS | Encounter Summary ---
Author Organization [facility] [employer] [facility] Address [address] [place] [address] Care Team Providers Care Cable Supervisor Name Role Phone Rosibel Muse MD Primary Care Provider [phone] Encounter Details Date Type Department Care Team (Late Contact Info) Description 12/01/2021 Orders Only [facility] Oncology and Hematology [facility] [address] [place] [address] Beverley Heath Pancreatic cyst; Ampullary carcinoma Social History Tobacco Use Types [...] Upcoming Encounters Date Type Department Care Team ([facility] Contact Info) Description 08/25/2024 2:00 PM REFRACTORY REPAIRER Office Visit [facility] Oncology and Hematology [facility] [address] [place] [address] Royal Newell MD [address] [facility] [address] [place] [address] documented as of this encounter Visit Diagnoses Diagnosis Pancreatic cyst Cyst and pseudocyst of pancreas 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
--- OUTSIDE RECORDS SUMMARY | 2024-08-17 09:06 | XMS_ITS | Encounter Summary ---
Author Organization [facility] Address [address] [place] [address] Care Team Providers Care Restaurant Assistant Name Role Phone Rosibel Muse MD Primary Care Provider [phone] Encounter Details Date Type Department Care Team (Latest Contact Info) Description 11/30/2021 12:45 PM CDT - 11/30/2021 11:59 PM CDT Hospital Encounter [facility] [place] [address] [place] [address] [facility], External Provider [address] [place] [address] Discharge Disposition: Home or Self Care Social [...] AM CDT documented as of this encounter Medications at Time of Discharge Medication Sig Dispensed Refills Start Date End Date amLODIPine (NORVASC) 5 mg tablet Take 10 mg by mouth daily. 11/02/2021 ALPRAZolam (XANAX) 1 mg tablet Take 1 mg by mouth nightly as needed for Anxiety. fluticasone propionate (FLONASE) 50 mcg/spray Equality, Suspension nasal inhaler Administer 2 Sprays in [...] st Contact Info) Description 08/25/2024 2:00 PM POLICY DIRECTOR Office Visit [facility] Oncology and Hematology - [place] [address] [facility] [address] [place] [address] Royal Newell MD [address] [facility] [address] [place] [address] documented as of this encounter Procedures Procedure Name Priority Date/Time Associated Diagnosis Comments MRI PRIOR STUDY Routine 11/30/2021 12:45 PM CDT Equivocal imaging test findings documented in this encounter Results * MRI PRIOR STUDY (11/30/2021 12:45 PM CDT) Narrative 12/05/2021 12:42 PM CDT This exam was auto finalized to allow images to be scanned to PACS. External Provider [facility] MR ORDERABLES documented in this encounter Visit Diagnoses Diagnosis Equivocal imaging test findings Other nonspecific (abnormal) findings on radiological and other examinations of body structure documented in this encounter Care Teams Restaurant Assistant Relationship Specialty Start Date End Date Rosibel Muse MD PCP - General Family Practice 05/24/21 05/06/24 documented as of this encounter
--- OUTSIDE RECORDS SUMMARY | 2024-08-17 09:06 | XMS_ITS | Encounter Summary ---
Author Organization [facility] [employer] [facility] Address [address] [place] [address] Care Team Providers Care Power Press Supervisor Name Role Phone Rosibel Muse MD Primary Care Provider [phone] Reason for Visit * Reason Onset Date Comments radiology called 11/09/2021 Radiology starr d regarding Iodinated Contrast allergy Encounter Details Date Type Department Care Team (Late st Contact Info) Description 11/09/2021 Telephone [facility] Oncology and Hematology - [place] [address] [facility] [address] [place] [address] Royal Newell MD [address] [facility] [address] [place] [address] radiology called (Radiology called regarding Iodinated Contrast allergy) Social History Tobacco Use Types Packs/Day Years [...] encounter Miscellaneous Notes * Telephone Encounter - Janeth Dubon - 11/09/2021 11:18 AM CDT Mikayla in Radiology called to remind Devante RN to have meds called out for Krissy's allergy to contrast.... she is having CT done in November and needs these meds. I gave Devante RN a message regarding this also. documented in this encounter Plan of Treatment Upcoming Encounters Date Type Department Care Team (Late st Contact Info) Description 08/25/2024 2:00 PM CARAMEL COLORING OPERATOR Office Visit [facility] Oncology and Hematology - [place] [address] [facility] [address] [place] [address] Royal Newell MD [address] [facility] [address] [place] [address] documented as of this encounter Visit Diagnoses Not on filedocumented in this encounter Care Teams Power Press Supervisor Relationship Specialty Start Date End Date Rosibel Muse MD PCP - General Family Practice 05/24/21 05/06/24 documented as of this encounter
--- OUTSIDE RECORDS SUMMARY | 2024-08-17 09:06 | XMS_ITS | Encounter Summary ---
Author Organization [facility] [employer] [facility] Address [address] [place] [address] Care Team Providers Care Vice President Of Sales Name Role Phone Rosibel Muse MD Primary Care Provider Reason for Visit * Reason Onset Date Comments Medication Refill 11/09/2021 Encounter Details Date Type Department Care Team (Late Contact Info) Description 11/09/2021 Refill [facility] Oncology and Hematology - [place] [address] [place] [address] Prince Martin MD [address] [place] [address] Social History Tobacco Use Types Packs/Day Years [...] (Late Contact Info) Description 08/25/2024 2:00 PM SHIPPING HELPER Office Visit [facility] Oncology and Hematology - [place] [address] [place] [address] Royal Newell MD [address] [facility] [address] [place] [address] documented as of this encounter Visit Diagnoses Not on filedocumented in this encounter Care Teams Vice President Of Sales Relationship Specialty Start Date End Date Rosibel Muse MD PCP - General Family Practice 05/24/21 05/06/24 documented as of this encounter
--- OUTSIDE RECORDS SUMMARY | 2024-08-17 09:06 | XMS_ITS | Encounter Summary ---
Author Organization [facility] [place] [employer] [facility] Address [address] [place] [address] Care Team Providers Care Car Audio Installer Name Role Phone Rosibel Muse MD Primary Care Provider [phone] Encounter Details Date Type Department Care Team (Late Contact Info) Description 11/29/2021 Abstract [facility] Oncology and Hematology [facility] [address] [place] [address] Usman Johnson, RN Social History [...] Upcoming Encounters Date Type Department Care Team ([facility] Contact Info) Description 08/25/2024 2:00 PM CONCRETE BOOM OPERATOR Office Visit [facility] Oncology and Hematology [facility] [address] [place] [address] Royal Newell MD [address] [facility] [address] [place] [address] documented as of this encounter Visit Diagnoses Not on filedocumented in this encounter Care Teams Car Audio Installer Relationship Specialty Start Date End Date Rosibel Muse MD PCP - General Family Practice 05/24/21 05/06/24 documented as of this encounter
--- OUTSIDE RECORDS SUMMARY | 2024-08-17 09:06 | XMS_ITS | Encounter Summary ---
Author Organization [facility] Address [address] [place] [address] Care Team Providers Care Service Mechanic Name Role Phone Rosibel Muse MD Primary Care Provider [phone] Encounter Details Date Type Department Care Team ([facility] Contact Info) Description 11/13/2021 Orders Only [facility] Oncology and Hematology - E[place] [address] [place] [address] Royal Newell MD [address] [facility] [address] [place] [address] Ampullary carcinoma Social History Tobacco [...] Contact Info) Description 08/25/2024 2:00 PM MANAGER OF NETWORK Office Visit [facility] Oncology and Hematology - [place] [address] [place] [address] Royal Newell MD [address] [facility] [address] [place] [address] documented as of this encounter Visit Diagnoses Diagnosis 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
--- OUTSIDE RECORDS SUMMARY | 2024-08-17 09:06 | XMS_ITS | Encounter Summary ---
Author Organization [facility] [employer] [facility] Address [address] [place] [address] Care Team Providers Care Warp Preparer Name Role Phone Rosibel Muse MD Primary Care Provider [phone] Encounter Details Date Type Department Care Team (Late Contact Info) Description 11/23/2021 Abstract [facility] Oncology and Hematology [facility] [address] [place] [address] Usman Johnson, RN Social History [...] Upcoming Encounters Date Type Department Care Team ([facility] Contact Info) Description 08/25/2024 2:00 PM GASOLINE TESTER Office Visit [facility] Oncology and Hematology [facility] [address] [place] [address] Royal Newell MD [address] [facility] [address] [place] [address] documented as of this encounter Visit Diagnoses Not on filedocumented in this encounter Care Teams Warp Preparer Relationship Specialty Start Date End Date Rosibel Muse MD PCP - General Family Practice 05/24/21 05/06/24 documented as of this encounter
--- OUTSIDE RECORDS SUMMARY | 2024-08-17 09:06 | XMS_ITS | Encounter Summary ---
Author Organization [facility] [email or web address] [facility] Address [address] [place] [address] Care Team Providers Care Morgue Librarian Name Role Phone Rosibel Muse MD Primary Care Provider [phone] Reason for Visit * Reason Comments Follow Up 3 WEEK F/U WITH LABS AND ct * Eval and Treat (Routine) - Closed Specialty Diagnoses / Procedures Referred By Contac t Referred To Contact Oncology Diagnoses Malignant neoplasm of ampulla of Vater (CMS/HCC) Procedures Office Visit 3-5 Nancy Ashford MD [address] [place] [address] [facility] Oncology And Hematology [place] [address] [place] [address] Referral ID Status Reason Start Date Expiration Date Visits Re quested Visits Authorized [id number] Closed 08/24/2021 02/20/2022 12 12 Encounter Details Date Type Department Care Team (Late st Contact Info) Description 11/20/2021 10:00 AM CDT Office Visit [facility] Oncology and Hematology [facility] [address] [place] [address] Royal Newell MD [address] [place] [address] [address] [place] [address] Iron deficiency anemia, unspecified iron [...] Sign Reading Time Taken Comments Blood Pressure 126/82 11/20/2021 10:03 AM CDT Pulse 83 11/20/2021 10:03 AM CDT Temperature 36.6 ??C (97.8 ??F) 11/20/2021 10:03 AM C DT Respiratory Rate - - Oxygen Saturation 98% 11/20/2021 10:03 AM CDT Inhaled Oxygen Concentration - - Weight 63.8 kg (140 lb 9.6 oz) 11/20/2021 10:03 AM CDT Height 157.5 cm (5' 2 ) 11/20/2021 10:03 AM CDT Body Mass Index 25.72 11/20/2021 10:03 AM CDT documented in this encounter Progress Notes * Royal Newell MD - 11/20/2021 11:02 AM CDT HEMATOLOGY / ONCOLOGY PROGRESS NOTE [...] taken. Pathology came back positive for gastritis. [facility] where she had EUS and ERCP done with Dr. Medeiros. 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 Neoadjuvant chemotherapy with modified FOLFIRINOX regimen started 07/11/2021. Received cycle 03/19 onOctober 31, 2021 with 20% dose reduction due to toxicity. SUBJECTIVE Patient came into the office for follow-up visit after the CT scan was performed. She is feeling much better and more energy Jeric. She denies any diarrhea. Denies any abdominal pain. Neuropathy is improving. No other new complaint. Review of system Constitutional: denies fevers, sweats, improvement in tiredness and fatigue with 2 pound weight gain HEENT: denies sinus congestion, hearing or vision problems Respiratory: denies cough, dyspnea, wheeze Cardiovascular: denies chest pain, exertional chest pressure/discomfort, nausea, syncope, shortnessof breath GI: Patient complain of constipation. Denies any nausea vomiting. : denies dysuria, frequency, incontinence, urgency Integumentary system: no lymphadenopathy, sweats, flushing Musculoskeletal: denies: myalgia, arthralgia Neurological: denies blurry or disturbed vision, stable neuropathy Skin: No lumps, bumps or rashes. [...] 17.3 hemoglobin 11.1 platelet 133,000 ANC 11,024. Assessment: Plan: Patient Active Problem List Diagnosis [...] 20% dose reduction on October 31, 2021. CT scan from November 13 showed couple of subcentimeter left liver lesion which likely cyst but metastatic disease cannot be excluded. Other liver cyst remains unchanged. Patient known ampullary cancer is not identified. Patient is going to see Dr. Ken in 2 weeks. I have recommended her to make earlier appointment for surgical consideration. I will see her back after surgical input. Anemia. Continue iron and B12. History of elevated liver enzymes status post pancreatic stent placement. Stable. TOBACCO COUNSELING She is not a tobacco user. 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
--- OUTSIDE RECORDS SUMMARY | 2024-08-17 09:06 | XMS_ITS | Encounter Summary ---
Author Organization [facility] Address [address] [place] [address] Care Team Providers Care Bookbinder Chief Name Role Phone Rosibel Muse MD Primary Care Provider [phone] Encounter Details Date Type Department Care Team (Late Contact Info) Description 11/23/2021 Orders Only [facility] [address] [facility] [address] [place] [address] [place] [address] [facility] [address] [place] [address] Pancreatic cyst; Malignant neoplasm of ampulla of [...] (Late Contact Info) Description 08/25/2024 2:00 PM CARBON FURNACE OPERATOR Office Visit [facility] Oncology and Hematology - [place] [address] [place] [address] Royal Newell MD [address] [facility] [address] [place] [address] Scheduled Orders Name Type Priority Associated Diagnoses Orde r Schedule CANCER ANTIGEN 19-9 Lab Routine Pancreatic cyst Malignant neoplasm of ampulla of Vater Expected: 11/23/2021, Expires: 11/23/2022 COMPREHENSIVE METABOLIC PANEL Lab Routine Pancreatic cyst Expected: 11/23/2021 (Approximate), Expires: 01/22/2022 documented as of this encounter Visit Diagnoses Diagnosis Pancreatic cyst Cyst and pseudocyst of pancreas 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
--- OUTSIDE RECORDS SUMMARY | 2024-08-17 09:06 | XMS_ITS | Encounter Summary ---
Author Organization [facility] Address [address] [place] [address] Care Team Providers Care Leather Splitter Name Role Phone Rosibel Muse MD Primary Care Provider [phone] Encounter Details Date Type Department Care Team (Latest Contact Info) Description 11/13/2021 12:05 PM CDT - 11/13/2021 11:59 PM CDT Hospital Encounter Formerly [facility], [facility] [place] [address] [place] [id number] [facility], External Provider [address] [place] [address] Discharge Disposition: Home or Self Care Social [...] for Anxiety. fluticasone propionate (FLONASE) 50 mcg/spray [place], Suspension nasal inhaler Administer 2 Sprays in [...] st Contact Info) Description 08/25/2024 2:00 PM CABLE SPLICER ASSISTANT Office Visit [facility] Oncology and Hematology - [place] [address] [facility] [address] [place] [address] Royal Newell MD [address] [facility] [address] [place] [address] documented as of this encounter Procedures Procedure Name Priority Date/Time Associated Diagnosis Comments CT PRIOR STUDY Routine 11/13/2021 12:05 PM CDT Equivocal imaging test findings documented in this encounter Results * CT PRIOR STUDY (11/13/2021 12:05 PM CDT) Narrative 11/27/2021 12:05 PM CDT This exam was auto finalized to allow images to be scanned to PACS. External Provider [facility] CT ORDERABLES documented in this encounter Visit Diagnoses Diagnosis Equivocal imaging test findings Other nonspecific (abnormal) findings on radiological and other examinations of body structure documented in this encounter Care Teams Leather Splitter Relationship Specialty Start Date End Date Rosibel Muse MD PCP - General Family Practice 05/24/21 05/06/24 documented as of this encounter
--- OUTSIDE RECORDS SUMMARY | 2024-08-17 09:06 | XMS_ITS | Encounter Summary ---
Author Organization [facility] Address [address] [facility] Attn: Epic Prelude ADT [place] [address] Care Team Providers Care Monologist Name Role Phone Rosibel Muse MD Primary Care Provider [phone] Encounter Details Date Type Department Care Team (Latest Contact Info) Description 11/20/2021 Travel Social History Tobacco Use Types Packs/Day [...] st Contact Info) Description 08/25/2024 2:00 PM ATTENDING AMBULATORY CARE Office Visit [facility] Oncology and Hematology - [place] [address] [facility] [address] [place] [address] Royal Newell MD [address] [facility] [address] [place] [address] documented as of this encounter Visit Diagnoses Not on filedocumented in this encounter Care Teams Monologist Relationship Specialty Start Date End Date Rosibel Muse MD PCP - General Family Practice 05/24/21 05/06/24 documented as of this encounter
--- OUTSIDE RECORDS SUMMARY | 2024-08-17 09:07 | XMS_ITS | Encounter Summary ---
Author Organization [facility] Address [address] [place] [address] Care Team Providers Care Public Records Officer Name Role Phone Rosibel Muse MD Primary Care Provider [phone] Reason for Referral * CT Scan (Routine) - Closed Specialty Diagnoses / Procedures Referred By Divina berman Referred To Contact Diagnoses Ampullary carcinoma Procedures CT [place] [address] [place] [address] [place] [address] Referral ID Status Reason Start Date Expiration Date V isits Requested Visits Authorized [id number] Closed [facility] CTS 10/30/2021 11/30/2021 1 1 GING TECHNOLOGIES DIRECTOR Reason for Visit * Reason Comments Follow Up Chemotherapy 2 week f/u with labs and Tx * Eval and Treat (Routine) - Closed Specialty Diagnoses / Procedures Referred By Contgabriella t Referred To Contact Oncology Diagnoses Malignant neoplasm of ampulla of Vater (CMS/HCC) Procedures Office Visit 3-5 Nancy Ashford MD [address] [place] [address] [place] [address] [facility] Oncology And Hematology [place] [address] [place] [address] [address] Referral ID Status Reason Start Date Expiration Date Visits Re quested Visits Authorized [id number] Closed 08/24/2021 02/20/2022 12 12 Encounter Details Date Type Department Care Team (Late st Contact Info) Description 10/17/2021 8:30 AM EMERGING TECHNOLOGIES DIRECTOR Office Visit [facility] Oncology and Hematology - [place] [address] [facility] [address] [place] [address] Royal Newell MD [address] [facility] [address] [place] [address] Ampullary carcinoma (Primary Dx) Social [...] have Coronavirus / COVID-19? No / Unsure 10/17/2021 8:40 AM EMERGING TECHNOLOGIES DIRECTOR documented as of this encounter Last Filed Vital Signs Vital Sign Reading Time Taken Comments Blood Pressure 146/87 10/17/2021 8:46 AM EMERGING TECHNOLOGIES DIRECTOR Pulse 72 10/17/2021 8:46 AM EMERGING TECHNOLOGIES DIRECTOR Temperature 36.5 ??C (97.7 ??F) 10/17/2021 8:46 AM CS T Respiratory Rate - - Oxygen Saturation 98% 10/17/2021 8:46 AM EMERGING TECHNOLOGIES DIRECTOR Inhaled Oxygen Concentration - - Weight 64.3 kg (141 lb 11.2 oz) 10/17/2021 8:46 AM EMERGING TECHNOLOGIES DIRECTOR Height 157.5 cm (5' 2 ) 10/17/2021 8:46 AM EMERGING TECHNOLOGIES DIRECTOR Body Mass Index 25.92 10/17/2021 8:46 AM EMERGING TECHNOLOGIES DIRECTOR documented in this encounter Progress Notes * Royal Newell MD - 10/17/2021 5:40 PM CST HEMATOLOGY / ONCOLOGY PROGRESS NOTE Patient Identification: Name: Krissy Jaquez White Age: 66 y.o. 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 EGD done on May 22 showed malignant appearing duodenal mass and biopsies were taken. Pathology came back positive for gastritis. [facility] where she had EUS and ERCP done with Dr. Medeiros. 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 SUBJECTIVE Patient came into the office for follow-up visit and continuation of chemotherapy. So far she is tolerating treatment well other than occasional nausea vomiting. Denies any diarrhea. Denies any melena hematochezia. To occasional right-sided abdominal pain. No other new complaint. Review of system Constitutional: denies fevers, sweats, mild tiredness and fatigue HEENT: denies sinus congestion, hearing or vision problems Respiratory: denies cough, dyspnea, wheeze Cardiovascular: denies chest pain, exertional chest pressure/discomfort, nausea, syncope, shortnessof breath GI: denies constipation, diarrhea, dsyphagia, reflux symptoms, melena, occasional nausea and abdominal pain : denies dysuria, frequency, incontinence, urgency Integumentary system: no lymphadenopathy, sweats, flushing Musculoskeletal: denies: myalgia, arthralgia Neurological: denies blurry or disturbed vision, numbness/weakness, dizziness Skin: No lumps, bumps or rashes. 12 [...] 4.4 hemoglobin 10.1 platelet 168,000 creatinine 0.8 Assessment: Plan: Patient Active Problem List Diagnosis [...] distant metastasis. Patient was evaluated by Dr. Mejia and surgery. Recommendation was made for neoadjuvant chemotherapy. Patient started neoadjuvant chemotherapy with modified FOLFIRINOX regimen on July 11. Labs noted. Hemoglobin 10.1. We will proceed with chemotherapy cycle #7 with 20% dose reduction today. I will plan to see her back in 2 weeks for cycle [address] scan will be ordered for 4 weeks. She will follow-up with Dr. Mejia after the CT scan. Anemia. Hemoglobin stable. Continue iron twice a day with vitamin B12 daily. History of elevated liver enzyme status post pancreatic stent placement. Stable. Chemotherapy-induced neutropenia prophylaxis. She will continue with [employer] similar. TOBACCO COUNSELING She is not a tobacco user. 10/17/2021 Royal Newell MD GING TECHNOLOGIES DIRECTOR documented in this encounter Plan of Treatment Upcoming Encounters Date Type Department Care Team (Late st Contact Info) Description 08/25/2024 2:00 PM EMERGING TECHNOLOGIES DIRECTOR Office Visit [facility] Oncology and Hematology - [place] [address] [facility] [address] [place] [address] Royal Newell MD [address] [facility] [address] [place] [address] Scheduled Orders Name Type Priority Associated Diagnoses Orde r Schedule COMPREHENSIVE METABOLIC PANEL Lab Stat Ampullary carcinoma Expected: 10/31/2021, Expires: 10/17/2022 CBC WITH DIFFERENTIAL Lab Stat Ampullary carcinoma Expected: 10/31/2021, Expires: 10/17/2022 CT CHEST ABDOMEN PELVIS W CONT Imaging Routine Ampullary carcinoma Expected: 11/17/2021, Expires: 10/17/2022 documented as of this encounter Visit Diagnoses Diagnosis Ampullary carcinoma- Primary Malignant neoplasm of ampulla of Vater documented in this encounter Care Teams Public Records Officer Relationship Specialty Start Date End Date Rosibel Muse MD PCP - General Family Practice 05/24/21 05/06/24 documented as of this encounter
--- OUTSIDE RECORDS SUMMARY | 2024-08-17 09:07 | XMS_ITS | Encounter Summary ---
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) Procedures Office Visit 3-5 Nancy Ashford MD [address] [place] [address] [facility] Oncology And Hematology [place] [address] [address] [place] [address] Referral ID Status Reason Start Date Expiration Date Visits Re quested Visits Authorized [id number] Closed 08/24/2021 02/20/2022 12 12 Encounter Details Date Type Department Care Team (Late st Contact Info) Description 10/03/2021 9:00 AM HIGH SCHOOL PROFESSIONAL Office Visit [facility] Oncology and Hematology [facility] [address] [place] [address] [place] [address] [place] [address] [address] [place] [address] Primary cancer of ampulla of [...] have Coronavirus / COVID-19? No / Unsure 10/03/2021 8:40 AM HIGH SCHOOL PROFESSIONAL documented as of this encounter Last Filed Vital Signs Vital Sign Reading Time Taken Comments Blood Pressure 135/80 10/03/2021 8:49 AM HIGH SCHOOL PROFESSIONAL Pulse 101 10/03/2021 8:49 AM HIGH SCHOOL PROFESSIONAL Temperature 36.4 ??C (97.6 ??F) 10/03/2021 8:49 AM CS T Respiratory Rate - - Oxygen Saturation 97% 10/03/2021 8:49 AM HIGH SCHOOL PROFESSIONAL Inhaled Oxygen Concentration - - Weight 62.6 kg (137 lb 14.4 oz) 10/03/2021 8:49 AM HIGH SCHOOL PROFESSIONAL Height 157.5 cm (5' 2 ) 10/03/2021 8:49 AM HIGH SCHOOL PROFESSIONAL Body Mass Index 25.22 10/03/2021 8:49 AM HIGH SCHOOL PROFESSIONAL documented in this encounter Progress Notes * Royal Newell MD - 10/03/2021 9:13 AM CST HEMATOLOGY / ONCOLOGY PROGRESS NOTE Patient [...] taken. Pathology came back positive for gastritis. [facility] where she had EUS and ERCP done with Dr. Medeiros. 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 SUBJECTIVE Patient came into the office for follow-up visit and continuation of chemotherapy. So far she is tolerating treatment well other than some occasional nausea and vomiting. Denies any diarrhea. Does have some neuropathy involving fingers and toes. No other new complaint. Review of system Constitutional: denies fevers, sweats, complain of tiredness and fatigue HEENT: denies sinus congestion, hearing or vision problems Respiratory: denies cough, dyspnea, wheeze Cardiovascular: denies chest pain, exertional chest pressure/discomfort, nausea, syncope, shortnessof breath GI: denies constipation, diarrhea, dsyphagia, reflux symptoms, melena, improvement in abdominal discomfort, complain of nausea and vomiting. : denies dysuria, frequency, incontinence, urgency [...] 22.5 hemoglobin 11.3 platelet 129,000 creatinine 0.9 Assessment: Plan: Patient Active Problem List Diagnosis [...] FOLFIRINOX regimen on July 11. Labs noted. We will proceed with chemotherapy cycle #6 today with 20% dose reduction due to nausea vomiting and anemia. I will see her back in 2 weeks. Plan to perform imaging studies after cycle 8 and follow-up with Dr. Ken for surgical consideration. Anemia. Hemoglobin stable. Continue iron twice a day with vitamin B12 daily. History of elevated liver enzymes status post pancreatic stent placement. We will continue to monitor. Chemotherapy-induced neutropenia prophylaxis. Continue Neulasta bio similar. TOBACCO COUNSELING She is not a tobacco user. 10/03/2021 Royal Newell MD SCHOOL PROFESSIONAL documented in this encounter Plan of Treatment Upcoming Encounters Date Type Department Care Team (Late st Contact Info) Description 08/25/2024 2:00 PM HIGH SCHOOL PROFESSIONAL Office Visit [facility] Oncology and Hematology - [place] [address] [facility] [address] [place] [address] Royal Newell MD [address] [facility] [address] [place] [address] Scheduled Orders Name Type Priority Associated Diagnoses Orde r Schedule COMPREHENSIVE METABOLIC PANEL Lab Stat Primary cancer of ampulla of Vater Expected: 10/17/2021, Expires: 10/03/2022 CBC WITH DIFFERENTIAL Lab Stat Primary cancer of ampulla of Vater Expected: 10/17/2021, Expires: 10/03/2022 documented as of this encounter Visit Diagnoses Diagnosis Primary cancer of ampulla of Vater- Primary documented in this encounter Care Teams Choker Setter Relationship Specialty Start Date End Date Rosibel Muse MD PCP - General Family Practice 05/24/21 05/06/24 documented as of this encounter
--- OUTSIDE RECORDS SUMMARY | 2024-08-17 09:07 | XMS_ITS | Encounter Summary ---
Author Organization [facility] [id number] [facility] Address [address] [place] [address] Care Team Providers Care Legal Intern Name Role Phone Rosibel Muse MD Primary Care Provider [phone] Encounter Details Date Type Department Care Team ([facility] Contact Info) Description 08/01/2021 Orders Only [facility] Oncology and Hematology [facility] [address] [place] [address] [facility] Ampullary carcinoma Social History Tobacco Use Types [...] have Coronavirus / COVID-19? No / Unsure 07/25/2021 8:28 AM DONOR PROCESSOR documented as of this encounter Plan of Treatment Upcoming Encounters Date Type Department Care Team ([facility] Contact Info) Description 08/25/2024 2:00 PM DONOR PROCESSOR Office Visit [facility] Oncology and Hematology - [place] [address] [place] [address] Royal Newell MD [address] [facility] [address] [place] [address] documented as of this encounter Procedures Procedure Name Priority Date/Time Associated Diagnosis Comments BASIC METABOLIC PANEL Routine 08/01/2021 documented in this encounter Results * BASIC METABOLIC PANEL (08/01/2021) Blood Abstract Provider CHEMISTRY ORDERABLES documented in this encounter Visit Diagnoses Diagnosis 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
--- OUTSIDE RECORDS SUMMARY | 2024-08-17 09:07 | XMS_ITS | Encounter Summary ---
Author Organization [facility] [employer] [facility] Address [address] [place] [address] Care Team Providers Care Adjunct Instructor Name Role Phone Rosibel Muse MD Primary Care Provider [phone] Encounter Details Date Type Department Care Team (Late Contact Info) Description 09/20/2021 Orders Only [facility] Oncology and Hematology - [place] [address] [place] [address] Heath, Beverley Ampullary carcinoma Social History Tobacco Use Types [...] Upcoming Encounters Date Type Department Care Team ([facility] Contact Info) Description 08/25/2024 2:00 PM HOME PERFORMANCE LABORER Office Visit [facility] Oncology and Hematology - [place]rick [address] [place] [address] Royal Newell MD [address] [facility] [address] [place] [address] documented as of this encounter Procedures Procedure Name Priority Date/Time Associated Diagnosis Comments BASIC METABOLIC PANEL Routine 09/19/2021 documented in this encounter Results * BASIC METABOLIC PANEL (09/19/2021) Blood Abstract Provider CHEMISTRY ORDERABLES documented in this encounter Visit Diagnoses Diagnosis 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
--- OUTSIDE RECORDS SUMMARY | 2024-08-17 09:07 | XMS_ITS | Encounter Summary ---
Author Organization [facility] [facility] Address [address] [place] [address] Care Team Providers Care Distribution Estimator Name Role Phone Rosibel Muse MD Primary Care Provider [phone] Reason for Visit * Reason Onset Date Comments cxl appt 2021 sick pt cxl appt Encounter Details Date Type Department Care Team ([facility] Contact Info) Description 2021 Telephone [facility] Oncology and Hematology - [place] [address] [place] [address] [facility] [address] [place] [address] Royal Newell MD [address] [facility] [address] [place] [address] cxl appt (sick pt cxl appt) Social History Tobacco Use Types Packs/Day Years [...] * Telephone Encounter - Janeth Dubon - 2021 3:09 PM CST Krissy stated that she is sick and cxl appt and Tx NG ASSEMBLER documented in this encounter Plan of Treatment Upcoming Encounters Date Type Department Care Team ([facility] Contact Info) Description 08/25/2024 2:00 PM AWNING ASSEMBLER Office Visit [facility] Oncology and Hematology - [place] [address] [facility] [address] [place] [address] Royal Newell MD [address] [facility] [address] [place] [address] documented as of this encounter Visit Diagnoses Not on filedocumented in this encounter Care Teams Distribution Estimator Relationship Specialty Start Date End Date Rosibel Muse MD PCP - General Family Practice 05/24/21 05/06/24 documented as of this encounter
--- OUTSIDE RECORDS SUMMARY | 2024-08-17 09:07 | XMS_ITS | Encounter Summary ---
Author Organization [facility] [employer] [facility] Address [address] [place] [address] Care Team Providers Care Staff Nurse Anesthetist Name Role Phone Rosibel Muse MD Primary Care Provider [phone] Encounter Details Date Type Department Care Team ([facility] Contact Info) Description 07/24/2021 Orders Only [facility] Oncology and Hematology - [place] [address] [place] [address] Royal Newell MD [address] [facility] [address] [place] [address] Ampullary carcinoma (Primary Dx) Social [...] have Coronavirus / COVID-19? No / Unsure 07/11/2021 8:40 AM BROKER documented as of this encounter Plan of Treatment Upcoming Encounters Date Type Department Care Team (Late Contact Info) Description 08/25/2024 2:00 PM BROKER Office Visit [facility] Oncology and Hematology - [place] [address] [place] [address] Royal Newell MD [address] [facility] [address] [place] [address] documented as of this encounter Visit Diagnoses Diagnosis Ampullary carcinoma- Primary Malignant neoplasm of ampulla of Vater documented in this encounter Care Teams Staff Nurse Anesthetist Relationship Specialty Start Date End Date Rosibel Muse MD PCP - General Family Practice 05/24/21 05/06/24 documented as of this encounter
--- OUTSIDE RECORDS SUMMARY | 2024-08-17 09:07 | XMS_ITS | Encounter Summary ---
Author Organization [facility] [employer] [facility] Address [address] [place] [address] Care Team Providers Care Fruit Or Nut Farm Worker Name Role Phone Rosibel Muse MD Primary Care Provider [phone] Encounter Details Date Type Department Care Team ([facility] Contact Info) Description 09/01/2021 Orders Only [facility] Oncology and Hematology - [place] [address] [place] [address] Janeth Dubon Ampullary carcinoma Social History Tobacco Use Types [...] Upcoming Encounters Date Type Department Care Team ([facility] Contact Info) Description 08/25/2024 2:00 PM EQUIPMENT ASSOCIATE Office Visit [facility] Oncology and Hematology - [place] [address] [place] [address] Royal Newell MD [address] [facility] [address] [place] [address] documented as of this encounter Visit Diagnoses Diagnosis 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
--- OUTSIDE RECORDS SUMMARY | 2024-08-17 09:07 | XMS_ITS | Encounter Summary ---
Author Organization [facility] [employer] [facility] Address [address] [place] [address] Care Team Providers Care Keller Machine Operator Name Role Phone Rosibel Muse MD Primary Care Provider [phone] Reason for Visit * Reason Onset Date Comments Medication Refill 10/20/2021 TC placed to [facility] regarding the prednisone and potassium ordered from last OV on 10/17/21. January verbalized understanding of prescription instructions for prednisone and potassium. This RN clarified with Dr. Newell the instructions for potassium. Dr. Newell clarified that he wanted January to take Potassium 20 meq 1 tablet by mouth daily and then he would reevaluate her labs at next OV scheduled for 10/31/2021. Encounter Details Date Type Department Care Team (Late st Contact Info) Description 10/20/2021 Telephone [facility] Oncology and Hematology - [place] [address] [place] [address] [address] Royal Newell MD [address] [place] [address] [address] [place] [address] Medication Refill (TC placed to Krissy regarding the prednisone and potassium ordered from last OV on 10/17/21. January verbalized understanding of prescription instructions for prednisone and potassium. This RN clarified with Dr. Newell the instructions for potassium. Dr. Newell clarified that he wanted January to take Potassium 20 meq 1 tablet by mouth daily and then he would reevaluate her labs at next OV scheduled for 10/31/2021.) Social History Tobacco Use Types Packs/Day Years [...] COVID-19? No / Unsure 10/17/2021 8:40 AM FURNITURE SANDER documented as of this encounter Miscellaneous Notes * Telephone Encounter - Usman Johnson RN - 10/20/2021 9:22 AM FURNITURE SANDER TC placed to January regarding the prednisone and potassium ordered from last OV on 10/17/21. January verbalized understanding of prescription instructions for prednisone and potassium. This RN clarified with Dr. Newell the instructions for potassium. Dr. Newell clarified that he wanted January to take Potassium 20 meq 1 tablet by mouth daily and then he would reevaluate her labs at next OV scheduled for 10/31/2021. ITURE SANDER documented in this encounter Plan of Treatment Upcoming Encounters Date Type Department Care Team (Late st Contact Info) Description 08/25/2024 2:00 PM FURNITURE SANDER Office Visit [facility] Oncology and Hematology - [place] [address] [place] [address] [facility] [address] [place] [id number] [place] [address] [place] [address] [address] [place] [address] documented as of this encounter Visit Diagnoses Not on filedocumented in this encounter Care Teams Keller Machine Operator Relationship Specialty Start Date End Date Rosibel Muse MD PCP - General Family Practice 05/24/21 05/06/24 documented as of this encounter
--- OUTSIDE RECORDS SUMMARY | 2024-08-17 09:07 | XMS_ITS | Encounter Summary ---
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) Procedures Office Visit 3-5 Nancy Ashford MD [address] [place] [address] [facility] Oncology And Hematology [place] [address] [address] [place] [address] Referral ID Status Reason Start Date Expiration Date Visits Re quested Visits Authorized [id number] Closed 08/24/2021 02/20/2022 12 12 Encounter Details Date Type Department Care Team (Late st Contact Info) Description 10/31/2021 8:30 AM CDT Office Visit [facility] Oncology and Hematology [facility] [address] [place] [address] Royal Newell MD [facility] [address] [place] [address] Primary cancer of ampulla of [...] Sign Reading Time Taken Comments Blood Pressure 154/87 10/31/2021 8:40 AM CDT Pulse 79 10/31/2021 8:40 AM CDT Temperature 36.7 ??C (98 ??F) 10/31/2021 8:40 AM CDT Respiratory Rate - - Oxygen Saturation 98% 10/31/2021 8:40 AM CDT Inhaled Oxygen Concentration - - Weight 62.9 kg (138 lb 9.6 oz) 10/31/2021 8:40 A M CDT Height 157.5 cm (5' 2 ) 10/31/2021 8:40 AM CDT Body Mass Index 25.35 10/31/2021 8:40 AM CDT documented in this encounter Progress Notes * Royal Newell MD - 10/31/2021 9:40 AM CDT HEMATOLOGY / ONCOLOGY PROGRESS NOTE [...] taken. Pathology came back positive for gastritis. [facility] where she had EUS and ERCP done with Dr. Medeiros. 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 SUBJECTIVE Patient came into the office for follow-up visit and continuation of chemotherapy. So far she has been tolerating treatment well. Denies any abdominal pain. She does have some chronic back pain. Shehas some constipation. Neuropathy stable. No other new complaint. Review of system [...] modified FOLFIRINOX regimen on July 11. Labs noted that showed improvement in hemoglobin now up to 11.1. She will proceed with cycle 8 of chemotherapy with FOLFIRINOX with 20% dose reduction which she has been tolerating well. CT scan has been ordered in 2 weeks. I will see her back in 3 weeks. I recommended her to follow-up with Dr. Mejia after the CT scan as well. Anemia. Hemoglobin has improved. Continue iron twice daily with B12 daily. History of elevated liver enzyme status post pancreatic stent placement. Stable. Chemotherapy-induced neutropenia prophylaxis. We will hold Neulasta bio similar today due to elevated ANC. TOBACCO COUNSELING She is not a tobacco user. 10/31/2021 Royal Newell MD documented in this encounter Plan of Treatment Upcoming Encounters Date Type Department Care Team (Late st Contact Info) Description 08/25/2024 2:00 PM FRAMEMAN Office Visit [facility] Oncology and Hematology - [place] [address] [facility] [address] [place] [address] Royal Newell MD [address] [facility] [address] [place] [address] documented as of this encounter Visit Diagnoses Diagnosis Primary cancer of ampulla of Vater- Primary documented in this encounter Care Teams Yield Loss Inspector Relationship Specialty Start Date End Date Rosibel Muse MD PCP - General Family Practice 05/24/21 05/06/24 documented as of this encounter
--- OUTSIDE RECORDS SUMMARY | 2024-08-17 09:07 | XMS_ITS | Encounter Summary ---
Author Organization [facility] [employer] [facility] Address [address] [place] [address] Care Team Providers Care Ammunition Storekeeper Name Role Phone Rosibel Muse MD Primary Care Provider [phone] Encounter Details Date Type Department Care Team ([facility] Contact Info) Description 08/15/2021 Orders Only [facility] Oncology and Hematology [facility] [address] [place] [address] [facility] Ampullary carcinoma Social History Tobacco Use Types [...] COVID-19? 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
--- OUTSIDE RECORDS SUMMARY | 2024-08-17 09:07 | XMS_ITS | Encounter Summary ---
Author Organization [facility] [employer] [facility] Address [address] [place] [address] Care Team Providers Care Portfolio Specialist Name Role Phone Rosibel Muse MD Primary Care Provider [phone] Encounter Details Date Type Department Care Team (Late Contact Info) Description 09/18/2021 Orders Only [facility] Oncology and Hematology - [place] [address] [place] [address] Royal Newell MD [address] [employer] [address] [place] [address] Ampullary carcinoma Social History Tobacco [...] (Late Contact Info) Description 08/25/2024 2:00 PM BATHROOM TILING PROFESSIONAL Office Visit [facility] Oncology and Hematology - [place] [address] [place] [address] Royal Newell MD [address] [employer] [address] [place] [address] documented as of this encounter Visit Diagnoses Diagnosis Ampullary carcinoma Malignant neoplasm of ampulla of Vater documented in this encounter Care Teams Portfolio Specialist Relationship Specialty Start Date End Date Rosibel Muse MD PCP - General Family Practice 05/24/21 05/06/24 documented as of this encounter
--- OUTSIDE RECORDS SUMMARY | 2024-08-17 09:07 | XMS_ITS | Encounter Summary ---
Author Organization [facility] Address [address] [facility] Attn: Epic Prelude ADT [place] [address] Care Team Providers Care Operator Technician Name Role Phone Rosibel Muse MD Primary Care Provider [phone] Encounter Details Date Type Department Care Team (Latest Contact Info) Description 10/17/2021 Travel Social History Tobacco Use Types Packs/Day [...] COVID-19? No / Unsure 10/17/2021 8:40 AM EDGE GLUE MACHINE TENDER documented as of this encounter Plan of Treatment Upcoming Encounters Date Type Department Care Team (Late st Contact Info) Description 08/25/2024 2:00 PM EDGE GLUE MACHINE TENDER Office Visit [facility] Oncology and Hematology - [place] [address] [place] [address] Royal Newell MD [address] [facility] [address] [place] [address] documented as of this encounter Visit Diagnoses Not on filedocumented in this encounter Care Teams Operator Technician Relationship Specialty Start Date End Date Rosibel Muse MD PCP - General Family Practice 05/24/21 05/06/24 documented as of this encounter
--- OUTSIDE RECORDS SUMMARY | 2024-08-17 09:07 | XMS_ITS | Encounter Summary ---
Author Organization [facility] [employer] [facility] Address [address] [place] [address] Care Team Providers Care Small Arms Repairer Name Role Phone Rosibel Muse MD Primary Care Provider [phone] Encounter Details Date Type Department Care Team (Late Contact Info) Description 09/04/2021 Orders Only [facility] Oncology and Hematology - [place] [address] [place] [address] Royal Newell MD [address] [employer] [address] [place] [address] Ampullary carcinoma Social History Tobacco [...] st Contact Info) Description 08/25/2024 2:00 PM GENETIC COUNSELOR Office Visit [facility] Oncology and Hematology - [place] [address] [place] [address] Royal Newell MD [address] [employer] [address] [place] [address] documented as of this encounter Visit Diagnoses Diagnosis Ampullary carcinoma Malignant neoplasm of ampulla of Vater documented in this encounter Care Teams Small Arms Repairer Relationship Specialty Start Date End Date Rosibel Muse MD PCP - General Family Practice 05/24/21 05/06/24 documented as of this encounter
--- OUTSIDE RECORDS SUMMARY | 2024-08-17 09:07 | XMS_ITS | Encounter Summary ---
Author Organization [facility] [employer] [facility] Address [address] [place] [address] Care Team Providers Care Custom Feed Mill Operator Name Role Phone Rosibel Muse MD Primary Care Provider [phone] Encounter Details Date Type Department Care Team ([facility] Contact Info) Description 07/28/2021 Orders Only [facility] Oncology and Hematology [facility] [address] [place] [address] Provider, Abstract NO ADDRESS ON FILE Ampullary carcinoma Social History Tobacco Use Types [...] COVID-19? No / Unsure 07/25/2021 8:28 AM PREPARATORY TECHNICIAN documented as of this encounter Plan of Treatment Upcoming Encounters Date Type Department Care Team ([facility] Contact Info) Description 08/25/2024 2:00 PM PREPARATORY TECHNICIAN Office Visit [facility] Oncology and Hematology - [place] [address] [place] [address] Royal Newell MD [address] [facility] [address] [place] [address] documented as of this encounter Procedures Procedure Name Priority Date/Time Associated Diagnosis Comments BASIC METABOLIC PANEL Routine 07/25/2021 documented in this encounter Results * BASIC METABOLIC PANEL (07/25/2021) Blood Abstract Provider CHEMISTRY ORDERABLES documented in this encounter Visit Diagnoses Diagnosis Ampullary carcinoma Malignant neoplasm of ampulla of Vater documented in this encounter Care Teams Custom Feed Mill Operator Relationship Specialty Start Date End Date Rosibel Muse MD PCP - General Family Practice 05/24/21 05/06/24 documented as of this encounter
--- OUTSIDE RECORDS SUMMARY | 2024-08-17 09:07 | XMS_ITS | Encounter Summary ---
Author Organization [facility] [employer] [facility] Address [address] [place] [address] Care Team Providers Care Community Affairs Director Name Role Phone Rosibel Muse MD Primary Care Provider [phone] Reason for Visit * Reason Onset Date Comments Medication Refill 07/17/2021 Encounter Details Date Type Department Care Team (Late Contact Info) Description 07/17/2021 Refill [facility] Oncology and Hematology - [place] [address] [place] [address] Royal Newell MD [address] [facility] [address] [place] [address] Ampullary carcinoma Social History Tobacco [...] COVID-19? 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
--- OUTSIDE RECORDS SUMMARY | 2024-08-17 09:07 | XMS_ITS | Encounter Summary ---
Author Organization [facility] [employer] [facility] Address [address] [place] [address] Care Team Providers Care Patient Experience Coordinator Name Role Phone Rosibel Muse MD Primary Care Provider [phone] Reason for Visit * Reason Onset Date Comments insurance referral 07/13/2021 Encounter Details Date Type Department Care Team (Late st Contact Info) Description 07/13/2021 Telephone [facility] Oncology and Hematology - [place] [address] [facility] [address] [place] [address] Royal Newell MD [address] [facility] [address] [place] [address] insurance referral Social History Tobacco Use Types Packs/Day Years [...] COVID-19? No / Unsure 07/11/2021 8:40 AM RATTLING MACHINE TENDER documented as of this encounter Miscellaneous Notes * Telephone Encounter - Valentina Jaramillo - 07/13/2021 8:23 AM CST Called PCP asking for a third time an insurance referral. Was told because of their new tax ID insurance is waving it until 07/26/21 LING MACHINE TENDER documented in this encounter Plan of Treatment Upcoming Encounters Date Type Department Care Team (Late st Contact Info) Description 08/25/2024 2:00 PM RATTLING MACHINE TENDER Office Visit [facility] Oncology and Hematology - [place] [address] [facility] [address] [place] [address] Royal Newell MD [address] [facility] [address] [place] [address] documented as of this encounter Visit Diagnoses Not on filedocumented in this encounter Care Teams Patient Experience Coordinator Relationship Specialty Start Date End Date Rosibel Muse MD PCP - General Family Practice 05/24/21 05/06/24 documented as of this encounter
--- OUTSIDE RECORDS SUMMARY | 2024-08-17 09:07 | XMS_ITS | Encounter Summary ---
Author Organization [facility] [employer] [facility] Address [address] [place] [address] Care Team Providers Care Senior Tech Manufacturing Engineering Name Role Phone Rosibel Muse MD Primary Care Provider [phone] Encounter Details Date Type Department Care Team (Late Contact Info) Description 10/09/2021 Orders Only [facility] Oncology and Hematology - [place] [address] [place] [address] Royal Newell MD [address] [facility] [address] [place] [address] Iron deficiency anemia, unspecified iron [...] COVID-19? 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
--- OUTSIDE RECORDS SUMMARY | 2024-08-17 09:07 | XMS_ITS | Encounter Summary ---
Author Organization [facility] [employer] [facility] Address [address] [place] [address] Care Team Providers Care Eight Arm Operator Name Role Phone Rosibel Muse MD Primary Care Provider [phone] Encounter Details Date Type Department Care Team ([facility] Contact Info) Description 10/31/2021 Orders Only [facility] Oncology and Hematology [facility] [address] [place] [address] Provider, Abstract NO ADDRESS ON [...] Encounters Date Type Department Care Team ([facility] Contact Info) Description 08/25/2024 2:00 PM TIRE SORTER Office Visit [facility] Oncology and Hematology [facility] [address] [place] [address] Royal Newell MD [address] [facility] [address] [place] [address] documented as of this encounter Procedures Procedure Name Priority Date/Time Associated Diagnosis Comments BASIC METABOLIC PANEL Routine 10/31/2021 documented in this encounter Results * BASIC METABOLIC PANEL (10/31/2021) Blood Abstract Provider CHEMISTRY ORDERABLES documented in this encounter Visit Diagnoses Not on filedocumented in this encounter Care Teams Eight Arm Operator Relationship Specialty Start Date End Date Rosibel Muse MD PCP - General Family Practice 05/24/21 05/06/24 documented as of this encounter
--- OUTSIDE RECORDS SUMMARY | 2024-08-17 09:07 | XMS_ITS | Encounter Summary ---
Author Organization [facility] [employer] [facility] Address [address] [place] [address] Care Team Providers Care Objects Conservator Name Role Phone Rosibel Muse MD Primary Care Provider [phone] Encounter Details Date Type Department Care Team ([facility] Contact Info) Description 08/01/2021 Orders Only [facility] Oncology and Hematology [facility] [address] [place] [address] Provider, Abstract NO ADDRESS ON [...] COVID-19? No / Unsure 07/25/2021 8:28 AM GAME TESTER documented as of this encounter Plan of Treatment Upcoming Encounters Date Type Department Care Team ([facility] Contact Info) Description 08/25/2024 2:00 PM GAME TESTER Office Visit [facility] Oncology and Hematology [facility] [address] [place] [address] Royal Newell MD [address] [facility] [address] [place] [address] documented as of this encounter Procedures Procedure Name Priority Date/Time Associated Diagnosis Comments TYPE AND SCREEN Routine 07/31/2021 documented in this encounter Results * TYPE AND SCREEN (07/31/2021) Blood Abstract Provider BLOOD BANK ORDERABLE S documented in this encounter Visit Diagnoses Not on filedocumented in this encounter Care Teams Objects Conservator Relationship Specialty Start Date End Date Rosibel Muse MD PCP - General Family Practice 05/24/21 05/06/24 documented as of this encounter
--- OUTSIDE RECORDS SUMMARY | 2024-08-17 09:07 | XMS_ITS | Encounter Summary ---
Author Organization [facility] Address [address] [facility] Attn: Epic Prelude ADT [place] [address] Care Team Providers Care Respiratory Therapy Director Name Role Phone Rosibel Muse MD Primary Care Provider [phone] Encounter Details Date Type Department Care Team (Latest Contact Info) Description 10/31/2021 Travel Social History Tobacco Use Types Packs/Day [...] st Contact Info) Description 08/25/2024 2:00 PM RELIEF OPERATOR Office Visit [facility] Oncology and Hematology - [place] [address] [facility] [address] [place] [address] Royal Newell MD [address] [facility] [address] [place] [address] documented as of this encounter Visit Diagnoses Not on filedocumented in this encounter Care Teams Respiratory Therapy Director Relationship Specialty Start Date End Date Rosibel Muse MD PCP - General Family Practice 05/24/21 05/06/24 documented as of this encounter
--- OUTSIDE RECORDS SUMMARY | 2024-08-17 09:07 | XMS_ITS | Encounter Summary ---
Author Organization [facility] [employer] Address [address] [place] [address] Care Team Providers Care Assistant Boys Track Coach Name Role Phone Rosibel Muse MD Primary Care Provider [phone] Reason for Visit * Reason Onset Date Comments lab orders 09/27/2021 Encounter Details Date Type Department Care Team (Late Contact Info) Description 09/27/2021 Telephone [facility] Oncology and Hematology [facility] [address] [place] [address] Royal Newell MD [address] [place] [address] lab orders Social History Tobacco [...] (Late Contact Info) Description 08/25/2024 2:00 PM GARMENT SEWER HAND Office Visit [facility] Oncology [facility] Hematology [facility] [address] [place] [address] Royal Newell MD [address] [place] [address] Scheduled Orders Name Type Priority Associated Diagnoses Orde r Schedule MAGNESIUM LEVEL Lab Routine Iron deficiency anemia, unspecified iron deficiency anemia type 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
--- OUTSIDE RECORDS SUMMARY | 2024-08-17 09:07 | XMS_ITS | Encounter Summary ---
Author Organization [facility] Address [address] [facility] Attn: Epic Prelude ADT [place] [address] Care Team Providers Care Escort Service Attendant Name Role Phone Rosibel Muse MD Primary Care Provider [phone] Encounter Details Date Type Department Care Team (Latest Contact Info) Description 10/03/2021 Travel Social History Tobacco Use Types Packs/Day [...] COVID-19? No / Unsure 10/03/2021 8:40 AM SOFTWARE ANALYST documented as of this encounter Plan of Treatment Upcoming Encounters Date Type Department Care Team (Late st Contact Info) Description 08/25/2024 2:00 PM SOFTWARE ANALYST Office Visit [facility] Oncology and Hematology - [place] [address] [facility] [address] [place] [address] Royal Newell MD [address] [facility] [address] [place] [address] documented as of this encounter Visit Diagnoses Not on filedocumented in this encounter Care Teams Escort Service Attendant Relationship Specialty Start Date End Date Rosibel Muse MD PCP - General Family Practice 05/24/21 05/06/24 documented as of this encounter
--- OUTSIDE RECORDS SUMMARY | 2024-08-17 09:07 | XMS_ITS | Encounter Summary ---
Author Organization [facility] [employer] [facility] Address [address] [place] [address] Care Team Providers Care Trim Technician Name Role Phone Rosibel Muse MD Primary Care Provider [phone] Encounter Details Date Type Department Care Team (Late Contact Info) Description 10/20/2021 Orders Only [facility] Oncology and Hematology [facility] [address] [place] [address] Beverley Heath Primary cancer of [...] COVID-19? No / Unsure 10/17/2021 8:40 AM BILINGUAL INTERPRETER documented as of this encounter Plan of Treatment Upcoming Encounters Date Type Department Care Team (Late Contact Info) Description 08/25/2024 2:00 PM BILINGUAL INTERPRETER Office Visit [facility] Oncology and Hematology [facility] [address] [place] [address] Royal Newell MD [address] [facility] [address] [place] [address] documented as of this encounter Procedures Procedure Name Priority Date/Time Associated Diagnosis Comments BASIC METABOLIC PANEL Routine 10/17/2021 documented in this encounter Results * BASIC METABOLIC PANEL (10/17/2021) Blood Abstract Provider CHEMISTRY ORDERABLES documented in this encounter Visit Diagnoses Diagnosis Primary cancer of ampulla of Vater documented in this encounter Care Teams Trim Technician Relationship Specialty Start Date End Date Rosibel Muse MD PCP - General Family Practice 05/24/21 05/06/24 documented as of this encounter
--- OUTSIDE RECORDS SUMMARY | 2024-08-17 09:07 | XMS_ITS | Encounter Summary ---
Author Organization [facility] [employer] [facility] Address [address] [place] [address] Care Team Providers Care Instructional Systems Design Consultant Name Role Phone Rosibel Muse MD Primary Care Provider [phone] Encounter Details Date Type Department Care Team ([facility] Contact Info) Description 07/11/2021 Orders Only [facility] Oncology and Hematology - [place] [address] [place] [address] Royal Newell MD [address] [facility] [address] do you roll? [address] [place] [address] Social History Tobacco Use Types [...] COVID-19? No / Unsure 07/11/2021 8:40 AM DOUBLE CUTTER documented as of this encounter Plan of Treatment Upcoming Encounters Date Type Department Care Team (Late Contact Info) Description 08/25/2024 2:00 PM DOUBLE CUTTER Office Visit [facility] Oncology and Hematology - [place] [address] [place] [address] Royal Newell MD [facility] [address] [place] [address] documented as of this encounter Visit Diagnoses Not on filedocumented in this encounter Care Teams Instructional Systems Design Consultant Relationship Specialty Start Date End Date Rosibel Muse MD PCP - General Family Practice 05/24/21 05/06/24 documented as of this encounter
--- OUTSIDE RECORDS SUMMARY | 2024-08-17 09:07 | XMS_ITS | Encounter Summary ---
Author Organization [facility] Address [address] [facility] Attn: Epic Prelude ADT [place] [address] Care Team Providers Care Tax Economist Name Role Phone Rosibel Muse MD Primary Care Provider [phone] Encounter Details Date Type Department Care Team (Latest Contact Info) Description 07/25/2021 Travel Social History Tobacco Use Types Packs/Day [...] COVID-19? No / Unsure 07/25/2021 8:28 AM BOLT MAKER documented as of this encounter Plan of Treatment Upcoming Encounters Date Type Department Care Team (Late st Contact Info) Description 08/25/2024 2:00 PM BOLT MAKER Office Visit [facility] Oncology and Hematology - [place] [address] [facility] [address] [place] [address] Royal Newell MD [address] [facility] [address] [place] [address] documented as of this encounter Visit Diagnoses Not on filedocumented in this encounter Care Teams Tax Economist Relationship Specialty Start Date End Date Rosibel Muse MD PCP - General Family Practice 05/24/21 05/06/24 documented as of this encounter
--- OUTSIDE RECORDS SUMMARY | 2024-08-17 09:07 | XMS_ITS | Encounter Summary ---
Author Organization [facility] [employer] [facility] Address [address] [place] [address] Care Team Providers Care Pharmacy Resident Name Role Phone Rosibel Muse MD Primary Care Provider [phone] Encounter Details Date Type Department Care Team ([facility] Contact Info) Description 11/01/2021 Orders Only [facility] Oncology and Hematology [facility] [address] [place] [address] Heath, [place] Ampullary carcinoma Social History Tobacco Use Types [...] Upcoming Encounters Date Type Department Care Team ([facility] Contact Info) Description 08/25/2024 2:00 PM FINANCIAL INSTITUTION MANAGER Office Visit [facility] Oncology and Hematology [facility] [address] [place] [address] Royal Newell MD [address] [facility] [address] [place] [address] documented as of this encounter 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
--- OUTSIDE RECORDS SUMMARY | 2024-08-17 09:07 | XMS_ITS | Encounter Summary ---
Author Organization [facility] [employer] [facility] Address [address] [place] [address] Care Team Providers Care Capacity Planning Manager Name Role Phone Rosibel Muse MD Primary Care Provider [phone] Encounter Details Date Type Department Care Team ([facility] Contact Info) Description 08/07/2021 Orders Only [facility] Oncology and Hematology - [place] [address] [place] [address] Royal Newell MD [address] [facility] [employer] [address] [place] [address] Ampullary carcinoma Social History Tobacco [...] COVID-19? 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
--- OUTSIDE RECORDS SUMMARY | 2024-08-17 09:07 | XMS_ITS | Encounter Summary ---
Author Organization [facility] [employer] [facility] Address [address] [place] [address] Care Team Providers Care Conservation Biology Professor Name Role Phone Rosibel Muse MD Primary Care Provider [phone] Reason for Visit * Reason Onset Date Comments infusion therapy 07/31/2021 infusion therap y Encounter Details Date Type Department Care Team ([facility] Contact Info) Description 07/31/2021 Telephone [facility] Oncology and Hematology [facility] [address] [place] [address] Royal Newell MD [address] [facility] [address] [place] [address] infusion therapy (infusion therapy) Social History Tobacco Use Types Packs/Day Years [...] COVID-19? No / Unsure 07/25/2021 8:28 AM GANG PUSHER documented as of this encounter Plan of Treatment Upcoming Encounters Date Type Department Care Team ([facility] Contact Info) Description 08/25/2024 2:00 PM GANG PUSHER Office Visit [facility] Oncology and Hematology [facility] [address] [place] [address] Royal Newell MD [address] [facility] [address] [place] [address] documented as of this encounter Visit Diagnoses Diagnosis Primary cancer of ampulla of Vater- Primary documented in this encounter Care Teams Conservation Biology Professor Relationship Specialty Start Date End Date Rosibel Muse MD PCP - General Family Practice 05/24/21 05/06/24 documented as of this encounter
--- OUTSIDE RECORDS SUMMARY | 2024-08-17 09:07 | XMS_ITS | Encounter Summary ---
Author Organization [facility] Address [address] [place] [address] Care Team Providers Care Trim Crew Supervisor Name Role Phone Rosibel Muse MD Primary Care Provider [phone] Encounter Details Date Type Department Care Team (Late Contact Info) Description 07/11/2021 Orders Only [facility] Oncology and Hematology [address] [address] Bev Maldonado, RN Social History Tobacco Use Types Packs/Day [...] COVID-19? No / Unsure 07/11/2021 8:40 AM SYSTEMS INTEGRATOR documented as of this encounter Plan of Treatment Upcoming Encounters Date Type Department Care Team (Late Contact Info) Description 08/25/2024 2:00 PM SYSTEMS INTEGRATOR Office Visit [facility] Oncology and Hematology [facility] [address] [facility] [address] [place] [address] Royal Newell MD [address] [facility] [address] [place] [address] documented as of this encounter Visit Diagnoses Not on filedocumented in this encounter Care Teams Trim Crew Supervisor Relationship Specialty Start Date End Date Rosibel Muse MD PCP - General Family Practice 05/24/21 05/06/24 documented as of this encounter
--- OUTSIDE RECORDS SUMMARY | 2024-08-17 09:07 | XMS_ITS | Encounter Summary ---
Author Organization [facility] [employer] [facility] Address [address] [place] [address] Care Team Providers Care Machine Ii Trimmer Name Role Phone Rosibel Muse MD Primary Care Provider [phone] Encounter Details Date Type Department Care Team ([facility] Contact Info) Description 08/14/2021 Orders Only [facility] Oncology and Hematology [facility] [address] [place] [address] [facility] Ampullary [facility] Social History Tobacco Use Types [...] COVID-19? 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
--- OUTSIDE RECORDS SUMMARY | 2024-08-17 09:07 | XMS_ITS | Encounter Summary ---
Author Organization [facility] Address [address] [facility] Attn: Epic Prelude ADT [place] [address] Care Team Providers Care Analytical Lead Name Role Phone Rosibel Muse MD Primary Care Provider [phone] Encounter Details Date Type Department Care Team (Latest Contact Info) Description 07/11/2021 Travel Social History Tobacco Use Types Packs/Day [...] COVID-19? No / Unsure 07/11/2021 8:40 AM MARKER DELIVERY documented as of this encounter Plan of Treatment Upcoming Encounters Date Type Department Care Team (Late st Contact Info) Description 08/25/2024 2:00 PM MARKER DELIVERY Office Visit [facility] Oncology and Hematology - [place] [address] [facility] [address] [place] [address] Royal Newell MD [address] [facility] [address] [place] [address] documented as of this encounter Visit Diagnoses Not on filedocumented in this encounter Care Teams Analytical Lead Relationship Specialty Start Date End Date Rosibel Muse MD PCP - General Family Practice 05/24/21 05/06/24 documented as of this encounter
--- OUTSIDE RECORDS SUMMARY | 2024-08-17 09:07 | XMS_ITS | Encounter Summary ---
Author Organization [facility] [employer] [facility] Address [address] [place] [address] Care Team Providers Care Foaming Machine Operator Name Role Phone Rosibel Muse MD Primary Care Provider Reason for Visit * Reason Onset Date Comments Vaginal Itching 10/31/2021 Jeanne had contac germán me stating that pt had stated she had vaginal itching a bumps to labia. I confirmed this with pt in our office. Dr. Newell made aware and he prescribed her Fluconazole 100mg po once daily for 7 days. Pt verbalizes understanding and will follow up with us and her PCP. Encounter Details Date Type Department Care Team (Late st Contact Info) Description 10/31/2021 Telephone [facility] Oncology and Hematology - [place] [address] [place] [address] [address] Royal Newell MD [address] [facility] [address] [place] [address] Vaginal Itching (Jeanne had contacted me stating that pt had stated she had vaginal itching a bumps to labia. I confirmed this with pt in our office. Dr. Newell made aware and he prescribed her Fluconazole 100mg po once daily for 7 days. Pt verbalizes understanding and will follow up with us and her PCP. ) Social History Tobacco Use Types Packs/Day Years [...] Telephone Encounter - Usman Johnson RN - 10/31/2021 9:06 AM CDT Jeanne had contacted me stating that pt had stated she had vaginal itching a bumps to labia. I confirmed this with pt in our office. Dr. Newell made aware and he prescribed her Fluconazole 100mg po once daily for 7 days. Pt verbalizes understanding and will follow up with us and her PCP. documented in this encounter Plan of Treatment Upcoming Encounters Date Type Department Care Team (Late st Contact Info) Description 08/25/2024 2:00 PM RETAIL CENTER RECEPTIONIST Office Visit [facility] Oncology and Hematology - [address] Royal Newell MD [address] [place] [address] [address] [place] [address] documented as of this encounter Visit Diagnoses Not on filedocumented in this encounter Care Teams Foaming Machine Operator Relationship Specialty Start Date End Date Rosibel Muse MD PCP - General Family Practice 05/24/21 05/06/24 documented as of this encounter
--- OUTSIDE RECORDS SUMMARY | 2024-08-17 09:07 | XMS_ITS | Encounter Summary ---
Author Organization [facility] [employer] [facility] Address [address] [place] [address] Care Team Providers Care Landscape Maintenance Internship Name Role Phone Rosibel Muse MD Primary Care Provider [phone] Reason for Visit * Reason Onset Date Comments Blood Transfusion 07/31/2021 transfusion Encounter Details Date Type Department Care Team ([facility] Contact Info) Description 07/31/2021 Telephone [facility] Oncology and Hematology - [place] [address] [place] [address] Royal Newell MD [address] [facility] [address] [place] [address] Blood Transfusion (transfusion) Social History Tobacco Use Types Packs/Day Years [...] COVID-19? No / Unsure 07/25/2021 8:28 AM JANITORIAL TECH documented as of this encounter Plan of Treatment Upcoming Encounters Date Type Department Care Team ([facility] Contact Info) Description 08/25/2024 2:00 PM JANITORIAL TECH Office Visit [facility] Oncology and Hematology - [place] [address] [place] [address] Royal Newell MD [address] [facility] [address] [place] [address] documented as of this encounter Visit Diagnoses Diagnosis Primary cancer of ampulla of Vater- Primary documented in this encounter Care Teams Landscape Maintenance Internship Relationship Specialty Start Date End Date Rosibel Muse MD PCP - General Family Practice 05/24/21 05/06/24 documented as of this encounter
--- OUTSIDE RECORDS SUMMARY | 2024-08-17 09:07 | XMS_ITS | Encounter Summary ---
Author Organization [facility] Address [address] [place] [address] Care Team Providers Care Color Shop Helper Name Role Phone Rosibel Muse MD Primary Care Provider [phone] Reason for Visit * Reason Onset Date Comments n/a 07/31/2021 n/a Encounter Details Date Type Department Care Team ([facility] Contact Info) Description 07/31/2021 Telephone [facility] Oncology and Hematology - [place] [address] [facility] [address] [address] Royal Newell MD [address] [facility] [address] [place] [address] n/a (n/a) Social History Tobacco Use Types Packs/Day Years [...] COVID-19? No / Unsure 07/25/2021 8:28 AM FACILITY PLANNER documented as of this encounter Plan of Treatment Upcoming Encounters Date Type Department Care Team ([facility] Contact Info) Description 08/25/2024 2:00 PM FACILITY PLANNER Office Visit [facility] Oncology and Hematology - [place] [address] [facility] [address] [place] [address] Royal Newell MD [address] [facility] [address] [place] [address] documented as of this encounter Visit Diagnoses Not on filedocumented in this encounter Care Teams Color Shop Helper Relationship Specialty Start Date End Date Rosibel Muse MD PCP - General Family Practice 05/24/21 05/06/24 documented as of this encounter
--- OUTSIDE RECORDS SUMMARY | 2024-08-17 09:07 | XMS_ITS | Encounter Summary ---
Author Organization [facility] [employer] [facility] Address [address] [place] [address] Care Team Providers Care Encyclopedia Research Worker Name Role Phone Rosibel Muse MD Primary Care Provider [phone] Encounter Details Date Type Department Care Team ([facility] Contact Info) Description 08/21/2021 Orders Only [facility] Oncology and Hematology - [place] [address] [place] [address] Royal Newell MD [address] [facility] [employer] [address] [place] [address] Ampullary carcinoma Social History Tobacco [...] COVID-19? 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
--- OUTSIDE RECORDS SUMMARY | 2024-08-17 09:07 | XMS_ITS | Encounter Summary ---
Author Organization [facility] [employer] [facility] Address [address] [place] [address] Care Team Providers Care Press And Blow Machine Tender Name Role Phone Rosibel Muse MD Primary Care Provider [phone] Encounter Details Date Type Department Care Team ([facility] Contact Info) Description 10/30/2021 Orders Only [facility] Oncology and Hematology - [place] [address] [place] [address] Royal Newell MD [address] [facility] [employer] [address] [place] [address] Ampullary carcinoma Social History Tobacco [...] (Late Contact Info) Description 08/25/2024 2:00 PM DUMPSTER OPERATOR Office Visit [facility] Oncology and Hematology - [place] [address] [place] [address] Royal Newell MD [address] [facility] [address] [place] [address] documented as of this encounter Visit Diagnoses Diagnosis 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
--- OUTSIDE RECORDS SUMMARY | 2024-08-17 09:07 | XMS_ITS | Encounter Summary ---
Author Organization [facility] [employer] [facility] Address [address] [place] [address] Care Team Providers Care Alberene Stone Setter Name Role Phone Rosibel Muse MD Primary Care Provider [phone] Encounter Details Date Type Department Care Team ([facility] Contact Info) Description 10/16/2021 Orders Only [facility] Oncology and Hematology - [place] [address] [place] [address] Royal Newell MD 2[address] [facility] [employer] [address] [place] [address] Ampullary carcinoma Social History Tobacco [...] COVID-19? 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
--- OUTSIDE RECORDS SUMMARY | 2024-08-17 09:07 | XMS_ITS | Encounter Summary ---
Author Organization [facility] [employer] [facility] Address [address] [place] [address] Care Team Providers Care Video Game Script Writer Name Role Phone Rosibel Muse MD Primary Care Provider [phone] Reason for Visit * Reason Comments Chemotherapy chemo and labs Encounter Details Date Type Department Care Team (Late st Contact Info) Description 07/25/2021 8:30 AM ASSOCIATE JUSTICE Office Visit [facility] Oncology and Hematology - [place] [address] [place] [address] [address] [place] [address] Royal Newell MD [address] [facility] [address] [place] [address] Ampullary carcinoma (Primary Dx); Prophylaxis for chemotherapy-induced neutropenia Social History Tobacco Use Types Packs/Day Years [...] No / Unsure 07/25/2021 8:28 AM ASSOCIATE JUSTICE documented as of this encounter Last Filed Vital Signs Vital Sign Reading Time Taken Comments Blood Pressure 98/58 07/25/2021 8:34 AM ASSOCIATE JUSTICE man ual Pulse 96 07/25/2021 8:34 AM ASSOCIATE JUSTICE Temperature 36.9 ??C (98.5 ??F) 07/25/2021 8:34 AM CS T Respiratory Rate - - Oxygen Saturation 98% 07/25/2021 8:34 AM ASSOCIATE JUSTICE Inhaled Oxygen Concentration - - Weight 65 kg (143 lb 3.2 oz) 07/25/2021 8:34 AM ASSOCIATE JUSTICE Height 157.5 cm (5' 2 ) 07/25/2021 8:34 AM ASSOCIATE JUSTICE Body Mass Index 26.19 07/25/2021 8:34 AM ASSOCIATE JUSTICE documented in this encounter Progress Notes * Royal Newell MD - 07/25/2021 9:43 AM CST HEMATOLOGY / ONCOLOGY PROGRESS NOTE Patient Identification: Name: Krissy Jaquez White Age: 65 y.o. 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 EGD done on May 22 showed malignant appearing duodenal mass and biopsies were taken. Pathology came back positive for gastritis. [facility] where she had EUS and ERCP done with Dr. Medeiros. 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 SUBJECTIVE Patient came into the office for follow-up visit and to continue chemotherapy treatment. He is complaining of tiredness and fatigue. Denies any neuropathy. Denies any diarrhea. She has some right upper quadrant abdominal pain. No other new complaints. Review of system Constitutional: denies fevers, sweats, complain of tiredness and fatigue HEENT: denies sinus congestion, hearing or vision problems Respiratory: denies cough, dyspnea, wheeze Cardiovascular: denies chest pain, exertional chest pressure/discomfort, nausea, syncope, shortnessof breath GI: denies constipation, diarrhea, dsyphagia, reflux symptoms, vomiting, melena, complain of right upper quadrant abdominal discomfort : denies dysuria, frequency, incontinence, [...] 23.8 hemoglobin 8.8 platelet 259,000 creatinine 0.9 Assessment: Plan: Patient Active Problem [...] distant metastasis. Patient was evaluated by Dr. DiPasco and surgery. Recommendation was made for neoadjuvant chemotherapy. Patient started neoadjuvant chemotherapy with modified FOLFIRINOX regimen on July 11. Labs noted. Patient is more anemic today. We will hold chemotherapy for 1 week. Anemia. I recommended oral iron twice a day with vitamin B12 daily. History of elevated liver enzyme status post pancreatic stent placement. We will continue to monitor liver enzymes. Elevated WBC count. This is secondary to Neulasta bio similar. We will hold it for now. Chemotherapy-induced neutropenia prophylaxis. Patient is on Neulasta bio similar. TOBACCO COUNSELING She is not a tobacco user. 07/25/2021 Royal Newell MD CIATE JUSTICE documented in this encounter Plan of Treatment Upcoming Encounters Date Type Department Care Team (Late st Contact Info) Description 08/25/2024 2:00 PM ASSOCIATE JUSTICE Office Visit [facility] Oncology and Hematology [facility] [address] [facility] [address] [place] [address] [place] [address] [place] [address] [address] [place] [address] Scheduled Orders Name Type Priority Associated Diagnoses Orde r Schedule BASIC METABOLIC PANEL Lab Stat Ampullary carcinoma Expected: 08/15/2021, Expires: 07/25/2022 CBC WITH DIFFERENTIAL Lab Stat Ampullary carcinoma Expected: 08/15/2021, Expires: 07/25/2022 documented as of this encounter Visit Diagnoses Diagnosis Ampullary carcinoma- Primary Malignant neoplasm of ampulla of Vater Prophylaxis for chemotherapy-induced neutropenia documented in this encounter Care Teams Video Game Script Writer Relationship Specialty Start Date End Date Rosibel Muse MD PCP - General Family Practice 05/24/21 05/06/24 documented as of this encounter
--- OUTSIDE RECORDS SUMMARY | 2024-08-17 09:07 | XMS_ITS | Encounter Summary ---
Author Organization [facility] [employer] [facility] Address [address] [place] [address] Care Team Providers Care Search Lead Name Role Phone Rosibel Muse MD Primary Care Provider [phone] Encounter Details Date Type Department Care Team ([facility] Contact Info) Description 10/31/[address] [facility] Oncology and Hematology [facility] [address] [place] [address] [place], [place] Ampullary carcinoma Social History Tobacco Use Types [...] Upcoming Encounters Date Type Department Care Team ([facility] Contact Info) Description 08/25/2024 2:00 PM BATTERY TECHNICIAN Office Visit [facility] Oncology and Hematology [facility] [address] [place] [address] Royal Newell MD [address] [facility] [address] [place] [address] documented as of this encounter Visit Diagnoses Diagnosis Ampullary carcinoma Malignant neoplasm of ampulla of Vater documented in this encounter Care Teams Search Lead Relationship Specialty Start Date End Date Rosibel Muse MD PCP - General Family Practice 05/24/21 05/06/24 documented as of this encounter
--- OUTSIDE RECORDS SUMMARY | 2024-08-17 09:07 | XMS_ITS | Encounter Summary ---
Author Organization [facility] [employer] [facility] Address [address] [place] [address] Care Team Providers Care Bullet Slug Casting Machine Operator Name Role Phone Rosibel Muse MD Primary Care Provider [phone] Reason for Visit * Reason Comments Follow Up follow up labs Encounter Details Date Type Department Care Team (Late st Contact Info) Description 07/11/2021 8:30 AM ROOM SERVICE CLERK Office Visit [facility] Oncology and Hematology - [place] [address] [place] [address] [address] [place] [address] Royal Newell MD [address] [facility] [address] [place] [address] Ampullary carcinoma (Primary Dx) Social [...] COVID-19? No / Unsure 07/11/2021 8:40 AM ROOM SERVICE CLERK documented as of this encounter Last Filed Vital Signs Vital Sign Reading Time Taken Comments Blood Pressure 133/81 07/11/2021 8:48 AM ROOM SERVICE CLERK Pulse 80 07/11/2021 8:48 AM ROOM SERVICE CLERK Temperature 36.6 ??C (97.9 ??F) 07/11/2021 8:48 AM CS T Respiratory Rate - - Oxygen Saturation 93% 07/11/2021 8:48 AM ROOM SERVICE CLERK Inhaled Oxygen Concentration - - Weight 65.8 kg (145 lb 1.6 oz) 07/11/2021 8:48 A M ROOM SERVICE CLERK Height 157.5 cm (5' 2 ) 07/11/2021 8:48 AM ROOM SERVICE CLERK Body Mass Index 26.54 07/11/2021 8:48 AM ROOM SERVICE CLERK documented in this encounter Progress Notes * Royal Newell MD - 07/11/2021 9:08 AM CST HEMATOLOGY / ONCOLOGY PROGRESS NOTE [...] taken. Pathology came back positive for gastritis. [facility] where she had EUS and ERCP done with Dr. Medeiros. 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 SUBJECTIVE Patient came into the office for follow-up visit and to start chemotherapy treatment. She has intermittent abdominal pain. No diarrhea neuropathy. She has gained 2 lb. weight. Complain of mild tiredness and fatigue. No other new complaint. Review of system Constitutional: denies fevers, sweats, complain of mild tiredness and fatigue HEENT: denies sinus congestion, hearing or vision problems Respiratory: denies cough, dyspnea, wheeze Cardiovascular: denies chest pain, exertional chest pressure/discomfort, nausea, syncope, shortnessof breath GI: denies constipation, diarrhea, dsyphagia, reflux symptoms, vomiting, melena, complain of upper abdominal pain : denies dysuria, frequency, incontinence, [...] 6.5 hemoglobin 9.9 platelet 408,000 creatinine 0.7 @IMAGEIMP@ Assessment: Plan: Patient Active Problem List Diagnosis [...] Recommendation was made for neoadjuvant chemotherapy. Patient will start neoadjuvant chemotherapy with modified FOLFIRINOX regimen on 07/11/2021. Labs noted. We'll proceed with chemotherapy today. Anemia. I have recommended her to take iron twice a day with vitamin B12 daily. Elevated liver enzyme. Status post pancreatic stent placement. We'll continue to watch CMP. TOBACCO COUNSELING She is not a tobacco user. 07/11/2021 Royal Newell MD SERVICE CLERK documented in this encounter Plan of Treatment Upcoming Encounters Date Type Department Care Team (Late st Contact Info) Description 08/25/2024 2:00 PM ROOM SERVICE CLERK Office Visit [facility] Oncology and Hematology [facility] [address] [facility] [address] [place] [address] Royal Newell MD [address] [facility] [address] [place] [address] Scheduled Orders Name Type Priority Associated Diagnoses Orde r Schedule COMPREHENSIVE METABOLIC PANEL Lab Stat Ampullary carcinoma Expected: 07/25/2021, Expires: 07/11/2022 CBC WITH DIFFERENTIAL Lab Stat Ampullary carcinoma Expected: 07/25/2021, Expires: 07/11/2022 documented as of this encounter Visit Diagnoses Diagnosis Ampullary carcinoma- Primary Malignant neoplasm of ampulla of Vater documented in this encounter Care Teams Bullet Slug Casting Machine Operator Relationship Specialty Start Date End Date Rosibel Muse MD PCP - General Family Practice 05/24/21 05/06/24 documented as of this encounter
--- OUTSIDE RECORDS SUMMARY | 2024-08-17 09:07 | XMS_ITS | Encounter Summary ---
Author Organization [facility] [employer] [facility] Address [address] [place] [address] Care Team Providers Care Transport Aide Name Role Phone Rosibel Muse MD Primary Care Provider [phone] Encounter Details Date Type Department Care Team ([facility] Contact Info) Description 07/11/2021 Orders Only [facility] Oncology and [facility] [address] [place] [address] Provider, Abstract NO ADDRESS ON FILE Iron deficiency anemia, unspecified iron deficiency anemia [...] COVID-19? No / Unsure 07/11/2021 8:40 AM COMPOSITION WORKER documented as of this encounter Plan of Treatment Upcoming Encounters Date Type Department Care Team ([facility] Contact Info) Description 08/25/2024 2:00 PM COMPOSITION WORKER Office Visit [facility] Oncology and Hematology [facility] [address] [place] [address] Royal Newell MD 2[address] [facility] [address] [place] [address] documented as of this encounter Procedures Procedure Name Priority Date/Time Associated Diagnosis Comments CBC WITH DIFFERENTIAL Routine 07/11/2021 COMPREHENSIVE METABOLIC PANEL Routine 07/11/2021 BASIC METABOLIC PANEL Routine 07/11/2021 documented in this encounter Results * CBC WITH DIFFERENTIAL (07/11/2021) Blood Abstract Provider HEMATOLOGY ORDERABLE S * COMPREHENSIVE METABOLIC PANEL (07/11/2021) Blood Abstract Provider CHEMISTRY ORDERABLES * BASIC METABOLIC PANEL (07/11/2021) Blood Abstract Provider CHEMISTRY ORDERABLES documented in this encounter Visit Diagnoses Diagnosis Iron deficiency anemia, unspecified iron deficiency anemia type- Primary documented in this encounter Care Teams Transport Aide Relationship Specialty Start Date End Date Rosibel Muse MD PCP - General Family Practice 05/24/21 05/06/24 documented as of this encounter
--- OUTSIDE RECORDS SUMMARY | 2024-08-17 09:08 | XMS_ITS | Encounter Summary ---
Author Organization [facility] Address [address] [place] [address] Care Team Providers Care Color Blender Name Role Phone Rosibel Muse MD Primary Care Provider [phone] Encounter Details Date Type Department Care Team (Late Contact Info) Description 06/08/2021 Abstract [facility] Oncology and Hematology [address] [address] Provider, Abstract NO ADDRESS ON FILE Social History Tobacco Use Types Packs/Day Years Used Date Smoking Tobacco: Former Cigarettes 1 30 0 08/12/1973 - 08/12/2003 Smokeless Tobacco: Never Sex and Gender Information Value Date Recorded Sex Assigned at Not on file Gender Identity Not on file Sexual Orientation Not on file COVID-19 Exposure Response Date Recorded In the last month, have you been in contact with someone who was confirmed or suspected to have Coronavirus / COVID-19? No / Unsure 05/23/2021 2:56 PM CDT documented as of this encounter Plan of Treatment Upcoming Encounters Date Type Department Care Team (Late Contact Info) Description 08/25/2024 2:00 PM CAN WASHER Office Visit [facility] Oncology and Hematology - [place] [address] [address] Royal Newell MD [address] [facility] [address] [place] [address] documented as of this encounter Visit Diagnoses Not on filedocumented in this encounter Care Teams Color Blender Relationship Specialty Start Date End Date Rosibel Muse MD PCP - General Family Practice 05/24/21 05/06/24 documented as of this encounter
--- OUTSIDE RECORDS SUMMARY | 2024-08-17 09:08 | XMS_ITS | Encounter Summary ---
Author Organization [facility] Address [address] [place] [address] Care Team Providers Care Cooperer Name Role Phone Rosibel Muse MD Primary Care Provider [phone] Encounter Details Date Type Department Care Team (Late Contact Info) Description 06/19/2021 Orders Only [facility] Oncology and Hematology [address] [address] Bev Maldonado RN Ampullary carcinoma Social History Tobacco Use Types [...] have Coronavirus / COVID-19? No / Unsure 06/09/2021 11:08 AM CDT documented as of this encounter Plan of Treatment Upcoming Encounters Date Type Department Care Team ([facility] Contact Info) Description 08/25/2024 2:00 PM ECHO TECHNICIAN Office Visit [facility] Oncology and Hematology [facility] [address] [facility] [address] [place] [address] Royal Newell MD [address] [facility] [address] [place] [address] documented as of this encounter Visit Diagnoses Diagnosis Ampullary carcinoma Malignant neoplasm of ampulla of Vater documented in this encounter Care Teams Cooperer Relationship Specialty Start Date End Date Rosibel Muse MD PCP - General Family Practice 05/24/21 05/06/24 documented as of this encounter
--- OUTSIDE RECORDS SUMMARY | 2024-08-17 09:08 | XMS_ITS | Encounter Summary ---
Author Organization [facility] [employer] [facility] Address [address] [place] [address] Care Team Providers Care Director Of Search Engine Marketing Name Role Phone Rosibel Muse MD Primary Care Provider [phone] Reason for Referral * Eval and Treat (Routine) - Closed Specialty Diagnoses / Procedures Referred By Divina berman Referred To Contact Surgery Diagnoses Ampullary carcinoma Royal Newell MD [phone] [place] [phone] Referral ID Status Reason Start Date Expiration Date Visits Requested Visits Authorized [id number] Closed Ordering Department To Schedule 06/09/2021 06/09/2022 1 1 * Eval and Treat (Routine) - Closed Specialty Diagnoses / Procedures Referred By Divina berman Referred To Contact Oncology Diagnoses Ampullary carcinoma Royal Newell MD [phone] [place] [phone] Referral ID Status Reason Start Date Expiration Date Visits Requested Visits Authorized [id number] Closed Ordering Department To Schedule 06/09/2021 06/10/2022 1 1 Reason for Visit * Reason Comments Establish Care establish care for p ancreatitis mass Encounter Details Date Type Department Care Team (Late st Contact Info) Description 06/09/2021 11:15 AM CDT Office Visit [facility] Oncology and Hematology [facility] [address] [facility] [address] [place] [address] Royal Newell MD [address] [facility] [address] [place] [address] Ampullary carcinoma (Primary Dx) Social [...] Sign Reading Time Taken Comments Blood Pressure 97/71 06/09/2021 11:35 AM CDT Pulse 80 06/09/2021 11:35 AM CDT Temperature 36.9 ??C (98.5 ??F) 06/09/2021 11:35 AM C DT Respiratory Rate - - Oxygen Saturation 96% 06/09/2021 11:35 AM CDT Inhaled Oxygen Concentration - - Weight 64.5 kg (142 lb 3.2 oz) 06/09/2021 11:35 AM CDT Height 157.5 cm (5' 2 ) 06/09/2021 11:35 AM CDT Body Mass Index 26.01 06/09/2021 11:35 AM CDT documented in this encounter Progress Notes * Royal Newell MD - 06/09/2021 2:53 PM CDT HEMATOLOGY / ONCOLOGY PROGRESS NOTE Patient Identification: Name: Krissy Oneal Age: 65 y.o. 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 TREATMENT HISTORY SUBJECTIVE Patient came into the office for follow-up visit after recently being discharged from the [facility] on June 01. She was initially seen on May 19 [facility] due to intermittent abdominal pain and bloating for 3 to 4 months duration with [address] abdomen showed intraand extrahepatic biliary dilation and 7 mm nodule at the base of the lung. MRCP showed 4 cm mass ofthe ampulla of Vater. EGD done on May 22 showed malignant appearing duodenal mass and biopsies were taken. Pathology came back positive for gastritis. Patient was then transferred to [facility] where she had EUS and ERCP done with Dr. Medeiros. Patient had pancreatic stent placement and bio psies were taken that showed ampullary adenocarcinoma. She was seen by Dr. Ken and surgery consultation who suggested neoadjuvant chemotherapy prior to any surgical attempt. Patient is feeling better and eating better but remains quite tired and fatigue. Abdominal pain has significantly improved. Review of system Constitutional: denies fevers, sweats, complain of tiredness and fatigue HEENT: denies sinus congestion, hearing or vision problems Respiratory: denies cough, dyspnea, wheeze Cardiovascular: denies chest pain, exertional chest pressure/discomfort, nausea, syncope, shortnessof breath GI: denies constipation, diarrhea, dsyphagia, reflux symptoms, vomiting, melena : denies dysuria, frequency, incontinence, urgency Integumentary system: no lymphadenopathy, sweats, flushing Musculoskeletal: denies: myalgia, arthralgia Neurological: denies blurry or disturbed vision, numbness/weakness, dizziness Skin: No lumps, bumps or rashes. Objective: Vital signs in last 24 hours: [...] No lymphadenopathy Neuro: No obvious focal deficit ECOG performance status 1 PATH LABS Labs from May 30 showed WBC 6.5 hemoglobin 9.9 platelet 371,000 creatinine 0.9 total bilirubin 0.9 alkaline phosphatase 314 AST 27 ALT 50 @IMAGEIMP@ Assessment: Plan: Patient Active Problem List [...] surgery. Recommendation was made for neoadjuvant chemotherapy. I plan to start her on chemotherapy with modified FOLFIRINOX regimen. After 4 months of chemotherapy we will evaluate for surgery for possible chemotherapy along with radiation therapy treatment. She will have repeat CT scan after 2 months of chemotherapy. I personally discussed the side effects of chemotherapy. I will refer her for chemotherapy teaching as well as port placement. Normocytic anemia. I will order iron and vitamin B12 level. I have instructed her to take oral irontwice a day. Elevated liver enzymes. We will repeat CMP. Liver enzyme has been improving since her pancreatic stent placement. ? TOBACCO COUNSELING She is not a tobacco user. 06/09/2021 Royal Newell MD ICAL CORSETIER documented in this encounter Plan of Treatment Upcoming Encounters Date Type Department Care Team (Late st Contact Info) Description 08/25/2024 2:00 PM SURGICAL CORSETIER Office Visit [facility] Oncology and Hematology [place] [address] [place] [address] Royal Newell MD [address] [facility] [address] [place] [address] Scheduled Orders Name Type Priority Associated Diagnoses Orde r Schedule CBC WITH DIFFERENTIAL Lab Stat Ampullary carcinoma Expected: 06/09/2021, Expires: 06/09/2022 COMPREHENSIVE METABOLIC PANEL Lab Stat Ampullary carcinoma Expected: 06/09/2021, Expires: 06/09/2022 FERRITIN Lab Routine Ampullary carcinoma Expected: 06/09/2021, Expires: 06/09/2022 IRON, TIBC, AND PERCENT SATURATION Lab Routine Ampullary carcinoma Expected: 06/09/2021, Expires: 06/09/2022 VITAMIN B12 LEVEL Lab Routine Ampullary carcinoma Expected: 06/09/2021, Expires: 06/09/2022 Scheduled Referrals Name Type Priority Associated Diagnoses Orde r Schedule AMB REFERRAL TO CHEMO TEACHING Outpatient Referral Routine Ampullary carcinoma Ordered: 06/09/2021 AMB REFERRAL TO GENERAL SURGERY Outpatient Referral Routine Ampullary carcinoma Ordered: 06/09/2021 documented as of this encounter Visit Diagnoses Diagnosis 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
--- OUTSIDE RECORDS SUMMARY | 2024-08-17 09:08 | XMS_ITS | Encounter Summary ---
Author Organization [facility] [employer] [facility] Address [address] [place] [address] Care Team Providers Care Drink Box Mechanic Name Role Phone Rosibel Muse MD Primary Care Provider [phone] Encounter Details Date Type Department Care Team ([facility] Contact Info) Description 06/12/2021 Orders Only [facility] Oncology and Hematology [facility] [address] [place] [address] [place], [place] Ampullary carcinoma Social History Tobacco Use Types [...] Upcoming Encounters Date Type Department Care Team ([facility] Contact Info) Description 08/25/2024 2:00 PM EMS MANAGER Office Visit [facility] Oncology and Hematology [facility] [address] [place] [address] Royal Newell MD [address] [facility] [address] [place] [address] documented as of this encounter Visit Diagnoses Diagnosis 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
--- OUTSIDE RECORDS SUMMARY | 2024-08-17 09:08 | XMS_ITS | Encounter Summary ---
Author Organization [facility] Address [address] [place] [address] Care Team Providers Care Special Education Inclusion Teacher Name Role Phone Rosibel Muse MD Primary Care Provider [phone] Encounter Details Date Type Department Care Team (Late Contact Info) Description 06/08/2021 Abstract [facility] Oncology and Hematology [address] [address] Provider, Abstract NO ADDRESS ON [...] (Late Contact Info) Description 08/25/2024 2:00 PM GRINDER OPERATOR AUTOMATIC Office Visit [facility] Oncology and Hematology - [place] [address] [address] Royal Newell MD [address] [facility] [address] [place] [address] documented as of this encounter Visit Diagnoses Not on filedocumented in this encounter Care Teams Special Education Inclusion Teacher Relationship Specialty Start Date End Date Rosibel Muse MD PCP - General Family Practice 05/24/21 05/06/24 documented as of this encounter
--- OUTSIDE RECORDS SUMMARY | 2024-08-17 09:08 | XMS_ITS | Encounter Summary ---
Author Organization [facility] Address [address] [facility] Attn: Epic Prelude ADT [place] [address] Care Team Providers Care Vascular Specialists Name Role Phone Rosibel Muse MD Primary Care Provider [phone] Encounter Details Date Type Department Care Team (Latest Contact Info) Description 06/09/2021 Travel Social History Tobacco Use Types Packs/Day [...] Contact Info) Description 08/25/2024 2:00 PM RN INTERNSHIP Office Visit [facility] Oncology and Hematology - [place] [address] [facility] [address] [place] [address] Royal Newell MD [address] [facility] [address] [place] [address] documented as of this encounter Visit Diagnoses Not on filedocumented in this encounter Care Teams Vascular Specialists Relationship Specialty Start Date End Date Rosibel Muse MD PCP - General Family Practice 05/24/21 05/06/24 documented as of this encounter
--- OUTSIDE RECORDS SUMMARY | 2024-08-17 09:08 | XMS_ITS | Encounter Summary ---
Author Organization [facility] [employer] [facility] Address [address] [place] [address] Care Team Providers Care Punch Molder Name Role Phone Rosibel Muse MD Primary Care Provider [phone] Encounter Details Date Type Department Care Team (Late Contact Info) Description 07/10/2021 Orders Only [facility] Oncology and Hematology - [place] [address] [place] [address] Royal Newell MD [address] [place] [address] Social History Tobacco Use Types Packs/Day [...] (Late Contact Info) Description 08/25/2024 2:00 PM CURING PRESS MAINTAINER Office Visit [facility] Oncology and Hematology - [place] [address] [place] [address] Royal Newell MD [address] [place] [address] documented as of this encounter Visit Diagnoses Not on filedocumented in this encounter Care Teams Punch Molder Relationship Specialty Start Date End Date Rosibel Muse MD PCP - General Family Practice 05/24/21 05/06/24 documented as of this encounter
--- OUTSIDE RECORDS SUMMARY | 2024-08-17 09:08 | XMS_ITS | Encounter Summary ---
Author Organization [facility] Address [address] [facility] Attn: Epic Prelude ADT [place] [address] Care Team Providers Care Tool/Die Maker Name Role Phone Unavailable Primary Care Provider Unavailabl e Encounter Details Date Type Department Care Team (Latest Contact Info) Description 05/23/2021 Travel Social History Tobacco Use Types Packs/Day Years Used Date Smoking Tobacco: Never Assessed Sex and Gender Information Value Date Recorded [...] Contact Info) Description 08/25/2024 2:00 PM MANAGER OFFICE Office Visit [facility] Oncology and Hematology - [place] [address] [place] [address] [facility] [address] [place] [address] Royal Newell MD [address] [facility] [address] [place] [address] documented as of this encounter Visit Diagnoses Not on filedocumented in this encounter
--- OUTSIDE RECORDS SUMMARY | 2024-08-17 09:08 | XMS_ITS | Encounter Summary ---
Author Organization [facility] Address [address] [place] [address] Care Team Providers Care Raw Finish Mill Operator Name Role Phone Rosibel Muse MD Primary Care Provider [phone] Reason for Visit * Reason Onset Date Comments Medication Refill 06/19/2021 Encounter Details Date Type Department Care Team ([facility] Contact Info) Description 06/19/2021 Refill [facility] Oncology and Hematology [facility] [id number] [place] [address] Royal Newell MD [facility] [address] [address] Ampullary carcinoma Social History Tobacco Use [...] Upcoming Encounters Date Type Department Care Team ([facility] Contact Info) Description 08/25/2024 2:00 PM PRISON WARDEN Office Visit [facility] Oncology and Hematology [facility] [address] [place] [address] [address] [place] [address] Royal Newell MD [address] [facility] [address] [place] [address] documented as of this encounter Visit Diagnoses Diagnosis 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
--- OUTSIDE RECORDS SUMMARY | 2024-08-17 09:08 | XMS_ITS | Encounter Summary ---
Author Organization [facility] Address 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 Name Role Phone Rosibel Muse MD Primary Care Provider Reason for Visit * Auth/Cert Specialty Diagnoses / Procedures Referred By Contac t Referred To Contact Oncology Diagnoses pancreatic and duodenal mass [facility] [address] [place] [address] Referral ID Status Reason Start Date Expiration Date Visits Re quested Visits Authorized [id number] 1 1 Encounter Details Date Type Department Care Team (Late st Contact Info) Description 05/25/2021 1:00 PM CDT - 05/25/2021 2:00 PM CDT Surgery [facility] GI Lab S [facility] [address] [place] [address] Omar Gonzalez MD [address] [address] ULTRASOUND ENDOSCOPIC Surgery Details Date/Time Status Location OR Service Patient Class Case Class Case Type Trauma Case? 05/25/2021 1:00 PM Posted [facility] GI LAB GI 08 Gastroenterology Inpatient Elective No Panel 1 Procedure LRB Anes Op Region Wound Class Comments ULTRASOUND ENDOSCOPIC N/A General Mouth CHOLANGIOPANCREATOGRAPHY RET ROGRADE ENDOSCOPIC N/A General Mouth ESOPHAGOGASTRODUODENOSCOPY N/A General Mouth Surgeon Surgeon Role Service Panel Omar Gonzalez MD Primary Gastroenterology 1 documented in this encounter Social History [...] Sign Reading Time Taken Comments Blood Pressure 148/46 05/25/2021 8:30 AM CDT Pulse 71 05/25/2021 8:30 AM CDT Temperature 36.6 ??C (97.8 ??F) 05/25/2021 8:30 AM CD T Respiratory Rate 16 05/25/2021 8:30 AM CDT Oxygen Saturation 97% 05/25/2021 8:30 AM CDT Inhaled Oxygen Concentration - - Weight 72.6 kg (160 lb) 05/24/2021 3:57 AM CDT Height 157.5 cm (5' 2 ) 05/24/2021 3:57 AM CDT Body Mass Index 27.42 05/27/2021 7:42 PM CDT documented in this encounter Discharge Summaries * Lanny Coleman MD - 06/01/2021 3:05 PM CDT [facility] Adult Hospitalist Discharge Summary Krissy Oneal 65 y.o. female 1955 CSN: [id number] Date of Admission: 05/24/2021 Date of Discharge: 06/01/2021 Discharging Physician: Lanny Coleman MD LOS: 8 days PCP: Rosibel Muse MD Activity: activity as tolerated. Dispo: home Diet: DIET FAT CONTROL Code Status at Discharge: Full Code Wound Care: None needed Admitting Dx: Pancreatic mass Discharge Diagnoses: Active Hospital Problems Diagnosis ??? Bacteremia due to Klebsiella pneumoniae ??? Elevated LFTs ??? Primary cancer of ampulla of Vater ??? Acute diarrhea ??? COPD (chronic obstructive pulmonary disease) ??? Acute pancreatitis without necrosis or infection, unspecified ??? Benign hypertension ??? Pancreatic mass ??? Jaundice, non- ??? Abdominal pain Resolved Hospital Problems No resolved problems to display. Discharge medications and new prescriptions: Medication List START taking these medications cephALEXin 500 mg capsule Commonly known as: KEFLEX Take 1 Capsule (500 mg) by mouth 4 times daily for 12 days. Signed by: Dr. Lanny Coleman MD Quantity: 48 Capsule Refills: 0 HYDROcodone-acetaminophen 10-325 mg Tablet Commonly known as: NORCO Take 1 Tablet by mouth 2 times daily as needed for Pain. Max Daily Amount: 2 Tablets Signed by: Dr. Lanny Coleman MD Quantity: 6 Tablet Refills: 0 naloxone 4 mg/spray [place], Non-Aerosol Commonly known as: NARCAN EMERGENCY USE ONLY: Administer 1 spray (4 mg) in one nostril one time. May repeat in alternating nostrils every 2-3 min until responsive or EMS arrives. Signed by: Dr. Lanny Coleman MD Quantity: 2 Each Refills: 3 ondansetron 4 mg Tablet, Rapid Dissolve Commonly known as: ZOFRAN ODT Take 1 Tablet (4 mg) by mouth every 8 hours as needed for Nausea/Emesis. Dissolve tablet on top of tongue, then swallow with saliva. Signed by: Dr. Lanny Coleman MD Quantity: 9 Tablet Refills: 0 Saccharomyces boulardii 250 mg Capsule Commonly known as: FLORASTOR Take 1 Capsule (250 mg) by mouth 2 times daily for 12 days. Signed by: Dr. Lanny Coleman MD Quantity: 24 Capsule Refills: 0 CONTINUE taking these medications albuterol sulfate 90 mcg/Actuation inhaler Take 2 Puffs by inhalation every 4 hours as needed for Shortness of Breath. Refills: 0 ALPRAZolam 1 mg tablet Commonly known as: XANAX Take 1 mg by mouth nightly as needed for Anxiety. Refills: 0 budesonide-formoteroL 160-4.5 mcg/actuation HFA Aerosol Inhaler Commonly known as: SYMBICORT Take 2 Puffs by inhalation 2 times daily. Refills: 0 fluticasone propionate 50 mcg/spray [place], Suspension nasal inhaler Commonly known as: FLONASE Administer 2 Sprays in each nostril daily. Refills: 0 hydroCHLOROthiazide 25 mg tablet Take 25 mg by mouth daily. Refills: 0 omeprazole 40 mg Capsule, Delayed Release(E.C.) Commonly known as: PriLOSEC Take 40 mg by mouth daily. Refills: 0 quinapriL 40 mg tablet Commonly known as: ACCUPRIL Take 40 mg by mouth daily. Refills: 0 sertraline 50 mg tablet Commonly known as: ZOLOFT Take 50 mg by mouth daily at bedtime. Refills: 0 simvastatin 20 mg tablet Commonly known as: ZOCOR Take 20 mg by mouth daily with supper. Refills: 0 Where to Get Your Medications These medications were sent to [address] [address] Hours: Retail 8 AM - 12 AM Daily / ED Service 10 AM - 12 AM Daily ?? cephALEXin 500 mg capsule ?? HYDROcodone-acetaminophen 10-325 mg Tablet ?? naloxone 4 mg/spray [place], Non-Aerosol ?? ondansetron 4 mg Tablet, Rapid Dissolve ?? Saccharomyces boulardii 250 mg Capsule Consultants: IP CONSULT TO GENERAL SURGERY IP CONSULT TO IV TEAM IP CONSULT TO GI IP CONSULT TO IV TEAM IP CONSULT TO HEMATOLOGY/ONCOLOGY Significant Diagnostic Studies This Admission: Results for orders placed during the hospital encounter of 05/24/21 CT CHEST ABDOMEN PELVIS W CONT Narrative CT CHEST, ABDOMEN AND PELVIS WITH IV CONTRAST WITH RECONSTRUCTED IMAGES DATE: 05/24/2021 5:03 PM HISTORY: Staging malignancy. COMPARISON: None. FINDINGS: CT of the chest, abdomen and pelvis is performed with intravenous and oral contrast. Imaging is performed from above the apices to below the symphysis pubis. Images are reconstructed in the axial, sagittal and coronal planes. Lung, liver, soft tissue and bone windows are reviewed. FINDINGS CT OF THE CHEST: There is a 1 cm nodule in the left lower lobe on slice 344 on series 304. Pleural thickening posteriorly in the left lung. No other nodules are seen in the lungs. There are small bilateral pleural effusions. Pleural thickening and enhancement on the right. The heart is mildly enlarged. There is no pericardial effusion. The thoracic aorta is tortuous but is otherwise unremarkable with no aneurysm or dissection. There is no mediastinal or hilar or axillary adenopathy in the chest. There are degenerative changes in the thoracic spine. Impression CT OF THE CHEST: 10 mm nodule in the left lower lobe. This is of uncertain etiology. Metastatic disease is not excluded. No other nodules in the lungs. Small bilateral pleural effusions. There is pleural thickening and/or nodularity noted in the right lower chest. Cardiomegaly. No other finding of the chest. There is no adenopathy. FINDINGS CT OF THE ABDOMEN AND PELVIS: There are multiple cysts in the liver. There is no evidence of hepatic metastatic disease. The hepatic and portal veins are patent. There is dilatation of the intrahepatic and extrahepatic bile ducts. The common bile duct measures up to 17 mm in diameter. There is abrupt obstruction of the common bile duct just above the ampulla due to mass obstructing the ampulla. This mass measures approximately 3.1 cm in AP dimension x 2.5 cm in craniocaudal dimension x 3.5 cm in transverse dimension. This mass produces obstruction of the common bile duct and the pancreatic duct which is also dilated throughout its course. The pancreas is otherwise unremarkable. The spleen, adrenal glands, and kidneys are unremarkable. There is no hydronephrosis. There is peripancreatic adenopathy identified with a node in the upper abdomen measuring 12 x 20 mm. No adenopathy is seen elsewhere in the abdomen or pelvis. The mass extends into the duodenum and narrows the duodenum. The mass is separate from the SMA and the SMV. There is a small amount of free fluid in the pelvis. The prostate is unremarkable. The bladder is unremarkable. There is no bowel obstruction or free air or other acute process. The appendix is normal. There are degenerative changes in the lumbar spine especially at L4-L5. There is no evidence of osseous metastatic disease. The bladder is unremarkable. The uterus is surgically absent. There is no bowel obstruction or free air or other acute process in the abdomen or pelvis. 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 This produces obstruction of the common bile duct and pancreatic duct which are both dilated. There may also be stenosis of the duodenum present. The mass does not appear to be adjacent to the SMA or SMV. There is no evidence of distant metastatic disease in the abdomen or pelvis. There are multiple cysts in the liver. The hepatic and portal veins are patent. DICTATION LOCATION: Location [address] [place] [address] The examination was performed with the adjustment of mA according to the patient size and/or the use of Iterative Reconstruction Technique. CASE REPORT ? Surgical Pathology Report Case: [id number] Authorizing Provider: Omar Gonzalez MD Collected: 05/25/2021 05:13 PM Ordering Location: [facility] Received: 05/26/2021 08:16 AM Pathologist: Sawyer Tovar MD Specimens: A) - Other, specify, ampullary mass B) - Other, specify, ampulla bx ? FINAL DIAGNOSIS ? Ampulla, mass , biopsy: - At least high-grade dysplasia/adenocarcinoma in situ (see microscopic description). ?? Ampulla, biopsy: - Invasive adenocarcinoma, moderately differentiated. ? GROSS DESCRIPTION ? The specimens are received in two containers, each labeled January . ?? Received in the first container additionally labeled ampullary mass biopsy is a 3.0 x 2.0 x 0.1 cm aggregate of friable red-cuello tissue core/core fragments, which are filtered into a mesh bag and entirely submitted in cassette A1. ?? Received in the second container additionally labeled ampulla biopsy are 3 pieces of pink-cuello tissue, ranging from 0.3 to 0.5 cm in greatest dimension. All are submitted in cassette B1. ?? [facility] ? MICROSCOPIC DESCRIPTION ? Received are slides labeled [id number], White,January M. ?? The submitted ampullary mass contain highly fragmented pieces of neoplastic glandular epithelium,with moderately increased N:C ratio, moderately abundant pink cytoplasm, round to focally pseudostratified nuclei, conspicuous single cell necrosis and scattered mitotic figures. The sampled tissue is superficial, with a minimal amount of attached stroma, precluding evaluation of invasion, but showfocal glandular architectural complexity, characterized by mzqk-tn-dbam glands and focal cribriformgrowth pattern, reflective of at least high-grade dysplasia/adenocarcinoma in situ. Couple cores ofbenign pancreatic tissue is also admixed. The submitted ampulla biopsy contains 3 pieces of ampullary/periampullary tissue, characterized by the presence of benign subepithelial glands, which are focally involved by invasive adenocarcinoma, characterized by irregular, angulated and focally abortive neoplastic glands and small nests within desmoplastic stroma. Lymphovascular and perineural invasion are not identified. The overlying mucosa focally appears to have a villous architecture, lined by focally architecturally complex neoplastic glandular epithelium, compatible with an associated adenomatous polyp, with high-grade dysplasia.The invasive carcinoma is diffusely positive for CK7, CK20 and CDX2 and negative for TTF-1. 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 ? OPERATIVE PROCEDURE ? 1: ULTRASOUND ENDOSCOPIC 2: CHOLANGIOPANCREATOGRAPHY RETROGRADE ENDOSCOPIC 3: ESOPHAGOGASTRODUODENOSCOPY ? CLINICAL INFORMATION ? A EUS/FNB pass 1-3 EUS/FNB pass 1-3 ? COMMENT ? Special stain and/or immunohistochemical results are interpreted with controls that demonstrate appropriate staining reactions. Note on use of immunocytochemistry reagents: This test was developed and its performance characteristics determined by [facility], Department of Laboratory Medicine.?? It has not been cleared or approved by the U.S. Food and Drug Administration. The FDA has determined that such clearance or approval is not necessary. The test is used for clinical purposes. It should not be regarded as investigational or for research.?? This laboratory is certifiedto perform high complexity testing. ?? Frozen section/operating room consultation, gross examination and dissection, and case sign out mayhave been performed in part or completely in the following laboratories: ?? [facility], [place] #[id number] [address] [place] [address] [facility], [place] #[id number] [address] [place] [address] [facility], [place] #[id number] [address] [place] [address] Labs from this Hospitalization Needing Follow Up: ?? None Discharge Lab Data: Lab Results Component Value Date/Time WBC 6.5 05/31/2021 10:44 AM HEMOGLOBIN 9.9 (L) 05/31/2021 10:44 AM HEMATOCRIT 31.9 (L) 05/31/2021 10:44 AM PLATELETS 371 (H) 05/31/2021 10:44 AM SODIUM 139 05/31/2021 10:44 AM CHLORIDE 101 05/31/2021 10:44 AM POTASSIUM 4.3 05/31/2021 10:44 AM CO2 27 05/31/2021 10:44 AM BUN 6 (L) 05/31/2021 10:44 AM CREATININE 0.73 05/31/2021 10:44 AM GLUCOSE 152 (H) 05/31/2021 10:44 AM AST 27 05/29/2021 05:29 AM ALT 50 (H) 05/29/2021 05:29 AM Discharge Exam: BP 111/66 (BP Location: Left arm, Patient Position (BP): Supine) Pulse 73 Temp 97.8 ??F (36.6 ??C) (Oral) Resp 16 Ht 5' 2 (1.575 m) Wt 68 kg (149 lb 14.4 oz) SpO2 97% BMI 27.42 kg/m?? Physical Exam: General appearance alert, cooperative, no distress, appears stated age Lungs clear to auscultation bilaterally Heart regular rate and rhythm, S1, S2 normal, no murmur Abdomen soft, non-tender. Bowel sounds normal. No masses, No organomegaly Extremities extremities normal, atraumatic, no cyanosis or edema Skin Skin color, texture, turgor normal. No rashes or lesions Hospital Course: Patient is a 65 y.o. female with COPD, HTN, HLD, BETTY not on cpap, who presents as a transfer from [facility] for abdominal pain, pancreatitis, ampullary mass and admitted for surgical/ whippleevaluation. Ampullary mass - concern for malignancy - biopsy done at OSH on 05/22, results of invasive, moderately differentiated ampullary adenocarcinoma; S/p EUS/ERCP 05/[address] Gonzalez (7 to 8 mm biliary sphincterotomy was performed. A 7 Latvian by 9 cm pancreatic stent with internal and external flange was placed exiting the pancreatic orifice into the duodenum with good visible drainage of clear fluid. Biopsies were taken from the surrounding tissue within the sphincterotomy site at the level of thebiliary orifice and sent for histologic review. Case d/w Dr. Ken who is still following pt, input appreciated, pt will fu as OP after chemo and acute infection resolves to then discuss surgery. CT CAP done, No obvious distant mets. Heme-onc consulted. At ne p will like to f/u onc at [facility] closer to home with Dr. Newell. Abd remains resolved. Dc home with norco 5/325 prn for 3 days. 1. Klebsiella bacteremia - temp 100.4 on 05/27 PM. Had temp 103 05/29 PM. Suspect related to stent placement. blood cultures / positive for klebsiella variicola. S/p cipro/flagyl due to PCN allergybut changed to cefepime 2 gm BID. After consultation with [facility] pharm, switched to IV Cefazolin 2g BIDper susceptibility panel. Discharged on Keflex 500mg TID to complete 14 days of therapy. 2. Elevated LFTs - likely related to malignancy/obstruction - initially trended down post-stent, then increased, now??normalized. 3. Acute pancreatitis - due to obstruction - lipase normal on repeat. IVFs x 1 liter 05/27. Encourage PO intake. 4. GERD - home PPI 5. Acute diarrhea - likely related to above. Improved. PRN laxatives held as diarrhea recurred??- Cdiff neg. 6. HTN - home HCTZ/quinapril - was started on lower than home doses inadvertently - increased to home doses (HCTZ 37.5 mg and quinapril 80 mg daily). BP??was??still high despite doses of hydralazine - added norvasc 2.5 mg daily and monitoring response. Will dc on home meds. 7. COPD - no exacerbation - pt doesn't want breo so dc'ed, continue prn meds 8. HLD - home statin 9. Hypokalemia/Hyponatremia - replete and monitor labs??as needed. Low sodium is mild, will plan tow/up if drops futher over 24-48 hrs. electrolyte derangements resolved. Nutritional status and in-house recommendations: Current Diet and/or Nutritional Supplementation ordered: DIET FAT CONTROL Discharge Condition: stable. Follow-up: Rosibel Muse MD in 5 days. Follow up with Dr. [facility] in 1 week. More than 50 minutes were spent in this discharge activity. Signed: Lanny Coleman MD 06/01/2021, 3:06 PM documented in this encounter Discharge Instructions * Discharge Instructions* Lanny Coleman MD - 06/01/2021 2:59 PM CDT Your discharging physician is Lanny Coleman MD and may be reached at [phone] for any questionsor concerns until you see your doctor. FOLLOW-UP Follow up with Rosibel Muse MD in 5 days. Prescriptions given? Yes Heart Patients: Weigh yourself everyday at the same time, with the same amount of clothing and after you have emptied your bladder. Keep a log of your daily weights and bring them with you to your physician appointments. Call your physician (*) if you have a weight gain of 3 pounds in one day (or 5pounds in 2 or more days) or (*) if you have increased shortness of breath or (*) if you have swelling in your feet, belly or legs. <<<Call 911 or go to the nearest emergency room if you have increased shortness of breath or chest pain or discomfort that is not relieved by nitroglycerin. ACTIVITY Your activity level is: increase activity as tolerated. DIET Your diet is: DIET FAT CONTROL documented in this encounter Medications at Time of Discharge Medication Sig Dispensed Refills Start Date End Date ALPRAZolam (XANAX) 1 mg tablet Take 1 mg by mouth nightly as needed for Anxiety. fluticasone propionate (FLONASE) 50 mcg/spray [place], Suspension nasal inhaler Administer 2 Sprays in [...] by inhalation 2 times daily as needed. cephALEXin (KEFLEX) 500 mg capsule Take 1 Capsule (500 mg) by mouth 4 times daily for 12 days. 48 Capsule 06/01/2021 06/13/2021 HYDROcodone-acetamino phen (NORCO) 10-325 mg TabletIndications:Caba creatic mass Take 1 Tablet by mouth 2 times daily as needed for Pain. Max Daily Amount: 2 Tablets 6 Tablet 06/01/2021 06/04/2021 ondansetron (ZOFRAN ODT) 4 mg Tablet, Rapid Dissolve Dissolve 1 tablet on top of tongue, then swallow with saliva every 8 hours as needed for Nausea/Vomiting. 9 Tablet 06/01/2021 06/04/2021 Saccharomyces boulardii (FLORASTOR) 250 mg Capsule Take 1 Capsule (250 mg) by mouth 2 times daily for 12 days. 24 Capsule 06/01/2021 06/13/2021 documented as of this encounter Progress Notes * Phil Ken MD - 06/01/2021 7:08 PM CDT Visited with patient for an extensive 30-minute conversation about recommendations on recent pancreatic/ampullary cancer diagnosis. Benefits of neoadjuvant chemotherapy versus upfront surgical management were explained in detail, and recommend neoadjuvant chemotherapy as an outpatient once current a cute inpatient needs are met. Will be available to place port at the request of medical oncology. The patient's daughter, Brittni, was on the phone during our conversation and all of their insightful questions were answered to their satisfaction. We will arrange for outpatient follow-up for January. * Lanny Coleman MD - 05/31/2021 10:53 AM CDT [facility] Adult Hospitalist Progress Note Admit Date: 05/24/2021 Date of Note: 05/31/2021, 10:53 AM LOS: 7 days Previous history of present illness and review of systems have been reviewed today as documented inthe H&P on 05/24/2021; medications, labs, studies, notes, orders and consults have been reviewed. I have reviewed the notes from yesterday. Subjective: Doing well this morning. Still no abd pain, nausea or vomiting. Anticipating consultation with Dr. Ken. Objective: BP 130/85 (BP Location: Left arm, Patient Position (BP): Supine) Pulse 79 Temp 98.1 ??F (36.7 ??C) (Oral) Resp 18 Ht 5' 2 (1.575 m) Wt 68 kg (149 lb 14.4 oz) SpO2 98% BMI 27.42 kg/m?? Temp (24hrs), Av.7 ??F (37.1 ??C), Min:98.1 ??F (36.7 ??C), Max:99.6 ??F (37.6 ??C) Small amount stool (05/27/21 2356) Exam: General: Alert, no distress. Heart: Regular rate and rhythm, S1, S2 normal, no murmur Lungs: Clear to auscultation bilaterally Abdomen: Soft, non-tender. Bowel sounds times four. Extremities: No clubbing, cyanosis or edema Skin: Skin color, texture, turgor normal. No rashes or lesions. Warm and dry. Head: Normocephalic, atraumatic Neck: Supple, symmetrical, trachea midline, no adenopathy. Neuro: CNII-XII intact. Normal strength, sensation and reflexes throughout. Data Base: Results for orders placed or performed during the hospital encounter of 05/24/21 PATHOLOGY Result Value Ref Range CASE REPORT Surgical Pathology Report Case: [id number] Authorizing Provider: Omar Gonzalez MD Collected: 05/25/2021 05:13 PM Ordering Location: [facility] GI Lab [facility] Received: 05/26/2021 08:16 AM Pathologist: Sawyer Tovar MD Specimens: A) - Other, specify, ampullary mass B) - Other, specify, ampulla bx FINAL DIAGNOSIS Ampulla, mass , biopsy: - At least high-grade dysplasia/adenocarcinoma in situ (see microscopic description). Ampulla, biopsy: - Invasive adenocarcinoma, moderately differentiated. GROSS DESCRIPTION The specimens are received in two containers, each labeled Krissy M White . Received in the first container additionally labeled ampullary mass biopsy is a 3.0 x 2.0 x 0.1 cm aggregate of friable red-cuello tissue core/core fragments, which are filtered into a mesh bag and entirely submitted in cassette A1. Received in the second container additionally labeled ampulla biopsy are 3 pieces of pink-cuello tissue, ranging from 0.3 to 0.5 cm in greatest dimension. All are submitted in cassette B1. [facility] MICROSCOPIC DESCRIPTION Received are slides labeled [id number], Krissy Oneal. The submitted ampullary mass contain highly fragmented pieces of neoplastic glandular epithelium,with moderately increased N:C ratio, moderately abundant pink cytoplasm, round to focally pseudostratified nuclei, conspicuous single cell necrosis and scattered mitotic figures. The sampled tissue is superficial, with a minimal amount of attached stroma, precluding evaluation of invasion, but showfocal glandular architectural complexity, characterized by dngu-eb-lokt glands and focal cribriformgrowth pattern, reflective of at least high-grade dysplasia/adenocarcinoma in situ. Couple cores ofbenign pancreatic tissue is also admixed. The submitted ampulla biopsy contains 3 pieces of ampullary/periampullary tissue, characterized by the presence of benign subepithelial glands, which are focally involved by invasive adenocarcinoma, characterized by irregular, angulated and focally abortive neoplastic glands and small nests within desmoplastic stroma. Lymphovascular and perineural invasion are not identified. The overlying mucosa focally appears to have a villous architecture, lined by focally architecturally complex neoplastic glandular epithelium, compatible with an associated adenomatous polyp, with high-grade dysplasia.The invasive carcinoma is diffusely positive for CK7, CK20 and CDX2 and negative for TTF-1. 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 OPERATIVE PROCEDURE 1: ULTRASOUND ENDOSCOPIC 2: CHOLANGIOPANCREATOGRAPHY RETROGRADE ENDOSCOPIC 3: ESOPHAGOGASTRODUODENOSCOPY CLINICAL INFORMATION A EUS/FNB pass 1-3 EUS/FNB pass 1-3 COMMENT Special stain and/or immunohistochemical results are interpreted with controls that demonstrate appropriate staining reactions. Note on use of immunocytochemistry reagents: This test was developed and its performance characteristics determined by [facility], Department of Laboratory Medicine. It has not [...] examination and dissection, and case sign out mayhave been performed in part or completely in the following laboratories: [facility], CLIA #[id number] [address] [place] [address] [facility], CLIA #[id number] [address] [place] [address] [facility] [facility], CLIA #[id number] [address] [place] [address] This report was created with the [employer] voice-activated dictation system. Inherent to this system is the possibility of syntax, grammar, punctuation and other errors that could impact the interpretation of the report. If there are interpretative questions about aspects of this report, please contact the performing pathologist. Assessment/Plan of Actively Managed Problems Principal Problem: Pancreatic mass Active Problems: Primary cancer of ampulla of Vater Acute diarrhea COPD (chronic obstructive pulmonary disease) Acute pancreatitis without necrosis or infection, unspecified Benign hypertension Jaundice, non- Abdominal pain Elevated LFTs Bacteremia due to Klebsiella pneumoniae 1. Ampullary mass - concern for malignancy - biopsy done at OSH on 05/22, results of invasive, moderately differentiated ampullary adenocarcinoma; S/p EUS/ERCP 05/[address] Gonzalez. Biopsies done, stent placed. Case d/w Dr. Ken who is still following pt, input appreciated - Whipple, timing TBD. CT CAP done, No obvious distant mets. Heme-onc consulted. At ne p will like to f/u onc at [facility] to home. No abd pain this morning. Continue norco 5/325 mg, added norco 10/325 mg prn and continue IV morphine, watch vitals closely. Continue pain meds before PO intake as needed as that is when she has the most discomfort. 2. Klebsiella bacteremia - temp 100.4 on 1016 PM. Suspect related to stent placement. blood cultures / positive for klebsiella variicola. S/p cipro/flagyl due to PCN allergy but changed to cefepime 2 gm BID. After consultation with ID pharm, switched to IV Cefazolin 2g BID per susceptibility panel and anticpate transition to Keflex 500mg TID for complete 14 days of therapy. Monitor labs, had temp 103 10/18 PM. 3. Elevated LFTs - likely related to malignancy/obstruction - initially trended down post-stent, then increased, now normalized. Monitor. 4. Acute pancreatitis - due to obstruction - lipase normal on repeat. IVFs x 1 liter 05/27. Encourage PO intake. 5. GERD - home PPI 6. Acute diarrhea - likely related to above. Monitor output. PRN laxatives held as diarrhea recurred - will order C diff to r/o infection the start loperamide prn. 7. HTN - home HCTZ/quinapril - was started on lower than home doses inadvertently - increased to home doses (HCTZ 37.5 mg and quinapril 80 mg daily). BP was still high despite doses of hydralazine - added norvasc 2.5 mg daily and monitoring response. Could be 2/2 anxiety/pain as well though patient denies being anxious. Stable 8. COPD - no exacerbation - pt doesn't want breo so dc'ed, continue prn meds 9. HLD - home statin 10. Hypokalemia/Hyponatrremia - replete and monitor labs as needed. Low sodium is mild, will plan to w/up if drops futher over 24-48 hrs. electrolyte derangements resolved. 11. Nutrition: Current Diet and/or Nutritional Supplementation ordered: DIET FAT CONTROL DVT Prophylaxis - Enoxaparin Marroquin catheter:absent Lines: Peripheral IV PT POC OT POC Activity Order: Present Activity: in bed (05/30/21 2100) Current Code Status -Full Code Plan discussed with patient, questions answered. Current Planned Disposition - TBD pending clinical course. Will remain in-house pending decision regarding surgery. Stable/Resolved Issues/Follow Up Needs 1. As above Lanny Coleman MD * Estefany Felix GN - 05/30/2021 1:51 PM CDT Midline intravenous catheter insertion attempted 1 times on January White Date: 05/30/2021 Time: 1350 Insertion was successful: Yes Description of insertion attempt: 20g 10cm Powerglide inserted in right upper cephalic vein. * Lanny Coleman MD - 05/30/2021 10:05 AM CDT [facility] Adult Hospitalist Progress Note Admit Date: 05/24/2021 Date of Note: 05/30/2021, 10:05 AM LOS: 6 days Previous history of present illness and review of systems have been reviewed today as documented inthe H&P on 05/24/2021; medications, labs, studies, notes, orders and consults have been reviewed. I have reviewed the notes from yesterday. Subjective: Still having fevers/chills at night, none this morning. No n/v. No dysuria or constipation. Last BMwas yesterday and normal. Has abdominal cramping/bloating which is chronic for past 5 months and constant, but no pain today. Pt has good po intake. Objective: BP 102/87 (BP Location: Left arm, Patient Position (BP): Supine) Pulse 89 Temp 100 ??F (37.8 ??C) (Oral) Resp 18 Ht 5' 2 (1.575 m) Wt 68 kg (149 lb 14.4 oz) SpO2 95% BMI 27.42 kg/m?? Temp (24hrs), Av.4 ??F (37.4 ??C), Min:97.7 ??F (36.5 ??C), Max:101.4 ??F (38.6 ??C) Small amount stool (05/27/21 2356) Exam: General: Alert, no distress. Heart: Regular rate and rhythm, S1, S2 normal, no murmur, click, rub or gallop. Lungs: Clear to auscultation bilaterally Abdomen: Soft, non-tender. Bowel sounds times four. No masses, No organomegaly. Extremities: No clubbing, cyanosis or edema Skin: Skin color, texture, turgor normal. No rashes or lesions. Warm and dry. Head: Normocephalic, atraumatic Neck: Supple, symmetrical, trachea midline, no adenopathy. Neuro: CNII-XII intact. Normal strength, sensation and reflexes throughout. Data Base: Results for orders placed or performed during the hospital encounter of 05/24/21 PATHOLOGY Result Value Ref Range CASE REPORT Surgical Pathology Report Case: [id number] Authorizing Provider: Omar Gonzalez MD Collected: 05/25/2021 05:13 PM Ordering Location: [facility] Received: 05/26/2021 08:16 AM Pathologist: Sawyer Tovar MD Specimens: A) - Other, specify, ampullary mass B) - Other, specify, ampulla bx FINAL DIAGNOSIS Ampulla, mass , biopsy: - At least high-grade dysplasia/adenocarcinoma in situ (see microscopic description). Ampulla, biopsy: - Invasive adenocarcinoma, moderately differentiated. GROSS DESCRIPTION The specimens are received in two containers, each labeled January White . Received in the first container additionally labeled ampullary mass biopsy is a 3.0 x 2.0 x 0.1 cm aggregate of friable red-cuello tissue core/core fragments, which are filtered into a mesh bag and entirely submitted in cassette A1. Received in the second container additionally labeled ampulla biopsy are 3 pieces of pink-cuello tissue, ranging from 0.3 to 0.5 cm in greatest dimension. All are submitted in cassette B1. [facility] MICROSCOPIC DESCRIPTION Received are slides labeled [id number], White,January. The submitted ampullary mass contain highly fragmented pieces of neoplastic glandular epithelium,with moderately increased N:C ratio, moderately abundant pink cytoplasm, round to focally pseudostratified nuclei, conspicuous single cell necrosis and scattered mitotic figures. The sampled tissue is superficial, with a minimal amount of attached stroma, precluding evaluation of invasion, but showfocal glandular architectural complexity, characterized by souw-ro-lkvg glands and focal cribriformgrowth pattern, reflective of at least high-grade dysplasia/adenocarcinoma in situ. Couple cores ofbenign pancreatic tissue is also admixed. The submitted ampulla biopsy contains 3 pieces of ampullary/periampullary tissue, characterized by the presence of benign subepithelial glands, which are focally involved by invasive adenocarcinoma, characterized by irregular, angulated and focally abortive neoplastic glands and small nests within desmoplastic stroma. Lymphovascular and perineural invasion are not identified. The overlying mucosa focally appears to have a villous architecture, lined by focally architecturally complex neoplastic glandular epithelium, compatible with an associated adenomatous polyp, with high-grade dysplasia.The invasive carcinoma is diffusely positive for CK7, CK20 and CDX2 and negative for TTF-1. 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 OPERATIVE PROCEDURE 1: ULTRASOUND ENDOSCOPIC 2: CHOLANGIOPANCREATOGRAPHY RETROGRADE ENDOSCOPIC 3: ESOPHAGOGASTRODUODENOSCOPY CLINICAL INFORMATION A EUS/FNB pass 1-3 EUS/FNB pass 1-3 COMMENT Special stain and/or immunohistochemical results are interpreted with controls that demonstrate appropriate staining reactions. Note on use of immunocytochemistry reagents: This test was developed and its performance characteristics determined by [facility], Department of Laboratory Medicine. It has not [...] examination and dissection, and case sign out mayhave been performed in part or completely in the following laboratories: [facility], CLIA #[id number] [address] [place] [address] [facility], CLIA #[id number] [address] [place] [address] [facility], CLIA #[id number] [address] [place] [address] This report was created with the [employer] voice-activated dictation system. Inherent to this system is the possibility of syntax, grammar, punctuation and other errors that could impact the interpretation of the report. If there are interpretative questions about aspects of this report, please contact the performing pathologist. Assessment/Plan of Actively Managed Problems 1. Principal Problem: 2. Pancreatic mass 3. Active Problems: 4. Primary cancer of ampulla of Vater 5. Acute diarrhea 6. COPD (chronic obstructive pulmonary disease) 7. Acute pancreatitis without necrosis or infection, unspecified 8. Benign hypertension 9. Jaundice, non- 10. Abdominal pain 11. Elevated LFTs 12. Bacteremia due to Klebsiella pneumoniae 13. 1. Ampullary mass - concern for malignancy - biopsy done at OSH on 05/22, results of invasive, moderately differentiated ampullary adenocarcinoma; S/p EUS/ERCP 05/[address] Gonzalez. Biopsies done, stent placed. Case d/w Dr. Ken who is still following pt, input appreciated - Whipple, timing TBD. CT CAP done, No obvious distant mets. Heme-onc consulted. At ne p [facility]. No abd pain this morning. Continue norco 5/325 mg, added norco 10/325 mg prn and continue IV morphine, watch vitals closely. Encourage pain meds before PO intake as that is when she has the most discomfort. 2. Klebsiella bacteremia - temp 100.4 on 05/27 PM. Suspect related to stent placement. blood cultures sent yesterday and are 4/4 positive for klebsiella pneumoniae. S/p cipro/flagyl overnight due to PCN allergy but changed to cefepime and watch closely for reaction. Monitor labs, had temp 103 05/29PM. 3. Elevated LFTs - likely related to malignancy/obstruction - initially trended down post-stent, then increased, now normalized. Monitor. 4. Acute pancreatitis - due to obstruction - lipase normal on repeat. IVFs x 1 liter 05/27. Encourage PO intake. 5. GERD - home PPI 6. Acute diarrhea - likely related to above. Monitor output. Now seems to be constipated. PRN laxatives ordered - notes she's having better BMs 7. HTN - home HCTZ/quinapril - was started on lower than home doses inadvertently - increased to home doses (HCTZ 37.5 mg and quinapril 80 mg daily). BP was still high despite doses of hydralazine - added norvasc 2.5 mg daily and monitoring response. Could be 2/2 anxiety/pain as well though patient denies being anxious. Overall improved, likely will need to increase norvasc some but will hold offdue to acute infection/bacteremia 8. COPD - no exacerbation - pt doesn't want breo so dc'ed, continue prn meds 9. HLD - home statin 10. Hypokalemia/Hyponatrremia - replete and monitor labs as needed. Low sodium is mild, will plan to w/up if drops futher over 24-48 hrs. Nutrition: Current Diet and/or Nutritional Supplementation ordered: DIET FAT CONTROL DVT Prophylaxis - Enoxaparin Marroquin catheter:absent Lines: Peripheral IV PT POC OT POC Activity Order: Present Activity: in bed (05/29/211907) Current Code Status -Full Code Plan discussed with patient, questions answered. Current Planned Disposition - TBD pending clinical course Stable/Resolved Issues/Follow Up Needs 1. As above Lanny Coleman MD * Esperanza Charles RN - 05/29/2021 7:17 PM CDT Pt A&Ox4. Pt without fall today. Pt had some c/o pain today. Gave pain meds per OCT. Pt waitingon path results. Daughter came to Bedside today. New IV was started today. Pt started on cefepime today. Bed locked and call light in reach. * Nancy Suárez MD - 05/29/2021 1:49 PM CDT [facility] Adult Progress Note Admit Date: 05/24/2021 Date of Note: 05/29/2021, 1:49 PM LOS: 5 days Plan Active Problems: 1. Ampullary mass - concern for malignancy - biopsy done at OSH on 05/22, results with villous adenoma but no confirmed malignancy; done via EGD so suspect EUS/ERCP biopsies will be more useful. Had EUS/ERCP 05/[address] Gonzalez. Biopsies done, stent placed. Dr. Ken has seen, input appreciated- plan is for Whipple, timing TBD pathology results. CT CAP done, No obvious distant mets per my read. Pt will f/u onc at [facility] to home. Still having pain - continue norco 5/325 mg, added norco 10/325 mg and continues IV morphine, watch vitals closely. Encourage pain meds before PO intakeas that is when she has the most discomfort. 2. Klebsiella bacteremia - temp 100.4 on 05/27 PM - blood cultures sent yesterday and are 4/4 positive for klebsiella pneumoniae. Started cipro/flagyl overnight due to PCN allergy but will change to cefepime and watch closely for reaction (low likelihood with 4th gen cephalosporin and PCN allergy).Likely related to stent placement. Monitor labs, had temp 103 overnight. Watch for evidence of sepsis 3. Elevated LFTs - likely related to malignancy/obstruction - initially trended down post-stent, then increased, now normalized. Monitor. 4. Acute pancreatitis - due to obstruction - lipase normal on repeat. IVFs x 1 liter 05/27. Encourage PO intake 5. GERD - home PPI 6. Acute diarrhea - likely related to above. Monitor output. Now seems to be constipated. PRN laxatives ordered - notes she's having better BMs 7. HTN - home HCTZ/quinapril - was started on lower than home doses inadvertently - increased to home doses (HCTZ 37.5 mg and quinapril 80 mg daily). BP was still high despite doses of hydralazine - added norvasc 2.5 mg daily and monitoring response. Could be 2/2 anxiety/pain as well though patient denies being anxious. Overall improved, likely will need to increase norvasc some but will hold offdue to acute infection/bacteremia 8. COPD - no exacerbation - pt doesn't want breo so dc'ed, continue prn meds 9. HLD - home statin 10. Hypokalemia - replete and monitor labs as needed Nutrition: Current Diet and/or Nutritional Supplementation ordered: DIET FAT CONTROL Quality/Safety/Core Measures/Disposition Planning: DVT Prophylaxis - Enoxaparin PT POC OT POC Activity Order: Present Activity: in bed (05/28/21 0345) Marroquin catheter:absent Current Code Status -Full Code Plan discussed with patient, questions answered. Current Planned Disposition - home pending improvement - now has klebsiella bacteremia - need to monitor on IV abx, f/u susceptibilities - not for 2-3 more days Subjective Previous history of present illness and review of systems have been reviewed today as documented inthe H&P on 05/24/2021; medications, labs, studies, notes, orders and consults have been reviewed. I have reviewed the notes from admission. Blood cultures positive overnight. Pt had high fever as well. Still not eating much due to pain - trying to take pain meds before hand but norco takes about 45 minutes to work. Eager to know path results Updated daughter Brittni at the bedside Objective BP (!) 105/92 (BP Location: Left arm, Patient Position (BP): Supine) Pulse 70 Temp 98.7 ??F (37.1 ??C) (Oral) Resp 16 Ht 5' 2 (1.575 m) Wt 68 kg (149 lb 14.4 oz) SpO2 96% BMI 27.42 kg/m?? Temp (24hrs), Av.7 ??F (37.6 ??C), Min:97.8 ??F (36.6 ??C), Max:103.1 ??F (39.5 ??C) Small amount stool (05/27/21 2356) Exam: Gen alert, cooperative, no distress, appears stated age Lungs clear to auscultation bilaterally, normal respiratory effort Heart regular rate and rhythm, S1, S2 normal, no murmurs Abdomen soft, tender epigastrum. Bowel sounds normal. Extremities extremities normal, atraumatic, no cyanosis or edema Neuro Alert and oriented, moves all extremities well Exam otherwise unchanged from 05/28 Data: I have reviewed all new labs and studies resulted and pertinent ones are noted below CBC: Recent Labs 05/27/2155605/28/2161705/29/21 0529 WBC 11.0* 7.1 8.8 HGB 10.8* 10.1* 9.8* HCT 34.2* 32.0* 31.3* PLT 415* 356* 295 MCV 83.4 86.3 85.3 BMP: Recent Labs 05/27/2155605/28/2161705/29/21 05 NA 136 139 132* K 3.3* 3.2* 3.3* CL 92* 95* 92* CO2 28 31* 28 ANIONGAP 16 13 12 CA 10.0 9.2 8.9 GLUCOSE 122* 111* 110* BUN 7* 6* 7* CREAT 0.90 0.75 0.91 OTHER LYTES: Recent Labs 05/29/21 0529 MG 1.8 AccuCheks: No results for input(s): GLUCPOC in the last 72 hours. LFTs: Recent Labs 05/27/2155605/28/2161705/29/21 05 TOTALPROTEIN 8.0 7.2 6.9 BILITOTAL 1.7* 1.1 0.9 ALKPHOS 573* 398* 314* ALBUMIN 4.2 3.8 3.3* ALT 128* 70* 50* AST 140* 34* 27 Coagulation: No results for input(s): PT, INR, APTT in the last 72 hours. Nancy Suárez MD [facility] Message via secure chat (7 AM to 7 PM) Virtual ticket system (7PM to 7AM) * Marisa Williamson PA - 05/28/2021 11:27 PM CDT [facility] CROSS COVER NOTE 05/28/21 11:27 PM Contacted for: fever 103F Vitals: 05/28/21 2313 BP: Pulse: Resp: Temp: (!) 103.1 ??F (39.5 ??C) SpO2: Intervention/Follow up/Discussion: patient admitted with ampullary mass - concern for malignancy - Had EUS/ERCP 05/[address] Gonzalez. Patient with fever last night, blood cultures currently still pending. UA negative. CXR atelectasis bilat. Patient denies cough, n/v/d, dysuria. With recent procedure will order empiric antibiotics until cultures return. Patient has documented allergy to penicillin, ordered IV cipro and flagyl. Acetaminophen po prn fever TRAVIS Mariee * Esperanza Charles RN - 05/28/2021 5:51 PM CDT Pt A&Ox4. Pt had some complaints of pain this shift, gave morphine and norco per MAR. Pt UA wascollected, and was negative. Pt also had a chest XR that is still pending. Pt did not need her hydralazine today d/t parameters. Pt was given simethicone today via MAR, and she stated that has helped. Tried to order an aqua K pad, but there were none available at central service. Bed is locked and call light is in reach. * Nancy Suárez MD - 05/28/2021 4:31 PM CDT [facility] Adult Progress Note Admit Date: 05/24/2021 Date of Note: 05/28/2021, 4:31 PM LOS: 4 days Plan Active Problems: 1. Ampullary mass - concern for malignancy - biopsy done at OSH on 05/22, results with villous adenoma but no confirmed malignancy; done via EGD so suspect EUS/ERCP biopsies will be more useful. Had EUS/ERCP 05/[address] Gonzalez. Biopsies done, stent placed. Dr. Ken has seen, input appreciated- plan is for [place], timing TBD pathology results. CT CAP done, No obvious distant mets per my read. Pt will f/u onc at [facility] closer to home. Still having pain - continue norco 5/325 mg, added norco 10/325 mg and continues IV morphine, watch vitals closely. Needing a bit more analgesia including IV morphine today - monitor. 2. Low grade fever - temp 100.4 overnight. Blood cultures sent and are pending. UA unremarkable. CXR done, personally reviewed - no obvious infiltrate, possible atelectasis. Low threshold to start IVzosyn if spikes more fevers given recent manipulation of biliary tract 3. Elevated LFTs - likely related to malignancy/obstruction - initially trended down post-stent, then increased, now better. Monitor. 4. Acute pancreatitis - due to obstruction - lipase normal on repeat. IVFs x 1 liter 05/27 5. GERD - home PPI 6. Acute diarrhea - likely related to above. Monitor output. Now seems to be constipated. PRN laxatives ordered 7. HTN - home HCTZ/quinapril - was started on lower than home doses inadvertently - increased to home doses (HCTZ 37.5 mg and quinapril 80 mg daily). BP still high despite doses of hydralazine - added norvasc 2.5 mg daily and monitoring response. Could be 2/2 anxiety/pain as well though patient denies being anxious 8. COPD - no exacerbation - pt doesn't want breo so dc'ed, continue prn meds 9. HLD - home statin 10. Hypokalemia - replete and monitor labs - K 3.3 today Nutrition: Current Diet and/or Nutritional Supplementation ordered: DIET FAT CONTROL Quality/Safety/Core Measures/Disposition Planning: DVT Prophylaxis - Enoxaparin PT POC OT POC Activity Order: Present Activity: in bed (10/17/21 4255) Marroquin catheter:absent Current Code Status -Full Code Plan discussed with patient, questions answered. Current Planned Disposition - home pending improvement in pain, stable LFTs, probably 1-2 more days Subjective Previous history of present illness and review of systems have been reviewed today as documented inthe H&P on 05/24/2021; medications, labs, studies, notes, orders and consults have been reviewed. I have reviewed the notes from admission. Doing ok. Still having pain, not able to eat much. Denies being anxious. Breathing ok. Updated daughter Brittni over the phone Objective BP 130/79 (BP Location: Left arm, Patient Position (BP): Sitting) Pulse (!) 101 Temp 98.8 ??F (37.1 ??C) (Oral) Resp 16 Ht 5' 2 (1.575 m) Wt 68 kg (149 lb 14.4 oz) SpO2 96% BMI 27.42 kg/m?? Temp (24hrs), Av.8 ??F (37.1 ??C), Min:97.8 ??F (36.6 ??C), Max:100.4 ??F (38 ??C) Small amount stool (05/27/21 7406) Exam: Gen alert, cooperative, no distress, appears stated age Lungs clear to auscultation bilaterally, normal respiratory effort Heart regular rate and rhythm, S1, S2 normal, no murmurs Abdomen soft, tender epigastrum. Bowel sounds normal. Extremities extremities normal, atraumatic, no cyanosis or edema Neuro Alert and oriented, moves all extremities well Exam otherwise unchanged from 05/27 Data: I have reviewed all new labs and studies resulted and pertinent ones are noted below CBC: Recent Labs 05/26/2145605/27/2157 05/28/21 0618 WBC 6.8 11.0* 7.1 HGB 9.8* 10.8* 10.1* HCT 30.4* 34.2* 32.0* PLT 379* 415* 356* MCV 84.4 83.4 86.3 BMP: Recent Labs 05/26/2145605/27/2157 05/28/2118 NA 140 136 139 K 3.3* 3.3* 3.2* CL 100 92* 95* CO2 27 28 31* ANIONGAP 13 16 13 CA 9.8 10.0 9.2 GLUCOSE 99 122* 111* BUN 6* 7* 6* CREAT 0.64 0.90 0.75 OTHER LYTES:No results for input(s): MG, PO4 in the last 72 hours. AccuCheks: No results for input(s): GLUCPOC in the last 72 hours. LFTs: Recent Labs 05/26/21 0457 05/27/21 0557 05/28/21 0618 TOTALPROTEIN 7.3 8.0 7.2 BILITOTAL 1.1 1.7* 1.1 ALKPHOS 374* 573* 398* ALBUMIN 4.0 4.2 3.8 ALT 74* 128* 70* AST 51* 140* 34* Coagulation: No results for input(s): PT, INR, APTT in the last 72 hours. Approximately 40 minutes were spent in the care of this patient today. Greater than 50% of time wasspent providing counseling and/or coordination of care [id number] with patient/family. We discussed plans for work up for temp 100.4 and pain control Nancy Suárez MD [facility] Message via secure chat (7 AM to 7 PM) Virtual ticket system (7PM to 7AM) * Esperanza Charles RN - 05/28/2021 3:01 PM CDT [facility] Protocol [facility] Approved by: [facility] - Medical Executive Committee Approval Date: 05/26/2020 ORDERS ARE ENTERED ???PER PROTOCOL?? Enter the protocol in the patient's electronic health record using smartphrase:.nursingtherapeuticordersprotocol For inpatients with complaints of minor discomfort Nursing Orders: o [id number] Ice Pack/Cold Therapy 20 minutes every 2 hours to affected area. o [id number] Warm Compress/Heat to affected area 20 minutes every 8 hours to affected area. Medication Orders: o hepcwfntme-watzckb-rbmgdfhugmzohi (CEPACOL) lozenge. 1 each by mouth every 2 hours PRN for sore throat. o Docusate sodium (COLACE) capsule 100 mg, Oral two times daily for constipation except for patients with diagnosed or rule-out bowel obstruction o calcium carbonate (TUMS) chewable tablet. 400mg, Oral every 4 hours PRN for heartburn. o simethicone (MYLICON) tablet. 160 mg Oral four times daily PRN for gas. o Neomycin-Bacitracin Zn-Polymyxin (NEOSPORIN) topical ointment. 1 packet, One Time to affected area. For minor scraps/abrasions. Use cover dressing as needed. o Polyvinyl alcohol-povidon(PF) (REFRESH CLASSIC) 1.4-0.6% ophthalmic solution. 1 drop to affected eye every 4 hours PRN for dry eye. o Sodium chloride (OCEAN) 0.65% nasal solution. 2 sprays to affected nostril every 15 minutes PRN for congestion. o If symptoms persist or worsen contact provider for further orders * Lisa Padilla MD - 05/28/2021 8:45 AM CDT GI Brief note Chart reviewed. Low grade fever to 100.4 overnight LFTs improved from yesterday. Recommend work up for infection, blood, urine and CXR. Path from procedure pending. We will sign off. Please call if we can be of additional assistance. Lisa Padilla MD, 05/28/2021 8:47 AM * Nancy Suárez MD - 05/27/2021 4:34 PM CDT [facility] Adult Progress Note Admit Date: 05/24/2021 Date of Note: 05/27/2021, 4:34 PM LOS: 3 days Plan Active Problems: 1. Ampullary mass - c/w malignancy - biopsy done at OSH on 05/22, results with villous adenoma but no confirmed malignancy; done via EGD so suspect EUS/ERCP biopsies will be more useful. Had EUS/ERCP05/[address] Gonzalez. Biopsies done, stent placed. Dr. Ken has seen, input appreciated - plan is for [facility], timing TBD pathology results. CT CAP done, No obvious distant mets per my read. Pt will f/u onc at [facility] closer to home. Still having pain - continue norco 5/325 mg, add norco 10/325 mg and continue IV morphine, watch vitals closely, still needing some IV morphine but overall seems better 2. Elevated LFTs - likely related to malignancy/obstruction - initially trended down post-stent butrising today including bilirubin - recheck in the AM, if still rising needs CT scan. If pt spikes fever needs blood cultures and broad spectrum abx (ie zosyn) given manipulation of biliary tract 3. Acute pancreatitis - due to obstruction - lipase normal today. IVFs x [address] Pascual. 4. GERD - home PPI 5. Acute diarrhea - likely related to above. Monitor output. Now seems to be constipated. PRN laxatives ordered 6. HTN - home HCTZ/quinapril - was started on lower than home doses inadvertently - increase to home doses (HCTZ 37.5 mg and quinapril 80 mg daily) and monitoring response. BP still high despite doses of hydralazine - add norvasc 2.5 mg daily and monitor response. Could be 2/2 anxiety/pain as well 7. COPD - no exacerbation - pt doesn't want breo so dc'ed, continue prn meds 8. HLD - home statin 9. Hypokalemia - replete and monitor labs Nutrition: Current Diet and/or Nutritional Supplementation ordered: DIET FAT CONTROL Quality/Safety/Core Measures/Disposition Planning: DVT Prophylaxis - Enoxaparin PT POC OT POC Activity Order: Present Activity: in bed (05/27/21 0127) Marroquin catheter:absent Current Code Status -Full Code Plan discussed with patient, questions answered. Current Planned Disposition - home pending improvement in pain, improved LFTs - probably 1-2 more days Subjective Previous history of present illness and review of systems have been reviewed today as documented inthe H&P on 05/24/2021; medications, labs, studies, notes, orders and consults have been reviewed. I have reviewed the notes from admission. Doing ok. LFTs up some. Low grade temp (100). Tolerating some PO but still decreased. No BM. Updated at bedside Objective BP (!) 152/88 (BP Location: Right arm) Pulse 75 Temp 98.1 ??F (36.7 ??C) (Oral) Resp 18 Ht 5' 2 (1.575 m) Wt 72.6 kg (160 lb) SpO2 96% BMI 29.26 kg/m?? Temp (24hrs), Av.7 ??F (37.1??C), Min:98.1 ??F (36.7 ??C), Max:100 ??F (37.8 ??C) Exam: Gen alert, cooperative, no distress, appears stated age Lungs clear to auscultation bilaterally, normal respiratory effort Heart regular rate and rhythm, S1, S2 normal, no murmurs Abdomen soft, tender epigastrum. Bowel sounds normal. Extremities extremities normal, atraumatic, no cyanosis or edema Neuro Alert and oriented, moves all extremities well Exam otherwise unchanged from 05/26 Data: I have reviewed all new labs and studies resulted and pertinent ones are noted below CBC: Recent Labs 05/25/2151805/26/2145605/27/21556 WBC 5.6 6.8 11.0* HGB 9.1* 9.8* 10.8* HCT 28.1* 30.4* 34.2* PLT 352* 379* 415* MCV 83.1 84.4 83.4 BMP: Recent Labs 05/25/2151805/26/2145605/27/21 05 NA 139 140 136 K 3.9 3.3* 3.3* CL 102 100 92* CO2 27 27 28 ANIONGAP 10 13 16 CA 9.6 9.8 10.0 GLUCOSE 159* 99 122* BUN 7* 6* 7* CREAT 0.69 0.64 0.90 OTHER LYTES:No results for input(s): MG, PO4 in the last 72 hours. AccuCheks: No results for input(s): GLUCPOC in the last 72 hours. LFTs: Recent Labs 05/25/2151805/26/2145605/27/21556 TOTALPROTEIN 6.9 7.3 8.0 BILITOTAL 2.4* 1.1 1.7* ALKPHOS 392* 374* 573* ALBUMIN 3.8 4.0 4.2 ALT 77* 74* 128* AST 85* 51* 140* Coagulation: No results for input(s): PT, INR, APTT in the last 72 hours. Approximately 35 minutes were spent in the care of this patient today. Greater than 50% of time wasspent providing counseling and/or coordination of care [id number] with patient/family. We discussed plans for monitoring labs, pain control, PRN laxatives Nancy Suárez MD [facility] Message via secure chat (7 AM to 7 PM) Virtual ticket system (7PM to 7AM) * Lisa Padilla MD - 05/27/2021 11:48 AM CDT INPATIENT PROGRESS NOTE Krissy Oneal 1955 05/27/2021 11:49 AM No acute events, still having some discomfort with eating. Had some hydrocodone which has helped Physical Exam: BP 116/62 (BP Location: Left arm, Patient Position (BP): Supine) Pulse 75 Temp 98.2 ??F (36.8 ??C) (Oral) Resp 18 Ht 5' 2 (1.575 m) Wt 72.6 kg (160 lb) SpO2 96% BMI 29.26 kg/m?? Body mass index is 29.26 kg/m??. Physical Exam: Pleasant, chronically ill appearing, nontoxic Unlabored respirations Abdomen is benign, she reports tenderness in the epigastrium. Labs/Imaging: Lab Results Component Value Date/Time WBC 11.0 (H) 05/27/2021 05:57 AM HEMOGLOBIN 10.8 (L) 05/27/2021 05:57 AM HEMATOCRIT 34.2 (L) 05/27/2021 05:57 AM PLATELETS 415 (H) 05/27/2021 05:57 AM MCV 83.4 05/27/2021 05:57 AM Lab Results Component Value Date/Time SODIUM 136 05/27/2021 05:57 AM POTASSIUM 3.3 (L) 05/27/2021 05:57 AM CHLORIDE 92 (L) 05/27/2021 05:57 AM CO2 28 05/27/2021 05:57 AM CALCIUM 10.0 05/27/2021 05:57 AM BUN 7 (L) 05/27/2021 05:57 AM CREATININE 0.90 05/27/2021 05:57 AM GLUCOSE 122 (H) 05/27/2021 05:57 AM TOTAL PROTEIN 8.0 05/27/2021 05:57 AM ALBUMIN 4.2 05/27/2021 05:57 AM BILIRUBIN TOTAL 1.7 (H) 05/27/2021 05:57 AM ALKALINE PHOSPHATASE 573 (H) 05/27/2021 05:57 AM AST 140 (H) 05/27/2021 05:57 AM ALT 128 (H) 05/27/2021 05:57 AM ANION GAP 16 05/27/2021 05:57 AM Impression/Plan 65 yo F with ampullary/pancreatic head mass s/p ERCP/EUS on 05/25, her LFTs improved yesterday but jumped today. Ddx includes pancreatitis, or irritation from instrumentation or related to malignancy. # Elevated LFTs # abdominal pain # pancreatic head mass # mass of the ampulla Recommend IV fluids today Clear liquid diet, advance to low fat as tolerated Lipase added If LFTs continue to rise then recommend CT scan tomorrow for evaluation If fever, get blood cultures and start broad spectrum abx. Lisa Padilla MD, 05/27/2021 12:58 PM Lisa Padilla MD [facility] Digestive Diseases * Esperanza Charles RN - 05/26/2021 7:27 PM CDT Pt A&Ox4. Pt independent. Pt had c/o of pain today, gave morphine and [place] per OCT. Pt stated the morphine helps more then the norco. Pt tried to eat with each meal, but sometimes it would causeher pain. Pt had an increase of BP this shift. Hydralazine was ordered and given. * Nancy Suárez MD - 05/26/2021 12:31 PM CDT [facility] Adult Progress Note Admit Date: 05/24/2021 Date of Note: 05/26/2021, 12:31 PM LOS: 2 days Plan Active Problems: 1. Ampullary mass - c/w malignancy - biopsy done at OSH on 05/22, results pending - GI has requested records, will look for the fax. Had EUS/ERCP 05/[address] Gonzalez. Biopsies done, stent placed. Dr. Ken has seen, input appreciated - plan is for [facility], timing TBD pathology results. CT CAP done, No obvious distant mets per my read. Pt will f/u onc at [facility] closer to home. Still having pain - continue norco 5/325 mg, add norco 10/325 mg and continue IV morphine, watch vitals closely, still needing some IV morphine 2. Acute pancreatitis - due to obstruction - trend labs, fluids, pain control. Advance diet slowly. 3. GERD - home PPI 4. Acute diarrhea - likely related to above. Monitor output 5. HTN - home HCTZ/quinapril - was started on lower than home doses inadvertently - increase to home doses (HCTZ 37.5 mg and quinapril 80 mg daily) and monitor response 6. COPD - no exacerbation - pt doesn't want breo so dc'ed, continue prn meds 7. HLD - home statin 8. Hypokalemia - replete today and monitor labs Nutrition: Current Diet and/or Nutritional Supplementation ordered: DIET FAT CONTROL Quality/Safety/Core Measures/Disposition Planning: DVT Prophylaxis - Enoxaparin PT POC OT POC Activity Order: Present Activity: in bed (05/25/21 190) Marroquin catheter:absent Current Code Status -Full Code Plan discussed with patient, questions answered. Current Planned Disposition - home pending improvement in pain - hopefully tomorrow? Subjective Previous history of present illness and review of systems have been reviewed today as documented inthe H&P on 05/24/2021; medications, labs, studies, notes, orders and consults have been reviewed. I have reviewed the notes from admission. Overall doing ok. Trying to decide what to eat for lunch and dinner. Didn't tolerate breakfast great - had omelet and uzbek muffin. Had a large BM last night. Pain persists but is relieved some with PRN analgesia Objective BP (!) 141/73 (BP Location: Left arm, Patient Position (BP): Supine) Pulse 96 Temp 98.1 ??F (36.7 ??C) Resp 16 Ht 5' 2 (1.575 m) Wt 72.6 kg (160 lb) SpO2 97% BMI 29.26 kg/m?? Temp (24hrs), Av.9 ??F (36.6 ??C), Min:97 ??F (36.1 ??C), Max:98.3 ??F (36.8 ??C) Exam: Gen alert, cooperative, no distress, appears stated age Lungs clear to auscultation bilaterally, normal respiratory effort Heart regular rate and rhythm, S1, S2 normal, no murmurs Abdomen soft, tender epigastrum. Bowel sounds normal. Extremities extremities normal, atraumatic, no cyanosis or edema Neuro Alert and oriented, moves all extremities well Data: I have reviewed all new labs and studies resulted and pertinent ones are noted below CBC: Recent Labs 05/25/2151805/26/21456 WBC 5.6 6.8 HGB 9.1* 9.8* HCT 28.1* 30.4* PLT 352* 379* MCV 83.1 84.4 BMP: Recent Labs 05/24/2154405/25/2151805/26/21456 NA 139 139 140 K 3.2* 3.9 3.3* CL 106 102 100 CO2 23 27 27 ANIONGAP 10 10 13 CA 8.9 9.6 9.8 GLUCOSE 110* 159* 99 BUN 3* 7* 6* CREAT 0.63 0.69 0.64 OTHER LYTES:No results for input(s): MG, PO4 in the last 72 hours. AccuCheks: No results for input(s): GLUCPOC in the last 72 hours. LFTs: Recent Labs 05/24/2154405/25/2151805/26/21456 TOTALPROTEIN 6.4* 6.9 7.3 BILITOTAL 2.5* 2.4* 1.1 ALKPHOS 342* 392* 374* ALBUMIN 3.5 3.8 4.0 ALT 65* 77* 74* AST 73* 85* 51* Coagulation: No results for input(s): PT, INR, APTT in the last 72 hours. Nancy Suárez MD [facility] Message via secure chat (7 AM to 7 PM) Virtual ticket system (7PM to 7AM) * Romina Wilson PA - 05/26/2021 11:21 AM CDT INPATIENT GI PROGRESS NOTE Krissy Oneal 1955 05/26/2021 11:21 AM Pt being seen for: s/p EUS/ERCP for suspected malign HPI Krissy is wanting to get the ball rolling on any treatment and surgery she needs. She is concerned about ongoing pain and potential depression should she have to wait and think. ROS: General: No fever. Sleeping fair. Pulm: No cough, SOB Cardiac: No CP GI: Some nausea. No emesis. Ongoing pain. +flatus and BM : No irritative voiding symptoms PE: BP (!) 141/73 (BP Location: Left arm, Patient Position (BP): Supine) Pulse 96 Temp 98.1 ??F (36.7 ??C) Resp 16 Ht 5' 2 (1.575 m) Wt 72.6 kg (160 lb) SpO2 97% BMI 29.26 kg/m?? Body mass index is 29.26 kg/m??. General: WD female. In NAD. Looks non toxic. Skin: No obvious rashes or visible lesions, WTT Affect: Pleasant. Appropriate. Alertness: Alert and oriented. Lungs: Normal effort. Clear Cardiovascular: S1S2. Regular Abdomen: Protuberant, +BS, soft, pain currently controlled and NTTP Extremities: No edema Intake/Output Summary (Last 24 hours) at 05/26/2021 1121 Last data filed at 05/25/2021 1829 Gross per 24 hour Intake 1200 ml Output -- Net 1200 ml BP (!) 141/73 (BP Location: Left arm, Patient Position (BP): Supine) Pulse 96 Temp 98.1 ??F (36.7 ??C) Resp 16 Ht 5' 2 (1.575 m) Wt 72.6 kg (160 lb) SpO2 97% BMI 29.26 kg/m?? Labs/Imaging: Lab Results Component Value Date/Time WBC 6.8 05/26/2021 04:57 AM HEMOGLOBIN 9.8 (L) 05/26/2021 04:57 AM HEMATOCRIT 30.4 (L) 05/26/2021 04:57 AM PLATELETS 379 (H) 05/26/2021 04:57 AM MCV 84.4 05/26/2021 04:57 AM Lab Results Component Value Date/Time SODIUM 140 05/26/2021 04:57 AM POTASSIUM 3.3 (L) 05/26/2021 04:57 AM CHLORIDE 100 05/26/2021 04:57 AM CO2 27 05/26/2021 04:57 AM CALCIUM 9.8 05/26/2021 04:57 AM BUN 6 (L) 05/26/2021 04:57 AM CREATININE 0.64 05/26/2021 04:57 AM GLUCOSE 99 05/26/2021 04:57 AM TOTAL PROTEIN 7.3 05/26/2021 04:57 AM ALBUMIN 4.0 05/26/2021 04:57 AM BILIRUBIN TOTAL 1.1 05/26/2021 04:57 AM ALKALINE PHOSPHATASE 374 (H) 05/26/2021 04:57 AM AST 51 (H) 05/26/2021 04:57 AM ALT 74 (H) 05/26/2021 04:57 AM ANION GAP 13 05/26/2021 04:57 AM Impression/Plan # S/P EUS with FNA x 4. FNA of a local LN not done due to vascular proximity/obstruction. # S/P ERCP with PD and CBD stenting with additional bx of the periampullary region. # Elevated LFT. Improving trend. # FEN. Diet as tolerated. Will attempt to get bx from EGD at [facility] for review as well. Will sign off, but will remain available for questions. Hopefully home soon once pain controlled. D/W Dr. Pascual and Dr. Jose Armando Wilson PA-C [facility] I can be reached thru secure chat or by calling the office at [phone] * Young Sims GN - 05/26/2021 7:48 AM CDT Patient is A&Ox4. Patient complained of epigastric pain/discomfort. PRN pain medication given per OCT. Warm blanket also given which patient stated relieved the pain. Patient ambulates independently. Patient had a large BM this shift, BM was soft but not diarrhea. Patients BP was elevated throghout shift. MD notified, 1x dose of hydralazine given per MAR. Day nurse notified of patients hypertension. No other complaints at this time. Call light and belongings within reach. * Nancy Suárez MD - 05/25/2021 8:46 PM CDT [facility] Adult Progress Note Admit Date: 05/24/2021 Date of Note: 05/25/2021, 8:46 PM LOS: 1 day Plan Active Problems: 1. Ampullary mass - c/w malignancy - biopsy done at OSH on 05/22, results pending. Had EUS/ERCP today with Dr. Gonzalez. Biopsies done, stent placed. Dr. Ken has seen, input appreciated. CT CAP done, results reviewed. No obvious distant mets per my read. Pt will f/u onc at [facility] closer to home. [place], oxycodone, morphine IV for pain, watch vitals closely 2. Acute pancreatitis - due to obstruction - trend labs, fluids, pain control. Tolerated diet yesterday before procedure today. 3. Acute diarrhea - likely related to above. Monitor output 4. HTN - home HCTZ/quinapril 5. COPD - no exacerbation - breo and prn meds 6. HLD - home statin Nutrition: Current Diet and/or Nutritional Supplementation ordered: DIET CLEAR LIQUID Quality/Safety/Core Measures/Disposition Planning: DVT Prophylaxis - Enoxaparin PT POC OT POC Activity Order: Present Activity: in bed (05/25/211905) Marroquin catheter:absent Current Code Status -Full Code Plan discussed with patient, questions answered. Current Planned Disposition - home pending improvement in labs, onc plans - likely a few days. Subjective Previous history of present illness and review of systems have been reviewed today as documented inthe H&P on 05/24/2021; medications, labs, studies, notes, orders and consults have been reviewed. I have reviewed the notes from admission. Doing fine today, still having a fair amount of abdominal pain. Seen this am before procedure. Family at bedside Objective BP (!) 152/86 (BP Location: Left arm, Patient Position (BP): Sitting) Pulse 87 Temp 98.3 ??F (36.8 ??C) (Oral) Resp 18 Ht 5' 2 (1.575 m) Wt 72.6 kg (160 lb) SpO2 94% BMI 29.26 kg/m?? Temp (24hrs), Av.8 ??F (36.6 ??C), Min:97 ??F (36.1 ??C), Max:98.3 ??F (36.8 ??C) Exam: Gen alert, cooperative, no distress, appears stated age Lungs clear to auscultation bilaterally, normal respiratory effort Heart regular rate and rhythm, S1, S2 normal, no murmurs Abdomen soft, tender diffusely. Bowel sounds normal. Extremities extremities normal, atraumatic, no cyanosis or edema Neuro Alert and oriented, moves all extremities well Data: I have reviewed all new labs and studies resulted and pertinent ones are noted below CBC: Recent Labs 05/25/21518 WBC 5.6 HGB 9.1* HCT 28.1* PLT 352* MCV 83.1 BMP: Recent Labs 05/24/2154405/25/21518 NA 139 139 K 3.2* 3.9 CL 106 102 CO2 23 27 ANIONGAP 10 10 CA 8.9 9.6 GLUCOSE 110* 159* BUN 3* 7* CREAT 0.63 0.69 OTHER LYTES:No results for input(s): MG, PO4 in the last 72 hours. AccuCheks: No results for input(s): GLUCPOC in the last 72 hours. LFTs: Recent Labs 05/24/2154405/25/21518 TOTALPROTEIN 6.4* 6.9 BILITOTAL 2.5* 2.4* ALKPHOS 342* 392* ALBUMIN 3.5 3.8 ALT 65* 77* AST 73* 85* Coagulation: No results for input(s): PT, INR, APTT in the last 72 hours. Nancy Suárez MD [facility] Hospitalist Message via secure chat (7 AM to 7 PM) Virtual ticket system (7PM to 7AM) * Hope Cardona RN - 05/25/2021 7:59 AM CDT Pt A&Ox4. Complains of abdominal pain this shift, PRN medications given as per OCT with verbalized relief. Pt NPO at midnight. Up independently in room. January did not voice any other concerns thisshift. Pt sleeping in between care. * Esperanza Charles RN - 05/24/2021 7:53 PM CDT Pt A&Ox4, Complaints of pain today, gave pain meds per MAR. Pt on IV fluids. IV consult got twoIVs on her, one infiltrated right after getting. Pt got a CT today, Gave pre meds prior to CT scan d/t her being allergic to the contrast. At 7pm pt stated she was itchy, informed the nursing education specialist hospitalist. Atarax was ordered and given. Pt also stated the old IV site looked like there was puss coming out. Ordered Neosporin per porticol. Pt signed consent for ERCP tomorrow. Covid test was performed. Pt on low fat diet, and will be NPO at [place]. * Esperanza Charles RN - 05/24/2021 7:36 PM CDT [facility] Adult Therapeutic Orders Protocol [facility] Approved by: [facility] - Medical Executive Committee Approval Date: 05/26/2020 ORDERS ARE ENTERED ???PER PROTOCOL?? Enter the protocol in the patient's electronic health record using smartphrase:.nursingtherapeuticordersprotocol For inpatients with complaints of minor discomfort Nursing Orders: o [id number] Ice Pack/Cold Therapy 20 minutes every 2 hours to affected area. o [id number] Warm Compress/Heat to affected area 20 minutes every 8 hours to affected area. Medication Orders: o [id number]-jmqbcby-wsqhtxptuxcjwd (CEPACOL) lozenge. 1 each by mouth every 2 hours PRN for sore throat. o Docusate sodium (COLACE) capsule 100 mg, Oral two times daily for constipation except for patients with diagnosed or rule-out bowel obstruction o calcium carbonate (TUMS) chewable tablet. 400mg, Oral every 4 hours PRN for heartburn. o simethicone (MYLICON) tablet. 160 mg Oral four times daily PRN for gas. o Neomycin-Bacitracin Zn-Polymyxin (NEOSPORIN) topical ointment. 1 packet, One Time to affected area. For minor scraps/abrasions. Use cover dressing as needed. o Polyvinyl alcohol-povidon(PF) (REFRESH CLASSIC) 1.4-0.6% ophthalmic solution. 1 drop to affected eye every 4 hours PRN for dry eye. o Sodium chloride (OCEAN) 0.65% nasal solution. 2 sprays to affected nostril every 15 minutes PRN for congestion. o If symptoms persist or worsen contact provider for further orders * Nancy Suárez MD - 05/24/2021 4:45 PM CDT [facility] Hospitalist Assuming care from Dr. Giordano Agree with his H&P. Transferred for evaluation by surgical oncology Has obstructed biliary tract, underwent biopsy at OSH Feeling fine now Comfortable, abdomen tender to palpation - continue PO and IV narcotics - dw Dr. Ken - ordered CT CAP (pancreas protocol) for staging with premeds - GI consulted for ERCP/EUS/EGD, input appreciated, npo at midnight - further pending above Nancy Suárez MD * Hope Cardona, JESSICA - 05/24/2021 3:44 AM CDT UNDRESS AND ASSESS FOR ALL ADMISSIONS AND TRANSFERS: Remove all existing dressings and assess all wounds upon admission (unless instructed by physician). Undress and Assess performed by: bedside coworker Fausto RN and bedside coworker Kat RN on admission to [facility] Oncology Matt Score: 1. Patient does not have skin breakdown. ??? If yes o Describe wound location and appearance: o LDA added for any open areas and for non-blanching pink/red or purple areas? N/A (please note, heels, ankles, knees, hips, sacrum, coccyx, ischium, gluteal, occiput, spine and all skin folds are high risk for skin breakdown) and consult wound care services 2. Was wound photographed: No 3. Is a specialty support surface utilized? No If yes, which one?: i.e. impaired mobility, bariatric, malnourished, existing pressure injury. 4. Is the patient a paraplegic/quadriplegic? No If so, if stable spine immediately place on specialty surface. If unstable spine or new spinal injury, consult physician (per facility process) and consult wound care services. 5. Is a biomedical engineering technologist in place?no If yes, remove device/brace/splint to check skin underneath, obtain provider order if necessary. 6. Does the patient have a wound VAC (negative pressure wound therapy)? No If yes, please consult wound care services and follow facility process. 7. Does the patient have an ostomy? No If yes, please consult wound care services. 8. Was the Skin Care Prevention: Pressure Injury Pathway initiated and appropriate interventions selected? (i.e. protective foams, turn patient q 2 h, elevate heels etc.) No 9. Was the Skin Care Treatment: Pressure Injury/Lower Extremity Ulcer Pathway initiated, and appropriate interventions selected? No(i.e. cleanse and apply silicone border dressing to skin tears, cleanse and apply antifungal to affected skin folds and apply soft linen or Interdry between folds etc.). Wound care consult was not initiated. [facility] Skin Care Injury Prevention and Treatment Protocol [facility] Approved by: [facility] - Medical Executive Committee Approval Date: 08/27/2019 ORDERS ARE ENTERED ???PER PROTOCOL?? Nursing Orders: o When a patient age 18 years or older has: ? a documented Matt score of 18 or less or a Matt sub score of 2 or 1, ? or a documented condition on the problem list of: diabetes, malnutrition or cachectic, paralysis,spinal cord disorder/injuries or muscle/neurological disease, THEN, the RN will order the Skin Care/Pressure Injury Prevention Pathway and initiate all appropriate interventions as per the Matt Risk Assessment Algorithm. o When a patient age 18 years or older has a wound requiring treatment, the RN and Wound Care Nurses may order the Skin Care/Pressure Ulcer/Lower Extremity Ulcer Treatment Pathway and use appropriatetreatments found in the Nursing Algorithm. o The Wound Care Nurse may also order treatments found in the Wound Care Algorithm. * Nuzhat Reynoso, ANP - 05/23/2021 4:06 PM CDT [facility] Intake Note ?? Oncologist Dr. Newell spoke to Dr. Rickie Charles (surgeon at [facility]) and he agreed to consult patient. ?? 05/23/21 2:51 PM Transferring Physician: Debra ROBLES [phone] Reason for Transfer: needs eval for whipple per Onc (Dr. Branham)/ he spoke to Dr. Charles Current facility and department: [facility] Requested Facility to be transferred: [facility] Specialist needed at accepting facility: Surgery/ [facility]/ Onc Significant Events/findings (per TC RN report): Pt has duodenal and pancreatic mass, wants transferfor possible wipple procedure. Pt admitted on 05/18/2021, new finding, no known cancer prior to this. Vitals: Temp 98.2 HR 79 BP 159/95 RR 20 O2 sat 97 on FiO2 ra ?? COVID-19 Screening Questionnaire Completed:y Does patient qualify for COVID-19 testing? n ?? Brief History as reported(provider): Pt has had 4 month history of epigastric pain, doing outpt workup but developed diarrhea/ dehydration, inpt work up revealed mass at ampula of pancreas and EGD showed duodenol mass (bx taken), Dr. Newell (onc) thought could benefit from whipple and contacted who states he would see in consult if pt transferred to [facility]. Pt still with epi pain radiatingto back after eating, this is her chronic pain. Pt with no prior hx of CA, hx of COPD, HTN, HLD, Depression Pertinent labs: WBC 4.1, Hgb 9.2, Hct 27 Lipase 13,000-> 3935 K 3.3 today, Mag 1.3, Creat 0.06, glucose stable CA 19-9 = 28 CA 125 = 5 ?? Treatments: Fluids/blood products: IVFs Medications: given imodium for diarrhea/ no without BM - supplementing K and Mag Imaging: CT with mass on pancreas MRCP with 4cm ampulla mass EGD with malignant appearing duodenal mass Other: ?? Pertinent Physical Exam findings: + flatus, epigastric discomfort ?? Additional information: na ?? Accepted Facility and Department: [facility] / onc ? Notified Dr. Rodriguez of the above accepted transfer. Lisa Reynoso MSN, AGNP-C documented in this encounter H&P Notes * Omar Gonzalez MD - 05/25/2021 4:06 PM CDT PRE PROCEDURE EVALUATION - ERCP DATE: 05/25/2021 HPI: This is a 65 y.o. female patient scheduled for EUS for- suggestion of malignant bile duct obstruction. For biopsy, staging, and decompression. Patient Active Problem List Diagnosis Date Noted ??? 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 Acute diarrhea 05/24/2021 ??? COPD (chronic obstructive pulmonary disease) 05/24/2021 ??? Acute pancreatitis without necrosis or infection, unspecified 05/24/2021 ??? Benign hypertension 05/24/2021 ??? Pancreatic mass ??? Jaundice, non- ??? Abdominal pain Past Medical History: Diagnosis Date ??? COPD (chronic obstructive pulmonary disease) ??? HTN (hypertension) ??? Hyperlipidemia Past Surgical History: Procedure Laterality Date ??? HX HEART CATHETERIZATION ??? HX HYSTERECTOMY ??? HX PARTIAL THYROIDECTOMY ??? HX SPINAL SURGERY ??? HX TUBAL LIGATION Medications Prior to Admission Medication Sig Dispense Refill Last Dose ??? ALPRAZolam (XANAX) 1 mg tablet Take 1 mg by mouth nightly as needed for Anxiety. ??? fluticasone propionate (FLONASE) 50 mcg/spray [place], Suspension nasal inhaler Administer 2 Sprays in each nostril daily. ??? hydroCHLOROthiazide 25 mg tablet Take 25 mg by mouth daily. ??? albuterol sulfate 90 mcg/Actuation inhaler Take 2 Puffs by inhalation every 4 hours as needed for Shortness of Breath. ??? simvastatin (ZOCOR) 20 mg tablet Take 20 mg by mouth daily with supper. ??? quinapriL (ACCUPRIL) 40 mg tablet Take 40 mg by mouth daily. ??? sertraline (ZOLOFT) 50 mg tablet Take 50 mg by mouth daily at bedtime. ??? budesonide-formoteroL (SYMBICORT) 160-4.5 mcg/actuation HFA Aerosol Inhaler Take 2 Puffs by inhalation 2 times daily. ??? omeprazole (PriLOSEC) 40 mg Capsule, Delayed Release(E.C.) Take 40 mg by mouth daily. Allergies Allergen Reactions ??? Iodinated Contrast Media Itching ??? Sulfa (Sulfonamide Antibiotics) Dizziness and Itching ??? Erythromycin Itching ??? Kiwi Itching ??? Macrolide Antibiotics Itching ??? Naproxen Sodium Itching ??? Penicillins Itching Social History Tobacco Use ??? Smoking status: Former Smoker Packs/day: 1.00 Years: 30.00 Pack years: 30.00 Quit date: 08/12/2003 Years since quittin.7 ??? Smokeless tobacco: Never Used Substance Use Topics ??? Alcohol use: Not on file Family History Problem Relation Name Age of Onset ??? Cancer Father ??? Kidney Disease Mother Head: atraumatic, Normocephalic, without obvious abnormality Lungs: clear to auscultation bilaterally, normal respiratory effort Airway: No apparent abnormality Heart: normal rate, regular rhythm, normal S1, S2, no murmurs, rubs, clicks or gallops Abdomen: Soft, non-tender. Bowel sounds normal. No masses, no organomegaly. Neurologic: Grossly normal ASA Classification: ASA 3 - Patient with moderate systemic disease with functional limitations Informed Consent: The patient was informed of the indications for the procedure, the risks/benefits and the alternatives, and agreed to proceed. In particular, the patient was informed of the risk of perforation/(1:1000), medication side effect, infection, a missed lesion, or incomplete examination. In the case of dilatation, the patient was informed of the risk of perforation (1 to 5%). There was nothing onhistory or physical examination precluding the procedure. IMPRESSION & PLAN: Indications for procedure as noted in HPI. Will proceed with the above mentioned procedure(s) as scheduled. Omar Gonzalez MD Advanced Endoscopy, EUS/ERCP * Maurice Giordano MD - 05/24/2021 3:58 AM CDT [facility] Adult Hospitalist Admission H & P Patient Name: Krissy Oneal Primary Care Doctor: No primary care provider on file. Date of Admission: 05/24/2021 Date of Service: 05/24/2021 Chief Complaint: Abdominal pain, pancreatitis, ampullary mass Admitted for: as transfer for surgical / whipple evaluation HPI: Patient is a 65 y.o. female with COPD, HTN, HLD, BETTY not on cpap, who presents with above complaint. Presented to [facility] in [facility] on 05/18 with abdominal pain and diarrhea for the past several months but acutely worsened over past 4d. EGD in 2018 with gastritis/duodenitis. Also recently completed tetracylcine/flagyl/bismuth for h pylori in mid April. Reports that diarrhea worsened after treatment, watery non bloody. Lipase [id number] with normal LFTs on admission. CT abdomen pelvis wo contrast 05/18: intra and extra hepatic biliary dilation and indeterminate 7mm left lower lobe pulmonary nodule MRCP showed 4.0 cm mass in ampulla with dilation of biliary tree and pancreatic duct, 5mm cystic lesion in the tail of the pancreas US abdomen: severely distended CBD up to 18mm EGD on Saturday: malignant appearing duodenal mass, biopsies taken and appears no stents were placed Dr Newell/onc consulted on patient and discussed case with Dr. Charles you agreed to consult upon arrival. Past Medical History: Past Medical History: Diagnosis Date ??? COPD (chronic obstructive pulmonary disease) ??? HTN (hypertension) ??? Hyperlipidemia Past Surgical History: Past Surgical History: Procedure Laterality Date ??? HX HEART CATHETERIZATION ??? HX HYSTERECTOMY ??? HX PARTIAL THYROIDECTOMY ??? HX SPINAL SURGERY ??? HX TUBAL LIGATION Current Medications: None Medication Allergies: Allergies Allergen Reactions ??? Iodinated Contrast Media Itching ??? Sulfa (Sulfonamide Antibiotics) Dizziness and Itching ??? Kiwi Itching ??? Macrolide Antibiotics Itching ??? Naproxen Sodium Itching ??? Penicillins Itching Family History: Family History Problem Relation Name Age of Onset ??? Cancer Father ??? Kidney Disease Mother Social History: Social History Tobacco Use ??? Smoking status: Former Smoker Packs/day: 1.00 Years: 30. Pack years: 30. Quit date: 08/12/2003 Years since quittin.7 ??? Smokeless tobacco: Never Used Substance Use Topics ??? Alcohol use: Not on file Review of Systems per above; additionally: Gen: No fever no chills Eyes: No visual changes Ears: No change in hearing Endocrine: No heat no cold intolerance Pulm: No cough no SOB Cardiac: No chest pain no orthopnea, no LE edema GI: No nausea, no vomiting, no constipation + diarrhea :+ hematuria, no urgency no frequency Musculoskeletal: No pain no weakness Neuro: No numbness no tingling Psych: No anxiety no depression Skin: No rashes no eruptions All other ROS reviewed and are negative Physical Exam: Patient Vitals for the past 8 hrs: BP Temp Temp src Pulse Resp SpO2 Height Weight 05/24/21 0357 (!) 160/86 97.9 ??F (36.6 ??C) Oral 89 14 100 % 5' 2 (1.575 m) 72.6 kg (160 lb) Gen: NAD, alert and oriented HEENT: normocephalic, mucous membranes moist, no cervical LAD, EOMI CV: no JVD, RRR, nl s1/s2, no murmurs, no precordial heave, extremities warm with normal cap refill, radial pulses 2+ and symmetric Resp: no increased work of breathing, air entry normal and symmetric, CTA bilaterally Abd: non distended, epigastric without guarding or rebound, no masses, no HSM, normoactive BS Extremities: no cyanosis, clubbing or LE edema Skin: no rashes Neuro: face symmetric, tongue midline, pharyngeal elevation symmetric, motor grossly intact Psych: well groomed, affect normal Data Base: I have reviewed the following labs upon admission as well as prior labs Lab: No results found for this visit on 05/24/21 (from the past 24 hour(s)). I have reviewed prior records in [facility] if available Assessment and Plan: 1. Ampullary mass c/w with primary malignancy --underwent EGD with biopsy at OSH on 05/22, no stents placed per records --Dr Charles called by onc prior to transfer and agreed to consult for possible whipple --patient plans to f/u with oncology at [facility] --nocro, oxycodone, morphine for pain 2. Acute pancreatitis without infection or necrosis due to ampullary mass --trend LFTs and lipase --IVF and pain control 3. Acute diarrhea: reports worsening after receiving ABX for H pylori in April --check GI pathogen pcr 4. HTN: cont. HCTZ, quinapril 5. COPD without exacerbation: --cont. breo and prn nebs 6. HLD cont. statin Medication reconciliation obtained from patient and OSH records Active Problems: Primary cancer of ampulla of Vater Acute diarrhea COPD (chronic obstructive pulmonary disease) Acute pancreatitis without necrosis or infection, unspecified Benign hypertension DVT Prophylaxis Enoxaparin Code status Full Code Disposition: pending hospital course Maurice Giordano MD For patients admitted by myself between 9pm-7am, please contact me via secure message with any questions or concerns Outside above hours, the attending has changed, contact attending listed in [facility] or locate patient on the hospitalist e-list and contact the current attending This note was dictated using [employer] software, minimal attempts were made to correct text errors documented in this encounter Procedure Notes * Omar Gonzalez MD - 05/25/2021 7:07 PM CDTAssociated Order(s): ERCP REPORT [facility] Endoscopy Patient Name: January Procedure Date: 05/25/2021 Date of : 1955 Attending MD: Omar Gonzalez MD Procedure: ERCP Indications: Malignant bile duct and pancreatic duct obstruction. For endoscopic decompression of the biliary ductal system. Providers: Omar Gonzalez MD Referring MD: Rosibel Muse MD, Phil Ken MD Medicines: General Anesthesia Complications: No immediate complications. Procedure: Informed consent was obtained for the procedure, including moderate sedation after risks were discussed. Based on the pre-procedure assessment, including review of the patient's medical history, medications, allergies, and review of systems, the patient was deemed to be an appropriate candidate for sedation. A timeout was performed. Continuous ECG monitoring, pulse oximetry, blood pressure monitoring, and direct observation were performed. The Endoscope was introduced through the mouth, and advanced to the duodenum and used to inject contrast into the bile duct and ventral pancreatic duct. The ERCP was accomplished without difficulty. The patient tolerated the procedure well. Estimated Blood Loss: Estimated blood loss: none. Findings: The curve cleaner film was normal. The esophagus was successfully intubated under direct vision. The scope was advanced to the major papilla in the descending duodenum without detailed examination of the pharynx, larynx and associated structures, and upper GI tract. The duodenal lumen showed significant deformity with a large amount of adenomatous appearing tissue. There was significant compression of the duodenum. The endoscope was advanced beyond the area of adenomatous stricture and shorten and used fluoroscopic landmarks to evaluate for the biliary orifice. The pancreatic duct was initially cannulated using a 0.035 inch wire. The wire was advanced to the upstream pancreatic duct and left in position. Small amount of contrast was injected and showed a prominent to dilated pancreatic duct with stricturing at the level of the ampulla. The wire was left in position. A second 0.035 inch wire was then used to cannulate the common bile duct. Catheter advanced over the guidewire. Contrast was injected from the distal bile duct and showed a 15 mm stricture with a markedly dilated upstream biliary ductal system. The left and right hepatic ducts were well visualized opacified with contrast injection and were dilated. The cystic duct appeared patent with contrast entering. The gallbladder was not completely opacified. The cystic duct takeoff. To be within the mid bile duct at least 20 to 25 mm above the level of the stricture. A 7 to 8 mm biliary sphincterotomy was performed. A 7 [place] by 9 cm pancreatic stent with internal and external flange was placed exiting the pancreatic orifice into the duodenum with good visible drainage of clear fluid. Biopsies were taken from the surrounding tissue within the sphincterotomy site at the level of the biliary orifice and sent for histologic review. A 10 mm x 4 cm fully covered self-expanding metallic Wallstent was placed within the distal bile duct across the stricture and suggested to be below the level of the cystic duct takeoff and showed brisk drainage of dark semiviscous bile. There was good visible drainage both on endoscopic and fluoroscopic evaluation. There was no bleeding at completion of the procedure. The patient tolerated the procedure well. Fluoroscopic images were personally reviewed and interpreted to guide the procedure. Impression: Marked abnormality within the duodenum with a significant amount of adenomatous luminal narrowing. Obliteration of the normal ampullary orifice. Identification of the pancreatic duct followed by the bile duct with placement of a pancreatic duct stent for decompression and a common bile duct stent for decompression. Good visible decompression at completion of procedure. Biopsies taken from the periampullary region near the biliary orifice post sphincterotomy and sent for histologic review. Recommendation: Post ERCP precautions. Follow clinically. Follow hepatic serology trends. Follow-up histology results. Return to hospital devi. Further management per primary medical team as well as medical and surgical oncology. Omar Gonzalez MD 05/25/2021 7:06:54 PM This report has been signed electronically. Number of Addenda: [phone] [facility]; [place] [address] * Omar Gonzalez MD - 05/25/2021 6:55 PM CDTAssociated Order(s): UPPER ENDOSCOPIC ULTRASOUND REPORT [facility] Endoscopy Patient Name: Krissy Oneal Procedure Date: 05/25/2021 Date of : 1955 Attending MD: Omar Gonzalez MD Procedure: Upper EUS FNA/FNB; EGD Indications: Biliary obstruction secondary to ampullary/pancreatic head mass. For EUS evaluation and biopsy Providers: Omar Gonzalez MD Referring MD: Rosibel Muse MD, Phil Ken MD Medicines: General Anesthesia Complications: No immediate complications. Procedure: Informed consent was obtained for the procedure, including moderate sedation after risks were discussed. Based on the pre-procedure assessment, including review of the patient's medical history, medications, allergies, and review of systems, the patient was deemed to be an appropriate candidate for sedation. A timeout was performed. Continuous ECG monitoring, pulse oximetry, blood pressure monitoring, and direct observation were performed. The Endoscope was introduced through the mouth, and advanced to the third part of duodenum. The Radial Scope was introduced through the mouth, and advanced to the third part of duodenum. The Linear Scope was introduced through the mouth, and advanced to the third part of duodenum. Estimated Blood Loss: Estimated blood loss: none. Findings: The esophageal mucosa was without erythema or ulceration. The gastric mucosa showed mild patchy erythema without discrete ulcerations or erosions. The pylorus was patent. The duodenal bulb was normal however entering the second portion of the duodenum there was significant compression of the duodenum with visible abnormal adenomatous appearing tissue. The endoscope was able to traverse into the deeper third portion of the duodenum with significant compression of the duodenum but the lesion was soft. The duodenum and the third and fourth portion were normal in appearance. The radial echoendoscope was passed to the esophagus stomach and duodenum. Brief evaluation of the esophageal and gastric wall were unremarkable. The pancreas was initially evaluated from the neck to the tail with endoscope in the gastric position. The pancreatic parenchyma showed mild to moderate heterogeneous changes but was otherwise unremarkable. The pancreatic duct was prominent at 5 mm with a slight erratic course suggesting a downstream obstruction. There was no identifiable celiac lymphadenopathy. The endoscope was advanced distally to the proximal duodenum. The gallbladder was visualized and prominent with some layering sludge but otherwise without identifiable stones or wall thickening. The hepatic parenchyma was scanned and showed no identifiable densities. The common bile duct was dilated up to 14 mm and showed a abrupt taper within the head of the pancreas at the level of a moderately hypoechoic density just above the level of the ampulla but within the pancreatic parenchyma and/duodenal wall. There was significant amount of soft tissue density within the duodenum as well but with less hypoechoic density suggesting more benign tissue. There was a notable peripancreatic lymph node within the periportal space estimated to be approximately 12 to 14 mm. The pancreatic duct was prominent to dilated as well with an abrupt taper within the area of moderate hypoechoic density at the level of the ampulla. The linear echoendoscope was passed to the esophagus stomach and duodenum. Similar exam findings were noticed on the radial exam. From the duodenum the area of most significant hypoechoic density at the level of the abrupt caliber change of the common bile duct and pancreatic duct was targeted. After evaluation for vascular structures a 20-gauge core FNA/FNB needle was used to perform biopsies. Total of 4 biopsies were taken and sent for histologic review. The peripancreatic lymph node appeared to be obstructed by a vascular structure for attempt at FNA biopsy. The portal vein and SMA did not appear to involve the soft tissue density within the head of the pancreas. Impression: Soft tissue density at the level of the ampulla with significant adenomatous appearing volume within the duodenal lumen itself. EUS evaluation suggested a more hypoechoic density at the level of the ampulla/duodenal wall with some extension into the common bile duct and pancreatic duct. EUS guided biopsy performed using a 20-gauge core needle. Results pending. 12 mm peripancreatic lymph node not amenable to EUS biopsy. Recommendation: Follow-up histology results. We will plan for biliary decompression through ERCP as well as further forcep biopsies during ERCP. Return to hospital devi after ERCP procedure. Further management per medical and surgical oncology. Omar Gonzalez MD 05/25/2021 6:55:49 PM This report has been signed electronically. Number of Addenda: [phone] . [facility]; [place] [address] documented in this encounter Consult Notes * Lula Modi MD - 05/30/2021 4:51 PM CDTAssociated Order(s): IP CONSULT TO HEMATOLOGY/ONCOLOGY Hematology/Oncology Consult Consult requested by Lanny Caraballo MD Patient Name: Krissy Oneal Primary Care Physician: Rosibel Muse MD Date of admission: 05/24/2021 Date of Service: 05/30/2021 Reason for consultation: ampulla Invasive adenocarcinoma, moderately differentiated. HPI: Patient is a 65 y.o. 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 She developed GERD symptoms this summer reported she has had 4 months of upper abd bloating and cramping discomfort that is usually exacerbated by food. She has had associated dyspepsia and mushy stools, often frequent after eating. She thought she was just having IBS issues and was self medicating at home. Saw a provider who checked a serologic helicobacter study, which was abnormal. Given her allergies- she was referred to local GI who prescribed her quad therapy which she completed. ?? Despite completing abx- she has had persistent abd pain and her diarrhea transitioned to watery diarrhea that looked like bile. She presented to [facility] where her initial serologies suggested pancreatitis. Lipase was over 13K, LFT with TB 0.6, ALP 252, AST 37 and ALT 29. A non contrast CT suggested biliary dilation. RUQ US suggested liver cysts and CBD of 1.8 cm. MRCP was done that showed a 4 cm ampulla of vater mass, double duct sign and a 5 mm cystic lesion in the pancreatic tail. ?? GI consult was done. EGD performed on Saturday showed a hiatal hernia and a malignant appearing duodenal mass. Looks like ERCP was going to be considered- but I cannot find any records this was done. ?? Past Medical History: Past Medical History: Diagnosis Date ??? COPD (chronic obstructive pulmonary disease) ??? HTN (hypertension) ??? Hyperlipidemia Past Surgical History: Past Surgical History: Procedure Laterality Date ??? HX ERCP N/A 05/25/2021 CHOLANGIOPANCREATOGRAPHY RETROGRADE ENDOSCOPIC performed by Omar Gonzalez MD at [facility] GI [facility] ??? HX HEART CATHETERIZATION ??? HX HYSTERECTOMY ??? HX PARTIAL THYROIDECTOMY ??? HX SPINAL SURGERY ??? HX TUBAL LIGATION ??? DE EDG US EXAM SURGICAL ALTER STOM DUODENUM/JEJUNUM N/A 05/25/2021 ULTRASOUND ENDOSCOPIC performed by Omar Gonzalez MD at [facility] GI [facility] ??? DE ESOPHAGOGASTRODUODENOSCOPY TRANSORAL DIAGNOSTIC N/A 05/25/2021 ESOPHAGOGASTRODUODENOSCOPY performed by Omar Gonzalez MD at [facility] Current Medications: Current Facility-Administered Medications Medication Dose Route Frequency Provider Last Rate Last Admin ??? [COMPLETED] potassium chloride (KLOR-CON) SR tablet 40 mEq 40 mEq Oral ONE time only Lanny Coleman MD 40 mEq at 05/30/21 1427 ??? potassium chloride 40 mEq in sodium chloride 0.9% 250 mL IVPB 40 mEq IV every 4 hours Lanny Coleman MD 76.25 mL/hr at 05/30/21 1446 40 mEq at 05/30/21 1446 ??? [DISCONTINUED] potassium CHLORIDE 40 mEq/100 mL IVPB 40 mEq 40 mEq IV every 4 hours Lanny Coleman MD ??? cefePIME (MAXIPIME) 2,000 mg in sodium chloride 0.9% 50 mL IVPB (MBP) 2,000 mg IV every 12 hours (2 times daily) Nancy Suárez MD Stopped at 05/30/21 0915 ??? docusate sodium (COLACE) capsule 100 mg 100 mg Oral BID PRN Nancy Suárez MD ??? sennosides (SENOKOT) tablet 8.6 mg 8.6 mg Oral daily PRN Nancy Suárez MD ??? polyethylene glycol (MIRALAX) packet 17 Gram 17 Gram Oral BID PRN Nancy Suárez MD ??? amLODIPine (NORVASC) tablet 2.5 mg 2.5 mg Oral daily Nancy Suárez MD 2.5 mg at 05/30/21 0839 ??? hydroCHLOROthiazide tablet 37.5 mg 37.5 mg Oral daily Nancy Suárez MD 37.5 mg at 05/30/21 0838 ??? quinapriL (ACCUPRIL) tablet 80 mg 80 mg Oral daily Nancy Suárez MD 80 mg at 05/30/21 0839 ??? HYDROcodone-acetaminophen (NORCO) 10-325 mg per tablet 1 Tablet 1 Tablet Oral every 4 hours PRNancy Clay MD ??? hydrALAZINE (APRESOLINE) tablet 10 mg 10 mg Oral every 6 hours Nancy Suárez MD 10 mg at 05/28/21 0005 ??? simethicone chewable tablet 40 mg 40 mg Oral every 6 hours PRN Kriss Contreras PA-C 40 mg at 05/29/21 0937 ??? ALPRAZolam (XANAX) tablet 1 mg 1 mg Oral at bedtime PRN Maurice Giordano MD 1 mg at 05/29/212032 ??? ipratropium-albuteroL (DUONEB) 0.5 mg-3 mg(2.5 mg base)/3 mL inhalation solution 3 mL 3 mL Inhalation resp, every 6 hours PRN Maurice Giordano MD ??? fluticasone propionate (FLONASE) 50 mcg/spray nasal inhaler 2 [place] 2 [place] Both Nostrils Maurice Ford MD 2 [place] at 05/30/21 0848 ??? sertraline (ZOLOFT) tablet 50 mg 50 mg Oral daily BEDTIME Mauirce Giordano MD 50 mg at 05/29/212028 ??? naloxone (NARCAN) 0.4 mg/mL injection 0.1 mg 0.1 mg IV see admin instructions Maurice Giordano MD ??? acetaminophen (TYLENOL) tablet 650 mg 650 mg Oral every 6 hours PRN Maurice Giordano MD 650 mg at12028 ??? HYDROcodone-acetaminophen (NORCO) 5-325 mg per tablet 1 Tablet 1 Tablet Oral every 4 hours PRN Maurice Giordano MD 1 Tablet at 05/29/21 191 ??? morphine 4 mg/mL injection 4 mg 4 mg IV every 4 hours PRN Maurice Giordano MD 4 mg at 05/29/21 1254 ??? ondansetron (ZOFRAN ODT) tablet 4 mg 4 mg Oral every 6 hours PRN Maurice Giordano MD ??? ondansetron (ZOFRAN) 4 mg/2 mL injection 4 mg 4 mg IV every 6 hours PRN Maurice Giordano MD ??? [Held by Provider] enoxaparin (LOVENOX) injection 40 mg 40 mg subCUT every 24 hours Maurice Giordano MD 40 mg at 05/24/21 0922 ??? atorvastatin (LIPITOR) tablet 10 mg 10 mg Oral daily BEDTIME Maurice Giordano MD 10 mg at 05/29/212028 ??? pantoprazole (PROTONIX) tablet 40 mg 40 mg Oral daily BEFORE breakfast Maurice Giordano MD 40 mg at 05/30/21 0605 ??? sodium chloride flush injection 5 mL 5 mL IV every 12 hours (2 times daily) Maurice Giordano MD 5mL at 05/30/21 0900 ??? sodium chloride flush injection 5 mL 5 mL IV see admin instructions Maurice Giordano MD ??? sodium chloride 0.9 % 250 mL flush bag 25 mL 25 mL IV see admin instructions Maurice Giordano MD ??? dextrose 5 % in water 250 mL flush bag 25 mL 25 mL IV see admin instructions Maurice Giordano MD Medication Allergies: Allergies Allergen Reactions ??? Iodinated Contrast Media Itching ??? Sulfa (Sulfonamide Antibiotics) Dizziness and Itching ??? Erythromycin Itching ??? Kiwi Itching ??? Macrolide Antibiotics Itching ??? Naproxen Sodium Itching ??? Penicillins Itching Family History: Family History Problem Relation Name Age of Onset ??? Cancer Father ??? Kidney Disease Mother Social History: Social History Tobacco Use ??? Smoking status: Former Smoker Packs/day: 1.00 Years: 30.00 Pack years: 30.00 Quit date: 08/12/2003 Years since quittin.8 ??? Smokeless tobacco: Never Used Substance Use Topics ??? Alcohol use: Not on file REVIEW OF SYSTEMS Constitutional: denies fever, sweats or rigors, denies fatigue, anorexia or weight loss Eyes: denies blurred vision or loss of vision, denies change in acuity, denies change in color of sclera Ear, Nose, Mouth & Throat: denies nasal discharge, epistaxis or sinus drainage, denies earache,hearing loss or discharge, denies sore throat, hoarseness or adenopathy, denies snoring, denies teeth or gum problems Cardiovascular: denies chest pain, denies palpitations or syncope, denies orthopnea, denies murmur Respiratory: denies shortness of breath, denies hemoptysis, denies wheezing, denies cough Endocrine: denies heat or cold intolerance, denies excessive sweating Hematologic: denies easy bruising, denies anemia Gastrointestinal: denies nausea or vomiting, denies heartburn, denies bowel changing habits, deniesmelena or bleeding Genitourinary: denies incontinence, denies hematuria, denies nocturia Musculoskeletal: denies muscle aches, denies arthritis, denies claudication, denies weakness Neurologic: denies headache, denies dizziness or vertigo, denies seizures, denies weakness Psychiatric: denies anxiety or depression, denies psychiatric condition Physical Exam: Patient Vitals for the past 8 hrs: BP Temp Temp src Pulse Resp SpO2 05/30/21 1430 122/73 99.6 ??F (37.6 ??C) Oral 83 18 98 % No intake or output data in the 24 hours ending 05/30/21 1651 PHYSICAL EXAM PAIN RATIN 1 2 3 4 5 6 7 8 9 10 ( BOLD ONLY 1 RATE) GENERAL: Oriented x 3, not in distress, ECOG PERFORMANCE STATUS 0 HEENT: PERRLA, EOMI, anticteric sclera, mouth and oropharynx clear. NECK: supple, no JVD. LUNGS: Clear to auscultation bilaterally, Normal Percussion. HEART: Regular rate and rhythm, S1-S2 normal, no murmurs, rubs, or gallops. ABDOMEN: Soft, no tenderness, distension or masses, bowel sounds normal, liver and spleen normal span. PELVIC: deferred RECTAL: deferred EXTREMITIES: No edema. NEUROLOGICAL: No focal defects LYMPH NODES: No cervical, supraclavicullar, axillary, or inguinal adenopathy. PSYCH: Affect appropriate, congnitively intact SKIN: Adequate turgor, no lesion present. DATA BASE: Data Review: Lab Results Component Value Date/Time WBC 8.8 05/29/2021 05:29 AM HEMOGLOBIN 9.8 (L) 05/29/2021 05:29 AM HEMATOCRIT 31.3 (L) 05/29/2021 05:29 AM PLATELETS 295 05/29/2021 05:29 AM MCV 85.3 05/29/2021 05:29 AM Lab Results Component Value Date/Time SODIUM 133 (L) 05/30/2021 10:59 AM POTASSIUM 2.8 (L) 05/30/2021 10:59 AM CHLORIDE 93 (L) 05/30/2021 10:59 AM CO2 28 05/30/2021 10:59 AM CALCIUM 9.0 05/30/2021 10:59 AM BUN 7 (L) 05/30/2021 10:59 AM CREATININE 0.72 05/30/2021 10:59 AM GLUCOSE 236 (H) 05/30/2021 10:59 AM TOTAL PROTEIN 6.9 05/29/2021 05:29 AM ALBUMIN 3.3 (L) 05/29/2021 05:29 AM BILIRUBIN TOTAL 0.9 05/29/2021 05:29 AM ALKALINE PHOSPHATASE 314 (H) 05/29/2021 05:29 AM AST 27 05/29/2021 05:29 AM ALT 50 (H) 05/29/2021 05:29 AM ANION GAP 12 05/30/2021 10:59 AM No results found for: CPK, CKMB, TROPONIN, TROPONIINT, TROPINTR Impression: ?? Principal Problem: ?? Pancreatic mass ?? Active Problems: ?? Primary cancer of ampulla of Vater ?? Acute diarrhea ?? COPD (chronic obstructive pulmonary disease) ?? Acute pancreatitis without necrosis or infection, unspecified ?? Benign hypertension ?? Jaundice, non- ?? Abdominal pain ?? Elevated LFTs ?? Bacteremia due to Klebsiella pneumoniae ? Other Medical Problems: Recommendations: 1. Adenoca ampulla, Had EUS/ERCP 05/[address] Gonzalez. Biopsies done, stent placed.plan for whipple with Dr Lopes and she plans to follow with Dr Newell in [facility].for chemotherapy recommendations Lula Modi MD Hematology/Oncology [facility] * Sushant Downing RN - 05/24/2021 2:19 PM CDTAssociated Order(s): IP CONSULT TO IV TEAM IV CONSULT: Request for IV consult. Reviewed electronic record and completed a vascular assessment. PIV startedand documented in EPIC. Long #20 placed utilizing ultrasound with no difficulty Bed in low position,HOB up 35 degrees,?? side rails up X2. Safety check completed. RN notified. ?? 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 I agree with the assessment and plan as outlined. My specific comments about this case are as follows 65 yo F with abdominal pain, new diagnosis of pancreatic mass and she is being considered for Whipple. We are consulted for tissue diagnosis and biliary decompression prior to surgery. Exam and imaging as below Agree with assessment and plan, will plan for EUS/ERCP tomorrow From our perspective may have low fat, low residue diet today and NPO after midnight. Lisa Padilla MD, 05/24/2021 3:59 PM Inpatient GI Consultation Note [facility] Gastroenterology Consultation Note Patient: Krissy Oneal / 65 y.o. / female : 1955 Date: 05/24/2021 CSN: [id number] Referring Physician:No ref. provider found PCP: Rosibel Muse MD Reason for Consult: Pancreatic mass History of Present Illness: Krissy Oneal is a 65 y.o. female with PMH of dyslipidemia, HTN, COPD, IBS. She has been hospitalized at [facility] and transferred to [facility] for pancreatic mass and consideration of Whipple. Krissy reported she has had 4 months of upper abd bloating and cramping discomfort that is usually exacerbated by food. She has had associated dyspepsia and mushy stools, often frequent after eating. She thought she was just having IBS issues and was self medicating at home. Saw a provider who checked a serologic helicobacter study, which was abnormal. Given her allergies- she was referred to local GI who prescribed her quad therapy which she completed. Despite completing abx- she has had persistent abd pain and her diarrhea transitioned to watery diarrhea that looked like bile. She presented to [facility] where her initial serologies suggested pancreatitis. Lipase was over 13K, LFT with TB 0.6, ALP 252, AST 37 and ALT 29. A non contrast CT suggested biliary dilation. RUQ US suggested liver cysts and CBD of 1.8 cm. MRCP was done that showed a 4 cm ampulla of vater mass, double duct sign and a 5 mm cystic lesion in the pancreatic tail. GI consult was done. EGD performed on Saturday showed a hiatal hernia and a malignant appearing duodenal mass. Looks like ERCP was going to be considered- but I cannot find any records this was done. Pt denied fevers. She has had some wt loss. No jaundice s/s. No pruritis. She has ongoing abd pain and c/o diarrhea. Review of Systems: General: See HPI Derm: No rash, pruritus, lumps/bumps, jaundice Eyes: No noted icterus ENT: No sore throat, hoarse voice, ear pain Pulm: No cough, SOB/PLASCENCIA Cardiac: No CP, palpitations GI: See HPI M/S: No myalgias/arthralgias Heme: No bleeding disorder, easy bruising, bleeding gums : No irritative voiding symptoms Physical Exam: BP (!) 150/82 (BP Location: Right arm, Patient Position (BP): Lying left side) Pulse 63 Temp 97.8 ??F (36.6 ??C) (Oral) Resp 16 Ht 5' 2 (1.575 m) Wt 72.6 kg (160 lb) SpO2 97% BMI 29.26kg/m?? No intake or output data in the 24 hours ending 05/24/21 1412 Body mass index is 29.26 kg/m??. General: WD/WN female. She looks non toxic and in NAD. Hearing grossly WNL. Skin: No obvious rashes or visible lesions, WTT Affect: Pleasant. Appropriate. Alertness: Alert and oriented. Eyes: Mild icterus. No injection. Lids Normal. No xantholesmas. Neck: Supple, no LAD Lungs: Normal respiratory effort. Clear to auscultation. No adventitious sounds. Cardiovascular: S1S2. Regular. No m/r/c/g Abdomen: Protuberant, +BS, soft, +TTP upper abd without peritoneal signs, no appreciable HSM, palpable masses or hernias Extremities: No cyanosis or edema Allergies Allergen Reactions ??? Iodinated Contrast Media Itching ??? Sulfa (Sulfonamide Antibiotics) Dizziness and Itching ??? Kiwi Itching ??? Macrolide Antibiotics Itching ??? Naproxen Sodium Itching ??? Penicillins Itching Medications Prior to Admission Medication Sig Dispense Refill Last Dose ??? ALPRAZolam (XANAX) 1 mg tablet Take 1 mg by mouth nightly as needed for Anxiety. ??? fluticasone propionate (FLONASE) 50 mcg/spray [place], Suspension nasal inhaler Administer 2 Sprays in each nostril daily. ??? hydroCHLOROthiazide 25 mg tablet Take 25 mg by mouth daily. ??? albuterol sulfate 90 mcg/Actuation inhaler Take 2 Puffs by inhalation every 4 hours as needed for Shortness of Breath. ??? simvastatin (ZOCOR) 20 mg tablet Take 20 mg by mouth daily with supper. ??? quinapriL (ACCUPRIL) 40 mg tablet Take 40 mg by mouth daily. ??? sertraline (ZOLOFT) 50 mg tablet Take 50 mg by mouth daily at bedtime. ??? budesonide-formoteroL (SYMBICORT) 160-4.5 mcg/actuation HFA Aerosol Inhaler Take 2 Puffs by inhalation 2 times daily. ??? omeprazole (PriLOSEC) 40 mg Capsule, Delayed Release(E.C.) Take 40 mg by mouth daily. Past Medical History: Diagnosis Date ??? COPD (chronic obstructive pulmonary disease) ??? HTN (hypertension) ??? Hyperlipidemia Past Surgical History: Procedure Laterality Date ??? HX HEART CATHETERIZATION ??? HX HYSTERECTOMY ??? HX PARTIAL THYROIDECTOMY ??? HX SPINAL SURGERY ??? HX TUBAL LIGATION Family History Problem Relation Name Age of Onset ??? Cancer Father ??? Kidney Disease Mother Social History Tobacco Use ??? Smoking status: Former Smoker Packs/day: 1.00 Years: 30.00 Pack years: 30.00 Quit date: 08/12/2003 Years since quittin.7 ??? Smokeless tobacco: Never Used Substance Use Topics ??? Alcohol use: Not on file Pertinent Labs: No results found for: WBC, MANUALWBC, HGB, HGBPOC, HCT, HCTPOC, PLT, MCV Lab Results Component Value Date/Time SODIUM 139 05/24/2021 05:45 AM POTASSIUM 3.2 (L) 05/24/2021 05:45 AM CHLORIDE 106 05/24/2021 05:45 AM CO2 23 05/24/2021 05:45 AM CALCIUM 8.9 05/24/2021 05:45 AM BUN 3 (L) 05/24/2021 05:45 AM CREATININE 0.63 05/24/2021 05:45 AM GLUCOSE 110 (H) 05/24/2021 05:45 AM TOTAL PROTEIN 6.4 (L) 05/24/2021 05:45 AM ALBUMIN 3.5 05/24/2021 05:45 AM BILIRUBIN TOTAL 2.5 (H) 05/24/2021 05:45 AM ALKALINE PHOSPHATASE 342 (H) 05/24/2021 05:45 AM AST 73 (H) 05/24/2021 05:45 AM ALT 65 (H) 05/24/2021 05:45 AM ANION GAP 10 05/24/2021 05:45 AM No results found for: INR, PT, PROTIMEPOC Pertinent Images: Images viewed under visage Impression/Plan: # Abnormal imaging with high suspicion of pancreatic malignancy. Her Ca 19-9 was WNL at OSH. # Pancreatitis. Lipase 13K to now 1453 # Jaundice/elevated LFT. She had double duct sign by MRCP. Related to above. --Check COVID (pt reported she is immunized) --Planning for EUS/ERCP tomorrow with Dr. Gonzalez. I discussed with her the procedure alternatives, benefits and risks including but not limited to anesthesia complications, perforation requiring surgical repair, bleeding, infection, worsening pancreatitis. She understood, and agreed to proceed. I have discussed this case with Dr. Pascula and Dr. Gonzalez. Thank you very much for this consultation. I have spent a total of 75 min of time on the hospital floor reviewing pt records and speaking withpt and medical staff and 50% of time counseling the patient in regard to her current clinical situation and coordinating care. Romina Wilson PA-C [facility] Gastroenter[facility] I can be reached thru secure chat or by calling the office at [phone] CC: No ref. provider found , Rosibel Muse MD * Sushant Downing RN - 05/24/2021 10:48 AM CDTAssociated Order(s): IP CONSULT TO IV TEAM IV CONSULT: Request for IV consult. Reviewed electronic record and completed a vascular assessment. PIV startedand documented in EPIC. Long #20 placed with no difficulty utilizing ultrasound. Bed in low position,HOB up 35 degrees,?? side rails up X2. Safety check completed. RN notified. ?? * Phil Ken MD - 05/24/2021 10:28 AM CDTAssociated Order(s): IP CONSULT TO GENERAL SURGERY Images from the original note were not included. IP CONSULT TO GENERAL SURGERY Consult performed by: Phil Ken MD Consult ordered by: Maurice Giordano MD HISTORY OF PRESENT ILLNESS Krissy Oneal is a 65 y.o. female admitted with abdominal pain on 05/24/2021 Subjective HPI Krissy Oneal is a 65 y.o. [...] SYSTEMS Review of Systems Constitutional: Positive for activity change, appetite change, fatigue and unexpected weight change. Negative for fever. HENT: Negative for trouble swallowing. Respiratory: Negative for chest tightness and shortness of breath. Cardiovascular: Negative for chest pain and palpitations. Gastrointestinal: Positive for abdominal pain, diarrhea, nausea and vomiting. Negative for abdominal distention, blood in stool and constipation. Endocrine: Negative for cold intolerance and heat intolerance. Genitourinary: Negative for difficulty urinating. Musculoskeletal: Negative for back pain. Neurological: Negative for weakness. Hematological: Does not bruise/bleed easily. HISTORY REVIEW I have reviewed and updated Active Problems: Primary cancer of ampulla of Vater Acute diarrhea COPD (chronic obstructive pulmonary disease) Acute pancreatitis without necrosis or infection, unspecified Benign hypertension , Past Medical History: Diagnosis Date ??? COPD (chronic obstructive pulmonary disease) ??? HTN (hypertension) ??? Hyperlipidemia , Past Surgical History: Procedure Laterality Date ??? HX HEART CATHETERIZATION ??? HX HYSTERECTOMY ??? HX PARTIAL THYROIDECTOMY ??? HX SPINAL SURGERY ??? HX TUBAL LIGATION , Family History Problem Relation Name Age of Onset ??? Cancer Father ??? Kidney Disease Mother , Social History Socioeconomic History ??? Marital status: Not on file Spouse name: Not on file ??? Number of children: Not on file ??? Years of education: Not on file ??? Highest education level: Not on file Occupational History ??? Not on file Tobacco Use ??? Smoking status: Former Smoker Packs/day: 1.00 Years: 30.00 Pack years: 30.00 Quit date: 08/12/2003 Years since quittin.7 ??? Smokeless tobacco: Never Used Substance and Sexual Activity ??? Alcohol use: Not on file ??? Drug use: Not on file ??? Sexual activity: Not on file Other Topics Concern ??? Not on file Social History Narrative ??? Not on file Social Determinants of Health Financial Resource Strain: ??? Difficulty of Paying Living Expenses: Food Insecurity: ??? Worried About Running Out of Food in the Last Year: ??? Ran Out of Food in the Last Year: Transportation Needs: ??? Lack of Transportation (Medical): ??? Lack of Transportation (Non-Medical): Physical Activity: ??? Days of Exercise per Week: ??? Minutes of Exercise per Session: Stress: ??? Feeling of Stress : Social Connections: ??? Frequency of Communication with Friends and Family: ??? Frequency of Social Gatherings with Friends and Family: ??? Attends Yarsani Services: ??? Active Member of Clubs or Organizations: ??? Attends Club or Organization Meetings: ??? Marital Status: Intimate Partner Violence: ??? Fear of Current or Ex-Partner: ??? Emotionally Abused: ??? Physically Abused: ??? Sexually Abused: , Allergies Allergen Reactions ??? Iodinated Contrast Media Itching ??? Sulfa (Sulfonamide Antibiotics) Dizziness and Itching ??? Kiwi Itching ??? Macrolide Antibiotics Itching ??? Naproxen Sodium Itching ??? Penicillins Itching , Medications Prior to Admission Medication Sig Dispense Refill Last Dose ??? ALPRAZolam (XANAX) 1 mg tablet Take 1 mg by mouth nightly as needed for Anxiety. ??? fluticasone propionate (FLONASE) 50 mcg/spray [place], Suspension nasal inhaler Administer 2 Sprays in each nostril daily. ??? hydroCHLOROthiazide 25 mg tablet Take 25 mg by mouth daily. ??? albuterol sulfate 90 mcg/Actuation inhaler Take 2 Puffs by inhalation every 4 hours as needed for Shortness of Breath. ??? simvastatin (ZOCOR) 20 mg tablet Take 20 mg by mouth daily with supper. ??? quinapriL (ACCUPRIL) 40 mg tablet Take 40 mg by mouth daily. ??? sertraline (ZOLOFT) 50 mg tablet Take 50 mg by mouth daily at bedtime. ??? budesonide-formoteroL (SYMBICORT) 160-4.5 mcg/actuation HFA Aerosol Inhaler Take 2 Puffs by inhalation 2 times daily. ??? omeprazole (PriLOSEC) 40 mg Capsule, Delayed Release(E.C.) Take 40 mg by mouth daily. Objective PHYSICAL EXAM Last Vitals: BP (!) 172/92 (BP Location: Right arm, Patient Position (BP): Sitting) Pulse 71 Temp 97.7 ??F (36.5 ??C) (Oral) Resp 16 Ht 5' 2 (1.575 m) Wt 72.6 kg (160 lb) SpO2 97% BMI 29.26 kg/m?? Physical Exam Constitutional: General: She is not in acute distress. Appearance: Normal appearance. She is obese. She is not ill-appearing, toxic- appearing or diaphoretic. HENT: Head: Normocephalic and atraumatic. Eyes: General: No scleral icterus. Cardiovascular: Rate and Rhythm: Normal rate. Pulmonary: Effort: Pulmonary effort is normal. Abdominal: General: Abdomen is flat. Bowel sounds are normal. There is no distension. Palpations: Abdomen is soft. There is no mass. Tenderness: There is abdominal tenderness. There is no guarding or rebound. Hernia: No hernia is present. Skin: General: Skin is warm and dry. Capillary Refill: Capillary refill takes less than 2 seconds. Coloration: Skin is not jaundiced. Neurological: General: No focal deficit present. Mental Status: She is alert and oriented to person, place, and time. Mental status is at baseline. Psychiatric: Mood and Affect: Mood normal. Behavior: Behavior normal. Thought Content: Thought content normal. Judgment: Judgment normal. DIAGNOSTICS I have reviewed CBC: No results found for: WBC, RBC, HGB, HCT, PLT, BMP: Lab Results Component Value Date/Time GLUCOSE 110 (H) 05/24/2021 05:45 AM NA 139 05/24/2021 05:45 AM K 3.2 (L) 05/24/2021 05:45 AM CL 106 05/24/2021 05:45 AM CO2 23 05/24/2021 05:45 AM BUN 3 (L) 05/24/2021 05:45 AM CREAT 0.63 05/24/2021 05:45 AM CA 8.9 05/24/2021 05:45 AM Radiology studies: Outside imaging has been reviewed and is described as family history of present illness. Assessment ASSESSMENT/PLAN: Active Problems: Primary cancer of ampulla of Vater Acute diarrhea COPD (chronic obstructive pulmonary disease) Acute pancreatitis without necrosis or infection, unspecified Benign hypertension Mrs. Oneal and I had a lengthy conversation about the nature of periampullary masses, specifically the etiology, presentation, work-up, treatment strategies, and expectations of treatment. In her situation, there is a high likelihood that this represents a malignancy, and certainly is responsible for her symptomology as reported in the history of present illness. Based on current imaging, from a surgical standpoint, I do feel that this is resectable. I do request a few additional items in termsof preoperative work-up, however. I would like to receive the results of the recent biopsy, and I request that patient undergo EUS/ERCP with biliopancreatic decompression and repeat biopsy in case the prior endoscopic biopsy is nonconfirmatory, and I would like to see the patient's liver function returned to normal. CA 19-9 after biliary decompression would also be recommended for completion of staging. If malignancy is identified, mounting literature recommends neoadjuvant chemotherapy with several benefits and I choose this is my preference prior to pancreaticoduodenectomy. If biopsies are nonconfirmatory for malignancy, we will proceed with pancreaticoduodenectomy, most likely after the patient has been discharged from this acute inpatient admission. Thank for the opportunity to provide this consultation to Krissy, I will continue to follow the patient's progress. in kind regards, Pihl Ken MD, FACS, [facility] Surgical Oncology and Endocrine Surgery [facility] documented in this encounter OR Notes * Ana-OP - Merna Hutchins RN - 05/25/2021 12:45 PM CDT Patient/Family discussion included an explanation that: Standard practice for endoscopists at [facility] includes use of an oral bite block to facilitate upper endoscopy and to prevent you from biting onto the scope or yourself during the procedure.This bite block is placed by a [facility] procedure room nurse/motorcycle service technician prior to the procedure. Pressure that you place on this bite block during the procedure may cause damage to teeth, fillings, and/or dental appliances that may be due to pre-existing dental disease or the age/wear of your dental appliance or structural weakness of teeth or a dental appliance; that may be a known or unknown condition. Should you experience new dental symptoms or a dental complication, if you choose, an effort will be made to facilitate a same day or prompt dental evaluation by [facility] Dental Medicine. documented in this encounter Miscellaneous Notes * Care Plan - Ernestine Pascal GN - 06/01/2021 4:44 PM CDT Krissy Oneal will be discharged via wheelchair to home. Krissy Oneal is accompanied by spouse and will be transported via private vehicle. Problem: Discharge Planning Goal: Identify discharge needs upon admission and through discharge Description: Outcome: Progressing * Care Plan - Teresa Cardona GN - 06/01/2021 5:15 AM CDT Pt a&o x4 this shift, up independently to bathroom. No bm this shift. IV abx given. Enteric isolation maintained. * Care Plan - Esperanza Charles RN - 05/31/2021 4:34 PM CDT Pt did not complain of pain this shift. Pt potassium raised to 4.3 today. VSS. Pt independent. Pt c/o diarrhea today. Informed Dr. Coleman and a cdiff sample was ordered.Waiting on the pt to have a BM. Pt also mentioned that when she was at [facility] she was given imodium and it caused her not have any bowel movements at all, so she does not want that to happen. Problem: Gastrointestinal Goal: Achieve optimal gastrointestinal function by discharge or maintain baseline function Outcome: Variance Problem: Volume/Electrolyte Status Goal: Absence of/Reduce Fall Risk r/t Volume/Electrolyte Status Description: Patient is a fall risk due to volume/electrolyte status (i.e. - electrolyte imbalances, nausea/vomiting, NPO, IV fluids). Potential Interventions: 1. Ensure blood sugar is checked at appropriate intervals and insulin dosing is given as ordered 2. Provide patient with an emesis basin or vomit bag (may need more than one at bedside) 3. Assess length of IV and/or O2 tubing if applicable 4. Ensure IV fluids are given as ordered for NPO patients to maintain hydration 5. Administer medications for nausea and vomiting as needed Outcome: Variance * Care Plan - Teresa Cardona GN - 05/31/2021 2:21 AM CDT Pt a&o x4 this shift, up independently to bathroom. Afebrile. Potassium IVPB running 30 mL/h per shift report d/t reaction earlier. Second bag hung when finished. Pt denied pain. Meds given per oct. * Care Plan - Yamileth Suarez RN - 05/30/2021 5:06 PM CDT Patient up independently in room this shift. A&Ox4. No complaints of pain this shift. Family visited at bedside. VSS. Call light in reach and pt resting quietly. Problem: Volume/Electrolyte Status Goal: Absence of/Reduce Fall Risk r/t Volume/Electrolyte Status Description: Patient is a fall risk due to volume/electrolyte status (i.e. - electrolyte imbalances, nausea/vomiting, NPO, IV fluids). Potential Interventions: 1. Ensure blood sugar is checked at appropriate intervals and insulin dosing is given as ordered 2. Provide patient with an emesis basin or vomit bag (may need more than one at bedside) 3. Assess length of IV and/or O2 tubing if applicable 4. Ensure IV fluids are given as ordered for NPO patients to maintain hydration 5. Administer medications for nausea and vomiting as needed Outcome: Variance * Care Plan - Teresa Cardona GN - 05/30/2021 2:48 AM CDT Pt a&o x4 this shift. Denied pain. Pt febrile, notified and ice packs placed under armpits, fan on, tylenol given. Pt unsteady on feet after receiving xanax. Pt BP dropped, notified, asymptomatic, no new orders. Meds given per oct. * Care Plan - Felipa Lorenzo RN - 05/29/2021 6:56 AM CDT Pt denied pain this shift, pt complained of having abdominal discomfort and fullness. Pt had a fever of 103.1, notified and tylenol administered per OCT. CIPRO and flagyl started per MD order. Ptsvitals changed to Q4 vitals per order. Pt up independent to the bathroom. Pt rested quietly with call light and belongings in reach. Problem: Nutrition/Endocrine Goal: Achieve optimal nutrition and fluid status to meet metabolic needs throughout hospitalization Outcome: Variance * Care Plan - Young Sims GN - 05/28/2021 6:37 AM CDT Patient is A&Ox3. Ambulates independently. Complained of abdominal pain, PRN [place] given per OCT. Patient had 100.4 temp, PRN tylenol given per OCT. No BM overnight. Patient is resting in bed at this time. Call light and belongings within reach. Problem: Pain, Potential/Actual Goal: Verbalizes/displays acceptable comfort level or baseline comfort level Description: Outcome: Variance * Care Plan - Paige Lord RN - 05/27/2021 6:39 PM CDT Patient alert and oriented this shift. Patient up ad sandoval in the room. Patient was chilled today however temp was 98. Patient reports waking up sweaty and changed her gown. No acute events. * Care Plan - Meghan Acosta LMSW - 05/26/2021 12:23 PM CDT requested EDG bx results done at [facility] earlier this week. VIELKA spoke with Maggy with Medical Records at [facility], results will be faxed to oncology floor ([phone]). RN aware. Results received and placed in patient paper lite chart. Case management continues to follow and assist in discharge planning as needed. Meghan Acosta LMSW, 05/26/2021 12:25 PM [id number] Day 1 - Current ([facility]: Adult and Obstetrics) Patient, family, or healthcare designee is participating in individual care plan process Outcome: Met Problem: Discharge Planning Goal: Identify discharge needs upon admission and through discharge Description: Outcome: Progressing * Care Plan - Shania Lucas GN - 05/25/2021 6:25 PM CDT Patient complained of moderate pain, relieved by [place]. Patient was up independently, visited with family. Patient NPO for ERCP. Report received by GI lab nurse for patient - Endoscopic US with fine needle aspiration, ERCP, sphincterotomy complete, 2 stents placed (one in bile duct and one in pancreatic duct). Patient in room, VSS. Problem: Pain, Potential/Actual Goal: Verbalizes/displays acceptable comfort level or baseline comfort level Description: Outcome: Variance * Care Plan - Meghan Acosta LMSW - 05/24/2021 11:26 AM CDT Care Management Initial Assessment Initial Discharge Planning Assessment completed with patient at bedside. Discussed Care Management's role and Discharge planning. Discharge Plan: home pending hospital course Patient Discharge Planning Goal: return home Patient will potentially discharge to a SNF/NH? No Care Management visited with: patient via in person. Prior to admission, patient resides at: own home. Prior to admission, living arrangements: spouse. Pt and spouse reside in a one story home with 10-12 [address], pt reports indep with steps. Prior to admission, patient's functional level:independent; uses N/A for ADLs; needs assistance with iADLs: N/A Prior to admission, the patient has the following DME? Yes cane and other , pt states she has a machine that helps when she has an asthma attack but cannot recall the name or DME provider Services in the home: none with n/a company Receives hemodialysis? No Emergency contact(s): Extended Emergency Contact Information Primary Emergency Contact: Brittni Taylor Mobile Relation: Daughter Secondary Emergency Contact: Joya Colón Mobile Relation: Sister Insurance coverage verified: Payor: / Patient states she has [facility] Medicare (also listed in transfer paperwork); she states her family is coming to visit tomorrow and will bring a copy of her card Prescription coverage: yes Preferred Pharmacy verified: [facility] Employment Status: employed Has VA Benefits: no PCP verified as: Rosibel Muse MD Patient has not had a stay at an acute care hospital in the last 30 days. Recent Falls?: Last Known Fall: No falls Patient has a [employer] account: no Patient has a smart device: Yes Patient's mobile number verified: Yes. Patient's number: Telephone Information: Patient is able to receive text messages: Yes Patient has access to the internet: Yes Plan for transportation at discharge: Family available for transport Comments: Pt reports no illicit drug use, no alcohol consumption, and no history of inpatient psychiatric treatment. Care Management contact information provided. Care Management will continue to follow and assist asneeded. Patient states that they have received the second COVID19 vaccine from [employer]. Patientstates the date of the last vaccine was in Sep. Meghan Acosta LMSW, 05/24/2021 11:26 AM [id number] Day 1 - Current ([facility]: Adult and Obstetrics) Patient, family, or healthcare designee is participating in individual care plan process Outcome: Met Problem: Discharge Planning Goal: Identify discharge needs upon admission and through discharge Description: Outcome: Progressing * Care Plan - Hope Cardona RN - 05/24/2021 5:26 AM CDT Images from the original note were not included. [facility] Adult IV Flush Protocol [facility] Approved by: [facility] - Medical Executive Committee Approval Date: 12/29/2020 ORDERS ARE ENTERED ???PER PROTOCOL?? Enter the protocol in the patient's electronic health record using smartphrase: .adultivflushprotocol NURSING ORDERS Ok to utilize existing central venous access (example: Implanted Port, PICC) unless otherwise directed by provider. (Exclusion: Hemodialysis line may not be accessed without order from provider) Local Anesthetic for IV Initiation Panel (18 and over) ORDER SET Local Anesthetic for use to initiate IV (orders to discontinue 24 hours from initiation) ? Lidocaine 1% 0.3mL intradermal ONE TIME to numb area of IV catheter insertion or port access PRN ? Lidocaine 4% (L.M.X.4) applied topically ONE TIME 15 minutes prior to IV catheter insertion PRN Peripheral IV (Peripheral and Midline catheter) Flush Panel (18 yr and over) ORDER SET ? Line care and maintenance o Sodium chloride 0.9% (normal saline) flush 5 mL every 12 hours when locked o Sodium chloride 0.9% (normal saline) flush 5 mL PRN before and after medication administration orto verify line patency ? Carrier fluid (select most appropriate fluid for capability with medications) o Sodium chloride 0.9% (normal saline) 250 mL carrier bag. - Infuse 25 mL at a rate of IVPB administration to flush as needed to complete the IVPB and/or may keep rate at KVO (10mL/hr) to minimize frequent line interruption. o Dextrose 5% (D5W) 250 mL carrier bag - Infuse 25 mL at a rate of IVPB administration to flush as needed to complete the IVPB and/or may keep rate at KVO (10mL/hr) to minimize frequent line interruption. Central Lines (CVC, Sheath/Introducer, 3rd lumen of Hemodialysis catheter) Flush Panel (18 yr and over) ORDER SET ? Line care and maintenance o Sodium chloride 0.9% (normal saline) flush 10mL per lumen every 12 hours when locked. o Sodium chloride 0.9% (normal saline) flush 10mL per lumen before and after medication administration or to verify line patency. ? Carrier fluid (select most appropriate fluid for capability with medications) o Sodium chloride 0.9% (normal saline) 250 mL carrier bag. - Infuse 25 mL at a rate of IVPB administration to flush as needed to complete the IVPB and/or may keep rate at KVO (10mL/hr) to minimize frequent line interruption. o Dextrose 5% (D5W) 250 mL carrier bag: carrier bag - Infuse 25 mL at a rate of IVPB administration to flush as needed to complete the IVPB and/or may keep rate at KVO (10mL/hr) to minimize frequent line interruption. Central Lines (PICC, Implanted Port) Flush Panel (18 yr and over) ORDER SET ? Line care and maintenance o Sodium chloride 0.9% (normal saline) flush 10mL per lumen AND Heparin 10 units/mL 5mL per lumen every 12 hours after normal saline flush when locked. o Sodium chloride 0.9% (normal saline) flush 10mL per lumen before and after medication administration or to verify line patency AND Heparin 10 units/mL 5 mL per lumen following normal saline flush to lock. ? Carrier fluid (select most appropriate fluid for capability with medications) o Sodium chloride 0.9% (normal saline) 250 mL carrier bag. - Infuse 25 mL at a rate of IVPB administration to flush as needed to complete the IVPB and/or may keep rate at KVO (10mL/hr) to minimize frequent line interruption. o Dextrose 5% (D5W) 250 mL carrier bag: carrier bag - Infuse 25 mL at a rate of IVPB administration to flush as needed to complete the IVPB and/or may keep rate at KVO (10mL/hr) to minimize frequent line interruption. Transducers- Hemodynamic Pressure Monitoring ??? Arterial Catheter, Pulmonary Artery Catheter, Central Venous Pressure, Intra-Aortic Balloon Pump: o Sodium chloride 0.9% (normal saline) to infuse continuously at 3mL/hr via pressure bag at 300 mmHg ??? Intra-Aortic Balloon Pump: o Heparin 2 unit/mL in normal saline to infuse continuously at 3 mL/hr via pressure bag at 300mmHg For Occluded Central Line (Adult ONCOLOGY only) ?? Alteplase (CATHFLO) Instill 2mg to affected lumen(s) to dwell in occluded lumen one time. documented in this encounter Plan of Treatment Upcoming Encounters Date Type Department Care Team (Late st Contact Info) Description 08/25/2024 2:00 PM TELECOM SPECIALIST Office Visit [facility] Oncology and Hematology - [place] [address] [facility] [address] [place] [address] Royal Newell MD [address] [facility] [address] [place] [address] documented as of this encounter Procedures Procedure Name Priority Date/Time Associated Diagnosis Comments C. DIFFICILE DETECTION Routine 5:18 PM CDT CBC WITH DIFFERENTIAL Routine 05/31/2021 10:44 AM CDT BASIC METABOLIC PANEL Routine 05/31/2021 10:44 AM CDT BASIC METABOLIC PANEL Routine 05/30/2021 10:59 AM CDT CBC WITH DIFFERENTIAL Routine 05/29/2021 5:29 AM CDT MAGNESIUM LEVEL Routine 05/29/2021 5:29 AM CDT COMPREHENSIVE METABOLIC PANEL Routine 5:29 AM CDT XR CHEST PA AND LATERAL 2 VW Routine 3:10 PM CDT BLOOD CULTURE PATHOGEN PCR PANEL Routine 05/28/2021 1:45 PM CDT BLOOD CULTURE Routine 05/28/2021 1:45 PM CDT BLOOD CULTURE Routine 05/28/2021 1:44 PM CDT URINALYSIS W/REFLEX MICROSCOPIC Routine 05/28/2021 11:33 AM CDT CBC WITH DIFFERENTIAL Routine 05/28/2021 6:18 AM CDT COMPREHENSIVE METABOLIC PANEL Routine 6:18 AM CDT CBC WITH DIFFERENTIAL Routine 05/27/2021 5:57 AM CDT LIPASE Routine 05/27/2021 5:57 AM CDT COMPREHENSIVE METABOLIC PANEL Routine 5:57 AM CDT CBC WITH DIFFERENTIAL Routine 05/26/2021 4:57 AM CDT COMPREHENSIVE METABOLIC PANEL Routine 4:57 AM CDT ERCP REPORT 05/25/2021 7:08 PM CDT UPPER ENDOSCOPIC ULTRASOUND REPORT 05/25/2021 6:56 PM CDT XR ERCP BILIARY AND PANCREATIC Routine 1 5:45 PM CDT PATHOLOGY Pathology 05/25/2021 5:13 PM CDT ESOPHAGOGASTRODUODENOSCOPY 05/25 1:00 PM CDT CHOLANGIOPANCREATOGRAPHY RETROGRADE ENDOSCOPIC 05/25/2021 1:00 PM CDT ULTRASOUND ENDOSCOPIC 05/25/2021 1:00 PM CDT CBC WITH DIFFERENTIAL Routine 05/25/2021 5:19 AM CDT HEPATIC FUNCTION PANEL Routine 5:19 AM CDT BASIC METABOLIC PANEL Routine 05/25/2021 5:[address] CHEST ABDOMEN PELVIS W CONT Routine 1 5:03 PM CDT 2019 NOVEL CORONAVIRUS (COVID-19) PCR DETECTION Routine 05/24/2021 1:45 PM CDT LIPASE Routine 05/24/2021 5:45 AM CDT HEPATIC FUNCTION PANEL Routine 5:45 AM CDT BASIC METABOLIC PANEL Routine 05/24/2021 5:45 AM CDT documented in this encounter Results * C. DIFFICILE DETECTION (05/31/2021 5:18 PM CDT) TOXIGENIC C DIFFICILE NOT DETECTED Not Detected 05/31/2021 8:29 PM CDT [facility] Stool STOOL SPECIMEN / Unknown Collection / Unknown 05/31/2021 5:18 PM CDT 05/31/2021 5:30 PM CDT Narrative [facility] - 05/31/2021 8:29 PM CDT This assay is used to detect Toxigenic C. difficile target(B gene) DNA sequences in unformed stool specimens. ??If toxigenic C. difficile is not detected, but clinical suspicion is high please consult ID for consultation and potential repeat testing. ??This test should not be used as a test of cure. Lanny Coleman MD MICROBIOLOGY - THOM AL ORDERABLES [facility] SERVICES [facility]# [id number] [address] [place] [address] * (ABNORMAL) BASIC METABOLIC PANEL (05/31/2021 10:44 AM CDT) SODIUM 139 136 - 145 mmol/L 05/31/2021 11:26 AM [facility] POTASSIUM 4.3 3.5 - 5.0 mmol/L 05/31/2021 11:26 AM [facility] Comment:Significant change f rom prior result, correlate clinically and redraw if necessary. CHLORIDE 101 98 - 107 mmol/L 05/31/2021 11:26 AM [facility] [employer] [facility] CO2 27 22 - 29 mmol/L 05/31/2021 11:26 AM [facility] CALCIUM 9.7 8.6 - 10.2 mg/dL 05/31/2021 11:26 AM [facility] BUN 6(L) 8 - 23 mg/dL 05/31/2021 11:26 AM [facility] CREATININE 0.73 0.51 - 0.95 mg/dL 05/31/2021 11:26 AM [facility] GLUCOSE 152(H) 74 - 99 mg/dL 05/31/2021 11:26 AM [facility] [employer] [facility] GFR >60 mL/min/1.7 3 sq meter 05/31/2021 11:26 AM [facility] Comment: eGFR has not been validated for use in the elderly (> 70 years of age), women, patients with serious co-morbid conditions, or persons with extremes of body size or muscle mass and should also be interpreted with caution in patients with acute kidney failure, dialysis dependent patients, patients reporting exceptional dietary intake (e.g. vegetarian diet, high protein diets, creatine supplementation), and patients with severe liver disease. Based on National Kidney Disease Education Program If patient is , please refer to the GFR result. GFR, >60 mL/min/1.7 3 sq meter 05/31/2021 11:26 AM CDT [facility] - [facility] ANION GAP 11 8 - 16 mmol/L 05/31/2021 11:26 AM T [facility] - [facility] Blood Venipuncture / Unknown 05/31/2021 10:44 AM CDT 05/31/2021 10:54 AM CDT Lanny Coleman MD CHEMISTRY ORDERABLES [facility]# [id number] [address] [facility] [place] [address] * (ABNORMAL) CBC WITH DIFFERENTIAL (05/31/2021 10:44 AM CDT) Pathologist [facility] WBC 6.5 4.0 - 9.8 K/uL 05/31/2021 11:01 AM T [employer] LABORATORY SERVICES - [facility] RBC 3.69(L) 3.90 - 4.90 M/uL 05/31/2021 11:01 AM T [facility] - [facility] HEMOGLOBIN 9.9(L) 11.8 - 14.8 g/dL 05/31/2021 11:01 AM T [facility] - [facility] HEMATOCRIT 31.9(L) 35.5 - 44.0 % 05/31/2021 11:01 AM T [facility] - [facility] MCV 86.4 82.0 - 99.0 fL 05/31/2021 11:01 AM T [facility] - [facility] MCH 26.8(L) 27.2 - 32.6 pg 05/31/2021 11:01 AM CDT [facility] - [facility] MCHC 31.0(L) 31.5 - 35.5 g/dL 05/31/2021 11:01 AM [facility]ORATORY SERVICES - [facility] RDW 14.9(H) 11.5 - 14.5 % 05/31/2021 11:01 AM [employer] LABORATORY SERVICES - [facility] RDW-STDEV 47.4 37.1 - 48.7 fL 05/31/2021 11:01 AM [employer] LABORATORY SERVICES - . [facility] PLATELETS 371(H) 140 - 350 K/uL 05/31/2021 11:01 AM [employer] LABORATORY SERVICES - [facility] MPV 9.4 9.3 - 12.4 fL 05/31/2021 11:01 AM [employer] SERVICES - . [facility] NEUTROPHILS 66 % 05/31/2021 11:01 AM [employer] SERVICES - [facility] LYMPHOCYTES 19 % 05/31/2021 11:01 AM [employer] [facility] - [facility] MONOCYTES 12 % 05/31/2021 11:01 AM [employer] [facility] - . [facility] EOSINOPHILS 2 % 05/31/2021 11:01 AM [employer] LAB[facility]ATORY SERVICES - . [facility] BASOPHILS 0 % 05/31/2021 11:01 AM [employer] SERVICES - . [facility] IMMATURE GRANULOCYTES 1 % 05/31/2021 11:01 AM [employer] LABORATORY SERVICES - . [facility] Comment:IG (Immature Granulo cyte) count includes Metamyelocytes, Myelocytes, and Promyelocytes NEUTROPHIL ABSOLUTE 4.32 1.90 - 7.00 K/uL 05/31/2021 11:01 AM [employer] SERVICES - . [facility] LYMPHOCYTE ABSOLUTE 1.21 0.70 - 4.50 K/uL 05/31/2021 11:01 AM [employer] LABORATORY SERVICES - . [facility] MONOCYTE ABSOLUTE 0.81 0.10 - 1.30 K/uL 05/31/2021 11:01 AM [employer] SERVICES - . [facility] EOSINOPHIL ABSOLUTE 0.13 0.00 - 0.70 K/uL 05/31/2021 11:01 AM [employer] [facility] - [facility] BASOPHILS ABSOLUTE 0.02 0.00 - 0.20 K/uL 05/31/2021 11:01 AM [employer] SERVICES - . [facility] IMMATURE GRANULOCYTES ABSOLUTE 0.04(H) 0.00 - 0.03 K/uL 05/31/2021 11:01 AM [employer] SERVICES - . [facility] Blood Venipuncture / Unknown 05/31/2021 10:44 AM CDT 05/31/2021 10:54 AM CDT Lanny Colemna MD HEMATOLOGY ORDERABLE S [facility] SERVICES - [facility] CLCT# [id number] [address] [facility] [place] [address] * (ABNORMAL) BASIC METABOLIC PANEL (05/30/2021 10:59 AM CDT) SODIUM 133(L) 136 - 145 mmol/L 05/30/2021 11:52 AM [facility] [employer] LABORATORY SERVICES - [facility] POTASSIUM 2.8(L) 3.5 - 5.0 mmol/L 05/30/2021 11:52 AM [facility] [employer] [facility] CHLORIDE 93(L) 98 - 107 mmol/L 05/30/2021 11:52 AM [facility]ORY SERVICES - [facility] CO2 28 22 - 29 mmol/L 05/30/2021 11:52 AM [facility] LAB[facility] CALCIUM 9.0 8.6 - 10.2 mg/dL 05/30/2021 11:52 AM [facility]ATORY SERVICES - [facility] BUN 7(L) 8 - 23 mg/dL 05/30/2021 11:52 AM [facility] LAB[facility]ORY [facility] - . [facility] CREATININE 0.72 0.51 - 0.95 mg/dL 05/30/2021 11:52 AM [facility] GLUCOSE 236(H) 74 - 99 mg/dL 05/30/2021 11:52 AM [facility] [employer] SERVICES - . [facility] GFR >60 mL/min/1.7 3 sq meter 05/30/2021 11:52 AM [facility] [employer] LABORATORY SERVICES - . [place] Comment: eGFR has not been validated for use in the elderly (> 70 years of age), women, patients with serious co-morbid conditions, or persons with extremes of body size or muscle mass and should also be interpreted with caution in patients with acute kidney failure, dialysis dependent patients, patients reporting exceptional dietary intake (e.g. vegetarian diet, high protein diets, creatine supplementation), and patients with severe liver disease. Based on National Kidney Disease Education Program If patient is , please refer to the GFR result. GFR, >60 mL/min/1.7 3 sq meter 05/30/2021 11:52 AM CDT [facility] SERVICES [facility] ANION GAP 12 8 - 16 mmol/L 05/30/2021 11:52 AM CDT [facility] SERVICES - [facility] Blood Venipuncture / Unknown 05/30/2021 10:59 AM CDT 05/30/2021 11:04 AM CDT Lanny Coleman MD CHEMISTRY ORDERABLES Performing Organization Address [facility]/ZIP Co de Phone Number [id number] [address] [place] [address] * MAGNESIUM LEVEL (05/29/2021 5:29 AM CDT) MAGNESIUM 1.8 1.6 - 2.4 mg/dL 05/29/2021 6:41 AM CDT [facility] SERVICES [facility] Blood Venipuncture / Unknown 05/29/2021 5:29 AM CDT 05/29/2021 5:54 AM CDT Nancy Suárez MD CHEMISTRY ORDERABLES Performing Organization Address City/[facility]/ZIP Co de Phone Number [facility]# [id number] [address] [place] [place] [address] * (ABNORMAL) CBC WITH DIFFERENTIAL (05/29/2021 5:29 AM CDT) WBC 8.8 4.0 - 9.8 K/uL 05/29/2021 6:13 AM CDT [facility] SERVICES [facility] RBC 3.67(L) 3.90 - 4.90 M/uL 05/29/2021 6:13 AM CDT [facility] HEMOGLOBIN 9.8(L) 11.8 - 14.8 g/dL 05/29/2021 6:13 AM CDT [employer] LABORATORY SERVICES - [facility] HEMATOCRIT 31.3(L) 35.5 - 44.0 % 05/29/2021 6:13 AM CDT [employer] LABORATORY SERVICES - . [facility] MCV 85.3 82.0 - 99.0 fL 05/29/2021 6:13 AM CDT [employer] LABORATORY SERVICES - [facility] MCH 26.7(L) 27.2 - 32.6 pg 05/29/2021 6:13 AM CDT [employer] LABORATORY SERVICES - [facility] MCHC 31.3(L) 31.5 - 35.5 g/dL 05/29/2021 6:13 AM CDT [employer] [facility]ATORY SERVICES - [facility] [facility] RDW 14.9(H) 11.5 - 14.5 % 05/29/2021 6:13 AM CDT [employer] [facility] - [facility] RDW-STDEV 46.5 37.1 - 48.7 fL 05/29/2021 6:13 AM CDT [employer] [facility] - [facility] PLATELETS 295 140 - 350 K/uL 05/29/2021 6:13 AM CDT [employer] [facility] - [facility] MPV 9.8 9.3 - 12.4 fL 05/29/2021 6:13 AM CDT [employer] [facility] - [facility] NEUTROPHILS 73 % 05/29/2021 6:13 AM CDT [employer] [facility] - [facility] LYMPHOCYTES 15 % 05/29/2021 6:13 AM CDT [employer] [facility] - [facility] MONOCYTES 11 % 05/29/2021 6:13 AM CDT [employer] LABORATORY SERVICES - . [facility] EOSINOPHILS 0 % 05/29/2021 6:13 AM CDT [employer] LABORATORY SERVICES - . [facility] BASOPHILS 0 % 05/29/2021 6:13 AM CDT [employer] [facility]ATORY SERVICES - . [facility] IMMATURE GRANULOCYTES 1 % 05/29/2021 6:13 AM CDT [employer] [facility] - [facility] Comment:IG (Immature Granulo cyte) count includes Metamyelocytes, Myelocytes, and Promyelocytes NEUTROPHIL ABSOLUTE 6.40 1.90 - 7.00 K/uL 05/29/2021 6:13 AM CDT [employer] LABORATORY SERVICES - [facility] LYMPHOCYTE ABSOLUTE 1.35 0.70 - 4.50 K/uL 05/29/2021 6:13 AM CDT [facility] LABORATORY SERVICES - [facility] MONOCYTE ABSOLUTE 0.93 0.10 - 1.30 K/uL 05/29/2021 6:13 AM CDT [facility] LABORATORY SERVICES - [facility] EOSINOPHIL ABSOLUTE 0.02 0.00 - 0.70 K/uL 05/29/2021 6:13 AM CDT [facility] LAB[facility]ORY SERVICES - [facility] BASOPHILS ABSOLUTE 0.02 0.00 - 0.20 K/uL 05/29/2021 6:13 AM CDT [facility] LAB[facility]ATORY SERVICES - [facility] IMMATURE GRANULOCYTES ABSOLUTE 0.04(H) 0.00 - 0.03 K/uL 05/29/2021 6:13 AM T [facility]ORY SERVICES - [facility] Blood Venipuncture / Unknown 05/29/2021 5:29 AM CDT 05/29/2021 5:54 AM CDT Nancy Suárez MD HEMATOLOGY ORDERABLE S [facility] LABORATORY SERVICES [facility]# [id number] [address] [place] [address] * (ABNORMAL) COMPREHENSIVE METABOLIC PANEL (05/29/2021 5:29 AM CDT) SODIUM 132(L) 136 - 145 mmol/L 05/29/2021 6:41 AM T [facility] LABORATORY SERVICES - [facility] POTASSIUM 3.3(L) 3.5 - 5.0 mmol/L 05/29/2021 6:41 AM T [facility] LABORATORY SERVICES - [facility] CHLORIDE 92(L) 98 - 107 mmol/L 05/29/2021 6:41 AM CDT [facility] LAB[facility]ATORY SERVICES - [facility] CO2 28 22 - 29 mmol/L 05/29/2021 6:41 AM T [facility] LAB[facility]ORY SERVICES - [facility] CALCIUM 8.9 8.6 - 10.2 mg/dL 05/29/2021 6:41 AM CDT [facility] LAB[facility]ATORY SERVICES - [facility] BUN 7(L) 8 - 23 mg/dL 05/29/2021 6:41 AM [employer] LABORATORY SERVICES - . [facility] CREATININE 0.91 0.51 - 0.95 mg/dL 05/29/2021 6:41 AM [employer] LABORATORY SERVICES - [facility] GLUCOSE 110(H) 74 - 99 mg/dL 05/29/2021 6:41 AM [employer] LABORATORY SERVICES - [facility] TOTAL PROTEIN 6.9 6.7 - 8.6 g/dL 05/29/2021 6:41 AM [employer] LABORATORY SERVICES - [facility] ALBUMIN 3.3(L) 3.5 - 5.2 g/dL 05/29/2021 6:41 AM [employer] LABORATORY SERVICES - [facility] BILIRUBIN TOTAL 0.9 0.2 - 1.1 mg/dL 05/29/2021 6:41 AM [employer] LABORATORY SERVICES - [facility] ALKALINE PHOSPHATASE 314(H) 35 - 104 U/L 05/29/2021 6:41 AM [employer] LABORATORY SERVICES - [facility] AST 27 <33 U/L 05/29/2021 6:41 AM [facility] SERVICES - [facility] ALT 50(H) <34 U/L 05/29/2021 6:41 AM [employer] LABORATORY SERVICES - . [facility] GFR >60 mL/min/1.7 3 sq meter 05/29/2021 6:41 AM [facility] SERVICES - [facility] Comment: eGFR has not been validated for use in the elderly (> 70 years of age), women, patients with serious co-morbid conditions, or persons with extremes of body size or muscle mass and should also be interpreted with caution in patients with acute kidney failure, dialysis dependent patients, patients reporting exceptional dietary intake (e.g. vegetarian diet, high protein diets, creatine supplementation), and patients with severe liver disease. Based on National Kidney Disease Education Program If patient is , please refer to the GFR result. GFR, >60 mL/min/1.7 3 sq meter 05/29/2021 6:41 AM [employer] LABORATORY SERVICES - . [facility] ANION GAP 12 8 - 16 mmol/L 05/29/2021 6:41 AM [facility] SERVICES - . [facility] Blood Venipuncture / Unknown 05/29/2021 5:29 AM CDT 05/29/2021 5:54 AM CDT Narrative [facility] - 05/29/2021 6:41 AM CDT Samples containing indocyanine green cause interferences on Total and/or Direct Bilirubin and must not be measured. Nancy Suárez MD CHEMISTRY ORDERABLES [facility] LABORATORY [facility] CLIA# [id number] [address] [facility] [place] [address] * XR CHEST PA AND LATERAL 2 VW (05/28/2021 3:10 PM CDT) Anatomical Region Laterality Modality Chest Computed Radiogr aphy 05/28/2021 3:10 PM CDT Impressions 05/28/2021 4:34 PM CDT IMPRESSION: Elevation of the right hemidiaphragm, with right basilar atelectasis noted. There may be a tiny right pleural effusion. Mild left basilar atelectasis versus infiltrates noted. DICTATION LOCATION: Location 1 - [facility] Narrative 05/28/2021 4:34 PM CDT PA AND LATERAL VIEWS OF THE CHEST ?? DATE: 05/28/2021 3:10 PM HISTORY: Fever COMPARISON: None FINDINGS: ?? There is elevation of the right hemidiaphragm with right basilar atelectasis. Mild left basilar opacities are seen. There may be a tiny right pleural effusion. There is no pneumothorax. The cardiomediastinal silhouette is within normal limits. Cervical spine fusion hardware is noted. A catheter and stent are partially visualized in the mid to right abdomen. Procedure Note Susana Bynum MD - 05/28/2021 PA AND LATERAL VIEWS OF THE CHEST DATE: 05/28/2021 3:10 PM HISTORY: Fever COMPARISON: None FINDINGS: There is elevation of the right hemidiaphragm with right basilar atelectasis. Mild left basilar opacities are seen. There may be a tiny right pleural effusion. There is no pneumothorax. The cardiomediastinal silhouette is within normal limits. Cervical spine fusion hardware is noted. A catheter and stent are partially visualized in the mid to right abdomen. IMPRESSION: Elevation of the right hemidiaphragm, with right basilar atelectasis noted. There may be a tiny right pleural effusion. Mild left basilar atelectasis versus infiltrates noted. DICTATION LOCATION: Location 1 - [facility] Nancy Suárez MD DIAGNOSTIC IMAGING O RDERABLES * (ABNORMAL) BLOOD CULTURE PATHOGEN PCR PANEL (05/28/2021 1:45 PM CDT) Klebsiella pneumoniae group by PCR DETECTED( A) Not Detected 05/29/2021 7:36 AM CDT [facility] Blood (Peripheral) Venipuncture / Unknown 05/28/2021 1:45 PM CDT 05/28/2021 2:14 PM CDT Narrative [facility] - 05/29/2021 7:36 AM CDT [employer] Blood Culture Identification Panel is a multiplexed nucleic acid detection test for bacterial and yeast nucleic acids in positive blood cultures. ??It also detects genetic determinants of resistance to methicillin (mecA/C and MREJ), vancomycin (Nadege and vanB), carbapenems (IMP, KPC, NDM, OXA-48 like and VIM), colistin (mcr-1) and ESBL (CTX-M). ??The following organisms are identified using the [employer] BCID Panel: Gram Positive Bacteria Enterococcus faecalis Enterococcus faecium Listeria monocytogenes Staphylococcus Staphylococcus aureus Staphylococcus epidermidis Staphylococcus lugdunensis Streptococcus Streptococcus agalactiae Streptococcus pneumoniae Streptococcus pyogenes Gram Negative Bacteria Acinetobacter calcoaceticus-baumannii Bacteroides fragilis Haemophilus influenzae Neisseria meningitidis (encapsulated) Pseudomonas aeruginosa Stenotrophomonas maltophilia Enterobacteriaceae Enterobacter cloacae complex Escherichia coli Klebsiella aerogenes Klebsiella oxytoca Klebsiella pneumoniae group Proteus Salmonella Serratia marcescens Yeast Tiara albicans Tiara auris Tiara glabrata Tiara krusei Tiara parapsilosis Tiara tropicalis Cryptococcus neoformans/patric Nancy Suárez MD MICROBIOLOGY - GENER AL ORDERABLES [facility] LABORATORY [facility] CLIA# [id number] [address] [place] [address] * (ABNORMAL) BLOOD CULTURE (05/28/2021 1:45 PM CDT) BLOOD CULTURE Abnormal Gram Stain(A) 05/31/2021 9:01 AM CDT [facility] BLOOD CULTURE Culture positive for Klebsiella variicola(A) BECKY MCG/ML 05/31/2021 9:01 AM CDT [facility] Comment:Mucoid Blood (Peripheral) Venipuncture / Unknown 05/28/2021 1:45 PM CDT 05/28/2021 2:14 PM CDT Narrative [facility] - 05/31/2021 9:01 AM CDT Gram stain and preliminary PCR results called to Esperanza Charles RN on 05/29/2021 at 7:34 AM and read back verified. Time to Positivity (aerobic bottle): ??11.4 hours Time to Positivity (anaerobic bottle): ??12.3 hours Blood stream infection is more likely to be catheter related if the time to positivity of a blood culture drawn through the line is at least 2.5 hours LESS than the time to positivity of a percutaneous culture of the same volume drawn at the same time, using the same media type. Organism Antibiotic Method Susceptibility Klebsiella variicola AMPICILLIN [place] Resistant Klebsiella variicola AMPICILLIN/ SULBACTAM [place] Susceptible Klebsiella variicola CEFAZOLIN [place] Susceptible Klebsiella variicola GENTAMICIN [place] Susceptible Klebsiella variicola CIPROFLOXACIN [place] Susceptible Klebsiella variicola TRIMETHOPRIM/ SULFAMETHOXAZOLE KI RBY-PRESCOTT Susceptible Nancy Suárez MD MICROBIOLOGY - [facility] ORDERABLES [facility]# [id number] [facility] [place] [address] * (ABNORMAL) BLOOD CULTURE (05/28/2021 1:44 PM CDT) BLOOD CULTURE Abnormal Gram Stain(A) 05/31/2021 9:04 AM CDT [facility] BLOOD CULTURE Culture positive for Klebsiella variicola(A) BECKY MCG/ML 05/31/2021 9:04 AM CDT [employer] LABORATORY SERVICES - [facility] Comment:Susceptibility on pr evious culture. Blood (Peripheral) Venipuncture / Unknown 05/28/2021 1:44 PM CDT 05/28/2021 2:14 PM CDT Narrative [facility] LABORATORY SERVICES - [facility] - 05/31/2021 9:04 AM CDT Results called to Esperanza Charles RN on 05/29/2021 at 7:34 AM and read back verified. Time to Positivity (aerobic bottle): ??12.1 hours Time to Positivity (anaerobic bottle): ??12.9 hours Blood stream infection is more likely to be catheter related if the time to positivity of a blood culture drawn through the line is at least 2.5 hours LESS than the time to positivity of a percutaneous culture of the same volume drawn at the same time, using the same media type. Nancy Suárez MD MICROBIOLOGY - [facility] ORDERABLES Performing Organization Address City/State/[facility] Co de Phone Number [facility] LABORATORY SERVICES [facility]# [id number] [address] [facility] [address] * URINALYSIS WITH REFLEX MICROSCOPIC (05/28/2021 11:33 AM CDT) COLOR UA Yellow Pale to Dark Yellow 05/28/2021 11:49 AM CDT [employer] LABORATORY SERVICES - . [facility] CLARITY UA Clear Clear 05/28/2021 11:49 AM T [employer] LABORATORY SERVICES - . [facility] SPECIFIC GRAVITY UA 1.017 1.003 - 1.035 05/28/2021 11:49 AM CDT [employer] SERVICES - [facility] PH UA 7.0 5.0 - 8.0 05/28/2021 11:49 AM CDT [employer] LABORATORY [facility] LEUKOCYTE ESTERASE UA Negative Negative 05/28/2021 11:49 AM CDT [employer] LABORATORY SERVICES - [facility] NITRITE UA Negative Negative 05/28/2021 11:49 AM CDT [employer] LABORATORY SERVICES - [facility] PROTEIN UA Negative Negative 05/28/2021 11:49 AM CDT [employer] LABORATORY SERVICES - [facility] GLUCOSE UA Negative Negative 05/28/2021 11:49 AM CDT [employer] LABORATORY SERVICES - . [facility] KETONES UA Negative Negative 05/28/2021 11:49 AM CDT [employer] LABORATORY SERVICES - [facility] UROBILINOGEN UA Normal <2.0 mg/dL 11:49 AM CDT [employer] LABORATORY SERVICES - [facility] BILIRUBIN UA Negative Negative 05/28/2021 11:49 AM CDT [employer] LABORATORY SERVICES - . [facility] BLOOD UA Negative Negative 05/28/2021 11:49 AM CDT [employer] LABORATORY SERVICES - [facility] Urine URINE SPECIMEN OBTAINED BY CLEAN CATCH PROCEDURE / Unknown Collection / Unknown 05/28/2021 11:33 AM CDT 05/28/2021 11:36 AM CDT Nancy Suárez MD URINE ORDERABLES [facility] [employer] SERVICES - [facility]# [id number] [address] [place] [address] * (ABNORMAL) CBC WITH DIFFERENTIAL (05/28/2021 6:18 AM CDT) WBC 7.1 4.0 - 9.8 K/uL 05/28/2021 7:18 AM CDT [employer] LABORATORY SERVICES - [facility] RBC 3.71(L) 3.90 - 4.90 M/uL 05/28/2021 7:18 AM CDT [employer] LABORATORY SERVICES - [facility] HEMOGLOBIN 10.1(L) 11.8 - 14.8 g/dL 05/28/2021 7:18 AM CDT [employer] LABORATORY SERVICES - [facility] HEMATOCRIT 32.0(L) 35.5 - 44.0 % 05/28/2021 7:18 AM CDT [employer] LABORATORY SERVICES - [facility] MCV 86.3 82.0 - 99.0 fL 05/28/2021 7:18 AM CDT [employer] LABORATORY SERVICES - [facility] MCH 27.2 27.2 - 32.6 pg 05/28/2021 7:18 AM CDT [employer] LABORATORY SERVICES - [facility] MCHC 31.6 31.5 - 35.5 g/dL 05/28/2021 7:18 AM CDT [employer] LABORATORY SERVICES - [facility] RDW 14.8(H) 11.5 - 14.5 % 05/28/2021 7:18 AM CDT [employer] LABORATORY SERVICES - [facility] RDW-STDEV 46.6 37.1 - 48.7 fL 05/28/2021 7:18 AM CDT [employer] LABORATORY SERVICES - [facility] PLATELETS 356(H) 140 - 350 K/uL 05/28/2021 7:18 AM CDT [employer] LABORATORY SERVICES - [facility] MPV 9.8 9.3 - 12.4 fL 05/28/2021 7:18 AM CDT [employer] [facility]ATORY SERVICES - [facility] NEUTROPHILS 73 % 05/28/2021 7:18 AM CDT [employer] [facility]ATORY SERVICES - [facility] LYMPHOCYTES 16 % 05/28/2021 7:18 AM CDT [employer] [facility]ATORY SERVICES - [facility] MONOCYTES 8 % 05/28/2021 7:18 AM CDT [employer] [facility]ATORY SERVICES - [facility] EOSINOPHILS 2 % 05/28/2021 7:18 AM CDT [employer] [facility]ATORY SERVICES - [facility] BASOPHILS 0 % 05/28/2021 7:18 AM CDT [employer] [facility]ATORY SERVICES - [facility] IMMATURE GRANULOCYTES 0 % 05/28/2021 7:18 AM CDT [employer] [facility]ATORY SERVICES - [facility] NEUTROPHIL ABSOLUTE 5.14 1.90 - 7.00 K/uL 05/28/2021 7:18 AM CDT [employer] [facility]ATORY SERVICES - [facility] LYMPHOCYTE ABSOLUTE 1.15 0.70 - 4.50 K/uL 05/28/2021 7:18 AM CDT [employer] LAB[facility]ATORY SERVICES - [facility] MONOCYTE ABSOLUTE 0.59 0.10 - 1.30 K/uL 05/28/2021 7:18 AM CDT [employer] LABORATORY SERVICES - [facility] EOSINOPHIL ABSOLUTE 0.15 0.00 - 0.70 K/uL 05/28/2021 7:18 AM CDT [employer] [facility]ATORY SERVICES - [facility] BASOPHILS ABSOLUTE 0.02 0.00 - 0.20 K/uL 05/28/2021 7:18 AM CDT [employer] LAB[facility]ATORY SERVICES - [facility] IMMATURE GRANULOCYTES ABSOLUTE 0.03 0.00 - 0.03 K/uL 05/28/2021 7:18 AM CDT [employer] [facility]ATORY SERVICES - [facility] Blood Venipuncture / Unknown 05/28/2021 6:18 AM CDT 05/28/2021 7:08 AM CDT Nancy Suárez MD HEMATOLOGY ORDERABLE S [facility] LABORATORY SERVICES - [facility] CLIA# [id number] [address] [facility] [place] [address] * (ABNORMAL) COMPREHENSIVE METABOLIC PANEL (05/28/2021 6:18 AM CDT) Pathologist [facility] SODIUM 139 136 - 145 mmol/L 05/28/2021 7:42 AM CDT [facility] LABORATORY SERVICES - . [facility] POTASSIUM 3.2(L) 3.5 - 5.0 mmol/L 05/28/2021 7:42 AM CDT [facility] LABORATORY SERVICES - [facility] CHLORIDE 95(L) 98 - 107 mmol/L 05/28/2021 7:42 AM CDT [facility] LABORATORY SERVICES - [facility] CO2 31(H) 22 - 29 mmol/L 05/28/2021 7:42 AM CDT [facility] LABORATORY SERVICES - [facility] CALCIUM 9.2 8.6 - 10.2 mg/dL 05/28/2021 7:42 AM CDT [facility] LABORATORY SERVICES - [facility] BUN 6(L) 8 - 23 mg/dL 05/28/2021 7:42 AM T [facility] LABORATORY SERVICES - [facility] CREATININE 0.75 0.51 - 0.95 mg/dL 05/28/2021 7:42 AM CDT [facility] LABORATORY SERVICES - [facility] GLUCOSE 111(H) 74 - 99 mg/dL 05/28/2021 7:42 AM CDT [facility] LABORATORY SERVICES - [facility] TOTAL PROTEIN 7.2 6.7 - 8.6 g/dL 05/28/2021 7:42 AM CDT [employer] LABORATORY SERVICES - [facility] ALBUMIN 3.8 3.5 - 5.2 g/dL 05/28/2021 7:42 AM CDT [employer] LABORATORY SERVICES - [facility] BILIRUBIN TOTAL 1.1 0.2 - 1.1 mg/dL 05/28/2021 7:42 AM [facility] ALKALINE PHOSPHATASE 398(H) 35 - 104 U/L 05/28/2021 7:42 AM [facility] AST 34(H) <33 U/L 05/28/2021 7:42 AM [facility] ALT 70(H) <34 U/L 05/28/2021 7:42 AM [facility] GFR >60 mL/min/1.7 3 sq meter 05/28/2021 7:42 AM T [facility] Comment: eGFR has not been validated for use in the elderly (> 70 years of age), women, patients with serious co-morbid conditions, or persons with extremes of body size or muscle mass and should also be interpreted with caution in patients with acute kidney failure, dialysis dependent patients, patients reporting exceptional dietary intake (e.g. vegetarian diet, high protein diets, creatine supplementation), and patients with severe liver disease. Based on National Kidney Disease Education Program If patient is , please refer to the GFR result. GFR, >60 mL/min/1.7 3 sq meter 05/28/2021 7:42 AM [facility] ANION GAP 13 8 - 16 mmol/L 05/28/2021 7:42 AM [facility] Blood Venipuncture / Unknown 05/28/2021 6:18 AM CDT 05/28/2021 7:07 AM CDT Narrative [facility] - 05/28/2021 7:42 AM CDT Samples containing indocyanine green cause interferences on Total and/or Direct Bilirubin and must not be measured. Nancy Suárez MD CHEMISTRY ORDERABLES [facility]# [id number] [address] [place] [address] [address] [place] [address] * LIPASE (05/27/2021 5:57 AM CDT) LIPASE 58 13 - 60 U/L 05/27/2021 12:28 PM CDT [employer] LABORATORY SERVICES - [facility] Blood Venipuncture / Unknown 05/27/2021 5:57 AM CDT 05/27/2021 7:14 AM CDT Lisa Evangelina Padilla MD CHEMISTRY JAYNE DÍAZ [facility] LABORATORY SERVICES - [facility] CLIA# [id number] [address] [place] [address] * (ABNORMAL) CBC WITH DIFFERENTIAL (05/27/2021 5:57 AM CDT) WBC 11.0(H) 4.0 - 9.8 K/uL 05/27/2021 7:34 AM CDT [employer] LABORATORY SERVICES - [facility] RBC 4.10 3.90 - 4.90 M/uL 05/27/2021 7:34 AM CDT [employer] LABORATORY SERVICES - [facility] HEMOGLOBIN 10.8(L) 11.8 - 14.8 g/dL 05/27/2021 7:34 AM CDT [employer] LABORATORY SERVICES - [facility] HEMATOCRIT 34.2(L) 35.5 - 44.0 % 05/27/2021 7:34 AM CDT [employer] LABORATORY SERVICES - . [facility] MCV 83.4 82.0 - 99.0 fL 05/27/2021 7:34 AM CDT [employer] LABORATORY SERVICES - [facility] MCH 26.3(L) 27.2 - 32.6 pg 05/27/2021 7:34 AM CDT [employer] LABORATORY SERVICES - [facility] MCHC 31.6 31.5 - 35.5 g/dL 05/27/2021 7:34 AM CDT [employer] LABORATORY SERVICES - [facility] RDW 14.8(H) 11.5 - 14.5 % 05/27/2021 7:34 AM CDT [employer] LABORATORY SERVICES - [facility] RDW-STDEV 44.2 37.1 - 48.7 fL 05/27/2021 7:34 AM CDT [employer] LABORATORY SERVICES - [facility] PLATELETS 415(H) 140 - 350 K/uL 05/27/2021 7:34 AM CDT [facility] LABORATORY SERVICES - [facility] MPV 10.2 9.3 - 12.4 fL 05/27/2021 7:34 AM CDT [facility] LABORATORY SERVICES - [facility] NEUTROPHILS 84 % 05/27/2021 7:34 AM CDT [facility] LABORATORY SERVICES - [facility] LYMPHOCYTES 10 % 05/27/2021 7:34 AM CDT [facility] LABORATORY SERVICES - [facility] MONOCYTES 5 % 05/27/2021 7:34 AM CDT [facility] LABORATORY SERVICES - [facility] EOSINOPHILS 1 % 05/27/2021 7:34 AM CDT [facility] LABORATORY SERVICES - [facility] BASOPHILS 0 % 05/27/2021 7:34 AM CDT [facility] LABORATORY SERVICES - [facility] IMMATURE GRANULOCYTES 1 % 05/27/2021 7:34 AM CDT [facility] LABORATORY SERVICES - [facility] Comment:IG (Immature Granulo cyte) count includes Metamyelocytes, Myelocytes, and Promyelocytes NEUTROPHIL ABSOLUTE 9.25(H) 1.90 - 7.00 K/uL 05/27/2021 7:34 AM CDT [facility] LABORATORY SERVICES - [facility] LYMPHOCYTE ABSOLUTE 1.09 0.70 - 4.50 K/uL 05/27/2021 7:34 AM CDT [facility] LABORATORY SERVICES - [facility] MONOCYTE ABSOLUTE 0.52 0.10 - 1.30 K/uL 05/27/2021 7:34 AM CDT [facility] LABORATORY SERVICES - [facility] EOSINOPHIL ABSOLUTE 0.10 0.00 - 0.70 K/uL 05/27/2021 7:34 AM CDT [facility] LABORATORY SERVICES - [facility] BASOPHILS ABSOLUTE 0.03 0.00 - 0.20 K/uL 05/27/2021 7:34 AM CDT [facility] LABORATORY SERVICES - [facility] IMMATURE GRANULOCYTES ABSOLUTE 0.05(H) 0.00 - 0.03 K/uL 05/27/2021 7:34 AM CDT [facility] LABORATORY SERVICES - [facility] Blood Venipuncture / Unknown 05/27/2021 5:57 AM CDT 05/27/2021 7:15 AM CDT Nancy Suárez MD HEMATOLOGY ORDERABLE S [facility] LABORATORY SERVICES - [facility]# [id number] [place] [address] * (ABNORMAL) COMPREHENSIVE METABOLIC PANEL (05/27/2021 5:57 AM CDT) SODIUM 136 136 - 145 mmol/L 05/27/2021 7:56 AM T [facility] POTASSIUM 3.3(L) 3.5 - 5.0 mmol/L 05/27/2021 7:56 AM T [facility] CHLORIDE 92(L) 98 - 107 mmol/L 05/27/2021 7:56 AM T [facility] CO2 28 22 - 29 mmol/L 05/27/2021 7:56 AM T [facility] CALCIUM 10.0 8.6 - 10.2 mg/dL 05/27/2021 7:56 AM [facility] BUN 7(L) 8 - 23 mg/dL 05/27/2021 7:56 AM T [facility] CREATININE 0.90 0.51 - 0.95 mg/dL 05/27/2021 7:56 AM [facility] GLUCOSE 122(H) 74 - 99 mg/dL 05/27/2021 7:56 AM T [facility] TOTAL PROTEIN 8.0 6.7 - 8.6 g/dL 05/27/2021 7:56 AM T [facility] ALBUMIN 4.2 3.5 - 5.2 g/dL 05/27/2021 7:56 AM T [facility] BILIRUBIN TOTAL 1.7(H) 0.2 - 1.1 mg/dL 05/27/2021 7:56 AM T [facility] ALKALINE PHOSPHATASE 573(H) 35 - 104 U/L 05/27/2021 7:56 AM T [facility] AST 140(H) <33 U/L 05/27/2021 7:56 AM T [facility] ALT 128(H) <34 U/L 05/27/2021 7:56 AM CDT [facility] GFR >60 mL/min/1.7 3 sq meter 05/27/2021 7:56 AM CDT [facility] [employer] [facility] Comment: eGFR has not been validated for use in the elderly (> 70 years of age), women, patients with serious co-morbid conditions, or persons with extremes of body size or muscle mass and should also be interpreted with caution in patients with acute kidney failure, dialysis dependent patients, patients reporting exceptional dietary intake (e.g. vegetarian diet, high protein diets, creatine supplementation), and patients with severe liver disease. Based on National Kidney Disease Education Program If patient is , please refer to the GFR result. GFR, >60 mL/min/1.7 3 sq meter 05/27/2021 7:56 AM CDT [facility] ANION GAP 16 8 - 16 mmol/L 05/27/2021 7:56 AM T [facility] Blood Venipuncture / Unknown 05/27/2021 5:57 AM CDT 05/27/2021 7:14 AM CDT Narrative [facility] LABORATORY [facility] - 05/27/2021 7:56 AM CDT Samples containing indocyanine green cause interferences on Total and/or Direct Bilirubin and must not be measured. Nancy Suárez MD CHEMISTRY ORDERABLES [facility] [employer] [facility]# [id number] [address] [place], [place] [address] [place] [address] * (ABNORMAL) COMPREHENSIVE METABOLIC PANEL (05/26/2021 4:57 AM CDT) SODIUM 140 136 - 145 mmol/L 05/26/2021 5:57 AM CDT [employer] [facility] POTASSIUM 3.3(L) 3.5 - 5.0 mmol/L 05/26/2021 5:57 AM T [facility] CHLORIDE 100 98 - 107 mmol/L 05/26/2021 5:57 AM CDT [employer] LABORATORY SERVICES - [facility] CO2 27 22 - 29 mmol/L 05/26/2021 5:57 AM [facility] [employer] LABORATORY SERVICES - [facility] CALCIUM 9.8 8.6 - 10.2 mg/dL 05/26/2021 5:57 AM [facility] [employer] LABORATORY SERVICES - [facility] BUN 6(L) 8 - 23 mg/dL 05/26/2021 5:57 AM [facility] [employer] LAB[facility]ATORY SERVICES - [facility] CREATININE 0.64 0.51 - 0.95 mg/dL 05/26/2021 5:57 AM [facility] [employer] [facility]ATORY SERVICES - [facility] GLUCOSE 99 74 - 99 mg/dL 05/26/2021 5:57 AM [facility] [employer] LABORATORY SERVICES - [facility] TOTAL PROTEIN 7.3 6.7 - 8.6 g/dL 05/26/2021 5:57 AM [facility] [employer] LAB[facility]ATORY SERVICES - [facility] ALBUMIN 4.0 3.5 - 5.2 g/dL 05/26/2021 5:57 AM [employer] LABORATORY SERVICES - [facility] BILIRUBIN TOTAL 1.1 0.2 - 1.1 mg/dL 05/26/2021 5:57 AM [facility] [employer] LABORATORY SERVICES - [facility] ALKALINE PHOSPHATASE 374(H) 35 - 104 U/L 05/26/2021 5:57 AM [facility] [employer] SERVICES - [facility] AST 51(H) <33 U/L 05/26/2021 5:57 AM [employer] LABORATORY SERVICES - [facility] ALT 74(H) <34 U/L 05/26/2021 5:57 AM [employer] LAB[facility]ATORY SERVICES - [facility] GFR >60 mL/min/1.7 3 sq meter 05/26/2021 5:57 AM [employer] [facility]ORY [facility] Comment: eGFR has not been validated for use in the elderly (> 70 years of age), women, patients with serious co-morbid conditions, or persons with extremes of body size or muscle mass and should also be interpreted with caution in patients with acute kidney failure, dialysis dependent patients, patients reporting exceptional dietary intake (e.g. vegetarian diet, high protein diets, creatine supplementation), and patients with severe liver disease. Based on National Kidney Disease Education Program If patient is , please refer to the GFR result. GFR, >60 mL/min/1.7 3 sq meter 05/26/2021 5:57 AM CDT [facility] LABORATORY SERVICES - [facility] ANION GAP 13 8 - 16 mmol/L 05/26/2021 5:57 AM CDT [facility] LABORATORY [facility] - [facility] Blood Venipuncture / Unknown 05/26/2021 4:57 AM CDT 05/26/2021 5:19 AM CDT [facility] LABORATORY SERVICES - [facility] - 05/26/2021 5:57 AM CDT Samples containing indocyanine green cause interferences on Total and/or Direct Bilirubin and must not be measured. Nancy Suárez MD CHEMISTRY ORDERABLES [facility] [employer] [facility] [id number] [address] [place] [address] * (ABNORMAL) CBC WITH DIFFERENTIAL (05/26/2021 4:57 AM CDT) [facility] WBC 6.8 4.0 - 9.8 K/uL 05/26/2021 5:33 AM CDT [facility] LABORATORY SERVICES [facility] RBC 3.60(L) 3.90 - 4.90 M/uL 05/26/2021 5:33 AM CDT [facility] LAB[facility]ORY [facility] HEMOGLOBIN 9.8(L) 11.8 - 14.8 g/dL 05/26/2021 5:33 AM CDT [facility] LABOR[facility]ORY [facility] HEMATOCRIT 30.4(L) 35.5 - 44.0 % 05/26/2021 5:33 AM CDT [facility] LABOR[facility]ORY [facility] MCV 84.4 82.0 - 99.0 fL 05/26/2021 5:33 AM CDT [facility] LABORATORY SERVICES - [facility] MCH 27.2 27.2 - 32.6 pg 05/26/2021 5:33 AM CDT [facility] LABORATORY [facility] MCHC 32.2 31.5 - 35.5 g/dL 05/26/2021 5:33 AM CDT [facility] LABOR[facility]ORY [facility] RDW 14.3 11.5 - 14.5 % 05/26/2021 5:33 AM CDT [employer] LABORATORY SERVICES - . [facility] RDW-STDEV 43.8 37.1 - 48.7 fL 05/26/2021 5:33 AM [employer] LABORATORY SERVICES - . [facility] PLATELETS 379(H) 140 - 350 K/uL 05/26/2021 5:33 AM [employer] LABORATORY SERVICES - . [facility] MPV 9.5 9.3 - 12.4 fL 05/26/2021 5:33 AM [employer] [facility]ATORY [facility] - [facility] NEUTROPHILS 78 % 05/26/2021 5:33 AM CDT [employer] [facility] - [facility] LYMPHOCYTES 17 % 05/26/2021 5:33 AM [employer] [facility]ATORY SERVICES - [facility] MONOCYTES 4 % 05/26/2021 5:33 AM [employer] [facility]ATORY SERVICES - [facility] EOSINOPHILS 0 % 05/26/2021 5:33 AM [employer] [facility]ATORY SERVICES - [facility] BASOPHILS 0 % 05/26/2021 5:33 AM [employer] [facility]ATORY SERVICES - [facility] IMMATURE GRANULOCYTES 0 % 05/26/2021 5:33 AM [employer] LABORATORY SERVICES - [facility] NEUTROPHIL ABSOLUTE 5.31 1.90 - 7.00 K/uL 05/26/2021 5:33 AM [employer] LABORATORY SERVICES - [facility] LYMPHOCYTE ABSOLUTE 1.18 0.70 - 4.50 K/uL 05/26/2021 5:33 AM [employer] LABORATORY SERVICES - [facility] MONOCYTE ABSOLUTE 0.27 0.10 - 1.30 K/uL 05/26/2021 5:33 AM [employer] LAB[facility]ATORY SERVICES - [facility] EOSINOPHIL ABSOLUTE 0.01 0.00 - 0.70 K/uL 05/26/2021 5:33 AM [employer] LAB[facility]ATORY SERVICES - [facility] BASOPHILS ABSOLUTE 0.01 0.00 - 0.20 K/uL 05/26/2021 5:33 AM [employer] LABORATORY SERVICES - . [facility] IMMATURE GRANULOCYTES ABSOLUTE 0.02 0.00 - 0.03 K/uL 05/26/2021 5:33 AM [employer] LABORATORY SERVICES - 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 For endoscopic decompression of the biliary ductal system. Providers: Omar Gonzalez MD Referring MD: Rosibel Muse MD, Phil Ken MD Medicines: General Anesthesia Complications: No immediate complications. Procedure: Informed consent was obtained for the procedure, including moderate sedation after risks were discussed. Based on the pre-procedure assessment, including review of the patient's medical history, medications, allergies, and review of systems, the patient was deemed to be an appropriate candidate for sedation. A timeout was performed. Continuous ECG monitoring, pulse oximetry, blood pressure monitoring, and direct observation were performed. The Endoscope was introduced through the mouth, and advanced to the duodenum and used to inject contrast into the bile duct and ventral pancreatic duct. The ERCP was accomplished without difficulty. The patient tolerated the procedure well. Estimated Blood Loss: Estimated blood loss: none. Findings: The curve cleaner film was normal. The esophagus was successfully intubated under direct vision. The scope was advanced to the major papilla in the descending duodenum without detailed examination of the pharynx, larynx and associated structures, and upper GI tract. The duodenal lumen showed significant deformity with a large amount of adenomatous appearing tissue. There was significant compression of the duodenum. The endoscope was advanced beyond the area of adenomatous stricture and shorten and used fluoroscopic landmarks to evaluate for the biliary orifice. The pancreatic duct was initially cannulated using a 0.035 inch wire. The wire was advanced to the upstream pancreatic duct and left in position. Small amount of contrast was injected and showed a prominent to dilated pancreatic duct with stricturing at the level of the ampulla. The wire was left in position. A second 0.035 inch wire was then used to cannulate the common bile duct. Catheter advanced over the guidewire. Contrast was injected from the distal bile duct and showed a 15 mm stricture with a markedly dilated upstream biliary ductal system. The left and right hepatic ducts were well visualized opacified with contrast injection and were dilated. The cystic duct appeared patent with contrast entering. The gallbladder was not completely opacified. The cystic duct takeoff. To be within the mid bile duct at least 20 to 25 mm above the level of the stricture. A 7 to 8 mm biliary sphincterotomy was performed. A 7 Latvian by 9 cm pancreatic stent with internal and external flange was placed exiting the pancreatic orifice into the duodenum with good visible drainage of clear fluid. Biopsies were taken from the surrounding tissue within the sphincterotomy site at the level of the biliary orifice and sent for histologic review. A 10 mm x 4 cm fully covered self-expanding metallic Wallstent was placed within the distal bile duct across the stricture and suggested to be below the level of the cystic duct takeoff and showed brisk drainage of dark semiviscous bile. There was good visible drainage both on endoscopic and fluoroscopic evaluation. There was no bleeding at completion of the procedure. The patient tolerated the procedure well. Fluoroscopic images were personally reviewed and interpreted to guide the procedure. Impression: Marked abnormality within the duodenum with a significant amount of adenomatous luminal narrowing. Obliteration of the normal ampullary orifice. Identification of the pancreatic duct followed by the bile duct with placement of a pancreatic duct stent for decompression and a common bile duct stent for decompression. Good visible decompression at completion of procedure. Biopsies taken from the periampullary region near the biliary orifice post sphincterotomy and sent for histologic review. Recommendation: Post ERCP precautions. Follow clinically. Follow hepatic serology trends. Follow-up histology results. Return to hospital devi. Further management per primary medical team as well as medical and surgical oncology. Omar Gonzalez MD 05/25/2021 7:06:54 PM This report has been signed electronically. 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 For EUS evaluation and biopsy Providers: Omar Gonzalez MD Referring MD: Rosibel Muse MD, Phil Ken MD Medicines: General Anesthesia Complications: No immediate complications. Procedure: Informed consent was obtained for the procedure, including moderate sedation after risks were discussed. Based on the pre-procedure assessment, including review of the patient's medical history, medications, allergies, and review of systems, the patient was deemed to be an appropriate candidate for sedation. A timeout was performed. Continuous ECG monitoring, pulse oximetry, blood pressure monitoring, and direct observation were performed. The Endoscope was introduced through the mouth, and advanced to the third part of duodenum. The Radial Scope was introduced through the mouth, and advanced to the third part of duodenum. The Linear Scope was introduced through the mouth, and advanced to the third part of duodenum. Estimated Blood Loss: Estimated blood loss: none. Findings: The esophageal mucosa was without erythema or ulceration. The gastric mucosa showed mild patchy erythema without discrete ulcerations or erosions. The pylorus was patent. The duodenal bulb was normal however entering the second portion of the duodenum there was significant compression of the duodenum with visible abnormal adenomatous appearing tissue. The endoscope was able to traverse into the deeper third portion of the duodenum with significant compression of the duodenum but the lesion was soft. The duodenum and the third and fourth portion were normal in appearance. The radial echoendoscope was passed to the esophagus stomach and duodenum. Brief evaluation of the esophageal and gastric wall were unremarkable. The pancreas was initially evaluated from the neck to the tail with endoscope in the gastric position. The pancreatic parenchyma showed mild to moderate heterogeneous changes but was otherwise unremarkable. The pancreatic duct was prominent at 5 mm with a slight erratic course suggesting a downstream obstruction. There was no identifiable celiac lymphadenopathy. The endoscope was advanced distally to the proximal duodenum. The gallbladder was visualized and prominent with some layering sludge but otherwise without identifiable stones or wall thickening. The hepatic parenchyma was scanned and showed no identifiable densities. The common bile duct was dilated up to 14 mm and showed a abrupt taper within the head of the pancreas at the level of a moderately hypoechoic density just above the level of the ampulla but within the pancreatic parenchyma and/duodenal wall. There was significant amount of soft tissue density within the duodenum as well but with less hypoechoic density suggesting more benign tissue. There was a notable peripancreatic lymph node within the periportal space estimated to be approximately 12 to 14 mm. The pancreatic duct was prominent to dilated as well with an abrupt taper within the area of moderate hypoechoic density at the level of the ampulla. The linear echoendoscope was passed to the esophagus stomach and duodenum. Similar exam findings were noticed on the radial exam. From the duodenum the area of most significant hypoechoic density at the level of the abrupt caliber change of the common bile duct and pancreatic duct was targeted. After evaluation for vascular structures a 20-gauge core FNA/FNB needle was used to perform biopsies. Total of 4 biopsies were taken and sent for histologic review. The peripancreatic lymph node appeared to be obstructed by a vascular structure for attempt at FNA biopsy. The portal vein and SMA did not appear to involve the soft tissue density within the head of the pancreas. Impression: Soft tissue density at the level of the ampulla with significant adenomatous appearing volume within the duodenal lumen itself. EUS evaluation suggested a more hypoechoic density at the level of the ampulla/duodenal wall with some extension into the common bile duct and pancreatic duct. EUS guided biopsy performed using a 20-gauge core needle. Results pending. 12 mm peripancreatic lymph node not amenable to EUS biopsy. Recommendation: Follow-up histology results. We will plan for biliary decompression through ERCP as well as further forcep biopsies during ERCP. Return to hospital devi after ERCP procedure. Further management per medical and surgical oncology. Omar Gonzalez MD 05/25/2021 6:55:49 PM This report has been signed electronically. Number of Addenda: [phone] ; [place] [address] Omar Gonzalez MD GI PROCEDURE ORDERAB LES * XR ERCP BILIARY AND PANCREATIC (05/25/2021 5:45 PM CDT) Anatomical Region Laterality Modality Abdomen Computed Radiogr aphy 05/25/2021 5:46 PM CDT Impressions 05/25/2021 5:50 PM CDT IMPRESSION: As above. Fluoroscopy time: 2.3 minutes DICTATION LOCATION: Location 1 - [facility] Narrative 05/25/2021 5:50 PM CDT XR ERCP BILIARY AND PANCREATIC DATE: 05/25/2021 5:45 PM HISTORY: Fluoroscopic guidance COMPARISON: CT chest abdomen and pelvis 05/24/2021 FINDINGS: Intraoperative spot fluoroscopic guidance provided for ERCP. Refer to operative report for complete study details. Procedure Note Angelo Nayak MD - 05/25/2021 XR ERCP BILIARY AND PANCREATIC DATE: 05/25/2021 5:45 PM HISTORY: Fluoroscopic guidance COMPARISON: CT chest abdomen and pelvis 05/24/2021 FINDINGS: Intraoperative spot fluoroscopic guidance provided for ERCP. Refer to operative report for complete study details. IMPRESSION: As above. Fluoroscopy time: 2.3 minutes DICTATION LOCATION: Location 1 - [facility] Omar Gonzalze MD DIAGNOSTIC IMAGING O RDERABLES * PATHOLOGY (05/25/2021 5:13 PM CDT) CASE REPORT Surgical Pathology R eport ? Case: [id number] ? Authorizing Provider: ??Omar Gonzalez MD ?Collected: ? 05/25/2021 05:13 PM ? Ordering Location: ? [facility] [place] ??Received: ?05/26/2021 08:16 AM ? Pathologist: ? Sawyer Tovar MD ? Specimens: ?? A) - Other, specify, ampullary mass ? B) - Other, specify, ampulla bx ? 5:06 PM [facility] [employer] [facility] FINAL DIAGNOSIS Ampulla, mass , biopsy: - At least high-grade dysplasia/adenocarcinoma in situ (see microscopic description). Ampulla, biopsy: - Invasive adenocarcinoma, moderately differentiated. 5:06 PM [facility] [employer] [facility] S DESCRIPTION The specimens are received in two containers, each labeled Krissy Jaquez Jm . Received in the first container additionally labeled ampullary mass biopsy is a 3.0 x 2.0 x 0.1 cm aggregate of friable red-cuello tissue core/core fragments, which are filtered into a mesh bag and entirely submitted in cassette A1. Received in the second container additionally labeled ampulla biopsy are 3 pieces of pink-cuello tissue, ranging from 0.3 to 0.5 cm in greatest dimension. All are submitted in cassette B1. [facility] 5:06 PM [facility] [employer] [facility] MICROSCOPIC DESCRIPTION Received are slides labeled [id number], Jm,Krissy M. The submitted ampullary mass contain highly fragmented pieces of neoplastic glandular epithelium, with moderately increased N:C ratio, moderately abundant pink cytoplasm, round to focally pseudostratified nuclei, conspicuous single cell necrosis and scattered mitotic figures. The sampled tissue is superficial, with a minimal amount of attached stroma, precluding evaluation of invasion, but show focal glandular architectural complexity, characterized by [id number] glands and focal cribriform growth pattern, reflective of at least high-grade dysplasia/adenocarcinoma in situ. Couple cores of benign pancreatic tissue is also admixed. The submitted ampulla biopsy contains 3 pieces of ampullary/periampullary tissue, characterized by the presence of benign subepithelial glands, which are focally involved by invasive adenocarcinoma, characterized by irregular, angulated and focally abortive neoplastic glands and small nests within desmoplastic stroma. Lymphovascular and perineural invasion are not identified. The overlying mucosa focally appears to have a villous architecture, lined by focally architecturally complex neoplastic glandular epithelium, compatible with an associated adenomatous polyp, with high-grade dysplasia. The invasive carcinoma is diffusely positive for CK7, CK20 and CDX2 and negative for TTF-1. 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 1 5:06 PM [facility] OPERATIVE PROCEDURE 1: ULTRASOUND ENDOSCOPIC 2: CHOLANGIOPANCREATOGRAPHY RETROGRADE ENDOSCOPIC 3: ESOPHAGOGASTRODUODENOSCOP Y 1 5:06 PM [facility] CLINICAL INFORMATION A EUS/FNB pass 1-3 EUS/FNB pass 1-3 1 5:06 PM [facility] COMMENT Special stain and/or immunohistochemical results are interpreted with controls that demonstrate appropriate staining reactions. Note on use of immunocytochemistry reagents: This test was developed and its performance characteristics determined by [facility], Department of Laboratory Medicine. It has not [...] part or completely in the following laboratories: [facility], CLIA #[id number] [address] [place] [address] [facility], [place] #[id number] [address] [place] [address] [facility], CLIA #[id number] [address] [place] [address] This report was created with the [employer] voice-activated dictation system. Inherent to this system is the possibility of syntax, grammar, punctuation and other errors that could impact the interpretation of the report. If there are interpretative questions about aspects of this report, please contact the performing pathologist. 5:06 PM CDT [facility] Tissue (Other, specify) Collection / Unknown 05/25/2021 5:13 PM CDT 05/26/2021 8:16 AM CDT Comment:EUS/FNB pass 1-3 Tissue specimen (specimen) (Other, specify) Collection / Unknown 05/25/2021 5:28 PM CDT 05/26/2021 8:16 AM CDT Comment:ampulla mass Omar Gonzalez MD PATHOLOGY/CYTOLOGY O RDERABLES [facility] [id number] [address] [place] [address] * (ABNORMAL) HEPATIC FUNCTION PANEL (05/25/2021 5:19 AM CDT) TOTAL PROTEIN 6.9 6.7 - 8.6 g/dL 05/25/2021 6:24 AM CDT [facility]. [facility] ALBUMIN 3.8 3.5 - 5.2 g/dL 05/25/2021 6:24 AM CDT [facility]. [facility] BILIRUBIN TOTAL 2.4(H) 0.2 - 1.1 mg/dL 05/25/2021 6:24 AM CDT [facility]. [facility] BILIRUBIN DIRECT 1.9(H) <0.4 mg/dL 05/25/20 6:24 AM T [facility] LABORATORY [facility] ALKALINE PHOSPHATASE 392(H) 35 - 104 U/L 05/25/2021 6:24 AM T [facility] LABORATORY [facility]. [facility] AST 85(H) <33 U/L 05/25/2021 6:24 AM T [facility] LABORATORY [facility] ALT 77(H) <34 U/L 05/25/2021 6:24 AM T [facility] LABORATORY [facility] Blood Venipuncture / Unknown 05/25/2021 5:19 AM CDT 05/25/2021 5:48 AM CDT [facility] LABORATORY [facility] - 05/25/2021 6:24 AM CDT Samples containing indocyanine green cause interferences on Total and/or Direct Bilirubin and must not be measured. Maurice Giordano MD CHEMISTRY ORDERABLES [facility]# [id number] [address] [facility] [place] [address] * (ABNORMAL) BASIC METABOLIC PANEL (05/25/2021 5:19 AM CDT) SODIUM 139 136 - 145 mmol/L 05/25/2021 6:24 AM T [facility] POTASSIUM 3.9 3.5 - 5.0 mmol/L 05/25/2021 6:24 AM T [facility]. [facility] CHLORIDE 102 98 - 107 mmol/L 05/25/2021 6:24 AM T [facility]. [place] CO2 27 22 - 29 mmol/L 05/25/2021 6:24 AM T [facility] - . [place] CALCIUM 9.6 8.6 - 10.2 mg/dL 05/25/2021 6:24 AM T [facility]. [facility] BUN 7(L) 8 - 23 mg/dL 05/25/2021 6:24 AM T [facility]. [facility] CREATININE 0.69 0.51 - 0.95 mg/dL 05/25/2021 6:24 AM T [facility] [employer] [facility] GLUCOSE 159(H) 74 - 99 mg/dL 05/25/2021 6:24 AM T [facility] [employer] [facility] GFR >60 mL/min/1.7 3 sq meter 05/25/2021 6:24 AM T [facility] [employer] [facility] Comment: eGFR has not been validated for use in the elderly (> 70 years of age), women, patients with serious co-morbid conditions, or persons with extremes of body size or muscle mass and should also be interpreted with caution in patients with acute kidney failure, dialysis dependent patients, patients reporting exceptional dietary intake (e.g. vegetarian diet, high protein diets, creatine supplementation), and patients with severe liver disease. Based on National Kidney Disease Education Program If patient is , please refer to the GFR result. GFR, >60 mL/min/1.7 3 sq meter 05/25/2021 6:24 AM T [facility] [employer] [facility] ANION GAP 10 8 - 16 mmol/L 05/25/2021 6:24 AM T [facility] [employer] [facility] Blood Venipuncture / Unknown 05/25/2021 5:19 AM CDT 05/25/2021 5:48 AM CDT Maurice Giordano MD CHEMISTRY ORDERABLES [facility] Today [employer] [facility]# [id number] [address] [facility] [place] [address] * (ABNORMAL) CBC WITH DIFFERENTIAL (05/25/2021 5:19 AM CDT) WBC 5.6 4.0 - 9.8 K/uL 05/25/2021 6:00 AM T [facility] [employer] [facility] RBC 3.38(L) 3.90 - 4.90 M/uL 05/25/2021 6:00 AM T [employer] [facility] HEMOGLOBIN 9.1(L) 11.8 - 14.8 g/dL 05/25/2021 6:00 AM CDT [employer] LABORATORY SERVICES - [facility] HEMATOCRIT 28.1(L) 35.5 - 44.0 % 05/25/2021 6:00 AM CDT [employer] [facility]ATORY [facility] - [facility] MCV 83.1 82.0 - 99.0 fL 05/25/2021 6:00 AM CDT [employer] LABORATORY SERVICES - . [place] MCH 26.9(L) 27.2 - 32.6 pg 05/25/2021 6:00 AM CDT [employer] [facility]ORATORY SERVICES - . [place] MCHC 32.4 31.5 - 35.5 g/dL 05/25/2021 6:00 AM CDT [employer] LABORATORY SERVICES - . [place] RDW 14.5 11.5 - 14.5 % 05/25/2021 6:00 AM CDT [employer] LABORATORY SERVICES - . [facility] RDW-STDEV 43.2 37.1 - 48.7 fL 05/25/2021 6:00 AM [employer] LABORATORY SERVICES - [facility] PLATELETS 352(H) 140 - 350 K/uL 05/25/2021 6:00 AM [employer] LABORATORY SERVICES - [facility] MPV 10.0 9.3 - 12.4 fL 05/25/2021 6:00 AM CDT [employer] LABORATORY SERVICES - . [place] NEUTROPHILS 75 % 05/25/2021 6:00 AM [employer] LABORATORY SERVICES - . [place] LYMPHOCYTES 18 % 05/25/2021 6:00 AM [employer] [facility] MONOCYTES 6 % 05/25/2021 6:00 AM CDT [employer] [facility] EOSINOPHILS 0 % 05/25/2021 6:00 AM CDT [employer] [facility]ATORY SERVICES - . [place] BASOPHILS 0 % 05/25/2021 6:00 AM CDT [employer] [facility]ORATORY SERVICES - . [place] IMMATURE GRANULOCYTES 0 % 05/25/2021 6:00 AM CDT [employer] LABORATORY SERVICES - . [place] NEUTROPHIL ABSOLUTE 4.22 1.90 - 7.00 K/uL 05/25/2021 6:00 AM CDT [employer] LABORATORY SERVICES - . [facility] LYMPHOCYTE ABSOLUTE 1.03 0.70 - 4.50 K/uL 05/25/2021 6:00 AM CDT [employer] LABORATORY SERVICES - . [place] MONOCYTE ABSOLUTE 0.33 0.10 - 1.30 K/uL 05/25/2021 6:00 AM CDT [facility] - [facility] EOSINOPHIL ABSOLUTE 0.02 0.00 - 0.70 K/uL 05/25/2021 6:00 AM CDT [facility] - [facility] BASOPHILS ABSOLUTE 0.02 0.00 - 0.20 K/uL 05/25/2021 6:00 AM CDT [facility] - [facility] IMMATURE GRANULOCYTES ABSOLUTE 0.01 0.00 - 0.03 K/uL 05/25/2021 6:00 AM CDT [facility] - [facility] Blood Venipuncture / Unknown 05/25/2021 5:19 AM CDT 05/25/2021 5:48 AM CDT Maurice Giordano MD HEMATOLOGY ORDERABLE S [facility] [employer] [facility]# [id number] 5 [facility] [place] [address] * CT CHEST ABDOMEN PELVIS W CONT (05/24/2021 5:03 PM CDT) Anatomical Region Laterality Modality Chest Computed Tomogra phy 05/24/2021 5:22 PM CDT Narrative 05/25/2021 11:[address] CHEST, ABDOMEN AND PELVIS WITH IV CONTRAST WITH RECONSTRUCTED IMAGES DATE: 05/24/2021 5:03 PM HISTORY: Staging malignancy. ? COMPARISON: None. FINDINGS: CT of the chest, abdomen and pelvis is performed with intravenous and oral contrast. Imaging is performed from above the apices to below the symphysis pubis. Images are reconstructed in the axial, sagittal and coronal planes. Lung, liver, soft tissue and bone windows are reviewed. FINDINGS CT OF THE CHEST: There is a 1 cm nodule in the left lower lobe on slice 344 on series 304. Pleural thickening posteriorly in the left lung. No other nodules are seen in the lungs. There are small bilateral pleural effusions. Pleural thickening and enhancement on the right. The heart is mildly enlarged. There is no pericardial effusion. The thoracic aorta is tortuous but is otherwise unremarkable with no aneurysm or dissection. There is no mediastinal or hilar or axillary adenopathy in the chest. There are degenerative changes in the thoracic spine. IMPRESSION CT OF THE CHEST: 10 mm nodule in the left lower lobe. This is of uncertain etiology. Metastatic disease is not excluded. No other nodules in the lungs. Small bilateral pleural effusions. There is pleural thickening and/or nodularity noted in the right lower chest. Cardiomegaly. No other finding of the chest. There is no adenopathy. FINDINGS CT OF THE ABDOMEN AND PELVIS: There are multiple cysts in the liver. There is no evidence of hepatic metastatic disease. The hepatic and portal veins are patent. There is dilatation of the intrahepatic and extrahepatic bile ducts. The common bile duct measures up to 17 mm in diameter. There is abrupt obstruction of the common bile duct just above the ampulla due to mass obstructing the ampulla. This mass measures approximately 3.1 cm in AP dimension x 2.5 cm in craniocaudal dimension x 3.5 cm in transverse dimension. This mass produces obstruction of the common bile duct and the pancreatic duct which is also dilated throughout its course. The pancreas is otherwise unremarkable. The spleen, adrenal glands, and kidneys are unremarkable. There is no hydronephrosis. There is peripancreatic adenopathy identified with a node in the upper abdomen measuring 12 x 20 mm. No adenopathy is seen elsewhere in the abdomen or pelvis. The mass extends into the duodenum and narrows the duodenum. The mass is separate from the SMA and the SMV. There is a small amount of free fluid in the pelvis. The prostate is unremarkable. The bladder is unremarkable. There is no bowel obstruction or free air or other acute process. The appendix is normal. There are degenerative changes in the lumbar spine especially at L4-L5. There is no evidence of osseous metastatic disease. The bladder is unremarkable. The uterus is surgically absent. There is no bowel obstruction or free air or other acute process in the abdomen or pelvis. 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 This produces obstruction of the common bile duct and pancreatic duct which are both dilated. There may also be stenosis of the duodenum present. The mass does not appear to be adjacent to the SMA or SMV. There is no evidence of distant metastatic disease in the abdomen or pelvis. There are multiple cysts in the liver. The hepatic and portal veins are patent. DICTATION LOCATION: Location 2 - [facility] The examination was performed with the adjustment of mA according to the patient size and/or the use of Iterative [employer]construction Technique. ?? Procedure Note Pietro Worrell MD - 05/25/2021 CT CHEST, ABDOMEN AND PELVIS WITH IV CONTRAST WITH RECONSTRUCTED IMAGES DATE: 05/24/2021 5:03 PM HISTORY: Staging malignancy. COMPARISON: None. FINDINGS: CT of the chest, abdomen and pelvis is performed with intravenous and oral contrast. Imaging is performed from above the apices to below the symphysis pubis. Images are reconstructed in the axial, sagittal and coronal planes. Lung, liver, soft tissue and bone windows are reviewed. FINDINGS CT OF THE CHEST: There is a 1 cm nodule in the left lower lobe on slice 344 on series 304. Pleural thickening posteriorly in the left lung. No other nodules are seen in the lungs. There are small bilateral pleural effusions. Pleural thickening and enhancement on the right. The heart is mildly enlarged. There is no pericardial effusion. The thoracic aorta is tortuous but is otherwise unremarkable with no aneurysm or dissection. There is no mediastinal or hilar or axillary adenopathy in the chest. There are degenerative changes in the thoracic spine. IMPRESSION CT OF THE CHEST: 10 mm nodule in the left lower lobe. This is of uncertain etiology. Metastatic disease is not excluded. No other nodules in the lungs. Small bilateral pleural effusions. There is pleural thickening and/or nodularity noted in the right lower chest. Cardiomegaly. No other finding of the chest. There is no adenopathy. FINDINGS CT OF THE ABDOMEN AND PELVIS: There are multiple cysts in the liver. There is no evidence of hepatic metastatic disease. The hepatic and portal veins are patent. There is dilatation of the intrahepatic and extrahepatic bile ducts. The common bile duct measures up to 17 mm in diameter. There is abrupt obstruction of the common bile duct just above the ampulla due to mass obstructing the ampulla. This mass measures approximately 3.1 cm in AP dimension x 2.5 cm in craniocaudal dimension x 3.5 cm in transverse dimension. This mass produces obstruction of the common bile duct and the pancreatic duct which is also dilated throughout its course. The pancreas is otherwise unremarkable. The spleen, adrenal glands, and kidneys are unremarkable. There is no hydronephrosis. There is peripancreatic adenopathy identified with a node in the upper abdomen measuring 12 x 20 mm. No adenopathy is seen elsewhere in the abdomen or pelvis. The mass extends into the duodenum and narrows the duodenum. The mass is separate from the SMA and the SMV. There is a small amount of free fluid in the pelvis. The prostate is unremarkable. The bladder is unremarkable. There is no bowel obstruction or free air or other acute process. The appendix is normal. There are degenerative changes in the lumbar spine especially at L4-L5. There is no evidence of osseous metastatic disease. The bladder is unremarkable. The uterus is surgically absent. There is no bowel obstruction or free air or other acute process in the abdomen or pelvis. 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 This produces obstruction of the common bile duct and pancreatic duct which are both dilated. There may also be stenosis of the duodenum present. The mass does not appear to be adjacent to the SMA or SMV. There is no evidence of distant metastatic disease in the abdomen or pelvis. There are multiple cysts in the liver. The hepatic and portal veins are patent. DICTATION LOCATION: Location 2 - [facility] The examination was performed with the adjustment of mA according to the patient size and/or the use of Iter[employer]construction Technique. Nancy Suárez MD CT ORDERABLES * 2019 NOVEL CORONAVIRUS (COVID-19) PCR DETECTION (05/24/2021 1:45 PM CDT) COVID-19 PCR NOT DETECTED Not Detected 05/24/20 3:25 PM CDT [facility] [employer] [facility] PERFORMING LAB [facility] 05/24/2021 3:25 PM CDT [facility] Upper Respiratory ENTIRE NASOPHARYNX / Unknown Collection / Unknown 05/24/2021 1:45 PM CDT 05/24/2021 1:56 PM CDT [facility]ly [facility], [facility] [employer] [facility] - 05/24/2021 3:25 PM CDT This test has been authorized by the FDA under an Emergency Use Authorization for use by authorized laboratories.?? This test has been validated in accordance with the FDA's guidance regarding Coronavirus Disease-2019 testing.?? Optimum specimen types and timing for peak viral levels during infection have not been determined.?? A negative RT-PCR result does not rule out infection with the 2019-Novel Coronavirus. Romina Wilson PA-C MICROBIOLOGY - GEN ERAL ORDERABLES Performing Organization Address [facility]/ZIP Co de Phone Number [id number] [address] [place] [address] * (ABNORMAL) LIPASE (05/24/2021 5:45 AM CDT) LIPASE 1,453(H) 13 - 60 U/L 05/24/2021 7:37 AM CDT [facility] Blood Venipuncture / Unknown 05/24/2021 5:45 AM CDT 05/24/2021 6:09 AM CDT Maurice Giordano MD CHEMISTRY ORDERABLES Performing Organization Address [facility]/ZIP Co de Phone Number [facility]# [id number] [address] [place] [address] * (ABNORMAL) HEPATIC FUNCTION PANEL (05/24/2021 5:45 AM CDT) TOTAL PROTEIN 6.4(L) 6.7 - 8.6 g/dL 05/24/2021 7:31 AM CDT [facility]OR[facility] SERVICES [facility] ALBUMIN 3.5 3.5 - 5.2 g/dL 05/24/2021 7:31 AM CDT [facility]. [facility] BILIRUBIN TOTAL 2.5(H) 0.2 - 1.1 mg/dL 05/24/2021 7:31 AM CDT [facility]ORATORY SERVICES [facility]. [facility] BILIRUBIN DIRECT 2.0(H) <0.4 mg/dL 05/24/20 7:31 AM CDT [facility]. [facility] ALKALINE PHOSPHATASE 342(H) 35 - 104 U/L 05/24/2021 7:31 AM CDT [facility] LABORATORY SERVICES [facility]. [place] AST 73(H) <33 U/L 05/24/2021 7:31 AM [facility]ORY [facility] ALT 65(H) <34 U/L 05/24/2021 7:31 AM [facility] Blood Venipuncture / Unknown 05/24/2021 5:45 AM CDT 05/24/2021 6:09 AM CDT [facility] LABORATORY SERVICES [facility]. [place] - 05/24/2021 7:31 AM CDT Samples containing indocyanine green cause interferences on Total and/or Direct Bilirubin and must not be measured. Maurice Giordano MD CHEMISTRY ORDERABLES [facility]# [id number] 5 [facility] [address] [address] * (ABNORMAL) BASIC METABOLIC PANEL (05/24/2021 5:45 AM CDT) SODIUM 139 136 - 145 mmol/L 05/24/2021 7:31 AM [facility] LABORATORY SERVICES [facility] POTASSIUM 3.2(L) 3.5 - 5.0 mmol/L 05/24/2021 7:31 AM [facility]. [place] CHLORIDE 106 98 - 107 mmol/L 05/24/2021 7:31 AM [facility]. [place] CO2 23 22 - 29 mmol/L 05/24/2021 7:31 AM [facility]. [place] CALCIUM 8.9 8.6 - 10.2 mg/dL 05/24/2021 7:31 AM [facility]. [place] BUN 3(L) 8 - 23 mg/dL 05/24/2021 7:31 AM [facility]. [place] CREATININE 0.63 0.51 - 0.95 mg/dL 05/24/2021 7:31 AM [facility]. [place] GLUCOSE 110(H) 74 - 99 mg/dL 05/24/2021 7:31 AM [facility] LABORATORY SERVICES [facility]. [place] GFR >60 mL/min/1.7 3 sq meter 05/24/2021 7:31 AM CDT [employer] [facility] Comment: eGFR has not been validated for use in the elderly (> 70 years of age), women, patients with serious co-morbid conditions, or persons with extremes of body size or muscle mass and should also be interpreted with caution in patients with acute kidney failure, dialysis dependent patients, patients reporting exceptional dietary intake (e.g. vegetarian diet, high protein diets, creatine supplementation), and patients with severe liver disease. Based on National Kidney Disease Education Program If patient is , please refer to the GFR result. GFR, >60 mL/min/1.7 3 sq meter 05/24/2021 7:31 AM CDT [employer] LABORATORY [facility] ANION GAP 10 8 - 16 mmol/L 05/24/2021 7:31 AM CDT [employer] LABORATORY [facility] Blood Venipuncture / Unknown 05/24/2021 5:45 AM CDT 05/24/2021 6:09 AM CDT Maurice Giordano MD CHEMISTRY ORDERABLES [facility]# [id number] [address] [place] [address] documented in this encounter Visit Diagnoses Not on filedocumented in this encounter Administered Medications Inactive Administered Medications - up to 3 most recent administrations Medication Order MAR Action Action Date Dose Rate Site acetaminophen (TYLENOL) tablet 650 mg 650 mg, Oral, EVERY 6 HOURS PRN, Starting on Sat05/24/21 at 0512, Until Avani 06/01/21 at 2109, Other (See Comment), See admin instructions, Routine Given 05/29/2021 8:29 PM CDT 650 mg Given 05/28/2021 11:13 PM CDT 650 mg Given 05/28/2021 12:04 AM CDT 650 mg ALPRAZolam (XANAX) tablet 1 mg 1 mg, Oral, NIGHTLY PRN, Starting on Sat05/24/21 at 0510, Until Avani 06/01/21 at 2109, Anxiety, Routine, Previous Med: ALPRAZolam (XANAX) 1 mg tablet - Orig Sig - Take 1 mg by mouth nightly as needed for Anxiety. Given 05/31/2021 8:54 PM CDT 1 mg Given 05/30/2021 8:58 PM CDT 1 mg Given 05/29/2021 8:33 PM CDT 1 mg amLODIPine (NORVASC) tablet 2.5 mg 2.5 mg, Oral, DAILY, First dose on Sat05/27/21 at 1730, Until Discontinued, Routine Given 06/01/2021 10:24 AM CDT 2.5 mg Given 05/31/2021 9:20 AM CDT 2.5 mg Given 05/30/2021 8:39 AM CDT 2.5 mg atorvastatin (LIPITOR) tablet 10 mg 10 mg, Oral, DAILY AT BEDTIME, First dose on Sat05/24/21 at 2100, Until Discontinued, Routine Given 05/31/2021 8:54 PM CDT 10 mg Given 05/30/2021 8:58 PM CDT 10 mg Given 05/29/2021 8:29 PM CDT 10 mg ceFAZolin (ANCEF) 2,000 mg in dextrose (iso-osmotic) 100 mL IVPB (PREMIX) 2,000 mg, IV, EVERY 12 HOURS, 24 doses, First dose (after last reorder) on Sat05/31/21 at 2100, Last dose on Sat06/12/21 at 0900, Routine, Antibiotic Indication: Bacteremia, Is sepsis suspected? Unlikely New Bag 06/01/2021 10:40 AM CDT 2,000 mg 200 mL/hr New Bag 05/31/2021 8:56 PM CDT 2,000 mg 200 mL/hr dextrose 5 % in water 250 mL flush bag 25 mL 25 mL, IV, SEE ADMIN INSTRUCTIONS, Starting on Sat05/24/21 at 0527, Until Avani 06/01/21 at 2109, Routine docusate sodium (COLACE) capsule 100 mg 100 mg, Oral, TWO TIMES DAILY PRN, Starting on 05/27/21 at 1639, Until Avani 06/01/21 at 2109, Constipation, Routine enoxaparin (LOVENOX) injection 40 mg 40 mg, subCUT, EVERY 24 HOURS, First dose on Sat05/24/21 at 0900, Until Discontinued, Routine, Indication: Prophylaxis of VTE, Dose to be adjusted per facility protocol? Yes, On hold since Sat05/24/2021 at 1242 until manually unheld Given 05/24/2021 9:22 AM CDT 40 mg Abdomen, Left Lower Quadrant fluticasone propionate (FLONASE) 50 mcg/spray nasal inhaler 2 [place] 2 [place], Both Nostrils, DAILY, First dose on Sat05/24/21 at 0900, Until Discontinued, Routine, Previous Med: fluticasone propionate (FLONASE) 50 mcg/spray [place], Suspension nasal inhaler - Orig Sig - Administer 2 Sprays in each nostril daily. Patient/Family Admin 06/01/2021 9:00 AM CDT 2 Sprays Given 05/31/2021 9:25 AM CDT 2 Sprays Given 05/30/2021 8:48 AM CDT 2 Sprays hydrALAZINE (APRESOLINE) tablet 10 mg 10 mg, Oral, EVERY 6 HOURS, First dose on Sat05/26/21 at 1730, Until Discontinued, Routine Given 05/28/2021 12: 05 AM CDT 10 mg Given 05/27/2021 1:22 PM CDT 10 mg Given 05/27/2021 1:26 AM CDT 10 mg hydroCHLOROthiazide tablet 37.5 mg 37.5 mg, Oral, DAILY, First dose (after last modification) on Sat05/26/21 at 0900, Until Discontinued, Routine, Previous Med: hydroCHLOROthiazide 25 mg tablet - Orig Sig - Take 25 mg by mouth daily. Given 06/01/2021 10:26 AM CDT 37.5 mg Given 05/31/2021 9:20 AM CDT 37.5 mg Given 05/30/2021 8:38 AM CDT 37.5 mg HYDROcodone-acetaminophen (NORCO) 10-325 mg per tablet 1 Tablet 1 Tablet, Oral, EVERY 4 HOURS PRN, Starting on Sat05/26/21 at 1232, Until Avani 06/01/21 at 2109, Pain (See admin instructions), Routine HYDROcodone-acetaminophen (NORCO) 5-325 mg per tablet 1 Tablet 1 Tablet, Oral, EVERY 4 HOURS PRN, Starting on Sat05/24/21 at 0512, Until Avani 06/01/21 at 2109, Pain (See admin instructions), Routine Given 06/01/2021 10:35 AM CDT 1 Tablet Feeding Started 05/31/2021 7:09 PM CDT 1 Tablet Given 05/29/2021 7:15 PM CDT 1 Tablet indomethacin (INDOCIN) rectal suppository INTRA-PROCEDURE PRN, Starting on Avani 05/25/21 at 1712, Until Avani 05/25/21 at 1743, Routine, Intra-op Given 05/25/2021 5:12 PM CDT 100 mg iopamidoL (ISOVUE-370) 76 % injection (single-use vial) INTRA-PROCEDURE PRN, Starting on Avani 05/25/21 at 1732, Until Avani 05/25/21 at 1743, Routine, Intra-op Given 05/25/2021 5:32 PM CDT 10 mL Other (Comment) morphine 4 mg/mL injection 4 mg 4 mg, IV, EVERY 4 HOURS PRN, Starting on Sat05/24/21 at 0513, Until Avani 06/01/21 at 2109, Pain (See admin instructions), Routine Given 05/29/2021 12:54 PM CDT 4 mg Given 05/28/2021 12:32 PM CDT 4 mg Given 05/26/2021 7:32 PM CDT 4 mg pantoprazole (PROTONIX) tablet 40 mg 40 mg, Oral, DAILY BEFORE BREAKFAST, First dose on Sat05/24/21 at 0600, Until Discontinued, Routine, Indication: Gastroesophageal reflux disease (GERD) Given 06/01/2021 5:58 AM CDT 40 mg Given 05/31/2021 5:16 AM CDT 40 mg Given 05/30/2021 6:05 AM CDT 40 mg polyethylene glycol (MIRALAX) packet 17 Gram 17 Gram, Oral, TWO TIMES DAILY PRN, Starting on 05/27/21 at 1639, Until Avani 06/01/21 at 2109, Constipation, Routine quinapriL (ACCUPRIL) tablet 80 mg 80 mg, Oral, DAILY, First dose (after last modification) on Sat05/26/21 at 0900, Until Discontinued, Routine, Previous Med: quinapriL (ACCUPRIL) 40 mg tablet - Orig Sig - Take 40 mg by mouth daily. Given 06/01/2021 10:25 AM CDT 80 mg Given 05/31/2021 9:19 AM CDT 80 mg Given 05/30/2021 8:39 AM CDT 80 mg Saccharomyces boulardii (FLORASTOR) capsule 250 mg 250 mg, Oral, TWO TIMES DAILY, First dose on Sat05/31/21 at 1200, Until Discontinued, Routine Given 06/01/2021 10:25 AM CDT 250 mg Given 06/01/2021 2:20 AM CDT 250 mg Given 05/31/2021 1:53 PM CDT 250 mg sennosides (SENOKOT) tablet 8.6 mg 8.6 mg, Oral, DAILY PRN, Starting on Sat05/27/21 at 1639, Until Avani 06/01/21 at 2109, Constipation, Routine sertraline (ZOLOFT) tablet 50 mg 50 mg, Oral, DAILY AT BEDTIME, First dose on Sat05/24/21 at 2100, Until Discontinued, Routine, Previous Med: sertraline (ZOLOFT) 50 mg tablet - Orig Sig - Take 50 mg by mouth daily at bedtime. Given 05/31/2021 8:54 PM CDT 50 mg Given 05/30/2021 8:58 PM CDT 50 mg Given 05/29/2021 8:29 PM CDT 50 mg simethicone chewable tablet 40 mg 40 mg, Oral, EVERY 6 HOURS PRN, Starting on Sat05/26/21 at 2125, Until Sat06/01/21 at 2109, Gas, Routine Given 05/29/2021 9:37 AM CDT 40 mg Given 05/28/2021 12:32 PM CDT 40 mg Given 05/27/2021 3:08 PM CDT 40 mg sodium chloride 0.9 % 250 mL flush bag 25 mL 25 mL, IV, SEE ADMIN INSTRUCTIONS, Starting on Sat05/24/21 at 0527, Until Avani 06/01/21 at 2109, Routine sodium chloride flush injection 5 mL 5 mL, IV, EVERY 12 HOURS (BlD), First dose on Sat05/24/21 at 0900, Until Discontinued, Routine Given 06/01/2021 10:38 AM CDT 5 mL Given 05/31/2021 9:00 PM CDT 5 mL Given 05/31/2021 9:21 AM CDT 5 mL sodium chloride flush injection 5 mL 5 mL, IV, SEE ADMIN INSTRUCTIONS, Starting on Sat05/24/21 at 0527, Until Avani 06/01/21 at 2109, Routine documented in this encounter Active and Recently Administered Medications Times are shown in CDT. Scheduled Medication Order 05/30/2021 05/31/2021 06/01/2021 amLODIPine (NORVASC) tablet 2.5 mg 2.5 mg, Oral, DAILY, First dose on Sat05/27/21 at 1730, Until Discontinued, Routine 0839 (Given - Provider: Yamileth Suarez RN) 0920 (Given - Provider: Esperanza Charles RN) 1024 (Given - Provider: JOSE Zaldivar) atorvastatin (LIPITOR) tablet 10 mg 10 mg, Oral, DAILY AT BEDTIME, First dose on Sat05/24/21 at 2100, Until Discontinued, Routine 2057 (Given - Provider: JOSE Gannon) 2053 (Given - Provider: JOSE Gannon) ceFAZolin (ANCEF) 2,000 mg in dextrose (iso-osmotic) 100 mL IVPB (PREMIX) 2,000 mg, IV, EVERY 12 HOURS, 24 doses, First dose (after last reorder) on Sat05/31/21 at 2100, Last dose on Sat06/12/21 at 0900, Routine, Antibiotic Indication: Bacteremia, Is sepsis suspected? Unlikely 2055 (New Bag - Provider: JOSE Gannon)2125 (Stopped - Provider: JOSE Gannon) 1040 (New Bag - Provider: JOSE Zaldivar)1110 (Stopped - Provider: JOSE Zaldivar) cefePIME (MAXIPIME) 2,000 mg in sodium chloride 0.9% 50 mL IVPB (MBP) (CANCELED) 2,000 mg, IV, EVERY 12 HOURS (BlD), First dose (after last reorder) on Sat05/29/21 at 0900, Until Discontinued, Routine, Renally dose please, Antibiotic Indication: Bacteremia, Is sepsis suspected? Unlikely 0845 (New Bag - Provider: Yamileth Suarez RN)0846 (Rate Verify - Provider: Yamileth Suarez RN)0915 (Stopped - Provider: Yamileth Suarez RN)2057 (New Bag - Provider: JOSE Gannon)2127 (Stopped - Provider: JOSE Gannon) 1045 (New Bag - Provider: Esperanza Charles RN)1115 (Stopped - Provider: Esperanza Charles RN) dextrose 5 % in water 250 mL flush bag 25 mL 25 mL, IV, SEE ADMIN INSTRUCTIONS, Starting on Sat05/24/21 at 0527, Until Sat06/01/21 at 2109, Routine enoxaparin (LOVENOX) injection 40 mg 40 mg, subCUT, EVERY 24 HOURS, First dose on Sat05/24/21 at 0900, Until Discontinued, Routine, Indication: Prophylaxis of VTE, Dose to be adjusted per facility protocol? Yes, On hold since Sat05/24/2021 at 1242 until manually unheld 0900 (Automatically Held - Provider: TRAVIS St) 0900 (Not Given - Provider: JOSE Zaldivar - Reason: Route not available) 0900 (Not Given - Provider: JOSE Zaldivar - Reason: Route not available)2108 (Order Unhold - Provider: PROVIDER, DISCHARGE PATIENT) fluticasone propionate (FLONASE) 50 mcg/spray nasal inhaler 2 [place] 2 [place], Both Nostrils, DAILY, First dose on Sat05/24/21 at 0900, Until Discontinued, Routine, Previous Med: fluticasone propionate (FLONASE) 50 mcg/spray [place], Suspension nasal inhaler - Orig Sig - Administer 2 Sprays in each nostril daily. 0848 (Given - Provider: Yamileth Suarez RN) 0925 (Given - Provider: Esperanza Charles RN) 0900 (Patient/Family Admin - Provider: JOSE Zaldivar) hydrALAZINE (APRESOLINE) tablet 10 mg 10 mg, Oral, EVERY 6 HOURS, First dose on Sat05/26/21 at 1730, Until Discontinued, Routine 0000 (Not Given - Provider: JOSE Gannon - Reason: Patient condition)0600 (Not Given - Provider: JOSE Gannon - Reason: Patient condition - Comment: BP 115/78)1200 (Not Given - Provider: Yamileth Suarez RN - Reason: Patient condition)1800 (Not Given - Provider: Yamileth Suarez RN - Reason: Patient condition) 0000 (Not Given - Provider: JOSE Gannon - Reason: Patient condition - Comment: BP 122/70)0600 (Not Given - Provider: JOSE Gannon - Reason: Patient condition)1200 (Not Given - Provider: Esperanza Charles RN - Reason: Lab results - Comment: BP 115/67)1800 (Not Given - Provider: Esperanza Charles RN - Reason: Patient condition - Comment: BP 139/79) 0000 (Not Given - Provider: JOSE Gannon - Reason: Clarify-Other (Comment) - Comment: sbp <160)0600 (Not Given - Provider: JOSE Gannon - Reason: Clarify-Other (Comment))1300 (Not Given - Provider: JOSE Zaldivar - Reason: Patient condition)1800 (Not Given - Provider: JOSE Zaldivar - Reason: Patient off unit) hydroCHLOROthiazide tablet 37.5 mg 37.5 mg, Oral, DAILY, First dose (after last modification) on Sat05/26/21 at 0900, Until Discontinued, Routine, Previous Med: hydroCHLOROthiazide 25 mg tablet - Orig Sig - Take 25 mg by mouth daily. 0838 (Given - Provider: Yamileth Suarez RN) 0920 (Given - Provider: Esperanza Charles RN) 1026 (Given - Provider: JOSE Zaldivar) naloxone (NARCAN) 0.4 mg/mL injection 0.1 mg 0.1 mg, IV, SEE ADMIN INSTRUCTIONS, Starting on Sat05/24/21 at 0512, Until Sat06/01/21 at 2109, Routine pantoprazole (PROTONIX) tablet 40 mg 40 mg, Oral, DAILY BEFORE BREAKFAST, First dose on Sat05/24/21 at 0600, Until Discontinued, Routine, Indication: Gastroesophageal reflux disease (GERD) 0605 (Given - Provider: JOSE Gannon) 0516 (Given - Provider: JOSE Gannon) 0558 (Given - Provider: JOSE Gannon) potassium chloride (KLOR-CON) SR tablet 40 mEq (COMPLETED) 40 mEq, Oral, ONE TIME ONLY, 1 dose, On Sat05/30/21 at 1345, Routine 1427 (Given - Provider: Yamileth Suarez RN) potassium chloride 40 mEq in sodium chloride 0.9% 250 mL IVPB (COMPLETED) 40 mEq, IV, EVERY 4 HOURS, 2 doses, First dose on Sat05/30/21 at 1500, Last dose on Sat05/30/21 at 1900, at 76.25 mL/hr, Administer over 4 Hours, Routine 1446 (New Bag - Provider: Yamileth Suarez RN)1446 (Rate Verify - Provider: Yamileth Suarez RN)1447 (Paused - Provider: Yamileth Suarez RN)1447 (Rate Change - Provider: Yamileth Suarez RN)1448 (Paused - Provider: Yamileth Suarez RN)1452 (Restarted - Provider: Yamileth Suarez RN)1454 (Rate Change - Provider: Yamileth Suarez RN)1458 (Paused - Provider: Yamileth Suarez RN)1458 (Rate Change - Provider: Yamileth Suarez RN)1459 (Paused - Provider: Yamileth Suarez RN)1504 (Paused - Provider: Yamileth Suarez RN)1617 (Rate Change - Provider: Yamileth Suarez RN)1618 (Paused - Provider: Yamileth Suarez RN)1619 (Rate Change - Provider: Yamileth Suarez RN)1835 (Rate Verify - Provider: Yamileth Suarez RN)1846 (Stopped - Provider: JOSE Gannon)1900 (New Bag - Provider: JOSE Gannon)2300 (Stopped - Provider: Esperanza Charles RN) quinapriL (ACCUPRIL) tablet 80 mg 80 mg, Oral, DAILY, First dose (after last modification) on Sat05/26/21 at 0900, Until Discontinued, Routine, Previous Med: quinapriL (ACCUPRIL) 40 mg tablet - Orig Sig - Take 40 mg by mouth daily. 0839 (Given - Provider: Yamileth Suarez RN) 0919 (Given - Provider: Esperanza Charles RN) 1025 (Given - Provider: JOSE Zaldivar) Saccharomyces boulardii (FLORASTOR) capsule 250 mg 250 mg, Oral, TWO TIMES DAILY, First dose on Sat05/31/21 at 1200, Until Discontinued, Routine 1353 (Given - Provider: Esperanza Charles RN) 0220 (Given - Provider: JOSE Gannon - Comment: came from pharmacy)1025 (Given - Provider: JOSE Zaldivar) sertraline (ZOLOFT) tablet 50 mg 50 mg, Oral, DAILY AT BEDTIME, First dose on Sat05/24/21 at 2100, Until Discontinued, Routine, Previous Med: sertraline (ZOLOFT) 50 mg tablet - Orig Sig - Take 50 mg by mouth daily at bedtime. 2057 (Given - Provider: JOSE Gannon) 2053 (Given - Provider: JOSE Gannon) sodium chloride 0.9 % 250 mL flush bag 25 mL 25 mL, IV, SEE ADMIN INSTRUCTIONS, Starting on Sat05/24/21 at 0527, Until Avani 06/01/21 at 2109, Routine sodium chloride flush injection 5 mL 5 mL, IV, EVERY 12 HOURS (BlD), First dose on Sat05/24/21 at 0900, Until Discontinued, Routine 0900 (Given - Provider: Yamileth Suarez RN)2057 (Given - Provider: JOSE Gannon) 0921 (Given - Provider: Esperanza Charles RN)2099 (Given - Provider: JOSE Gannon) 1038 (Given - Provider: JOSE Zaldivar) sodium chloride flush injection 5 mL 5 mL, IV, SEE ADMIN INSTRUCTIONS, Starting on Sat05/24/21 at 0527, Until Avani 06/01/21 at 2109, Routine PRN Medication Order 05/30/2021 05/31/2021 06/01/2021 acetaminophen (TYLENOL) tablet 650 mg 650 mg, Oral, EVERY 6 HOURS PRN, Starting on Sat05/24/21 at 0512, Until Avani 06/01/21 at 2109, Other (See Comment), See admin instructions, Routine ALPRAZolam (XANAX) tablet 1 mg 1 mg, Oral, NIGHTLY PRN, Starting on Sat05/24/21 at 0510, Until Avani 06/01/21 at 2109, Anxiety, Routine, Previous Med: ALPRAZolam (XANAX) 1 mg tablet - Orig Sig - Take 1 mg by mouth nightly as needed for Anxiety. 2057 (Given - Provider: JOSE Gannon) 2053 (Given - Provider: JOSE Gannon) docusate sodium (COLACE) capsule 100 mg 100 mg, Oral, TWO TIMES DAILY PRN, Starting on Sat05/27/21 at 1639, Until Avani 06/01/21 at 2109, Constipation, Routine HYDROcodone-acetaminop hen (NORCO) 10-325 mg per tablet 1 Tablet 1 Tablet, Oral, EVERY 4 HOURS PRN, Starting on Sat05/26/21 at 1232, Until Avani 06/01/21 at 2109, Pain (See admin instructions), Routine HYDROcodone-acetaminop hen (NORCO) 5-325 mg per tablet 1 Tablet 1 Tablet, Oral, EVERY 4 HOURS PRN, Starting on Sat05/24/21 at 0512, Until Avani 06/01/21 at 2109, Pain (See admin instructions), Routine 190 (Feeding Started - Provider: Esperanza Charles RN) 103 (Given - Provider: JOSE Zaldivar) ipratropium-albuteroL (DUONEB) 0.5 mg-3 mg(2.5 mg base)/3 mL inhalation solution 3 mL 3 mL, Inhalation, EVERY 6 HOURS PRN RESPIRATORY, Starting on Sat05/24/21 at 0511, Until Avani 06/01/21 at 2109, Shortness of Breath, Wheezing, Routine morphine 4 mg/mL injection 4 mg 4 mg, IV, EVERY 4 HOURS PRN, Starting on Sat05/24/21 at 0513, Until Avani 06/01/21 at 2109, Pain (See admin instructions), Routine ondansetron (ZOFRAN ODT) tablet 4 mg 4 mg, Oral, EVERY 6 HOURS PRN, Starting on Sat05/24/21 at 0513, Until Avani 06/01/21 at 2109, Nausea/Emesis, Routine ondansetron (ZOFRAN) 4 mg/2 mL injection 4 mg 4 mg, IV, EVERY 6 HOURS PRN, Starting on Sat05/24/21 at 0513, Until Avani 06/01/21 at 2109, Nausea/Emesis, Routine polyethylene glycol (MIRALAX) packet 17 Gram 17 Gram, Oral, TWO TIMES DAILY PRN, Starting on 05/27/21 at 1639, Until Avani 06/01/21 at 2109, Constipation, Routine sennosides (SENOKOT) tablet 8.6 mg 8.6 mg, Oral, DAILY PRN, Starting on 05/27/21 at 1639, Until Avani 06/01/21 at 2109, Constipation, Routine simethicone chewable tablet 40 mg 40 mg, Oral, EVERY 6 HOURS PRN, Starting on 05/26/21 at 2125, Until Avani 06/01/21 at 2109, Gas, Routine documented in this encounter Additional Health Concerns Infection Onset Date Last Indicated Resolved Time R/O C. diff 05/24/2021 05/24/2021 05/24/2021 5:09 AM CDT R/O GI Pathogen 05/24/2021 05/24/2021 05/26/2021 6 :56 AM CDT R/O C. diff 05/31/2021 05/31/2021 05/31/2021 8:29 PM CDT documented as of this encounter Care Teams [employer] Relationship Specialty Start Date End Date Rosibel Muse MD PCP - General Family Practice 05/24/21 05/06/24 documented as of this encounter
--- OUTSIDE RECORDS SUMMARY | 2024-08-17 09:08 | XMS_ITS | Encounter Summary ---
[facility] Address [address] [place] [address] Care Team Providers Care Interior Assemblies Installer Name Role Phone Rosibel Muse MD Primary Care Provider Reason for Visit * Auth/Cert Specialty Diagnoses / Procedures Referred By Contac t Referred To Contact Oncology Diagnoses pancreatic and duodenal mass [facility] Oncology [address] [place] [id number] Referral ID Status Reason Start Date Expiration Date Visits Re quested Visits Authorized [id number] 1 1 Encounter Details Date Type Department Care Team (Late st Contact Info) Description 05/25/2021 4:17 PM CDT Anesthesia Event [facility] [address] [place] [address] Roula Dickens MD [address] [phone] Kayleigh Patrick MD [address] [place] [address] Anesthesia Record Procedure Summary Procedure Name Responsible Anesthesiologist Anesthesia Start Time Anesthesia Stop Time ULTRASOUND ENDOSCOPIC (Mouth) Roula Dickens MD 05/25/21 1617 05/25/21 1747 Events Date Time Event Comment 05/25/2021 1329 AN Equip Check Anesthesia eq uipment and materials checked in accordance with local policy. 1330 1544 AN Equip Check Anesthesia eq uipment and materials checked in accordance with local policy. 1617 An Start 1618 In Room This event disp lays the In Room time documented in the Surgical Log. Deleting this event will not remove it from the log but will remove it from the Grid and Graph timeline. 1619 An Start Data 1619 Pre-Induction Immediate pre- induction anesthetic assessment performed. Vital signs as noted on graphic. 1624 An Induction 1625 An Intubation 1630 Anesthesia Ready 1636 Procedure Start This event d isplays the Procedure Start time documented in the Surgical Log. Deleting this event will not remove it from the log but will remove it from the Grid and Graph timeline. 1732 Procedure Stop This event di splays the Procedure Stop time documented in the Surgical Log. Deleting this event will not remove it from the log but will remove it from the Grid and Graph timeline. 1741 An Extubation Emergence unev entful Awake, spontaneous respirations. Adequate muscle strength demonstrated Adequate tidal volume. Orapharynx suctioned. Extubated with positive pressure ventilation. 1743 Out of Room This event disp lays the Out of Room time documented in the Surgical Log. Deleting this event will not remove it from the log but will remove it from the Grid and Graph timeline. 1746 an stop data 1747 An Stop 05/26/2021 1333 Follow-up Complete Meds Name Total succinycholine (ANECTINE) 140 mg/7 mL iv syringe 120 mg lidocaine PF (XYLOCAINE MPF) 20 mg/mL sy ringe 60 mg propofol (DIPRIVAN) 10??mg/mL injection 160 mg famotidine (pf) (PEPCID) 20 mg/2 mL inje ction 20 mg dexamethasone (DECADRON) 4 mg/mL injecti on 4 mg fentaNYL (SUBLIMAZE) PF 50??mcg/mL injec tion 50 mcg diphenhydrAMINE (BENADRYL) 50 mg/mL inje ction 25 mg lactated ringers infusion 1,200 mL * Agents Name Air Sevoflurane % Sevoflurane O2 N2O Inspired N2O O2 * Blood No blood administrations on file. Lines, Drains, and Airways Type Details Placement Removal Peripheral IV Pre-Hospital Start: No; Orientation: Right, Lower, Inner; Location: Arm; Gauge: 20 gauge; Needle Length: (1.75); Insertion Attempts: 1; Patient Tolerance: tolerated well; Power Injectable Compatible: Yes; Removal Indication: site symptomatic; Removal Interventions: pressure dressing 05/24/21 1417 by Sushant Downing RN 05/29/21 1320 by Esperanza Charles RN Endotracheal Airway Type: ETT; Size: 7; Attempts: 1; Verification: Auscultated bilateral breath sounds, Equal chest movement, Continuous waveform capnography 05/25/21 1632 by Mary Jo Heller AA-C 05/25/21 174 by Roula Dickens MD documented in this encounter Social History Tobacco [...] PM CDT documented as of this encounter OR Notes * Anesthesia Post-Op Follow-up Note - Kayleigh Zamarripa RN - 05/26/2021 1:33 PM CDT 05/26/2021 1:33 PM Krissy Oneal No apparent Anesthesia related complications Kayleigh Zamarripa RN * Anesthesia Postprocedure Evaluation - Roual Dickens MD - 05/25/2021 6:17 PM CDT Post Anesthesia Evaluation Vitals: Vitals Value Taken Time BP 172/96 05/25/21 1808 Temp 36.1 ??C 05/25/21 1745 Resp 16 05/25/21 1808 SpO2 97 % 05/25/21 1808 Pulse 74 05/25/21 1808 Heart Rate Pain Rating: Pain Rating: Rest: 6 (05/25/21 1245) Pain Rating: Activity: 8 (05/24/21 1221) Anesthesia Post Evaluation Phase I Postanesthesia Evaluation Including Modified Sera Score Patient seen and evaluated: Modified Sera Score: Score: 10 (05/25/211800) COMMENTS: No apparent Anesthesia related complications RESPIRATORY FUNCTION: Respiration: able to breath and cough freely (05/25/211800) [2=able to breathe and cough freely, 1=dyspnea, limited breathing or tachypnea, 0=apnea or mechanicventilator] O2 Saturation: able to maintain O2 saturation greater than 92% on room air (05/25/211800) [2=able to maintain O2 saturation greater than 92% on room air, 1=needs O2 inhalation to maintain O2 saturation greater than 90%, 0=O2 saturation less than 90% even with O2 supplement] Resp: 16 (05/25/211807)SpO2: 97 % (05/25/211807) CARDIOVASCULAR FUNCTION: BP: (!) 172/96 (05/25/211807) Circulation: BP within 20% of preanesthetic level (05/25/211800) [2=BP within 20% of preanesthetic level, 1=BP within 20-49% of preanesthetic level, 0=BP within 50%of preanesthetic level] MENTAL STATUS, NEURO, ACTIVITY: PATIENT PARTICIPATION IN EVALUATION:yes Consciousness: fully awake (05/25/211800) [2=fully awake, 1=arousable on calling, 0=not responding] Activity: able to move 4 extremities voluntarily or on command (05/25/211800) [2=able to move 4 extremities voluntarily or on command, 1=able to move 2 extremities voluntarily or on command, 0=unable to move extremities voluntarily or on command] TEMPERATURE: Temp: 36.1 ??C (05/25/211744) PAIN: Pain Rating: Rest: 6 (05/25/21 1245) Presence of Pain: denies pain/discomfort (05/25/211752) NAUSEA AND VOMITING: no nausea and no vomiting POSTOPERATIVE HYDRATION: well hydrated Intake/Output Summary (Last 24 hours) at 05/25/20211816 Last data filed at 05/25/2021 1744 Gross per 24 hour Intake 1898.92 ml Output -- Net 1898.92 ml Roula Dickens MD 05/25/2021 6:17 PM Roula Dickens MD * Anesthesia Handoff - Roula Dickens MD - 05/25/2021 5:47 PM CDT Post-Anesthetic transfer of care report [...] and acknowledgement of understanding. Vital Signs: BP: (!) 173/95 (05/25/2021 5:45 PM) Pulse: 73 (05/25/2021 5:45 PM) Temp: 36.1 ??C (05/25/2021 5:45 PM) Resp: 16 (05/25/2021 5:45 PM) SpO2: 98 % (05/25/2021 5:45 PM) 5:47 PM Roula Dickens MD * Anesthesia Procedure Notes - Mary Jo Heller AA-C - 05/25/2021 4:31 PM CDT Associated Order(s): Airway Airway Location: OR Plan: routine intubation Patient Identity Confirmed by: Verbally with patient and armband Indications and Patient Condition: Indications for Airway Management: Anesthesia Preoxygenated: Yes Patient Position: Sniffing Mask Difficulty Assessment: 0 - not attempted Plan to extubate at end of case: Yes Final Airway Details: Final Airway Type: Endotracheal airway Final Endotracheal Airway: ETT Cuffed: Yes Cuff Volume (mL): 8 Technique Used for Successful ETT Placement: Direct laryngoscopy Devices/Methods Used in Placement: Curved blade Insertion Site: Oral Laryngoscope Blade/Videolaryngoscope Blade Size: 3 ETT Size (mm): 7.0 Measured from: Teeth ETT to Teeth (cm): 21 Tube secured with: Tape Placement Verified by: auscultation, end tidal CO2 and chest rise Cormack-Lehane Classification: Grade IIa - partial view of glottis Number of Attempts at Approach: 1 * Anesthesia Preprocedure Evaluation - Kayleigh Patrick MD - 05/25/2021 1:29 PM CDT Relevant Problems No relevant active problems Anesthesia Evaluation Patient summary reviewed Airway Mallampati: I TM distance: >3 FB Neck ROM: full Dental (+) upper dentures Pulmonary - normal exam (+) COPD, Cardiovascular - normal exam (+) hypertension, Neuro/Psych - negative ROS GI/Hepatic/Renal Comments: Pancreatic mass Endo/Other - negative ROS Abdominal Anesthesia History Anesthesia Plan ASA Final: 3 MAC N/A induction Oral ETT airway maintenance NPO status > 8 hours Anesthetic plan and risks discussed with Patient. Plan discussed with Nurse Patternmaker All Around. Smoking Compliance Patient did not smoke on day of surgery documented in this encounter Miscellaneous Notes * Addendum Note - Kayleigh Zamarripa RN - 05/26/2021 1:34 PM CDT Addendum created 05/26/21 1334 by Kayleigh Zamarripa RN Clinical Note Signed, Intraprocedure Event edited documented in this encounter Plan of Treatment Upcoming Encounters Date Type Department Care Team (Late st Contact Info) Description 08/25/2024 2:00 PM REWARDS CONSULTANT Office Visit [facility] Oncology and Hematology - [place] [address] [facility] [address] [place] [address] Royal Newell MD [address] [facility] [address] [place] [address] documented as of this encounter Procedures Procedure Name Priority Date/Time Associated Diagnosis Comments MI ANES INSERT ENDOTRACHEAL AIRWAY Routine 05/25/2021 4:31 PM CDT documented in this encounter Results * MI ANES INSERT ENDOTRACHEAL AIRWAY (05/25/2021 4:31 PM CDT) Narrative Mary Jo Heller AA-C - 05/25/2021 4:31 PM CDT Mary Jo Heller AA-C ? 05/25/2021 ??4:32 PM Airway Location: OR Plan: routine intubation Patient Identity Confirmed by: ??Verbally with patient and armband Indications and Patient Condition: ??Indications for Airway Management: ??Anesthesia ??Preoxygenated: Yes ?Patient Position: ??Sniffing ??Mask Difficulty Assessment: ??0 - not attempted ??Plan to extubate at end of case: Yes ?? Final Airway Details: ??Final Airway Type: ??Endotracheal airway ??Final Endotracheal Airway: ??ETT ??Cuffed: Yes ?Cuff Volume (mL): ??8 ??Technique Used for Successful ETT Placement: ??Direct laryngoscopy ??Devices/Methods Used in Placement: ??Curved blade ??Insertion Site: ??Oral ??Laryngoscope Blade/Videolaryngoscope Blade Size: ??3 ??ETT Size (mm): ??7.0 ??Measured from: ??Teeth ??ETT to Teeth (cm): ??21 ??Tube secured with: ??Tape ??Placement Verified by: auscultation, end tidal CO2 and chest rise ?Cormack-Lehane Classification: ??Grade IIa - partial view of glottis ??Number of Attempts at Approach: ??1 Nancy Suárez MD PROCEDURE/MINOR SURG ICAL ORDERABLES documented in this encounter Visit Diagnoses Not on filedocumented in this encounter Administered Medications Inactive Administered Medications - up to 3 most recent administrations Medication Order MAR Action Action Date Dose Rate Site dexamethasone (DECADRON) 4 mg/mL injection IV, INTRA-PROCEDURE PRN, Starting on Avani 05/25/21 at 1635, Until Avani 05/25/21 at 1748, Routine, Anesthesia Intra-op Given 05/25/2021 4:35 PM CDT 4 mg diphenhydrAMINE (BENADRYL) injection IV, INTRA-PROCEDURE PRN, Starting on Avani 05/25/21 at 1714, Until Avani 05/25/21 at 1748, Routine, Anesthesia Intra-op Given 05/25/2021 5:14 PM CDT 25 mg famotidine PF (PEPCID) 20 mg/2 mL injection IV, INTRA-PROCEDURE PRN, Starting on Avani 05/25/21 at 1555, Until Avani 05/25/21 at 1748, Routine, Anesthesia Intra-op Given 05/25/2021 3:55 PM CDT 20 mg fentaNYL PF (SUBLIMAZE) 50 mcg/mL injection IV, INTRA-PROCEDURE PRN, Starting on Avani 05/25/21 at 1650, Until Avani 05/25/21 at 1748, Routine, Anesthesia Intra-op Given 05/25/2021 4:58 PM CDT 25 mcg Given 05/25/2021 4:50 PM CDT 25 mcg lactated ringers infusion IV, at 125 mL/hr, PRE-PROCEDURE CONTINUOUS, Starting on Avani 05/25/21 at 1300, Until Avani 05/25/21 at 1854, Routine, Pre-Procedure New Bag 05/25/2021 4:59 PM CDT Continue from Pre-Op 05/25/2021 4:17 PM CDT 125 mL/hr New Bag 05/25/2021 12:53 PM CDT 125 mL/hr lidocaine (PF) (XYLOCAINE MPF) 60 mg/3 mL (2 %) injection syringe IV, INTRA-PROCEDURE PRN, Starting on Avani 05/25/21 at 1624, Until Avani 05/25/21 at 1748, Routine, Anesthesia Intra-op Given 05/25/2021 4:24 PM CDT 60 mg propofoL (DIPRIVAN) injection IV, INTRA-PROCEDURE PRN, Starting on Avani 05/25/21 at 1624, Until Avani 05/25/21 at 1748, Anesthesia Intra-op Given 05/25/2021 4:50 PM CDT 30 mg Given 05/25/2021 4:36 PM CDT 30 mg Given 05/25/2021 4:24 PM CDT 100 mg succinylcholine Chloride (ANECTINE) 140 mg/7 mL (20 mg/mL) injection IV, INTRA-PROCEDURE PRN, Starting on Avani 05/25/21 at 1624, Until Avani 05/25/21 at 1748, Routine, Anesthesia Intra-op Given 05/25/2021 4:24 PM CDT 120 mg documented in this encounter Additional Health Concerns Infection Onset Date Last Indicated Resolved Time R/O GI Pathogen 05/24/2021 05/24/2021 05/26/2021 6 :56 AM CDT Assessment Noted Time PHQ-9 Depression Total Score: 1 05/24/20 4:05 AM CDT documented as of this encounter Care Teams Interior Assemblies Installer Relationship Specialty Start Date End Date Rosibel Muse MD PCP - General Family Practice 05/24/21 05/06/24 documented as of this encounter
--- OUTSIDE RECORDS SUMMARY | 2024-08-17 09:08 | XMS_ITS | Encounter Summary ---
Author Organization [facility] Address [address] [place] [address] Care Team Providers Care Inhalation Therapy Aides Teacher Name Role Phone Rosibel Muse MD Primary Care Provider [phone] Reason for Visit * Auth/Cert Specialty Diagnoses / Procedures Referred By Contac t Referred To Contact Oncology Diagnoses pancreatic and duodenal mass [facility] Oncology [address] [place] [address] Referral ID Status Reason Start Date Expiration Date Visits Re quested Visits Authorized [id number] 1 1 Encounter Details Date Type Department Care Team (Latest Contact Info) Description 05/24/2021 3:30 AM CDT - 06/01/2021 4:43 PM CDT Hospital Encounter [facility] Oncology [address] [place] [address] Clifford Rodriguez MD 6[address] [facility] [address] [place] [phone] Maurice Giordano MD 621 [facility] [address] [place] [address] Nancy Suárez MD 6[address] [facility] [address] [facility] [place] [address] Lanny Coleman MD [address] [address] Pancreatic mass Discharge Disposition: Home or Self Care Social [...] Sign Reading Time Taken Comments Blood Pressure 111/66 06/01/2021 1:34 PM CDT Pulse 73 06/01/2021 1:34 PM CDT Temperature 36.6 ??C (97.8 ??F) 06/01/2021 1:34 PM CD T Respiratory Rate 16 06/01/2021 1:34 PM CDT Oxygen Saturation 97% 06/01/2021 1:34 PM CDT Inhaled Oxygen Concentration - - Weight 68 kg (149 lb 14.4 oz) 05/27/2021 7:42 PM CDT Height 157.5 cm (5' 2 ) 05/27/2021 7:42 PM CDT Body Mass Index 27.42 05/27/2021 7:42 PM CDT documented in this encounter Discharge Summaries * Lanny Coleman MD - 06/01/2021 3:05 PM CDT [facility] Adult Hospitalist Discharge Summary Krissy Oneal 65 y.o. female 1955 CSN: [id number] Date of Admission: 05/24/2021 Date of Discharge: [...] 6 Tablet Refills: 0 naloxone 4 mg/spray [place], Non-Aerosol Commonly known as: NARCAN EMERGENCY USE [...] daily. Refills: 0 fluticasone propionate 50 mcg/spray [place], Suspension nasal inhaler Commonly known as: FLONASE [...] Your Medications These [facility] [address] [facility] [address] Hours: Retail 8 AM - 12 AM Daily / ED Service 10 AM - 12 AM Daily ?? cephALEXin 500 mg capsule ?? HYDROcodone-acetaminophen 10-325 mg Tablet ?? naloxone 4 mg/spray [place], Non-Aerosol ?? ondansetron 4 mg Tablet, Rapid [...] and portal veins are patent. DICTATION LOCATION: [address] The examination was performed with the adjustment of mA according to the patient size and/or the use of Iterative Reconstruction Technique. CASE REPORT ? Surgical Pathology Report Case: [id number] Authorizing Provider: Omar Gonzalez MD Collected: 05/25/2021 05:13 PM Ordering Location: [facility] Received: 05/26/2021 08:16 AM Pathologist: Sawyer Tovar MD Specimens: A) - Other, specify, ampullary mass B) - Other, specify, ampulla bx ? FINAL DIAGNOSIS ? Ampulla, mass , biopsy: - At least high-grade dysplasia/adenocarcinoma in situ (see microscopic description). ?? Ampulla, biopsy: - Invasive adenocarcinoma, moderately differentiated. ? GROSS DESCRIPTION ? The specimens are received in two containers, each labeled January M White . ?? Received in the first container [...] MICROSCOPIC DESCRIPTION ? Received are slides labeled [id number], White,January M. ?? The submitted ampullary mass contain highly fragmented pieces of neoplastic glandular epithelium,with moderately increased N:C ratio, moderately abundant pink cytoplasm, round to focally pseudostratified nuclei, conspicuous single cell necrosis and scattered mitotic figures. The sampled tissue is superficial, with a minimal amount of attached stroma, precluding evaluation of invasion, but showfocal glandular architectural complexity, characterized by dybe-ts-xlce glands and focal cribriformgrowth pattern, reflective of [...] developed and its performance characteristics determined by [facility], Department of Laboratory Medicine.?? It has not [...] or completely in the following laboratories: ?? [facility], CLIA #[id number] [address] [place] [address] [facility] CLIA #[id number] [address] [place] [address] [facility], [place] #[id number] [address] [address] [place] [address] Labs from this Hospitalization Needing Follow Up: [...] cpap, who presents as a transfer from [facility] for abdominal pain, pancreatitis, ampullary mass and admitted for surgical/ whippleevaluation. Ampullary mass - concern for malignancy - biopsy done at OSH on 05/22, results of invasive, moderately differentiated ampullary adenocarcinoma; S/p EUS/ERCP 05/[address] Gonzalez (7 to 8 mm biliary sphincterotomy was performed. A 7 Monegasque by 9 cm pancreatic stent with internal [...] p will like to f/u onc at [place] closer to home with Dr. Newell. Abd [...] 5 days. Follow up with Dr. Royal Newell [facility] in 1 week. More than 50 minutes were spent in this discharge activity. Signed: Lanny Coleman MD 06/01/2021, 3:06 PM documented in this encounter Discharge Instructions * Discharge Instructions* Lanny Coleman MD - 06/01/2021 2:59 PM CDT Your discharging physician is Lanny Coleman MD and may be reached at [phone] for any questionsor concerns until you see [...] for Anxiety. fluticasone propionate (FLONASE) 50 mcg/spray [place], Suspension nasal inhaler Administer 2 Sprays in [...] Coleman MD - 05/31/2021 10:53 AM CDT [facility] Adult Hospitalist Progress Note Admit Date: 05/24/2021 [...] Range CASE REPORT Surgical Pathology Report Case: [id number] Authorizing Provider: Omar Gonzalez MD Collected: 05/25/2021 05:13 PM Ordering Location: [facility] GI Lab [facility] Received: 05/26/2021 08:16 AM Pathologist: Sawyer [...] dimension. All are submitted in cassette B1. [facility] MICROSCOPIC DESCRIPTION Received are slides labeled [id number], White,January. The submitted ampullary mass contain highly fragmented pieces of neoplastic glandular epithelium,with moderately increased N:C ratio, moderately abundant pink cytoplasm, round to focally pseudostratified nuclei, conspicuous single cell necrosis and scattered mitotic figures. The sampled tissue is superficial, with a minimal amount of attached stroma, precluding evaluation of invasion, but showfocal glandular architectural complexity, characterized by rtsz-qa-pdry glands and focal cribriformgrowth pattern, reflective of [...] developed and its performance characteristics determined by [facility], Department of Laboratory Medicine. It has [...] part or completely in the following laboratories: [facility], [place] #[id number] [address] [place] [address] [facility], CLIA #[id number] [address] [place] [address] [facility], [place] #[id number] [address] [facility] [place] [address] This report was created with the Technology Keiretsu voice-activated dictation system. Inherent to this system [...] p will like to f/u onc at [facility] to home. No abd pain this morning. Continue norco 5/325 mg, added norco 10/325 mg prn and continue IV morphine, watch vitals closely. Continue pain meds before PO intake as needed as that is when she has the most discomfort. 2. Klebsiella bacteremia - temp 100.4 on 10 PM. Suspect related to stent placement. blood cultures 4/4 positive for klebsiella variicola. S/p cipro/flagyl due to PCN allergy but changed to cefepime 2 gm BID. After consultation with ID pharm, switched to IV Cefazolin 2g BID per susceptibility panel and anticpate transition to Keflex 500mg TID for complete 14 days of therapy. Monitor labs, had temp 103 05/29 PM. 3. Elevated LFTs - likely related [...] Coleman MD - 05/30/2021 10:05 AM CDT [facility] Adult Hospitalist Progress Note Admit Date: 05/24/2021 [...] Range CASE REPORT Surgical Pathology Report Case: [id number] Authorizing Provider: Omar Gonzalez MD Collected: 05/25/2021 05:13 PM Ordering Location: [facility] GI Lab [facility] Bill Received: 05/26/2021 08:16 AM Pathologist: Sawyer Tovar MD Specimens: A) - Other, specify, ampullary mass B) - Other, specify, ampulla bx FINAL DIAGNOSIS Ampulla, mass , biopsy: - At least high-grade dysplasia/adenocarcinoma in situ (see microscopic description). Ampulla, biopsy: - Invasive adenocarcinoma, moderately differentiated. GROSS DESCRIPTION The specimens are received in two containers, each labeled January . Received in the first container additionally [...] dimension. All are submitted in cassette B1. [facility] MICROSCOPIC DESCRIPTION Received are slides labeled [id number], White,January. The submitted ampullary mass contain highly fragmented pieces of neoplastic glandular epithelium,with moderately increased N:C ratio, moderately abundant pink cytoplasm, round to focally pseudostratified nuclei, conspicuous single cell necrosis and scattered mitotic figures. The sampled tissue is superficial, with a minimal amount of attached stroma, precluding evaluation of invasion, but showfocal glandular architectural complexity, characterized by aozf-ei-qzfp glands and focal cribriformgrowth pattern, reflective of [...] developed and its performance characteristics determined by [facility], Department of Laboratory Medicine. It has [...] part or completely in the following laboratories: [facility], [place] #[id number] [address] [place] [address] [facility], [place] #[id number] [address] [place] [address] [facility], [place] #[id number] [address] [place] [address] This report was created with the Technology Keiretsu voice-activated dictation system. Inherent to this system [...] is still following pt, input appreciated - Datippmary, timing TBD. CT CAP done, No obvious distant mets. Heme-onc consulted. At ne p will like to f/u onc at [facility] to home. No abd pain [...] Suárez MD - 05/29/2021 1:49 PM CDT [facility] Adult Progress Note Admit Date: 05/24/2021 Date [...] my read. Pt will f/u onc at [place] closer to home. Still having pain - continue norco 5/325 mg, added norco 10/325 mg and continues IV morphine, watch vitals closely. Encourage pain meds before PO intakeas that is when she has the most discomfort. 2. Klebsiella bacteremia - temp 100.4 on 1016 PM - blood cultures sent yesterday and [...] Activity Order: Present Activity: in bed (05/28/21 2296) Marroquin catheter:absent Current Code Status -Full Code [...] MCV 83.4 86.3 85.3 BMP: Recent Labs 05/27/2157 05/28/2118 05/29/21 0529 NA 136 139 132* K 3.3* 3.2* 3.3* CL 92* 95* 92* CO2 28 31* 28 ANIONGAP 16 13 12 CA 10.0 9.2 8.9 GLUCOSE 122* 111* 110* BUN 7* 6* 7* CREAT 0.90 0.75 0.91 OTHER LYTES: Recent Labs 05/29/21 0529 MG 1.8 AccuCheks: No results for input(s): GLUCPOC in the last 72 hours. LFTs: Recent Labs 05/27/2155605/28/2161705/29/21 0529 TOTALPROTEIN 8.0 7.2 6.9 BILITOTAL 1.7* 1.1 0.9 ALKPHOS 573* 398* 314* ALBUMIN 4.2 3.8 3.3* ALT 128* 70* 50* AST 140* 34* 27 Coagulation: No results for input(s): PT, INR, APTT in the last 72 hours. Nancy Suárez MD [facility] Message via secure chat (7 AM to 7 PM) Virtual ticket system (7PM to 7AM) * Marisa Williamson PA - 05/28/2021 11:27 PM CDT [facility] 05/28/21 11:27 PM Contacted [...] Suárez MD - 05/28/2021 4:31 PM CDT [facility] Adult Progress Note Admit Date: 05/24/2021 Date [...] my read. Pt will f/u onc at [place] closer to home. Still having pain - [...] ??F (38 ??C) Small amount stool (05/27/21 1609) Exam: Gen alert, cooperative, no distress, appears [...] ones are noted below CBC: Recent Labs 05/26/21 0457 05/27/21 0557 05/28/21 0618 WBC 6.8 11.0* 7.1 HGB 9.8* 10.8* 10.1* HCT 30.4* 34.2* 32.0* PLT 379* 415* 356* MCV 84.4 83.4 86.3 BMP: Recent Labs 05/26/2145605/27/2157 05/28/21 0618 NA 140 136 139 K 3.3* 3.3* 3.2* CL 100 92* 95* CO2 27 28 31* ANIONGAP 13 16 13 CA 9.8 10.0 9.2 GLUCOSE 99 122* 111* BUN 6* 7* 6* CREAT 0.64 0.90 0.75 OTHER LYTES:No results for input(s): MG, PO4 in the last 72 hours. AccuCheks: No results for input(s): GLUCPOC in the last 72 hours. LFTs: Recent Labs 05/26/2145605/27/2157 05/28/21 0618 TOTALPROTEIN 7.3 8.0 7.2 BILITOTAL 1.1 1.7* 1.1 ALKPHOS 374* 573* 398* ALBUMIN 4.0 4.2 3.8 ALT 74* 128* 70* AST 51* 140* 34* Coagulation: No results for input(s): PT, INR, APTT in the last 72 hours. Approximately 40 minutes were spent in the care of this patient today. Greater than 50% of time wasspent providing counseling and/or coordination of care bsws-fw-mgcx with patient/family. We discussed plans for work up for temp 100.4 and pain control Nancy Suárez MD [facility] Message via secure chat (7 AM to 7 PM) Virtual ticket system (7PM to 7AM) * Esperanza Charles RN - 05/28/2021 3:01 PM CDT [facility] Adult Therapeutic Orders Protocol [facility] Approved by: [facility] - Medical Executive Committee Approval Date: 05/26/2020 ORDERS ARE ENTERED ???PER PROTOCOL?? Enter the protocol in the patient's electronic health record using smartphrase:.nursingtherapeuticordersprotocol For inpatients with complaints of minor discomfort Nursing Orders: o [id number] Ice Pack/Cold Therapy 20 minutes every 2 hours to affected area. o FTB118 Warm Compress/Heat to affected area 20 minutes every 8 hours to affected area. Medication Orders: o fvfgdnubgq-qctcpmu-muerhoedvqqnnb (CEPACOL) lozenge. 1 each by mouth every [...] Suárez MD - 05/27/2021 4:34 PM CDT [facility] Adult Progress Note Admit Date: 05/24/2021 Date [...] my read. Pt will f/u onc at [place] closer to home. Still having pain - [...] MCV 83.1 84.4 83.4 BMP: Recent Labs 05/25/2151805/26/2145605/27/21556 NA 139 140 136 K 3.9 3.3* 3.3* CL 102 100 92* CO2 27 27 28 ANIONGAP 10 13 16 CA 9.6 9.8 10.0 GLUCOSE 159* 99 122* BUN 7* 6* 7* CREAT 0.69 0.64 0.90 OTHER LYTES:No results for input(s): MG, PO4 in the last 72 hours. AccuCheks: No results for input(s): GLUCPOC in the last 72 hours. LFTs: Recent Labs 05/25/2151805/26/2145621 0557 TOTALPROTEIN 6.9 7.3 8.0 BILITOTAL 2.4* 1.1 1.7* ALKPHOS 392* 374* 573* ALBUMIN 3.8 4.0 4.2 ALT 77* 74* 128* AST 85* 51* 140* Coagulation: No results for input(s): PT, INR, APTT in the last 72 hours. Approximately 35 minutes were spent in the care of this patient today. Greater than 50% of time wasspent providing counseling and/or coordination of care cvhz-hl-cyvb with patient/family. We discussed plans for monitoring labs, pain control, PRN laxatives Nancy Suárez MD [facility] Message via secure chat (7 AM [...] MD, 05/27/2021 12:58 PM Lisa Padilla MD [facility] Digestive Diseases * Esperanza Charles RN - 05/26/2021 7:27 PM CDT Pt A&Ox4. Pt independent. Pt had c/o of pain today, gave morphine and [place] per OCT. Pt stated the morphine helps more then the norco. Pt tried to eat with each meal, but sometimes it would causeher pain. Pt had an increase of BP this shift. Hydralazine was ordered and given. * Nancy Suárez MD - 05/26/2021 12:31 PM CDT [facility] Adult Progress Note Admit Date: 05/24/2021 Date [...] my read. Pt will f/u onc at [place] closer to home. Still having pain - [...] tolerate breakfast great - had omelet and british virgin islander muffin. Had a large BM last night. [...] the last 72 hours. Nancy Suárez MD [facility] Hospitalist Message via secure chat (7 AM [...] attempt to get bx from EGD at [facility] [place] for review as well. Will sign off, but will remain available for questions. Hopefully home soon once pain controlled. D/W Dr. Pascual and Dr. Jose Armando Wilson PANesha [facility] Gastroenterology I can be reached thru secure chat or by calling the office at [phone] * Young Sims GN - 05/26/2021 7:48 AM CDT Patient is A&Ox4. Patient complained of epigastric pain/discomfort. PRN pain medication given per OCT. Warm blanket also given which patient stated relieved the pain. Patient ambulates independently. Patient had a large BM this shift, BM was soft but not diarrhea. Patients BP was elevated throghout shift. MD notified, 1x dose of hydralazine given per OCT. Day nurse notified of patients hypertension. No other complaints at this time. Call light and belongings within reach. * Nancy Suárez MD - 05/25/2021 8:46 PM CDT [facility] Adult Progress Note Admit Date: 05/24/2021 Date [...] my read. Pt will f/u onc at [place] closer to home. [place], oxycodone, morphine IV for pain, watch vitals [...] APTT in the last 72 hours. Nancy uSárez MD [facility] Hospitalist Message via secure chat (7 AM [...] pt stated she was itchy, informed the barrel rifler button hospitalist. Atarax was ordered and given. Pt also stated the old IV site looked like there was puss coming out. Ordered Neosporin per porticol. Pt signed consent for ERCP tomorrow. Covid test was performed. Pt on low fat diet, and will be NPO at [place]. * Esperanza Charles RN - 05/24/2021 7:[address] [facility] Adult Therapeutic Orders Protocol [facility] Approved by: [facility] - Medical Executive Committee Approval Date: 05/26/2020 ORDERS ARE ENTERED ???PER PROTOCOL?? Enter the protocol in the patient's electronic health record using smartphrase:.nursingtherapeuticordersprotocol For inpatients with complaints of minor discomfort Nursing Orders: o YHM395 Ice Pack/Cold Therapy 20 minutes every 2 hours to affected area. o EWD636 Warm Compress/Heat to affected area 20 minutes every 8 hours to affected area. Medication Orders: o nkurpkvdyq-epkoksv-oanyfredvmnela (CEPACOL) lozenge. 1 each by mouth every [...] Suárez MD - 05/24/2021 4:45 PM CDT [facility] Hospitalist Assuming care from Dr. Giordano Agree [...] pending above Nancy Suárez MD * Hope Cardona RN - 05/24/2021 3:44 AM CDT UNDRESS AND ASSESS FOR ALL ADMISSIONS AND TRANSFERS: Remove all existing dressings and assess all wounds upon admission (unless instructed by physician). Undress and Assess performed by: bedside coworker Fausto RN and bedside coworker Kat RN on admission to [facility] Oncology Matt Score: 1. Patient does not [...] consult wound care services. 5. Is a medical office secretary in place?no If yes, remove device/brace/splint to [...] etc.). Wound care consult was not initiated. [facility] Skin Care Injury Prevention and Treatment Protocol [facility] Approved by: [facility] - Medical Executive Committee Approval Date: 08/27/2019 [...] in the Wound Care Algorithm. * Nuzhat Reynoso ANP - 05/23/2021 4:06 PM CDT [facility] Intake Note ?? Oncologist Dr. Newell spoke to Dr. Rickie Charles (surgeon at [facility]) and he agreed to consult patient. ?? 05/23/21 2:51 PM Transferring Physician: Debra ROBLES [phone] Reason for Transfer: needs eval for whipple per Onc (Dr. Branham)/ he spoke to Dr. Charles Current facility and department: [facility] Requested Facility to be transferred: [facility] Specialist needed at accepting facility: Surgery/ [...] see in consult if pt transferred to [facility]. Pt still with epi pain radiatingto [...] information: na ?? Accepted Facility and Department: [facility] / onc ? Notified Dr. Rodriguez of [...] Anxiety. ??? fluticasone propionate (FLONASE) 50 mcg/spray [place], Suspension nasal inhaler Administer 2 Sprays in [...] Giordano MD - 05/24/2021 3:58 AM CDT [facility] Adult Hospitalist Admission H & P Patient [...] who presents with above complaint. Presented to [facility] in [facility] on 05/18 with abdominal pain and diarrhea for the past several months but acutely worsened over past 4d. EGD in 2018 with gastritis/duodenitis. Also recently completed tetracylcine/flagyl/bismuth for h pylori in mid April. Reports that diarrhea worsened after treatment, watery non bloody. Lipase [id number] with normal LFTs on admission. CT abdomen [...] hour(s)). I have reviewed prior records in [facility] if available Assessment and Plan: 1. Ampullary mass c/w with primary malignancy --underwent EGD with biopsy at OSH on 05/22, no stents placed per records --Dr Charles called by onc prior to transfer and agreed to consult for possible whipple --patient plans to f/u with oncology at [facility] --nocro, oxycodone, morphine for pain 2. Acute [...] attending has changed, contact attending listed in [facility] or locate patient on the hospitalist e-list and contact the current attending This note was dictated using Technology Keiretsu software, minimal attempts were made to correct text errors documented in this encounter Procedure Notes * Omar Gonzalez MD - 05/25/2021 7:07 PM CDTAssociated Order(s): ERCP REPORT [facility] Endoscopy Patient Name: Krissy Jm Procedure Date: [...] Loss: Estimated blood loss: none. Findings: The gis application developer film was normal. The esophagus was successfully [...] mm biliary sphincterotomy was performed. A 7 Monegasque by 9 cm pancreatic stent with internal [...] electronically. Number of Addenda: [phone] [facility]; [place] [address] * Omar Gonzalez MD - 05/25/2021 6:55 PM CDTAssociated Order(s): UPPER ENDOSCOPIC ULTRASOUND REPORT [facility] Endoscopy Patient Name: January Procedure Date: 05/25/2021 [...] signed electronically. Number of Addenda: [phone] [facility]; [place] [address] documented in this encounter Consult Notes * [...] that looked like bile. She presented to [facility] where her initial serologies suggested pancreatitis. Lipase [...] [facility] GI LAB ??? HX HEART CATHETERIZATION ??? HX HYSTERECTOMY ??? HX PARTIAL THYROIDECTOMY ??? HX SPINAL SURGERY ??? HX TUBAL LIGATION ??? MI EDG US EXAM SURGICAL ALTER STOM DUODENUM/JEJUNUM N/A 05/25/2021 ULTRASOUND ENDOSCOPIC performed by Omar Gonzalez MD at [facility] GI LAB ??? MI ESOPHAGOGASTRODUODENOSCOPY TRANSORAL DIAGNOSTIC N/A 05/25/2021 ESOPHAGOGASTRODUODENOSCOPY performed by Omar Gonzalez MD at [facility] GI LAB Current Medications: Current Facility-Administered Medications [...] Tablet 1 Tablet Oral every 4 hours Nancy Salcedo MD ??? hydrALAZINE (APRESOLINE) tablet 10 mg [...] propionate (FLONASE) 50 mcg/spray nasal inhaler 2 [place] 2 [place] Both Nostrils dailyMaurice Giordano MD 2 [place] at 05/30/21 0848 ??? sertraline (ZOLOFT) tablet 50 mg 50 mg Oral daily BEDTIME Maurice Giordano MD 50 mg at 05/29/212028 ??? naloxone (NARCAN) 0.4 mg/mL injection 0.1 mg 0.1 mg IV see admin instructions Maurice Giordano MD ??? acetaminophen (TYLENOL) tablet 650 mg 650 mg Oral every 6 hours PRN Maurice Giordano MD 650 mg at12028 ??? HYDROcodone-acetaminophen (NORCO) 5-325 mg per tablet 1 Tablet 1 Tablet Oral every 4 hours PRN aMurice Giordano MD 1 Tablet at 05/29/21 1915 ??? morphine 4 mg/mL injection 4 mg [...] plans to follow with Dr Newell in [facility].for chemotherapy recommendations Lula Modi MD Hematology/Oncology [facility] * Sushant Downing RN - 05/24/2021 2:19 [...] seen this Krissy Oneal with my Physician Applications System Analyst, and reviewed all ancillary data. I agree [...] 05/24/2021 3:59 PM Inpatient GI Consultation Note [facility] Gastroenterology Consultation Note Patient: Krissy Oneal / 65 y.o. / female : 1955 Date: 05/24/2021 CSN: [id number] Referring Physician:No ref. provider found PCP: Rosibel Muse MD Reason for Consult: Pancreatic mass History of Present Illness: Krissy Oneal is a 65 y.o. female with PMH of dyslipidemia, HTN, COPD, IBS. She has been hospitalized at [facility] and transferred to [facility] for pancreatic mass and consideration of Whipple. [...] that looked like bile. She presented to [facility] where her initial serologies suggested pancreatitis. Lipase [...] Anxiety. ??? fluticasone propionate (FLONASE) 50 mcg/spray [place], Suspension nasal inhaler Administer 2 Sprays in [...] I have discussed this case with Dr. Pascual and Dr. Gonzalez. Thank you very much for this consultation. I have spent a total of 75 min of time on the hospital floor reviewing pt records and speaking withpt and medical staff and 50% of time counseling the patient in regard to her current clinical situation and coordinating care. Romina Wilson PA-C [facility] Gastroenterology I can be reached thru secure chat or by calling the office at [phone] CC: No ref. provider found , Rosibel [...] Gatherings with Friends and Family: ??? Attends [employer] Services: ??? Active Member of Clubs or [...] Anxiety. ??? fluticasone propionate (FLONASE) 50 mcg/spray [place], Suspension nasal inhaler Administer 2 Sprays in [...] follow the patient's progress. in kind regards, Phil Ken MD, FACS, [facility] Surgical Oncology and Endocrine Surgery [facility] documented in this encounter OR Notes * Ana-OP - Merna Hutchins RN - 05/25/2021 12:45 PM CDT Patient/Family discussion included an explanation that: Standard practice for endoscopists at [facility] includes use of an oral bite block to facilitate upper endoscopy and to prevent you from biting onto the scope or yourself during the procedure.This bite block is placed by a [facility] procedure room nurse/lighting technician prior to the procedure. Pressure that [...] same day or prompt dental evaluation by [facility] Dental Medicine. documented in this encounter Miscellaneous [...] also mentioned that when she was at [facility] she was given imodium and it caused [...] Ambulates independently. Complained of abdominal pain, PRN Irvine given per OCT. Patient had 100.4 temp, [...] CDT requested EDG bx results done at [facility] earlier this week. VIELKA spoke with Maggy with Medical Records at [place], results will be faxed to oncology floor ([phone]). RN aware. Results received and placed in patient paper lite chart. Case management continues to follow and assist in discharge planning as needed. Meghan Acosta LMSW, 05/26/2021 12:25 PM [id number] Day 1 - Current ([place]: Adult and Obstetrics) Patient, family, or healthcare designee is participating in individual care plan process Outcome: Met Problem: Discharge Planning Goal: Identify discharge needs upon admission and through discharge Description: Outcome: Progressing * Care Plan - Shania Lucas GN - 05/25/2021 6:25 PM CDT Patient complained of moderate pain, relieved by Irvine. Patient was up independently, visited with family. [...] Outcome: Variance * Care Plan - Meghan AcostaHANANE - 05/24/2021 11:26 AM CDT Care Management [...] verified: Payor: / Patient states she has [facility] Medicare (also listed in transfer paperwork); she states her family is coming to visit tomorrow and will bring a copy of her card Prescription coverage: yes Preferred Pharmacy verified: [facility] Employment Status: employed Has VA Benefits: no PCP verified as: Rosibel Muse MD Patient has not had a stay at an acute care hospital in the last 30 days. Recent Falls?: Last Known Fall: No falls Patient has a [employer] account: no Patient has a smart device: [...] have received the second COVID19 vaccine from [employer]. Patientstates the date of the last vaccine was in Sep. Meghan Acosta LMSW, 05/24/2021 11:26 AM [id number] Day 1 - Current ([place]: Adult and Obstetrics) Patient, family, or healthcare designee is participating in individual care plan process Outcome: Met Problem: Discharge Planning Goal: Identify discharge needs upon admission and through discharge Description: Outcome: Progressing * Care Plan - Hope Cardona RN - 05/24/2021 5:26 AM CDT Images from the original note were not included. [facility] Adult IV Flush Protocol [facility] Approved by: [facility] - Medical Executive Committee Approval Date: 12/29/2020 [...] st Contact Info) Description 08/25/2024 2:00 PM BEAD MAKER Office Visit [facility] Oncology and Hematology - [place] [address] [facility] [address] [place] [address] Royal Newell MD [address] [facility] [address] [place] [address] documented as of this encounter [...] DETECTED Not Detected 05/31/2021 8:29 PM CDT [facility] Stool STOOL SPECIMEN / Unknown Collection / Unknown 05/31/2021 5:18 PM CDT 05/31/2021 5:30 PM CDT [facility] - 05/31/2021 8:29 PM CDT This assay is used to detect Toxigenic C. difficile target(B gene) DNA sequences in unformed stool specimens. ??If toxigenic C. difficile is not detected, but clinical suspicion is high please consult ID for consultation and potential repeat testing. ??This test should not be used as a test of cure. Lanny Coleman MD MICROBIOLOGY - THOM HUTTON ORDERABLES [facility] LABORATORY SERVICES [facility] CLIA# [id number] [address] [facility] [place] [address] * (ABNORMAL) BASIC METABOLIC PANEL (05/31/2021 10:44 AM CDT) SODIUM 139 136 - 145 mmol/L 05/31/2021 11:26 AM CDT [facility] LABORATORY SERVICES [facility] POTASSIUM 4.3 3.5 - 5.0 mmol/L 05/31/2021 11:26 AM T [facility] SERVICES - [facility] Comment:Significant change f rom prior result, correlate clinically and redraw if necessary. CHLORIDE 101 98 - 107 mmol/L 05/31/2021 11:26 AM CDT [facility]ORATORY SERVICES [facility] CO2 27 22 - 29 mmol/L 05/31/2021 11:[address] [facility]OR[facility] SERVICES - [facility] CALCIUM 9.7 8.6 - 10.2 mg/dL 05/31/2021 11:[address] [facility]ORAT[facility] SERVICES [facility] BUN 6(L) 8 - 23 mg/dL 05/31/2021 11:26 AM T [facility] LABORATORY SERVICES [facility] CREATININE 0.73 0.51 - 0.95 mg/dL 05/31/2021 11:[address] [facility] LABORATORY SERVICES [facility] GLUCOSE 152(H) 74 - 99 mg/dL 05/31/2021 11:26 AM T [facility] SERVICES - [facility] GFR >60 mL/min/1.7 3 sq meter 05/31/2021 11:26 AM T [facility] LABORATORY SERVICES [facility] Comment: eGFR has not been validated for [...] 3 sq meter 05/31/2021 11:26 AM CDT [facility] SERVICES - [facility] ANION GAP 11 8 - 16 mmol/L 05/31/2021 11:[address] [facility] SERVICES - [facility] Blood Venipuncture / Unknown 05/31/2021 10:44 AM CDT 05/31/2021 10:54 AM CDT Lanny Coleman MD CHEMISTRY ORDERABLES [facility] LABORATORY SERVICES [facility]# [id number] [address] [place] [address] * (ABNORMAL) CBC WITH DIFFERENTIAL (05/31/2021 10:44 AM CDT) WBC 6.5 4.0 - 9.8 K/uL 05/31/2021 11:[address] [facility]OR[facility] SERVICES [facility] RBC 3.69(L) 3.90 - 4.90 M/uL 05/31/2021 11:01 AM [facility] LABORATORY SERVICES [facility] HEMOGLOBIN 9.9(L) 11.8 - 14.8 g/dL 05/31/2021 11:[address] [facility]OR[facility] SERVICES - [facility] HEMATOCRIT 31.9(L) 35.5 - 44.0 % 05/31/2021 11:[address] [facility] SERVICES - [facility] MCV 86.4 82.0 - 99.0 fL 05/31/2021 11:[address] [facility] SERVICES - [facility] MCH 26.8(L) 27.2 - 32.6 pg 05/31/2021 11:[address] [facility] LABORATORY SERVICES [facility] MCHC 31.0(L) 31.5 - 35.5 g/dL 05/31/2021 11:01 AM [facility] LABORATORY SERVICES - [facility] RDW 14.9(H) 11.5 - 14.5 % 05/31/2021 11:01 AM [facility] SERVICES - [facility] RDW-STDEV 47.4 37.1 - 48.7 fL 05/31/2021 11:01 AM [facility] - [facility] PLATELETS 371(H) 140 - 350 K/uL 05/31/2021 11:01 AM [facility] - [facility] MPV 9.4 9.3 - 12.4 fL 05/31/2021 11:01 AM [facility] - [facility] NEUTROPHILS 66 % 05/31/2021 11:01 AM [facility] - [facility] LYMPHOCYTES 19 % 05/31/2021 11:01 AM [facility] - [facility] MONOCYTES 12 % 05/31/2021 11:01 AM [facility] - [facility] EOSINOPHILS 2 % 05/31/2021 11:01 AM [facility] SERVICES - [facility] BASOPHILS 0 % 05/31/2021 11:01 AM [facility] SERVICES - [facility] IMMATURE GRANULOCYTES 1 % 05/31/2021 11:01 AM [facility] - [facility] Comment:IG (Immature Granulo cyte) count includes Metamyelocytes, Myelocytes, and Promyelocytes NEUTROPHIL ABSOLUTE 4.32 1.90 - 7.00 K/uL 05/31/2021 11:01 AM [facility] - [facility] LYMPHOCYTE ABSOLUTE 1.21 0.70 - 4.50 K/uL 05/31/2021 11:01 AM [facility] SERVICES - [facility] MONOCYTE ABSOLUTE 0.81 0.10 - 1.30 K/uL 05/31/2021 11:01 AM [facility] - [facility] EOSINOPHIL ABSOLUTE 0.13 0.00 - 0.70 K/uL 05/31/2021 11:01 AM [facility] - [facility] BASOPHILS ABSOLUTE 0.02 0.00 - 0.20 K/uL 05/31/2021 11:01 AM [facility] SERVICES - [facility] IMMATURE GRANULOCYTES ABSOLUTE 0.04(H) 0.00 - 0.03 K/uL 05/31/2021 11:01 AM T [facility]ATORY SERVICES - [facility] Blood Venipuncture / Unknown 05/31/2021 10:44 AM CDT 05/31/2021 10:54 AM CDT Lanny Coleman MD HEMATOLOGY ORDERABLE S [facility] SERVICES [facility] CLIA# [id number] [address] [facility] [place] [address] * (ABNORMAL) BASIC METABOLIC PANEL (05/30/2021 10:59 AM CDT) SODIUM 133(L) 136 - 145 mmol/L 05/30/2021 11:52 AM T [facility] SERVICES - [facility] POTASSIUM 2.8(L) 3.5 - 5.0 mmol/L 05/30/2021 11:52 AM T [facility] SERVICES - [facility] CHLORIDE 93(L) 98 - 107 mmol/L 05/30/2021 11:52 AM T [facility]ORY SERVICES - [facility] CO2 28 22 - 29 mmol/L 05/30/2021 11:52 AM T [facility] SERVICES - [facility] CALCIUM 9.0 8.6 - 10.2 mg/dL 05/30/2021 11:52 AM T [facility] SERVICES - [facility] BUN 7(L) 8 - 23 mg/dL 05/30/2021 11:52 AM T [facility] SERVICES - [facility] CREATININE 0.72 0.51 - 0.95 mg/dL 05/30/2021 11:52 AM T [facility] - [facility] GLUCOSE 236(H) 74 - 99 mg/dL 05/30/2021 11:52 AM T [facility] SERVICES - [facility] GFR >60 mL/min/1.7 3 sq meter 05/30/2021 11:52 AM T [facility] - [facility] Comment: eGFR [...] 3 sq meter 05/30/2021 11:[address] [facility] LABOR[facility]ORY [facility] ANION GAP 12 8 - 16 mmol/L 05/30/2021 11:[address] [facility] Blood Venipuncture / Unknown 05/30/2021 10:59 AM CDT 05/30/2021 11:04 AM CDT Lanny Coleman MD CHEMISTRY ORDERABLES Performing Organization Address [facility]/ZIP Co de Phone Number [facility] CLIA# [id number] [address] [place] [address] * MAGNESIUM LEVEL (05/29/2021 5:29 AM CDT) MAGNESIUM 1.8 1.6 - 2.4 mg/dL 05/29/2021 6:[address] [facility] Blood Venipuncture / Unknown 05/29/2021 5:29 AM CDT 05/29/2021 5:54 AM CDT Nancy Suárez MD CHEMISTRY ORDERABLES [facility] CLIA# [id number] [address] [place] [address] * (ABNORMAL) CBC WITH DIFFERENTIAL (05/29/2021 5:29 AM CDT) WBC 8.8 4.0 - 9.8 K/uL 05/29/2021 6:[address] [facility] LABOR[facility] RBC 3.67(L) 3.90 - 4.90 M/uL 05/29/2021 6:13 AM CDT [facility] SERVICES - [facility] HEMOGLOBIN 9.8(L) 11.8 - 14.8 g/dL 05/29/2021 6:13 AM CDT [facility] - [facility] HEMATOCRIT 31.3(L) 35.5 - 44.0 % 05/29/2021 6:13 AM CDT [facility] - [facility] MCV 85.3 82.0 - 99.0 fL 05/29/2021 6:13 AM CDT [facility] - [facility] MCH 26.7(L) 27.2 - 32.6 pg 05/29/2021 6:13 AM CDT [facility] SERVICES - [facility] MCHC 31.3(L) 31.5 - 35.5 g/dL 05/29/2021 6:13 AM CDT [facility] - [facility] RDW 14.9(H) 11.5 - 14.5 % 05/29/2021 6:13 AM CDT [facility] SERVICES - [facility] RDW-STDEV 46.5 37.1 - 48.7 fL 05/29/2021 6:13 AM CDT [facility] - [facility] PLATELETS 295 140 - 350 K/uL 05/29/2021 6:13 AM CDT [facility] - [facility] MPV 9.8 9.3 - 12.4 fL 05/29/2021 6:13 AM CDT [facility] - [facility] NEUTROPHILS 73 % 05/29/2021 6:13 AM CDT [facility] - [facility] LYMPHOCYTES 15 % 05/29/2021 6:13 AM CDT [facility] - [facility] MONOCYTES 11 % 05/29/2021 6:13 AM CDT [facility] - [facility] EOSINOPHILS 0 % 05/29/2021 6:13 AM CDT [facility] - [facility] BASOPHILS 0 % 05/29/2021 6:13 AM CDT [facility] - [facility] IMMATURE GRANULOCYTES 1 % 05/29/2021 6:13 AM CDT [facility] - [facility] Comment:IG (Immature Granulo cyte) count includes Metamyelocytes, Myelocytes, and Promyelocytes NEUTROPHIL ABSOLUTE 6.40 1.90 - 7.00 K/uL 05/29/2021 6:[address] [facility] SERVICES - [facility] LYMPHOCYTE ABSOLUTE 1.35 0.70 - 4.50 K/uL 05/29/2021 6:[address] [facility] SERVICES - [facility] MONOCYTE ABSOLUTE 0.93 0.10 - 1.30 K/uL 05/29/2021 6:[address] [facility] SERVICES - [facility] EOSINOPHIL ABSOLUTE 0.02 0.00 - 0.70 K/uL 05/29/2021 6:[address] [facility] SERVICES - [facility] BASOPHILS ABSOLUTE 0.02 0.00 - 0.20 K/uL 05/29/2021 6:[address] [facility] LABORATORY SERVICES - [facility] IMMATURE GRANULOCYTES ABSOLUTE 0.04(H) 0.00 - 0.03 K/uL 05/29/2021 6:[address] [facility]ATORY SERVICES - [facility] Blood Venipuncture / Unknown 05/29/2021 5:29 AM CDT 05/29/2021 5:54 AM CDT Nancy Suárez MD HEMATOLOGY ORDERABLE S [facility] LABORATORY SERVICES [facility]# [id number] [address] [place] [address] * (ABNORMAL) COMPREHENSIVE METABOLIC PANEL (05/29/2021 5:29 AM CDT) SODIUM 132(L) 136 - 145 mmol/L 05/29/2021 6:[address] [facility] SERVICES - [facility] POTASSIUM 3.3(L) 3.5 - 5.0 mmol/L 05/29/2021 6:[address] [facility]ORY SERVICES - [facility] CHLORIDE 92(L) 98 - 107 mmol/L 05/29/2021 6:[address] [facility] SERVICES - [facility] CO2 28 22 - 29 mmol/L 05/29/2021 6:[address] [facility] SERVICES - [facility] CALCIUM 8.9 8.6 - 10.2 mg/dL 05/29/2021 6:41 AM [facility] SERVICES - [facility] BUN 7(L) 8 - 23 mg/dL 05/29/2021 6:41 AM [facility]ORY SERVICES - [facility] CREATININE 0.91 0.51 - 0.95 mg/dL 05/29/2021 6:41 AM [facility] SERVICES - [facility] GLUCOSE 110(H) 74 - 99 mg/dL 05/29/2021 6:41 AM [facility] LAB[facility]ATORY SERVICES - [facility] TOTAL PROTEIN 6.9 6.7 - 8.6 g/dL 05/29/2021 6:41 AM [facility] SERVICES - [facility] ALBUMIN 3.3(L) 3.5 - 5.2 g/dL 05/29/2021 6:41 AM [facility]AT[facility] SERVICES - [facility] BILIRUBIN TOTAL 0.9 0.2 - 1.1 mg/dL 05/29/2021 6:41 AM [facility] LABORATORY SERVICES - [facility] ALKALINE PHOSPHATASE 314(H) 35 - 104 U/L 05/29/2021 6:41 AM [facility]AT[facility] SERVICES - [facility] AST 27 <33 U/L 05/29/2021 6:41 AM [facility] SERVICES - [facility] ALT 50(H) <34 U/L 05/29/2021 6:41 AM [facility] - [facility] GFR >60 mL/min/1.7 3 sq meter 05/29/2021 6:41 AM [facility] SERVICES - [facility] Comment: eGFR [...] mL/min/1.7 3 sq meter 05/29/2021 6:41 AM [facility] LABORATORY SERVICES - [facility] ANION GAP 12 8 - 16 mmol/L 05/29/2021 6:[address] [facility] LAB[facility]ORY [facility] Blood Venipuncture / Unknown 05/29/2021 5:29 AM CDT 05/29/2021 5:[address] [facility] - 05/29/2021 6:41 AM CDT Samples containing indocyanine green cause interferences on Total and/or Direct Bilirubin and must not be measured. Nancy Suárez MD CHEMISTRY ORDERABLES [facility] LABORATORY [facility] CLIA# [id number] [address] [facility] [place] [address] * XR CHEST PA AND LATERAL 2 VW (05/28/2021 3:10 PM CDT) Anatomical Region Laterality Modality Chest Computed Radiogr aphy 05/28/2021 3:10 PM CDT Impressions 05/28/2021 4:34 PM CDT IMPRESSION: Elevation of the right hemidiaphragm, with right basilar atelectasis noted. There may be a tiny right pleural effusion. Mild left basilar atelectasis versus infiltrates noted. DICTATION LOCATION: Location 1 - [facility] Narrative 05/28/2021 4:34 PM CDT PA [...] infiltrates noted. DICTATION LOCATION: Location 1 - [facility] Nancy Suárez MD DIAGNOSTIC IMAGING O RDERABLES * (ABNORMAL) BLOOD CULTURE PATHOGEN PCR PANEL (05/28/2021 1:45 PM CDT) Klebsiella pneumoniae group by PCR DETECTED( A) Not Detected 05/29/2021 7:[address] [facility] Blood (Peripheral) Venipuncture / Unknown 05/28/2021 1:45 PM CDT 05/28/2021 2:[address] [facility] - 05/29/2021 7:36 AM CDT The Film [...] Suárez MD MICROBIOLOGY - GENER AL ORDERABLES [facility] CLIA# [id number] [address] [place] [address] * (ABNORMAL) BLOOD CULTURE (05/28/2021 1:45 PM CDT) BLOOD CULTURE Abnormal Gram Stain(A) 05/31/2021 9:01 AM CDT [facility] BLOOD CULTURE Culture positive for Klebsiella variicola(A) BECKY MCG/ML 05/31/2021 9:01 AM CDT [facility] Comment:Mucoid Blood (Peripheral) Venipuncture / Unknown 05/28/2021 1:45 PM CDT 05/28/2021 2:14 PM CDT Narrative [facility] - 05/31/2021 9:01 AM CDT Gram stain [...] [facility] Susceptible Nancy Suárez MD MICROBIOLOGY - GENER AL ORDERABLES [facility]# [id number] [address] [place] [address] * (ABNORMAL) BLOOD CULTURE (05/28/2021 1:44 PM CDT) BLOOD CULTURE Abnormal Gram Stain(A) 05/31/2021 9:[address] [facility] BLOOD CULTURE Culture positive for Klebsiella variicola(A) BECKY MCG/ML 05/31/2021 9:[address] [facility] Comment:Susceptibility on pr evious culture. Blood (Peripheral) Venipuncture / Unknown 05/28/2021 1:44 PM CDT 05/28/2021 2:[address] [facility] - 05/31/2021 9:04 AM CDT Results called [...] media type. Nancy Suárez MD MICROBIOLOGY - THOM AL ORDERABLES [facility]# [id number] [address] [place] [address] * URINALYSIS WITH REFLEX MICROSCOPIC (05/28/2021 11:33 AM CDT) COLOR UA Yellow Pale to Dark Yellow 05/28/2021 11:49 AM CDT [facility] SERVICES - [facility] CLARITY UA Clear Clear 05/28/2021 11:[address] [facility] SPECIFIC GRAVITY UA 1.017 1.003 - 1.035 05/28/2021 11:[address] [facility] PH UA 7.0 5.0 - 8.0 05/28/2021 11:[address] [facility] LEUKOCYTE ESTERASE UA Negative Negative 05/28/2021 11:49 AM CDT [facility] NITRITE UA Negative Negative 05/28/2021 11:49 AM CDT [facility] SERVICES - [facility] PROTEIN UA Negative Negative 05/28/2021 11:[address] [facility] SERVICES - [facility] GLUCOSE UA Negative Negative 05/28/2021 11:[address] [facility] SERVICES - [facility] KETONES UA Negative Negative 05/28/2021 11:[address] [facility] SERVICES - [facility] UROBILINOGEN UA Normal <2.0 mg/dL 11:49 AM CDT [facility] - [facility] BILIRUBIN UA Negative Negative 05/28/2021 11:49 AM CDT [facility] - [facility] BLOOD UA Negative Negative 05/28/2021 11:49 AM CDT [facility] - [facility] Urine URINE SPECIMEN OBTAINED BY CLEAN CATCH PROCEDURE / Unknown Collection / Unknown 05/28/2021 11:33 AM CDT 05/28/2021 11:36 AM CDT Nancy Suárez MD URINE ORDERABLES [facility] SERVICES [facility]# [id number] [address] [place] [address] * (ABNORMAL) CBC WITH DIFFERENTIAL (05/28/2021 6:18 AM CDT) WBC 7.1 4.0 - 9.8 K/uL 05/28/2021 7:18 AM CDT [facility] SERVICES - [facility] RBC 3.71(L) 3.90 - 4.90 M/uL 05/28/2021 7:18 AM CDT [facility] SERVICES - [facility] HEMOGLOBIN 10.1(L) 11.8 - 14.8 g/dL 05/28/2021 7:[address] [facility] SERVICES - [facility] HEMATOCRIT 32.0(L) 35.5 - 44.0 % 05/28/2021 7:[address] [facility] LABORAT[facility] SERVICES - [facility] MCV 86.3 82.0 - 99.0 fL 05/28/2021 7:[address] [facility]OR[facility] SERVICES - [facility] MCH 27.2 27.2 - 32.6 pg 05/28/2021 7:18 AM CDT [facility] SERVICES - [facility] MCHC 31.6 31.5 - 35.5 g/dL 05/28/2021 7:18 AM CDT [facility] - [facility] RDW 14.8(H) 11.5 - 14.5 % 05/28/2021 7:18 AM CDT [facility] - . [facility] RDW-STDEV 46.6 37.1 - 48.7 fL 05/28/2021 7:18 AM CDT [facility] - [facility] PLATELETS 356(H) 140 - 350 K/uL 05/28/2021 7:18 AM CDT [facility] - [facility] MPV 9.8 9.3 - 12.4 fL 05/28/2021 7:18 AM CDT [facility] - [facility] NEUTROPHILS 73 % 05/28/2021 7:18 AM CDT [facility] - [facility] LYMPHOCYTES 16 % 05/28/2021 7:18 AM CDT [facility] - [facility] MONOCYTES 8 % 05/28/2021 7:18 AM CDT [facility] - [facility] EOSINOPHILS 2 % 05/28/2021 7:18 AM CDT [facility] - [facility] BASOPHILS 0 % 05/28/2021 7:18 AM CDT [facility] - [facility] IMMATURE GRANULOCYTES 0 % 05/28/2021 7:18 AM CDT [facility] - [facility] NEUTROPHIL ABSOLUTE 5.14 1.90 - 7.00 K/uL 05/28/2021 7:18 AM CDT [facility] - [facility] LYMPHOCYTE ABSOLUTE 1.15 0.70 - 4.50 K/uL 05/28/2021 7:18 AM CDT [facility] - [facility] MONOCYTE ABSOLUTE 0.59 0.10 - 1.30 K/uL 05/28/2021 7:18 AM CDT [facility] - [facility] EOSINOPHIL ABSOLUTE 0.15 0.00 - 0.70 K/uL 05/28/2021 7:18 AM CDT [facility] - [facility] BASOPHILS ABSOLUTE 0.02 0.00 - 0.20 K/uL 05/28/2021 7:18 AM CDT [facility] - [facility] IMMATURE GRANULOCYTES ABSOLUTE 0.03 0.00 - 0.03 K/uL 05/28/2021 7:[address] [facility] Blood Venipuncture / Unknown 05/28/2021 6:18 AM CDT 05/28/2021 7:08 AM CDT Nancy Suárez MD HEMATOLOGY ORDERABLE S [facility] CLIA# [id number] [address] [place] [address] * (ABNORMAL) COMPREHENSIVE METABOLIC PANEL (05/28/2021 6:18 AM CDT) SODIUM 139 136 - 145 mmol/L 05/28/2021 7:42 AM T [facility] - . [facility] POTASSIUM 3.2(L) 3.5 - 5.0 mmol/L 05/28/2021 7:42 AM T [facility] - [facility] CHLORIDE 95(L) 98 - 107 mmol/L 05/28/2021 7:42 AM T [facility] CO2 31(H) 22 - 29 mmol/L 05/28/2021 7:42 AM [facility] - [facility] CALCIUM 9.2 8.6 - 10.2 mg/dL 05/28/2021 7:42 AM [facility] - [facility] BUN 6(L) 8 - 23 mg/dL 05/28/2021 7:42 AM T [facility] CREATININE 0.75 0.51 - 0.95 mg/dL 05/28/2021 7:42 AM [facility] - [facility] GLUCOSE 111(H) 74 - 99 mg/dL 05/28/2021 7:42 AM T [facility] TOTAL PROTEIN 7.2 6.7 - 8.6 g/dL 05/28/2021 7:42 AM T [facility] - [facility] ALBUMIN 3.8 3.5 - 5.2 g/dL 05/28/2021 7:42 AM [facility] BILIRUBIN TOTAL 1.1 0.2 - 1.1 mg/dL 05/28/2021 7:42 AM [facility] ALKALINE PHOSPHATASE 398(H) 35 - 104 U/L 05/28/2021 7:42 AM [facility] AST 34(H) <33 U/L 05/28/2021 7:42 AM [facility] ALT 70(H) <34 U/L 05/28/2021 7:42 AM [facility] GFR >60 mL/min/1.7 3 sq meter 05/28/2021 7:42 AM [facility] Comment: eGFR has not been validated [...] mL/min/1.7 3 sq meter 05/28/2021 7:42 AM [facility] ANION GAP 13 8 - 16 mmol/L 05/28/2021 7:42 AM [facility] Blood Venipuncture / Unknown 05/28/2021 6:18 AM CDT 05/28/2021 7:[address] [facility] - 05/28/2021 7:42 AM CDT Samples containing indocyanine green cause interferences on Total and/or Direct Bilirubin and must not be measured. Nancy Suárez MD CHEMISTRY ORDERABLES [facility] CLIA# [id number] [address] [facility] [address] [place] [address] * LIPASE (05/27/2021 5:57 AM CDT) LIPASE 58 13 - 60 U/L 05/27/2021 12:[address] [facility] Blood Venipuncture / Unknown 05/27/2021 5:57 AM CDT 05/27/2021 7:14 AM CDT Lisa Padilla MD CHEMISTRY ORDFernanda DÍAZ [facility] CLIA# [id number] [address] [facility] [place] [address] * (ABNORMAL) CBC WITH DIFFERENTIAL (05/27/2021 5:57 AM CDT) Pathologist [facility] WBC 11.0(H) 4.0 - 9.8 K/uL 05/27/2021 7:[address] [facility] RBC 4.10 3.90 - 4.90 M/uL 05/27/2021 7:[address] [facility] HEMOGLOBIN 10.8(L) 11.8 - 14.8 g/dL 05/27/2021 7:[address] [facility] - [facility] HEMATOCRIT 34.2(L) 35.5 - 44.0 % 05/27/2021 7:[address] [facility] MCV 83.4 82.0 - 99.0 fL 05/27/2021 7:[address] [facility] - [facility] MCH 26.3(L) 27.2 - 32.6 pg 05/27/2021 7:[address] [facility] - [facility] MCHC 31.6 31.5 - 35.5 g/dL 05/27/2021 7:[address] [facility] - [facility] RDW 14.8(H) 11.5 - 14.5 % 05/27/2021 7:[address] [facility] RDW-STDEV 44.2 37.1 - 48.7 fL 05/27/2021 7:34 AM CDT [facility] - [facility] PLATELETS 415(H) 140 - 350 K/uL 05/27/2021 7:34 AM T [facility] MPV 10.2 9.3 - 12.4 fL 05/27/2021 7:34 AM T [facility] NEUTROPHILS 84 % 05/27/2021 7:34 AM T [facility] LYMPHOCYTES 10 % 05/27/2021 7:34 AM [facility] MONOCYTES 5 % 05/27/2021 7:34 AM T [facility] EOSINOPHILS 1 % 05/27/2021 7:34 AM T [facility] BASOPHILS 0 % 05/27/2021 7:34 AM T [facility] IMMATURE GRANULOCYTES 1 % 05/27/2021 7:34 AM T [facility] Comment:IG (Immature Granulo cyte) count includes Metamyelocytes, Myelocytes, and Promyelocytes NEUTROPHIL ABSOLUTE 9.25(H) 1.90 - 7.00 K/uL 05/27/2021 7:34 AM T [facility] LYMPHOCYTE ABSOLUTE 1.09 0.70 - 4.50 K/uL 05/27/2021 7:34 AM T [facility] MONOCYTE ABSOLUTE 0.52 0.10 - 1.30 K/uL 05/27/2021 7:34 AM T [facility] EOSINOPHIL ABSOLUTE 0.10 0.00 - 0.70 K/uL 05/27/2021 7:34 AM [facility] BASOPHILS ABSOLUTE 0.03 0.00 - 0.20 K/uL 05/27/2021 7:34 AM T [facility] IMMATURE GRANULOCYTES ABSOLUTE 0.05(H) 0.00 - 0.03 K/uL 05/27/2021 7:34 AM [facility] - [facility] Blood Venipuncture / Unknown 05/27/2021 5:57 AM CDT 05/27/2021 7:15 AM CDT Nancy Suárez MD HEMATOLOGY ORDERABLE S [facility] - [facility]# [id number] [address] [place] [address] * (ABNORMAL) COMPREHENSIVE METABOLIC PANEL (05/27/2021 5:57 AM CDT) SODIUM 136 136 - 145 mmol/L 05/27/2021 7:[address] [facility] POTASSIUM 3.3(L) 3.5 - 5.0 mmol/L 05/27/2021 7:[address] [facility] CHLORIDE 92(L) 98 - 107 mmol/L 05/27/2021 7:[address] [facility] CO2 28 22 - 29 mmol/L 05/27/2021 7:[address] [facility] CALCIUM 10.0 8.6 - 10.2 mg/dL 05/27/2021 7:[address] [facility] BUN 7(L) 8 - 23 mg/dL 05/27/2021 7:[address] [facility] CREATININE 0.90 0.51 - 0.95 mg/dL 05/27/2021 7:[address] [facility] GLUCOSE 122(H) 74 - 99 mg/dL 05/27/2021 7:[address] [facility] TOTAL PROTEIN 8.0 6.7 - 8.6 g/dL 05/27/2021 7:[address] [facility] ALBUMIN 4.2 3.5 - 5.2 g/dL 05/27/2021 7:56 AM CDT [facility]AT[facility] - [facility] BILIRUBIN TOTAL 1.7(H) 0.2 - 1.1 mg/dL 05/27/2021 7:[address] [facility] ALKALINE PHOSPHATASE 573(H) 35 - 104 U/L 05/27/2021 7:[address] [facility] AST 140(H) <33 U/L 05/27/2021 7:56 AM CDT [facility] ALT 128(H) <34 U/L 05/27/2021 7:56 AM T [facility] GFR >60 mL/min/1.7 3 sq meter 05/27/2021 7:56 AM CDT [facility] Comment: eGFR has not been validated [...] 3 sq meter 05/27/2021 7:56 AM CDT [facility] ANION GAP 16 8 - 16 mmol/L 05/27/2021 7:56 AM [facility] Blood Venipuncture / Unknown 05/27/2021 5:57 AM CDT 05/27/2021 7:14 AM CDT Narrative [facility] - 05/27/2021 7:56 AM CDT Samples containing indocyanine green cause interferences on Total and/or Direct Bilirubin and must not be measured. Nancy Suárez MD CHEMISTRY ORDERABLES [id number] 5 [facility] [place] [id number] * (ABNORMAL) COMPREHENSIVE METABOLIC PANEL (05/26/2021 4:57 AM CDT) SODIUM 140 136 - 145 mmol/L 05/26/2021 5:[address] [facility] POTASSIUM 3.3(L) 3.5 - 5.0 mmol/L 05/26/2021 5:57 AM [facility] - [facility] CHLORIDE 100 98 - 107 mmol/L 05/26/2021 5:57 AM [facility] - [facility] CO2 27 22 - 29 mmol/L 05/26/2021 5:57 AM [facility] - [facility] CALCIUM 9.8 8.6 - 10.2 mg/dL 05/26/2021 5:57 AM [facility] - [facility] BUN 6(L) 8 - 23 mg/dL 05/26/2021 5:57 AM [facility] - [facility] CREATININE 0.64 0.51 - 0.95 mg/dL 05/26/2021 5:57 AM [facility] - [facility] GLUCOSE 99 74 - 99 mg/dL 05/26/2021 5:57 AM [facility] - [facility] TOTAL PROTEIN 7.3 6.7 - 8.6 g/dL 05/26/2021 5:57 AM [facility] - [facility] ALBUMIN 4.0 3.5 - 5.2 g/dL 05/26/2021 5:57 AM [facility] - [facility] BILIRUBIN TOTAL 1.1 0.2 - 1.1 mg/dL 05/26/2021 5:57 AM [facility] - [facility] ALKALINE PHOSPHATASE 374(H) 35 - 104 U/L 05/26/2021 5:57 AM [facility] - [facility] AST 51(H) <33 U/L 05/26/2021 5:57 AM [facility] - [facility] ALT 74(H) <34 U/L 05/26/2021 5:57 AM [facility] - [facility] GFR >60 mL/min/1.7 3 sq meter 05/26/2021 5:57 AM [facility] - [facility] Comment: eGFR [...] 3 sq meter 05/26/2021 5:[address] [facility] - [facility] ANION GAP 13 8 - 16 mmol/L 05/26/2021 5:[address] [facility] - [facility] Blood Venipuncture / Unknown 05/26/2021 4:57 AM CDT 05/26/2021 5:[address] [facility] - [facility] - 05/26/2021 5:57 AM CDT Samples containing indocyanine green cause interferences on Total and/or Direct Bilirubin and must not be measured. Nancy Suárez MD CHEMISTRY ORDERABLES [facility]# [id number] [address] [place] [address] * (ABNORMAL) CBC WITH DIFFERENTIAL (05/26/2021 4:57 AM CDT) WBC 6.8 4.0 - 9.8 K/uL 05/26/2021 5:[address] [facility] - [facility] RBC 3.60(L) 3.90 - 4.90 M/uL 05/26/2021 5:[address] [facility] - [facility] HEMOGLOBIN 9.8(L) 11.8 - 14.8 g/dL 05/26/2021 5:[address] [facility] - [facility] HEMATOCRIT 30.4(L) 35.5 - 44.0 % 05/26/2021 5:[address] [facility] - [facility] MCV 84.4 82.0 - 99.0 fL 05/26/2021 5:[address] [facility] - [facility] MCH 27.2 27.2 - 32.6 pg 05/26/2021 5:[address] [facility] - [facility] MCHC 32.2 31.5 - 35.5 g/dL 05/26/2021 5:33 AM CDT [facility] - [facility] RDW 14.3 11.5 - 14.5 % 05/26/2021 5:33 AM CDT [facility] RDW-STDEV 43.8 37.1 - 48.7 fL 05/26/2021 5:33 AM CDT [facility] - [facility] PLATELETS 379(H) 140 - 350 K/uL 05/26/2021 5:33 AM CDT [facility] MPV 9.5 9.3 - 12.4 fL 05/26/2021 5:33 AM CDT [facility] NEUTROPHILS 78 % 05/26/2021 5:33 AM CDT [facility] LYMPHOCYTES 17 % 05/26/2021 5:33 AM CDT [facility] MONOCYTES 4 % 05/26/2021 5:33 AM CDT [facility] EOSINOPHILS 0 % 05/26/2021 5:33 AM CDT [facility] BASOPHILS 0 % 05/26/2021 5:33 AM CDT [facility] IMMATURE GRANULOCYTES 0 % 05/26/2021 5:33 AM CDT [facility] NEUTROPHIL ABSOLUTE 5.31 1.90 - 7.00 K/uL 05/26/2021 5:33 AM CDT [facility] - [facility] LYMPHOCYTE ABSOLUTE 1.18 0.70 - 4.50 K/uL 05/26/2021 5:33 AM CDT [facility] MONOCYTE ABSOLUTE 0.27 0.10 - 1.30 K/uL 05/26/2021 5:33 AM CDT [facility] EOSINOPHIL ABSOLUTE 0.01 0.00 - 0.70 K/uL 05/26/2021 5:33 AM CDT [facility] BASOPHILS ABSOLUTE 0.01 0.00 - 0.20 K/uL 05/26/2021 5:33 AM CDT [facility] - [facility] IMMATURE GRANULOCYTES ABSOLUTE 0.02 0.00 - 0.03 K/uL 05/26/2021 5:33 AM CDT [facility] Blood Venipuncture / Unknown 05/26/2021 4:57 AM CDT 05/26/2021 5:20 AM CDT Maurice Giordano MD HEMATOLOGY ORDERABLE S [facility] CLIA# [id number] [address] [place] [address] * ERCP REPORT (05/25/2021 7:08 PM CDT) Narrative Procedure Note Omar Gonzalez MD - 05/25/2021 7:07 PM CDT [facility] Patient Name: January Procedure Date: 05/25/2021 [...] Loss: Estimated blood loss: none. Findings: The gis application developer film was normal. The esophagus was successfully [...] mm biliary sphincterotomy was performed. A 7 Monegasque by 9 cm pancreatic stent with internal [...] Number of Addenda: 0 [address] ; [place] [address] Omar Gonzalez MD GI PROCEDURE ORDERAB LES * UPPER ENDOSCOPIC ULTRASOUND REPORT (05/25/2021 6:56 PM CDT) Narrative Procedure Note Omar Gonzalez MD - 05/25/2021 6:55 PM CDT [facility] Patient Name: Krissy Oneal Procedure Date: [...] of Addenda: [address]; [place] [address] Omar Gonzalez MD GI PROCEDURE ORDERAB LES * XR ERCP BILIARY AND PANCREATIC (05/25/2021 5:45 PM CDT) Anatomical Region Laterality Modality Abdomen Computed Radiogr aphy 05/25/2021 5:46 PM CDT Impressions 05/25/2021 5:50 PM CDT IMPRESSION: As above. Fluoroscopy time: 2.3 minutes DICTATION LOCATION: [address] Narrative 05/25/2021 5:50 PM CDT XR ERCP [...] Fluoroscopy time: 2.3 minutes DICTATION LOCATION: Location [address] [place] [address] Omar Gonzalez MD DIAGNOSTIC IMAGING O RDERABLES * PATHOLOGY (05/25/2021 5:13 PM CDT) CASE REPORT Surgical Pathology R eport ? Case: [id number] ? Authorizing Provider: ??Omar Gonzalez MD ?Collected: ? 05/25/2021 05:13 PM ? Ordering Location: ? [facility] [place] ??Received: ?05/26/2021 08:16 AM ? Pathologist: ? Sawyer Tovar MD ? Specimens: ?? A) - Other, specify, ampullary mass ? B) - Other, specify, ampulla bx ? 5:06 PM [facility] FINAL DIAGNOSIS Ampulla, mass , biopsy: - At least high-grade dysplasia/adenocarcinoma in situ (see microscopic description). Ampulla, biopsy: - Invasive adenocarcinoma, moderately differentiated. 5:06 PM [facility] S DESCRIPTION The specimens are received in [...] dimension. All are submitted in cassette B1. [facility] 1 5:06 PM [facility] MICROSCOPIC DESCRIPTION Received are slides labeled [id number], Jm,Krissy M. The submitted ampullary mass contain highly fragmented pieces of neoplastic glandular epithelium, with moderately increased N:C ratio, moderately abundant pink cytoplasm, round to focally pseudostratified nuclei, conspicuous single cell necrosis and scattered mitotic figures. The sampled tissue is superficial, with a minimal amount of attached stroma, precluding evaluation of invasion, but show focal glandular architectural complexity, characterized by [id number] glands and focal cribriform growth pattern, reflective [...] of an ampullary primary. 1 5:06 PM [facility] OPERATIVE PROCEDURE 1: ULTRASOUND ENDOSCOPIC 2: CHOLANGIOPANCREATOGRAPHY RETROGRADE ENDOSCOPIC 3: ESOPHAGOGASTRODUODENOSCOP Y 1 5:06 PM [facility] CLINICAL INFORMATION A EUS/FNB pass 1-3 EUS/FNB pass 1-3 1 5:06 PM [facility] COMMENT Special stain and/or immunohistochemical results are interpreted with controls that demonstrate appropriate staining reactions. Note on use of immunocytochemistry reagents: This test was developed and its performance characteristics determined by [facility], Department of Laboratory Medicine. It has [...] part or completely in the following laboratories: [facility], [place] #[id number] [address] [place] [address] [facility], [place] #[id number] [address] [place] [address] [facility]/[place], [place] #[id number] [address] [place] [address] This report was created with the Technology [employer]ire[employer] voice-activated dictation system. Inherent to this system is the possibility of syntax, grammar, punctuation and other errors that could impact the interpretation of the report. If there are interpretative questions about aspects of this report, please contact the performing pathologist. 5:06 PM CDT [facility] Tissue (Other, specify) Collection / Unknown 05/25/2021 5:13 PM CDT 05/26/2021 8:16 AM CDT Comment:EUS/FNB pass 1-3 Tissue specimen (specimen) (Other, specify) Collection / Unknown 05/25/2021 5:28 PM CDT 05/26/2021 8:16 AM CDT Comment:ampulla mass Omar Gonzalez MD PATHOLOGY/CYTOLOGY O RDERABLES [facility]# [id number] [address] [place] [address] * (ABNORMAL) HEPATIC FUNCTION PANEL (05/25/2021 5:19 AM CDT) TOTAL PROTEIN 6.9 6.7 - 8.6 g/dL 05/25/2021 6:24 AM CDT [facility] ALBUMIN 3.8 3.5 - 5.2 g/dL 05/25/2021 6:24 AM CDT [facility] BILIRUBIN TOTAL 2.4(H) 0.2 - 1.1 mg/dL 05/25/2021 6:[address] [facility] - [facility] BILIRUBIN DIRECT 1.9(H) <0.4 mg/dL 05/25/20 6:[address] [facility] ALKALINE PHOSPHATASE 392(H) 35 - 104 U/L 05/25/2021 6:[address] [facility] AST 85(H) <33 U/L 05/25/2021 6:[address] [facility] ALT 77(H) <34 U/L 05/25/2021 6:24 AM [facility] Blood Venipuncture / Unknown 05/25/2021 5:19 AM CDT 05/25/2021 5:48 AM CDT [facility] LABORATORY [facility] - 05/25/2021 6:24 AM CDT Samples containing indocyanine green cause interferences on Total and/or Direct Bilirubin and must not be measured. Maurice Giordano MD CHEMISTRY ORDERABLES [facility]# [id number] [address] [place] [address] [place] [id number] * (ABNORMAL) BASIC METABOLIC PANEL (05/25/2021 5:19 AM CDT) SODIUM 139 136 - 145 mmol/L 05/25/2021 6:[address] [facility]. [facility] POTASSIUM 3.9 3.5 - 5.0 mmol/L 05/25/2021 6:[address] [facility] CHLORIDE 102 98 - 107 mmol/L 05/25/2021 6:[address] [facility] CO2 27 22 - 29 mmol/L 05/25/2021 6:[address] [facility] CALCIUM 9.6 8.6 - 10.2 mg/dL 05/25/2021 6:[address] [facility] BUN 7(L) 8 - 23 mg/dL 05/25/2021 6:[address] [facility] CREATININE 0.69 0.51 - 0.95 mg/dL 05/25/2021 6:24 AM T [facility] GLUCOSE 159(H) 74 - 99 mg/dL 05/25/2021 6:24 AM T [facility] GFR >60 mL/min/1.7 3 sq meter 05/25/2021 6:[address] [facility] Comment: eGFR has not been validated [...] 3 sq meter 05/25/2021 6:[address] [facility] ANION GAP 10 8 - 16 mmol/L 05/25/2021 6:24 AM [facility] Blood Venipuncture / Unknown 05/25/2021 5:19 AM CDT 05/25/2021 5:48 AM CDT Maurice Giordano MD CHEMISTRY ORDERABLES [facility]# [id number] 5 [facility] [place] [address] * (ABNORMAL) CBC WITH DIFFERENTIAL (05/25/2021 5:19 AM CDT) WBC 5.6 4.0 - 9.8 K/uL 05/25/2021 6:[address] [facility] RBC 3.38(L) 3.90 - 4.90 M/uL 05/25/2021 6:00 AM [facility]ORATORY SERVICES - [facility] HEMOGLOBIN 9.1(L) 11.8 - 14.8 g/dL 05/25/2021 6:00 AM [facility] - [facility] HEMATOCRIT 28.1(L) 35.5 - 44.0 % 05/25/2021 6:00 AM [facility] - . [facility] MCV 83.1 82.0 - 99.0 fL 05/25/2021 6:00 AM [facility] - . [facility] MCH 26.9(L) 27.2 - 32.6 pg 05/25/2021 6:00 AM [facility] - . [facility] MCHC 32.4 31.5 - 35.5 g/dL 05/25/2021 6:00 AM [facility] - . [facility] RDW 14.5 11.5 - 14.5 % 05/25/2021 6:00 AM [facility] - [facility] RDW-STDEV 43.2 37.1 - 48.7 fL 05/25/2021 6:00 AM [facility] - [facility] PLATELETS 352(H) 140 - 350 K/uL 05/25/2021 6:00 AM [facility] - . [facility] MPV 10.0 9.3 - 12.4 fL 05/25/2021 6:00 AM [facility] - . [facility] NEUTROPHILS 75 % 05/25/2021 6:00 AM [facility] - [facility] LYMPHOCYTES 18 % 05/25/2021 6:00 AM [facility] - [facility] MONOCYTES 6 % 05/25/2021 6:00 AM [facility] - [facility] EOSINOPHILS 0 % 05/25/2021 6:00 AM [facility] - . [facility] BASOPHILS 0 % 05/25/2021 6:00 AM [facility] - . [facility] IMMATURE GRANULOCYTES 0 % 05/25/2021 6:00 AM [facility] - . [facility] NEUTROPHIL ABSOLUTE 4.22 1.90 - 7.00 K/uL 05/25/2021 6:00 AM [facility] - . [facility] LYMPHOCYTE ABSOLUTE 1.03 0.70 - 4.50 K/uL 05/25/2021 6:[address] [facility] MONOCYTE ABSOLUTE 0.33 0.10 - 1.30 K/uL 05/25/2021 6:[address] [facility] EOSINOPHIL ABSOLUTE 0.02 0.00 - 0.70 K/uL 05/25/2021 6:[address] [facility] BASOPHILS ABSOLUTE 0.02 0.00 - 0.20 K/uL 05/25/2021 6:[address] [facility] IMMATURE GRANULOCYTES ABSOLUTE 0.01 0.00 - 0.03 K/uL 05/25/2021 6:[address] [facility] Blood Venipuncture / Unknown 05/25/2021 5:19 AM CDT 05/25/2021 5:48 AM CDT Maurice Giordano MD HEMATOLOGY ORDERABLE S [facility]# [id number] 5 [facility] [place] [address] * CT CHEST ABDOMEN PELVIS W CONT [...] portal veins are patent. DICTATION LOCATION: Location - [facility] The examination was performed with the adjustment [...] are patent. DICTATION LOCATION: Location 2 - [facility] The examination was performed with the adjustment of mA according to the patient size and/or the use of Iterative Reconstruction Technique. Nancy Suárez MD CT ORDERABLES * 2019 NOVEL CORONAVIRUS (COVID-19) PCR DETECTION (05/24/2021 1:45 PM CDT) COVID-19 PCR NOT DETECTED Not Detected 05/24/20 21 3:[address] [facility] LABORATORY [facility] PERFORMING LAB [facility] [place] 05/24/2021 3:25 PM CDT [facility] Upper Respiratory ENTIRE NASOPHARYNX / Unknown Collection / Unknown 05/24/2021 1:45 PM CDT 05/24/2021 1:56 PM CDT [facility] LABORATORY [facility] - 05/24/2021 3:25 PM CDT This test [...] - GEN ERAL ORDERABLES Performing Organization Address City/[facility]/ZIP Co de Phone Number [facility]# [id number] [address] [place] [address] * (ABNORMAL) LIPASE (05/24/2021 5:45 AM CDT) Pathologist [facility] LIPASE 1,453(H) 13 - 60 U/L 05/24/2021 7:[address] [facility] Blood Venipuncture / Unknown 05/24/2021 5:45 AM CDT 05/24/2021 6:09 AM CDT Maurice Giordano MD CHEMISTRY ORDERABLES Performing Organization Address City/[facility]/ZIP Co de Phone Number [facility]# [id number] [address] [place] [address] * (ABNORMAL) HEPATIC FUNCTION PANEL (05/24/2021 5:45 AM CDT) Pathologist [facility] TOTAL PROTEIN 6.4(L) 6.7 - 8.6 g/dL 05/24/2021 7:[address] [facility] ALBUMIN 3.5 3.5 - 5.2 g/dL 05/24/2021 7:[address] [facility] BILIRUBIN TOTAL 2.5(H) 0.2 - 1.1 mg/dL 05/24/2021 7:[address] [facility] BILIRUBIN DIRECT 2.0(H) <0.4 mg/dL 05/24/20 7:[address] [facility] ALKALINE PHOSPHATASE 342(H) 35 - 104 U/L 05/24/2021 7:[address] [facility] AST 73(H) <33 U/L 05/24/2021 7:31 AM [facility] ALT 65(H) <34 U/L 05/24/2021 7:31 AM [facility] Blood Venipuncture / Unknown 05/24/2021 5:45 AM CDT 05/24/2021 6:09 AM CDT [facility] LABORATORY SERVICES - [facility] - 05/24/2021 7:31 AM CDT Samples containing indocyanine green cause interferences on Total and/or Direct Bilirubin and must not be measured. Maurice Giordano MD CHEMISTRY ORDERABLES [facility]# [id number] [address] [place] [id number] * (ABNORMAL) BASIC METABOLIC PANEL (05/24/2021 5:45 AM CDT) SODIUM 139 136 - 145 mmol/L 05/24/2021 7:31 AM [facility] POTASSIUM 3.2(L) 3.5 - 5.0 mmol/L 05/24/2021 7:31 AM [facility] CHLORIDE 106 98 - 107 mmol/L 05/24/2021 7:31 AM [facility] CO2 23 22 - 29 mmol/L 05/24/2021 7:31 AM [facility] CALCIUM 8.9 8.6 - 10.2 mg/dL 05/24/2021 7:31 AM [facility] BUN 3(L) 8 - 23 mg/dL 05/24/2021 7:31 AM [facility] CREATININE 0.63 0.51 - 0.95 mg/dL 05/24/2021 7:31 AM [facility] GLUCOSE 110(H) 74 - 99 mg/dL 05/24/2021 7:31 AM T [facility] GFR >60 mL/min/1.7 3 sq meter 05/24/2021 7:31 AM T [facility] Comment: eGFR has not been validated [...] mL/min/1.7 3 sq meter 05/24/2021 7:[address] [facility] ANION GAP 10 8 - 16 mmol/L 05/24/2021 7:31 AM [facility] Blood Venipuncture / Unknown 05/24/2021 5:45 AM CDT 05/24/2021 6:09 AM CDT Maurice Giordano MD CHEMISTRY ORDERABLES Performing Organization Address City/State/[facility] Co de Phone Number [facility]# [id number] [address] [place] [id number] documented in this encounter Visit Diagnoses Diagnosis Pancreatic mass- Primary Unspecified disease of pancreas Pancreatic mass Unspecified disease of 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 Acute diarrhea Diarrhea COPD (chronic obstructive pulmonary disease) Chronic airway obstruction, not elsewhere classified Acute pancreatitis without necrosis or infection, unspecified Benign hypertension Essential hypertension, benign Jaundice, non- Jaundice, unspecified, not of Abdominal pain Abdominal pain, unspecified site Elevated LFTs Other abnormal blood chemistry Bacteremia due to Klebsiella pneumoniae Bacteremia documented in this encounter Administered Medications Inactive Administered Medications - up to 3 most recent administrations Medication Order MAR Action Action Date Dose Rate Site acetaminophen (TYLENOL) tablet 650 mg 650 mg, Oral, EVERY 6 HOURS PRN, Starting on Sat05/24/21 at 0512, Until 06/01/21 at 2109, Other (See Comment), See [...] 2.5 mg, Oral, DAILY, First dose on 05/27/21 at 1730, Until Discontinued, Routine Given 06/01/2021 [...] 8:56 PM CDT 2,000 mg 200 mL/hr cefePIME (MAXIPIME) 2,000 mg in sodium chloride 0.9% 50 mL IVPB (MBP) 2,000 mg, IV, EVERY 12 HOURS (BlD), First dose (after last reorder) on Sat05/29/21 at 0900, Until Discontinued, Routine, Renally dose please, Antibiotic Indication: Bacteremia, Is sepsis suspected? Unlikely New Bag 05/31/2021 10:45 AM CDT 2,000 mg 118 mL/hr New Bag 05/30/2021 8:58 PM CDT 2,000 mg 118 mL/hr Rate Verify 05/30/2021 8:46 AM CDT 118 mL/hr ciprofloxacin in dextrose 5% (CIPRO) IVPB 400 mg 400 mg, IV, EVERY 12 HOURS (BlD), First dose on Sat05/28/21 at 2345, Until Discontinued, Routine, Antibiotic Indication: Other: Enter in Comments, Antibiotic Indication: fever unknown source, Is sepsis suspected? Unlikely New Bag 05/29/2021 1:05 AM CDT 400 mg 200 mL/hr dextrose 5 % in water 250 mL flush bag 25 mL 25 mL, IV, SEE ADMIN INSTRUCTIONS, Starting on Sat05/24/21 at 0527, Until Avani 06/01/21 at 2109, Routine dextrose 5% - sodium chloride 0.9% infusion IV, at 100 mL/hr, CONTINUOUS, Starting on Sat05/24/21 at 0515, Until Avani 05/25/21 at 0514, Routine Rate Verify 05/24/2021 7:56 PM CDT 100 mL/hr Restarted 05/24/2021 7:32 PM CDT 100 mL/hr Rate Change 05/24/2021 2:47 PM CDT 100 mL/hr diphenhydrAMINE (BENADRYL) injection 50 mg 50 mg, IV, ONE TIME ONLY, 1 dose, On Sat05/24/21 at 1145, Routine Given 05/24/2021 3:45 PM CDT 50 mg docusate sodium (COLACE) [...] propionate (FLONASE) 50 mcg/spray nasal inhaler 2 [place] 2 [place], Both Nostrils, DAILY, First dose on Sat05/24/21 at 0900, Until Discontinued, Routine, Previous Med: fluticasone propionate (FLONASE) 50 mcg/spray [place], Suspension nasal inhaler - Orig Sig - [...] Given 05/27/2021 1:26 AM CDT 10 mg hydrALAZINE (APRESOLINE) tablet 25 mg 25 mg, Oral, ONE TIME ONLY, 1 dose, On Sat05/26/21 at 0315, Routine Given 05/26/2021 3:11 AM CDT 25 mg hydroCHLOROthiazide tablet 25 mg 25 mg, Oral, DAILY, First dose on Sat05/24/21 at 0900, Until Discontinued, Routine, Previous Med: hydroCHLOROthiazide 25 mg tablet - Orig Sig - Take 25 mg by mouth daily. Given 05/25/2021 9:11 AM CDT 25 mg Given 05/24/2021 9:22 AM CDT 25 mg hydroCHLOROthiazide tablet 37.5 mg 37.5 mg, [...] PRN, Starting on Sat05/26/21 at 1232, Until Sat06/01/21 at 2109, Pain (See admin instructions), Routine HYDROcodone-acetaminophen (NORCO) 5-325 mg per tablet 1 Tablet 1 Tablet, Oral, EVERY 4 HOURS PRN, Starting on Sat05/24/21 at 0512, Until Sat06/01/21 at 2109, Pain (See admin instructions), Routine Given 06/01/2021 10:35 AM CDT 1 Tablet Feeding Started 05/31/2021 7:09 PM CDT 1 Tablet Given 05/29/2021 7:15 PM CDT 1 Tablet hydrocortisone sod succ (PF) (SOLU-CORTEF PF) injection 100 mg 100 mg, IV, ONE TIME ONLY, 1 dose, On Sat05/24/21 at 1145, Routine Given 05/24/2021 2:44 PM CDT 100 mg hydrOXYzine HCL (ATARAX) tablet 25 mg 25 mg, Oral, ONE TIME ONLY, 1 dose, On Sat05/24/21 at 1915, Routine Given 05/24/2021 7:29 PM CDT 25 mg iopamidoL (ISOVUE-300) 61 % injection (drawn from multi-use bulk pack) 120 mL 120 mL, IV, INTRA-PROCEDURE ONCE, 1 dose, Starting on Sat05/24/21 at 1638, Until Sat05/24/21 at 1703, Routine Contrast Given 05/24/2021 5:03 PM CDT 120 mL lactated ringers infusion IV, at 125 mL/hr, PRE-PROCEDURE CONTINUOUS, Starting on Sat05/25/21 at 1300, Until Sat05/25/21 at 1854, Routine, Pre-Procedure New Bag 05/25/2021 4:59 PM CDT Continue from Pre-Op 05/25/2021 4:17 PM CDT 125 mL/hr New Bag 05/25/2021 12:53 PM CDT 125 mL/hr metroNIDAZOLE (FLAGYL) IVPB 500 mg 500 mg, IV, EVERY 8 HOURS, First dose on Sat05/28/21 at 2345, Until Discontinued, Routine, Antibiotic Indication: Other: Enter in Comments, Antibiotic Indication: Fever unknown source, Is sepsis suspected? Unlikely New Bag 05/29/2021 2:25 AM CDT 500 mg 1 00 mL/hr morphine 4 mg/mL injection 4 mg 4 mg, IV, ONE TIME ONLY, 1 dose, On Sat05/24/21 at 0500, Routine Given 05/24/2021 5:17 AM CDT 4 mg morphine 4 mg/mL injection 4 mg 4 mg, IV, EVERY 4 HOURS PRN, Starting on Sat05/24/21 at 0513, Until Avani 06/01/21 at 2109, Pain (See admin instructions), Routine Given 05/29/2021 12:54 PM CDT 4 mg Given 05/28/2021 12:32 PM CDT 4 mg Given 05/26/2021 7:32 PM CDT 4 mg Neomycin-Bacitracin Zn-Polymyxin (NEOSPORIN) topical ointment 1 Packet Topical, ONE TIME PRN, 1 dose, Starting on Sat05/24/21 at 1938, Until Sat05/24/21 at 2153, Other (See Comment), Old IV scab, pt stated pus came off, Routine Given 05/24/2021 9:53 PM CDT 1 Packet Wrist, Right pantoprazole (PROTONIX) tablet 40 mg 40 mg, [...] Until Avani 06/01/21 at 2109, Constipation, Routine potassium chloride (KLOR-CON) SR tablet 40 mEq 40 mEq, Oral, ONE TIME ONLY, 1 dose, On Sat05/24/21 at 0815, Routine Given 05/24/2021 9:23 AM CDT 40 mEq potassium chloride (KLOR-CON) SR tablet 40 mEq 40 mEq, Oral, ONE TIME ONLY, 1 dose, On Sat05/26/21 at 0745, Routine Given 05/26/2021 7:59 AM CDT 40 mEq potassium chloride (KLOR-CON) SR tablet 40 mEq 40 mEq, Oral, ONE TIME ONLY, 1 dose, On Sat05/28/21 at 1615, Routine Given 05/28/2021 4:43 PM CDT 40 mEq potassium chloride (KLOR-CON) SR tablet 40 mEq 40 mEq, Oral, ONE TIME ONLY, 1 dose, On Sat05/30/21 at 1345, Routine Given 05/30/2021 2:27 PM CDT 40 mEq potassium chloride 40 mEq in sodium chloride 0.9% 250 mL IVPB 40 mEq, IV, EVERY 4 HOURS, 2 doses, First dose on Sat05/30/21 at 1500, Last dose on Sat05/30/21 at 1900, at 76.25 mL/hr, Administer over 4 Hours, Routine New Bag 05/30/2021 7:00 PM CDT 40 mEq 30 mL/hr Rate Verify 05/30/2021 6:35 PM CDT 30 mL/hr Rate Change 05/30/2021 4:19 PM CDT 30 mL/hr quinapriL (ACCUPRIL) tablet 40 mg 40 mg, Oral, DAILY, First dose on Sat05/24/21 at 0900, Until Discontinued, Routine, Previous Med: quinapriL (ACCUPRIL) 40 mg tablet - Orig Sig - Take 40 mg by mouth daily. Given 05/25/2021 9:11 AM CDT 40 mg Given 05/24/2021 9:23 AM CDT 40 mg quinapriL (ACCUPRIL) tablet 80 mg 80 mg, [...] PRN, Starting on Sat05/26/21 at 2125, Until Avani 06/01/21 at 2109, Gas, Routine Given 05/29/2021 9:37 AM CDT 40 mg Given 05/28/2021 12:32 PM CDT 40 mg Given 05/27/2021 3:08 PM CDT 40 mg sodium chloride 0.9 % 250 mL flush bag 25 mL 25 mL, IV, SEE ADMIN INSTRUCTIONS, Starting on Sat05/24/21 at 0527, Until Avani 06/01/21 at 2109, Routine sodium chloride 0.9% infusion IV, at 100 mL/hr, CONTINUOUS, Starting on 05/27/21 at 1645, Until 05/28/21 at 0244, Routine New Bag 05/27/2021 6:22 PM CDT 100 mL/hr sodium chloride flush injection 10 mL 10 mL, IV, SEE ADMIN INSTRUCTIONS, Starting on Sat05/24/21 at 1638, Until Sat05/24/21 at 2037, Routine Given 05/24/2021 5:03 PM CDT 10 mL sodium chloride flush injection 5 mL [...] 2.5 mg, Oral, DAILY, First dose on 05/27/21 at 1730, Until Discontinued, Routine 0839 (Given - Provider: Yamileth Suarez RN) 09 (Given - Provider: Esperanza Charles RN) 1024 [...] JOSE Gannon)2125 (Stopped - Provider: JOSE Gannon) 104 (New Bag - Provider: JOSE Zaldivar)111 (Stopped - Provider: JOSE Zaldivar) cefePIME (MAXIPIME) [...] propionate (FLONASE) 50 mcg/spray nasal inhaler 2 [place] 2 [place], Both Nostrils, DAILY, First dose on Sat05/24/21 at 0900, Until Discontinued, Routine, Previous Med: fluticasone propionate (FLONASE) 50 mcg/spray [place], Suspension nasal inhaler - Orig Sig - [...] at 0527, Until Sat06/01/21 at 2109, Routine sodium chloride flush injection 5 mL 5 mL, IV, EVERY 12 HOURS (BlD), First dose on Sat05/24/21 at 0900, Until Discontinued, Routine 0900 (Given - Provider: Yamileth Suarez RN)2057 (Given - Provider: JOSE Gannon) 0921 (Given - Provider: Esperanza Charles RN)2100 (Given - Provider: JOSE Gannon) 1038 (Given [...] PRN, Starting on Sat05/24/21 at 0510, Until Sat06/01/21 at 210, Anxiety, Routine, Previous Med: ALPRAZolam (XANAX) 1 mg tablet - Orig Sig - Take 1 mg by mouth nightly as needed for Anxiety. 2057 (Given - Provider: JOSE Gannon) 2053 (Given - Provider: JOSE Gannon) docusate sodium (COLACE) capsule 100 mg 100 mg, Oral, TWO TIMES DAILY PRN, Starting on Sat05/27/21 at 1639, Until Sat06/01/21 at 210, Constipation, Routine HYDROcodone-acetaminop hen (NORCO) 10-325 mg per tablet 1 Tablet 1 Tablet, Oral, EVERY 4 HOURS PRN, Starting on Sat05/26/21 at 1232, Until Sat06/01/21 at 210, Pain (See admin instructions), Routine HYDROcodone-acetaminop hen (NORCO) 5-325 mg per tablet 1 Tablet 1 Tablet, Oral, EVERY 4 HOURS PRN, Starting on Sat05/24/21 at 0512, Until Sat06/01/21 at 210, Pain (See admin instructions), Routine 1909 (Feeding Started - Provider: Esperanza Charles RN) 1035 (Given - Provider: JOSE Zaldivar) ipratropium-albuteroL (DUONEB) 0.5 mg-3 mg(2.5 mg base)/3 mL inhalation solution 3 mL 3 mL, Inhalation, EVERY 6 HOURS PRN RESPIRATORY, Starting on Sat05/24/21 at 0511, Until Sat06/01/21 at 210, Shortness of Breath, Wheezing, Routine morphine 4 mg/mL injection 4 mg 4 mg, IV, EVERY 4 HOURS PRN, Starting on Sat05/24/21 at 0513, Until Sat06/01/21 at 210, Pain (See admin instructions), Routine ondansetron (ZOFRAN ODT) tablet 4 mg 4 mg, Oral, EVERY 6 HOURS PRN, Starting on Sat05/24/21 at 0513, Until Sat06/01/21 at 2109, Nausea/Emesis, Routine ondansetron (ZOFRAN) 4 mg/2 mL injection 4 mg 4 mg, IV, EVERY 6 HOURS PRN, Starting on Sat05/24/21 at 0513, Until Avani 06/01/21 at 2109, Nausea/Emesis, Routine polyethylene glycol (MIRALAX) packet 17 Gram 17 Gram, Oral, TWO TIMES DAILY PRN, Starting on 05/27/21 at 1639, Until Avani 06/01/21 at 210, Constipation, Routine sennosides (SENOKOT) tablet 8.6 mg 8.6 mg, Oral, DAILY PRN, Starting on 05/27/21 at 1639, Until Avani 06/01/21 at 210, Constipation, Routine simethicone chewable tablet 40 mg 40 mg, Oral, EVERY 6 HOURS PRN, Starting on Sat05/26/21 at 2125, Until Sat06/01/21 at 210, Gas, Routine documented in this encounter Additional Health Concerns Infection Onset Date Last Indicated Resolved Time R/O C. diff 05/24/2021 05/24/2021 05/24/2021 5:09 AM CDT R/O GI Pathogen 05/24/2021 05/24/2021 05/26/2021 6 :56 AM CDT R/O C. diff 05/31/2021 05/31/2021 05/31/2021 8:29 PM CDT documented as of this encounter Care Teams Inhalation Therapy Aides Teacher Relationship Specialty Start Date End Date Rosibel Muse MD PCP - General Family Practice 05/24/21 05/06/24 documented as of this encounter
--- OUTSIDE RECORDS SUMMARY | 2024-08-17 09:08 | XMS_ITS | Encounter Summary ---
Author Organization [facility] [employer] [facility] Address [address] [place] [address] Care Team Providers Care Car Distributor Name Role Phone Rosibel Muse MD Primary Care Provider [phone] Encounter Details Date Type Department Care Team ([facility] Contact Info) Description 06/19/2021 Orders Only [facility] Oncology and Hematology - [place] [place] [address] Royal Newell MD [address] [facility] [address] [place] [address] Ampullary carcinoma (Primary Dx) Social [...] (Late Contact Info) Description 08/25/2024 2:00 PM MEDICAL OFFICER PSYCHIATRY Office Visit [facility] Oncology and Hematology - [place] [place] [address] Royal Newell MD [address] [facility] [address] [place] [phone] documented as of this encounter Visit Diagnoses Diagnosis 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
== END 2024-08-10 07:42 | disposition home or self-care (01) ==
PROVIDERS: PCP Nurse Practitioner; Visit Provider Internal Medicine Hematology & Oncology
DX: C24.1 Malignant neoplasm of ampulla of Vater (principal); F41.9 Anxiety disorder, unspecified; E11.9 Type 2 diabetes mellitus without complications; E55.9 Vitamin D deficiency, unspecified; E78.5 Hyperlipidemia, unspecified
CPT/HCPCS: 36415; 36591; 71260; 74177; 80053; 80061; 82043; 82306; 83036; 84443; 85025; 86301; Q9967

== ENCOUNTER 2024-09-01 14:36 | Outpatient (CLI) | payer MEDICARE, MEDICAID, SELFPAY ==
--- NOTE | ~2024-09-01 | XR_ITS ---
XR chest 2V 09/01/2024 15:12 Indication: Cough Procedure: 2 view chest Comparison: Comparison to multiple prior studies sequentially, with oldest reviewed study dated 10/22. Findings: Portacatheter tip in the SVC. Chronic elevation right diaphragm. No focal air space disease , pulmonary edema, pleural effusion or suspected pneumothorax. Impression: 1: No acute cardiopulmonary disease. Reviewed, dictated and finalized at location A. MS ATTORNEY Impression: 1: No acute cardiopulmonary disease.
--- OUTSIDE RECORDS SUMMARY | 2024-09-03 19:11 | XMS_ITS ---
Author Organization [facility] Address [address] [place] [phone] Phone Care Team Providers Care Seat Scooper Machine Name Role Phone Kathya Orona Primary Care Provider [phone] Active Problems Problem Noted Date Diagnosed Date Incarcerated incisional hernia 08/30/2022 Pancreatic fistula 01/09/2022 Bacteremia due to Klebsiella pneumoniae 05/29/20 Primary cancer of ampulla of Vater 05/24/2021 Acute diarrhea 05/24/2021 COPD (chronic obstructive pulmonary disease) Acute pancreatitis without n ecrosis or infection, unspecified 05/24/2021 Benign hypertension 05/24/2021 Pancreatic mass Jaundice, non- Abdominal pain Elevated LFTs Current Treatment and Therapy Plans No current plan information found. Past Treatment and Therapy Plans No past plan information found. Lifetime Dose Tracking * Chemical Lifetime Dose Automatic Entry Manual Entr y Effective Dose 74.66 mSv 74.66 mSv 0 mSv Total DLP 3,177.68 DLP 3,177.68 DLP 0 DLP CTDIvol Max 36.61 mGy 36.61 mGy 0 mGy CTDIvol Min 4.4 mGy 4.4 mGy 0 mGy
--- OUTSIDE RECORDS SUMMARY | 2024-09-03 19:11 | XMS_ITS | Clinical Summary ---
Author Organization [facility] Address [address] [place] [address] Phone Care Team Providers Care Pelletizer Operator Name Role Phone GamalloydKimberlyn dickna Kirsten Primary Care Provider [phone] Allergies Active Allergy Reactions Criticality Noted Date Comments Erythromycin Itching Low 05/25/2021 Iodinated Contrast Media Itching Medium 06/23/2018 Kiwi Rash,Itching Low 06/23/2018 Macrolide Antibiotics Itching Low 06/02/2018 Naproxen Sodium Itching Low 06/02/2018 Nitrofurantoin Itching Low 04/21/2013 Itching Penicillins Itching Low 06/02/2018 Sulfa (Sulfonamide Antibiotics) Dizziness,Itching Medium 06/02/2018 Medications ALPRAZolam (XANAX) 1 mg tablet Take 1 mg by mouth nightly as needed for Anxiety. Active fluticasone propionate (FLONASE) 50 mcg/spray [place], Suspension nasal inhaler Administer 2 Sprays in each nostril 1 time daily as needed. Active hydroCHLOROthi azide 25 mg tablet Take 37.5 mg by mouth daily. Takes 1 1/2 tablets Active albuterol sulfate 90 mcg/Actuation inhaler Take 2 Puffs by inhalation every 4 hours as needed for Shortness of Breath. Active simvastatin (ZOCOR) 20 mg tablet Take 20 mg by mouth daily at bedtime. Active sertraline (ZOLOFT) 50 mg tablet Take 50 mg by mouth daily at bedtime. Active budesonide-for moteroL (SYMBICORT) 160-4.5 mcg/actuation HFA Aerosol Inhaler Take 2 Puffs by inhalation 2 times daily as needed. Active amLODIPine (NORVASC) 5 mg tablet Take 10 mg by mouth daily. 2 Active cyanocobalamin , vitamin B-12, (Vitamin B-12) 5,000 mcg/mL Drops Place 5,000 mcg under tongue daily. Active iron,carb/vit C/vit B12/folic (IRON 100 PLUS ORAL) Take 100 mg by mouth daily. liquid Active naloxone (NARCAN) 4 mg/spray [place], Non-Aerosol EMERGENCY USE ONLY: Administer 1 spray (4 mg) in one nostril one time. May repeat in alternating nostrils every 2-3 min until responsive or EMS arrives. 2 Each 3 01/08/2022 12:39 PM CDT 2 Active losartan (COZAAR) 100 mg tablet Take 100 mg by mouth every 24 hours. Active metFORMIN (GLUMETZA) 500 mg Extended Release 24 hour tablet Take 2 tablets every day by oral route. 3 Active ondansetron (ZOFRAN ODT) 4 mg Tablet, Rapid Dissolve Take 1 Tablet (4 mg) by mouth every 8 hours as needed for Nausea/Emesis. Dissolve tablet on top of tongue, then swallow with saliva. You can take 1 tablet 15-30 minutes prior to each radiation treatment. 30 Tablet 3 3 Active omeprazole (PriLOSEC) 40 mg Capsule, Delayed Release(E.C.) Take 1 Capsule (40 mg) by mouth daily. 30 Capsule 3 3 Active potassium chloride (KLOR-CON) 20 mEq Extended Release tablet take 1 tablet by mouth daily 100 Tablet 2 4 Active dicyclomine (BENTYL) 20 mg tablet TAKE 1 TABLET BY MOUTH FOUR TIMES DAILY FOR 30 DAYS 4 Active diphenhydrAMIN E (BENADRYL) 50 mg capsule Take 1 tablet [address] scan. 1 Capsule 4 Active predniSONE (DELTASONE) 50 mg tablet Take 1 tablet by mouth [address] scan, [address] scan, and [address] scan. 3 Tablet 4 Active predniSONE (DELTASONE) 50 mg tablet Take 1 tablet by mouth [address] scan, [address] scan, and [address] scan. 3 Tablet 4 08/06/20 24 Discontin ued(Reord er) Active Problems Problem Noted Date Diagnosed Date Incarcerated incisional hernia 08/30/2022 Pancreatic fistula 01/09/2022 Bacteremia due to Klebsiella pneumoniae 05/29/20 21 Primary cancer of ampulla of Vater 05/24/2021 Acute diarrhea 05/24/2021 COPD (chronic obstructive pulmonary disease) Acute pancreatitis without n ecrosis or infection, unspecified 05/24/2021 Benign hypertension 05/24/2021 Pancreatic mass Jaundice, non- Abdominal pain Elevated LFTs Encounters Date Type Department Care Team Description 08/25/2024 2:00 PM COLLEGE ATHLETE Office Visit [facility] Oncology and Hematology - [address] [place] [address] Royal Newell MD Ampullary carcinoma (CMS/HCC) (Primary Dx) 08/19/2024 Orders Only [facility] On[facility] and Hematology - [address] [place] [id number] Royal Newell MD 08/14/2024 Orders Only [facility] On[facility] and Hematology - [address] [place] [address] Royal Newell MD 08/13/2024 Orders Only [facility] On[facility] and Hematology - [address] [place] [id number] Royal Newell MD 08/10/2024 Orders Only [facility] Oncology and Hematology - [address] [place] [address] Royal Newell MD Ampullary carcinoma (CMS/HCC) (Primary Dx) 08/06/2024 Refill [facility] - [address] [place] [address] Ti Castelan MD from Last 3 Months Immunizations Immunization Administration Dates Next Due INFLUENZA VACCINE QUADRIVALENT [...] at Not on file Legal Sex Female 11:54 PM CDT Gender Identity Not on file Sexual Orientation Not on file Last Filed Vital Signs Vital Sign Reading Time Taken Comments Blood Pressure 129/85 08/25/2024 1:33 PM COLLEGE ATHLETE Pulse 86 08/25/2024 1:33 PM COLLEGE ATHLETE Temperature 36.4 ??C (97.6 ??F) 08/25/2024 1:33 PM CS T Respiratory Rate 20 08/25/2024 1:33 PM COLLEGE ATHLETE Oxygen Saturation 97% 08/25/2024 1:33 PM COLLEGE ATHLETE Inhaled Oxygen Concentration - - Weight 67.6 kg (149 lb) 08/25/2024 1:33 PM COLLEGE ATHLETE Height 157.5 cm (5' 2 ) 02/20/2023 10:31 AM CDT Body Mass Index 27.25 02/20/2023 10:31 AM CDT Plan of Treatment Upcoming Encounters Date Type Department Care Team (Late st Contact Info) Description 11/30/2024 11:00 AM CDT Office Visit [facility] Oncology and Hematology - [address] [place] [address] Bernie Gil MD [address] [place] [address] Health Maintenance Due Date Last Done Comments DIABETES ANNUAL FOOT EXAM 1971 DIABETES ANNUAL RETINAL EXAM 1971 DIABETES MICROALBUMIN ANNUAL SCREEN 1971 LDL CHOLESTEROL ANNUAL 1971 DTAP/TDAP/TD VACCINES (1 - Tdap) 1972 PNEUMOCOCCAL VACCINE 65+ YEA RS (1 of 2 - PCV) 1972 BREAST CANCER SCREENING 1993 COLORECTAL SCREENING 1998 Colorectal Cancer Screening 1998 FIT-DNA Q 3 years 1998 FIT/FOBT Q 1 year 1998 Flex Sig/CT Colonography Q 5 years 1998 ZOSTER VACCINE (1 of 2) 2003 RSV VACCINE (60+ or ) (1 - Risk 60-74 years 1-dose series) 2013 OSTEOPOROSIS SCREENING 2018 [place]) Prev entative Visit/Annual Wellness Visit 08/12/2024 DIABETES HBA1C Q 6 MONTHS 10/14/2024 04/16/2024 INFLUENZA VACCINE Completed 05/19/2024, , 06/25/2017 Medical Devices Implanted Type Area Ornamental Bronze Worker Device Identifier Shelf Expiration Date Model / Serial / Lot Clip Ligating Horizon Lg Ti [id number] - Csc - [id number] Implanted:Qty : 1 on 12/29/2021 by Phil Mejia MD at [facility] N/A: Abdomen TELEFLEX- WECK CLOSURE SYS [id number] / / Clip Ligating Horizon Ti Sm 24 [id number] Rp - [id number] Implanted:Qty : 2 on 12/29/2021 by Phil Mejia MD at [facility] N/A: Abdomen TELEFLEX- WECK CLOSURE SYS [id number] RP / / Tube Feed Kangaroo 5fr 16in [id number] - [id number] Implanted:Qty : 1 on 12/29/2021 by Phil Mejia MD at [facility] Feeding Device N/A: Abdomen CARDINAL - PATIENT RECOVERY [id number] / / Description:INSERTED INTO PA NCREATIC DUCT Tube Feed [place] [id number] [id number] - [id number] Implanted:Qty : 1 on 12/29/2021 by Phil Mejia MD at [facility] Feeding Device N/A: Abdomen CARDINAL - PATIENT RECOVERY 04/11/2026 [id number] / / [id number] Description:WRAPPER CHECKED BY R.NAlina 01/01/22 Hemostat Surg Snow 2x4in 2081 - [id number] Implanted:Qty : 1 on 12/29/2021 by Phil Mejia MD at [facility] Hemostatic N/A: Abdomen J&J- [employer]ICON INC 09/11/2023 2082 / / [id number] Sealant Fibrin Vistaseal 10ml Vst10 - [id number] Implanted:Qty : 1 on 12/29/2021 by Phil Mejia MD at [facility] Sealant N/A: Abdomen J&J- ETHICON INC 02/07/2023 VST10 / [id number] / [id number] Description:BOX CHECKED BY Melisa Nowak 01/01/2022 Stent Pncrtc Geenen 7fr 9cm [id number] - [id number] Implanted:Qty : 1 on 05/25/2021 by Omar Gonzalez MD at [facility] Stent COOK- ENDOSCOPY - HALINA-COOK [id number] 09/12/2023 [id number] / / [id number] Stent Bili Wallflex Rx 10x40 [id number] - [id number] Implanted:Qty : 1 on 05/25/2021 by Omar Gonzalez MD at [facility] Stent BOSTON SCI- ENDOSCOPY [id number] 02/13/2023 [id number] / / [id number] Procedures Procedure Name Priority Date/Time Associated Diagnosis Comments CREATININE Routine 08/10/2024 3:35 PM COLLEGE ATHLETE COMPREHENSIVE METABOLIC PANEL Routine 08/10/2024 2:[address] CHEST ABDOMEN PELVIS W CONT Routine 08/10/2024 10:55 AM COLLEGE ATHLETE from Last 3 Months Results * CREATININE (08/10/2024 3:35 PM COLLEGE ATHLETE) Blood us Royal Newell MD CHEMISTRY ORDERABLES Final Resu lt * COMPREHENSIVE METABOLIC PANEL (08/10/2024 2:00 PM COLLEGE ATHLETE) Blood Royal Newell MD CHEMISTRY ORDERABLES Final Resu lt * CT CHEST ABDOMEN PELVIS W CONT (08/10/2024 10:55 AM COLLEGE ATHLETE) Anatomical Region Laterality Modality Chest Other Royal Newell MD CT ORDERABLES Final Result from Last 3 Months Insurance [facility] [id number] MEDICAID [place] RX OPTUM RX Member Subscriber Plan / Payer (Ef fective 2017-Present) Name:Krissy Oneal Relation to Subscriber:Self Name:Krissy Oneal Payer ID:Not on file Group ID:[id number] Type:RX Medicare Part D Address: [place] RX [employer] PLANS (INTERNAL) [facility] [id number] MEDICAID [place] Advance Directives For more information, please contact: [phone] * Full Code (Latest Code Status on File) Date Activated Date Inactivated Comments 12/29/2021 8:18 PM 01/08/2022 8:26 PM * Full Code Date Activated Date Inactivated Comments 12/29/2021 5:49 AM 12/29/2021 8:17 PM * Full Code Date Activated Date Inactivated Comments 05/25/2021 12:46 PM 06/01/2021 9:14 PM * Full Code Date Activated Date Inactivated Comments 05/24/2021 5:14 AM 05/25/2021 12:46 PM Care Teams Pelletizer Operator Relationship Specialty Start Date End Date Kathya Orona DO [address] [address] PCP - General Family Practice 05/07/24
--- OUTSIDE RECORDS SUMMARY | 2024-09-03 19:13 | XMS_ITS | Clinical Summary ---
Author Organization [facility] Address [address] [place] [address] Care Team Providers Care Mineral Resources Inspector Name Role Phone Sabino Luke MD Unavailable [phone] Kathya Orona DO Primary Care Provider [phone] Allergies Active Allergy Reactions Criticality Noted Date [...] 1 tablet (10 mg total) by mouth ranch hand before breakfast 30 tablet 4 Active fluticasone [...] 1 tablet (10 mg total) by mouth ranch hand before breakfast 30 tablet 4 Active cyclobenzaprine (FLEXERIL) 10 mg tabletIndicatio ns:Muscle Spasm Take 1 tablet (10 mg total) by mouth 2 (two) times a day as needed for muscle spasms 30 tablet 4 Active hydroCHLOROthia zide (HYDRODIURIL) 25 mg tabletIndicatio ns:hypertension Take 1 tablet (25 mg total) by mouth ranch hand before breakfast 30 tablet 4 Active sertraline [...] Department Care Team Description 07/03/2024 10:15 AM GLASSWORKER Office Visit [place] [facility]) - [facility] Minimally Invasive Surgery [address] [facility] [address]th [address], [place] [address] Sabino Luke MD History of incisional hernia repair (Primary Dx) 07/03/2024 Telephone [facility]) [facility] Minimally Invasive Surgery [address] [facility] 12th Floor, [place] [address] Sabino Luke MD Medical Question/Miscellaneou s 06/26/2024 Telephone [facility]) - [facility] Minimally Invasive Surgery [address] [facility] [address]th Floor, [place] [address] Sabino Luke MD Medical Question/Miscellaneou s from Last 3 Months Immunizations Name Administration [...] on file Legal Sex Female 8:15 AM GLASSWORKER Gender Identity Not on file Sexual Orientation Not on file Occupation Industry Job Start Date Job End Date Disability Not on file Not on file Not on file Obstetrics History Last Filed Vital Signs Vital Sign Reading Time Taken Comments Blood Pressure 130/86 07/03/2024 10:53 AM GLASSWORKER Pulse 85 07/03/2024 10:53 AM GLASSWORKER Temperature 36.6 ??C (97.9 ??F) 07/03/2024 10:[address] Respiratory Rate 16 07/03/2024 10:53 AM GLASSWORKER Oxygen Saturation 97% 07/03/2024 10:53 AM GLASSWORKER Inhaled Oxygen Concentration - - Weight 68.5 kg (151 lb) 07/03/2024 10:53 AM GLASSWORKER Height 157.5 cm (5' 2 ) 07/03/2024 10:53 AM GLASSWORKER Body Mass Index 27.62 07/03/2024 10:53 AM GLASSWORKER Plan of Treatment Health Maintenance Due Date [...] home safety. Medical Devices Implanted Type Area Grades 9 12 Tutor Device Identifier Shelf Expiration Date Model / Serial / Lot Davol Inc/C R Bard [id number] Bard [id number] Monofilament Soft Lightweight Low Profile Square - [id number] - [id number] Implanted:Qty: 1 on 05/11/2024 by Sabino Luke MD at [facility] Mesh N/A: Abdomen Davol Inc/C R Bard [id number] 11/06/2028 [id number] / [id number] / [id number] Insurance MEDICARE SOLUTIONS MEDICARE [employer] [facility] MEDICARE SOLUTIONS [place] Advance Directives For more information, please contact: [phone] * Full Code (Latest Code Status on File) Date Activated Date Inactivated Comments 05/11/2024 8:24 PM 05/19/2024 3:53 PM Care Teams Mineral Resources Inspector Relationship Specialty Start Date End Date Kathya Orona DO [address] [place] [address] [address] PCP - General Family Medicine 05/12/24 Sabino Luke MD [address] [place] [address] Referring Physician General Surgery 12/06/23
--- OUTSIDE RECORDS SUMMARY | 2024-09-03 19:14 | XMS_ITS | Referral Summary ---
Author Organization [facility] Address [address] [place] [address] Care Team Providers Care Salt Refiner Name Role Phone Sabino Luke MD Unavailable [phone] Kathya Orona DO Primary Care Provider [phone] Encounters Date Type Department Care Team Description 07/03/2024 Telephone [facility] - [facility] Minimally Invasive Surgery [address] [facility] [address], [place] [address] Sabino Luke MD Medical Question/Miscellaneou s 07/03/2024 10:15 AM SAND CASTER APPRENTICE Office Visit [facility]) [facility] Minimally Invasive Surgery [address] [facility] [address], [place] [address] Sabino Luke MD History of incisional hernia repair (Primary Dx) 06/26/2024 Telephone [facility]) [facility] Minimally Invasive Surgery [address] [facility] [address], [place] [address] Sabino Luke MD Medical Question/Miscellaneou s from Last 3 Months Allergies Active Allergy [...] 1 tablet (10 mg total) by mouth viticulture teacher before breakfast 30 tablet 4 Active fluticasone [...] 1 tablet (10 mg total) by mouth viticulture teacher before breakfast 30 tablet 4 Active cyclobenzaprine (FLEXERIL) 10 mg tabletIndicatio ns:Muscle Spasm Take 1 tablet (10 mg total) by mouth 2 (two) times a day as needed for muscle spasms 30 tablet 4 Active hydroCHLOROthia zide (HYDRODIURIL) 25 mg tabletIndicatio ns:hypertension Take 1 tablet (25 mg total) by mouth viticulture teacher before breakfast 30 tablet 4 Active sertraline [...] Smoking Tobacco: Former Cigarettes 0.2 23 1 8 - 2000 Smokeless Tobacco: Never Tobacco Cessation:Counseling [...] on file Legal Sex Female 8:15 AM SAND CASTER APPRENTICE Gender Identity Not on file Sexual Orientation Not on file Occupation Industry Job Start Date Job End Date Disability Not on file Not on file Not on file Last Filed Vital Signs Vital Sign Reading Time Taken Comments Blood Pressure 130/86 07/03/2024 10:53 AM SAND CASTER APPRENTICE Pulse 85 07/03/2024 10:53 AM SAND CASTER APPRENTICE Temperature 36.6 ??C (97.9 ??F) 07/03/2024 10:[address] Respiratory Rate 16 07/03/2024 10:53 AM SAND CASTER APPRENTICE Oxygen Saturation 97% 07/03/2024 10:53 AM SAND CASTER APPRENTICE Inhaled Oxygen Concentration - - Weight 68.5 kg (151 lb) 07/03/2024 10:53 AM SAND CASTER APPRENTICE Height 157.5 cm (5' 2 ) 07/03/2024 10:53 AM SAND CASTER APPRENTICE Body Mass Index 27.62 07/03/2024 10:53 AM SAND CASTER APPRENTICE Plan of Treatment Not on file Goals [...] stairs Contact your local community or senior felicity for information on exercise, fall prevention programs, or options for improving home safety. Medical Devices Implanted Type Area Operations Plant Attendant Device Identifier Shelf Expiration Date Model / Serial / Lot Davol Inc/C R Bard [id number] Bard [id number] Monofilament Soft Lightweight Low Profile Square - [id number] - [id number] Implanted:Qty: 1 on 05/11/2024 by Sabino Luke MD at [facility] Mesh N/A: Abdomen Davol Inc/C R Bard [id number] 11/06/2028 [id number] / [id number] / [id number] [place] [address] MEDICARE SOLUTIONS [place] MEDICARE SOLUTIONS [place]PA Advance Directives For more information, please contact: [phone] * Full Code (Latest Code Status on File) Date Activated Date Inactivated Comments 05/11/2024 8:24 PM 05/19/2024 3:53 PM Care Teams Salt Refiner Relationship Specialty Start Date End Date Kathya Orona DO [address] [place] [address] [address] PCP - General Family Medicine 05/12/24 Sabino Luke MD [address] [place] [address] Referring Physician General Surgery 12/06/23
--- OUTSIDE RECORDS SUMMARY | 2024-09-03 19:14 | XMS_ITS ---
Author Organization [facility] Address [address] [place] [address] Care Team Providers Care Assistant Dean Of Students Name Role Phone Sabino Luke MD Unavailable [phone] Kathya Orona DO Primary Care Provider [phone] Active Problems Problem Noted Date Diagnosed Date [...] treatments are documented for this patient in [facility]. Treatments may have been administered in another system. Lifetime Dose Tracking * Chemical Lifetime Dose Automatic Entry Manual Entr y Fluoro Time 0.179 minutes 0.179 minutes 0 minutes Air kerma at the reference point (Ka,r) 3.906 mGy 3 .906 mGy 0 mGy DLP 237 mGycm 237 mGycm 0 mGycm
== END 2024-09-01 14:37 | disposition home or self-care (01) ==
LOC: ANHIMG 14:46
PROVIDERS: PCP Nurse Practitioner; Visit Provider Nurse Practitioner
DX: R05.9 Cough, unspecified (principal)
CPT/HCPCS: 71046

== ENCOUNTER 2024-09-17 10:17 | Outpatient (CLI) | payer MEDICARE, MEDICAID, SELFPAY ==
--- NOTE | ~2024-09-17 | CT_ITS ---
EXAMINATION:CT diagnostic chest wo con DATE: 09/17/2024 10:30 INDICATION: Hemoptysis. TECHNIQUE: Computed tomography (CT) of the chest was performed without intravenous contrast. Automate d exposure control and iterative reconstruction technique were employed. The dose-length product (DLP ) was 134.92 mGy-cm. COMPARISON: Chest CT 08/10/2024, 07/17/22 FINDINGS: There is mild emphysema. There is chronic elevation of right hemidiaphragm. There is mild a telectasis bilaterally. There are a few nodules in the lungs measuring up to 6 mm in left lower lobe, stable from 07/17/22, likely benign. No pleural effusion. There is a right internal jugular port with tip at superior cavoatrial junction. There are cysts in the liver measuring up to 7.7 cm. There are changes of cholecystectomy. There is a 3.7 cm mass in left hepatic lobe. There is mild thoracic spond ylosis. There is mild chronic anterior wedging of multiple vertebral bodies. There are changes of ant erior fusion procedure in cervical spine. IMPRESSION: 1. Mild emphysema. 2. Chronic elevation of right hemidiaphragm. 2. 3.7 cm mass in left hepatic lobe, stable from 08/10/2024, consistent with metastatic disease. Reviewed, dictated and finalized at location [facility] IMPRESSION: 1. Mild emphysema. 2. Chronic elevation of right hemidiaphragm. 2. 3.7 cm mass in left hepatic lobe, stable from 08/10/2024, consistent with me tastatic disease.
--- OUTSIDE RECORDS SUMMARY | 2024-09-17 10:41 | XMS_ITS ---
Author Organization [facility] Address [address] [place] [address] Care Team Providers Care Set Up Mechanic Stamping Machines Name Role Phone Sabino Luke MD Unavailable [phone] Kathya Orona DO Primary Care Provider [phone] Active Problems Problem Noted Date Diagnosed Date [...] treatments are documented for this patient in [facility]. Treatments may have been administered in another system. Lifetime Dose Tracking * Chemical Lifetime Dose Automatic Entry Manual Entr y Fluoro Time 0.179 minutes 0.179 minutes 0 minutes Air kerma at the reference point (Ka,r) 3.906 mGy 3 .906 mGy 0 mGy DLP 237 mGycm 237 mGycm 0 mGycm
--- OUTSIDE RECORDS SUMMARY | 2024-09-17 10:41 | XMS_ITS | Clinical Summary ---
Author Organization [facility] Address [address] [place] [address] Care Team Providers Care Lumber Hacker Name Role Phone Sabino Luke MD Unavailable [phone] Kathya Orona DO Primary Care Provider [phone] Allergies Active Allergy Reactions Criticality Noted Date [...] 1 tablet (10 mg total) by mouth seal mixing operator before breakfast 30 tablet 4 Active fluticasone [...] 1 tablet (10 mg total) by mouth seal mixing operator before breakfast 30 tablet 4 Active cyclobenzaprine (FLEXERIL) 10 mg tabletIndicatio ns:Muscle Spasm Take 1 tablet (10 mg total) by mouth 2 (two) times a day as needed for muscle spasms 30 tablet 4 Active hydroCHLOROthia zide (HYDRODIURIL) 25 mg tabletIndicatio ns:hypertension Take 1 tablet (25 mg total) by mouth seal mixing operator before breakfast 30 tablet 4 Active sertraline [...] Department Care Team Description 07/03/2024 10:15 AM DRIED YEAST SUPERVISOR Office Visit [place] for [facility]) - [facility] Minimally Invasive Surgery [address] [facility] [address], [place] [address] Sabino Luke MD History of incisional hernia repair (Primary Dx) 07/03/2024 Telephone [facility]) [facility] Minimally Invasive Surgery [address] [facility] [address], [place] [address] Sabino Luke MD Medical Question/Miscellaneou s 06/26/2024 Telephone [facility]) - [facility] Minimally Invasive Surgery [address] [facility] [address], [place] [address] Sabino Luke MD Medical Question/Miscellaneou s from [...] on file Legal Sex Female 8:15 AM DRIED YEAST SUPERVISOR Gender Identity Not on file Sexual Orientation Not on file Occupation Industry Job Start Date Job End Date Disability Not on file Not on file Not on file Obstetrics History Last Filed Vital Signs Vital Sign Reading Time Taken Comments Blood Pressure 130/86 07/03/2024 10:53 AM DRIED YEAST SUPERVISOR Pulse 85 07/03/2024 10:53 AM DRIED YEAST SUPERVISOR Temperature 36.6 C (97.9 F) 07/03/2024 10:53 AM DRIED YEAST SUPERVISOR Respiratory Rate 16 07/03/2024 10:53 AM DRIED YEAST SUPERVISOR Oxygen Saturation 97% 07/03/2024 10:53 AM DRIED YEAST SUPERVISOR Inhaled Oxygen Concentration - - Weight 68.5 kg (151 lb) 07/03/2024 10:53 AM DRIED YEAST SUPERVISOR Height 157.5 cm (5' 2 ) 07/03/2024 10:53 AM DRIED YEAST SUPERVISOR Body Mass Index 27.62 07/03/2024 10:53 AM DRIED YEAST SUPERVISOR Plan of Treatment Health Maintenance Due Date [...] eyeglasses 4. Make your home safer by: Removing clutter & tripping hazards Putting railings on all stairs & adding grab bars in the bathroom Having good lighting, especially on stairs Contact your local community or senior center for information on exercise, fall prevention programs, or options for improving home safety. Medical Devices Implanted Type Area Assembly Machine Operator Device Identifier Shelf Expiration Date Model / Serial / Lot Davol Inc/C R Bard [id number] Bard [id number] Monofilament Soft Lightweight Low Profile Square - [id number] - [id number] Implanted:Qty: 1 on 05/11/2024 by Sabino Luke MD at [facility] Mesh N/A: Abdomen Davol Inc/C R Bard [id number] 11/06/2028 [id number] / [id number] / [id number] Insurance MEDICARE Flypay MEDICARE Flypay [facility] MEDICARE SOLUTIONS [place] Advance Directives For more information, please contact: [phone] * Full Code (Latest Code Status on File) Date Activated Date Inactivated Comments 05/11/2024 8:24 PM 05/19/2024 3:53 PM Care Teams Lumber Hacker Relationship Specialty Start Date End Date Kathya Orona DO [facility] [address] [address] PCP - General Family Medicine 05/12/24 Sabino Luke MD [address] [place] [address] Referring Physician General Surgery 12/06/23
--- OUTSIDE RECORDS SUMMARY | 2024-09-17 10:41 | XMS_ITS | Clinical Summary ---
Author Organization [facility] Address [address] [place] [address] Phone Care Team Providers Care Automotive Tire Technician Name Role Phone GamalloydKathya dick Primary Care Provider [phone]- [phone] Allergies Active Allergy Reactions Criticality Noted Date [...] Anxiety. Active fluticasone propionate (FLONASE) 50 mcg/spray Boissevain, Suspension nasal inhaler Administer 2 Sprays in each nostril 1 time daily as needed. Active hydroCHLOROthia zide 25 mg tablet Take 37.5 mg by mouth daily. Takes 1 1/2 tablets Active albuterol sulfate 90 mcg/Actuation inhaler Take 2 Puffs by inhalation every 4 hours as needed for Shortness of Breath. Active simvastatin (ZOCOR) 20 mg tablet Take 20 mg by mouth daily at bedtime. Active sertraline (ZOLOFT) 50 mg tablet Take 50 mg by mouth daily at bedtime. Active budesonide-form oteroL (SYMBICORT) 160-4.5 mcg/actuation HFA Aerosol Inhaler Take 2 Puffs by inhalation 2 times daily as needed. Active amLODIPine (NORVASC) 5 mg tablet Take 10 mg by mouth daily. 2 Active cyanocobalamin, vitamin B-12, (Vitamin B-12) 5,000 mcg/mL Drops Place 5,000 mcg under tongue daily. Active iron,carb/vit C/vit B12/folic (IRON 100 PLUS ORAL) Take 100 mg by mouth daily. liquid Active naloxone (NARCAN) 4 mg/spray Boissevain, Non-Aerosol EMERGENCY USE ONLY: Administer 1 spray [...] TIMES DAILY FOR 30 DAYS 4 Active diphenhydrAMINE (BENADRYL) 50 mg capsule Take 1 tablet [address] scan. 1 Capsule 4 Active predniSONE (DELTASONE) 50 mg tablet Take 1 tablet by mouth [address] scan, [address] scan, and [address] scan. 3 Tablet 4 Active Active Problems Problem Noted Date [...] Department Care Team Description 08/25/2024 2:00 PM COMMERCIAL HOUSEKEEPER Office Visit [facility] Oncology and Hematology - [address] [place] [id number] Royal Newell MD Ampullary carcinoma (CMS/HCC) (Primary Dx) 08/19/2024 Orders Only [facility] Oncology and Hematology - [place] [place] [id number] Royal Newell MD 08/14/2024 Orders Only [facility] Oncology and Hematology - [address] [place] [id number] Royal Newell MD 08/13/2024 Orders Only [facility] Oncology and Hematology - [address] [place] [address] Royal Newell MD 08/10/2024 Orders Only [facility] Oncology and Hematology - [address] [place] [address] Royal Newell MD Ampullary carcinoma (CMS/HCC) (Primary Dx) 08/06/2024 Refill [facility] Oncology and Hematology - [address] [place] [address] Ti Castelan MD from Last 3 Months [...] Comments Blood Pressure 129/85 08/25/2024 1:33 PM COMMERCIAL HOUSEKEEPER Pulse 86 08/25/2024 1:33 PM COMMERCIAL HOUSEKEEPER Temperature 36.4 C (97.6 F) 08/25/2024 1:33 PM COMMERCIAL HOUSEKEEPER Respiratory Rate 20 08/25/2024 1:33 PM COMMERCIAL HOUSEKEEPER Oxygen Saturation 97% 08/25/2024 1:33 PM COMMERCIAL HOUSEKEEPER Inhaled Oxygen Concentration - - Weight 67.6 kg (149 lb) 08/25/2024 1:33 PM COMMERCIAL HOUSEKEEPER Height 157.5 cm (5' 2 ) 02/20/2023 10:31 AM CDT Body Mass Index 27.25 02/20/2023 10:31 AM CDT Plan of Treatment Upcoming Encounters Date Type Department Care Team (Late st Contact Info) Description 11/30/2024 11:00 AM CDT Office Visit [facility] Oncology and Hematology - [address] [place] [address] Bernie Gil MD [address] [place] [address] Health Maintenance Due Date Last [...] years 1-dose series) 2013 OSTEOPOROSIS SCREENING 2018 DIABETES HBA1C Q 6 MONTHS 10/14/2024 04/16/2024 INFLUENZA VACCINE Completed 05/19/2024, , 06/25/2017 Medical Devices Implanted Type Area Pumper Helper Device Identifier Shelf Expiration Date Model / Serial / Lot Clip Ligating [place] [id number] - Csc - [id number] Implanted:Qty : 1 on 12/29/2021 by Phil Mejia MD at [facility] N/A: Abdomen TELEFLEX- WECK CLOSURE SYS [id number] / / Clip Ligating Horizon Ti Sm [id number] Rp - [id number] Implanted:Qty : 2 on 12/29/2021 by Phil Mejia MD at [facility] N/A: Abdomen TELEFLEX- WECK CLOSURE SYS [id number] RP / / Tube Feed Kangaroo 5fr 16in [id number] - [id number] Implanted:Qty : 1 on 12/29/2021 by Phil Mejia MD at [facility] Feeding Device N/A: Abdomen CARDINAL - PATIENT RECOVERY [id number] / / Description:INSERTED INTO PA NCREATIC DUCT Tube Feed Arcadia [id number] - [id number] Implanted:Qty : 1 on 12/29/2021 by Phil Mejia MD at [facility] Feeding Device N/A: Abdomen CARDINAL - PATIENT RECOVERY 04/11/2026 [id number] / / [id number] Description:WRAPPER CHECKED BY Tracy 01/01/22 Hemostat Surg Snow 2x4in 2081 - [id number] Implanted:Qty : 1 on 12/29/2021 by Phil Mejia MD at [facility] Hemostatic N/A: Abdomen J&J- [employer] 09/11/20232081 / / [id number] Sealant Fibrin Vistaseal 10ml Vst10 - [id number] Implanted:Qty : 1 on 12/29/2021 by Phil Mejia MD at [facility] Sealant N/A: Abdomen J&J- [employer] 02/07/2023 VST10 / [id number] / [id number] Description:BOX CHECKED BY R .NAlina 01/01/2022 Stent Pncrtc Geenen 7fr 9cm [id number] - [id number] Implanted:Qty : 1 on 05/25/2021 by Omar Gonzalez MD at [facility] Stent COOK- ENDOSCOPY - HALINA-COOK [id number] 09/12/2023 [id number] / / [id number] Stent Bili Wallflex Rx 10x40 [id number] - [id number] Implanted:Qty : 1 on 05/25/2021 by Omar Gonzalez MD at [facility] Stent BOSTON SCI- ENDOSCOPY [id number] 02/13/2023 [id number] / / [id number] Procedures Procedure Name Priority Date/Time Associated Diagnosis Comments CREATININE Routine 08/10/2024 3:35 PM COMMERCIAL HOUSEKEEPER COMPREHENSIVE METABOLIC PANEL Routine 08/10/2024 2:[address] CHEST ABDOMEN PELVIS W CONT Routine 08/10/2024 10:55 AM COMMERCIAL HOUSEKEEPER from Last 3 Months Results * CREATININE (08/10/2024 3:35 PM COMMERCIAL HOUSEKEEPER) Blood us Royal Newell MD CHEMISTRY ORDERABLES Final Resu lt * COMPREHENSIVE METABOLIC PANEL (08/10/2024 2:00 PM COMMERCIAL HOUSEKEEPER) Blood us Royal Newell MD CHEMISTRY ORDERABLES Final Resu lt * CT CHEST ABDOMEN PELVIS W CONT (08/10/2024 10:55 AM COMMERCIAL HOUSEKEEPER) Anatomical Region Laterality Modality Chest Other us Royal Newell MD CT ORDERABLES Final Result from Last 3 Months Insurance [place]ID [place] RX OPTUM RX Member Subscriber Plan / Payer (Ef fective 2017-Present) Name:Krissy Oneal Relation to Subscriber:Self Name:Krissy Oneal Payer ID:Not on file Group ID:[id number] Type:RX Medicare Part D Address: [place] [place] [employer] PL[employer] (INTERNAL) [facility] [address] MED[place]ID [place] Advance Directives For more information, please contact: [phone] * Full Code (Latest Code Status on File) Date Activated Date Inactivated Comments 12/29/2021 8:18 PM 01/08/2022 8:26 PM * Full Code Date Activated Date Inactivated Comments 12/29/2021 5:49 AM 12/29/2021 8:17 PM * Full Code Date Activated Date Inactivated Comments 05/25/2021 12:46 PM 06/01/2021 9:14 PM * Full Code Date Activated Date Inactivated Comments 05/24/2021 5:14 AM 05/25/2021 12:46 PM Care Teams Automotive Tire Technician Relationship Specialty Start Date End Date Kathya Orona DO [address] [facility] [address] [place] [address] PCP - General Family Practice 05/07/24
--- OUTSIDE RECORDS SUMMARY | 2024-09-17 10:41 | XMS_ITS ---
Author Organization [facility] Address [address] [place] [address] Phone Care Team Providers Care Bus And Trolley Dispatcher Name Role Phone Kathya Orona Primary Care Provider [phone]- [phone] Active Problems Problem Noted Date Diagnosed Date [...]
--- OUTSIDE RECORDS SUMMARY | 2024-09-17 10:41 | XMS_ITS | Referral Summary ---
Author Organization [facility] Address [address] [place] [address] Care Team Providers Care Pulmonary Function Technician Name Role Phone Sabino Luke MD Unavailable [phone] Kathya Orona DO Primary Care Provider [phone]- [phone] Encounters Date Type Department Care Team Description 07/03/2024 Telephone [facility] Minimally Invasive Surgery [address] [facility] [address]th [address], [place] [address] Sabino Luke MD Medical Question/Miscellaneou s 07/03/2024 10:15 AM DIRECTOR OF STRATEGY & MOBILE Office Visit [facility] Minimally Invasive Surgery [address] [facility] [address], [place] [address] Sabino Luke MD History of incisional hernia repair (Primary Dx) 06/26/2024 Telephone [facility] Minimally Invasive Surgery [address] [facility] [address], [place] [phone] Sabino Luke MD Medical Question/Miscellaneou s from [...] 1 tablet (10 mg total) by mouth machine learning intern before breakfast 30 tablet 4 Active fluticasone [...] 1 tablet (10 mg total) by mouth machine learning intern before breakfast 30 tablet 4 Active cyclobenzaprine (FLEXERIL) 10 mg tabletIndicatio ns:Muscle Spasm Take 1 tablet (10 mg total) by mouth 2 (two) times a day as needed for muscle spasms 30 tablet 4 Active hydroCHLOROthia zide (HYDRODIURIL) 25 mg tabletIndicatio ns:hypertension Take 1 tablet (25 mg total) by mouth machine learning intern before breakfast 30 tablet 4 Active sertraline [...] on file Legal Sex Female 8:15 AM DIRECTOR OF STRATEGY & MOBILE Gender Identity Not on file Sexual Orientation Not on file Occupation Industry Job Start Date Job End Date Disability Not on file Not on file Not on file Last Filed Vital Signs Vital Sign Reading Time Taken Comments Blood Pressure 130/86 07/03/2024 10:53 AM DIRECTOR OF STRATEGY & MOBILE Pulse 85 07/03/2024 10:53 AM DIRECTOR OF STRATEGY & MOBILE Temperature 36.6 C (97.9 F) 07/03/2024 10:53 AM DIRECTOR OF STRATEGY & MOBILE Respiratory Rate 16 07/03/2024 10:53 AM DIRECTOR OF STRATEGY & MOBILE Oxygen Saturation 97% 07/03/2024 10:53 AM DIRECTOR OF STRATEGY & MOBILE Inhaled Oxygen Concentration - - Weight 68.5 kg (151 lb) 07/03/2024 10:53 AM DIRECTOR OF STRATEGY & MOBILE Height 157.5 cm (5' 2 ) 07/03/2024 10:53 AM DIRECTOR OF STRATEGY & MOBILE Body Mass Index 27.62 07/03/2024 10:53 AM DIRECTOR OF STRATEGY & MOBILE Plan of Treatment Not on file Goals [...] home safety. Medical Devices Implanted Type Area Test Consultant Device Identifier Shelf Expiration Date Model / Serial / Lot Davol Inc/C R Bard [id number] Bard [id number] Monofilament Soft Lightweight Low Profile Square - [id number] - [id number] Implanted:Qty: 1 on 05/11/2024 by Sabino Luke MD at [facility] Mesh N/A: Abdomen Davol Inc/C R Bard [id number] 11/06/2028 [id number] / [id number] / [id number] Insurance MEDICARE SOLUTIONS [facility] MEDICARE Address: [facility] [address] [place] [address] MEDICARE SOLUTIONS IDPA MEDICARE SOLUTIONS IDPA Advance Directives For more information, please contact: [phone] * Full Code (Latest Code Status on File) Date Activated Date Inactivated Comments 05/11/2024 8:24 PM 05/19/2024 3:53 PM Care Teams Pulmonary Function Technician Relationship Specialty Start Date End Date Kathya Orona DO [address] [place] [address] [place] [address] PCP - General Family Medicine 05/12/24 Sabino Luke MD [address] [place] [address] Referring Physician General Surgery 12/06/23
== END 2024-09-17 10:18 | disposition home or self-care (01) ==
LOC: ANHIMG 10:19
PROVIDERS: PCP Nurse Practitioner; Visit Provider Nurse Practitioner
DX: R04.2 Hemoptysis (principal); J43.9 Emphysema, unspecified; R91.8 Other nonspecific abnormal finding of lung field
CPT/HCPCS: 71250

== ENCOUNTER 2024-10-21 13:00 | Outpatient (CLI) | payer MEDICARE, MEDICAID, SELFPAY ==
--- OUTSIDE RECORDS SUMMARY | 2024-10-21 14:25 | XMS_ITS ---
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
--- OUTSIDE RECORDS SUMMARY | 2024-10-21 14:25 | XMS_ITS ---
Author Organization [facility] Address [address] [place] [address] Phone Care Team Providers Care Pharmaceutical Assistant Name Role Phone Kathya Orona Primary Care Provider [phone]- [phone] Active Problems Problem Noted Date Diagnosed Date [...]
--- OUTSIDE RECORDS SUMMARY | 2024-10-21 14:25 | XMS_ITS | Continuity of Care Document ---
Author Organization [facility]. If a dditional information is needed, contact Health Information Management at [phone] Address [address] [place] [address] Phone Care Team Providers Care Proposal Analyst Name Role Phone Unavailable Unavailable Unavailable Unavailable Unavailable Unavailable Unavailable Unavailable Unavailable Problems Tongue swelling Onset:01-Mar-2023 [place] Meghan A SQL DEVELOPER DBA Allergic reaction Onset:01-Mar-2023 Lorna Meghan A SQL DEVELOPER DBA Allergies and Adverse Reactions naproxen(Allergy) Onset: 01-Mar-2023 Reaction:ITCHING Nitrofurantoin(Allergy) Onset: 01-Mar-2023 Reaction:ITCHING Amoxicillin(Allergy) Onset: 01-Mar-2023 Reaction:ITCHING PENCILLIN(Allergy) Onset: 01-Mar-2023 Reaction:UNKNOWN Social History Smoking Status Ex-smoker Recorded: 01-Mar-2023
--- OUTSIDE RECORDS SUMMARY | 2024-10-21 14:25 | XMS_ITS | Clinical Summary ---
Author Organization [facility] Address [address] [place] [address] Care Team Providers Care Dance Master Name Role Phone Sabino Luke MD Unavailable [phone] Kathya Orona DO Primary Care Provider [phone]- [phone] Allergies Active Allergy Reactions Criticality Noted Date [...] 1 tablet (10 mg total) by mouth erp developer before breakfast 30 tablet 4 Active fluticasone [...] 1 tablet (10 mg total) by mouth erp developer before breakfast 30 tablet 4 Active cyclobenzaprine (FLEXERIL) 10 mg tabletIndicatio ns:Muscle Spasm Take 1 tablet (10 mg total) by mouth 2 (two) times a day as needed for muscle spasms 30 tablet 4 Active hydroCHLOROthia zide (HYDRODIURIL) 25 mg tabletIndicatio ns:hypertension Take 1 tablet (25 mg total) by mouth erp developer before breakfast 30 tablet 4 Active sertraline [...] claudication 12/25/2022 Left lumbar radiculitis 12/25/2022 Immunizations Immunization Administration Dates Next Due Influenza, Trivalent, High [...] on file Legal Sex Female 8:15 AM INJECTION MOULDING MACHINE OPERATOR Gender Identity Not on file Sexual Orientation Not on file Occupation Industry Job Start Date Job End Date Disability Not on file Not on file Not on file Obstetrics History Last Filed Vital Signs Vital Sign Reading Time Taken Comments Blood Pressure 130/86 07/03/2024 10:53 AM INJECTION MOULDING MACHINE OPERATOR Pulse 85 07/03/2024 10:53 AM INJECTION MOULDING MACHINE OPERATOR Temperature 36.6 C (97.9 F) 07/03/2024 10:53 AM INJECTION MOULDING MACHINE OPERATOR Respiratory Rate 16 07/03/2024 10:53 AM INJECTION MOULDING MACHINE OPERATOR Oxygen Saturation 97% 07/03/2024 10:53 AM INJECTION MOULDING MACHINE OPERATOR Inhaled Oxygen Concentration - - Weight 68.5 kg (151 lb) 07/03/2024 10:53 AM INJECTION MOULDING MACHINE OPERATOR Height 157.5 cm (5' 2 ) 07/03/2024 10:53 AM INJECTION MOULDING MACHINE OPERATOR Body Mass Index 27.62 07/03/2024 10:53 AM INJECTION MOULDING MACHINE OPERATOR Plan of Treatment Health Maintenance Due Date Last Done Comments Breast Cancer Screening-Mammogram 1953 Colon Cancer Screening-Colonoscopy 1955 Depression Screening 1953 Hepatitis C Screening 1953 Osteoporosis Screening-Bone Density Scan 1953 DTaP/Tdap/Td Vaccine (1 - Tdap) 1964 Hepatitis B Screening 1971 Pneumococcal vaccine 65+ (1 of 2 - PCV) 1972 Zoster Vaccine (1 of 2) 2003 Well Visit 65+ 2018 Covid-19 Vaccine (3 - 2023-2 5 season) 2024 11/14/2020, 10/24/2020 Fall Risk Assessment 05/19/2025 05/19/2024, [...] stairs Contact your local community or senior [place] for information on exercise, fall prevention programs, or options for improving home safety. Medical Devices Implanted Type Area Direct Service Professional Device Identifier Shelf Expiration Date Model / Serial / Lot Davol Inc/C R Bard [id number] Bard [id number] Monofilament Soft Lightweight Low Profile Square - [id number] - [id number] Implanted:Qty: 1 on 05/11/2024 by Sabino Luke MD at [facility] Mesh N/A: Abdomen Davol Inc/C R Bard [id number] 11/06/2028 [id number] / [id number] / [id number] Insurance MEDICARE SOLUTIONS MEDICARE SOLUTIONS IDMO MEDICARE SOLUTIONS [place] Advance Directives For more information, please contact: [phone] * Full Code (Latest Code Status on File) Date Activated Date Inactivated Comments 05/11/2024 8:24 PM 05/19/2024 3:53 PM Care Teams Dance Master Relationship Specialty Start Date End Date Kathya Orona DO [facility] [facility] [address] [place] [address] PCP - General Family Medicine 05/12/24 Sabino Luke MD [address] [place] [address] Referring Physician General Surgery 12/06/23
--- OUTSIDE RECORDS SUMMARY | 2024-10-21 14:25 | XMS_ITS | Referral Summary ---
Author Organization [facility] Address [address] [place] [address] Care Team Providers Care Strawhat Inspector And Packer Name Role Phone Sabino Luke MD Unavailable Kathya Orona DO Primary Care Provider [phone] Allergies Active Allergy Reactions Criticality Noted Date [...] 1 tablet (10 mg total) by mouth leather grainer before breakfast 30 tablet 4 Active fluticasone [...] 1 tablet (10 mg total) by mouth leather grainer before breakfast 30 tablet 4 Active cyclobenzaprine (FLEXERIL) 10 mg tabletIndicatio ns:Muscle Spasm Take 1 tablet (10 mg total) by mouth 2 (two) times a day as needed for muscle spasms 30 tablet 4 Active hydroCHLOROthia zide (HYDRODIURIL) 25 mg tabletIndicatio ns:hypertension Take 1 tablet (25 mg total) by mouth leather grainer before breakfast 30 tablet 4 Active sertraline [...] on file Legal Sex Female 8:15 AM MEMBERSHIP SECRETARY Gender Identity Not on file Sexual Orientation Not on file Occupation Industry Job Start Date Job End Date Disability Not on file Not on file Not on file Last Filed Vital Signs Vital Sign Reading Time Taken Comments Blood Pressure 130/86 07/03/2024 10:53 AM MEMBERSHIP SECRETARY Pulse 85 07/03/2024 10:53 AM MEMBERSHIP SECRETARY Temperature 36.6 C (97.9 F) 07/03/2024 10:53 AM MEMBERSHIP SECRETARY Respiratory Rate 16 07/03/2024 10:53 AM MEMBERSHIP SECRETARY Oxygen Saturation 97% 07/03/2024 10:53 AM MEMBERSHIP SECRETARY Inhaled Oxygen Concentration - - Weight 68.5 kg (151 lb) 07/03/2024 10:53 AM MEMBERSHIP SECRETARY Height 157.5 cm (5' 2 ) 07/03/2024 10:53 AM MEMBERSHIP SECRETARY Body Mass Index 27.62 07/03/2024 10:53 AM MEMBERSHIP SECRETARY Plan of Treatment Not on file Goals [...] home safety. Medical Devices Implanted Type Area Programmer Developer Device Identifier Shelf Expiration Date Model / Serial / Lot Davol Inc/C R Bard [id number] Bard [id number] Monofilament Soft Lightweight Low Profile Square - [id number] - [id number] Implanted:Qty: 1 on 05/11/2024 by Sabino Luke MD at [facility] Mesh N/A: Abdomen Davol Inc/C R Bard [id number] 11/06/2028 [id number] / [id number] / [id number] Insurance MEDICARE SOLUTIONS MEDICARE SOLUTIONS [place] Advance Directives For more information, please contact: [phone] * Full Code (Latest Code Status on File) Date Activated Date Inactivated Comments 05/11/2024 8:24 PM 05/19/2024 3:53 PM Care Teams Strawhat Inspector And Packer Relationship Specialty Start Date End Date Kathya Orona DO [address] [facility] [address] [address] PCP - General Family Medicine 05/12/24 Sabino Luke MD [address] [place] [address] Referring Physician General Surgery 12/06/23
--- OUTSIDE RECORDS SUMMARY | 2024-10-21 14:25 | XMS_ITS | Clinical Summary ---
Author Organization [facility] Address [address] [place] [address] Phone Care Team Providers Care Trackwalker Name Role Phone GamalloydKathya dick Primary Care Provider [phone] Allergies Active Allergy Reactions Criticality Noted Date [...] Anxiety. Active fluticasone propionate (FLONASE) 50 mcg/spray [place], Suspension nasal inhaler Administer 2 Sprays in [...] daily. liquid Active naloxone (NARCAN) 4 mg/spray [place], Non-Aerosol EMERGENCY USE ONLY: Administer 1 spray [...] Encounters Date Type Department Care Team Description 09/29/2024 External Device Data STL ABSTRACTION Provider, Abstract 08/25/2024 2:00 PM 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 Office Visit [facility] - [address] [place] [id number] Royal Newell MD Ampullary carcinoma (CMS/HCC) (Primary Dx) 08/19/2024 Orders Only [facility] [address] [place] [address] Royal Newell MD 08/14/2024 Orders Only [facility] - [address] [place] [address] Royal Newell MD 08/13/2024 Orders Only [facility] - [address] [place] [address] Royal Newell MD 08/10/2024 Orders Only [facility] - [address] [place] [address] Royal Newell MD Ampullary carcinoma (CMS/HCC) (Primary Dx) 08/06/2024 Refill [facility] - [address] [place] [id number] Ti Castelan MD from Last 3 Months [...] Comments Blood Pressure 129/85 08/25/2024 1:33 PM 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 Pulse 86 08/25/2024 1:33 PM 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 Temperature 36.4 C (97.6 F) 08/25/2024 1:33 PM 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 Respiratory Rate 20 08/25/2024 1:33 PM 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 Oxygen Saturation 97% 08/25/2024 1:33 PM 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 Inhaled Oxygen Concentration - - Weight 67.6 kg (149 lb) 08/25/2024 1:33 PM 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 Height 157.5 cm (5' 2 ) 02/20/2023 10:31 AM CDT Body Mass Index 27.25 02/20/2023 10:31 AM CDT Plan of Treatment Upcoming Encounters Date Type Department Care Team (Late st Contact Info) Description 11/30/2024 11:00 AM CDT Office Visit [facility] - [address] [place] [address] Bernie Gil MD [address] [place] [address] Health Maintenance Due Date Last Done Comments DIABETES ANNUAL FOOT EXAM 1971 DIABETES ANNUAL RETINAL EXAM 1971 DIABETES MICROALBUMIN ANNUAL SCREEN 1971 LDL CHOLESTEROL ANNUAL 1971 DTAP/TDAP/TD VACCINES (1 - Tdap) 1972 PNEUMOCOCCAL VACCINE 50+ YEA RS (1 of 2 - PCV) [...] , 06/25/2017 Medical Devices Implanted Type Area Director International Device Identifier Shelf Expiration Date Model / Serial / Lot Clip Ligating Horizon Lg Ti [id number] - Csc - [id number] Implanted:Qty : 1 on 12/29/2021 by Phil eMjia MD at [facility] N/A: Abdomen TELEFLEX- WECK CLOSURE SYS [id number] / / Clip Ligating Horizon Ti Sm 24 [id number] Rp - [id number] Implanted:Qty : 2 on 12/29/2021 by Phil Mejia MD at [facility] N/A: Abdomen TELEFLEX- WECK CLOSURE SYS [id number] RP / / Tube Feed Kangaroo 5fr 16in [id number] - [id number] Implanted:Qty : 1 on 12/29/2021 by Phil Mejia MD at [facility] Feeding Device N/A: Abdomen CARDINAL - PATIENT RECOVERY [id number] / / Description:INSERTED INTO PA NCREATIC DUCT Tube Feed Bruc[place] [id number] - [id number] Implanted:Qty : 1 on 12/29/2021 by Phil Mejia MD at [facility] Feeding Device N/A: Abdomen CARDINAL - PATIENT RECOVERY 04/11/2026 [id number] / / [id number] Description:WRAPPER CHECKED BY Tracy 01/01/22 Hemostat Surg Snow 2x4in 208 - [id number] Implanted:Qty : 1 on 12/29/2021 by Phil Mejia MD at [facility] Hemostatic N/A: Abdomen J&J- [employer] 09/11/20232081 / / [id number] Sealant Fibrin Vistaseal 10ml Vst10 - [id number] Implanted:Qty : 1 on 12/29/2021 by Phil Mejia MD at [facility] Sealant N/A: Abdomen J&J- [employer] 02/07/2023 VST10 / [id number] / [id number] Description:BOX CHECKED BY R She 01/01/2022 Stent Pncrtc Geenen 7fr 9cm [id number] - [id number] Implanted:Qty : 1 on 05/25/2021 by Omar Gonzalez MD at [facility] Stent COOK- ENDOSCOPY - HALINA-COOK [id number] 09/12/2023 [id number] / / [id number] Stent Bili Wallflex Rx 10x40 [id number] - [id number] Implanted:Qty : 1 on 05/25/2021 by Omar Gonzalez MD at [facility] Stent [employer]- ENDOSCOPY [id number] 02/13/2023 [id number] / / [id number] Procedures Procedure Name Priority Date/Time Associated Diagnosis Comments CREATININE Routine 08/10/2024 3:35 PM 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 COMPREHENSIVE METABOLIC PANEL Routine 08/10/2024 2:00 PM H[employer] S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 CT CHEST ABDOMEN PELVIS W CONT Routine 08/10/2024 10:55 AM 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 from Last 3 Months Results * CREATININE (08/10/2024 3:35 PM H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) Blood Royal Newell MD CHEMISTRY ORDERABLES Final Resu lt * COMPREHENSIVE METABOLIC PANEL (08/10/2024 2:00 PM H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) Blood us Royal Newell MD CHEMISTRY ORDERABLES Final Resu lt * CT CHEST ABDOMEN PELVIS W CONT (08/10/2024 10:55 AM H[employer] 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) Anatomical Region Laterality Modality Chest Other Royal Newell MD CT ORDERABLES Final Result from Last 3 Months Insurance [facility] [id number] MEDICAID [place] RX OPTUM RX Member Subscriber Plan / Payer (Ef fective 2017-Present) Name:Krissy Oneal Relation to Subscriber:Self Name:Krissy Oneal Payer ID:Not on file Group ID:[id number] Type:RX Medicare Part D Address: [address] RX [employer] PL[employer] (INTERNAL) [facility] Plans [facility] [id number] MED[place]ID [place] Advance Directives For more information, please contact: [phone] * Full Code (Latest Code Status on File) Date Activated Date Inactivated Comments 12/29/2021 8:18 PM 01/08/2022 8:26 PM * Full Code Date Activated Date Inactivated Comments 12/29/2021 5:49 AM 12/29/2021 8:17 PM * Full Code Date Activated Date Inactivated Comments 05/25/2021 12:46 PM 06/01/2021 9:14 PM * Full Code Date Activated Date Inactivated Comments 05/24/2021 5:14 AM 05/25/2021 12:46 PM Care Teams Trackwalker Relationship Specialty Start Date End Date Kathya Orona DO [address] [facility] [address] [place] [id number] PCP - General Family Practice 05/07/24
--- OUTSIDE RECORDS SUMMARY | 2024-10-21 14:25 | XMS_ITS | Continuity of Care Document ---
Author Organization [facility] Address [address] [place] [address] Phone Care Team Providers Care Engrosser Name Role Phone Markus De La Fuente MD Unavailable Unavailable Advance Directives Directive Yes / No Effective Date File Name No Information Encounters Encounter Description Practice Location Reason(s) For Visit Diagnoses Date Provider Providers Copied on Encounter [facility], [address], [place], [place], [address], [place] tel:[phone] [facility] CERVICAL DISC DISPLACMNTOTH ADV EFF MED/BIO SUB Leisa Aparicio. [address] , [place], [place], [address], [place]. tel:[phone] Family History Family Member Type Diagnosis Age At Onset No Information Payers Payer name Insurance type Covered libertarian ID Authoriza tion(s) No Information Social History [...]
--- NOTE | 2024-10-22 11:40 | P.PCNPFT_ITS ---
PFT Procedure Performed PFT Procedure Performed Plethysmography (Lung Vol) Diffusing Cap (DLCO) Flow Vol Loop Spirometry w/o Bronchodil PFT Interpretation Lung volumes were measured using the body plethysmography method and are unremarkable. Spirometry revealed diminished forced vital capacity and expiratory flow rates with a normal FEV1/FVC ratio of 69%. No post- bronchodilator study was performed. The lung diffusion capacity is severely reduced at 41% of the predicted value. This reduction, combined with a low alveolar volume and a normal DLCO/VA ratio, suggests a loss of alveolar capillary structure and lung volume, as seen in conditions like interstitial lung disease or emphysema. However, the restrictive spirometry alongside normal lung volumes presents a nonspecific pattern. Impression: Nonspecific pattern with severely reduced lung diffusion capacity.
== END 2024-10-21 13:01 | disposition home or self-care (01) ==
LOC: ANHPFT 13:03
PROVIDERS: PCP Nurse Practitioner; Visit Provider Nurse Practitioner
DX: R06.02 Shortness of breath (principal)
CPT/HCPCS: 94375; 94726; 94729

== ENCOUNTER 2024-11-12 13:41 | Outpatient (CLI) | payer MEDICARE, MEDICAID, SELFPAY ==
--- NOTE | ~2024-11-12 | XR_ITS ---
EXAMINATION: SNIFF TEST W/O CXR +FLUORO<1HR DATE: 07/11/11 11:13:00 INDICATION: Disorder of diaphragm TECHNIQUE: PA and lateral views of the chest were obtained. Fluoroscopy was utilized for evaluation o f diaphragmatic excursion with rapid inspiration. Fluoroscopy exposure time was 0.1 minutes. A total of 80 fluoroscopic images were recorded. Total DAP was 0.587 Gycm^2 COMPARISON: None. FINDINGS: Again seen is mild atelectasis along the chronically elevated right hemidiaphragm. No new airspace op acities, pulmonary edema, pleural effusion or pneumothorax. Heart size is normal. Right internal jugu lar central venous port catheter with distal tip at the caudal superior vena cava. Plate-screw fixati on for lower cervical anterior spinal fusion. Cholecystectomy clips in right upper quadrant. Addition al surgical clip in the anterior left epigastric region. There is relatively symmetric caudal excursion of both the left and right leaves of the diaphragm wit h rapid inspiration. IMPRESSION: 1. Chronic elevation of the right hemidiaphragm but with normal sniff test. No evidence of phrenic n erve palsy. Reviewed, dictated and finalized at location A. IMPRESSION: 1. Chronic elevation of the right hemidiaphragm but with normal sniff test. No evidence of phrenic nerve palsy.
--- OUTSIDE RECORDS SUMMARY | 2024-11-12 14:06 | XMS_ITS | Continuity of Care Document ---
Author Organization [facility]. 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
--- OUTSIDE RECORDS SUMMARY | 2024-11-12 14:06 | XMS_ITS | Continuity of Care Document ---
Author Organization [facility] Address [address] [place] [address] Phone Care Team Providers Care Service Department Manager Name Role Phone Markus De La Fuente MD Unavailable Unavailable Advance Directives Directive Yes / No Effective Date File Name No Information Encounters Encounter Description Practice Location Reason(s) For Visit Diagnoses Date Provider Providers Copied on Encounter [facility], [address], [place], [place], [address], [place] tel:[phone] [facility] CERVICAL DISC DISPLACMNTOTH ADV EFF MED/BIO SUB Leisa Aparicio. [address] , [place], [place], [address], [place]. tel:[phone] Family History Family Member Type Diagnosis Age [...]
--- OUTSIDE RECORDS SUMMARY | 2024-11-12 14:06 | XMS_ITS ---
Author Organization [facility] Address [address] [place] [address] Phone Care Team Providers Care Ui Developer With [employer] Name Role Phone Kathya Orona Primary Care Provider [phone] Active Problems Problem Noted Date Diagnosed Date [...]
--- OUTSIDE RECORDS SUMMARY | 2024-11-12 14:06 | XMS_ITS | Data Portability ---
Author Organization [facility], Main Office Address [address] [place] [address] Assessment No assessment recorded. Plan of Treatment Reminders Order Date Submit Date Provider Last Modified By Organization Details Last Modified Time Details Appointments None recorded. Lab HbA1c (hemoglobin A1c), blood 2023 024 [place] [facility], [address], [place], [address], 4 14:51:44 hemoglobin A1C, fingerstick [address], [place], [address], 3 11:56:57 hemoglobin A1C, fingerstick [address], [place], [address], 3 12:50:52 Referral property management assistant & immunologis t referral 2022 023 [email or web address] [facility], [address] [place], [address], 3 11:49:08 general surgeon referral 2022 023 [email or web address] [place], [address] [address], [place], [address], 3 11:41:03 Procedures None recorded. Surgeries None recorded. Imaging XR, lumbosacral spine, 2 or [address] [facility] ([facility]), [address], [place], [address], 3 07:23:32 Medication Orders metformin ER 500 mg 24 hr tablet,exte nded release (gastric retention) 2022 023 [email or web address] [facility], [address] [facility], [place], [address], 3 10:42:15 Januvia 100 mg tablet 2022 023 [email or web address] 200 [facility], [address] [facility], [place], [address], 3 17:01:13 metformin ER 500 mg 24 hr tablet,exte nded release (gastric retention) 2022 023 [email or web address] [facility], [address] [facility], [place], [address], 3 10:42:15 cyclobenzap rine 10 mg tablet 2022 023 YEFRI [facility] [facility], [address] [facility], [place], [address], 3 15:13:53 Patient TargetsNo targets recorded. Patient Instructions Encounter Date Encounter Id Patient Instructions Last Modified By Organization Details Last Modified Time 07/17/2023 [id number] reviewed diet [email or web address] Not availabl e 07/28/2023 09:50:07 Reason for Referral General Surgeon Referral for Ventral incisional hernia Referring Physician: Rosibel Muse [facility], Encounter Date: 12/10/2022 Military Pay Technician & Search Engine Optimization Strategist Ref erral for Chronic urticaria Referring Physician: Rosibel Muse [facility], Encounter Date: 03/19/2023 Results Created Date Observation Date Name Description Value Unit Range Abnormal Flag Note LastModifiedBy Organization Detail LastModifiedTime 04/01/2004/01/2023 hemog lobin A1C, skip rsluciano k HgbA1C 14 Not Available [address], [place], [address], 04/01/2023 12:27:07 07/17/20 23 07/17/2023 hemog lobin A1C, skip noriega k HgbA1C 7.3% Not Available [address], [place], [address], 07/17/2023 11:45:37 12/12/19 23 12/10/2022 XR, lumbo sacra l spine , 2 or 3 view No observ ation record ed. [address] [address], [place], [address], 12/11/2022 10:23:16 12/16/19 23 12/15/2022 MRI, lumba r spine , w/o contr ast No observ ation record ed. [address] [address], [place], [address], 12/17/2022 09:06:14 12/20/19 23 12/18/2022 CT, abdom en + pelvi s, w/o contr ast No observ ation record ed. [address] [address], [place], [address], 12/19/2022 09:06:54 02/09/20 23 02/08/2023 imagi ng/di agnos tic resul t No observ ation record ed. [address] [address], [place], [address], 02/11/2023 08:33:36 05/10/20 23 05/10/2023 CT, abdom en + pelvi s, w/ contr ast No observ ation record ed. [address] [address], [place], [address], 05/14/2023 09:26:03 05/28/20 23 05/28/2023 PET, skull base to mid-t high No observ ation record ed. [address] [address], [place], [address], 05/29/2023 12:47:13 07/23/20 23 07/23/2023 MRI, abdom en, w/o contr ast No observ ation record ed. [address] [address], [place], [address], 08/21/2023 16:04:02 08/19/19 24 08/19/2023 CT, abdom en + pelvi s, w/ contr ast No observ ation record ed. [address] [address], [place], [address], 08/21/2023 16:04:03 09/06/19 24 09/06/2023 MRI, brain + brain stem, w/wo contr ast No observ ation record ed. [address] [address], [place], [address], 09/10/2023 12:14:57 11/19/19 24 11/19/2023 PET, brain scan, metab olic evalu ation No observ ation record ed. [address] [address], [place], [address], 11/21/2023 10:45:08 Result Notes None recorded. Problems Name Problem SNOMED Code Status Onset Date Resolution Date Notes Provider Name and Address Organization Details Recorded Time Acute sinusitis 15368055 Active Not Available [facility] 3 16:21:40 Anxiety disorder 612590893 Active Not Available [facility] 3 16:21:40 Allergic contact dermatitis 895083409 Active Not Available [facility] 3 16:21:40 Eruption 939922780 Active Not Available [facility] 3 16:21:40 Low back pain 137876002 Active Not Available [facility] 3 16:21:40 Numbness of lower limb 743461707 Active Not Available [facility] 3 16:21:40 Depressive disorder 20543758 Active Not Available [facility] 3 16:21:40 Arthritis 7439532 Active Not Available [facility] 3 16:21:40 Hypertensive disorder 58410834 Active Not Available [facility] 3 16:21:40 Neuropathy 649990598 Active Not Available [facility] 3 16:21:40 Anxiety 83104817 Active Not Available [facility] 3 16:21:40 Hyperlipidemi a 71971759 Active Not Available [facility] 3 16:21:41 Allergic rhinitis 00353007 Active Not Available [facility] 3 16:21:41 Diarrhea 57119650 Active 2021 Not Available [facility] 3 16:21:41 Costal chondritis 82575498 Active 2016 Not Available [facility] 3 16:21:41 Spinal stenosis in cervical region 68366571 Active Not Available [facility] 3 16:21:41 Edema of lower extremity 361434325 Active 2022 Not Available [facility] 3 16:21:40 Ventral incisional hernia 681823250 Active 2022 Not Available [facility] 3 16:21:40 Spinal stenosis of lumbar region 05321361 Active 2022 Not Available [facility] 3 16:21:40 Umbilical hernia 667444722 Active 2022 Not Available [facility] 3 16:21:40 Chronic urticaria 85560663 Active 2022 Not Available [facility] 3 16:21:41 Uncontrolled type 2 diabetes mellitus 523635493 Active 2022 Not Available [facility] 3 16:21:40 Essential hypertension 18613823 Active 2022 Not Available [facility] 3 16:21:41 COVID-19 428210350 Active 2022 Nancy Ashford MD [address], [facility] [address], [place], [address] , [facility] [employer] [facility] 3 11:37:11 Type 2 diabetes mellitus 98841138 Active 2023 TRAVIS Samano [address], [facility] [address], [place], [address] , [facility] 4 11:23:31 Notes:Some problems listed i n Documents: #[id number], #[id number] could not be added to this patient's chart. Please review these documents and add these problems to the patient's chart manually as needed. Problem Notes None recorded. Procedures Surgical History None recorded. Imaging Results Imaging Date Name Status LastModified by Organiz ation Details LastModified Time 12/10/2022 XR, lumbosacral spine, 2 or 3 view [address], [address], 12/11/2022 10:23:16 12/15/2022 MRI, lumbar spine, w/o contrast completed [address], [address], 12/17/2022 09:06:14 12/18/2022 CT, abdomen + pelvis, w/o contrast completed [address], [address], 12/19/2022 09:06:54 02/08/2023 imaging/diagnos tic result completed [address], [address], 02/11/2023 08:33:36 05/10/2023 CT, abdomen + pelvis, w/ contrast completed [address], [address], 05/14/2023 09:26:03 05/28/2023 PET, skull base to mid-thigh completed [address], [address], 05/29/2023 12:47:13 07/23/2023 MRI, abdomen, w/o contrast completed [address], [address], 08/21/2023 16:04:02 08/19/2023 CT, abdomen + pelvis, w/ contrast completed [address], [address], 08/21/2023 16:04:03 09/06/2023 MRI, brain + brain stem, w/wo contrast completed [address], [address], 09/10/2023 12:14:57 11/19/2023 PET, brain scan, metabolic evaluation completed [address], [address], 11/21/2023 10:45:08 Procedure Notes None recorded. Medical Equipment None Reported. Allergies Allergen ID Allergen Name Allergen Category Reaction Reaction Severity Criticality Documentation Date Start Date Code Code System Note Provider Name and Address Organization Details Recorded Time 24195 Substance with sulfonami de structure and antibacte rial mechanism of action (substanc e) medicatio n vasculiti s moderate Not available 10/10/2022 32158 8003 SNOMED Not Available [facility] 3 08:53:14 96544 Product containin g penicilli n (product) medicatio n Not available Not available Not available 10/10/2022 29706 8001 SNOMED Not Available [facility] 3 08:53:14 85897 erythromy rae medicatio n Not available Not available Not available 10/10/2022 4053 RxNorm Not Available [facility] 3 08:53:14 65359 amoxicill in medicatio n Not available Not available Not available 10/10/2022 723 RxNorm Not Available [facility] 08:53:14 Medications Name Sig Start Date Stop [...] 1 TABLET 2 HOURS PRIOR TO SCAN 05/01 /2023 completed Not Available Not Available Not Available [...] 80 mg/mL suspensio n for injection active [facility] NAMED [facility]#[phone] Not Available Not Available Not Available [...] Updated DateTime 3 157.48 cm 30.4 kg/m2 72280.3 3 g 97.2 [degF] 112 /min 98 % 98 % 160 mm[Hg] 70 mm[Hg] VERONICA Ro [place] [employer] [facility] [employer] [facility] 3 14:52:52 Date Recorded Body height Body mass index (BMI) Body weight Body temperature Heart rate Oxygen saturation Oxygen saturation in Arterial blood by Pulse oximetry Systolic blood pressure Diastolic blood pressure Provider Name and Address Organization Details Last Updated DateTime 3 157.48 cm 29.8 kg/m2 08615.5 6 g 98.1 [degF] 69 /min 97 % 97 % 140 mm[Hg] 86 mm[Hg] VERONICA Ro [facility] [employer] [facility] 3 16:18:55 Date Recorded Body height Body mass index (BMI) Body weight Body temperature Heart rate Oxygen saturation Oxygen saturation in Arterial blood by Pulse oximetry Systolic blood pressure Diastolic blood pressure Provider Name and Address Organization Details Last Updated DateTime 3 157.48 cm 30.2 kg/m2 86214.7 4 g 97.5 [degF] 90 /min 97 % 97 % 110 mm[Hg] 72 mm[Hg] Kayleigh ayon CMA [place] [employer] [facility] 3 12:12:37 Date Recorded Body height Body mass index (BMI) Body weight Body temperature Heart rate Oxygen saturation Oxygen saturation in Arterial blood by Pulse oximetry Respiratory rate Systolic blood pressure Diastolic blood pressure Provider Name and Address Organization Details Last Updated DateTime 3 157.48 cm 29.3 kg/m2 65993.7 8 g 97.6 [degF] 89 /min 98 % 98 % 16 /min 136 mm[Hg] 84 mm[Hg] Merna Hernandez RN [facility] [employer] [facility] 3 11:30:35 Date Recorded Body height Body mass index (BMI) Body weight Respiratory rate Body temperature Heart rate Oxygen saturation Oxygen saturation in Arterial blood by Pulse oximetry Systolic blood pressure Diastolic blood pressure Provider Name and Address Organization Details Last Updated DateTime 4 157.48 cm 28.3 kg/m2 33995.8 2 g 16 /min 97.3 [degF] 83.99 /min 98 % 98 % 124 mm[Hg] 86 mm[Hg] Merna Hernandez RN [facility] [employer] [facility] 4 11:14:22 Social History None recorded. Functional Status None recorded. Mental Status None recorded. Family History Nothing Reported. Medical History No medical history recorded. Gynecological HistoryNo gynecological history recorded. Obstetrics History GPAL:G 0 P 0 0 0 0 Immunizations Vaccine Type Date Status Note Provider Nam e and Address Organization Details Recorded Time Influenza, split virus, quadrivalent, PF 05/28/2018 completed Not Available [facility] 3 08:53:10 Influenza, split virus, quadrivalent, PF 06/25/2017 completed Not Available [facility] 3 08:53:10 Past Encounters Encounter ID Performer Location Encounter Start Date Encounter Closed Date Diagnosis/Indication Diagnosis SNOMED-CT Code Diagnosis ICD10 Code Diagnosis Note [id number] [facility] [place] [address] [place] [address] 01/03/2021 00:00:00 01/03/2021 20:10:24 [id number] [facility] [place] [address] [place] [address] [place] [address] 04/07/2021 00:00:00 04/08/2021 10:18:03 [id number] [facility] [place] [address] [place] [address] y , [place] [address] 06/08/2021 00:00:00 06/08/2021 13:20:50 [id number] [facility] [place] [address] [place] [address] [place] [address] 11/02/2021 00:00:00 11/02/2021 19:44:37 [id number] [facility] [place] [address] [place] [address] [place] [address] 11/16/2021 00:00:00 11/16/2021 21:32:45 [id number] Rosibel Muse MD [facility] [place] [address] [place] [address] [place] [address] 12/10/2022 14:41:31 12/10/2022 15:20:19 Edema of lower extremity 463746748 R60.0 Compressio n stockings. elevate legs. Watch salt in diet. Low back pain 149800472 M54.50 Ventral in cisional hernia 990546557 K43.2 [id number] Rosibel Muse MD [facility] [place] [address] [place] [address] [place] [address] 03/19/2023 16:12:31 03/19/2023 16:49:01 Chronic urticaria 60646138 L50.8 Use zyrtec. Will send to property management assistant [id number] Rosibel Muse MD [facility] [place] [address] [place] [address] [place] [address] 04/01/2023 12:03:23 04/01/2023 12:38:06 Uncontrolled type 2 diabetes mellitus 297457792 E11.65 A1C is >14%. New onset DM2. Will start metformin Will f/u in 3 months. Needs to watch carbs in diet and also pamphlets given out for DM. [id number] TRAVIS Samano [facility] [place] [address] [place] [address] 07/17/2023 11:25:10 07/17/2023 12:00:58 Uncontrolled type 2 diabetes mellitus 730533359 E11.65 [id number] TRAVIS Samano [facility] [place] [address] [place] [address] 10/16/2023 11:06:30 10/16/2023 11:28:23 Type 2 diabetes mellitus 61686791 E11.9 Allergic rhinitis 101865 04 J30.9 Anxiety 19193216 F41.9 Arthritis 7290017 M19.90 Depressive disorder 3548 9007 F32.A Essential hypertension 60125322 I10 Hyperlipidemia 28539458 E78.5 Low back pain 324958227 M54.50 Neuropathy 678610659 G62 .9 Health Concerns Section Related Observation LastModified by Organization Detai ls LastModified Time None Recorded Concern Status LastModified by Organization Details LastModified Time None Recorded Advance Directives Directive None Recorded Payers Encounter Date Sequence Insurance Name Policy Number Policy Mcrae Covered Member ID Mcrae Member ID Guarantor Name 12/10/2022 1 [facility] (MEDICARE REPLACEMENT/A DVANTAGE - HMO) [id number] January White [id number] January White 12/10/2022 2 [place] [facility] Krissy White [id number] January White 03/19/2023 1 [facility] (MEDICARE REPLACEMENT/A DVANTAGE - HMO) [id number] January White [id number] January White 03/19/2023 2 [place] [facility] Krissy White [id number] January White 04/01/2023 1 [facility] (MEDICARE REPLACEMENT/A DVANTAGE - HMO) [id number] January White [id number] January White 04/01/2023 2 [place] [facility] Krissy White [id number] January White 07/17/2023 1 [facility] (MEDICARE REPLACEMENT/A DVANTAGE - HMO) [id number] Krissy Oneal [id number] Krissy Oneal 07/17/2023 2 [place] [facility] Krissy White [id number] Krissy Oneal 10/16/2023 1 [facility] (MEDICARE REPLACEMENT/A DVANTAGE - HMO) [id number] Krissy White [id number] Krissy Oneal 10/16/2023 2 [place] [facility] Krissy Oneal [id number] Krissy Oneal Notes Date Note Type Note [...] for LBP. Rosibel Muse MD [address], [place], [address], [employer] 12/11/2022 06:23:51 03/19/2023 text/html Is breaking out with hives going on since 02/01. It comes and goes. The bumps do itch. Using benadryl and cortisone cream. Stopped losartan Has been taking 2 amlodipine. Went to ER and was given prednisone and taking benadryl. It makes her drowsy. Rosibel Muse MD [address], [place], [address], [employer] 03/19/2023 20:14:31 04/01/2023 text/html Here today for [...] fatigued a lot. Rosibel Muse MD [address] [address], [place], [address], [facility] 04/01/2023 20:57:05 07/17/2023 text/html here for f/u TRAVIS Samano [address] [address], [place], [address], [employer] 07/28/2023 09:50:11 10/16/2023 text/html no changes TRAVIS Samano [address] [address], [place], [address], [facility] [employer] 10/26/2023 21:20:45 OBGyn Episode No OBEpisode recorded.
--- OUTSIDE RECORDS SUMMARY | 2024-11-12 14:06 | XMS_ITS | Clinical Summary ---
Author Organization [facility] Address [address] [place] [address] Phone Care Team Providers Care Hand Striper Name Role Phone GamalloydKathya dick Primary Care Provider [phone] Allergies Active Allergy Reactions Criticality Noted Date [...] Anxiety. Active fluticasone propionate (FLONASE) 50 mcg/spray [place], Suspension nasal inhaler Administer 2 Sprays in [...] daily. liquid Active naloxone (NARCAN) 4 mg/spray [place], Non-Aerosol EMERGENCY USE ONLY: Administer 1 spray [...] Encounters Date Type Department Care Team Description 10/28/2024 External Device Data STL ABSTRACTION Provider, Abstract 09/29/2024 External Device Data [facility] ABSTRACTION Provider, Abstract 08/25/2024 2:00 PM GLOBE CLEANER Office Visit [facility] Oncology and Hematology [facility] [address] [place] [address] Royal Newell MD Ampullary carcinoma (CMS/HCC) (Primary Dx) 08/19/2024 Orders Only [facility] Oncology and Hematology [facility] [address] [place] [address] Royal Newell MD 08/14/2024 Orders Only [facility] Oncology and Hematology - [place] [address] [place] [address] Royal Newell MD from Last 3 Months Immunizations Immunization [...] Comments Blood Pressure 129/85 08/25/2024 1:33 PM GLOBE CLEANER Pulse 86 08/25/2024 1:33 PM GLOBE CLEANER Temperature 36.4 C (97.6 F) 08/25/2024 1:33 PM GLOBE CLEANER Respiratory Rate 20 08/25/2024 1:33 PM GLOBE CLEANER Oxygen Saturation 97% 08/25/2024 1:33 PM GLOBE CLEANER Inhaled Oxygen Concentration - - Weight 67.6 kg (149 lb) 08/25/2024 1:33 PM GLOBE CLEANER Height 157.5 cm (5' 2 ) 02/20/2023 10:31 AM CDT Body Mass Index 27.25 02/20/2023 10:31 AM CDT Plan of Treatment Upcoming Encounters Date Type Department Care Team (Late st Contact Info) Description 11/30/2024 11:00 AM CDT Office Visit [facility] Oncology and Hematology - [place] [address] [place] [address] Bernie Gil MD [address] [place] [address] Health Maintenance Due Date Last [...] , 06/25/2017 Medical Devices Implanted Type Area Growth Media Mixer Mushroom Device Identifier Shelf Expiration Date Model / Serial / Lot Clip Ligating Horizon Lg Ti [id number] - Csc - [id number] Implanted:Qty : 1 on 12/29/2021 by Phil Mejia MD at [facility] N/A: Abdomen TELEFLEX- WECK CLOSURE SYS [id number] / / Clip Ligating Horizon Ti Sm 24 [id number] Rp - [id number] Implanted:Qty : 2 on 12/29/2021 by Phil Mejia MD at [facility] Clip N/A: Abdomen TELEFLEX- WECK CLOSURE SYS 132528 RP / / Tube Feed Kangaroo 5fr 16in [id number] - [id number] Implanted:Qty : 1 on 12/29/2021 by Phil Mejia MD at [facility] Feeding Device N/A: Abdomen CARDINAL - PATIENT RECOVERY 276104 / / Description:INSERTED INTO PA NCREATIC DUCT Tube Feed Metz [id number] - [id number] Implanted:Qty : 1 on 12/29/2021 by Phil Mejia MD at [facility] Feeding Device N/A: Abdomen CARDINAL - PATIENT RECOVERY 04/11/2026 [id number] / / [id number] Description:WRAPPER CHECKED BY R.N. 01/01/22 Hemostat Surg Snow 2x4in 2081 - [id number] Implanted:Qty : 1 on 12/29/2021 by Phil Mejia MD at [facility] Hemostatic N/A: Abdomen J&J- [employer] 09/11/2023 208 / / [id number] Sealant Fibrin Vistaseal 10ml Vst10 - [id number] Implanted:Qty : 1 on 12/29/2021 by Phil Mejia MD at [facility] Sealant N/A: Abdomen J&J- [employer] 02/07/2023 VST10 / [id number] / [id number] Description:BOX CHECKED BY R .N. 01/01/2022 Stent Pncrtc Geenen 7fr 9cm [id number] - [id number] Implanted:Qty : 1 on 05/25/2021 by Omar Gonzalez MD at [facility] Stent COOK- ENDOSCOPY - HALINA-COOK [id number] 09/12/2023 [id number] / / [id number] Stent Bili Wallflex Rx 10x40 [id number] - [id number] Implanted:Qty : 1 on 05/25/2021 by Omar Gonzalez MD at [facility] Stent [employer]- ENDOSCOPY [id number] 02/13/2023 [id number] / / [id number] Insurance [place] Member Subscriber Plan / Payer (Ef fective 2017-Present) Name:Krissy Oneal Relation to Subscriber:Self Name:Krissy Oneal Payer ID:Not on file Group ID:[id number] Type:RX Medicare Part D Address: [address] [employer]INTERNAL) [facility] [id number] [place] Advance Directives For more information, please contact: [phone] * Full Code (Latest Code Status on File) Date Activated Date Inactivated Comments 12/29/2021 8:18 PM 01/08/2022 8:26 PM * Full Code Date Activated Date Inactivated Comments 12/29/2021 5:49 AM 12/29/2021 8:17 PM * Full Code Date Activated Date Inactivated Comments 05/25/2021 12:46 PM 06/01/2021 9:14 PM * Full Code Date Activated Date Inactivated Comments 05/24/2021 5:14 AM 05/25/2021 12:46 PM Care Teams Hand Striper Relationship Specialty [place] [address] [place] [address] [address] [place] [address] PCP - General Family Practice 05/07/24
--- OUTSIDE RECORDS SUMMARY | 2024-11-12 14:07 | XMS_ITS | Clinical Summary ---
Author Organization [facility] Address [address] [place] [address] Care Team Providers Care Project Economist Name Role Phone Sabino Luke MD Unavailable Kathya Orona DO Primary Care Provider [phone] Allergies Active Allergy Reactions Criticality Noted Date [...] 1 tablet (10 mg total) by mouth fluoroscope operator before breakfast 30 tablet 4 Active [...] 1 tablet (10 mg total) by mouth fluoroscope operator before breakfast 30 tablet 4 Active cyclobenzaprine (FLEXERIL) 10 mg tabletIndicatio ns:Muscle Spasm Take 1 tablet (10 mg total) by mouth 2 (two) times a day as needed for muscle spasms 30 tablet 4 Active hydroCHLOROthia zide (HYDRODIURIL) 25 mg tabletIndicatio ns:hypertension Take 1 tablet (25 mg total) by mouth fluoroscope operator before breakfast 30 tablet 4 Active [...] on file Legal Sex Female 8:15 AM MEDICAL RESEARCH ASSISTANT Gender Identity Not on file Sexual Orientation Not on file Occupation Industry Job Start Date Job End Date Disability Not on file Not on file Not on file Obstetrics History Last Filed Vital Signs Vital Sign Reading Time Taken Comments Blood Pressure 130/86 07/03/2024 10:53 AM MEDICAL RESEARCH ASSISTANT Pulse 85 07/03/2024 10:53 AM MEDICAL RESEARCH ASSISTANT Temperature 36.6 C (97.9 F) 07/03/2024 10:53 AM MEDICAL RESEARCH ASSISTANT Respiratory Rate 16 07/03/2024 10:53 AM MEDICAL RESEARCH ASSISTANT Oxygen Saturation 97% 07/03/2024 10:53 AM MEDICAL RESEARCH ASSISTANT Inhaled Oxygen Concentration - - Weight 68.5 kg (151 lb) 07/03/2024 10:53 AM MEDICAL RESEARCH ASSISTANT Height 157.5 cm (5' 2 ) 07/03/2024 10:53 AM MEDICAL RESEARCH ASSISTANT Body Mass Index 27.62 07/03/2024 10:53 AM MEDICAL RESEARCH ASSISTANT Plan of Treatment Health Maintenance Due Date [...] on stairs Contact your local community or [facility] for information on exercise, fall prevention programs, or options for improving home safety. Medical Devices Implanted Type Area Wood Model Builder Device Identifier Shelf Expiration Date Model / Serial / Lot Davol Inc/C R Bard [id number] Bard [id number] Monofilament Soft Lightweight Low Profile Square - [id number] - [id number] Implanted:Qty: 1 on 05/11/2024 by Sabino Luke MD at [facility] Mesh N/A: Abdomen Davol Inc/C R Bard [id number] 11/06/2028 [id number] / [id number] / [id number] Insurance [facility] [place] [address] [facility] MEDICARE ADVANTAGE IDPA [facility] MEDICARE ADVANTAGE IDPA Advance Directives For more information, please contact: [phone] * Full Code (Latest Code Status on File) Date Activated Date Inactivated Comments 05/11/2024 8:24 PM 05/19/2024 3:53 PM Care Teams Project Economist Relationship Specialty Start Date End Date Kathya Orona DO [facility] [address] [place] [address] PCP - General Family Medicine 05/12/24 Sabino Luke MD [address] [place] [address] Referring Physician General Surgery 12/06/23
--- OUTSIDE RECORDS SUMMARY | 2024-11-12 14:07 | XMS_ITS | Referral Summary ---
Author Organization [facility] Address [address] [place] [address] Care Team Providers Care Jewelry Sales Associate Name Role Phone Sabino Luke MD Unavailable [phone] Kathya Orona DO Primary Care Provider [phone] Allergies Active Allergy Reactions Criticality Noted Date [...] 1 tablet (10 mg total) by mouth donor support technician before breakfast 30 tablet 4 Active fluticasone [...] 1 tablet (10 mg total) by mouth donor support technician before breakfast 30 tablet 4 Active cyclobenzaprine (FLEXERIL) 10 mg tabletIndicatio ns:Muscle Spasm Take 1 tablet (10 mg total) by mouth 2 (two) times a day as needed for muscle spasms 30 tablet 4 Active hydroCHLOROthia zide (HYDRODIURIL) 25 mg tabletIndicatio ns:hypertension Take 1 tablet (25 mg total) by mouth donor support technician before breakfast 30 tablet 4 Active sertraline [...] on file Legal Sex Female 8:15 AM TWISTER IN Gender Identity Not on file Sexual Orientation Not on file Occupation Industry Job Start Date Job End Date Disability Not on file Not on file Not on file Last Filed Vital Signs Vital Sign Reading Time Taken Comments Blood Pressure 130/86 07/03/2024 10:53 AM TWISTER IN Pulse 85 07/03/2024 10:53 AM TWISTER IN Temperature 36.6 C (97.9 F) 07/03/2024 10:53 AM TWISTER IN Respiratory Rate 16 07/03/2024 10:53 AM TWISTER IN Oxygen Saturation 97% 07/03/2024 10:53 AM TWISTER IN Inhaled Oxygen Concentration - - Weight 68.5 kg (151 lb) 07/03/2024 10:53 AM TWISTER IN Height 157.5 cm (5' 2 ) 07/03/2024 10:53 AM TWISTER IN Body Mass Index 27.62 07/03/2024 10:53 AM TWISTER IN Plan of Treatment Not on file Goals [...] home safety. Medical Devices Implanted Type Area Chip Bin Conveyor Tender Device Identifier Shelf Expiration Date Model / Serial / Lot Davol Inc/C R Bard [id number] Bard [id number] Monofilament Soft Lightweight Low Profile Square - [id number] - [id number] Implanted:Qty: 1 on 05/11/2024 by Sabino Luke MD at [facility] Mesh N/A: Abdomen Davol Inc/C R Bard [id number] 11/06/2028 [id number] / [id number] / [id number] [place] [address] IDPA [facility] MEDICARE ADVANTAGE IDPA Advance Directives For more information, please contact: [phone] * Full Code (Latest Code Status on File) Date Activated Date Inactivated Comments 05/11/2024 8:24 PM 05/19/2024 3:53 PM Care Teams Jewelry Sales Associate Relationship Specialty Start Date End Date Kathya Orona DO [address] [facility] [address] [address] PCP - General Family Medicine 05/12/24 Sabino Luke MD [address] [place] [address] Referring Physician General Surgery 12/06/23
--- OUTSIDE RECORDS SUMMARY | 2024-11-12 14:07 | XMS_ITS ---
Author Organization [facility] Address [address] [place] [address] Care Team Providers Care Tin Cutter Name Role Phone Sabino Luke MD Unavailable [phone] Kathya Orona DO Primary Care Provider [phone] Active Problems Problem Noted Date Diagnosed Date [...]
== END 2024-11-12 13:42 | disposition home or self-care (01) ==
LOC: ANHIMG 13:43
PROVIDERS: Visit Provider Nurse Practitioner Family
DX: J98.6 Disorders of diaphragm (principal)
CPT/HCPCS: 71046; 76000

== ENCOUNTER 2024-11-23 08:00 | Outpatient (CLI) | payer MEDICARE, MEDICAID, SELFPAY ==
--- NOTE | ~2024-11-23 | US_ITS ---
EXAM: RENAL ULTRASOUND HISTORY: proteinuria, unspecified . 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 COMPARISON: Reference is made to a CT examination of the chest abdomen and pelvis performed less than one hour earlier. FINDINGS: RIGHT KIDNEY: 10.0 x 4.7 x 4.1 cm. The parenchyma of the right kidney is unremarkable in echogenicity. No hydronephrosis or bulky renal calculi. LEFT KIDNEY: 10.1 x 4.5 x 4.0 cm No hydronephrosis or renal calculi. The parenchyma of the left kidney is unremarkable in echogenicity. BLADDER: The bladder is minimally distended and otherwise unremarkable. Both ureteral jets were visualized. IMPRESSION: No hydronephrosis or renal calculi. Unremarkable sonographic evaluation of the bilateral kidneys, as detailed above. Reviewed, dictated and finalized at location A. IMPRESSION: No hydronephrosis or renal calculi. Unremarkable sonographic evaluation of the bilateral kidneys, as detailed above .
--- NOTE | ~2024-11-23 | CT_ITS ---
Clinical Indication: Ampullary carcinoma CT Scan of the Chest, Abdomen, and Pelvis with Contrast: Technique: Contiguous sections were acquired throughout the chest, abdomen, and pelvis after intraven ous administration of 100 cc of Omnipaque 350. Dose reduction technique was used on this scan by uti lizing automated exposure control and iterative reconstruction technique. The dose-length product (DL P) was 551.81 mGy-cm. Comparison: 09/17/2024 Findings: There is no evidence of any significant mediastinal, hilar or axillary lymphadenopathy. The mediastin al soft tissues and vascular structures appear normal. There is no evidence of pleural or pericardial effusion. Several subcentimeter pulmonary nodules the right lung are unchanged. There is right basilar atelecta tic change. 9 mm left basilar pulmonary nodule slightly more prominent, possibly due to slice selecti on/technical differences (axial image 61). Hypodense solid mass in the left hepatic lobe measures approximately 4.7 x 3.1 x 3.3 cm in size. Ther e is central extension of the lesion suspicious for tumor invasion into the left hepatic vein.. The s pleen, pancreas, adrenals and kidneys are within normal limits. Cholecystectomy clips are present. No evidence of aortic aneurysm. No lymphadenopathy. No bowel obstruction or bowel wall thickening. There is no evidence to suggest acute appendicitis. Urinary bladder is unremarkable. No pelvic mass evident. Status post hysterectomy. No ascites. Impression: Left hepatic lobe presumed metastatic mass with invasion into the left hepatic vein, overall similar to prior exam from 08/10/2024. Pulmonary nodules, as detailed above, similar to prior exam. 9 mm left basilar pulmonary nodule is po ssibly minimally increased. Reviewed, dictated and finalized at location . Impression: Left hepatic lobe presumed metastatic mass with invasion into the left hepatic vein, overall similar to prior exam from 08/10/2024. Pulmonary nodules, as detailed above, similar to prior exam. 9 mm left basilar pulmonary nodule is possibly minimally increased.
--- OUTSIDE RECORDS SUMMARY | 2024-11-23 08:09 | XMS_ITS | Continuity of Care Document ---
Author Organization [facility] Address [address] [place] [address] Phone Care Team Providers Care Urban And Regional Planner Name Role Phone Markus De La Fuente MD Unavailable Unavailable Advance Directives Directive Yes / No Effective Date File Name No Information Encounters Encounter Description Practice Location Reason(s) For Visit Diagnoses Date Provider Providers Copied on Encounter [facility], [address], [place], [place], [id number], [place] tel:[phone] [facility] CERVICAL DISC DISPLACMNTOTH ADV EFF MED/BIO SUB Leisa Aparicio. [address] , [place], [place], [id number], [place]. tel:[phone] Family History Family Member Type Diagnosis Age [...]
--- OUTSIDE RECORDS SUMMARY | 2024-11-23 08:10 | XMS_ITS | Continuity of Care Document ---
Author Organization [facility]. If a dditional information is needed, contact Health Information Management at [phone] Address [address] [place] [address] Phone Care Team Providers Care Industrial Relations Commissioner Name Role Phone Unavailable Unavailable Unavailable Unavailable Unavailable Unavailable Unavailable Unavailable Unavailable Problems Tongue swelling Onset:01-Mar-2023 [place] Meghan A SALES TRAINING COORDINATOR Allergic reaction Onset:01-Mar-2023 Lorna Meghan A SALES TRAINING COORDINATOR Allergies and Adverse Reactions naproxen(Allergy) Onset: 01-Mar-2023 Reaction:ITCHING Nitrofurantoin(Allergy) Onset: 01-Mar-2023 Reaction:ITCHING Amoxicillin(Allergy) Onset: 01-Mar-2023 Reaction:ITCHING PENCILLIN(Allergy) Onset: 01-Mar-2023 Reaction:UNKNOWN Social History Smoking Status Ex-smoker Recorded: 01-Mar-2023
--- OUTSIDE RECORDS SUMMARY | 2024-11-23 08:10 | XMS_ITS ---
Author Organization [facility] Address [address] [place] [address] Phone Care Team Providers Care Copy Reader Name Role Phone Kathya Orona Primary Care Provider [phone] Active Problems Problem Noted Date Diagnosed Date [...]
--- OUTSIDE RECORDS SUMMARY | 2024-11-23 08:10 | XMS_ITS | Clinical Summary ---
Author Organization [facility] Address [address] [place] [address] Phone Care Team Providers Care Air Carrier Inspector Name Role Phone GamalloydKimberlyn dickna Kirsten Primary Care Provider [phone] Allergies Active Allergy Reactions Criticality Noted Date [...] Anxiety. Active fluticasone propionate (FLONASE) 50 mcg/spray [place], Suspension nasal inhaler Administer 2 Sprays in [...] daily. liquid Active naloxone (NARCAN) 4 mg/spray [place], Non-Aerosol EMERGENCY USE ONLY: Administer 1 spray [...] [address] scan. 1 Capsule 5 Active predniSONE (DELTASONE) 50 mg tablet Take 1 tablet by mouth [address] scan, [address] scan, and [address] scan. 3 Tablet 5 Active diphenhydrAMIN E (BENADRYL) 50 mg capsule Take 1 tablet [address] scan. 1 Capsule 4 11/20/19 25 Discontin ued(Reord er) predniSONE (DELTASONE) 50 mg tablet Take 1 tablet by mouth [address] scan, [address] scan, and [address] scan. 3 Tablet 4 11/20/19 25 Discontin ued(Reord er) Active Problems Problem Noted [...] Encounters Date Type Department Care Team Description 11/19/2024 Refill [facility] [address] [place] [address] Royal Newell MD 10/28/2024 External Device Data STL ABSTRACTION Provider, Abstract 09/29/2024 External Device Data ST[facility] ABSTRACTION Provider, Abstract 08/25/2024 2:00 PM DIRECTOR COMMERCIAL SALES Office Visit [facility] and [facility] [address] [place] [address] Royal Newell MD Ampullary carcinoma (CMS/HCC) (Primary Dx) from Last 3 Months Immunizations Immunization Administration [...] Comments Blood Pressure 129/85 08/25/2024 1:33 PM DIRECTOR COMMERCIAL SALES Pulse 86 08/25/2024 1:33 PM DIRECTOR COMMERCIAL SALES Temperature 36.4 C (97.6 F) 08/25/2024 1:33 PM DIRECTOR COMMERCIAL SALES Respiratory Rate 20 08/25/2024 1:33 PM DIRECTOR COMMERCIAL SALES Oxygen Saturation 97% 08/25/2024 1:33 PM DIRECTOR COMMERCIAL SALES Inhaled Oxygen Concentration - - Weight 67.6 kg (149 lb) 08/25/2024 1:33 PM DIRECTOR COMMERCIAL SALES Height 157.5 cm (5' 2 ) 02/20/2023 10:31 AM CDT Body Mass Index 27.25 02/20/2023 10:31 AM CDT Plan of Treatment Upcoming Encounters Date Type Department Care Team (Late st Contact Info) Description 11/30/2024 11:00 AM CDT Office Visit [facility] - [place] [address] [place] [address] Bernie Gil MD [address] [place] [address] Health Maintenance Due Date Last [...] series) 2013 OSTEOPOROSIS SCREENING 2018 [place]) Prev entative Visit/Annual Wellness Visit 08/12/2024 DIABETES HBA1C Q 6 MONTHS 10/14/2024 04/16/2024 INFLUENZA VACCINE Completed 05/19/2024, , 06/25/2017 Medical Devices Implanted Type Area Data Analyst Etl Developer Device Identifier Shelf Expiration Date Model / Serial / Lot Clip Ligating Horizon Lg Ti [id number] - Csc - [id number] Implanted:Qty : 1 on 12/29/2021 by Phil Mejia MD at [facility] Clip N/A: Abdomen TELEFLEX- WECK CLOSURE SYS [id number] / / Clip Ligating Horizon Ti Sm [id number] Rp - [id number] Implanted:Qty : 2 on 12/29/2021 by Phil Mejia MD at [facility] Clip N/A: Abdomen TELEFLEX- WECK CLOSURE SYS [id number] RP / / Tube Feed Kangaroo 5fr 16in [id number] - [id number] Implanted:Qty : 1 on 12/29/2021 by Phil Mejia MD at [facility] Feeding Device N/A: Abdomen CARDINAL - PATIENT RECOVERY [id number] / / Description:INSERTED INTO PA NCREATIC DUCT Tube Feed [id number] - [id number] Implanted:Qty : 1 on 12/29/2021 by Phil Mejia MD at [facility] Feeding Device N/A: Abdomen CARDINAL - PATIENT RECOVERY 04/11/2026 [id number] / / [id number] Description:WRAPPER CHECKED BY R.NAlina 01/01/22 Hemostat Surg Snow 2x4in 208 - [id number] Implanted:Qty : 1 on 12/29/2021 by Phil Mejia MD at [facility] Hemostatic N/A: Abdomen J&J- ETHICON INC 09/11/2023 [id number] / / [id number] Sealant Fibrin Vistaseal 10ml Vst10 - [id number] Implanted:Qty : 1 on 12/29/2021 by Phil Mejia MD at [facility] Sealant N/A: Abdomen J&J- ETHICON INC 02/07/2023 [id number] / [id number] / [id number] Description:BOX CHECKED BY Melisa Nowak 01/01/2022 Stent Pncrtc Geenen 7fr 9cm [id number] - [id number] Implanted:Qty : 1 on 05/25/2021 by Omar Gonzalez MD at [facility] Stent COOK- ENDOSCOPY - HALINA-COOK [id number] 09/12/2023 [id number] / / [id number] Stent Bili Wallflex Rx 10x40 [id number] - [id number] Implanted:Qty : 1 on 05/25/2021 by Omar Gonzalez MD at [facility] Stent [employer] SCI- ENDOSCOPY [id number] 02/13/2023 [id number] / / [id number] Insurance MEDICAID [place] RX [employer] RX Member Subscriber Plan / Payer (Ef fective 2017-Present) Name:Krissy Oneal Relation to Subscriber:Self Name:Krissy Oneal Payer ID:Not on file Group ID:[id number] Type:RX Medicare Part D Address: [address] [place] [facility] [employer] (INTERNAL) [facility] [address] MEDICAID [place] Advance Directives For more information, please contact: [phone] * Full Code (Latest Code Status on File) Date Activated Date Inactivated Comments 12/29/2021 8:18 PM 01/08/2022 8:26 PM * Full Code Date Activated Date Inactivated Comments 12/29/2021 5:49 AM 12/29/2021 8:17 PM * Full Code Date Activated Date Inactivated Comments 05/25/2021 12:46 PM 06/01/2021 9:14 PM * Full Code Date Activated Date Inactivated Comments 05/24/2021 5:14 AM 05/25/2021 12:46 PM Care Teams Air Carrier Inspector Relationship Specialty Start Date End Date Kathya Orona DO [address] [facility] [address] [place] [address] PCP - General Family Practice 05/07/24
--- OUTSIDE RECORDS SUMMARY | 2024-11-23 08:11 | XMS_ITS | Referral Summary ---
Author Organization [facility] Address [address] [place] [address] Care Team Providers Care Php Magento Developer Name Role Phone Sabino Luke MD Unavailable [phone] Kathya Orona DO Primary Care Provider [phone] Allergies Active Allergy Reactions Criticality Noted Date [...] 1 tablet (10 mg total) by mouth insecticide supervisor before breakfast 30 tablet 4 Active fluticasone [...] 1 tablet (10 mg total) by mouth insecticide supervisor before breakfast 30 tablet 4 Active cyclobenzaprine (FLEXERIL) 10 mg tabletIndicatio ns:Muscle Spasm Take 1 tablet (10 mg total) by mouth 2 (two) times a day as needed for muscle spasms 30 tablet 4 Active hydroCHLOROthia zide (HYDRODIURIL) 25 mg tabletIndicatio ns:hypertension Take 1 tablet (25 mg total) by mouth insecticide supervisor before breakfast 30 tablet 4 Active sertraline [...] on file Legal Sex Female 8:15 AM SUPERVISOR HOT STRIP MILL Gender Identity Not on file Sexual Orientation Not on file Occupation Industry Job Start Date Job End Date Disability Not on file Not on file Not on file Last Filed Vital Signs Vital Sign Reading Time Taken Comments Blood Pressure 130/86 07/03/2024 10:53 AM SUPERVISOR HOT STRIP MILL Pulse 85 07/03/2024 10:53 AM SUPERVISOR HOT STRIP MILL Temperature 36.6 C (97.9 F) 07/03/2024 10:53 AM SUPERVISOR HOT STRIP MILL Respiratory Rate 16 07/03/2024 10:53 AM SUPERVISOR HOT STRIP MILL Oxygen Saturation 97% 07/03/2024 10:53 AM SUPERVISOR HOT STRIP MILL Inhaled Oxygen Concentration - - Weight 68.5 kg (151 lb) 07/03/2024 10:53 AM SUPERVISOR HOT STRIP MILL Height 157.5 cm (5' 2 ) 07/03/2024 10:53 AM SUPERVISOR HOT STRIP MILL Body Mass Index 27.62 07/03/2024 10:53 AM SUPERVISOR HOT STRIP MILL Plan of Treatment Not on file Goals [...] safety. Medical Devices Implanted Type Area Wood Carver Device Identifier Shelf Expiration Date Model / Serial / Lot Davol Inc/C R Bard [id number] Bard [id number] Monofilament Soft Lightweight Low Profile Square - [id number] - [id number] Implanted:Qty: 1 on 05/11/2024 by Sabino Luke MD at [facility] Mesh N/A: Abdomen Davol Inc/C R Bard [id number] 11/06/2028 [id number] / [id number] / [id number] Insurance IDPA [facility] MEDICARE ADVANTAGE IDPA Advance Directives For more information, please contact: [phone] * Full Code (Latest Code Status on File) Date Activated Date Inactivated Comments 05/11/2024 8:24 PM 05/19/2024 3:53 PM Care Teams Php Magento Developer Relationship Specialty Start Date End Date Kathya Orona DO [address] [facility] [address] [address] PCP - General Family Medicine 05/12/24 Sabino Luke MD [address] [place] [address] Referring Physician General Surgery 12/06/23
--- OUTSIDE RECORDS SUMMARY | 2024-11-23 08:11 | XMS_ITS | Data Portability ---
Author Organization [facility] [place], Main Office Address [address] [place] [address] Assessment No assessment recorded. Plan of Treatment Reminders Order Date Submit Date Provider Last Modified By Organization Details Last Modified Time Details Appointments None recorded. Lab HbA1c (hemoglobin A1c), blood 2023 024 B[place] [facility], [address], [place], [address], 4 14:51:44 hemoglobin A1C, fingerstick [address], [place], [address], 3 11:56:57 hemoglobin A1C, fingerstick [address], [place], [address], 3 12:50:52 Referral medication coordinator & immunologis t referral 2022 023 [email or web address] [facility], [address] [place], [address], 3 11:49:08 general surgeon referral 2022 023 [place], [address] [address], [address], [place], [address], 3 11:41:03 Procedures None recorded. Surgeries None recorded. Imaging XR, lumbosacral spine, 2 or 3 view 2022 023 [facility] (Imaging), [address], [place], [address], 3 07:23:32 Medication Orders metformin ER 500 mg 24 hr tablet,exte nded release (gastric retention) 2022 023 [id number] [facility], [address] [facility], [place], [address], 3 10:42:15 Januvia 100 mg tablet 2022 023 [email or web address] [facility], [address] [facility], [place], [address], 3 17:01:13 metformin ER 500 mg 24 hr tablet,exte nded release (gastric retention) 2022 023 [email or web address] [facility] [address] [facility], [address] [facility], [place], [address], 3 10:42:15 cyclobenzap rine 10 mg tablet 2022 023 YEFRI [facility], [address] [facility], [place], [address], 3 15:13:53 Patient TargetsNo targets recorded. Patient Instructions Encounter Date Encounter Id Patient Instructions Last Modified By Organization Details Last Modified Time 07/17/2023 [id number] reviewed diet [id number] Not availabl e 07/28/2023 09:50:07 Reason for Referral General Surgeon Referral for Ventral incisional hernia Referring Physician: Rosibel Muse Family Medicine, Encounter Date: 12/10/2022 [employer] Supervisor Ref erral for Chronic urticaria Referring Physician: Rosibel Muse [facility], Encounter Date: 03/19/2023 Results Created Date Observation Date Name Description Value Unit Range Abnormal Flag Note LastModifiedBy Organization Detail LastModifiedTime 04/01/2004/01/2023 hemog lobin A1C, skip rsluciano k HgbA1C 14 Not Available [address], [place], [address], 04/01/2023 12:27:07 07/17/20 23 07/17/2023 hemog lobin A1C, skip noriega k HgbA1C 7.3% Not Available [address], [place], [address], 07/17/2023 11:45:37 12/12/19 23 12/10/2022 XR, lumbo sacra l spine , 2 or 3 view No observ ation record ed. [address] [address], [place], [address], 12/11/2022 10:23:16 12/16/19 23 12/15/2022 MRI, lumba r spine , w/o contr ast No observ ation record ed. [address] [address], [place], [address], 12/17/2022 09:06:14 12/20/19 23 12/18/2022 CT, abdom en + pelvi s, w/o contr ast No observ ation record ed. [address] [address], [place], [address], 12/19/2022 09:06:54 02/09/20 23 02/08/2023 imagi ng/di agnos tic resul t No observ ation record ed. [address] [address], [place], [address], 02/11/2023 08:33:36 05/10/20 23 05/10/2023 CT, abdom en + pelvi s, w/ contr ast No observ ation record ed. [address] [address], [place], [address], 05/14/2023 09:26:03 05/28/20 23 05/28/2023 PET, skull base to mid-t high No observ ation record ed. [address] [address], [place], [address], 05/29/2023 12:47:13 07/23/20 23 07/23/2023 MRI, abdom en, w/o contr ast No observ ation record ed. [address] [address], [place], [address], 08/21/2023 16:04:02 08/19/19 24 08/19/2023 CT, abdom en + pelvi s, w/ contr ast No observ ation record ed. [address] [address], [place], [address], 08/21/2023 16:04:03 09/06/19 24 09/06/2023 MRI, brain + brain stem, w/wo contr ast No observ ation record ed. [address] [address], [place], [address], 09/10/2023 12:14:57 11/19/19 24 11/19/2023 PET, brain scan, metab olic evalu ation No observ ation record ed. [address] [address], [place], [address], 11/21/2023 10:45:08 Result Notes None recorded. Problems Name Problem SNOMED Code Status Onset Date Resolution Date Notes Provider Name and Address Organization Details Recorded Time Acute sinusitis 47294650 Active Not Available [facility] 3 16:21:40 Anxiety disorder 943230929 Active Not Available [facility] 3 16:21:40 Allergic contact dermatitis 137905986 Active Not Available [facility] 3 16:21:40 Eruption 984345520 Active Not Available [facility] 3 16:21:40 Low back pain 252221354 Active Not Available [facility] 3 16:21:40 Numbness of lower limb 214291625 Active Not Available [facility] 3 16:21:40 Depressive disorder 57163443 Active Not Available [facility] 3 16:21:40 Arthritis 7478986 Active Not Available [facility] 3 16:21:40 Hypertensive disorder 24570056 Active Not Available [facility] 3 16:21:40 Neuropathy 300883089 Active Not Available [facility] 3 16:21:40 Anxiety 93786069 Active Not Available [facility] 3 16:21:40 Hyperlipidemi a 37263033 Active Not Available [facility] 3 16:21:41 Allergic rhinitis 82322317 Active Not Available [facility] 3 16:21:41 Diarrhea 43753094 Active 2021 Not Available [facility] 3 16:21:41 Costal chondritis 75186395 Active 2016 Not Available [facility] 3 16:21:41 Spinal stenosis in cervical region 11043490 Active Not Available [facility] 3 16:21:41 Edema of lower extremity 953303595 Active 2022 Not Available [facility] 3 16:21:40 Ventral incisional hernia 992645777 Active 2022 Not Available [facility] 3 16:21:40 Spinal stenosis of lumbar region 34193030 Active 2022 Not Available [facility] 3 16:21:40 Umbilical hernia 242375168 Active 2022 Not Available [facility] 3 16:21:40 Chronic urticaria 91145062 Active 2022 Not Available [facility] 3 16:21:41 Uncontrolled type 2 diabetes mellitus 528955430 Active 2022 Not Available [facility] 3 16:21:40 Essential hypertension 21067934 Active 2022 Not Available [facility] 3 16:21:41 COVID-19 299080546 Active 2022 Nancy Ashford MD [address] [facility] [address], [place], [address] , [facility] [employer] [facility] [place] 3 11:37:11 Type 2 diabetes mellitus 41229625 Active 2023 TRAVIS Samano [address], [facility] [address], [place], [address] , [employer] [facility] [place] 4 11:23:31 Notes:Some problems listed i n Documents: #[id number], #[id number] could not be added to this patient's chart. Please review these documents and add these problems to the patient's chart manually as needed. Problem Notes None recorded. Procedures Surgical History None recorded. Imaging Results Imaging Date Name Status LastModified by Organiz ation Details LastModified Time 12/10/2022 XR, lumbosacral spine, 2 or 3 view [address], [address], 12/11/2022 10:23:16 12/15/2022 MRI, lumbar spine, w/o contrast completed [address], [address], 12/17/2022 09:06:14 12/18/2022 CT, abdomen + pelvis, w/o contrast completed [address], [address], 12/19/2022 09:06:54 02/08/2023 imaging/diagnos tic result completed [address], [address], 02/11/2023 08:33:36 05/10/2023 CT, abdomen + pelvis, w/ contrast completed [address], [address], 05/14/2023 09:26:03 05/28/2023 PET, skull base to mid-thigh completed [address], [address], 05/29/2023 12:47:13 07/23/2023 MRI, abdomen, w/o contrast completed [address], [address], 08/21/2023 16:04:02 08/19/2023 CT, abdomen + pelvis, w/ contrast completed [address], [address], 08/21/2023 16:04:03 09/06/2023 MRI, brain + brain stem, w/wo contrast completed [address], [address], 09/10/2023 12:14:57 11/19/2023 PET, brain scan, metabolic evaluation completed [address], [address], 11/21/2023 10:45:08 Procedure Notes None recorded. Medical Equipment None Reported. Allergies Allergen ID Allergen Name Allergen Category Reaction Reaction Severity Criticality Documentation Date Start Date Code Code System Note Provider Name and Address Organization Details Recorded Time 56078 Substance with sulfonami de structure and antibacte rial mechanism of action (substanc e) medicatio n vasculiti s moderate Not available 10/10/2022 83433 8003 SNOMED Not Available [facility] 3 08:53:14 73487 Product containin g penicilli n (product) medicatio n Not available Not available Not available 10/10/2022 51026 8001 SNOMED Not Available [facility] 3 08:53:14 97145 erythromy rae medicatio n Not available Not available Not available 10/10/2022 4053 RxNorm Not Available [facility] 3 08:53:14 33656 amoxicill in medicatio n Not available Not [...] 80 mg/mL suspensio n for injection active [facility]#[id number] Not Available Not Available Not Available [...] Updated DateTime 3 157.48 cm 30.4 kg/m2 96060.3 3 g 97.2 [degF] 112 /min 98 % 98 % 160 mm[Hg] 70 mm[Hg] VERONICA Ro [place] [employer] [facility] [employer] [facility] 3 14:52:52 Date Recorded Body height Body mass index (BMI) Body weight Body temperature Heart rate Oxygen saturation Oxygen saturation in Arterial blood by Pulse oximetry Systolic blood pressure Diastolic blood pressure Provider Name and Address Organization Details Last Updated DateTime 3 157.48 cm 29.8 kg/m2 28032.5 6 g 98.1 [degF] 69 /min 97 % 97 % 140 mm[Hg] 86 mm[Hg] VERONICA Ro [employer] [facility] [employer] [facility] 3 16:18:55 Date Recorded Body height Body mass index (BMI) Body weight Body temperature Heart rate Oxygen saturation Oxygen saturation in Arterial blood by Pulse oximetry Systolic blood pressure Diastolic blood pressure Provider Name and Address Organization Details Last Updated DateTime 3 157.48 cm 30.2 kg/m2 83128.7 4 g 97.5 [degF] 90 /min 97 % 97 % 110 mm[Hg] 72 mm[Hg] Kayleigh ayon CMA [place] [employer] [facility] [place] 3 12:12:37 Date Recorded Body height Body mass index (BMI) Body weight Body temperature Heart rate Oxygen saturation Oxygen saturation in Arterial blood by Pulse oximetry Respiratory rate Systolic blood pressure Diastolic blood pressure Provider Name and Address Organization Details Last Updated DateTime 3 157.48 cm 29.3 kg/m2 31097.7 8 g 97.6 [degF] 89 /min 98 % 98 % 16 /min 136 mm[Hg] 84 mm[Hg] Merna Hernandez RN [facility] [employer] [facility] 3 11:30:35 Date Recorded Body height Body mass index (BMI) Body weight Respiratory rate Body temperature Heart rate Oxygen saturation Oxygen saturation in Arterial blood by Pulse oximetry Systolic blood pressure Diastolic blood pressure Provider Name and Address Organization Details Last Updated DateTime 4 157.48 cm 28.3 kg/m2 11375.8 2 g 16 /min 97.3 [degF] 83.99 /min 98 % 98 % 124 mm[Hg] 86 mm[Hg] Merna Hernandez RN [facility] [employer] [facility] 4 11:14:22 Social History None recorded. Functional Status None recorded. Mental Status None recorded. Family History Nothing Reported. Medical History No medical history recorded. Gynecological HistoryNo gynecological history recorded. Obstetrics History GPAL:G 0 P 0 0 0 0 Immunizations Vaccine Type Date Status Note Provider Nam e and Address Organization Details Recorded Time Influenza, split virus, quadrivalent, PF 05/28/2018 completed Not Available [facility] 3 08:53:10 Influenza, split virus, quadrivalent, PF 06/25/2017 completed Not Available [facility] 3 08:53:10 Past Encounters Encounter ID Performer Location Encounter Start Date Encounter Closed Date Diagnosis/Indication Diagnosis SNOMED-CT Code Diagnosis ICD10 Code Diagnosis Note [id number] [facility] [place] [address] [place] [address] 01/03/2021 00:00:00 01/03/2021 20:10:24 [id number] [facility] [place] [address] [place] [address] [place] [address] 04/07/2021 00:00:00 04/08/2021 10:18:03 [id number] [facility] [place] [address] [place] [address] y , [place] [address] 06/08/2021 00:00:00 06/08/2021 13:20:50 [id number] [facility] [place] [address] [place] [address] [place] [address] 11/02/2021 00:00:00 11/02/2021 19:44:37 [id number] [facility] [place] [address] [place] [address] [place] [address] 11/16/2021 00:00:00 11/16/2021 21:32:45 [id number] Rosibel Muse MD [facility] [place] [address] [place] [address] [place] [address] 12/10/2022 14:41:31 12/10/2022 15:20:19 Edema of lower extremity 189966343 R60.0 Compressio n stockings. elevate legs. Watch salt in diet. Low back pain 039132617 M54.50 Ventral in cisional hernia 165036144 K43.2 [id number] Rosibel Muse MD [facility] [place] [address] [place] [address] [place] [address] 03/19/2023 16:12:31 03/19/2023 16:49:01 Chronic urticaria 09816009 L50.8 Use zyrtec. Will send to medication coordinator [id number] Rosibel Muse MD [facility] [place] [address] [place] [address] [place] [address] 04/01/2023 12:03:23 04/01/2023 12:38:06 Uncontrolled type 2 diabetes mellitus 609676966 E11.65 A1C is >14%. New onset DM2. Will start metformin Will f/u in 3 months. Needs to watch carbs in diet and also pamphlets given out for DM. [id number] TRAVIS Samano [facility] [place] [address] [facility] [place] [address] 07/17/2023 11:25:10 07/17/2023 12:00:58 Uncontrolled type 2 diabetes mellitus 608306342 E11.65 [id number] TRAVIS Samano [facility] [place] [address] [facility] [place] [address] 10/16/2023 11:06:30 10/16/2023 11:28:23 Type 2 diabetes mellitus 36959507 E11.9 Allergic rhinitis 883197 04 J30.9 Anxiety 26858166 F41.9 Arthritis 2444416 M19.90 Depressive disorder 3548 9007 F32.A Essential hypertension 43380624 I10 Hyperlipidemia 52625772 E78.5 Low back pain 400535698 M54.50 Neuropathy 430676793 G62 .9 Health Concerns Section Related Observation LastModified by Organization Detai ls LastModified Time None Recorded Concern Status LastModified by Organization Details LastModified Time None Recorded Advance Directives Directive None Recorded Payers Encounter Date Sequence Insurance Name Policy Number Policy Mcrae Covered Member ID Mcrae Member ID Guarantor Name 12/10/2022 1 [facility] (MEDICARE REPLACEMENT/A DVANTAGE - HMO) [id number] January White [id number] January White 12/10/2022 2 [place] [facility] Krissy White [id number] January White 03/19/2023 1 [facility] (MEDICARE REPLACEMENT/A DVANTAGE - HMO) [id number] January White [id number] January White 03/19/2023 2 [place] [facility] Krissy White [id number] January White 04/01/2023 1 [facility] (MEDICARE REPLACEMENT/A DVANTAGE - HMO) [id number] January White [id number] January White 04/01/2023 2 [place] [facility] Krissy White [id number] January White 07/17/2023 1 [facility] (MEDICARE REPLACEMENT/A DVANTAGE - HMO) [id number] Krissy Oneal [id number] Krissy Oneal 07/17/2023 2 [place] [facility] Krissy White [id number] Krissy Oneal 10/16/2023 1 [facility] (MEDICARE REPLACEMENT/A DVANTAGE - HMO) [id number] Krissy White [id number] Krissy Oneal 10/16/2023 2 [place] [facility] Krissy Oneal [id number] Krissy Oneal Notes Date Note Type Note [...] Muse MD [address], [place], [address], [employer] 12/11/2022 06:23:51 03/19/2023 text/html Is breaking out with hives going on since 02/01. It comes and goes. The bumps do itch. Using benadryl and cortisone cream. Stopped losartan Has been taking 2 amlodipine. Went to ER and was given prednisone and taking benadryl. It makes her drowsy. Rosibel Muse MD [address], [place], [address], [employer] 03/19/2023 20:14:31 04/01/2023 text/html Here today for [...] lot. Rosibel Muse MD [address] [address], [place], [address], [employer] [facility] [place] 04/01/2023 20:57:05 07/17/2023 text/html here for f/u TRAVIS Samano [address] [address], [place], [address], [employer] 07/28/2023 09:50:11 10/16/2023 text/html no changes TRAVIS Samano [address] [address], [place], [address], [employer] [facility] 10/26/2023 21:20:45 OBGyn Episode No OBEpisode recorded.
--- OUTSIDE RECORDS SUMMARY | 2024-11-23 08:11 | XMS_ITS ---
Author Organization [facility] Address [address] [place] [address] Care Team Providers Care Cloth Dye Range Operator Name Role Phone Sabino Luke MD Unavailable Kathya Orona DO Primary Care Provider [phone] Active Problems Problem Noted Date Diagnosed Date [...]
--- OUTSIDE RECORDS SUMMARY | 2024-11-23 08:11 | XMS_ITS | Clinical Summary ---
Author Organization [facility] Address [address] [place] [address] Care Team Providers Care Arcade Games Mechanic Name Role Phone Sabino Luke MD Unavailable [phone] Kathya Orona DO Primary Care Provider [phone] Allergies Active Allergy Reactions Criticality Noted Date [...] 1 tablet (10 mg total) by mouth senior solutions engineer before breakfast 30 tablet 4 Active fluticasone [...] 1 tablet (10 mg total) by mouth senior solutions engineer before breakfast 30 tablet 4 Active cyclobenzaprine (FLEXERIL) 10 mg tabletIndicatio ns:Muscle Spasm Take 1 tablet (10 mg total) by mouth 2 (two) times a day as needed for muscle spasms 30 tablet 4 Active hydroCHLOROthia zide (HYDRODIURIL) 25 mg tabletIndicatio ns:hypertension Take 1 tablet (25 mg total) by mouth senior solutions engineer before breakfast 30 tablet 4 Active sertraline [...] on file Legal Sex Female 8:15 AM TOP LIFT COMPRESSER Gender Identity Not on file Sexual Orientation Not on file Occupation Industry Job Start Date Job End Date Disability Not on file Not on file Not on file Obstetrics History Last Filed Vital Signs Vital Sign Reading Time Taken Comments Blood Pressure 130/86 07/03/2024 10:53 AM TOP LIFT COMPRESSER Pulse 85 07/03/2024 10:53 AM TOP LIFT COMPRESSER Temperature 36.6 C (97.9 F) 07/03/2024 10:53 AM TOP LIFT COMPRESSER Respiratory Rate 16 07/03/2024 10:53 AM TOP LIFT COMPRESSER Oxygen Saturation 97% 07/03/2024 10:53 AM TOP LIFT COMPRESSER Inhaled Oxygen Concentration - - Weight 68.5 kg (151 lb) 07/03/2024 10:53 AM TOP LIFT COMPRESSER Height 157.5 cm (5' 2 ) 07/03/2024 10:53 AM TOP LIFT COMPRESSER Body Mass Index 27.62 07/03/2024 10:53 AM TOP LIFT COMPRESSER Plan of Treatment Health Maintenance Due Date [...] on stairs Contact your local community or [facility] for information on exercise, fall prevention programs, or options for improving home safety. Medical Devices Implanted Type Area Home School Teacher Device Identifier Shelf Expiration Date Model / Serial / Lot [employer]/C R Bard [id number] Monofilament Soft Lightweight Low Profile Square - [id number] - [id number] Implanted:Qty: 1 on 05/11/2024 by Sabino Luke MD at [facility] Mesh N/A: Abdomen [employer] Bard [id number] 11/06/2028 [id number] / [id number] / [id number] Insurance [facility] [place] [address] [facility] MEDICARE ADVANTAGE IDPA [facility] MEDICARE ADVANTAGE IDPA Advance Directives For more information, please contact: [phone] * Full Code (Latest Code Status on File) Date Activated Date Inactivated Comments 05/11/2024 8:24 PM 05/19/2024 3:53 PM Care Teams Arcade Games Mechanic Relationship Specialty Start Date End Date Kathya Orona DO [facility] [address] [place] [address] PCP - General Family Medicine 05/12/24 Sabino [address] MD [address] [place] [address] Referring Physician General Surgery 12/06/23
== END 2024-11-23 08:01 | disposition home or self-care (01) ==
PROVIDERS: PCP Nurse Practitioner; Visit Provider Internal Medicine Hematology & Oncology
DX: C24.1 Malignant neoplasm of ampulla of Vater (principal); R91.8 Other nonspecific abnormal finding of lung field
CPT/HCPCS: 36591; 71260; 74177; 76775; Q9967

== ENCOUNTER 2024-11-23 08:08 | Outpatient (CLI) | payer MEDICARE, MEDICAID, SELFPAY ==
[2024-11-23 09:29] LABS: Basophils Percent Auto 0.1 % (0.2-1.2); Hematocrit 40.2 % (37.0-47.0); Hemoglobin 12.7 g/dL (12.0-15.0); Immature Granulocyte Absolute 0.05 K/mm3 (0.00-0.031); Immature Granulocyte Percent A 0.7 % (0-0.5); Lymphocytes Absolute Auto 0.95 K/mm3 (0.9-3.2); Lymphocytes Percent Auto 12.6 % (18.3-44.2); Mean Corpuscular HGB Conc 31.6 g/dl (32-36); Mean Corpuscular Hemoglobin 27.3 pg (26-34); Mean Corpuscular Volume 86.3 fl (80-100); Mean Platelet Volume 9.2 fl (7.4-10.4); Monocytes Absolute Auto 0.1 K/mm3 (0.1-0.6); Monocytes Percent Auto 1.3 % (2.6-8.5); Neutrophils Absolute Auto 6.4 K/mm3 (1.3-6.7); Neutrophils Percent Auto 85.3 % (45.5-73.1); Platelet Count Result 255 k/mm3 (150-375); Red Blood Count 4.66 M/mm3 (4.2-5.4); Red Cell Distribution Width 14.4 % (11.5-14.5); White Blood Count 7.5 K/mm3 (4.5-10.0)
[2024-11-23 09:40] LABS: Cholesterol 166 mg/dL (0-200); HDL Direct 60 mg/dL; Triglycerides 71 mg/dL (<150)
[2024-11-23 09:41] LABS: Alanine Aminotransferase 25 U/L (6-35); Alkaline Phosphatase 75 U/L (38-126); Anion Gap 14 mmol/L (4-12); Aspartate Amino Transferase 24 U/L (14-36); Bilirubin,Total 0.2 mg/dL (0.2-1.3); Blood Urea Nitrogen 13 mg/dL (7-17); Calcium 9.4 mg/dL (8.4-10.2); Carbon Dioxide 26 mmol/L (22-30); Chloride 101 mmol/L (98-107); Estimated Glomerular Filt Rate > 60; Glucose 172 mg/dL (65-110); Potassium 3.8 mmol/L (3.4-5.0); Sodium 141 mmol/L (137-145)
[2024-11-23 09:42] LABS: Anion Gap 15 mmol/L (4-12); Blood Urea Nitrogen 12 mg/dL (7-17); Calcium 9.5 mg/dL (8.4-10.2); Carbon Dioxide 24 mmol/L (22-30); Chloride 101 mmol/L (98-107); Estimated Glomerular Filt Rate > 60; Glucose 171 mg/dL (65-110); Phosphorus 2.3 mg/dL (2.5-4.5); Potassium 3.8 mmol/L (3.4-5.0); Sodium 140 mmol/L (137-145)
[2024-11-23 09:44] LABS: Creatinine Urine 198.5 mg/dL
[2024-11-23 09:45] LABS: Creatinine Urine 199.1 mg/dL; Total Protein Urine Random 86 mg/dL; Ur Ttl Prot Creatinine Ratio 0.43 mg/mg (0-0.20)
[2024-11-23 09:49] LABS: Complement C3 143 mg/dL (88-165)
[2024-11-23 09:51] LABS: LDL Cholesterol Direct 79 mg/dL
[2024-11-23 09:52] LABS: Hemoglobin A1C 5.9 % (<5.7)
[2024-11-23 10:29] LABS: MALB Creatinine Ratio 309.4 mg/g (0-30); Microalbumin Urine Random 614.2 mg/L (0-16.7)
[2024-11-24 07:28] LABS: Creatinine, Random Urine 183 mg/dL (20-275); Total Prot/Creat ratio mg/mg 0.546 (0.024-0.184); Total Protein/Creatinine Ratio 546 mg/g creat (24-184)
[2024-11-24 08:34] LABS: Protein, Total 7.7 g/dL (6.1-8.1)
[2024-11-25 02:34] LABS: CA 19-9 34 U/mL (<34)
[2024-11-25 08:30] LABS: Albumin 4.5 g/dL (3.8-4.8); Alpha 1 Globulin 0.3 g/dL (0.2-0.3); Alpha 2 Globulin 0.6 g/dL (0.5-0.9); Beta 1 Globulin 0.6 g/dL (0.4-0.6); Gamma Globulin 1.2 g/dL (0.8-1.7)
[2024-11-25 14:53] LABS: Anti Glomerular Basement Memb <1.0 AI
[2024-11-26 11:38] LABS: ANCA Screen NEGATIVE (NEGATIVE)
== END 2024-11-23 08:09 | disposition home or self-care (01) ==
PROVIDERS: Internal Medicine Hematology & Oncology; PCP Nurse Practitioner; Referring Provider Nurse Practitioner; Visit Provider Internal Medicine Nephrology
DX: R80.9 Proteinuria, unspecified (principal); E78.5 Hyperlipidemia, unspecified; E55.9 Vitamin D deficiency, unspecified; E11.9 Type 2 diabetes mellitus without complications; I10 Essential (primary) hypertension; R91.8 Other nonspecific abnormal finding of lung field; D64.9 Anemia, unspecified
CPT/HCPCS: 36415; 80053; 80061; 80069; 82043; 82306; 82570; 83036; 83520; 84155; 84156; 84165; 84166; 85025; 86036; 86038; 86039; 86160; 86225; 86301

== ENCOUNTER 2025-01-26 14:07 | Outpatient (CLI) | payer MEDICARE, MEDICAID, SELFPAY ==
--- NOTE | 2025-01-26 14:24 | ECHO_ITS ---
Patient Info Name: Krissy Jaquez White Age: 69 years : 1955 Gender: Female Ht: 62 in Wt: 155 lbs BSA: 1.78 m2 HR: 90 bpm BP: 148 / 121 mmHg Heart Rhythm: Sinus Rhythm Technical Quality: Fair Exam Date: 01/26/2025 2:29 PM Patient Status: O Admit Date: 01/26/2025 Exam Type: CA echo doppler color flow Complete two-dimensional, color flow and Doppler transthoracic echocardiogram is performed. Paper Cup Handle Machine Operator: Camille Cano Attending Provider: Rickie Haynes Summary 1. Complete two-dimensional, color flow and Doppler transthoracic echocardiogram is performed. 2. Left ventricular chamber dimension is normal. 3. Left ventricular systolic function is normal, estimated at 60-65. 4. The left ventricular diastolic function is grade I diastolic dysfunction. 5. E/e' 9 is minimally elevated. 6. There is trace tricuspid valve regurgitation. 7. No pulmonary hypertension, estimated pulmonary arterial systolic pressure is 38 mmHg. Left Ventricle E/e' 9 is minimally elevated. Left ventricular chamber dimension is normal. Left ventricular systolic function is normal, estimated at 60-65. The left ventricular diastolic function is grade I diastolic dysfunction. Right Ventricle Right ventricular chamber dimension is normal. Right ventricular systolic function is normal and with normal TAPSE 1.8 cm. Left Atria Left atrial chamber dimension is normal. Right Atria Right atrial chamber dimension is normal. Aortic Valve The aortic valve is trileaflet. There is no aortic valve stenosis. There is no aortic valve regurgitation. Pulmonic Valve There is no pulmonic regurgitation. Mitral Valve There is no mitral valve stenosis. There is no mitral valve regurgitation. Tricuspid Valve There is trace tricuspid valve regurgitation. No pulmonary hypertension, estimated pulmonary arterial systolic pressure is 38 mmHg. Pericardium/Pleural There is no pericardial effusion. Inferior Vena Cava Normal inferior vena cava with >50% collapse upon inspiration consistent with normal right atrial pressure, 5 mmHg. Aorta The aortic root size at the sinus of Valsalva is normal. Left Ventricular Outflow Tract Name Value Normal LVOT 2D LVOT Diameter 2.0 cm LVOT Doppler LVOT Peak Velocity 89 cm/s LVOT Peak Gradient 3 mmHg LVOT Mean Gradient 2 mmHg LVOT VTI 15 cm LVOT VTI/AV VTI Ratio 0.7 LVOT Stroke Volume 45 ml LVOT CO 3.8 l/min LVOT CI 2.1 l/min/m2 Pulmonic Valve Name Value Normal RVOT Doppler RVOT Peak Velocity 80 cm/s RVOT Peak Gradient 3 mmHg PV Doppler PV Peak Velocity 109 cm/s PV Peak Gradient 5 mmHg Mitral Valve Name Value Normal MV Diastolic Function MV E Peak Velocity 52 cm/s MV A Peak Velocity 98 cm/s MV E/A 0.5 MV Decel Time (PW) 209 ms MV Annular TDI MV E/e' (Septal) 14.1 MV E/e' (Lateral) 7.0 MV E/e' (Average) 10.6 Tricuspid Valve Name Value Normal TV Regurgitation Doppler TR Peak Velocity 288 cm/s TR Peak Gradient 33 mmHg Estimated PAP/RSVP RA Pressure 5 mmHg <=5 PA Systolic Pressure 38 mmHg <36 RV Systolic Pressure 38 mmHg <36 TV Annular TDI TV Lateral Nicolle s' Velocity 13.0 cm/s >=9.5 Aorta Name Value Normal Ascending Aorta Ao Root Diameter (MM) 2.9 cm Ao Root Diam Index (MM) 1.7 cm/m2 Aortic Valve Name Value Normal AV Doppler AV Peak Velocity 149 cm/s AV Peak Gradient 9 mmHg AV Mean Gradient 4 mmHg AV VTI 21 cm AV Area (Cont Eq VTI) 2.1 cm2 >=3.0 AV Area (Cont Eq Will) 1.8 cm2 AV DI (Will) 0.60 AV Regurgitation 2D LVOT Area 3.0 cm2 Ventricles Name Value Normal LV Dimensions 2D/MM IVS Diastolic Thickness (2D) 1.1 cm 0.6-1.0 LVID Diastole (2D) 3.9 cm 3.8-5.2 LVIW Diastolic Thickness (2D) 0.9 cm 0.6-0.9 LVID Systole (2D) 2.5 cm 2.2-3.5 LVOT Diameter 2.0 cm LV Mass (2D Cubed) 122.52 g 67.00-162.00 LV Mass Index (2D Cubed) 69 g/m2 43-95 Relative Wall Thickness (2D) 0.48 <=0.42 LV Fractional Shortening/Ejection Fraction 2D/MM LV Fractional Shortening (2D) 35 % 27-45 LV EF (2D Teichjasbirz) 65 % LV Diastolic Volume (4C MOD) 30 ml LV EF (4C MOD) 69 % LV Diastolic Volume (2C MOD) 27 ml LV EF (2C MOD) 70 % LV Diastolic Volume (BP MOD) 30 ml 46-106 LV Diastolic Volume Index (BP MOD) 17 ml/m2 29-61 LV Systolic Volume (BP MOD) 9 ml 14-42 LV Systolic Volume Index (BP MOD) 5 ml/m2 8-24 LV EF (BP MOD) 70 % 54-74 LV Diastolic Length (4C) 6.6 cm LV Systolic Length (4C) 5.2 cm LV Stroke Volume (4C MOD) 21 ml Atria Name Value Normal LA Dimensions LA Dimension (MM) 2.7 cm 2.7-3.8 LA Volume (4C A-L) 25 ml LA Volume (BP A-L) 24 ml RA Dimensions RA Area (4C) 9.5 cm2 <=18.0 Report Signatures
--- OUTSIDE RECORDS SUMMARY | 2025-01-26 14:56 | XMS_ITS | Continuity of Care Document ---
Author Organization [facility] Address [address] [place] [address] Phone Care Team Providers Care Exercise Manager Name Role Phone Markus De La Fuente MD Unavailable Unavailable Advance Directives Directive Yes / No Effective Date File Name No Information Encounters Encounter Description Practice Location Reason(s) For Visit Diagnoses Date Provider Providers Copied on Encounter [address], [address], [place], [place], [id number], [place] tel:[phone] [facility] CERVICAL DISC DISPLACMNTOTH ADV EFF MED/BIO SUB Leisa Aparicio. [address] , [place], [place], [id number], [place]. tel:[phone] Family History Family Member Type Diagnosis Age At Onset No Information Payers Payer name Insurance type Covered alliance party ID Authoriza tion(s) No Information Social [...]
--- OUTSIDE RECORDS SUMMARY | 2025-01-26 14:57 | XMS_ITS | Data Portability ---
Author Organization [facility] [employer], Main Office Address [address] [place] [address] Assessment No assessment recorded. Plan of Treatment Reminders Order Date Submit Date Provider Last Modified By Organization Details Last Modified Time Details Appointments None recorded. Lab HbA1c (hemoglobin A1c), blood 2023 024 [place] [facility], [address], [place], [address], 4 14:51:44 hemoglobin A1C, fingerstick [address], [place], [address], 3 11:56:57 hemoglobin A1C, fingerstick [address], [place], [address], 3 12:50:52 Referral retail business development manager & immunologis t referral 2022 023 [email or web address] [facility], [address] [place], [address], 3 11:49:08 general surgeon referral 2022 023 [email or web address] [place], [address] [address], [place], [address], 3 11:41:03 Procedures None recorded. Surgeries None recorded. Imaging XR, lumbosacral spine, 2 or 3 view 2022 023 [facility] (Im[facility]), [address], [place], [address], 3 07:23:32 Medication Orders metformin ER 500 mg 24 hr tablet,exte nded release (gastric retention) 2022 023 [id number] [facility], [address] [facility], [place], [address], 3 10:42:15 Januvia 100 mg tablet 2022 023 [email or web address] [facility], [address] [facility], [place], [address], 3 17:01:13 metformin ER 500 mg 24 hr tablet,exte nded release (gastric retention) 2022 023 [id number] [facility], [address] [facility], [place], [address], 3 10:42:15 cyclobenzap rine 10 mg tablet 2022 023 [email or web address] [facility], [address] [facility], [place], [address], 3 15:13:53 Patient TargetsNo targets recorded. Patient Instructions Encounter Date Encounter Id Patient Instructions Last Modified By Organization Details Last Modified Time 07/17/2023 [id number] reviewed diet [id number] Not availabl e 07/28/2023 09:50:07 Reason for Referral General Surgeon Referral for Ventral incisional hernia Referring Physician: [facility], Encounter Date: 12/10/2022 Cycle Director & Cupola Operator Insulation Ref erral for Chronic urticaria Referring Physician: [facility], Encounter Date: 03/19/2023 Results Created Date Observation Date Name Description Value Unit Range Abnormal Flag Note LastModifiedBy Organization Detail LastModifiedTime 04/01/2004/01/2023 hemog lobin A1C, skip rsluciano k HgbA1C 14 Not Available [address], [place], [address], 04/01/2023 12:27:07 07/17/20 23 07/17/2023 hemog lobin A1C, skip noriega k HgbA1C 7.3% Not Available [address], [place], [address], 07/17/2023 11:45:37 12/12/19 23 12/10/2022 XR, lumbo sacra l spine , 2 or 3 view No observ ation record ed. [address] [address], [place], [address], 12/11/2022 10:23:16 12/16/19 23 12/15/2022 MRI, lumba r spine , w/o contr ast No observ ation record ed. [address] [address], [place], [address], 12/17/2022 09:06:14 12/20/19 23 12/18/2022 CT, abdom en + pelvi s, w/o contr ast No observ ation record ed. [address] [address], [place], [address], 12/19/2022 09:06:54 02/09/20 23 02/08/2023 imagi ng/di agnos tic resul t No observ ation record ed. [address] [address], [place], [address], 02/11/2023 08:33:36 05/10/20 23 05/10/2023 CT, abdom en + pelvi s, w/ contr ast No observ ation record ed. [address] [address], [place], [address], 05/14/2023 09:26:03 05/28/20 23 05/28/2023 PET, skull base to mid-t high No observ ation record ed. [address] [address], [place], [address], 05/29/2023 12:47:13 07/23/20 23 07/23/2023 MRI, abdom en, w/o contr ast No observ ation record ed. [address] [address], [place], [address], 08/21/2023 16:04:02 08/19/19 24 08/19/2023 CT, abdom en + pelvi s, w/ contr ast No observ ation record ed. [address] [address], [place], [address], 08/21/2023 16:04:03 09/06/19 24 09/06/2023 MRI, brain + brain stem, w/wo contr ast No observ ation record ed. [address] [address], [place], [address], 09/10/2023 12:14:57 11/19/19 24 11/19/2023 PET, brain scan, metab olic evalu ation No observ ation record ed. [address] [address], [place], [address], 11/21/2023 10:45:08 Result Notes None recorded. Problems Name Problem SNOMED Code Status Onset Date Resolution Date Notes Provider Name and Address Organization Details Recorded Time Acute sinusitis 57514789 Active Not Available [facility] 3 16:21:40 Anxiety disorder 514053231 Active Not Available [facility] 3 16:21:40 Allergic contact dermatitis 696121728 Active Not Available [facility] 3 16:21:40 Eruption 286786722 Active Not Available [facility] 3 16:21:40 Low back pain 726941504 Active Not Available [facility] 3 16:21:40 Numbness of lower limb 867800003 Active Not Available [facility] 3 16:21:40 Depressive disorder 49010289 Active Not Available [facility] 3 16:21:40 Arthritis 8238376 Active Not Available [facility] 3 16:21:40 Hypertensive disorder 40809335 Active Not Available [facility] 3 16:21:40 Neuropathy 179022776 Active Not Available [facility] 3 16:21:40 Anxiety 64743498 Active Not Available [facility] 3 16:21:40 Hyperlipidemi a 15312784 Active Not Available [facility] 3 16:21:41 Allergic rhinitis 97854202 Active Not Available [facility] 3 16:21:41 Diarrhea 41803498 Active 2021 Not Available [facility] 3 16:21:41 Costal chondritis 63632238 Active 2016 Not Available [facility] 3 16:21:41 Spinal stenosis in cervical region 57675445 Active Not Available [facility] 3 16:21:41 Edema of lower extremity 021224547 Active 2022 Not Available [facility] 3 16:21:40 Ventral incisional hernia 080648760 Active 2022 Not Available [facility] 3 16:21:40 Spinal stenosis of lumbar region 00765312 Active 2022 Not Available [facility] 3 16:21:40 Umbilical hernia 184916676 Active 2022 Not Available [facility] 3 16:21:40 Chronic urticaria 03778770 Active 2022 Not Available [facility] 3 16:21:41 Uncontrolled type 2 diabetes mellitus 095200813 Active 2022 Not Available [facility] 3 16:21:40 Essential hypertension 21070947 Active 2022 Not Available [facility] 3 16:21:41 COVID-19 627254844 Active 2022 Nancy Ashford MD [address] [address], [place], [address] , [facility] [employer] [facility] [employer] 3 11:37:11 Type 2 diabetes mellitus 69427455 Active 2023 TRAVIS Samano [address] [facility], [facility] [address], [place], [address] , [facility] [employer] [facility] [employer] 4 11:23:31 Notes:Some problems listed i n Documents: #[id number], #[id number] could not be added to this patient's chart. Please review these documents and add these problems to the patient's chart manually as needed. Problem Notes None recorded. Medical Equipment None Reported. Allergies Allergen ID Allergen Name Allergen Category Reaction Reaction Severity Criticality Documentation Date Start Date Code Code System Note Provider Name and Address Organization Details Recorded Time Substance with sulfonami de structure and antibacte rial mechanism of action (substanc e) medicatio n vasculiti s moderate Not available 10/10/2022 99043 8003 SNOMED Not Available [facility] 3 08:53:14 44710 Product containin g penicilli n (product) medicatio n Not available Not available Not available 10/10/2022 54047 8001 SNOMED Not Available [facility] 3 08:53:14 27754 erythromy rae medicatio n Not available Not available Not available 10/10/2022 4053 RxNorm Not Available [facility] 3 08:53:14 82302 amoxicill in medicatio n Not available Not available Not available 10/10/2022 723 RxNorm Not Available [facility] 3 08:53:14 Medications Name Sig Start Date [...] tablet TAKE 1 TABLET BY MOUTH DAILY 04/253 completed Not Available Not Available Not Available [...] 80 mg/mL suspensio n for injection active [facility]#[id number] Not Available Not Available Not Available [...] Updated DateTime 4 157.48 cm 28.3 kg/m2 49597.8 2 g 16 /min 97.3 [degF] 83.99 /min 98 % 98 % 124 mm[Hg] 86 mm[Hg] Merna Hernandez RN [facility] [employer] [facility] 4 11:14:22 Date Recorded Body height Body mass index (BMI) Body weight Body temperature Heart rate Oxygen saturation Oxygen saturation in Arterial blood by Pulse oximetry Systolic blood pressure Diastolic blood pressure Provider Name and Address Organization Details Last Updated DateTime 3 157.48 cm 30.4 kg/m2 83485.3 3 g 97.2 [degF] 112 /min 98 % 98 % 160 mm[Hg] 70 mm[Hg] VERONICA Ro [facility] [employer] [facility] 3 14:52:52 Date Recorded Body height Body mass index (BMI) Body weight Body temperature Heart rate Oxygen saturation Oxygen saturation in Arterial blood by Pulse oximetry Systolic blood pressure Diastolic blood pressure Provider Name and Address Organization Details Last Updated DateTime 3 157.48 cm 29.8 kg/m2 91083.5 6 g 98.1 [degF] 69 /min 97 % 97 % 140 mm[Hg] 86 mm[Hg] VERONICA Ro [facility] [employer] [facility] 3 16:18:55 Date Recorded Body height Body mass index (BMI) Body weight Body temperature Heart rate Oxygen saturation Oxygen saturation in Arterial blood by Pulse oximetry Systolic blood pressure Diastolic blood pressure Provider Name and Address Organization Details Last Updated DateTime 3 157.48 cm 30.2 kg/m2 81355.7 4 g 97.5 [degF] 90 /min 97 % 97 % 110 mm[Hg] 72 mm[Hg] Kayleigh ayon CMA [place] [employer] 3 12:12:37 Date Recorded Body height Body mass index (BMI) Body weight Body temperature Heart rate Oxygen saturation Oxygen saturation in Arterial blood by Pulse oximetry Respiratory rate Systolic blood pressure Diastolic blood pressure Provider Name and Address Organization Details Last Updated DateTime 3 157.48 cm 29.3 kg/m2 84371.7 8 g 97.6 [degF] 89 /min 98 % 98 % 16 /min 136 mm[Hg] 84 mm[Hg] Merna Hernandez RN [place] [employer] [facility] [employer] 3 11:30:35 Social History None recorded. Functional Status None recorded. Mental Status None recorded. Family History Nothing Reported. Medical History No medical history recorded. Gynecological HistoryNo gynecological history recorded. Obstetrics History GPAL:G 0 P 0 0 0 0 Immunizations Vaccine Type Date Status Note Provider Nam e and Address Organization Details Recorded Time Influenza, split virus, quadrivalent, PF 05/28/2018 completed Not Available [facility] 3 08:53:10 Influenza, split virus, quadrivalent, PF 06/25/2017 completed Not Available [facility] 3 08:53:10 Past Encounters Encounter ID Performer Location Encounter Start Date Encounter Closed Date Diagnosis/Indication Diagnosis SNOMED-CT Code Diagnosis ICD10 Code Diagnosis Note [id number] Rosibel Muse MD [facility] [address] [place] [address] 01/03/2021 00:00:00 01/03/2021 20:10:24 [id number] Rosibel Msue MD [facility] [address] [place] [address] 04/07/2021 00:00:00 04/08/2021 10:18:03 [id number] Rosibel Muse MD [facility] [address] [place] [address] 06/08/2021 00:00:00 06/08/2021 13:20:50 [id number] Rosibel Muse MD [facility] [address] [place] [address] [place] [address] 11/02/2021 00:00:00 11/02/2021 19:44:37 [id number] Rosibel Muse MD [facility] [address] [place] [address] [place] [address] 11/16/2021 00:00:00 11/16/2021 21:32:45 [id number] Rosibel Muse MD [facility] [address] [place] [address] [place] [address] 12/10/2022 14:41:31 12/10/2022 15:20:19 Edema of lower extremity 737318773 R60.0 Compressio n stockings. elevate legs. Watch salt in diet. Low back pain 539698315 M54.50 Ventral in cisional hernia 433548853 K43.2 [id number] Rosibel Muse MD [facility] [address] [place] [address] [place] [address] 03/19/2023 16:12:31 03/19/2023 16:49:01 Chronic urticaria 71241558 L50.8 Use zyrtec. Will send to retail business development manager [id number] Rosibel Muse MD [facility] [address] [place] [address] [place] [address] 04/01/2023 12:03:23 04/01/2023 12:38:06 Uncontrolled type 2 diabetes mellitus 160303900 E11.65 A1C is >14%. New onset DM2. Will start metformin Will f/u in 3 months. Needs to watch carbs in diet and also pamphlets given out for DM. [id number] Rosibel Muse MD [facility] [address] [place] [address] [place] [address] 07/17/2023 11:25:10 07/17/2023 12:00:58 Uncontrolled type 2 diabetes mellitus 590069892 E11.65 [id number] Rosibel Muse MD [facility] [address] [place] [address] 10/16/2023 11:06:30 10/16/2023 11:28:23 Type 2 diabetes mellitus 32457118 E11.9 Allergic rhinitis 477568 04 J30.9 Anxiety 72188303 F41.9 Arthritis 5773932 M19.90 Depressive disorder 3548 9007 F32.A Essential hypertension 89065000 I10 Hyperlipidemia 35129753 E78.5 Low back pain 690788913 M54.50 Neuropathy 573444405 G62 .9 Health Concerns Section Related Observation LastModified by Organization Detai ls LastModified Time None Recorded Concern Status LastModified by Organization Details LastModified Time None Recorded Advance Directives Directive None Recorded Payers Insurance Date Sequence Insurance Name Policy Number Policy Mcrae Covered Member ID Mcrae Member ID Guarantor Name 10/16/2023 2 [place] [facility] [id number] [facility] 10/28/2023 1 [facility] (MEDICARE REPLACEMENT/A DVANTAGE - HMO) [id number] [facility] [id number] [facility] Notes Date Note Type Note Provider Name [...] placard for LBP. Rosibel Muse MD [address] [facility], [place], [address], [employer] 12/11/2022 06:23:51 03/19/2023 text/html Is breaking out with hives going on since 02/01. It comes and goes. The bumps do itch. Using benadryl and cortisone cream. Stopped losartan Has been taking 2 amlodipine. Went to ER and was given prednisone and taking benadryl. It makes her drowsy. Rosibel Muse MD [address], [place], [address], [employer] 03/19/2023 20:14:31 04/01/2023 text/html Here today for [...] lot. Rosibel Muse MD [address], [place], [address], [employer] 04/01/2023 20:57:05 07/17/2023 text/html here for f/u TRAVIS Samano [address], [place], [address], [employer] 07/28/2023 09:50:11 10/16/2023 text/html no changes TRAVIS Samano [address], [place], [address], [employer] 10/26/2023 21:20:45 OBGyn Episode No OBEpisode recorded.
--- OUTSIDE RECORDS SUMMARY | 2025-01-26 14:57 | XMS_ITS | Clinical Summary ---
Author Organization [facility] Address [address] [place] [address] Care Team Providers Care Assembler Crimper Name Role Phone Sabino Luke MD Unavailable [phone] Kathya Orona DO Primary Care Provider [phone] Allergies Active Allergy Reactions Criticality Noted Date [...] 1 tablet (10 mg total) by mouth field worker before breakfast 30 tablet 4 Active fluticasone [...] 1 tablet (10 mg total) by mouth field worker before breakfast 30 tablet 4 Active cyclobenzaprine (FLEXERIL) 10 mg tabletIndicatio ns:Muscle Spasm Take 1 tablet (10 mg total) by mouth 2 (two) times a day as needed for muscle spasms 30 tablet 4 Active hydroCHLOROthia zide (HYDRODIURIL) 25 mg tabletIndicatio ns:hypertension Take 1 tablet (25 mg total) by mouth field worker before breakfast 30 tablet 4 Active sertraline [...] Encounters Date Type Department Care Team Description 12/18/2024 [facility] ([facility] - [facility] Minimally Invasive Surgery [address] [facility] 12th Floor, [place] [address] Nataliya Su from Last 3 Months Immunizations Immunization Administration Dates Next Due Influenza, [...] on file Legal Sex Female 8:15 AM FIBERGLASS GRINDER Gender Identity Not on file Sexual Orientation Not on file Occupation Industry Job Start Date Job End Date Disability Not on file Not on file Not on file Obstetrics History Last Filed Vital Signs Vital Sign Reading Time Taken Comments Blood Pressure 130/86 07/03/2024 10:53 AM FIBERGLASS GRINDER Pulse 85 07/03/2024 10:53 AM FIBERGLASS GRINDER Temperature 36.6 C (97.9 F) 07/03/2024 10:53 AM FIBERGLASS GRINDER Respiratory Rate 16 07/03/2024 10:53 AM FIBERGLASS GRINDER Oxygen Saturation 97% 07/03/2024 10:53 AM FIBERGLASS GRINDER Inhaled Oxygen Concentration - - Weight 68.5 kg (151 lb) 07/03/2024 10:53 AM FIBERGLASS GRINDER Height 157.5 cm (5' 2) 07/03/2024 10:53 AM FIBERGLASS GRINDER Body Mass Index 27.62 07/03/2024 10:53 AM FIBERGLASS GRINDER Plan of Treatment Health Maintenance Due Date [...] on stairs Contact your local community or [facility] for information on exercise, fall prevention programs, or options for improving home safety. Medical Devices Implanted Type Area Senior Web Architect Device Identifier Shelf Expiration Date Model / Serial / Lot Davol Inc/C R Bard [id number] Bard [id number] Monofilament Soft Lightweight Low Profile Square - [id number] - [id number] Implanted:Qty: 1 on 05/11/2024 by Sabino Luke MD at [facility] Mesh N/A: Abdomen Davol Inc/C R Bard [id number] 11/06/2028 [id number] / [id number] / [id number] Insurance [facility] MEDICARE ADVANTAGE [facility] MEDICARE ADVANTAGE IDPA [facility] MEDICARE ADVANTAGE IDPA Advance Directives For more information, please contact: [phone] * Full Code (Latest Code Status on File) Date Activated Date Inactivated Comments 05/11/2024 8:24 PM 05/19/2024 3:53 PM Care Teams Assembler Crimper Relationship Specialty Start Date End Date Kathya Orona DO [address] [facility] [address] [address] PCP - General Family Medicine 05/12/24 Sabino Luke MD [address] [place] [address] Referring Physician General Surgery 12/06/23
--- OUTSIDE RECORDS SUMMARY | 2025-01-26 14:57 | XMS_ITS | Referral Summary ---
Author Organization [facility] Address [address] [place] [address] Care Team Providers Care Lithographic Platemaker Name Role Phone Sabino Luke MD Unavailable [phone] Kathya Orona DO Primary Care Provider [phone] Encounters Date Type Department Care Team Description 12/18/2024 [facility] - [facility] Minimally Invasive Surgery [address] [facility] 12th Floor, [place] [address] Nataliya Su from Last 3 Months Allergies Active Allergy [...] 1 tablet (10 mg total) by mouth ophthalmology technician before breakfast 30 tablet 4 Active [...] 1 tablet (10 mg total) by mouth ophthalmology technician before breakfast 30 tablet 4 Active cyclobenzaprine (FLEXERIL) 10 mg tabletIndicatio ns:Muscle Spasm Take 1 tablet (10 mg total) by mouth 2 (two) times a day as needed for muscle spasms 30 tablet 4 Active hydroCHLOROthia zide (HYDRODIURIL) 25 mg tabletIndicatio ns:hypertension Take 1 tablet (25 mg total) by mouth ophthalmology technician before breakfast 30 tablet 4 Active [...] on file Legal Sex Female 8:15 AM WAREHOUSE PROCESSOR Gender Identity Not on file Sexual Orientation Not on file Occupation Industry Job Start Date Job End Date Disability Not on file Not on file Not on file Last Filed Vital Signs Vital Sign Reading Time Taken Comments Blood Pressure 130/86 07/03/2024 10:53 AM WAREHOUSE PROCESSOR Pulse 85 07/03/2024 10:53 AM WAREHOUSE PROCESSOR Temperature 36.6 C (97.9 F) 07/03/2024 10:53 AM WAREHOUSE PROCESSOR Respiratory Rate 16 07/03/2024 10:53 AM WAREHOUSE PROCESSOR Oxygen Saturation 97% 07/03/2024 10:53 AM WAREHOUSE PROCESSOR Inhaled Oxygen Concentration - - Weight 68.5 kg (151 lb) 07/03/2024 10:53 AM WAREHOUSE PROCESSOR Height 157.5 cm (5' 2) 07/03/2024 10:53 AM WAREHOUSE PROCESSOR Body Mass Index 27.62 07/03/2024 10:53 AM WAREHOUSE PROCESSOR Plan of Treatment Not on file Goals [...] home safety. Medical Devices Implanted Type Area Tax Compliance Officer Device Identifier Shelf Expiration Date Model / Serial / Lot Davol Inc/C R Bard [id number] Bard [id number] Monofilament Soft Lightweight Low Profile Square - [id number] - [id number] Implanted:Qty: 1 on 05/11/2024 by Sabino Luke MD at [facility] Mesh N/A: Abdomen Davol Inc/C R Bard [id number] 11/06/2028 [id number] / [id number] / [id number] Insurance [facility] MEDICARE ADVANTAGE [facility] MEDICARE ADVANTAGE IDPA [facility] MEDICARE ADVANTAGE IDPA Advance Directives For more information, please contact: [phone] * Full Code (Latest Code Status on File) Date Activated Date Inactivated Comments 05/11/2024 8:24 PM 05/19/2024 3:53 PM Care Teams Lithographic Platemaker Relationship Specialty Start Date End Date Kathya Orona DO [facility] [address] [address] PCP - General Family Medicine 05/12/24 Sabino Luke MD [address] [place] [address] Referring Physician General Surgery 12/06/23
--- OUTSIDE RECORDS SUMMARY | 2025-01-26 14:57 | XMS_ITS ---
Author Organization [facility] Address [address] [place] [address] Care Team Providers Care Plant Ecologist Name Role Phone Sabino Luke MD Unavailable [phone] Kathya Orona DO Primary Care Provider [phone] Active Problems Problem Noted Date Diagnosed Date [...]
== END 2025-01-26 14:08 | disposition home or self-care (01) ==
LOC: ANHCARD 14:07
PROVIDERS: PCP Family Medicine; Visit Provider Nurse Practitioner Family
DX: R06.02 Shortness of breath (principal)
CPT/HCPCS: 93306

== ENCOUNTER 2025-02-03 14:59 | Outpatient (CLI) | payer MEDICARE, MEDICAID, SELFPAY ==
[2025-02-05 14:57] LABS: Alternaria alternata IgE <0.10 kU/L; Alternaria alternata IgE Class 0; Aspergillus fumigatus IgE <0.10 kU/L; Bermuda Grass (G2) IgE <0.10 kU/L; Bermuda Grass (G2) IgE Class 0; Cat Dander IgE <0.10 kU/L; Cat Dander IgE Class 0; Cladosporium herbarum IgE <0.10 kU/L; Cladosporium herbarum IgE Clas 0; Cockroach IgE <0.10 kU/L; Cockroach IgE Clas 0; Common Ragweed IgE Class 0; Cottonwood IgE <0.10 kU/L; Dermatophagoides Farinae Class 0; Dermatophagoides Pterony Class 0; Dermatophagoides Pteronyssinus <0.10 kU/L; Dog Dander IgE <0.10 kU/L; Elm (T8) IgE <0.10 kU/L; Elm (T8) IgE Class 0; Hickory/Pecan IgE <0.10 kU/L; Hickory/Pecan IgE Class 0; Immunoglobulin E 51 kU/L (<OR=114); Immunoglobulin E 57 kU/L (<OR=114); Maple Box Elder IgE Class 0; Mountain Cedar IgE <0.10 kU/L; Mountain Cedar IgE Class 0; Mouse Urine Proteins IgE <0.10 kU/L; Mouse Urine Proteins IgE Class 0; Oak IgE <0.10 kU/L; Peniciliium notatum class 0; Penicillium notatum (M1) IgE <0.10 kU/L; Rough Marsh <0.10 kU/L; Rough Marsh Elder Class 0; Rough Pigweed (W14) IgE <0.10 kU/L; Rough Pigweed (W14) IgE Class 0; Russian Thistle <0.10 kU/L; Sycamore IgE <0.10 kU/L; Sycamore IgE Class 0; Timothy Grass IgE <0.10 kU/L; Timothy Grass IgE Class 0; Walnut Tree IgE <0.10 kU/L; Walnut Tree IgE Class 0; White Ash IgE Class 0; White Mulberry IgE <0.10 kU/L; White Mulberry IgE Class 0
[2025-02-08 12:42] LABS: Anti Nuclear Antibody Pattern Nuclear, Speckled; Anti Nuclear Antibody Titer 1:40 titer
== END 2025-02-03 15:00 | disposition home or self-care (01) ==
PROVIDERS: PCP Nurse Practitioner; Visit Provider Internal Medicine Critical Care Medicine
DX: J45.909 Unspecified asthma, uncomplicated (principal); R06.02 Shortness of breath; M35.9 Systemic involvement of connective tissue, unspecified; R05.9 Cough, unspecified
CPT/HCPCS: 36415; 82785; 86003; 86038; 86039

== ENCOUNTER 2025-02-08 12:48 | Outpatient (RCR) | payer MEDICARE, MEDICAID, SELFPAY ==
--- NOTE | 2025-02-08 14:17 | OPREHPOC ---
Outpatient Therapy Plan of Care This is a Multidisciplinary Plan of Care that may contain components documented by all disciplines (PT, OT, and ST.)
--- NOTE | 2025-02-08 14:17 | STOPEVAL1 ---
Assessment and note entered by Jeanne Shaver, SECURITY INSTALLATION TECHNICIAN Evaluation Information Assessment Status Evaluation Diagnosis R13.10 Subjective Information The patient is a69 year old female referred for a speech evaluation for possible dysphagia. The patient reports a hisotry of a persistent cough since Maynd shortness of breath now with activity. She reports some changes in voicing due to persistent coughing as well as a sticking sensation she experiences in her throat and heartburn/reflux like symptoms. Reported Pain Level Pain Score 0: Self Report Assessment ST Clinical Summary The patient is a 69 year old female referred for a swallow evaluation due to reports of a persistent cough since May 2024. The patient was assessed in the office with trials of thin liquid, pudding consistency, and solids. Oral Stage: The patient demonstrated timely oral preparation and transit of all consistencies. Pharyngeal stage: Swallow initiation was timely without viewed clinical signs of aspiration or penetration across consistencies. Such as coughing, choking, or wet vocal quality. The patient does have a hoarse/ strained vocal quality at times . However, not with food, in general liquid drinks appear to rehydrate her throat and the patient can then produce a more optimal voice. The patient reports at times at home she feels a sticking sensation in her throat that eases with alternating bites and drinks. She also reports some heartburn and belching frequently. Recommendations: Speech therapy not recommended at this time due to no clinical signs of aspiration indicating dysphagia as contributing factor to frequent coughing. May consider barium swallow to rule out possible reflux/GI issues as contributing factor. Plan of Care ST Services Indicated No These treatments will address the objective and functional deficits as defined above. The patient will be advanced safely and appropriately in order for the patient to progress towards his/her prior level of function. Additional exercises will be introduced and as well as a comprehensive home exercise program upon discharge, if needed, ?to ensure carryover of functional gains achieved in the clinic. This treatment plan has been reviewed and agreement upon by the patient.
== END 2025-02-08 15:26 | disposition home or self-care (01) ==
LOC: ANHST 12:48
PROVIDERS: PCP Family Medicine; Visit Provider Internal Medicine Critical Care Medicine
DX: R13.10 Dysphagia, unspecified (principal)
CPT/HCPCS: 92610

== ENCOUNTER 2025-02-09 10:30 | Emergency (ER) | payer MEDICARE, MEDICAID, SELFPAY ==
--- NOTE | ~2025-02-09 | XR_ITS ---
CHEST RADIOGRAPH, PA AND LATERAL CLINICAL HISTORY: chest pain and shortness of breath . COMPARISON: 09/01/2024 TECHNIQUE: PA and lateral views of the chest. FINDINGS Right internal jugular central venous power port catheter identified with its tip projecting over the cavoatrial junction. The remainder of the cardiomediastinal silhouette is otherwise unremarkable. The lungs are clear. IMPRESSION: No focal infiltrate or effusion. Reviewed, dictated and finalized at location A.
--- NOTE | ~2025-02-09 | NM_ITS ---
EXAMINATION: NM lung vent and perfusion DATE: 02/09/2025 15:12 INDICATION: Shortness of breath and chest pain TECHNIQUE: 22.4 mCi xenon-133 by inhalation and 5.2 mCi Tc-99m MAA by intravenous route. Scintigraph ic images of the chest were obtained. COMPARISON: FINDINGS: There is homogeneous radiotracer activity throughout the lungs on the single breath ventilation seque nce. There is relatively homogeneous perfusion throughout the lungs. No discrete ventilation and pe rfusion mismatch is identified. IMPRESSION: 1. Low probability for pulmonary embolism. Reviewed, dictated and finalized at location B.
--- NOTE | 2025-02-09 10:30 | ECG_ITS ---
Test Date: 2025-02-09 10:36:16 Measurements Intervals [place] Rate: 80 P: 44 PA: 147 QRS: 7 QRSD: 71 T: 7 QT: 373 QTc: 433 Interpretive Statements SINUS RHYTHM Compared to ECG 02/18/2024 16:04:38 Left ventricular hypertrophy no longer present Electronically Signed On 02-09-2025 18:04:37 CDT by Miguel Kwon
--- OUTSIDE RECORDS SUMMARY | 2025-02-09 10:41 | XMS_ITS ---
Author Organization [facility] Address [address] [place] [address] Care Team Providers Care Pipelines Supervisor Name Role Phone Sabino Luke MD Unavailable [phone] Kathya Orona DO Primary Care Provider [phone] Active Problems Problem Noted Date Diagnosed Date [...]
--- OUTSIDE RECORDS SUMMARY | 2025-02-09 10:41 | XMS_ITS | Referral Summary ---
Author Organization [facility] Address [address] [place] [address] Care Team Providers Care Technician Helper Instrument Name Role Phone Sabino Luke MD Unavailable [phone] Kathya Orona DO Primary Care Provider [phone] Encounters Date Type Department Care Team Description 12/18/2024 [facility] Advanced [facility] ([facility] - [facility] Minimally Invasive Surgery [address] [facility] [address]th [address], [place] [address] Nataliya Su from Last 3 [...] 1 tablet (10 mg total) by mouth aircraft stress analyst before breakfast 30 tablet 4 Active fluticasone [...] 1 tablet (10 mg total) by mouth aircraft stress analyst before breakfast 30 tablet 4 Active cyclobenzaprine (FLEXERIL) 10 mg tabletIndicatio ns:Muscle Spasm Take 1 tablet (10 mg total) by mouth 2 (two) times a day as needed for muscle spasms 30 tablet 4 Active hydroCHLOROthia zide (HYDRODIURIL) 25 mg tabletIndicatio ns:hypertension Take 1 tablet (25 mg total) by mouth aircraft stress analyst before breakfast 30 tablet 4 Active sertraline [...] on file Legal Sex Female 8:15 AM VP CONSTRUCTION Gender Identity Not on file Sexual Orientation Not on file Occupation Industry Job Start Date Job End Date Disability Not on file Not on file Not on file Last Filed Vital Signs Vital Sign Reading Time Taken Comments Blood Pressure 130/86 07/03/2024 10:53 AM VP CONSTRUCTION Pulse 85 07/03/2024 10:53 AM VP CONSTRUCTION Temperature 36.6 C (97.9 F) 07/03/2024 10:53 AM VP CONSTRUCTION Respiratory Rate 16 07/03/2024 10:53 AM VP CONSTRUCTION Oxygen Saturation 97% 07/03/2024 10:53 AM VP CONSTRUCTION Inhaled Oxygen Concentration - - Weight 68.5 kg (151 lb) 07/03/2024 10:53 AM VP CONSTRUCTION Height 157.5 cm (5' 2) 07/03/2024 10:53 AM VP CONSTRUCTION Body Mass Index 27.62 07/03/2024 10:53 AM VP CONSTRUCTION Plan of Treatment Not on file Goals [...] home safety. Medical Devices Implanted Type Area Final Assembly And Packing Supervisor Device Identifier Shelf Expiration Date Model / Serial / Lot Davol Inc/C R Bard [id number] Bard [id number] Monofilament Soft Lightweight Low Profile Square - [id number] - [id number] Implanted:Qty: 1 on 05/11/2024 by Sabino Luke MD at [facility] Mesh N/A: Abdomen Davol Inc/C R Bard [id number] 11/06/2028 [id number] / [id number] / [id number] Insurance [facility] MEDICARE ADVANTAGE [facility] MEDICARE ADVANTAGE IDPA [facility] MEDICARE ADVANTAGE IDPA Advance Directives For more information, please contact: [phone] * Full Code (Latest Code Status on File) Date Activated Date Inactivated Comments 05/11/2024 8:24 PM 05/19/2024 3:53 PM Care Teams Technician Helper Instrument Relationship Specialty Start Date End Date Kathya Orona DO [facility] [address] [address] PCP - General Family Medicine 05/12/24 Sabino Luke MD [address] [place] [address] Referring Physician General Surgery 12/06/23
--- OUTSIDE RECORDS SUMMARY | 2025-02-09 10:41 | XMS_ITS | Clinical Summary ---
Author Organization [facility] Address [address] [place] [address] Phone Care Team Providers Care Assurance Senior Name Role Phone GamalloydKathya dick Primary Care Provider [phone] Allergies Active Allergy Reactions Criticality Noted Date [...] Anxiety. Active fluticasone propionate (FLONASE) 50 mcg/spray [place], Suspension nasal inhaler Administer 2 Sprays in [...] daily. liquid Active naloxone (NARCAN) 4 mg/spray [place], Non-Aerosol EMERGENCY USE ONLY: Administer 1 spray [...] mouth daily. 30 Capsule 3 3 Active dicyclomine (BENTYL) 20 mg tablet TAKE [...] before CT scan. 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 Acute diarrhea 05/24/2021 COPD (chronic obstructive pulmonary disease) Acute pancreatitis without n ecrosis or infection, unspecified 05/24/2021 Benign hypertension 05/24/2021 Pancreatic mass Jaundice, non- Abdominal pain Elevated LFTs Encounters Date Type Department Care Team Description 12/06/2024 Refill [facility] Oncology and Hematology [facility] [address] [place] [address] Royal Newell MD 11/30/2024 11:00 AM CDT Office Visit [facility] Oncology and Hematology - [place] [address] [place] [address] Bernie Gil MD 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/25/2024 Orders Only [facility] Oncology and Hematology - [place] [address] [place] [address] Royal Newell MD 11/24/2024 External Device Data [facility] ABSTRACTION Provider, Abstract 11/23/2024 Orders Only [facility] Oncology and Hematology - [place] [address] [place] [address] Royal Newell MD 11/19/2024 Refill [facility] Oncology and Hematology [facility] [address] [place] [address] Royal Newell MD from Last 3 Months [...] Sign Reading Time Taken Comments Blood Pressure 127/78 11/30/2024 10:49 AM CDT Pulse 88 11/30/2024 10:49 AM CDT Temperature 36.1 C (96.9 F) 11/30/2024 10:49 AM CDT Respiratory Rate 15 11/30/2024 10:49 AM CDT Oxygen Saturation 92% 11/30/2024 10:49 AM CDT Inhaled Oxygen Concentration - - Weight 69 kg (152 lb 3.2 oz) 11/30/2024 10:49 AM CDT Height 157.5 cm (5' 2) 02/20/2023 10:31 AM CDT Body Mass Index 27.84 02/20/2023 10:31 AM CDT Plan of Treatment Upcoming Encounters Date Type Department Care Team (Late st Contact Info) Description 03/09/2025 2:15 PM CDT Office Visit [facility] Oncology and Hematology - [place] [address] [facility] [address] [place] [address] Royal Newell MD [address] [facility] [address] [place] [address] Health Maintenance Due Date Last [...] , 06/25/2017 Medical Devices Implanted Type Area Correspondence Section Supervisor Device Identifier Shelf Expiration Date Model / Serial / Lot Clip Ligating Horizon Lg Ti [id number] - Csc - [id number] Implanted:Qty : 1 on 12/29/2021 by Phil Mejia MD at [facility] Clip N/A: Abdomen TELEFLEX- WECK CLOSURE SYS [id number] / / Clip Ligating Horizon Ti Sm 24 [id number] Rp - [id number] Implanted:Qty : 2 on 12/29/2021 by Phil Mejia MD at [facility] Clip N/A: Abdomen TELEFLEX- WECK CLOSURE SYS [id number] RP / / Tube Feed Kangaroo 5fr 16in [id number] - [id number] Implanted:Qty : 1 on 12/29/2021 by Phil Mejia MD at [facility] Feeding Device N/A: Abdomen CARDINAL - PATIENT RECOVERY [id number] / / Description:INSERTED INTO PA NCREATIC DUCT Tube Feed Sullivan [id number] - [id number] Implanted:Qty : 1 on 12/29/2021 by Phil Mejia MD at [facility] Feeding Device N/A: Abdomen CARDINAL - PATIENT RECOVERY 04/11/2026 [id number] / / [id number] Description:WRAPPER CHECKED BY Tracy 01/01/22 Hemostat Surg Snow 2x4in 2081 - [id number] Implanted:Qty : 1 on 12/29/2021 by Phil Mejia MD at [facility] Hemostatic N/A: Abdomen J&J- ETHICON INC 09/11/2023 2082 / / [id number] Sealant Fibrin Vistaseal 10ml Vst10 - [id number] Implanted:Qty : 1 on 12/29/2021 by Phil Mejia MD at [facility] N[facility]A: Abdomen J&J- ETHICON INC 02/07/2023 VST10 / [id number] / [id number] Description:BOX CHECKED BY Melisa Nowak 01/01/2022 Stent Pncrtc Geenen 7fr 9cm [id number] - [id number] Implanted:Qty : 1 on 05/25/2021 by Omar Gonzalez MD at [facility] Stent COOK- ENDOSCOPY - HALINA-COOK [id number] 09/12/2023 [id number] / / [id number] Stent Bili Wallflex Rx 10x40 [id number] - [id number] Implanted:Qty : 1 on 05/25/2021 by Omar Gonzalez MD at [facility] Stent BOSTON SCI- ENDOSCOPY [id number] 02/13/2023 [id number] / / [id number] Procedures Procedure Name Priority Date/Time Associated Diagnosis Comments CT CHEST ABDOMEN PELVIS W CONT Routine 11/23/2024 1:50 PM CDT US RENAL Routine 11/23/2024 1:48 PM CDT CHG CA 19 9 Routine 11/23/2024 9:13 AM CDT from Last 3 Months Results * CT CHEST ABDOMEN PELVIS W CONT (11/23/2024 1:50 PM CDT) Anatomical Region Laterality Modality Chest Computed Tomogra phy us Royal Newell MD CT ORDERABLES Final Result * US RENAL (11/23/2024 1:48 PM CDT) Anatomical Region Laterality Modality Abdomen Ultrasound us Royal Newell MD US ORDERABLES Final Result * CHG CA 19 9 (11/23/2024 9:13 AM CDT) us Royal Newell MD CHG - LABORATORY Final Result from Last 3 Months Insurance [place]ICAID [place] RX OPTUM RX Member Subscriber Plan / Payer (Ef fective 2017-Present) Name:Krissy Oneal Relation to Subscriber:Self Name:Krissy Oneal Payer ID:Not on file Group ID:[id number] Type:RX Medicare Part D Address: [address] [employer] (INTERNAL) [facility] Plans [place] Advance Directives For more information, please contact: [phone] * Full Code (Latest Code Status on File) Date Activated Date Inactivated Comments 12/29/2021 8:18 PM 01/08/2022 8:26 PM * Full Code Date Activated Date Inactivated Comments 12/29/2021 5:49 AM 12/29/2021 8:17 PM * Full Code Date Activated Date Inactivated Comments 05/25/2021 12:46 PM 06/01/2021 9:14 PM * Full Code Date Activated Date Inactivated Comments 05/24/2021 5:14 AM 05/25/2021 12:46 PM Care Teams Assurance Senior Relationship Specialty Start Date End Date Kathya Orona DO [address] [facility] [address] [place] [id number] PCP - General Family Practice 05/07/24
--- OUTSIDE RECORDS SUMMARY | 2025-02-09 10:41 | XMS_ITS | Clinical Summary ---
Author Organization [facility] Address [address] [place] [address] Care Team Providers Care Helium Arc Welder Name Role Phone Sabino Luke MD Unavailable [phone] Kathya Orona DO Primary Care Provider [phone] Allergies Active Allergy Reactions Criticality Noted Date [...] 1 tablet (10 mg total) by mouth helium arc welder before breakfast 30 tablet 4 Active fluticasone [...] 1 tablet (10 mg total) by mouth helium arc welder before breakfast 30 tablet 4 Active cyclobenzaprine (FLEXERIL) 10 mg tabletIndicatio ns:Muscle Spasm Take 1 tablet (10 mg total) by mouth 2 (two) times a day as needed for muscle spasms 30 tablet 4 Active hydroCHLOROthia zide (HYDRODIURIL) 25 mg tabletIndicatio ns:hypertension Take 1 tablet (25 mg total) by mouth helium arc welder before breakfast 30 tablet 4 Active sertraline [...] Date Type Department Care Team Description 12/18/2024 [facility] - [facility] Minimally Invasive Surgery [address] [facility] [address]th [address], [place] [address] Nataliya Su from Last 3 [...] on file Legal Sex Female 8:15 AM KOSHER BUTCHER Gender Identity Not on file Sexual Orientation Not on file Occupation Industry Job Start Date Job End Date Disability Not on file Not on file Not on file Obstetrics History Last Filed Vital Signs Vital Sign Reading Time Taken Comments Blood Pressure 130/86 07/03/2024 10:53 AM KOSHER BUTCHER Pulse 85 07/03/2024 10:53 AM KOSHER BUTCHER Temperature 36.6 C (97.9 F) 07/03/2024 10:53 AM KOSHER BUTCHER Respiratory Rate 16 07/03/2024 10:53 AM KOSHER BUTCHER Oxygen Saturation 97% 07/03/2024 10:53 AM KOSHER BUTCHER Inhaled Oxygen Concentration - - Weight 68.5 kg (151 lb) 07/03/2024 10:53 AM KOSHER BUTCHER Height 157.5 cm (5' 2) 07/03/2024 10:53 AM KOSHER BUTCHER Body Mass Index 27.62 07/03/2024 10:53 AM KOSHER BUTCHER Plan of Treatment Health Maintenance Due Date [...] on stairs Contact your local community or [facility] for information on exercise, fall prevention programs, or options for improving home safety. Medical Devices Implanted Type Area Printed Circuit Board Preassembler Device Identifier Shelf Expiration Date Model / Serial / Lot Davol Inc/C R Bard [id number] Bard [id number] Monofilament Soft Lightweight Low Profile Square - [id number] - [id number] Implanted:Qty: 1 on 05/11/2024 by Sabino Luke MD at [facility] Mesh N/A: Abdomen Davol Inc/C R Bard [id number] 11/06/2028 [id number] / [id number] / [id number] Insurance [facility] MEDICARE ADVANTAGE [facility] MEDICARE ADVANTAGE IDPA [facility] MEDICARE ADVANTAGE IDPA Advance Directives For more information, please contact: [phone] * Full Code (Latest Code Status on File) Date Activated Date Inactivated Comments 05/11/2024 8:24 PM 05/19/2024 3:53 PM Care Teams Helium Arc Welder Relationship Specialty Start Date End Date Kathya Orona DO [address] [facility] [address] [address] PCP - General Family Medicine 05/12/24 Sabino Luke MD [address] [place] [address] Referring Physician General Surgery 12/06/23
--- OUTSIDE RECORDS SUMMARY | 2025-02-09 10:41 | XMS_ITS ---
Author Organization [facility] Address [address] [place] [address] Phone Care Team Providers Care Project Manager/Design Manager Name Role Phone Kathya Orona Primary Care Provider [phone] Active Problems Problem Noted Date Diagnosed Date [...]
--- OUTSIDE RECORDS SUMMARY | 2025-02-09 10:43 | XMS_ITS | Data Portability ---
Author Organization [facility] [employer], Main Office Address [address] [place] [address] Assessment No assessment recorded. Plan of Treatment Reminders Order Date Submit Date Provider Last Modified By Organization Details Last Modified Time Details Appointments None recorded. 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 Surgeries None recorded. Imaging XR, lumbosacral spine, 2 or 3 view 2022 023 [facility] (Imaging), [address], [place], [address], 3 07:23:32 Medication Orders metformin ER 500 mg 24 hr tablet,exte nded release (gastric retention) 2022 023 [email or web address] [facility], [address] , [place], [address], 3 10:42:15 Januvia 100 mg tablet 2022 023 [email or web address] [facility], [address] , [place], [address], 3 17:01:13 metformin ER 500 mg 24 hr tablet,exte nded release (gastric retention) 2022 023 [id number] [facility], [address] , [place], [address], 3 10:42:15 cyclobenzap rine 10 mg tablet 2022 023 [email or web address] [facility], [address], [place], [address], 3 15:13:53 Patient TargetsNo targets recorded. 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 Ref erral for Chronic urticaria Referring Physician: Rosibel Muse Family Medicine, Encounter Date: 03/19/2023 Results Created Date Observation Date Name Description Value Unit Range Abnormal Flag Note LastModifiedBy Organization Detail LastModifiedTime 04/01/20 23 04/01/2023 hemog lobin A1C, skip noriega k HgbA1C 14 Not Available [address], [place], [address], 04/01/2023 12:27:07 07/17/20 23 07/17/2023 hemog lobin A1C, skip moctezuma HgbA1C 7.3% Not Available [address], [place], [address], 07/17/2023 11:45:37 12/12/19 23 12/10/2022 XR, lumbo sacra l spine , 2 or 3 view No observ ation record ed. [address] [address], [place], [address], 12/11/2022 10:23:16 12/16/19 23 12/15/2022 MRI, lumba r spine , w/o contr ast No observ ation record ed. [address] [address], [place], [address], 12/17/2022 09:06:14 12/20/19 23 12/18/2022 CT, abdom en + pelvi s, w/o contr ast No observ ation record ed. [address] [address], [place], [address], 12/19/2022 09:06:54 02/09/20 23 02/08/2023 imagi ng/di agnos tic resul t No observ ation record ed. [address] [address], [place], [address], 02/11/2023 08:33:36 05/10/20 23 05/10/2023 CT, abdom en + pelvi s, w/ contr ast No observ ation record ed. [address] [address], [place], [address], 05/14/2023 09:26:03 05/28/20 23 05/28/2023 PET, skull base to mid-t high No observ ation record ed. [address] [address], [place], [address], 05/29/2023 12:47:13 07/23/20 23 07/23/2023 MRI, abdom en, w/o contr ast No observ ation record ed. [address] [address], [place], [address], 08/21/2023 16:04:02 08/19/19 24 08/19/2023 CT, abdom en + pelvi s, w/ contr ast No observ ation record ed. [address] [address], [place], [address], 08/21/2023 16:04:03 09/06/19 24 09/06/2023 MRI, brain + brain stem, w/wo contr ast No observ ation record ed. [address] [address], [place], [address], 09/10/2023 12:14:57 11/19/19 24 11/19/2023 PET, brain scan, metab olic evalu ation No observ ation record ed. [address] [address], [place], [address], 11/21/2023 10:45:08 Result Notes None recorded. Problems Name Problem SNOMED Code Status Onset Date Resolution Date Notes Provider Name and Address Organization Details Recorded Time Acute sinusitis 89324990 Active Not Available [facility] 3 16:21:40 Anxiety disorder 007698246 Active Not Available [employer] 3 16:21:40 Allergic contact dermatitis 116202567 Active [facility] Available [facility] 3 16:21:40 Eruption 529060325 Active Not Available [facility] 3 16:21:40 Low back pain 013691060 Active Not Available [facility] 3 16:21:40 Numbness of lower limb 613076481 Active Not Available [facility] 3 16:21:40 Depressive disorder 17318898 Active Not Available [facility] 3 16:21:40 Arthritis 7568166 Active Not Available [facility] 3 16:21:40 Hypertensive disorder 80240033 Active Not Available [facility] 3 16:21:40 Neuropathy 342706900 Active Not Available [facility] 3 16:21:40 Anxiety 03298348 Active Not Available [facility] 3 16:21:40 Hyperlipidemi a 61234030 Active Not Available [facility] 3 16:21:41 Allergic rhinitis 85569664 Active Not Available [facility] 3 16:21:41 Diarrhea 58011679 Active 2021 Not Available [facility] 3 16:21:41 Costal chondritis 44038112 Active 2016 Not Available [facility] 3 16:21:41 Spinal stenosis in cervical region 52019918 Active Not Available [facility] 3 16:21:41 Edema of lower extremity 562991060 Active 2022 Not Available [facility] 3 16:21:40 Ventral incisional hernia 690517237 Active 2022 Not Available [facility] 3 16:21:40 Spinal stenosis of lumbar region 83249825 Active 2022 Not Available [facility] 3 16:21:40 Umbilical hernia 358435763 Active 2022 Not Available [facility] 3 16:21:40 Chronic urticaria 36032345 Active 2022 Not Available [facility] 3 16:21:41 Uncontrolled type 2 diabetes mellitus 747622403 Active 2022 Not Available [facility] 3 16:21:40 Essential hypertension 38769155 Active 2022 Not Available [facility] 3 16:21:41 COVID-19 241572230 Active 2022 Nancy Ashford MD [address] [address], [place], [address] , [facility] [employer] [facility] [employer] 3 11:37:11 Type 2 diabetes mellitus 09001951 Active 2023 TRAVIS Samano [address] [facility], [facility] [address], [place], [address] , [facility] [employer] [facility] [employer] 4 11:23:31 Notes:Some problems listed i n Documents: #[id number], #[id number] could not be added to this patient's [...] n vasculiti s moderate Not available 10/10/2022 63374 8003 SNOMED Not Available [facility] 3 08:53:14 29734 Product containin g penicilli n (product) medicatio n Not available Not available Not available 10/10/2022 16935 8001 SNOMED Not Available [facility] 3 08:53:14 85983 erythromy rae medicatio n Not available Not available Not available 10/10/2022 4053 RxNorm Not Available [facility] 3 08:53:14 48820 amoxicill in medicatio n Not available Not available Not available 10/10/2022 723 RxNorm Not Available [facility] 3 08:53:14 Medications Name Sig Start [...] 80 mg/mL suspensio n for injection active [facility]#[id number] Not Available Not Available Not [...] Updated DateTime 4 157.48 cm 28.3 kg/m2 66575.8 2 g 16 /min 97.3 [degF] 83.99 /min 98 % 98 % 124 mm[Hg] 86 mm[Hg] Merna Hernandez RN [facility] [employer] [facility] 4 11:14:22 Date Recorded Body height Body mass index (BMI) Body weight Body temperature Heart rate Oxygen saturation Oxygen saturation in Arterial blood by Pulse oximetry Systolic blood pressure Diastolic blood pressure Provider Name and Address Organization Details Last Updated DateTime 3 157.48 cm 30.4 kg/m2 74120.3 3 g 97.2 [degF] 112 /min 98 % 98 % 160 mm[Hg] 70 mm[Hg] VERONICA Ro [facility] [employer] [facility] 3 14:52:52 Date Recorded Body height Body mass index (BMI) Body weight Body temperature Heart rate Oxygen saturation Oxygen saturation in Arterial blood by Pulse oximetry Systolic blood pressure Diastolic blood pressure Provider Name and Address Organization Details Last Updated DateTime 3 157.48 cm 29.8 kg/m2 00980.5 6 g 98.1 [degF] 69 /min 97 % 97 % 140 mm[Hg] 86 mm[Hg] VERONICA Ro [facility] [employer] [facility] 3 16:18:55 Date Recorded Body height Body mass index (BMI) Body weight Body temperature Heart rate Oxygen saturation Oxygen saturation in Arterial blood by Pulse oximetry Systolic blood pressure Diastolic blood pressure Provider Name and Address Organization Details Last Updated DateTime 3 157.48 cm 30.2 kg/m2 52464.7 4 g 97.5 [degF] 90 /min 97 % 97 % 110 mm[Hg] 72 mm[Hg] Kayleigh ayon CMA [place] [facility] [employer] 3 12:12:37 Date Recorded Body height Body mass index (BMI) Body weight Body temperature Heart rate Oxygen saturation Oxygen saturation in Arterial blood by Pulse oximetry Respiratory rate Systolic blood pressure Diastolic blood pressure Provider Name and Address Organization Details Last Updated DateTime 3 157.48 cm 29.3 kg/m2 29115.7 8 g 97.6 [degF] 89 /min 98 % 98 % 16 /min 136 mm[Hg] 84 mm[Hg] Merna Hernandez RN [facility] [employer] [facility] 3 11:30:35 Social History None recorded. Functional Status None recorded. Mental Status None recorded. Family History Nothing Reported. Medical History No medical history recorded. Gynecological HistoryNo gynecological history recorded. Obstetrics History GPAL:G 0 P 0 0 0 0 Immunizations Vaccine Type Date Status Note Provider Nam e and Address Organization Details Recorded Time Influenza, split virus, quadrivalent, PF 05/28/2018 completed Not Available [facility] 3 08:53:10 Influenza, split virus, quadrivalent, PF 06/25/2017 completed Not Available [facility] 3 08:53:10 Past Encounters Encounter ID Performer Location Encounter Start Date Encounter Closed Date Diagnosis/Indication Diagnosis SNOMED-CT Code Diagnosis ICD10 Code Diagnosis Note [id number] Rosibel Muse MD [facility] [place] [address] 01/03/2021 00:00:00 01/03/2021 20:10:24 [id number] Rosibel Muse MD [facility] [place] [address] 04/07/2021 00:00:00 04/08/2021 10:18:03 [id number] Rosibel Muse MD [facility] [place] [address] 06/08/2021 00:00:00 06/08/2021 13:20:50 [id number] Rosibel Muse MD [facility] [address] [place] [address] [place] [address] 11/02/2021 00:00:00 11/02/2021 19:44:37 [id number] Rosibel Muse MD [facility] [address] [place] [address] [place] [address] 11/16/2021 00:00:00 11/16/2021 21:32:45 [id number] Rosibel Muse MD [facility] [address] [place] [address] [place] [address] 12/10/2022 14:41:31 12/10/2022 15:20:19 Edema of lower extremity 926726592 R60.0 Compressio n stockings. elevate legs. Watch salt in diet. Low back pain 562135999 M54.50 Ventral in cisional hernia 530406797 K43.2 [id number] Rosibel Muse MD [facility] [address] [place] [address] [place] [address] 03/19/2023 16:12:31 03/19/2023 16:49:01 Chronic urticaria 70447077 L50.8 Use zyrtec. 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 New onset DM2. Will start metformin Will f/u in 3 months. Needs to watch carbs in diet and also pamphlets given out for DM. [id number] Rosibel Muse MD [facility] [address] [facility] [place] [address] 07/17/2023 11:25:10 07/17/2023 12:00:58 Uncontrolled type 2 diabetes mellitus 015544958 E11.65 [id number] Rosibel Muse MD [facility] Kennethfernando elaine [address] [facility] [place] [address] 10/16/2023 11:06:30 10/16/2023 11:28:23 Type 2 diabetes mellitus 20069407 E11.9 Allergic rhinitis 934892 04 J30.9 Anxiety 43448759 F41.9 Arthritis 5904906 M19.90 Depressive disorder 3548 9007 F32.A Essential hypertension 15114508 I10 Hyperlipidemia 86083918 E78.5 Low back pain 656904386 M54.50 Neuropathy 657651416 G62 .9 Health Concerns Section Related Observation LastModified by Organization Detai ls LastModified Time None Recorded Concern Status LastModified by Organization Details LastModified Time None Recorded Advance Directives Directive None Recorded Payers Insurance Date Sequence Insurance Name Policy Number Policy Mcrae Covered Member ID Mcrae Member ID Guarantor Name 10/16/2023 2 [place] [employer] [facility] [id number] [facility] 10/28/2023 1 [facility] (MEDICARE REPLACEMENT/A DVANTAGE - HMO) [id number] [facility] [id number] [facility] Notes Date Note Type Note Provider [...] for LBP. Rosibel Muse MD [address], [place], [address], [employer] 12/11/2022 06:23:51 03/19/2023 text/html Is breaking out with hives going on since 02/01. It comes and goes. The bumps do itch. Using benadryl and cortisone cream. Stopped losartan Has been taking 2 amlodipine. Went to ER and was given prednisone and taking benadryl. It makes her drowsy. Rosibel Muse MD [address], [place], [address], [employer] 03/19/2023 20:14:31 04/01/2023 text/html Here today for [...] Muse MD [address], [place], [address], [employer] 04/01/2023 20:57:05 07/17/2023 text/html here for f/u TRAVIS Samano [address], [place], [address], [employer] 07/28/2023 09:50:11 10/16/2023 text/html no changes TRAVIS Samano [address], [place], [address], [employer] 10/26/2023 21:20:45 OBGyn Episode No OBEpisode recorded.
[2025-02-09 10:48] VITALS: BP 113/81; PULSE 75; RESP 25; TEMP 36.6; O2SAT 100
[2025-02-09 10:55] LABS: Hematocrit 40.5 % (37.0-47.0); Hemoglobin 13.0 g/dL (12.0-15.0); Immature Granulocyte Percent A 0.4 % (0-0.5); Lymphocytes Absolute Auto 1.79 K/mm3 (0.9-3.2); Mean Corpuscular HGB Conc 32.1 g/dl (32-36); Mean Corpuscular Hemoglobin 27.3 pg (26-34); Mean Corpuscular Volume 84.9 fl (80-100); Nucleated Red Blood Cells Absolute Auto 0.000 K/mm3 (0.0-0.012); Nucleated Red Blood Cells Perc 0.0 % (0.0-0.2); Platelet Count Result 262 k/mm3 (150-375); Red Blood Count 4.77 M/mm3 (4.2-5.4); White Blood Count 5.4 K/mm3 (4.5-10.0)
[2025-02-09 11:08] LABS: Alanine Aminotransferase 21 U/L (6-35); Albumin Level 4.7 g/dL (3.5-5.1); Alkaline Phosphatase 73 U/L (38-126); Anion Gap 13 mmol/L (4-12); Aspartate Amino Transferase 27 U/L (14-36); Bilirubin,Total 0.4 mg/dL (0.2-1.3); Blood Urea Nitrogen 18 mg/dL (7-17); Calcium 9.7 mg/dL (8.4-10.2); Carbon Dioxide 27 mmol/L (22-30); Chloride 99 mmol/L (98-107); Estimated Glomerular Filt Rate > 60; Glucose 113 mg/dL (65-110); Lipase 36 U/L (23-300); Potassium 3.3 mmol/L (3.4-5.0); Sodium 139 mmol/L (137-145); Total Protein 8.1 g/dL (6.3-8.2)
[2025-02-09 11:09] LABS: INR 0.9; Prothrombin Time 12.2 Seconds (11.1-14.7)
[2025-02-09 11:10] LABS: Partial Thromboplastin Time 27.3 Seconds (22.3-36.8)
[2025-02-09 11:19] LABS: Troponin I < 0.012 ng/mL (0.000-0.034)
[2025-02-09 13:41] VITALS: BP 130/82; PULSE 70; PULSE 73; RESP 23; TEMP 36.4; O2SAT 100
--- NOTE | 2025-02-09 14:11 | ED.CHESTPAIN ---
HPI - Chest Pain General Chief Complaint: Chest Pain Stated Complaint: chest pain, shortness of breath x months Time Seen by Provider: 02/09/25 13:07 History of Present Illness HPI narrative: 69-year-old female with a past medical history including COPD, hypertension, diabetes, pancreatic cancer status post Whipple now in remission. Presents to the emergency department for intermittent midsternal chest pain shortness a breath for several months. Patient states that she has had intermittent substernal sensations of chest pressure that causes feel very anxious and then she gets short of breath afterwards. She does the symptoms worsened when she gets up and exerts herself even with minimal activity. Stops at rest. No history of cardiac disease to her knowledge. No history of DVT or PE and not any anticoagulation medications. No leg swelling or recent surgeries. She states that these symptoms are going on for many months and she has been seen by her primary care doctor and instructional materials director without any explanations to her symptoms. She is tired and wants questions answered. Endorses chest discomfort and shortness a breath, no nausea, vomiting, abdominal pain, back pain, fever, chills. No leg pain or leg swelling. No weakness or neurological deficits. Related Data Home Medications ?Medication ?Instructions ?Recorded ?Confirmed ?Last Taken ?Type potassium chloride 20 mEq 20 meq PO DAILY 10/17/21 02/04/25 04/08/22 History tablet,extended release mecobalamin (vitamin B12) 500 mcg 500 mcg PO DAILY 01/21/24 02/04/25 Unknown History chewable tablet cholecalciferol (vitamin D3) 50 50 mcg PO DAILY 12/07/24 02/04/25 Unknown History mcg (2,000 unit) capsule Allergies Allergy/AdvReac Type Severity Reaction Status Date / Time Macrolide Antibiotics Allergy Intermediate ITCHING Verified 02/09/25 13:51 amoxicillin Allergy Unknown Itching Verified 02/09/25 13:51 erythromycin base Allergy Unknown Itching Verified 02/09/25 13:51 naproxen Allergy Unknown Rash Verified 02/09/25 13:51 Penicillins Allergy Unknown Itching Verified 02/09/25 13:51 Sulfa (Sulfonamide Allergy Unknown Dizziness Verified 02/09/25 13:51 Antibiotics) Iodinated Contrast Media Allergy Hives Verified 02/09/25 13:51 iohexol (From contrast - CT, Allergy Itching Verified 02/09/25 13:51 X-RAY) gadobenic acid (From AdvReac Itching Verified 02/09/25 13:51 contrast - MRI) Contrast Media Allergy Intermediate ITCHING Uncoded 02/09/25 13:51 PMFSH Past Medical History Medical History Difficulty swallowing Pancreatic cancer Dilated intrahepatic bile duct Helicobacter pylori (H. pylori) Diarrhea Nausea Upper abdominal pain Ana-ampullary neoplasm Overweight (BMI 25.0-29.9) Abdominal bloating Hypertension High cholesterol Coughing Wears glasses Chronic back pain DDD (degenerative disc disease) Arthritis Post-menopausal Fibroids Hiatal hernia GERD (gastroesophageal reflux disease) Sleep apnea Bronchitis On home O2 Hyperlipidemia Seasonal allergies Depression Anxiety Hypoxia Asthma Essential hypertension BETTY (obstructive sleep apnea) No longer uses CPAP Pulmonary hypertension Surgical History Surgical History History of sinus surgery History of thyroidectomy Goiter removed History of spinal surgery Cervical fusion History of dilatation and curettage History of tubal ligation History of hysterectomy History of cardiac catheterization Family History Family History Father Family history of malignant neoplasm Leukemia Mother Liver cirrhosis Sibling Asthma Malignant neoplasm of prostate Diabetes mellitus Hypertension Other Arthritis Social History Social History Social History: The patient lives at home with her who is a durable power attorney lawyer for healthcare. The patient is a full code. The patient has 2 children. 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 Patient is an ex-smoker she quit in 2003. She does not use any alcohol marijuana or illicit drugs. Caffeine-mushroom coffee Smoking packs per day: 0.5 Smoking cigarettes per day: 10.0 Years smoked: 30 Smoking pack-years: 15.00 Smoking status: Former smoker Tobacco type: cigarettes Second hand tobacco smoke exposure: No Smoking end date: 05/21/03 Additional smoking assessment comments: STATES 1PK TO 1 1/2PK/WEEK/30YRS, QUIT 2003 Alcohol intake: never Substance use: never Substance use type: does not use Do You Feel Safe in your Home?: Yes Lack of Transportation: YES Lack of Food: Never True Current Housing: I Have Housing Concerned About Future Housing: No Difficulty Paying Gas/Electric Bills: No Difficulty Paying for Meds: No Currently Unemployed: No Education: Trade/Vocational Certificate Difficulty w/ Childcare or Family Care: No Living arrangements: with family Occupation/Education: retired Gender identity (if verbalized by the patient): Female Spiritual care concerns: No Course Vital Signs Vital signs: Vital Signs Temperature 36.6 C 02/09/25 10:48 Pulse Rate 75 02/09/25 10:48 Respiratory Rate 25 H 02/09/25 10:48 Blood Pressure 113/81 02/09/25 10:48 Pulse Oximetry 100 02/09/25 10:48 Oxygen Delivery Room Air 02/09/25 10:48 Temperature 36.5 C 02/09/25 16:44 Pulse Rate 73 02/09/25 16:44 Respiratory Rate 21 H 02/09/25 16:44 Blood Pressure 132/80 02/09/25 16:44 Pulse Oximetry 99 02/09/25 16:44 Oxygen Delivery Room Air 02/09/25 13:41 MDM - Chest Pain MDM Narrative Medical decision making narrative: 69-year-old female with a past medical history including COPD, hypertension, diabetes, pancreatic cancer status post Whipple now in remission. Presents to the emergency department for intermittent midsternal chest pain shortness a breath for several months. Patient states that she has had intermittent substernal sensations of chest pressure that causes feel very anxious and then she gets short of breath afterwards. She does the symptoms worsened when she gets up and exerts herself even with minimal activity. Stops at rest. No history of cardiac disease to her knowledge. No history of DVT or PE and not any anticoagulation medications. No leg swelling or recent surgeries. She states that these symptoms are going on for many months and she has been seen by her primary care doctor and instructional materials director without any explanations to her symptoms. She is tired and wants questions answered. Endorses chest discomfort and shortness a breath, no nausea, vomiting, abdominal pain, back pain, fever, chills. No leg pain or leg swelling. No weakness or neurological deficits. Patient has an unremarkable physical examination and talks incomplete and in clear sentences without any dyspnea. She is very tearful in her affect but has clear breath sounds throughout, strong symmetric pulses, no signs of DVT on examination. Her vital signs show some tachypnea but afebrile, 100% on room air, no tachycardia or blood pressure concerns. Patient's symptomatology has been going on for ?months ?so unclear if there is any urgent or emergent concerns but she does have elevated risk factors and the component of exertional dyspnea exertional shortness of breath this concerning for potential cardiac or thoracic causes otherwise. Cardiac workup ordered including serial troponins, EKG, chest x-ray. Initially discussed CT angiography of the chest for PE protocol as patient gets serial CT scans every 6 months and gets pretreated with Benadryl for her symptoms of hives with contrast. Initially this was ordered but radiology states that we cannot do this and she needs a 13 hour prep which patient is not amenable for as she normally does just fine of Benadryl. Alternatives were discussed and V/Q scan was ordered. Patient placed on cardiac cath tech and pulse oximetry and frequently re-evaluated. Workup is unremarkable. No leukocytosis or anemia. Normal platelet count. Coagulation panel is normal. Electrolytes are largely unremarkable, normal creatinine, normal glucose, normal LFTs. Troponin is negative multiple times, negative BNP, negative lipase. Chest x-ray shows no infiltrates or effusion and V/Q scan is low probability PE. Patient has no focal findings or any concerns today and her hemodynamics are stable, she is a good candidate for outpatient follow-up with her primary doctor and instructional materials director for further recommendations and risk stratification. Patient safely discharged home at this time. Medical Records Data Attestation: I reviewed the patient's medical records. Lab Data Attestation: I reviewed the patient's lab results. 02/09/25 10:47 02/09/25 10:47 Labs: Lab Results 02/09/25 02/09/25 Range/Units 10:47 14:48 WBC 5.4 (4.5-10.0) K/mm3 RBC 4.77 (4.2-5.4) M/mm3 Hgb 13.0 (12.0-15.0) g/dL Hct 40.5 (37.0-47.0) % MCV 84.9 (80-100) fl MCH 27.3 (26-34) pg MCHC 32.1 (32-36) g/dl RDW 14.0 (11.5-14.5) % Plt Count 262 (150-375) k/mm3 MPV 9.2 (7.4-10.4) fl Immature Gran % (Auto) 0.4 (0-0.5) % Neut % (Auto) 55.9 (45.5-73.1) % Lymph % (Auto) 33.0 (18.3-44.2) % [place] % (Auto) 6.4 (2.6-8.5) % Eos % (Auto) 3.9 (0-4.4) % Baso % (Auto) 0.4 (0.2-1.2) % Lymph # (Auto) 1.79 (0.9-3.2) K/mm3 [place] # (Auto) 0.4 (0.1-0.6) K/mm3 Eos # (Auto) 0.2 (0-0.3) K/mm3 Baso # (Auto) 0.0 (0.0-0.1) K/mm3 Abs Immat Gran (auto) 0.02 (0.00-0.031) K/mm3 Absolute Neuts (auto) 3.0 (1.3-6.7) K/mm3 Absolute Nucleated RBC 0.000 (0.0-0.012) K/mm3 Nucleated RBC % 0.0 (0.0-0.2) % PT 12.2 (11.1-14.7) Seconds INR 0.9 APTT 27.3 (22.3-36.8) Seconds Sodium 139 (137-145) mmol/L Potassium 3.3 L (3.4-5.0) mmol/L Chloride 99 (98-107) mmol/L Carbon Dioxide 27 (22-30) mmol/L Anion Gap 13 H (4-12) mmol/L BUN 18 H (7-17) mg/dL Creatinine 0.91 (0.7-1.0) mg/dL Estim Creat Clear Calc Not Reportable Estimated GFR > 60 (59 - ) Glucose 113 H (65-110) mg/dL Calcium 9.7 (8.4-10.2) mg/dL Total Bilirubin 0.4 (0.2-1.3) mg/dL AST 27 (14-36) U/L ALT 21 (6-35) U/L Alkaline Phosphatase 73 (38-126) U/L Troponin I < 0.012 < 0.012 (0.000-0.034) ng/mL NT-Pro-B Natriuret Pep < 20 (19.9-100) pg/mL Total Protein 8.1 (6.3-8.2) g/dL Albumin 4.7 (3.5-5.1) g/dL Lipase 36 (23-300) U/L Imaging Data Attestation: I personally reviewed and interpreted this imaging study as follows: My impression: Impressions Chest X-Ray 02/09/25 11:54 IMPRESSION: No focal infiltrate or effusion. Pulmonary Perfusion Imaging 02/09/25 15:27 IMPRESSION: 1. Low probability for pulmonary embolism. Discharge Plan Discharge Clinical Impression: Chronic shortness of breath, Chest pain Patient Disposition: Home Condition: Stable Instructions: Antibiotic Form, Chest Pain (ED), Dyspnea (ED) Additional Instructions: Your workup today is unrevealing. Your cardiac markers were all negative and undetectable, no signs of any infection or pneumonia, scans of your lungs do not show any signs of a blood clot. Ultimately we do not have an explanation for your symptoms but they are longstanding and we have not identified any urgent or emergent concerns today. Follow-up with your regular doctors and instructional materials director for further recommendations. Return with any worsening or new symptoms or any other concerns. Patient Language: Yi Prescriptions: No Action potassium chloride 20 mEq Tablet Extended Release 20 meq PO DAILY albuterol sulfate [ProAir HFA] 90 mcg/actuation HFA aerosol inhaler 1 inh INHALATION Q4H PRN (Reason: Shortness Of Breath) Qty: 25.5 3RF mecobalamin (vitamin B12) 500 mcg tablet,chewable 500 mcg PO DAILY cholecalciferol (vitamin D3) 50 mcg (2,000 unit) capsule 50 mcg PO DAILY Trelegy Ellipta 100-62.5-25 mcg blister with device 1 inh inhalation DAILY 90 Days Qty: 180 1RF Rx Instructions: Rinse and spit (DME) lancets [Lancets,Ultra Thin] Misc See Rx Instructions .Route Qty: 100 8RF Rx Instructions: Use to check BS BID dicyclomine 20 mg tablet 20 mg PO BID Qty: 180 1RF hydrochlorothiazide 25 mg tablet 37.5 mg PO DAILY 90 Days Qty: 150 1RF alprazolam 1 mg tablet 1 mg PO HS Qty: 90 1RF (DME) Accu-Chek Guide test strips Strip See Rx Instructions .Route Qty: 100 3RF Rx Instructions: BID simvastatin 20 mg tablet 20 mg PO HS Qty: 90 1RF sertraline 50 mg tablet 50 mg PO HS Qty: 90 1RF amlodipine 10 mg tablet 10 mg PO DAILY Qty: 90 1RF metformin 500 mg tablet extended release 24 hr 500 mg PO BID Qty: 60 0RF dapagliflozin propanediol [Farxiga] 10 mg tablet 10 mg PO DAILY Qty: 90 1RF Follow-up/Referrals: Kathya Orona DO [Primary Care Provider] - Time of Disposition: 16:05
[2025-02-09 14:21] LABS: NT Pro B Type Natriuretic Pept < 20 pg/mL (19.9-100)
--- NOTE | 2025-02-09 14:22 | ECG_ITS ---
Test Date: 2025-02-09 14:32:01 Measurements Intervals [place] Rate: 70 P: 31 MS: 162 QRS: -3 QRSD: 85 T: 4 QT: 392 QTc: 424 Interpretive Statements SINUS RHYTHM Compared to ECG 02/09/2025 10:36:16 No significant changes Electronically Signed On 02-09-2025 18:11:17 CDT by Miguel Kwon
--- OUTSIDE RECORDS SUMMARY | 2025-02-09 14:30 | XMS_ITS | Continuity of Care Document ---
Author Organization [facility]. If a dditional information is needed, contact Health Information Management at [phone] Address [address] [place] [address] Phone Care Team Providers Care Test Deck Supervisor Name Role Phone Unavailable Unavailable Unavailable Unavailable Unavailable Unavailable Unavailable Unavailable Unavailable Problems Tongue swelling Onset:01-Mar-2023 Lorna Meghan A CUPOLA OPERATOR Allergic reaction Onset:01-Mar-2023 Lorna Meghan A CUPOLA OPERATOR Allergies and Adverse Reactions naproxen(Allergy) Onset: 01-Mar-2023 Reaction:ITCHING Nitrofurantoin(Allergy) Onset: 01-Mar-2023 Reaction:ITCHING Amoxicillin(Allergy) Onset: 01-Mar-2023 Reaction:ITCHING PENCILLIN(Allergy) Onset: 01-Mar-2023 Reaction:UNKNOWN Social History Smoking Status Ex-smoker Recorded: 01-Mar-2023
--- OUTSIDE RECORDS SUMMARY | 2025-02-09 14:30 | XMS_ITS | Referral Summary ---
Author Organization [facility] Address [address] [place] [address] Care Team Providers Care Chocolate Finisher Name Role Phone Sabino Luke MD Unavailable [phone] Kathya Orona DO Primary Care Provider [phone] Encounters Date Type Department Care Team Description 12/18/2024 [facility] Advanced [facility] ([facility]) - [facility] Minimally Invasive Surgery [address] [facility] [address], [place] [address] Nataliya Su from Last 3 [...] 1 tablet (10 mg total) by mouth extender before breakfast 30 tablet 4 Active fluticasone [...] 1 tablet (10 mg total) by mouth extender before breakfast 30 tablet 4 Active cyclobenzaprine (FLEXERIL) 10 mg tabletIndicatio ns:Muscle Spasm Take 1 tablet (10 mg total) by mouth 2 (two) times a day as needed for muscle spasms 30 tablet 4 Active hydroCHLOROthia zide (HYDRODIURIL) 25 mg tabletIndicatio ns:hypertension Take 1 tablet (25 mg total) by mouth extender before breakfast 30 tablet 4 Active sertraline [...] on file Legal Sex Female 8:15 AM PRODUCT MGMT DEV MANAGER Gender Identity Not on file Sexual Orientation Not on file Occupation Industry Job Start Date Job End Date Disability Not on file Not on file Not on file Last Filed Vital Signs Vital Sign Reading Time Taken Comments Blood Pressure 130/86 07/03/2024 10:53 AM PRODUCT MGMT DEV MANAGER Pulse 85 07/03/2024 10:53 AM PRODUCT MGMT DEV MANAGER Temperature 36.6 C (97.9 F) 07/03/2024 10:53 AM PRODUCT MGMT DEV MANAGER Respiratory Rate 16 07/03/2024 10:53 AM PRODUCT MGMT DEV MANAGER Oxygen Saturation 97% 07/03/2024 10:53 AM PRODUCT MGMT DEV MANAGER Inhaled Oxygen Concentration - - Weight 68.5 kg (151 lb) 07/03/2024 10:53 AM PRODUCT MGMT DEV MANAGER Height 157.5 cm (5' 2) 07/03/2024 10:53 AM PRODUCT MGMT DEV MANAGER Body Mass Index 27.62 07/03/2024 10:53 AM PRODUCT MGMT DEV MANAGER Plan of Treatment Not on file Goals [...] home safety. Medical Devices Implanted Type Area Coke Still Cleaner Device Identifier Shelf Expiration Date Model / Serial / Lot [employer]/C R Bard [id number] Monofilament Soft Lightweight Low Profile Square - [id number] - [id number] Implanted:Qty: 1 on 05/11/2024 by Sabino Luke MD at [facility] Mesh N/A: Abdomen [employer]/C R Bard [id number] 11/06/2028 [id number] / [id number] / [id number] Insurance [facility] MEDICARE ADVANTAGE [facility] Address: [address] [address] [place] [address] [facility] MEDICARE ADVANTAGE IDPA [facility] MEDICARE ADVANTAGE [facility] Address: [address] [address] [place] [address] [employer] Advance Directives For more information, please contact: [phone] * Full Code (Latest Code Status on File) Date Activated Date Inactivated Comments 05/11/2024 8:24 PM 05/19/2024 3:53 PM Care Teams Chocolate Finisher Relationship Specialty Start Date End Date Kathya Orona DO [facility] [address] [address] PCP - General Family Medicine 05/12/24 Sabino Luke MD [address] [place] [address] Referring Physician General Surgery 12/06/23
--- OUTSIDE RECORDS SUMMARY | 2025-02-09 14:30 | XMS_ITS ---
Author Organization [facility] Address [address] [place] [address] Care Team Providers Care Lockmaker Name Role Phone Sabino Luke MD Unavailable [phone] Kathya Orona DO Primary Care Provider [phone] Active Problems Problem Noted Date Diagnosed Date [...]
--- OUTSIDE RECORDS SUMMARY | 2025-02-09 14:30 | XMS_ITS | Clinical Summary ---
Author Organization [facility] Address [address] [place] [address] Care Team Providers Care Supervisor Vegetable Farming Name Role Phone Sabino Luke MD Unavailable [phone] Kathya Orona DO Primary Care Provider [phone] Allergies Active Allergy Reactions Criticality Noted Date [...] 1 tablet (10 mg total) by mouth patcher wood welder before breakfast 30 tablet 4 Active [...] 1 tablet (10 mg total) by mouth patcher wood welder before breakfast 30 tablet 4 Active cyclobenzaprine (FLEXERIL) 10 mg tabletIndicatio ns:Muscle Spasm Take 1 tablet (10 mg total) by mouth 2 (two) times a day as needed for muscle spasms 30 tablet 4 Active hydroCHLOROthia zide (HYDRODIURIL) 25 mg tabletIndicatio ns:hypertension Take 1 tablet (25 mg total) by mouth patcher wood welder before breakfast 30 tablet 4 Active [...] Date Type Department Care Team Description 12/18/2024 [facility] - [facility] Minimally Invasive Surgery [address] [facility] [address], [place] [address] Nataliya Su from Last 3 [...] on file Legal Sex Female 8:15 AM CANDY PULLER Gender Identity Not on file Sexual Orientation Not on file Occupation Industry Job Start Date Job End Date Disability Not on file Not on file Not on file Obstetrics History Last Filed Vital Signs Vital Sign Reading Time Taken Comments Blood Pressure 130/86 07/03/2024 10:53 AM CANDY PULLER Pulse 85 07/03/2024 10:53 AM CANDY PULLER Temperature 36.6 C (97.9 F) 07/03/2024 10:53 AM CANDY PULLER Respiratory Rate 16 07/03/2024 10:53 AM CANDY PULLER Oxygen Saturation 97% 07/03/2024 10:53 AM CANDY PULLER Inhaled Oxygen Concentration - - Weight 68.5 kg (151 lb) 07/03/2024 10:53 AM CANDY PULLER Height 157.5 cm (5' 2) 07/03/2024 10:53 AM CANDY PULLER Body Mass Index 27.62 07/03/2024 10:53 AM CANDY PULLER Plan of Treatment Health Maintenance Due Date [...] home safety. Medical Devices Implanted Type Area Manager Transit Device Identifier Shelf Expiration Date Model / Serial / Lot [employer] Inc/C R Bard [id number] Bard [id number] Monofilament Soft Lightweight Low Profile Square - [id number] - [id number] Implanted:Qty: 1 on 05/11/2024 by Sabino Luke MD at [facility] Mesh N/A: Abdomen [employer]/C R Bard [id number] 11/06/2028 [id number] / [id number] / [id number] Insurance [facility] MEDICARE ADVANTAGE [facility] MEDIC[facility] ADVANTAGE [employer] [facility] MEDIC[facility] ADVANTAGE [employer] Advance Directives For more information, please contact: [phone] * Full Code (Latest Code Status on File) Date Activated Date Inactivated Comments 05/11/2024 8:24 PM 05/19/2024 3:53 PM Care Teams Supervisor Vegetable Farming Relationship Specialty Start Date End Date Kathya Orona DO [address] [facility] [place] [address] [address] PCP - General Family Medicine 05/12/24 Sabino Luke MD [address] [place] [address] Referring Physician General Surgery 12/06/23
[2025-02-09 14:49] VITALS: BP 142/92; PULSE 70; RESP 13; O2SAT 100
[2025-02-09] MEDS: CENTRAL LINE FLUSH 10 ML IV PUSH (15:06)
[2025-02-09 15:15] LABS: Troponin I < 0.012 ng/mL (0.000-0.034)
[2025-02-09 15:52] VITALS: BP 128/88; PULSE 73; RESP 16; O2SAT 98
[2025-02-09 16:44] VITALS: BP 132/80; PULSE 73; RESP 21; TEMP 36.5; O2SAT 99
== END 2025-02-09 16:47 | disposition home or self-care (01) ==
PROVIDERS: Emergency Medicine; Emergency Provider Student in an Organized Health Care Education/Training Program; PCP Family Medicine
DX: R07.2 Precordial pain (principal); R06.02 Shortness of breath; I10 Essential (primary) hypertension; I27.20 Pulmonary hypertension, unspecified; E11.9 Type 2 diabetes mellitus without complications; E78.00 Pure hypercholesterolemia, unspecified; E89.0 Postprocedural hypothyroidism; J45.909 Unspecified asthma, uncomplicated; K44.9 Diaphragmatic hernia without obstruction or gangrene; K21.9 Gastro-esophageal reflux disease without esophagitis; M19.90 Unspecified osteoarthritis, unspecified site; F32.A Depression, unspecified; F41.9 Anxiety disorder, unspecified; Z98.1 Arthrodesis status; Z85.07 Personal history of malignant neoplasm of pancreas; Z87.891 Personal history of nicotine dependence; Z90.710 Acquired absence of both cervix and uterus; Z79.84 Long term (current) use of oral hypoglycemic drugs; Z79.899 Other long term (current) drug therapy
CPT/HCPCS: 36415; 71046; 78582; 80053; 83690; 83880; 84484; 85025; 85610; 85730; 93005; 99284; A9540; A9558; J1642

== ENCOUNTER 2025-03-01 09:19 | Outpatient (CLI) | payer MEDICARE, MEDICAID, SELFPAY ==
--- NOTE | ~2025-03-01 | DEXA_ITS ---
Bone Density Report Name: ZACHARIAH HARDIN Age: 69 Sex: Female Ethnicity: Black Date of : 1955 Indication: postmenopausal; screening for osteoporosis; cancer; asthma or emphysema; hysterectomy; Referring Provider: JERAD ZAMORA Study: Bone densitometry was performed. Exam Date: March 01, 2025 Accession number: [id number] Bone Density: Region BMD T-score Z-score Classification AP Spine(L1-L4) 1.160 1.0 2.5 Normal Femoral Neck (Left) 0.846 0.0 0.7 Normal Total Hip (Left) 1.093 1.2 1.6 Normal Femoral Neck (Right) 0.879 0.3 1.0 Normal Total Hip (Right) 1.103 1.3 1.6 Normal Total Hip Mean 1.098 1.3 1.6 Normal World Health Organization criteria for BMD impression classify patients as: Normal (T-score at or above -1.0), Osteopenia (T-score between -1.0 and -2.5), or Osteoporosis (T-score at or below -2.5). 10-year Fracture Risk: FRAX not reported because: All T-scores for Spine Total, Hip Total, Femoral Neck at or above -1.0 Previous Exams: Region Exam Age BMD T-score BMD Change BMD Change Date g/cm2 vs Baseline vs Previous Total Hip(Left) 03/01/2025 69 1.093 1.2 0.088 (8.7%)* 0.088 (8.7%)* 04/20/2020 64 1.005 0.5 Total Hip(Right) 03/01/2025 69 1.103 1.3 0.093 (9.2%)* 0.093 (9.2%)* 04/20/2020 64 1.010 0.6 *Denotes significance at 95% confidence level, LSC for Total Hip = 0.027 g/cm2 Clinical Information Provided by Patient: Has used the following medications: Vitamin D Has the following medical conditions: Asthma or Emphysema, Cancer, Hysterectomy Patient maximum height was 62 Menopause Age: 45 No regular weight bearing exercise Drinks caffeinated beverages Onset of menses at age 12 Number of children 2 Impression: The patient has normal bone mass. No significant bone loss was observed. Discussion: BONE DENSITY IS ABOVE THE MINIMUM DESIRABLE LEVEL AT ALL SKELETAL SITES TESTED. This patient?s bone mineral density is above the minimum desirable level (T-score -1.0 or better) at all sites measured. The patient should follow a healthful lifestyle (good nutrition with adequate calcium and vitamin D, and appropriate weight-bearing exercise). Follow-Up: Consider repeating this study in 5 years or sooner if there is some new clinical indication. Reported by: ARIELLA on 03/01/2025 10:11:00 AM. Reviewed, dictated and finalized at location A.
--- NOTE | ~2025-03-01 | MM_ITS ---
EXAMINATION: MM screening [facility] BI w grady HISTORY: Screening TECHNIQUE: Craniocaudal and mediolateral oblique 3-D tomosynthesis images were obtained and synthetic 2-D images were generated. CAD analysis was submitted and interpreted. COMPARISON: Comparison to multiple prior studies sequentially, with oldest reviewed study dated 09/05. BREAST PARENCHYMAL COMPOSITION: There are scattered areas of fibroglandular density. FINDINGS: There is no evidence of suspicious mass, calcification, or architectural distortion to sug gest malignancy in either breast. Bilateral breast circumscribed masses reidentified unchanged. IMPRESSION: 1. No mammographic evidence of malignancy. 2. Recommend routine screening mammography in one year. BI-RADS Category 2: Benign finding(s). Reviewed, dictated and finalized at location B.
--- OUTSIDE RECORDS SUMMARY | 2025-03-01 09:24 | XMS_ITS | Clinical Summary ---
Author Organization [facility] Address [address] [place] [address] Phone Care Team Providers Care Manager Learning Name Role Phone GamalloydKathya dick Primary Care Provider +1- [phone] Allergies Active Allergy Reactions Criticality Noted Date [...] Anxiety. Active fluticasone propionate (FLONASE) 50 mcg/spray [place], Suspension nasal inhaler Administer 2 Sprays in [...] daily. liquid Active naloxone (NARCAN) 4 mg/spray [place], Non-Aerosol EMERGENCY USE ONLY: Administer 1 spray [...] Type Department Care Team Description 12/06/2024 Refill [facility] Oncology and Hematology [facility] [address] [place] [address] Royal Newell MD 11/30/2024 11:00 AM CDT Office Visit [facility] Oncology and Hematology [facility] [address] [place] [address] Bernie Gil MD Ampullary carcinoma (CMS/HCC) (Primary Dx) from [...] Description 03/09/2025 2:15 PM CDT Office Visit [facility] Oncology and Hematology - [place] [address] [facility] [address] [place] [address] Royal Newell MD [address] [facility] [address] [place] [address] Health Maintenance Due Date Last [...] Q 6 MONTHS 10/14/2024 04/16/2024 INFLUENZA VACCINE (#1) 2025 4, 05/28/2018, 06/25/2017 Medical Devices Implanted Type Area Jacquard Plate Maker Device Identifier Shelf Expiration Date Model / Serial / Lot Clip Ligating Horizon Lg Ti [id number] - [facility] [place] [id number] Implanted:Qty : 1 on 12/29/2021 by Phil Mejia MD at [facility] Clip N/A: Abdomen TELEFLEX- WECK CLOSURE SYS [id number] / / Clip Ligating Horizon Ti Sm 24 Rp - [id number] Implanted:Qty : 2 on 12/29/2021 by Phil Mejia MD at [facility] Clip N/A: Abdomen TELEFLEX- WECK CLOSURE SYS 196258 RP / / Tube Feed Kangaroo 5fr 16in [id number] - [id number] Implanted:Qty : 1 on 12/29/2021 by Phil Mejia MD at [facility] Feeding Device N/A: Abdomen CARDINAL - PATIENT RECOVERY [id number] / / Description:INSERTED INTO PA NCREATIC DUCT Tube Feed [place] [id number] - [id number] Implanted:Qty : 1 on 12/29/2021 by Phil Mejia MD at [facility] Feeding Device N/A: Abdomen CARDINAL - PATIENT RECOVERY 04/11/2026 [id number] / / [id number] Description:WRAPPER CHECKED BY R.N. 01/01/22 Hemostat Surg Snow 2x4in 2081 - [id number] Implanted:Qty : 1 on 12/29/2021 by Phil Mejia MD at [facility] Hemostatic N/A: Abdomen J[employer]J- [employer] 09/11/2023 2082 / / [id number] Sealant Fibrin Vistaseal 10ml Vst10 - [id number] Implanted:Qty : 1 on 12/29/2021 by Phil Mejia MD at [facility] Sealant N/A: Abdomen J[employer]J- [employer] 02/07/2023 VST10 / [id number] / [id number] Description:BOX CHECKED BY R .N. 01/01/2022 Stent Pncrtc Geenen 7fr 9cm [id number] - [id number] Implanted:Qty : 1 on 05/25/2021 by Omar Gonzalez MD at [facility] Stent COOK- SUSAN - HALINA-RAYSHAWN [id number] 09/12/2023 [id number] / / [id number] Stent Bili Wallflex Rx 10x40 [id number] - [id number] Implanted:Qty : 1 on 05/25/2021 by Omar Gonzalez MD at [facility] Stent [employer] [id number] 02/13/2023 [id number] / / [id number] Insurance [facility] [id number] MEDICAID [place] RX OPTUM RX Member Subscriber Plan / Payer (Ef fective 2017-Present) Name:Krissy Oneal Relation to Subscriber:Self Name:Krissy Oneal Payer ID:Not on file Group ID:[id number] Type:RX Medicare Part D Address: [address] RX [employer] (INTERNAL) [facility] [id number] MEDICAID [place] Advance Directives For more information, please contact: [phone] * Full Code (Latest Code Status on File) Date Activated Date Inactivated Comments 12/29/2021 8:18 PM 01/08/2022 8:26 PM * Full Code Date Activated Date Inactivated Comments 12/29/2021 5:49 AM 12/29/2021 8:17 PM * Full Code Date Activated Date Inactivated Comments 05/25/2021 12:46 PM 06/01/2021 9:14 PM * Full Code Date Activated Date Inactivated Comments 05/24/2021 5:14 AM 05/25/2021 12:46 PM Care Teams Manager Learning Relationship Specialty Start Date End Date Kathya Orona DO [address] [facility] [place] [address] [place] [address] PCP - General Family Practice 05/07/24
--- OUTSIDE RECORDS SUMMARY | 2025-03-01 09:24 | XMS_ITS ---
Author Organization [facility] Address [address] [place] [address] Phone Care Team Providers Care Carding Supervisor Name Role Phone Kathya Orona Primary Care Provider +1- [phone] Active Problems Problem Noted Date Diagnosed Date [...]
--- OUTSIDE RECORDS SUMMARY | 2025-03-01 09:24 | XMS_ITS | Continuity of Care Document ---
Author Organization [facility]. If a dditional information is needed, contact Health Information Management at [phone] Address [address] [place] [address] Phone Care Team Providers Care Fleet Service Clerk Name Role Phone Unavailable Unavailable Unavailable Unavailable Unavailable Unavailable Unavailable Unavailable Unavailable Problems Tongue swelling Onset:01-Mar-2023 [place] Meghan A [employer]AGE L[employer]ER Allergic reaction Onset:01-Mar-2023 [place] Meghan A M[employer]ER Allergies and Adverse Reactions naproxen(Allergy) Onset: 01-Mar-2023 Reaction:ITCHING Nitrofurantoin(Allergy) Onset: 01-Mar-2023 Reaction:ITCHING Amoxicillin(Allergy) Onset: 01-Mar-2023 Reaction:ITCHING PENCILLIN(Allergy) Onset: 01-Mar-2023 Reaction:UNKNOWN Social History Smoking Status Ex-smoker Recorded: 01-Mar-2023
--- OUTSIDE RECORDS SUMMARY | 2025-03-01 09:25 | XMS_ITS | Data Portability ---
Author Organization [place] [facility], Main Office Address [address] [place] [address] Assessment Encounter Date Assessment Date Assessment LastModified by Organization Details LastModified Time 02/18/2025 02/18/2025 Assessment: Nicotine smoke: / ppd [id number] = 15 pack years Mod COPD Bilateral pulmonary nodules Atelectasis Plan: The following were reviewed and explained to the patient: primary care/referral note V/Q scan 02/09/25 low probability for P. E. Chest CT 08/19/23 up to 8 mm bilateral pulmonary nodules Chest CT 11/23/24 up to 9 mm bilateral pulmonary nodules PFT 10/21/24 FEV1 1.00 L (57%), TLC 3.95 L (95%), RV 2.04 L (104%), DLCO 41%, DLCO/VA 79% 2-D echocardiogram 01/26/25 EF 60%, PASP 38 mmHg Sniff test 11/12/24 chronic right hemidiaphragm elevation but normal test, mild atelectasis Pulmonary rehabilitation may be included in the management of patients with chronic obstructive pulmonary disease (COPD). For respiratory diseases different from COPD, there have been no formal statements regarding patient selection. Pulmonary rehabilitation consists of assessment, exercise, education, and emotional support. It covers the goals of rehabilitation, the techniques of breathing, the necessity of nicotine cessation, the strategies to deal with panic attacks, the rationale of pulmonary medications, and the importance of nutrition. As the patient learns to live with her pulmonary condition through exercise and education, the patient will regain confidence with her abilities and feel improvement in her overall quality of life. The patient's FEV1 is 57%. The patient will be enrolled in pulmonary rehabilitation pending insurance coverage. General concepts of pulmonary rehabilitation were explained. Educational video was shown. Cough/Dyspnea workup will be done as follows: Respiratory allergen panel for [facility] Serum IgE Serum total IgG, IgG1, IgG2, IgG3, IgG4 Rjolp-0-eguttqatvu n phenotype and level TB stimulated gamma interferon B-type natriuretic peptide (BNP) Eosinophil count Advised to continue not to smoke. Continue albuterol HFA as needed. Continue Trelegy Ellipta 100/62.5/25 mcg 1 inhalation daily. Gargle after use. The patient does not know how to accurately administer the inhaler. Today, the patient was shown how to take this medication. The proper technique for delivering this medication was instructed. The patient expressed a clear understanding and demonstrated back how to use this medication. Without the proper technique, the patient will not reap the benefits of the treatment as the contents of the inhaler will not reach the lower airways as intended to be. Adherence to therapy is advocated. Nonadherence may lead to treatment failure, further progression of the condition, and other complications. Hospitals admissions are often the result of individuals not taking prescription medications accurately. Alternatively, greater adherence to medication regimens have shown to lower rates of hospitalization and decrease total medical costs in patients with chronic medical conditions. Advocated influenza vaccination annually and pneumonia vaccination COLLEEN. Advocated weight loss through diet and exercise. Patient's ideal body weight according to height and gender is up to 120 lbs. Encouraged patient to adjust caloric intake to maintain/achieve ideal body weight, emphasizing on fruits, vegetables, whole grains, and fat-free or low-fat products. These include lean meats, poultry, fish, beans, eggs, and nuts and foods that are low in saturated fats, trans-fats, cholesterol, salt (sodium), and glycemic index. Stressed the importance of regular exercise up to the patient's capacity limits. In this case, we recommend 20 min daily walking, 2 days a week of resistance training. Patient to monitor BP daily and bring records to PCP for further management. Follow-up: 3 weeks [email or web address] Not available 02/20/2025 15:08:52 Plan of Treatment Reminders Order Date Submit Date Provider Last Modified By Organization Details Last Modified Time Details Appointments Any 15 2024 01:30P Leonid Stearns MD Not available Not available Not available Lab alpha-1-a ntitrypsi n (aat) phenotype , serum 2024 025 [id number] 2 [facility], [address], [place], [address], 02/25/2025 17:14:29 BNP (B-type natriuret ic peptide), serum or plasma 2024 025 2 [facility], [address], [place], [address], 02/25/2025 17:14:42 ige, total, serum 2024 025 [id number] 2 [facility], [address], [place], [address], 02/25/2025 17:14:54 tb (M tuberculo sis), ifn-gamma uma, blood 2024 025 [id number] 2 [facility], [address], [place], [address], 02/25/2025 17:15:[address] 1+2+3+4, serum 2024 025 [id number] 2 [facility], [address], [place], [address], 02/25/2025 17:15:16 respirato ry allergen panel, [facility] A, serum 2024 025 [id number] 2 [facility], [address], [place], [address], 02/25/2025 17:15:28 respirato ry allergen panel - [facility] b 2024 025 [id number] 2 [facility], [address], [place], [address], 02/25/2025 17:15:40 eosinophi ls, quant, blood 2024 025 [email or web address] 2 [facility], [address], [place], [address], 02/25/2025 17:15:54 pro BNP (pro B-type natriuret ic peptide), serum or plasma 2024 025 [id number] 2 [facility], [address], [place], [address], 02/25/2025 17:16:06 alpha-1-a ntitrypsi n (aat), QN, serum 2024 025 [id number] 2 [facility], [address], [place], [address], 02/25/2025 17:16:17 HbA1c (hemoglob in A1c), blood 2023 024 [facility], [address], [place], [address], 10/16/2023 14:51:44 hemoglobi n A1C, fingersti ck [address], [place], [address], 07/17/2023 11:56:57 hemoglobi n A1C, fingersti ck [address], [place], [address], 04/01/2023 12:50:52 Referral pulmonary rehab referral - Please call patient to schedule. 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 Surgeries None recorded. Imaging None recorded. Medication Orders albuterol sulfate HFA 90 mcg/actua tion aerosol inhaler 2024 025 [facility], [address] [facility], [place], [address], 02/18/2025 16:03:11 Trelegy Ellipta 100 mcg-62.5 mcg-25 mcg powder for inhalatio n 2024 025 [facility]EF[facility], [address], [place], [address], 02/18/2025 16:03:08 metformin ER 500 mg 24 hr tablet,ex tended release (gastric retention ) 2022 023 [id number] [facility] [facility], [address], [place], [address], 07/22/2023 10:42:15 Januvia 100 mg tablet 2022 023 [facility], [address], [place], [address], 02/18/2025 15:06:29 metformin ER 500 mg 24 hr tablet,ex tended release (gastric retention ) 2022 023 [email or web address] [facility] [address] [facility], [address] [facility], [place], [address], 07/22/2023 10:42:15 Patient TargetsNo targets recorded. 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 Referring Physician: Pedro Pablo Stearns, Pulmonary Disease, Encounter Date: 02/18/2025 Results Created Date Observation Date Name Description Value Unit Range Abnormal Flag Note LastModifiedBy Organization Detail LastModifiedTime 04/01/20 23 04/01/2023 hemog lobin A1C, finge rstic k HgbA1C 14 Not Available [address], [place], [address], 04/01/2023 12:27:07 07/17/20 23 07/17/2023 hemog lobin A1C, finge rstic k HgbA1C 7.3% Not Available [address], [place], [address], 07/17/2023 11:45:37 05/10/20 23 05/10/2023 CT, abdom en + pelvi s, w/ contr ast No observ ation record ed. [address], [address], 05/14/2023 09:26:03 05/28/20 23 05/28/2023 PET, skull base to mid-t high No observ ation record ed. [address], [address], 05/29/2023 12:47:13 07/23/20 23 07/23/2023 MRI, abdom en, w/o contr ast No observ ation record ed. [address], [address], 08/21/2023 16:04:02 08/19/19 24 08/19/2023 CT, abdom en + pelvi s, w/ contr ast No observ ation record ed. [address], [place], [address], 08/21/2023 16:04:03 09/06/19 24 09/06/2023 MRI, brain + brain stem, w/wo contr ast No observ ation record ed. [email or web address] [place] [id number] [facility] [address], [place], [address], 09/10/2023 12:14:57 11/19/19 24 11/19/2023 PET, brain scan, metab olic evalu ation No observ ation record ed. [email or web address] [place], [place] [id number] [facility] [address], [place], [address], 11/21/2023 10:45:08 02/16/20 25 02/09/2025 NM, lung scan, venti latio n/per fusio n No observ ation record ed. BARCODE Not Available 2024 17:50:22 02/16/20 25 11/23/2024 CT, angio gram, chest + abdom en + pelvi s, w/ contr ast No observ ation record ed. BARCODE Not Available 2024 18:20:51 02/16/20 25 10/21/2024 compl ete PFT w/ post [facility] hodil ator chu metry * No observ ation record ed. BARCODE Not Available 2024 18:20:51 02/27/20 25 11/12/2024 Sniff Nasal Inspi rator y press ure* No observ ation record ed. BARCODE Not Available 2024 11:38:39 02/27/20 25 01/26/2025 US, doppl er echoc ardio gram No observ ation record ed. BARCODE Not Available 2024 11:44:06 Result Notes None recorded. Problems Name Problem SNOMED Code Status Onset Date Resolution Date Notes Provider Name and Address Organization Details Recorded Time Depressive disorder 68786438 Active Pedro Pablo Stearns MD [address], [address], [place], [address], [place] [facility] 08:07:59 Neuropathy 642210803 Active Pedro Pablo Stearns MD [address], [address], [place], [address], [employer] [facility] [employer] 5 08:07:54 Anxiety 44384938 Active Pedro Pablo Stearns MD [address], [address], [place], [address], [employer] [facility] 5 08:08:03 Hyperlipidemia 02114517 Active Pedro Pablo Stearns MD [address], [address], [place], [address], [employer] [facility] [employer] 5 08:07:56 Allergic rhinitis 84414627 Active Pedro Pablo Stearns MD [address], [address], [place], [address], [employer] [facility] [employer] [employer] 5 08:08:06 Essential hypertension 19138769 Active 2022 Pedro Pablo Stearns MD [address], [address], [place], [address], [employer] [facility] [employer] 5 08:07:57 COVID-19 707989333 Active 2022 Nancy Ashford MD [address], [address], [place], [address], [employer] [facility] [employer] 3 11:37:11 Type 2 diabetes mellitus 70354681 Active 2023 Pedro Pablo Stearns MD [address], [place], [address], [employer] [facility] [employer] 5 08:07:52 Moderate chronic obstructive pulmonary disease 219632798 Active 2024 Pedro Pablo Stearns MD [address], [place], [address], [employer] [facility] [employer] 5 15:44:41 Notes:Medical History: Anxie ty/Depression COVID infection Rhinitis IgE 57 IU/mL Mod COPD, exertional O2 c/o [place] Home Patient Chronic right hemidiaphragm elevation Atelectasis PASP 38 mmHg Hypertension EF 60% Hyperlipidemia T2DM with neuropathy LAMBERTO 1:40 Bilateral pulmonary nodules Hiatal hernia with KIMMY H. 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 Medical Equipment None Reported. Allergies Allergen ID Allergen Name Allergen Category Reaction Reaction Severity Criticality Documentation Date Start Date Code Code System Note Provider Name and Address Organization Details Recorded Time Substance with sulfonami de structure and antibacte rial mechanism of action (substanc e) medicatio n dizziness Not available Not available 10/10/2022 63904 8003 SNOMED Not Available [facility] 3 08:53:14 94461 Product containin g penicilli n (product) medicatio n itching Not available Not available 10/10/2022 56753 8001 SNOMED Not Available [facility] 3 08:53:14 03162 erythromy rae medicatio n Not available Not available Not available 10/10/2022 4053 RxNorm BERTA Ortez, [facility] 5 15:04:15 96924 amoxicill in medicatio n itching Not available Not available 10/10/2022 723 RxNorm Not Available [facility] 3 08:53:14 01020 Medicinal product containin g macrolide and acting as antibacte rial agent (product) medicatio n itching Not available Not available 02/15/2025 36415 8007 SNOMED Pedro Pablo Stearns MD [address], [address], [place], [address], [facility] [employer] [facility] 5 13:06:42 87805 naproxen medicatio n rash Not available Not available 02/15/2025 7258 RxNorm Pedro Pablo Stearns MD [address], [place], [address], [facility] [employer] [facility] 5 13:08:09 86853 Iodinated contrast media (substanc e) medicatio n hives Not available Not available 02/15/2025 05063 2004 SNOMED Pedro Pablo Stearns MD [address] [facility] [address], [place], [address], [facility] [employer] [facility] 5 13:08:53 21298 iohexol medicatio n itching Not available Not available 02/15/2025 5956 RxNorm Pedro Pablo Stearns MD [address] [facility], [address] [address], [place], [address], [facility] [employer] [facility] 5 13:09:25 47338 gadobenic acid Not available itching Not available Not available 02/15/2025 46832 UNK Pedro Pablo Stearns MD [address] [facility], [address] [address], [place], [address], [facility] [employer] [facility] 5 13:09:36 Medications Name Sig Start Date Stop Date Status Note LastModified by Organization Details LastModified Time accu-chek guide w/device kit 02/15 completed Not Available Not Available Not Available tetracycl ine 500 mg capsule 11/16 completed Not Available Not Available Not Available cyclobenz aprine 10 mg tablet TAKE 1 TABLET BY MOUTH ONCE DAILY 02/18 completed Not Available Not Available Not Available fluconazo le 100 mg tablet 11/16 completed Not Available Not Available Not Available metformin 500 mg tablet TAKE 1 TABLET BY MOUTH TWICE A DAY 02/18 completed Not Available Not Available Not Available Xanax [...] TAKE 1 TABLET BY MOUTH EVERY DAY 02/18 completed Not Available Not Available Not Available ondansetr on HCl 4 mg tablet [...] Lancets USE DIRECTED . TEST ONCE DAILY 02/15 completed Not Available Not Available Not Available metronida zole 500 mg tablet 07/17 completed Not Available Not Available Not Available amlodipin e 5 mg tablet Take by oral route. active Not Available Not Available No t Available prochlorp erazine maleate 10 mg tablet [...] release TAKE 1 CAPSULE BY MOUTH DAILY 02/18 completed Not Available Not Available Not Available tramadol 50 mg tablet 11/07 completed [...] 80 mg/mL suspensio n for injection active [facility]#[id number] Not Available Not Available Not Available oxycodone -acetamin ophen 5 mg-325 mg tablet TAKE 1 TABLET BY MOUTH EVERY 12 HOURS NEEDED FOR PAIN, SEVERE 02/18 completed Not Available Not Available Not Available potassium chloride ER 20 mEq tablet,ex tended release(p art/cryst ) TAKE 1 TABLET BY MOUTH DAILY active Not Available Not Available No t Available dicyclomi ne 20 mg tablet TAKE 1 TABLET BY MOUTH TWICE A DAY active Not Available Not Available No t Available amlodipin e 10 mg tablet TAKE 1 TABLET BY MOUTH DAILY 02/18 completed Not Available Not Available Not Available cephalexi n 500 mg capsule 06/08 [...] mg tablet TAKE 1 TABLET BY MOUTH [address] SCAN, [address] SCAN, AND [address] SCAN. 02/18 completed Not Available Not Available Not Available monteluka st 10 mg tablet 02/18 completed Not Available Not Available Not Available hydrochlo [...] 4 mg tablets in a dose pack TAKE 6 TABLETS ON DAY 1 DIRECTED ON PACKAGE AND DECREASE BY 1 TAB EACH DAY FOR A TOTAL OF 6 DAYS 02/18 completed Not Available Not Available Not Available albuterol sulfate HFA 90 mcg/actua tion aerosol inhaler Inhale 1 puff every 4 hours by inhalati on route as needed. 2024 active Not Available Not Available Not Avai lable Zoloft 25 mg tablet Take 1 tablet every day by oral route. active Not Available Not Available No t Available ondansetr on 4 mg disintegr ating tablet PLEASE SEE ATTACHED FOR DETAILED DIRECTIO NS 02/15 completed Not Available Not Available Not Available losartan 100 mg tablet TAKE 1 TABLET BY MOUTH EVERY DAY 02/18 completed Not Available Not Available Not Available fluticaso ne propionat e 50 mcg/actua tion nasal spray,karin pension SPRAY ONE SPRAY INTO EACH NOSTRIL EVERY 12 HOURS 07/17 completed Not Available Not Available Not Available metformin ER 500 mg tablet,ex tended release 24 hr TAKE 1 TABLET BY MOUTH TWICE A DAY active Not Available Not Available No t Available sertralin e 50 mg tablet TAKE 1 TABLET BY MOUTH ONCE DAILY active Not Available Not Available No t Available doxycycli ne hyclate 100 mg tablet TAKE 1 TABLET BY MOUTH TWICE A DAY 02/18 completed Not Available Not Available Not Available [...] DAY BY TOPICAL ROUTE FOR 30 DAYS. 02/15 completed Not Available Not Available Not Available omeprazol e 10/15 completed Not Available Not Available Not Available ondansetr on 10/15 completed prior to belkis n Not Available Not Available Not Available metformin ER 500 mg 24 hr tablet,ex tended release (gastric retention ) Take 2 tablets every day by oral route for 30 days. 07/22 completed Not Available Not Available Not Available Januvia 100 mg tablet Take 1 tablet every day by oral route in the morning for 30 days. 02/18 completed Not Available Not Available Not Available hydrochlo rothiazid e 12.5 mg tablet Take 1 tablet every day by oral route. 2012 active Not Available Not Available Not Avai lable Symbicort 160 mcg-4.5 mcg/actua tion HFA aerosol inhaler 10/15 completed Not Available Not Available Not Available budesonid e-formote rol HFA 80 mcg-4.5 mcg/actua tion aerosol inhaler INHALE 2 PUFFS BY MOUTH EVERY 12 HOURS 02/18 completed Not Available Not Available Not Available [...] BY MOUTH 3 TIMES DAILY WITH MEALS. 02/18 completed Not Available Not Available Not Available Prevnar 13 (PF) 0.5 mL intramusc [...] Available naloxone 4 mg/actuat ion nasal spray 02/15 completed Not Available Not Available Not Available Accu-Chek Guide test strips USE DIRECTED . TEST ONCE DAILY 02/15 completed Not Available Not Available Not Available Accu-Chek Guide Glucose Meter USE DIRECTED TO TEST ONCE DAILY 02/15 completed Not Available Not Available Not Available Trelegy Ellipta 100 mcg-62.5 mcg-25 mcg powder for inhalatio n Inhale 1 puff every day by inhalati on route. 2024 active Not Available Not Available Not Avai lable Fluad 2018- 65yr up(PF)45 mcg(15 mcgx3)/0. 5 mL intramusc [...] in Arterial blood by Pulse oximetry Systolic And Diastolic Provider Name and Address Organization Details Last Updated DateTime 4 157.48 cm 28.3 kg/m2 00686.8 2 g 16 /min 97.3 [degF] 83.99 /min 98 % 98 % 124/86 mm[Hg] Merna Hernandez RN [place] [employer] [facility] 4 11:14:22 Date Recorded Oxygen saturation Oxygen saturation in Arterial blood by Pulse oximetry Body mass index (BMI) Body height Heart rate Respiratory rate Provider Name and Address Organization Details Last Updated DateTime 5 97 % 97 % 27.3 kg/m2 156.21 cm 83 /min 15 /min Pedro Pablo Stearns MD [address] [place] [address], [facility] [address], [place], [address], [place] [employer] [facility] 5 15:26:32 Date Recorded Body weight Body temperature Heart rate Systolic And Diastolic Provider Name and Address Organization Details Last Updated DateTime 02/18/2025 18939.08 g 98.1 [degF] 83 /min 128/84 mm[Hg] Paige Salas MA [place] [employer] [facility] 02/18/2025 15:14:51 Date Recorded Body height Body mass index (BMI) Body weight Body temperature Heart rate Oxygen saturation Oxygen saturation in Arterial blood by Pulse oximetry Systolic And Diastolic Provider Name and Address Organization Details Last Updated DateTime 3 157.48 cm 29.8 kg/m2 22061.5 6 g 98.1 [degF] 69 /min 97 % 97 % 140/86 mm[Hg] VERONICA Ro [facility] [employer] [facility] 3 16:18:55 Date Recorded Body height Body mass index (BMI) Body weight Body temperature Heart rate Oxygen saturation Oxygen saturation in Arterial blood by Pulse oximetry Systolic And Diastolic Provider Name and Address Organization Details Last Updated DateTime 3 157.48 cm 30.2 kg/m2 77083.7 4 g 97.5 [degF] 90 /min 97 % 97 % 110/72 mm[Hg] Kayleigh ayon CMA [facility] [employer] [facility] 3 12:12:37 Date Recorded Body height Body mass index (BMI) Body weight Body temperature Heart rate Oxygen saturation Oxygen saturation in Arterial blood by Pulse oximetry Respiratory rate Systolic And Diastolic Provider Name and Address Organization Details Last Updated DateTime 3 157.48 cm 29.3 kg/m2 90859.7 8 g 97.6 [degF] 89 /min 98 % 98 % 16 /min 136/84 mm[Hg] Merna Hernandez RN [facility] [employer] [facility] 3 11:30:35 Social History Question Answer Notes LastModified by Organizat ion Details LastModified Time Tobacco Smoking Status Former Smoker BERTA Ortez, [facility] 02/18/2025 15:10:47 What Is Your Level Of Caffeine Consumption? Occasional Information not available 02/18/2025 In The 14 Days Before Symptom Onset, Have You Had Close Contact With A Laboratory-confir med COVID-19 While That Case Was Ill? No Information not available 02/18/2025 In The 14 Days Before Symptom Onset, Have You Had Close Contact With A Person Who Is Under Investigation For COVID-19 While That Person Was Ill? No Information not available 02/18/2025 What Type Of Diet Are You Following? REGULAR Information not available 02/18/2025 Do You Have An Electrostatic Air Filter? Yes Information not available 02/18/2025 When Did You Quit Smoking? 16+yearssincel andriy Information not available 02/18/2025 Do You Have A Humidifier? Yes Information not available 02/18/2025 Do You Have Moisture Problems In Your Home? Yes Basement Information not available 02/18/2025 What Was The Date Of Your Most Recent Tobacco Screening? 02/18/2025 Information not available 02/18/2025 Do You Have Any Pets? No Information not available 02/18/2025 Do You Use Your Seat Belt Or Car Seat Routinely? Yes Information not available 02/18/2025 Do You Have Smoke And Carbon Monoxide Detectors In Your Home? Yes Information not available 02/18/2025 Are You Passively Exposed To Smoke? No Information no t available 02/18/2025 Do You Use Sunscreen Routinely? No Information not available 02/18/2025 Have You Recently Traveled Abroad? No Information not available 02/18/2025 Do You Have Any Dietary Restrictions? No Information not available 02/18/2025 Sex: Unknown Functional Status Question Answer Note LastModified by Attenderizat ion Details LastModified Time Do you use any illicit or recreational drugs? No Information not available 02/18/2025 Do you or have you ever used any other forms of tobacco or nicotine? No Information not available 02/18/2025 What is your level of alcohol consumption? None Information not available 02/18/2025 Are you currently employed? Retired Information not available 02/18/2025 Have you been exposed to chemicals or toxins? not that aware of Information not available 02/18/2025 What is your exercise level? Occasional Information not available 02/18/2025 Mental Status Question Answer Note LastModified by Organization D etails LastModified Time Do you feel stressed (tense, restless, nervous, or anxious, or unable to sleep at night)? [id number] Information not available 02/18/2025 Family History Relationship Description Onset Age of this Age Resolved Age Notes LastModified by Organization Details LastModified Time Father Leukemia [email or web address] Not available 0 02/15/2025 13:05:57 Mother Cirrhosis of liver [email or web address] Not available 2024 13:06:09 Medical History No medical history recorded. Gynecological HistoryNo gynecological history recorded. Obstetrics History GPAL:G 0 P 0 0 0 0 Immunizations Vaccine Type Date Status Note Provider Nam e and Address Organization Details Recorded Time Influenza, split virus, quadrivalent, PF 05/28/2018 completed Not Available [facility] 3 08:53:10 Influenza, split virus, quadrivalent, PF 06/25/2017 completed Not Available [facility] 3 08:53:10 Past Encounters Encounter ID Performer Location Encounter Start Date Encounter Closed Date Diagnosis/Indication Diagnosis SNOMED-CT Code Diagnosis ICD10 Code Diagnosis Note [id number] Rosibel Muse MD [facility] [place] [address] [place] [address] [place] [address] 01/03/2021 00:00:00 01/03/2021 20:10:24 [id number] Rosibel Muse MD [facility] [place] [address] [place] [address] [place] [address] 04/07/2021 00:00:00 04/08/2021 10:18:03 [id number] Rosibel Muse MD [facility] [place] [address] [place] [address] [place] [address] 06/08/2021 00:00:00 06/08/2021 13:20:50 [id number] Rosibel Muse MD [facility] [place] [address] [place] [address] [place] [address] 11/02/2021 00:00:00 11/02/2021 19:44:37 [id number] Rosibel Muse MD [facility] [place] [address] [place] [address] [place] [address] 11/16/2021 00:00:00 11/16/2021 21:32:45 [id number] Rosibel Muse MD [facility] [place] [address] [place] [address] [place] [address] 12/10/2022 14:41:31 12/10/2022 15:20:19 Edema of lower extremity 290104276 R60.0 Compressio n stockings. elevate legs. Watch salt in diet. Low back pain 948806203 M54.50 Ventral in cisional hernia 663241993 K43.2 [id number] Rosibel Muse MD [facility] [place] [address] [place] [address] [place] [address] 03/19/2023 16:12:31 03/19/2023 16:49:01 Chronic urticaria 89111751 L50.8 Use zyrtec. Will send to carbon plant grinder [id number] Rosibel Muse MD [facility] [place] [address] [place] [address] [place] [address] 04/01/2023 12:03:23 04/01/2023 12:38:06 Uncontrolled type 2 diabetes mellitus 181604483 E11.65 A1C is >14%. New onset DM2. Will start metformin Will f/u in 3 months. Needs to watch carbs in diet and also pamphlets given out for DM. [id number] Rosibel Muse MD [facility] [place] [address] [place] [address] [place] [address] 07/17/2023 11:25:10 07/17/2023 12:00:58 Uncontrolled type 2 diabetes mellitus 324001729 E11.65 [id number] Rosibel Muse MD [facility] [place] hen[place] [address] [place] [address] [place] [address] 10/16/2023 11:06:30 10/16/2023 11:28:23 Type 2 diabetes mellitus 46127181 E11.9 Allergic rhinitis 930833 04 J30.9 Anxiety 69312528 F41.9 Arthritis 7674617 M19.90 Depressive disorder 3548 9007 F32.A Essential hypertension 19733440 I10 Hyperlipidemia 56780986 E78.5 Low back pain 639751406 M54.50 Neuropathy 256277510 G62 .9 [id number] Pedro Pablo Stearns MD [facility] [place] [facility] [place] [address] [facility] [address] [place] [address] 02/18/2025 14:30:45 02/23/2025 15:11:24 Moderate chronic obstructive pulmonary disease 932822023 J44.9 Dyspnea on exertion 6084 5006 R06.09 R05.3 J30.2 D89.9 Health Concerns Section Related Observation LastModified by Organization Detai ls LastModified Time None Recorded Concern Status LastModified by Organization Details LastModified Time None Recorded Advance Directives Directive None Recorded Payers Insurance Date Sequence Insurance Name Policy Number Policy Mcrae Covered Member ID Mcrae Member ID Guarantor Name 02/15/2025 2 [place] [facility] DEPARTMENT OF PUBLIC AID Krissy Oneal [id number] Krissy Oneal 02/23/2025 1 [facility] (MEDICARE REPLACEMENT/A DVANTAGE - HMO) [id number] Krissy Oneal [id number] Krissy Oneal Notes Date Note Type Note Provider Name and Address Organization Details Recorded Time 03/19/2023 text/html Is breaking out with hives going on since 02/01. It comes and goes. The bumps do itch. Using benadryl and cortisone cream. Stopped losartan Has been taking 2 amlodipine. Went to ER and was given prednisone and taking benadryl. It makes her drowsy. Rosibel Muse MD [address] [facility], [place] [address], [place], [address], [employer] 03/19/2023 20:14:31 04/01/2023 text/html Here today for h igh BS up to 547 last week. Does not have DM and needs an A1C. Feels fine. Just a little winded. Is a little wobbly has tingling and numbness in feet since chemo for pancreatic cancer. Had a Whipple procedure. There fmhx of DM2. Has excessive thirst and mouth is dry. Has a lot of urination. Gets fatigued a lot. Rosibel Muse MD [address] [facility], [facility] [address], [place], [address], [employer] 04/01/2023 20:57:05 07/17/2023 text/html here for f/u TRAVIS Samano [address], [place], [address], [employer] [facility] 07/28/2023 09:50:11 10/16/2023 text/html no changes TRAVIS Samano [address], [place], [address], [employer] [facility] 10/26/2023 21:20:45 02/18/2025 text/html Primary care/Ref erring provider: Ashley Gardiner NP; Yessenia Chavez MD Patient is here to go over her mod COPD management. Initial development of shortness of breath: 2014Duration of shortness of breath: 11 yearsCondition of shortness of breath: worseningTiming of shortness of breath: noneFrequency: up to 5 times a dayLimits activities: yesAggravating factors: walking to [place] a the end of driveway, taking a shower, getting dressed, talking on the phone, sweeping/mopping the floorAlleviating factors: rest Modified [employer] [place] (mMRC) Dyspnea Scale - Grade 2Grade 0 I only get breathless with strenuous exercise .Grade 1 I get short of breath when hurrying on the level or walking up a slight hill .Grade 2 I walk slower than people of the same age on the level because of breathlessness or have to stop for breath when walking at my own pace on the level .Grade 3 I stop for breath after walking about 100 yards or after a few minutes on the level .Grade 4 I am too breathless to leave the house or I am breathless when dressing . Treatment history: Montelukast 10 mg daily 2019 only Albuterol HFA as needed since 2013 Symbicort HFA 160/4.5 mcg 2 puffs BID 2013-2024Trelegy Ellipta 100/62.5/25 mcg 1 inhalation daily since 2024 Other symptoms:Drooling: noDysarthria: noNeck pain: noOdynophagia: noDysphagia: noWeak mastication: noFacial weakness: noNasal speech: noProtruding tongue: noProductive cough: clearWheezing: noChest tightness: yesOrthopnea: noFrequent throat clearing or swallowing: noPalpitations: noHeartburn: noEdema: yes Environmental exposures:Nicotine smoke: 1/2 ppd 7595-3424 = 15 pack yearsPaint: noDye: noDust mites: yesMold: noDamp basement: noWood burning stove: noAnimal dander: yes dogsCockroaches: noPollen: yesArsenic: noAsbestos: noBeryllium: noCadmium: noChromium: noCoal smoke: noDiesel fumes: noNickel: noSilica: noSoot: no EPWORTH SLEEPINESS SCALE (ESS) CHANCE OF DOZING SCORE0 = would never doze1 = slight chance of dozing2 = moderate chance of dozing3 = high chance of dozing SITUATION AND CHANCE OF DOZINGSitting and reading - 0Watching television - 1Sitting inactive in a public place (e.g. a theater or meeting) - 1As a passenger in a car for an hour without a break - 1Lying down to rest in the afternoon when circumstances permit - 1Sitting and talking to someone - 0Sitting quietly after lunch without alcohol - 1In a car, while stopped for a few minutes in the traffic - 0TOTAL SCORE 5Subjectively, patient has a slight chance of dozing. Pedro Pablo Stearns MD [address] [place] [address], [place], [address], [place] - [facility] [employer] 02/20/2025 15:14:25 OBGyn Episode No OBEpisode recorded.
--- OUTSIDE RECORDS SUMMARY | 2025-03-01 09:25 | XMS_ITS ---
Author Organization [facility] Address [address] [place] [address] Care Team Providers Care Employee Benefits Attorney Name Role Phone Sabino Luke MD Unavailable [phone] Kathya Orona DO Primary Care Provider [phone] Active Problems Problem Noted Date Diagnosed Date [...]
--- OUTSIDE RECORDS SUMMARY | 2025-03-01 09:25 | XMS_ITS | Clinical Summary ---
Author Organization [facility] Address [address] [place] [address] Care Team Providers Care Biosecurity Officer Name Role Phone Sabino Luke MD Unavailable [phone] Kathya Orona DO Primary Care Provider [phone] Allergies Active Allergy Reactions Criticality Noted Date [...] 1 tablet (10 mg total) by mouth crtt before breakfast 30 tablet 4 Active fluticasone [...] 1 tablet (10 mg total) by mouth crtt before breakfast 30 tablet 4 Active cyclobenzaprine (FLEXERIL) 10 mg tabletIndicatio ns:Muscle Spasm Take 1 tablet (10 mg total) by mouth 2 (two) times a day as needed for muscle spasms 30 tablet 4 Active hydroCHLOROthia zide (HYDRODIURIL) 25 mg tabletIndicatio ns:hypertension Take 1 tablet (25 mg total) by mouth crtt before breakfast 30 tablet 4 Active sertraline [...] Date Type Department Care Team Description 12/18/2024 [facility] ([facility]) - 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5 kg (151 lb) 07/03/2024 10:53 AM RETOUCHING OPERATOR Height 157.5 cm (5' 2) 07/03/2024 10:53 AM RETOUCHING OPERATOR Body Mass Index 27.62 07/03/2024 10:53 AM RETOUCHING OPERATOR Plan of Treatment Health Maintenance Due [...] on stairs Contact your local community or [facility] for information on exercise, fall prevention programs, or options for improving home safety. Medical Devices Implanted Type Area Turf Sales Person Device Identifier Shelf Expiration Date Model / Serial / Lot [employer]/C R Bard [id number] Bard [id number] Monofilament Soft Lightweight Low Profile Square - [id number] - [id number] Implanted:Qty: 1 on 05/11/2024 by Sabino Luke MD at [facility] Mesh N/A: Abdomen [employer]/C R Bard [id number] 11/06/2028 [id number] / [id number] / [id number] Insurance [facility] MEDICARE ADVANTAGE [facility] MEDICARE ADVANTAGE IDPA [facility] MEDICARE ADVANTAGE IDPA Advance Directives For more information, please contact: [phone] * Full Code (Latest Code Status on File) Date Activated Date Inactivated Comments 05/11/2024 8:24 PM 05/19/2024 3:53 PM Care Teams Biosecurity Officer Relationship Specialty Start Date End Date Kathya Orona DO [address] [facility] [address] [address] PCP - General Family Medicine 05/12/24 Sabino Luke MD [address] [place] [address] Referring Physician General Surgery 12/06/23
--- OUTSIDE RECORDS SUMMARY | 2025-03-01 09:25 | XMS_ITS | Referral Summary ---
Author Organization [facility] Address [address] [place] [address] Care Team Providers Care Family Services Coordinator Name Role Phone Sabino Luke MD Unavailable [phone] Kathya Orona DO Primary Care Provider [phone] Encounters Date Type Department Care Team Description 12/18/2024 Telephone [facility] Advanced Medicine ([facility]) - [facility] Minimally Invasive Surgery [address] [facility] [address], [place] [address] Nataliya Su from Last 3 [...] 1 tablet (10 mg total) by mouth bond clerk before breakfast 30 tablet 4 Active fluticasone [...] 1 tablet (10 mg total) by mouth bond clerk before breakfast 30 tablet 4 Active cyclobenzaprine (FLEXERIL) 10 mg tabletIndicatio ns:Muscle Spasm Take 1 tablet (10 mg total) by mouth 2 (two) times a day as needed for muscle spasms 30 tablet 4 Active hydroCHLOROthia zide (HYDRODIURIL) 25 mg tabletIndicatio ns:hypertension Take 1 tablet (25 mg total) by mouth bond clerk before breakfast 30 tablet 4 Active sertraline [...] on file Legal Sex Female 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 SUPERVISOR Gender Identity Not on file Sexual Orientation Not on file Occupation Industry Job Start Date Job End Date Disability Not on file Not on file Not on file Last Filed Vital Signs Vital Sign Reading Time Taken Comments Blood Pressure 130/86 07/03/2024 10:53 AM ALTERATION WORKROOM SUPERVISOR Pulse 85 07/03/2024 10:53 AM ALTERATION WORKROOM SUPERVISOR Temperature 36.6 C (97.9 F) 07/03/2024 10:53 AM ALTERATION WORKROOM SUPERVISOR Respiratory Rate 16 07/03/2024 10:53 AM ALTERATION WORKROOM SUPERVISOR Oxygen Saturation 97% 07/03/2024 10:53 AM ALTERATION WORKROOM SUPERVISOR Inhaled Oxygen Concentration - - Weight 68.5 kg (151 lb) 07/03/2024 10:53 AM ALTERATION WORKROOM SUPERVISOR Height 157.5 cm (5' 2) 07/03/2024 10:53 AM ALTERATION WORKROOM SUPERVISOR Body Mass Index 27.62 07/03/2024 10:53 AM ALTERATION WORKROOM SUPERVISOR Plan of Treatment Not on file Goals [...] home safety. Medical Devices Implanted Type Area Retail Director Device Identifier Shelf Expiration Date Model / Serial / Lot [employer] Inc/C R Bard [id number] Bard [id number] Monofilament Soft Lightweight Low Profile Square - [id number] - [id number] Implanted:Qty: 1 on 05/11/2024 by Sabino Luke MD at [facility] Mesh N/A: Abdomen [employer]/C R Bard [id number] 11/06/2028 [id number] / [id number] / [id number] Insurance [facility] MEDICARE ADVANTAGE [facility] MEDICARE ADVANTAGE IDPA [facility] MEDICARE ADVANTAGE IDPA Advance Directives For more information, please contact: [phone] * Full Code (Latest Code Status on File) Date Activated Date Inactivated Comments 05/11/2024 8:24 PM 05/19/2024 3:53 PM Care Teams Family Services Coordinator Relationship Specialty Start Date End Date Kathya Orona DO [facility] [address] [address] PCP - General Family Medicine 05/12/24 Sabino Luke MD [address] [place] [address] Referring Physician General Surgery 12/06/23
== END 2025-03-01 09:20 | disposition home or self-care (01) ==
PROVIDERS: PCP Family Medicine; Visit Provider Family Medicine
DX: Z12.31 Encounter for screening mammogram for malignant neoplasm of breast (principal); M85.88 Other specified disorders of bone density and structure, other site
CPT/HCPCS: 77063; 77067; 77080

== ENCOUNTER 2025-03-02 08:07 | Outpatient (CLI) | payer MEDICARE, MEDICAID, SELFPAY ==
--- NOTE | ~2025-03-02 | CT_ITS ---
EXAMINATION: CT chest abdomen pelvis w con DATE: 03/02/2025 09:32 INDICATION: Ampullary carcinoma TECHNIQUE: Computed tomography (CT) of the chest, abdomen, and pelvis was performed with 100 mL Omnip aque-350 intravenous contrast. Automated exposure control and iterative reconstruction technique were employed. The dose-length product was 482.10 mGy-cm. COMPARISON: 11/23/2024 FINDINGS: CHEST CT: No interval change in a cluster of 3-4 mm nodules at the lateral superior segment of the right lower lobe. Slight decrease in size of a now 7 x 5 mm nodule at the basilar left lower lobe. Mild bibasilar atelectasis. No pneumonia, pulmonary edema or pleural effusion. Heart size is normal. No pericardial effusion. Thoracic aorta is normal in caliber with no dissection. No pathologically enlarged thoraci c lymphadenopathy. Mild thoracic spondylosis. Partially visualized anterior plate-screw fixation at t he lower cervical spine for anterior spinal fusion involving at least C4-C6. Right internal jugular c entral venous port catheter with distal tip at the caudal superior vena cava. ABDOMEN/PELVIS CT: Cholecystectomy clips at the gallbladder fossa. There are few hepatic cysts the largest in the right hepatic lobe measuring 8.0 cm. Interval increase in size of a previously 3.7 x 2.1 x 3.3 cm, currently 5.5 x 2.3 x 3.4 cm heterogene ously hypodense mass at the lateral segment of the left hepatic lobe. Unchanged small metallic densit y within the mass. Again seen is likely extra capsular extension of the mass into the fat immediately anterior and posterior to the lateral segment left hepatic lobe with obliteration of the fat plane b etween the liver and the anterior diaphragm and the distal body of the stomach. There is been progres melissa of thrombus extending centrally from the mass along the left hepatic vein now projecting to the lumen of the inferior vena cava. The thrombus demonstrates heterogeneous density suspicious for enhan cing tumor thrombus. Unchanged 11 mm cyst in the spleen. Pancreas, bilateral adrenal glands and right kidney are normal. 4 mm cyst at the upper pole of the left kidney. Normal appendix. No bowel obstruction. There is a 4.3 x 3.9 cm mass in the right anterior pelvis just anterior to the distal right psoas muscle and the rig ht external iliac artery and vein which is increased in size from 2.0 x 1.5 cm and concerning for met astatic disease. Bladder is normal. The uterus is not identified and has likely been surgically resec germán. No free intraperitoneal gas or fluid. No new, enlarging or pathologically enlarged abdominal or pelvic lymphadenopathy. Postoperative scarring with sutures along the midline of the anterior abdomin al wall. Severe lower lumbar spondylosis. IMPRESSION: 1. Increase in size of a likely metastatic mass in segment 2 of the liver with likely vascular invasi on with increased extent of likely enhancing tumor thrombus in the draining left hepatic vein now pro jecting to the lumen of the cephalad most inferior vena cava. 2. Increase in size of a now 4.3 x 3.9 cm mass in the right anterior pelvis also consistent with prog ression of metastatic disease. 3. Interval decrease in size of a now 7 x 5 mm likely benign pulmonary nodule at the left lung base w hich is unchanged from 02/08/2023 with increase in size on the most recent study likely artifact of ad jacent atelectasis. No evident metastatic disease in the thorax. Reviewed, dictated and finalized at location A. IMPRESSION: 1. Increase in size of a likely metastatic mass in segment 2 of the liver with likely vascular invasion with increased extent of likely enhancing tumor thromb us in the draining left hepatic vein now projecting to the lumen of the cephala d most inferior vena cava. 2. Increase in size of a now 4.3 x 3.9 cm mass in the right anterior pelvis als o consistent with progression of metastatic disease. 3. Interval decrease in size of a now 7 x 5 mm likely benign pulmonary nodule a t the left lung base which is unchanged from 02/08/2023 with increase in size on the most recent study likely artifact of adjacent atelectasis. No evident meta static disease in the thorax.
--- OUTSIDE RECORDS SUMMARY | 2025-03-02 08:14 | XMS_ITS | Referral Summary ---
Author Organization [facility] Address [address] [place] [address] Care Team Providers Care Gas Appliance Adjuster Name Role Phone Sabino Luke MD Unavailable [phone] Kathya Orona DO Primary Care Provider [phone] Encounters Date Type Department Care Team Description 12/18/2024 [facility] Advanced Medicine ([facility]) - [facility] Minimally Invasive Surgery [address] [facility] [address], [place] [address] Nataliya Su from Last 3 [...] 1 tablet (10 mg total) by mouth tare weigher before breakfast 30 tablet 4 Active fluticasone [...] 1 tablet (10 mg total) by mouth tare weigher before breakfast 30 tablet 4 Active cyclobenzaprine (FLEXERIL) 10 mg tabletIndicatio ns:Muscle Spasm Take 1 tablet (10 mg total) by mouth 2 (two) times a day as needed for muscle spasms 30 tablet 4 Active hydroCHLOROthia zide (HYDRODIURIL) 25 mg tabletIndicatio ns:hypertension Take 1 tablet (25 mg total) by mouth tare weigher before breakfast 30 tablet 4 Active sertraline [...] on file Legal Sex Female 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 Gender Identity Not on file Sexual Orientation Not on file Occupation Industry Job Start Date Job End Date Disability Not on file Not on file Not on file Last Filed Vital Signs Vital Sign Reading Time Taken Comments Blood Pressure 130/86 07/03/2024 10:53 AM MIXER FOAM RUBBER Pulse 85 07/03/2024 10:53 AM MIXER FOAM RUBBER Temperature 36.6 C (97.9 F) 07/03/2024 10:53 AM MIXER FOAM RUBBER Respiratory Rate 16 07/03/2024 10:53 AM MIXER FOAM RUBBER Oxygen Saturation 97% 07/03/2024 10:53 AM MIXER FOAM RUBBER Inhaled Oxygen Concentration - - Weight 68.5 kg (151 lb) 07/03/2024 10:53 AM MIXER FOAM RUBBER Height 157.5 cm (5' 2) 07/03/2024 10:53 AM MIXER FOAM RUBBER Body Mass Index 27.62 07/03/2024 10:53 AM MIXER FOAM RUBBER Plan of Treatment Not on file Goals [...] home safety. Medical Devices Implanted Type Area Debit Agent Device Identifier Shelf Expiration Date Model / Serial / Lot [employer]ol Inc/C R Bard [id number] Bard [id number] Monofilament Soft Lightweight Low Profile Square - [id number] - [id number] Implanted:Qty: 1 on 05/11/2024 by Sabino Luke MD at [facility] Mesh N/A: Abdomen [employer]/C R Bard [id number] 11/06/2028 [id number] / [id number] / [id number] Insurance [facility] MEDICARE ADVANTAGE [facility] Address: [address] [address] [place] [address] [facility] MEDICARE ADVANTAGE IDPA [facility] MEDICARE ADVANTAGE [facility] MEDIC[facility] Address: [address] [address] [place] [address] IDPA Advance Directives For more information, please contact: [phone] * Full Code (Latest Code Status on File) Date Activated Date Inactivated Comments 05/11/2024 8:24 PM 05/19/2024 3:53 PM Care Teams Gas Appliance Adjuster Relationship Specialty Start Date End Date Kathya Orona DO [facility] [address] [address] PCP - General Family Medicine 05/12/24 Sabino Luke MD [address] [place] [address] Referring Physician General Surgery 12/06/23
--- OUTSIDE RECORDS SUMMARY | 2025-03-02 08:14 | XMS_ITS ---
Author Organization [facility] Address [address] [place] [address] Care Team Providers Care Golf Course Designer Name Role Phone Sabino Luke MD Unavailable [phone] Kathya Orona DO Primary Care Provider [phone] Active Problems Problem Noted Date Diagnosed Date [...]
--- OUTSIDE RECORDS SUMMARY | 2025-03-02 08:14 | XMS_ITS | Clinical Summary ---
Author Organization [facility] Address [address] [place] [address] Care Team Providers Care Electrical Estimator Name Role Phone Sabino Luke MD Unavailable [phone] Kathya Orona DO Primary Care Provider [phone] Allergies Active Allergy Reactions Criticality Noted Date [...] 1 tablet (10 mg total) by mouth sticker machine operator before breakfast 30 tablet 4 Active [...] 1 tablet (10 mg total) by mouth sticker machine operator before breakfast 30 tablet 4 Active cyclobenzaprine (FLEXERIL) 10 mg tabletIndicatio ns:Muscle Spasm Take 1 tablet (10 mg total) by mouth 2 (two) times a day as needed for muscle spasms 30 tablet 4 Active hydroCHLOROthia zide (HYDRODIURIL) 25 mg tabletIndicatio ns:hypertension Take 1 tablet (25 mg total) by mouth sticker machine operator before breakfast 30 tablet 4 Active [...] Date Type Department Care Team Description 12/18/2024 [facility] ([facility]) - [facility] Minimally Invasive Surgery [address], [place] [address] Nataliya Su from Last 3 [...] on file Legal Sex Female 8:15 AM METAL MINER Gender Identity Not on file Sexual Orientation Not on file Occupation Industry Job Start Date Job End Date Disability Not on file Not on file Not on file Obstetrics History Last Filed Vital Signs Vital Sign Reading Time Taken Comments Blood Pressure 130/86 07/03/2024 10:53 AM METAL MINER Pulse 85 07/03/2024 10:53 AM METAL MINER Temperature 36.6 C (97.9 F) 07/03/2024 10:53 AM METAL MINER Respiratory Rate 16 07/03/2024 10:53 AM METAL MINER Oxygen Saturation 97% 07/03/2024 10:53 AM METAL MINER Inhaled Oxygen Concentration - - Weight 68.5 kg (151 lb) 07/03/2024 10:53 AM METAL MINER Height 157.5 cm (5' 2) 07/03/2024 10:53 AM METAL MINER Body Mass Index 27.62 07/03/2024 10:53 AM METAL MINER Plan of Treatment Health Maintenance Due Date [...] on stairs Contact your local community or [facility] for information on exercise, fall prevention programs, or options for improving home safety. Medical Devices Implanted Type Area Agile Project Manager Device Identifier Shelf Expiration Date Model / Serial / Lot Davol Inc/C R Bard [id number] Monofilament Soft Lightweight Low Profile Square - [id number] - [id number] Implanted:Qty: 1 on 05/11/2024 by Sabino Luke MD at [facility] Mesh N/A: Abdomen [employer]/C R Bard [id number] 11/06/2028 [id number] / [id number] / [id number] Insurance [facility] MEDICARE ADVANTAGE [facility] MEDICARE ADVANTAGE IDPA [facility] MEDICARE ADVANTAGE IDPA Advance Directives For more information, please contact: [phone] * Full Code (Latest Code Status on File) Date Activated Date Inactivated Comments 05/11/2024 8:24 PM 05/19/2024 3:53 PM Care Teams Electrical Estimator Relationship Specialty Start Date End Date Kathya Orona DO [address] [facility] [address] [address] PCP - General Family Medicine 05/12/24 Sabino Luke MD [address] [place] [address] Referring Physician General Surgery 12/06/23
[2025-03-02 09:17] LABS: Hematocrit 38.4 % (37.0-47.0); Hemoglobin 12.7 g/dL (12.0-15.0); Immature Granulocyte Percent A 0.6 % (0-0.5); Lymphocytes Absolute Auto 0.93 K/mm3 (0.9-3.2); Mean Corpuscular HGB Conc 33.1 g/dl (32-36); Mean Corpuscular Hemoglobin 27.5 pg (26-34); Mean Corpuscular Volume 83.1 fl (80-100); Nucleated Red Blood Cells Absolute Auto 0.000 K/mm3 (0.0-0.012); Nucleated Red Blood Cells Perc 0.0 % (0.0-0.2); Platelet Count Result 258 k/mm3 (150-375); Red Blood Count 4.62 M/mm3 (4.2-5.4); White Blood Count 6.5 K/mm3 (4.5-10.0)
[2025-03-02 09:42] LABS: Alanine Aminotransferase 33 U/L (6-35); Albumin Level 5.0 g/dL (3.5-5.1); Alkaline Phosphatase 75 U/L (38-126); Anion Gap 13 mmol/L (4-12); Aspartate Amino Transferase 35 U/L (14-36); Bilirubin,Total 0.4 mg/dL (0.2-1.3); Blood Urea Nitrogen 18 mg/dL (7-17); Calcium 9.9 mg/dL (8.4-10.2); Carbon Dioxide 29 mmol/L (22-30); Chloride 95 mmol/L (98-107); Cholesterol 146 mg/dL (0-200); Estimated Glomerular Filt Rate > 60; Glucose 167 mg/dL (65-110); HDL Direct 51 mg/dL; Potassium 3.0 mmol/L (3.4-5.0); Sodium 137 mmol/L (137-145); Total Protein 8.6 g/dL (6.3-8.2); Triglycerides 75 mg/dL (<150)
[2025-03-02 09:51] LABS: NT Pro B Type Natriuretic Pept 27 pg/mL (19.9-100)
[2025-03-02 09:53] LABS: MALB Creatinine Ratio 26.9 mg/g (0-30)
[2025-03-02 10:19] LABS: Thyroid Stimulating Hormone 0.722 uIU/mL (0.465-4.680)
[2025-03-02 10:47] LABS: Hemoglobin A1C 6.4 % (<5.7)
[2025-03-03 11:09] LABS: CA 19-9 25 U/mL (0-35)
[2025-03-03 14:08] LABS: IgG, Subclass 1 728 mg/dL (248-810); IgG, Subclass 2 193 mg/dL (130-555); IgG, Subclass 3 75 mg/dL (15-102); IgG, Subclass 4 30 mg/dL (2-96); Immunoglobulin G, Qn 1201 mg/dL (586-1602)
== END 2025-03-02 08:08 | disposition home or self-care (01) ==
PROVIDERS: PCP Nurse Practitioner; Referring Provider Internal Medicine Pulmonary Disease; Visit Provider Internal Medicine Hematology & Oncology
DX: C24.1 Malignant neoplasm of ampulla of Vater (principal); E78.5 Hyperlipidemia, unspecified; E11.29 Type 2 diabetes mellitus with other diabetic kidney complication; I10 Essential (primary) hypertension; E55.9 Vitamin D deficiency, unspecified; E03.9 Hypothyroidism, unspecified; R06.09 Other forms of dyspnea; R05.3 Chronic cough; J30.2 Other seasonal allergic rhinitis; D69.9 Hemorrhagic condition, unspecified
CPT/HCPCS: 36415; 71260; 74177; 80053; 80061; 82043; 82103; 82104; 82306; 82784; 82785; 82787; 83036; 83880; 84443; 85025; 86003; 86301; 86480; Q9967

== ENCOUNTER 2025-03-09 14:41 | Outpatient (CLI) | payer MEDICARE, MEDICAID, SELFPAY ==
--- OUTSIDE RECORDS SUMMARY | 2025-03-09 14:46 | XMS_ITS ---
Author Organization [facility] Address [address] [place] [phone] Phone Care Team Providers Care Mail Distribution Scheme Examiner Name Role Phone Kathya Orona Primary Care Provider [phone]- [phone] Active Problems Problem Noted Date Diagnosed Date [...]
--- OUTSIDE RECORDS SUMMARY | 2025-03-09 14:46 | XMS_ITS | Continuity of Care Document ---
Author Organization [facility]. If a dditional information is needed, contact Health Information Management at [phone] Address [address] [place] [address] Phone Care Team Providers Care Emergency Room Orderly Name Role Phone Unavailable Unavailable Unavailable Unavailable Unavailable Unavailable Unavailable Unavailable Unavailable Problems Tongue swelling Onset:01-Mar-2023 Carleton Meghan A SINTER PRESS OPERATOR Allergic reaction Onset:01-Mar-2023 Carleton Meghan A SINTER PRESS OPERATOR Allergies and Adverse Reactions naproxen(Allergy) Onset: 01-Mar-2023 Reaction:ITCHING Nitrofurantoin(Allergy) Onset: 01-Mar-2023 Reaction:ITCHING Amoxicillin(Allergy) Onset: 01-Mar-2023 Reaction:ITCHING PENCILLIN(Allergy) Onset: 01-Mar-2023 Reaction:UNKNOWN Social History Smoking Status Ex-smoker Recorded: 01-Mar-2023
--- OUTSIDE RECORDS SUMMARY | 2025-03-09 14:46 | XMS_ITS | Encounter Summary ---
Author Organization [facility] [employer] [facility] Address [address] [place] [address] Care Team Providers Care Surgical Services Coordinator Name Role Phone Kathya Orona DO Primary Care Provider [phone]- [phone] Encounter Details Date Type Department Care Team (Late Contact Info) Description 03/09/2025 Orders Only [facility] Oncology and Hematology [place] [address] [place] [address] [place] MD [address] [place] [address] Social History Tobacco Use Types Packs/Day [...] Department Care Team (Late Contact Info) Description 03/25/2025 4:30 PM CDT Telephone Check Up [facility] Oncology and Hematology - [place] [address] [place] [address] Royal Newell MD [address] [place] [address] documented as of this encounter Procedures Procedure Name Priority Date/Time Associated Diagnosis Comments CHG ALPHA-FETOPROTEIN SERUM Routine 03/02/2025 12:[address] CHEST ABDOMEN PELVIS W CONT Routine 03/02/2025 9:34 AM CDT documented in this encounter Results * CHG ALPHA-FETOPROTEIN SERUM (03/02/2025 12:54 PM CDT) Royal Newell MD CHG - LABORATORY Final Result * CT CHEST ABDOMEN PELVIS W CONT (03/02/2025 9:34 AM CDT) Anatomical Region Laterality Modality Chest Computed Tomogra phy Royal Newell MD CT ORDERABLES Final Result documented in this encounter Visit Diagnoses Not on filedocumented in this encounter Care Teams Surgical Services Coordinator Relationship Specialty Start Date End Date Kathya Orona DO [address] [facility] [address] [place] [phone] PCP - General Family Practice 05/07/24 documented as of this encounter
--- OUTSIDE RECORDS SUMMARY | 2025-03-09 14:46 | XMS_ITS | Encounter Summary ---
Author Organization [facility] [employer] [facility] Address [address] [place] [address] Care Team Providers Care Heel Wheeler Name Role Phone Kathya Orona DO Primary Care Provider +1- [phone] Encounter Details Date Type Department Care Team (Late Contact Info) Description 03/04/2025 Orders Only [facility] Oncology and Hematology [place] [address] [place] [address] [place] Newell MD [address] [employer] [address] [place] [address] Social History Tobacco Use Types Packs/Day [...] 03/25/2025 4:30 PM CDT Telephone Check Up [facility] Oncology and Hematology - [place] [address] [place] [address] Royal Newell MD [address] [place] [address] documented as of this encounter Procedures Procedure Name Priority Date/Time Associated Diagnosis Comments CBC WITH DIFFERENTIAL Routine 03/02/2025 1:58 PM CDT BRAIN NATRIURETIC PEPTIDE, BNP OR PROBNP Routine 03/02/2025 1:56 PM CDT CANCER ANTIGEN 19-9 Routine 03/02/2025 1 2:38 PM CDT QUANTIFERON TB GOLD Routine 03/02/2025 9 :27 AM CDT documented in this encounter Results * CBC WITH DIFFERENTIAL (03/02/2025 1:58 PM CDT) Blood us [place] Newell MD HEMATOLOGY ORDERABLES Final Res ult * BRAIN NATRIURETIC PEPTIDE, BNP OR PROBNP (03/02/2025 1:56 PM CDT) Blood us [place] Newell MD CHEMISTRY ORDERABLES Final Resu lt * CANCER ANTIGEN 19-9 (03/02/2025 12:38 PM CDT) Blood us Royal Newell MD CHEMISTRY ORDERABLES Final Resu lt * QUANTIFERON TB GOLD (03/02/2025 9:27 AM CDT) Blood us Royal Newell MD CHEMISTRY ORDERABLES Final Resu lt documented in this encounter Visit Diagnoses Not on filedocumented in this encounter Care Teams Heel Wheeler Relationship Specialty Start Date End Date Kathya Orona DO [address] [place] [address] [address] [place] [phone] PCP - General Family Practice 05/07/24 documented as of this encounter
--- OUTSIDE RECORDS SUMMARY | 2025-03-09 14:46 | XMS_ITS | Clinical Summary ---
Author Organization [facility] Address [address] [place] [address] Phone Care Team Providers Care Wet Mixer Name Role Phone GamalloydKathya dick Primary Care Provider +1- [phone] Allergies Active Allergy Reactions Criticality Noted Date [...] Anxiety. Active fluticasone propionate (FLONASE) 50 mcg/spray Bon Aqua, Suspension nasal inhaler Administer 2 Sprays in [...] daily. liquid Active naloxone (NARCAN) 4 mg/spray Bon Aqua, Non-Aerosol EMERGENCY USE ONLY: Administer 1 spray [...] Encounters Date Type Department Care Team Description 03/09/2025 2:15 PM CDT Office Visit [facility] Oncology and Hematology - [place] [address] [place] [address] Royal Newell MD Ampullary carcinoma (CMS/HCC) (Primary Dx) 03/09/2025 Orders Only [facility] Oncology and Hematology - [place] [address] [place] [address] Royal Newell MD 03/04/2025 Orders Only [facility] Oncology and Hematology - [place] [address] [place] [address] Royal Newell MD from Last 3 Months [...] Sign Reading Time Taken Comments Blood Pressure 122/82 03/09/2025 1:51 PM CDT Pulse 98 03/09/2025 1:51 PM CDT Temperature 36.4 C (97.5 F) 03/09/2025 1:51 PM CDT Respiratory Rate 16 03/09/2025 1:51 PM CDT Oxygen Saturation 94% 03/09/2025 1:51 PM CDT Inhaled Oxygen Concentration - - Weight 67.9 kg (149 lb 12.8 oz) 03/09/2025 1:51 PM CDT Height 157.5 cm (5' 2) 02/20/2023 10:3 1 AM CDT Body Mass Index 27.4 02/20/2023 10:31 AM CDT Plan of Treatment Upcoming Encounters Date Type Department Care Team (Late st Contact Info) Description 03/25/2025 4:30 PM CDT Telephone Check Up [facility] Oncology and Hematology [facility] [address] [facility] [address] [place] [address] Royal Newell MD [address] [facility] [address] [place] [address] Health Maintenance Due Date Last [...] MONTHS 10/14/2024 04/16/2024 INFLUENZA VACCINE (#1) 2025 , 05/28/2018, 06/25/2017 Medical Devices Implanted Type Area Accounting Auditor Device Identifier Shelf Expiration Date Model / Serial / Lot Clip Ligating Horizon Lg Ti [id number] - Csc - [id number] Implanted:Qty : 1 on 12/29/2021 by Phil Mejia MD at [facility] N/A: Abdomen TELEFLEX- WECK CLOSURE SYS [id number] / / Clip Ligating Horizon Ti Sm [id number] Rp - [id number] Implanted:Qty : 2 on 12/29/2021 by Phil Mejia MD at [facility] Clip N/A: Abdomen TELEFLEX- WECK CLOSURE SYS [id number] RP / / Tube Feed Kangaroo 5fr 16in [id number] - [id number] Implanted:Qty : 1 on 12/29/2021 by Phil Mejia MD at [facility] Feeding Device N/A: Abdomen CARDINAL - PATIENT RECOVERY [id number] / / Description:INSERTED INTO [place] NCREATIC DUCT Tube Feed Deerton [id number] - [id number] Implanted:Qty : 1 on 12/29/2021 by Phil Mejia MD at [facility] Feeding Device N/A: Abdomen CARDINAL - PATIENT RECOVERY 04/11/2026 [id number] / / [id number] Description:WRAPPER CHECKED BY R.NAlina 01/01/22 Hemostat Surg Snow 2x4in 208 - [id number] Implanted:Qty : 1 on 12/29/2021 by Phil Mejia MD at [facility] Hemostatic N/A: Abdomen J&J- [employer] 09/11/2023 208 / / [id number] Sealant Fibrin Vistaseal 10ml Vst10 - [id number] Implanted:Qty : 1 on 12/29/2021 by Phil Mejia MD at [facility] Sealant N/A: Abdomen J&J- ETHIC[employer] INC 02/07/2023 [id number] / [id number] / [id number] Description:BOX CHECKED BY R .NAlina 01/01/2022 Stent Pncrtc Geenen 7fr 9cm [id number] - [id number] Implanted:Qty : 1 on 05/25/2021 by Omar Gonzalez MD at [facility] Stent COOK- ENDOSCOPY - HALINA-COOK [id number] 09/12/2023 [id number] / / [id number] Stent Bili Wallflex Rx 10x40 [id number] - [id number] Implanted:Qty : 1 on 05/25/2021 by Omar Gonzalez MD at [facility] Stent [employer] SCI- ENDOSCOPY [id number] 02/13/2023 [id number] / / [id number] Procedures Procedure Name Priority Date/Time Associated Diagnosis Comments CBC WITH DIFFERENTIAL Routine 03/02/2025 1:58 PM CDT BRAIN NATRIURETIC PEPTIDE, BNP OR PROBNP Routine 03/02/2025 1:56 PM CDT CHG ALPHA-FETOPROTEIN SERUM Routine 03/02/2025 12:54 PM CDT CANCER ANTIGEN 19-9 Routine 03/02/2025 1 2:[address] CHEST ABDOMEN PELVIS W CONT Routine 03/02/2025 9:34 AM CDT QUANTIFERON TB GOLD Routine 03/02/2025 9 :27 AM CDT from Last 3 Months Results * CBC WITH DIFFERENTIAL (03/02/2025 1:58 PM CDT) Blood us Royal Newell MD HEMATOLOGY ORDERABLES Final Res ult * BRAIN NATRIURETIC PEPTIDE, BNP OR PROBNP (03/02/2025 1:56 PM CDT) Blood us Royal Newell MD CHEMISTRY ORDERABLES Final Resu lt * CHG ALPHA-FETOPROTEIN SERUM (03/02/2025 12:54 PM CDT) us Royal Newell MD CHG - LABORATORY Final Result * CANCER ANTIGEN 19-9 (03/02/2025 12:38 PM CDT) Blood Royal Newell MD CHEMISTRY ORDERABLES Final Resu lt * CT CHEST ABDOMEN PELVIS W CONT (03/02/2025 9:34 AM CDT) Anatomical Region Laterality Modality Chest Computed Tomogra phy Royal Newell MD CT ORDERABLES Final Result * QUANTIFERON TB GOLD (03/02/2025 9:27 AM CDT) Blood Royal Newell MD CHEMISTRY ORDERABLES Final Resu lt from Last 3 Months [place] [facility] [place]: [address] [address] [place] [address] [place] RX OPT[employer] RX Member Subscriber Plan / Payer (Ef fective 2017-Present) Name:Krissy Oneal Relation to Subscriber:Self Name:Krissy Oneal Payer ID:Not on file Group ID:[id number] Type:RX Medicare Part D Address: [address] [employer] (INTERNAL) [facility] [address] MED[place] Advance Directives For more information, please contact: [phone] * Full Code (Latest Code Status on File) Date Activated Date Inactivated Comments 12/29/2021 8:18 PM 01/08/2022 8:26 PM * Full Code Date Activated Date Inactivated Comments 12/29/2021 5:49 AM 12/29/2021 8:17 PM * Full Code Date Activated Date Inactivated Comments 05/25/2021 12:46 PM 06/01/2021 9:14 PM * Full Code Date Activated Date Inactivated Comments 05/24/2021 5:14 AM 05/25/2021 12:46 PM Care Teams Wet Mixer Relationship Specialty Start Date End Date Kathya Orona DO [facility] [facility] [address] [place] [address] PCP - General Family Practice 05/07/24
--- OUTSIDE RECORDS SUMMARY | 2025-03-09 14:46 | XMS_ITS | Encounter Summary ---
Author Organization [facility] [employer] [facility] Address [address] [place] [address] Care Team Providers Care Packager And Strapper Name Role Phone Kathya Orona DO Primary Care Provider [phone] Reason for Referral * PET Scan (Urgent) - Open Specialty Diagnoses / Procedures Referred By Contac t Referred To Contact Diagnoses Ampullary carcinoma (CMS/HCC) Procedures PET TUMOR OR INFECTION IMG W CT SKB MD Royal Newell MD [address] [place] [id number] Phone: tel: fax: Referral ID Status Reason Start Date Expiration Date Visits Re quested Visits Authorized [id number] Open 03/09/2025 04/09/2026 1 1 Reason for Visit * Reason Comments Cancer Follow Up Encounter Details Date Type Department Care Team (Late st Contact Info) Description 03/09/2025 2:15 PM CDT Office Visit [facility] Oncology and Hematology - [place] [address] [place] [phone] Royal Newell MD [address] [place] [phone] Ampullary carcinoma (CMS/HCC) (Primary Dx) Social History Tobacco Use Types [...] 12.8 oz) 03/09/2025 1:51 PM CDT Height - - Body Mass Index 27.4 02/20/2023 10:31 AM CDT documented in this encounter Progress Notes * Royal Newell MD - 03/09/2025 2:37 PM CDT HEMATOLOGY / ONCOLOGY PROGRESS NOTE Patient Identification: Name: Krissy Jaquez White Age: 69 y.o. 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 EGD done on May 22 showed malignant appearing duodenal mass and biopsies were taken. Pathology came back positive for gastritis. [facility] where she had EUS and ERCP done with Dr. Medeiros. 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 Neoadjuvant chemotherapy with modified FOLFIRINOX regimen started 07/11/2021. Received cycle 8/8 onOctober 31, 2021 with 20% dose reduction due to toxicity. Pancreaticoduodenectomy done on December 29, 2021. Patient completed SBRT treatment for oligometastasis to the liver in August 2023. Hernia surgery done on May 11, 2024. SUBJECTIVE Patient came to the office for follow-up visit. She denies any abdominal pain. Denies any nausea orvomiting. Denies any diarrhea. She has lost 3 pound weight. No other new complaints. Review of system Constitutional: denies fevers, sweats, 3 pound weight loss without much tiredness and fatigue HEENT: denies sinus congestion, hearing or vision problems Respiratory: denies cough, dyspnea, wheeze Cardiovascular: denies chest pain, exertional chest pressure/discomfort, nausea, syncope, shortnessof breath GI: Denies any nausea vomiting and diarrhea. , denies any abdominal pain : denies dysuria, frequency, incontinence, urgency Integumentary system: no lymphadenopathy, sweats, flushing Musculoskeletal: denies: myalgia, arthralgia, denies any rib pain Neurological: denies blurry or disturbed vision, [...] bilirubin 0.3 hemoglobin 13 CEA 19-9 50 Labs from August 10 showed creatinine 0.7 total protein 9.0 hemoglobin 12.9 potassium 3.0 CA 15-333 Labs from March 02 showed WBC 6.5 hemoglobin 12.7 platelet 258,000 creatinine 0.8 potassium 3.0 CA 19-9 25 Assessment: Plan: Patient Active Problem List Diagnosis Date Noted Incarcerated incisional hernia 08/30/2022 Pancreatic fistula 01/09/2022 Bacteremia due to Klebsiella pneumoniae 05/29/2021 Elevated LFTs Primary cancer of ampulla of Vater ([facility]/HCC) 05/24/2021 Acute diarrhea 05/24/2021 COPD (chronic obstructive pulmonary disease) ([facility]/HCC) 05/24/2021 Acute pancreatitis without necrosis or infection, [...] to the liver oligometastasis in August 2023. Labs showed normal tumor marker. CT scan chest abdomen pelvis done on March 02 showed increased sizeof left liver lobe lesion now measures 5.5 x 2.3 cm compared to 3.7 x 2.1 cm. There is also increased size of the right anterior pelvis mass now measures 4.3 x 3.9 cm compared to 2 x 1.5 cm. These findings are worrisome for progressive disease but the tumor marker is normal. I will order the PET scan and will discuss this with her next week. I will also order [employer] ration sequencing. Hypokalemia. Potassium remains low. She will increase potassium to 20 mg twice a day. Anemia. Resolved. Continue iron and vitamin B12. Phone visit in 1 week to discuss the PET scan. 03/09/2025 Royal Newell MD documented in this encounter Plan of Treatment Upcoming Encounters Date Type Department Care Team (Late st Contact Info) Description 03/25/2025 4:30 PM CDT Telephone Check Up [facility] Oncology and Hematology - [place] [address] [facility] [address] [place] [id number] Royal Newell MD [address] [facility] [address] [place] [address] Pending Results Name Type Priority Associated Diagnoses Date /Time TEMPUS XT DNA AND RNA Lab Routine Ampullary carcinoma (CMS/HCC) 03/09/2025 2:35 PM CDT TEMPUS XT NORMAL BLOOD Lab Routine Ampullary carcinoma (CMS/HCC) 03/09/2025 2:35 PM CDT Scheduled Orders Name Type Priority Associated Diagnoses Orde r Schedule PET TUMOR OR INFECTION IMG W CT SKB MDTH Imaging Stat Ampullary carcinoma (CMS/HCC) Expected: 03/10/2025, Expires: 03/09/2026 MISCELLANEOUS LAB TEST Lab Routine Ampullary carcinoma (CMS/HCC) Expected: 03/09/2025, Expires: 03/09/2026 TEMPUS XT DNA AND RNA Lab Routine Ampullary carcinoma (CMS/HCC) Expected: 03/09/2025, Expires: 03/09/2026 TEMPUS XF Lab Routine Ampullary carcinoma (CMS/HCC) Expected: 03/09/2025, Expires: 03/09/2026 TEMPUS XT DNA AND RNA SOLID TUMOR Lab Routine Ampullary carcinoma (CMS/HCC) Ordered: 03/09/2025 documented as of this encounter Visit Diagnoses Diagnosis Ampullary carcinoma (CMS/HCC)- Primary Malignant neoplasm of ampulla of Vater documented in this encounter Care Teams Packager And Strapper Relationship Specialty Start Date End Date Kathya Orona DO [address] [facility] [address] [place] [address] PCP - General Family Practice 05/07/24 documented as of this encounter
--- OUTSIDE RECORDS SUMMARY | 2025-03-09 14:47 | XMS_ITS | Clinical Summary ---
Author Organization [facility] Address [address] [place] [address] Care Team Providers Care Student Services Rep Name Role Phone Sabino Luke MD Unavailable [phone] Kathya Orona DO Primary Care Provider [phone] Allergies Active Allergy Reactions Criticality Noted Date [...] 1 tablet (10 mg total) by mouth vegetable canner before breakfast 30 tablet 4 Active fluticasone [...] 1 tablet (10 mg total) by mouth vegetable canner before breakfast 30 tablet 4 Active cyclobenzaprine (FLEXERIL) 10 mg tabletIndicatio ns:Muscle Spasm Take 1 tablet (10 mg total) by mouth 2 (two) times a day as needed for muscle spasms 30 tablet 4 Active hydroCHLOROthia zide (HYDRODIURIL) 25 mg tabletIndicatio ns:hypertension Take 1 tablet (25 mg total) by mouth vegetable canner before breakfast 30 tablet 4 Active sertraline [...] Date Type Department Care Team Description 12/18/2024 [facility] ([facility]) - [facility] Minimally Invasive Surgery [address] [facility] [address], [place] [address] Nataliya Su from Last 3 [...] on file Legal Sex Female 8:15 AM DISPUTE COORDINATOR Gender Identity Not on file Sexual Orientation Not on file Occupation Industry Job Start Date Job End Date Disability Not on file Not on file Not on file Obstetrics History Last Filed Vital Signs Vital Sign Reading Time Taken Comments Blood Pressure 130/86 07/03/2024 10:53 AM DISPUTE COORDINATOR Pulse 85 07/03/2024 10:53 AM DISPUTE COORDINATOR Temperature 36.6 C (97.9 F) 07/03/2024 10:53 AM DISPUTE COORDINATOR Respiratory Rate 16 07/03/2024 10:53 AM DISPUTE COORDINATOR Oxygen Saturation 97% 07/03/2024 10:53 AM DISPUTE COORDINATOR Inhaled Oxygen Concentration - - Weight 68.5 kg (151 lb) 07/03/2024 10:53 AM DISPUTE COORDINATOR Height 157.5 cm (5' 2) 07/03/2024 10:53 AM DISPUTE COORDINATOR Body Mass Index 27.62 07/03/2024 10:53 AM DISPUTE COORDINATOR Plan of Treatment Health Maintenance Due Date [...] - 2023-2 5 season) 2024 11/14/2020, 10/24/2020 Influenza Vaccine (#1) 2025 , 05/04/2020, 05/28/2018, Additional history exists Fall Risk Assessment 05/19/2025 05/19/2024, 06/23/2018, 06/02/2018 Goals Goal Patient Goal Type Associated Problems [...] on stairs Contact your local community or [facility] for information on exercise, fall prevention programs, or options for improving home safety. Medical Devices Implanted Type Area Clinical Services Manager Device Identifier Shelf Expiration Date Model / Serial / Lot [employer]/C R Bard [id number] Bard [id number] Monofilament Soft Lightweight Low Profile Square - [id number] - [id number] Implanted:Qty: 1 on 05/11/2024 by Sabino Luke MD at [facility] Mesh N/A: Abdomen [employer] Bard [id number] 11/06/2028 [id number] / [id number] / [id number] Insurance [facility] MEDICARE ADVANTAGE IDPA IDPA Advance Directives For more information, please contact: [phone] * Full Code (Latest Code Status on File) Date Activated Date Inactivated Comments 05/11/2024 8:24 PM 05/19/2024 3:53 PM Care Teams Student Services Rep Relationship Specialty Start Date End Date Kathya Orona DO [address] [facility] [address] [address] PCP - General Family Medicine 05/12/24 Sabino Luke MD [address] [place] [address] Referring Physician General Surgery 12/06/23
--- OUTSIDE RECORDS SUMMARY | 2025-03-09 14:47 | XMS_ITS | Referral Summary ---
Author Organization [facility] Address [address] [place] [address] Care Team Providers Care Packager Or Packer And Weigher Name Role Phone Sabino Luke MD Unavailable [phone] Kathya Orona DO Primary Care Provider [phone] Encounters Date Type Department Care Team Description 12/18/2024 Telephone [facility] Advanced Medicine ([facility]) - [facility] Minimally Invasive Surgery [address] [facility] [address], [place] [address] Nataliya Su from Last 3 [...] 1 tablet (10 mg total) by mouth excel specialist before breakfast 30 tablet 4 Active fluticasone [...] 1 tablet (10 mg total) by mouth excel specialist before breakfast 30 tablet 4 Active cyclobenzaprine (FLEXERIL) 10 mg tabletIndicatio ns:Muscle Spasm Take 1 tablet (10 mg total) by mouth 2 (two) times a day as needed for muscle spasms 30 tablet 4 Active hydroCHLOROthia zide (HYDRODIURIL) 25 mg tabletIndicatio ns:hypertension Take 1 tablet (25 mg total) by mouth excel specialist before breakfast 30 tablet 4 Active sertraline [...] on file Legal Sex Female 8:15 AM HYDRAULIC CHAIR ASSEMBLER Gender Identity Not on file Sexual Orientation Not on file Occupation Industry Job Start Date Job End Date Disability Not on file Not on file Not on file Last Filed Vital Signs Vital Sign Reading Time Taken Comments Blood Pressure 130/86 07/03/2024 10:53 AM HYDRAULIC CHAIR ASSEMBLER Pulse 85 07/03/2024 10:53 AM HYDRAULIC CHAIR ASSEMBLER Temperature 36.6 C (97.9 F) 07/03/2024 10:53 AM HYDRAULIC CHAIR ASSEMBLER Respiratory Rate 16 07/03/2024 10:53 AM HYDRAULIC CHAIR ASSEMBLER Oxygen Saturation 97% 07/03/2024 10:53 AM HYDRAULIC CHAIR ASSEMBLER Inhaled Oxygen Concentration - - Weight 68.5 kg (151 lb) 07/03/2024 10:53 AM HYDRAULIC CHAIR ASSEMBLER Height 157.5 cm (5' 2) 07/03/2024 10:53 AM HYDRAULIC CHAIR ASSEMBLER Body Mass Index 27.62 07/03/2024 10:53 AM HYDRAULIC CHAIR ASSEMBLER Plan of Treatment Not on file Goals [...] home safety. Medical Devices Implanted Type Area Boiler Cleaner Device Identifier Shelf Expiration Date Model / Serial / Lot [employer]/C R Bard [id number] Bard [id number] Monofilament Soft Lightweight Low Profile Square - [id number] - [id number] Implanted:Qty: 1 on 05/11/2024 by Sabino Luke MD at [facility] Mesh N/A: Abdomen [employer] [id number] 11/06/2028 [id number] / [id number] / [id number] Insurance [facility] MEDICARE ADVANTAGE [facility] MEDICARE ADVANTAGE IDPA [facility] MEDICARE ADVANTAGE IDPA Advance Directives For more information, please contact: [phone] * Full Code (Latest Code Status on File) Date Activated Date Inactivated Comments 05/11/2024 8:24 PM 05/19/2024 3:53 PM Care Teams Packager Or Packer And Weigher Relationship Specialty Start Date End Date Kathya Orona DO [facility] [address] [address] PCP - General Family Medicine 05/12/24 Sabino Luke MD [address] [place] [address] Referring Physician General Surgery 12/06/23
--- OUTSIDE RECORDS SUMMARY | 2025-03-09 14:47 | XMS_ITS | Data Portability ---
Author Organization [place] [facility] [employer] [facility] [place], Main Office Address [address] [place] [address] Assessment Encounter Date Assessment Date Assessment LastModified by Organization Details LastModified Time 02/18/2025 02/18/2025 Assessment: Nicotine smoke: / ppd 6316-2804 = 15 pack years Mod COPD Bilateral [...] done as follows: Respiratory allergen panel for [facility] Serum IgE Serum total IgG, IgG1, IgG2, IgG3, IgG4 Ircri-0-dvqjbngsyq n phenotype and level TB stimulated gamma [...] n (aat) phenotype , serum 2024 025 [id number] 2 [facility], [address], [place], [address], 02/25/2025 17:14:29 BNP (B-type natriuret ic peptide), serum or plasma 2024 025 YEFRI [facility], [address], [place], [address], 03/08/2025 17:52:29 ige, total, serum 2024 025 [id number] 2 [facility], [address], [place], [address], 02/25/2025 17:14:54 tb (M tuberculo sis), ifn-gamma uma, blood 2024 025 [id number] 2 [facility], [address], [place], [address], 02/25/2025 17:15:[address] s 1+2+3+4, serum 2024 025 [id number] 2 [facility], [address], [place], [address], 02/25/2025 17:15:16 respirato ry allergen panel, [facility] A, serum 2024 025 [id number] 2 [facility], [address], [place], [address], 02/25/2025 17:15:28 respirato ry allergen panel - [facility] b 2024 025 [id number] 2 [facility], [address], [place], [address], 02/25/2025 17:15:40 eosinophi ls, quant, blood 2024 025 [id number] 2 [facility], [address], [place], [address], 02/25/2025 17:15:54 pro BNP (pro B-type natriuret ic peptide), serum or plasma 2024 025 2 [facility], [address], [place], [address], 02/25/2025 17:16:06 alpha-1-a ntitrypsi n (aat), QN, serum 2024 025 [id number] 2 [facility], [address], [place], [address], 02/25/2025 17:16:17 HbA1c (hemoglob in A1c), blood 2023 024 [facility], [address], [place], [address], 10/16/2023 14:51:44 hemoglobi n A1C, fingersti ck [address], [place], [address], 07/17/2023 11:56:57 hemoglobi n A1C, fingersti ck [address], [place], [address], 04/01/2023 12:50:52 Referral pulmonary rehab referral - Please call patient to schedule. 2024 025 [facility], [address] [facility] [address], [place], [address], 02/22/2025 15:46:56 mortising machine operator & immunolog ist referral 2022 023 [facility], [address] [facility], [place], [address], 04/17/2023 11:49:08 Procedures None recorded. Surgeries None recorded. Imaging None recorded. Medication Orders albuterol sulfate HFA 90 mcg/actua tion aerosol inhaler 2024 025 YEFRI [facility], [address], [place], [address], 02/18/2025 16:03:11 Trelegy Ellipta 100 mcg-62.5 mcg-25 mcg powder for inhalatio n 2024 025 YEFRI [facility], [address] , [place], [address], 02/18/2025 16:03:08 metformin ER 500 mg 24 hr tablet,ex tended release (gastric retention ) 2022 023 [id number] [facility], [address] , [place], [address], 07/22/2023 10:42:15 Januvia 100 mg tablet 2022 023 [facility], [address] , [place], [address], 02/18/2025 15:06:29 metformin ER 500 mg 24 hr tablet,ex tended release (gastric retention ) 2022 023 [id number] [facility] [address], [address] , [place], [address], 07/22/2023 10:42:15 Patient TargetsNo targets recorded. 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 [address], [address], 05/14/2023 09:26:03 05/28/20 23 05/28/2023 PET, skull base to mid-t high No observ ation record ed. [address], [address], 05/29/2023 12:47:13 07/23/20 23 07/23/2023 MRI, abdom en, w/o contr ast No observ ation record ed. [address], [address], 08/21/2023 16:04:02 08/19/19 24 08/19/2023 CT, abdom en + pelvi s, w/ contr ast No observ ation record ed. [place] [address], [place], [address], 08/21/2023 16:04:03 09/06/19 24 09/06/2023 MRI, brain + brain stem, w/wo contr ast No observ ation record ed. [email or web address] [place] [id number] [facility] [address], [place], [address], 09/10/2023 12:14:57 11/19/19 24 11/19/2023 PET, brain scan, metab olic evalu ation No observ ation record ed. [email or web address] [place] [address] [address], [place], [address], 11/21/2023 10:45:08 02/16/20 25 02/09/2025 NM, lung scan, venti latio n/per fusio n No observ ation record ed. [facility] Not Available 2024 17:50:22 02/16/20 25 11/23/2024 CT, angio gram, chest + abdom en + pelvi s, w/ contr ast No observ ation record ed. [facility] Not Available 2024 18:20:51 02/16/20 25 10/21/2024 compl ete PFT w/ [facility] hodil ator chu metry * No [...] Address Organization Details Recorded Time Depressive disorder 92264879 Active Pedro Pablo Stearns MD [address] [facility], [address], [place], [address], [place] [facility] [employer] [facility] [place] 08:07:59 Neuropathy 091618465 Active Pedro Pablo Stearns MD [address], [address], [place], [address], [email or web address] 5 08:07:54 Anxiety 05303062 Active Pedro Pablo Stearns MD [address], [address], [place], [address], [email or web address] [place] 5 08:08:03 Hyperlipidemia 65711034 Active Pedro Pablo Stearns MD [address], [address], [place], [address], [email or web address] 5 08:07:56 Allergic rhinitis 17356625 Active Pedro Pablo Stearns MD [address], [address], [place], [address], [email or web address] 5 08:08:06 Essential hypertension 73311457 Active 2022 Pedro Pablo Stearns MD [address], [address], [place], [address], [employer] [place] 5 08:07:57 COVID-19 707110048 Active 2022 Nancy Ashford MD [address], [address], [place], [address], [employer] 3 11:37:11 Type 2 diabetes mellitus 07952852 Active 2023 Pedro Pablo Stearns MD [address], [address], [place], [address], [employer] 5 08:07:52 Moderate chronic obstructive pulmonary disease 922124372 Active 2024 Pedro Pablo Stearns MD [address], [address], [place], [address], [employer] [facility] [email or web address] 5 15:44:41 Notes:Medical History: Anxie ty/Depression COVID infection Rhinitis Eosinophils 0/uL IgE 50 IU/mL AAT PiMM 136 mg% Mod COPD, exertional O2 c/o [place] Home Patient Chronic right hemidiaphragm elevation Atelectasis PASP 38 mmHg Hypertension EF 60% Hyperlipidemia T2DM with neuropathy LAMBRETO 1:40 Bilateral pulmonary nodules Hiatal hernia with KIMMY H. 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 Medical Equipment None Reported. Allergies Allergen ID Allergen Name Allergen Category Reaction Reaction Severity Criticality Documentation Date Start Date Code Code System Note Provider Name and Address Organization Details Recorded Time 50629 Substance with sulfonami de structure and antibacte rial mechanism of action (substanc e) medicatio n dizziness Not available Not available 10/10/2022 77140 8003 SNOMED Not Available [facility] 3 08:53:14 70867 Product containin g penicilli n (product) medicatio n itching Not available Not available 10/10/2022 81127 8001 SNOMED Not Available [facility] 3 08:53:14 53424 erythromy rae medicatio n Not available Not available Not available 10/10/2022 4053 RxNorm BERTA Ortez, [employer] 5 15:04:15 57788 amoxicill in medicatio n itching Not available Not available 10/10/2022 723 RxNorm Not Available [facility] 3 08:53:14 87647 Substance with macrolide structure and antibacte rial mechanism of action (substanc e) medicatio n itching Not available Not available 02/15/2025 62073 0009 SNOMED Pedro Pablo Stearns MD [address] [employer], [address], [place], [address], [employer] 5 13:06:42 47618 naproxen medicatio n rash Not available Not available 02/15/2025 7258 RxNorm Pedro Pablo Stearns MD [address] [employer], [address], [place], [address], [employer] 5 13:08:09 05930 Iodinated contrast media (substanc e) medicatio n hives Not available Not available 02/15/2025 27280 2004 SNOMED Pedro Pablo Stearns MD [address] [facility], [place] [address], [place], [address], [facility] [employer] [facility] [employer] [facility] 5 13:08:53 06004 iohexol medicatio n itching Not available Not available 02/15/2025 5956 RxNorm Pedro Pablo Stearns MD [address] [facility], [place] [address], [place], [address], [employer] [facility] [employer] [facility] 5 13:09:25 32133 gadobenic acid Not available itching Not available Not available 02/15/2025 31937 UNK Pedro Pablo Stearns MD [address] [facility], [facility] [address], [place], [address], [facility] [employer] [facility] [facility] [place] 5 13:09:36 Medications Name Sig Start Date [...] 80 mg/mL suspensio n for injection active [facility]#[id number] Not Available Not Available Not [...] completed Not Available Not Available Not Available juancarloso rothiazid e 12.5 mg tablet Take 1 [...] Updated DateTime 4 157.48 cm 28.3 kg/m2 70662.8 2 g 16 /min 97.3 [degF] 83.99 /min 98 % 98 % 124/86 mm[Hg] Merna Hernandez, JESSICA IN [employer] [facility] [employer] [place] 4 11:14:22 Date Recorded Oxygen saturation Oxygen saturation in Arterial blood by Pulse oximetry Body mass index (BMI) Body height Heart rate Respiratory rate Provider Name and Address Organization Details Last Updated DateTime 5 97 % 97 % 27.3 kg/m2 156.21 cm 83 /min 15 /min Pedro Pablo Stearns MD [address] [place] [address], [facility] [address], [place], [address], [place] [employer] [facility] [employer] [facility] [place] 5 15:26:32 Date Recorded Body weight Body temperature Heart rate Systolic And Diastolic Provider Name and Address Organization Details Last Updated DateTime 02/18/2025 15967.08 g 98.1 [degF] 83 /min 128/84 mm[Hg] Paige Salas MA IN [employer] [facility] 02/18/2025 15:14:51 Date Recorded Body height Body mass index (BMI) Body weight Body temperature Heart rate Oxygen saturation Oxygen saturation in Arterial blood by Pulse oximetry Systolic And Diastolic Provider Name and Address Organization Details Last Updated DateTime 3 157.48 cm 29.8 kg/m2 19807.5 6 g 98.1 [degF] 69 /min 97 % 97 % 140/86 mm[Hg] VERONICA Ro [facility] [employer] [facility] 3 16:18:55 Date Recorded Body height Body mass index (BMI) Body weight Body temperature Heart rate Oxygen saturation Oxygen saturation in Arterial blood by Pulse oximetry Systolic And Diastolic Provider Name and Address Organization Details Last Updated DateTime 3 157.48 cm 30.2 kg/m2 95910.7 4 g 97.5 [degF] 90 /min 97 % 97 % 110/72 mm[Hg] Kayleigh ayon CMA [facility] [employer] [facility] 3 12:12:37 Date Recorded Body height Body mass index (BMI) Body weight Body temperature Heart rate Oxygen saturation Oxygen saturation in Arterial blood by Pulse oximetry Respiratory rate Systolic And Diastolic Provider Name and Address Organization Details Last Updated DateTime 3 157.48 cm 29.3 kg/m2 01235.7 8 g 97.6 [degF] 89 /min 98 % 98 % 16 /min 136/84 mm[Hg] Merna Hernandez RN [facility] [employer] [facility] 3 11:30:35 Social History Question Answer Notes LastModified by Organizat ion Details LastModified Time Tobacco Smoking Status Former Smoker BERTA Ortez, [facility] [employer] [facility] 02/18/2025 15:10:47 What Is Your Level Of [...] Functional Status Question Answer Note LastModified by Organizat ion Details LastModified Time Do you use [...] anxious, or unable to sleep at night)? MF1800-1 Information not available 02/18/2025 Family History Relationship [...] virus, quadrivalent, PF 05/28/2018 completed Not Available [facility] 3 08:53:10 Influenza, split virus, quadrivalent, PF 06/25/2017 completed Not Available [facility] 3 08:53:10 Past Encounters Encounter ID Performer Location Encounter Start Date Encounter Closed Date Diagnosis/Indication Diagnosis SNOMED-CT Code Diagnosis ICD10 Code Diagnosis Note [id number] Rosibel Muse MD [facility] Willian henry [address] [place] [address] [place] [address] 01/03/2021 00:00:00 01/03/2021 20:10:24 [id number] Rosibel Muse MD [facility] [place] [address] [place] [address] [place] [address] 04/07/2021 00:00:00 04/08/2021 10:18:03 [id number] Rosibel Muse MD [facility] [place] [address] [place] [address] [place] [address] 06/08/2021 00:00:00 06/08/2021 13:20:50 [id number] Rosibel Muse MD [facility] [place] [address] [place] [address] [place] [address] 11/02/2021 00:00:00 11/02/2021 19:44:37 [id number] Rosibel Muse MD [facility] Willian ll[place] [address] [place] [address] [place] [address] 11/16/2021 00:00:00 11/16/2021 21:32:45 [id number] Rosibel Muse MD [facility] [address] [place] [address] [place] [address] 12/10/2022 14:41:31 12/10/2022 15:20:19 Edema of lower extremity 505965769 R60.0 Compressio n stockings. elevate legs. Watch salt in diet. Low back pain 136938387 M54.50 Ventral in cisional hernia 301202721 K43.2 [id number] Rosibel Muse MD [facility] [place] [address] [address] [place] [address] [place] [address] 03/19/2023 16:12:31 03/19/2023 16:49:01 Chronic urticaria 25457391 L50.8 Use zyrtec. Will send to mortising machine operator [id number] Rosibel Muse MD [facility] [place] [address] [address] [place] [address] [place] [address] 04/01/2023 12:03:23 04/01/2023 12:38:06 Uncontrolled type 2 diabetes mellitus 692184274 E11.65 A1C is >14%. New onset DM2. Will start metformin Will f/u in 3 months. Needs to watch carbs in diet and also pamphlets given out for DM. [id number] Rosibel Muse MD [facility] [address] [address] [address] [place] [address] [place] [address] 07/17/2023 11:25:10 07/17/2023 12:00:58 Uncontrolled type 2 diabetes mellitus 030599219 E11.65 [id number] Rosibel Muse MD [facility] [address] [place] [address] [place] [address] 10/16/2023 11:06:30 10/16/2023 11:28:23 Type 2 diabetes mellitus 32208413 E11.9 Allergic rhinitis 025808 04 J30.9 Anxiety 13391245 F41.9 Arthritis 5889007 M19.90 Depressive disorder 3548 9007 F32.A Essential hypertension 57742957 I10 Hyperlipidemia 75317514 E78.5 Low back pain 243777588 M54.50 Neuropathy 536681059 G62 .9 [id number] Pedro Pablo Stearns MD [facility] [address] [address] 02/18/2025 14:30:45 02/23/2025 15:11:24 Moderate chronic obstructive pulmonary disease 872610366 J44.9 Dyspnea on exertion 6084 5006 R06.09 R05.3 J30.2 D89.9 Health Concerns Section Related Observation LastModified by Organization Detai ls LastModified Time None Recorded Concern Status LastModified by Organization Details LastModified Time None Recorded Advance Directives Directive None Recorded Payers Insurance Date Sequence Insurance Name Policy Number Policy Mcrae Covered Member ID Mcrae Member ID Guarantor Name 02/15/2025 2 [place] [employer]MENT [place] [employer] Krissy Oneal [id number] Krissy Oneal 03/08/2025 1 [facility] (MEDICARE REPLACEMENT/A DVANTAGE - HMO) [id number] Krissy Oneal [id number] Krissy Oneal OBGyn Episode No OBEpisode recorded.
--- OUTSIDE RECORDS SUMMARY | 2025-03-09 14:47 | XMS_ITS ---
Author Organization [facility] Address [address] [place] [address] Care Team Providers Care Numerical Control Nesting Operator Name Role Phone Sabino [address] MD Unavailable [phone] Kathya Orona DO Primary Care Provider [phone] Active Problems Problem Noted Date Diagnosed Date [...]
== END 2025-03-09 14:42 | disposition home or self-care (01) ==
LOC: ANHLAB 14:42
PROVIDERS: PCP Family Medicine; Visit Provider Internal Medicine Hematology & Oncology
DX: C24.1 Malignant neoplasm of ampulla of Vater (principal)
CPT/HCPCS: 36415

== ENCOUNTER 2025-03-23 14:04 | Outpatient (CLI) | payer MEDICARE, MEDICAID, SELFPAY ==
--- NOTE | ~2025-03-23 | PE_ITS ---
EXAMINATION: PET skull to mid thigh DATE: 03/24/2025 07:37 INDICATION: Ampullary carcinoma TECHNIQUE: Blood glucose level was 96 mg/dL. 9.981 mCi of 18-fluorodeoxyglucose (18-FDG) was administ ered i.v. Low dose computed tomography (CT) images were acquired from the base of the brain to the pr oximal thighs for attenuation correction and anatomic localization. Positron emission tomography (PET ) images were acquired in the same distribution beginning 52 minutes after injection. Images includin g fused PET/CT images were reconstructed in axial, coronal, and sagittal planes. Automated exposure c ontrol technique was employed. The dose-length product was 848.71mGy-cm. COMPARISON: Chest CT dated 03/02/2025 and PET/CT dated FINDINGS: Head/neck: Typical pattern of symmetric physiologic increased activity in the lacrimal, parotid and submandibula r glands as well as along the mucosa of the nasal and oral cavities, pharynx and hypopharynx. No path ologically enlarged cervical lymphadenopathy or suspicious foci of increased uptake in the visualized head or neck. Chest: Elevation the right hemidiaphragm with chronic right basilar atelectasis/scarring. Heart size is norm al. No pericardial or pleural effusion. Vascular is normal caliber. No pathologically enlarged or FDG avid thoracic lymphadenopathy. Right internal jugular central venous port catheter with distal tip a t the caudal superior vena cava. Abdomen/pelvis/proximal thighs: Physiologic renal accumulation and excretion of FDG activity in the kidneys, bladder and along portio ns of ureters. Postoperative changes of prior Whipple procedure including cholecystectomy clips at th e gallbladder fossa and expected small amount of pneumobilia within the liver. There are large photop enic defects associated with 8.3 cm and 5.6 cm cyst in the right hepatic lobe. There is increased FDG uptake with maximal SUV of 15.7 associated with a mass in the lateral segment of the left hepatic lo be which is difficult to distinguish from the surrounding renal parenchyma on the noncontrast imaging but can be more clearly visualized on the prior contrast enhanced CT. The previously noted tumor thr ombus extending in the left hepatic vein centimeters from the mass is also evident is a tubular exten melissa of increased FDG uptake with maximal SUV of 12.2 which reaches the inferior vena cava between th e liver and heart. There is a second FDG avid hepatic lesion with maximal SUV of 21.8 along the later al margin of segment 5 of the liver which is also difficult to discern from the adjacent renal parenc hyma aside from the localized bulging of the hepatic capsule. The remaining pancreas, spleen and bilateral adrenal glands are normal. 3.5 x 3.2 cm FDG avid mass wi th maximal SUV of 19.6 situated in the likely omental fat in the anterolateral left lower quadrant of the abdomen. There is a second 5.1 x 4.7 cm FDG avid mass situated in the mesenteric fat anterolater al right pelvis caudal to the cecum with maximal SUV of 24.8. There is a central photopenic defect wi thin the mass suggesting central necrosis. Moderate uptake scattered throughout the bowels without ra diologic correlate, also likely physiologic. No free intraperitoneal gas or fluid. No other abnormal foci of increased FDG uptake or pathologically enlarged lymphadenopathy in the abdomen, pelvis or pr oximal thighs. Musculoskeletal: Mild likely physiologic uptake at the distal left teres minor muscle and tendon. There is mild uptake with maximal SUV of 2.8 at the spinous processes of T12 without radiologic correlate. Similar but le ss intense uptake identified at the T10 spinous process also without radiologic correlate Additional small focus of mild focal increased uptake at the lateral right iliac crest with maximal SUV of 2.2 a lso without evident lytic or blastic bone lesion but with tiny enthesophyte. IMPRESSION: 1. FDG avid masses consistent with metastatic disease in the liver the largest in the left hepatic lo be with FDG avid tumor thrombus extending centrally along the left hepatic vein. The margins of the l esions are better appreciated on the prior contrast enhanced CT. 2. Additional FDG avid masses likely related to peroneal implants located in the right pelvis and lef t lower quadrant also consistent with metastatic disease.. 3. 3 small foci of still relatively mild uptake at the T10 and T12 spinous processes and along the la teral right iliac spine which are without evident corresponding lytic or blastic bone lesions equivoc al for osseous metastatic disease versus potentially enthesopathic in etiology. 4. Postoperative changes of prior Whipple procedure. Reviewed, dictated and finalized at location A. IMPRESSION: 1. FDG avid masses consistent with metastatic disease in the liver the largest in the left hepatic lobe with FDG avid tumor thrombus extending centrally along the left hepatic vein. The margins of the lesions are better appreciated on th e prior contrast enhanced CT. 2. Additional FDG avid masses likely related to peroneal implants located in th e right pelvis and left lower quadrant also consistent with metastatic disease. . 3. 3 small foci of still relatively mild uptake at the T10 and T12 spinous proc esses and along the lateral right iliac spine which are without evident corresp onding lytic or blastic bone lesions equivocal for osseous metastatic disease v ersus potentially enthesopathic in etiology. 4. Postoperative changes of prior Whipple procedure.
--- OUTSIDE RECORDS SUMMARY | 2025-03-23 14:31 | XMS_ITS ---
Author Organization [facility] Address [address] [place] [address] Phone Care Team Providers Care Environmental Health And Safety Intern Name Role Phone Kathya Orona Primary Care Provider [phone] Active Problems Problem Noted Date Diagnosed Date [...]
--- OUTSIDE RECORDS SUMMARY | 2025-03-23 14:31 | XMS_ITS | Clinical Summary ---
Author Organization [facility] Address [address] [place] [address] Care Team Providers Care Chief Wellness Officer Name Role Phone Sabino [address] MD Unavailable [phone] Kathya Orona DO Primary Care Provider [phone] Allergies Active Allergy Reactions Criticality Noted Date [...] 1 tablet (10 mg total) by mouth domestic cleaner before breakfast 30 tablet 4 Active fluticasone [...] 1 tablet (10 mg total) by mouth domestic cleaner before breakfast 30 tablet 4 Active cyclobenzaprine (FLEXERIL) 10 mg tabletIndicatio ns:Muscle Spasm Take 1 tablet (10 mg total) by mouth 2 (two) times a day as needed for muscle spasms 30 tablet 4 Active hydroCHLOROthia zide (HYDRODIURIL) 25 mg tabletIndicatio ns:hypertension Take 1 tablet (25 mg total) by mouth domestic cleaner before breakfast 30 tablet 4 Active sertraline [...] on file Legal Sex Female 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 Gender Identity Not on file Sexual Orientation Not on file Occupation Industry Job Start Date Job End Date Disability Not on file Not on file Not on file Obstetrics History Last Filed Vital Signs Vital Sign Reading Time Taken Comments Blood Pressure 130/86 07/03/2024 10:53 AM TRANSPORTATION REFRIGERATION TECHNICIAN Pulse 85 07/03/2024 10:53 AM TRANSPORTATION REFRIGERATION TECHNICIAN Temperature 36.6 C (97.9 F) 07/03/2024 10:53 AM TRANSPORTATION REFRIGERATION TECHNICIAN Respiratory Rate 16 07/03/2024 10:53 AM TRANSPORTATION REFRIGERATION TECHNICIAN Oxygen Saturation 97% 07/03/2024 10:53 AM TRANSPORTATION REFRIGERATION TECHNICIAN Inhaled Oxygen Concentration - - Weight 68.5 kg (151 lb) 07/03/2024 10:53 AM TRANSPORTATION REFRIGERATION TECHNICIAN Height 157.5 cm (5' 2) 07/03/2024 10:53 AM TRANSPORTATION REFRIGERATION TECHNICIAN Body Mass Index 27.62 07/03/2024 10:53 AM TRANSPORTATION REFRIGERATION TECHNICIAN Plan of Treatment Health Maintenance Due Date [...] 2024 11/14/2020, 10/24/2020 Influenza Vaccine (#1) 2025 4, 05/04/2020, 05/28/2018, Additional history exists Fall Risk [...] on stairs Contact your local community or [facility] for information on exercise, fall prevention programs, or options for improving home safety. Medical Devices Implanted Type Area A/C Tech Device Identifier Shelf Expiration Date Model / Serial / Lot [employer]/C R Bard [id number] Monofilament Soft Lightweight Low Profile Square - [id number] - [id number] Implanted:Qty: 1 on 05/11/2024 by Sabino Luke MD at [facility] Mesh N/A: Abdomen [employer]/C R Bard [id number] 11/06/2028 [id number] / [id number] / [id number] Insurance [facility] MEDICARE ADVANTAGE [facility] MEDICARE Address: [facility] [address] [place] [address] [facility] MEDICARE Address: [address] [address] [place] [address] IDPA MEDICARE ADVANTAGE IDPA Advance Directives For more information, please contact: [phone] * Full Code (Latest Code Status on File) Date Activated Date Inactivated Comments 05/11/2024 8:24 PM 05/19/2024 3:53 PM Care Teams Chief Wellness Officer Relationship Specialty Start Date End Date GamalloydkapilKathya DO [facility] [address] [address] PCP - General Family Medicine 05/12/24 Sabino [address] MD [address] [place] [address] Referring Physician General Surgery 12/06/23
--- OUTSIDE RECORDS SUMMARY | 2025-03-23 14:31 | XMS_ITS ---
Author Organization [facility] Address [address] [place] [address] Care Team Providers Care Autocad Technician Name Role Phone Sabino [address] MD Unavailable Kathya Orona DO Primary Care Provider [phone] Active Problems Problem Noted Date Diagnosed Date [...]
--- OUTSIDE RECORDS SUMMARY | 2025-03-23 14:31 | XMS_ITS | Continuity of Care Document ---
Author Organization [facility]. If a dditional information is needed, contact Health Information Management at [phone] Address [address] [place] [address] Phone Care Team Providers Care Professor Of English Name Role Phone Unavailable Unavailable Unavailable Unavailable Unavailable Unavailable Unavailable Unavailable Unavailable Problems Tongue swelling Onset:01-Mar-2023 Lorna Meghan A PROCESS PLANT OPERATOR Allergic reaction Onset:01-Mar-2023 Lorna Meghan A PROCESS PLANT OPERATOR Allergies and Adverse Reactions naproxen(Allergy) Onset: 01-Mar-2023 Reaction:ITCHING Nitrofurantoin(Allergy) Onset: 01-Mar-2023 Reaction:ITCHING Amoxicillin(Allergy) Onset: 01-Mar-2023 Reaction:ITCHING PENCILLIN(Allergy) Onset: 01-Mar-2023 Reaction:UNKNOWN Social History Smoking Status Ex-smoker Recorded: 01-Mar-2023
--- OUTSIDE RECORDS SUMMARY | 2025-03-23 14:31 | XMS_ITS | Clinical Summary ---
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 Active fluticasone propionate (FLONASE) 50 mcg/spray [place], Suspension nasal inhaler Administer 2 Sprays in [...] daily. liquid Active naloxone (NARCAN) 4 mg/spray [place], Non-Aerosol EMERGENCY USE ONLY: Administer 1 spray [...] Encounters Date Type Department Care Team Description 03/11/2025 11:23 AM CDT - 03/11/2025 11:59 PM CDT Hospital Encounter [facility] Laboratory Services [address] [facility] [address] [place] [address] [place] [address] Royal Newell MD Discharge Disposition: Home or Self Care 03/09/2025 2:15 PM CDT Office Visit [facility] [address] [place] [address] Royal Newell MD Ampullary carcinoma (CMS/HCC) (Primary Dx) 03/09/2025 Orders Only [facility] [address] [place] [address] Royal Newell MD 03/04/2025 Orders Only [facility] [address] [place] [address] Royal Newell MD from Last 3 Months [...] Care Team (Late st Contact Info) Description 03/30/2025 4:30 PM CDT Telephone Check Up [facility] - [place] [address] [facility] [address] [place] [address] Royal Newell MD [address] [facility] [address] [place] [address] Health Maintenance Due Date Last [...] series) 2013 OSTEOPOROSIS SCREENING 2018 Medicare [place] ([place]) Prev entative Visit/Annual Wellness Visit 08/12/2024 DIABETES HBA1C Q 6 MONTHS 10/14/2024 04/16/2024 INFLUENZA VACCINE (#1) 2025 , 05/28/2018, 06/25/2017 Medical Devices Implanted Type Area Engine Watchman Device Identifier Shelf Expiration Date Model / Serial / Lot Clip Ligating Horizon Lg Ti [id number] - Csc - [id number] Implanted:Qty : 1 on 12/29/2021 by Phil Mejia MD at [facility] N/A: Abdomen TELEFLEX- WECK CLOSURE SYS [id number] / / Clip Ligating Horizon Ti Sm 24 [id number] Rp - [id number] Implanted:Qty : 2 on 12/29/2021 by Phil Mejia MD at [facility] N/A: Abdomen TELEFLEX- WECK CLOSURE SYS 174235 RP / / Tube Feed Kangaroo 5fr 16in [id number] - [id number] Implanted:Qty : 1 on 12/29/2021 by Phil Mejia MD at [facility] Feeding Device N/A: Abdomen CARDINAL - PATIENT RECOVERY [id number] / / Description:INSERTED INTO [place] NCREATIC DUCT Tube Feed [place] [id number] - [id number] Implanted:Qty : 1 on 12/29/2021 by Phil Mejia MD at [facility] Feeding Device N/A: Abdomen CARDINAL - PATIENT RECOVERY 04/11/2026 [id number] / / [id number] Description:WRAPPER CHECKED BY Tracy 01/01/22 Hemostat Surg Snow 2x4in 2081 - [id number] Implanted:Qty : 1 on 12/29/2021 by Phil Mejia MD at [facility] Hemostatic N/A: Abdomen J&J- [employer] 09/11/2023 2082 / / [id number] Sealant Fibrin Vistaseal 10ml Vst10 - [id number] Implanted:Qty : 1 on 12/29/2021 by Phil Mejia MD at [facility] N/A: Abdomen J&J- [employer] 02/07/2023 VST10 / [id number] / [id number] Description:BOX CHECKED BY Melisa Nowak 01/01/2022 Stent Pncrtc Geenen 7fr 9cm [id number] - [id number] Implanted:Qty : 1 on 05/25/2021 by Omar Gonzalez MD at [facility] Stent COOK- ENDOSCOPY - HALINA-COOK [id number] 09/12/2023 [id number] / / [id number] Stent Bili Wallflex Rx 10x40 [id number] - [id number] Implanted:Qty : 1 on 05/25/2021 by Omar Gonzalez MD at [facility] Stent [place] SCI- ENDOSCOPY [id number] 02/13/2023 [id number] / / [id number] Procedures Procedure Name Priority Date/Time Associated Diagnosis Comments [facility] Routine 03/17/2025 9:31 AM CDT Ampullary carcinoma (CMS/HCC) PATHOLOGY Pathology 03/11/2025 11:24 AM CDT Encounter for laboratory test [facility] NORMAL BLOOD Routine 2:35 PM CDT Ampullary carcinoma (CMS/HCC) CHG IMMUNOGLOBULIN E Routine 03/02/2025 3:26 PM CDT CBC WITH DIFFERENTIAL Routine 03/02/2025 1:58 PM CDT BRAIN NATRIURETIC PEPTIDE, BNP OR PROBNP Routine 03/02/2025 1:56 PM CDT CHG ALPHA-FETOPROTEIN SERUM Routine 03/02/2025 12:54 PM CDT CANCER ANTIGEN 19-9 Routine 03/02/2025 1 2:[address] CHEST ABDOMEN PELVIS W CONT Routine 03/02/2025 9:34 AM CDT QUANTIFERON TB GOLD Routine 03/02/2025 9 :27 AM CDT from Last 3 Months Results * [facility] (03/17/2025 9:31 AM CDT) Reason for Study To identify mutations relevant to patient's cancer. 03/17/2025 9:31 AM CDT [facility] Genetic Diseases Assessed Cancer 03/17/2025 9:31 AM CDT [facility] Description of Ranges of DNA Sequences Examined 105 gene liquid biopsy 03/17/2025 9:31 AM CDT [facility] Overall Interpretation positive 03/17/2025 9:31 AM CDT [facility] [email or web address] /[id number] 03/17/2025 9:31 AM CDT [facility] Comment:[facility] link Low Coverage Regions TERT 03/17/2025 9:31 AM CDT [facility] Therapy Count 1 03/17/2025 9:31 AM CDT [facility]: Potential Therapy 1 Gene: 1097^BRAF^HGNC Variant: p.V600E Match Type: snvIndel Match Type Description: BRAF p.V600E Agent: Dabrafenib + Trametinib Drug Class: Combination (BRAF Inhibitor + MEK Inhibitor) Tissue: Ampullary Adenocarcinoma Association: Response Evidence Status: Consensus Evidence ID: NCCN KDB Variant: V600E - GOF NCCN Associated Evidence: Consensus, Ampullary Adenocarcinoma Label: FDA On Label FDA Approved?: Yes On label?: Yes 03/17/2025 9:31 AM CDT [facility] Trial Count 3 03/17/2025 9:31 AM CDT [facility]: Clinical Trial Match 1 Clinical Trial NCT ID: [id number] Clinical Trial Title: A Study to Assess the Efficacy and Safety of ECGS3867 in Participants With Cancer Harboring BRAF Alterations Clinical Trial URL: [email or web address] [email or web address].gov/[email or web address]/penny [email or web address] Clinical Phase: Phase 2 Clinical Trial Matches: BRAF p.V600E mutation Clinical Trial Distance and Location: [address] [place], [place] 03/17/2025 9:31 AM CDT [facility]: Clinical Trial Match 2 Clinical Trial NCT ID: [id number] Clinical Trial Title: A Phase 1/2 Study of Inlexisertib (DCC-3116) in Patients With KONSTANTIN/MAPK Pathway Mutant Solid Tumors Clinical Trial URL: [email or web address] [facility].gov/[email or web address]/penny [email or web address] Clinical Phase: Phase 1/Phase 2 Clinical Trial Matches: BRAF p.V600E mutation Clinical Trial Distance and Location: [address] [place], [place] 03/17/2025 9:31 AM CDT [facility]: Clinical Trial Match 3 Clinical Trial NCT ID: [id number] Clinical Trial Title: FOG-001 in Locally Advanced or Metastatic Solid Tumors Clinical Trial URL: [email or web address] [email or web address]/[email or web address]/[email or web address] Clinical Phase: Phase 1/Phase 2 Clinical Trial Matches: APC p.E941* mutation, APC p.M3378mq mutation Clinical Trial Distance and Location: [address] [place] [address] 03/17/2025 9:31 AM CDT [facility] Tumor Mutational [place] 21.7 m/MB 03/17/2025 9:31 AM CDT [facility] Microsatellite Instability Note MSI-High not detected 03/17/2025 9:31 AM CDT [facility] Blood specimen (specimen) 03/12/2025 12:11 AM CDT Narrative This result has genomic variants that were not included in this document. us Royal Newell MD MOLECULAR ORDERABLES Final Resu lt [facility] [address] [facility], [address] [place] [address], [facility] [address] [facility] [facility], [address] [place] [address] * PATHOLOGY (03/11/2025 11:24 AM CDT) CASE REPORT Surgical Pathology Report Case: [id number] Authorizing Provider: Royal Newell MD Collected: 03/11/2025 11:24 AM Ordering Location: [facility] Received: 03/11/2025 11:24 AM Services [facility] Pathologist: Sherry Jose MD Specimen: Other, specify 12:38 PM CDT [facility] FINAL DIAGNOSIS A request for [facility] was received on 03/11/[address] Royal Newell. This test was performed on tissue from case [id number]. The case report, slides, and blocks for this case were retrieved from archives. The pathologist reviewed the original pathology report, examined candidate slides, and selected the only block with tumor (A1). This selected material was forwarded to [facility] where the test was performed. The final report will be issued directly to the requesting physician. 12:38 PM CDT [facility] at 1238 CDT CLINICAL INFORMATION Z01.89 - Encounter for laboratory test [ICD-10-CM] 12:38 PM CDT [facility] COMMENT Special stain, immunohistochemical, and/or in situ hybridization results are interpreted with controls that demonstrate appropriate staining reactions. Note on use of immunohistochemistry reagents and in situ hybridization probes: These tests were developed and their performance characteristics determined by [facility], Department of Laboratory Medicine. It has not [...] part or completely in the following laboratories: [facility], CLIA #[id number] [address] [place] [address] [facility], CLIA #[id number] [address] [place] [address] [facility]/[place], [place] #[id number] [address] [place] [address] This report was created with the Jolicloud voice-activated dictation system. Inherent to this system is the possibility of syntax, grammar, punctuation and other errors that could impact the interpretation of the report. If there are interpretative questions about aspects of this report, please contact the performing pathologist. 12:38 PM CDT [facility] Tissue (Other, specify) 03/11/2025 11:24 AM CDT 03/11/2025 11:24 AM CDT us Royal Newell MD PATHOLOGY/CYTOLOGY ORDERABLES F inal Result Performing Organization Address City/[facility]/ZIP Co de Phone Number [facility] CLIA# [id number] [address] [place] [address] * [facility] NORMAL BLOOD (03/09/2025 2:35 PM CDT) [facility] 03/09/2025 11:00 PM CDT [facility] Comment:See NGS Report for R esults. Blood specimen (specimen) 03/09/2025 2:35 PM CDT 03/09/2025 2:36 PM CDT us Royal Newell MD MOLECULAR ORDERABLES Final Resu lt Performing Organization Address [facility]/ZIP Co de Phone Number [facility] [address] [facility], [address] [place] [address], [facility] [address] [facility], [address] [place] [address] * CHG IMMUNOGLOBULIN E (03/02/2025 3:26 PM CDT) us Royal Newell MD CHG - LABORATORY Final Result * CBC WITH DIFFERENTIAL (03/02/2025 1:58 PM [...] TB GOLD (03/02/2025 9:27 AM CDT) Blood Result Soni Newell MD CHEMISTRY ORDERABLES Final Resu lt from Last 3 Months Insurance RX [employer] RX Member Subscriber Plan / Payer (Ef fective 2017-Present) Name:Krissy Oneal Relation to Subscriber:Self Name:Krissy Oneal Payer ID:Not on file Group ID:[id number] Type:RX Medicare Part D Address: [place] [employer] PLANS (INTERNAL) [facility] Plans Advance Directives For more information, please contact: [phone] * Full Code (Latest Code Status on File) Date Activated Date Inactivated Comments 12/29/2021 8:18 PM 01/08/2022 8:26 PM * Full Code Date Activated Date Inactivated Comments 12/29/2021 5:49 AM 12/29/2021 8:17 PM * Full Code Date Activated Date Inactivated Comments 05/25/2021 12:46 PM 06/01/2021 9:14 PM * Full Code Date Activated Date Inactivated Comments 05/24/2021 5:14 AM 05/25/2021 12:46 PM Care Teams Lumber Tailer Relationship Specialty Start Date End Date Kathya Orona DO [address] [place] [address] [address] [place] [phone] PCP - General Family Practice 05/07/24
== END 2025-03-23 14:05 | disposition home or self-care (01) ==
PROVIDERS: PCP Family Medicine; Visit Provider Internal Medicine Hematology & Oncology
DX: C24.1 Malignant neoplasm of ampulla of Vater (principal)
CPT/HCPCS: 78815; A9552

== ENCOUNTER 2025-03-31 12:18 | Outpatient (CLI) | payer MEDICARE, MEDICAID, SELFPAY ==
--- OUTSIDE RECORDS SUMMARY | 2025-03-30 16:30 | XMS_ITS | Encounter Summary ---
Author Organization [facility] [employer] [facility] Address [address] [place] [address] Care Team Providers Care Maternity Floor Supervisor Name Role Phone Kathya Orona DO Primary Care Provider [phone]- [phone] Encounter Details Date Type Department Care Team (Late st Contact Info) Description 03/30/2025 4:30 PM CDT Telephone Check Up [facility] Oncology and Hematology - [place] [address] [facility] [address] [place] [address] Royal Newell MD [address] [facility] [address] [place] [address] Ampullary carcinoma (CMS/HCC) (Primary Dx) Social [...] Progress Notes * Royal Newell MD - 03/30/2025 5:24 PM CDT HEMATOLOGY / ONCOLOGY PROGRESS NOTE Patient Identification: Name: Krissy Oneal Age: 69 y.o. 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 EGD done on May 22 showed malignant appearing duodenal mass and biopsies were taken. Pathology came back positive for gastritis. [facility] where she had EUS and ERCP [...] surgery done on May 11, 2024. SUBJECTIVE This is a phone visit with patient to discuss PET scan results. She denies any other new complaints. Review of system Constitutional: [...] per nursing note Exam: This is a phone visit ECOG performance status 1 PATH FINAL [...] LFTs Primary cancer of ampulla of Vater ([facility]/HCC) 05/24/2021 Acute diarrhea 05/24/2021 COPD (chronic obstructive pulmonary disease) ([facility]) 05/24/2021 Acute pancreatitis without necrosis or infection, [...] received neoadjuvant chemotherapy with FOLFIRINOX regimen cycle 8/ completed October 31, 2021. Patient had pancreaticoduodenectomy [...] cm compared to 2 x 1.5 cm. PET scan was done on March 23 that showed FDG avid masses consistent with metastatic disease in the left hepatic lobe, peritoneal implants in the right pelvis in the left lower quadrant and 3 small foci of mild FDG uptake in T10, T12 and the lateral right iliac spine. Tempus testing was performed that showed BRAF mutation positive. I will start her on treatment with dabrafenib 175 mg twice a day with trametinib 2 mg daily. I havediscussed the side effects. I will see her back in 4 weeks with repeat labs. Repeat imaging studieswill be done after 2 to 3 months of treatment. Anemia. Continue iron and vitamin B12. Hypokalemia. Continue potassium supplement. Follow-up in 4 weeks. 03/30/2025 Royal Newell MD Patient's identity confirmed yes Patient gave verbal consent to have these services billed to their insurance and expressed understanding that co-insurance and deductible may apply: yes Patient was located at home. This encounter was completed via two-way synchronous audio only communication. Video technology available to provider, but patient not capable of, or doesn't consent to, use of video. Time spent in discussion with patient: 20 minutes. documented in this encounter Plan of Treatment Upcoming Encounters Date Type Department Care Team (Late st Contact Info) Description 04/29/2025 9:15 AM CDT Office Visit [facility] Oncology and Hematology [facility] [address] [facility] [address] [place] [address] Royal Newell MD [address] [facility] [address] [place] [address] Scheduled Orders Name Type Priority Associated Diagnoses Orde r Schedule CBC WITH DIFFERENTIAL Lab Stat Ampullary carcinoma (CMS/HCC) Expected: 04/30/2025, Expires: 07/29/2025 COMPREHENSIVE METABOLIC PANEL Lab Stat Ampullary carcinoma (CMS/HCC) Expected: 04/30/2025, Expires: 07/29/2025 CANCER ANTIGEN 19-9 Lab Routine Ampullary carcinoma (CMS/HCC) Expected: 04/30/2025, Expires: 07/29/2025 documented as of this encounter Visit Diagnoses Diagnosis Ampullary carcinoma (CMS/HCC)- Primary Malignant neoplasm of ampulla of Vater documented in this encounter Care Teams Maternity Floor Supervisor Relationship Specialty Start Date End Date Kathya Orona DO [address] [facility] [address] [place] [address] PCP - General Family Practice 05/07/24 documented as of this encounter
--- OUTSIDE RECORDS SUMMARY | 2025-03-31 12:24 | XMS_ITS | Continuity of Care Document ---
Author Organization [facility]. 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
--- OUTSIDE RECORDS SUMMARY | 2025-03-31 12:26 | XMS_ITS ---
Author Organization [facility] Address [address] [place] [address] Phone Care Team Providers Care Open Source Developer Name Role Phone Kathya Orona Primary Care Provider [phone]- [phone] Active Problems Problem Noted Date Diagnosed Date [...]
--- OUTSIDE RECORDS SUMMARY | 2025-03-31 12:26 | XMS_ITS | Clinical Summary ---
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 30 tablet 4 Active fluticasone [...] 1 tablet (10 mg total) by mouth heavy truck driver before breakfast 30 tablet 4 Active cyclobenzaprine (FLEXERIL) 10 mg tabletIndicatio ns:Muscle Spasm Take 1 tablet (10 mg total) by mouth 2 (two) times a day as needed for muscle spasms 30 tablet 4 Active hydroCHLOROthia zide (HYDRODIURIL) 25 mg tabletIndicatio ns:hypertension Take 1 tablet (25 mg total) by mouth 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 truck driver before breakfast 30 tablet 4 Active sertraline [...] on file Legal Sex Female 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 Gender Identity Not on file Sexual Orientation Not on file Occupation Industry Job Start Date Job End Date Disability Not on file Not on file Not on file Obstetrics History Last Filed Vital Signs Vital Sign Reading Time Taken Comments Blood Pressure 130/86 07/03/2024 10:53 AM TELEVISION AND RADIO REPAIRER Pulse 85 07/03/2024 10:53 AM TELEVISION AND RADIO REPAIRER Temperature 36.6 C (97.9 F) 07/03/2024 10:53 AM TELEVISION AND RADIO REPAIRER Respiratory Rate 16 07/03/2024 10:53 AM TELEVISION AND RADIO REPAIRER Oxygen Saturation 97% 07/03/2024 10:53 AM TELEVISION AND RADIO REPAIRER Inhaled Oxygen Concentration - - Weight 68.5 kg (151 lb) 07/03/2024 10:53 AM TELEVISION AND RADIO REPAIRER Height 157.5 cm (5' 2) 07/03/2024 10:53 AM TELEVISION AND RADIO REPAIRER Body Mass Index 27.62 07/03/2024 10:53 AM TELEVISION AND RADIO REPAIRER Plan of Treatment Health Maintenance Due Date [...] on stairs Contact your local community or [facility] for information on exercise, fall prevention programs, or options for improving home safety. Medical Devices Implanted Type Area Tax Assistant Device Identifier Shelf Expiration Date Model / Serial / Lot [employer]/C R Bard [id number] Bard [id number] Monofilament Soft Lightweight Low Profile Square - [id number] - [id number] Implanted:Qty: 1 on 05/11/2024 by Sabino Luke MD at [facility] Mesh N/A: Abdomen [employer]/C R Bard [id number] 11/06/2028 [id number] / [id number] / [id number] Insurance [facility]IC[facility] ADVANTAGE [facility] Address: [facility] [address] [place] [address] [facility] Address: [address] [address] [place] [address] IDPA MEDICARE ADVANTAGE IDPA Advance Directives For more information, please contact: [phone] * Full Code (Latest Code Status on File) Date Activated Date Inactivated Comments 05/11/2024 8:24 PM 05/19/2024 3:53 PM Care Teams Consumer Insight Analyst Relationship Specialty Start Date End Date GamalloydkapilKathya DO [facility] [address] [address] PCP - General Family Medicine 05/12/24 Sabino Luke MD [address] [place] [address] Referring Physician General Surgery 12/06/23
--- OUTSIDE RECORDS SUMMARY | 2025-03-31 12:26 | XMS_ITS | Encounter Summary ---
Author Organization [facility] [employer] [facility] Address [address] [place] [address] Care Team Providers Care Associate Editor Name Role Phone Kathya Orona DO Primary Care Provider [phone]- [phone] Reason for Visit * Reason Onset Date Comments Medication Review 03/31/2025 Patient called asking when she would get her new medication. Explained they are speciality meds and that the pharmacy is working on them and that they would come by mail. Encounter Details Date Type Department Care Team ([facility] Contact Info) Description 03/31/2025 Telephone [facility] Oncology and Hematology - [place] [address] [facility] [address] [address] Royal Newell MD [address] [facility] [address] [place] [address] Medication Review (Patient called asking when she would get her new medication. Explained they are speciality meds and that the pharmacy is working on them and that they would come by mail.) Social History Tobacco Use Types Packs/Day Years [...] Upcoming Encounters Date Type Department Care Team ([facility] Contact Info) Description 04/29/2025 9:15 AM CDT Office Visit [facility] Oncology and Hematology - [place] [address] [facility] [address] [place] [address] Royal Newell MD [address] [facility] [address] [place] [address] documented as of this encounter Visit Diagnoses Not on filedocumented in this encounter Care Teams Associate Editor Relationship Specialty Start Date End Date Kathya Orona DO [address] [facility] [address] [place] [address] PCP - General Family Practice 05/07/24 documented as of this encounter
--- OUTSIDE RECORDS SUMMARY | 2025-03-31 12:26 | XMS_ITS ---
Author Organization [facility] Address [address] [place] [address] Care Team Providers Care Endodontic Assistant Name Role Phone Sabino Luke MD Unavailable [phone] Kathya Orona DO Primary Care Provider [phone]- [phone] Active Problems Problem Noted Date Diagnosed Date [...]
--- OUTSIDE RECORDS SUMMARY | 2025-03-31 12:26 | XMS_ITS | Clinical Summary ---
Author Organization [facility] Address [address] [place] [address] Phone Care Team Providers Care Drapery Sewer Hand Name Role Phone GamalloydKathya dick Primary Care Provider [phone]- [phone] Allergies Active Allergy Reactions Criticality Noted Date [...] Anxiety. Active fluticasone propionate (FLONASE) 50 mcg/spray [place], Suspension nasal inhaler Administer 2 Sprays in [...] daily. liquid Active naloxone (NARCAN) 4 mg/spray [place], Non-Aerosol EMERGENCY USE ONLY: Administer 1 spray [...] MOUTH DAILY 100 Tablet 3 5 Active dabrafenib (TAFINLAR) 75 mg capsule Take 2 Capsules (150 mg) by mouth 2 times daily before meals. 120 Capsule 3 5 Active trametinib (MEKINIST) 2 mg tablet Take 1 Tablet (2 mg) by mouth daily before breakfast. 30 Tablet 2 5 Active Active Problems Problem Noted Date [...] Encounters Date Type Department Care Team Description 03/31/2025 Telephone [facility] Oncology and Hematology [facility] [address] [place] [address] Royal Newell MD Medication Review (Patient called asking when she would get her new medication. Explained they are speciality meds and that the pharmacy is working on them and that they would come by mail.) 03/30/2025 4:30 PM CDT Telephone Check Up [facility] On[facility] and [facility] [address] [place] [address] Roayl Newell MD Ampullary carcinoma (CMS/HCC) (Primary Dx) 03/29/2025 Telephone [facility] On[facility] and [facility] [address] [place] [address] Royal Newell MD Tempus Testing 03/25/2025 Orders Only [facility] Oncology and Hematology [facility] [address] [place] [address] Royal Newell MD 03/11/2025 11:23 AM CDT - 03/11/2025 11:59 PM CDT Hospital Encounter [facility] General Laboratory Services [address] [facility] [address] [facility] [place] [address] Royal Newell MD Discharge Disposition: Home or Self Care 03/09/2025 2:15 PM CDT Office Visit [facility] Oncology and Hematology - [place] [address] [place] [address] Royal Newell MD Ampullary carcinoma (CMS/HCC) (Primary Dx) 03/09/2025 Orders Only [facility] Oncology and Hematology - [place] [address] [place] [address] Royal Newell MD 03/04/2025 Orders Only [facility] Oncology and Hematology - [place] [address] [place] [address] Royal Newell MD from Last 3 Months [...] Description 04/29/2025 9:15 AM CDT Office Visit [facility] Oncology and Hematology - [place] [address] [facility] [address] [place] [address] Royal Newell MD [address] [facility] [address] [place] [address] Health Maintenance Due Date Last [...] years 1-dose series) 2013 OSTEOPOROSIS SCREENING 2018 COVID-19 Vaccine (3 - 2023-2 5 season) 2024 11/14/2020, 10/24/2020 DIABETES HBA1C Q 6 MONTHS 10/14/2024 04/16/2024 INFLUENZA VACCINE (#1) 2025 , 05/25/2023, 06/07/2022, Additional history exists PNEUMOCOCCAL VACCINE 50+ YEARS Completed 05/25/2023 , 06/07/2022 Medical Devices Implanted Type Area Community Health Navigator Device Identifier Shelf Expiration Date Model / Serial / Lot Clip Ligating Horizon Lg Ti [id number] - [facility] - [id number] Implanted:Qty : 1 on 12/29/2021 by Phil Mejia MD at [facility] Clip N/A: Abdomen TELEFLEX- WECK CLOSURE SYS [id number] / / Clip Ligating Horizon Ti Sm 24 Rp - [id number] Implanted:Qty : 2 on 12/29/2021 by Phil Mejia MD at [facility] Clip N/A: Abdomen TELEFLEX- WECK CLOSURE SYS [id number] RP / / Tube Feed Kangaroo 5fr 16in [id number] - [id number] Implanted:Qty : 1 on 12/29/2021 by Phil Mejia MD at [facility] Feeding Device N/A: Abdomen CARDINAL - PATIENT RECOVERY [id number] / / Description:INSERTED INTO PA NCREATIC DUCT Tube Feed [place] [id number] - [id number] Implanted:Qty : 1 on 12/29/2021 by Phil Mejia MD at [facility] Feeding Device N/A: Abdomen CARDINAL - PATIENT RECOVERY 04/11/2026 [id number] / / [id number] Description:WRAPPER CHECKED BY R.N. 01/01/22 Hemostat Surg Snow 2x4in 2081 - [id number] Implanted:Qty : 1 on 12/29/2021 by Phil Mejia MD at [facility] Hemostatic N/A: Abdomen J[employer] 09/11/2023 2082 / / [id number] Sealant Fibrin Vistaseal 10ml Vst10 - [id number] Implanted:Qty : 1 on 12/29/2021 by Phil Mejia MD at [facility] Sealant N/A: Abdomen J&J- [employer] 02/07/2023 [id number] / [id number] / [id number] Description:BOX CHECKED BY R .N. 01/01/2022 Stent Pncrtc Geenen 7fr 9cm [id number] - [id number] Implanted:Qty : 1 on 05/25/2021 by Omar Gonzalez MD at [facility] Stent RAYSHAWN- SUSAN - HALINA-RAYSHAWN [id number] 09/12/2023 [id number] / / [id number] Stent Bili Wallflex Rx 10x40 [id number] - [id number] Implanted:Qty : 1 on 05/25/2021 by Omar Gonzalez MD at [facility] SCI- ENDOSCOPY [id number] 02/13/2023 [id number] / / [id number] Procedures Procedure Name Priority Date/Time Associated Diagnosis Comments PET BONE IMG W CT SKL BSE MID THG Routine 03/23/2025 12:17 PM CDT [facility] Routine 03/17/2025 9:31 AM CDT [...] CDT from Last 3 Months Results * PET BONE IMG W CT SKB MDTH (03/23/2025 12:17 PM CDT) Anatomical Region Laterality Modality Positron Emissio n Tomography (PET) Royal Newell MD PE ORDERABLES Final Result * [facility] XF (03/17/2025 9:31 AM CDT) Reason for Study To identify mutations relevant to patient's cancer. 03/17/2025 9:31 AM CDT [facility] Genetic Diseases Assessed Cancer 03/17/2025 9:31 AM CDT [facility] Description of Ranges of DNA Sequences Examined 105 gene liquid biopsy 03/17/2025 9:31 AM CDT [facility] Overall Interpretation positive 03/17/2025 9:31 AM CDT [facility] Portal [email or web address]- [email or web address]/[email or web address] /[id number] 03/17/2025 9:31 AM CDT [facility] Comment:Tempus [...] Trial Match 1 Clinical Trial NCT ID: [id number] Clinical Trial Title: A Study to Assess the Efficacy and Safety of TSIH2756 in Participants With Cancer Harboring BRAF Alterations Clinical Trial URL: [email or web address]://clinicalt rials.gov/ct2/penny claire/[email or web address] Clinical Phase: Phase 2 Clinical Trial Matches: BRAF p.V600E mutation Clinical Trial Distance and Location: 10 nm, [place], [place] 03/17/2025 9:31 AM CDT [facility] Tempus: Clinical Trial Match 2 Clinical Trial NCT ID: [id number] Clinical Trial Title: A Phase 1/2 Study of Inlexisertib (DCC-3116) in Patients With KONSTANTIN/MAPK Pathway Mutant Solid Tumors Clinical Trial URL: [email or web address]://clinicalt rials.gov/ct2/penny [email or web address] Clinical Phase: Phase 1/Phase 2 Clinical Trial Matches: BRAF p.V600E mutation Clinical Trial Distance and Location: [address] [facility], [place] 03/17/2025 9:31 AM CDT [facility] Tempus: Clinical Trial Match 3 Clinical Trial NCT ID: [id number] Clinical Trial Title: FOG-001 in Locally Advanced or Metastatic Solid Tumors Clinical Trial URL: [email or web address] [email or web address].gov/ct2/[email or web address] [email or web address] Clinical Phase: Phase 1/Phase 2 Clinical Trial Matches: APC p.E941* mutation, APC p.S2078wg mutation Clinical Trial Distance and Location: [address] [facility], [place] 03/17/2025 9:31 AM CDT [facility] Tumor Mutational [place] 21.7 m/MB 03/17/2025 9:31 AM CDT [facility] Microsatellite Instability Note MSI-High not detected 03/17/2025 9:31 AM CDT [facility] Blood specimen (specimen) 03/12/2025 12:11 AM CDT Narrative This result has genomic variants that were not included in this document. Royal Newell MD MOLECULAR ORDERABLES Final Resu lt [facility] [address] [facility], [address] [place] [address], [facility] [address] [facility], [address] [place] [address] * PATHOLOGY (03/11/2025 11:24 AM CDT) CASE REPORT Surgical Pathology Report Case: [id number] Authorizing Provider: Royal Newell MD Collected: 03/11/2025 11:24 AM Ordering Location: [facility] Received: 03/11/2025 11:24 AM Services Chon Champagne Pathologist: Sherry Jose MD Specimen: Other, specify 12:38 PM CDT [facility] FINAL DIAGNOSIS A request for [facility] was received on 03/11/[address] Royal Newell. This test was performed on tissue from case [id number]. The case report, slides, and blocks for this case were retrieved from archives. The pathologist reviewed the original pathology report, examined candidate slides, and selected the only block with tumor (A1). This selected material was forwarded to [facility] where the test was performed. The final report will be issued directly to the requesting physician. 12:38 PM CDT [facility] at 1238 CDT CLINICAL INFORMATION Z01.89 - Encounter for laboratory test [ICD-10-CM] 12:38 PM CDT [facility] COMMENT Special stain, immunohistochemical, and/or in situ hybridization results are interpreted with controls that demonstrate appropriate staining reactions. Note on use of immunohistochemistry reagents and in situ hybridization probes: These tests were developed and their performance characteristics determined by [facility] Department of Laboratory Medicine. It has not [...] part or completely in the following laboratories: [facility], CLIA #[id number] [address] [place] [address] [facility], [place] #[id number] [address] [place] [address] [facility], CLIA #[id number] [address] [place] [address] This report was created with the [employer] voice-activated dictation system. Inherent to this system is the possibility of syntax, grammar, punctuation and other errors that could impact the interpretation of the report. If there are interpretative questions about aspects of this report, please contact the performing pathologist. 12:38 PM T [facility] Tissue (Other, specify) 03/11/2025 11:24 AM CDT 03/11/2025 11:24 AM CDT us Royal Newell MD PATHOLOGY/CYTOLOGY ORDERABLES F inal Result [facility]# [id number] [address] [place] [address] * [facility] NORMAL BLOOD (03/09/2025 2:35 PM CDT) [facility] 03/09/2025 11:00 PM CDT [facility] Comment:See NGS Report for R esults. Blood specimen (specimen) 03/09/2025 2:35 PM CDT 03/09/2025 2:36 PM CDT us Royal Newell MD MOLECULAR ORDERABLES Final Resu lt [facility] [address] [facility], [address] [place] [address], [facility] [address] [facility], [address] [place] [address] * CHG IMMUNOGLOBULIN E (03/02/2025 3:26 PM [...] RX GREY PLANS (INTERNAL) [facility] [address] Advance Directives For more information, please contact: [phone] * Full Code (Latest Code Status on File) Date Activated Date Inactivated Comments 12/29/2021 8:18 PM 01/08/2022 8:26 PM * Full Code Date Activated Date Inactivated Comments 12/29/2021 5:49 AM 12/29/2021 8:17 PM * Full Code Date Activated Date Inactivated Comments 05/25/2021 12:46 PM 06/01/2021 9:14 PM * Full Code Date Activated Date Inactivated Comments 05/24/2021 5:14 AM 05/25/2021 12:46 PM Care Teams Drapery Sewer Hand Relationship Specialty Start Date End Date Kathya Orona DO [address] [facility] [address] [place] [address] PCP - General Family Practice 05/07/24
--- NOTE | 2025-03-31 15:45 | WPDSIXMINUTE ---
Six Minute Walk Procedure Procedure Performed Pulmonary Stress Test (6 min walk) Six Minute Walk Six Minute Walk: This is a 6 minute walk test. The test was performed and interpreted in accordance with the 2014 ERS/ATS task force guidelines. Findings: The patient's resting room air oxygen saturation measured by pulse oximetry was 97%, the heart rate was 77 bpm, and the modified [place] dyspnea score was 0.5. Patient ambulated for 274 meters and oxygen saturation remained 96 to 98%. At the end of the study the heart rate was 106 bpm and the modified [place] dyspnea score was 3. The patient did not qualify for supplemental oxygen at rest or with ambulation. There are no prior studies for comparison.
== END 2025-03-31 12:19 | disposition home or self-care (01) ==
PROVIDERS: PCP Family Medicine; Visit Provider Internal Medicine Pulmonary Disease
DX: J44.9 Chronic obstructive pulmonary disease, unspecified (principal)
CPT/HCPCS: 94618

== ENCOUNTER 2025-04-19 08:39 | Outpatient (CLI) | payer MEDICARE, MEDICAID, SELFPAY ==
--- OUTSIDE RECORDS SUMMARY | 2005-06-26 19:00 | XMS_ITS | Continuity of Care Document ---
Author Organization [facility] Address [address] [place] [address] Phone Care Team Providers Care Chief Solution Architect Name Role Phone Markus De La Fuente MD Unavailable Unavailable Advance Directives Directive Yes / No Effective Date File Name No Information Encounters Encounter Description Practice Location Reason(s) For Visit Diagnoses Date Provider Providers Copied on Encounter [facility], [address], [place], [place], [id number], [place] tel:[phone] [facility] CERVICAL DISC DISPLACMNTOTH ADV EFF MED/BIO SUB Leisa Aparicio. [address] , [place], [place], [id number], [place]. tel:[phone] Family History Family Member Type Diagnosis Age [...]
--- OUTSIDE RECORDS SUMMARY | 2025-03-29 08:45 | XMS_ITS | Continuity of Care Document ---
Author Organization [facility] Address [address] [place] [phone] Phone Care Team Providers Care Group President Name Role Phone Ilya QUINTANA, FACC, Miroslava Unavailable Unavailab le Allergies, Adverse Reactions, Alerts Substance Reaction Status Criticality NAPROXEN SODIUM Active No Informati on Iodinated Contrast Media Active No Information Gadolinium-Containing Contrast Media Acti ve No Information Sulfa (Sulfonamide Antibiotics) Active No Information azithromycin Active No Information amoxicillin Active No Information PENICILLIN Active No Information Medications Medication Instructions Dosage Effective Dates (start - stop) Status Comments Ventolin HFA 90 mcg/actuation aerosol inhaler inhale 2 puff by inhalation route every 4 - 6 hours as needed as needed 180 MCG - Active alprazolam 1 mg tablet take 1 tablet by oral route every day 1 MG - Active amlodipine 10 mg tablet take 1 tablet by oral route every day 10 MG - Active Farxiga 10 mg tablet take 1 tablet by oral route every day in the morning 10 MG - Active dicyclomine 20 mg tablet take 1 tablet b y oral route 2 times every day 20 MG - Active hydrochlorothiazide 25 mg tablet take 0.5 tablet by oral route every day 12.5 MG - Active metformin 500 mg tablet take 1 tablet by oral route 2 times every day with morning and evening meals 500 MG - Active potassium chloride ER 20 mEq tablet,extended release take 1 tablet by oral route 2 times every day with food 20 MEQ - Active sertraline 50 mg tablet take 1 tablet by oral route every day 50 MG - Active simvastatin 20 mg tablet take 1 tablet b y oral route every day in the evening 20 MG - Active Vitamin B-12 500 mcg tablet take 1 tablet po once daily - Active ferrous sulfate 325 mg (65 mg iron) tablet take 1 tablet by oral route every day 325 MG - Active Procedures Procedure Date Complex e/m visit add on OFFICE/OUTPATIENT VISIT, NEW Advance Directives Directive Yes / No Effective Date File Name Other Directive No N/A N/A WARNING:The information contained in this section is historical and is provided for information only and does not constitute a legal document or any assurance that the information is still accurate. Please verify the information with the abraham of the legal document before using it for clinical purposes. Encounters Encounter Description Practice Location Reason(s) For Visit Diagnoses Date Provider Providers Copied on Encounter OFFICE/OUTPA TIENT VISIT, [facility], [address] [place], [place], [id number] , tel:[phone] [facility] New Patient (chief complaint) DM type IIHyperlipidemiaHTNBo dy mass index [BMI] 27.0-27.9, adultCOPDHx of smokingDyspneaChest painOther specified hepatic cancer Ilya [place]. [address] [place] [address], [place], [place], [id number] , [place]. tel:[phone] Referring Provider: Pedro Pablo Stearns, [address] [facility] [address], [place], [address]. tel:[phone] Family History Family Member Type Diagnosis Age At Onset Problem (finding) Family history of Hyper tension Problem (finding) Family history of Cance r, prostate Problem (finding) Family history of [facility] Problem (finding) Family history of Diabe shannan mellitus Payers Payer name Insurance type Covered green party ID Authormax ramos(s) [facility] [id number] PPO C [id number] INS TO BE ADDED CI [id number] Social History Type Description Quantity Date Captured Comments Alcohol Use Details Unknown Caffeine Use Details Unknown Tobacco Use Status Smoking Status Unknown if ever smoked Non-Smoking Tobacco Use Details : No Details Available : No Details Available Sex Female Vital Signs Date / Time: Height Weight BMI Pulse Rate Blood Pressure Temperature Respiratory Rate Body Surface Area Head Circumference Head Circ. Percentile Wt./Junaid. Percentile BMI percentile Pulse Ox Inhaled Ox 2:15 PM 62.00 in 67.132 kg (148.00 lbs) 27.0 7 kg/m eter (2) 82 /min 110/82 mm[Hg] 16 /min 1.71 meter(2) 97 % 21 % Chief Complaint And Reason For Visit From encounter dated '03/29/2025 13:45'. New Patient (chief complaint) Reason For Referral Reason For Referral No Information Plan Of Treatment Date Type Action Status Goal Dietary manageme nt education, guidance, and counseling completed Appointment Krissy Oneal BOOKED Future Order: Radiology Order [facility] ([id number]), Ordered on: Ordered History Of Present Illness Encounter Date Complaint History Of Prese nt Illness New Patient Functional Status Date Functional Assessmen t No Information Instructions Date Instruction Additional Infor mation Dietary management e ducation, guidance, and counseling Related to Body mass index [BMI] 27.0-27.9, adult Assessments Type Assessment Date assessment DM type II assessment Hyperlipidemia assessment HTN assessment Body mass index [BMI] 27.0-27.9, adult assessment COPD assessment Hx of smoking assessment Dyspnea assessment Chest pain assessment Other specified hepatic cancer A Patient Care Teams Name Effective Dates (start - stop) Status Members No Information
--- NOTE | 2025-04-19 | EST_ITS ---
Patient Info Name: Krissy Jaquez White Age: 69 years : 1955 Gender: Female Ht: 62 in Wt: 150 lbs BSA: 1.74 m2 HR: 68 bpm BP: 108 / 82 mmHg Exam Date: 04/19/2025 9:01 AM Patient Status: O Admit Date: 04/19/2025 Exam Type: CA stress jojo w NM A regadenoson stress test was performed. Staff Referring Physician: Miroslava Caraballo Attending Provider: Miroslava Caraballo Exercise Technologist: Nuzhat Beltrán Exercise Physician: Simeon Mistry DO Summary 1. 1. Negative lexiscan stress test for ischemic ST changes by ECG criteria. 2. 2. Stable hemodynamics throughout the test. 3. 3. Nuclear scan to follow and will be reported separately. Please correlate with it. 4. 4. Patient informed of the above results. Protocol: Lexiscan Stress ECG Details Stage: REST Duration (min): 2 min : 18 sec HR (bpm): 64 SBP (mmHg): 108 DBP (mmHg): 82 Stage: REST Duration (min): 9 min : 38 sec HR (bpm): 70 SBP (mmHg): 108 DBP (mmHg): 82 Stage: STAGE 1 Duration (min): 0 min : 59 sec HR (bpm): 100 SBP (mmHg): 131 DBP (mmHg): 92 Stage: RECOVERY Duration (min): 1 min : 0 sec HR (bpm): 103 SBP (mmHg): 131 DBP (mmHg): 92 Stage: RECOVERY Duration (min): 2 min : 0 sec HR (bpm): 100 SBP (mmHg): 131 DBP (mmHg): 92 Stage: RECOVERY Duration (min): 3 min : 0 sec HR (bpm): 97 SBP (mmHg): 102 DBP (mmHg): 84 Stage: RECOVERY Duration (min): 3 min : 12 sec HR (bpm): 97 SBP (mmHg): 102 DBP (mmHg): 84 Rest HR: 70 bpm Peak HR: 103 bpm Rest Sys BP: 108 mmHg Peak Sys BP: 131 mmHg Max Pred HR: 149 bpm % Max Pred HR: 69 % Target HR: 127 bpm Max RPP: 13,493 bpm*mmHg Termination Reason: Completed protocol Cardiac Symptoms: Shortness of breath Total Time: 1 min : 0 sec Rest Branch BP: 82 mmHg Peak Branch BP: 92 mmHg Total Dose: 0.4 mg Resting ECG Sinus rhythm. Stress ECG No ST changes. Arrhythmias None. Report Signatures
--- NOTE | ~2025-04-19 | NM_ITS ---
EXAMINATION: NM jojo stress w perfusion DATE: 04/19/2025 10:47 INDICATION: Hypertension TECHNIQUE: Rest images were obtained following intravenous administration of 9.55 mCi Tc99m tetrofosmin (Myoview). The patient was infused intravenously with Lexiscan (Regadenoson). Then, 32.2 mCi Tc99m tetrofosmin (Myoview) was administered intravenously, and stress images were obtained. Data was keo nstructed into short axis and horizontal and vertical long axis SPECT images. Gated SPECT images were also obtained. COMPARISON: None. FINDINGS: There is no definite reversible or fixed perfusion abnormality to suggest ischemia or infarction. There is normal left ventricular chamber size, wall motion and ejection fraction. Left ventricular ejection fraction measures >70%. IMPRESSION: 1. Normal myocardial perfusion at during stress. 2. Left ventricular ejection fraction measuring >70%. Reviewed, dictated and finalized at location A.
--- OUTSIDE RECORDS SUMMARY | 2025-04-19 08:50 | XMS_ITS | Clinical Summary ---
Author Organization [facility] Address [address] [place] [address] Care Team Providers Care Saw Sharpener Name Role Phone Sabino Luke MD Unavailable Kathya Orona DO Primary Care Provider [phone]- [phone] Allergies Active Allergy Reactions Criticality Noted Date [...] 1 tablet (10 mg total) by mouth member of technical staff before breakfast 30 tablet 4 Active fluticasone [...] 1 tablet (10 mg total) by mouth member of technical staff before breakfast 30 tablet 4 Active cyclobenzaprine (FLEXERIL) 10 mg tabletIndicatio ns:Muscle Spasm Take 1 tablet (10 mg total) by mouth 2 (two) times a day as needed for muscle spasms 30 tablet 4 Active hydroCHLOROthia zide (HYDRODIURIL) 25 mg tabletIndicatio ns:hypertension Take 1 tablet (25 mg total) by mouth member of technical staff before breakfast 30 tablet 4 Active sertraline [...] on file Legal Sex Female 8:15 AM SALVAGE SUPERVISOR Gender Identity Not on file Sexual Orientation Not on file Occupation Industry Job Start Date Job End Date Disability Not on file Not on file Not on file Obstetrics History Last Filed Vital Signs Vital Sign Reading Time Taken Comments Blood Pressure 130/86 07/03/2024 10:53 AM SALVAGE SUPERVISOR Pulse 85 07/03/2024 10:53 AM SALVAGE SUPERVISOR Temperature 36.6 C (97.9 F) 07/03/2024 10:53 AM SALVAGE SUPERVISOR Respiratory Rate 16 07/03/2024 10:53 AM SALVAGE SUPERVISOR Oxygen Saturation 97% 07/03/2024 10:53 AM SALVAGE SUPERVISOR Inhaled Oxygen Concentration - - Weight 68.5 kg (151 lb) 07/03/2024 10:53 AM SALVAGE SUPERVISOR Height 157.5 cm (5' 2) 07/03/2024 10:53 AM SALVAGE SUPERVISOR Body Mass Index 27.62 07/03/2024 10:53 AM SALVAGE SUPERVISOR Plan of Treatment Health Maintenance Due [...] on stairs Contact your local community or [facility] for information on exercise, fall prevention programs, or options for improving home safety. Medical Devices Implanted Type Area Chief Librarian Branch Device Identifier Shelf Expiration Date Model / Serial / Lot Davol Inc/C R Bard [id number] Monofilament Soft Lightweight Low Profile Square - [id number] - [id number] Implanted:Qty: 1 on 05/11/2024 by Sabino Luke MD at [facility] Mesh N/A: Abdomen Davol Inc/C R Bard [id number] 11/06/2028 [id number] / [id number] / [id number] Insurance [facility] MEDICARE ADVANTAGE [facility] MEDICARE Address: [facility] [address] [place] [address] [facility] MEDIC[facility] Address: [address] [address] [place] [address] IDPA MEDICARE ADVANTAGE IDPA Advance Directives For more information, please contact: [phone] * Full Code (Latest Code Status on File) Date Activated Date Inactivated Comments 05/11/2024 8:24 PM 05/19/2024 3:53 PM Care Teams Saw Sharpener Relationship Specialty Start Date End Date GamalloydkapilKathya DO [facility] [address] [address] PCP - General Family Medicine 05/12/24 Sabino Luke MD [address] [place] [address] Referring Physician General Surgery 12/06/23
--- OUTSIDE RECORDS SUMMARY | 2025-04-19 08:50 | XMS_ITS | Clinical Summary ---
Author Organization [facility] Address [address] [place] [address] Phone Care Team Providers Care Field Broomer Name Role Phone GamalloydKathya dick Primary Care Provider +1- [phone] Allergies Active Allergy Reactions Criticality Noted Date [...] Anxiety. Active fluticasone propionate (FLONASE) 50 mcg/spray [place], Suspension nasal inhaler Administer 2 Sprays in [...] daily. liquid Active naloxone (NARCAN) 4 mg/spray [place], Non-Aerosol EMERGENCY USE ONLY: Administer 1 spray [...] times daily before meals. 120 Capsule 3 04/06/2025 10:02 AM CDT 5 Active trametinib (MEKINIST) 2 mg tablet Take 1 Tablet (2 mg) by mouth daily before breakfast. 30 Tablet 2 04/06/2025 10:02 AM CDT 5 Active Active Problems Problem Noted Date [...] Encounters Date Type Department Care Team Description 04/13/2025 External Device Data STL ABSTRACTION Provider, Abstract 04/05/2025 Specialty Pharmacy [facility] [address] [place] [phone] Ashley Granado, PHARMACIST Specialty Pharmacy Clinical Assessment 04/05/2025 Specialty Pharmacy [facility] [address] [place] [phone] Ashley Granado, PHARMACIST Specialty Pharmacy Refill Coordination 04/05/2025 Specialty Pharmacy [facility] [address] [place] [phone] Ashley Granado, PHARMACIST Specialty Pharmacy Prior Auth Coordination 03/31/2025 Specialty Pharmacy [facility] [address] [place] [phone] Carly Mosqueda PHARMACIST Specialty Pharmacy Clinical Intervention 03/31/2025 Specialty Pharmacy [facility] [address] [place] [phone] Carly Mosqueda, PHARMACIST Specialty Pharmacy Prior Auth Coordination 03/31/2025 Telephone [facility] Oncology and Hematology - [address] [place] [phone] Royal Newell MD Medication Review (Patient called asking when she would get her new medication. Explained they are speciality meds and that the pharmacy is working on them and that they would come by mail.) 03/30/2025 4:30 PM CDT Telephone Check Up [facility] Oncology and Hematology [facility] [address] [phone] Royal Newell MD Ampullary carcinoma (CMS/HCC) (Primary Dx) 03/29/2025 Telephone [facility] Oncology and Hematology [facility] [address] [phone] Royal Newell MD [facility] Testing 03/25/2025 Orders Only [facility] Oncology [facility] Hematology [facility] [address] [phone] Royal Newell MD 03/11/2025 11:23 AM CDT - 03/11/2025 11:59 PM CDT Hospital Encounter [facility] [address] [place] [address] Royal Newell MD Discharge Disposition: Home or Self Care 03/09/2025 2:15 PM CDT Office Visit [facility] Oncology [facility] [address] [phone] Royal Newell MD Ampullary carcinoma (CMS/HCC) (Primary Dx) 03/09/2025 Orders Only [facility] Oncology and Hematology [facility] [address] [place] [address] Royal Newell MD 03/04/2025 Orders Only [facility] Oncology and Hematology [facility] [address] [place] [address] Royal Newell MD from Last 3 Months [...] Description 04/29/2025 9:15 AM CDT Office Visit [facility] Oncology and Hematology - [place] [address] [place] [address] Royal Newell MD [address] [facility] [address] [place] [address] Health Maintenance Due Date Last [...] 2025 , 05/25/2023, 06/07/2022, Additional history exists COVID-19 Vaccine (3 - 2024-2 6 season) 2025 11/14/2020, 10/24/2020 PNEUMOCOCCAL VACCINE 50+ YEARS Completed 05/25/2023 , 06/07/2022 Medical Devices Implanted Type Area Commissary Production Supervisor Device Identifier Shelf Expiration Date Model / Serial / Lot Clip Ligating Horizon Lg Ti [id number] - Csc - [id number] Implanted:Qty : 1 on 12/29/2021 by Phil Mejia MD at [facility] N/A: Abdomen TELEFLEX- WECK CLOSURE SYS [id number] / / Clip Ligating Horizon Ti Sm [id number] Rp - [id number] Implanted:Qty : 2 on 12/29/2021 by Phil Mejia MD at [facility] N/A: Abdomen TELEFLEX- WECK CLOSURE SYS [id number] RP / / Tube Feed Kangaroo 5fr 16in [id number] - [id number] Implanted:Qty : 1 on 12/29/2021 by Phil Mejia MD at [facility] Feeding Device N/A: Abdomen CARDINAL - PATIENT RECOVERY [id number] / / Description:INSERTED INTO PA NCREATIC DUCT Tube Feed Wingate [id number] - [id number] Implanted:Qty : 1 on 12/29/2021 by Phil Mejia MD at [facility] Feeding Device N/A: Abdomen CARDINAL - PATIENT RECOVERY 04/11/2026 [id number] / / [id number] Description:WRAPPER CHECKED BY R.NAlina 01/01/22 Hemostat Surg Snow 2x4in 2081 - [id number] Implanted:Qty : 1 on 12/29/2021 by Phil Mejia MD at [facility] Hemostatic N/A: Abdomen J&J- ETHICON INC 09/11/2023 2082 / / [id number] Sealant Fibrin Vistaseal 10ml Vst10 - [id number] Implanted:Qty : 1 on 12/29/2021 by Phil Mejia MD at [facility] Sealant N/A: Abdomen J&J- ETHICON INC 02/07/2023 VST10 / [id number] / [id number] Description:BOX CHECKED BY R .NAlina 01/01/2022 Stent Pncrtc Geenen 7fr 9cm [id number] - [id number] Implanted:Qty : 1 on 05/25/2021 by Omar Gonzalez MD at [facility] Stent COOK- ENDOSCOPY - HALINA-COOK [id number] 09/12/2023 [id number] / / [id number] Stent Bili Wallflex Rx 10x40 [id number] - [id number] Implanted:Qty : 1 on 05/25/2021 by Omar Gonzalez MD at [facility] Stent BOSTON SCI- ENDOSCOPY [id number] 02/13/2023 [id number] / / [id number] Procedures Procedure Name Priority Date/Time Associated Diagnosis Comments PET BONE IMG W CT SKL BSE MID THG Routine 03/23/2025 12:17 PM CDT [facility]F Routine 03/17/2025 9:31 AM CDT Ampullary carcinoma (CMS/HCC) PATHOLOGY Pathology 03/11/2025 11:24 AM CDT Encounter for laboratory test [facility] DNA AND RNA Routine 03/09/2025 2:35 PM CDT Ampullary carcinoma (CMS/HCC) [facility] NORMAL BLOOD Routine 2:35 PM [...] * PET BONE IMG W CT SKB MD (03/23/2025 12:17 PM CDT) Anatomical Region Laterality [...] AM CDT [facility] [email or web address] 03/17/2025 9:31 AM CDT [facility] Comment:[facility] [...] Trial Match 1 Clinical Trial NCT ID: [id number] Clinical Trial Title: A Study to Assess the Efficacy and Safety of PGBS2322 in Participants With Cancer Harboring BRAF Alterations Clinical Trial URL: [email or web address]://clinicalt rials.gov/ct2/[email or web address] Clinical Phase: Phase 2 Clinical Trial Matches: BRAF p.V600E mutation Clinical Trial Distance and Location: [address] [place], [place] 03/17/2025 9:31 AM CDT [facility]: Clinical Trial Match 2 Clinical Trial NCT ID: [id number] Clinical Trial Title: A Phase 1/2 Study of Inlexisertib (DCC-3116) in Patients With KONSTANTIN/MAPK Pathway Mutant Solid Tumors Clinical Trial URL: [email or web address] rials.gov/ct2/[email or web address] Clinical Phase: Phase 1/Phase 2 Clinical Trial Matches: BRAF p.V600E mutation Clinical Trial Distance and Location: [address] [place], [place] 03/17/2025 9:31 AM CDT [facility]: Clinical Trial Match 3 Clinical Trial NCT ID: [id number] Clinical Trial Title: FOG-001 in Locally Advanced or Metastatic Solid Tumors Clinical Trial URL: [email or web address] rials.gov/ct2/[email or web address] Clinical Phase: Phase 1/Phase 2 Clinical Trial Matches: APC p.E941* mutation, APC p.V8776gv mutation Clinical Trial Distance and Location: [address] [place], [place] 03/17/2025 9:31 AM CDT [facility] Tumor Mutational [place] 21.7 m/MB 03/17/2025 9:31 AM CDT [facility] Microsatellite Instability Note MSI-High not detected 03/17/2025 9:31 AM CDT [facility] Blood specimen (specimen) 03/12/2025 12:11 AM CDT Narrative This result has genomic variants that were not included in this document. Royal Newell MD MOLECULAR ORDERABLES Final Resu lt [facility] [address], [address] [place] [address], [facility] [address] [place] [address] * PATHOLOGY (03/11/2025 11:24 AM CDT) CASE REPORT Surgical Pathology Report Case: [id number] Authorizing Provider: Royal Newell MD Collected: 03/11/2025 11:24 AM Ordering Location: [facility] Received: 03/11/2025 11:24 AM Services [facility] Pathologist: Sherry Jose MD Specimen: Other, specify 12:38 PM CDT [facility] State [facility] FINAL DIAGNOSIS A request for [facility] was received on 03/11/[address] Royal Newell. This test was performed on tissue from case [id number]. The case report, slides, and blocks for this case were retrieved from archives. The pathologist reviewed the original pathology report, examined candidate slides, and selected the only block with tumor (A1). This selected material was forwarded to [facility] where the test was performed. The final report will be issued directly to the requesting physician. 12:38 PM CDT [facility] at 1238 CDT CLINICAL INFORMATION Z01.89 - Encounter for laboratory test [ICD-10-CM] 12:38 PM CDT [facility] State [facility] COMMENT Special stain, immunohistochemical, and/or in situ hybridization results are interpreted with controls that demonstrate appropriate staining reactions. Note on use of immunohistochemistry reagents and in situ hybridization probes: These tests were developed and their performance characteristics determined by [facility] Department of Laboratory Medicine. It has not [...] part or completely in the following laboratories: [facility], CLIA #[id number] [address] [place] [address] [facility], CLIA #[id number] [address] [place] [address] [facility], CLIA #[id number] [address] [place] [address] This report was created with the Plasticell voice-activated dictation system. Inherent to this system is the possibility of syntax, grammar, punctuation and other errors that could impact the interpretation of the report. If there are interpretative questions about aspects of this report, please contact the performing pathologist. 12:38 PM CDT [facility] Tissue (Other, specify) 03/11/2025 11:24 AM CDT 03/11/2025 11:24 AM CDT Royal Newell MD PATHOLOGY/CYTOLOGY ORDERABLES F inal Result [facility] CLIA# [id number] [address] [place] [address] * [facility] NORMAL BLOOD (03/09/2025 2:35 PM CDT) [facility] 03/09/2025 11:00 PM CDT [facility] Comment:See NGS Report for R esults. Blood specimen (specimen) 03/09/2025 2:35 PM CDT 03/09/2025 2:36 PM CDT us Royal Newell MD MOLECULAR ORDERABLES Final Resu lt [facility] [address] [place] [address], [facility] [address] [place] [address] * CHG IMMUNOGLOBULIN E (03/02/2025 3:26 PM [...] [facility] [employer] (INTERNAL) [place] [address] Advance Directives For more information, please contact: [phone] * Full Code (Latest Code Status on File) Date Activated Date Inactivated Comments 12/29/2021 8:18 PM 01/08/2022 8:26 PM * Full Code Date Activated Date Inactivated Comments 12/29/2021 5:49 AM 12/29/2021 8:17 PM * Full Code Date Activated Date Inactivated Comments 05/25/2021 12:46 PM 06/01/2021 9:14 PM * Full Code Date Activated Date Inactivated Comments 05/24/2021 5:14 AM 05/25/2021 12:46 PM Care Teams Field Broomer Relationship Specialty Start Date End Date Kathya Orona DO [address] [place] [address] [address] [place] [phone] PCP - General Family Practice 05/07/24
--- OUTSIDE RECORDS SUMMARY | 2025-04-19 08:50 | XMS_ITS ---
Author Organization [facility] Address [address] [place] [phone] Phone Care Team Providers Care Earrings Fabricator Name Role Phone Kathya Orona Primary Care Provider +1- [phone] Active Problems Problem Noted Date Diagnosed Date [...]
--- OUTSIDE RECORDS SUMMARY | 2025-04-19 08:50 | XMS_ITS ---
Author Organization [facility] Address [address] [place] [address] Care Team Providers Care Hand Mounter Name Role Phone Sabino Luke MD Unavailable [phone] Kathya Orona DO Primary Care Provider [phone]- [phone] Active Problems Problem Noted Date Diagnosed Date [...]
--- OUTSIDE RECORDS SUMMARY | 2025-04-19 08:51 | XMS_ITS ---
Author Organization [facility] Address [address] [place] [address] Phone Care Team Providers Care Canvas Baster Jumpbasting Name Role Phone Gamalloydkapil Kathya Curtis DO Primary Care Provider +1- [phone] Pancreatic Adenocarcinoma Status:Enrolled (Active) Start date:04/16/2025 Enrollment date:04/16/2025 Enrollment reason:Conversion Current support & services provided:Clinical Management, Refill Management, Benefits and PA Management Linked medications:dabrafenib mesylate (Active), trametinib dimethyl sulfoxide (Active) Overview Conversion Continued Care and Services Coordination
== END 2025-04-19 08:40 | disposition home or self-care (01) ==
PROVIDERS: PCP Family Medicine; Visit Provider Internal Medicine Cardiovascular Disease
DX: E11.9 Type 2 diabetes mellitus without complications (principal); E78.5 Hyperlipidemia, unspecified; I10 Essential (primary) hypertension; R06.00 Dyspnea, unspecified; R07.9 Chest pain, unspecified
CPT/HCPCS: 78452; 93017; A9502; J2785

== ENCOUNTER 2025-04-28 09:33 | Outpatient (CLI) | payer MEDICARE, MEDICAID, SELFPAY ==
[2025-04-28 09:56] LABS: Hematocrit 39.5 % (37.0-47.0); Hemoglobin 12.8 g/dL (12.0-15.0); Mean Corpuscular HGB Conc 32.4 g/dl (32-36); Mean Corpuscular Hemoglobin 27.2 pg (26-34); Mean Corpuscular Volume 84.0 fl (80-100); Platelet Count Result 202 k/mm3 (150-375); Red Blood Count 4.70 M/mm3 (4.2-5.4); White Blood Count 4.5 K/mm3 (4.5-10.0)
--- OUTSIDE RECORDS SUMMARY | 2025-04-28 10:26 | XMS_ITS | Clinical Summary ---
Author Organization [facility] Address [address] [place] [address] Phone Care Team Providers Care Cena Name Role Phone GamalloydKathya dick Primary Care Provider [phone] Allergies Active Allergy Reactions Criticality Noted Date [...] Anxiety. Active fluticasone propionate (FLONASE) 50 mcg/spray [place], Suspension nasal inhaler Administer 2 Sprays in [...] daily. liquid Active naloxone (NARCAN) 4 mg/spray [place], Non-Aerosol EMERGENCY USE ONLY: Administer 1 spray [...] Encounters Date Type Department Care Team Description 04/27/2025 External Device Data [facility] ABSTRACTION Provider, Abstract 04/13/2025 External Device Data [facility] ABSTRACTION Provider, Abstract 04/05/2025 Specialty Pharmacy [facility] [address] [place] [phone] Ashley Granado, PHARMACIST Specialty Pharmacy Clinical Assessment 04/05/2025 Specialty Pharmacy [facility] [address] [place] [phone] Ashley Granado, PHARMACIST Specialty Pharmacy Refill Coordination 04/05/2025 Specialty Pharmacy [facility] [address] [place] [phone] Ashley Granado, PHARMACIST Specialty Pharmacy Prior Auth Coordination 03/31/2025 Specialty Pharmacy [facility] [address] [place] [phone] Carly Mosqueda PHARMACIST Specialty Pharmacy Clinical Intervention 03/31/2025 Specialty Pharmacy [facility] [address] [place] [phone] Carly Mosqueda, PHARMACIST Specialty Pharmacy Prior Auth Coordination 03/31/2025 Telephone [facility] Oncology and Hematology [address] [place] [phone] Royal Newell MD Medication Review (Patient called asking when she would get her new medication. Explained they are speciality meds and that the pharmacy is working on them and that they would come by mail.) 03/30/2025 4:30 PM CDT Telephone Check Up [facility] Oncology [facility] Hematology [facility] [address] [place] [address] Royal Newell MD Ampullary carcinoma (CMS/HCC) (Primary Dx) 03/29/2025 Telephone [facility] Oncology [facility] Hematology [facility] [address] [place] [address] Royal Newell MD [facility] Testing 03/25/2025 Orders Only [facility] Oncology [facility] [address] [place] [address] Royal Newell MD 03/11/2025 11:23 AM CDT - 03/11/2025 11:59 PM CDT Hospital Encounter [facility] [address] [place] [address] Royal Newell MD Discharge Disposition: Home or Self Care 03/09/2025 2:15 PM CDT Office Visit [facility] Oncology [facility] [address] [place] [address] Royal Newell MD Ampullary carcinoma (CMS/HCC) (Primary Dx) 03/09/2025 Orders Only [facility] Oncology and Hematology [facility] [address] [place] [address] Royal Newell MD 03/04/2025 Orders Only [facility] Oncology [facility] Hematology [facility] [address] [place] [address] Royal Newell MD from Last 3 Months [...] Care Team (Late st Contact Info) Description 05/03/2025 2:00 PM CDT Office Visit [facility] Oncology and Hematology - [place] [address] [place] [address] Royal Newell MD [address] [facility] [address] [place] [address] Health Maintenance Due Date Last [...] , 06/07/2022 Medical Devices Implanted Type Area Elderly Sitter Device Identifier Shelf Expiration Date Model / Serial / Lot Clip Ligating Horizon Lg Ti [id number] - Csc - [id number] Implanted:Qty : 1 on 12/29/2021 by Phil Mejia MD at [facility] N/A: Abdomen TELEFLEX- WECK CLOSURE SYS [id number] / / Clip Ligating Horizon Ti Sm 24 [id number] Rp - [id number] Implanted:Qty : 2 on 12/29/2021 by Phil Mejia MD at [facility] N/A: Abdomen TELEFLEX- WECK CLOSURE SYS [id number] RP / / Tube Feed Kangaroo 5fr 16in [id number] - [id number] Implanted:Qty : 1 on 12/29/2021 by Phil Mejia MD at [facility] Feeding Device N/A: Abdomen CARDINAL - PATIENT RECOVERY [id number] / / Description:INSERTED INTO PA NCREATIC DUCT Tube Feed Quilcene [id number] - [id number] Implanted:Qty : 1 on 12/29/2021 by Phil Mejia MD at [facility] Feeding Device N/A: Abdomen CARDINAL - PATIENT RECOVERY 04/11/2026 [id number] / / [id number] Description:WRAPPER CHECKED BY R.NAlina 01/01/22 Hemostat Surg Snow 2x4in 2081 - [id number] Implanted:Qty : 1 on 12/29/2021 by Phil Mejia MD at [facility] Hemostatic N/A: Abdomen J&J- [employer] 09/11/2023 208 / / [id number] Sealant Fibrin Vistaseal 10ml Vst10 - [id number] Implanted:Qty : 1 on 12/29/2021 by Phil Mejia MD at [facility] Sealant N/A: Abdomen J&J- [employer] 02/07/2023 VST10 / [id number] / [id number] Description:BOX CHECKED BY Melisa Nowak 01/01/2022 Stent Pncrtc Geenen 7fr 9cm [id number] - [id number] Implanted:Qty : 1 on 05/25/2021 by Omar Gonzalez MD at [facility] Stent COOK- ENDOSCOPY - HALINA-COOK [id number] 09/12/2023 [id number] / / [id number] Stent Bili Wallflex Rx 10x40 [id number] - [id number] Implanted:Qty : 1 on 05/25/2021 by Omar Gonzalez MD at [facility] Stent BOSTON SCI- ENDOSCOPY [id number] 02/13/2023 [id number] / / [id number] Procedures Procedure Name Priority Date/Time Associated Diagnosis [...] AM CDT [facility] Portal [email or web address] 03/17/2025 9:31 AM CDT [facility] Comment:Tempus [...] Trial Match 1 Clinical Trial NCT ID: [id number] Clinical Trial Title: A Study to Assess the Efficacy and Safety of BGVY0317 in Participants With Cancer Harboring BRAF Alterations Clinical Trial URL: [email or web address] [facility] [place] [facility].gov/ct2/[email or web address] claire/[email or web address] Clinical Phase: Phase 2 Clinical Trial Matches: BRAF p.V600E mutation Clinical Trial Distance and Location: [address] [place], [place] 03/17/2025 9:31 AM CDT [facility] Tempus: Clinical Trial Match 2 Clinical Trial NCT ID: [id number] Clinical Trial Title: A Phase 1/2 Study of Inlexisertib (DCC-3116) in Patients With KONSTANTIN/MAPK Pathway Mutant Solid Tumors Clinical Trial URL: [email or web address] [facility] [email or web address] hospit[facility].gov/ct2/[email or web address] claire/[email or web address] Clinical Phase: Phase 1/Phase 2 Clinical Trial Matches: BRAF p.V600E mutation Clinical Trial Distance and Location: [address] [place], [place] 03/17/2025 9:31 AM CDT [facility] Tempus: Clinical Trial Match 3 Clinical Trial NCT ID: [id number] Clinical Trial Title: FOG-001 in Locally Advanced or Metastatic Solid Tumors Clinical Trial URL: [email or web address] [email or web address] [facility].gov/ct2/[email or web address] [email or web address] Clinical Phase: Phase 1/Phase 2 Clinical Trial Matches: APC p.E941* mutation, APC p.V0911vs mutation Clinical Trial Distance and Location: [address] [place], [place] 03/17/2025 9:31 AM CDT [facility] Tumor Mutational [place] 21.7 m/MB 03/17/2025 9:31 AM CDT [facility] Microsatellite Instability Note MSI-High not detected 03/17/2025 9:31 AM CDT [facility] Blood specimen (specimen) 03/12/2025 12:11 AM CDT Narrative This result has genomic variants that were not included in this document. Royal Newell MD MOLECULAR ORDERABLES Final Resu lt [facility] [address], [address] [place] [address], [facility] [address] [place], [place] [address] * PATHOLOGY (03/11/2025 11:24 AM CDT) CASE REPORT Surgical Pathology Report Case: [id number] Authorizing Provider: Royal Newell MD Collected: 03/11/2025 11:24 AM Ordering Location: [facility] Received: 03/11/2025 11:24 AM Services [facility] Pathologist: Sherry Jose MD Specimen: Other, specify 12:38 PM CDT [facility] O&P Pro [facility] FINAL DIAGNOSIS A request for [facility] was received on 03/11/[address] Royal Newell. This test was performed on tissue from case [id number]. The case report, slides, and blocks for this case were retrieved from archives. The pathologist reviewed the original pathology report, examined candidate slides, and selected the only block with tumor (A1). This selected material was forwarded to [facility] where the test was performed. The final report will be issued directly to the requesting physician. 12:38 PM CDT [facility] at 1238 CDT CLINICAL INFORMATION Z01.89 - Encounter for laboratory test [ICD-10-CM] 12:38 PM CDT [facility] COMMENT Special stain, immunohistochemical, and/or in situ hybridization results are interpreted with controls that demonstrate appropriate staining reactions. Note on use of immunohistochemistry reagents and in situ hybridization probes: These tests were developed and their performance characteristics determined by [facility], Department of Laboratory Medicine. It has not [...] part or completely in the following laboratories: [facility], CLIA #[id number] [address] [place] [address] [facility], CLIA #[id number] [address] [place] [address] [facility], CLIA #[id number] [address] [place] [address] This report was created with the eParachute voice-activated dictation system. Inherent to this system is the possibility of syntax, grammar, punctuation and other errors that could impact the interpretation of the report. If there are interpretative questions about aspects of this report, please contact the performing pathologist. 12:38 PM CDT [facility] Tissue (Other, specify) 03/11/2025 11:24 AM CDT 03/11/2025 11:24 AM CDT Royal Newell MD PATHOLOGY/CYTOLOGY ORDERABLES F inal Result [facility] CLIA# [id number] [address] [facility] [place] [place] [address] * [facility] NORMAL BLOOD (03/09/2025 2:35 PM CDT) [facility] Portal 03/09/2025 11:00 PM CDT [facility] Comment:See NGS Report for R esults. Blood specimen (specimen) 03/09/2025 2:35 PM CDT 03/09/2025 2:36 PM CDT us Royal Newell MD MOLECULAR ORDERABLES Final Resu lt [facility] [address], [address] [place] [address], [facility] [address] [place] [address] * CHG IMMUNOGLOBULIN E (03/02/2025 3:26 PM CDT) us Royal Newell MD CHG - LABORATORY Final Result * CBC WITH DIFFERENTIAL (03/02/2025 1:58 PM CDT) Blood us Royal Newell MD HEMATOLOGY ORDERABLES Final Res ult * BRAIN NATRIURETIC PEPTIDE, BNP OR PROBNP (03/02/2025 1:56 PM CDT) Blood Result [facility] us Royal Newell MD CHEMISTRY ORDERABLES Final [...] Advance Directives For more information, please contact: [phone] * Full Code (Latest Code Status on File) Date Activated Date Inactivated Comments 12/29/2021 8:18 PM 01/08/2022 8:26 PM * Full Code Date Activated Date Inactivated Comments 12/29/2021 5:49 AM 12/29/2021 8:17 PM * Full Code Date Activated Date Inactivated Comments 05/25/2021 12:46 PM 06/01/2021 9:14 PM * Full Code Date Activated Date Inactivated Comments 05/24/2021 5:14 AM 05/25/2021 12:46 PM Care Teams Cena Relationship Specialty Start Date End Date Kathya Orona DO [address] [facility] [address] [place] [phone] PCP - General Family Practice 05/07/24
--- OUTSIDE RECORDS SUMMARY | 2025-04-28 10:26 | XMS_ITS ---
Author Organization [facility] Address [address] [place] [address] Phone Care Team Providers Care Steel Plate Printer Name Role Phone Kathya Orona Primary Care Provider +1- [phone] Active Problems Problem Noted Date Diagnosed Date [...]
--- OUTSIDE RECORDS SUMMARY | 2025-04-28 10:27 | XMS_ITS | Encounter Summary ---
Author Organization [facility] Address [address] [place] [address] Care Team Providers Care Sales Intern Name Role Phone Kathya Orona DO Primary Care Provider +1- [phone] Encounter Details Date Type Department Care Team (Late Contact Info) Description 04/27/2025 External Device Data [facility] ABSTRACTION [...] Upcoming Encounters Date Type Department Care Team ([facility] Contact Info) Description 05/03/2025 2:00 PM CDT Office Visit [facility] Oncology and Hematology - [place] [address] [facility] [address] [place] [address] Royal Newell MD [address] [facility] [address] [place] [address] documented as of this encounter Visit Diagnoses Not on filedocumented in this encounter Care Teams Sales Intern Relationship Specialty Start Date End Date Kathya Orona DO [address] [place] [address] [address] [place] [address] PCP - General Family Practice 05/07/24 documented as of this encounter
--- OUTSIDE RECORDS SUMMARY | 2025-04-28 10:27 | XMS_ITS ---
Author Organization [facility] Address [address] [place] [address] Care Team Providers Care Logistics Analytics Manager Name Role Phone Sabino Luke MD Unavailable [phone] Kathya Orona DO Primary Care Provider [phone]- [phone] Active Problems Problem Noted Date Diagnosed Date [...]
--- OUTSIDE RECORDS SUMMARY | 2025-04-28 10:27 | XMS_ITS ---
Author Organization [facility] Address [address] [place] [address] Phone Care Team Providers Care News Writer Name Role Phone Gamalloydkapil Kathya Curtis DO Primary Care Provider +1- [phone] Pancreatic Adenocarcinoma Status:Enrolled (Active) Start date:04/16/2025 Enrollment date:04/16/2025 Enrollment reason:Conversion Current support & services provided:Clinical Management, Refill Management, Benefits and PA Management, Financial Assistance Linked medications:dabrafenib mesylate (Active), trametinib dimethyl sulfoxide (Active) Overview Conversion Continued Care and Services Coordination
--- OUTSIDE RECORDS SUMMARY | 2025-04-28 10:27 | XMS_ITS | Clinical Summary ---
Author Organization [facility] Address [address] [place] [address] Care Team Providers Care Land Planner Name Role Phone Sabino Luke MD Unavailable Kathya Orona DO Primary Care Provider +1- [phone] Allergies Active Allergy Reactions Criticality Noted Date [...] 1 tablet (10 mg total) by mouth camera engineer before breakfast 30 tablet 4 Active [...] 1 tablet (10 mg total) by mouth camera engineer before breakfast 30 tablet 4 Active cyclobenzaprine (FLEXERIL) 10 mg tabletIndicatio ns:Muscle Spasm Take 1 tablet (10 mg total) by mouth 2 (two) times a day as needed for muscle spasms 30 tablet 4 Active hydroCHLOROthia zide (HYDRODIURIL) 25 mg tabletIndicatio ns:hypertension Take 1 tablet (25 mg total) by mouth camera engineer before breakfast 30 tablet 4 Active [...] you are drinking? Patient does not drink 4 Q3: How often do you have si [...] file Legal Sex Female 8:15 AM SUPERVISOR METAL FURNITURE FABRICATION Gender Identity Not on file Sexual Orientation Not on file Occupation Industry Job Start Date Job End Date Disability Not on file Not on file Not on file Obstetrics History Last Filed Vital Signs Vital Sign Reading Time Taken Comments Blood Pressure 130/86 07/03/2024 10:53 AM SUPERVISOR [employer]AL [employer]ABRICATION Pulse 85 07/03/2024 10:53 AM SUPERVISOR METAL [employer]URN[employer] FABRICATION Temperature 36.6 C (97.9 F) 07/03/2024 10:53 AM SUPERVISOR METAL [employer]URN[employer] FABRICATION Respiratory Rate 16 07/03/2024 10:53 AM SUPERVISOR METAL FURNITURE FABRICATION Oxygen Saturation 97% 07/03/2024 10:53 AM SUPERVISOR METAL FURNITURE FABRICATION Inhaled Oxygen Concentration - - Weight 68.5 kg (151 lb) 07/03/2024 10:53 AM SUPERVISOR METAL FURNITURE FABRICATION Height 157.5 cm (5' 2) 07/03/2024 10:53 AM SUPERVISOR METAL FURNITURE FABRICATION Body Mass Index 27.62 07/03/2024 10:53 AM SUPERVISOR METAL FURNITURE FABRICATION Plan of Treatment Health Maintenance Due Date Last Done Comments Breast Cancer Screening-Mammogram 1955 Colon Cancer Screening-Colonoscopy 1955 Depression Screening 1955 Hepatitis C Screening 1955 Osteoporosis Screening-Bone Density Scan 1953 DTaP/Tdap/Td Vaccine (1 - Tdap) 1964 Hepatitis B Screening 1971 Pneumococcal vaccine 65+ (1 of 2 - PCV) 1972 Zoster Vaccine (1 of 2) 2003 Well Visit 65+ 2018 Covid-19 Vaccine (3 - 2024-2 6 season) 2025 11/14/2020, 10/24/2020 Influenza Vaccine (#1) 2025 4, [...] on stairs Contact your local community or [facility] for information on exercise, fall prevention programs, or options for improving home safety. Medical Devices Implanted Type Area Fish Roe Technician Device Identifier Shelf Expiration Date Model / Serial / Lot [employer] Inc/C R Bard [id number] Bard [id number] Monofilament Soft Lightweight Low Profile Square - [id number] - [id number] Implanted:Qty: 1 on 05/11/2024 by Sabino Luke MD at [facility] Mesh N/A: Abdomen [employer]/C R Bard [id number] 11/06/2028 [id number] / [id number] / [id number] Insurance [facility] MEDICARE ADVANTAGE [facility] MEDICARE Address: [facility] [address] [place] [address] [facility] MEDIC[facility] Address: [address] [address] [place] [address] IDPA MEDICARE ADVANTAGE IDPA Advance Directives For more information, please contact: [phone] * Full Code (Latest Code Status on File) Date Activated Date Inactivated Comments 05/11/2024 8:24 PM 05/19/2024 3:53 PM Care Teams Land Planner Relationship Specialty Start Date End Date GamalloydkapilKathya DO [facility] [address] [address] PCP - General Family Medicine 05/12/24 Sabino Luke MD [address] [place] [address] Referring Physician General Surgery 12/06/23
[2025-04-28 10:29] LABS: Alanine Aminotransferase 22 U/L (6-35); Albumin Level 4.6 g/dL (3.5-5.1); Alkaline Phosphatase 91 U/L (38-126); Anion Gap 9 mmol/L (4-12); Aspartate Amino Transferase 30 U/L (14-36); Bilirubin,Total 0.5 mg/dL (0.2-1.3); Blood Urea Nitrogen 24 mg/dL (7-17); Calcium 9.6 mg/dL (8.4-10.2); Carbon Dioxide 31 mmol/L (22-30); Chloride 98 mmol/L (98-107); Estimated Glomerular Filt Rate > 60; Glucose 101 mg/dL (65-110); Potassium 4.0 mmol/L (3.4-5.0); Sodium 138 mmol/L (137-145); Total Protein 7.6 g/dL (6.3-8.2)
[2025-04-29 11:08] LABS: CA 19-9 30 U/mL (0-35)
== END 2025-04-28 09:34 | disposition home or self-care (01) ==
PROVIDERS: PCP Family Medicine; Visit Provider Internal Medicine Hematology & Oncology
DX: C24.1 Malignant neoplasm of ampulla of Vater (principal)
CPT/HCPCS: 36415; 80053; 85027; 86301

== ENCOUNTER 2025-05-11 10:45 | Outpatient (RCR) | payer MEDICARE, MEDICAID, SELFPAY ==
[2025-05-11 10:49] VITALS: BMI 26.4
[2025-05-11 10:50] VITALS: BMI 26.4
--- NOTE | 2025-05-11 13:56 | PCDIET ---
05/11/25: MNT consult completed.
== END 2025-07-26 13:53 | disposition home or self-care (01) ==
LOC: ANHDMC 10:45
PROVIDERS: PCP Family Medicine; Visit Provider Family Medicine
DX: E11.9 Type 2 diabetes mellitus without complications (principal); C25.9 Malignant neoplasm of pancreas, unspecified; Z71.3 Dietary counseling and surveillance
CPT/HCPCS: 97802

== ENCOUNTER 2025-05-31 13:57 | Outpatient (CLI) | payer MEDICARE, MEDICAID, SELFPAY ==
[2025-05-31 14:09] LABS: Hematocrit 43.2 % (37.0-47.0); Hemoglobin 13.9 g/dL (12.0-15.0); Immature Granulocyte Percent A 0.2 % (0-0.5); Lymphocytes Absolute Auto 2.10 K/mm3 (0.9-3.2); Mean Corpuscular HGB Conc 32.2 g/dl (32-36); Mean Corpuscular Hemoglobin 27.3 pg (26-34); Mean Corpuscular Volume 84.9 fl (80-100); Nucleated Red Blood Cells Absolute Auto 0.000 K/mm3 (0.0-0.012); Nucleated Red Blood Cells Perc 0.0 % (0.0-0.2); Platelet Count Result 255 k/mm3 (150-375); Red Blood Count 5.09 M/mm3 (4.2-5.4); White Blood Count 5.4 K/mm3 (4.5-10.0)
[2025-05-31 14:12] LABS: Blood Urea Nitrogen 18 mg/dL (8-26); Carbon Dioxide 31 mmol/L (22-30); Chloride 98 mmol/L (98-109); Estimated Glomerular Filt Rate 55; Glucose 92 mg/dL (70-105); Ionized Calcium (POC) 1.25 mmol/L (1.11-1.31); Potassium 4.1 mmol/L (3.5-4.9); Sodium 139 mmol/L (138-146)
--- OUTSIDE RECORDS SUMMARY | 2025-05-31 14:30 | XMS_ITS | Encounter Summary ---
Author Organization [facility] Address [address] [place] [address] Care Team Providers Care Certified Orthoptist Name Role Phone Kathya Orona Primary Care Provider +1- [phone] Reason for Referral * CT Scan (Routine) - Open Specialty Diagnoses / Procedures Referred By Divina berman Referred To Contact Diagnoses Ampullary carcinoma (CMS/HCC) Procedures CT CHEST ABDOMEN PELVIS W CONT Royal Newell MD [address] [place] [address] Phone: tel: fax: [place] [phone] Referral ID Status Reason Start Date Expiration Date V isits Requested Visits Authorized [id number] Open STL CTS 05/31/2025 07/01/2026 1 1 Reason for Visit * Reason Comments Follow Up Encounter Details Date Type Department Care Team (Late st Contact Info) Description 05/31/2025 2:30 PM CDT Office Visit [facility] Oncology and Hematology [facility] [address] [place] [address] Royal Newell MD [address] [place] [address] Ampullary carcinoma (CMS/HCC) (Primary Dx) [...] Sign Reading Time Taken Comments Blood Pressure 131/91 05/31/2025 2:37 PM CDT Pulse 86 05/31/2025 2:37 PM CDT Temperature 37.3 C (99.1 F) 05/31/2025 2:37 PM CDT Respiratory Rate - - Oxygen Saturation 96% 05/31/2025 2:37 PM CDT Inhaled Oxygen Concentration - - Weight 64.1 kg (141 lb 6.4 oz) 05/31/2025 2:37 P M CDT Height - - Body Mass Index 25.86 02/20/2023 10:31 AM CDT documented in this encounter Plan of Treatment Upcoming Encounters Date Type Department Care Team (Late st Contact Info) Description 07/14/2025 11:00 AM OCEAN BIOLOGIST Office Visit [facility] Oncology and Hematology [facility] [address] [place] [address] [address] [place] [address] [place] [address] [address] [place] [address] Scheduled Orders Name Type Priority Associated Diagnoses Orde r Schedule CBC WITH DIFFERENTIAL Lab Stat Ampullary carcinoma (CMS/HCC) Expected: 07/05/2025, Expires: 10/03/2025 COMPREHENSIVE METABOLIC PANEL Lab Stat Ampullary carcinoma (CMS/HCC) Expected: 07/05/2025, Expires: 10/03/2025 CANCER ANTIGEN 19-9 Lab Routine Ampullary carcinoma (CMS/HCC) Expected: 07/05/2025, Expires: 10/03/2025 CT CHEST ABDOMEN PELVIS W CONT Imaging Routine Ampullary carcinoma (CMS/HCC) Expected: 07/05/2025, Expires: 10/03/2025 documented as of this encounter Visit Diagnoses Diagnosis 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
[2025-05-31 14:41] LABS: Alanine Aminotransferase 21 U/L (6-35); Albumin Level 4.8 g/dL (3.5-5.1); Alkaline Phosphatase 105 U/L (38-126); Anion Gap 8 mmol/L (4-12); Aspartate Amino Transferase 34 U/L (14-36); Bilirubin,Total 0.4 mg/dL (0.2-1.3); Blood Urea Nitrogen 18 mg/dL (7-17); Calcium 10.0 mg/dL (8.4-10.2); Carbon Dioxide 32 mmol/L (22-30); Chloride 97 mmol/L (98-107); Estimated Glomerular Filt Rate > 60; Glucose 97 mg/dL (65-110); Potassium 4.1 mmol/L (3.4-5.0); Sodium 137 mmol/L (137-145); Total Protein 8.5 g/dL (6.3-8.2)
--- OUTSIDE RECORDS SUMMARY | 2025-05-31 16:06 | XMS_ITS | Clinical Summary ---
Author Organization [facility] Address [address] [place] [address] Phone Care Team Providers Care Fmd Teacher Name Role Phone GamalloydKathya dick Primary Care Provider +1- [phone] Allergies Active Allergy Reactions Criticality Noted Date [...] Anxiety. Active fluticasone propionate (FLONASE) 50 mcg/spray [place], Suspension nasal inhaler Administer 2 Sprays in [...] daily. liquid Active naloxone (NARCAN) 4 mg/spray [place], Non-Aerosol EMERGENCY USE ONLY: Administer 1 spray [...] times daily before meals. 120 Capsule 3 05/05/2025 12:32 PM CDT 5 Active trametinib (MEKINIST) 2 mg tablet Take 1 Tablet (2 mg) by mouth daily before breakfast. 30 Tablet 2 05/05/2025 12:32 PM CDT 5 Active Active Problems Problem Noted [...] Encounters Date Type Department Care Team Description 05/31/2025 2:30 PM CDT Office Visit [facility] Oncology and Hematology - [place] [address] [place] [address] Royal Newell MD Ampullary carcinoma (CMS/HCC) (Primary Dx) 05/31/2025 Specialty Pharmacy [facility] [address] [place] [phone] Carly Mosqueda PHARMACIST 05/05/2025 Telephone [facility] Oncology and Hematology [facility] [address] [place] [address] Royal Newell MD Flu Shot 05/03/2025 2:00 PM CDT Office Visit [facility] Oncology and Hematology - [place] [address] [place] [address] Royal Newell MD Ampullary carcinoma (CMS/HCC) (Primary Dx) 04/29/2025 Specialty Pharmacy [facility] [address] [place] [phone] Amarilis Lyman PHARMACIST 04/29/2025 Orders Only [facility] Oncology and Hematology [facility] [address] [place] [address] Royal Newell MD 04/27/2025 External Device Data STL ABSTRACTION Provider, Abstract 04/13/2025 External Device Data STL ABSTRACTION Provider, Abstract 04/05/2025 Specialty Pharmacy [facility] [address] [place] [phone] Ashley Granado, PHARMACIST Specialty Pharmacy Clinical Assessment 04/05/2025 Specialty Pharmacy [facility] [address] [place] [phone] Ashley Granado, PHARMACIST Specialty Pharmacy Refill Coordination 04/05/2025 Specialty Pharmacy [facility] [address] [place] [phone] Ashley Granado, PHARMACIST Specialty Pharmacy Prior Auth Coordination 03/31/2025 Specialty Pharmacy [facility] [address] [place] [phone] Carly Mosqueda PHARMACIST Specialty Pharmacy Clinical Intervention 03/31/2025 Specialty Pharmacy [facility] [address] [place] [phone] Carly Mosqueda, PHARMACIST Specialty Pharmacy Prior Auth Coordination 03/31/2025 Telephone [facility] Hematology [facility] [address] [place] [address] Royal Newell MD Medication Review (Patient called asking when she would get her new medication. Explained they are speciality meds and that the pharmacy is working on them and that they would come by mail.) 03/30/2025 4:30 PM CDT Telephone Check Up [facility] Oncology and Hematology [facility] [address] [place] [address] Royal Newell MD Ampullary carcinoma (CMS/HCC) (Primary Dx) 03/29/2025 Telephone [facility] Oncology [facility] Hematology [facility] [address] [place] [address] Royal Newell MD [facility] Testing 03/25/2025 Orders Only [facility] Oncology and Hematology [facility] [address] [place] [address] Royal Newell MD 03/11/2025 11:23 AM CDT - 03/11/2025 11:59 PM CDT Hospital Encounter [facility] [address] [facility] [place] [address] Royal Newell MD Discharge Disposition: Home or Self Care 03/09/2025 2:15 PM CDT Office Visit [facility] Oncology and Hematology [facility] [address] [place] [address] Royal Newell MD Ampullary carcinoma (CMS/HCC) (Primary Dx) 03/09/2025 Orders Only [facility] Oncology and Hematology [facility] [address] [place] [address] Royal Newell MD 03/04/2025 Orders Only [facility] Oncology and Hematology [facility] [address] [place] [address] Royal Newell MD from Last 3 Months [...] F) 05/31/2025 2:37 PM CDT Respiratory Rate 16 05/03/2025 1:55 PM CDT Oxygen Saturation 96% 05/31/2025 2:37 PM CDT Inhaled Oxygen Concentration - - Weight 64.1 kg (141 lb 6.4 oz) 05/31/2025 2:37 P M CDT Height 157.5 cm (5' 2) 02/20/2023 10:31 AM CDT Body Mass Index 25.86 02/20/2023 10:31 AM CDT Plan of Treatment Upcoming Encounters Date Type Department Care Team (Late st Contact Info) Description 07/14/2025 11:00 AM SENIOR CYBER SECURITY ANALYST Office Visit [facility] Oncology and Hematology - [place] [address] [facility] [address] [place] [address] Royal Newell MD [address] [facility] [address] [place] [address] Health Maintenance Due Date Last [...] Flex Sig/CT Colonography Q 5 years 1998 RSV VACCINE (60+ or ) (1 - Risk 50-74 years 1-dose series) 2003 ZOSTER VACCINE (1 of 2) 2003 OSTEOPOROSIS SCREENING 2018 [place]) Prev entative Visit/Annual Wellness Visit 08/12/2024 DIABETES HBA1C Q 6 MONTHS 10/14/2024 04/16/2024 INFLUENZA VACCINE (#1) 2025 , 05/28/2018, 06/25/2017 Medical Devices Implanted Type Area Inventory Worker Device Identifier Shelf Expiration Date Model / Serial / Lot Clip Ligating Horizon Lg Ti [id number] - Csc - [id number] Implanted:Qty : 1 on 12/29/2021 by Phil Mejia MD at [facility] Clip N/A: Abdomen TELEFLEX- WECK CLOSURE SYS 010000 / / Clip Ligating Horizon Ti Sm 24 [id number] Rp - [id number] Implanted:Qty : 2 on 12/29/2021 by Phil Mejia MD at [facility] Clip N/A: Abdomen TELEFLEX- WECK CLOSURE SYS [id number] RP / / Tube Feed Kangaroo 5fr 16in [id number] - [id number] Implanted:Qty : 1 on 12/29/2021 by Phil Mejia MD at [facility] Feeding Device N/A: Abdomen CARDINAL - PATIENT RECOVERY [id number] / / Description:INSERTED INTO PA NCREATIC DUCT Tube Feed Orrick [id number] - [id number] Implanted:Qty : 1 on 12/29/2021 by Phil Mejia MD at [facility] Feeding Device N/A: Abdomen CARDINAL - PATIENT RECOVERY 04/11/2026 [id number] / / [id number] Description:WRAPPER CHECKED BY Tracy 01/01/22 Hemostat Surg Snow 2x4in 208 - [id number] Implanted:Qty : 1 on 12/29/2021 by Phil Mejia MD at [facility] Hemostatic N/A: Abdomen J&J- [employer] 09/11/2023 2082 / / [id number] Sealant Fibrin Vistaseal 10ml Vst10 - [id number] Implanted:Qty : 1 on 12/29/2021 by Phil Mejia MD at [facility] Sealant N/A: Abdomen J&J- [employer] 02/07/2023 VST10 / [id number] / [id number] Description:BOX CHECKED BY Melisa Nowak 01/01/2022 Stent Pncrtc Geenen 7fr 9cm [id number] - [id number] Implanted:Qty : 1 on 05/25/2021 by Omar Gonzalez MD at [facility] Stent COOK- ENDOSCOPY - HALINA-COOK [id number] 09/12/2023 [id number] / / [id number] Stent Bili Wallflex Rx 10x40 [id number] - [id number] Implanted:Qty : 1 on 05/25/2021 by Omar Gonzalez MD at [facility] Stent BOST[employer] SCI- ENDOSCOPY [id number] 02/13/2023 [id number] / / [id number] Procedures Procedure Name Priority Date/Time Associated Diagnosis Comments CHG CA 19 9 Routine 04/28/2025 4:08 PM CDT COMPREHENSIVE METABOLIC PANEL Routine 04/28/2025 12:30 PM CDT PET BONE IMG W CT SKL BSE [...] CDT from Last 3 Months Results * CHG CA 19 9 (04/28/2025 4:08 PM CDT) Royal Newell MD [facility] - LABORATORY Final Result * COMPREHENSIVE METABOLIC PANEL (04/28/2025 12:30 PM CDT) Blood Royal Newell MD CHEMISTRY ORDERABLES Final Resu lt * PET BONE IMG W CT SKB [...] AM CDT [facility] [email or web address] [id number] 03/17/2025 9:31 AM CDT [facility] Comment:[facility]us [...] Trial Match 1 Clinical Trial NCT ID: [id number] Clinical Trial Title: A Study to Assess the Efficacy and Safety of BSYK1171 in Participants With Cancer Harboring BRAF Alterations Clinical Trial URL: https://clinicalt [place] [facility].gov/ct2/penny w/[email or web address] Clinical Phase: Phase 2 Clinical Trial Matches: BRAF p.V600E mutation Clinical Trial Distance and Location: [address] [place], [place] 03/17/2025 9:31 AM CDT [facility]: Clinical Trial Match 2 Clinical Trial NCT ID: [id number] Clinical Trial Title: A Phase 1/2 Study of Inlexisertib (DCC-3116) in Patients With KONSTANTIN/MAPK Pathway Mutant Solid Tumors Clinical Trial URL: [email or web address]://clinicalt [place] hospit[facility].gov/ct2/penny w/[email or web address] Clinical Phase: Phase 1/Phase 2 Clinical Trial Matches: BRAF p.V600E mutation Clinical Trial Distance and Location: [address] [place], [place] 03/17/2025 9:31 AM CDT [facility]: Clinical Trial Match 3 Clinical Trial NCT ID: [id number] Clinical Trial Title: FOG-001 in Locally Advanced or Metastatic Solid Tumors Clinical Trial URL: [email or web address]://clinicalt rials.gov/ct2/penny w/[email or web address] Clinical Phase: Phase 1/Phase 2 Clinical Trial Matches: APC p.E941* mutation, APC p.L6407kp mutation Clinical Trial Distance and Location: [address] [place], [place] 03/17/2025 9:31 AM CDT [facility] Tumor Mutational [place] 21.7 m/MB 03/17/2025 9:31 AM CDT [facility] Microsatellite Instability Note MSI-High not detected 03/17/2025 9:31 AM CDT [facility] Blood specimen (specimen) 03/12/2025 12:11 AM CDT Narrative This result has genomic variants that were not included in this document. Royal Newell MD MOLECULAR ORDERABLES Final Resu lt [facility] [address] [place] [address], [facility] [address] [place] [address] * PATHOLOGY (03/11/2025 11:24 AM CDT) CASE REPORT Surgical Pathology Report Case: [id number] Authorizing Provider: Royal Newell MD Collected: 03/11/2025 11:24 AM Ordering Location: [facility] Received: 03/11/2025 11:24 AM Services [facility] Pathologist: Sherry Jose MD Specimen: Other, specify 12:38 PM CDT [facility] FINAL DIAGNOSIS A request for [facility] was received on 03/11/[address] Royal Newell. This test was performed on tissue from case [id number]. The case report, slides, and blocks for this case were retrieved from archives. The pathologist reviewed the original pathology report, examined candidate slides, and selected the only block with tumor (A1). This selected material was forwarded to [facility] where the test was performed. The final report will be issued directly to the requesting physician. 12:38 PM CDT [facility] at 1238 CDT CLINICAL INFORMATION Z01.89 - Encounter for laboratory test [ICD-10-CM] 12:38 PM CDT [facility] COMMENT Special stain, immunohistochemical, and/or in situ hybridization results are interpreted with controls that demonstrate appropriate staining reactions. Note on use of immunohistochemistry reagents and in situ hybridization probes: These tests were developed and their performance characteristics determined by [facility], Department of Laboratory Medicine. It has [...] part or completely in the following laboratories: [facility], CLIA #[id number] [address] [place] [address] [facility], CLIA #[id number] [address] [place] [address] [facility], CLIA #[id number] [address] [place] [address] This report was created with the [employer] voice-activated dictation system. Inherent to this system is the possibility of syntax, grammar, punctuation and other errors that could impact the interpretation of the report. If there are interpretative questions about aspects of this report, please contact the performing pathologist. 12:38 PM CDT [facility] Tissue (Other, specify) 03/11/2025 11:24 AM CDT 03/11/2025 11:24 AM CDT Royal Newell MD PATHOLOGY/CYTOLOGY ORDERABLES F inal Result [id number] [address] [place], [place] [address] [address] * [facility] NORMAL BLOOD (03/09/2025 2:35 PM CDT) [facility] 03/09/2025 11:00 PM CDT [facility] Comment:See NGS Report for R esults. Blood specimen (specimen) 03/09/2025 2:35 PM CDT 03/09/2025 2:36 PM CDT us Royal Newell MD MOLECULAR ORDERABLES Final Resu lt [facility] [address] [place] [address], [place] [phone] [facility] [address] [place] [address] * CHG IMMUNOGLOBULIN E (03/02/2025 3:26 PM [...] ALPHA-FETOPROTEIN SERUM (03/02/2025 12:54 PM CDT) us Ryoal Newell MD [facility] - LABORATORY Final Result [...] Group ID:[id number] Type:RX Medicare Part D Address: [place], [place] RX GREY PLANS (INTERNAL) [facility] Internal Plans Advance Directives For more information, please contact: [phone] * Full Code (Latest Code Status on File) Date Activated Date Inactivated Comments 12/29/2021 8:18 PM 01/08/2022 8:26 PM * Full Code Date Activated Date Inactivated Comments 12/29/2021 5:49 AM 12/29/2021 8:17 PM * Full Code Date Activated Date Inactivated Comments 05/25/2021 12:46 PM 06/01/2021 9:14 PM * Full Code Date Activated Date Inactivated Comments 05/24/2021 5:14 AM 05/25/2021 12:46 PM Care Teams Fmd Teacher Relationship Specialty Start Date End Date Kathya Orona DO [address] [facility] [address] [place] [phone] PCP - General Family Practice 05/07/24
--- OUTSIDE RECORDS SUMMARY | 2025-05-31 16:06 | XMS_ITS ---
Author Organization [facility] Address [address] [place] [phone] Phone Care Team Providers Care General Surgery Physician Assistant Name Role Phone Kathya Orona Primary Care Provider +1- [phone] Active Problems Problem Noted Date Diagnosed Date [...]
--- OUTSIDE RECORDS SUMMARY | 2025-05-31 16:06 | XMS_ITS | Encounter Summary ---
Author Organization [facility] Address [address] [place] [address] Care Team Providers Care Spindle Carver Name Role Phone Kathya Orona DO Primary Care Provider [phone]- [phone] Encounter Details Date Type Department Care Team (Late st Contact Info) Description 05/31/2025 Specialty Pharmacy [facility] [address] [place] [phone] Carly Mosqueda, PHARMACIST Social History Tobacco Use Types Packs/Day Years [...] as of this encounter Progress Notes * Carly Mosqueda PHARMACIST - 05/31/2025 11:55 AM CDT Ship date: Supply: 30 DAYS Delivery Instructions: T&T--OKAY TO LEAVE--SEND TO ARRIVE ON MONDAY 06/04--2 MEDS Ok to leave? 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
--- OUTSIDE RECORDS SUMMARY | 2025-05-31 16:06 | XMS_ITS ---
Author Organization [facility] Address [address] [place] [address] Care Team Providers Care Cane Flume Feeding Machine Operator Name Role Phone Sabino Luke MD Unavailable [phone] Kathya Orona DO Primary Care Provider +[phone]- [phone] Active Problems Problem Noted Date Diagnosed Date [...]
--- OUTSIDE RECORDS SUMMARY | 2025-05-31 16:06 | XMS_ITS ---
Author Organization [facility] Address [address] [place] [address] Phone Care Team Providers Care Maintenance Repairman Name Role Phone Gamalloydkapil Kathya Kirsten DO Primary Care Provider +1- [phone] Pancreatic Adenocarcinoma Status:Enrolled (Active) Start date:04/16/2025 Enrollment date:04/16/2025 Enrollment reason:Conversion Current support & services provided:Clinical Management, Refill Management, Benefits and PA Management, Financial Assistance Linked medications:dabrafenib mesylate (Active), trametinib dimethyl sulfoxide (Active) Overview Conversion Continued Care and Services Coordination
--- OUTSIDE RECORDS SUMMARY | 2025-05-31 16:06 | XMS_ITS | Clinical Summary ---
Author Organization [facility] Address [address] [place] [address] Care Team Providers Care Casualty Claims Supervisor Name Role Phone Sabino Luke MD Unavailable [phone] Kathya Orona DO Primary Care Provider [phone]- [phone] Allergies Active Allergy Reactions Criticality Noted Date [...] 1 tablet (10 mg total) by mouth production scheduler before breakfast 30 tablet 4 Active fluticasone [...] 1 tablet (10 mg total) by mouth production scheduler before breakfast 30 tablet 4 Active cyclobenzaprine (FLEXERIL) 10 mg tabletIndicatio ns:Muscle Spasm Take 1 tablet (10 mg total) by mouth 2 (two) times a day as needed for muscle spasms 30 tablet 4 Active hydroCHLOROthia zide (HYDRODIURIL) 25 mg tabletIndicatio ns:hypertension Take 1 tablet (25 mg total) by mouth production scheduler before breakfast 30 tablet 4 Active sertraline [...] on file Legal Sex Female 8:15 AM COMBINING MACHINE OPERATOR Gender Identity Not on file Sexual Orientation Not on file Occupation Industry Job Start Date Job End Date Disability Not on file Not on file Not on file Obstetrics History Last Filed Vital Signs Vital Sign Reading Time Taken Comments Blood Pressure 130/86 07/03/2024 10:53 AM COMBINING MACHINE OPERATOR Pulse 85 07/03/2024 10:53 AM COMBINING MACHINE OPERATOR Temperature 36.6 C (97.9 F) 07/03/2024 10:53 AM COMBINING MACHINE OPERATOR Respiratory Rate 16 07/03/2024 10:53 AM COMBINING MACHINE OPERATOR Oxygen Saturation 97% 07/03/2024 10:53 AM COMBINING MACHINE OPERATOR Inhaled Oxygen Concentration - - Weight 68.5 kg (151 lb) 07/03/2024 10:53 AM COMBINING MACHINE OPERATOR Height 157.5 cm (5' 2) 07/03/2024 10:53 AM COMBINING MACHINE OPERATOR Body Mass Index 27.62 07/03/2024 10:53 AM COMBINING MACHINE OPERATOR Plan of Treatment Health Maintenance [...] on stairs Contact your local community or [facility] for information on exercise, fall prevention programs, or options for improving home safety. Medical Devices Implanted Type Area Arcade Game Technician Device Identifier Shelf Expiration Date Model / Serial / Lot [employer]/C R Bard [id number] Bard [id number] Monofilament Soft Lightweight Low Profile Square - [id number] - [id number] Implanted:Qty: 1 on 05/11/2024 by Sabino Luke MD at [facility] Mesh N/A: Abdomen [employer]/C R Bard [id number] 11/06/2028 [id number] / [id number] / [id number] Insurance [facility] MEDICARE ADVANTAGE [facility] Address: [facility] [address] [place] [address] [facility] Address: [address] [address] [place] [address] IDPA MEDICARE ADVANTAGE IDPA Advance Directives For more information, please contact: [phone] * Full Code (Latest Code Status on File) Date Activated Date Inactivated Comments 05/11/2024 8:24 PM 05/19/2024 3:53 PM Care Teams Casualty Claims Supervisor Relationship Specialty Start Date End Date Gamalloydkapil Kathya CurtisDO [address] [place] [address] PCP - General Family Medicine 05/12/24 Sabino Luke MD [address] [place] [address] Referring Physician General Surgery 12/06/23
== END 2025-05-31 13:58 | disposition home or self-care (01) ==
PROVIDERS: PCP Family Medicine; Visit Provider Internal Medicine Hematology & Oncology
DX: C24.1 Malignant neoplasm of ampulla of Vater (principal)
CPT/HCPCS: 36415; 80047; 80053; 85025

== ENCOUNTER 2025-06-14 09:18 | Outpatient (CLI) | payer MEDICARE, MEDICAID, SELFPAY ==
--- OUTSIDE RECORDS SUMMARY | 2025-06-14 09:54 | XMS_ITS ---
Author Organization [facility] Address [address] [place] [phone] Phone Care Team Providers Care Junior Administrative Assistant Name Role Phone Kathya Orona Primary Care Provider +1- [phone] Active Problems Problem Noted Date Diagnosed Date [...]
--- OUTSIDE RECORDS SUMMARY | 2025-06-14 09:54 | XMS_ITS | Clinical Summary ---
Author Organization [facility] Address [address] [place] [address] Phone Care Team Providers Care Isotope Technician Name Role Phone GamalloydKathya dick Primary Care Provider [phone] Allergies Active Allergy Reactions Criticality Noted Date [...] Anxiety. Active fluticasone propionate (FLONASE) 50 mcg/spray Empire, Suspension nasal inhaler Administer 2 Sprays in [...] daily. liquid Active naloxone (NARCAN) 4 mg/spray Empire, Non-Aerosol EMERGENCY USE ONLY: Administer 1 spray [...] times daily before meals. 120 Capsule 3 06/03/2025 11:23 AM CDT 5 Active trametinib (MEKINIST) 2 mg tablet Take 1 Tablet (2 mg) by mouth daily before breakfast. 30 Tablet 2 06/03/2025 11:23 AM CDT 5 Active Active Problems Problem [...] Encounters Date Type Department Care Team Description 06/03/2025 Specialty Pharmacy [facility] [address] [place] [phone] Anastacia Shaver, PHARMACIST 06/01/2025 Orders Only [facility] - [place] [place] [address] Royal Newell MD 05/31/2025 2:30 PM CDT Office Visit [facility] - [address] [place] [address] Royal Newell MD Ampullary carcinoma (CMS/HCC) (Primary Dx) 05/31/2025 Specialty Pharmacy [facility] [address] [place] [address] Carly Mosqueda, PHARMACIST 05/05/2025 Telephone [facility] - [address] [place] [address] Royal Newell MD Flu Shot 05/03/2025 2:00 PM CDT Office Visit [facility] - [address] [place] [address] Royal Newell MD Ampullary carcinoma (CMS/HCC) (Primary Dx) 04/29/2025 Specialty Pharmacy [facility] [address] [place] [address] [place] [address] Amarilis Lyman, PHARMACIST 04/29/2025 Orders Only [facility] [address] [place] [address] Royal Newell MD 04/27/2025 External Device Data STL ABSTRACTION Provider, Abstract 04/13/2025 External Device Data STL ABSTRACTION Provider, Abstract 04/05/2025 Specialty Pharmacy [facility] [address] [place] [address] [place] [address] Ashley Granado, PHARMACIST Specialty Pharmacy Clinical Assessment 04/05/2025 Specialty Pharmacy [facility] [address] [place] [address] [place] [address] Ashley Granado, PHARMACIST Specialty Pharmacy Refill Coordination 04/05/2025 Specialty Pharmacy [facility] [address] [place] [address] [place] [address] Ashley Granado, PHARMACIST Specialty Pharmacy Prior Auth Coordination 03/31/2025 Specialty Pharmacy [facility] [address] [place] [phone] Carly Mosqueda PHARMACIST Specialty Pharmacy Clinical Intervention 03/31/2025 Specialty Pharmacy [facility] [address] [place] [address] [place] [address] Carly Mosqueda, PHARMACIST Specialty Pharmacy Prior Auth Coordination 03/31/2025 Telephone [facility] [address] [place] [address] Royal Newell MD Medication Review (Patient called asking when she would get her new medication. Explained they are speciality meds and that the pharmacy is working on them and that they would come by mail.) 03/30/2025 4:30 PM CDT Telephone Check Up [facility] [address] [place] [address] Royal Newell MD Ampullary carcinoma (CMS/HCC) (Primary Dx) 03/29/2025 Telephone [facility] H[facility]ology [facility] [address] [place] [address] Royal Newell MD Temp[employer] Testing 03/25/2025 Orders Only [facility] and [facility] [address] [place] [address] Royal Newell MD from Last 3 Months [...] 7 Alive Daughter Alive Father Mother Harleen Rizoz Sister 1 Alive Sister 2 Alive Sister [...] st Contact Info) Description 07/14/2025 11:00 AM 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 [address] [place] [address] Royal Newell MD [address] [facility] [address] [place] [address] Health Maintenance Due Date Last [...] (1 of 2) 2003 OSTEOPOROSIS SCREENING 2018 DIABETES HBA1C Q 6 MONTHS 10/14/2024 04/16/2024 INFLUENZA VACCINE (#1) 2025 , 05/28/2018, 06/25/2017 Medical Devices Implanted Type Area Sample Wrapper Device Identifier Shelf Expiration Date Model / Serial / Lot Clip Ligating Horizon Lg Ti [id number] - [facility] [place] - [id number] Implanted:Qty : 1 on 12/29/2021 by Phil Mejia MD at [facility] N/A: Abdomen TELEFLEX- WECK CLOSURE SYS [id number] / / Clip Ligating Horizon Ti 24 [id number] - [id number] Implanted:Qty : 2 on 12/29/2021 by Phil Mejia MD at [facility] Clip N/A: Abdomen TELEFLEX- WECK CLOSURE SYS [id number] RP / / Tube Feed Kangaroo 5fr 16in [id number] - [id number] Implanted:Qty : 1 on 12/29/2021 by Phil Mejia MD at [facility] Feeding Device N/A: Abdomen CARDINAL - PATIENT RECOVERY [id number] / / Description:INSERTED INTO PA NCREATIC DUCT Tube Feed Kingston [id number] - [id number] Implanted:Qty : 1 on 12/29/2021 by Phil Mejia MD at [facility] Feeding Device N/A: Abdomen CARDINAL - PATIENT RECOVERY 04/11/2026 [id number] / / [id number] Description:WRAPPER CHECKED BY Tracy 01/01/22 Hemostat Surg Snow 2x4in 2081 - [id number] Implanted:Qty : 1 on 12/29/2021 by Phil Mejia MD at [facility] Hemostatic N/A: Abdomen J&J- [employer] 09/11/2023 2082 / / [id number] Sealant Fibrin Vistaseal 10ml Vst10 - [id number] Implanted:Qty : 1 on 12/29/2021 by Phil Mejia MD at [facility] Sealant N/A: Abdomen J&J- [employer] 02/07/2023 VST10 / [id number] / [id number] Description:BOX CHECKED BY Melisa Nowak 01/01/2022 Stent Pncrtc Geenen 7fr 9cm [id number] - [id number] Implanted:Qty : 1 on 05/25/2021 by Omar Gonzalez MD at [facility] Stent COOK- ENDOSCOPY - HALINA-COOK [id number] 09/12/2023 [id number] / / [id number] Stent Bili Wallflex Rx 10x40 [id number] - [id number] Implanted:Qty : 1 on 05/25/2021 by Omar Gonzalez MD at [facility] Stent BOSTON SCI- ENDOSCOPY [id number] 02/13/2023 [id number] / / [id number] Procedures Procedure Name Priority Date/Time Associated Diagnosis Comments COMPREHENSIVE METABOLIC PANEL Routine 05/31/2025 4:18 PM CDT CBC WITH AUTODIFFERENTIAL Routine 05/31/2025 2:27 PM CDT CHG CA 19 9 Routine 04/28/2025 4:08 PM CDT COMPREHENSIVE METABOLIC PANEL Routine 04/28/2025 12:30 PM CDT PET BONE IMG W CT SKL BSE MID THG Routine 03/23/2025 12:17 PM CDT [facility] Routine 03/17/2025 9:31 AM CDT Ampullary carcinoma (CMS/HCC) from Last 3 Months Results * COMPREHENSIVE METABOLIC PANEL (05/31/2025 4:18 PM CDT) Only the most recent of2 resultswithin the time period is included. Blood us Royal Newell MD CHEMISTRY ORDERABLES Final Resu lt * CBC WITH AUTODIFFERENTIAL (05/31/2025 2:27 PM CDT) Blood us Royal Newell MD HEMATOLOGY ORDERABLES Final Res ult * CHG CA 19 9 (04/28/2025 4:08 PM CDT) us Royal Newell MD CHG - LABORATORY Final Result * PET BONE IMG W CT SKB MD (03/23/2025 12:17 PM CDT) Anatomical Region Laterality Modality Positron Emissio n Tomography (PET) us Royal Newell MD PE ORDERABLES Final Result [...] AM CDT [facility] [email or web address] 03/17/2025 9:31 AM CDT [facility] Comment:[facility] [...] Trial Match 1 Clinical Trial NCT ID: [id number] Clinical Trial Title: A Study to Assess the Efficacy and Safety of [id number] in Participants With Cancer Harboring BRAF Alterations Clinical Trial URL: [email or web address] Clinical Phase: Phase 2 Clinical Trial Matches: BRAF p.V600E mutation Clinical Trial Distance and Location: [address], [place], [place] 03/17/2025 9:31 AM CDT [facility]us: Clinical Trial Match 2 Clinical Trial NCT ID: [id number] Clinical Trial Title: A Phase 1/2 Study of Inlexisertib (DCC-3116) in Patients With KONSTANTIN/MAPK Pathway Mutant Solid Tumors Clinical Trial URL: [email or web address] Clinical Phase: Phase 1/Phase 2 Clinical Trial Matches: BRAF p.V600E mutation Clinical Trial Distance and Location: [address] [place], [place] 03/17/2025 9:31 AM CDT [facility]: Clinical Trial Match 3 Clinical Trial NCT ID: [id number] Clinical Trial Title: FOG-001 in Locally Advanced or Metastatic Solid Tumors Clinical Trial URL: [email or web address] Clinical Phase: Phase 1/Phase 2 Clinical Trial Matches: APC p.E941* mutation, APC p.W1578ku mutation Clinical Trial Distance and Location: [address] [place], [place] 03/17/2025 9:31 AM CDT [facility] Tumor Mutational Exchange 21.7 m/MB 03/17/2025 9:31 AM CDT [facility] Microsatellite Instability Note MSI-High not detected 03/17/2025 9:31 AM CDT [facility] Blood specimen (specimen) 03/12/2025 12:11 AM CDT Narrative This result has genomic variants that were not included in this document. Royal Newell MD MOLECULAR ORDERABLES Final Resu lt [facility] [address] [facility], [address] [place] [address], [facility] [address] [facility], [facility] [address] [place] [address] from Last 3 Months Insurance [facility] [id number] RX [employer] RX Member Subscriber Plan / Payer (Ef fective 2017-Present) Name:Krissy Oneal Relation to Subscriber:Self Name:Krissy Oneal Payer ID:Not on file Group ID:[id number] Type:RX Medicare Part D Address: [place] [place] RX [employer] PLANS (INTERNAL) [facility] [id number] Advance Directives For more information, please contact: [phone] * Full Code (Latest Code Status on File) Date Activated Date Inactivated Comments 12/29/2021 8:18 PM 01/08/2022 8:26 PM * Full Code Date Activated Date Inactivated Comments 12/29/2021 5:49 AM 12/29/2021 8:17 PM * Full Code Date Activated Date Inactivated Comments 05/25/2021 12:46 PM 06/01/2021 9:14 PM * Full Code Date Activated Date Inactivated Comments 05/24/2021 5:14 AM 05/25/2021 12:46 PM Care Teams Isotope Technician Relationship Specialty Start Date End Date Kathya Orona DO [address] [facility] [address] [place] [address] PCP - General Family Practice 05/07/24
--- OUTSIDE RECORDS SUMMARY | 2025-06-14 09:54 | XMS_ITS ---
Author Organization [facility] Address [address] [place] [address] Care Team Providers Care Assistant Track Coach Name Role Phone Sabino Luke MD Unavailable [phone] Kathya Orona DO Primary Care Provider [phone] Active Problems Problem Noted Date Diagnosed Date [...]
--- OUTSIDE RECORDS SUMMARY | 2025-06-14 09:55 | XMS_ITS | Clinical Summary ---
Author Organization [facility] Address [address] [place] [address] Care Team Providers Care Java Grails Developer Name Role Phone Sabino Luke MD Unavailable [phone] Kathya Orona DO Primary Care Provider [phone] Allergies Active Allergy Reactions Criticality Noted Date [...] 1 tablet (10 mg total) by mouth customer equipment engineer before breakfast 30 tablet 4 Active [...] 1 tablet (10 mg total) by mouth customer equipment engineer before breakfast 30 tablet 4 Active cyclobenzaprine (FLEXERIL) 10 mg tabletIndicatio ns:Muscle Spasm Take 1 tablet (10 mg total) by mouth 2 (two) times a day as needed for muscle spasms 30 tablet 4 Active hydroCHLOROthia zide (HYDRODIURIL) 25 mg tabletIndicatio ns:hypertension Take 1 tablet (25 mg total) by mouth customer equipment engineer before breakfast 30 tablet 4 Active [...] on file Legal Sex Female 8:15 AM SEED MILL SUPERINTENDENT Gender Identity Not on file Sexual Orientation Not on file Occupation Industry Job Start Date Job End Date Disability Not on file Not on file Not on file Last Filed Vital Signs Vital Sign Reading Time Taken Comments Blood Pressure 130/86 07/03/2024 10:53 AM SEED MILL SUPERINTENDENT Pulse 85 07/03/2024 10:53 AM SEED MILL SUPERINTENDENT Temperature 36.6 C (97.9 F) 07/03/2024 10:53 AM SEED MILL SUPERINTENDENT Respiratory Rate 16 07/03/2024 10:53 AM SEED MILL SUPERINTENDENT Oxygen Saturation 97% 07/03/2024 10:53 AM SEED MILL SUPERINTENDENT Inhaled Oxygen Concentration - - Weight 68.5 kg (151 lb) 07/03/2024 10:53 AM SEED MILL SUPERINTENDENT Height 157.5 cm (5' 2) 07/03/2024 10:53 AM SEED MILL SUPERINTENDENT Body Mass Index 27.62 07/03/2024 10:53 AM SEED MILL SUPERINTENDENT Plan of Treatment Health Maintenance Due Date [...] on stairs Contact your local community or [facility] for information on exercise, fall prevention programs, or options for improving home safety. Medical Devices Implanted Type Area Commercial Journeyman Electrician Device Identifier Shelf Expiration Date Model / Serial / Lot Davol Inc/C R Bard [id number] Bard [id number] Monofilament Soft Lightweight Low Profile Square - [id number] - [id number] Implanted:Qty: 1 on 05/11/2024 by Sabino Luke MD at [facility] N/A: Abdomen [employer]/C R Bard [id number] 11/06/2028 [id number] / [id number] / [id number] Insurance [facility] MEDICARE ADVANTAGE [facility] Address: [facility] [address] [place] [address] [place] [id number] MEDIC[facility] ADVANTAGE IDPA Advance Directives For more information, please contact: [phone] * Full Code (Latest Code Status on File) Date Activated Date Inactivated Comments 05/11/2024 8:24 PM 05/19/2024 3:53 PM Care Teams Java Grails Developer Relationship Specialty Start Date End Date Gamalloydkapil Kathya CurtisDO [address] [place] [address] PCP - General Family Medicine 05/12/24 Sabino Luke MD [address] [place] [address] Referring Physician General Surgery 12/06/23
--- OUTSIDE RECORDS SUMMARY | 2025-06-14 09:55 | XMS_ITS ---
Author Organization [facility] Address [address] [place] [address] Phone Care Team Providers Care Head Paper Tester Name Role Phone Gamalloydkapil Kathya Curtis DO Primary Care Provider [phone] Pancreatic Adenocarcinoma Status:Enrolled (Active) Start date:04/16/2025 Enrollment date:04/16/2025 Enrollment reason:Conversion Current support & services provided:Clinical Management, Refill Management, Benefits and PA Management, Financial Assistance Linked medications:dabrafenib mesylate (Active), trametinib dimethyl sulfoxide (Active) Overview Conversion Continued Care and Services Coordination
[2025-06-14 10:15] LABS: Total Protein Urine Random 15 mg/dL; Ur Ttl Prot Creatinine Ratio 0.06 mg/mg (0-0.20)
[2025-06-14 10:48] LABS: Albumin Level 4.6 g/dL (3.5-5.1); Anion Gap 8 mmol/L (4-12); Blood Urea Nitrogen 18 mg/dL (7-17); Calcium 9.6 mg/dL (8.4-10.2); Carbon Dioxide 32 mmol/L (22-30); Chloride 100 mmol/L (98-107); Estimated Glomerular Filt Rate > 60; Glucose 109 mg/dL (65-110); Potassium 3.7 mmol/L (3.4-5.0); Sodium 140 mmol/L (137-145)
== END 2025-06-14 09:19 | disposition home or self-care (01) ==
PROVIDERS: PCP Family Medicine; Visit Provider Internal Medicine Nephrology
DX: R80.9 Proteinuria, unspecified (principal); E11.29 Type 2 diabetes mellitus with other diabetic kidney complication; I10 Essential (primary) hypertension
CPT/HCPCS: 36415; 80069; 82570; 84156

== ENCOUNTER 2025-06-25 09:58 | Emergency (ER) | payer MEDICARE, MEDICAID, SELFPAY ==
[2025-06-25 10:14] VITALS: BP 152/87; PULSE 72; RESP 16; TEMP 36.4; O2SAT 98
--- NOTE | 2025-06-25 11:40 | ED.URI ---
HPI - URI/Sore Throat General Chief Complaint: Upper Respiratory Infection Stated Complaint: trouble sleeping/congestion/headache Time Seen by Provider: 06/25/25 10:30 Source: patient and RN notes reviewed Mode of arrival: ambulatory Limitations: no limitations History of Present Illness HPI Narrative: 69-year-old female presents Express Care complaining of multiple medical complaints. Patient reports she has been doing with congestion, nasal drainage, cough for over a month this is in the resolving. Patient reports intermittent headaches. Patient also reports she has had an issue with sleeping and reports insomnia now for quite some time she says. Patient tried melatonin few years ago and said did not work and she stop using it. Try to see her PCP today there are will unable to see her, they told to come to the urgent care. Patient has any fevers, body aches, chills, nausea vomiting, diarrhea, chest pain, difficulty breathing, sweats, or any other symptoms. Patient has a history metastatic cancer, she is not on chemo but she does take medications for it. Related Data Home Medications ?Medication ?Instructions ?Recorded ?Confirmed ?Last Taken ?Type potassium chloride 20 mEq 20 meq PO DAILY 10/17/21 02/04/25 04/08/22 History tablet,extended release mecobalamin (vitamin B12) 500 mcg 500 mcg PO DAILY 01/21/24 02/04/25 Unknown History chewable tablet cholecalciferol (vitamin D3) 50 50 mcg PO DAILY 12/07/24 02/04/25 Unknown History mcg (2,000 unit) capsule dabrafenib 75 mg capsule (Tafinlar) 75 mg PO Q12H 06/16/25 Unknown History trametinib 2 mg tablet (Mekinist) 2 mg PO DAILY 06/16/25 Unknown History Allergies Allergy/AdvReac Type Severity Reaction Status Date / Time Macrolide Antibiotics Allergy Intermediate ITCHING Verified 06/16/25 11:06 amoxicillin Allergy Unknown Itching Verified 06/16/25 11:06 erythromycin base Allergy Unknown Itching Verified 06/16/25 11:06 naproxen Allergy Unknown Rash Verified 06/16/25 11:06 Penicillins Allergy Unknown Itching Verified 06/16/25 11:06 Sulfa (Sulfonamide Allergy Unknown Dizziness Verified 06/16/25 11:06 Antibiotics) Iodinated Contrast Media Allergy Hives Verified 06/16/25 11:06 iohexol (From contrast - CT, Allergy Itching Verified 06/16/25 11:06 X-RAY) gadobenic acid (From AdvReac Itching Verified 06/16/25 11:06 contrast - MRI) Contrast Media Allergy Intermediate ITCHING Uncoded 06/16/25 11:06 Review of Systems Review of Systems: CONSTITUTIONAL: Denies fever, chills, or sweats. EYES: Denies visual changes, redness, or discharge. ENT: Denies rhinorrhea, congestion, sore throat, or otalgia. Positive for congestion. CARDIOVASCULAR: Denies chest pain, palpitations, dizziness, lightheadedness, or edema. RESPIRATORY: Denies wheezing or dyspnea. Positive for cough GASTROINTESTINAL: Denies abdominal pain, nausea, vomiting, or diarrhea. GENITOURINARY: Denies dysuria or hematuria. SKIN: Denies rash or itching. MUSCULOSKELETAL: Denies back pain, joint pain, or myalgia. NEUROLOGIC: Denies focal weakness, slurred speech, loss of consciousness, numbness, or weakness. Positive for insomnia and headaches. PSYCHIATRIC: Denies anxiety or depression. All other systems reviewed are negative, except as documented in HPI. [facility] Past Medical History Medical History Difficulty swallowing Pancreatic cancer Dilated intrahepatic bile duct Helicobacter pylori (H. pylori) Diarrhea Nausea Upper abdominal pain Ana-ampullary neoplasm Overweight (BMI 25.0-29.9) Abdominal bloating Hypertension High cholesterol Coughing Wears glasses Chronic back pain DDD (degenerative disc disease) Arthritis Post-menopausal Fibroids Hiatal hernia GERD (gastroesophageal reflux disease) Sleep apnea Bronchitis On home O2 Hyperlipidemia Seasonal allergies Depression Anxiety Hypoxia Asthma Essential hypertension BETTY (obstructive sleep apnea) No longer uses CPAP Pulmonary hypertension Surgical History Surgical History History of sinus surgery History of thyroidectomy Goiter removed History of spinal surgery Cervical fusion History of dilatation and curettage History of tubal ligation History of hysterectomy History of cardiac catheterization Family History Family History Father Family history of malignant neoplasm Leukemia Mother Liver cirrhosis Sibling Asthma Malignant neoplasm of prostate Diabetes mellitus Hypertension Other Arthritis Social History Social History (Reviewed 06/25/25 @ 11:42 by DWIGHT Motley Social History: The patient lives at home with her who is a durable power deputy prosecuting attorney for healthcare. The patient is a full code. The patient has 2 children. 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 Patient is an ex-smoker she quit in 2003. She does not use any alcohol marijuana or illicit drugs. Caffeine-mushroom coffee Smoking packs per day: 0.5 Smoking cigarettes per day: 10.0 Years smoked: 30 Smoking pack-years: 15.00 Smoking status: Former smoker Tobacco type: cigarettes Second hand tobacco smoke exposure: No Smoking end date: 05/21/03 Additional smoking assessment comments: STATES 1PK TO 1 1/2PK/WEEK/30YRS, QUIT 2003 Alcohol intake: never Substance use: never Substance use type: does not use Do You Feel Safe in your Home?: Yes Lack of Transportation: YES Lack of Food: Never True Current Housing: I Have Housing Concerned About Future Housing: No Difficulty Paying Gas/Electric Bills: No Difficulty Paying for Meds: No Currently Unemployed: No Education: Trade/Vocational Certificate Difficulty w/ Childcare or Family Care: No Living arrangements: with family Occupation/Education: retired Gender identity (if verbalized by the patient): Female Spiritual care concerns: No Comments At the time of my signature, I reviewed and agree with the nursing past medical, surgical, social, and family history. There is no relevant family history pertinent to the patient complaint. Exam Narrative: GENERAL: This is a well-nourished, well-developed adult, in no apparent distress. They are non ill-appearing, nontoxic appearing. HEAD: normocephalic, atraumatic. EYES: Sclera clear/white. Conjunctiva normal. Vision is grossly intact. Extraocular movements intact EARS: External ears normal, auditory canals clear and without drainage, TMs normal without perforation. Hearing grossly intact. NOSE: External nose normal with no obvious nasal discharge, nasal turbinates erythematous with exudate, no rhinorrhea. THROAT: Mucous membranes moist, posterior pharynx clear, without erythema or swelling. Uvula midline. Cobblestone appearing. NECK: Neck supple, non-tender without lymphadenopathy, masses or thyromegaly. CARDIOVASCULAR: Regular rate and rhythm without murmurs, gallops, or rubs. RESPIRATORY: Clear to auscultation. Breath sounds equal bilaterally. No wheezes, rales, or rhonchi. SKIN: warm, Dry, intact with no suspicious lesions or rash, good texture and turgor. NEURO: awake, alert, and oriented to person, place and time. There were no obvious focal neurologic abnormalities. EXTREMITIES: No joint tenderness, effusion, or edema noted. BACK: Nontender without deformity. No CVA tenderness. Course Course Emergency Course: Portions of this record may have been created with voice recognition software Level of Care: Express Care Visit Vital Signs Vital signs: Vital Signs Temperature 97.5 F L 06/25/25 10:14 Pulse Rate 72 06/25/25 10:14 Respiratory Rate 16 06/25/25 10:14 Blood Pressure 152/87 H 06/25/25 10:14 Pulse Oximetry 98 06/25/25 10:14 Oxygen Delivery Room Air 06/25/25 10:14 Temperature 97.5 F L 06/25/25 10:14 Pulse Rate 72 06/25/25 10:14 Respiratory Rate 16 06/25/25 10:14 Blood Pressure 152/87 H 06/25/25 10:14 Pulse Oximetry 98 06/25/25 10:14 Oxygen Delivery Room Air 06/25/25 10:14 Reviewed MDM - URI/Sore Throat MDM Narrative Medical decision making narrative: Given patient's length of symptoms she may have a sinusitis, will treat with doxycycline given her drug allergies. Patient likely has insomnia or symptoms underlying sleep disorder, informed her there urgent care cannot evaluate her are prescribe bringing for sleep, informed her to have a close follow-up with her PCP about her sleeping problems as she may need a sleep study. Patient unable to take unisom or Benadryl as it may interact with her potassium. Discussed sleep hygiene, encouraged her to try the melatonin again. Discussed physical exam findings. Advised supportive measures and signs/symptoms to go to the ER. Pt is appropriate for outpt treatment and f/u. Differential Diagnosis Differential diagnosis: Likely upper respiratory infection, sinusitis, viral infection and other (Insomnia) Critical Care Time Critical Care Time Critical Care Time: No Discharge Plan Discharge Clinical Impression: Insomnia Qualifiers: Insomnia type: unspecified Qualified Code(s): G47.00 - Insomnia, unspecified Sinusitis Qualifiers: Sinusitis location: unspecified location Chronicity: acute Recurrence: non-recurrent Qualified Code(s): J01.90 - Acute sinusitis, unspecified Patient Disposition: Home Condition: Stable Instructions: Antibiotic Form, Sinusitis (ED), Insomnia (ED) Additional Instructions: Take the antibiotics as directed and complete the course even if you start to feel better. You may use a Neti pot saline rinse 3 times a day with lukewarm distilled water Continue to take Tylenol as needed for pain or fevers. Follow instructions on the bottle. Use a humidifier or vaporizer at night. Drink plenty of water. 8-10 glasses per day. Use flonase 2 times per day for 5 days then as needed Take mucinex 2 times per day and be sure to take with 8oz of water. Follow up with Primary provider in 3-5 days Please go to the ER if he develops any difficulty breathing, worsening symptoms, chest pains, fevers, vomiting, or any other concerns Try taking melatonin at night to help with insomnia. Follow-up with your PCP about your sleep problems. Patient Language: Luxembourgish Prescriptions: New doxycycline monohydrate 100 mg capsule 100 mg PO BID 7 Days Qty: 14 0RF No Action potassium chloride 20 mEq Tablet Extended Release 20 meq PO DAILY albuterol sulfate [ProAir HFA] 90 mcg/actuation HFA aerosol inhaler 1 inh INHALATION Q4H PRN (Reason: Shortness Of Breath) Qty: 25.5 3RF Tafinlar 75 mg capsule 75 mg PO Q12H Mekinist 2 mg tablet 2 mg PO DAILY Rx Instructions: must be taken on empty stomach, at least 1 hr before or 2-3 hrs after meal/food mecobalamin (vitamin B12) 500 mcg tablet,chewable 500 mcg PO DAILY cholecalciferol (vitamin D3) 50 mcg (2,000 unit) capsule 50 mcg PO DAILY hydrochlorothiazide 25 mg tablet 37.5 mg PO DAILY 90 Days Qty: 150 1RF (DME) Accu-Chek Guide test strips Strip See Rx Instructions .Route Qty: 200 1RF Rx Instructions: BID dapagliflozin propanediol [Farxiga] 10 mg tablet 10 mg PO DAILY Qty: 100 1RF (DME) lancets [Lancets,Ultra Thin] Misc See Rx Instructions .Route Qty: 200 1RF Rx Instructions: Use to check BS BID Trelegy Ellipta 100-62.5-25 mcg blister with device See Rx Instructions .ROUTE .COMPLEX Qty: 180 3RF Dose Instruction: USE 1 INHALATION BY MOUTH DAILY RINSE AND SPIT Rx Instructions: USE 1 INHALATION BY MOUTH DAILY RINSE AND SPIT alprazolam 1 mg tablet 1 mg PO HS Qty: 90 1RF amlodipine 10 mg tablet 10 mg PO DAILY Qty: 100 1RF simvastatin 20 mg tablet 20 mg PO HS Qty: 100 1RF metformin 500 mg tablet extended release 24 hr 500 mg PO BID Qty: 180 1RF sertraline 50 mg tablet 50 mg PO HS Qty: 90 1RF Follow-up/Referrals: Kathya Orona DO [Primary Care Provider, [facility]] Time of Disposition: 10:44
== END 2025-06-25 10:51 | disposition home or self-care (01) ==
PROVIDERS: PCP Family Medicine
DX: G47.00 Insomnia, unspecified (principal); J01.90 Acute sinusitis, unspecified; E78.5 Hyperlipidemia, unspecified; I10 Essential (primary) hypertension; Z87.891 Personal history of nicotine dependence; Z79.899 Other long term (current) drug therapy; Z85.07 Personal history of malignant neoplasm of pancreas
CPT/HCPCS: 99213; G0463

== ENCOUNTER 2025-07-06 08:02 | Outpatient (CLI) | payer MEDICARE, MEDICAID, SELFPAY ==
--- OUTSIDE RECORDS SUMMARY | 2005-06-26 18:00 | XMS_ITS | Continuity of Care Document ---
Author Organization [facility] Address [address] [place] [address] Phone Care Team Providers Care Head Stock Transfer Clerk Name Role Phone Markus De La Fuente MD Unavailable Unavailable Advance Directives Directive Yes / No Effective Date File Name No Information Encounters Encounter Description Practice Location Reason(s) For Visit Diagnoses Date Provider Providers Copied on Encounter [facility], [address], [place], [place], [id number], [place] tel:[phone] [facility] CERVICAL DISC DISPLACMNTOTH ADV EFF MED/BIO SUB Leisa Aparicio. [address] , [place], [place], [id number], [place]. tel:[phone] Family History Family Member Type Diagnosis Age At Onset No Information Payers Payer name Insurance type Covered constitution party ID Authoriza tion(s) No Information Social History Type Description Quantity Date Captured Comments Sex Female Smoking Status No Information Chief Complaint And Reason For Visit No Information Reason For Referral Reason For Referral No Information History Of Present Illness Encounter Date Complaint History Of Prese nt Illness No Information Functional Status Date Functional Assessmen t No Information Instructions Date Instruction Additional Infor mation No Information Assessments Type Assessment Date No Information Patient Care Teams Name Effective Dates (start - stop) Status Members No Information
--- OUTSIDE RECORDS SUMMARY | 2025-04-26 08:45 | XMS_ITS | Continuity of Care Document ---
Author Organization [facility] Address [address] [place] [address] Phone Care Team Providers Care Photography Manager Name Role Phone Ilya QUINTANA, FACC, Miroslava [...] Effective Dates (start - stop) Status Comments Mekinist 2 mg tablet take 1 tablet by oral route every day 2 MG - Active Tafinlar 75 mg capsule take 2 capsule by oral route every 12 hours at least 1 hour before or 2 hours after meals 150 MG - Active ferrous sulfate 325 mg (65 mg iron) tablet take 1 tablet by oral route every day 325 MG - Active Vitamin B-12 500 mcg tablet take 1 tablet po once daily - Active simvastatin 20 mg tablet take 1 tablet b y oral route every day in the evening 20 MG - Active sertraline 50 mg tablet take 1 tablet by oral route every day 50 MG - Active potassium chloride ER 20 mEq tablet,extended release take 1 tablet by oral route 2 times every day with food 20 MEQ - Active metformin 500 mg tablet take 1 tablet by oral route 2 times every day with morning and evening meals 500 MG - Active hydrochlorothiazide 25 mg tablet take 0.5 tablet by oral route every day 12.5 MG - Active dicyclomine 20 mg tablet take 1 tablet b y oral route 2 times every day 20 MG - Active Farxiga 10 mg tablet take 1 tablet by oral route every day in the morning 10 MG - Active amlodipine 10 mg tablet take 1 tablet by oral route every day 10 MG - Active alprazolam 1 mg tablet take 1 tablet by oral route every day 1 MG - Active Ventolin HFA 90 mcg/actuation aerosol inhaler inhale 2 puff by inhalation route every 4 - 6 hours as needed as needed 180 MCG - Active Procedures Procedure Date Complex e/m visit add on OFFICE/OUTPATIENT VISIT, EST Complex e/m visit add on OFFICE/OUTPATIENT VISIT, NEW Advance Directives Directive Yes / No Effective Date File Name No Information Encounters Encounter Description Practice Location Reason(s) For Visit Diagnoses Date Provider Providers Copied on Encounter OFFICE/OUTPA TIENT VISIT, [facility], [address] [place] [address], [id number] , tel:[phone] [facility] PT IS HERE FOR F/UP (chief complaint) HTNChest painDM type IIDyspneaHyperlipidem ia Ilya Colorado. [address], [place], [place], [id number] , . tel: [phone] Primary Practice Provider: Ad bell, [address] [facility] [address], [place], [place], [facility]. tel:[phone] erring Provider: Pedro Pablo Stearns, [address] [facility] [address], [place], [address]. tel:[phone] OFFICE/OUTPA TIENT VISIT, [facility], [address] [place] [address], [id number] , tel: [phone] [facility] New Patient (chief complaint) DM type IIHyperlipidemiaHTNBo dy mass index [BMI] 27.0-27.9, adultCOPDHx of smokingDyspneaChest painOther specified hepatic cancer Ilya Colorado. [address], [place], [place], [id number] , . tel:[phone] Referring Provider: Pedro Pablo Stearns, [address] [facility] [address], [place], [place], [facility]. tel:[phone] Family History Family Member Type Diagnosis Age At Onset Problem (finding) Family history of Hyper tension Problem (finding) Family history of Cance r, prostate Problem (finding) Family history of [place] ed[place] Problem (finding) Family history of Diabe shannan mellitus Payers Payer name Insurance type Covered constitution party ID Authormax ramos(s) [facility] 001A PPO C [id number] HEALTHCARE AND FAMILY SERVICES [id number] Social History Type Description Quantity Date Captured Comments Alcohol Use Details Unknown Caffeine Use Details Unknown Tobacco Use Status Smoking Status No Information Sex Female Vital Signs Date / Time: Height Weight BMI Pulse Rate Blood Pressure Temperature Respiratory Rate Body Surface Area Head Circumference Head Circ. Percentile Wt./Junaid. Percentile BMI percentile Pulse Ox Inhaled Ox 2:51 PM 62.00 in 65.589 kg (144.60 lbs) 26.4 5 kg/m eter (2) 81 /min 136/93 mm[Hg] 97 % Chief Complaint And Reason For Visit From encounter dated '04/26/2025 14:45'. PT IS HERE FOR F/UP (chief complaint) Reason For Referral Reason For Referral No Information Plan Of Treatment Date Type Action Status Goal Dietary manageme nt education, guidance, and counseling completed Future Order: Radiology Order St res[facility] Imaging Camera ([id number]), Ordered on: Ordered History Of Present Illness Encounter Date Complaint History Of Prese nt Illness PT IS HERE FOR F/UP New Patient Functional Status Date Functional Assessmen t No Information Instructions Date Instruction Additional Infor mation Dietary management e ducation, guidance, and counseling Related to Body mass index [BMI] 27.0-27.9, adult Assessments Type Assessment Date assessment HTN assessment Chest pain assessment DM type II assessment Dyspnea assessment Hyperlipidemia Patient Care Teams Name Effective Dates (start - stop) Status Members No Information
--- NOTE | ~2025-07-06 | CT_ITS ---
EXAMINATION: CT chest, abdomen and pelvis with contrast: DATE: 07/06/2025. 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 Status post Whipple procedure. Prior imaging findings of metastatic lesions. TECHNIQUE: CT was performed after oral contrast and administration of 100 cc of IV contrast were obtained. Radiation dose 482 MG Y C.M. COMPARISON: PET/CT dated 03/23/2025. CT chest, abdomen and pelvis dated 03/02/2025. FINDINGS: Moderate emphysematous lungs. Stable peripheral noncalcified nodules in the right lower lobe, 3 to 4 mm each. Stable noncalcified nodule in the left lower lobe basal segment 7.5 mm in long axis. No hilar or mediastinal adenopathy or effusion. Below the diaphragm, segment 2 left lobe of the liver mass measures long axis of 5.2 cm compared with 5.5 cm on 03/02/2025. 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 There is progression of the thrombus into the hepatic portion of the inferior vena cava, more prominent compared with 03/02/2025. Cystic lesions of the liver that are unchanged. Postoperative changes of Whipple procedure is noted again. No retroperitoneal adenopathy. Within the pelvis, large, cystic mass in the lower right abdomen and right pelvis with an enhancing solid portion is noted measuring long axis of 9 cm compared with 4.3 cm on 03/02/2025. No free fluid in the pelvis. No lytic of blastic bone changes of thoracic spine, lumbosacral spine and the pelvis. IMPRESSION: 1. Stable findings in the chest with small noncalcified nodules in both lungs as described above. 3 to 4 mm nodules of right lung and 7.5 mm nodule of the left lung base are noted. 2. Postoperative changes of Whipple procedure. 3. Although the mass of the left lobe of liver segment 2 is unchanged in size from 07/03/2025, tumor thrombus extending along left hepatic vein into the hepatic portion of inferior vena cava is noted with the tumor thrombus in the hepatic portion of inferior vena cava more prominent compared with the findings on 03/02/2025. 4. Definite increase in size of the complex part solid and part cystic mass in the lower right abdomen and right pelvis compared with 03/02/2025. Current long axis diameter of 9 cm compared with 4.3 cm on 03/02/2025. 5. Overall, evidence of disease progression compared with the scan of 03/02/2025. Reviewed, dictated and finalized at location [facility] [employer] [employer] IMPRESSION: 1. Stable findings in the chest with small noncalcified nodules in both lungs a s described above. 3 to 4 mm nodules of right lung and 7.5 mm nodule of the lef t lung base are noted. 2. Postoperative changes of Whipple procedure. 3. Although the mass of the left lobe of liver segment 2 is unchanged in size f rom 07/03/2025, tumor thrombus extending along left hepatic vein into the hepat ic portion of inferior vena cava is noted with the tumor thrombus in the hepati c portion of inferior vena cava more prominent compared with the findings on . 4. Definite increase in size of the complex part solid and part cystic mass in the lower right abdomen and right pelvis compared with 03/02/2025. Current long axis diameter of 9 cm compared with 4.3 cm on 03/02/2025. 5. Overall, evidence of disease progression compared with the scan of 03/02/2025 .
--- OUTSIDE RECORDS SUMMARY | 2025-07-06 08:09 | XMS_ITS | Data Portability ---
Author Organization [place] - [employer], Main Office Address [address] [place] [address] Assessment Encounter Date Assessment Date Assessment LastModified by Organization Details LastModified Time 02/18/2025 02/18/2025 Assessment: Nicotine smoke: / ppd 4157-9365 = 15 pack years Mod COPD Bilateral [...] done as follows: Respiratory allergen panel for [facility] Serum IgE Serum total IgG, IgG1, IgG2, IgG3, IgG4 Fvjin-2-msldogtqja n phenotype and level TB stimulated gamma [...] PCP for further management. Follow-up: 3 weeks Not available 02/20/2025 15:08:52 03/11/2025 03/11/2025 Assessment: Nicotine smoke: 1/2 ppd 6544-2327 = 15 pack years Mod COPD PASP 38 mmHg Bilateral pulmonary nodules Atelectasis Plan: The following were reviewed and explained to the patient: Erick dyspnea labs 03/02/25 wnl V/Q scan 02/09/25 low probability for P. [...] hemidiaphragm elevation but normal test, mild atelectasis Her eosinophils are 0.0 on 03/02/25 but she took 3 doses of prednisone just prior to CT of chest, abdomen and pelvis on 03/02/25. Will repeat eosinophil count when patient is at least one month from the last dose of prednisone. Six minute walk study carried out. Patient covered 708 feet at a slow pace in 6 minutes. Patient tolerated walk well with one stop due to dyspnea. Pulse oximeter reading dropped from 94% to 90% with exercise. Oxygen supplementation is not needed to keep saturation at 89% or higher during exertion. Pulmonary rehabilitation may be included in the [...] The patient's FEV1 is 57%. The patient is enrolled in [facility]. General concepts of pulmonary rehabilitation were explained. She will start her pulmonary rehabilitation on 04/02/25. Referral to cardiology for right and left heart catheterization. Advised to continue not to smoke. Continue [...] records to PCP for further management. Follow-up: 1 week after cardiology consult Not available 03/11/2025 16:10:25 Plan of Treatment Reminders Order Date Submit Date Provider Last Modified By Organization Details Last Modified Time Details Appointments None recorded. Lab alpha-1-ant itrypsin (aat) phenotype, serum 2024 025 [email or web address] 82 [facility], [address], [place], [address], 5 17:14:29 BNP (B-type natriuretic peptide), serum or plasma 2024 025 YEFRI [facility], [address], [place], [address], 5 17:52:29 ige, total, serum 2024 025 [email or web address] 82 [facility], [address], [place], [address], 5 17:14:54 tb (M tuberculosi s), ifn-gamma uma, blood 2024 025 noni 82 [facility], [address], [place], [address], 5 17:15:05 igg subclasses 1+2+3+4, serum 2024 025 [email or web address] 82 [facility], [address], [place], [address], 5 17:15:16 respiratory allergen panel, [facility] A, serum 2024 025 [email or web address] 82 [facility], [address], [place], [address], 5 17:15:28 respiratory allergen panel - [facility] b 2024 025 [email or web address] 82 [facility], [address], [place], [address], 5 17:15:40 eosinophils , quant, blood 2024 025 noni 82 [facility], [address], [place], [address], 5 17:15:54 pro BNP (pro B-type natriuretic peptide), serum or plasma 2024 025 noni 82 [facility], [address], [place], [address], 5 17:16:06 alpha-1-ant itrypsin (aat), QN, serum 2024 025 [email or web address] 82 [facility], [address], [place], [address], 5 17:16:17 HbA1c (hemoglobin A1c), blood 2023 024 [place] [facility], [address], [place], [address], 4 14:51:44 hemoglobin A1C, fingerstick [address], [place], [address], 3 11:56:57 hemoglobin A1C, fingerstick [address], [place], [address], 3 12:50:52 Referral cardiologis t referral - right and left heart catheteriza tion; PASP 38 mmHg 2024 025 [email or web address] 82 [facility] Referral Fax Line, [address] [facility], [facility] [address], [place], [address], 5 08:24:07 pulmonary rehab referral - Please call patient to schedule. 2024 025 [email or web address] 82 [facility], [address], [place], [address], 5 08:21:05 Procedures None recorded. Surgeries None recorded. Imaging None recorded. Medication Orders albuterol sulfate HFA 90 mcg/actuati on aerosol inhaler 2024 025 YEFRI [facility], [address] , [place], [address], 5 16:05:38 Trelegy Ellipta 100 mcg-62.5 mcg-25 mcg powder for inhalation 2024 025 YEFRI [facility], [address] [facility], [place], [address], 5 16:05:38 albuterol sulfate HFA 90 mcg/actuati on aerosol inhaler 2024 025 YEFRI [facility] [address] [facility], [address] [place] [address], [place], [address], 5 16:03:11 Trelegy Ellipta 100 mcg-62.5 mcg-25 mcg powder for inhalation 2024 025 YEFRI [facility] [address], [address] [place] [address], [address], 5 16:03:08 metformin ER 500 mg 24 hr tablet,exte nded release (gastric retention) 2022 023 [email or web address] [facility] [address], [address], 3 10:42:15 Januvia 100 mg tablet 2022 023 [facility] [address], [address], 5 15:06:29 metformin ER 500 mg 24 hr tablet,exte nded release (gastric retention) 2022 023 [email or web address] [facility] [address], [address], 3 10:42:15 Patient TargetsNo targets recorded. Patient Instructions Encounter Date Encounter Id Patient Instructions Last Modified By Organization Details Last Modified Time 07/17/2023 [id number] reviewed diet [email or web address] Not availabl e 07/28/2023 09:50:07 Reason for Referral Pulmonary Rehab Referral for Moderate chronic obstructive pulmonary disease Please call patient to schedule. 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 Referral for Dy spnea on exertion right and left heart catheterization; PASP 38 mmHg Referring Physician: Pedro Pablo Stearns, Pulmonary Disease, Encounter Date: 03/11/2025 Results Created Date Observation Date Name Description Value Unit Range Abnormal Flag Note LastModifiedBy Organization Detail LastModifiedTime 04/01/2004/01/2023 hemog lobin A1C, finge rstic k HgbA1C 14 Not Available [address], [place], [address], 04/01/2023 12:27:07 07/17/20 23 07/17/2023 hemog lobin A1C, finge rstic k HgbA1C 7.3% Not Available [address], [place], [address], 07/17/2023 11:45:37 05/10/20 23 05/10/2023 CT, abdom en + pelvi s, w/ contr ast No observ ation record ed. [email or web address] [place] [address], [address], 05/14/2023 09:26:03 05/28/20 23 05/28/2023 PET, skull base to mid-t high No observ ation record ed. [address], [address], 05/29/2023 12:47:13 07/23/20 23 07/23/2023 MRI, abdom en, w/o contr ast No observ ation record ed. [address] [place] [address], [address], 08/21/2023 16:04:02 08/19/19 24 08/19/2023 CT, abdom en + pelvi s, w/ contr ast No observ ation record ed. [address], [address], 08/21/2023 16:04:03 09/06/19 24 09/06/2023 MRI, brain + brain stem, w/wo contr ast No observ ation record ed. [email or web address] [address], [place], [address], 09/10/2023 12:14:57 11/19/19 24 11/19/2023 PET, brain scan, metab olic evalu ation No observ ation record ed. [email or web address] [facility] [address] [facility] [address], [place], [address], 11/21/2023 10:45:08 02/16/20 25 02/09/2025 NM, lung scan, venti latio n/per fusio n No observ ation record ed. BARCODE Not Available 2024 17:50:22 02/16/20 25 11/23/2024 CT, angio gram, chest + abdom en + pelvi s, w/ contr ast No observ ation record ed. BARCODE Not Available 2024 18:20:51 02/16/20 25 10/21/2024 compl ete PFT w/ [facility] hodil ator chu metry * No observ ation record ed. BARCODE Not Available 2024 18:20:51 02/27/20 25 11/12/2024 Sniff Nasal Inspi rator y press ure* No observ ation record ed. BARCODE Not Available 2024 11:38:39 02/27/20 25 01/26/2025 US, doppl er echoc ardio gram No observ ation record ed. BARCODE Not Available 2024 11:44:06 03/12/20 25 03/11/2025 6 minut e walk test* No observ ation record ed. BARCODE Not Available 2024 18:19:48 04/15/20 25 03/31/2025 6 minut e walk test* No observ ation record ed. BARCODE Not Available 2024 18:37:27 Result Notes None recorded. Problems Name Problem SNOMED Code Status Onset Date Resolution Date Notes Provider Name and Address Organization Details Recorded Time Depressive disorder 52527952 Active Pedro Pablo Stearns MD [address], [address], [place], [address], [employer] 5 08:07:59 Neuropathy 620721407 Active Pedro Pablo Stearns MD [address], [address], [place], [address], [employer] 5 08:07:54 Anxiety 64235750 Active Pedro Pablo Stearns MD [address], [address], [place], [address], [employer] 5 08:08:03 Hyperlipidemia 93305112 Active Pedro Pablo Stearns MD [address], [address], [place], [address], [employer] 5 08:07:56 Allergic rhinitis 59559862 Active Pedro Pablo Stearns MD [address], [address], [place], [address], [employer] 5 08:08:06 Essential hypertension 27704678 Active 2022 Pedro Pablo Stearns MD [address], [address], [place], [address], [employer] 5 08:07:57 COVID-19 442347071 Active 2022 Nancy Ashford MD [address], [address], [place], [address], [employer] 3 11:37:11 Type 2 diabetes mellitus 60745507 Active 2023 Pedro Pablo Stearns MD [address], [address], [place], [address], [employer] 5 08:07:52 Moderate chronic obstructive pulmonary disease 095516120 Active 2024 Pedro Pablo Stearns MD [address], [address], [place], [address], [employer] 5 15:44:41 Notes:Medical History: Anxie ty/Depression COVID infection Rhinitis Eosinophils 0/uL IgE 50 IU/mL AAT PiMM 136 mg% Mod COPD, exertional O2 c/o Citizen Of [place] Home Patient Chronic right hemidiaphragm elevation Atelectasis PASP 38 mmHg Hypertension EF 60% Hyperlipidemia T2DM with neuropathy LAMBERTO 1:40 Bilateral pulmonary nodules Hiatal hernia with KIMMY H. 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 Medical Equipment None Reported. Allergies Allergen ID Allergen Name Allergen Category Reaction Reaction Severity Criticality Documentation Date Start Date Code Code System Note Provider Name and Address Organization Details Recorded Time 78428 Substance with sulfonami de structure and antibacte rial mechanism of action (substanc e) medicatio n dizziness Not available Not available 10/10/2022 66481 8003 SNOMED Not Available [facility] 3 08:53:14 27573 Product containin g penicilli n (product) medicatio n itching Not available Not available 10/10/2022 29518 8001 SNOMED Not Available [facility] 3 08:53:14 84652 erythromy rae medicatio n Not available Not available Not available 10/10/2022 4053 RxNorm BERTA Ortez, [facility] [employer] 5 15:04:15 11445 amoxicill in medicatio n itching Not available Not available 10/10/2022 723 RxNorm Not Available [facility] 3 08:53:14 07618 Substance with macrolide structure and antibacte rial mechanism of action (substanc e) medicatio n itching Not available Not available 02/15/2025 57910 0009 SNOMED Pedro Pablo Stearns MD [address] [place] [address], [place] [address], [place], [address] [place] [address] [employer] 5 13:06:42 82960 naproxen medicatio n rash Not available Not available 02/15/2025 7258 RxNorm Pedro Pablo Stearns MD [address], [place], [address], [employer] 5 13:08:09 73654 Iodinated contrast media (substanc e) medicatio n hives Not available Not available 02/15/2025 45021 2004 SNOMED Pedro Pablo Stearns MD [address] [facility], [address], [place], [address], [employer] [facility] 5 13:08:53 77919 iohexol medicatio n itching Not available Not available 02/15/2025 5956 RxNorm Pedro Pablo Stearns MD [address], [address], [place], [address], [employer] 5 13:09:25 04421 gadobenic acid Not available itching Not available Not available 02/15/2025 Pedro Pablo Stearns MD [address], [facility] [address], [place], [address], [employer] 5 13:09:36 Medications Name Sig Start Date [...] 80 mg/mL suspensio n for injection active [facility]#[id number] [id number] Not Available Not Available Not [...] rate Body temperature Heart rate Oxygen saturation Systolic And Diastolic Provider Name and Address Organization Details Last Updated DateTime 157.48 cm 28.3 kg/m2 93614.8 2 g 16 /min 97.3 [degF] 83.99 /min 98 % 124/86 mm[Hg] Merna Hernandez, JESSICA [facility] [employer] 4 11:14:22 Date Recorded Oxygen saturation Body mass index (BMI) Body height Heart rate Respiratory rate Provider Name and Address Organization Details Last Updated DateTime 02/18/2025 97 % 27.3 kg/m2 156.21 cm 83 /min 15 /min Pedro Pablo Stearns MD [address] [facility], [address], [place], [address], [employer] 15:26:32 Date Recorded Body weight Body temperature Heart rate Systolic And Diastolic Provider Name and Address Organization Details Last Updated DateTime 02/18/2025 04151.08 g 98.1 [degF] 83 /min 128/84 mm[Hg] Paige Salas MA [employer] [facility] [employer] 02/18/2025 15:14:51 Date Recorded Heart rate Respiratory rate Provider N lula and Address Organization Details Last Updated DateTime 03/11/2025 74 /min 14 /min Pedro Pablo Stearns MD [address] [facility], [facility] [address], [place], [address], [facility] [employer] 03/11/2025 15:32:23 Date Recorded Body height Body mass index (BMI) Body weight Body temperature Heart rate Oxygen saturation Systolic And Diastolic Provider Name and Address Organization Details Last Updated DateTime 5 156.21 cm 27.9 kg/m2 42859.8 6 g 98.7 [degF] 74 /min 94 % 112/78 mm[Hg] Paige Salas MA [facility] [employer] 5 15:02:35 Date Recorded Body height Body mass index (BMI) Body weight Body temperature Heart rate Oxygen saturation Systolic And Diastolic Provider Name and Address Organization Details Last Updated DateTime 3 157.48 cm 30.2 kg/m2 17356.7 4 g 97.5 [degF] 90 /min 97 % 110/72 mm[Hg] Kayleigh ayon CMA [facility] [employer] 3 12:12:37 Date Recorded Body height Body mass index (BMI) Body weight Body temperature Heart rate Oxygen saturation Respiratory rate Systolic And Diastolic Provider Name and Address Organization Details Last Updated DateTime 3 157.48 cm 29.3 kg/m2 85670.7 8 g 97.6 [degF] 89 /min 98 % 16 /min 136/84 mm[Hg] Merna Hernandez RN [facility] [employer] 3 11:30:35 Social History Question Answer Notes LastModified by Organizat ion Details LastModified Time Tobacco Smoking Status Former Smoker Paige Salas MA null, [employer] [facility] [employer] 02/18/2025 15:10:47 What Is Your Level Of [...] 02/18/2025 When Did You Quit Smoking? 16+yearssincel astcigarette Information not available 02/18/2025 Do You Have A Humidifier? Yes Information not available 02/18/2025 Do You Have Moisture Problems In Your Home? Yes Basement Information not available 02/18/2025 What Was The Date Of Your Most Recent Tobacco Screening? 03/11/2025 Information not available 03/11/2025 Do You Have Any Pets? No Information [...] anxious, or unable to sleep at night)? [id number] Information not available 02/18/2025 Family History Relationship Description Onset Age of this Age Resolved Age Notes LastModified by Organization Details LastModified Time Father Leukemia [email or web address] Not available 0 02/15/2025 13:05:57 Mother Cirrhosis of liver [email or web address] Not available 2024 13:06:09 Medical History No medical history recorded. Gynecological HistoryNo gynecological history recorded. Obstetrics History GPAL:G 0 P 0 0 0 0 Immunizations Vaccine Type Date Status Note Provider Nam e and Address Organization Details Recorded Time Influenza, split virus, quadrivalent, PF 05/28/2018 completed Not Available [facility] 3 08:53:10 Influenza, split virus, quadrivalent, PF 06/25/2017 completed Not Available [facility] 3 08:53:10 Past Encounters Encounter ID Performer Location Encounter Start Date Encounter Closed Date Diagnosis/Indication Diagnosis SNOMED-CT Code Diagnosis ICD10 Code Diagnosis IMO Codes Diagnosis Note [id number] Rosibel Muse MD [facility] [place] [address] [place] [address] 01/03/2021 00:00:00 01/03/2021 20:10:24 [id number] Rosibel Muse MD [facility] [place] [address] [place] [address] 04/07/2021 00:00:00 04/08/2021 10:18:03 [id number] Rosibel Muse MD [facility] [place] [address] [place] [address] 06/08/2021 00:00:00 06/08/2021 13:20:50 [id number] Rosibel Muse MD [facility] [place] [address] [place] [address] 11/02/2021 00:00:00 11/02/2021 19:44:37 [id number] Rosibel Muse MD [facility] [place] [address] [facility] [place] [address] 11/16/2021 00:00:00 11/16/2021 21:32:45 [id number] Rosibel Muse MD [facility] [place] [address] [facility] [place] [address] 12/10/2022 14:41:31 12/10/2022 15:20:19 Edema of lower extremity 878559448 R60.0 Compressio n stockings. elevate legs. Watch salt in diet. Low back pain 062267607 M54.50 Ventral in cisional hernia 734228287 K43.2 [id number] Rosibel Muse MD [facility] [place] [address] [place] [address] [place] [address] 03/19/2023 16:12:31 03/19/2023 16:49:01 Chronic urticaria 79451511 L50.8 Use zyrtec. Will send to marriage counselor minister [id number] Rosibel Muse MD [facility] [place] [address] [address] [place] [address] [place] [address] 04/01/2023 12:03:23 04/01/2023 12:38:06 Uncontrolled type 2 diabetes mellitus 799259078 E11.65 A1C is >14%. New onset DM2. Will start metformin Will f/u in 3 months. Needs to watch carbs in diet and also pamphlets given out for DM. [id number] Rosibel Muse MD [facility] [address] [address] [address] [place] [address] [place] [address] 07/17/2023 11:25:10 07/17/2023 12:00:58 Uncontrolled type 2 diabetes mellitus 152304810 E11.65 [id number] Rosibel Muse MD [facility] [address] [place] [address] [place] [address] 10/16/2023 11:06:30 10/16/2023 11:28:23 Type 2 diabetes mellitus 28083205 E11.9 Allergic rhinitis 380888 04 J30.9 Anxiety 45471244 F41.9 Arthritis 4381321 M19.90 Depressive disorder 3548 9007 F32.A Essential hypertension 48435588 I10 Hyperlipidemia 66042395 E78.5 Low back pain 629284910 M54.50 Neuropathy 876739098 G62 .9 [id number] Pedro Pablo Stearns MD [facility] [address] 02/18/2025 14:30:45 02/23/2025 15:11:24 Moderate chronic obstructive pulmonary disease 220660751 J44.9 592936 Dyspnea on exertion 6084 5006 R06.09 R05.3 J30.2 D89.9 [id number] Pedro Pablo Stearns MD [place] [address] 03/11/2025 14:01:37 03/15/2025 16:25:45 Moderate chronic obstructive pulmonary disease 811419745 J44.9 049537 Dyspnea on exertion 6084 5006 R06.09 [id number] Health Concerns Section Related Observation LastModified by Organization Detai ls LastModified Time None Recorded Concern Status LastModified by Organization Details LastModified Time None Recorded Advance Directives Directive None Recorded Payers Insurance Date Sequence Insurance Name Policy Number Policy Mcrae Covered Member ID Mcrae Member ID Guarantor Name 03/15/2025 2 [place] [facility] Krissy Oneal [id number] Krissy Oneal 03/15/2025 1 [facility] (MEDICARE REPLACEMENT/A DVANTAGE - HMO) [id number] Krissy Oneal [id number] Krissy Oneal Notes Date Note Type Note Provider Name and Address Organization Details Recorded Time 04/01/2023 text/html Here today for high BS [...] fatigued a lot. Rosibel Muse MD [address] [employer], [place], [address], [employer] 04/01/2023 20:57:05 07/17/2023 text/html ROS as noted in the HPI here for f/u TRAVIS Samano [address], [place], [address], [employer] 07/28/2023 09:50:11 10/16/2023 text/html ROS as noted in the HPI no changes TRAVIS Samano [address], [place], [address], [employer] 10/26/2023 21:20:45 02/18/2025 text/html Primary care/Referring provider: Ashley Gardiner NP; Yessenia Chavez MD Patient is here to go over her mod COPD management. Initial development of shortness of breath: 2014Duration of shortness of breath: 11 yearsCondition of shortness of breath: worseningTiming of shortness of breath: noneFrequency: up to 5 times a dayLimits activities: yesAggravating factors: walking to [employer] Pharm[employer]box a the end of driveway, taking a shower, getting dressed, talking on the phone, sweeping/mopping the floorAlleviating factors: rest Modified Medical Research Beatrice (mMRC) Dyspnea Scale - Grade 2Grade 0 [...] noEdema: yes Environmental exposures:Nicotine smoke: 1/2 ppd 0220-5285 = 15 pack yearsPaint: noDye: noDust mites: [...] chance of dozing. Pedro Pablo Stearns MD [address] [place] [address], [address], [place] [facility] 02/20/2025 15:14:25 03/11/2025 text/html Primary care/Referring provider: Ashley Gardiner NP; Yessenia Chavez MD; Royal Newell MD Patient is here to go over her mod COPD management. Initial development of shortness of breath: 2014Duration of shortness of breath: 11 yearsCondition of shortness of breath: worseningTiming of shortness of breath: noneFrequency: up to 5 times a dayLimits activities: yesAggravating factors: walking to mailbox a the end of driveway, taking a shower, getting dressed, talking on the phone, sweeping/mopping the floorAlleviating factors: rest Modified Medical Research Beatrice (mMRC) Dyspnea Scale - Grade 2Grade 0 [...] noEdema: yes Environmental exposures:Nicotine smoke: 1/2 ppd 7230-4909 = 15 pack yearsPaint: noDye: noDust mites: [...] chance of dozing. Pedro Pablo Stearns MD [address] [facility], [place] [address], [place], [address], [facility] 03/11/2025 16:11:05 OBGyn Episode No OBEpisode recorded.
[2025-07-06 09:00] LABS: Hematocrit 37.1 % (37.0-47.0); Hemoglobin 12.1 g/dL (12.0-15.0); Immature Granulocyte Percent A 0.6 % (0-0.5); Lymphocytes Absolute Auto 1.34 K/mm3 (0.9-3.2); Mean Corpuscular HGB Conc 32.6 g/dl (32-36); Mean Corpuscular Hemoglobin 27.5 pg (26-34); Mean Corpuscular Volume 84.3 fl (80-100); Nucleated Red Blood Cells Absolute Auto 0.000 K/mm3 (0.0-0.012); Nucleated Red Blood Cells Perc 0.0 % (0.0-0.2); Platelet Count Result 210 k/mm3 (150-375); Red Blood Count 4.40 M/mm3 (4.2-5.4); White Blood Count 5.2 K/mm3 (4.5-10.0)
[2025-07-06 09:22] LABS: Alanine Aminotransferase 37 U/L (6-35); Albumin Level 4.2 g/dL (3.5-5.1); Alkaline Phosphatase 108 U/L (38-126); Anion Gap 7 mmol/L (4-12); Aspartate Amino Transferase 37 U/L (14-36); Bilirubin,Total 0.4 mg/dL (0.2-1.3); Blood Urea Nitrogen 15 mg/dL (7-17); Calcium 9.5 mg/dL (8.4-10.2); Carbon Dioxide 30 mmol/L (22-30); Chloride 99 mmol/L (98-107); Estimated Glomerular Filt Rate > 60; Glucose 130 mg/dL (65-110); Potassium 3.6 mmol/L (3.4-5.0); Sodium 136 mmol/L (137-145); Total Protein 7.7 g/dL (6.3-8.2)
[2025-07-07 07:08] LABS: CA 19-9 43 U/mL (0-35)
== END 2025-07-06 08:03 | disposition home or self-care (01) ==
LOC: ANHIMG 08:06
PROVIDERS: PCP Family Medicine; Visit Provider Internal Medicine Hematology & Oncology
DX: C24.1 Malignant neoplasm of ampulla of Vater (principal)
CPT/HCPCS: 36415; 36591; 71260; 74177; 80053; 85025; 86301; Q9967

== ENCOUNTER 2025-07-30 13:30 | Outpatient (RCR) | payer MEDICARE, MEDICAID, SELFPAY | END 2025-07-30 23:59 | disposition home or self-care (01) | LOC: ANHCPREHAB 13:30 | PROVIDERS: PCP Family Medicine; Visit Provider Internal Medicine Pulmonary Disease | DX: J44.9 Chronic obstructive pulmonary disease, unspecified (principal) | CPT/HCPCS: 94625 ==